=== PATIENT | male | born 1960 | race Caucasian/White ===

== ENCOUNTER 2024-10-29 10:02 | Outpatient (CLI) | payer MEDICARE, MEDICAID, SELFPAY ==
--- OUTSIDE RECORDS SUMMARY | 2024-09-30 15:29 | XMS_ITS | Encounter Summary ---
Author Organization Healthcare Address [address] [place] [address] Care Team Providers Care Transcription Name Role Phone Leonard Botello MD Primary Care Provider [phone] Minnie Penn RN Unavailable Unavailab le Reason for Visit * Reason Comments Medical Evaluation * Auth/Cert (Routine) Specialty Diagnoses / Procedures Referred By Contac t Referred To Contact Diagnoses ESRD (end stage renal disease) ([facility]) Noncompliance by refusing service Tana Wooten MD [address] [place] [address] Phone: tel: fax: [facility] [address] [place] [address] Phone: tel: Referral ID Status Reason Start Date Expiration Date Visits Re quested Visits Authorized [id number] 1 1 Encounter Details Date Type Department Care Team (Latest Contact Info) Description 09/30/2024 3:29 PM EDT - 10/21/2024 3:10 PM EDT Hospital Encounter [facility] [address] [place] [address] Lesvia Adrian MD [address] [place] [address] Tana Wooten MD [address] [place] [address] Leda Gaitan MD [address] [place] [address] Lamont Brumfield MD [address] [place] [address] Jeannie Valle MD [address] [place] [address] ESRD (end stage renal disease) ([facility]) (Primary Dx); Noncompliance by refusing service; ESRD (end stage renal disease) on dialysis ([facility]); Declining functional status [facility] [...] place to sleep or slept in a fpc (including now)? No 04/17/2023 Humiliation, Afraid, Rape, [...] any time in the past 12 m [facility], were you homeless or living in a fpc (including now)? 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) to steady your nerves or to get [...] Attempts (Lifetime) No 4:57 PM EDT Maxine Nuñez RN Aborted or Self-Interrupted Attempt (Lifetime) No [...] needs identified Patient/Family Anticipated Services at Transition: detention Patient/Family Anticipates Transition to: long-term care facility Taken 10/21/2024 0914 by Birdie Damico RN Current Discharge Risk: chronically ill cognitively impaired Patient's Choice of Community Agency(s): [facility] Problem: Skin Injury Risk Increased Goal: Skin [...] Glycemic Control Flowsheets (Taken 10/20/2024 1226 by pAril Merida, RN) Hyperglycemia Management: blood glucose monitored [...] PCP name and Address: Leonard Botello MD [address] [place] [address] Referring provider name and address: No referring provider defined for this encounter. Chief Concern, Brief History of Present Illness, and Hospital Course Per H and P; 64 y.o. male with past history of ESRD on HD MWF, T2DM, HTN, chronic HFrEF, PAD, HLD, IDD/dementia, depression/anxiety, insomnia, chronic HCV, DM foot ulcer c/b OM s/p bilateral transmetarsal amputation, and debility sent from his senior care to ED for medical evaluation after refusing care. Patient is extremely [place] and not wearing hearing aids limiting exam, therefore history obtained from chart review and Mariel (#[phone]) at his senior care. Unable to reach his legal guardian and brother, Chris Fernandez, at #[phone]. She reports that patient transferred a week ago to senior care after residing in a correction for the past year with an increased level of assist. Since arriving patient has been refusing dialysis, to eat, participate, or take his medications. Earlier todayhe missed HD, last session 3 days ago on 09/27/2024. The senior care believes he needs a higher level of [...] ESRD (end stage renal disease) on dialysis ([facility]) Essential (primary) hypertension Type 2 diabetes mellitus with chronic kidney disease on chronic dialysis ([facility]) Wears hearing aid in both ears At high risk for falls Insomnia, unspecified Chronic combined systolic (congestive) and diastolic (congestive) heart failure ([facility]) Dementia ([facility]) Chronic hepatitis C without hepatic coma ([facility]) Arterial insufficiency ([facility]) Gastroesophageal reflux disease without esophagitis Mixed hyperlipidemia Anxiety and depression Mild intellectual disabilities Sensorineural hearing loss, bilateral * (Principal) Declining functional status History of transmetatarsal amputation of foot ([facility]) Electrolyte and fluid disorder Anemia in chronic kidney disease (CODE) Chronic kidney disease-mineral and bone disorder (CKD-MBD) 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 ESRD (end stage renal disease) ([facility]) Aakash Fernandez is a [place] 64 y.o. male with past history of ESRD on HD MWF, T2DM, HTN, chronic HFrEF, PAD, HLD, IDD/dementia, depression/anxiety, insomnia, chronic HCV, DM foot ulcer c/b OM s/p bilateral transmetarsal amputation, and debility sent from his senior care to ED for medical evaluationafter refusing care. Declining functional status - Transferred to senior care a week ago and since arrival refusing HD, to eat, participate, or take medications - sent to ED for medical evaluation and need for higher level of assist/unable to care for self/non-compliance - afebrile, VSS, no acute complaints PLAN - PT/OT consult re: placement - legal guardian is his brother, Chris Fernandez, #[phone] (not answering calls since patient admission) Essential (primary) hypertension - increased carvedilol to 25 mg twice daily, nifedipine XL 60 mg daily (hold for BP <120/80 on dialysis days) At high risk for falls - wheelchair dependent, fall precautions ESRD (end stage renal disease) on dialysis ([facility]) - HD (MWF) - renally dose meds based on EGFR - strict I/O, daily weight Electrolyte and fluid disorder Hyponatremia Chronic kidney disease-mineral and bone disorder (CKD-MBD) - continue Renvela 800 mg TID with meals Anemia in chronic kidney disease (CODE) - Hgb stable, transfuse to keep >7 Type 2 diabetes mellitus with chronic kidney disease on chronic dialysis ([facility]) - last A1c 6.3 PLAN - will dc SSI given minimal Insulin need Dementia ([facility]) - Psych recommended; Asenapine 3.8 mg daily [...] melatonin 3 mg at bedtime Arterial insufficiency ([facility]) - continue aspirin 81 mg daily, clopidogrel [...] systolic (congestive) and diastolic (congestive) heart failure ([facility]) - ECHO 06/27/2022: EF 45%, abnormal diastolic dysfunction - strict I/O, 2 L fluid restriction, cardiac/renal/CCHO2 diet Chronic hepatitis C without hepatic coma ([facility]) - HCV RNA PCR not detected 07/13/2023 History of transmetatarsal amputation of foot ([facility]) - chronic OM 2/2 DM foot ulcers s/p bilateral transmetarsal amputation Dispo : Discharge to [facility] today and transportation to/from [place] to outpatient HD arranged per CM. Getting [...] Note Mundo Fernandez 64 y.o. male CSN: [id number] Admission: 09/30/2024 3:29 PM Primary Problem: Declining functional status Primary Compound Filler: Primary Caregiver: Private caregiver Assistance Available at Discharge: Current Outpatient/Agency/Support Group: clinic(s), DME Availability of Care Givers (#Hours): 24 hours Family/Compound Filler(s) Willingness Assessed to care for patient at home: Yes Family/Compound Filler(s) Readiness Assessed to care for patient at home: Yes Housing Circumstances-Z Codes: Housing Circumstances (select all that apply): Low Income (101-300% Federal Poverty Guidlines) - Z596 Patient Referred to Financial or Community Resources: Discharge Facility/Level of Care Needs: Discharge Facility/Level of Care Needs: [facility] Facility Patient's Choice of Community Agency(s): Patient's Choice of Community Agency(s): [facility] Patient/Family Anticipated Services at Transition: Patient/Family Anticipated Services at Transition: detention DME/Equipment Needed after Discharge: Equipment Currently Used [...] with brother and guardian, Chris Fernandez. Follow-up: [facility] [phone] [address] [place] [address] Go on 10/21/2024 [facility] ([id number] D-TI) [phone] Online [address] [place] [address] Go on 10/23/2024 First HD session at [...] to discharge today. Accepted for LTC by [facility]. Patient brother, legal guardian, Chris Fernandez aware and agrees with discharge and facility. Patient to receive HD (3.5 hr session) today at 0900 before discharge. Beginning Monday10/23/24 patient is scheduled to receive HD at 10:20 every Monday, Monday, and Monday. Facility staff working on setting up transportation to and from HD sessions. Krystyna barrera bedside hot die picker today at 1400. Call report [phone] CM will fax DCS [phone] Escribe controlled meds only to [facility]. CM will continue to follow for dc planning needs. Birdie Damico, TRISTIN * Consults - Gabriele Vanegas - 10/20/2024 5:30 PM EDT Pastoral Care Note [employer] Beauty Advisor visited with Aakash at bedside after consulting with nurse. Aakash's nurse shared he has been down and discouraged with being in the hospital so long. Aakash shared with [employer] Beauty Advisor that he wants to go to another hospital. Aakash has difficulty hearing, [employer] Beauty Advisor was speaking loudly but Aakash respondedwell at first then appeared confused, he pushed call button for nurse. He was able to hear nurse oncall button and the tv but appeared confused or possible scared by [employer] Beauty Advisor. [employer] Beauty Advisor then excused himself, Aakash expressed appreciation. [...] Ongoing, Progressing Intervention: Promote Activity and Functional [place] Flowsheets (Taken 10/20/2024 1226) Activity Assistance Provided: [...] from the original note were not included. [facility] Inpatient Progress Note Patient: Mundo Fernandez [...] Assessment and Plan: Aakash Fernandez is a [place] 64 y.o. male with past history of ESRD on HD MWF, T2DM, HTN, chronic HFrEF, PAD, HLD, IDD/dementia, depression/anxiety, insomnia, chronic HCV, DM foot ulcer c/b OM s/p bilateral transmetarsal amputation, and debility sent from his senior care to ED for medical evaluationafter refusing care. Declining functional status - Transferred to senior care a week ago and since arrival refusing HD, to eat, participate, or take medications - sent to ED for medical evaluation and need for higher level of assist/unable to care for self/non-compliance - afebrile, VSS, no acute complaints PLAN - PT/OT consult re: placement - legal guardian is his brother, Chris Fernandez, #[phone] (not answering calls since patient admission) Essential (primary) hypertension - increased carvedilol to 25 mg twice daily, nifedipine XL 60 mg daily (hold for BP <120/80 on dialysis days) At high risk for falls - wheelchair dependent, fall precautions ESRD (end stage renal disease) on dialysis ([facility]) - HD (MWF) - renally dose meds based on EGFR - strict I/O, daily weight Electrolyte and fluid disorder Hyponatremia Chronic kidney disease-mineral and bone disorder (CKD-MBD) - continue Renvela 800 mg TID with meals Anemia in chronic kidney disease (CODE) - Hgb stable, transfuse to keep >7 Type 2 diabetes mellitus with chronic kidney disease on chronic dialysis ([facility]) - last A1c 6.3 PLAN - will dc SSI given minimal Insulin need Dementia ([facility]) - Psych recommended; Asenapine 3.8 mg daily [...] melatonin 3 mg at bedtime Arterial insufficiency ([facility]) - continue aspirin 81 mg daily, clopidogrel [...] systolic (congestive) and diastolic (congestive) heart failure ([facility]) - ECHO 06/27/2022: EF 45%, abnormal diastolic dysfunction - strict I/O, 2 L fluid restriction, cardiac/renal/CCHO2 diet Chronic hepatitis C without hepatic coma ([facility]) - HCV RNA PCR not detected 07/13/2023 History of transmetatarsal amputation of foot ([facility]) - chronic OM 2/2 DM foot ulcers s/p bilateral transmetarsal amputation Dispo : pending placement. Per CM- at [facility] indicates patient has been approved for LTC pending [facility] chair. Primary CM/RN will need to arrange transportation to [facility] on Mondayand transportation to/from [place] to outpatient HD will have to be arranged as well. Pt may need to [facility] on Monday and then start outpatient HD on 10/23. [1] Current Facility-Administered Medications: acetaminophen (Tylenol) tablet 650 mg, 650 mg, Oral, q6h PRN, Lala Valdes, DIRECTOR CLINICAL APPLICATIONS, 650 mg at 10/18/242099 aspirin chewable tablet 81 mg, 81 mg, Oral, Daily, Lala Valdes, DIRECTOR CLINICAL APPLICATIONS, 81 mg at 10/20/24919 atorvastatin (Lipitor) tablet 40 mg, 40 mg, Oral, Nightly, Lala Valdes, DIRECTOR CLINICAL APPLICATIONS, 40 mg at 10/19/242013 bisacodyl (Dulcolax) EC tablet 10 mg, 10 mg, Oral, Daily PRN, Lala Valdes DIRECTOR CLINICAL APPLICATIONS, 10 mg at 10/17/24 08 cadexomer iodine (Iodosorb) 0.9 % gel, , Topical, Daily, Tana Wooten MD, Given at 10/19/24821 carvedilol (Coreg) tablet 25 mg, 25 mg, Oral, BID, Leda Gaitan MD, 25 mg at 10/20/24 09 clopidogrel (Plavix) tablet 75 mg, 75 mg, Oral, Daily, Lala Valdes DIRECTOR CLINICAL APPLICATIONS, 75 mg at 10/20/24 09 glucose (Glutose) 40 % oral gel 15-30 grams of glucose, 15-30 grams of glucose, Sublingual, q15 minPRN OR dextrose 10 % (D10W) bolus 125 mL, 125 mL, Intravenous, q15 min PRN OR dextrose 10 %(D10W) bolus 250 mL, 250 mL, Intravenous, q15 min PRN OR glucagon (human recombinant) injection1 mg, 1 mg, Intramuscular, q15 min PRN, Lala Valdes, DIRECTOR CLINICAL APPLICATIONS divalproex sprinkle (Depakote Sprinkle) DR capsule 250 mg, 250 mg, Oral, BID, Lala Valdes, DIRECTOR CLINICAL APPLICATIONS,250 mg at 10/20/24 09 heparin (porcine) injection 5,000 Units, 5,000 Units, Subcutaneous, q8h RAFAT, Lala Valdes DIRECTOR CLINICAL APPLICATIONS, 5,000 Units at 10/19/242014 melatonin tablet 3 mg, 3 mg, Oral, Nightly, Laith Valdesana B, DIRECTOR CLINICAL APPLICATIONS, 3 mg at 10/19/242013 NIFEdipine XL (Procardia XL) 24 hr tablet 60 mg, 60 mg, Oral, Daily, Leda Gaitan MD, 60 mg at 10/20/24919 polyethylene glycol (Miralax) packet 17 g, 17 g, Oral, BID, Lucio Gitana B, DIRECTOR CLINICAL APPLICATIONS, 17 g at 10/20/24919 senna (Senokot) tablet 17.2 mg, 17.2 mg, Oral, Nightly, Lucio, Gitana B, DIRECTOR CLINICAL APPLICATIONS, 17.2 mg at 10/19/242055 sertraline (Zoloft) tablet 75 mg, 75 mg, Oral, Daily, Lucio, Gitana B, DIRECTOR CLINICAL APPLICATIONS, 75 mg at 10/20/24919 Insert peripheral IV, , , Once AND Saline lock IV, , , Once AND sodium chloride 0.9 % flush10 mL, 10 mL, Intravenous, q12h, 10 mL at 10/13/24 175 AND sodium chloride 0.9 % flush 10 mL, 10 mL, Intravenous, PRN, Lucio, Gitana B, DIRECTOR CLINICAL APPLICATIONS traZODone (Desyrel) tablet 100 mg, 100 mg, Oral, Nightly, Lucio, Gitana B, DIRECTOR CLINICAL APPLICATIONS, 100 mg at 10/19/242013 Facility-Administered Medications Ordered in Other Encounters: lidocaine-EPINEPHrine (PF) (Xylocaine W/EPI) 1 %-1:237409 injection - Pyxis Override Pull, , , , lidocaine-EPINEPHrine (PF) (Xylocaine W/EPI) 1 %-1:291017 injection - Pyxis Override Pull, , , [...] Ongoing, Progressing Intervention: Promote Activity and Functional [place] Flowsheets (Taken 10/19/20242139) Activity Assistance Provided: assistance, [...] from the original note were not included. [facility] Medicine Inpatient Progress Note Patient: Mundo Fernandez [...] Assessment and Plan: Aakash Fernandez is a [place] 64 y.o. male with past history of ESRD on HD MWF, T2DM, HTN, chronic HFrEF, PAD, HLD, IDD/dementia, depression/anxiety, insomnia, chronic HCV, DM foot ulcer c/b OM s/p bilateral transmetarsal amputation, and debility sent from his senior care to ED for medical evaluationafter refusing care. Declining functional status - Transferred to senior care a week ago and since arrival refusing HD, to eat, participate, or take medications - sent to ED for medical evaluation and need for higher level of assist/unable to care for self/non-compliance - afebrile, VSS, no acute complaints PLAN - PT/OT consult re: placement - legal guardian is his brother, Chris Fernandez, #[phone] (not answering calls since patient admission) Essential (primary) hypertension - increased carvedilol to 25 mg twice daily, nifedipine XL 60 mg daily (hold for BP <120/80 on dialysis days) At high risk for falls - wheelchair dependent, fall precautions ESRD (end stage renal disease) on dialysis ([facility]) - HD (MWF) - renally dose meds based on EGFR - strict I/O, daily weight Electrolyte and fluid disorder Hyponatremia Chronic kidney disease-mineral and bone disorder (CKD-MBD) - continue Renvela 800 mg TID with meals Anemia in chronic kidney disease (CODE) - Hgb stable, transfuse to keep >7 Type 2 diabetes mellitus with chronic kidney disease on chronic dialysis ([facility]) - last A1c 6.3 PLAN - will dc SSI given minimal Insulin need Dementia ([facility]) - Psych recommended; Asenapine 3.8 mg daily [...] melatonin 3 mg at bedtime Arterial insufficiency ([facility]) - continue aspirin 81 mg daily, clopidogrel [...] systolic (congestive) and diastolic (congestive) heart failure ([facility]) - ECHO 06/27/2022: EF 45%, abnormal diastolic dysfunction - strict I/O, 2 L fluid restriction, cardiac/renal/CCHO2 diet Chronic hepatitis C without hepatic coma (CMS/HCC) - HCV RNA PCR not detected 07/13/2023 History of transmetatarsal amputation of foot (CMS/HCC) - chronic OM 2/2 DM foot ulcers s/p bilateral transmetarsal amputation Dispo : pending placement. Per CM- at [facility] indicates patient has been approved for LTC pending [facility] chair. Primary CM/RN will need to arrange transportation to [facility] on Mondayand transportation to/from [place] to outpatient HD will have to be arranged as well. [facility] and then start outpatient HD on 10/23. [1] Current Facility-Administered Medications: acetaminophen (Tylenol) tablet 650 mg, 650 mg, Oral, q6h PRN, Lala Valdes, DIRECTOR CLINICAL APPLICATIONS, 650 mg at 10/18/24 2100 aspirin chewable tablet 81 mg, 81 mg, Oral, Daily, Lala Valdes B, DIRECTOR CLINICAL APPLICATIONS, 81 mg at 10/19/24 0820 atorvastatin (Lipitor) tablet 40 mg, 40 mg, Oral, Nightly, Lala Valdes, DIRECTOR CLINICAL APPLICATIONS, 40 mg at 10/18/24 2100 bisacodyl (Dulcolax) EC tablet 10 mg, 10 mg, Oral, Daily PRN, Lala Valdes B, DIRECTOR CLINICAL APPLICATIONS, 10 mg at 10/17/24 0843 cadexomer iodine (Iodosorb) 0.9 % gel, , Topical, Daily, Tana Wooten MD, Given at 10/19/24 0822 carvedilol (Coreg) tablet 25 mg, 25 mg, Oral, BID, Leda Gaitan MD, 25 mg at 10/19/24 0820 clopidogrel (Plavix) tablet 75 mg, 75 mg, Oral, Daily, Lala Valdes, DIRECTOR CLINICAL APPLICATIONS, 75 mg at 10/19/24 0820 glucose (Glutose) [...] Intramuscular, q15 min PRN, Lala Valdes B, DIRECTOR CLINICAL APPLICATIONS divalproex sprinkle (Depakote Sprinkle) DR capsule 250 mg, 250 mg, Oral, BID, Lala Valdes, DIRECTOR CLINICAL APPLICATIONS,250 mg at 10/19/24 0820 heparin (porcine) injection 5,000 Units, 5,000 Units, Subcutaneous, q8h RAFAT, Lala Valdes B, DIRECTOR CLINICAL APPLICATIONS, 5,000 Units at 10/19/24 1323 melatonin tablet 3 mg, 3 mg, Oral, Nightly, Laith Valdesana B, DIRECTOR CLINICAL APPLICATIONS, 3 mg at 10/18/24 2100 NIFEdipine XL (Procardia XL) 24 hr tablet 60 mg, 60 mg, Oral, Daily, Leda Gaitan MD, 60 mg at 10/19/24 0820 polyethylene glycol (Miralax) packet 17 g, 17 g, Oral, BID, Lala Valdes, DIRECTOR CLINICAL APPLICATIONS, 17 g at 10/19/24 0820 senna (Senokot) tablet 17.2 mg, 17.2 mg, Oral, Nightly PRN, Lala Valdes, DIRECTOR CLINICAL APPLICATIONS, 17.2 mg at 10/16/24 2030 sertraline (Zoloft) tablet 75 mg, 75 mg, Oral, Daily, Lala Valdes, DIRECTOR CLINICAL APPLICATIONS, 75 mg at 10/19/24 0821 Insert peripheral IV, , , Once AND Saline lock IV, , , Once AND sodium chloride 0.9 % flush10 mL, 10 mL, Intravenous, q12h, 10 mL at 10/13/24 1759 AND sodium chloride 0.9 % flush 10 mL, 10 mL, Intravenous, PRN, Laith Valdesana B, DIRECTOR CLINICAL APPLICATIONS traZODone (Desyrel) tablet 100 mg, 100 mg, Oral, Nightly, Lala Valdes B, DIRECTOR CLINICAL APPLICATIONS, 100 mg at 10/18/24 2101 Facility-Administered Medications Ordered in Other Encounters: lidocaine-EPINEPHrine (PF) (Xylocaine W/EPI) 1 %-1:282399 injection - Pyxis Override Pull, , , , lidocaine-EPINEPHrine (PF) (Xylocaine W/EPI) 1 %-1:291978 injection - Pyxis Override Pull, , , [...] Ongoing, Progressing Intervention: Promote Activity and Functional [place] Flowsheets (Taken 10/19/2024 1154) Activity Assistance Provided: [...] Note Mundo Fernandez 64 y.o. male CSN: [id number] Admission: 09/30/2024 3:29 PM Primary Problem: Declining functional status Renal SW finalized pt's outpatient HD arrangements. Pt can start with [facility] on Monday, Oct 21 and will need to arrive there at 10:20 AM for admission paperwork. See details below. HD letter emailed to primary CM to give to pt upon discharge. UPDATE: Primary CM/RN will need to arrange transportation to [facility] on Monday and transportation to/from [place] to outpatient HD will have to be arranged as well. Pt may need to get HD at [facility] on Monday and then start outpatient HD on 10/23. SAMUEL Augustin Yard Operator * Progress Notes - Jeannie Valle MD - 10/18/2024 2:20 PM EDT Images from the original note were not included. [facility] Medicine Inpatient Progress Note Patient: Mundo Fernandez [...] Assessment and Plan: Aakash Fernandez is a [place] 64 y.o. male with past history of ESRD on HD MWF, T2DM, HTN, chronic HFrEF, PAD, HLD, IDD/dementia, depression/anxiety, insomnia, chronic HCV, DM foot ulcer c/b OM s/p bilateral transmetarsal amputation, and debility sent from his senior care to ED for medical evaluationafter refusing care. Declining functional status - Transferred to senior care a week ago and since arrival refusing HD, to eat, participate, or take medications - sent to ED for medical evaluation and need for higher level of assist/unable to care for self/non-compliance - afebrile, VSS, no acute complaints PLAN - PT/OT consult re: placement - legal guardian is his brother, Chris Fernandez, #[phone] (not answering calls since patient admission) Essential (primary) hypertension - increased carvedilol to 25 mg twice daily, nifedipine XL 60 mg daily (hold for BP <120/80 on dialysis days) At high risk for falls - wheelchair dependent, fall precautions ESRD (end stage renal disease) on dialysis ([facility]) - HD (MWF) - renally dose meds based on EGFR - strict I/O, daily weight Electrolyte and fluid disorder Hyponatremia Chronic kidney disease-mineral and bone disorder (CKD-MBD) - continue Renvela 800 mg TID with meals Anemia in chronic kidney disease (CODE) - Hgb stable, transfuse to keep >7 Type 2 diabetes mellitus with chronic kidney disease on chronic dialysis ([facility]) - last A1c 6.3 PLAN - will dc SSI given minimal Insulin need Dementia ([facility]) - Psych recommended; Asenapine 3.8 mg daily [...] Dispo : pending placement. Per CM- at [facility] indicates patient has been approved for LTC pending [facility] chair. [facility] [phone] is requesting a CXR, TB clearence, Hepatitis B Total Core Antibody (HbcAb) [1] Current Facility-Administered Medications: acetaminophen (Tylenol) tablet 650 mg, 650 mg, Oral, q6h PRN, Lala Valdes, DIRECTOR CLINICAL APPLICATIONS, 650 mg at 10/17/242012 aspirin chewable tablet 81 mg, 81 mg, Oral, Daily, Lala Valdes, DIRECTOR CLINICAL APPLICATIONS, 81 mg at 10/18/24 1318 atorvastatin (Lipitor) tablet 40 mg, 40 mg, Oral, Nightly, Lala Valdes, DIRECTOR CLINICAL APPLICATIONS, 40 mg at 10/17/242013 bisacodyl (Dulcolax) EC tablet 10 mg, 10 mg, Oral, Daily PRN, Lala Valdes, DIRECTOR CLINICAL APPLICATIONS, 10 mg at 10/17/24 0843 cadexomer iodine (Iodosorb) 0.9 % gel, , Topical, Daily, Tana Wooten MD, Given at 10/18/24 1330 carvedilol (Coreg) tablet 25 mg, 25 mg, Oral, BID, Leda Gaitan MD, 25 mg at 10/18/24 1318 clopidogrel (Plavix) tablet 75 mg, 75 mg, Oral, Daily, Lala Valdes DIRECTOR CLINICAL APPLICATIONS, 75 mg at 10/18/24 1320 glucose (Glutose) [...] mg, 250 mg, Oral, BID, Lala Valdes, DIRECTOR CLINICAL APPLICATIONS,250 mg at 10/18/24 1318 heparin (porcine) injection 5,000 Units, 5,000 Units, Subcutaneous, q8h RAFAT, Lala Valdes DIRECTOR CLINICAL APPLICATIONS, 5,000 Units at 10/18/24 1333 melatonin tablet 3 mg, 3 mg, Oral, Nightly, Lala Valdes APRN, 3 mg at 10/17/242013 NIFEdipine XL (Procardia XL) 24 hr tablet 60 mg, 60 mg, Oral, Daily, Leda Gaitan MD, 60 mg at 10/18/24 1318 polyethylene glycol (Miralax) packet 17 g, 17 g, Oral, BID, Lala Valdes DIRECTOR CLINICAL APPLICATIONS, 17 g at 10/18/24 1317 senna (Senokot) tablet 17.2 mg, 17.2 mg, Oral, Nightly PRN, Lala Valdes DIRECTOR CLINICAL APPLICATIONS, 17.2 mg at 10/16/24 2030 sertraline (Zoloft) tablet 75 mg, 75 mg, Oral, Daily, Lala Valdes DIRECTOR CLINICAL APPLICATIONS, 75 mg at 10/18/24 1317 Insert peripheral IV, , , Once AND Saline lock IV, , , Once AND sodium chloride 0.9 % flush10 mL, 10 mL, Intravenous, q12h, 10 mL at 10/13/24 1759 AND sodium chloride 0.9 % flush 10 mL, 10 mL, Intravenous, PRN, Lala Valdes, DIRECTOR CLINICAL APPLICATIONS traZODone (Desyrel) tablet 100 mg, 100 mg, Oral, Nightly, Lala Valdes, DIRECTOR CLINICAL APPLICATIONS, 100 mg at 10/17/242012 Facility-Administered Medications Ordered [...] Ongoing, Progressing Intervention: Promote Activity and Functional [place] Flowsheets (Taken 10/18/2024 1230) Activity Assistance Provided: [...] bilateral transmetarsal amputation, and debility presented to [facility] on 09/30 after refusing care at his senior care. Nephrology consulted for dialysis. Assessment: #ESRD on iHD - MWF at [facility] Dr. Lucas - AccesS: RUAngel AVG - [...] from the original note were not included. [facility] Inpatient Progress Note Patient: Mundo Frenandez PCP: Leonard Botello MD Date: 10/17/2024 Subjective [...] written report. Preliminary report signed by Seng Matrinez MD on 10/17/2024 2:39 PM By electronically signing this report, I, the attending physician, attest that I have personally reviewed the images/data for the above examination(s) and agree with the final edited report. Drafted by Seng Martinez MD on 10/17/2024 2:37 PM Final report signed by Fortunato Willett MD on 10/17/2024 2:49 PM REVIEW OF PROCEDURES Assessment and Plan: Aakash Fernandez is a [place] 64 y.o. male with past history of ESRD on HD MWF, T2DM, HTN, chronic HFrEF, PAD, HLD, IDD/dementia, depression/anxiety, insomnia, chronic HCV, DM foot ulcer c/b OM s/p bilateral transmetarsal amputation, and debility sent from his senior care to ED for medical evaluationafter refusing care. Declining functional status - Transferred to senior care a week ago and since arrival refusing HD, to eat, participate, or take medications - sent to ED for medical evaluation and need for higher level of assist/unable to care for self/non-compliance - afebrile, VSS, no acute complaints PLAN - PT/OT consult re: placement - legal guardian is his brother, Chris Fernandez, #[phone] (not answering calls since patient admission) Essential (primary) hypertension - increased carvedilol to 25 mg twice daily, nifedipine XL 60 mg daily (hold for BP <120/80 on dialysis days) At high risk for falls - wheelchair dependent, fall precautions ESRD (end stage renal disease) on dialysis ([facility]) - HD (MWF) - renally dose meds based on EGFR - strict I/O, daily weight Electrolyte and fluid disorder Hyponatremia Chronic kidney disease-mineral and bone disorder (CKD-MBD) - continue Renvela 800 mg TID with meals Anemia in chronic kidney disease (CODE) - Hgb stable, transfuse to keep >7 Type 2 diabetes mellitus with chronic kidney disease on chronic dialysis ([facility]) - last A1c 6.3 PLAN - will dc SSI given minimal Insulin need Dementia ([facility]) - Psych recommended; Asenapine 3.8 mg daily [...] melatonin 3 mg at bedtime Arterial insufficiency ([facility]) - continue aspirin 81 mg daily, clopidogrel [...] systolic (congestive) and diastolic (congestive) heart failure ([facility]) - ECHO 06/27/2022: EF 45%, abnormal diastolic dysfunction - strict I/O, 2 L fluid restriction, cardiac/renal/CCHO2 diet Chronic hepatitis C without hepatic coma ([facility]) - HCV RNA PCR not detected 07/13/2023 History of transmetatarsal amputation of foot ([facility]) - chronic OM 2/2 DM foot ulcers s/p bilateral transmetarsal amputation Dispo : pending placement. Per CM- at [facility] indicates patient has been approved for LTC pending [facility] chair. [facility] [phone] is requesting a CXR, TB clearence, Hepatitis B Total Core Antibody (HbcAb) [1] Current Facility-Administered Medications: acetaminophen (Tylenol) tablet 650 mg, 650 mg, Oral, q6h PRN, Lucio, Gitana B, DIRECTOR CLINICAL APPLICATIONS aspirin chewable tablet 81 mg, 81 mg, Oral, Daily, Lucio, Gitana B, DIRECTOR CLINICAL APPLICATIONS, 81 mg at 10/17/24 0843 atorvastatin (Lipitor) tablet 40 mg, 40 mg, Oral, Nightly, Lucio, Gitana B, DIRECTOR CLINICAL APPLICATIONS, 40 mg at 10/16/24 2030 bisacodyl (Dulcolax) EC tablet 10 mg, 10 mg, Oral, Daily PRN, Lucio, Gitana B, DIRECTOR CLINICAL APPLICATIONS, 10 mg at 10/17/24 0843 cadexomer iodine (Iodosorb) 0.9 % gel, , Topical, Daily, Tana Wooten MD, Given at 10/16/24 1313 carvedilol (Coreg) tablet 25 mg, 25 mg, Oral, BID, Leda Gaitan MD, 25 mg at 10/17/24 0843 clopidogrel (Plavix) tablet 75 mg, 75 mg, Oral, Daily, Lucio, Gitana B, DIRECTOR CLINICAL APPLICATIONS, 75 mg at 10/17/24 0842 glucose (Glutose) [...] Intramuscular, q15 min PRN, Lucio, Gitana B, DIRECTOR CLINICAL APPLICATIONS divalproex sprinkle (Depakote Sprinkle) DR capsule 250 mg, 250 mg, Oral, BID, Lucio, Gitana B, DIRECTOR CLINICAL APPLICATIONS,250 mg at 10/17/24 0843 heparin (porcine) injection 5,000 Units, 5,000 Units, Subcutaneous, q8h RAFAT, Lucio, Gitana B, DIRECTOR CLINICAL APPLICATIONS, 5,000 Units at 10/17/24 1426 melatonin tablet 3 mg, 3 mg, Oral, Nightly, Lucio, Gitana B, DIRECTOR CLINICAL APPLICATIONS, 3 mg at 10/16/242029 NIFEdipine XL (Procardia XL) 24 hr tablet 60 mg, 60 mg, Oral, Daily, Leda Gaitan MD, 60 mg at 10/17/24 0843 polyethylene glycol (Miralax) packet 17 g, 17 g, Oral, BID, Lucio Gitana B, DIRECTOR CLINICAL APPLICATIONS, 17 g at 10/17/24 0843 senna (Senokot) tablet 17.2 mg, 17.2 mg, Oral, Nightly PRN, Lala Valdes B, DIRECTOR CLINICAL APPLICATIONS, 17.2 mg at 10/16/242029 sertraline (Zoloft) tablet 75 mg, 75 mg, Oral, Daily, Lala Valdes, DIRECTOR CLINICAL APPLICATIONS, 75 mg at 10/17/24 0842 Insert peripheral IV, , , Once AND Saline lock IV, , , Once AND sodium chloride 0.9 % flush10 mL, 10 mL, Intravenous, q12h, 10 mL at 10/13/24 1759 AND sodium chloride 0.9 % flush 10 mL, 10 mL, Intravenous, PRN, Lucio, Gitana B, DIRECTOR CLINICAL APPLICATIONS traZODone (Desyrel) tablet 100 mg, 100 mg, Oral, Nightly, Lala Valdes, DIRECTOR CLINICAL APPLICATIONS, 100 mg at 10/16/242029 Facility-Administered Medications Ordered in Other Encounters: lidocaine-EPINEPHrine (PF) (Xylocaine W/EPI) 1 %-1:471319 injection - Pyxis Override Pull, , , , lidocaine-EPINEPHrine (PF) (Xylocaine W/EPI) 1 %-1:718508 injection - Pyxis Override Pull, , , , [2] No Known Allergies * Progress Notes - Birdie Damico RN - 10/17/2024 1:17 PM EDT Brooke, admissions liaison at [facility] re[facility] indicates patient has been approved for LTC pending [facility] chair. [facility] [phone] is requesting a CXR, TB clearence,Hepatitis B [...] Flowsheets (Taken 10/17/2024 1142) Current Outpatient/Agency/Support Group: senior care Readmission Within the Last 30 Days: unable [...] ESRD (end stage renal disease) on dialysis ([facility]/HCC) Essential (primary) hypertension Type 2 diabetes mellitus with chronic kidney disease on chronic dialysis ([facility]/HCC) Wears hearing aid in both ears At high risk for falls Insomnia, unspecified Chronic combined systolic (congestive) and diastolic (congestive) heart failure (CMS/HCC) Dementia ([facility]/HCC) Chronic hepatitis C without hepatic coma ([facility]/HCC) Arterial insufficiency (CMS/HCC) Gastroesophageal reflux disease without esophagitis Mixed hyperlipidemia Anxiety and depression Mild intellectual disabilities Sensorineural hearing loss, bilateral History of transmetatarsal amputation of foot (CMS/HCC) Electrolyte and fluid disorder Anemia in chronic kidney disease (CODE) 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 Nephrology consulted for dialysis. Assessment: #ESRD on iHD - MWF at [facility] [address] Dr[address] Lucas - AccesS: ISAURO [...] Ongoing, Progressing Intervention: Promote Activity and Functional [place] Flowsheets Taken 10/16/20242319 Self-Care Promotion: independence encouraged [...] Ongoing, Progressing Intervention: Promote Activity and Functional [place] Flowsheets (Taken 10/16/2024 1535) Activity Assistance Provided: [...] Note Mundo Fernandez 64 y.o. male CSN: [id number] Admission: 09/30/2024 3:29 PM Primary Problem: Declining functional status CM received message from [facility] admissions liaison stating patient has been approved for admission pending getting an established HD chair. HD social work assistant made aware. HD referral sent to [facility] with tracking number [id number]. CM will continue to follow and will arrange discharge transportation when needed. Birdie Damico RN * Progress Notes - Jeannie Valle MD - 10/16/2024 1:22 PM EDT Images from the original note were not included. [facility] Medicine Inpatient Progress Note Patient: Mundo Fernandez [...] Assessment and Plan: Aakash Fernandez is a [place] 64 y.o. male with past history of ESRD on HD MWF, T2DM, HTN, chronic HFrEF, PAD, HLD, IDD/dementia, depression/anxiety, insomnia, chronic HCV, DM foot ulcer c/b OM s/p bilateral transmetarsal amputation, and debility sent from his senior care to ED for medical evaluationafter refusing care. Declining functional status - Transferred to senior care a week ago and since arrival refusing HD, to eat, participate, or take medications - sent to ED for medical evaluation and need for higher level of assist/unable to care for self/non-compliance - afebrile, VSS, no acute complaints PLAN - PT/OT consult re: placement - legal guardian is his brother, Chris Fernandez, #[phone] (not answering calls since patient admission) Essential (primary) hypertension - increased carvedilol to 25 mg twice daily, nifedipine XL 60 mg daily (hold for BP <120/80 on dialysis days) At high risk for falls - wheelchair dependent, fall precautions ESRD (end stage renal disease) on dialysis ([facility]) - HD (MWF) - renally dose meds based on EGFR - strict I/O, daily weight Electrolyte and fluid disorder Hyponatremia Chronic kidney disease-mineral and bone disorder (CKD-MBD) - continue Renvela 800 mg TID with meals Anemia in chronic kidney disease (CODE) - Hgb stable, transfuse to keep >7 Type 2 diabetes mellitus with chronic kidney disease on chronic dialysis ([facility]) - last A1c 6.3 PLAN - will dc SSI given minimal Insulin need Dementia ([facility]) - Psych recommended; Asenapine 3.8 mg daily [...] melatonin 3 mg at bedtime Arterial insufficiency ([facility]) - continue aspirin 81 mg daily, clopidogrel [...] systolic (congestive) and diastolic (congestive) heart failure ([facility]) - ECHO 06/27/2022: EF 45%, abnormal diastolic dysfunction - strict I/O, 2 L fluid restriction, cardiac/renal/CCHO2 diet Chronic hepatitis C without hepatic coma ([facility]) - HCV RNA PCR not detected 07/13/2023 History of transmetatarsal amputation of foot ([facility]) - chronic OM 2/2 DM foot ulcers s/p bilateral transmetarsal amputation Dispo : pending placement. [1] Current Facility-Administered Medications: acetaminophen (Tylenol) tablet 650 mg, 650 mg, Oral, q6h PRN, Lala Valdes B, DIRECTOR CLINICAL APPLICATIONS alteplase (Cathflo Activase) injection 4 mg, 4 [...] mg, 40 mg, Oral, Nightly, Lala Valdes DIRECTOR CLINICAL APPLICATIONS, 40 mg at 10/15/242036 bisacodyl (Dulcolax) EC [...] mg, 250 mg, Oral, BID, Lala Valdes DIRECTOR CLINICAL APPLICATIONS,250 mg at 10/16/24 1313 heparin (porcine) injection 5,000 Units, 5,000 Units, Subcutaneous, q8h RAFAT, Lala Valdes APRN, 5,000 Units at 10/16/24 1317 melatonin tablet 3 mg, 3 mg, Oral, Nightly, Lucio, Gitana B, DIRECTOR CLINICAL APPLICATIONS, 3 mg at 10/15/242036 NIFEdipine XL (Procardia XL) 24 hr tablet 60 mg, 60 mg, Oral, Daily, Leda Gaitan MD, 60 mg at 10/16/241312 polyethylene glycol (Miralax) packet 17 g, 17 g, Oral, BID, Lucio, Gitana B, DIRECTOR CLINICAL APPLICATIONS, 17 g at 10/16/241312 senna (Senokot) tablet 17.2 mg, 17.2 mg, Oral, Nightly PRN, Lucio, Gitana B, DIRECTOR CLINICAL APPLICATIONS, 17.2 mg at 10/15/242146 sertraline (Zoloft) tablet 75 mg, 75 mg, Oral, Daily, Lucio, Gitana B, DIRECTOR CLINICAL APPLICATIONS, 75 mg at 10/16/241312 Insert peripheral IV, , , Once AND Saline lock IV, , , Once AND sodium chloride 0.9 % flush10 mL, 10 mL, Intravenous, q12h, 10 mL at 10/13/24 1759 AND sodium chloride 0.9 % flush 10 mL, 10 mL, Intravenous, PRN, Lucio, Gitana B, DIRECTOR CLINICAL APPLICATIONS sodium citrate anticoagulant 4 % flush 6 mL, 6 mL, Intracatheter, PRN, Rust, Daphne L, DIRECTOR CLINICAL APPLICATIONS, DNP sodium citrate anticoagulant 4 % flush 6 mL, 6 mL, Intracatheter, PRN, Rust, Daphne L, DIRECTOR CLINICAL APPLICATIONS, DNP sodium citrate anticoagulant 4 % flush 6 mL, 6 mL, Intracatheter, PRN, RustDaphne L, DIRECTOR CLINICAL APPLICATIONS, DNP traZODone (Desyrel) tablet 100 mg, 100 mg, Oral, Nightly, Lucio, Gitana B, DIRECTOR CLINICAL APPLICATIONS, 100 mg at 10/15/242036 Facility-Administered Medications Ordered in Other Encounters: lidocaine-EPINEPHrine (PF) (Xylocaine W/EPI) 1 %-1:337335 injection - Pyxis Override Pull, , , , lidocaine-EPINEPHrine (PF) (Xylocaine W/EPI) 1 %-1:465986 injection - Pyxis Override Pull, , , [...] bilateral transmetarsal amputation, and debility presented to [facility] on 09/30 after refusing care at his senior care. Nephrology consulted for dialysis. Assessment: #ESRD on iHD - MWF at [facility] [address] Lucas - AccesS: RUAngel [...] Ongoing, Progressing Intervention: Promote Activity and Functional [place] Flowsheets (Taken 10/16/2024229) Activity Assistance Provided: assistance, [...] 2:21 PM EDT CM followed up with [facility] liaisonBrooke and found they are [...] per week. CM sent referral to HD social work assistant to arrange HD chair near [place], [place]. CM will discuss transportation to and [...] Ongoing, Progressing Intervention: Promote Activity and Functional [place] Flowsheets (Taken 10/15/2024 141) Activity Assistance Provided: [...] Glucose 98 74 - 99 mg/dL Comment Marketing Professor ID Moisés Lopez Device ID [id number] Specimen Type POC Capillary POCT glucose meter Collection Time: 10/14/24 8:01 PM Result Value Ref Range POCT Glucose 186 (H) 74 - 99 mg/dL Comment Marketing Professor ID Matty Jeffries Device ID [id number] Specimen Type POC Capillary POCT glucose meter Collection Time: 10/15/24 8:04 AM Result Value Ref Range POCT Glucose 101 (H) 74 - 99 mg/dL Comment Marketing Professor ID Lio Gomez Device ID [id number] Specimen Type POC Capillary POCT glucose meter Collection Time: 10/15/24 12:06 PM Result Value Ref Range POCT Glucose 115 (H) 74 - 99 mg/dL Comment Marketing Professor ID Lio Gomez Device ID [id number] Specimen Type POC Capillary Encounter Date: 09/30/24 EKG now - STAT (adult) Result Value EKG DIAGNOSIS CLASS Abnormal Ventricular Rate 70 Atrial Rate 70 FL Interval 154 QRSD Interval 106 QT Interval 430 QTC Interval 464 P Blount 69 R Blount -23 T Wave Blount 5 Diagnosis Normal sinus rhythm Diagnosis Nonspecific [...] IDD/dementia, anxiety, and depression who presented to [facility] ED from facility (senior care) with concerns of non-adherence to medication regimen [...] to first call physician/provider: Dr. Valle via [employer] chat Patient staffed with attending, Dr. Jon [...] ESRD (end stage renal disease) on dialysis ([facility]) Essential (primary) hypertension Type 2 diabetes mellitus with chronic kidney disease on chronic dialysis ([facility]/HCC) Wears hearing aid in both ears At high risk for falls Insomnia, unspecified Chronic combined systolic (congestive) and diastolic (congestive) heart failure (CMS/HCC) Dementia ([facility]/HCC) Chronic hepatitis C without hepatic coma ([facility]/HCC) Arterial insufficiency ([facility]/HCC) BPH (benign prostatic hyperplasia) Diabetic peripheral neuropathy ([facility]/HCC) DM type 2 without retinopathy ([facility]/HCC) Gastroesophageal reflux disease without esophagitis Mixed hyperlipidemia [...] and midfoot limited to breakdown of skin ([facility]/HCC) ESRD (end stage renal disease) ([facility]) Cosigned by Yeny Webb DO at 10/16/2024 [...] 10/15/2024 9:25 AM Wound Image Wound Assessment [place];Granulation Margins Well-defined edges;Open Edges Sydni-Wound Assessment Clean;Dry;Calloused [...] from the original note were not included. [facility] Medicine Inpatient Progress Note Patient: Mundo Fernandez [...] Minimally verbal HENT: Head: Normocephalic. Comments: Very [place], some times sin actions help to communicate [...] Assessment and Plan: Aakash Fernandez is a [place] 64 y.o. male with past history of ESRD on HD MWF, T2DM, HTN, chronic HFrEF, PAD, HLD, IDD/dementia, depression/anxiety, insomnia, chronic HCV, DM foot ulcer c/b OM s/p bilateral transmetarsal amputation, and debility sent from his senior care to ED for medical evaluationafter refusing care. Declining functional status - Transferred to senior care a week ago and since arrival refusing HD, to eat, participate, or take medications - sent to ED for medical evaluation and need for higher level of assist/unable to care for self/non-compliance - afebrile, VSS, no acute complaints PLAN - PT/OT consult re: placement - legal guardian is his brother, Chris Fernandez, #[phone] (not answering calls since patient admission) Essential (primary) hypertension - increased carvedilol to 25 mg twice daily, nifedipine XL 60 mg daily (hold for BP <120/80 on dialysis days) At high risk for falls - wheelchair dependent, fall precautions ESRD (end stage renal disease) on dialysis ([facility]) - HD (MWF) - renally dose meds based on EGFR - strict I/O, daily weight Electrolyte and fluid disorder Hyponatremia Chronic kidney disease-mineral and bone disorder (CKD-MBD) - continue Renvela 800 mg TID with meals Anemia in chronic kidney disease (CODE) - Hgb stable, transfuse to keep >7 Type 2 diabetes mellitus with chronic kidney disease on chronic dialysis ([facility]) - last A1c 6.3 PLAN - will [...] mg, 81 mg, Oral, Daily, Lala Valdes, DIRECTOR CLINICAL APPLICATIONS, 81 mg at 10/15/24 09 atorvastatin (Lipitor) tablet 40 mg, 40 mg, Oral, Nightly, Lala Valdes, DIRECTOR CLINICAL APPLICATIONS, 40 mg at 10/14/242046 bisacodyl (Dulcolax) EC tablet 10 mg, 10 mg, Oral, Daily PRN, Lala Valdes, DIRECTOR CLINICAL APPLICATIONS, 10 mg at 10/15/24 0607 cadexomer iodine (Iodosorb) 0.9 % gel, , Topical, Daily, Tana Wooten MD, Given at 10/15/24 0911 carvedilol (Coreg) tablet 25 mg, 25 mg, Oral, BID, Leda Gaitan MD, 25 mg at 10/15/24 09 clopidogrel (Plavix) tablet 75 mg, 75 mg, Oral, Daily, Lala Valdes, DIRECTOR CLINICAL APPLICATIONS, 75 mg at 10/15/24 0911 glucose (Glutose) 40 % oral gel 15-30 grams of glucose, 15-30 grams of glucose, Sublingual, q15 minPRN OR dextrose 10 % (D10W) bolus 125 mL, 125 mL, Intravenous, q15 min PRN OR dextrose 10 %(D10W) bolus 250 mL, 250 mL, Intravenous, q15 min PRN OR glucagon (human recombinant) injection1 mg, 1 mg, Intramuscular, q15 min PRN, Lala Valdes, DIRECTOR CLINICAL APPLICATIONS divalproex sprinkle (Depakote Sprinkle) DR capsule 250 mg, 250 mg, Oral, BID, Lala Valdes DIRECTOR CLINICAL APPLICATIONS,250 mg at 10/15/24 09 heparin (porcine) injection 5,000 Units, 5,000 Units, Subcutaneous, q8h RAFAT, Lala Valdes DIRECTOR CLINICAL APPLICATIONS, 5,000 Units at 10/15/24 0605 melatonin tablet 3 mg, 3 mg, Oral, Nightly, Lala Valdes DIRECTOR CLINICAL APPLICATIONS, 3 mg at 10/14/242046 NIFEdipine XL (Procardia XL) 24 hr tablet 60 mg, 60 mg, Oral, Daily, Leda Gaitan MD, 60 mg at 10/15/24 09 polyethylene glycol (Miralax) packet 17 g, 17 g, Oral, Daily, Lala Valdes, DIRECTOR CLINICAL APPLICATIONS, 17 g at 10/15/24 1118 sertraline (Zoloft) tablet 75 mg, 75 mg, Oral, Daily, Lala Valdes, DIRECTOR CLINICAL APPLICATIONS, 75 mg at 10/15/24 0911 Insert peripheral IV, , , Once AND Saline lock IV, , , Once AND sodium chloride 0.9 % flush10 mL, 10 mL, Intravenous, q12h, 10 mL at 10/13/24 1759 AND sodium chloride 0.9 % flush 10 mL, 10 mL, Intravenous, PRN, Lala Valdes, DIRECTOR CLINICAL APPLICATIONS sodium citrate anticoagulant 4 % flush 6 mL, 6 mL, Intracatheter, PRN, Rust, Daphne Galeana APRN, DNP traZODone (Desyrel) tablet 100 mg, 100 mg, Oral, Nightly, Lala Valdes, DIRECTOR CLINICAL APPLICATIONS, 100 mg at 10/14/242046 Facility-Administered Medications Ordered in Other Encounters: lidocaine-EPINEPHrine (PF) (Xylocaine W/EPI) 1 %-1:251259 injection - Pyxis Override Pull, , , , lidocaine-EPINEPHrine (PF) (Xylocaine W/EPI) 1 %-1:360438 injection - Pyxis Override Pull, , , [...] ESRD (end stage renal disease) on dialysis ([facility]) Essential (primary) hypertension Type 2 diabetes mellitus with chronic kidney disease on chronic dialysis ([facility]/HCC) Wears hearing aid in both ears At high risk for falls Insomnia, unspecified Chronic combined systolic (congestive) and diastolic (congestive) heart failure ([facility]/HCC) Dementia ([facility] Chronic hepatitis C without hepatic coma ([facility]) Arterial insufficiency ([facility]) Gastroesophageal reflux disease without esophagitis Mixed hyperlipidemia Anxiety and depression Mild intellectual disabilities Sensorineural hearing loss, bilateral History of transmetatarsal amputation of foot ([facility]) Electrolyte and fluid disorder Anemia in chronic kidney disease (CODE) 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 Nephrology consulted for dialysis. Assessment: #ESRD on iHD - MWF at [facility] [address] Lucas - AccesS: RUE [...] Ongoing, Progressing Intervention: Promote Activity and Functional [place] Flowsheets Taken 10/15/2024218 Adaptive Equipment Use: use [...] from the original note were not included. [facility] Medicine Inpatient Progress Note Patient: Mundo Fernandez [...] Minimally verbal HENT: Head: Normocephalic. Comments: Very [place], some times sin actions help to communicate [...] Assessment and Plan: Aakash Fernandez is a [place] 64 y.o. male with past history of ESRD on HD MWF, T2DM, HTN, chronic HFrEF, PAD, HLD, IDD/dementia, depression/anxiety, insomnia, chronic HCV, DM foot ulcer c/b OM s/p bilateral transmetarsal amputation, and debility sent from his senior care to ED for medical evaluationafter refusing care. Declining functional status - Transferred to senior care a week ago and since arrival refusing HD, to eat, participate, or take medications - sent to ED for medical evaluation and need for higher level of assist/unable to care for self/non-compliance - afebrile, VSS, no acute complaints PLAN - PT/OT consult re: placement - legal guardian is his brother, Chris Fernandez, #[phone] (not answering calls since patient admission) Essential (primary) hypertension - increased carvedilol to 25 mg twice daily, nifedipine XL 60 mg daily (hold for BP <120/80 on dialysis days) At high risk for falls - wheelchair dependent, fall precautions ESRD (end stage renal disease) on dialysis ([facility]) - HD (MWF) - renally dose meds based on EGFR - strict I/O, daily weight Electrolyte and fluid disorder Hyponatremia Chronic kidney disease-mineral and bone disorder (CKD-MBD) - continue Renvela 800 mg TID with meals Anemia in chronic kidney disease (CODE) - Hgb stable, transfuse to keep >7 Type 2 diabetes mellitus with chronic kidney disease on chronic dialysis ([facility]) - last A1c 6.3 PLAN - will dc SSI given minimal Insulin need Dementia ([facility]) - Psych recommended; Asenapine 3.8 mg daily [...] melatonin 3 mg at bedtime Arterial insufficiency ([facility]) - continue aspirin 81 mg daily, clopidogrel [...] Fernandez Mobile Relation: Legal Guardian Preferred language: [place]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 (Xylocaine W/EPI) 1 %-1:197230 injection - Pyxis Override Pull, , , , lidocaine-EPINEPHrine (PF) (Xylocaine W/EPI) 1 %-1:230682 injection - Pyxis Override Pull, , , [...] Ongoing, Progressing Intervention: Promote Activity and Functional [place] Flowsheets Taken 10/06/2024 1600 by Arturo Salazar [...] utilized Taken 10/05/2024 1029 by Arturo Salazar, prevention coordinator/Support System Care: self-care encouraged Goal: Optimal Functional [...] from the original note were not included. [facility] Inpatient Progress Note Patient: Mundo Fernandez [...] Assessment and Plan: Aakash Fernandez is a [place] 64 y.o. male with past history of ESRD on HD MWF, T2DM, HTN, chronic HFrEF, PAD, HLD, IDD/dementia, depression/anxiety, insomnia, chronic HCV, DM foot ulcer c/b OM s/p bilateral transmetarsal amputation, and debility sent from his senior care to ED for medical evaluationafter refusing care. Declining functional status - Transferred to senior care a week ago and since arrival refusing HD, to eat, participate, or take medications - sent to ED for medical evaluation and need for higher level of assist/unable to care for self/non-compliance - afebrile, VSS, no acute complaints PLAN - PT/OT consult re: placement - legal guardian is his brother, Chris Fernandez, #[phone] (not answering calls since patient admission) At high risk for falls - wheelchair dependent, fall precautions ESRD (end stage renal disease) on dialysis ([facility]) - HD (MWF) - renally dose meds [...] with chronic kidney disease on chronic dialysis ([facility]) - last A1c 6.3 PLAN - ACHS regular SSI - hold home glargine 5U at bedtime while trend glucose/PO intake Dementia ([facility]) - Delirium precautions - Psych recommended to [...] BP <120/80 on dialysis days) Arterial insufficiency ([facility]) - continue aspirin 81 mg daily, clopidogrel [...] Fernandez Mobile Relation: Legal Guardian Preferred language: [place] School Bus Attendant needed? No Secondary Emergency Contact: Mariel Chavez Address: [address] [place] [address] Mobile Relation: [employer] School Bus Attendant needed? No Leda Kelley MD Picker Operator Internal [facility] Pediatrics Certified M[employer] Drag Operator Pager [phone] [1] Current Facility-Administered Medications: acetaminophen (Tylenol) tablet 650 mg, 650 mg, Oral, q6h PRN, Lucio Gitana B, DIRECTOR CLINICAL APPLICATIONS Asenapine 3.8mg/24 hr patch, 1 patch, Transdermal, q24h, Leda Gaitan MD, 1 patchat 10/05/24 1427 aspirin chewable tablet 81 mg, 81 mg, Oral, Daily, Lucio Gitana B, DIRECTOR CLINICAL APPLICATIONS, 81 mg at 10/06/24 0828 atorvastatin (Lipitor) tablet 40 mg, 40 mg, Oral, Nightly, Lala Valdes B, DIRECTOR CLINICAL APPLICATIONS, 40 mg at 10/05/24 210 bisacodyl (Dulcolax) EC tablet 10 mg, 10 mg, Oral, Daily PRN, Lucio Gitana B, DIRECTOR CLINICAL APPLICATIONS cadexomer iodine (Iodosorb) 0.9 % gel, , Topical, Daily, Khalid, Fajardo Jared, MD, Given at 10/04/24 1311 carvedilol (Coreg) tablet 12.5 mg, 12.5 mg, Oral, BID, Lala Valdes, DIRECTOR CLINICAL APPLICATIONS, 12.5 mg at 10/06/24 0828 clopidogrel (Plavix) tablet 75 mg, 75 mg, Oral, Daily, Lala Valdes, DIRECTOR CLINICAL APPLICATIONS, 75 mg at 10/06/24 0828 glucose (Glutose) 40 % oral gel 15-30 grams of glucose, 15-30 grams of glucose, Sublingual, q15 minPRN OR dextrose 10 % (D10W) bolus 125 mL, 125 mL, Intravenous, q15 min PRN OR dextrose 10 %(D10W) bolus 250 mL, 250 mL, Intravenous, q15 min PRN OR glucagon (human recombinant) injection1 mg, 1 mg, Intramuscular, q15 min PRN, Lala Valdes DIRECTOR CLINICAL APPLICATIONS divalproex sprinkle (Depakote Sprinkle) DR capsule 250 mg, 250 mg, Oral, BID, Lala Valdes, DIRECTOR CLINICAL APPLICATIONS,250 mg at 10/06/24 0828 heparin (porcine) injection 5,000 Units, 5,000 Units, Subcutaneous, q8h RAFAT, Lala Valdes DIRECTOR CLINICAL APPLICATIONS, 5,000 Units at 10/06/24 0556 insulin lispro (Admelog) 100 units/mL injection - Correction - Standard Dose, 0- 5 Units, Subcutaneous, TID with meals, Lala Valdes DIRECTOR CLINICAL APPLICATIONS, 1 Units at 10/02/24 1706 insulin lispro (Admelog) injection - Correction - Nighttime Dose, 0-3 Units, Subcutaneous, Twice atnight, Lala Valdes DIRECTOR CLINICAL APPLICATIONS melatonin tablet 3 mg, 3 mg, Oral, Nightly, Lala Valdes, DIRECTOR CLINICAL APPLICATIONS, 3 mg at 10/05/24 2105 NIFEdipine XL (Procardia XL) 24 hr tablet 30 mg, 30 mg, Oral, Daily, Lala Valdes, DIRECTOR CLINICAL APPLICATIONS, 30 mg at10/06/24 0828 polyethylene glycol (Miralax) packet 17 g, 17 g, Oral, Daily, Lala Valdes, DIRECTOR CLINICAL APPLICATIONS, 17 g at 10/06/24 0828 sertraline (Zoloft) tablet 75 mg, 75 mg, Oral, Daily, Lucio, Gitana B, DIRECTOR CLINICAL APPLICATIONS, 75 mg at 10/06/24 0828 Insert peripheral IV, , , Once AND Saline lock IV, , , Once AND sodium chloride 0.9 % flush10 mL, 10 mL, Intravenous, q12h, 10 mL at 10/04/242031 AND sodium chloride 0.9 % flush 10 mL, 10 mL, Intravenous, PRN, Lucio, Gitana B, DIRECTOR CLINICAL APPLICATIONS traZODone (Desyrel) tablet 100 mg, 100 mg, Oral, Nightly, Lucio, Gitana B, DIRECTOR CLINICAL APPLICATIONS, 100 mg at 10/05/242104 Facility-Administered Medications Ordered in Other Encounters: lidocaine-EPINEPHrine (PF) (Xylocaine W/EPI) 1 %-1:955998 injection - Pyxis Override Pull, , , , lidocaine-EPINEPHrine (PF) (Xylocaine W/EPI) 1 %-1:840998 injection - Pyxis Override Pull, , , [...] Ongoing, Progressing Intervention: Promote Activity and Functional [place] Flowsheets (Taken 10/05/2024 0800) Activity Assistance Provided: [...] Progressing Flowsheets Taken 10/05/2024 1024 by Arturo Salazar RN Patient/Family-Specific Goals (Include Timeframe): Patient will [...] Isolation Precautions: protective Taken 10/05/2024 0350 by Seerne Boothe RN Fever Reduction/Comfort Measures: lightweight bedding [...] from the original note were not included. [facility] Medicine Inpatient Progress Note Patient: Mundo Fernandez [...] Assessment and Plan: Aakash Fernandez is a [place] 64 y.o. male with past history of ESRD on HD MWF, T2DM, HTN, chronic HFrEF, PAD, HLD, IDD/dementia, depression/anxiety, insomnia, chronic HCV, DM foot ulcer c/b OM s/p bilateral transmetarsal amputation, and debility sent from his senior care to ED for medical evaluationafter refusing care. Declining functional status - Transferred to senior care a week ago and since arrival refusing HD, to eat, participate, or take medications - sent to ED for medical evaluation and need for higher level of assist/unable to care for self/non-compliance - afebrile, VSS, no acute complaints PLAN - PT/OT consult re: placement - legal guardian is his brother, Chris Fernandez, #[phone] (not answering calls since patient admission) At high risk for falls - wheelchair dependent, fall precautions ESRD (end stage renal disease) on dialysis ([facility]) - HD (MWF) - renally dose meds [...] with chronic kidney disease on chronic dialysis ([facility]) - last A1c 6.3 PLAN - ACHS regular SSI - hold home glargine 5U at bedtime while trend glucose/PO intake Dementia ([facility]) - Delirium precautions - Psych recommended to [...] BP <120/80 on dialysis days) Arterial insufficiency ([facility]) - continue aspirin 81 mg daily, clopidogrel [...] diet Chronic hepatitis C without hepatic coma ([facility]) - HCV RNA PCR not detected 07/13/2023 History of transmetatarsal amputation of foot ([facility]) - chronic OM 2/2 DM foot ulcers s/p bilateral transmetarsal amputation Inpatient Checklist: Inpatient checklist: - Bowel regimen: ducolax - Code status: Full Code - Diet: PO - DVT prophylaxis: heparin - Disposition: placement CODE STATUS: Full Code EMERGENCY CONTACT: Extended Emergency Contact Information Primary Emergency Contact: MiahChris Mobile Relation: Legal Guardian Preferred language: [place] School Bus Attendant needed? No Secondary Emergency Contact: Mariel Chavez Address: [address] [place] [address] of [employer] Mobile Relation: Compound Filler School Bus Attendant needed? No Leda Kelley MD Picker Operator Internal Medicine Pediatrics Certified Melt House Drag Operator Pager [phone] [1] Current Facility-Administered Medications: acetaminophen (Tylenol) tablet 650 mg, 650 mg, Oral, q6h PRN, Lala Valdes APRN Asenapine 3.8mg/24 hr patch, 1 patch, Transdermal, q24h, Leda Gaitan MD, 1 patchat 10/04/24 1342 aspirin chewable tablet 81 mg, 81 mg, Oral, Daily, Lala Valdes, DIRECTOR CLINICAL APPLICATIONS, 81 mg at 10/05/24 0855 atorvastatin (Lipitor) tablet 40 mg, 40 mg, Oral, Nightly, Lala Valdes, DIRECTOR CLINICAL APPLICATIONS, 40 mg at 10/04/242 bisacodyl (Dulcolax) EC tablet 10 mg, 10 mg, Oral, Daily PRN, Lala Valdes DIRECTOR CLINICAL APPLICATIONS cadexomer iodine (Iodosorb) 0.9 % gel, , Topical, Daily, Tana Wooten MD, Given at 10/04/24 1311 carvedilol (Coreg) tablet 12.5 mg, 12.5 mg, Oral, BID, Lala Valdes, DIRECTOR CLINICAL APPLICATIONS, 12.5 mg at 10/05/24 0855 clopidogrel (Plavix) tablet 75 mg, 75 mg, Oral, Daily, Lala Valdes DIRECTOR CLINICAL APPLICATIONS, 75 mg at 10/05/24 0855 glucose (Glutose) 40 % oral gel 15-30 grams of glucose, 15-30 grams of glucose, Sublingual, q15 minPRN OR dextrose 10 % (D10W) bolus 125 mL, 125 mL, Intravenous, q15 min PRN OR dextrose 10 %(D10W) bolus 250 mL, 250 mL, Intravenous, q15 min PRN OR glucagon (human recombinant) injection1 mg, 1 mg, Intramuscular, q15 min PRN, Lala Valdes DIRECTOR CLINICAL APPLICATIONS divalproex sprinkle (Depakote Sprinkle) DR capsule 250 mg, 250 mg, Oral, BID, Lala Valdes, DIRECTOR CLINICAL APPLICATIONS,250 mg at 10/05/24 0855 heparin (porcine) injection 5,000 Units, 5,000 Units, Subcutaneous, q8h RAFAT, Lala Valdes DIRECTOR CLINICAL APPLICATIONS, 5,000 Units at 10/05/24 0517 insulin lispro (Admelog) 100 units/mL injection - Correction - Standard Dose, 0- 5 Units, Subcutaneous, TID with meals, Lala Valdes DIRECTOR CLINICAL APPLICATIONS, 1 Units at 10/02/24 1706 insulin lispro (Admelog) injection - Correction - Nighttime Dose, 0-3 Units, Subcutaneous, Twice atnight, Lala Valdes B, DIRECTOR CLINICAL APPLICATIONS melatonin tablet 3 mg, 3 mg, Oral, Nightly, Lala Valdes B, DIRECTOR CLINICAL APPLICATIONS, 3 mg at 10/04/242031 mupirocin (Bactroban) 2 % ointment 1 Application, 1 Application, Each Nostril, BID, Tana Wooten MD, 1 Application at 10/05/24 08 NIFEdipine XL (Procardia XL) 24 hr tablet 30 mg, 30 mg, Oral, Daily, Lala Valdes B, DIRECTOR CLINICAL APPLICATIONS, 30 mg at10/05/24855 polyethylene glycol (Miralax) packet 17 g, 17 g, Oral, Daily, Lala Valdes B, DIRECTOR CLINICAL APPLICATIONS, 17 g at 10/05/24855 sertraline (Zoloft) tablet 75 mg, 75 mg, Oral, Daily, Lala Valdes B, DIRECTOR CLINICAL APPLICATIONS, 75 mg at 10/05/24855 Insert peripheral IV, , , Once AND Saline lock IV, , , Once AND sodium chloride 0.9 % flush10 mL, 10 mL, Intravenous, q12h, 10 mL at 10/04/242031 AND sodium chloride 0.9 % flush 10 mL, 10 mL, Intravenous, PRN, Laith Valdesana B, DIRECTOR CLINICAL APPLICATIONS traZODone (Desyrel) tablet 100 mg, 100 mg, Oral, Nightly, Lucio Gitana B, DIRECTOR CLINICAL APPLICATIONS, 100 mg at 10/04/242031 Facility-Administered Medications Ordered in Other Encounters: lidocaine-EPINEPHrine (PF) (Xylocaine W/EPI) 1 %-1:799430 injection - Pyxis Override Pull, , , , lidocaine-EPINEPHrine (PF) (Xylocaine W/EPI) 1 %-1:752524 injection - Pyxis Override Pull, , , [...] Ongoing, Progressing Intervention: Promote Activity and Functional [place] Flowsheets (Taken 10/05/2024 0800) Activity Assistance Provided: [...] Ongoing, Progressing Intervention: Promote Activity and Functional [place] Flowsheets Taken 10/05/2024 0350 by Serene Boothe, [...] compassionate listening presence, encouragement and spiritual support. [employer] Sales Beauty Advisor remains available as needed. Patient Profile: [...] from the original note were not included. [facility] Inpatient Progress Note Patient: Mundo Fernandez [...] Assessment and Plan: Aakash Fernandez is a [place] 64 y.o. male with past history of ESRD on HD MWF, T2DM, HTN, chronic HFrEF, PAD, HLD, IDD/dementia, depression/anxiety, insomnia, chronic HCV, DM foot ulcer c/b OM s/p bilateral transmetarsal amputation, and debility sent from his senior care to ED for medical evaluationafter refusing care. Declining functional status - Transferred to senior care a week ago and since arrival refusing HD, to eat, participate, or take medications - sent to ED for medical evaluation and need for higher level of assist/unable to care for self/non-compliance - afebrile, VSS, no acute complaints PLAN - PT/OT consult re: placement - legal guardian is his brother, Chris Fernandez, #[phone] At high risk for falls - wheelchair dependent, fall precautions ESRD (end stage renal disease) on dialysis ([facility]) - HD (MWF) - renally dose meds [...] with chronic kidney disease on chronic dialysis ([facility]) - last A1c 6.3 PLAN - ACHS regular SSI - hold home glargine 5U at bedtime while trend glucose/PO intake Dementia ([facility]) - Delirium precautions - Psych recommended to [...] MiahChris Mobile Relation: Legal Guardian Preferred language: [place] School Bus Attendant needed? No Secondary Emergency Contact: Mariel Chavez Address: [address] [place] [address] of [facility] Mobile Relation: Compound Filler School Bus Attendant needed? No Leda Kelley MD Picker Operator Internal Medicine Pediatrics Certified Melt House Drag Operator Pager [phone] [1] Current Facility-Administered Medications: acetaminophen (Tylenol) tablet 650 mg, 650 mg, Oral, q6h PRN, Lala Valdes, DIRECTOR CLINICAL APPLICATIONS alteplase (Cathflo Activase) injection 4 mg, 4 mg, Intracatheter, PRN, Daphne Landry APRN, DNP aspirin chewable tablet 81 mg, 81 mg, Oral, Daily, Lala Valdes, DIRECTOR CLINICAL APPLICATIONS, 81 mg at 10/03/24 0819 atorvastatin (Lipitor) tablet 40 mg, 40 mg, Oral, Nightly, Lala Valdes DIRECTOR CLINICAL APPLICATIONS, 40 mg at 10/03/249 bisacodyl (Dulcolax) EC tablet 10 mg, 10 mg, Oral, Daily PRN, Lala Valdes, DIRECTOR CLINICAL APPLICATIONS cadexomer iodine (Iodosorb) 0.9 % gel, , Topical, Daily, Tana Wooten MD, Given at 10/03/24820 carvedilol (Coreg) tablet 12.5 mg, 12.5 mg, Oral, BID, Lala Valdes DIRECTOR CLINICAL APPLICATIONS, 12.5 mg at 10/03/242029 clopidogrel (Plavix) tablet 75 mg, 75 mg, Oral, Daily, Lala Valdes, DIRECTOR CLINICAL APPLICATIONS, 75 mg at 10/03/24 0819 glucose (Glutose) 40 % oral gel 15-30 grams of glucose, 15-30 grams of glucose, Sublingual, q15 minPRN OR dextrose 10 % (D10W) bolus 125 mL, 125 mL, Intravenous, q15 min PRN OR dextrose 10 %(D10W) bolus 250 mL, 250 mL, Intravenous, q15 min PRN OR glucagon (human recombinant) injection1 mg, 1 mg, Intramuscular, q15 min PRN, Lala Valdes, DIRECTOR CLINICAL APPLICATIONS divalproex sprinkle (Depakote Sprinkle) DR capsule 250 mg, 250 mg, Oral, BID, Lala Valdes, DIRECTOR CLINICAL APPLICATIONS,250 mg at 10/03/242029 heparin (porcine) injection 5,000 Units, 5,000 Units, Subcutaneous, q8h RAFAT, Lala Valdes DIRECTOR CLINICAL APPLICATIONS, 5,000 Units at 10/04/24 0532 insulin lispro (Admelog) 100 units/mL injection - Correction - Standard Dose, 0- 5 Units, Subcutaneous, TID with meals, Lala Valdes DIRECTOR CLINICAL APPLICATIONS, 1 Units at 10/02/24 1706 insulin lispro (Admelog) injection - Correction - Nighttime Dose, 0-3 Units, Subcutaneous, Twice atnight, Lala Valdes DIRECTOR CLINICAL APPLICATIONS melatonin tablet 3 mg, 3 mg, Oral, Nightly, Lala Valdes, DIRECTOR CLINICAL APPLICATIONS, 3 mg at 10/03/242029 mupirocin (Bactroban) 2 % ointment 1 Application, 1 Application, Each Nostril, BID, Tana Wooten MD, 1 Application at 10/03/242029 NIFEdipine XL (Procardia XL) 24 hr tablet 30 mg, 30 mg, Oral, Daily, Lala Valdes, DIRECTOR CLINICAL APPLICATIONS, 30 mg at10/03/24818 polyethylene glycol (Miralax) packet 17 g, 17 g, Oral, Daily, Lala Valdes, DIRECTOR CLINICAL APPLICATIONS, 17 g at 10/03/24818 sertraline (Zoloft) tablet 75 mg, 75 mg, Oral, Daily, Lala Valdes, DIRECTOR CLINICAL APPLICATIONS, 75 mg at 10/03/24818 Insert peripheral IV, , , Once AND Saline lock IV, , , Once AND sodium chloride 0.9 % flush10 mL, 10 mL, Intravenous, q12h, 10 mL at 10/03/242030 AND sodium chloride 0.9 % flush 10 mL, 10 mL, Intravenous, PRN, Lala Valdes B, DIRECTOR CLINICAL APPLICATIONS sodium citrate anticoagulant 4 % flush 6 mL, 6 mL, Intracatheter, PRN, Daphne Landry APRN, DNP traZODone (Desyrel) tablet 100 mg, 100 mg, Oral, Nightly, Lala Valdes B, DIRECTOR CLINICAL APPLICATIONS, 100 mg at 10/03/242029 Facility-Administered Medications Ordered in Other Encounters: lidocaine-EPINEPHrine (PF) (Xylocaine W/EPI) 1 %-1:418298 injection - Pyxis Override Pull, , , , lidocaine-EPINEPHrine (PF) (Xylocaine W/EPI) 1 %-1:140696 injection - Pyxis Override Pull, , , [...] 28 days, [facility] Hepatitis panel, acute Every 28 days, [...] Ongoing, Progressing Intervention: Promote Activity and Functional [place] Flowsheets (Taken 10/04/2024 012) Activity Assistance Provided: [...] Note Mundo Fernandez 64 y.o. male CSN: [id number] Admission: 09/30/2024 3:29 PM Primary Problem: Declining [...] appropriate for SNF. Patient [facility] for over a year for LTC. CM will call guardian tomorrow to discuss dc plan. CM will continue to follow and will remain available via secure chat to assist as needed. Clau Vo RN * Progress Notes - Leda Gaitan MD - 10/03/2024 8:38 AM EDT Images from the original note were not included. [facility] Inpatient Progress Note Patient: Mundo Fernandez [...] Assessment and Plan: Aakash Fernandez is a [place] 64 y.o. male with past history of ESRD on HD MWF, T2DM, HTN, chronic HFrEF, PAD, HLD, IDD/dementia, depression/anxiety, insomnia, chronic HCV, DM foot ulcer c/b OM s/p bilateral transmetarsal amputation, and debility sent from his senior care to ED for medical evaluationafter refusing care. Declining functional status - Transferred to senior care a week ago and since arrival refusing HD, to eat, participate, or take medications - sent to ED for medical evaluation and need for higher level of assist/unable to care for self/non-compliance - afebrile, VSS, no acute complaints PLAN - PT/OT consult re: placement - legal guardian is his brother, Chris Fernandez, #[phone] At high risk for falls - wheelchair dependent, fall precautions ESRD (end stage renal disease) on dialysis ([facility]) - Missed HD (MWF) , last session [...] with chronic kidney disease on chronic dialysis ([facility]) - last A1c 4.8% over a year ago - presenting glucose 185, repeat A1c pending PLAN - [facility] regular S[facility] - hold home glargine 5U at bedtime while trend glucose/PO intake Dementia ([facility]) - Delirium precautions - Psych recommended to [...] BP <120/80 on dialysis days) Arterial insufficiency ([facility]) - continue aspirin 81 mg daily, clopidogrel [...] Fernandez Mobile Relation: Legal Guardian Preferred language: [place]an School Bus Attendant needed? No Secondary Emergency Contact: Mariel Chavez Address: [address] [place] [address] Mobile Relation: Compound Filler School Bus Attendant needed? No Leda Kelley MD Picker Operator Internal Medicine Pediatrics Certified [employer] Drag Operator Pager [phone] [1] Current Facility-Administered Medications: acetaminophen (Tylenol) tablet 650 mg, 650 mg, Oral, q6h PRN, Lala Valdes B, DIRECTOR CLINICAL APPLICATIONS aspirin chewable tablet 81 mg, 81 mg, Oral, Daily, Laith Valdesana B, DIRECTOR CLINICAL APPLICATIONS, 81 mg at 10/03/24 0819 atorvastatin (Lipitor) tablet 40 mg, 40 mg, Oral, Nightly, Lala Valdes B, DIRECTOR CLINICAL APPLICATIONS, 40 mg at 10/02/242056 bisacodyl (Dulcolax) EC tablet 10 mg, 10 mg, Oral, Daily PRN, Lala Valdes B, DIRECTOR CLINICAL APPLICATIONS cadexomer iodine (Iodosorb) 0.9 % gel, , Topical, Daily, Tana Wooten MD, Given at 10/03/24 0821 carvedilol (Coreg) tablet 12.5 mg, 12.5 mg, Oral, BID, Lala Valdes DIRECTOR CLINICAL APPLICATIONS, 12.5 mg at 10/03/24 0819 clopidogrel (Plavix) tablet 75 mg, 75 mg, Oral, Daily, Lala Valdes, DIRECTOR CLINICAL APPLICATIONS, 75 mg at 10/03/24 08 glucose (Glutose) 40 % oral gel 15-30 grams of glucose, 15-30 grams of glucose, Sublingual, q15 minPRN OR dextrose 10 % (D10W) bolus 125 mL, 125 mL, Intravenous, q15 min PRN OR dextrose 10 %(D10W) bolus 250 mL, 250 mL, Intravenous, q15 min PRN OR glucagon (human recombinant) injection1 mg, 1 mg, Intramuscular, q15 min PRN, Lala Valdes DIRECTOR CLINICAL APPLICATIONS divalproex sprinkle (Depakote Sprinkle) DR capsule 250 mg, 250 mg, Oral, BID, Lala Valdes, DIRECTOR CLINICAL APPLICATIONS,250 mg at 10/03/24 08 heparin (porcine) injection 5,000 Units, 5,000 Units, Subcutaneous, q8h RAFAT, Lala Valdes DIRECTOR CLINICAL APPLICATIONS, 5,000 Units at 10/03/24 0543 insulin lispro (Admelog) 100 units/mL injection - Correction - Standard Dose, 0- 5 Units, Subcutaneous, TID with meals, Lala Valdes DIRECTOR CLINICAL APPLICATIONS, 1 Units at 10/02/24 1706 insulin lispro (Admelog) injection - Correction - Nighttime Dose, 0-3 Units, Subcutaneous, Twice atnight, Lala Valdes APRN melatonin tablet 3 mg, 3 mg, Oral, Nightly, Lala Valdes, DIRECTOR CLINICAL APPLICATIONS, 3 mg at 10/02/242056 mupirocin (Bactroban) 2 % ointment 1 Application, 1 Application, Each Nostril, BID, Tana Wooten MD, 1 Application at 10/03/24818 NIFEdipine XL (Procardia XL) 24 hr tablet 30 mg, 30 mg, Oral, Daily, Lala Valdes, DIRECTOR CLINICAL APPLICATIONS, 30 mg at10/03/24 0819 polyethylene glycol (Miralax) packet 17 g, 17 g, Oral, Daily, Lala Valdes, DIRECTOR CLINICAL APPLICATIONS, 17 g at 10/03/24 08 sertraline (Zoloft) tablet 75 mg, 75 mg, Oral, Daily, Lucio, Gitana B, DIRECTOR CLINICAL APPLICATIONS, 75 mg at 10/03/24818 Insert peripheral IV, , , Once AND Saline lock IV, , , Once AND sodium chloride 0.9 % flush10 mL, 10 mL, Intravenous, q12h, 10 mL at 10/03/24818 AND sodium chloride 0.9 % flush 10 mL, 10 mL, Intravenous, PRN, Lucio, Gitana B, DIRECTOR CLINICAL APPLICATIONS traZODone (Desyrel) tablet 100 mg, 100 mg, Oral, Nightly, Lucio, Gitana B, DIRECTOR CLINICAL APPLICATIONS, 100 mg at 10/02/242056 Facility-Administered Medications Ordered in Other Encounters: lidocaine-EPINEPHrine (PF) (Xylocaine W/EPI) 1 %-1:225269 injection - Pyxis Override Pull, , , , lidocaine-EPINEPHrine (PF) (Xylocaine W/EPI) 1 %-1:866585 injection - Pyxis Override Pull, , , [...] and depression who initially presented to [facility] from senior care with worsening foot wounds, lack of medication [...] ED as follows: (from Mariel, caregiver at senior care, ) She states that the patient has been in a correction for the last year with a high level of assist. One week ago he was transferred from the correction to her senior care under her groups care. She says since [...] was receiving. They moved him to a senior care with the hope that this would be happier environment for him. Since he moved to the senior care, he has not been taking his medications. [...] recently prescribed by Debbie Newberry NP at [facility] in [place] and Jt Fowler MD in [place]. Inpatient: unable to assess due Previous suicide attempts: unable to assess Past trauma history: unable to assess Past Medical History[1] Allergies[2] Family History: Psychiatric Diagnoses: unable to assess Suicides: unable to assess Social History: Education: Unknown Current living situation: Most recently was living in senior care Family: Relatives listed upon chart review include sister, brother, and nephew. Brother is legal guardian Romantic relationship: unable to assess Employment: unable to assess Legal history: unable to assess Support system: Caregiver, brother (POA) and [id number] Substance use History: Tobacco Use: unable to [...] 108 (H) 74 - 99 mg/dL Comment Marketing Professor ID Viridiana Pichardo Device ID [id number] Specimen Type POC Capillary POCT glucose meter Collection Time: 10/02/24 4:43 PM Result Value Ref Range POCT Glucose 172 (H) 74 - 99 mg/dL Comment Marketing Professor ID Viridiana Pichardo Device ID [id number] Specimen Type POC Capillary POCT glucose meter Collection Time: 10/02/24 9:06 PM Result Value Ref Range POCT Glucose 143 (H) 74 - 99 mg/dL Comment Marketing Professor ID Ashia Daniels Device ID [id number] Specimen Type POC Capillary Renal Function Panel, [...] 110 (H) 74 - 99 mg/dL Comment Marketing Professor ID Precious Thomason Device ID [id number] Specimen Type POC Capillary ANTIPSYCHOTIC MONITORING TOOL [...] IDD/dementia, anxiety, and depression who presented to [facility] ED from facility (senior care) with concerns of non-adherence to medication regimen [...] to first call physician/provider: Dr. Kelley via [employer] chat Berto Mendez, MS3 I saw and [...] systolic (congestive) and diastolic (congestive) heart failure ([facility]) 02/18/2022 Chronic hepatitis C without hepatic coma ([facility]) 06/03/2014 Dementia ([facility]) 02/18/2022 Depression Diabetic peripheral neuropathy ([facility]) ESRD (end stage renal disease) on dialysis ([facility]) 09/16/2021 Essential hypertension 11/23/2011 GERD (gastroesophageal reflux disease) Hemorrhoids Hyperlipidemia Hypoparathyroidism 11/23/2011 Infection of AV graft for dialysis ([facility]) 02/18/2022 Added automatically from request for surgery [id number] Insomnia, unspecified 12/22/2021 Methicillin resistant Staphylococcus aureus [...] with chronic kidney disease on chronic dialysis ([facility]/HCC) Wears hearing aid in both ears At high risk for falls Insomnia, unspecified Chronic combined systolic (congestive) and diastolic (congestive) heart failure (CMS/HCC) Dementia ([facility]/HCC) Chronic hepatitis C without hepatic coma ([facility]/HCC) Arterial insufficiency ([facility]/HCC) Gastroesophageal reflux disease without esophagitis Mixed hyperlipidemia Anxiety and depression Mild intellectual disabilities Sensorineural hearing loss, bilateral History of transmetatarsal amputation of foot ([facility]/HCC) Electrolyte and fluid disorder Anemia in chronic kidney disease (CODE) 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 Nephrology consulted for dialysis. Assessment: #ESRD on iHD - MWF at [facility] [address] [facility] - AccesS: RUE [...] Ongoing, Progressing Intervention: Promote Activity and Functional [place] Flowsheets (Taken 10/03/202418) Activity Assistance Provided: assistance, [...] Note Mundo Fernandez 64 y.o. male CSN: [id number] Admission: 09/30/2024 3:29 PM Primary Problem: Declining functional status Chemical Dependency Professional reviewed chart and spoke with patient caregiver, Mariel [phone] to complete this Initial Case Management Assessment. PCP: Leonard Botello MD, not confirmed Emergency Contact: Extended Emergency Contact Information Primary Emergency Contact: Chris Fernandez Mobile Relation: Legal Guardian Preferred language: [place]an School Bus Attendant needed? No Secondary Emergency Contact: Mariel Chavez Address: [address] [place] [address] Mobile Relation: Compound Filler School Bus Attendant needed? No Insurance: Primary Visit Coverage Payer Plan Sponsor Code Group Number Group Name MEDICARE MEDICARE A & B Primary Visit Coverage Subscriber Subscriber ID Subscriber Name Subscriber N Subscriber Address [id number] MUNDO FERNANDEZ [id number] [address] [place] [address] Secondary Visit Coverage Payer Plan Sponsor Code Group Number Group Name MEDICAID-[facility] MEDICAID [facility] Secondary Visit Coverage Subscriber Subscriber ID Subscriber Name Subscriber SSN Subscriber Address [id number] MUNDO FERNANDEZ [id number] [address] [place] [address] Patient information: Primary Caregiver: Private caregiver Accompanied by/Relationship: no family friends at the bedside Support System: Immediate family Daily Living Activities: Functional Status: Minimum assistance Living Arrangements: Friends Type of Residence: Private residence [address] [id number] Smoker in the Home?: No Current DME: [...] Wheels Transportation . Living Will/Advance Directive/Power of Wedding Planner /Guardian: Have you reviewed your Advance Directive [...] as second person on emergency contacts. Per [facility] report, patient was at [facility] one year ago, discharged to [facility]. [facility] discharged patient approximately 1 week ago to [...] COMMUNICATION: Per this written report. Drafted by Mnudo Martins MD on 08/25/2023 12:16 PM Final report signed by Mundo Martins MD on 08/25/2023 12:18 PM REVIEW OF PROCEDURES Assessment and Plan: Aakash Fernandez is a [place] 64 y.o. male with past history of ESRD on HD MWF, T2DM, HTN, chronic HFrEF, PAD, HLD, IDD/dementia, depression/anxiety, insomnia, chronic HCV, DM foot ulcer c/b OM s/p bilateral transmetarsal amputation, and debility sent from his senior care to ED for medical evaluationafter refusing care. Declining functional status - Transferred to senior care a week ago and since arrival refusing HD, to eat, participate, or take medications - sent to ED for medical evaluation and need for higher level of assist/unable to care for self/non-compliance - afebrile, VSS, no acute complaints PLAN - PT/OT consult re: placement - legal guardian is his brother, Chris Fernandez, #[phone] At high risk for falls - wheelchair dependent, fall precautions ESRD (end stage renal disease) on dialysis ([facility]) - Missed HD (MWF) , last session [...] with chronic kidney disease on chronic dialysis ([facility]) - last A1c 4.8% over a year ago - presenting glucose 185, repeat A1c pending PLAN - [facility] regular SSI - hold home glargine 5U at bedtime while trend glucose/PO intake Dementia ([facility]) - Delirium precautions - Pharm med rec [...] BP <120/80 on dialysis days) Arterial insufficiency ([facility]) - continue aspirin 81 mg daily, clopidogrel [...] systolic (congestive) and diastolic (congestive) heart failure ([facility]) - ECHO 06/27/2022: EF 45%, abnormal diastolic dysfunction - strict I/O, 2 L fluid restriction, cardiac/renal/CCHO2 diet Chronic hepatitis C without hepatic coma ([facility]) - HCV RNA PCR not detected 07/13/2023 History of transmetatarsal amputation of foot ([facility]) - chronic OM 2/2 DM foot ulcers s/p bilateral transmetarsal amputation Inpatient Checklist: Inpatient checklist: - Bowel regimen: ducolax - Code status: Full Code - Diet: PO - DVT prophylaxis: heparin - Disposition: placement CODE STATUS: Full Code EMERGENCY CONTACT: Extended Emergency Contact Information Primary Emergency Contact: Chris Fernandez Mobile Relation: Legal Guardian Preferred language: [place]an School Bus Attendant needed? No Secondary Emergency Contact: Mariel Chavez Address: [address] [place] [address] [place] Mobile Relation: Compound Filler School Bus Attendant needed? No Leda Kelley MD Picker Operator Internal Medicine Pediatrics Certified Melt House Drag Operator Pager [phone] [1] Current Facility-Administered Medications: acetaminophen (Tylenol) tablet 650 mg, 650 mg, Oral, q6h PRN, Laith Valdesana B, DIRECTOR CLINICAL APPLICATIONS aspirin chewable tablet 81 mg, 81 mg, Oral, Daily, Lucio Gitana B, DIRECTOR CLINICAL APPLICATIONS, 81 mg at 10/02/24 1137 atorvastatin (Lipitor) tablet 40 mg, 40 mg, Oral, Nightly, Lala Valdes B, DIRECTOR CLINICAL APPLICATIONS, 40 mg at 10/01/242051 bisacodyl (Dulcolax) EC tablet 10 mg, 10 mg, Oral, Daily PRN, Lucio Gitana B, DIRECTOR CLINICAL APPLICATIONS cadexomer iodine (Iodosorb) 0.9 % gel, , Topical, Daily, Tana Wooten MD, Given at 10/02/24 1140 carvedilol (Coreg) tablet 12.5 mg, 12.5 mg, Oral, BID, Lala Valdes, DIRECTOR CLINICAL APPLICATIONS, 12.5 mg at 10/02/24 1137 clopidogrel (Plavix) tablet 75 mg, 75 mg, Oral, Daily, Lucio Gitana B, DIRECTOR CLINICAL APPLICATIONS, 75 mg at 10/02/24 1137 glucose (Glutose) [...] Intramuscular, q15 min PRN, Lucio Gitana B, DIRECTOR CLINICAL APPLICATIONS divalproex sprinkle (Depakote Sprinkle) DR capsule 250 mg, 250 mg, Oral, BID, Lucio Gitnikolay B, DIRECTOR CLINICAL APPLICATIONS,250 mg at 10/02/24 1137 heparin (porcine) injection 5,000 Units, 5,000 Units, Subcutaneous, q8h RAFAT, Lala Valdes, DIRECTOR CLINICAL APPLICATIONS, 5,000 Units at 10/02/24 0528 insulin lispro (Admelog) 100 units/mL injection - Correction - Standard Dose, 0- 5 Units, Subcutaneous, TID with meals, Lala Valdes DIRECTOR CLINICAL APPLICATIONS insulin lispro (Admelog) injection - Correction - Nighttime Dose, 0-3 Units, Subcutaneous, Twice atnight, Lala Valdes DIRECTOR CLINICAL APPLICATIONS melatonin tablet 3 mg, 3 mg, Oral, Nightly, Lala Valdes B, DIRECTOR CLINICAL APPLICATIONS, 3 mg at 10/01/242050 mupirocin (Bactroban) 2 % ointment 1 Application, 1 Application, Each Nostril, BID, Tana Wooten MD, 1 Application at 10/02/241136 NIFEdipine XL (Procardia XL) 24 hr tablet 30 mg, 30 mg, Oral, Daily, Lala Valdes, DIRECTOR CLINICAL APPLICATIONS, 30 mg at10/02/24 113 polyethylene glycol (Miralax) packet 17 g, 17 g, Oral, Daily, Lala Valdes, DIRECTOR CLINICAL APPLICATIONS, 17 g at 10/02/24 1137 sertraline (Zoloft) tablet 75 mg, 75 mg, Oral, Daily, Lala Valdes, DIRECTOR CLINICAL APPLICATIONS, 75 mg at 10/02/24 113 Insert peripheral IV, , , Once AND Saline lock IV, , , Once AND sodium chloride 0.9 % flush10 mL, 10 mL, Intravenous, q12h, 10 mL at 10/02/24 1137 AND sodium chloride 0.9 % flush 10 mL, 10 mL, Intravenous, PRN, Lala Valdes B, DIRECTOR CLINICAL APPLICATIONS traZODone (Desyrel) tablet 100 mg, 100 mg, Oral, Nightly, Lala Valdes, DIRECTOR CLINICAL APPLICATIONS, 100 mg at 10/01/242051 Facility-Administered Medications Ordered in Other Encounters: lidocaine-EPINEPHrine (PF) (Xylocaine W/EPI) 1 %-1:808452 injection - Pyxis Override Pull, , , , lidocaine-EPINEPHrine (PF) (Xylocaine W/EPI) 1 %-1:170811 injection - Pyxis Override Pull, , , [...] 28 days, [facility] Hepatitis panel, acute Every 28 days, [...] Ongoing, Progressing Intervention: Promote Activity and Functional [place] Flowsheets (Taken 10/02/202436) Activity Assistance Provided: assistance, [...] 10/01/2024 10:23 AM Wound Image Wound Assessment [place];Pale;Granulation Margins Well-defined edges;Open Edges [place]-Wound Assessment Dry;Calloused;Other [...] Ongoing, Progressing Intervention: Promote Activity and Functional [place] Flowsheets (Taken 10/01/2024 1333) Activity Assistance Provided: [...] Fernandez Today's Date: 10/01/2024 PT Discharge Recommendations: custodial facility (LTC) Equipment Recommended: Defer to facility [...] 04/30/2023 History of transmetatarsal amputation of foot ([facility]) 04/30/2023 Declining functional status 04/15/2023 Anxiety and depression 04/15/2022 Gastroesophageal reflux disease without esophagitis 04/15/2022 Dementia ([facility]) 02/18/2022 Chronic combined systolic (congestive) and diastolic (congestive) heart failure ([facility]) 02/18/2022 Insomnia, unspecified 12/22/2021 At high risk for falls 10/12/2021 ESRD (end stage renal disease) on dialysis ([facility]) 09/16/2021 Arterial insufficiency ([facility]) 05/18/2021 Mild intellectual disabilities 08/30/2019 Sensorineural hearing loss, bilateral 01/11/2018 Wears hearing aid in both ears 12/08/2017 Chronic hepatitis C without hepatic coma ([facility]) 06/03/2014 Type 2 diabetes mellitus with chronic kidney disease on chronic dialysis ([facility]) 11/15/2013 Essential (primary) hypertension 11/23/2011 Mixed hyperlipidemia 11/23/2011 Procedures Past Medical History Patient has a past medical history of Alcohol use disorder in remission, Anemia in chronic kidney disease (CODE) (04/30/2023), Anxiety, Arterial insufficiency ([facility]/HCC) (05/18/2021), Benign prostatichyperplasia, Central line-associated bloodstream infection (06/29/2022), Chronic combined systolic (congestive) and diastolic (congestive) heart failure ([facility]) (02/18/2022), Chronic hepatitis C without hepatic coma ([facility]) (06/03/2014), Dementia ([facility]) (02/18/2022), Depression, Diabetic peripheral neuropathy ([facility]), ESRD (end stage renal disease) on dialysis ([facility]) (09/16/2021), Essential hypertension (11/23/2011), GERD (gastroesophageal reflux disease), Hemorrhoids, Hyperlipidemia, Hypoparathyroidism (11/23/2011), Infection of AV graft for dialysis ([facility]) (02/18/2022), Insomnia, unspecified (12/22/2021), Methicillin resistant Staphylococcus [...] Medical Precautions: Fall precautions Subjective Pt severely [place] with no hearing aides donned or present in room. Pt stated I can't walk when asked how he was mobilizing prior to admission. Participants in Care Family/Caregiver Present: No School Bus Attendant: Not Applicable Presentation Oxygen Therapy: None (Room [...] end of session. Home Living/Set-up Home Type: long-term Home Adaptive Equipment: Wheelchair-manual Home Living Comments: Pt unable to provide home living information and PLOF d/t impaired cognition and being hard of hearing (no hearing aides present in room). Per chart review, pt lives at a senior care and utilizes to mobilize. When asked how he transfers to/from pt stated I can't walk , it is presumed that he stands to pivot in order to transfer. Prior Level of Function Receives Help From: Caregiver Level of Mobility: Wheelchair/Scooter Mobility [place]: Assist with wheelchair propulsion Patient/Family Goals Objective [...] simple, repeated questioning as pt is severely [place] with no hearing aides present in room. [...] Mobility Bed Mobility Exam: Scooting/Bridging Level of [place]: Stand-by assist Physical/Nonphysical Assist: Supervision Bed Mobility Exam: Supine to Sit Level of [place]: Stand-by assist Physical/Nonphysical Assist: Supervision, HOB elevated Transfers Transfer Exam: Sit to stand Level of [place]: Contact guard Physical/Nonphysical Assist: Supervision, Nonverbal cues (demo/gestures) Assistive Device: Walker, rolling Transfer Exam: Stand to Sit Level of [place]: Contact guard Physical/Nonphysical Assist: Supervision, Nonverbal cues [...] understanding. Standardized Assessments Standardized Assessments Standardized Assessments: [facility] 6-Clicks Mobility Assessment [facility] 6-Clicks Mobility Assessment Difficulty patient has [...] 3-5 steps with a railing?: A lot [facility] 6-Clicks Mobility Assessment Total : 20 No data recorded Assessment Pt demonstrated the ability to perform all mobility with SBA-CGA for safety and use of RW when amb short distance in order to transfer to chair. Pt severely [place] with no hearing aides present in room,as [...] Making: Low complexity PT Recommendations Discharge Destination: custodial facility (LTC) Discharge Equipment: Defer to facility Plan Patient no longer demonstrates need for inpatient physical therapy services. Patient to be discharged from physical therapy. Written by Jt Wesley on 10/01/24 at 1:13 PM. * Progress Notes - Whitney Hinojosa - 10/01/2024 9:59 AM EDT Occupational Therapy Evaluation/Discharge Patient Name: Aakash Fernandez Today's Date: 10/01/2024 OT Discharge Recommendations: custodial facility Equipment Recommended: Defer to facility History Mundo Fernandez is 64 y.o. male admitted 09/30/2024 for work-up of Declining functional status. Problem List Active Hospital Problems Diagnosis Date Noted ESRD (end stage renal disease) ([facility]) 09/30/2024 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 06/07/2024 Chronic kidney disease-mineral and bone disorder (CKD-MBD) 08/27/2023 Electrolyte and fluid disorder 06/07/2023 Anemia in chronic kidney disease (CODE) 04/30/2023 History of transmetatarsal amputation of foot ([facility]) 04/30/2023 Declining functional status 04/15/2023 Anxiety and depression 04/15/2022 Gastroesophageal reflux disease without esophagitis 04/15/2022 Dementia ([facility]) 02/18/2022 Chronic combined systolic (congestive) and diastolic (congestive) heart failure ([facility]) 02/18/2022 Insomnia, unspecified 12/22/2021 At high risk for falls 10/12/2021 ESRD (end stage renal disease) on dialysis ([facility]) 09/16/2021 Arterial insufficiency ([facility]) 05/18/2021 Mild intellectual disabilities 08/30/2019 Sensorineural hearing loss, bilateral 01/11/2018 Wears hearing aid in both ears 12/08/2017 Chronic hepatitis C without hepatic coma ([facility]) 06/03/2014 Type 2 diabetes mellitus with chronic kidney disease on chronic dialysis ([facility]) 11/15/2013 Essential (primary) hypertension 11/23/2011 Mixed hyperlipidemia 11/23/2011 Past Medical History Patient has a past medical history of Alcohol use disorder in remission, Anemia in chronic kidney disease (CODE) (04/30/2023), Anxiety, Arterial insufficiency ([facility]) (05/18/2021), Benign prostatichyperplasia, Central line-associated bloodstream infection (06/29/2022), Chronic combined systolic (congestive) and diastolic (congestive) heart failure ([facility]) (02/18/2022), Chronic hepatitis C without hepatic coma ([facility]) (06/03/2014), Dementia ([facility]) (02/18/2022), Depression, Diabetic peripheral neuropathy ([facility]), ESRD (end stage renal disease) on dialysis ([facility]) (09/16/2021), Essential hypertension (11/23/2011), GERD (gastroesophageal reflux disease), Hemorrhoids, Hyperlipidemia, Hypoparathyroidism (11/23/2011), Infection of AV graft for dialysis ([facility]) (02/18/2022), Insomnia, unspecified (12/22/2021), Methicillin resistant Staphylococcus [...] hear Participants in Care Family/Caregiver Present: No School Bus Attendant: Not Applicable Presentation Oxygen Therapy: None (Room [...] Lives With: (pt was living in a senior care, previously in a SNF until about a week ago.) Home Type: long-term Home Adaptive Equipment: Wheelchair-manual Home Layout: One level Bathroom: Tub/Shower: Tub/Shower combo Home Living Comments: Pt unable to provide home living information and PLOF d/t impaired cognition and being hard of hearing (no hearing aides present in room). Per chart review, pt lives at a senior care and utilizes to mobilize. When asked how he transfers to/from pt stated I can't walk , it is presumed that he stands to pivot in order to transfer. Prior Level of Function Receives Help From: Caregiver Level of Mobility: Wheelchair/Scooter Mobility [place]: Assist with wheelchair propulsion History of Falls: [...] simple, repeated questioning as pt is severely [place] with no hearing aides present in room. [...] Mobility Bed Mobility Exam: Scooting/Bridging Level of [place]: Stand-by assist Physical/Nonphysical Assist: Supervision Bed Mobility Exam: Supine to Sit Level of [place]: Stand-by assist Physical/Nonphysical Assist: Supervision, HOB elevated Assistive Device: Bed rails Transfers Transfer Exam: Sit to stand Level of [place]: Contact guard Physical/Nonphysical Assist: Supervision, Nonverbal cues (demo/gestures) Assistive Device: Walker, rolling Transfer Exam: Stand to Sit Level of [place]: Contact guard Physical/Nonphysical Assist: Supervision, Nonverbal cues (demo/gestures) Assistive Device: Walker, rolling Transfer Exam: Bed to Chair/Chair to Bed Level of [place]: Contact guard Physical/Nonphysical Assist: Nonverbal cues (demo/gestures), [...] Level of Assistance: Setup, SBA Standardized Assessments [facility] 6-Click Daily Activities Help from Other: Don/Doff Regular Lower Body Clothings: Little Help From Other: Bathing: Little Help From Other: Toileting: Little Help From Other: Don/Doff Upper Body Clothings: None Help From Other: Grooming: None Help From Other: Eating Meals: None [facility] 6 Click - Daily Activities Score: 21 [...] Eval complexity: Low OT Recommendations Discharge Destination: custodial facility Discharge Equipment: Defer to facility Plan [...] bilateral transmetarsal amputation, and debility presented to [facility] on 09/30 after refusing care at his senior care. He brought to the ED for medical [...] bilateral transmetarsal amputation, and debility presented to [facility] on 09/30 after refusing care at his senior care. Nephrology consulted for dialysis. Assessment: #ESRD on iHD - MWF at [facility] [address] [facility] - AccesS: ISAURO [...] kidney disease (CODE) 04/30/2023 Anxiety Arterial insufficiency ([facility]) 05/18/2021 Benign prostatic hyperplasia Central line-associated bloodstream infection 06/29/2022 Chronic combined systolic (congestive) and diastolic (congestive) heart failure ([facility]) 02/18/2022 Chronic hepatitis C without hepatic coma ([facility]) 06/03/2014 Dementia ([facility]) 02/18/2022 Depression Diabetic peripheral neuropathy ([facility]) ESRD (end stage renal disease) on dialysis ([facility]) 09/16/2021 Essential hypertension 11/23/2011 GERD (gastroesophageal reflux disease) Hemorrhoids Hyperlipidemia Hypoparathyroidism 11/23/2011 Infection of AV graft for dialysis ([facility]) 02/18/2022 Added automatically from request for surgery [id number] Insomnia, unspecified 12/22/2021 Methicillin resistant Staphylococcus aureus infection, unspecified site Mild intellectual disabilities 08/30/2019 MSSA bacteremia 03/04/2022 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 06/07/2024 Sensorineural hearing loss, bilateral 01/11/2018 Type 2 diabetes mellitus [2] Patient Active Problem List Diagnosis ESRD (end stage renal disease) on dialysis ([facility]) Essential (primary) hypertension Type 2 diabetes mellitus with chronic kidney disease on chronic dialysis ([facility]) Wears hearing aid in both ears At high risk for falls Insomnia, unspecified Chronic combined systolic (congestive) and diastolic (congestive) heart failure ([facility]) Dementia ([facility]) Chronic hepatitis C without hepatic coma ([facility]) Arterial insufficiency ([facility]) BPH (benign prostatic hyperplasia) Diabetic peripheral neuropathy ([facility]) DM type 2 without retinopathy ([facility]) Gastroesophageal reflux disease without esophagitis Mixed hyperlipidemia Hypoparathyroidism Anxiety and depression Mild intellectual disabilities Sensorineural hearing loss, bilateral Non-ischemic cardiomyopathy ([facility]) Chronic osteomyelitis ([facility]) Declining functional status History of transmetatarsal amputation of foot ([facility]) Electrolyte and fluid disorder Anemia in chronic kidney disease (CODE) Chronic kidney disease-mineral and bone disorder (CKD-MBD) 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 Non-pressure 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 limited to breakdown of skin ([facility]) Non-pressure chronic ulcer of right heel and midfoot limited to breakdown of skin ([facility]) [3] No Known Allergies [4] Current Facility-Administered Medications: acetaminophen (Tylenol) tablet 650 mg, 650 mg, Oral, q6h PRN, Lucio, Gitana B, DIRECTOR CLINICAL APPLICATIONS aspirin chewable tablet 81 mg, 81 mg, Oral, Daily, Lucio, Gitana B, DIRECTOR CLINICAL APPLICATIONS atorvastatin (Lipitor) tablet 40 mg, 40 mg, Oral, Nightly, Lucio, Gitana B, DIRECTOR CLINICAL APPLICATIONS, 40 mg at 09/30/242155 bisacodyl (Dulcolax) EC tablet 10 mg, 10 mg, Oral, Daily PRN, Lucio, Gitana B, DIRECTOR CLINICAL APPLICATIONS carvedilol (Coreg) tablet 12.5 mg, 12.5 mg, Oral, BID, Lucio, Gitana B, DIRECTOR CLINICAL APPLICATIONS, 12.5 mg at 09/30/242155 clopidogrel (Plavix) tablet 75 mg, 75 mg, Oral, Daily, Lucio, Gitana B, DIRECTOR CLINICAL APPLICATIONS glucose (Glutose) 40 % oral gel 15-30 [...] mg, 250 mg, Oral, BID, Lala Valdes, DIRECTOR CLINICAL APPLICATIONS,250 mg at 09/30/242155 heparin (porcine) injection 5,000 Units, 5,000 Units, Subcutaneous, q8h RAFAT, Lala Valdes DIRECTOR CLINICAL APPLICATIONS, 5,000 Units at 10/01/24 0532 insulin lispro (Admelog) 100 units/mL injection - Correction - Standard Dose, 0- 5 Units, Subcutaneous, TID with meals, Lala Valdes APRN insulin lispro (Admelog) injection - Correction - Nighttime Dose, 0-3 Units, Subcutaneous, Twice atnight, Lala Valdes APRN melatonin tablet 3 mg, 3 mg, Oral, Nightly, Lala Valdes DIRECTOR CLINICAL APPLICATIONS, 3 mg at 09/30/242155 mupirocin (Bactroban) 2 % ointment 1 Application, 1 Application, Each Nostril, BID, Tana Wooten MD NIFEdipine XL (Procardia XL) 24 hr tablet 30 mg, 30 mg, Oral, Daily, Lala Valdes DIRECTOR CLINICAL APPLICATIONS polyethylene glycol (Miralax) packet 17 g, 17 g, Oral, Daily, Lala Valdes DIRECTOR CLINICAL APPLICATIONS sertraline (Zoloft) tablet 75 mg, 75 mg, Oral, Daily, Lala Valdes DIRECTOR CLINICAL APPLICATIONS sevelamer carbonate (Renvela) tablet 800 mg, 800 mg, Oral, TID with meals, Lala Valdes DIRECTOR CLINICAL APPLICATIONS Insert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 Blood Capillary blood specimen / Unknown 10/14/2024 4:34 PM EDT 10/14/2024 4:36 PM EDT us Lamont Brumfield MD LAB POINT OF CARE TE ST DOCKED DEVICE UNSOLICITED RESULTS Final Result Performing Organization Address City/[facility] Co de Phone Number [facility] [address] [place] [address] * (ABNORMAL) POCT glucose meter (10/14/2024 12:00 PM EDT) Pathologist [facility] POCT Glucose 139(H) 74 - 99 mg/dL [...] 10/14/2024 12:02 PM EDT [facility] Marketing Professor ID Moisés Lopez 10/14/2024 12:02 PM EDT HEALTHCARE LAB Device ID [id number] 10/14/2024 12:02 PM EDT [facility]ALTH[facility]ARE LAB Specimen Type POC Capillary 10/14/2024 12:02 PM EDT [facility] Blood Capillary blood specimen / Unknown 10/14/2024 12:00 PM EDT 10/14/2024 12:02 PM EDT us Lamont Brumfield MD LAB POINT OF CARE TE ST DOCKED DEVICE UNSOLICITED RESULTS Final Result Performing Organization Address City/[facility] Co de Phone Number [facility] [address] [place] [address] * (ABNORMAL) POCT glucose meter (10/14/2024 8:48 AM EDT) [facility] POCT Glucose 111(H) 74 - [...] Comment 10/14/2024 8:50 AM EDT [facility]ALTH[facility]ARE [facility] Marketing Professor ID Moisés Lopez 10/14/2024 8:50 AM EDT HEALTHCARE LAB Device ID [id number] 10/14/2024 8:50 AM EDT [facility]ALTH[facility]ARE LAB Specimen Type POC Capillary 10/14/2024 8:50 AM EDT [facility] Blood Capillary blood specimen / Unknown 10/14/2024 8:48 AM EDT 10/14/2024 8:50 AM EDT us Lamont Brumfield MD LAB POINT OF CARE TE ST DOCKED DEVICE UNSOLICITED RESULTS Final Result Performing Organization Address City/[facility]/ZIP Co de Phone Number [facility] [address] [place] [address] * POCT glucose meter (10/14/2024 8:32 AM EDT) [facility] POCT Glucose 89 74 - 99 mg/dL [...] Comment 10/14/2024 8:34 AM EDT [facility]ALTHCARE LAB Marketing Professor ID Moisés Lopez 10/14/2024 8:34 AM EDT HEALTHCARE LAB Device ID [id number] 10/14/2024 8:34 AM EDT [facility]ALTH[facility]ARE LAB Specimen Type POC Capillary 10/14/2024 8:34 AM EDT [facility] Blood Capillary blood specimen / Unknown 10/14/2024 8:32 AM EDT 10/14/2024 8:34 AM EDT Lamont Brumfield MD LAB POINT OF CARE TE ST DOCKED DEVICE UNSOLICITED RESULTS Final Result Performing Organization Address City/State/[facility] Co de Phone Number [facility] [address] [place] [address] * POCT glucose meter (10/14/2024 3:19 AM EDT) [facility] POCT Glucose 94 74 - 99 mg/dL [...] 10/14/2024 3:21 AM EDT [facility] Marketing Professor ID Carri Chand 10/14/2024 3:21 AM EDT HEALTHCARE LAB Device ID [id number] 10/14/2024 3:21 AM EDT [facility]ALTH[facility]ARE LAB Specimen Type POC Capillary 10/14/2024 3:21 AM EDT [facility] Blood Capillary blood specimen / Unknown 10/14/2024 3:19 AM EDT 10/14/2024 3:21 AM EDT Lamont Brumfield MD LAB POINT OF CARE TE ST DOCKED DEVICE UNSOLICITED RESULTS Final Result Performing Organization Address City/[facility] de Phone Number [facility] [address] [place] [address] * (ABNORMAL) POCT glucose meter (10/13/2024 7:12 [...] Comment 10/13/2024 7:13 PM EDT [facility]ARE [facility] Marketing Professor ID Grazyna Bhakta 025 7:13 PM EDT HEALTHCARE LAB Device ID [id number] 10/13/2024 7:13 PM EDT [facility]ALTH[facility]ARE LAB Specimen Type POC Capillary 10/13/2024 7:13 PM EDT [facility] Blood Capillary blood specimen / Unknown 10/13/2024 7:12 PM EDT 10/13/2024 7:13 PM EDT us Lamont Brumfield MD LAB POINT OF CARE TE ST DOCKED DEVICE UNSOLICITED RESULTS Final Result Performing Organization Address City/[facility] Co de Phone Number [facility] [address] [place] [address] * (ABNORMAL) POCT glucose meter (10/13/2024 5:49 [...] 10/13/2024 5:51 PM EDT [facility] Marketing Professor ID Moisés Lopez 10/13/2024 5:51 PM EDT [facility] Device ID [id number] 10/13/2024 5:51 PM EDT [facility] Specimen Type POC Capillary 10/13/2024 5:51 PM EDT [facility] Blood Capillary blood specimen / Unknown 10/13/2024 5:49 PM EDT 10/13/2024 5:51 PM EDT us Lamont Brumfield MD LAB POINT OF CARE TE ST DOCKED DEVICE UNSOLICITED RESULTS Final Result [facility] [address] [place] [address] * POCT glucose meter (10/13/2024 4:44 PM EDT) [facility] POCT Glucose 90 74 - 99 mg/dL [...] 10/13/2024 4:45 PM EDT [facility] Marketing Professor ID Moisés Lopez 10/13/2024 4:45 PM EDT [facility] Device ID [id number] 10/13/2024 4:45 PM EDT [facility] Specimen Type POC Capillary 10/13/2024 4:45 PM EDT [facility] Blood Capillary blood specimen / Unknown 10/13/2024 4:44 PM EDT 10/13/2024 4:45 PM EDT us Lamont Brumfield MD LAB POINT OF CARE TE ST DOCKED DEVICE UNSOLICITED RESULTS Final Result Performing Organization Address [facility] Co de Phone Number [facility] [address] [place] [address] * (ABNORMAL) POCT glucose meter (10/13/2024 11:59 AM EDT) [facility] POCT Glucose 159(H) 74 - 99 mg/dL [...] Comment 10/13/2024 12:00 PM EDT [facility]ALTHCARE LAB Marketing Professor ID Moisés Lopez 10/13/2024 12:00 PM EDT HEALTHCARE LAB Device ID [id number] 10/13/2024 12:00 PM EDT [facility]ALTH[facility]ARE LAB Specimen Type POC Capillary 10/13/2024 12:00 PM EDT [facility] Blood Capillary blood specimen / Unknown 10/13/2024 11:59 AM EDT 10/13/2024 12:00 PM EDT Lamont Brumfield MD LAB POINT OF CARE TE ST DOCKED DEVICE UNSOLICITED RESULTS Final Result Performing Organization Address [facility] de Phone Number [facility] [address] [place] [address] * (ABNORMAL) POCT glucose meter (10/13/2024 10:43 AM EDT) [facility] POCT Glucose 151(H) 74 - 99 mg/dL [...] 10/13/2024 10:45 AM EDT [facility] Marketing Professor ID Moisés Lopez 10/13/2024 10:45 AM EDT HEALTH[facility]ARE LAB Device ID [id number] 10/13/2024 10:45 AM EDT [facility] Specimen Type POC Capillary 10/13/2024 10:45 AM EDT [facility] Blood Capillary blood specimen / Unknown 10/13/2024 10:43 AM EDT 10/13/2024 10:45 AM EDT Lamont Brumfield MD LAB POINT OF CARE TE ST DOCKED DEVICE UNSOLICITED RESULTS Final Result Performing Organization Address City/[facility] Co de Phone Number [facility] [address] [place] [address] * POCT glucose meter (10/13/2024 9:20 AM [...] 10/13/2024 9:21 AM EDT [facility] Marketing Professor ID Moisés Lopez 10/13/2024 9:21 AM EDT [facility] Device ID [id number] 10/13/2024 9:21 AM EDT [facility] Specimen Type POC Capillary 10/13/2024 9:21 AM EDT [facility]ALTH[facility] LAB Blood Capillary blood specimen / Unknown 10/13/2024 9:20 AM EDT 10/13/2024 9:21 AM EDT us Lamont Brumfield MD LAB POINT OF CARE TE ST DOCKED DEVICE UNSOLICITED RESULTS Final Result Performing Organization Address City/[facility] Co de Phone Number [facility] [address] [place] [address] * POCT glucose meter (10/13/2024 8:44 AM [...] 10/13/2024 8:47 AM EDT [facility] Marketing Professor ID Moisés Lopez 10/13/2024 8:47 AM EDT HEALTHCARE LAB Device ID [id number] 10/13/2024 8:47 AM EDT HEALTHCARE LAB Specimen Type POC Capillary 10/13/2024 8:47 AM EDT [facility]ALTH[facility] Blood Capillary blood specimen / Unknown 10/13/2024 8:44 AM EDT 10/13/2024 8:47 AM EDT Lamont Brumfield MD LAB POINT OF CARE TE ST DOCKED DEVICE UNSOLICITED RESULTS Final Result [facility] [address] [place] [address] * (ABNORMAL) POCT glucose meter (10/12/2024 8:07 PM EDT) [facility] POCT Glucose 123(H) 74 - 99 mg/dL [...] 10/12/2024 8:09 PM EDT [facility] Marketing Professor ID Day Nicole 10/12/2024 8:09 PM EDT [facility] Device ID [id number] 10/12/2024 8:09 PM EDT [facility] Specimen Type POC Capillary 10/12/2024 8:09 PM EDT [facility]ALTH[facility] Blood Capillary blood specimen / Unknown 10/12/2024 8:07 PM EDT 10/12/2024 8:09 PM EDT Lamont Brumfield MD LAB POINT OF CARE TE ST DOCKED DEVICE UNSOLICITED RESULTS Final Result Performing Organization Address [facility] de Phone Number HEALTHCARE LAB [address] [place] [address] * (ABNORMAL) POCT glucose meter (10/12/2024 5:32 PM EDT) [facility] POCT Glucose 104(H) 74 - 99 mg/dL [...] Comment 10/12/2024 5:33 PM EDT HEALTHCARE LAB Marketing Professor ID Arlene Kerr 10/12/2024 5:33 PM EDT HEALTHCARE LAB Device ID [id number] 10/12/2024 5:33 PM EDT HEALTHCARE LAB Specimen Type POC Capillary 10/12/2024 5:33 PM EDT HEALTHCARE LAB Blood Capillary blood specimen / Unknown 10/12/2024 5:32 PM EDT 10/12/2024 5:33 PM EDT Lamont Brumfield MD LAB POINT OF CARE TE ST DOCKED DEVICE UNSOLICITED RESULTS Final Result Performing Organization Address City/[facility] Co de Phone Number [facility] [address] [place] [address] * POCT glucose meter (10/12/2024 5:00 PM EDT) [facility] POCT Glucose 82 74 - 99 mg/dL [...] Comment 10/12/2024 5:02 PM EDT HEALTHCARE LAB Marketing Professor Arlene Humphries 10/12/2024 5:02 PM EDT HEALTHCARE LAB Device ID [id number] 10/12/2024 5:02 PM EDT HEALTHCARE LAB Specimen Type POC Capillary 10/12/2024 5:02 PM EDT HEALTHCARE LAB Blood Capillary blood specimen / Unknown 10/12/2024 5:00 PM EDT 10/12/2024 5:02 PM EDT us Lamont Brumfield MD LAB POINT OF CARE TE ST DOCKED DEVICE UNSOLICITED RESULTS Final Result Performing Organization Address City/[facility]/ZIP Co de Phone Number HEALTHCARE LAB [address] [place] [address] * (ABNORMAL) POCT glucose meter (10/12/2024 12:02 PM EDT) [facility] POCT Glucose 171(H) 74 - 99 mg/dL [...] 10/12/2024 12:04 PM EDT [facility] Marketing Professor Arlene Humphries 10/12/2024 12:04 PM EDT HEALTHCARE LAB Device ID [id number] 10/12/2024 12:04 PM EDT HEALTHCARE LAB Specimen Type POC Capillary 10/12/2024 12:04 PM EDT HEALTHCARE LAB Blood Capillary blood specimen / Unknown 10/12/2024 12:02 PM EDT 10/12/2024 12:04 PM EDT us Lamont Brumfield MD LAB POINT OF CARE TE ST DOCKED DEVICE UNSOLICITED RESULTS Final Result [facility] [address] [place] [address] * POCT glucose meter (10/12/2024 8:38 AM EDT) [facility] POCT Glucose 95 74 - 99 mg/dL [...] 10/12/2024 8:39 AM EDT [facility] Marketing Professor Arlene Humphries 10/12/2024 8:39 AM EDT [facility] Device ID [id number] 10/12/2024 8:39 AM EDT [facility] Specimen Type POC Capillary 10/12/2024 8:39 AM EDT HEALTHCARE LAB Blood Capillary blood specimen / Unknown 10/12/2024 8:38 AM EDT 10/12/2024 8:39 AM EDT Lamont Brumfield MD LAB POINT OF CARE TE ST DOCKED DEVICE UNSOLICITED RESULTS Final Result [facility] [address] [place] [address] * POCT glucose meter (10/12/2024 8:00 AM EDT) [facility] POCT Glucose 88 74 - 99 mg/dL [...] 10/12/2024 8:01 AM EDT [facility] Marketing Professor NORMAN Cirilo Arlene 10/12/2024 8:01 AM EDT [facility] Device ID [id number] 10/12/2024 8:01 AM EDT [facility] Specimen Type POC Capillary 10/12/2024 8:01 AM EDT HEALTHCARE LAB Blood Capillary blood specimen / Unknown 10/12/2024 8:00 AM EDT 10/12/2024 8:01 AM EDT Lamont Brumfield MD LAB POINT OF CARE TE ST DOCKED DEVICE UNSOLICITED RESULTS Final Result Performing Organization Address City/[facility]/ZIP Co de Phone Number HEALTHCARE LAB [address] [place] [address] * (ABNORMAL) POCT glucose meter (10/11/2024 7:34 [...] Comment 10/11/2024 7:35 PM EDT HEALTHCARE LAB Marketing Professor ID Day Nicole 10/11/2024 7:35 PM EDT HEALTHCARE LAB Device ID [id number] 10/11/2024 7:35 PM EDT HEALTHCARE LAB Specimen Type POC Capillary 10/11/2024 7:35 PM EDT HEALTHCARE LAB Blood Capillary blood specimen / Unknown 10/11/2024 7:34 PM EDT 10/11/2024 7:35 PM EDT us Lamont Brumfield MD LAB POINT OF CARE TE ST DOCKED DEVICE UNSOLICITED RESULTS Final Result [facility] [address] [place] [address] * (ABNORMAL) POCT glucose meter (10/11/2024 4:34 [...] 10/11/2024 4:37 PM EDT [facility] Marketing Professor ID Amara Zhang 4:37 PM EDT [facility] Device ID [id number] 10/11/2024 4:37 PM EDT [facility] Specimen Type POC Capillary 10/11/2024 4:37 PM EDT HEALTHCARE LAB Blood Capillary blood specimen / Unknown 10/11/2024 4:34 PM EDT 10/11/2024 4:37 PM EDT Lamont Brumfield MD LAB POINT OF CARE TE ST DOCKED DEVICE UNSOLICITED RESULTS Final Result [facility] [address] [place] [address] * (ABNORMAL) POCT glucose meter (10/11/2024 2:18 PM EDT) [facility] POCT Glucose 117(H) 74 - 99 mg/dL [...] 10/11/2024 2:37 PM EDT [facility] Marketing Professor ID Amara Zhang 2:37 PM EDT [facility] Device ID [id number] 10/11/2024 2:37 PM EDT [facility] Specimen Type POC Capillary 10/11/2024 2:37 PM EDT [facility] Blood Capillary blood specimen / Unknown 10/11/2024 2:18 PM EDT 10/11/2024 2:37 PM EDT Lamont Brumfield MD LAB POINT OF CARE TE ST DOCKED DEVICE UNSOLICITED RESULTS Final Result Performing Organization Address City/[facility] Co de Phone Number HEALTHCARE LAB [address] [place] [address] * (ABNORMAL) POCT glucose meter (10/11/2024 8:37 [...] Comment 10/11/2024 8:38 AM EDT HEALTHCARE LAB Marketing Professor ID Moisés Lopez 10/11/2024 8:38 AM EDT HEALTHCARE LAB Device ID [id number] 10/11/2024 8:38 AM EDT [facility] Specimen Type POC Capillary 10/11/2024 8:38 AM EDT [facility] Blood Capillary blood specimen / Unknown 10/11/2024 8:37 AM EDT 10/11/2024 8:38 AM EDT Lamont Brumfield MD LAB POINT OF CARE TE ST DOCKED DEVICE UNSOLICITED RESULTS Final Result Performing Organization Address City/[facility] Co de Phone Number [facility] [address] [place] [address] * (ABNORMAL) POCT glucose meter (10/10/2024 7:34 [...] 10/10/2024 7:36 PM EDT [facility] Marketing Professor ID Blair Murray 10/11/19 7:36 PM EDT [facility] Device ID [id number] 10/10/2024 7:36 PM EDT [facility] Specimen Type POC Capillary 10/10/2024 7:36 PM EDT HEALTHCARE LAB Blood Capillary blood specimen / Unknown 10/10/2024 7:34 PM EDT 10/10/2024 7:36 PM EDT us Lamont Brumfield MD LAB POINT OF CARE TE ST DOCKED DEVICE UNSOLICITED RESULTS Final Result Performing Organization Address [facility] Co de Phone Number HEALTHCARE LAB [address] [place] [address] * (ABNORMAL) POCT glucose meter (10/10/2024 4:26 [...] Comment 10/10/2024 4:28 PM EDT HEALTHCARE LAB Marketing Professor ID Lio Gomez 10/10/2024 4:28 PM EDT HEALTHCARE LAB Device ID [id number] 10/10/2024 4:28 PM EDT HEALTHCARE LAB Specimen Type POC Capillary 10/10/2024 4:28 PM EDT HEALTHCARE LAB Blood Capillary blood specimen / Unknown 10/10/2024 4:26 PM EDT 10/10/2024 4:28 PM EDT us Lamont Brumfield MD LAB POINT OF CARE TE ST DOCKED DEVICE UNSOLICITED RESULTS Final Result Performing Organization Address City/[facility]/ZIP Co de Phone Number HEALTHCARE LAB [address] [place] [address] * (ABNORMAL) POCT glucose meter (10/10/2024 12:07 PM EDT) [facility] POCT Glucose 145(H) 74 - 99 mg/dL [...] 10/10/2024 12:09 PM EDT [facility] Marketing Professor ID Lio Gomez 10/10/2024 12:09 PM EDT [facility] Device ID [id number] 10/10/2024 12:09 PM EDT HEALTHCARE LAB Specimen Type POC Capillary 10/10/2024 12:09 PM EDT HEALTHCARE LAB Blood Capillary blood specimen / Unknown 10/10/2024 12:07 PM EDT 10/10/2024 12:09 PM EDT Lamont Brumfield MD LAB POINT OF CARE TE ST DOCKED DEVICE UNSOLICITED RESULTS Final Result [facility] [address] [place] [address] * (ABNORMAL) POCT glucose meter (10/10/2024 9:40 AM EDT) [facility] POCT Glucose 162(H) 74 - 99 mg/dL [...] 10/10/2024 9:41 AM EDT [facility] Marketing Professor ID Lio Gomez 10/10/2024 9:41 AM EDT [facility]ALTHCARE LAB Device ID [id number] 10/10/2024 9:41 AM EDT [facility] Specimen Type POC Capillary 10/10/2024 9:41 AM EDT HEALTHCARE LAB Blood Capillary blood specimen / Unknown 10/10/2024 9:40 AM EDT 10/10/2024 9:41 AM EDT Lamont Brumfield MD LAB POINT OF CARE TE ST DOCKED DEVICE UNSOLICITED RESULTS Final Result Performing Organization Address City/[facility]/ZIP Co de Phone Number HEALTHCARE LAB [address] [place] [address] * (ABNORMAL) POCT glucose meter (10/10/2024 9:00 [...] Comment 10/10/2024 9:01 AM EDT HEALTHCARE LAB Marketing Professor ID Rose Guy 025 9:01 AM EDT HEALTHCARE LAB Device ID [id number] 10/10/2024 9:01 AM EDT HEALTHCARE LAB Specimen Type POC Capillary 10/10/2024 9:01 AM EDT HEALTHCARE LAB Blood Capillary blood specimen / Unknown 10/10/2024 9:00 AM EDT 10/10/2024 9:01 AM EDT us Lamont Brumfield MD LAB POINT OF CARE TE ST DOCKED DEVICE UNSOLICITED RESULTS Final Result Performing Organization Address City/[facility]/ZIP Co de Phone Number HEALTHCARE LAB [address] [place] [address] * (ABNORMAL) POCT glucose meter (10/09/2024 8:22 [...] 10/09/2024 8:24 PM EDT [facility] Marketing Professor ID Marilee Sevilla 8:24 PM EDT [facility] Device ID [id number] 10/09/2024 8:24 PM EDT [facility] Specimen Type POC Capillary 10/09/2024 8:24 PM EDT HEALTHCARE LAB Blood Capillary blood specimen / Unknown 10/09/2024 8:22 PM EDT 10/09/2024 8:24 PM EDT Lamont Brumfield MD LAB POINT OF CARE TE ST DOCKED DEVICE UNSOLICITED RESULTS Final Result Performing Organization Address City/State/[facility] Co de Phone Number [facility] [address] [place] [address] * (ABNORMAL) POCT glucose meter (10/09/2024 4:43 PM EDT) [facility] POCT Glucose 176(H) 74 - 99 mg/dL [...] 10/09/2024 4:45 PM EDT [facility] Marketing Professor ID Lio Gomez 10/09/2024 4:45 PM EDT [facility] Device ID [id number] 10/09/2024 4:45 PM EDT [facility] Specimen Type POC Capillary 10/09/2024 4:45 PM EDT HEALTHCARE LAB Blood Capillary blood specimen / Unknown 10/09/2024 4:43 PM EDT 10/09/2024 4:45 PM EDT us Lamont Brumfield MD LAB POINT OF CARE TE ST DOCKED DEVICE UNSOLICITED RESULTS Final Result Performing Organization Address City/[facility] Co de Phone Number HEALTHCARE LAB [address] [place] [address] * (ABNORMAL) Hemoglobin and Hematocrit, Blood (10/09/2024 3:45 PM EDT) [facility] HGB 8.2(L) 13.7 - 17.5 g/dL LAB HEMATOLOGY METHOD 10/09/2024 3:54 PM EDT [facility] HCT 23.7(L) 40.0 - 51.0 % LAB HEMATOLOGY METHOD 10/09/2024 3:54 PM EDT [facility] Blood Arterial blood specimen / Unknown Arterial Puncture / Unknown 10/09/2024 3:45 PM EDT 10/09/2024 3:52 PM EDT us Daphne Landry DIRECTOR CLINICAL APPLICATIONS, DNP LAB BLOOD ORDERABLES Selene l Result Performing Organization Address City/[facility] de Phone Number HEALTHCARE LAB [address] [place] [address] * (ABNORMAL) POCT glucose meter (10/09/2024 8:01 AM EDT) [facility] POCT Glucose 100(H) 74 - 99 mg/dL [...] Comment 10/09/2024 11:23 AM EDT HEALTHCARE LAB Marketing Professor ID Lio Gomez 10/09/2024 11:23 AM EDT HEALTHCARE LAB Device ID [id number] 10/09/2024 11:23 AM EDT [facility] Specimen Type POC Capillary 10/09/2024 11:23 AM EDT [facility] Blood Capillary blood specimen / Unknown 10/09/2024 8:01 AM EDT 10/09/2024 11:23 AM EDT Lamont Brumfield MD LAB POINT OF CARE TE ST DOCKED DEVICE UNSOLICITED RESULTS Final Result Performing Organization Address [facility] de Phone Number HEALTHCARE LAB [address] [place] [address] * (ABNORMAL) POCT glucose meter (10/08/2024 7:37 PM EDT) Pathologist [facility] POCT Glucose 138(H) 74 - 99 mg/dL [...] Comment 10/08/2024 7:39 PM EDT HEALTHCARE LAB Marketing Professor ID Grazyna Bhakta 025 7:39 PM EDT HEALTHCARE LAB Device ID [id number] 10/08/2024 7:39 PM EDT HEALTHCARE LAB Specimen Type POC Capillary 10/08/2024 7:39 PM EDT [facility] Blood Capillary blood specimen / Unknown 10/08/2024 7:37 PM EDT 10/08/2024 7:39 PM EDT Lamont Brumfield MD LAB POINT OF CARE TE ST DOCKED DEVICE UNSOLICITED RESULTS Final Result Performing Organization Address City/[facility] de Phone Number [facility] [address] [place] [address] * (ABNORMAL) POCT glucose meter (10/08/2024 4:42 PM EDT) Pathologist [facility] POCT Glucose 109(H) 74 - 99 mg/dL [...] Comment 10/08/2024 4:43 PM EDT HEALTHCARE LAB Marketing Professor ID Lio Gomez 10/08/2024 4:43 PM EDT [facility] Device ID [id number] 10/08/2024 4:43 PM EDT [facility] Specimen Type POC Capillary 10/08/2024 4:43 PM EDT HEALTHCARE LAB Blood Capillary blood specimen / Unknown 10/08/2024 4:42 PM EDT 10/08/2024 4:43 PM EDT us Lamont Brumfield MD LAB POINT OF CARE TE ST DOCKED DEVICE UNSOLICITED RESULTS Final Result Performing Organization Address City/[facility] Co de Phone Number HEALTHCARE LAB [address] [place] [address] * (ABNORMAL) POCT glucose meter (10/08/2024 12:11 PM EDT) [facility] POCT Glucose 252(H) 74 - 99 mg/dL [...] Comment 10/08/2024 12:13 PM EDT HEALTHCARE LAB Marketing Professor ID Lio Gomez 10/08/2024 12:13 PM EDT HEALTHCARE LAB Device ID [id number] 10/08/2024 12:13 PM EDT HEALTHCARE LAB Specimen Type POC Capillary 10/08/2024 12:13 PM EDT HEALTHCARE LAB Blood Capillary blood specimen / Unknown 10/08/2024 12:11 PM EDT 10/08/2024 12:13 PM EDT us Lamont Brumfield MD LAB POINT OF CARE TE ST DOCKED DEVICE UNSOLICITED RESULTS Final Result Performing Organization Address City/[facility]/ZIP Co de Phone Number [facility] [address] [place] [address] * (ABNORMAL) POCT glucose meter (10/08/2024 8:21 AM EDT) [facility] POCT Glucose 108(H) 74 - 99 mg/dL [...] 10/08/2024 8:22 AM EDT [facility] Marketing Professor ID Lio Gomez 10/08/2024 8:22 AM EDT [facility] LAB Device ID [id number] 10/08/2024 8:22 AM EDT HEALTHCARE LAB Specimen Type POC Capillary 10/08/2024 8:22 AM EDT HEALTHCARE LAB Blood Capillary blood specimen / Unknown 10/08/2024 8:21 AM EDT 10/08/2024 8:22 AM EDT Lamont Brumfield MD LAB POINT OF CARE TE ST DOCKED DEVICE UNSOLICITED RESULTS Final Result [facility] [address] [place] [address] * (ABNORMAL) POCT glucose meter (10/07/2024 9:10 PM EDT) [facility] POCT Glucose 134(H) 74 - 99 mg/dL [...] 10/07/2024 9:12 PM EDT [facility] Marketing Professor ID Marilee Sevilla 9:12 PM EDT [facility] Device ID [id number] 10/07/2024 9:12 PM EDT HEALTHCARE LAB Specimen Type POC Capillary 10/07/2024 9:12 PM EDT HEALTHCARE LAB Blood Capillary blood specimen / Unknown 10/07/2024 9:10 PM EDT 10/07/2024 9:12 PM EDT us Lamont Brumfield MD LAB POINT OF CARE TE ST DOCKED DEVICE UNSOLICITED RESULTS Final Result Performing Organization Address City/[facility]/ZIP Co de Phone Number [facility] [address] [place] [address] * (ABNORMAL) POCT glucose meter (10/07/2024 4:28 [...] Comment 10/07/2024 4:30 PM EDT HEALTHCARE LAB Marketing Professor ID Moisés Lopez 10/07/2024 4:30 PM EDT HEALTHCARE LAB Device ID [id number] 10/07/2024 4:30 PM EDT HEALTHCARE LAB Specimen Type POC Capillary 10/07/2024 4:30 PM EDT [facility] Blood Capillary blood specimen / Unknown 10/07/2024 4:28 PM EDT 10/07/2024 4:30 PM EDT us Leda Zeng MD LAB POIN T OF CARE TEST DOCKED DEVICE UNSOLICITED RESULTS Final Result Performing Organization Address City/[facility] Co de Phone Number [facility]ALTHCARE LAB [address] [place] [address] * (ABNORMAL) POCT glucose meter (10/07/2024 1:04 [...] 10/07/2024 1:06 PM EDT [facility] Marketing Professor ID Dorothea Rai 1:06 PM EDT [facility] Device ID [id number] 10/07/2024 1:06 PM EDT HEALTHCARE LAB Specimen Type POC Capillary 10/07/2024 1:06 PM EDT HEALTHCARE LAB Blood Capillary blood specimen / Unknown 10/07/2024 1:04 PM EDT 10/07/2024 1:06 PM EDT Leda Zeng MD LAB POIN T OF CARE TEST DOCKED DEVICE UNSOLICITED RESULTS Final Result [facility] [address] [place] [address] * (ABNORMAL) POCT glucose meter (10/07/2024 8:24 AM EDT) [facility] POCT Glucose 116(H) 74 - 99 mg/dL [...] 10/07/2024 8:26 AM EDT [facility] Marketing Professor ID Moisés Lopez 10/07/2024 8:26 AM EDT [facility] Device ID [id number] 10/07/2024 8:26 AM EDT [facility] Specimen Type POC Capillary 10/07/2024 8:26 AM EDT HEALTHCARE LAB Blood Capillary blood specimen / Unknown 10/07/2024 8:24 AM EDT 10/07/2024 8:26 AM EDT Leda Zeng MD LAB POIN T OF CARE TEST DOCKED DEVICE UNSOLICITED RESULTS Final Result Performing Organization Address [facility] de Phone Number HEALTHCARE LAB [address] [place] [address] * POCT glucose meter (10/07/2024 7:37 AM EDT) Pathologist [facility] POCT Glucose 85 74 - 99 mg/dL [...] Comment 10/07/2024 7:39 AM EDT HEALTHCARE LAB Marketing Professor ID Moisés Lopez 10/07/2024 7:39 AM EDT HEALTHCARE LAB Device ID [id number] 10/07/2024 7:39 AM EDT HEALTHCARE LAB Specimen Type POC Capillary 10/07/2024 7:39 AM EDT [facility] Blood Capillary blood specimen / Unknown 10/07/2024 7:37 AM EDT 10/07/2024 7:39 AM EDT Leda Zeng MD LAB POIN T OF CARE TEST DOCKED DEVICE UNSOLICITED RESULTS Final Result Performing Organization Address City/[facility] Co de Phone Number [facility]ARE [facility] [address] [place] [address] * (ABNORMAL) Magnesium, Plasma (10/07/2024 2:48 AM EDT) Pathologist [facility] Magnesium, Plasma 1.6(L) 1.9 - 2.4 mg/dL 10/07/2024 3:28 AM EDT HEALTHCARE LAB Blood Venous blood specimen / Unknown Venipuncture / Unknown 10/07/2024 2:48 AM EDT 10/07/2024 2:58 AM EDT us Leda Zeng MD LAB BLOOD ORDERA BLES Final Result [facility] [address] [place] [address] * (ABNORMAL) Renal Function Panel, Plasma (10/07/2024 2:48 AM EDT) Glucose, Plasma 96 74 - 99 mg/dL 10/07/2024 3:28 AM EDT [facility] BUN, Plasma 41(H) 8 - 23 mg/dL 10/07/2024 3:28 AM EDT [facility] Creatinine, Plasma 6.91(H) 0.70 - 1.20 mg/dL 10/07/2024 3:28 AM EDT [facility] BUN/Creatinine Ratio 6 10/07/2024 3:28 AM EDT [facility] Sodium, Plasma 125(L) 136 - 145 mmol/L 10/07/2024 3:28 AM EDT [facility] Potassium, Plasma 4.1 3.6 - 4.9 mmol/L 10/07/2024 3:28 AM EDT [facility] Chloride, Plasma 92(L) 97 - 107 mmol/L 10/07/2024 3:28 AM EDT [facility] CO2, Plasma 23 22 - 29 mmol/L 10/07/2024 3:28 AM EDT [facility] Anion Gap 10 6 - 16 mmol/L 10/07/2024 3:28 AM EDT [facility] Total Calcium, Plasma 7.2(L) 8.9 - 10.2 mg/dL 10/07/2024 3:28 AM EDT [facility] Phosphorus, Plasma 4.2 2.5 - 4.5 mg/dL 10/07/2024 3:28 AM EDT [facility] Albumin, Plasma 3.1(L) 3.5 - 5.2 g/dL 10/07/2024 3:28 AM EDT [facility] eGFRcr 8.2 mL/min/1.7 3m*2 10/07/2024 3:28 AM EDT [facility] Comment:Reported eGFRcr in m L/min/1.73m2 is based the CKD-EPI 2020 equation that does not use a race coefficient. Blood Venous blood specimen / Unknown Venipuncture / Unknown 10/07/2024 2:48 AM EDT 10/07/2024 2:58 AM EDT Leda Zeng MD LAB BLOOD ORDERA BLES Final Result Performing Organization Address [facility] Co de Phone Number [facility] [address] [place] [address] * (ABNORMAL) POCT glucose meter (10/06/2024 7:42 [...] for testing. Comment 10/06/2024 7:44 PM EDT [facility] Marketing Professor ID Grazyna Bhakta 025 7:44 PM EDT [facility] Device ID [id number] 10/06/2024 7:44 PM EDT [facility] Specimen Type POC Capillary 10/06/2024 7:44 PM EDT [facility] Blood Capillary blood specimen / Unknown 10/06/2024 7:42 PM EDT 10/06/2024 7:44 PM EDT Leda Zeng MD LAB POIN T OF CARE TEST DOCKED DEVICE UNSOLICITED RESULTS Final Result Performing Organization Address City/[facility] Co de Phone Number [facility]ARE [facility] [address] [place] [address] * (ABNORMAL) POCT glucose meter (10/06/2024 5:00 [...] Comment 10/06/2024 5:01 PM EDT HEALTHCARE LAB Marketing Professor ID Moisés Lopez 10/06/2024 5:01 PM EDT HEALTHCARE LAB Device ID [id number] 10/06/2024 5:01 PM EDT HEALTHCARE LAB Specimen Type POC Capillary 10/06/2024 5:01 PM EDT [facility]ALTH[facility]ARE LAB Blood Capillary blood specimen / Unknown 10/06/2024 5:00 PM EDT 10/06/2024 5:01 PM EDT us Leda Zeng MD LAB POIN T OF CARE TEST DOCKED DEVICE UNSOLICITED RESULTS Final Result [facility] [address] [place] [address] * (ABNORMAL) POCT glucose meter (10/06/2024 12:03 PM EDT) [facility] POCT Glucose 122(H) 74 - 99 mg/dL [...] Comment 10/06/2024 12:05 PM EDT HEALTHCARE LAB Marketing Professor ID Moisés Lopez 10/06/2024 12:05 PM EDT HEALTHCARE LAB Device ID [id number] 10/06/2024 12:05 PM EDT HEALTHCARE LAB Specimen Type POC Capillary 10/06/2024 12:05 PM EDT [facility]ALTH[facility]ARE LAB Blood Capillary blood specimen / Unknown 10/06/2024 12:03 PM EDT 10/06/2024 12:05 PM EDT us Leda Zeng MD LAB POIN T OF CARE TEST DOCKED DEVICE UNSOLICITED RESULTS Final Result Performing Organization Address City/[facility]/ZIP Co de Phone Number [facility]ARE [facility] [address] [place] [address] * POCT glucose meter (10/06/2024 11:10 AM [...] for testing. Comment 10/06/2024 11:12 AM EDT [facility] Marketing Professor ID Moisés Lopez 10/06/2024 11:12 AM EDT [facility] Device ID [id number] 10/06/2024 11:12 AM EDT [facility] Specimen Type POC Capillary 10/06/2024 11:12 AM EDT [facility] Blood Capillary blood specimen / Unknown 10/06/2024 11:10 AM EDT 10/06/2024 11:12 AM EDT Leda Zeng MD LAB POIN T OF CARE TEST DOCKED DEVICE UNSOLICITED RESULTS Final Result Performing Organization Address [facility] Co de Phone Number [facility] [address] [place] [address] * (ABNORMAL) Magnesium, Plasma (10/06/2024 3:05 AM EDT) Magnesium, Plasma 1.8(L) 1.9 - 2.4 mg/dL 10/06/2024 3:55 AM EDT [facility] Blood Venous blood specimen / Unknown Venipuncture / Unknown 10/06/2024 3:05 AM EDT 10/06/2024 3:27 AM EDT Leda Zeng MD LAB BLOOD ORDERA BLES Final Result [facility] [address] [place] [address] * (ABNORMAL) Renal Function Panel, Plasma (10/06/2024 3:05 AM EDT) Glucose, Plasma 103(H) 74 - 99 mg/dL 10/06/2024 3:55 AM EDT [facility] BUN, Plasma 30(H) 8 - 23 mg/dL 10/06/2024 3:55 AM EDT [facility] Creatinine, Plasma 5.95(H) 0.70 - 1.20 mg/dL 10/06/2024 3:55 AM EDT [facility] BUN/Creatinine Ratio 5 10/06/2024 3:55 AM EDT [facility] Sodium, Plasma 125(L) 136 - 145 mmol/L 10/06/2024 3:55 AM EDT [facility] Potassium, Plasma 3.8 3.6 - 4.9 mmol/L 10/06/2024 3:55 AM EDT [facility] Chloride, Plasma 92(L) 97 - 107 mmol/L 10/06/2024 3:55 AM EDT [facility] CO2, Plasma 23 22 - 29 mmol/L 10/06/2024 3:55 AM EDT [facility] Anion Gap 10 6 - 16 mmol/L 10/06/2024 3:55 AM EDT [facility] Total Calcium, Plasma 7.5(L) 8.9 - 10.2 mg/dL 10/06/2024 3:55 AM EDT [facility] [facility] Phosphorus, Plasma 3.5 2.5 - 4.5 mg/dL 10/06/2024 3:55 AM EDT [facility] Albumin, Plasma 3.2(L) 3.5 - 5.2 g/dL 10/06/2024 3:55 AM EDT [facility] eGFRcr 9.8 mL/min/1.7 3m*2 10/06/2024 3:55 AM EDT [facility] Comment:Reported eGFRcr in m L/min/1.73m2 is based the CKD-EPI 2020 equation that does not use a race coefficient. Blood Venous blood specimen / Unknown Venipuncture / Unknown 10/06/2024 3:05 AM EDT 10/06/2024 3:27 AM EDT Leda Zeng MD LAB BLOOD ORDERA BLES Final Result Performing Organization Address [facility] Co de Phone Number [facility] [address] [place] [address] * (ABNORMAL) POCT glucose meter (10/05/2024 8:10 [...] for testing. Comment 10/05/2024 8:12 PM EDT [facility] Marketing Professor ID MazWilbur schroeder 10/05/2024 8:12 PM EDT [facility] Device ID [id number] 10/05/2024 8:12 PM EDT [facility] Specimen Type POC Capillary 10/05/2024 8:12 PM EDT [facility] Blood Capillary blood specimen / Unknown 10/05/2024 8:10 PM EDT 10/05/2024 8:12 PM EDT Leda Zeng MD LAB POIN T OF CARE TEST DOCKED DEVICE UNSOLICITED RESULTS Final Result Performing Organization Address [facility] Co de Phone Number [facility] [address] [place] [address] * (ABNORMAL) POCT glucose meter (10/05/2024 4:21 [...] Comment 10/05/2024 4:23 PM EDT [facility] Marketing Professor ID Ricco Piper 10/05/2024 4:23 PM EDT [facility] Device ID [id number] 10/05/2024 4:23 PM EDT [facility] Specimen Type POC Capillary 10/05/2024 4:23 PM EDT [facility] Blood Capillary blood specimen / Unknown 10/05/2024 4:21 PM EDT 10/05/2024 4:23 PM EDT Leda Zeng MD LAB POIN T OF CARE TEST DOCKED DEVICE UNSOLICITED RESULTS Final Result Performing Organization Address [facility] de Phone Number [facility] [address] [place] [address] * (ABNORMAL) POCT glucose meter (10/05/2024 11:52 [...] Comment 10/05/2024 12:00 PM EDT [facility] Marketing Professor ID Ricco Piper 10/05/2024 12:00 PM EDT [facility] Device ID [id number] 10/05/2024 12:00 PM EDT [facility] Specimen Type POC Capillary 10/05/2024 12:00 PM EDT [facility] Blood Capillary blood specimen / Unknown 10/05/2024 11:52 AM EDT 10/05/2024 12:00 PM EDT Leda Zeng MD LAB POIN T OF CARE TEST DOCKED DEVICE UNSOLICITED RESULTS Final Result Performing Organization Address City/[facility] Co de Phone Number [facility] [address] [place] [address] * (ABNORMAL) POCT glucose meter (10/05/2024 9:09 AM EDT) [facility] POCT Glucose 130(H) 74 - 99 mg/dL [...] for testing. Comment 10/05/2024 9:12 AM EDT [facility] Marketing Professor ID Ricco Piper 10/05/2024 9:12 AM EDT [facility] Device ID [id number] 10/05/2024 9:12 AM EDT [facility] Specimen Type POC Capillary 10/05/2024 9:12 AM EDT [facility] Blood Capillary blood specimen / Unknown 10/05/2024 9:09 AM EDT 10/05/2024 9:12 AM EDT Leda Zeng MD LAB POIN T OF CARE TEST DOCKED DEVICE UNSOLICITED RESULTS Final Result [facility] [address] [place] [address] * POCT glucose meter (10/05/2024 7:47 AM EDT) [facility] POCT Glucose 89 74 - 99 mg/dL [...] for testing. Comment 10/05/2024 7:52 AM EDT [facility] Marketing Professor ID Ricco Piper 10/05/2024 7:52 AM EDT [facility] Device ID [id number] 10/05/2024 7:52 AM EDT [facility] Specimen Type POC Capillary 10/05/2024 7:52 AM EDT [facility] Blood Capillary blood specimen / Unknown 10/05/2024 7:47 AM EDT 10/05/2024 7:52 AM EDT Leda Zeng MD LAB POIN T OF CARE TEST DOCKED DEVICE UNSOLICITED RESULTS Final Result Performing Organization Address City/[facility]/ZIP Co de Phone Number [facility] [address] [place] [address] * (ABNORMAL) POCT glucose meter (10/04/2024 7:49 [...] for testing. Comment 10/04/2024 7:54 PM EDT [facility] Marketing Professor ID Grazyna Bhakta 025 7:54 PM EDT [facility] Device ID [id number] 10/04/2024 7:54 PM EDT [facility] Specimen Type POC Capillary 10/04/2024 7:54 PM EDT [facility] Blood Capillary blood specimen / Unknown 10/04/2024 7:49 PM EDT 10/04/2024 7:54 PM EDT Leda Zeng MD LAB POIN T OF CARE TEST DOCKED DEVICE UNSOLICITED RESULTS Final Result Performing Organization Address City/[facility]/ZIP Co de Phone Number [facility] [address] [place] [address] * (ABNORMAL) POCT glucose meter (10/04/2024 4:56 [...] 10/04/2024 4:58 PM EDT [facility] Marketing Professor ID Precious Thomason 4:58 PM EDT [facility] Device ID [id number] 10/04/2024 4:58 PM EDT [facility] Specimen Type POC Capillary 10/04/2024 4:58 PM EDT [facility] Blood Capillary blood specimen / Unknown 10/04/2024 4:56 PM EDT 10/04/2024 4:58 PM EDT Leda Zeng MD LAB POIN T OF CARE TEST DOCKED DEVICE UNSOLICITED RESULTS Final Result Performing Organization Address City/State/[facility] Co de Phone Number [facility] [address] [place] [address] * (ABNORMAL) POCT glucose meter (10/04/2024 1:06 PM EDT) [facility] POCT Glucose 118(H) 74 - 99 mg/dL [...] 10/04/2024 1:07 PM EDT [facility] Marketing Professor ID Precious Thomason 1:07 PM EDT [facility] Device ID [id number] 10/04/2024 1:07 PM EDT [facility] Specimen Type POC Capillary 10/04/2024 1:07 PM EDT [facility] Blood Capillary blood specimen / Unknown 10/04/2024 1:06 PM EDT 10/04/2024 1:07 PM EDT Leda Zeng MD LAB POIN T OF CARE TEST DOCKED DEVICE UNSOLICITED RESULTS Final Result Performing Organization Address [facility] de Phone Number [facility] [address] [place] [address] * (ABNORMAL) POCT glucose meter (10/04/2024 12:33 [...] Comment 10/04/2024 12:35 PM EDT [facility] Marketing Professor ID Nora Barillas 10/05/19 12:35 PM EDT [facility] Device ID [id number] 10/04/2024 12:35 PM EDT [facility] Specimen Type POC Venous 10/04/2024 12:35 PM EDT [facility] Blood Venous blood specimen / Unknown 10/04/2024 12:33 PM EDT 10/04/2024 12:35 PM EDT Leda Zeng MD LAB POIN T OF CARE TEST DOCKED DEVICE UNSOLICITED RESULTS Final Result Performing Organization Address [facility] de Phone Number [facility] [address] [place] [address] * POCT glucose meter (10/04/2024 7:36 AM [...] Comment 10/04/2024 7:37 AM EDT [facility] Marketing Professor ID Precious Thomason 7:37 AM EDT [facility] Device ID [id number] 10/04/2024 7:37 AM EDT [facility] Specimen Type POC Capillary 10/04/2024 7:37 AM EDT [facility] Blood Capillary blood specimen / Unknown 10/04/2024 7:36 AM EDT 10/04/2024 7:37 AM EDT us Leda Zeng MD LAB POIN T OF CARE TEST DOCKED DEVICE UNSOLICITED RESULTS Final Result Performing Organization Address [facility] Co de Phone Number [facility] [address] [place] [address] * POCT glucose meter (10/04/2024 7:31 AM EDT) [facility] Signature POCT Glucose 98 74 - [...] Comment 10/04/2024 7:33 AM EDT [facility] Marketing Professor ID Precious Thomason 7:33 AM EDT [facility] Device ID [id number] 10/04/2024 7:33 AM EDT [facility] Specimen Type POC Capillary 10/04/2024 7:33 AM EDT [facility] Blood Capillary blood specimen / Unknown 10/04/2024 7:31 AM EDT 10/04/2024 7:33 AM EDT us Leda Zeng MD LAB POIN T OF CARE TEST DOCKED DEVICE UNSOLICITED RESULTS Final Result Performing Organization Address City/[facility] Co de Phone Number [facility] [address] [place] [address] * (ABNORMAL) POCT glucose meter (10/04/2024 6:42 [...] Comment 10/04/2024 6:46 AM EDT [facility] Marketing Professor ID Princess Elsa 025 6:46 AM EDT [facility] Device ID [id number] 10/04/2024 6:46 AM EDT [facility] Specimen Type POC Capillary 10/04/2024 6:46 AM EDT [facility] Blood Capillary blood specimen / Unknown 10/04/2024 6:42 AM EDT 10/04/2024 6:46 AM EDT us Leda Zeng MD LAB POIN T OF CARE TEST DOCKED DEVICE UNSOLICITED RESULTS Final Result Performing Organization Address [facility]/ZIP Co de Phone Number [facility] [address] [place] [address] * (ABNORMAL) Magnesium, Plasma (10/04/2024 4:20 AM EDT) Pathologist [facility] Magnesium, Plasma 1.7(L) 1.9 - 2.4 mg/dL 10/04/2024 5:08 AM EDT [facility] Blood Venous blood specimen / Unknown Venipuncture / Unknown 10/04/2024 4:20 AM EDT 10/04/2024 4:25 AM EDT us Leda Zeng MD LAB BLOOD ORDERA BLES Final Result Performing Organization Address City/[facility]/ZIP Co de Phone Number [facility] [address] [place] [address] * (ABNORMAL) Renal Function Panel, Plasma (10/04/2024 4:20 AM EDT) [facility] Glucose, Plasma 84 74 - 99 mg/dL 10/04/2024 5:08 AM EDT [facility] BUN, Plasma 31(H) 8 - 23 mg/dL 10/04/2024 5:08 AM EDT [facility] Creatinine, Plasma 6.91(H) 0.70 - 1.20 mg/dL 10/04/2024 5:08 AM EDT [facility] BUN/Creatinine Ratio 4 10/04/2024 5:08 AM EDT [facility] Sodium, Plasma 128(L) 136 - 145 mmol/L 10/04/2024 5:08 AM EDT [facility] Potassium, Plasma 3.8 3.6 - 4.9 mmol/L 10/04/2024 5:08 AM EDT [facility] Chloride, Plasma 94(L) 97 - 107 mmol/L 10/04/2024 5:08 AM EDT [facility] CO2, Plasma 24 22 - 29 mmol/L 10/04/2024 5:08 AM EDT [facility] Anion Gap 10 6 - 16 mmol/L 10/04/2024 5:08 AM EDT [facility] Total Calcium, Plasma 7.3(L) 8.9 - 10.2 mg/dL 10/04/2024 5:08 AM EDT [facility] Phosphorus, Plasma 3.5 2.5 - 4.5 mg/dL 10/04/2024 5:08 AM EDT [facility] Albumin, Plasma 3.2(L) 3.5 - 5.2 g/dL 10/04/2024 5:08 AM EDT [facility] eGFRcr 8.2 mL/min/1.7 3m*2 10/04/2024 5:08 AM EDT [facility] Comment:Reported eGFRcr in m L/min/1.73m2 is based the CKD-EPI 2020 equation that does not use a race coefficient. Blood Venous blood specimen / Unknown Venipuncture / Unknown 10/04/2024 4:20 AM EDT 10/04/2024 4:25 AM EDT us Leda Zeng MD LAB BLOOD ORDERA BLES Final Result [facility] [address] [place] [address] * (ABNORMAL) POCT glucose meter (10/03/2024 7:54 PM EDT) [facility] POCT Glucose 135(H) 74 - 99 mg/dL [...] 10/03/2024 8:00 PM EDT [facility] Marketing Professor ID Princess Elsa 025 8:00 PM EDT [facility] Device ID [id number] 10/03/2024 8:00 PM EDT [facility] Specimen Type POC Capillary 10/03/2024 8:00 PM EDT [facility] Blood Capillary blood specimen / Unknown 10/03/2024 7:54 PM EDT 10/03/2024 8:00 PM EDT Leda Zeng MD LAB POIN T OF CARE TEST DOCKED DEVICE UNSOLICITED RESULTS Final Result Performing Organization Address [facility] de Phone Number [facility] [address] [place] [address] * (ABNORMAL) POCT glucose meter (10/03/2024 4:07 PM EDT) [facility] POCT Glucose 116(H) 74 - 99 mg/dL [...] 10/03/2024 4:09 PM EDT [facility] Marketing Professor ID Precious Thomason 4:09 PM EDT [facility] Device ID [id number] 10/03/2024 4:09 PM EDT [facility] Specimen Type POC Capillary 10/03/2024 4:09 PM EDT [facility] Blood Capillary blood specimen / Unknown 10/03/2024 4:07 PM EDT 10/03/2024 4:09 PM EDT Leda Zeng MD LAB POIN T OF CARE TEST DOCKED DEVICE UNSOLICITED RESULTS Final Result Performing Organization Address City/[facility] Co de Phone Number [facility] [address] [place] [address] * (ABNORMAL) POCT glucose meter (10/03/2024 12:29 PM EDT) [facility] POCT Glucose 124(H) 74 - 99 mg/dL [...] 10/03/2024 12:30 PM EDT [facility] Marketing Professor ID Precious Thomason 12:30 PM EDT [facility] Device ID [id number] 10/03/2024 12:30 PM EDT [facility] Specimen Type POC Capillary 10/03/2024 12:30 PM EDT [facility] Blood Capillary blood specimen / Unknown 10/03/2024 12:29 PM EDT 10/03/2024 12:30 PM EDT Leda Zeng MD LAB POIN T OF CARE TEST DOCKED DEVICE UNSOLICITED RESULTS Final Result Performing Organization Address City/[facility] Co de Phone Number [facility] [address] [place] [address] * (ABNORMAL) POCT glucose meter (10/03/2024 8:12 [...] Comment 10/03/2024 8:14 AM EDT [facility] Marketing Professor ID Precious Thomason 8:14 AM EDT [facility] Device ID [id number] 10/03/2024 8:14 AM EDT [facility] Specimen Type POC Capillary 10/03/2024 8:14 AM EDT [facility] Blood Capillary blood specimen / Unknown 10/03/2024 8:12 AM EDT 10/03/2024 8:14 AM EDT Leda Zeng MD LAB POIN T OF CARE TEST DOCKED DEVICE UNSOLICITED RESULTS Final Result Performing Organization Address City/[facility] Co de Phone Number [facility] [address] [place] [address] * (ABNORMAL) Magnesium, Plasma (10/03/2024 3:21 AM EDT) [facility] Magnesium, Plasma 1.8(L) 1.9 - 2.4 mg/dL 10/03/2024 4:29 AM EDT [facility] Blood Venous blood specimen / Unknown Venipuncture / Unknown 10/03/2024 3:21 AM EDT 10/03/2024 4:00 AM EDT Leda Zeng MD LAB BLOOD ORDERA BLES Final Result Performing Organization Address City/[facility]/ZIP Co de Phone Number [facility] [address] [place] [address] * (ABNORMAL) Renal Function Panel, Plasma (10/03/2024 3:21 AM EDT) Glucose, Plasma 119(H) 74 - 99 mg/dL 10/03/2024 4:29 AM EDT [facility] BUN, Plasma 24(H) 8 - 23 mg/dL 10/03/2024 4:29 AM EDT [facility] Creatinine, Plasma 5.69(H) 0.70 - 1.20 mg/dL 10/03/2024 4:29 AM EDT [facility] BUN/Creatinine Ratio 4 10/03/2024 4:29 AM EDT [facility] Sodium, Plasma 131(L) 136 - 145 mmol/L 10/03/2024 4:29 AM EDT [facility] Potassium, Plasma 3.9 3.6 - 4.9 mmol/L 10/03/2024 4:29 AM EDT [facility] Chloride, Plasma 96(L) 97 - 107 mmol/L 10/03/2024 4:29 AM EDT [facility] CO2, Plasma 26 22 - 29 mmol/L 10/03/2024 4:29 AM EDT [facility] Anion Gap 9 6 - 16 mmol/L 10/03/2024 4:29 AM EDT [facility] Total Calcium, Plasma 7.2(L) 8.9 - 10.2 mg/dL 10/03/2024 4:29 AM EDT [facility] Phosphorus, Plasma 3.0 2.5 - 4.5 mg/dL 10/03/2024 4:29 AM EDT [facility] Albumin, Plasma 3.2(L) 3.5 - 5.2 g/dL 10/03/2024 4:29 AM EDT [facility] eGFRcr 10.3 mL/min/1.7 3m*2 10/03/2024 4:29 AM EDT [facility] Comment:Reported eGFRcr in m L/min/1.73m2 is based the CKD-EPI 2020 equation that does not use a race coefficient. Blood Venous blood specimen / Unknown Venipuncture / Unknown 10/03/2024 3:21 AM EDT 10/03/2024 4:00 AM EDT us Leda Zeng MD LAB BLOOD ORDERA BLES Final Result [facility] [address] [place] [address] * (ABNORMAL) POCT glucose meter (10/02/2024 9:06 PM EDT) [facility] POCT Glucose 143(H) 74 - 99 mg/dL [...] Comment 10/02/2024 9:08 PM EDT [facility] Marketing Professor ID Ashia Daniels 10/03/19 9:08 PM EDT [facility] LAB Device ID [id number] 10/02/2024 9:08 PM EDT [facility] Specimen Type POC Capillary 10/02/2024 9:08 PM EDT [facility] Blood Capillary blood specimen / Unknown 10/02/2024 9:06 PM EDT 10/02/2024 9:08 PM EDT Leda Zeng MD LAB POIN T OF CARE TEST DOCKED DEVICE UNSOLICITED RESULTS Final Result Performing Organization Address City/State/[facility] Co de Phone Number [facility] [address] [place] [address] * (ABNORMAL) POCT glucose meter (10/02/2024 4:43 PM EDT) [facility] POCT Glucose 172(H) 74 - 99 mg/dL [...] 10/02/2024 4:45 PM EDT [facility] Marketing Professor ID Viridiana Pichardo 4:45 PM EDT [facility] Device ID [id number] 10/02/2024 4:45 PM EDT [facility] Specimen Type POC Capillary 10/02/2024 4:45 PM EDT [facility] Blood Capillary blood specimen / Unknown 10/02/2024 4:43 PM EDT 10/02/2024 4:45 PM EDT Leda Zeng MD LAB POIN T OF CARE TEST DOCKED DEVICE UNSOLICITED RESULTS Final Result Performing Organization Address City/[facility]/ZIP Co de Phone Number [facility] [address] [place] [address] * (ABNORMAL) POCT glucose meter (10/02/2024 11:55 AM EDT) POCT Glucose 108(H) 74 - 99 mg/dL 10/02/2024 11:56 AM EDT [facility] Comment:Accuracy of a glucos e result [...] for testing. Comment 10/02/2024 11:56 AM EDT [facility] Marketing Professor ID Viridiana Pichardo 11:56 AM EDT [facility] Device ID [id number] 10/02/2024 11:56 AM EDT [facility] Specimen Type POC Capillary 10/02/2024 11:56 AM EDT [facility] Blood Capillary blood specimen / Unknown 10/02/2024 11:55 AM EDT 10/02/2024 11:56 AM EDT Leda Zeng MD LAB POIN T OF CARE TEST DOCKED DEVICE UNSOLICITED RESULTS Final Result Performing Organization Address City/[facility]/ZIP Co de Phone Number [facility] [address] [place] [address] * PTH, intact (10/02/2024 9:58 AM EDT) Pathologist [facility] PTH Intact Total 9 9 - 77 pg/mL 10/02/2024 2:50 PM EDT [facility] Blood Venous blood specimen / Unknown Venipuncture / Unknown 10/02/2024 9:58 AM EDT 10/02/2024 11:19 AM EDT Narrative [facility] - 10/02/2024 2:50 PM EDT Assay performed by immunoassay at the [facility]. Performed on [employer] Specialist chemiluminescent immunoassay, tractable to the World Health Organization's first international standard for PTH from the [facility], Code 79/500. Results obtained from different test methods or kits cannot be used interchangeably. Leda Zeng MD LAB BLOOD ORDERA BLES Final Result Performing Organization Address [facility] Co de Phone Number [facility] [address] [place] [address] * Hepatitis C Virus (HCV) Quantitative PCR (10/02/2024 7:51 AM EDT) Pathologist [facility] Hepatitis C Virus (HCV) Quantitative Interpretation Not Detected Not Detected. 10/04/2024 2:37 PM EDT [facility] Blood Venous blood specimen / Unknown Venipuncture / Unknown 10/02/2024 7:51 AM EDT 10/02/2024 8:36 AM EDT Narrative [facility] - 10/04/2024 2:37 PM EDT [...] FDA approved for clinical use. Daphne Landry DIRECTOR CLINICAL APPLICATIONS, DNP LAB BLOOD ORDERABLES Selene l Result Performing Organization Address City/[facility]/ZIP Co de Phone Number [facility] [address] [place] [address] * (ABNORMAL) Hepatitis panel, acute (10/02/2024 7:51 AM EDT) Pathologist [facility] Hepatitis B Surf Antigen Negative Negative 10/02/2024 3:10 PM EDT [facility] Hepatitis C Antibody Positive(A) Negative 10/02/2024 3:10 PM EDT [facility] Comment:This specimen is jamey ng sent for confirmation by RT-PCR. Hepatitis A Antibody IgM Negative Negative 10/02/2024 3:10 PM EDT [facility] Hepatitis B Core Antibody IgM Negative Negative 10/02/2024 3:10 PM EDT [facility] Blood Venous blood specimen / Unknown Venipuncture / Unknown 10/02/2024 7:51 AM EDT 10/02/2024 8:36 AM EDT us Daphne Talbott DIRECTOR CLINICAL APPLICATIONS, DNP LAB BLOOD ORDERABLES Selene l Result Performing Organization Address [facility] Co de Phone Number [facility] [address] [place] [address] * (ABNORMAL) Hepatitis B Surface Antibody, Quantitative (10/02/2024 7:51 AM EDT) [facility] Hepatitis B Surface Antibody, Quantitative 62.12(H) NonReacti ve: <8, Grayzone: 8 - <12, Reactive: >= 12 mIU/mL 10/02/2024 12:27 PM EDT [facility] Comment: Reactive. Individual is considered immune to HBV infection. Blood Venous blood specimen / Unknown Venipuncture / Unknown 10/02/2024 7:51 AM EDT 10/02/2024 8:35 AM EDT us Daphne L Rust DIRECTOR CLINICAL APPLICATIONS, DNP LAB BLOOD ORDERABLES Selene l Result Performing Organization Address [facility] Co de Phone Number [facility] [address] [place] [address] * Vitamin D 25 Hydroxy (10/02/2024 5:36 AM EDT) [facility] Vitamin D 25 Hydroxy 33.5 20.0 - 80.0 ng/mL 10/02/2024 9:56 AM EDT [facility] Blood Venous blood specimen / Unknown Venipuncture / Unknown 10/02/2024 5:36 AM EDT 10/02/2024 5:42 AM EDT Narrative [facility] - 10/02/2024 9:56 AM EDT Testing performed on [employer] Specialist, standardized against NIST SRM [id number]. When testing [...] ORDERABLES Final Re sult Performing Organization Address [facility] Co de Phone Number [facility] [address] [place] [address] * Magnesium, Plasma (10/02/2024 5:36 AM EDT) Magnesium, Plasma 2.0 1.9 - 2.4 mg/dL 10/02/2024 6:06 AM EDT [facility] Blood Venous blood specimen / Unknown Venipuncture / Unknown 10/02/2024 5:36 AM EDT 10/02/2024 5:42 AM EDT Lala Valdes DIRECTOR CLINICAL APPLICATIONS LAB BLOOD ORDERABLES Final Re sult [facility] [address] [place] [address] * (ABNORMAL) Ferritin, Serum (10/02/2024 5:36 AM EDT) Ferritin, Serum 1,701(H) 20 - 400 ng/mL 10/02/2024 8:36 AM EDT [facility] Blood Venous blood specimen / Unknown Venipuncture / Unknown 10/02/2024 5:36 AM EDT 10/02/2024 5:42 AM EDT us Lala Valdes DIRECTOR CLINICAL APPLICATIONS LAB BLOOD ORDERABLES Final Re sult [facility] [address] [place] [address] * (ABNORMAL) Renal Function Panel, Plasma (10/02/2024 5:36 AM EDT) Glucose, Plasma 95 74 - 99 mg/dL 10/02/2024 6:06 AM EDT [facility] BUN, Plasma 37(H) 8 - 23 mg/dL 10/02/2024 6:06 AM EDT [facility] Creatinine, Plasma 8.81(H) 0.70 - 1.20 mg/dL 10/02/2024 6:06 AM EDT [facility] BUN/Creatinine Ratio 4 10/02/2024 6:06 AM EDT [facility] Sodium, Plasma 132(L) 136 - 145 mmol/L 10/02/2024 6:06 AM EDT [facility] Potassium, Plasma 3.8 3.6 - 4.9 mmol/L 10/02/2024 6:06 AM EDT [facility] Chloride, Plasma 94(L) 97 - 107 mmol/L 10/02/2024 6:06 AM EDT [facility] CO2, Plasma 26 22 - 29 mmol/L 10/02/2024 6:06 AM EDT [facility] Anion Gap 12 6 - 16 mmol/L 10/02/2024 6:06 AM EDT [facility] Total Calcium, Plasma 7.4(L) 8.9 - 10.2 mg/dL 10/02/2024 6:06 AM EDT [facility] Phosphorus, Plasma 3.9 2.5 - 4.5 mg/dL 10/02/2024 6:06 AM EDT [facility] Albumin, Plasma 3.3(L) 3.5 - 5.2 g/dL 10/02/2024 6:06 AM EDT [facility] eGFRcr 6.1 mL/min/1.7 3m*2 10/02/2024 6:06 AM EDT [facility] Comment:Reported eGFRcr in m L/min/1.73m2 is based the CKD-EPI 2020 equation that does not use a race coefficient. Blood Venous blood specimen / Unknown Venipuncture / Unknown 10/02/2024 5:36 AM EDT 10/02/2024 5:42 AM EDT Lala Valdes DIRECTOR CLINICAL APPLICATIONS LAB BLOOD ORDERABLES Final Re sult [facility] [address] [place] [address] * (ABNORMAL) CBC and Differential (10/02/2024 5:36 AM EDT) Pathologist [facility] WBC Count 7.44 3.70 - 10.30 10*3/uL LAB HEMATOLOGY METHOD 10/02/2024 5:44 AM EDT [facility] RBC Count 3.30(L) 4.60 - 6.10 10*6/uL LAB HEMATOLOGY METHOD 10/02/2024 5:44 AM EDT [facility] HGB 10.4(L) 13.7 - 17.5 g/dL LAB HEMATOLOGY METHOD 10/02/2024 5:44 AM EDT [facility] HCT 29.8(L) 40.0 - 51.0 % LAB HEMATOLOGY METHOD 10/02/2024 5:44 AM EDT [facility] Platelet Count 119(L) 155 - 369 10*3/uL LAB HEMATOLOGY METHOD 10/02/2024 5:44 AM EDT [facility] MCV 90 79 - 98 fL LAB HEMATOLOGY METHOD 10/02/2024 5:44 AM EDT [facility] MCH 31.5 26.0 - 32.0 pg LAB HEMATOLOGY METHOD 10/02/2024 5:44 AM EDT [facility] MCHC 34.9 30.7 - 35.5 g/dL LAB HEMATOLOGY METHOD 10/02/2024 5:44 AM EDT [facility] RDW 12.5 11.5 - 14.5 % LAB HEMATOLOGY METHOD 10/02/2024 5:44 AM EDT [facility] MPV 9.5 8.8 - 12.5 fL LAB HEMATOLOGY METHOD 10/02/2024 5:44 AM EDT [facility] nRBC 0.0 <=0.0 per 100 WBCs LAB HEMATOLOGY METHOD 10/02/2024 5:44 AM EDT [facility] Differential Type Automated LAB HEMATOLOGY METHOD [...] LAB HEMATOLOGY METHOD 10/02/2024 5:44 AM EDT [facility] Immature Granulocytes % 1 % LAB HEMATOLOGY METHOD 10/02/2024 5:44 AM EDT [facility] Neutrophils Absolute 4.44 1.60 - 6.10 10*3/uL LAB HEMATOLOGY METHOD 10/02/2024 5:44 AM EDT [facility] Lymphocytes Absolute 2.10 1.20 - 3.90 10*3/uL LAB HEMATOLOGY METHOD 10/02/2024 5:44 AM EDT [facility] Monocytes Absolute 0.53 0.30 - 0.90 10*3/uL LAB HEMATOLOGY METHOD 10/02/2024 5:44 AM EDT [facility] Eosinophils Absolute 0.26 0.00 - 0.50 10*3/uL LAB HEMATOLOGY METHOD 10/02/2024 5:44 AM EDT [facility] Basophils Absolute 0.06 0.00 - 0.10 10*3/uL LAB HEMATOLOGY METHOD 10/02/2024 5:44 AM EDT [facility] Immature Granulocytes Absolute 0.05 0.00 - 0.06 10*3/uL LAB HEMATOLOGY METHOD 10/02/2024 5:44 AM EDT [facility] Blood Venous blood specimen / Unknown Venipuncture / Unknown 10/02/2024 5:36 AM EDT 10/02/2024 5:42 AM EDT Narrative [facility] - 10/02/2024 5:44 AM EDT Therapeutic decision making should be based on absolute values, rather than percentages. us Lala Valdes APRN LAB BLOOD ORDERABLES Final Re sult [facility] [address] [place] [address] * Multi Drug Resistance Test (10/01/2024 9:04 PM EDT) [facility] Culture No growth at day 1 10/03/2024 5:35 AM EDT [facility] Swab (Nares and Sydni Rectal) Non-blood Collection / Unknown 10/01/2024 9:04 PM EDT 10/01/2024 9:46 PM EDT Narrative [facility] - 10/03/2024 5:35 AM EDT This test was developed and its performance characteristics determined by the [facility]. Although the media is FDA-approved, it is not FDA-approved for all specimen types submitted. The FDA has determined that such clearance or approval is not necessary. This test is used for surveillance purposes. It should not be regarded as investigational or for research. The [facility] is certified under the Clinical Laboratory Improvement Amendments of 1988 (CLIA-88) as qualified to perform high complexity clinical laboratory testing. Lala Valdes APRN LAB MICROBIOLOGY - GENERAL OR DERABLES Final Result [facility] [address] [place] [address] * (ABNORMAL) POCT glucose meter (10/01/2024 8:38 PM EDT) [facility] POCT Glucose 151(H) 74 - 99 mg/dL [...] 10/01/2024 8:39 PM EDT [facility] Marketing Professor ID JeremiahJulio [email or web address] 10/02/19 8:39 PM EDT [facility] Device ID [id number] 10/01/2024 8:39 PM EDT [facility] Specimen Type POC Capillary 10/01/2024 8:39 PM EDT [facility] Blood Capillary blood specimen / Unknown 10/01/2024 8:38 PM EDT 10/01/2024 8:39 PM EDT us Leda Zeng MD LAB POIN T OF CARE TEST DOCKED DEVICE UNSOLICITED RESULTS Final Result Performing Organization Address [facility] de Phone Number [facility] [address] [place] [address] * (ABNORMAL) POCT glucose meter (10/01/2024 4:02 [...] Comment 10/01/2024 4:04 PM EDT [facility] Marketing Professor ID Precious Thomason 4:04 PM EDT [facility] Device ID [id number] 10/01/2024 4:04 PM EDT [facility] Specimen Type POC Capillary 10/01/2024 4:04 PM EDT [facility] Blood Capillary blood specimen / Unknown 10/01/2024 4:02 PM EDT 10/01/2024 4:04 PM EDT Tana Wooten MD LAB POINT OF CA RE TEST DOCKED DEVICE UNSOLICITED RESULTS Final Result Performing Organization Address [facility] de Phone Number [facility] [address] [place] [address] * (ABNORMAL) POCT glucose meter (10/01/2024 12:21 PM EDT) Pathologist [facility] POCT Glucose 142(H) 74 - 99 mg/dL [...] 10/01/2024 12:22 PM EDT [facility] Marketing Professor ID Precious Thomason 12:22 PM EDT [facility] Device ID [id number] 10/01/2024 12:22 PM EDT [facility] Specimen Type POC Capillary 10/01/2024 12:22 PM EDT [facility] Blood Capillary blood specimen / Unknown 10/01/2024 12:21 PM EDT 10/01/2024 12:22 PM EDT us Tana Wooten MD LAB POINT OF CA RE TEST DOCKED DEVICE UNSOLICITED RESULTS Final Result [facility] [address] [place] [address] * (ABNORMAL) POCT glucose meter (10/01/2024 8:29 AM EDT) [facility] POCT Glucose 100(H) 74 - 99 mg/dL [...] Comment 10/01/2024 8:30 AM EDT [facility] Marketing Professor ID Precious Thomason 8:30 AM EDT [facility] Device ID [id number] 10/01/2024 8:30 AM EDT [facility] Specimen Type POC Capillary 10/01/2024 8:30 AM EDT [facility] Blood Capillary blood specimen / Unknown 10/01/2024 8:29 AM EDT 10/01/2024 8:30 AM EDT us Tana Wooten MD LAB POINT OF CA RE TEST DOCKED DEVICE UNSOLICITED RESULTS Final Result Performing Organization Address City/[facility]/ZIP Co de Phone Number [facility] [address] [place] [address] * (ABNORMAL) POCT glucose meter (09/30/2024 8:49 PM EDT) [facility] POCT Glucose 138(H) 74 - 99 [...] Comment 09/30/2024 8:50 PM EDT [facility] Marketing Professor ID Ashia Daniels 10/01/19 8:50 PM EDT [facility] Device ID [id number] 09/30/2024 8:50 PM EDT [facility] Specimen Type POC Capillary 09/30/2024 8:50 PM EDT [facility] Blood Capillary blood specimen / Unknown 09/30/2024 8:49 PM EDT 09/30/2024 8:50 PM EDT Tana Wooten MD LAB POINT OF CA RE TEST DOCKED DEVICE UNSOLICITED RESULTS Final Result Performing Organization Address City/[facility] Co de Phone Number [facility] [address] [place] [address] * (ABNORMAL) Hemoglobin A1c (09/30/2024 4:50 PM EDT) [facility] Hemoglobin A1c 6.3(H) <5.7 % 10/01/2024 12:06 PM EDT [facility] Blood Venous blood specimen / Unknown Venipuncture / Unknown 09/30/2024 4:50 PM EDT 09/30/2024 4:54 PM EDT Narrative [facility] - 10/01/2024 12:06 PM EDT [facility] Interpretive Data: Diagnosis of Diabetes: Diabetic > or = 6.5% Pre-diabetic 5.7 to 6.4% Non-diabetic < or = 5.6% Glycemic Targets for Type I and Type II Diabetics: Non- Adults <7.0% Adults <6.0% Children and Adolescents <7.5% Source: [place] [employer]. Standards of medical care in diabetes,2017. Diabetes Care.2017:40 (suppl 1):S1-S135. Lala Valdes APRN LAB BLOOD ORDERABLES Final Re sult Performing Organization Address [facility] de Phone Number [facility] [address] [place] [address] * (ABNORMAL) Iron & Total Iron Binding Capacity, Plasma (Includes Transferrin) (09/30/2024 4:50 PM EDT) Iron, Plasma 66 50 - 170 ug/dL 09/30/2024 11:58 PM EDT [facility] Transferrin, Plasma 117(L) 200 - 360 mg/dL 09/30/2024 11:58 PM EDT [facility] Total Iron Binding Capacity, Plasma 146(L) 240 - 450 ug/mL 09/30/2024 11:58 PM EDT [facility] Transferrin Saturation 45 14 - 50 % 09/30/2024 11:58 PM EDT [facility] Blood Venous blood specimen / Unknown Venipuncture / Unknown 09/30/2024 4:50 PM EDT 09/30/2024 4:53 PM EDT Lala Valdes APRN LAB BLOOD ORDERABLES Final Re sult Performing Organization Address [facility] de Phone Number [facility] [address] [place] [address] * TSH Reflex FT4 (09/30/2024 4:50 PM EDT) Thyroid Stimulating Hormone, Plasma 0.91 0.40 - 4.20 uIU/mL 09/30/2024 9:27 PM EDT [facility] Blood Venous blood specimen / Unknown Venipuncture / Unknown 09/30/2024 4:50 PM EDT 09/30/2024 4:53 PM EDT Lala Valdes APRN LAB BLOOD ORDERABLES Final Re sult Performing Organization Address [facility] Co de Phone Number [facility] [address] [place] [address] * (ABNORMAL) C-Reactive protein (09/30/2024 4:50 PM [...] ORDERABLES Final Re sult Performing Organization Address [facility] Co de Phone Number [facility] [address] [place] [address] * Phosphorus (09/30/2024 4:50 PM EDT) Phosphorus, Plasma 3.3 2.5 - 4.5 mg/dL 09/30/2024 5:14 PM EDT [facility] Blood Venous blood specimen / Unknown Venipuncture / Unknown 09/30/2024 4:50 PM EDT 09/30/2024 4:53 PM EDT Lesvia Adrian MD LAB BLOOD ORDERABLES Final Re sult Performing Organization Address City/[facility] Co de Phone Number [facility] [address] [place] [address] * (ABNORMAL) Magnesium (09/30/2024 4:50 PM EDT) Magnesium, Plasma 1.7(L) 1.9 - 2.4 mg/dL 09/30/2024 5:14 PM EDT [facility] Blood Venous blood specimen / Unknown Venipuncture / Unknown 09/30/2024 4:50 PM EDT 09/30/2024 4:53 PM EDT us Lesvia Adrian MD LAB BLOOD ORDERABLES Final Re sult [facility] [address] [place] [address] * (ABNORMAL) CMP (09/30/2024 4:50 PM EDT) Glucose, Plasma 185(H) 74 - 99 mg/dL 09/30/2024 5:14 PM EDT [facility] BUN, Plasma 29(H) 8 - 23 mg/dL 09/30/2024 5:14 PM EDT [facility] Creatinine, Plasma 7.58(H) 0.70 - 1.20 mg/dL 09/30/2024 5:14 PM EDT [facility] BUN/Creatinine Ratio 4 09/30/2024 5:14 PM EDT [facility] Sodium, Plasma 131(L) 136 - 145 mmol/L 09/30/2024 5:14 PM EDT [facility] Potassium, Plasma 3.0(L) 3.6 - 4.9 mmol/L 09/30/2024 5:14 PM EDT [facility] Chloride, Plasma 90(L) 97 - 107 mmol/L 09/30/2024 5:14 PM EDT [facility] CO2, Plasma 28 22 - 29 mmol/L 09/30/2024 5:14 PM EDT [facility] Anion Gap 13 6 - 16 mmol/L 09/30/2024 5:14 PM EDT [facility] Total Calcium, Plasma 7.6(L) 8.9 - 10.2 mg/dL 09/30/2024 5:14 PM EDT [facility] Total Protein 7.2 6.3 - 7.9 g/dL 09/30/2024 5:14 PM EDT [facility] Albumin, Plasma 3.7 3.5 - 5.2 g/dL 09/30/2024 5:14 PM EDT [facility] AST, Plasma 13 10 - 50 U/L 09/30/2024 5:14 PM EDT [facility] ALT, Plasma 6(L) 10 - 50 U/L 09/30/2024 5:14 PM EDT [facility] Alkaline Phosphatase, Plasma 42 40 - 115 U/L 09/30/2024 5:14 PM EDT [facility] Total Bilirubin, Plasma 0.6 0.2 - 1.1 mg/dL 09/30/2024 5:14 PM EDT [facility] eGFRcr 7.3 mL/min/1.7 3m*2 09/30/2024 5:14 PM EDT [facility] Comment:Reported eGFRcr in m L/min/1.73m2 is based the CKD-EPI 2020 equation that does not use a race coefficient. Blood Venous blood specimen / Unknown Venipuncture / Unknown 09/30/2024 4:50 PM EDT 09/30/2024 4:53 PM EDT us Lesvia Adrian MD LAB BLOOD ORDERABLES Final Re sult [facility] [address] [place] [address] * (ABNORMAL) CBC w/diff (09/30/2024 4:50 PM EDT) WBC Count 8.92 3.70 - 10.30 10*3/uL LAB HEMATOLOGY METHOD 09/30/2024 4:56 PM EDT [facility] RBC Count 3.29(L) 4.60 - 6.10 10*6/uL LAB HEMATOLOGY METHOD 09/30/2024 4:56 PM EDT [facility] HGB 10.4(L) 13.7 - 17.5 g/dL LAB HEMATOLOGY METHOD 09/30/2024 4:56 PM EDT [facility] HCT 29.8(L) 40.0 - 51.0 % LAB HEMATOLOGY METHOD 09/30/2024 4:56 PM EDT [facility] Platelet Count 121(L) 155 - 369 10*3/uL LAB HEMATOLOGY METHOD 09/30/2024 4:56 PM EDT [facility] MCV 91 79 - 98 fL LAB HEMATOLOGY METHOD 09/30/2024 4:56 PM EDT [facility] MCH 31.6 26.0 - 32.0 pg LAB HEMATOLOGY METHOD 09/30/2024 4:56 PM EDT [facility] MCHC 34.9 30.7 - 35.5 g/dL LAB HEMATOLOGY METHOD 09/30/2024 4:56 PM EDT [facility] RDW 12.5 11.5 - 14.5 % LAB HEMATOLOGY METHOD 09/30/2024 4:56 PM EDT [facility] MPV 9.6 8.8 - 12.5 fL LAB HEMATOLOGY METHOD 09/30/2024 4:56 PM EDT [facility] nRBC 0.0 <=0.0 per 100 WBCs LAB HEMATOLOGY METHOD 09/30/2024 4:56 PM EDT [facility] Differential Type Automated LAB HEMATOLOGY METHOD 09/30/2024 4:56 PM EDT [facility] Neutrophils % 61 % LAB HEMATOLOGY METHOD 09/30/2024 4:56 PM EDT [facility] Lymphocytes % 27 % LAB HEMATOLOGY METHOD 09/30/2024 4:56 PM EDT [facility] Monocytes % 8 % LAB HEMATOLOGY METHOD 09/30/2024 4:56 PM EDT [facility] Eosinophils % 3 % LAB HEMATOLOGY METHOD 09/30/2024 4:56 PM EDT [facility] Basophils % 1 % LAB HEMATOLOGY METHOD 09/30/2024 4:56 PM EDT [facility] Immature Granulocytes % 0 % LAB HEMATOLOGY METHOD 09/30/2024 4:56 PM EDT [facility] Neutrophils Absolute 5.48 1.60 - 6.10 10*3/uL LAB HEMATOLOGY METHOD 09/30/2024 4:56 PM EDT [facility] Lymphocytes Absolute 2.36 1.20 - 3.90 10*3/uL LAB HEMATOLOGY METHOD 09/30/2024 4:56 PM EDT [facility] Monocytes Absolute 0.69 0.30 - 0.90 10*3/uL LAB HEMATOLOGY METHOD 09/30/2024 4:56 PM EDT [facility] Eosinophils Absolute 0.28 0.00 - 0.50 10*3/uL LAB HEMATOLOGY METHOD 09/30/2024 4:56 PM EDT [facility] Basophils Absolute 0.07 0.00 - 0.10 10*3/uL LAB HEMATOLOGY METHOD 09/30/2024 4:56 PM EDT [facility] Immature Granulocytes Absolute 0.04 0.00 - 0.06 10*3/uL LAB HEMATOLOGY METHOD 09/30/2024 4:56 PM EDT [facility] Blood Venous blood specimen / Unknown Venipuncture / Unknown 09/30/2024 4:50 PM EDT 09/30/2024 4:54 PM EDT Narrative [facility] - 09/30/2024 4:56 PM EDT Therapeutic decision making should be based on absolute values, rather than percentages. Lesvia Adrian MD LAB BLOOD ORDERABLES Final Re sult [facility] [address] [place] [address] * EKG now - STAT (adult) (09/30/2024 4:09 PM EDT) EKG DIAGNOSIS CLASS Abnormal MUSE ECG Ventricular Rate 70 BPM MUSE ECG Atrial Rate 70 BPM MUSE ECG FL Interval 154 ms MUSE ECG QRSD Interval 106 ms MUSE ECG QT Interval 430 ms MUSE ECG QTC Interval 464 ms MUSE ECG P Blount 69 degrees MUSE ECG R Blount -23 degrees MUSE ECG T Wave Blount 5 degrees MUSE ECG Diagnosis Normal sinus [...] status- Primary ESRD (end stage renal disease) ([facility]/HCC) End stage renal disease Noncompliance by refusing service ESRD (end stage renal disease) on dialysis ([facility]/HCC) End stage renal disease Declining functional status [...] Provider: Nelli Mayberry RN)1323 (Given - Provider: Mariele Zamora, TRISTIN)2014 (Given - Provider: Sara Garnett, [...] documented as of this encounter Care Teams Transcription Relationship Specialty [place] [address] [place] [id number] PCP - General Family Medicine 06/08/22 Minnie Penn, RN [facility] Registered Nurse 10/01/24 10/01/24 documented as of this encounter
--- OUTSIDE RECORDS SUMMARY | 2024-10-29 10:18 | XMS_ITS | Encounter Summary ---
Author Organization Healthcare Address [address] [place] [address] Care Team Providers Care Sfdc Consultant Name Role Phone Pcp, No Primary Care Provider Leonard Knutson MD Primary Care Provider [phone] Yesenia Morrell LPN Unavailable Unavailable Goldie Alan LPN Unavailable Goldie Servin LPN Unavailable UnavailRanjana Castellanos LPN Unavailable UnavailMinnie Martinez RN Unavailable Unavailab le Encounter Details Date Type Department Care Team (Latest Contact Info) Description 06/01/2022 Lab Requisition [facility] [address], [address] [place] [address] Ariel Lucas MD [address] [place] [address] Osteomyelitis of vertebra, thoracic region (CMS/HCC) Social History Tobacco Use Types Packs/Day Years Used Date Smoking Tobacco: Never Smokeless Tobacco: Never Alcohol Use Standard Drinks/Week Comments Not Currently 0 (1 standard drink = 0.6 oz pur e alcohol) PHQ-2 Answer Date Recorded Patient Health Questionnaire-2 Score 0 04/12/2022 Sex and Gender Information Value Date Recorded Sex Assigned at Male 03/02/2022 1:43 PM EST Legal Sex Male 8:21 PM EDT Gender Identity Male 03/02/2022 1:43 PM EST Sexual Orientation Straight 03/02/2022 1: 43 PM EST COVID-19 Exposure Response Date Recorded In the last 10 days, have fabian oreilly been in contact with someone who was confirmed or suspected to have Coronavirus/COVID-19? No / Unsure 06/02/2022 12:18 PM EDT documented as of this encounter Functional Status * Are you deaf or do you have serious difficulty hearing? Answer Date of Assessment Author No 09/29/2021 3:17 PM EDT Julio, R uth A * Are you blind or do you have serious difficulty seeing, even when wearing glasses? Answer Date of Assessment Author Yes 09/29/2021 3:17 PM EDT Elizabeth, R uth A * Do you have serious difficulty walking or climbing stairs? Answer Date of Assessment Author Yes 09/29/2021 3:17 PM EDT Elizabeth, R uth A * Do you have serious difficulty dressing or bathing? Answer Date of Assessment Author Yes 09/29/2021 3:17 PM EDT Elizabeth, R uth A * Because of a physical, mental, or emotional condition, do you have serious difficulty doing errandsalone such as visiting the doctor? Answer Date of Assessment Author Yes 09/29/2021 3:17 PM EDT Julio, R uth A documented as of this encounter Mental Status * Because of a physical, mental, or emotional condition, do you have serious difficulty concentrating, remembering, or making decisions? (5 years old or older) Answer Entry Date Author Yes 09/29/2021 3:17 PM EDT Julio, R uth A documented in this encounter Plan of Treatment Not on file documented as of this encounter Procedures Procedure Name Priority Date/Time Associated Diagnosis Comments CBC WITH AUTO DIFFERENTIAL Routine 06/01/2022 2:20 PM EDT Osteomyelitis of vertebra, thoracic region (CMS/HCC) C-REACTIVE PROTEIN, PLASMA Routine 06/01/2022 2:20 PM EDT Osteomyelitis of vertebra, thoracic region (CMS/HCC) COMPREHENSIVE METABOLIC PANEL, PLASMA Routine 06/01/2022 2:20 PM EDT Osteomyelitis of vertebra, thoracic region (CMS/HCC) documented in this encounter Results * (ABNORMAL) CBC and Differential (06/01/2022 2:20 PM EDT) WBC Count 8.27 3.70 - 10.30 10*3/uL LAB HEMATOLOGY METHOD 06/01/2022 3:27 PM EDT [facility] RBC Count 3.55(L) 4.60 - 6.10 10*6/uL LAB HEMATOLOGY METHOD 06/01/2022 3:27 PM EDT [facility] HGB 10.0(L) 13.7 - 17.5 g/dL LAB HEMATOLOGY METHOD 06/01/2022 3:27 PM EDT [facility] HCT 30.5(L) 40.0 - 51.0 % LAB HEMATOLOGY METHOD 06/01/2022 3:27 PM EDT [facility] Platelet Count 162 155 - 369 10*3/uL LAB HEMATOLOGY METHOD 06/01/2022 3:27 PM EDT [facility] MCV 86 79 - 98 fL LAB HEMATOLOGY METHOD 06/01/2022 3:27 PM EDT [facility] MCH 28.2 26.0 - 32.0 pg LAB HEMATOLOGY METHOD 06/01/2022 3:27 PM EDT [facility] MCHC 32.8 30.7 - 35.5 g/dL LAB HEMATOLOGY METHOD 06/01/2022 3:27 PM EDT [facility] RDW 14.1 11.5 - 14.5 % LAB HEMATOLOGY METHOD 06/01/2022 3:27 PM EDT [facility] MPV 11.7 8.8 - 12.5 fL LAB HEMATOLOGY METHOD 06/01/2022 3:27 PM EDT [facility] nRBC 0.0 <=0.0 per 100 WBCs LAB HEMATOLOGY METHOD 06/01/2022 3:27 PM EDT [facility] Differential Type Automated LAB HEMATOLOGY METHOD 06/01/2022 3:27 PM EDT [facility] Neutrophils % 75.0 % LAB HEMATOLOGY METHOD 06/01/2022 3:27 PM EDT [facility] Lymphocytes % 16.0 % LAB HEMATOLOGY METHOD 06/01/2022 3:27 PM EDT [facility] Monocytes % 5.0 % LAB HEMATOLOGY METHOD 06/01/2022 3:27 PM EDT [facility] Eosinophils % 2.0 % LAB HEMATOLOGY METHOD 06/01/2022 3:27 PM EDT [facility] Basophils % 1.0 % LAB HEMATOLOGY METHOD 06/01/2022 3:27 PM EDT [facility] Immature Granulocytes % 1.0 % LAB HEMATOLOGY METHOD 06/01/2022 3:27 PM EDT [facility] Neutrophils Absolute 6.28(H) 1.60 - 6.10 10*3/uL LAB HEMATOLOGY METHOD 06/01/2022 3:27 PM EDT [facility] Lymphocytes Absolute 1.33 1.20 - 3.90 10*3/uL LAB HEMATOLOGY METHOD 06/01/2022 3:27 PM EDT [facility] Monocytes Absolute 0.41 0.30 - 0.90 10*3/uL LAB HEMATOLOGY METHOD 06/01/2022 3:27 PM EDT [facility] Eosinophils Absolute 0.16 0.00 - 0.50 10*3/uL LAB HEMATOLOGY METHOD 06/01/2022 3:27 PM EDT [facility] Basophils Absolute 0.04 0.00 - 0.10 10*3/uL LAB HEMATOLOGY METHOD 06/01/2022 3:27 PM EDT [facility] Immature Granulocytes Absolute 0.05 0.00 - 0.06 10*3/uL LAB HEMATOLOGY METHOD 06/01/2022 3:27 PM EDT [facility] Blood Venous blood specimen / Unknown 06/01/2022 2:20 PM EDT 06/01/2022 3:19 PM EDT Narrative [facility] - 06/01/2022 3:27 PM EDT Therapeutic decision making should be based on absolute values, rather than percentages. us Ariel Lucas MD LAB BLOOD ORDERABLES Final Resul t Performing Organization Address City/State/[facility] Co de Phone Number [facility] [address] [place] [phone] * (ABNORMAL) C-reactive protein (06/01/2022 2:20 PM EDT) CRP, Plasma 92.1(H) <=8.0 mg/L 06/01/2022 3:42 PM EDT [facility] Blood Venous blood specimen / Unknown 06/01/2022 2:20 PM EDT 06/01/2022 3:19 PM EDT Narrative [facility] - 06/01/2022 3:42 PM EDT This CRP test is appropriate for assessment of infection, systemic inflammation and/or tissue injury. To assess cardiovascular disease risk order high sensitivity CRP (CRPH). us Ariel Lucas MD LAB BLOOD ORDERABLES Final Resul t [facility] [address] [place] [address] * (ABNORMAL) Comprehensive metabolic panel (06/01/2022 2:20 PM EDT) Glucose, Plasma 382(H) 74 - 99 mg/dL 06/01/2022 3:42 PM EDT [facility] BUN, Plasma 23 8 - 23 mg/dL 06/01/2022 3:42 PM EDT [facility] Creatinine, Plasma 3.41(H) 0.80 - 1.30 mg/dL 06/01/2022 3:42 PM EDT [facility] BUN/Creatinine Ratio 7 06/01/2022 3:42 PM EDT [facility] Sodium, Plasma 128(L) 136 - 145 mmol/L 06/01/2022 3:42 PM EDT [facility] Potassium, Plasma 3.9 3.7 - 4.8 mmol/L 06/01/2022 3:42 PM EDT [facility] Chloride, Plasma 93(L) 97 - 107 mmol/L 06/01/2022 3:42 PM EDT [facility] CO2, Plasma 26 22 - 29 mmol/L 06/01/2022 3:42 PM EDT [facility] Anion Gap 9 6 - 16 mmol/L 06/01/2022 3:42 PM EDT [facility] Total Calcium, Plasma 8.7(L) 8.9 - 10.2 mg/dL 06/01/2022 3:42 PM EDT [facility] Total Protein 7.6 6.3 - 7.9 g/dL 06/01/2022 3:42 PM EDT [facility] Albumin, Plasma 3.4(L) 3.5 - 5.2 g/dL 06/01/2022 3:42 PM EDT [facility] AST, Plasma 13(L) 19 - 48 U/L 06/01/2022 3:42 PM EDT [facility] ALT, Plasma 8(L) 11 - 41 U/L 06/01/2022 3:42 PM EDT [facility] Alkaline Phosphatase, Plasma 53 40 - 115 U/L 06/01/2022 3:42 PM EDT [facility] Total Bilirubin, Plasma 0.4 0.2 - 1.1 mg/dL 06/01/2022 3:42 PM EDT [facility] eGFRcr 19.4 mL/min/1.7 3m*2 06/01/2022 3:42 PM EDT [facility] Comment: Reported eGFRcr in mL/min/1.73m2 is based the CKD-EPI 202 equation that does not use a race coefficient. Effective 10/13/21 our laboratory changed the eGFR calculation to the CKD-EPI 2021 equation from the previously reported eGFR, based on the MDRD equation. For comparisons between the two equations, please see laboratory website: [email or web address] Blood Venous blood specimen / Unknown 06/01/2022 2:20 PM EDT 06/01/2022 3:19 PM EDT us Ariel Lucas MD LAB BLOOD ORDERABLES Final Resul t [facility] [address] [place] [address] documented in this encounter Visit Diagnoses Diagnosis Osteomyelitis of vertebra, thoracic region (CMS/HCC) documented in this encounter Additional Health Concerns Infection Onset Date Last Indicated Resolved Time MRSA 04/15/2022 12/07/2022 VRE 12/07/2022 12/07/2022 COVID-19 Rule-Out 04/14/2023 04/14/2023 04/14/2023 8:45 PM EST Assessment Noted Time A fall risk assessment has been complete d for the patient 05/09/2022 9:56 AM EST A Body Mass Index follow-up plan has been documented for the patient 04/12/2022 3:37 PM EST documented as of this encounter Care Teams Sfdc Consultant Relationship Specialty Start Date End Date Pcp, No [address] [place] [address] PCP - General Family Medicine 09/16/21 06/07/22 Leonard Botello MD [address] [facility] [address] [place] [address] PCP - General Family Medicine 06/08/22 Yesenia Morrell LPN [employer] [place] [address] TCM Nurse 07/29/22 08/04/22 Goldie Alan LPN VALUE-BASED TRANSFORMATION PROGRAM TCM Nurse Internal Medicine 08/10/22 08/11/22 Goldie Alan LPN VALUE-BASED TRANSFORMATION PROGRAM [facility] Nurse Internal Medicine 08/17/22 09/16/22 Ranjana Elias LPN [employer] [place] [address] TCM Nurse 01/13/23 02/08/23 Minnie Penn, RN CH-VASCULAR & INTERVENTIONAL RADIOLOGY Registered Nurse 10/01/24 10/01/24 documented as of this encounter
--- OUTSIDE RECORDS SUMMARY | 2024-10-29 10:18 | XMS_ITS | Encounter Summary ---
Author Organization Healthcare Address [address] [place] [address] Care Team Providers Care Class B Truck Driver Name Role Phone Pcp, No Primary Care Provider UnavailUrvashi Morocho LABORATORY MECHANIC HELPER Unavailable Unavailable Ranjana Elias LABORATORY MECHANIC HELPER Unavailable Unavailabl Yola Wheatley Unavailable Unavailable Leonard Botello MD Primary Care Provider [phone] Yesenia Morrell LABORATORY MECHANIC HELPER Unavailable Unavailable PlanGoldie gtz N LABORATORY MECHANIC HELPER Unavailable Unavailabl Goldie Mccauley LABORATORY MECHANIC HELPER Unavailable Unavailabl Ranjana Billy LABORATORY MECHANIC HELPER Unavailable UnavailMinnie Martinez RN Unavailable Unavailab le Encounter Details Date Type Department Care Team (Late st Contact Info) Description 07/29/2020 [facility] OTTR Encounter Historical OTTR [address] [place] [address] Rose Vázquez, MODERATE NEEDS TEACHER [address] [facility] [address] [place] [address] Social History Tobacco Use Types Packs/Day Years Used Date Smoking Tobacco: Never Assessed Sex and Gender Information Value Date Recorded Sex Assigned at Male 03/02/2022 1:43 PM EST Legal Sex Male 8:21 PM EDT Gender Identity Male 03/02/2022 1:43 PM EST Sexual Orientation Straight 03/02/2022 1: 43 PM EST documented as of this encounter Miscellaneous Notes * Progress Notes - Rose Vázquez, WET ROASTER - 07/29/2020 3:29 PM EDT ICE: 59 yo CM w/ ESRD 2/2 DM/ HTN, began HD maybe in 2015 PMH: End-stage renal disease Diabetes mellitus Hypertension Cognitive developmental delay Congestive heart failure Hepatitis-C History of COVID pneumonia Neuropathy PSH: Left AV fistula Bilateral TMA Ear surgery Family history: unknown Social history: He is single, lives in a family correction with a paid caregiver. He denies tobacco, alcohol, illicit drug use. Unknown blood transfusion history . PE: BMI 30.8 b/l TMA, poor pulses. Poor dentition The patient presents to clinic today with his caregiver. She tells me that she is a family home provider, Mr. Richard and another client live with her in her home. Pt. has cognitive developmental delay. Additionally, he has diabetes mellitus, hypertension, congestive heart failure(combined), and hepatitis-C. He was hospitalized with COVID pneumonia at February 2020. The patient, despite his developmental delay, does not have a power of corporate attorney. When I asked him what he understands about kidney transplant, he tells me that he would have to eat well and take medication. His caregiver reports that she has only been with him since last August, and she knows little of his medical history prior to that time. Caregiver called pt's brother to ask about POA status, brother replied he does not have POA, and instructed that I just needed to speak in layman's terms for his brother to understand. REC: not a candidate. It does not appear that he has family who can give support. Pt does not understand and transplant would not really improve much for him, and could make his caregiving more difficult. When I asked about his housing, he became fixated on nursing homes, and that he would hang himself if he had to go to one. Caregiver reports he can get agitated easily. * Progress Notes - Shasta Stout - 06/16/2020 10:31 AM EDT Called pt and spoke w/ Sharon. States she was planning on calling me back today. Pt's previously canceled NOR ICE is now scheduled for 07/22/2020 @ 1100, 1030 arrival. Sharon says pt needs new ppw. Told her I will mail new ppw to pt and gave her all appt details. She verbalized understanding of all. Updated APM, SCM, OTTR, [place], and K [address] calendar. Mailed updated 07/22/20 ICE ppw to pt and cc'd referring MD and dialysis center. * Progress Notes - Shasta Stout - 06/10/2020 9:53 AM EDT Received VM from Sharon Villarreal stating she wrote down incorrect appt info and just realized pt has appt today. She asked for call back at [phone] to r/s pt's appt. Called her back/ No answer, LVMasking for return call to discuss r/s'ing pt's appt. Notified [facility] via Teams message. * Progress Notes - Shasta Stuot - 05/20/2020 2:14 PM EST Received kidney txp referral. Called pt and spoke w/ his tool liaison (Sharon Villarreal). Verified pt's address and dialysis. PCP is [facility]. Pt scheduled for 06/10/2020 NOR ICE @ 1000, 0930 arrival. Mailed ICE ppw to pt and cc'd referring MD and dialysis center. documented in this encounter Plan of Treatment Not on file documented as of this encounter Visit Diagnoses Not on filedocumented in this encounter Additional Health Concerns Infection Onset Date Last Indicated Resolved Time MRSA Comment:Quantitative BAL/PAL culture Collection Date: 11-Dec-2018 07:22:00 Expanded Results: >100,000 cfu/ml STAPHYLOCOCCUS AUREUS (MRSA)1.0 X10 TO THE FOURTH POWER CFU/ML MIXED UPPER RESPIRATORY FLORANOTE: Patient needs MRSA Protocol 12/11/2018 08/11/2020 02/21/2022 8:[address] COVID-19 Rule-Out 02/18/2022 02/18/2022 02/18/2022 2:36 PM EST C. difficile Rule-Out 02/18/2022 02/18/20222021 8:45 AM EST Gastrointestinal Rule-Out 02/18/2022 02/18/2022 1:11 PM EST Respiratory Rule-Out 02/21/2022 02/21/2022 022 1:28 PM EST MRSA 04/15/2022 12/07/2022 VRE 12/07/2022 12/07/2022 COVID-19 Rule-Out 04/14/2023 04/14/2023 04/14/2023 8:45 PM EST documented as of this encounter Care Teams Class B Truck Driver Relationship Specialty Start Date End Date Pcp, No [address] [place] [address] PCP - General Family Medicine 09/16/21 06/07/22 Leonard Botello MD [address] [facility] [address] [place] [address] PCP - General Family Medicine 06/08/22 Urvashi Del Cid LPN [employer] [place] [address] TCM Nurse 09/30/21 10/29/21 Ranjana Elias LPN [employer] [place] [address] TCM Nurse 03/25/22 04/18/22 [place] [address] Administrative Processor Sheet Rock Applier 04/12/22 05/05/22 Yesenia Morrell LPN [employer] [place] [address] TCM Nurse 07/29/22 08/04/22 Goldie Alan LPN VALUE-BASED TRANSFORMATION PROGRAM TCM Nurse Internal Medicine 08/10/22 08/11/22 Goldie Alan LPN VALUE-BASED TRANSFORMATION PROGRAM TCM Nurse Internal Medicine 08/17/22 09/16/22 Ranjana Elias LPN [employer] [place] [address] TCM Nurse 01/13/23 02/08/23 Minnie Penn, RN CH-VASCULAR & INTERVENTIONAL RADIOLOGY Registered Nurse 10/01/24 10/01/24 documented as of this encounter
--- OUTSIDE RECORDS SUMMARY | 2024-10-29 10:18 | XMS_ITS | Clinical Summary ---
Author Organization [facility] Address [address] [place] [address] Phone Care Team Providers Care Marker Hand Name Role Phone Efren Black MD Unavailable [ ] Conditions or Problems Problem Name Problem Code Onset Date Status Entry Date Provider Comment Standard Description Annotate Acute renal failure 38960306 (SNOMED CT) 10/11 Active 10/11 Meghanfabi Lopez Acute kidney injury Acquired absence of right toe(s) Z89.421 (ICD-10-CM) 10/11 Active 10/11 Meghan Lopez Acquired absence of other right toe(s) Acute hepatitis C B17.10 (ICD-10-CM) 10/11 Active 10/11 Meghan Lopez Acute hepatitis C without hepatic coma MRSA infection 354871844 (SNOMED CT) 10/11 Active 10/11 Meghan Lopez Methicillin resistant Staphylococcus aureus infection ENTEROCOCCUS INFECTION 346679472 (SNOMED CT) 10/11 Active 10/11 Meghan Lopez Infection caused by Enterococcus Providencia infection B96.89 (ICD-10-CM) 10/11 Active 10/11 Meghan Lopez Other specified bacterial agents as the cause of diseases classified elsewhere Cellulitis, foot, right 992584808 (SNOMED CT) 10/11 Active 10/11 Meghanfabi Floreswell Cellulitis of foot Acute osteomyelitis, right foot M86.171 (ICD-10-CM) 10/11 Active 10/11 Meghan Lopez Other acute osteomyelitis, right ankle and foot Non-pressure chronic ulcer of right foot, 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 L97.411 (ICD-10-CM) 10/11 Active 10/11 Meghan Lopez Non-pressure chronic ulcer of right heel and midfoot limited to breakdown of skin DM II with foot ulcer E11.621 (ICD-10-CM) 10/11 Active 10/11 Meghan Lopez Type 2 diabetes mellitus with foot ulcer Other obesity due to excess calories 260595453 (SNOMED CT) 10/11 Active 10/11 Anastacio Schaffer Simple obesity Medications Medication Instructions Start Date Stop Date Generic Name ND Provider NORCO 5-325 MG ORAL TABLET 2 tabs by mouth every 4 hours as needed HYDROCODONE-ACETA MINOPHEN 69745822808 Anastacio Schaffer MIRALAX ORAL PACKET 17 grams by mouth twice daily as needed POLYETHYLENE GLYCOL 3350 67728917782 Anastacio Schaffer LEVEMIR 100 UNIT/ML SUBCUTANEOUS SOLUTION 20 units subcutaneous twice daily INSULIN DETEMIR 74424148345 Anastacio Schaffer NOVOLOG 100 UNIT/ML SUBCUTANEOUS SOLUTION INSULIN ASPART 69374807246 Anastacio Schaffer GABAPENTIN 600 MG TABS by mouth twice daily GABAPENTIN 97098286405 Anastacio Schaffer ANTONIETTA-Q 2 ORAL CAPSULE by mouth daily PROBIOTIC PRODUCT 05513050232 Anastacio Schaffer FLOMAX 0.4 MG ORAL CAPSULE by mouth daily TAMSULOSIN HCL 89524979830 Anastacio Schaffer ACID CONTROL MAXIMUM STRENGTH 20 MG TABS by mouth daily FAMOTIDINE 82345035689 Anastacio Schaffer ERGOCALCIFEROL 1.25 MG (67610 UT) CAPS by mouth weekly ERGOCALCIFEROL 46189859693 Anastacio Schaffer DULCOLAX 10 MG SUPP twice daily BISACODYL 84707570584 Anastacio Schaffer CATAPRES 0.1 MG ORAL TABLET CLONIDINE HCL 70709822687 Anastacio Schaffer COREG 12.5 MG TABS by mouth twice daily CARVEDILOL 05645814540 Anastacio Schaffer ASPIR-LOW 81 MG ORAL TABLET DELAYED RELEASE by mouth daily ASPIRIN 94271982203 Anastacio Schaffer AMITRIPTYLINE HCL 50 MG TABS by mouth at bedtime AMITRIPTYLINE HCL 58833058057 Anastacio Schaffer Medications Administered No information available. Allergies, Adverse Reactions, Alerts Observed no known allergies at Results Date Name Value Unit Range Flag Description Chart Maintenance: CBC/BMP/E SR/CRP 10/04 ESR 92 mm/h Erythrocyte s edimentation rate by Westergren method CRP 22.3 mg/dL C reactive pr otein [Mass/volume] in Serum or Plasma BASOPHIL % 0.7 % Basophils/ 100 leukocytes in Blood by Manual count % EOS AUTO 3.5 % Eosinophil s/100 leukocytes in Blood by Automated count MONOCYTE % 7.1 % Monocytes/ 100 leukocytes in Blood by Automated count LYMPHS % 25.7 % Lymphocytes/ 100 leukocytes in Blood by Automated count PMN % 63 % Neutrophils/1 00 leukocytes in Blood by Automated count PLATELETS 164 10*3/mm3 Platelets [#/volume] in Blood by Automated count HCT 24.1 % Hematocrit [V olume Fraction] of Blood by Automated count HGB 8.1 g/dL Hemoglobin [M ass/volume] in Blood RBC 2.67 10*6/mm3 Erythrocytes [#/volume] in Blood by Automated count WBC 8.7 10*3/mm3 Leukocytes [ #/volume] in Blood by Automated count CREATININE 1.9 mg/dL Creatinine [Mass/volume] in Serum or Plasma BUN 27 mg/dL Urea nitrogen [Mass/volume] in Serum or Plasma CALCIUM 5.8 mg/dL Calcium [Mole s/volume] in Serum or Plasma POTASSIUM 4.5 mmol/L Potassium [ Moles/volume] in Serum or Plasma SODIUM 134 mmol/L Sodium [Moles /volume] in Serum or Plasma GLUCOSE SER 114 mg/dL Glucose [ Mass/volume] in Serum or Plasma Clinical Lists Update: Prelo ad HGBA1C 8.60 % Hemoglobin A1 c/Hemoglobin, total in Blood - % Plan of Care Type Date Detail Pending order Hepatitis C Atb: (ICD 10 Code: Z11.59) Procedures No information available. Vital Signs No information available. Immunizations No information available. Advance Directives No information available.
--- OUTSIDE RECORDS SUMMARY | 2024-10-29 10:19 | XMS_ITS | Encounter Summary ---
Author Organization Healthcare Address [address] [place] [address] Care Team Providers Care Entertainment Manager Name Role Phone Leonard Botello MD Primary Care Provider [phone] Encounter Details Date Type Department Care Team (Latest Contact Info) Description 10/02/2024 Travel Social History Tobacco Use Types Packs/Day Years [...] any time in the past 12 m [facility], were you homeless or living [...] drink first t hossein in the morning (EYE-UPHOLSTERY COVERS INSPECTOR) to steady your nerves or to get [...] PM EST documented as of this encounter Functional Status * Are you deaf or do you have serious difficulty hearing? Answer Date of Assessment Author No 09/29/2021 3:17 PM EDT Mario Kim uth A * Are you blind or [...] Score (Lifetime/Recent) Answer Date of Assessment Author No Risk Indicated 10/02/2024 8:00 PM EDT Bob Olsen RN * Question Answer Date of Assessment Author 1. Wish to be (Past 1 Month) No 025 8:00 PM GISSELT Shakira Olsen RN 2. Non-Specific Active Suici taylor Thoughts (Past 1 Month) No 10/02/2024 8:00 PM EDT Shakira Olsen RN 3. Active Suicidal Ideation with any Methods (Not Plan) Without Intent to Act (Past 1 Month) No 10/02/2024 8:00 PM GISSELT Shakira Olsen RN 4. Active Suicidal Ideation with Some Intent to Act, Without Specific Plan (Past 1 Month) No 10/02/2024 8:00 PM Shakira Quach RN 5. Active Suicidal Ideation with Specific Plan and Intent (Past 1 Month) No 10/02/2024 8:00 PM EDT Shakira Olsen RN 6. Suicidal Behavior (Lifetime) No 5 8:00 PM EDT Shakira Olsen RN documented as of this encounter Mental Status * Because of a physical, mental, or emotional condition, do you have serious difficulty concentrating, remembering, or making decisions? (5 years old or older) Answer Entry Date Author Yes 09/29/2021 3:17 PM EDT Mario Kim documented in this encounter Plan of Treatment [...] documented as of this encounter Care Teams Entertainment Manager Relationship Specialty Start Date End Date Leonard Botello MD [address] [address] PCP - General Family Medicine 06/08/22 documented as of this encounter
--- OUTSIDE RECORDS SUMMARY | 2024-10-29 10:19 | XMS_ITS | Encounter Summary ---
Author Organization Healthcare Address [address] [place] [address] Care Team Providers Care Labourers Name Role Phone Leonard Botello MD Primary Care Provider [phone] Encounter Details Date Type Department Care Team (Latest Contact Info) Description 10/09/2024 Travel Social History Tobacco Use Types Packs/Day [...] place to sleep or slept in a intermediate (including now)? No 04/17/2023 Humiliation, Afraid, Rape, [...] any time in the past 12 m [facility], were you homeless or living in a intermediate (including now)? 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-CUSTODIAN SUPERVISOR) to steady your nerves or to get [...] PM EDT Mario Kim uth A * Calculated C-SSRS Risk Score (Lifetime/Recent) Answer Date of Assessment Author No Risk Indicated 10/09/2024 8:00 PM EDT Dayron Rodrigues Jr., RN * Question Answer Date of Assessment Author 1. Wish to be (Past 1 Month) No 10/09/2024 8:00 PM GISSELT Tristian Jama Jr., RN 2. Non-Specific Active Suicidal Thoughts (Past 1 Month) No 10/09/2024 8:00 PM EDT Tristian Jama Jr., RN 3. Active Suicidal Ideation with any Methods (Not Plan) Without Intent to Act (Past 1 Month) No 10/09/2024 8:00 PM Tristian Cherry Jr., RN 4. Active Suicidal Ideation with Some Intent to Act, Without Specific Plan (Past 1 Month) No 10/09/2024 8:00 PM GISSELT Tristian Jama Jr., RN 5. Active Suicidal Ideation with Specific Plan and Intent (Past 1 Month) No 10/09/2024 8:00 PM EDT Scott Jama Jr., RN 6. Suicidal Behavior (Lifetime) No 10/09/2024 8:00 PM EDT Tristian Jama Jr., RN documented as of this encounter Mental [...] documented as of this encounter Care Teams Labourers Relationship Specialty Start Date End Date Leonard Botello MD [address] [phone] PCP - General Family Medicine 06/08/22 documented as of this encounter
--- OUTSIDE RECORDS SUMMARY | 2024-10-29 10:19 | XMS_ITS | Encounter Summary ---
Author Organization Healthcare Address [address] [place] [address] Care Team Providers Care Social Media Executive Name Role Phone Leonard Botello MD Primary Care Provider [phone] Minnie Penn RN Unavailable Unavailab le Reason for Visit * Reason Comments Link Encounter Details Date Type Department Care Team (Late st Contact Info) Description 10/01/2024 Patient Outreach [facility] [address], [address] [place] [address] Mninie Penn, RN CH-VASCULAR & INTERVENTIONAL RADIOLOGY Link Social History Tobacco Use Types Packs/Day Years [...] place to sleep or slept in a care home (including now)? No 04/17/2023 Humiliation, Afraid, Rape, [...] any time in the past 12 m [facility], were you homeless or living in a care home (including now)? 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-SOCIAL SCIENCES DEPARTMENT CHAIR) to steady your nerves or to get rid of a hangover? 0 06/25/2023 CAGE Questionnaire Score 0 024 Utilities Answer Date Recorded In the past 12 months has th e electric, gas, oil, or water [employer] threatened to shut off services in your [...] Author No 09/29/2021 3:17 PM EDT Mario Kimh A * Are you blind or do you have serious difficulty seeing, even when wearing glasses? Answer Date of Assessment Author Yes 09/29/2021 3:17 PM EDT Mario Kimh A * Do you have serious difficulty walking or climbing stairs? Answer Date of Assessment Author Yes 09/29/2021 3:17 PM EDT Mario Kimh A * Do you have serious difficulty dressing or bathing? Answer Date of Assessment Author Yes 09/29/2021 3:17 PM EDT Mario Kimh A * Because of a physical, mental, or emotional condition, do you have serious difficulty doing errandsalone such as visiting the doctor? Answer Date of Assessment Author Yes 09/29/2021 3:17 PM EDT Mario Kim uth A * Calculated C-SSRS Risk Score (Lifetime/Recent) Answer Date of Assessment Author No Risk Indicated 10/01/2024 8:00 AM Filiberto Schwab RN * Question Answer Date of Assessment Author 1. Wish to be (Past 1 Month) No 10/01/2024 8:00 AM Filiberto Schwab RN 2. Non-Specific Active Suici taylor Thoughts (Past 1 Month) No 10/01/2024 8:00 AM Dangelo Schwab RN 6. Suicidal Behavior (Lifetime) No 8:00 AM Filiberto Schwab RN documented as of this encounter Mental Status * Because of a physical, mental, or emotional condition, do you have serious difficulty concentrating, remembering, or making decisions? (5 years old or older) Answer Entry Date Author Yes 09/29/2021 3:17 PM EDT Mario Kim documented in this encounter Miscellaneous Notes * Progress Notes - Minnie Penn, RN - 10/01/2024 8:36 AM EDT Patient identified for LINK program. Following chart review, patient determined to be ineligible based on program criteria. documented in this encounter Plan of Treatment [...] documented as of this encounter Care Teams Social Media Executive Relationship Specialty Start Date End Date Leonard Botello MD [address] [phone] PCP - General Family Medicine 06/08/22 Minnie Penn, RN CH-VASCULAR & INTERVENTIONAL RADIOLOGY Registered Nurse 10/01/24 10/01/24 documented as of this encounter
--- OUTSIDE RECORDS SUMMARY | 2024-10-29 10:19 | XMS_ITS | Encounter Summary ---
Author Organization Healthcare Address [address] [place] [address] Care Team Providers Care Overhauler Bus Truck Name Role Phone Leonard Botello MD Primary Care Provider [phone] Encounter Details Date Type Department Care Team (Latest Contact Info) Description 09/30/2024 Travel Social History Tobacco Use Types Packs/Day Years Used Date Smoking Tobacco: Never Smokeless Tobacco: Never Alcohol Use Standard Drinks/Week Comments Not Currently 0 (1 standard drink = 0.6 oz pur e alcohol) Humiliation, Afraid, Rape, and Kick questionnair e Answer Date Recorded Within the last year, have y ou been afraid of your partner or ex-partner? No 04/17/2023 Within the last year, have y ou been humiliated or emotionally abused in other ways by your partner or ex-partner? No Within the last year, have y ou been kicked, hit, slapped, or otherwise physically hurt by your partner or ex-partner? No 04/17/2023 Within the last year, have y ou been raped or forced to have any kind of sexual activity by your partner or ex-partner? No 04/17/2023 PHQ-2 Answer Date Recorded Patient Health Questionnaire-2 Score 0 09/13/2022 Hunger Vital Sign Answer Date Recorded Within the past 12 months, y ou worried that your food would run out before you got the money to buy more. Never true 04/17/19 24 Within the past 12 months, t he food you bought just didn't last and you didn't have money to get more. Never true 04/17/2023 PRAPARE - Transportation Answer Date Re corded In the past 12 months, has l ack of transportation kept you from medical appointments or from getting medications? No 03/21 In the past 12 months, has l ack of transportation kept you from meetings, work, or from getting things needed for daily living? No 04/17/2023 Housing Stability Vital Sign Answer Grover e [...] place to sleep or slept in a halfway (including now)? No 04/17/2023 CAGE ASSESSMENT Answer Date Recorded Cage unable [...] drink first t hossein in the morning (EYE-CUP MACHINE OPERATOR) to steady your nerves or to get rid of a hangover? 0 06/25/2023 CAGE Questionnaire Score 0 024 Utilities Answer Date Recorded In the past 12 months has th e electric, gas, oil, or water company threatened to shut off services in your home? No 04/17/2023 PHQ-2A Answer Date Recorded Patient Health Questionnaire-2 [...] Date of Assessment Author No Risk Indicated 09/30/2024 9:00 PM EDT Bob Olsen RN * Question Answer Date of Assessment Author 1. Wish to be (Past 1 Month) No 025 9:00 PM EDT Shakira Olsen RN 2. Non-Specific Active Suici taylor Thoughts (Past 1 Month) No 09/30/2024 9:00 PM EDT Shakira Olsen RN 6. Suicidal Behavior (Lifetime) No 9:00 PM EDT Shakira Olsen RN documented as [...] documented as of this encounter Care Teams Overhauler Bus Truck Relationship Specialty Start Date End Date Leonard Botello MD [address] [facility] [address] [place] [address] PCP - General Family Medicine 06/08/22 documented as of this encounter
--- OUTSIDE RECORDS SUMMARY | 2024-10-29 10:19 | XMS_ITS | Encounter Summary ---
Author Organization Healthcare Address [address] [place] [address] Care Team Providers Care Production Engine Repairer Name Role Phone Pcp, No Primary Care Provider UnavailRanjana Castellanos CONTAMINATION CONSULTANT Unavailable UnavailYola Bains Unavailable Unavailable Leonard Botello MD Primary Care Provider Yesenia Morrell CONTAMINATION CONSULTANT Unavailable Unavailable Goldie Alan CONTAMINATION CONSULTANT Unavailable UnavailGoldie Kong CONTAMINATION CONSULTANT Unavailable UnavailRanjana Castellanos CONTAMINATION CONSULTANT Unavailable UnavailMinnie Martinez RN Unavailable Unavailab le Encounter Details Date Type Department Care Team (Late st Contact Info) Description 04/04/2022 Lab Requisition [facility] [address] [place] [address] Ariel Lucas MD [address] [place] [address] End stage renal disease (CMS/HCC) Social History Tobacco Use Types Packs/Day Years Used Date Smoking Tobacco: Never Smokeless Tobacco: Never Alcohol Use Standard Drinks/Week Comments Not Currently 0 (1 standard drink = 0.6 oz pur e alcohol) PHQ-2 Answer Date Recorded Patient Health Questionnaire-2 Score 1 12/22/2021 Sex and Gender Information Value Date Recorded [...] 09/29/2021 3:17 PM EDT Mario Kim A documented as of this encounter Mental Status * Because of a physical, mental, or emotional condition, do you have serious difficulty concentrating, remembering, or making decisions? (5 years old or older) Answer Entry Date Author Yes 09/29/2021 3:17 PM EDT Mario Kim A documented in this encounter Plan of Treatment Scheduled Orders Name Type Priority Associated Diagnoses Orde r Schedule CBC and Differential Lab Routine End stage renal disease ([facility]/HCC) Ordered: 04/04/2022 documented as of this encounter Procedures Procedure Name Priority Date/Time Associated Diagnosis Comments COMPREHENSIVE METABOLIC PANEL, PLASMA Routine 04/04/2022 1:30 PM EST End stage renal disease (CMS/HCC) documented in this encounter Results * (ABNORMAL) Comprehensive metabolic panel (04/04/2022 1:30 PM EST) Glucose, Plasma 167(H) 74 - 99 mg/dL 04/04/2022 2:29 PM EST [facility] BUN, Plasma 24(H) 8 - 23 mg/dL 04/04/2022 2:29 PM EST [facility] Creatinine, Plasma 5.86(H) 0.80 - 1.30 mg/dL 04/04/2022 2:29 PM EST [facility] BUN/Creatinine Ratio 4 04/04/2022 2:29 PM EST [facility] Sodium, Plasma 137 136 - 145 mmol/L 04/04/2022 2:29 PM EST [facility] Potassium, Plasma 3.8 3.7 - 4.8 mmol/L 04/04/2022 2:29 PM EST [facility] Comment:Reference range for Serum potassium is 0.2 to 0.5 mmol/L higher than Plasma range. Chloride, Plasma 100 97 - 107 mmol/L 04/04/2022 2:29 PM EST [facility] CO2, Plasma 25 22 - 29 mmol/L 04/04/2022 2:29 PM [facility] Anion Gap 12 6 - 16 mmol/L 04/04/2022 2:29 PM [facility] Total Calcium, Plasma 8.8(L) 8.9 - 10.2 mg/dL 04/04/2022 2:29 PM [facility] Total Protein 7.9 6.3 - 7.9 g/dL 04/04/2022 2:29 PM [facility] Albumin, Plasma 3.4(L) 3.5 - 5.2 g/dL 04/04/2022 2:29 PM [facility] AST, Plasma 20 19 - 48 U/L 04/04/2022 2:29 PM [facility] ALT, Plasma <5(L) 11 - 41 U/L 04/04/2022 2:29 PM [facility] Alkaline Phosphatase, Plasma 72 40 - 115 U/L 04/04/2022 2:29 PM [facility] Total Bilirubin, Plasma 0.4 0.2 - 1.1 mg/dL 04/04/2022 2:29 PM [facility] eGFRcr 10.1 mL/min/1.7 3m*2 04/04/2022 2:29 PM [facility] Comment: Reported eGFRcr in mL/min/1.73m2 is based the CKD-EPI 2021 equation that does not use a race coefficient. Effective 10/13/21 our laboratory changed the eGFR calculation to the CKD-EPI 2021 equation from the previously reported eGFR, based on the MDRD equation. 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 COVID-19 Rule-Out 04/14/2023 04/14/2023 04/14/2023 8:45 PM EST documented as of this encounter Care Teams Production Engine Repairer Relationship Specialty Start Date End Date Pcp, No [address] [place] [address] PCP - General Family Medicine 09/16/21 06/07/22 [place] [address] [place] [address] [address] [place] [address] PCP - General Family Medicine 06/08/22 Ranjana Elias LPN [employer] [address] TCM Nurse 03/25/22 04/18/22 [place] [address] Helper Shear Operator Cooking Chef 04/12/22 05/05/22 Yesenia Morrell LPN [employer] [address] TCM Nurse 07/29/22 08/04/22 Goldie lAan LPN VALUE-BASED TRANSFORMATION PROGRAM TCM Nurse Internal Medicine 08/10/22 08/11/22 Goldie Alan LPN VALUE-BASED TRANSFORMATION PROGRAM TCM Nurse Internal Medicine 08/17/22 09/16/22 Ranjana Elias LPN [employer] [address] TCM Nurse 01/13/23 02/08/23 Minnie Penn, RN CH-VASCULAR & INTERVENTIONAL RADIOLOGY Registered Nurse 10/01/24 10/01/24 documented as of this encounter
--- OUTSIDE RECORDS SUMMARY | 2024-10-29 10:19 | XMS_ITS | Encounter Summary ---
Author Organization [facility] Address [address] [place] [address] Care Team Providers Care Jewel Oliving Machine Operator Name Role Phone Leonard Botello MD Primary Care Provider [phone] Encounter Details Date Type Department Care Team (Late st Contact Info) Description 10/02/2024 Patient Outreach [facility] [address] [place] [address] Enoc Bustillo Social History Tobacco Use Types Packs/Day Years [...] place to sleep or slept in a skilled nursing (including now)? No 04/17/2023 Humiliation, Afraid, Rape, [...] any time in the past 12 m [facility], were you homeless or living [...] drink first t hossein in the morning (EYE-TOLL LINEMAN) to steady your nerves or to get [...] 3:17 PM EDT Mario Kimh A * Calculated C-SSRS Risk Score (Lifetime/Recent) Answer Date of Assessment Author No Risk Indicated 10/12/2024 8:00 PM EDT Carri Chand * Question Answer Date of Assessment Author 1. Wish to be (Past 1 Month) No 025 8:00 PM EDT Carri Chand 2. Non-Specific Active Suici taylor Thoughts (Past 1 Month) No 10/12/2024 8:00 PM EDT Carri Chand 3. Active Suicidal Ideation with any Methods (Not Plan) Without Intent to Act (Past 1 Month) No 10/12/2024 8:00 PM EDT Carri Chand 4. Active Suicidal Ideation with Some Intent to Act, Without Specific Plan (Past 1 Month) No 10/12/2024 8:00 PM EDT Carri Chand 5. Active Suicidal Ideation with Specific Plan and Intent (Past 1 Month) No 10/12/2024 8:00 PM EDT Carri Chand 6. Suicidal Behavior (Lifetime) No 8:00 PM EDT Carri Chand documented as of this encounter Mental Status [...] documented as of this encounter Care Teams Jewel Oliving Machine Operator Relationship Specialty Start Date End Date Leonard Botello MD [address] [phone] PCP - General Family Medicine 06/08/22 documented as of this encounter
--- OUTSIDE RECORDS SUMMARY | 2024-10-29 10:19 | XMS_ITS | Encounter Summary ---
Author Organization Healthcare Address [address] [place] [address] Care Team Providers Care Research Geneticist Name Role Phone Leonard Botello MD Primary Care Provider [phone] Encounter Details Date Type Department Care Team (Latest Contact Info) Description 10/21/2024 Travel Social History Tobacco Use Types Packs/Day [...] place to sleep or slept in a group home (including now)? No 04/17/2023 Humiliation, Afraid, [...] any time in the past 12 m [facility], were you homeless or living in a group home (including now)? No 10/02/2024 CAGE ASSESSMENT [...] drink first t hossein in the morning (EYE-SUPERVISOR WHITE SUGAR) to steady your nerves or to get [...] Assessment Author Low Risk 10/21/2024 8:29 AM Jose J Santillan * Question Answer Date of Assessment Author [...] 1 Month) No 10/21/2024 8:29 AM Jane Bae 6. Suicidal Behavior (Lifetime) No 8:29 AM [...] documented as of this encounter Care Teams Research Geneticist Relationship Specialty Start Date End Date Leonard Botello MD [address] [phone] PCP - General Family Medicine 06/08/22 documented as of this encounter
--- OUTSIDE RECORDS SUMMARY | 2024-10-29 10:19 | XMS_ITS ---
Author Organization Healthcare Address [address] [place] [address] Care Team Providers Care Rural Carrier Associate Name Role Phone Leonard Botello MD Primary Care Provider LINK Program Status:Closed (Closed) Start date:10/01/2024 Enrollment date:10/01/2024 End date:10/01/2024 Close reason:Not Eligible Overview Patient identified for LINK program. Following chart review, patient determined to be ineligible based on program criteria. Continued Care and Services Coordination
--- OUTSIDE RECORDS SUMMARY | 2024-10-29 10:19 | XMS_ITS | Encounter Summary ---
Author Organization Healthcare Address [address] [place] [address] Care Team Providers Care Claim Manager Name Role Phone Leonard Botello MD Primary Care Provider [phone] Encounter Details Date Type Department Care Team (Latest Contact Info) Description 10/04/2024 Travel Social History Tobacco Use Types Packs/Day [...] place to sleep or slept in a residential (including now)? No 04/17/2023 Humiliation, Afraid, Rape, [...] any time in the past 12 m [facility], were you homeless or living in a residential (including now)? 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-UNCRATER) to steady your nerves or to get [...] PM EDT Julio, R uth A * Do you have [...] Date Author Yes 09/29/2021 3:17 PM EDT Julio R uth A documented in this encounter [...] documented as of this encounter Care Teams Claim Manager Relationship Specialty Start Date End Date Leonard Botello MD [address] [phone] PCP - General Family Medicine 06/08/22 documented as of this encounter
--- OUTSIDE RECORDS SUMMARY | 2024-10-29 10:19 | XMS_ITS | Clinical Summary ---
Author Organization Healthcare Address [address] [place] [address] Care Team Providers Care Delivery Professional Name Role Phone Leonard Botello MD Primary Care Provider [phone] Allergies No known active allergies Medications * This document contains information received from the source organization and may not represent a complete record from that organization. traZODone (Desyrel) 100 MG tabletIndication s:Primary insomnia Take 1 tablet (100 mg) by mouth every night. 30 tablet 2 01/20/20 23 Active atorvastatin (Lipitor) 40 MG tablet Take 1 tablet by mouth nightly. Active ASPIRIN 81 MG chewable tablet Chew 1 tablet daily. Active Calcium Carbonate (CALCIUM 600 PO) Take 2 tablets by mouth nightly. Active carvedilol (Coreg) 12.5 MG tablet Take 1 tablet by mouth daily. Active clopidogrel (Plavix) 75 MG tablet Take 1 tablet by mouth daily. Active divalproex sprinkle (Depakote Sprinkles) [address] capsule Take 2 capsules by mouth 2 times a day. Active melatonin tablet Take 3 tablets by mouth at night as needed for sleep. Active B complex-vitamin C-folic acid (Nephro-Salvador) 0.8 MG tablet Take 1 tablet by mouth daily. Active sertraline (Zoloft) 25 MG tablet Take 1 tablet by mouth daily. Take with 50mg tablet for total daily dose of 75mg. Active sertraline (Zoloft) 50 MG tablet Take 1 tablet by mouth daily. Take with 25mg tablet for total daily dose of 75mg. Active NIFEdipine XL (Adalat CC) 60 MG 24 hr tablet Take 1 tablet by mouth 1 (one) time each day at the same time. Do not crush, chew, or split. 10/22/19 Active senna (Senokot) 8.6 MG tablet Take 2 tablets by mouth nightly. 10/22/19 Active calcitriol (Rocaltrol) 0.25 MCG capsule Take 1 capsule (0.25 mcg total) by mouth 1 (one) time each day. 30 capsule 3 03/24/19 025 Discontinued(En tered in Error) cholecalciferol (Vitamin D-3) 50 MCG (2000 UT) capsule Take 1 capsule (2,000 Units total) by mouth 1 (one) time each day. 30 capsule 3 03/24/19 025 Discontinued(En tered in Error) atorvastatin (Lipitor) 80 MG tablet Take 1 tablet by mouth daily. 025 Discontinued(En tered in Error) calcium acetate (Phoslo) 667 MG capsule Take 1 capsule (667 mg) by mouth 3 (three) times a day with meals. 025 Discontinued(En tered in Error) pantoprazole (Protonix) 40 MG EC tablet Take 1 tablet (40 mg) by mouth 1 (one) time each day before breakfast. Do not crush, chew, or split. 025 Discontinued(En tered in Error) sertraline (Zoloft) 100 MG tablet Take 1 tablet (100 mg) by mouth 1 (one) time each day. 025 Discontinued(En tered in Error) QUEtiapine (SEROquel) 25 MG tablet Take 1 tablet (25 mg) by mouth 2 (two) times a day. 05/09/19 025 Discontinued(En tered in Error) Epoetin Rj-epbx (Retacrit) 27178 UNIT/ML injection Inject 13,400 Units/kg under the skin 3 (three) times a week. 025 Discontinued(En tered in Error) iron sucrose (Venofer) 20 MG/ML injection Infuse 5 mL (100 mg) into a venous catheter 1 (one) time in dialysis. 025 Discontinued(En tered in Error) carvedilol (Coreg) 25 MG tablet Take 1 tablet (25 mg) by mouth 1 (one) time each day. 30 tablet 08/31/19 24 025 Discontinued(En tered in Error) NIFEdipine XL (Procardia XL) 30 MG 24 hr tablet Take 3 tablets (90 mg) by mouth 1 (one) time each day at the same time. Do not crush, chew, or split. 90 tablet 08/31/19 24 025 Discontinued insulin lispro (Admelog, HumaLOG) 100 UNIT/ML injection pen Inject 2 Units under the skin 3 times a day with meals. Injected per sliding scale 025 Discontinued insulin glargine (Lantus) 100 UNIT/ML injection vial Inject 5 Units under the skin nightly. 025 Discontinued sodium zirconium cyclosilicate (Lokelma) 10 g packet Take 10 g by mouth daily. 025 Discontinued Asenapine (Secuado) 3.8 MG/24HR patch [address] 1 patch on the skin daily. 025 Discontinued sevelamer carbonate (Renvela) 800 MG tablet Take 1 tablet by mouth 3 times a day with meals. Swallow tablet whole; do not crush, break, or chew. 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 06/07/2024 Assessment & Plan (10/01/2024 6:37 AM EDT): - continue statin, ASA, clopidogrel as above Non-pressure chronic ulcer o f left heel and midfoot limited to breakdown of skin 10/13/2023 Chronic kidney disease-mineral and bone disorder (CKD-MBD) 08/27/2023 Assessment & Plan (10/01/2024 5:23 AM EDT): - continue Renvela 800 mg TID with meals Electrolyte and fluid disorder 06/07/2023 Assessment & Plan (10/01/2024 6:37 AM EDT): - potassium 3.0, magnesium 1.7 replaced per protocol PLAN - switch lokelma daily to 10 mg on non-dialysis days - follow-up RFP, trend Na History of transmetatarsal amputation of foot Assessment & Plan (10/01/2024 6:37 AM EDT): - chronic OM 2/2 DM foot ulcers s/p bilateral transmetarsal amputation Anemia in chronic kidney disease (CODE) 04/30/19 24 Assessment & Plan (10/01/2024 6:37 AM EDT): - Hgb stable, transfuse to keep >7 - ferritin, iron studies Declining functional status 04/15/2023 Assessment & Plan (10/01/2024 6:37 AM EDT): - [facility] and since arrival refusing HD, to eat, participate, or take medications - sent to ED for medical evaluation and need for higher level of assist/unable to care for self/non-compliance - afebrile, VSS, no acute complaints PLAN - PT/OT consult re: placement - legal guardian is his brother, Chris Dooley, #[phone] Chronic osteomyelitis 12/20/2022 BPH (benign prostatic hyperplasia) 04/15/2022 Gastroesophageal reflux disease without esophagi tis 04/15/2022 Assessment & Plan (10/01/2024 6:37 AM EDT): - continue daily PPI Anxiety and depression 04/15/2022 Assessment & Plan (10/01/2024 6:37 AM EDT): - continue sertraline 75 mg daily Chronic combined systolic (c ongestive) and diastolic (congestive) heart failure 02/18/2022 Assessment & Plan (10/01/2024 6:37 AM EDT): - ECHO 06/27/2022: EF 45%, abnormal diastolic dysfunction - strict I/O, 2 L fluid restriction, cardiac/renal/CCHO2 diet Dementia 02/18/2022 Assessment & Plan (10/01/2024 6:37 AM EDT): - Delirium precautions - Pharm med rec pending re: home Asenapine 3.8 mg daily Insomnia, unspecified 12/22/2021 Assessment & Plan (10/01/2024 6:37 AM EDT): - continue trazodone 100 mg at bedtime, melatonin 3 mg at bedtime Assessment & Plan (01/19/2023 2:27 PM EDT): -caregiver stated trazodone was accidentally discontinued from admission -refill provided -patient to follow up with PCP for further management Assessment & Plan (12/22/2021 10:42 AM EDT): -caregiver stated the increase to trazodone 100mg has helped with sleep. -continue to create good sleep patterns prior to going to bed. Reduce lights, turn off the tv At high risk for falls 10/12/2021 Assessment & Plan (10/01/2024 6:37 AM EDT): - wheelchair dependent, fall precautions ESRD (end stage renal disease) on dialysis 09/16 Assessment & Plan (10/01/2024 6:37 AM EDT): - Missed HD (MWF) earlier today, last session 3 days ago (09/27/2024) via [facility] AVF - Cr 7.58 PLAN - renally dose meds based on EGFR - strict I/O, daily weight - consult Nephrology in AM Assessment & Plan (12/22/2021 10:43 AM EDT): -Spoke to dialysis clinic that patient attends for up to date labs. They are processing labs this week and told discharge clinic staff to call 12/27 for updated labs to be faxed. -Patient to follow up with PCP for future management of electrolytes Arterial insufficiency 05/18/2021 Assessment & Plan (10/01/2024 6:37 AM EDT): - continue aspirin 81 mg daily, clopidogrel 75 mg daily Mild intellectual disabilities 08/30/2019 Assessment & Plan (10/01/2024 6:37 AM EDT): - last neuropsych exam in 2023 found to not have capacity, brother is legal guardian - continue Depakote Sprinkle 250 mg twice daily DM type 2 without retinopathy 11/21/2018 Assessment & Plan (01/19/2023 10:25 PM EDT): -caregiver received order to cancel lantus 5units nightly from hospital discharge MD -7am BS are between 180-200 without taking nightly lantus 5 units -Education provided to keep BS log and caregiver has insulin at home for the patient -Importance of compliance provided to caregiver and patient -Home health comes to address patients wound to right foot, scab formation to right heel and unable to pack. Can leave open to air once the scab is fully formed and practice good hygiene. -Patient to continue current 2 day a week dialysis: Monday and Monday, will follow up wit nephrology for labs -Caregiver requested disability parking pass, filled out and handed to caregiver to go with patient to [facility] commissary clerk for notary obtaining pass. Sensorineural hearing loss, bilateral 01/11/2018 Assessment & Plan (10/01/2024 6:37 AM EDT): - complicates all aspects of care Wears hearing aid in both ears 12/08/2017 Assessment & Plan (10/01/2024 6:37 AM EDT): - not present with patient on admission Assessment & Plan (04/12/2022 3:09 PM EST): -Broken hearing aids -Barrier to communicate with patient Non-pressure chronic ulcer o f right heel and midfoot limited to breakdown of skin 10/11/2016 Chronic hepatitis C without hepatic coma 015 Assessment & Plan (10/01/2024 6:37 AM EDT): - HCV RNA PCR not detected 07/13/2023 Diabetic peripheral neuropathy 02/10/2014 Type 2 diabetes mellitus wit h chronic kidney disease on chronic dialysis 11/15/2013 Assessment & Plan (10/01/2024 6:37 AM EDT): - last A1c 4.8% over a year ago - presenting glucose 185, repeat A1c pending PLAN - ACHS regular SSI - hold home glargine 5U at bedtime while trend glucose/PO intake Assessment & Plan (12/22/2021 10:41 AM EDT): -pt following up with endo later today for further management and care Non-ischemic cardiomyopathy 07/22/2013 Essential (primary) hypertension 11/23/2011 Assessment & Plan (10/01/2024 6:37 AM EDT): - continue carvedilol 12.5 mg twice daily, nifedipine XL 30 mg daily (hold for BP <120/80 on dialysis days) Mixed hyperlipidemia 11/23/2011 Assessment & Plan (10/01/2024 6:37 AM EDT): - continue atorvastatin 40 mg at bedtime Hypoparathyroidism 11/23/2011 Resolved Problems Problem Noted Date Diagnosed Date Resolved Date Hypo-osmolality and hyponatremia 10/03/2023 10/01/2024 Primary hypertension 08/27/2023 024 Chronic kidney disease-mineral technologist al and bone disorder 06/07/2023 08/31/2023 Anemia due to chronic kidney disease, on chronic dialysis 06/07/2023 08/31/2023 Systolic heart failure 04/30/202310/01 Failure to thrive in adult 04/18/2023 0 09/30/2024 Chronic fatigue, unspecified 04/17/2023 10/01/2024 Unable to care for self 04/17/202309/17 Constipation 12/08/2022 10/01/2024 Acute osteomyelitis 11/29/2022 10/02/19 25 Hypoxia 08/03/2022 09/30/2024 SIRS (systemic inflammatory response syndrome) 08/03/2022 09/30/2024 End-stage renal disease 07/27/202209/17 Central line-associated bloodstream infection 06/30/19 23 09/30/2024 Bacteremia associated with intravascular line 06/29/1909/30/2024 Declining functional status 06/28/2022 09/30/2024 Protein-calorie malnutrition 06/27/2022 10/01/2024 Pneumonia of left lower lobe due to infectious organism 06/25/2022 09/30/2024 Osteomyelitis 04/15/2022 10/01/2024 Muscular deconditioning 04/12/202209/17 Assessment & Plan (04/12/2022 3:41 PM EST): -per caregiver patient has lost 30lbs and will not walk, but only lay in bed -Non- Home health referral was placed 03/24/22, but never initiated. Patient has not received care for this since discharge -outpatient referral placed for evaluation and treatment for inpatient services at [facility] -patient will be contacted pertaining on when to arrive to [facility] for evaluation -Caregiver spoke with celso Ruff (health care social worker) and was instructed to contact health care social worker for any further questions -Education provided that if patient unable to drink or eat, or starts having altered level of consciousness to take to the ED for evaluation. MSSA bacteremia 03/04/2022 09/30/2024 Assessment & Plan (04/12/2022 3:42 PM EST): - No fevers, chills noted per caregiver -Patient follows with ID for further treatment -Patient to start duricef tomorrow to be taken after dialysis M/W/F Nausea, vomiting and diarrhea 02/18/2022 09/30/2024 Infection of AV graft for dialysis 02/18/2022 10/01/2024 Overview (02/28/2022): Added automatically from request for surgery [id number] Non-compliance 12/24/2021 10/01/2024 Aches 12/22/2021 09/30/2024 Assessment & Plan (12/22/2021 10:44 AM EDT): -symptomatic treatment for aches after flu shot -include more rest, and use tylenol and ibuprofen for aches until resolved Acute nonintractable headache 12/22/2021 09/30/2024 Assessment & Plan (12/22/2021 10:45 AM EDT): -patient endorses headache with flu vaccine -symptomatic treatment advised. Benign hypertension with CKD (chronic kidney disease) stage IV 11/14/2018 10/01/2024 Encounters Date Type Department Care Team Description 10/21/2024 Travel 10/18/2024 Travel 10/17/2024 Travel 10/16/2024 Travel 10/15/2024 Travel 10/14/2024 Travel 10/11/2024 Travel 10/09/2024 Travel 10/07/2024 Travel 10/04/2024 Travel 10/02/2024 Patient Outreach [facility] [address] [place] [address] Enoc Bustillo 10/02/2024 Travel 10/01/2024 Patient Outreach [facility] [address], [address] [place] [address] Minnie Penn, RN Link 09/30/2024 3:29 PM EDT - 10/21/2024 3:10 PM EDT Hospital Encounter [facility] [address] [place] [address] Lesvia Hudson MD Khalid, MD Warren Pedersen Elizabeth, MD Kidwai, MD Tori Mendieta Padmaja, MD ESRD (end stage renal disease) (CMS/[facility]) (Primary Dx); Noncompliance by refusing service; ESRD (end stage renal disease) on dialysis (CMS/[facility]ER[facility]); Declining functional status Discharge Disposition: Long Term Facility 09/30/2024 Travel from Last 3 Months Immunizations Immunization Administration Dates Next Due Hep A / Hep B 03/24/2014,02/10/2014 Hep B, adult 07/22/2014 Influenza, Injectable, MDCK, trivalent, PF 12/25/2013 Influenza, high-dose, quadrivalent 12/29/2023 Influenza, injectable, quadr ivalent, preservative free 01/09/2023,12/17/2021,01/07/2021,12/28,10/25/2016,12/21/2014 Influenza, seasonal, injectable 12/19/19 18,10/04/2016,01/19/2016,01/09,02/15/2007 Influenza, seasonal, injecta ble, preservative free 01/14/2016,01/15/2013,12/29/2011,12/25,12/03/2008 PPD Skin Test (TB Skin Test) 06/07/2024,09/07/19 24,08/31/2023 Pfizer-BioNTech COVID-19 Biv alent ([place] Cap) 12+ years (don-sucrose) 01/03/2022 Pfizer-BioNTech COVID-19 Vac cine (Purple Cap) 12+ 04/07/2021,07/23/2020,07/02/2020 Pneumococcal 20-wendy Conj Vaccine 02/04/2022 Pneumococcal Conjugate PCV 13 07/07/2016 Pneumococcal Polysaccharide PPV23 02/04/2021,01/2019,07/13/2015 Rsvpref, Recombinant, Protei n Subunit, Adjuvent 01/16/2024 Td (adult), unspecified 12/18/2007 Tdap 12/05/2016 Family History Medical History Relation Name Comments Diabetes Mother Emphysema Mother Diabetes Other 1 Conversions - Other Other 2 Diagnosi s unknown Diabetes Sister Anesthesia problems Neg Hx Malig Hyperthermia Neg Hx Relation Name Status Comments Mother Other 1 Other 2 Sister Social History Tobacco Use Types Packs/Day Years Used Date Smoking Tobacco: Never Smokeless Tobacco: Never Tobacco Cessation:Counseling Given: Not Answered Alcohol Use Standard Drinks/Week Comments Not Currently [...] any time in the past 12 m [facility], were you homeless or living in a [...] drink first t hossein in the morning (E[employer]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 0 06/25/2023 CAGE Questionnaire Score 0 024 Utilities Answer Date Recorded In the past 12 months has e electric, gas, oil, or water company threatened to shut off services in your home? No 10/02/2024 PHQ-2A Answer Date Recorded Patient Health Questionnaire-2 Score 0 09/13/2022 Sex and Gender Information Value Date Recorded Sex Assigned at Male 03/02/2022 1:43 PM EST Legal Sex Male 8:21 PM EDT Gender Identity Male 03/02/2022 1:43 PM EST Sexual Orientation Straight 03/02/2022 1: 43 PM EST Last Filed Vital Signs Vital Sign Reading [...] Mass Index 24.17 10/07/2024 10:00 AM EDT Plan of Treatment Health Maintenance Due Date Last Done Comments [facility]-Medicare Annual Wellness (AWV) 1960 [facility]-Infant/Child/Adol SDOH Screenings 1960 Diabetes: Dental Exam 1968 CT Colonography 08/16/2003 Colonoscopy 08/16/2003 FIT-DNA 08/16/2003 FIT 08/16/2003 FOBT 08/16/2003 Sigmoidoscopy 08/16/2003 [facility]-Colorectal Cancer Screening 08/16/2003 [facility]-Zoster Vaccines (1 of 2) 2008 [facility]-Hepatitis A Vaccines (3 of 3 - Hep A Twinrix risk 3-dose series) 08/22/2014 03/24/2014, 02/10/2014 [facility]-Depression Screening 09/14/2023 09/13/2022 [id number] Vaccine ( season) 2023 01/03/2022, 04/07/2021, 07/23/2020, Additional history exists [facility]-Influenza Vaccine (#1) 11/18/202412/28, 01/09/2023, 12/17/2021, Additional history exists [facility]-Diabetes: Hemoglobin A1C 03/30/2025, 08/05/2023, 04/14/2023, Additional history exists [facility]- SDOH Screenings 04/04/2025 [facility]-Adult SDOH Screenings 04/04/2025 10/02/2024 [facility]-DTaP,Tdap,and Td Vaccines (2 - Td or Tdap) 12/05/2026 12/05/2016, 12/18/2007 [facility]-Pneumococcal Vaccine: 50+ Years Completed 02/04/2022, 02/04/2021, 12/28/2018, Additional history exists [facility]-RSV Vaccine: 60+ Years or Completed 01/16/2024 HPV Vaccines Aged Out No longer eligi ble based on patient's age to complete this topic [facility]-HIB Vaccines Aged Out No longer e ligible based on patient's age to complete this topic [facility]-IPV Vaccines Aged Out No longer e ligible based on patient's age to complete this topic [facility]-Rotavirus Vaccines Aged Out No lo nger eligible based on patient's age to complete this topic Medical Devices Implanted Type Area Top And Trim Worker Device Identifier Shelf Expiration Date Model / Serial / Lot Graft Flixene Grd Wall Gds [id number] - [id number] - [id number] Implanted:Qty: 1 on 07/27/2022 by Aravind Gomez MD at [facility] Graft Right: Arm [id number] 02/02/2025 [id number] / [id number] / Stent Endoprosthesis Viabahn 8fr [id number] - [id number] Implanted:Qty: 1 on 10/07/2021 by Deven Roldan MD at [facility] [id number] 06/05/2024 [id number] / [id number] / [id number] Procedures Procedure Name Priority Date/Time Associated Diagnosis Comments HEMODIALYSIS INPATIENT Routine 10/21/2024 11:17 AM EDT ESRD (end stage renal disease) on dialysis ([facility]) POCT GLUCOSE METER UNSOLICITED [...] ESRD (end stage renal disease) on dialysis ([facility]) POCT GLUCOSE METER UNSOLICITED [...] ESRD (end stage renal disease) on dialysis ([facility]) HEMODIALYSIS INPATIENT Routine 10/16/2024 8:41 AM EDT ESRD (end stage renal disease) on dialysis ([facility]) POCT GLUCOSE METER UNSOLICITED [...] ESRD (end stage renal disease) on dialysis ([facility]) POCT GLUCOSE METER UNSOLICITED [...] ESRD (end stage renal disease) on dialysis ([facility]) POCT GLUCOSE METER UNSOLICITED [...] ESRD (end stage renal disease) on dialysis ([facility]) POCT GLUCOSE METER UNSOLICITED [...] ESRD (end stage renal disease) on dialysis ([facility]) POCT GLUCOSE METER UNSOLICITED [...] 25 HYDROXY Routine 10/02/2024 5:36 AM EDT MAGNESIUM, PLASMA Routine 10/02/2024 5:3 6 AM EDT FERRITIN, SERUM Routine 10/02/2024 5:36 AM EDT RENAL FUNCTION PANEL, PLASMA Routine 10/02/2024 5:36 AM EDT CBC WITH AUTO DIFFERENTIAL Routine 10/02/2024 5:36 AM EDT MULTI DRUG [...] UNSOLICITED RESULTS Routine 09/30/2024 8:49 PM EDT HEMOGLOBIN A1C Add-On 09/30/2024 4:50 PM EDT IRON & TOTAL IRON BINDING CAPACITY, PLASMA (INCLUDES TRANSFERRIN) Add-On 09/30/2024 4:50 PM EDT TSH REFLEX FT4 Add-On 09/30/2024 4:50 PM EDT C-REACTIVE PROTEIN, PLASMA STAT 09/30/2024 4:50 PM EDT PHOSPHORUS, PLASMA STAT 09/30/2024 4: 50 PM EDT MAGNESIUM, PLASMA STAT 09/30/2024 4:5 0 PM EDT COMPREHENSIVE METABOLIC PANEL, PLASMA STAT 09/30/2024 4:50 PM EDT CBC WITH AUTO DIFFERENTIAL STAT 09/30/2024 4:50 PM EDT ECG ADULT STAT 09/30/2024 4:09 PM EDT from Last 3 Months Results * Hemodialysis inpatient 3 hr (180 [...] Kidney Disease - Hyperphosphatemia/ CKD-MBD - ESRD Donny Tovar MD DIALYSIS ORDERABLES Final Res ult * (ABNORMAL) POCT glucose meter (10/21/2024 9:15 AM EDT) Only the most recent of86 resultswithin the time period is included. Pathologist [facility] POCT Glucose 116(H) 74 - 99 mg/dL 10/21/2024 9:17 AM EDT [facility] Comment:Accuracy of a [...] Comment 10/21/2024 9:17 AM EDT HEALTHCARE LAB Main Line Station Engineer ID Jane Dill 10/21/2024 9:17 AM EDT HEALTHCARE LAB Device ID [id number] 10/21/2024 9:17 AM EDT [facility] Specimen Type POC Capillary 10/21/2024 9:17 AM EDT [facility] Blood Capillary blood specimen / Unknown 10/21/2024 9:15 AM EDT 10/21/2024 9:17 AM EDT Result [facility] Jeannie Valle MD LAB POINT OF CARE TE ST DOCKED DEVICE UNSOLICITED RESULTS Final Result Performing Organization Address City/[facility]/ZIP Co de Phone Number [facility] [address] [place] [address] * Hepatitis B Core Total Antibody IgG,IgM (10/17/2024 2:31 PM EDT) [facility] Hepatitis B Core Total Antibody IgG,IgM Negative Negative 10/17/2024 5:01 PM EDT [facility] Blood Venous blood specimen / Unknown Venipuncture / Unknown 10/17/2024 2:31 PM EDT 10/17/2024 2:35 PM EDT Jeannie Valle MD LAB BLOOD ORDERABLES Final Res ult [facility] [address] [place] [address] * XR Chest 1 View (10/17/2024 2:11 [...] Fortunato Willett MD on 10/17/2024 2:49 PM us Jeannie Valle MD IMG XR PROCEDURES Final Result * XR Abdomen 1 View (10/15/2024 9:40 [...] on 10/15/2024 9:58 PM us Lala Valdes PLACEMENT SPECIALIST IMG XR PROCEDURES Final Resul t * (ABNORMAL) Hemoglobin and Hematocrit, Blood (10/09/2024 3:45 PM EDT) HGB 8.2(L) 13.7 - 17.5 g/dL LAB HEMATOLOGY METHOD 10/09/2024 3:54 PM EDT [email or web address] HCT 23.7(L) 40.0 - 51.0 % LAB HEMATOLOGY METHOD 10/09/2024 3:54 PM EDT [email or web address] Blood Arterial blood specimen / Unknown Arterial Puncture / Unknown 10/09/2024 3:45 PM EDT 10/09/2024 3:52 PM EDT Daphne Landry PLACEMENT SPECIALIST, DNP LAB BLOOD ORDERABLES Selene l Result Performing Organization Address City/[facility] Co de Phone Number [facility] [address] [place] [address] * (ABNORMAL) Magnesium, Plasma (10/07/2024 2:48 AM EDT) Only the most recent of6 resultswithin the time period is included. Magnesium, Plasma 1.6(L) 1.9 - 2.4 mg/dL 10/07/2024 3:28 AM EDT [facility] Blood Venous blood specimen / Unknown Venipuncture / Unknown 10/07/2024 2:48 AM EDT 10/07/2024 2:58 AM EDT Leda Zeng MD LAB BLOOD ORDERA BLES Final Result Performing Organization Address City/[facility] Co de Phone Number [facility] [address] [place] [address] * (ABNORMAL) Renal Function Panel, Plasma (10/07/2024 2:48 AM EDT) Only the most recent of5 resultswithin the time period is included. Glucose, Plasma 96 74 - 99 mg/dL 10/07/2024 3:28 AM EDT [facility] BUN, Plasma 41(H) 8 - 23 mg/dL 10/07/2024 3:28 AM EDT [facility] Creatinine, Plasma 6.91(H) 0.70 - 1.20 mg/dL 10/07/2024 3:28 AM EDT [facility] BUN/Creatinine Ratio 6 10/07/2024 3:28 AM EDT [facility] Sodium, Plasma 125(L) 136 - 145 mmol/L 10/07/2024 3:28 AM EDT [facility] [facility] Potassium, Plasma 4.1 3.6 - 4.9 mmol/L 10/07/2024 3:28 AM EDT [facility] Chloride, Plasma 92(L) 97 - 107 mmol/L 10/07/2024 3:28 AM EDT [facility] CO2, Plasma 23 22 - 29 mmol/L 10/07/2024 3:28 AM EDT [facility] Anion Gap 10 6 - 16 mmol/L 10/07/2024 3:28 AM EDT [facility] Total Calcium, Plasma 7.2(L) 8.9 - 10.2 mg/dL 10/07/2024 3:28 AM EDT [facility] Phosphorus, Plasma 4.2 2.5 - 4.5 mg/dL 10/07/2024 3:28 AM EDT [facility] Albumin, Plasma 3.1(L) 3.5 - 5.2 g/dL 10/07/2024 3:28 AM EDT [facility] eGFRcr 8.2 mL/min/1.7 3m*2 10/07/2024 3:28 AM EDT [facility] Comment:Reported eGFRcr in m L/min/1.73m2 is based the CKD-EPI 2020 equation that does not use a race coefficient. Blood Venous blood specimen / Unknown Venipuncture / Unknown 10/07/2024 2:48 AM EDT 10/07/2024 2:58 AM EDT Leda Zeng MD LAB BLOOD ORDERA BLES Final Result [facility] [address] [place], [place] [id number] * PTH, intact (10/02/2024 9:58 AM EDT) Pathologist [facility] PTH Intact Total 9 9 - 77 pg/mL 10/02/2024 2:50 PM EDT [facility] Blood Venous blood specimen / Unknown Venipuncture / Unknown 10/02/2024 9:58 AM EDT 10/02/2024 11:19 AM EDT Narrative [facility] - 10/02/2024 2:50 PM EDT Assay performed by immunoassay at the [facility]. Performed on [employer] chemiluminescent immunoassay, tractable to the World Health Organization's first international standard for PTH from the NIBS, Code 79/500. Results obtained from different test methods or kits cannot be used interchangeably. us Leda Zeng MD LAB BLOOD ORDERA BLES Final Result Performing Organization Address [facility] Co de Phone Number [facility] [address] [place] [address] * Hepatitis C Virus (HCV) Quantitative PCR (10/02/2024 7:51 AM EDT) [facility] Hepatitis C Virus (HCV) Quantitative Interpretation Not Detected Not Detected. 10/04/2024 2:[address] [facility] Blood Venous blood specimen / Unknown Venipuncture / Unknown 10/02/2024 7:51 AM EDT 10/02/2024 8:36 AM EDT Narrative [facility] - 10/04/2024 2:37 PM EDT The [employer] M2000 HCV test is a Real Time [...] FDA approved for clinical use. Daphne Landry APRN, DNP LAB BLOOD ORDERABLES Selene l Result Performing Organization Address [facility] Co de Phone Number [facility] [address] [place] [address] * (ABNORMAL) Hepatitis B Surface Antibody, Quantitative (10/02/2024 7:51 AM EDT) [facility] Hepatitis B Surface Antibody, Quantitative 62.12(H) NonReacti ve: <8, Grayzone: 8 - <12, Reactive: >= 12 mIU/mL 10/02/2024 12:[address] [facility] Comment: Reactive. Individual is considered immune to HBV infection. Blood Venous blood specimen / Unknown Venipuncture / Unknown 10/02/2024 7:51 AM EDT 10/02/2024 8:35 AM EDT us Daphne Landry PLACEMENT SPECIALIST, DNP LAB BLOOD ORDERABLES Selene l Result Performing Organization Address [facility] Co de Phone Number [facility] [address] [place] [address] * (ABNORMAL) Hepatitis panel, acute (10/02/2024 7:51 AM EDT) Hepatitis B Surf Antigen Negative Negative 10/02/2024 3:10 PM EDT [facility] Hepatitis C Antibody Positive(A) Negative 10/02/2024 3:10 PM EDT [facility] Comment:This specimen is jamey ng sent for confirmation by RT-PCR. Hepatitis A Antibody IgM Negative Negative 10/02/2024 3:10 PM EDT [facility] Hepatitis B Core Antibody IgM Negative Negative 10/02/2024 3:10 PM EDT [facility] Blood Venous blood specimen / Unknown Venipuncture / Unknown 10/02/2024 7:51 AM EDT 10/02/2024 8:36 AM EDT us Daphne Landry PLACEMENT SPECIALIST, DNP LAB BLOOD ORDERABLES Selene l Result Performing Organization Address City/[facility] Co de Phone Number [facility] [address] [place] [address] * Vitamin D 25 Hydroxy (10/02/2024 5:36 AM EDT) Vitamin D 25 Hydroxy 33.5 20.0 - 80.0 ng/mL 10/02/2024 9:56 AM EDT [facility] Blood Venous blood specimen / Unknown Venipuncture / Unknown 10/02/2024 5:36 AM EDT 10/02/2024 5:42 AM EDT Narrative [facility] - 10/02/2024 9:56 AM EDT Testing performed on [employer], standardized against NIST SRM [id number]. When [...] to 80 ng/mL Possible toxicity: >100 ng/mL us Lala Valdes PLACEMENT SPECIALIST LAB BLOOD ORDERABLES Final Re sult [facility] [address] [place] [address] * (ABNORMAL) CBC and Differential (10/02/2024 5:36 AM EDT) Only the most recent of2 resultswithin the time period is included. WBC Count 7.44 3.70 - 10.30 10*3/uL LAB HEMATOLOGY METHOD 10/02/2024 5:44 AM EDT [facility] RBC Count 3.30(L) 4.60 - 6.10 10*6/uL LAB HEMATOLOGY METHOD 10/02/2024 5:44 AM EDT [facility] HGB 10.4(L) 13.7 - 17.5 g/dL LAB HEMATOLOGY METHOD 10/02/2024 5:44 AM EDT [facility] HCT 29.8(L) 40.0 - 51.0 % LAB HEMATOLOGY METHOD 10/02/2024 5:44 AM EDT [facility] Platelet Count 119(L) 155 - 369 10*3/uL LAB HEMATOLOGY METHOD 10/02/2024 5:44 AM EDT [facility] MCV 90 79 - 98 fL LAB HEMATOLOGY METHOD 10/02/2024 5:44 AM EDT [facility] MCH 31.5 26.0 - 32.0 pg LAB HEMATOLOGY METHOD 10/02/2024 5:44 AM EDT [facility] MCHC 34.9 30.7 - 35.5 g/dL LAB HEMATOLOGY METHOD 10/02/2024 5:44 AM EDT [facility] RDW 12.5 11.5 - 14.5 % LAB HEMATOLOGY METHOD 10/02/2024 5:44 AM EDT [facility] MPV 9.5 8.8 - 12.5 fL LAB HEMATOLOGY METHOD 10/02/2024 5:44 AM EDT [facility] nRBC 0.0 <=0.0 per 100 WBCs LAB HEMATOLOGY METHOD 10/02/2024 5:44 AM EDT [facility] Differential Type Automated LAB HEMATOLOGY METHOD 10/02/2024 5:44 AM EDT [facility] Neutrophils % 59 % LAB HEMATOLOGY METHOD 10/02/2024 5:44 AM EDT [facility] Lymphocytes % 28 % LAB HEMATOLOGY METHOD 10/02/2024 5:44 AM EDT [facility] Monocytes % 7 % LAB HEMATOLOGY METHOD 10/02/2024 5:44 AM EDT [facility] Eosinophils % 4 % LAB HEMATOLOGY METHOD 10/02/2024 5:44 AM EDT [facility] Basophils % 1 % LAB HEMATOLOGY METHOD 10/02/2024 5:44 AM EDT [facility] Immature Granulocytes % 1 % LAB HEMATOLOGY METHOD 10/02/2024 5:44 AM EDT [facility] Neutrophils Absolute 4.44 1.60 - 6.10 10*3/uL LAB HEMATOLOGY METHOD 10/02/2024 5:44 AM EDT [facility] Lymphocytes Absolute 2.10 1.20 - 3.90 10*3/uL LAB HEMATOLOGY METHOD 10/02/2024 5:44 AM EDT [facility] Monocytes Absolute 0.53 0.30 - 0.90 10*3/uL LAB HEMATOLOGY METHOD 10/02/2024 5:44 AM EDT [facility] Eosinophils Absolute 0.26 0.00 - 0.50 10*3/uL LAB HEMATOLOGY METHOD 10/02/2024 5:44 AM EDT [facility] Basophils Absolute 0.06 0.00 - 0.10 10*3/uL LAB HEMATOLOGY METHOD 10/02/2024 5:44 AM EDT [facility] Immature Granulocytes Absolute 0.05 0.00 - 0.06 10*3/uL LAB HEMATOLOGY METHOD 10/02/2024 5:44 AM EDT [facility] Blood Venous blood specimen / Unknown Venipuncture / Unknown 10/02/2024 5:36 AM EDT 10/02/2024 5:42 AM EDT [facility] - 10/02/2024 5:44 AM EDT Therapeutic decision making should be based on absolute values, rather than percentages. us Lala Valdes PLACEMENT SPECIALIST LAB BLOOD ORDERABLES Final Re sult [facility] [address] [place] [id number] * (ABNORMAL) Ferritin, Serum (10/02/2024 5:36 AM EDT) Ferritin, Serum 1,701(H) 20 - 400 ng/mL 10/02/2024 8:[address] [facility] Blood Venous blood specimen / Unknown Venipuncture / Unknown 10/02/2024 5:36 AM EDT 10/02/2024 5:42 AM EDT Lala Valdes APRN LAB BLOOD ORDERABLES Final Re sult Performing Organization Address [facility]/ZIP Co de Phone Number [facility] [address] [place] [address] * Multi Drug Resistance Test (10/01/2024 9:04 PM EDT) Pathologist [facility] Culture No growth at day 1 10/03/2024 5:[address] [facility] Swab (Nares and Sydni Rectal) Non-blood Collection / Unknown 10/01/2024 9:04 PM EDT 10/01/2024 9:46 PM EDT Narrative [facility] - 10/03/2024 5:35 AM EDT This test was developed and its performance characteristics determined by the [facility]. Although the media is FDA-approved, it is not FDA-approved for all specimen types submitted. The FDA has determined that such clearance or approval is not necessary. This test is used for surveillance purposes. It should not be regarded as investigational or for research. The [facility] is certified under the Clinical Laboratory Improvement Amendments of 1988 (CLIA-88) as qualified to perform high complexity clinical laboratory testing. Lala Valdes APRN LAB MICROBIOLOGY - GENERAL OR DERABLES Final Result Performing Organization Address [facility]/[place] [address] * TSH Reflex FT4 (09/30/2024 4:50 PM EDT) Thyroid Stimulating Hormone, Plasma 0.91 0.40 - 4.20 uIU/mL 09/30/2024 9:27 PM EDT [facility] Blood Venous blood specimen / Unknown Venipuncture / Unknown 09/30/2024 4:50 PM EDT 09/30/2024 4:53 PM EDT Lala Valdes APRN LAB BLOOD ORDERABLES Final Re sult Performing Organization Address [facility] de Phone Number [facility] [address] [place] [address] * (ABNORMAL) Iron & Total Iron Binding Capacity, Plasma (Includes Transferrin) (09/30/2024 4:50 PM EDT) Iron, Plasma 66 50 - 170 ug/dL 09/30/2024 11:58 PM EDT [facility] Transferrin, Plasma 117(L) 200 - 360 mg/dL 09/30/2024 11:58 PM EDT [facility] Total Iron Binding Capacity, Plasma 146(L) 240 - 450 ug/mL 09/30/2024 11:58 PM EDT [facility] Transferrin Saturation 45 14 - 50 % 09/30/2024 11:58 PM EDT [facility] Blood Venous blood specimen / Unknown Venipuncture / Unknown 09/30/2024 4:50 PM EDT 09/30/2024 4:53 PM EDT Lala Valdes APRN LAB BLOOD ORDERABLES Final Re sult Performing Organization Address [facility] de Phone Number [facility] [address] [place] [address] * (ABNORMAL) C-Reactive protein (09/30/2024 4:50 PM EDT) CRP, Plasma 16.1(H) <=8.0 mg/L 09/30/2024 5:14 PM EDT [facility] Blood Venous blood specimen / Unknown Venipuncture / Unknown 09/30/2024 4:50 PM EDT 09/30/2024 4:53 PM EDT Narrative [facility] - 09/30/2024 5:14 PM EDT This CRP test is appropriate for assessment of infection, systemic inflammation and/or tissue injury. To assess cardiovascular disease risk order high sensitivity CRP (CRPH). Lesvia Hudson MD LAB BLOOD ORDERABLES Final Re sult Performing Organization Address City/[facility] Co de Phone Number [facility] [address] [place] [address] * Phosphorus (09/30/2024 4:50 PM EDT) Phosphorus, Plasma 3.3 2.5 - 4.5 mg/dL 09/30/2024 5:14 PM EDT [facility] Blood Venous blood specimen / Unknown Venipuncture / Unknown 09/30/2024 4:50 PM EDT 09/30/2024 4:53 PM EDT Lesvia Hudson MD LAB BLOOD ORDERABLES Final Re sult Performing Organization Address [facility] de Phone Number [facility] [address] [place] [address] * (ABNORMAL) Hemoglobin A1c (09/30/2024 4:50 PM EDT) Hemoglobin A1c 6.3(H) <5.7 % 10/01/2024 12:06 PM EDT [facility] Blood Venous blood specimen / Unknown Venipuncture / Unknown 09/30/2024 4:50 PM EDT 09/30/2024 4:54 PM EDT Narrative [facility] - 10/01/2024 12:06 PM EDT HA1C Interpretive Data: Diagnosis of Diabetes: Diabetic > or = 6.5% Pre-diabetic 5.7 to 6.4% Non-diabetic < or = 5.6% Glycemic Targets for Type I and Type II Diabetics: Non- Adults <7.0% Adults <6.0% Children and Adolescents <7.5% Source: [place] [employer]. Standards of medical care in diabetes,2017. Diabetes Care.2017:40 (suppl 1):S1-S135. Lala Valdes APRN LAB BLOOD ORDERABLES Final Re sult [facility] [address] [place] [address] * (ABNORMAL) CMP (09/30/2024 4:50 PM EDT) Glucose, Plasma 185(H) 74 - 99 mg/dL 09/30/2024 5:14 PM EDT [facility] BUN, Plasma 29(H) 8 - 23 mg/dL 09/30/2024 5:14 PM EDT [facility] Creatinine, Plasma 7.58(H) 0.70 - 1.20 mg/dL 09/30/2024 5:14 PM EDT [facility] BUN/Creatinine Ratio 4 09/30/2024 5:14 PM EDT [facility] Sodium, Plasma 131(L) 136 - 145 mmol/L 09/30/2024 5:14 PM EDT [facility] Potassium, Plasma 3.0(L) 3.6 - 4.9 mmol/L 09/30/2024 5:14 PM EDT [facility] Chloride, Plasma 90(L) 97 - 107 mmol/L 09/30/2024 5:14 PM EDT [facility] CO2, Plasma 28 22 - 29 mmol/L 09/30/2024 5:14 PM EDT [facility] Anion Gap 13 6 - 16 mmol/L 09/30/2024 5:14 PM EDT [facility] Total Calcium, Plasma 7.6(L) 8.9 - 10.2 mg/dL 09/30/2024 5:14 PM EDT [facility] Total Protein 7.2 6.3 - 7.9 g/dL 09/30/2024 5:14 PM EDT [facility] Albumin, Plasma 3.7 3.5 - 5.2 g/dL 09/30/2024 5:14 PM EDT [facility] AST, Plasma 13 10 - 50 U/L 09/30/2024 5:14 PM EDT [facility] ALT, Plasma 6(L) 10 - 50 U/L 09/30/2024 5:14 PM EDT [facility] Alkaline Phosphatase, Plasma 42 40 - 115 U/L 09/30/2024 5:14 PM EDT [facility] Total Bilirubin, Plasma 0.6 0.2 - 1.1 mg/dL 09/30/2024 5:14 PM EDT [facility] eGFRcr 7.3 mL/min/1.7 3m*2 09/30/2024 5:14 PM EDT [facility] Comment:Reported eGFRcr in m L/min/1.73m2 is based the CKD-EPI 2020 equation that does not use a race coefficient. Blood Venous blood specimen / Unknown Venipuncture / Unknown 09/30/2024 4:50 PM EDT 09/30/2024 4:53 PM EDT Lesvia Hudson MD LAB BLOOD ORDERABLES Final Re sult [facility] [address] [place] [address] * EKG now - STAT (adult) (09/30/2024 4:09 PM EDT) EKG DIAGNOSIS CLASS Abnormal MUSE ECG Ventricular Rate 70 BPM MUSE ECG Atrial Rate 70 BPM MUSE ECG VA Interval 154 ms MUSE ECG QRSD Interval 106 ms MUSE ECG QT Interval 430 ms MUSE ECG QTC Interval 464 ms MUSE ECG P [place] 69 degrees MUSE ECG R [place] -23 degrees MUSE ECG T Wave [place] 5 degrees MUSE ECG Diagnosis Normal sinus rhythm MUSE ECG Diagnosis Nonspecific T wave abnormality MUSE ECG Diagnosis Abnormal ECG MUSE ECG Diagnosis MUSE ECG Diagnosis Confirmed by Sb Cole ([id number]) on 09/30/2024 5:32:21 PM MUSE ECG 09/30/2024 4:09 PM EDT 09/30/2024 5:32 PM EDT Lesvia Hudson MD ECG ORDERABLES Final Result MUSE ECG from Last 3 Months Additional Health Concerns Infection Onset Date Last Indicated 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 No Healthcare Surrogate: Nearest living relative * Full Code Date Activated Date Inactivated Comments 11/29/2022 4:38 PM 12/31/2022 8:14 PM Question Answer Comments Patient has decision-making capacity? No Healthcare Surrogate: Court-appointed guardian * Full Code Date Activated Date Inactivated Comments 08/11/2022 3:03 PM 08/16/2022 5:14 PM Question Answer Comments Patient has decision-making capacity? Yes * Full Code Date Activated Date Inactivated Comments 08/03/2022 10:03 PM 08/09/2022 8:26 PM Question Answer Comments Patient has decision-making capacity? Yes Care Teams Delivery Professional Relationship Specialty Start Date End Date Leonard Botello MD [address] [address] PCP - General Family Medicine 3/22/23
--- OUTSIDE RECORDS SUMMARY | 2024-10-29 10:19 | XMS_ITS | Encounter Summary ---
Author Organization Healthcare Address [address] [place] [address] Care Team Providers Care Medical Reviewer Name Role Phone Pcp, No Primary Care Provider UnavailRanjana Castellanos V BELT BUILDER Unavailable UnavailYola Bains Unavailable Unavailable Leonard Botello MD Primary Care Provider Yesenia Morrell V BELT BUILDER Unavailable Unavailable Goldie Alan V BELT BUILDER Unavailable UnavailGoldie Kong V BELT BUILDER Unavailable UnavailRanjana Castellanos V BELT BUILDER Unavailable UnavailMinnie Martinez RN Unavailable Unavailab le Encounter Details Date Type Department Care Team (Late st Contact Info) Description 04/06/2022 Lab Requisition [facility] [address] [place] [address] Ariel Lucas MD [address] [place] [address] End stage renal disease (CMS/HCC) [...] Diagnosis Comments CBC WITH AUTO DIFFERENTIAL Routine 04/06/2022 1:35 PM EST End stage renal disease (CMS/HCC) documented in this encounter Results * (ABNORMAL) CBC and Differential (04/06/2022 1:35 PM EST) WBC Count 6.45 3.70 - 10.30 10*3/uL LAB HEMATOLOGY METHOD 04/06/2022 2:16 PM EST [facility] RBC Count 2.80(L) 4.60 - 6.10 10*6/uL LAB HEMATOLOGY METHOD 04/06/2022 2:16 PM EST [facility] HGB 8.1(L) 13.7 - 17.5 g/dL LAB HEMATOLOGY METHOD 04/06/2022 2:16 PM [facility] HCT 25.4(L) 40.0 - 51.0 % LAB HEMATOLOGY METHOD 04/06/2022 2:16 PM EST [facility] Platelet Count 154(L) 155 - 369 10*3/uL LAB HEMATOLOGY METHOD 04/06/2022 2:16 PM EST [facility] MCV 91 79 - 98 fL LAB HEMATOLOGY METHOD 04/06/2022 2:16 PM EST [facility] MCH 28.9 26.0 - 32.0 pg LAB HEMATOLOGY METHOD 04/06/2022 2:16 PM EST [facility] MCHC 31.9 30.7 - 35.5 g/dL LAB HEMATOLOGY METHOD 04/06/2022 2:16 PM EST [facility] RDW 14.1 11.5 - 14.5 % LAB HEMATOLOGY METHOD 04/06/2022 2:16 PM [facility] MPV 11.1 8.8 - 12.5 fL LAB HEMATOLOGY METHOD 04/06/2022 2:16 PM [facility] nRBC 0.0 <=0.0 per 100 WBCs LAB HEMATOLOGY METHOD 04/06/2022 2:16 PM [facility] Differential Type Automated LAB HEMATOLOGY METHOD 04/06/2022 2:16 PM [facility] Neutrophils % 66.0 % LAB HEMATOLOGY METHOD 04/06/2022 2:16 PM [facility] Lymphocytes % 23.0 % LAB HEMATOLOGY METHOD 04/06/2022 2:16 PM [facility] Monocytes % 5.0 % LAB HEMATOLOGY METHOD 04/06/2022 2:16 PM [facility] Eosinophils % 4.0 % LAB HEMATOLOGY METHOD 04/06/2022 2:16 PM [facility] Basophils % 1.0 % LAB HEMATOLOGY METHOD 04/06/2022 2:16 PM [facility] Immature Granulocytes % 1.0 % LAB HEMATOLOGY METHOD 04/06/2022 2:16 PM [facility] Neutrophils Absolute 4.31 1.60 - 6.10 10*3/uL LAB HEMATOLOGY METHOD 04/06/2022 2:16 PM EST [facility] Lymphocytes Absolute 1.49 1.20 - 3.90 10*3/uL LAB HEMATOLOGY METHOD 04/06/2022 2:16 PM [facility] Monocytes Absolute 0.33 0.30 - 0.90 10*3/uL LAB HEMATOLOGY METHOD 04/06/2022 2:16 PM EST [facility] Eosinophils Absolute 0.26 0.00 - 0.50 10*3/uL LAB HEMATOLOGY METHOD 04/06/2022 2:16 PM EST [facility] Basophils Absolute 0.03 0.00 - 0.10 10*3/uL LAB HEMATOLOGY METHOD 04/06/2022 2:16 PM EST [facility] Immature Granulocytes Absolute 0.03 0.00 - 0.06 10*3/uL LAB HEMATOLOGY METHOD 04/06/2022 2:16 PM EST [facility] Blood Venous blood specimen / Unknown 04/06/2022 1:35 PM EST 04/06/2022 2:05 PM EST Narrative [facility] - 04/06/2022 2:16 PM EST Therapeutic decision making should be based on absolute values, rather than percentages. 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 COVID-19 Rule-Out 04/14/2023 04/14/2023 04/14/2023 8:45 PM EST documented as of this encounter Care Teams Medical Reviewer Relationship Specialty Start Date End Date Pcp, No [address] [place] [address] PCP - General Family Medicine 09/16/21 06/07/22 Leonard Botello MD [address] [facility] [address] [place] [address] PCP - General Family Medicine 06/08/22 Ranjana Elias LPN [employer] [place] [address] TCM Nurse 03/25/22 04/18/22 Yola Ruff [facility] [place] [address] [employer] Dealer Film Maker 04/12/22 05/05/22 Yesenia Morrell LPN [employer] [place] [address] TCM Nurse 07/29/22 08/04/22 Goldie Alan LPN [employer]ED TRANSFORMATION PROGRAM TCM Nurse Internal Medicine 08/10/22 08/11/22 Goldie Alan LPN [employer]ED TRANSFORMATION PROGRAM TCM Nurse Internal Medicine 08/17/22 09/16/22 Ranjana Elias LPN [employer] [address] TCM Nurse 01/13/23 02/08/23 Minnie Penn, RN [facility] Registered Nurse 10/01/24 10/01/24 documented as of this encounter
--- OUTSIDE RECORDS SUMMARY | 2024-10-29 10:19 | XMS_ITS | Encounter Summary ---
Author Organization Healthcare Address [address] [place] [address] Care Team Providers Care Co Pilot Name Role Phone Leonard Botello MD Primary Care Provider [phone] Encounter Details Date Type Department Care Team (Latest Contact Info) Description 10/07/2024 Travel Social History Tobacco Use Types Packs/Day [...] place to sleep or slept in a nursing home (including now)? No 04/17/2023 Humiliation, Afraid, [...] any time in the past 12 m [facility], were you homeless or living in a nursing home (including now)? No 10/02/2024 CAGE ASSESSMENT [...] drink first t hossein in the morning (EYE-SHELVING SUPERVISOR) to steady your nerves or to [...] Date of Assessment Author No Risk Indicated 10/07/2024 8:00 PM EDT Nano Newman RN * Question Answer Date of Assessment Author 1. Wish to be (Past 1 Month) No 025 8:00 PM GISSELT Nano Chau RN 2. Non-Specific Active Suici taylor Thoughts (Past 1 Month) No 10/07/2024 8:00 PM EDT Alvino Chau RN 3. Active Suicidal Ideation with any Methods (Not Plan) Without Intent to Act (Past 1 Month) No 10/07/2024 8:00 PM GISSELT Nano Chau, TRISTIN 4. Active Suicidal Ideation with Some Intent to Act, Without Specific Plan (Past 1 Month) No 10/07/2024 8:00 PM GISSELT Nano Chau, RN 5. Active Suicidal Ideation with Specific Plan and Intent (Past 1 Month) No 10/07/2024 8:00 PM EDT Nano Cahu TRISTIN 6. Suicidal Behavior (Lifetime) No 5 8:00 PM EDT Nano Chau RN documented as of this encounter Mental [...] documented as of this encounter Care Teams Co Pilot Relationship Specialty Start Date End Date Leonard Botello MD [address] [id number] PCP - General Family Medicine 06/08/22 documented as of this encounter
--- OUTSIDE RECORDS SUMMARY | 2024-10-29 10:19 | XMS_ITS | Encounter Summary ---
Author Organization Healthcare Address [address] [place] [address] Care Team Providers Care Grinding Room Supervisor Name Role Phone Pcp, No Primary Care Provider UnavailUrvashi Morocho BUTADIENE CONVERTOR OPERATOR Unavailable Unavailable Ranjana Elias BUTADIENE CONVERTOR OPERATOR Unavailable Unavailabl Yola Wheatley Unavailable Unavailable Leonard Botello MD Primary Care Provider [phone] Yesenia Morrell BUTADIENE CONVERTOR OPERATOR Unavailable Unavailable PlanGoldie gtz N BUTADIENE CONVERTOR OPERATOR Unavailable Unavailabl Goldie Mccauley BUTADIENE CONVERTOR OPERATOR Unavailable Unavailabl Ranjana Billy BUTADIENE CONVERTOR OPERATOR Unavailable UnavailMinnie Martinez RN Unavailable Unavailab le Encounter Details Date Type Department Care Team (Late st Contact Info) Description 07/29/2020 [facility] Historical OTTR [address] [place] [address] Rose Vázquez, COIL CONNECTOR REPAIRER [address] [facility] [address] [place] [address] Social History Tobacco Use Types [...] Notes * Progress Notes - Rose Vázquez, OPTICAL LABORATORY MANAGER - 07/29/2020 3:29 PM EDT ICE: 59 yo CM w/ ESRD 2/2 DM/ HTN, began HD maybe in 2015 PMH: End-stage renal disease Diabetes mellitus Hypertension Cognitive developmental delay Congestive heart failure Hepatitis-C History of COVID pneumonia Neuropathy PSH: Left AV fistula Bilateral TMA Ear surgery Family history: unknown Social history: He is single, lives in a family intermediate with a paid caregiver. 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 When I asked him what he understands [...] Caregiver reports he can get agitated easily. documented in this encounter Plan of Treatment [...] documented as of this encounter Care Teams Grinding Room Supervisor Relationship Specialty Start Date End Date Pcp, No [address] [place] [address] PCP - General Family Medicine 09/16/21 06/07/22 Leonard Botello MD [address] [facility] [address] [place] [phone] PCP - General Family Medicine 06/08/22 Urvashi Del Cid LPN [employer] [place] [address] TCM Nurse 09/30/21 10/29/21 Ranjana Elias LPN [employer] [place] [address] TCM Nurse 03/25/22 04/18/22 [place] [address] Media Planner Cattle Sprayer 04/12/22 05/05/22 Yesenia Morrell LPN VAL[employer] [place] [address] TCM Nurse 07/29/22 08/04/22 Goldie Alan LPN VALUE-BASED TRANSFORMATION PROGRAM TCM Nurse Internal Medicine 08/10/22 08/11/22 Goldie Alan LPN VALUE-BASED TRANSFORMATION PROGRAM TCM Nurse Internal Medicine 08/17/22 09/16/22 Ranjana Elias LPN VALUE-[employer]ED [place] [address] TCM Nurse 01/13/23 02/08/23 Minnie Penn, RN [facility] INTERVENTIONAL RADIOLOGY Registered Nurse 10/01/24 10/01/24 documented as of this encounter
--- OUTSIDE RECORDS SUMMARY | 2024-10-29 10:21 | XMS_ITS | Encounter Summary ---
Author Organization Healthcare Address [address] [place] [address] Care Team Providers Care Car Audio Installer Name Role Phone Leonard Botello MD Primary Care Provider [phone] Encounter Details Date Type Department Care Team (Latest Contact Info) Description 10/18/2024 Travel Social History Tobacco Use Types Packs/Day [...] place to sleep or slept in a [facility] (including now)? No 04/17/2023 Humiliation, Afraid, Rape, [...] any time in the past 12 m [facility], were you homeless or living in a usp (including now)? 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-LAND COMMISSIONER) to steady your nerves or to get [...] Date of Assessment Author No Risk Indicated 10/18/2024 8:00 PM Nelli Redmond RN * Question Answer Date of Assessment Author 1. Wish to be (Past 1 Month) No 025 8:00 PM Nelli Redmond, RN 2. Non-Specific Active Suici taylor Thoughts (Past 1 Month) No 10/18/2024 8:00 PM Nelli Redmond, RN 3. Active Suicidal Ideation with any Methods (Not Plan) Without Intent to Act (Past 1 Month) No 10/18/2024 8:00 PM Karime Redmond, TRISTIN 4. Active Suicidal Ideation with Some Intent to Act, Without Specific Plan (Past 1 Month) No 10/18/2024 8:00 PM Karime Redmond, RN 5. Active Suicidal Ideation with Specific Plan and Intent (Past 1 Month) No 10/18/2024 8:00 PM Nelli Redmond, RN 6. Suicidal Behavior (Lifetime) No 8:00 PM EDT Nelli Mayberry RN documented as of this encounter Mental [...] documented as of this encounter Care Teams Car Audio Installer Relationship Specialty Start Date End Date Leonard Botello MD [address] [place] [address] [phone] PCP - General Family Medicine 06/08/22 documented as of this encounter
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
--- OUTSIDE RECORDS SUMMARY | 2024-10-29 10:21 | XMS_ITS | Encounter Summary ---
Author Organization Healthcare Address [address] [place] [address] Care Team Providers Care Manager Reading Name Role Phone Leonard Botello MD Primary Care Provider [phone] Encounter Details Date Type Department Care Team (Latest Contact Info) Description 10/16/2024 Travel Social History Tobacco Use Types Packs/Day [...] drink first t hossein in the morning (EYE-PIT SHOVELER) to steady your nerves or to get [...] documented as of this encounter Care Teams Manager Reading Relationship Specialty Start Date End Date Leonard Botello MD [address] [phone] PCP - General Family Medicine 06/08/22 documented as of this encounter
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
[2024-10-29 10:48] LABS: Hemoglobin 5.6 g/dL (14.1-18.0)
== END 2024-10-29 23:59 | disposition home or self-care (01) ==
LOC: LAB.DROPOF 10:08
PROVIDERS: PCP Internal Medicine Adolescent Medicine; Visit Provider Nurse Practitioner Family
DX: N18.6 End stage renal disease (principal)
CPT/HCPCS: 85018

== ENCOUNTER 2024-10-29 12:27 | Emergency (ER) | payer MEDICARE, MEDICAID, SELFPAY ==
--- OUTSIDE RECORDS SUMMARY | 2024-09-30 15:29 | XMS_ITS | Encounter Summary ---
Author Organization Healthcare Address [address] [place] [address] Care Team Providers Care Braiding Operator Name Role Phone Leonard Botello MD Primary Care Provider [phone] Minnie Penn RN Unavailable Unavailab le Reason for Visit * Reason Comments Medical Evaluation * Auth/Cert (Routine) Specialty Diagnoses / Procedures Referred By Contac t Referred To Contact Diagnoses ESRD (end stage renal disease) ([facility]) Noncompliance by refusing service Tana Wooten MD [address] [place] [address] Phone: tel: fax: [facility] [address] [place] [address] Phone: tel: Referral ID Status Reason Start Date Expiration Date Visits Re quested Visits Authorized [id number] 1 1 Encounter Details Date Type Department Care Team (Latest Contact Info) Description 09/30/2024 3:29 PM EDT - 10/21/2024 3:10 PM EDT Hospital Encounter [facility] [address] [place] [address] Lesvia Adrian MD [address] [place] [address] Tana Wooten MD [address] [place] [address] Leda Gaitan MD [address] [place] [address] Lamont Brumfield MD [address] [place] [address] Jeannei Valle MD [address] [place] [address] ESRD (end stage renal disease) ([facility]) (Primary Dx); Noncompliance by refusing service; ESRD (end stage renal disease) on dialysis ([facility]); Declining functional status Discharge Disposition: [facility] Facility Social History Tobacco Use Types Packs/Day Years Used Date Smoking Tobacco: Never Smokeless Tobacco: Never Alcohol Use Standard Drinks/Week Comments Not Currently 0 (1 standard drink = 0.6 oz pur e alcohol) PHQ-2 Answer Date Recorded Patient Health Questionnaire-2 Score 0 09/13/2022 Housing Stability Vital Sign Answer Grover e Recorded In the last 12 months, was t here a time when you were not able to pay the mortgage or rent on time? No 04/17/2023 In the last 12 months, how many places have you lived? 1 04/17/2023 In the last 12 months, was t here a time when you did not have a steady place to sleep or slept in a assisted (including now)? No 04/17/2023 Humiliation, Afraid, Rape, and Kick questionnair e Answer Date Recorded Within the last year, have y ou been afraid of your partner or ex-partner? No 10/02/2024 Within the last year, have y ou been humiliated or emotionally abused in other ways by your partner or ex-partner? No Within the last year, have y ou been kicked, hit, slapped, or otherwise physically hurt by your partner or ex-partner? No 10/02/2024 Within the last year, have y ou been raped or forced to have any kind of sexual activity by your partner or ex-partner? No 10/02/2024 Hunger Vital Sign Answer Date Recorded Within the past 12 months, y ou worried that your food would run out before you got the money to buy more. Never true 10/03/19 25 Within the past 12 months, t he food you bought just didn't last and you didn't have money to get more. Never true 10/02/2024 PRAPARE - Transportation Answer Date Re corded In the past 12 months, has l ack of transportation kept you from medical appointments or from getting medications? No 09/17 In the past 12 months, has l ack of transportation kept you from meetings, work, or from getting things needed for daily living? No 10/02/2024 Housing Stability Vital Sign Answer Grover e Recorded In the last 12 months, was t here a time when you were not able to pay the mortgage or rent on time? No 10/02/2024 Number of Times Moved in the Last Year Not on fi le 10/02/2024 At any time in the past 12 m [facility], were you homeless or living in a assisted (including now)? No 10/02/2024 CAGE ASSESSMENT Answer Date Recorded Cage unable to access Not on file 06/25/2023 Cage max number of drinks Not on file 2023 Cage Beverages a week Not on file 06/25/2023 Have you ever felt you should CUT down on your d rinking? 0 06/25/2023 Have you been ANNOYED by people criticizing your drinking? 0 06/25/2023 Have you felt GUILTY about your drinking? 0 06/25/2023 Have you had a drink first t hossein in the morning (EYE-EMS COORDINATOR) to steady your nerves or to get rid of a hangover? 0 06/25/2023 CAGE Questionnaire Score 0 024 Utilities Answer Date Recorded In the past 12 months has th e electric, gas, oil, or water company threatened to shut off services in your home? No 10/02/2024 PHQ-2A Answer Date Recorded Patient Health Questionnaire-2 Score 0 09/13/2022 Sex and Gender Information Value Date Recorded Sex Assigned at Male 03/02/2022 1:43 PM EST Legal Sex Male 8:21 PM EDT Gender Identity Male 03/02/2022 1:43 PM EST Sexual Orientation Straight 03/02/2022 1: 43 PM EST documented as of this encounter Last Filed Vital Signs Vital Sign Reading Time Taken Comments Blood Pressure 136/45 10/21/2024 1:40 PM EDT Pulse 76 10/21/2024 1:40 PM EDT Temperature 36.3 C (97.3 F) 10/21/2024 1:40 PM EDT Respiratory Rate 16 10/21/2024 12:42 PM EDT Oxygen Saturation 94% 10/21/2024 1:40 PM EDT Inhaled Oxygen Concentration - - Weight 76.4 kg (168 lb 6.9 oz) 10/21/2024 1:38 P M EDT Height 177.8 cm (5' 10 ) 10/07/2024 10:00 AM EDT Body Mass Index 24.17 10/07/2024 10:00 AM EDT documented in this encounter Functional Status * Are you deaf or do you have serious difficulty hearing? Answer Date of Assessment Author No 09/29/2021 3:17 PM EDT Mario Kim A * Are you blind or do you have serious difficulty seeing, even when wearing glasses? Answer Date of Assessment Author Yes 09/29/2021 3:17 PM EDT Mario Kim A * Do you have serious difficulty walking or climbing stairs? Answer Date of Assessment Author Yes 09/29/2021 3:17 PM EDT Mario Kim A * Do you have serious difficulty dressing or bathing? Answer Date of Assessment Author Yes 09/29/2021 3:17 PM EDT Mario Kim A * Because of a physical, mental, or emotional condition, do you have serious difficulty doing errandsalone such as visiting the doctor? Answer Date of Assessment Author Yes 09/29/2021 3:17 PM EDT Mario Kim A * Calculated C-SSRS Risk Score (Lifetime/Recent) Answer Date of Assessment Author Low Risk 10/21/2024 8:29 AM EDT Jose J Dill A * Suicidal Ideation Question Answer Date of Assessment Author 1. Wish to be (Lifetime) Yes 10/20/2024 4:57 PM EDT Maxine Nuñez RN 2. Non-Specific Active Suici taylor Thoughts (Lifetime) No 10/20/2024 4:57 PM EDT Maxine Nuñez RN 3. Active Suicidal Ideation with any Methods (Not Plan) Without Intent to Act (Lifetime) No 10/20/2024 4:57 PM EDT Naeem Nuñez RN 4. Active Suicidal Ideation with Some Intent to Act, Without Specific Plan (Lifetime) No 10/20/2024 4:57 PM EDT Naeem Nuñez RN 5. Active Suicidal Ideation with Specific Plan and Intent (Lifetime) No 10/20/2024 4:57 PM EDT Maxine Nuñez RN * Intensity of Ideation Question Answer Date of Assessment Author Most Severe Ideation Rating (Lifetime) 2 10/20/2024 4:57 PM EDT Maxine Nuñez RN Frequency (Lifetime) 3 10/20/2024 4:57 PM E DT Maxine Nuñez RN Duration (Lifetime) 2 10/20/2024 4:57 PM ED T Maxine Nuñez RN Controllability (Lifetime) 2 10/20/2024 4:5 7 PM EDT Maxine Nuñez RN Deterrents (Lifetime) 3 10/20/2024 4:57 PM EDT Maxine Nuñez RN Reasons for Ideation (Lifetime) 4 4:57 PM EDT Maxine Nuñez RN Most Severe Ideation Rating (Past 1 Month) 2 10/20/2024 4:57 PM EDT Maxine Nuñez RN Frequency (Past 1 Month) 3 10/20/2024 4:57 PM EDT Maxine Nuñez RN Duration (Past 1 Month) 2 10/20/2024 4:57 P M EDT Maxine Nuñez RN Controllability (Past 1 Month) 2 10/20/2024 4:57 PM EDT Maxine Nuñez RN Deterrents (Past 1 Month) 3 10/20/2024 4:57 PM EDT Maxine Nuñez RN Reasons for Ideation (Past 1 Month) 4 10/20/2024 4:57 PM EDT Maxine Nuñez RN * Suicidal Behavior Question Answer Date of Assessment Author Actual Attempt (Lifetime) No 10/20/2024 4:57 PM EDT Maxine Nuñez RN Has subject engaged in non-suicidal self-injurious behavior? (Lifetime) No 10/20/2024 4:57 PM EDT Maxine Nuñez RN Interrupted Attempts (Lifetime) No 4:57 PM EDT Maxine Nuñze RN Aborted or Self-Interrupted Attempt (Lifetime) No 10/20/2024 4:57 PM EDT Maxine Nuñez RN Preparatory Acts or Behavior (Lifetime) No 10/20/2024 4:57 PM EDT Maxine Nuñez RN * Question Answer Date of Assessment Author 1. Wish to be (Past 1 Month) Yes 025 8:29 AM Jane Santillan 2. Non-Specific Active Suici taylor Thoughts (Past 1 Month) No 10/21/2024 8:29 AM Jane Santillan 3. Active Suicidal Ideation with any Methods (Not Plan) Without Intent to Act (Past 1 Month) No 10/21/2024 8:29 AM Jane Santillan 4. Active Suicidal Ideation with Some Intent to Act, Without Specific Plan (Past 1 Month) No 10/21/2024 8:29 AM Jane Santillan 5. Active Suicidal Ideation with Specific Plan and Intent (Past 1 Month) No 10/21/2024 8:29 AM E Jane Ozuna 6. Suicidal Behavior (Lifetime) No 8:29 AM Jane Santillan documented as of this encounter Mental Status * Because of a physical, mental, or emotional condition, do you have serious difficulty concentrating, remembering, or making decisions? (5 years old or older) Answer Entry Date Author Yes 09/29/2021 3:17 PM GISSELT Mario Kim documented in this encounter Medications at Time of Discharge ASPIRIN 81 MG chewable tablet Chew 1 tablet daily. atorvastatin (Lipitor) 40 MG tablet Take 1 tablet by mouth nightly. B complex-vitamin C-folic acid (Nephro-Salvador) 0.8 MG tablet Take 1 tablet by mouth daily. Calcium Carbonate (CALCIUM 600 PO) Take 2 tablets by mouth nightly. carvedilol (Coreg) 12.5 MG tablet Take 1 tablet by mouth daily. clopidogrel (Plavix) 75 MG tablet Take 1 tablet by mouth daily. divalproex sprinkle (Depakote Sprinkles) [address] capsule Take 2 capsules by mouth 2 times a day. melatonin tablet Take 3 tablets by mouth at night as needed for sleep. NIFEdipine XL (Adalat CC) 60 MG 24 hr tablet Take 1 tablet by mouth 1 (one) time each day at the same time. Do not crush, chew, or split. 10/21/2024 11/20/2024 senna (Senokot) 8.6 MG tablet Take 2 tablets by mouth nightly. 10/21/2024 sertraline (Zoloft) 25 MG tablet Take 1 tablet by mouth daily. Take with 50mg tablet for total daily dose of 75mg. sertraline (Zoloft) 50 MG tablet Take 1 tablet by mouth daily. Take with 25mg tablet for total daily dose of 75mg. traZODone (Desyrel) 100 MG tabletIndication s:Primary insomnia Take 1 tablet (100 mg) by mouth every night. 30 tablet 2 01/19/2023 documented as of this encounter Miscellaneous Notes * Care Plan - Fuentes Jane Ellington - 10/21/2024 1:19 PM EDT Problem: Adult Inpatient Plan of Care Goal: Plan of Care Review Outcome: Met Flowsheets (Taken 10/21/20241311) Plan of Care Reviewed With: patient Goal: Patient-Specific Goal (Individualized) Outcome: Met Flowsheets (Taken 10/21/2024 1310) Patient/Family-Specific Goals (Include Timeframe): Pt will remain free from falls throughout shift Individualized Care Needs: safety Goal: Absence of Hospital-Acquired Illness or Injury Outcome: Met Intervention: Identify and Manage Fall Risk Flowsheets (Taken 10/21/2024 1312) Safety Promotion/Fall Prevention: activity supervised assistive device/personal items within reach clutter-free environment maintained fall prevention program maintained Intervention: Prevent Skin Injury Flowsheets (Taken 10/21/2024 131) Body Position: education provided weight shifting Skin Protection: incontinence pads utilized Intervention: Prevent and Manage VTE (Venous Thromboembolism) Risk Flowsheets (Taken 10/21/2024 1312) VTE Prevention/Management: medication Intervention: Prevent Infection Flowsheets (Taken 10/20/2024 1226 by April Merida, RN) Infection Prevention: hand hygiene promoted rest/sleep promoted Goal: Optimal Comfort and Wellbeing Outcome: Met Intervention: Monitor Pain and Promote Comfort Flowsheets (Taken 10/21/20241311) Pain Management Interventions: pain management plan reviewed with patient/caregiver relaxation techniques promoted Intervention: Provide Person-Centered Care Flowsheets (Taken 10/20/2024 1226 by April Merida, RN) Trust Relationship/Rapport: care explained choices provided emotional support provided questions answered questions encouraged Goal: Readiness for Transition of Care Outcome: Met Intervention: Mutually Develop Transition Plan Flowsheets Taken 10/21/20241311 by Jane Dill Current Outpatient/Agency/Support Group: long-term acute care facility Transportation Anticipated: medical transport Transportation Concerns: public transportation, does not know how to access Concerns to be Addressed: no discharge needs identified Patient/Family Anticipated Services at Transition: assisted Patient/Family Anticipates Transition to: long-term care facility Taken 10/21/2024 0914 by Birdie Damico RN Current Discharge Risk: chronically ill cognitively impaired Patient's Choice of Community Agency(s): [facility] Problem: Skin Injury Risk Increased Goal: Skin Health and Integrity Outcome: Met Intervention: Optimize Skin Protection Flowsheets Taken 10/21/20241311 by Jane Dill Activity Management: activity adjusted per tolerance activity encouraged Skin Protection: incontinence pads utilized Taken 10/20/2024 1600 by April Merida, RN Head of Bed (HOB) Positioning: HOB elevated Intervention: Promote and Optimize Oral Intake Flowsheets (Taken 10/21/20241311) Oral Nutrition Promotion: physical activity promoted Nutrition Interventions: frequent small meals provided Problem: Fall Injury Risk Goal: Absence of Fall and Fall-Related Injury Outcome: Met Intervention: Identify and Manage Contributors Flowsheets (Taken 10/21/20241311) Medication Review/Management: medications reviewed Self-Care Promotion: independence encouraged Intervention: Promote Injury-Free Environment Flowsheets (Taken 10/21/20241311) Safety Promotion/Fall Prevention: activity supervised assistive device/personal items within reach clutter-free environment maintained fall prevention program maintained Problem: Wound Goal: Skin Health and Integrity Outcome: Met Intervention: Optimize Skin Protection Flowsheets Taken 10/21/20241311 by Jane Dill Activity Management: activity adjusted per tolerance activity encouraged Taken 10/20/2024 1600 by April Merida, RN Head of Bed (HOB) Positioning: HOB elevated Taken 10/20/2024 1226 by April Merida, RN Skin Protection: frequent weight shift encouraged incontinence pads utilized Goal: Optimal Wound Healing Outcome: Met Intervention: Promote Wound Healing Flowsheets (Taken 10/20/2024 1226 by April Merida, RN) Sleep/Rest Enhancement: awakenings minimized noise level reduced relaxation techniques promoted regular sleep/rest pattern promoted Problem: Hemodialysis Goal: Safe, Effective Therapy Delivery Outcome: Met Goal: Effective Tissue Perfusion Outcome: Met Goal: Absence of Infection Signs and Symptoms Outcome: Met Intervention: Prevent or Manage Infection Flowsheets (Taken 10/20/2024 1226 by April Merida, RN) Infection Management: aseptic technique maintained Fever Reduction/Comfort Measures: lightweight bedding lightweight clothing Infection Prevention: hand hygiene promoted rest/sleep promoted Problem: Self-Care Deficit Goal: Improved Ability to Complete Activities of Daily Living Outcome: Met Problem: Infection Goal: Absence of Infection Signs and Symptoms Outcome: Met Intervention: Prevent or Manage Infection Flowsheets Taken 10/20/20241999 by Deena Lott Isolation Precautions: precautions maintained Taken 10/20/2024 122 by April Merida, RN Infection Management: aseptic technique maintained Fever Reduction/Comfort Measures: lightweight bedding lightweight clothing Problem: Diabetes Goal: Optimal Coping Outcome: Met Intervention: Support Wellbeing and Self-Management Success Flowsheets (Taken 10/20/2024 1226 by April Merida, RN) Supportive Measures: active listening utilized self-care encouraged Family/Support System Care: self-care encouraged Goal: Optimal Functional Ability Outcome: Met Intervention: Optimize Functional Ability Flowsheets (Taken 10/21/2024 1312) Activity Management: activity adjusted per tolerance activity encouraged Self-Care Promotion: independence encouraged Goal: Blood Glucose Level Within Target Range Outcome: Met Intervention: Optimize Glycemic Control Flowsheets (Taken 10/20/2024 1226 by April Merida, RN) Hyperglycemia Management: blood glucose monitored Goal: Minimize Hypoglycemia Risk Outcome: Met Intervention: Minimize and Manage Hypoglycemia Flowsheets (Taken 10/20/2024 1226 by April Merida, RN) Hypoglycemia Management: blood glucose monitored Problem: Mobility Impairment Goal: Optimal Mobility Outcome: Met Intervention: Optimize Mobility Flowsheets Taken 10/21/2024 1312 by Jane Dill Activity Management: activity adjusted per tolerance activity encouraged Taken 10/20/2024 1226 by April Merida, RN Positioning/Transfer Devices: pillows in use Problem: Suicide Risk Goal: Absence of Self-Harm Outcome: Met Intervention: Assess Risk to Self and Maintain Safety Flowsheets Taken 10/21/2024 1312 by Jane Dill Behavior Management: behavioral plan developed Taken 10/20/20241999 by Deena Lott Enhanced Safety Measures: bed alarm set Intervention: Promote Psychosocial Wellbeing Flowsheets (Taken 10/20/2024 1226 by April Merida, RN) Supportive Measures: active listening utilized self-care encouraged Family/Support System Care: self-care encouraged Sleep/Rest Enhancement: awakenings minimized noise level reduced relaxation techniques promoted regular sleep/rest pattern promoted * Nursing Note - Jane Dill - 10/21/2024 12:52 PM EDT Report given to Juana at 12:35 * Procedures - Jerrell Jurado MD - 10/21/2024 11:17 AM EDTAssociated Order(s): HEMODIALYSIS INPATIENT Dialysis Note I have personally seen the patient on dialysis. Tolerating treatment. Visit Vitals BP 120/50 Pulse 62 Temp 36.6 ??C (97.8 ??F) (Oral) Resp 16 Ht 1.778 m (5' 10 ) Wt 76.3 kg (168 lb 3.4 oz) SpO2 94% BMI 24.14 kg/m?? Smoking Status Never BSA 1.94 m?? Lab Results Component Value Date CREATININE 6.91 (H) 10/07/2024 BUN 41 (H) 10/07/2024 NA 125 (L) 10/07/2024 K 4.1 10/07/2024 CL 92 (L) 10/07/2024 CO2 23 10/07/2024 Lab Results Component Value Date WBC 7.44 10/02/2024 HGB 8.2 (L) 10/09/2024 HCT 23.7 (L) 10/09/2024 MCV 90 10/02/2024 PLT 119 (L) 10/02/2024 BFR: 300-400 ml/min DFR: 600-800 ml/min UF: 2L Assessment: - Fluid Overload - Metabolic Acidosis - Anemia in Chronic Kidney Disease - Hyperphosphatemia/ CKD-MBD - ESRD * Discharge Summary - Jeannie Valle MD - 10/21/2024 9:47 AM EDT Images from the original note were not included. Hospitalization Admit Date/Time: 09/30/2024 3:29 PM Admitting Attending: Tana Wooten Discharge Date: 10/21/24 Discharge Attending Physician: Jeannie Valle MD PCP name and Address: Leonard Botello MD [address] [place] [id number] Referring provider name and address: No referring provider defined for this encounter. Chief Concern, Brief History of Present Illness, and Hospital Course Per H and P; 64 y.o. male with past history of ESRD on HD MWF, T2DM, HTN, chronic HFrEF, PAD, HLD, IDD/dementia, depression/anxiety, insomnia, chronic HCV, DM foot ulcer c/b OM s/p bilateral transmetarsal amputation, and debility sent from his [place] [facility] to ED for medical evaluation after refusing care. Patient is extremely [place] and not wearing hearing aids limiting exam, therefore history obtained from chart review and Mariel (#[phone]) at his [place] [facility]. Unable to reach his legal guardian and brother, Chris Fernandez, at #[phone]. She reports that patient transferred a week ago to [place] [facility] after residing in a correction for the past year with an increased level of assist. Since arriving patient has been refusing dialysis, to eat, participate, or take his medications. Earlier todayhe missed HD, last session 3 days ago on 09/27/2024. The [place] [facility] believes he needs a higher level of care given functional decline, thus transferred him to ED for placement. Patient otherwise at baseline without complaint, repetitively asking for a Coke with chicken and dumplings . Afebrile, VSS. Labs pertinent for Cr 7.58, potassium 3.0, magnesium 1.7, sodium 131. EKG no acute ST-T changes. HM at consulted to admit. Surgeries and Procedures Medication List .. aspirin 81 MG chewable tablet Chew 1 tablet daily. atorvastatin 40 MG tablet Commonly known as: Lipitor Take 1 tablet by mouth nightly. B complex-vitamin C-folic acid 0.8 MG tablet Take 1 tablet by mouth daily. CALCIUM 600 PO Take 2 tablets by mouth nightly. carvedilol 12.5 MG tablet Commonly known as: Coreg Take 1 tablet by mouth daily. clopidogrel 75 MG tablet Commonly known as: Plavix Take 1 tablet by mouth daily. Depakote Sprinkles [address] capsule Generic drug: divalproex sprinkle Take 2 capsules by mouth 2 times a day. melatonin tablet Take 3 tablets by mouth at night as needed for sleep. NIFEdipine CC 60 MG 24 hr tablet Commonly known as: Adalat CC Take 1 tablet by mouth 1 (one) time each day at the same time. Do not crush, chew, or split. senna 8.6 MG tablet Commonly known as: Senokot Take 2 tablets by mouth nightly. * sertraline 25 MG tablet Commonly known as: Zoloft Take 1 tablet by mouth daily. Take with 50mg tablet for total daily dose of 75mg. * sertraline 50 MG tablet Commonly known as: Zoloft Take 1 tablet by mouth daily. Take with 25mg tablet for total daily dose of 75mg. traZODone 100 MG tablet Commonly known as: Desyrel Take 1 tablet (100 mg) by mouth every night. * This list has 2 medication(s) that are the same as other medications prescribed for you. Read thedirections carefully, and ask your doctor or other care provider to review them with you. Where to Get Your Medications Information about where to get these medications is not yet available Ask your nurse or doctor about these medications NIFEdipine CC 60 MG 24 hr tablet senna 8.6 MG tablet Discharge Diagnosis Medical Problems Active and Resolved Hospital Problems Hospital ESRD (end stage renal disease) on dialysis ([facility]) Essential (primary) hypertension Type 2 diabetes mellitus with chronic kidney disease on chronic dialysis ([facility]) Wears hearing aid in both ears At high risk for falls Insomnia, unspecified Chronic combined systolic (congestive) and diastolic (congestive) heart failure ([facility]) Dementia ([facility]) Chronic hepatitis C without hepatic coma ([facility]) Arterial insufficiency ([facility]) Gastroesophageal reflux disease without esophagitis Mixed hyperlipidemia Anxiety and depression Mild intellectual disabilities Sensorineural hearing loss, bilateral * (Principal) Declining functional status History of transmetatarsal amputation of foot ([facility]) Electrolyte and fluid disorder Anemia in chronic kidney disease (CODE) Chronic kidney disease-mineral and bone disorder (CKD-MBD) 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 ESRD (end stage renal disease) ([facility]) Aakash Fernandez is a [place] 64 y.o. male with past history of ESRD on HD MWF, T2DM, HTN, chronic HFrEF, PAD, HLD, IDD/dementia, depression/anxiety, insomnia, chronic HCV, DM foot ulcer c/b OM s/p bilateral transmetarsal amputation, and debility sent [place] his [place] [facility] to ED for medical evaluationafter refusing care. Declining functional status - Transferred to [place] [facility] a week ago and since arrival refusing HD, to eat, participate, or take medications - sent to ED for medical evaluation and need for higher level of assist/unable to care for self/non-compliance - afebrile, VSS, no acute complaints PLAN - PT/OT consult re: placement - legal guardian is his brother, Chris Fernandez, #[phone] (not answering calls since patient admission) Essential (primary) hypertension - increased carvedilol to 25 mg twice daily, nifedipine XL 60 mg daily (hold for BP <120/80 on dialysis days) At high risk for falls - wheelchair dependent, fall precautions ESRD (end stage renal disease) on dialysis ([facility]) - HD (MWF) - renally dose meds based on EGFR - strict I/O, daily weight Electrolyte and fluid disorder Hyponatremia Chronic kidney disease-mineral and bone disorder (CKD-MBD) - continue Renvela 800 mg TID with meals Anemia in chronic kidney disease (CODE) - Hgb stable, transfuse to keep >7 Type 2 diabetes mellitus with chronic kidney disease on chronic dialysis ([facility]/HCC) - last A1c 6.3 PLAN - will dc SSI given minimal Insulin need Dementia ([facility]) - Psych recommended; Asenapine 3.8 mg daily restarted (not on formulary his caregiver brought his patches) Mild intellectual disabilities - last neuropsych exam in 2023 found to not have capacity, brother is legal guardian - continue Depakote Sprinkle 250 mg twice daily Anxiety and depression - continue Sertraline 75 mg daily Insomnia, unspecified - continue trazodone 100 mg at bedtime, melatonin 3 mg at bedtime Arterial insufficiency ([facility]/HCC) - continue aspirin 81 mg daily, clopidogrel 75 mg daily Mixed hyperlipidemia - continue atorvastatin 40 mg at bedtime 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 - continue statin, ASA, clopidogrel as above Gastroesophageal reflux disease without esophagitis - continue daily PPI Sensorineural hearing loss, bilateral Wears hearing aid in both ears - not present with patient on admission, have tried to call caregiver to bring them to hospital with no luck Chronic combined systolic (congestive) and diastolic (congestive) heart failure ([facility]) - ECHO 06/27/2022: EF 45%, abnormal diastolic dysfunction - strict I/O, 2 L fluid restriction, cardiac/renal/CCHO2 diet Chronic hepatitis C without hepatic coma ([facility]) - HCV RNA PCR not detected 07/13/2023 History of transmetatarsal amputation of foot ([facility]) - chronic OM 2/2 DM foot ulcers s/p bilateral transmetarsal amputation Dispo : Discharge to [facility] today and transportation to/from [place] to outpatient HD arranged per CM. Getting HD at [facility] today and then start outpatient HD on 10/23. Post Discharge Instructions Outpatient Follow-Up No future appointments. Test Results Pending At Discharge Pertinent Physical Exam At Time of Discharge No new concerns reported by staff. Awaiting placement. Laying on bed comfortably. Shows thumps up on asking if he is doing ok. No new complaints/ poor historian. Not in any distress. Physical Exam Visit Vitals BP 116/57 Pulse 71 Temp 36.9 ??C (98.4 ??F) Resp 16 Constitutional: Appearance: He is normal weight. He is not toxic-appearing. Comments: Minimally verbal HENT: Head: Normocephalic. Eyes: Extraocular Movements: Extraocular movements intact. Cardiovascular: Rate and Rhythm: Normal rate and regular rhythm. Pulmonary: Effort: Pulmonary effort is normal. Breath sounds: Normal breath sounds. Abdominal: General: Abdomen is flat. There is no distension. Musculoskeletal: Cervical back: Normal range of motion and neck supple. Skin: General: Skin is warm. Findings: No lesion. Neurological: Mental Status: He is alert. Psychiatric: Mood and Affect: Affect is flat. Cognition and Memory: Cognition is impaired. Discharge Disposition/Condition Disposition: Nursing facility (specify) Condition: Stable (s/sx potential problems absent or manageable) I spent >30 minutes of patient care and instruction time in preparation for this discharge. * Progress Notes - Birdie Damico RN - 10/21/2024 9:17 AM EDT Case Management Discharge Note Mundo Fernandez 64 y.o. male CSN: [id number] Admission: 09/30/2024 3:29 PM Primary Problem: Declining functional status Primary Lombardi Developer: Primary Caregiver: Private caregiver Assistance Available at Discharge: Current Outpatient/Agency/Support Group: clinic(s), DME Availability of Care Givers (#Hours): 24 hours Family/Lombardi Developer(s) Willingness Assessed to care for patient at home: Yes Family/Lombardi Developer(s) Readiness Assessed to care for patient at home: Yes Housing Circumstances-Z Codes: Housing Circumstances (select all that apply): Low Income (101-300% Federal Poverty Guidlines) - Z596 Patient Referred to Financial or Community Resources: Discharge Facility/Level of Care Needs: Discharge Facility/Level of Care Needs: 3-[facility] Facility Patient's Choice of Community Agency(s): Patient's Choice of Community Agency(s): [facility] Patient/Family Anticipated Services at Transition: Patient/Family Anticipated Services at Transition: assisted DME/Equipment Needed after Discharge: Equipment Currently Used at Home: walker, rolling Equipment Needed After Discharge: wheelchair, manual Readmission Within the Last 30 Days: Readmission Within the Last 30 Days: no previous admission in last 30 days Medicare Documentation: Medicare Second Notice?: Yes Date Second Notice Completed: 10/21/24 Time Second Notice Completed: 847 Medicare Second Notice Recieved By: Verbal with brother and guardian, Chris Fernandez. Follow-up: [facility] [phone] [address] [place] [address] Go on 10/21/2024 [facility] ([id number] D-TI) [phone] Online [address] [place] [address] Go on 10/23/2024 First HD session at 10:20 AM Discharge Transportation: Transportation Anticipated: other (see comments) Transportation Home at Discharge: Other(Comment) Has discharge transport been arranged?: Yes What day is the transport expected?: 10/21/24 What time is the transport expected?: 1400 Follow Up Transport: Transportation Needed to Follow up Appoinments: Medical Transport Additional Comments: Per team MD, patient is medically ready to discharge today. Accepted for LTC by [facility]. Patient brother, legal guardian, Chris Fernandez aware and agrees with discharge and facility. Patient to receive HD (3.5 hr session) today at 0900 before discharge. Beginning Monday10/23/24 patient is scheduled to receive HD at 10:20 every Monday, Monday, and Monday. Facility staff working on setting up transportation to and from HD sessions. Krystyna barrera bedside pick up worker today at 1400. Call report [phone] CM will fax DCS [phone] Escribe controlled meds only to [facility]. CM will continue to follow for dc planning needs. Birdie Damico, TRISTIN * Consults - Gabriele Vanegas - 10/20/2024 5:30 PM EDT Pastoral Care Note Student Advisor visited with Aakash at bedside after consulting with nurse. Aakash's nurse shared he has been down and discouraged with being in the hospital so long. Aakash shared with Student Advisor that he wants to go to another hospital. Aakash has difficulty hearing, Student Advisor was speaking loudly but Aakash respondedwell at first then appeared confused, he pushed call button for nurse. He was able to hear nurse oncall button and the tv but appeared confused or possible scared by Student Advisor. Student Advisor then excused himself, Aakash expressed appreciation. Chaplan will follow up and consult with other Chaplains that have interacted with Aakash recently. Referral From: Nurse Pastoral Care Provided For: Patient Patient Profile: Consult Reasons: Non-urgent referral, Emotional support Spiritual Assessment: Support Systems/ Spiritual Resources: Unknown Spiritual Needs: Emotional support Spiritual Issues: Discouraged, Frustration Interventions: Interventions Provided: Emotional support, Supportive Listening, Consulted with care team Pastoral Care Outcomes: Patient Outcomes: Expresses ongoing struggle * Care Plan - April Merida RN - 10/20/2024 12:30 PM EDT Problem: Adult Inpatient Plan of Care Goal: Plan of Care Review Outcome: Ongoing, Progressing Flowsheets (Taken 10/20/20246) Progress: no change Outcome Evaluation: Patient will have a BM this shift Plan of Care Reviewed With: patient Goal: Patient-Specific Goal (Individualized) Outcome: Ongoing, Progressing Flowsheets (Taken 10/20/2024 08) Patient/Family-Specific Goals (Include Timeframe): Patient will receive wound care as ordered during this shift Individualized Care Needs: wound care Anxieties, Fears or Concerns: none stated Goal: Absence of Hospital-Acquired Illness or Injury Outcome: Ongoing, Progressing Intervention: Identify and Manage Fall Risk Flowsheets (Taken 10/20/2024 08) Safety Promotion/Fall Prevention: activity supervised clutter-free environment maintained fall prevention program maintained safety round/check completed Intervention: Prevent Skin Injury Flowsheets Taken 10/20/2024 1226 Skin Protection: incontinence pads utilized Taken 10/20/2024 08 Body Position: turned Intervention: Prevent and Manage VTE (Venous Thromboembolism) Risk Flowsheets (Taken 10/20/2024 1226) VTE Prevention/Management: medication Intervention: Prevent Infection Flowsheets (Taken 10/20/2024 1226) Infection Prevention: hand hygiene promoted rest/sleep promoted Goal: Optimal Comfort and Wellbeing Outcome: Ongoing, Progressing Intervention: Monitor Pain and Promote Comfort Flowsheets (Taken 10/20/2024 1226) Pain Management Interventions: position adjusted pillow support provided relaxation techniques promoted Intervention: Provide Person-Centered Care Flowsheets (Taken 10/20/2024 1226) Trust Relationship/Rapport: care explained choices provided emotional support provided questions answered questions encouraged Problem: Skin Injury Risk Increased Goal: Skin Health and Integrity Outcome: Ongoing, Progressing Intervention: Optimize Skin Protection Flowsheets Taken 10/20/2024 1226 Pressure Reduction Techniques: frequent weight shift encouraged Skin Protection: incontinence pads utilized Head of Bed (HOB) Positioning: HOB elevated Taken 10/20/2024 0800 Activity Management: activity adjusted per tolerance bedrest Intervention: Promote and Optimize Oral Intake Flowsheets (Taken 10/20/20241225) Oral Nutrition Promotion: physical activity promoted Nutrition Interventions: frequent small meals provided food preferences provided Problem: Fall Injury Risk Goal: Absence of Fall and Fall-Related Injury Outcome: Ongoing, Progressing Intervention: Identify and Manage Contributors Flowsheets (Taken 10/20/20246) Medication Review/Management: medications reviewed Self-Care Promotion: independence encouraged BADL personal objects within reach Intervention: Promote Injury-Free Environment Flowsheets (Taken 10/20/2024 0800) Safety Promotion/Fall Prevention: activity supervised clutter-free environment maintained fall prevention program maintained safety round/check completed Problem: Wound Goal: Skin Health and Integrity Outcome: Ongoing, Progressing Intervention: Optimize Skin Protection Flowsheets Taken 10/20/2024 1226 Pressure Reduction Techniques: frequent weight shift encouraged Skin Protection: frequent weight shift encouraged incontinence pads utilized Head of Bed (HOB) Positioning: HOB elevated Taken 10/20/2024 0800 Activity Management: activity adjusted per tolerance bedrest Goal: Optimal Wound Healing Outcome: Ongoing, Progressing Intervention: Promote Wound Healing Flowsheets (Taken 10/20/2024 1226) Sleep/Rest Enhancement: awakenings minimized noise level reduced relaxation techniques promoted regular sleep/rest pattern promoted Problem: Hemodialysis Goal: Safe, Effective Therapy Delivery Outcome: Ongoing, Progressing Intervention: Optimize Device Care and Function Flowsheets (Taken 10/20/2024 1226) Medication Review/Management: medications reviewed Goal: Effective Tissue Perfusion Outcome: Ongoing, Progressing Intervention: Optimize Blood Flow Flowsheets (Taken 10/20/2024 1226) Stabilization Measures: legs elevated Goal: Absence of Infection Signs and Symptoms Outcome: Ongoing, Progressing Intervention: Prevent or Manage Infection Flowsheets (Taken 10/20/2024 1226) Infection Management: aseptic technique maintained Fever Reduction/Comfort Measures: lightweight bedding lightweight clothing Infection Prevention: hand hygiene promoted rest/sleep promoted Problem: Self-Care Deficit Goal: Improved Ability to Complete Activities of Daily Living Outcome: Ongoing, Progressing Intervention: Promote Activity and Functional [place] Flowsheets (Taken 10/20/2024 1226) Activity Assistance Provided: assistance, 1 person Self-Care Promotion: independence encouraged BADL personal objects within reach Problem: Infection Goal: Absence of Infection Signs and Symptoms Outcome: Ongoing, Progressing Intervention: Prevent or Manage Infection Flowsheets (Taken 10/20/2024 1226) Infection Management: aseptic technique maintained Fever Reduction/Comfort Measures: lightweight bedding lightweight clothing Problem: Diabetes Goal: Optimal Coping Outcome: Ongoing, Progressing Intervention: Support Wellbeing and Self-Management Success Flowsheets (Taken 10/20/2024 1226) Supportive Measures: active listening utilized self-care encouraged Family/Support System Care: self-care encouraged Goal: Optimal Functional Ability Outcome: Ongoing, Progressing Intervention: Optimize Functional Ability Flowsheets Taken 10/20/2024 1226 Activity Assistance Provided: assistance, 1 person Self-Care Promotion: independence encouraged BADL personal objects within reach Taken 10/20/2024 0800 Activity Management: activity adjusted per tolerance bedrest Goal: Blood Glucose Level Within Target Range Outcome: Ongoing, Progressing Intervention: Optimize Glycemic Control Flowsheets (Taken 10/20/2024 1226) Hyperglycemia Management: blood glucose monitored Goal: Minimize Hypoglycemia Risk Outcome: Ongoing, Progressing Intervention: Minimize and Manage Hypoglycemia Flowsheets (Taken 10/20/2024 1226) Hypoglycemia Management: blood glucose monitored Problem: Mobility Impairment Goal: Optimal Mobility Outcome: Ongoing, Progressing Intervention: Optimize Mobility Flowsheets Taken 10/20/2024 1226 Positioning/Transfer Devices: pillows in use Taken 10/20/2024 0800 Activity Management: activity adjusted per tolerance bedrest * Progress Notes - Jeannie Valle MD - 10/20/2024 12:17 PM EDT Images from the original note were not included. [facility] Inpatient Progress Note Patient: Mundo Fernandez PCP: Leonard Botello MD Date: 10/20/2024 Subjective No new concerns reported by staff. Awaiting placement. Laying on bed comfortably. Shows thumps up on asking if he is doing ok. No new complaints/ poor historian. Not in any distress. Review of Systems Unable to perform ROS: Psychiatric disorder Objective INPATENT MEDICATIONS Current Medications[1] ALLERGIES Allergies[2] 24 HOUR VITALS Temp: [36.6 ??C (97.8 ??F)-37.1 ??C (98.7 ??F)] 36.6 ??C (97.8 ??F) Heart Rate: [68-76] 75 Resp: [16] 16 BP: (119-154)/(52-71) 154/68 INTAKE/OUTPUT Intake/Output Summary (Last 24 hours) at 10/20/2024 1217 Last data filed at 10/20/2024 1100 Gross per 24 hour Intake 1764 ml Output -- Net 1764 ml Physical Exam Constitutional: Appearance: He is normal weight. He is not toxic-appearing. Comments: Minimally verbal HENT: Head: Normocephalic. Eyes: Extraocular Movements: Extraocular movements intact. Cardiovascular: Rate and Rhythm: Normal rate and regular rhythm. Pulmonary: Effort: Pulmonary effort is normal. Breath sounds: Normal breath sounds. Abdominal: General: Abdomen is flat. There is no distension. Musculoskeletal: Cervical back: Normal range of motion and neck supple. Skin: General: Skin is warm. Findings: No lesion. Neurological: Mental Status: He is alert. Psychiatric: Mood and Affect: Affect is flat. Cognition and Memory: Cognition is impaired. REVIEW OF LABORATORY DATA Lab Results Component Value Date WBC 7.44 10/02/2024 HGB 8.2 (L) 10/09/2024 HCT 23.7 (L) 10/09/2024 MCV 90 10/02/2024 PLT 119 (L) 10/02/2024 Lab Results Component Value Date GLUCOSE 96 10/07/2024 CALCIUM 7.2 (L) 10/07/2024 NA 125 (L) 10/07/2024 K 4.1 10/07/2024 CO2 23 10/07/2024 CL 92 (L) 10/07/2024 BUN 41 (H) 10/07/2024 CREATININE 6.91 (H) 10/07/2024 Lab Results Component Value Date ALT 6 (L) 09/30/2024 AST 13 09/30/2024 ALKPHOS 42 09/30/2024 BILITOT 0.6 09/30/2024 Lab Results Component Value Date INR 1.0 12/07/2022 REVIEW OF IMAGING STUDIES XR Chest 1 View Narrative: CLINICAL INDICATION: Role-out TB for outpatient dialysis chair TECHNIQUE: XR CHEST 1 VIEW COMPARISON: August 25, 2023 FINDINGS: Stable cardiac silhouette and mediastinal contours. Stable bilateral pleural effusions versus thickening. Stable bilateral basilar atelectasis. No consolidations or pneumothorax. Impression: No visualized airspace disease. CRITICAL RESULT: No. COMMUNICATION: Per this written report. Preliminary report signed by Seng Martinez MD on 10/17/2024 2:39 PM By electronically signing this report, I, the attending physician, attest that I have personally reviewed the images/data for the above examination(s) and agree with the final edited report. Drafted by Seng Martinez MD on 10/17/2024 2:37 PM Final report signed by Fortunato Willett MD on 10/17/2024 2:49 PM REVIEW OF PROCEDURES Assessment and Plan: Aakash Fernandez is a [place] 64 y.o. male with past history of ESRD on HD MWF, T2DM, HTN, chronic HFrEF, PAD, HLD, IDD/dementia, depression/anxiety, insomnia, chronic HCV, DM foot ulcer c/b OM s/p bilateral transmetarsal amputation, and debility sent from [place] [facility] to ED for medical evaluationafter refusing care. Declining functional status - Transferred to [place] [facility] a week ago and since arrival refusing HD, to eat, participate, or take medications - sent to ED for medical evaluation and need for higher level of assist/unable to care for self/non-compliance - afebrile, VSS, no acute complaints PLAN - PT/OT consult re: placement - legal guardian is his brother, Chris Fernandez, #[phone] (not answering calls since patient admission) Essential (primary) hypertension - increased carvedilol to 25 mg twice daily, nifedipine XL 60 mg daily (hold for BP <120/80 on dialysis days) At high risk for falls - wheelchair dependent, fall precautions ESRD (end stage renal disease) on dialysis ([facility]) - HD (MWF) - renally dose meds based on EGFR - strict I/O, daily weight Electrolyte and fluid disorder Hyponatremia Chronic kidney disease-mineral and bone disorder (CKD-MBD) - continue Renvela 800 mg TID with meals Anemia in chronic kidney disease (CODE) - Hgb stable, transfuse to keep >7 Type 2 diabetes mellitus with chronic kidney disease on chronic dialysis ([facility]) - last A1c 6.3 PLAN - will dc SSI given minimal Insulin need Dementia ([facility]) - Psych recommended; Asenapine 3.8 mg daily restarted (not on formulary his caregiver brought his patches) Mild intellectual disabilities - last neuropsych exam in 2023 found to not have capacity, brother is legal guardian - continue Depakote Sprinkle 250 mg twice daily Anxiety and depression - continue Sertraline 75 mg daily Insomnia, unspecified - continue trazodone 100 mg at bedtime, melatonin 3 mg at bedtime Arterial insufficiency ([facility]) - continue aspirin 81 mg daily, clopidogrel 75 mg daily Mixed hyperlipidemia - continue atorvastatin 40 mg at bedtime 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 - continue statin, ASA, clopidogrel as above Gastroesophageal reflux disease without esophagitis - continue daily PPI Sensorineural hearing loss, bilateral Wears hearing aid in both ears - not present with patient on admission, have tried to call caregiver to bring them to hospital with no luck Chronic combined systolic (congestive) and diastolic (congestive) heart failure ([facility]) - ECHO 06/27/2022: EF 45%, abnormal diastolic dysfunction - strict I/O, 2 L fluid restriction, cardiac/renal/CCHO2 diet Chronic hepatitis C without hepatic coma ([facility]) - HCV RNA PCR not detected 07/13/2023 History of transmetatarsal amputation of foot ([facility]) - chronic OM 2/2 DM foot ulcers s/p bilateral transmetarsal amputation Dispo : pending placement. Per CM- at [facility] indicates patient has been approved for LTC pending [facility] chair. Primary CM/RN will need to arrange transportation to [facility] on Mondayand transportation to/from [place] to outpatient HD will have to be arranged as well. Pt may need to [facility] on Monday and then start outpatient HD on 10/23. [1] Current Facility-Administered Medications: acetaminophen (Tylenol) tablet 650 mg, 650 mg, Oral, q6h PRN, Lala Valdes, MEDICAL ADMINISTRATIVE TECHNICIAN, 650 mg at 10/18/242099 aspirin chewable tablet 81 mg, 81 mg, Oral, Daily, Lala Valdes, MEDICAL ADMINISTRATIVE TECHNICIAN, 81 mg at 10/20/24919 atorvastatin (Lipitor) tablet 40 mg, 40 mg, Oral, Nightly, Lala Valdes, MEDICAL ADMINISTRATIVE TECHNICIAN, 40 mg at 10/19/242013 bisacodyl (Dulcolax) EC tablet 10 mg, 10 mg, Oral, Daily PRN, Lala Valdes MEDICAL ADMINISTRATIVE TECHNICIAN, 10 mg at 10/17/24 08 cadexomer iodine (Iodosorb) 0.9 % gel, , Topical, Daily, Tana Wooten MD, Given at 10/19/24821 carvedilol (Coreg) tablet 25 mg, 25 mg, Oral, BID, Leda Gaitan MD, 25 mg at 10/20/24 09 clopidogrel (Plavix) tablet 75 mg, 75 mg, Oral, Daily, Lala Valdes MEDICAL ADMINISTRATIVE TECHNICIAN, 75 mg at 10/20/24 09 glucose (Glutose) 40 % oral gel 15-30 grams of glucose, 15-30 grams of glucose, Sublingual, q15 minPRN OR dextrose 10 % (D10W) bolus 125 mL, 125 mL, Intravenous, q15 min PRN OR dextrose 10 %(D10W) bolus 250 mL, 250 mL, Intravenous, q15 min PRN OR glucagon (human recombinant) injection1 mg, 1 mg, Intramuscular, q15 min PRN, Lala Valdes, MEDICAL ADMINISTRATIVE TECHNICIAN divalproex sprinkle (Depakote Sprinkle) DR capsule 250 mg, 250 mg, Oral, BID, Lala Valdes, MEDICAL ADMINISTRATIVE TECHNICIAN,250 mg at 10/20/24 09 heparin (porcine) injection 5,000 Units, 5,000 Units, Subcutaneous, q8h RAFAT, Lala Valdes MEDICAL ADMINISTRATIVE TECHNICIAN, 5,000 Units at 10/19/242014 melatonin tablet 3 mg, 3 mg, Oral, Nightly, Laith Valdesana B, MEDICAL ADMINISTRATIVE TECHNICIAN, 3 mg at 10/19/242013 NIFEdipine XL (Procardia XL) 24 hr tablet 60 mg, 60 mg, Oral, Daily, Leda Gaitan MD, 60 mg at 10/20/24919 polyethylene glycol (Miralax) packet 17 g, 17 g, Oral, BID, Lucio Gitana B, MEDICAL ADMINISTRATIVE TECHNICIAN, 17 g at 10/20/24919 senna (Senokot) tablet 17.2 mg, 17.2 mg, Oral, Nightly, Lucio, Gitana B, MEDICAL ADMINISTRATIVE TECHNICIAN, 17.2 mg at 10/19/242055 sertraline (Zoloft) tablet 75 mg, 75 mg, Oral, Daily, Lucio, Gitana B, MEDICAL ADMINISTRATIVE TECHNICIAN, 75 mg at 10/20/24919 Insert peripheral IV, , , Once AND Saline lock IV, , , Once AND sodium chloride 0.9 % flush10 mL, 10 mL, Intravenous, q12h, 10 mL at 10/13/24 175 AND sodium chloride 0.9 % flush 10 mL, 10 mL, Intravenous, PRN, Lucio, Gitana B, MEDICAL ADMINISTRATIVE TECHNICIAN traZODone (Desyrel) tablet 100 mg, 100 mg, Oral, Nightly, Lucio, Gitana B, MEDICAL ADMINISTRATIVE TECHNICIAN, 100 mg at 10/19/242013 Facility-Administered Medications Ordered in Other Encounters: lidocaine-EPINEPHrine (PF) (Xylocaine W/EPI) 1 %-1:173063 injection - Pyxis Override Pull, , , , lidocaine-EPINEPHrine (PF) (Xylocaine W/EPI) 1 %-1:414152 injection - Pyxis Override Pull, , , , [2] No Known Allergies * Care Plan - Sara Garnett RN - 10/19/2024 9:49 PM EDT Problem: Adult Inpatient Plan of Care Goal: Plan of Care Review Outcome: Ongoing, Progressing Flowsheets (Taken 10/19/20242139) Progress: no change Plan of Care Reviewed With: patient Goal: Patient-Specific Goal (Individualized) Outcome: Ongoing, Progressing Flowsheets (Taken 10/19/20241999) Patient/Family-Specific Goals (Include Timeframe): pt will be free of falls or injury today Individualized Care Needs: safety Anxieties, Fears or Concerns: none Goal: Absence of Hospital-Acquired Illness or Injury Outcome: Ongoing, Progressing Intervention: Identify and Manage Fall Risk Flowsheets (Taken 10/19/20242139) Safety Promotion/Fall Prevention: safety round/check completed clutter-free environment maintained room organization consistent nonskid shoes/slippers when out of bed Intervention: Prevent Skin Injury Flowsheets (Taken 10/19/20242139) Skin Protection: incontinence pads utilized Intervention: Prevent Infection Flowsheets (Taken 10/19/20242139) Infection Prevention: hand hygiene promoted single patient room provided rest/sleep promoted personal protective equipment utilized environmental surveillance performed Goal: Optimal Comfort and Wellbeing Outcome: Ongoing, Progressing Intervention: Provide Person-Centered Care Flowsheets (Taken 10/19/20242139) Trust Relationship/Rapport: care explained questions answered thoughts/feelings acknowledged questions encouraged Goal: Readiness for Transition of Care Outcome: Ongoing, Progressing Intervention: Mutually Develop Transition Plan Flowsheets (Taken 10/19/20242139) Discharge Facility/Level of Care Needs: 30-Still a Patient Current Outpatient/Agency/Support Group: clinic(s) Concerns to be Addressed: medication Readmission Within the Last 30 Days: no previous admission in last 30 days Patient/Family Anticipates Transition to: long-term care facility Problem: Skin Injury Risk Increased Goal: Skin Health and Integrity Outcome: Ongoing, Progressing Intervention: Optimize Skin Protection Flowsheets (Taken 10/19/20242139) Activity Management: activity adjusted per tolerance Pressure Reduction Techniques: frequent weight shift encouraged Skin Protection: incontinence pads utilized Head of Bed (HOB) Positioning: HOB at 30 degrees Intervention: Promote and Optimize Oral Intake Flowsheets (Taken 10/19/20242139) Nutrition Interventions: frequent small meals provided Problem: Fall Injury Risk Goal: Absence of Fall and Fall-Related Injury Outcome: Ongoing, Progressing Intervention: Identify and Manage Contributors Flowsheets (Taken 10/19/20242139) Medication Review/Management: high-risk medications identified Self-Care Promotion: BADL personal objects within reach BADL personal routines maintained Intervention: Promote Injury-Free Environment Flowsheets (Taken 10/19/20242139) Safety Promotion/Fall Prevention: safety round/check completed clutter-free environment maintained room organization consistent nonskid shoes/slippers when out of bed Problem: Wound Goal: Skin Health and Integrity Outcome: Ongoing, Progressing Intervention: Optimize Skin Protection Flowsheets (Taken 10/19/20242139) Activity Management: activity adjusted per tolerance Pressure Reduction Techniques: frequent weight shift encouraged Skin Protection: frequent weight shift encouraged Head of Bed (HOB) Positioning: HOB at 30 degrees Goal: Optimal Wound Healing Outcome: Ongoing, Progressing Intervention: Promote Wound Healing Flowsheets (Taken 10/19/20242139) Sleep/Rest Enhancement: consistent schedule promoted room darkened noise level reduced Problem: Hemodialysis Goal: Safe, Effective Therapy Delivery Outcome: Ongoing, Progressing Intervention: Optimize Device Care and Function Flowsheets (Taken 10/19/20242139) Medication Review/Management: high-risk medications identified Goal: Effective Tissue Perfusion Outcome: Ongoing, Progressing Goal: Absence of Infection Signs and Symptoms Outcome: Ongoing, Progressing Intervention: Prevent or Manage Infection Flowsheets (Taken 10/19/20242139) Infection Management: aseptic technique maintained Infection Prevention: hand hygiene promoted single patient room provided rest/sleep promoted personal protective equipment utilized environmental surveillance performed Problem: Self-Care Deficit Goal: Improved Ability to Complete Activities of Daily Living Outcome: Ongoing, Progressing Intervention: Promote Activity and Functional [place] Flowsheets (Taken 10/19/20242139) Activity Assistance Provided: assistance, 2 people Self-Care Promotion: BADL personal objects within reach BADL personal routines maintained Problem: Infection Goal: Absence of Infection Signs and Symptoms Outcome: Ongoing, Progressing Intervention: Prevent or Manage Infection Flowsheets (Taken 10/19/20242139) Infection Management: aseptic technique maintained Note: Standard precautions maintained Problem: Diabetes Goal: Optimal Coping Outcome: Ongoing, Progressing Intervention: Support Wellbeing and Self-Management Success Flowsheets (Taken 10/19/20242139) Supportive Measures: self-care encouraged decision-making supported Family/Support System Care: self-care encouraged Goal: Optimal Functional Ability Outcome: Ongoing, Progressing Intervention: Optimize Functional Ability Flowsheets (Taken 10/19/20242139) Activity Management: activity adjusted per tolerance Activity Assistance Provided: assistance, 2 people Self-Care Promotion: BADL personal objects within reach BADL personal routines maintained Goal: Blood Glucose Level Within Target Range Outcome: Ongoing, Progressing Intervention: Optimize Glycemic Control Flowsheets (Taken 10/19/20242139) Hyperglycemia Management: blood glucose monitored Goal: Minimize Hypoglycemia Risk Outcome: Ongoing, Progressing Intervention: Minimize and Manage Hypoglycemia Flowsheets (Taken 10/19/20242139) Hypoglycemia Management: blood glucose monitored Problem: Mobility Impairment Goal: Optimal Mobility Outcome: Ongoing, Progressing Intervention: Optimize Mobility Flowsheets (Taken 10/19/20242139) Activity Management: activity adjusted per tolerance * Progress Notes - Jeannie Valle MD - 10/19/2024 2:56 PM EDT Images from the original note were not included. [facility] Medicine Inpatient Progress Note Patient: Mundo Fernandez PCP: Leonard Botello MD Date: 10/19/2024 Subjective No new concerns reported by staff. Awaiting placement. Laying on bed comfortably. Had HD yesterday No new complaints. Not in any distress. Review of Systems Unable to perform ROS: Psychiatric disorder Objective INPATENT MEDICATIONS Current Medications[1] ALLERGIES Allergies[2] 24 HOUR VITALS Temp: [36.4 ??C (97.5 ??F)-36.7 ??C (98.1 ??F)] 36.7 ??C (98.1 ??F) Heart Rate: [65-77] 65 Resp: [16-17] 16 BP: (127-150)/(52-70) 138/70 INTAKE/OUTPUT Intake/Output Summary (Last 24 hours) at 10/19/2024 1456 Last data filed at 10/19/2024 1300 Gross per 24 hour Intake 1102 ml Output -- Net 1102 ml Physical Exam Constitutional: Appearance: He is normal weight. He is not toxic-appearing. Comments: Minimally verbal HENT: Head: Normocephalic. Eyes: Extraocular Movements: Extraocular movements intact. Cardiovascular: Rate and Rhythm: Normal rate and regular rhythm. Pulmonary: Effort: Pulmonary effort is normal. Breath sounds: Normal breath sounds. Abdominal: General: Abdomen is flat. There is no distension. Musculoskeletal: Cervical back: Normal range of motion and neck supple. Skin: General: Skin is warm. Findings: No lesion. Neurological: Mental Status: He is alert. Psychiatric: Mood and Affect: Affect is flat. Cognition and Memory: Cognition is impaired. REVIEW OF LABORATORY DATA Lab Results Component Value Date WBC 7.44 10/02/2024 HGB 8.2 (L) 10/09/2024 HCT 23.7 (L) 10/09/2024 MCV 90 10/02/2024 PLT 119 (L) 10/02/2024 Lab Results Component Value Date GLUCOSE 96 10/07/2024 CALCIUM 7.2 (L) 10/07/2024 NA 125 (L) 10/07/2024 K 4.1 10/07/2024 CO2 23 10/07/2024 CL 92 (L) 10/07/2024 BUN 41 (H) 10/07/2024 CREATININE 6.91 (H) 10/07/2024 Lab Results Component Value Date ALT 6 (L) 09/30/2024 AST 13 09/30/2024 ALKPHOS 42 09/30/2024 BILITOT 0.6 09/30/2024 Lab Results Component Value Date INR 1.0 12/07/2022 REVIEW OF IMAGING STUDIES XR Chest 1 View Narrative: CLINICAL INDICATION: Role-out TB for outpatient dialysis chair TECHNIQUE: XR CHEST 1 VIEW COMPARISON: August 25, 2023 FINDINGS: Stable cardiac silhouette and mediastinal contours. Stable bilateral pleural effusions versus thickening. Stable bilateral basilar atelectasis. No consolidations or pneumothorax. Impression: No visualized airspace disease. CRITICAL RESULT: No. COMMUNICATION: Per this written report. Preliminary report signed by Seng Martinez MD on 10/17/2024 2:39 PM By electronically signing this report, I, the attending physician, attest that I have personally reviewed the images/data for the above examination(s) and agree with the final edited report. Drafted by Seng Martinez MD on 10/17/2024 2:37 PM Final report signed by Fortunato Willett MD on 10/17/2024 2:49 PM REVIEW OF PROCEDURES Assessment and Plan: Aakash Fernandez is a [place] 64 y.o. male with past history of ESRD on HD MWF, T2DM, HTN, chronic HFrEF, PAD, HLD, IDD/dementia, depression/anxiety, insomnia, chronic HCV, DM foot ulcer c/b OM s/p bilateral transmetarsal amputation, and debility sent from his [place] [facility] to ED for medical evaluationafter refusing care. Declining functional status - Transferred to [place] [facility] a week ago and since arrival refusing HD, to eat, participate, or take medications - sent to ED for medical evaluation and need for higher level of assist/unable to care for self/non-compliance - afebrile, VSS, no acute complaints PLAN - PT/OT consult re: placement - legal guardian is his brother, Chris Fernandez, #[phone] (not answering calls since patient admission) Essential (primary) hypertension - increased carvedilol to 25 mg twice daily, nifedipine XL 60 mg daily (hold for BP <120/80 on dialysis days) At high risk for falls - wheelchair dependent, fall precautions ESRD (end stage renal disease) on dialysis ([facility]) - HD (MWF) - renally dose meds based on EGFR - strict I/O, daily weight Electrolyte and fluid disorder Hyponatremia Chronic kidney disease-mineral and bone disorder (CKD-MBD) - continue Renvela 800 mg TID with meals Anemia in chronic kidney disease (CODE) - Hgb stable, transfuse to keep >7 Type 2 diabetes mellitus with chronic kidney disease on chronic dialysis ([facility]) - last A1c 6.3 PLAN - will dc SSI given minimal Insulin need Dementia ([facility]) - Psych recommended; Asenapine 3.8 mg daily restarted (not on formulary his caregiver brought his patches) Mild intellectual disabilities - last neuropsych exam in 2023 found to not have capacity, brother is legal guardian - continue Depakote Sprinkle 250 mg twice daily Anxiety and depression - continue Sertraline 75 mg daily Insomnia, unspecified - continue trazodone 100 mg at bedtime, melatonin 3 mg at bedtime Arterial insufficiency ([facility]) - continue aspirin 81 mg daily, clopidogrel 75 mg daily Mixed hyperlipidemia - continue atorvastatin 40 mg at bedtime 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 - continue statin, ASA, clopidogrel as above Gastroesophageal reflux disease without esophagitis - continue daily PPI Sensorineural hearing loss, bilateral Wears hearing aid in both ears - not present with patient on admission, have tried to call caregiver to bring them to hospital with no luck Chronic combined systolic (congestive) and diastolic (congestive) heart failure ([facility]) - ECHO 06/27/2022: EF 45%, abnormal diastolic dysfunction - strict I/O, 2 L fluid restriction, cardiac/renal/CCHO2 diet Chronic hepatitis C without hepatic coma (CMS/HCC) - HCV RNA PCR not detected 07/13/2023 History of transmetatarsal amputation of foot (CMS/HCC) - chronic OM 2/2 DM foot ulcers s/p bilateral transmetarsal amputation Dispo : pending placement. Per CM- at [facility] indicates patient has been approved for LTC pending [facility] chair. Primary CM/RN will need to arrange transportation to [facility] on Mondayand transportation to/from [place] to outpatient HD will have to be arranged as well. Pt [facility] need [facility] getHD [facility] on Monday and then start outpatient HD on 10/23. [1] Current Facility-Administered Medications: acetaminophen (Tylenol) tablet 650 mg, 650 mg, Oral, q6h PRN, Lala Valdes, MEDICAL ADMINISTRATIVE TECHNICIAN, 650 mg at 10/18/24 2100 aspirin chewable tablet 81 mg, 81 mg, Oral, Daily, Lala Valdes B, MEDICAL ADMINISTRATIVE TECHNICIAN, 81 mg at 10/19/24 0820 atorvastatin (Lipitor) tablet 40 mg, 40 mg, Oral, Nightly, Lala Valdes, MEDICAL ADMINISTRATIVE TECHNICIAN, 40 mg at 10/18/24 2100 bisacodyl (Dulcolax) EC tablet 10 mg, 10 mg, Oral, Daily PRN, Lala Valdes B, MEDICAL ADMINISTRATIVE TECHNICIAN, 10 mg at 10/17/24 0843 cadexomer iodine (Iodosorb) 0.9 % gel, , Topical, Daily, Tana Wooten MD, Given at 10/19/24 0822 carvedilol (Coreg) tablet 25 mg, 25 mg, Oral, BID, Leda Gaitan MD, 25 mg at 10/19/24 0820 clopidogrel (Plavix) tablet 75 mg, 75 mg, Oral, Daily, Lala Valdes, MEDICAL ADMINISTRATIVE TECHNICIAN, 75 mg at 10/19/24 0820 glucose (Glutose) 40 % oral gel 15-30 grams of glucose, 15-30 grams of glucose, Sublingual, q15 minPRN OR dextrose 10 % (D10W) bolus 125 mL, 125 mL, Intravenous, q15 min PRN OR dextrose 10 %(D10W) bolus 250 mL, 250 mL, Intravenous, q15 min PRN OR glucagon (human recombinant) injection1 mg, 1 mg, Intramuscular, q15 min PRN, Lala Valdes B, MEDICAL ADMINISTRATIVE TECHNICIAN divalproex sprinkle (Depakote Sprinkle) DR capsule 250 mg, 250 mg, Oral, BID, Lala Valdes, MEDICAL ADMINISTRATIVE TECHNICIAN,250 mg at 10/19/24 0820 heparin (porcine) injection 5,000 Units, 5,000 Units, Subcutaneous, q8h RAFAT, Lala Valdes B, MEDICAL ADMINISTRATIVE TECHNICIAN, 5,000 Units at 10/19/24 1323 melatonin tablet 3 mg, 3 mg, Oral, Nightly, Laith Valdesana B, MEDICAL ADMINISTRATIVE TECHNICIAN, 3 mg at 10/18/24 2100 NIFEdipine XL (Procardia XL) 24 hr tablet 60 mg, 60 mg, Oral, Daily, Leda Gaitan MD, 60 mg at 10/19/24 0820 polyethylene glycol (Miralax) packet 17 g, 17 g, Oral, BID, Lala Valdes, MEDICAL ADMINISTRATIVE TECHNICIAN, 17 g at 10/19/24 0820 senna (Senokot) tablet 17.2 mg, 17.2 mg, Oral, Nightly PRN, Lala Valdes, MEDICAL ADMINISTRATIVE TECHNICIAN, 17.2 mg at 10/16/24 2030 sertraline (Zoloft) tablet 75 mg, 75 mg, Oral, Daily, Lala Valdes, MEDICAL ADMINISTRATIVE TECHNICIAN, 75 mg at 10/19/24 0821 Insert peripheral IV, , , Once AND Saline lock IV, , , Once AND sodium chloride 0.9 % flush10 mL, 10 mL, Intravenous, q12h, 10 mL at 10/13/24 1759 AND sodium chloride 0.9 % flush 10 mL, 10 mL, Intravenous, PRN, Laith Valdesana B, MEDICAL ADMINISTRATIVE TECHNICIAN traZODone (Desyrel) tablet 100 mg, 100 mg, Oral, Nightly, Lala Valdes B, MEDICAL ADMINISTRATIVE TECHNICIAN, 100 mg at 10/18/24 2101 Facility-Administered Medications Ordered in Other Encounters: lidocaine-EPINEPHrine (PF) (Xylocaine W/EPI) 1 %-1:844623 injection - Pyxis Override Pull, , , , lidocaine-EPINEPHrine (PF) (Xylocaine W/EPI) 1 %-1:163783 injection - Pyxis Override Pull, , , , [2] No Known Allergies * Care Plan - Marilee Zamora RN - 10/19/2024 12:03 PM EDT Problem: Adult Inpatient Plan of Care Goal: Plan of Care Review Outcome: Ongoing, Progressing Flowsheets Taken 10/19/2024 1154 by Marilee Zamora RN Progress: improving Outcome Evaluation: Patient will understand and participate in his plan of care within the shift. Taken 10/18/2024 2245 by Nelli Mayberry RN Plan of Care Reviewed With: patient Goal: Patient-Specific Goal (Individualized) Outcome: Ongoing, Progressing Flowsheets (Taken 10/19/2024 0800) Patient/Family-Specific Goals (Include Timeframe): Patient will cooperate with 2000 ml fluid restriction for 24 hours within the shift. Individualized Care Needs: safety Anxieties, Fears or Concerns: fluid restriction Goal: Absence of Hospital-Acquired Illness or Injury Outcome: Ongoing, Progressing Intervention: Prevent Infection Flowsheets (Taken 10/19/2024 1154) Infection Prevention: hand hygiene promoted rest/sleep promoted Goal: Optimal Comfort and Wellbeing Outcome: Ongoing, Progressing Intervention: Provide Person-Centered Care Flowsheets (Taken 10/19/2024 1154) Trust Relationship/Rapport: care explained emotional support provided questions answered thoughts/feelings acknowledged Problem: Skin Injury Risk Increased Goal: Skin Health and Integrity Outcome: Ongoing, Progressing Intervention: Promote and Optimize Oral Intake Flowsheets (Taken 10/19/2024 1154) Oral Nutrition Promotion: physical activity promoted Nutrition Interventions: meal set-up provided frequent small meals provided Problem: Fall Injury Risk Goal: Absence of Fall and Fall-Related Injury Outcome: Ongoing, Progressing Intervention: Promote Injury-Free Environment Flowsheets (Taken 10/19/2024 1154) Safety Promotion/Fall Prevention: safety round/check completed fall prevention program maintained Problem: Wound Goal: Skin Health and Integrity Outcome: Ongoing, Progressing Intervention: Optimize Skin Protection Flowsheets (Taken 10/19/2024 1154) Activity Management: activity adjusted per tolerance Pressure Reduction Techniques: frequent weight shift encouraged Skin Protection: frequent weight shift encouraged incontinence pads utilized Head of Bed (HOB) Positioning: HOB elevated Goal: Optimal Wound Healing Outcome: Ongoing, Progressing Intervention: Promote Wound Healing Flowsheets (Taken 10/19/2024 1154) Sleep/Rest Enhancement: regular sleep/rest pattern promoted noise level reduced natural light exposure provided Problem: Hemodialysis Goal: Safe, Effective Therapy Delivery Outcome: Ongoing, Progressing Intervention: Optimize Device Care and Function Flowsheets (Taken 10/19/2024 1154) Medication Review/Management: high-risk medications identified Goal: Effective Tissue Perfusion Outcome: Ongoing, Progressing Intervention: Optimize Blood Flow Flowsheets (Taken 10/19/2024 1154) Stabilization Measures: legs elevated Goal: Absence of Infection Signs and Symptoms Outcome: Ongoing, Progressing Intervention: Prevent or Manage Infection Flowsheets (Taken 10/19/2024 1154) Infection Management: aseptic technique maintained Fever Reduction/Comfort Measures: lightweight clothing Infection Prevention: hand hygiene promoted rest/sleep promoted Problem: Self-Care Deficit Goal: Improved Ability to Complete Activities of Daily Living Outcome: Ongoing, Progressing Intervention: Promote Activity and Functional [place] Flowsheets (Taken 10/19/2024 1154) Activity Assistance Provided: assistance, 2 people Self-Care Promotion: meal set-up provided Problem: Infection Goal: Absence of Infection Signs and Symptoms Outcome: Ongoing, Progressing Intervention: Prevent or Manage Infection Flowsheets (Taken 10/19/2024 1154) Infection Management: aseptic technique maintained Fever Reduction/Comfort Measures: lightweight clothing Isolation Precautions: precautions maintained Problem: Diabetes Goal: Optimal Coping Outcome: Ongoing, Progressing Intervention: Support Wellbeing and Self-Management [place] Flowsheets (Taken 10/19/2024 1154) Supportive Measures: self-care encouraged relaxation techniques promoted active listening utilized Family/Support System Care: support provided self-care encouraged Goal: Optimal Functional Ability Outcome: Ongoing, Progressing Intervention: Optimize Functional Ability Flowsheets (Taken 10/19/2024 1154) Activity Management: activity adjusted per tolerance Activity Assistance Provided: assistance, 2 people Self-Care Promotion: meal set-up provided Goal: Blood Glucose Level Within Target Range Outcome: Ongoing, Progressing Intervention: Optimize Glycemic Control Flowsheets (Taken 10/19/2024 1154) Hyperglycemia Management: blood glucose monitored Goal: Minimize Hypoglycemia Risk Outcome: Ongoing, Progressing Intervention: Minimize and Manage Hypoglycemia Flowsheets (Taken 10/19/2024 1154) Hypoglycemia Management: blood glucose monitored Problem: Mobility Impairment Goal: Optimal Mobility Outcome: Ongoing, Progressing Intervention: Optimize Mobility Flowsheets (Taken 10/19/2024 1154) Activity Management: activity adjusted per tolerance Positioning/Transfer Devices: pillows * Care Plan - Nelli Mayberry RN - 10/18/2024 10:53 PM EDT Problem: Adult Inpatient Plan of Care Goal: Plan of Care Review Outcome: Ongoing, Progressing Flowsheets (Taken 10/18/20242244) Progress: improving Outcome Evaluation: Patient will understand plan of care during shift Plan of Care Reviewed With: patient Goal: Patient-Specific Goal (Individualized) Outcome: Ongoing, Progressing Flowsheets (Taken 10/18/20242244) Patient/Family-Specific Goals (Include Timeframe): Patient will stay within the 2000mL fluid restriction throughout shift Individualized Care Needs: Fluid restriction Anxieties, Fears or Concerns: None stated Goal: Absence of Hospital-Acquired Illness or Injury Outcome: Ongoing, Progressing Intervention: Identify and Manage Fall Risk Flowsheets (Taken 10/18/20241999) Safety Promotion/Fall Prevention: safety round/check completed Intervention: Prevent Skin Injury Flowsheets Taken 10/18/20242244 Skin Protection: other (see comments) Taken 10/18/20241999 Body Position: weight shifting Intervention: Prevent and Manage VTE (Venous Thromboembolism) Risk Flowsheets (Taken 10/18/20241999) VTE Prevention/Management: medication Intervention: Prevent Infection Flowsheets (Taken 10/18/20242244) Infection Prevention: hand hygiene promoted Goal: Optimal Comfort and Wellbeing Outcome: Ongoing, Progressing Intervention: Monitor Pain and Promote Comfort Flowsheets (Taken 10/18/20242244) Pain Management Interventions: emotional support Intervention: Provide Person-Centered Care Flowsheets (Taken 10/18/20242244) Trust Relationship/Rapport: emotional support provided * Progress Notes - Nano Hurst - 10/18/2024 3:33 PM EDT Case Management Adult Progress Note Mundo Fernandez 64 y.o. male CSN: [id number] Admission: 09/30/2024 3:29 PM Primary Problem: Declining functional status Renal SW finalized pt's outpatient HD arrangements. Pt can start with [facility] on Monday, Oct 21 and will need to arrive there at 10:20 AM for admission paperwork. See details below. HD letter emailed to primary CM to give to pt upon discharge. UPDATE: Primary CM/RN will need to arrange transportation to [facility] on Monday and transportation to/from [place] to outpatient HD will have to be arranged as well. Pt may need to get HD at [facility] on Monday and then start outpatient HD on 10/23. SAMUEL Augustin Keysmith * Progress Notes - Jeannie Valle MD - 10/18/2024 2:20 PM EDT Images from the original note were not included. [facility] Medicine Inpatient Progress Note Patient: Mundo Fernandez PCP: Leonard Botello MD Date: 10/18/2024 Subjective No new concerns reported by staff. Awaiting placement. Laying on bed comfortably. Had HD this morning. No new complaints. Not in any distress. Review of Systems Unable to perform ROS: Psychiatric disorder Objective INPATENT MEDICATIONS Current Medications[1] ALLERGIES Allergies[2] 24 HOUR VITALS Temp: [36.4 ??C (97.5 ??F)-36.7 ??C (98.1 ??F)] 36.4 ??C (97.5 ??F) Heart Rate: [66-81] 79 Resp: [17-20] 18 BP: (89-182)/(49-67) 182/65 INTAKE/OUTPUT Intake/Output Summary (Last 24 hours) at 10/18/2024 1420 Last data filed at 10/18/2024 1245 Gross per 24 hour Intake 600 ml Output 2300 ml Net -1700 ml Physical Exam Constitutional: Appearance: He is normal weight. He is not toxic-appearing. Comments: Minimally verbal HENT: Head: Normocephalic. Eyes: Extraocular Movements: Extraocular movements intact. Cardiovascular: Rate and Rhythm: Normal rate and regular rhythm. Pulmonary: Effort: Pulmonary effort is normal. Breath sounds: Normal breath sounds. Abdominal: General: Abdomen is flat. There is no distension. Musculoskeletal: Cervical back: Normal range of motion and neck supple. Skin: General: Skin is warm. Findings: No lesion. Neurological: Mental Status: He is alert. Psychiatric: Mood and Affect: Affect is flat. Cognition and Memory: Cognition is impaired. REVIEW OF LABORATORY DATA Lab Results Component Value Date WBC 7.44 10/02/2024 HGB 8.2 (L) 10/09/2024 HCT 23.7 (L) 10/09/2024 MCV 90 10/02/2024 PLT 119 (L) 10/02/2024 Lab Results Component Value Date GLUCOSE 96 10/07/2024 CALCIUM 7.2 (L) 10/07/2024 NA 125 (L) 10/07/2024 K 4.1 10/07/2024 CO2 23 10/07/2024 CL 92 (L) 10/07/2024 BUN 41 (H) 10/07/2024 CREATININE 6.91 (H) 10/07/2024 Lab Results Component Value Date ALT 6 (L) 09/30/2024 AST 13 09/30/2024 ALKPHOS 42 09/30/2024 BILITOT 0.6 09/30/2024 Lab Results Component Value Date INR 1.0 12/07/2022 REVIEW OF IMAGING STUDIES XR Chest 1 View Narrative: CLINICAL INDICATION: Role-out TB for outpatient dialysis chair TECHNIQUE: XR CHEST 1 VIEW COMPARISON: August 25, 2023 FINDINGS: Stable cardiac silhouette and mediastinal contours. Stable bilateral pleural effusions versus thickening. Stable bilateral basilar atelectasis. No consolidations or pneumothorax. Impression: No visualized airspace disease. CRITICAL RESULT: No. COMMUNICATION: Per this written report. Preliminary report signed by Seng Martinez MD on 10/17/2024 2:39 PM By electronically signing this report, I, the attending physician, attest that I have personally reviewed the images/data for the above examination(s) and agree with the final edited report. Drafted by Seng Martinez MD on 10/17/2024 2:37 PM Final report signed by Fortunato Willett MD on 10/17/2024 2:49 PM REVIEW OF PROCEDURES Assessment and Plan: Aakash Fernandez is a [place] 64 y.o. male with past history of ESRD on HD MWF, T2DM, HTN, chronic HFrEF, PAD, HLD, IDD/dementia, depression/anxiety, insomnia, chronic HCV, DM foot ulcer c/b OM s/p bilateral transmetarsal amputation, and debility sent [place] [facility] [place] to ED for medical evaluationafter refusing care. Declining functional status - Transferred to [place] [facility] [place] a week ago and since arrival refusing HD, to eat, participate, or take medications - sent to ED for medical evaluation and need for higher level of assist/unable to care for self/non-compliance - afebrile, VSS, no acute complaints PLAN - PT/OT consult re: placement - legal guardian is his brother, Chris Fernandez, #[phone] (not answering calls since patient admission) Essential (primary) hypertension - increased carvedilol to 25 mg twice daily, nifedipine XL 60 mg daily (hold for BP <120/80 on dialysis days) At high risk for falls - wheelchair dependent, fall precautions ESRD (end stage renal disease) on dialysis ([facility]) - HD (MWF) - renally dose meds based on EGFR - strict I/O, daily weight Electrolyte and fluid disorder Hyponatremia Chronic kidney disease-mineral and bone disorder (CKD-MBD) - continue Renvela 800 mg TID with meals Anemia in chronic kidney disease (CODE) - Hgb stable, transfuse to keep >7 Type 2 diabetes mellitus with chronic kidney disease on chronic dialysis ([facility]) - last A1c 6.3 PLAN - will dc SSI given minimal Insulin need Dementia ([facility]) - Psych recommended; Asenapine 3.8 mg daily restarted (not on formulary his caregiver brought his patches) Mild intellectual disabilities - last neuropsych exam in 2023 found to not have capacity, brother is legal guardian - continue Depakote Sprinkle 250 mg twice daily Anxiety and depression - continue Sertraline 75 mg daily Insomnia, unspecified - continue trazodone 100 mg at bedtime, melatonin 3 mg at bedtime Arterial insufficiency (CMS/HCC) - continue aspirin 81 mg daily, clopidogrel 75 mg daily Mixed hyperlipidemia - continue atorvastatin 40 mg at bedtime 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 - continue statin, ASA, clopidogrel as above Gastroesophageal reflux disease without esophagitis - continue daily PPI Sensorineural hearing loss, bilateral Wears hearing aid in both ears - not present with patient on admission, have tried to call caregiver to bring them to hospital with no luck Chronic combined systolic (congestive) and diastolic (congestive) heart failure (CMS/HCC) - ECHO 06/27/2022: EF 45%, abnormal diastolic dysfunction - strict I/O, 2 L fluid restriction, cardiac/renal/CCHO2 diet Chronic hepatitis C without hepatic coma (CMS/HCC) - HCV RNA PCR not detected 07/13/2023 History of transmetatarsal amputation of foot (CMS/HCC) - chronic OM 2/2 DM foot ulcers s/p bilateral transmetarsal amputation Dispo : pending placement. Per CM- at [facility] indicates patient has been approved for LTC pending [facility] chair. [facility] [phone] is requesting a CXR, TB clearence, Hepatitis B Total Core Antibody (HbcAb) [1] Current Facility-Administered Medications: acetaminophen (Tylenol) tablet 650 mg, 650 mg, Oral, q6h PRN, Lala Valdes, MEDICAL ADMINISTRATIVE TECHNICIAN, 650 mg at 10/17/242012 aspirin chewable tablet 81 mg, 81 mg, Oral, Daily, Lala Valdes, MEDICAL ADMINISTRATIVE TECHNICIAN, 81 mg at 10/18/24 1318 atorvastatin (Lipitor) tablet 40 mg, 40 mg, Oral, Nightly, Lala Valdes, MEDICAL ADMINISTRATIVE TECHNICIAN, 40 mg at 10/17/242013 bisacodyl (Dulcolax) EC tablet 10 mg, 10 mg, Oral, Daily PRN, Lala Valdes, MEDICAL ADMINISTRATIVE TECHNICIAN, 10 mg at 10/17/24 0843 cadexomer iodine (Iodosorb) 0.9 % gel, , Topical, Daily, Tana Wooten MD, Given at 10/18/24 1330 carvedilol (Coreg) tablet 25 mg, 25 mg, Oral, BID, Leda Gaitan MD, 25 mg at 10/18/24 1318 clopidogrel (Plavix) tablet 75 mg, 75 mg, Oral, Daily, Lala Valdes MEDICAL ADMINISTRATIVE TECHNICIAN, 75 mg at 10/18/24 1320 glucose (Glutose) 40 % oral gel 15-30 grams of glucose, 15-30 grams of glucose, Sublingual, q15 minPRN OR dextrose 10 % (D10W) bolus 125 mL, 125 mL, Intravenous, q15 min PRN OR dextrose 10 %(D10W) bolus 250 mL, 250 mL, Intravenous, q15 min PRN OR glucagon (human recombinant) injection1 mg, 1 mg, Intramuscular, q15 min PRN, Lala Valdes APRN divalproex sprinkle (Depakote Sprinkle) DR capsule 250 mg, 250 mg, Oral, BID, Lala Valdes, MEDICAL ADMINISTRATIVE TECHNICIAN,250 mg at 10/18/24 1318 heparin (porcine) injection 5,000 Units, 5,000 Units, Subcutaneous, q8h RAFAT, Lala Valdes MEDICAL ADMINISTRATIVE TECHNICIAN, 5,000 Units at 10/18/24 1333 melatonin tablet 3 mg, 3 mg, Oral, Nightly, Lala Valdes APRN, 3 mg at 10/17/242013 NIFEdipine XL (Procardia XL) 24 hr tablet 60 mg, 60 mg, Oral, Daily, Leda Gaitan MD, 60 mg at 10/18/24 1318 polyethylene glycol (Miralax) packet 17 g, 17 g, Oral, BID, Lala Valdes MEDICAL ADMINISTRATIVE TECHNICIAN, 17 g at 10/18/24 1317 senna (Senokot) tablet 17.2 mg, 17.2 mg, Oral, Nightly PRN, Lala Valdes MEDICAL ADMINISTRATIVE TECHNICIAN, 17.2 mg at 10/16/24 2030 sertraline (Zoloft) tablet 75 mg, 75 mg, Oral, Daily, Lala Valdes MEDICAL ADMINISTRATIVE TECHNICIAN, 75 mg at 10/18/24 1317 Insert peripheral IV, , , Once AND Saline lock IV, , , Once AND sodium chloride 0.9 % flush10 mL, 10 mL, Intravenous, q12h, 10 mL at 10/13/24 1759 AND sodium chloride 0.9 % flush 10 mL, 10 mL, Intravenous, PRN, Lala Valdes, MEDICAL ADMINISTRATIVE TECHNICIAN traZODone (Desyrel) tablet 100 mg, 100 mg, Oral, Nightly, Lala Valdes, MEDICAL ADMINISTRATIVE TECHNICIAN, 100 mg at 10/17/242012 Facility-Administered Medications Ordered in Other Encounters: lidocaine-EPINEPHrine (PF) (Xylocaine W/EPI) 1 %-1: injection - Pyxis Override Pull, , , , lidocaine-EPINEPHrine (PF) (Xylocaine W/EPI) 1 %-1: injection - Pyxis Override Pull, , , , [2] No Known Allergies * Care Plan - Marilee Zamora RN - 10/18/2024 12:44 PM EDT Problem: Adult Inpatient Plan of Care Goal: Plan of Care Review Outcome: Ongoing, Progressing Flowsheets Taken 10/18/2024 1230 by Marilee Zamora, RN Progress: improving Outcome Evaluation: Patient will participate in his plan of care for the shift. Taken 10/17/2024 1142 by Goldie Marcial RN Plan of Care Reviewed With: patient Goal: Patient-Specific Goal (Individualized) Outcome: Ongoing, Progressing Flowsheets (Taken 10/18/2024 0800) Patient/Family-Specific Goals (Include Timeframe): Patient will remain injury/fall free within the shift Individualized Care Needs: safety Anxieties, Fears or Concerns: not concerned on HD Goal: Absence of Hospital-Acquired Illness or Injury Outcome: Ongoing, Progressing Intervention: Prevent Infection Flowsheets (Taken 10/18/2024 1230) Infection Prevention: equipment surfaces disinfected hand hygiene promoted Goal: Optimal Comfort and Wellbeing Outcome: Ongoing, Progressing Intervention: Provide Person-Centered Care Flowsheets (Taken 10/18/2024 1230) Trust Relationship/Rapport: care explained emotional support provided empathic listening provided thoughts/feelings acknowledged Problem: Skin Injury Risk Increased Goal: Skin Health and Integrity Outcome: Ongoing, Progressing Intervention: Promote and Optimize Oral Intake Flowsheets (Taken 10/18/2024 1230) Oral Nutrition Promotion: rest periods promoted Nutrition Interventions: food preferences provided Problem: Fall Injury Risk Goal: Absence of Fall and Fall-Related Injury Outcome: Ongoing, Progressing Intervention: Promote Injury-Free Environment Flowsheets (Taken 10/18/2024 1230) Safety Promotion/Fall Prevention: activity supervised fall prevention program maintained safety round/check completed Problem: Wound Goal: Skin Health and Integrity Outcome: Ongoing, Progressing Intervention: Optimize Skin Protection Flowsheets (Taken 10/18/2024 1230) Activity Management: activity adjusted per tolerance Pressure Reduction Techniques: heels elevated off bed Head of Bed (HOB) Positioning: HOB at 20-30 degrees Goal: Optimal Wound Healing Outcome: Ongoing, Progressing Intervention: Promote Wound Healing Flowsheets (Taken 10/18/2024 1230) Sleep/Rest Enhancement: natural light exposure provided noise level reduced Problem: Hemodialysis Goal: Safe, Effective Therapy Delivery Outcome: Ongoing, Progressing Intervention: Optimize Device Care and Function Flowsheets (Taken 10/18/2024 1230) Medication Review/Management: medications reviewed Goal: Effective Tissue Perfusion Outcome: Ongoing, Progressing Intervention: Optimize Blood Flow Flowsheets (Taken 10/18/2024 1230) Stabilization Measures: legs elevated Goal: Absence of Infection Signs and Symptoms Outcome: Ongoing, Progressing Intervention: Prevent or Manage Infection Flowsheets (Taken 10/18/2024 1230) Infection Management: aseptic technique maintained Fever Reduction/Comfort Measures: lightweight bedding lightweight clothing Infection Prevention: equipment surfaces disinfected hand hygiene promoted Problem: Self-Care Deficit Goal: Improved Ability to Complete Activities of Daily Living Outcome: Ongoing, Progressing Intervention: Promote Activity and Functional [place] Flowsheets (Taken 10/18/2024 1230) Activity Assistance Provided: assistance, 2 people Self-Care Promotion: BADL personal objects within reach independence encouraged Problem: Infection Goal: Absence of Infection Signs and Symptoms Outcome: Ongoing, Progressing Intervention: Prevent or Manage Infection Flowsheets (Taken 10/18/2024 1230) Infection Management: aseptic technique maintained Fever Reduction/Comfort Measures: lightweight bedding lightweight clothing Isolation Precautions: precautions maintained Problem: Diabetes Goal: Optimal Coping Outcome: Ongoing, Progressing Intervention: Support Wellbeing and Self-Management [place] Flowsheets (Taken 10/18/2024 1230) Supportive Measures: relaxation techniques promoted self-care encouraged verbalization of feelings encouraged Family/Support System Care: self-care encouraged support provided presence promoted Goal: Optimal Functional Ability Outcome: Ongoing, Progressing Intervention: Optimize Functional Ability Flowsheets (Taken 10/18/2024 1230) Activity Management: activity adjusted per tolerance Activity Assistance Provided: assistance, 2 people Assistive Device Utilized: front wheel walker Self-Care Promotion: BADL personal objects within reach independence encouraged Goal: Minimize Hypoglycemia Risk Outcome: Ongoing, Progressing Intervention: Minimize and Manage Hypoglycemia Flowsheets (Taken 10/18/2024 1230) Hypoglycemia Management: (Encouraged patient to eat.) other (see comments) Problem: Mobility Impairment Goal: Optimal Mobility Outcome: Ongoing, Progressing Intervention: Optimize Mobility Flowsheets (Taken 10/18/2024 1230) Activity Management: activity adjusted per tolerance Assistive Device Utilized: front wheel walker Positioning/Transfer Devices: pillows * Progress Notes - Sameera Garg MD - 10/18/2024 9:16 AM EDT Nephrology Progress Note Patient: Mundo Fernandez Admit Date: 09/30/2024 Subjective Reviewed the interval events, flowsheets, labs and the notes. Mr. Fernandez was evaluated at bedside this AM. No concerns at this time. Seen during iHD this AM, tolerating without issues. Objective Visit Vitals BP (!) 152/67 Pulse 68 Temp 36.4 ??C (97.5 ??F) Resp 16 Ht 1.778 m (5' 10 ) Wt 78.6 kg (173 lb 4.5 oz) SpO2 95% BMI 24.86 kg/m?? Smoking Status Never BSA 1.97 m?? Temp: [36.4 ??C (97.5 ??F)-36.7 ??C (98.1 ??F)] 36.4 ??C (97.5 ??F) Heart Rate: [68-81] 68 BP: (124-152)/(59-67) 152/67 Problem List Principal Problem: Declining functional status Active Problems: ESRD (end stage renal disease) on dialysis (CMS/HCC) Essential (primary) hypertension 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) Wears hearing aid in both ears At high risk for falls Insomnia, unspecified Chronic combined systolic (congestive) and diastolic (congestive) heart failure (CMS/HCC) Dementia (CMS/HCC) Chronic hepatitis C without hepatic coma (CMS/HCC) Arterial insufficiency (CMS/HCC) Gastroesophageal reflux disease without esophagitis Mixed hyperlipidemia Anxiety and depression Mild intellectual disabilities Sensorineural hearing loss, bilateral History of transmetatarsal amputation of foot (CMS/HCC) Electrolyte and fluid disorder Anemia in chronic kidney disease (CODE) Chronic kidney disease-mineral and bone disorder (CKD-MBD) 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 ESRD (end stage renal disease) (CMS/HCC) Medications: Current Medications: Current Scheduled Medications[1] Current Continuous Medications[2] Physical Exam: GEN: no acute distress, lying in bed SKIN : warm and dry, color normal, turgor normal, no lesions. RESPIRATORY/THORAX : Respirations non-labored, on room air CARDIOVASCULAR: Warm and well perfused GASTROINTESTINAL: soft, NT, ND EXTREMITIES: no LE edema, no rashes noted NEURO: Alert, hard of hearing, answers appropriately, follows commands ACCESS: RUE AVF Laboratory: No lab exists for component: ALB Lab Results Component Value Date USG 1.008 04/14/2023 FLORY >=8.5 (H) 04/14/2023 URINEPRO >=300 (A) 04/14/2023 GLUCOSEU 100 (A) 04/14/2023 BLOODU Trace (A) 04/14/2023 NITRITEU Negative 04/14/2023 URBC 4 - 10 (A) 04/14/2023 HYLCST 0 - 2 04/14/2023 BACTERIAU Present 04/14/2023 SQUAMOUS 3 - 5 04/14/2023 Lab Results Component Value Date NAPA 350 12/10/2018 NAUR 31 12/10/2018 CREATUR 158 12/10/2018 PROTUR 153 11/12/2018 UTPCR 1.5 (H) 11/12/2018 Lab Results Component Value Date FERRITIN 1,701 (H) 10/02/2024 TRANSFERNSAT 45 09/30/2024 IRON 66 09/30/2024 TIBC 146 (L) 09/30/2024 TRANSFERRIN 117 (L) 09/30/2024 Lab Results Component Value Date PTH 9 10/02/2024 VITD25 33.5 10/02/2024 Impression & Plan: Mundo Fernandez is a 62 y.o. male with ESRD on iHD MWF, T2DM, HTN, chronic HFrEF, PAD, HLD, IDD/dementia, depression/anxiety, insomnia, chronic HCV, DM foot ulcer c/b OM s/p bilateral transmetarsal amputation, and debility presented to [facility] on 09/30 after refusing care at his [place] [facility]. Nephrology consulted for dialysis. Assessment: #ESRD on iHD - MWF at [facility] Dr. Lucas - AccesS: RUAngel AVG - EDW 67.5 Kg #HTN #Renal Osteodystrophy; secondary hyperparathyroidism #Anemia in ESRD #Disorders of electrolytes and acid/base due to renal insufficiency #Hypervolemia in renal insufficiency #Debility #T2DM #HFrEF #Dementia #Intellectual and developmental delay Recommendations and Plan - Continue iHD MWF while admitted; 3hrs, BFR 300-400 mL/min, DFR 600-800 mL/min, 3.5K, 2.5Ca, 32HCO3, 136Na, UF 1L, T35.5 - Iron parameters at goal; will follow for ANGELITA requirements - Renal diet as tolerated - Sevelamer held with Phos <4; will follow for Phos binder requirements - Strict I/Os and Daily weights - Management of other acute/chronic conditions per primary team - Avoid NSAIDs and other nephrotoxic mediations; Renally dose medications for ESRD on iHD. Please feel free to reach out if you have any questions or concerns. Sameera Garg MD Nephrology Fellow PGY-5 [1] aspirin, 81 mg, Oral, Daily atorvastatin, 40 mg, Oral, Nightly cadexomer iodine, , Topical, Daily carvedilol, 25 mg, Oral, BID clopidogrel, 75 mg, Oral, Daily divalproex sprinkle, 250 mg, Oral, BID heparin (porcine), 5,000 Units, Subcutaneous, q8h RAFAT melatonin, 3 mg, Oral, Nightly NIFEdipine XL, 60 mg, Oral, Daily polyethylene glycol, 17 g, Oral, BID sertraline, 75 mg, Oral, Daily sodium chloride, 10 mL, Intravenous, q12h traZODone, 100 mg, Oral, Nightly [2] Cosigned by Jerrell Jurado MD at 10/21/2024 2:12 PM EDT Associated attestation - Jerrell Jurado MD - 10/21/2024 2:12 PM EDT I saw and evaluated the patient with the resident/fellow. I discussed the case with the resident/fellow and agree with the findings and plan as documented. * Care Plan - Nelli Mayberry RN - 10/17/2024 10:18 PM EDT Problem: Adult Inpatient Plan of Care Goal: Plan of Care Review Outcome: Ongoing, Progressing Flowsheets Taken 10/17/20242206 by Nelli Mayberry RN Progress: improving Outcome Evaluation: Patient will remain free from injury throughout shift. Taken 10/17/2024 1142 by Goldie Marcial RN Plan of Care Reviewed With: patient Goal: Patient-Specific Goal (Individualized) Outcome: Ongoing, Progressing Flowsheets (Taken 10/17/20242206) Patient/Family-Specific Goals (Include Timeframe): Patient will remain free from falls throughout this shift. Individualized Care Needs: Patient safety Anxieties, Fears or Concerns: Patient's only concern was getting a snack and drink. Goal: Absence of Hospital-Acquired Illness or Injury Outcome: Ongoing, Progressing Intervention: Identify and Manage Fall Risk Flowsheets (Taken 10/17/20242206) Safety Promotion/Fall Prevention: clutter-free environment maintained Intervention: Prevent Skin Injury Flowsheets (Taken 10/17/20242206) Body Position: weight shifting Skin Protection: skin sealant/moisture barrier applied Intervention: Prevent and Manage VTE (Venous Thromboembolism) Risk Flowsheets (Taken 10/17/20242206) VTE Prevention/Management: medication Intervention: Prevent Infection Flowsheets (Taken 10/17/20242206) Infection Prevention: single patient room provided Goal: Optimal Comfort and Wellbeing Outcome: Ongoing, Progressing Intervention: Monitor Pain and Promote Comfort Flowsheets (Taken 10/17/20242012) Pain Management Interventions: medication (see MAR) Intervention: Provide Person-Centered Care Flowsheets (Taken 10/17/20242206) Trust Relationship/Rapport: empathic listening provided Goal: Readiness for Transition of Care Outcome: Ongoing, Progressing * Progress Notes - Jeannie Valle MD - 10/17/2024 3:41 PM EDT Images from the original note were not included. [facility] Inpatient Progress Note Patient: Mundo Fernandez PCP: Leonard Botello MD Date: 10/17/2024 Subjective No new concerns reported by staff. Awaiting placement. Laying on bed comfortably. No new complaints. Not in any distress. Review of Systems Unable to perform ROS: Psychiatric disorder Objective INPATENT MEDICATIONS Current Medications[1] ALLERGIES Allergies[2] 24 HOUR VITALS Temp: [36.6 ??C (97.8 ??F)] 36.6 ??C (97.8 ??F) Heart Rate: [72-79] 74 BP: (124-175)/(53-72) 124/59 INTAKE/OUTPUT No intake or output data in the 24 hours ending 10/17/24 1541 Physical Exam Constitutional: Appearance: He is normal weight. He is not toxic-appearing. Comments: Minimally verbal HENT: Head: Normocephalic. Eyes: Extraocular Movements: Extraocular movements intact. Cardiovascular: Rate and Rhythm: Normal rate and regular rhythm. Pulmonary: Effort: Pulmonary effort is normal. Breath sounds: Normal breath sounds. Abdominal: General: Abdomen is flat. There is no distension. Musculoskeletal: Cervical back: Normal range of motion and neck supple. Skin: General: Skin is warm. Findings: No lesion. Neurological: Mental Status: He is alert. Psychiatric: Mood and Affect: Affect is flat. Cognition and Memory: Cognition is impaired. REVIEW OF LABORATORY DATA Lab Results Component Value Date WBC 7.44 10/02/2024 HGB 8.2 (L) 10/09/2024 HCT 23.7 (L) 10/09/2024 MCV 90 10/02/2024 PLT 119 (L) 10/02/2024 Lab Results Component Value Date GLUCOSE 96 10/07/2024 CALCIUM 7.2 (L) 10/07/2024 NA 125 (L) 10/07/2024 K 4.1 10/07/2024 CO2 23 10/07/2024 CL 92 (L) 10/07/2024 BUN 41 (H) 10/07/2024 CREATININE 6.91 (H) 10/07/2024 Lab Results Component Value Date ALT 6 (L) 09/30/2024 AST 13 09/30/2024 ALKPHOS 42 09/30/2024 BILITOT 0.6 09/30/2024 Lab Results Component Value Date INR 1.0 12/07/2022 REVIEW OF IMAGING STUDIES XR Chest 1 View Narrative: CLINICAL INDICATION: Role-out TB for outpatient dialysis chair TECHNIQUE: XR CHEST 1 VIEW COMPARISON: August 25, 2023 FINDINGS: Stable cardiac silhouette and mediastinal contours. Stable bilateral pleural effusions versus thickening. Stable bilateral basilar atelectasis. No consolidations or pneumothorax. Impression: No visualized airspace disease. CRITICAL RESULT: No. COMMUNICATION: Per this written report. Preliminary report signed by Seng Martinez MD on 10/17/2024 2:39 PM By electronically signing this report, I, the attending physician, attest that I have personally reviewed the images/data for the above examination(s) and agree with the final edited report. Drafted by Seng Martinez MD on 10/17/2024 2:37 PM Final report signed by Fortunato Willett MD on 10/17/2024 2:49 PM REVIEW OF PROCEDURES Assessment and Plan: Aakash Fernandez is a [place] 64 y.o. male with past history of ESRD on HD MWF, T2DM, HTN, chronic HFrEF, PAD, HLD, IDD/dementia, depression/anxiety, insomnia, chronic HCV, DM foot ulcer c/b OM s/p bilateral transmetarsal amputation, and debility sent [place] [facility] to ED for medical evaluationafter refusing care. Declining functional status - Transferred to [place] [facility] a [place] ago and since arrival refusing HD, to eat, participate, or take medications - sent to ED for medical evaluation and need for higher level of assist/unable to care for self/non-compliance - afebrile, VSS, no acute complaints PLAN - PT/OT consult re: placement - legal guardian is his brother, Chris Fernandez, #[phone] (not answering calls since patient admission) Essential (primary) hypertension - increased carvedilol to 25 mg twice daily, nifedipine XL 60 mg daily (hold for BP <120/80 on dialysis days) At high risk for falls - wheelchair dependent, fall precautions ESRD (end stage renal disease) on dialysis ([facility]) - HD (MWF) - renally dose meds based on EGFR - strict I/O, daily weight Electrolyte and fluid disorder Hyponatremia Chronic kidney disease-mineral and bone disorder (CKD-MBD) - continue Renvela 800 mg TID with meals Anemia in chronic kidney disease (CODE) - Hgb stable, transfuse to keep >7 Type 2 diabetes mellitus with chronic kidney disease on chronic dialysis ([facility]) - last A1c 6.3 PLAN - will dc SSI given minimal Insulin need Dementia ([facility]) - Psych recommended; Asenapine 3.8 mg daily restarted (not on formulary his caregiver brought his patches) Mild intellectual disabilities - last neuropsych exam in 2023 found to not have capacity, brother is legal guardian - continue Depakote Sprinkle 250 mg twice daily Anxiety and depression - continue Sertraline 75 mg daily Insomnia, unspecified - continue trazodone 100 mg at bedtime, melatonin 3 mg at bedtime Arterial insufficiency ([facility]) - continue aspirin 81 mg daily, clopidogrel 75 mg daily Mixed hyperlipidemia - continue atorvastatin 40 mg at bedtime 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 - continue statin, ASA, clopidogrel as above Gastroesophageal reflux disease without esophagitis - continue daily PPI Sensorineural hearing loss, bilateral Wears hearing aid in both ears - not present with patient on admission, have tried to call caregiver to bring them to hospital with no luck Chronic combined systolic (congestive) and diastolic (congestive) heart failure ([facility]) - ECHO 06/27/2022: EF 45%, abnormal diastolic dysfunction - strict I/O, 2 L fluid restriction, cardiac/renal/CCHO2 diet Chronic hepatitis C without hepatic coma ([facility]) - HCV RNA PCR not detected 07/13/2023 History of transmetatarsal amputation of foot ([facility]) - chronic OM 2/2 DM foot ulcers s/p bilateral transmetarsal amputation Dispo : pending placement. Per CM- at [facility] indicates patient has been approved for LTC pending [facility] chair. [facility] [phone] is requesting a CXR, TB clearence, Hepatitis B Total Core Antibody (HbcAb) [1] Current Facility-Administered Medications: acetaminophen (Tylenol) tablet 650 mg, 650 mg, Oral, q6h PRN, Lucio, Gitana B, MEDICAL ADMINISTRATIVE TECHNICIAN aspirin chewable tablet 81 mg, 81 mg, Oral, Daily, Lucio, Gitana B, MEDICAL ADMINISTRATIVE TECHNICIAN, 81 mg at 10/17/24 0843 atorvastatin (Lipitor) tablet 40 mg, 40 mg, Oral, Nightly, Lucio, Gitana B, MEDICAL ADMINISTRATIVE TECHNICIAN, 40 mg at 10/16/24 2030 bisacodyl (Dulcolax) EC tablet 10 mg, 10 mg, Oral, Daily PRN, Lucio, Gitana B, MEDICAL ADMINISTRATIVE TECHNICIAN, 10 mg at 10/17/24 0843 cadexomer iodine (Iodosorb) 0.9 % gel, , Topical, Daily, Tana Wooten MD, Given at 10/16/24 1313 carvedilol (Coreg) tablet 25 mg, 25 mg, Oral, BID, Leda Gaitan MD, 25 mg at 10/17/24 0843 clopidogrel (Plavix) tablet 75 mg, 75 mg, Oral, Daily, Lucio, Gitana B, MEDICAL ADMINISTRATIVE TECHNICIAN, 75 mg at 10/17/24 0842 glucose (Glutose) 40 % oral gel 15-30 grams of glucose, 15-30 grams of glucose, Sublingual, q15 minPRN OR dextrose 10 % (D10W) bolus 125 mL, 125 mL, Intravenous, q15 min PRN OR dextrose 10 %(D10W) bolus 250 mL, 250 mL, Intravenous, q15 min PRN OR glucagon (human recombinant) injection1 mg, 1 mg, Intramuscular, q15 min PRN, Lucio, Gitana B, MEDICAL ADMINISTRATIVE TECHNICIAN divalproex sprinkle (Depakote Sprinkle) DR capsule 250 mg, 250 mg, Oral, BID, Lucio, Gitana B, MEDICAL ADMINISTRATIVE TECHNICIAN,250 mg at 10/17/24 0843 heparin (porcine) injection 5,000 Units, 5,000 Units, Subcutaneous, q8h RAFAT, Lucio, Gitana B, MEDICAL ADMINISTRATIVE TECHNICIAN, 5,000 Units at 10/17/24 1426 melatonin tablet 3 mg, 3 mg, Oral, Nightly, Lucio, Gitana B, MEDICAL ADMINISTRATIVE TECHNICIAN, 3 mg at 10/16/242029 NIFEdipine XL (Procardia XL) 24 hr tablet 60 mg, 60 mg, Oral, Daily, Leda Gaitan MD, 60 mg at 10/17/24 0843 polyethylene glycol (Miralax) packet 17 g, 17 g, Oral, BID, Lucio Gitana B, MEDICAL ADMINISTRATIVE TECHNICIAN, 17 g at 10/17/24 0843 senna (Senokot) tablet 17.2 mg, 17.2 mg, Oral, Nightly PRN, Lala Valdes B, MEDICAL ADMINISTRATIVE TECHNICIAN, 17.2 mg at 10/16/242029 sertraline (Zoloft) tablet 75 mg, 75 mg, Oral, Daily, Lala Valdes, MEDICAL ADMINISTRATIVE TECHNICIAN, 75 mg at 10/17/24 0842 Insert peripheral IV, , , Once AND Saline lock IV, , , Once AND sodium chloride 0.9 % flush10 mL, 10 mL, Intravenous, q12h, 10 mL at 10/13/24 1759 AND sodium chloride 0.9 % flush 10 mL, 10 mL, Intravenous, PRN, Lucio, Gitana B, MEDICAL ADMINISTRATIVE TECHNICIAN traZODone (Desyrel) tablet 100 mg, 100 mg, Oral, Nightly, Lala Valdes, MEDICAL ADMINISTRATIVE TECHNICIAN, 100 mg at 10/16/242029 Facility-Administered Medications Ordered in Other Encounters: lidocaine-EPINEPHrine (PF) (Xylocaine W/EPI) 1 %-1:007575 injection - Pyxis Override Pull, , , , lidocaine-EPINEPHrine (PF) (Xylocaine W/EPI) 1 %-1:470778 injection - Pyxis Override Pull, , , , [2] No Known Allergies * Progress Notes - Birdie Damico RN - 10/17/2024 1:17 PM EDT Brooke, admissions liaison at [facility] indicates patient has been approved for LTC pending [facility] chair. [facility] [phone] is requesting a CXR, TB clearence,Hepatitis B Total Core Antibody (HbcAb). Team MD made aware. Birdie Damico RN * Care Plan - Falls, Goldie Parks RN - 10/17/2024 11:44 AM EDT Problem: Adult Inpatient Plan of Care Goal: Plan of Care Review Outcome: Ongoing, Progressing Flowsheets (Taken 10/17/2024 1142) Plan of Care Reviewed With: patient Goal: Patient-Specific Goal (Individualized) Outcome: Ongoing, Progressing Flowsheets (Taken 10/17/2024 0800) Patient/Family-Specific Goals (Include Timeframe): patient will remain free of fall or injury this shift Individualized Care Needs: safety Anxieties, Fears or Concerns: denies Goal: Absence of Hospital-Acquired Illness or Injury Outcome: Ongoing, Progressing Intervention: Identify and Manage Fall Risk Flowsheets (Taken 10/17/2024 08) Safety Promotion/Fall Prevention: activity supervised assistive device/personal items within reach clutter-free environment maintained safety round/check completed room organization consistent Goal: Optimal Comfort and Wellbeing Outcome: Ongoing, Progressing Intervention: Provide Person-Centered Care Flowsheets (Taken 10/17/2024 08) Trust Relationship/Rapport: care explained reassurance provided Goal: Readiness for Transition of Care Outcome: Ongoing, Progressing Intervention: Mutually Develop Transition Plan Flowsheets (Taken 10/17/2024 1142) Current Outpatient/Agency/Support Group: [facility] Readmission Within the Last 30 Days: unable to assess Problem: Skin Injury Risk Increased Goal: Skin Health and Integrity Outcome: Ongoing, Progressing Problem: Fall Injury Risk Goal: Absence of Fall and Fall-Related Injury Outcome: Ongoing, Progressing Intervention: Promote Injury-Free Environment Flowsheets (Taken 10/17/2024 08) Safety Promotion/Fall Prevention: activity supervised assistive device/personal items within reach clutter-free environment maintained safety round/check completed room organization consistent Problem: Wound Goal: Skin Health and Integrity Outcome: Ongoing, Progressing Goal: Optimal Wound Healing Outcome: Ongoing, Progressing Intervention: Promote Wound Healing Flowsheets (Taken 10/17/2024 08) Sleep/Rest Enhancement: awakenings minimized consistent schedule promoted Problem: Hemodialysis Goal: Safe, Effective Therapy Delivery Outcome: Ongoing, Progressing Goal: Effective Tissue Perfusion Outcome: Ongoing, Progressing Goal: Absence of Infection Signs and Symptoms Outcome: Ongoing, Progressing Intervention: Prevent or Manage Infection Flowsheets (Taken 10/17/2024799) Infection Management: aseptic technique maintained Fever Reduction/Comfort Measures: lightweight bedding Infection Prevention: rest/sleep promoted hand hygiene promoted Problem: Self-Care Deficit Goal: Improved Ability to Complete Activities of Daily Living Outcome: Ongoing, Progressing Problem: Infection Goal: Absence of Infection Signs and Symptoms Outcome: Ongoing, Progressing Intervention: Prevent or Manage Infection Flowsheets (Taken 10/17/2024 08) Infection Management: aseptic technique maintained Fever Reduction/Comfort Measures: lightweight bedding Isolation Precautions: precautions maintained Problem: Diabetes Goal: Optimal Coping Outcome: Ongoing, Progressing Intervention: Support Wellbeing and Self-Management Success Flowsheets (Taken 10/17/2024799) Supportive Measures: self-care encouraged positive reinforcement provided Family/Support System Care: self-care encouraged Goal: Optimal Functional Ability Outcome: Ongoing, Progressing Intervention: Optimize Functional Ability Flowsheets Taken 10/17/2024799 by Goldie Marcial, RN Activity Management: activity adjusted per tolerance Activity Assistance Provided: assistance, 2 people Adaptive Equipment Use: use encouraged Self-Care Promotion: independence encouraged Taken 10/12/20241899 by Day Nicole CNA Assistive Device Utilized: front wheel walker Goal: Blood Glucose Level Within Target Range Outcome: Ongoing, Progressing Intervention: Optimize Glycemic Control Flowsheets (Taken 10/17/2024799) Hyperglycemia Management: blood glucose monitored Goal: Minimize Hypoglycemia Risk Outcome: Ongoing, Progressing Intervention: Minimize and Manage Hypoglycemia Flowsheets (Taken 10/17/2024799) Hypoglycemia Management: blood glucose monitored Problem: Mobility Impairment Goal: Optimal Mobility Outcome: Ongoing, Progressing Intervention: Optimize Mobility Flowsheets Taken 10/17/2024799 by Goldie Marcial, RN Activity Management: activity adjusted per tolerance Positioning/Transfer Devices: pillows Taken 10/12/20241899 by Day Nicole CNA Assistive Device Utilized: front wheel walker * Progress Notes - Sameera Garg MD - 10/17/2024 10:57 AM EDT Nephrology Progress Note Patient: Mundo Fernandez Admit Date: 09/30/2024 Subjective Reviewed the interval events, flowsheets, labs and the notes. Mr. Fernandez was evaluated at bedside this AM. Had iHD yesterday with 2L UF, tolerated well without concerns. Net negative 1.4L yesterday. Objective Visit Vitals BP 134/61 Pulse 72 Temp 36.6 ??C (97.8 ??F) Resp 16 Ht 1.778 m (5' 10 ) Wt 79.5 kg (175 lb 4.3 oz) SpO2 91% BMI 25.15 kg/m?? Smoking Status Never BSA 1.98 m?? Temp: [36.3 ??C (97.3 ??F)-36.6 ??C (97.9 ??F)] 36.6 ??C (97.8 ??F) Heart Rate: [72-91] 72 Resp: [15-16] 16 BP: (122-178)/(52-72) 134/61 Problem List Principal Problem: Declining functional status Active Problems: ESRD (end stage renal disease) on dialysis ([facility]) Essential (primary) hypertension Type 2 diabetes mellitus with chronic kidney disease on chronic dialysis ([facility]/HCC) Wears hearing aid in both ears At high risk for falls Insomnia, unspecified Chronic combined systolic (congestive) and diastolic (congestive) heart failure (CMS/HCC) Dementia ([facility]/HCC) Chronic hepatitis C without hepatic coma ([facility]/HCC) Arterial insufficiency (CMS/HCC) Gastroesophageal reflux disease without esophagitis Mixed hyperlipidemia Anxiety and depression Mild intellectual disabilities Sensorineural hearing loss, bilateral History of transmetatarsal amputation of foot (CMS/HCC) Electrolyte and fluid disorder Anemia in chronic kidney disease (CODE) 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 RESPIRATORY/THORAX : Respirations non-labored, on room air CARDIOVASCULAR: Warm and well perfused GASTROINTESTINAL: soft, NT, ND EXTREMITIES: no LE edema, no rashes noted NEURO: Alert, hard of hearing, answers appropriately, follows commands ACCESS: RUE AVF Laboratory: No lab exists for component: ALB Lab Results Component Value Date USG 1.008 04/14/2023 FLORY >=8.5 (H) 04/14/2023 URINEPRO >=300 (A) 04/14/2023 GLUCOSEU 100 (A) 04/14/2023 BLOODU Trace (A) 04/14/2023 NITRITEU Negative 04/14/2023 URBC 4 - 10 (A) 04/14/2023 HYLCST 0 - 2 04/14/2023 BACTERIAU Present 04/14/2023 SQUAMOUS 3 - 5 04/14/2023 Lab Results Component Value Date NAPA 350 12/10/2018 NAUR 31 12/10/2018 CREATUR 158 12/10/2018 PROTUR 153 11/12/2018 UTPCR 1.5 (H) 11/12/2018 Lab Results Component Value Date FERRITIN 1,701 (H) 10/02/2024 TRANSFERNSAT 45 09/30/2024 IRON 66 09/30/2024 TIBC 146 (L) 09/30/2024 TRANSFERRIN 117 (L) 09/30/2024 Lab Results Component Value Date PTH 9 10/02/2024 VITD25 33.5 10/02/2024 Impression & Plan: Mundo Fernandez is a 62 y.o. male with ESRD on iHD MWF, T2DM, HTN, chronic HFrEF, PAD, HLD, IDD/dementia, depression/anxiety, insomnia, chronic HCV, DM foot ulcer c/b OM s/p bilateral transmetarsal amputation, and debility presented to [facility] on 09/30 after refusing care at his [place] [facility]. Nephrology consulted for dialysis. Assessment: #ESRD on iHD - MWF at [facility] [address] Lucas - AccesS: ISAURO VELA - EDW 67.5 Kg #HTN #Renal Osteodystrophy; secondary hyperparathyroidism #Anemia in ESRD #Disorders of electrolytes and acid/base due to renal insufficiency #Hypervolemia in renal insufficiency #Debility #T2DM #HFrEF #Dementia #Intellectual and developmental delay Recommendations and Plan - Continue iHD MWF while admitted; 3hrs, BFR 300-400 mL/min, DFR 600-800 mL/min, 3.5K, 2.5Ca, 32HCO3, 136Na, UF 1L, T35.5 - Iron parameters at goal; will follow for ANGELITA requirements - Renal diet as tolerated - Sevelamer held with Phos <4; will follow for Phos binder requirements - Strict I/Os and Daily weights - Management of other acute/chronic conditions per primary team - Avoid NSAIDs and other nephrotoxic mediations; Renally dose medications for ESRD on iHD. Please feel free to reach out if you have any questions or concerns. Sameera Garg MD Nephrology Fellow PGY-5 [1] aspirin, 81 mg, Oral, Daily atorvastatin, 40 mg, Oral, Nightly cadexomer iodine, , Topical, Daily carvedilol, 25 mg, Oral, BID clopidogrel, 75 mg, Oral, Daily divalproex sprinkle, 250 mg, Oral, BID heparin (porcine), 5,000 Units, Subcutaneous, q8h RAFAT melatonin, 3 mg, Oral, Nightly NIFEdipine XL, 60 mg, Oral, Daily polyethylene glycol, 17 g, Oral, BID sertraline, 75 mg, Oral, Daily sodium chloride, 10 mL, Intravenous, q12h traZODone, 100 mg, Oral, Nightly [2] Cosigned by Sherry Hinojosa MD at 10/18/2024 2:02 PM EDT Associated attestation - Sherry Hinojosa MD - 10/18/2024 2:02 PM EDT I saw and evaluated the patient with the resident/fellow. I discussed the case with the resident/fellow and agree with the findings and plan as documented. * Care Plan - Carri Chand - 10/16/2024 11:23 PM EDT Problem: Adult Inpatient Plan of Care Goal: Plan of Care Review 10/16/20242323 by Carri Chand Outcome: Ongoing, Progressing 10/16/20242319 by Carri Chand Flowsheets (Taken 10/16/20242319) Progress: improving Outcome Evaluation: Patient will have BM this shift Plan of Care Reviewed With: patient Goal: Patient-Specific Goal (Individualized) 10/16/20242323 by Carri Chand Outcome: Ongoing, Progressing 10/16/20242319 by Carri Chand Flowsheets (Taken 10/16/20241999) Patient/Family-Specific Goals (Include Timeframe): patient will maintain fluid restriction and remain safe during the shift Individualized Care Needs: safety, skin integrity,fluid restriction Anxieties, Fears or Concerns: none stated Goal: Absence of Hospital-Acquired Illness or Injury Outcome: Ongoing, Progressing Intervention: Identify and Manage Fall Risk Flowsheets (Taken 10/16/20241999) Safety Promotion/Fall Prevention: fall prevention program maintained activity supervised clutter-free environment maintained safety round/check completed lighting adjusted room organization consistent Intervention: Prevent Skin Injury Flowsheets (Taken 10/16/20241999) Body Position: heels elevated Skin Protection: incontinence pads utilized Intervention: Prevent and Manage VTE (Venous Thromboembolism) Risk Flowsheets (Taken 10/16/20241999) VTE Prevention/Management: medication Intervention: Prevent Infection Flowsheets (Taken 10/16/20242319) Infection Prevention: rest/sleep promoted hand hygiene promoted Problem: Fall Injury Risk Goal: Absence of Fall and Fall-Related Injury Outcome: Ongoing, Progressing Intervention: Identify and Manage Contributors Flowsheets (Taken 10/16/20242319) Medication Review/Management: medications reviewed Self-Care Promotion: independence encouraged BADL personal objects within reach Intervention: Promote Injury-Free Environment Flowsheets (Taken 10/16/20241999) Safety Promotion/Fall Prevention: fall prevention program maintained activity supervised clutter-free environment maintained safety round/check completed lighting adjusted room organization consistent Problem: Wound Goal: Skin Health and Integrity Outcome: Ongoing, Progressing Intervention: Optimize Skin Protection Flowsheets Taken 10/16/20242319 Pressure Reduction Techniques: frequent weight shift encouraged heels elevated off bed Pressure Reduction Devices: heel offloading device utilized positioning supports utilized Skin Protection: frequent weight shift encouraged heel offloading device utilized incontinence pads utilized Taken 10/16/20241999 Activity Management: activity adjusted per tolerance Head of Bed (HOB) Positioning: HOB elevated Goal: Optimal Wound Healing Outcome: Ongoing, Progressing Intervention: Promote Wound Healing Flowsheets (Taken 10/16/20242319) Sleep/Rest Enhancement: relaxation techniques promoted noise level reduced awakenings minimized Problem: Hemodialysis Goal: Safe, Effective Therapy Delivery Outcome: Ongoing, Progressing Intervention: Optimize Device Care and Function Flowsheets (Taken 10/16/20240) Medication Review/Management: medications reviewed Goal: Effective Tissue Perfusion Outcome: Ongoing, Progressing Intervention: Optimize Blood Flow Flowsheets (Taken 10/16/20242319) Stabilization Measures: legs elevated Goal: Absence of Infection Signs and Symptoms Outcome: Ongoing, Progressing Intervention: Prevent or Manage Infection Flowsheets (Taken 10/16/20242319) Infection Management: aseptic technique maintained Fever Reduction/Comfort Measures: lightweight bedding lightweight clothing Infection Prevention: rest/sleep promoted hand hygiene promoted Problem: Self-Care Deficit Goal: Improved Ability to Complete Activities of Daily Living Outcome: Ongoing, Progressing Intervention: Promote Activity and Functional [place] Flowsheets Taken 10/16/20242319 Self-Care Promotion: independence encouraged BADL personal objects within reach Taken 10/16/20241999 Activity Assistance Provided: assistance, 2 people Problem: Infection Goal: Absence of Infection Signs and Symptoms Outcome: Ongoing, Progressing Intervention: Prevent or Manage Infection Flowsheets Taken 10/16/20242319 Infection Management: aseptic technique maintained Fever Reduction/Comfort Measures: lightweight bedding lightweight clothing Taken 10/16/20241999 Isolation Precautions: precautions maintained Problem: Diabetes Goal: Optimal Coping Outcome: Ongoing, Progressing Intervention: Support Wellbeing and Self-Management Success Flowsheets (Taken 10/16/20242319) Supportive Measures: active listening utilized self-care encouraged Family/Support System Care: support provided Goal: Optimal Functional Ability Outcome: Ongoing, Progressing Intervention: Optimize Functional Ability Flowsheets Taken 10/16/20242319 Self-Care Promotion: independence encouraged BADL personal objects within reach Taken 10/16/20241999 Activity Management: activity adjusted per tolerance Activity Assistance Provided: assistance, 2 people Goal: Blood Glucose Level Within Target Range Outcome: Ongoing, Progressing Intervention: Optimize Glycemic Control Flowsheets (Taken 10/16/20240) Hyperglycemia Management: blood glucose monitored Goal: Minimize Hypoglycemia Risk Outcome: Ongoing, Progressing Intervention: Minimize and Manage Hypoglycemia Flowsheets (Taken 10/16/20242319) Hypoglycemia Management: blood glucose monitored Problem: Mobility Impairment Goal: Optimal Mobility Outcome: Ongoing, Progressing Intervention: Optimize Mobility Flowsheets Taken 10/16/20242319 Positioning/Transfer Devices: pillows in use Taken 10/16/20241999 Activity Management: activity adjusted per tolerance * Care Plan - April Merida RN - 10/16/2024 3:40 PM EDT Problem: Adult Inpatient Plan of Care Goal: Plan of Care Review Outcome: Ongoing, Progressing Flowsheets (Taken 10/16/2024 1535) Progress: improving Outcome Evaluation: Patient will have a BM thi shift Plan of Care Reviewed With: patient Goal: Patient-Specific Goal (Individualized) Outcome: Ongoing, Progressing Flowsheets (Taken 10/16/2024 0800) Patient/Family-Specific Goals (Include Timeframe): Patient will tolerate HD session during this shift Individualized Care Needs: hemodialysis Anxieties, Fears or Concerns: none stated Goal: Absence of Hospital-Acquired Illness or Injury Outcome: Ongoing, Progressing Intervention: Identify and Manage Fall Risk Flowsheets (Taken 10/16/2024 0800) Safety Promotion/Fall Prevention: activity supervised fall prevention program maintained lighting adjusted clutter-free environment maintained safety round/check completed nonskid shoes/slippers when out of bed Intervention: Prevent Skin Injury Flowsheets Taken 10/16/2024 1535 Skin Protection: incontinence pads utilized Taken 10/16/2024 1300 Body Position: right turned Intervention: Prevent and Manage VTE (Venous Thromboembolism) Risk Flowsheets (Taken 10/16/2024 0800) VTE Prevention/Management: medication Intervention: Prevent Infection Flowsheets (Taken 10/16/2024 1535) Infection Prevention: hand hygiene promoted rest/sleep promoted Goal: Optimal Comfort and Wellbeing Outcome: Ongoing, Progressing Intervention: Monitor Pain and Promote Comfort Flowsheets (Taken 10/14/2024 1430) Pain Management Interventions: pillow support provided position adjusted Intervention: Provide Person-Centered Care Flowsheets (Taken 10/14/2024 1430) Trust Relationship/Rapport: care explained choices provided questions answered questions encouraged Problem: Skin Injury Risk Increased Goal: Skin Health and Integrity Outcome: Ongoing, Progressing Intervention: Optimize Skin Protection Flowsheets Taken 10/16/2024 1535 Pressure Reduction Techniques: frequent weight shift encouraged heels elevated off bed Pressure Reduction Devices: positioning supports utilized heel offloading device utilized Skin Protection: incontinence pads utilized Taken 10/16/2024 0800 Activity Management: activity adjusted per tolerance Head of Bed (HOB) Positioning: HOB elevated Intervention: Promote and Optimize Oral Intake Flowsheets (Taken 10/16/2024 1535) Oral Nutrition Promotion: rest periods promoted Nutrition Interventions: frequent small meals provided Problem: Fall Injury Risk Goal: Absence of Fall and Fall-Related Injury Outcome: Ongoing, Progressing Intervention: Identify and Manage Contributors Flowsheets (Taken 10/16/2024 153) Medication Review/Management: medications reviewed Self-Care Promotion: independence encouraged BADL personal objects within reach Intervention: Promote Injury-Free Environment Flowsheets (Taken 10/16/2024 0800) Safety Promotion/Fall Prevention: activity supervised fall prevention program maintained lighting adjusted clutter-free environment maintained safety round/check completed nonskid shoes/slippers when out of bed Problem: Wound Goal: Skin Health and Integrity Outcome: Ongoing, Progressing Intervention: Optimize Skin Protection Flowsheets Taken 10/16/2024 153 Pressure Reduction Techniques: frequent weight shift encouraged heels elevated off bed Pressure Reduction Devices: positioning supports utilized heel offloading device utilized Skin Protection: frequent weight shift encouraged heel offloading device utilized incontinence pads utilized Taken 10/16/2024 0800 Activity Management: activity adjusted per tolerance Head of Bed (HOB) Positioning: HOB elevated Goal: Optimal Wound Healing Outcome: Ongoing, Progressing Intervention: Promote Wound Healing Flowsheets (Taken 10/16/2024 1535) Sleep/Rest Enhancement: relaxation techniques promoted noise level reduced awakenings minimized Problem: Hemodialysis Goal: Safe, Effective Therapy Delivery Outcome: Ongoing, Progressing Intervention: Optimize Device Care and Function Flowsheets (Taken 10/16/2024 153) Medication Review/Management: medications reviewed Goal: Effective Tissue Perfusion Outcome: Ongoing, Progressing Intervention: Optimize Blood Flow Flowsheets (Taken 10/16/2024 1535) Stabilization Measures: legs elevated Goal: Absence of Infection Signs and Symptoms Outcome: Ongoing, Progressing Intervention: Prevent or Manage Infection Flowsheets (Taken 10/16/2024 1535) Infection Management: aseptic technique maintained Fever Reduction/Comfort Measures: lightweight bedding lightweight clothing Infection Prevention: hand hygiene promoted rest/sleep promoted Problem: Self-Care Deficit Goal: Improved Ability to Complete Activities of Daily Living Outcome: Ongoing, Progressing Intervention: Promote Activity and Functional [place] Flowsheets (Taken 10/16/2024 1535) Activity Assistance Provided: assistance, 1 person Adaptive Equipment Use: use encouraged Self-Care Promotion: independence encouraged BADL personal objects within reach Problem: Infection Goal: Absence of Infection Signs and Symptoms Outcome: Ongoing, Progressing Intervention: Prevent or Manage Infection Flowsheets (Taken 10/16/2024 1535) Infection Management: aseptic technique maintained Fever Reduction/Comfort Measures: lightweight bedding lightweight clothing Problem: Diabetes Goal: Optimal Coping Outcome: Ongoing, Progressing Intervention: Support Wellbeing and Self-Management Success Flowsheets (Taken 10/16/2024 1535) Supportive Measures: active listening utilized relaxation techniques promoted self-care encouraged Family/Support System Care: support provided Goal: Optimal Functional Ability Outcome: Ongoing, Progressing Intervention: Optimize Functional Ability Flowsheets Taken 10/16/2024 1535 Activity Assistance Provided: assistance, 1 person Adaptive Equipment Use: use encouraged Self-Care Promotion: independence encouraged BADL personal objects within reach Taken 10/16/2024 0800 Activity Management: activity adjusted per tolerance Goal: Blood Glucose Level Within Target Range Outcome: Ongoing, Progressing Intervention: Optimize Glycemic Control Flowsheets (Taken 10/16/2024 1535) Hyperglycemia Management: blood glucose monitored Goal: Minimize Hypoglycemia Risk Outcome: Ongoing, Progressing Intervention: Minimize and Manage Hypoglycemia Flowsheets (Taken 10/16/2024 1535) Hypoglycemia Management: blood glucose monitored Problem: Mobility Impairment Goal: Optimal Mobility Outcome: Ongoing, Progressing Intervention: Optimize Mobility Flowsheets Taken 10/16/2024 1535 Positioning/Transfer Devices: pillows in use Taken 10/16/2024 0800 Activity Management: activity adjusted per tolerance * Progress Notes - Birdie Damico RN - 10/16/2024 2:06 PM EDT Case Management Adult Progress Note Mundo Fernandez 64 y.o. male CSN: [id number] Admission: 09/30/2024 3:29 PM Primary Problem: Declining functional status CM received message from [place] [facility] admissions liaison stating patient has been approved for admission pending getting an established HD chair. HD secondary social studies teacher made aware. HD referral sent to [facility] with tracking number [id number]. CM will continue to follow and will arrange discharge transportation when needed. Birdie Damico RN * Progress Notes - Jeannie Valle MD - 10/16/2024 1:22 PM EDT Images from the original note were not included. [facility] Inpatient Progress Note Patient: Mundo Fernandez PCP: Leonard Botello MD Date: 10/16/2024 Subjective No new concerns reported by staff. Awaiting placement. Laying on bed comfortably. No new complaints. Not in any distress. Seen during HD today. Review of Systems Unable to perform ROS: Psychiatric disorder Objective INPATENT MEDICATIONS Current Medications[1] ALLERGIES Allergies[2] 24 HOUR VITALS Temp: [36.3 ??C (97.3 ??F)-36.8 ??C (98.2 ??F)] 36.3 ??C (97.3 ??F) Heart Rate: [66-91] 91 Resp: [14-16] 15 BP: (120-178)/(51-81) 178/71 INTAKE/OUTPUT Intake/Output Summary (Last 24 hours) at 10/16/2024 1322 Last data filed at 10/16/2024 1215 Gross per 24 hour Intake 1180 ml Output 2300 ml Net -1120 ml Physical Exam Constitutional: Appearance: He is normal weight. He is not toxic-appearing. Comments: Minimally verbal HENT: Head: Normocephalic. Eyes: Extraocular Movements: Extraocular movements intact. Cardiovascular: Rate and Rhythm: Normal rate and regular rhythm. Pulmonary: Effort: Pulmonary effort is normal. Breath sounds: Normal breath sounds. Abdominal: General: Abdomen is flat. There is no distension. Musculoskeletal: Cervical back: Normal range of motion and neck supple. Skin: General: Skin is warm. Findings: No lesion. Neurological: Mental Status: He is alert. Psychiatric: Mood and Affect: Affect is flat. Cognition and Memory: Cognition is impaired. REVIEW OF LABORATORY DATA Lab Results Component Value Date WBC 7.44 10/02/2024 HGB 8.2 (L) 10/09/2024 HCT 23.7 (L) 10/09/2024 MCV 90 10/02/2024 PLT 119 (L) 10/02/2024 Lab Results Component Value Date GLUCOSE 96 10/07/2024 CALCIUM 7.2 (L) 10/07/2024 NA 125 (L) 10/07/2024 K 4.1 10/07/2024 CO2 23 10/07/2024 CL 92 (L) 10/07/2024 BUN 41 (H) 10/07/2024 CREATININE 6.91 (H) 10/07/2024 Lab Results Component Value Date ALT 6 (L) 09/30/2024 AST 13 09/30/2024 ALKPHOS 42 09/30/2024 BILITOT 0.6 09/30/2024 Lab Results Component Value Date INR 1.0 12/07/2022 REVIEW OF IMAGING STUDIES XR Abdomen 1 View Narrative: CLINICAL INDICATION: Constipation TECHNIQUE: XR ABDOMEN 1 VIEW COMPARISON: July 03, 2022. FINDINGS: Moderate gastric distention. Gas within nondistended large and small bowel. Moderate distal colonicand rectal stool burden. Lower lungs are clear. Vascular calcification. Left femoral fixation hardware. Impression: Moderate distal colonic and rectal stool burden. Moderate gastric distention. CRITICAL RESULT: No. COMMUNICATION: Per this written report. Drafted by Ashley Strong MD on 10/15/2024 9:57 PM Final report signed by Ashley Strong MD on 10/15/2024 9:58 PM REVIEW OF PROCEDURES Assessment and Plan: Aakash Fernandez is a [place] 64 y.o. male with past history of ESRD on HD MWF, T2DM, HTN, chronic HFrEF, PAD, HLD, IDD/dementia, depression/anxiety, insomnia, chronic HCV, DM foot ulcer c/b OM s/p bilateral transmetarsal amputation, and debility sent from [place] [facility] [place] to ED for medical evaluationafter refusing care. Declining functional status - Transferred to [place] [facility] [place] a week ago and since arrival refusing HD, to eat, participate, or take medications - sent to ED for medical evaluation and need for higher level of assist/unable to care for self/non-compliance - afebrile, VSS, no acute complaints PLAN - PT/OT consult re: placement - legal guardian is his brother, Chris Fernandez, #[phone] (not answering calls since patient admission) Essential (primary) hypertension - increased carvedilol to 25 mg twice daily, nifedipine XL 60 mg daily (hold for BP <120/80 on dialysis days) At high risk for falls - wheelchair dependent, fall precautions ESRD (end stage renal disease) on dialysis ([facility]) - HD (MWF) - renally dose meds based on EGFR - strict I/O, daily weight Electrolyte and fluid disorder Hyponatremia Chronic kidney disease-mineral and bone disorder (CKD-MBD) - continue Renvela 800 mg TID with meals Anemia in chronic kidney disease (CODE) - Hgb stable, transfuse to keep >7 Type 2 diabetes mellitus with chronic kidney disease on chronic dialysis ([facility]) - last A1c 6.3 PLAN - will dc SSI given minimal Insulin need Dementia ([facility]) - Psych recommended; Asenapine 3.8 mg daily restarted (not on formulary his caregiver brought his patches) Mild intellectual disabilities - last neuropsych exam in 2023 found to not have capacity, brother is legal guardian - continue Depakote Sprinkle 250 mg twice daily Anxiety and depression - continue Sertraline 75 mg daily Insomnia, unspecified - continue trazodone 100 mg at bedtime, melatonin 3 mg at bedtime Arterial insufficiency ([facility]) - continue aspirin 81 mg daily, clopidogrel 75 mg daily Mixed hyperlipidemia - continue atorvastatin 40 mg at bedtime 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 - continue statin, ASA, clopidogrel as above Gastroesophageal reflux disease without esophagitis - continue daily PPI Sensorineural hearing loss, bilateral Wears hearing aid in both ears - not present with patient on admission, have tried to call caregiver to bring them to hospital with no luck Chronic combined systolic (congestive) and diastolic (congestive) heart failure ([facility]) - ECHO 06/27/2022: EF 45%, abnormal diastolic dysfunction - strict I/O, 2 L fluid restriction, cardiac/renal/CCHO2 diet Chronic hepatitis C without hepatic coma ([facility]) - HCV RNA PCR not detected 07/13/2023 History of transmetatarsal amputation of foot ([facility]) - chronic OM 2/2 DM foot ulcers s/p bilateral transmetarsal amputation Dispo : pending placement. [1] Current Facility-Administered Medications: acetaminophen (Tylenol) tablet 650 mg, 650 mg, Oral, q6h PRN, Lala Valdes B, MEDICAL ADMINISTRATIVE TECHNICIAN alteplase (Cathflo Activase) injection 4 mg, 4 mg, Intracatheter, PRN, Daphne Landry APRN, DNP alteplase (Cathflo Activase) injection 4 mg, 4 mg, Intracatheter, PRN, Gris, Daphne Galeana APRN, ADA alteplase (Cathflo Activase) injection 4 mg, 4 mg, Intracatheter, PRN, Daphne Landry APRN, DNP aspirin chewable tablet 81 mg, 81 mg, Oral, Daily, Lala Valdes APRN, 81 mg at 10/16/24 1313 atorvastatin (Lipitor) tablet 40 mg, 40 mg, Oral, Nightly, Lala Valdes MEDICAL ADMINISTRATIVE TECHNICIAN, 40 mg at 10/15/242036 bisacodyl (Dulcolax) EC tablet 10 mg, 10 mg, Oral, Daily PRN, Lala Valdes APRN, 10 mg at 10/15/2407 cadexomer iodine (Iodosorb) 0.9 % gel, , Topical, Daily, Tana Wooten MD, Given at 10/16/24 131 carvedilol (Coreg) tablet 25 mg, 25 mg, Oral, BID, Leda Gaitan MD, 25 mg at 10/16/24 1313 clopidogrel (Plavix) tablet 75 mg, 75 mg, Oral, Daily, Lala Valdes APRN, 75 mg at 10/16/24 131 glucose (Glutose) 40 % oral gel 15-30 grams of glucose, 15-30 grams of glucose, Sublingual, q15 minPRN OR dextrose 10 % (D10W) bolus 125 mL, 125 mL, Intravenous, q15 min PRN OR dextrose 10 %(D10W) bolus 250 mL, 250 mL, Intravenous, q15 min PRN OR glucagon (human recombinant) injection1 mg, 1 mg, Intramuscular, q15 min PRN, Lala Valdes APRN divalproex sprinkle (Depakote Sprinkle) DR capsule 250 mg, 250 mg, Oral, BID, Lala Valdes MEDICAL ADMINISTRATIVE TECHNICIAN,250 mg at 10/16/24 1313 heparin (porcine) injection 5,000 Units, 5,000 Units, Subcutaneous, q8h RAFAT, Lala Valdes APRN, 5,000 Units at 10/16/24 1317 melatonin tablet 3 mg, 3 mg, Oral, Nightly, Lucio, Gitana B, MEDICAL ADMINISTRATIVE TECHNICIAN, 3 mg at 10/15/242036 NIFEdipine XL (Procardia XL) 24 hr tablet 60 mg, 60 mg, Oral, Daily, Leda Gaitan MD, 60 mg at 10/16/241312 polyethylene glycol (Miralax) packet 17 g, 17 g, Oral, BID, Lucio, Gitana B, MEDICAL ADMINISTRATIVE TECHNICIAN, 17 g at 10/16/241312 senna (Senokot) tablet 17.2 mg, 17.2 mg, Oral, Nightly PRN, Lucio, Gitana B, MEDICAL ADMINISTRATIVE TECHNICIAN, 17.2 mg at 10/15/242146 sertraline (Zoloft) tablet 75 mg, 75 mg, Oral, Daily, Lucio, Gitana B, MEDICAL ADMINISTRATIVE TECHNICIAN, 75 mg at 10/16/241312 Insert peripheral IV, , , Once AND Saline lock IV, , , Once AND sodium chloride 0.9 % flush10 mL, 10 mL, Intravenous, q12h, 10 mL at 10/13/24 1759 AND sodium chloride 0.9 % flush 10 mL, 10 mL, Intravenous, PRN, Lucio, Gitana B, MEDICAL ADMINISTRATIVE TECHNICIAN sodium citrate anticoagulant 4 % flush 6 mL, 6 mL, Intracatheter, PRN, Rust, Daphne L, MEDICAL ADMINISTRATIVE TECHNICIAN, DNP sodium citrate anticoagulant 4 % flush 6 mL, 6 mL, Intracatheter, PRN, Rust, Daphne L, MEDICAL ADMINISTRATIVE TECHNICIAN, DNP sodium citrate anticoagulant 4 % flush 6 mL, 6 mL, Intracatheter, PRN, RustDaphne L, MEDICAL ADMINISTRATIVE TECHNICIAN, DNP traZODone (Desyrel) tablet 100 mg, 100 mg, Oral, Nightly, Lucio, Gitana B, MEDICAL ADMINISTRATIVE TECHNICIAN, 100 mg at 10/15/242036 Facility-Administered Medications Ordered in Other Encounters: lidocaine-EPINEPHrine (PF) (Xylocaine W/EPI) 1 %-1:061330 injection - Pyxis Override Pull, , , , lidocaine-EPINEPHrine (PF) (Xylocaine W/EPI) 1 %-1:286724 injection - Pyxis Override Pull, , , , [2] No Known Allergies * Progress Notes - Sameera Garg MD - 10/16/2024 9:05 AM EDT Nephrology Progress Note Patient: Mundo Fernandez Admit Date: 09/30/2024 Subjective Reviewed the interval events, flowsheets, labs and the notes. Mr. Fernandez was evaluated in iHD today. Tolerating well with no concerns at this time. Objective Visit Vitals BP 127/63 Pulse 73 Temp 36.6 ??C (97.8 ??F) Resp 14 Ht 1.778 m (5' 10 ) Wt 74.8 kg (164 lb 14.5 oz) SpO2 93% BMI 23.66 kg/m?? Smoking Status Never BSA 1.92 m?? Temp: [36.4 ??C (97.6 ??F)-36.6 ??C (97.8 ??F)] 36.6 ??C (97.8 ??F) Heart Rate: [73-78] 73 Resp: [14] 14 BP: (127-157)/(63-81) 127/63 Problem List Principal Problem: Declining functional status Active Problems: ESRD (end stage renal disease) on dialysis (CMS/HCC) Essential (primary) hypertension 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) Wears hearing aid in both ears At high risk for falls Insomnia, unspecified Chronic combined systolic (congestive) and diastolic (congestive) heart failure (CMS/HCC) Dementia (CMS/HCC) Chronic hepatitis C without hepatic coma (CMS/HCC) Arterial insufficiency (CMS/HCC) Gastroesophageal reflux disease without esophagitis Mixed hyperlipidemia Anxiety and depression Mild intellectual disabilities Sensorineural hearing loss, bilateral History of transmetatarsal amputation of foot (CMS/HCC) Electrolyte and fluid disorder Anemia in chronic kidney disease (CODE) Chronic kidney disease-mineral and bone disorder (CKD-MBD) 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 ESRD (end stage renal disease) (CMS/HCC) Medications: Current Medications: Current Scheduled Medications[1] Current Continuous Medications[2] Physical Exam: GEN: no acute distress, lying in bed SKIN : warm and dry, color normal, turgor normal, no lesions. RESPIRATORY/THORAX : Respirations non-labored, on room air CARDIOVASCULAR: Warm and well perfused GASTROINTESTINAL: soft, NT, ND EXTREMITIES: no LE edema, no rashes noted NEURO: Alert, hard of hearing, answers appropriately, follows commands ACCESS: RUE AVF Laboratory: Results from last 7 days Lab Units 10/09/24 1545 HEMOGLOBIN g/dL 8.2* HEMATOCRIT % 23.7* No lab exists for component: ALB Lab Results Component Value Date USG 1.008 04/14/2023 FLORY >=8.5 (H) 04/14/2023 URINEPRO >=300 (A) 04/14/2023 GLUCOSEU 100 (A) 04/14/2023 BLOODU Trace (A) 04/14/2023 NITRITEU Negative 04/14/2023 URBC 4 - 10 (A) 04/14/2023 HYLCST 0 - 2 04/14/2023 BACTERIAU Present 04/14/2023 SQUAMOUS 3 - 5 04/14/2023 Lab Results Component Value Date NAPA 350 12/10/2018 NAUR 31 12/10/2018 CREATUR 158 12/10/2018 PROTUR 153 11/12/2018 UTPCR 1.5 (H) 11/12/2018 Lab Results Component Value Date FERRITIN 1,701 (H) 10/02/2024 TRANSFERNSAT 45 09/30/2024 IRON 66 09/30/2024 TIBC 146 (L) 09/30/2024 TRANSFERRIN 117 (L) 09/30/2024 Lab Results Component Value Date PTH 9 10/02/2024 VITD25 33.5 10/02/2024 Impression & Plan: Mundo Fernandez is a 62 y.o. male with ESRD on iHD MWF, T2DM, HTN, chronic HFrEF, PAD, HLD, IDD/dementia, depression/anxiety, insomnia, chronic HCV, DM foot ulcer c/b OM s/p bilateral transmetarsal amputation, and debility presented to [facility] on [facility]/30 after refusing care at his [place] [facility]. Nephrology consulted for dialysis. Assessment: #ESRD on iHD - MWF at [facility] [address] [facility] - AccesS: RUAngel AVG - EDW 67.5 Kg #HTN #Renal Osteodystrophy; secondary hyperparathyroidism #Anemia in ESRD #Disorders of electrolytes and acid/base due to renal insufficiency #Hypervolemia in renal insufficiency #Debility #T2DM #HFrEF #Dementia #Intellectual and developmental delay Recommendations and Plan - Continue iHD MWF while admitted; 3hrs, BFR 300-400 mL/min, DFR 600-800 mL/min, 3.5K, 2.5Ca, 32HCO3, 136Na, UF 1L, T35.5 - Iron parameters at goal; will follow for ANGELITA requirements - Renal diet as tolerated - Sevelamer held with Phos <4; will follow for Phos binder requirements - Strict I/Os and Daily weights - Management of other acute/chronic conditions per primary team - Avoid NSAIDs and other nephrotoxic mediations; Renally dose medications for ESRD on iHD. Please feel free to reach out if you have any questions or concerns. Sameera Garg MD Nephrology Fellow PGY-5 [1] Asenapine, 1 patch, Transdermal, q24h aspirin, 81 mg, Oral, Daily atorvastatin, 40 mg, Oral, Nightly cadexomer iodine, , Topical, Daily carvedilol, 25 mg, Oral, BID clopidogrel, 75 mg, Oral, Daily divalproex sprinkle, 250 mg, Oral, BID heparin (porcine), 5,000 Units, Subcutaneous, q8h RAFAT melatonin, 3 mg, Oral, Nightly NIFEdipine XL, 60 mg, Oral, Daily polyethylene glycol, 17 g, Oral, BID sertraline, 75 mg, Oral, Daily sodium chloride, 10 mL, Intravenous, q12h traZODone, 100 mg, Oral, Nightly [2] Cosigned by Sherry Hinojosa MD at 10/16/2024 9:59 PM EDT Associated attestation - Sherry Hinojosa MD - 10/16/2024 9:59 PM EDT I saw and evaluated the patient with the resident/fellow. I discussed the case with the resident/fellow and agree with the findings and plan as documented. * Care Plan - Carri Chand - 10/16/2024 2:34 AM EDT Problem: Adult Inpatient Plan of Care Goal: Plan of Care Review Outcome: Ongoing, Progressing Flowsheets (Taken 10/16/2024 023) Progress: improving Plan of Care Reviewed With: patient Goal: Patient-Specific Goal (Individualized) Outcome: Ongoing, Progressing Flowsheets (Taken 10/15/20241999) Patient/Family-Specific Goals (Include Timeframe): Patient will be educated on diet, and maintain good hygiene during the shift Individualized Care Needs: education on diet orders, safety, comfort, skin integrity Anxieties, Fears or Concerns: request can drinks while he is on fluid restriction Goal: Absence of Hospital-Acquired Illness or Injury Outcome: Ongoing, Progressing Intervention: Identify and Manage Fall Risk Flowsheets (Taken 10/15/20241999) Safety Promotion/Fall Prevention: fall prevention program maintained activity supervised clutter-free environment maintained safety round/check completed lighting adjusted Intervention: Prevent Skin Injury Flowsheets Taken 10/16/2024229 Skin Protection: incontinence pads utilized Taken 10/15/20241999 Body Position: heels elevated turned Intervention: Prevent and Manage VTE (Venous Thromboembolism) Risk Flowsheets (Taken 10/15/20241999) VTE Prevention/Management: medication Intervention: Prevent Infection Flowsheets (Taken 10/16/2024 023) Infection Prevention: hand hygiene promoted rest/sleep promoted Problem: Skin Injury Risk Increased Goal: Skin Health and Integrity Outcome: Ongoing, Progressing Intervention: Optimize Skin Protection Flowsheets Taken 10/16/2024229 Pressure Reduction Techniques: frequent weight shift encouraged heels elevated off bed Pressure Reduction Devices: heel offloading device utilized positioning supports utilized Skin Protection: incontinence pads utilized Head of Bed (HOB) Positioning: HOB elevated Taken 10/15/20241999 Activity Management: activity adjusted per tolerance Intervention: Promote and Optimize Oral Intake Flowsheets (Taken 10/16/2024 0230) Oral Nutrition Promotion: rest periods promoted Nutrition Interventions: frequent small meals provided Problem: Fall Injury Risk Goal: Absence of Fall and Fall-Related Injury Outcome: Ongoing, Progressing Intervention: Identify and Manage Contributors Flowsheets (Taken 10/16/2024 0230) Medication Review/Management: medications reviewed Self-Care Promotion: independence encouraged BADL personal objects within reach Intervention: Promote Injury-Free Environment Flowsheets (Taken 10/15/20241999) Safety Promotion/Fall Prevention: fall prevention program maintained activity supervised clutter-free environment maintained safety round/check completed lighting adjusted Problem: Wound Goal: Skin Health and Integrity Outcome: Ongoing, Progressing Intervention: Optimize Skin Protection Flowsheets Taken 10/16/2024229 Pressure Reduction Techniques: frequent weight shift encouraged heels elevated off bed Pressure Reduction Devices: heel offloading device utilized positioning supports utilized Skin Protection: frequent weight shift encouraged incontinence pads utilized Head of Bed (HOB) Positioning: HOB elevated Taken 10/15/20241999 Activity Management: activity adjusted per tolerance Goal: Optimal Wound Healing Outcome: Ongoing, Progressing Intervention: Promote Wound Healing Flowsheets (Taken 10/16/2024 0230) Sleep/Rest Enhancement: noise level reduced room darkened regular sleep/rest pattern promoted awakenings minimized Problem: Hemodialysis Goal: Safe, Effective Therapy Delivery Outcome: Ongoing, Progressing Intervention: Optimize Device Care and Function Flowsheets (Taken 10/16/2024229) Medication Review/Management: medications reviewed Goal: Effective Tissue Perfusion Outcome: Ongoing, Progressing Intervention: Optimize Blood Flow Flowsheets (Taken 10/16/2024229) Stabilization Measures: legs elevated Goal: Absence of Infection Signs and Symptoms Outcome: Ongoing, Progressing Intervention: Prevent or Manage Infection Flowsheets (Taken 10/16/2024 023) Infection Management: aseptic technique maintained Fever Reduction/Comfort Measures: lightweight bedding lightweight clothing Infection Prevention: hand hygiene promoted rest/sleep promoted Problem: Self-Care Deficit Goal: Improved Ability to Complete Activities of Daily Living Outcome: Ongoing, Progressing Intervention: Promote Activity and Functional [place] Flowsheets (Taken 10/16/2024229) Activity Assistance Provided: assistance, 2 people Self-Care Promotion: independence encouraged BADL personal objects within reach Problem: Infection Goal: Absence of Infection Signs and Symptoms Outcome: Ongoing, Progressing Intervention: Prevent or Manage Infection Flowsheets (Taken 10/16/2024 0230) Infection Management: aseptic technique maintained Fever Reduction/Comfort Measures: lightweight bedding lightweight clothing Isolation Precautions: precautions maintained Problem: Diabetes Goal: Optimal Coping Outcome: Ongoing, Progressing Intervention: Support Wellbeing and Self-Management Success Flowsheets (Taken 10/16/2024229) Supportive Measures: active listening utilized self-care encouraged Family/Support System Care: support provided Goal: Optimal Functional Ability Outcome: Ongoing, Progressing Intervention: Optimize Functional Ability Flowsheets Taken 10/16/2024229 Activity Assistance Provided: assistance, 2 people Self-Care Promotion: independence encouraged BADL personal objects within reach Taken 10/15/20241999 Activity Management: activity adjusted per tolerance Goal: Blood Glucose Level Within Target Range Outcome: Ongoing, Progressing Intervention: Optimize Glycemic Control Flowsheets (Taken 10/16/2024 0230) Hyperglycemia Management: blood glucose monitored Goal: Minimize Hypoglycemia Risk Outcome: Ongoing, Progressing Intervention: Minimize and Manage Hypoglycemia Flowsheets (Taken 10/16/2024 0230) Hypoglycemia Management: blood glucose monitored * Progress Notes - Birdie Damico RN - 10/15/2024 2:21 PM EDT CM followed up with [facility] liaison[facility] and found they are able to accept patient if antipsychotic medication, Asenapine is discontinued. CM discussed with primary team and psychiatry who recommends discontinuing asenapine and to keep patient on his other psychiatric medications. Facility liaison made aware of psych recommendations. Facility will discuss finances with patients legal guardian, Chris Fernandez (brother), and notify CM of final decision. Patient is requiring HD three times per week. CM sent referral to HD secondary social studies teacher to arrange HD chair near [place], [place]. CM will discuss transportation to and from HD clinic with facility admissions. CM will arrange transportation to facility when needed. Birdie Damico RN * Care Plan - April Merida RN - 10/15/2024 2:18 PM EDT Problem: Adult Inpatient Plan of Care Goal: Plan of Care Review 10/15/2024 1412 by April Merida, RN Outcome: Ongoing, Not Progressing Flowsheets (Taken 10/15/2024 1412) Progress: improving Outcome Evaluation: Patient will have a BM this shift Plan of Care Reviewed With: patient 10/15/2024 1233 by April Merida, RN Outcome: Ongoing, Progressing Goal: Patient-Specific Goal (Individualized) 10/15/2024 1412 by April Merida, RN Outcome: Ongoing, Not Progressing Flowsheets (Taken 10/15/2024 0800) Patient/Family-Specific Goals (Include Timeframe): patient will remain ree from harm throughout theshift Individualized Care Needs: safety Anxieties, Fears or Concerns: none stated 10/15/2024 1233 by April Merida RN Outcome: Ongoing, Progressing Goal: Absence of Hospital-Acquired Illness or Injury 10/15/2024 1412 by April Merida, TRISTIN Outcome: Ongoing, Not Progressing 10/15/2024 1233 by April Merida RN Outcome: Ongoing, Progressing Intervention: Identify and Manage Fall Risk Flowsheets (Taken 10/15/2024 0800) Safety Promotion/Fall Prevention: activity supervised fall prevention program maintained nonskid shoes/slippers when out of bed safety round/check completed Intervention: Prevent Skin Injury Flowsheets Taken 10/15/2024 1412 Skin Protection: incontinence pads utilized Taken 10/15/2024 1200 Body Position: heels elevated Intervention: Prevent and Manage VTE (Venous Thromboembolism) Risk Flowsheets (Taken 10/15/2024 0800) VTE Prevention/Management: medication Intervention: Prevent Infection Flowsheets (Taken 10/15/2024 1412) Infection Prevention: hand hygiene promoted rest/sleep promoted Goal: Optimal Comfort and Wellbeing 10/15/2024 1412 by April Merida RN Outcome: Ongoing, Not Progressing 10/15/2024 1233 by April Merida RN Outcome: Ongoing, Progressing Intervention: Monitor Pain and Promote Comfort Flowsheets (Taken 10/14/2024 1430) Pain Management Interventions: pillow support provided position adjusted Intervention: Provide Person-Centered Care Flowsheets (Taken 10/14/2024 1430) Trust Relationship/Rapport: care explained choices provided questions answered questions encouraged Problem: Skin Injury Risk Increased Goal: Skin Health and Integrity 10/15/2024 1412 by April Merida, TRISTIN Outcome: Ongoing, Not Progressing 10/15/2024 1233 by April Merida RN Outcome: Ongoing, Progressing Intervention: Optimize Skin Protection Flowsheets Taken 10/15/2024 1412 Pressure Reduction Techniques: frequent weight shift encouraged heels elevated off bed Pressure Reduction Devices: positioning supports utilized heel offloading device utilized Skin Protection: incontinence pads utilized Head of Bed (HOB) Positioning: HOB lowered Taken 10/15/2024 1200 Activity Management: activity adjusted per tolerance Intervention: Promote and Optimize Oral Intake Flowsheets (Taken 10/15/2024 1412) Oral Nutrition Promotion: rest periods promoted Nutrition Interventions: frequent small meals provided Problem: Fall Injury Risk Goal: Absence of Fall and Fall-Related Injury 10/15/2024 1412 by April Merida, TRISTIN Outcome: Ongoing, Not Progressing 10/15/2024 1233 by April Merida, RN Outcome: Ongoing, Progressing Intervention: Identify and Manage Contributors Flowsheets (Taken 10/15/2024 1412) Medication Review/Management: medications reviewed Self-Care Promotion: independence encouraged BADL personal objects within reach Intervention: Promote Injury-Free Environment Flowsheets (Taken 10/15/2024 0800) Safety Promotion/Fall Prevention: activity supervised fall prevention program maintained nonskid shoes/slippers when out of bed safety round/check completed Problem: Wound Goal: Skin Health and Integrity 10/15/2024 141 by April Merida, TRISTIN Outcome: Ongoing, Not Progressing 10/15/2024 1233 by April Merida RN Outcome: Ongoing, Progressing Intervention: Optimize Skin Protection Flowsheets Taken 10/15/2024 141 Pressure Reduction Techniques: frequent weight shift encouraged heels elevated off bed Pressure Reduction Devices: positioning supports utilized heel offloading device utilized Skin Protection: frequent weight shift encouraged incontinence pads utilized Head of Bed (HOB) Positioning: HOB lowered Taken 10/15/2024 1200 Activity Management: activity adjusted per tolerance Goal: Optimal Wound Healing 10/15/2024 1412 by April Merida, TRISTIN Outcome: Ongoing, Not Progressing 10/15/2024 1233 by April Merida, TRISTIN Outcome: Ongoing, Progressing Intervention: Promote Wound Healing Flowsheets (Taken 10/15/2024 1412) Sleep/Rest Enhancement: awakenings minimized Problem: Hemodialysis Goal: Safe, Effective Therapy Delivery 10/15/2024 141 by April Merida RN Outcome: Ongoing, Not Progressing 10/15/2024 1233 by April Merida RN Outcome: Ongoing, Progressing Intervention: Optimize Device Care and Function Flowsheets (Taken 10/15/2024 1412) Medication Review/Management: medications reviewed Goal: Effective Tissue Perfusion 10/15/2024 141 by April Merida, TRISTIN Outcome: Ongoing, Not Progressing 10/15/2024 1233 by April Merida RN Outcome: Ongoing, Progressing Intervention: Optimize Blood Flow Flowsheets (Taken 10/15/2024 141) Stabilization Measures: legs elevated Goal: Absence of Infection Signs and Symptoms 10/15/2024 1412 by April Merida, TRISTIN Outcome: Ongoing, Not Progressing 10/15/2024 1233 by April Merida RN Outcome: Ongoing, Progressing Intervention: Prevent or Manage Infection Flowsheets (Taken 10/15/2024 1412) Infection Management: aseptic technique maintained Fever Reduction/Comfort Measures: lightweight bedding lightweight clothing Infection Prevention: hand hygiene promoted rest/sleep promoted Problem: Self-Care Deficit Goal: Improved Ability to Complete Activities of Daily Living 10/15/2024 141 by April Merida RN Outcome: Ongoing, Not Progressing 10/15/2024 1233 by April Merida RN Outcome: Ongoing, Progressing Intervention: Promote Activity and Functional [place] Flowsheets (Taken 10/15/2024 141) Activity Assistance Provided: assistance, 2 people Adaptive Equipment Use: use encouraged Self-Care Promotion: independence encouraged BADL personal objects within reach Problem: Infection Goal: Absence of Infection Signs and Symptoms 10/15/2024 141 by April Merida RN Outcome: Ongoing, Not Progressing 10/15/2024 1233 by April Merida RN Outcome: Ongoing, Progressing Intervention: Prevent or Manage Infection Flowsheets (Taken 10/15/2024 1412) Infection Management: aseptic technique maintained Fever Reduction/Comfort Measures: lightweight bedding lightweight clothing Isolation Precautions: precautions initiated Problem: Diabetes Goal: Optimal Coping 10/15/2024 141 by April Merida, TRISTIN Outcome: Ongoing, Not Progressing 10/15/2024 1233 by April Merida, TRISTIN Outcome: Ongoing, Progressing Intervention: Support Wellbeing and Self-Management Success Flowsheets (Taken 10/15/2024 141) Supportive Measures: active listening utilized self-care encouraged Family/Support System Care: support provided Goal: Optimal Functional Ability 10/15/2024 1412 by April Merida, TRISTIN Outcome: Ongoing, Not Progressing 10/15/2024 1233 by April Merida RN Outcome: Ongoing, Progressing Intervention: Optimize Functional Ability Flowsheets Taken 10/15/2024 1412 Activity Assistance Provided: assistance, 2 people Adaptive Equipment Use: use encouraged Self-Care Promotion: independence encouraged BADL personal objects within reach Taken 10/15/2024 1200 Activity Management: activity adjusted per tolerance Goal: Blood Glucose Level Within Target Range 10/15/2024 1412 by April Merida RN Outcome: Ongoing, Not Progressing 10/15/2024 1233 by April Merida RN Outcome: Ongoing, Progressing Intervention: Optimize Glycemic Control Flowsheets (Taken 10/15/2024 1412) Hyperglycemia Management: blood glucose monitored Goal: Minimize Hypoglycemia Risk 10/15/2024 1412 by April Merida, TRISTIN Outcome: Ongoing, Not Progressing 10/15/2024 1233 by April Merida RN Outcome: Ongoing, Progressing Intervention: Minimize and Manage Hypoglycemia Flowsheets (Taken 10/15/2024 1412) Hypoglycemia Management: blood glucose monitored Problem: Mobility Impairment Goal: Optimal Mobility 10/15/2024 1412 by April Merida RN Outcome: Ongoing, Not Progressing 10/15/2024 1233 by April Merida RN Outcome: Ongoing, Progressing Intervention: Optimize Mobility Flowsheets Taken 10/15/2024 1412 Positioning/Transfer Devices: pillows in use Taken 10/15/2024 1200 Activity Management: activity adjusted per tolerance * Progress Notes - Brooke Gallardo MD - 10/15/2024 1:16 PM EDT Images from the original note were not included. Psychiatry Consult Follow Up Note 10/15/2024 Subjective Subjective: Overnight events documented include: None PRNs received: None Patient was seen and evaluated. Interview was limited as patient is very hard of hearing. He deniedany specific concerns. Nodded when asked how he was doing. Waved goodbye to interviewer. Patient's past medical, surgical, and social history has been reviewed. Objective Objective: Visit Vitals BP (!) 146/65 Pulse 76 Temp 36.5 ??C (97.7 ??F) (Oral) Ht 1.778 m (5' 10 ) Wt 75.5 kg (166 lb 7.2 oz) SpO2 94% BMI 23.88 kg/m?? Mental Status Exam: Appearance: appears stated age, wearing hospital attire, good hygiene; resting peacefully in bed Attitude: cooperative, interested in treatment Eye Contact: appropriate Speech: appropriate rate and volume, non-pressured Involuntary Movements: absent Psychomotor Activity: no significant depression or agitation Level of Consciousness: alert Memory: unable to assess Mood: I can't hear Affect: congruent with stated mood, full range Thought Process: difficult to fully assess Thought Content: not responding to internal stimuli AVH: unable to assess SI: unable to assess HI: unable to assess Insight: fair Judgment: fair Current Scheduled Medications[1] Current PRN Medications[2] Labs in last 24 hours: Recent Results (from the past 24 hours) POCT glucose meter Collection Time: 10/14/24 4:34 PM Result Value Ref Range POCT Glucose 98 74 - 99 mg/dL Comment Cuff Setter Overlock ID Moisés Lopez Device ID [id number] Specimen Type POC Capillary POCT glucose meter Collection Time: 10/14/24 8:01 PM Result Value Ref Range POCT Glucose 186 (H) 74 - 99 mg/dL Comment Cuff Setter Overlock ID Matty Jeffries Device ID [id number] Specimen Type POC Capillary POCT glucose meter Collection Time: 10/15/24 8:04 AM Result Value Ref Range POCT Glucose 101 (H) 74 - 99 mg/dL Comment Cuff Setter Overlock ID Lio Gomez Device ID [id number] Specimen Type POC Capillary POCT glucose meter Collection Time: 10/15/24 12:06 PM Result Value Ref Range POCT Glucose 115 (H) 74 - 99 mg/dL Comment Cuff Setter Overlock ID Lio Gomez Device ID [id number] Specimen Type POC Capillary Encounter Date: 09/30/24 EKG now - STAT (adult) Result Value EKG DIAGNOSIS CLASS Abnormal Ventricular Rate 70 Atrial Rate 70 VT Interval 154 QRSD Interval 106 QT Interval 430 QTC Interval 464 P [place] 69 R [place] -23 T Wave [place] 5 Diagnosis Normal sinus rhythm Diagnosis Nonspecific T wave abnormality Diagnosis Abnormal ECG Diagnosis Diagnosis Confirmed by Sb Cole ([id number]) on 09/30/2024 5:32:21 PM *Note: Due to a large number of results and/or encounters for the requested time period, some results have not been displayed. A complete set of results can be found in Results Review. ANTIPSYCHOTIC MONITORING TOOL Current antipsychotic(s): Asenapine Glucose parameters: Lab Results Component Value Date HGBA1C 6.3 (H) 09/30/2024 Lab Results Component Value Date GLUCOSE 96 10/07/2024 GLUCOSE 103 (H) 10/06/2024 Concern for diabetes? Yes Lipid parameters: Lab Results Component Value Date CHOL 156 03/14/2018 HDL 34 03/14/2018 LDLCALC 100 03/14/2018 TRIG 112 03/14/2018 Fasting lipid panel? unknown Current antidiabetic: SSI Current antilipemic: atorvastatin Blood pressure parameters: BP REVIEW BP (ultimate) 10/15/2024 9:10 AM 146/65 10/15/2024 8:02 AM 121/65 10/14/2024 8:00 PM 153/67 10/14/2024 4:34 PM 160/72 Concern for hypertension? Yes Weight parameters: Height: 177.8 cm (5' 10 ) Height Method: (from previous data) Weight: 75.5 kg (166 lb 7.2 oz) Weight Method: Bed scale BMI (Calculated): 23.88 Current antihypertensive: carvedilol, nifedipine QTc: 464 EKG Date/Time: 09/30/24 at 1609 The ASCVD Risk score (Nuris ANDRADE, et al., 2019) failed to calculate for the following reasons: Risk score cannot be calculated because patient has a medical history suggesting prior/existing ASCVD Patient is already treated with appropriate antilipemic agent. Clinical indication for treatment of metabolic concerns pertaining to ongoing antipsychotic use wasdeferred to primary treatment team for further discussion. Assessment/Plan Diagnoses: IDD Medical Diagnoses: Problem List[3] Risk Assessment: Patient IS NOT currently at an acutely elevated risk of harm to self or others given no reported SI/HI. Patient IS NOT demonstrating ANY suicidal intent, DOES appear to be able to control impulsivity, and IS NOT exhibiting any psychiatric symptom burden impacting safety/daily functioning. It should be noted that this patient is at a chronically elevated risk at baseline due to the following exhibited risk factors NOT modifiable by hospitalization demonstrated in their history: historyof psychiatric disorder, unemployed or unskilled, and chronic medical/physical illness. The patientdoes, however, exhibit the following strengths/protective factors: calm/cooperative, access to housing. No risk factors modifiable by psychiatric hospitalization were identified on evaluation. Involuntary hospitalization on a 72 hour hold for safety, further psychiatric evaluation, and crisis stabilization IS NOT currently indicated. Patient IS NOT holdable under [place]RS A as he DOES NOT meet ALL hold criteria: having a mental illness, being an acute risk of harm to self or others, reasonable expectation of benefit from admission, AND inpatient being least restrictive means of treatment. Formulation: Mundo Fernandez is a 64 y.o. male with a PMHx of ESRD, AUD, CHF, bilateral sensorineural hearing loss, HLD, DM type 2, chronic OM requiring bilateral transmetatarsal amputation and reported psychiatric hx of IDD/dementia, anxiety, and depression who presented to [facility] with concerns of non-adherence to medication regimen and refusing dialysis and admitted 09/30/2024 to Internal Medicine for continued management of medical comorbidities/dialysis while awaiting placement at an appropriate long-term care facility. Psychiatry was consulted for medication recommendations regarding home 3.8 mg/24 hr Asenapine patch (not readily available on formulary). Most likelydiagnosis is IDD as documented previously. Recommendations: - Okay to use alternative sublingual form of asenapine [address] of home transdermal asenapine (patch) 3.8 mg. It is generally ideal to continue home medications that a patient has been stabilized on. However, given no clear diagnosis that requires antipsychotic therapy, if unable to obtainsublingual form, can discontinue asenapine and continue other psychiatric medications as below. - Continue sertraline 75 mg daily - Continue Depakote sprinkles 250 mg BID - Continue trazodone 100 mg at bedtime Psychiatry will sign off at this time Recommendations were also directly communicated to first call physician/provider: Dr. Valle via [email or web address] chat Patient staffed with attending, Dr. Jon Gallardo MD PGY-3, Internal Medicine/Psychiatry Note to patient: The 21st Century Cures Act makes medical notes like these available to patients inthe interest of transparency. However, be advised this is a medical document. It is intended as peer to peer communication. It is written in medical language and may contain abbreviations or verbiagethat are unfamiliar. It may appear blunt or direct. Medical documents are intended to carry relevant information, facts as evident, and the clinical opinion of the practitioner. [1] Asenapine, 1 patch, Transdermal, q24h aspirin, 81 mg, Oral, Daily atorvastatin, 40 mg, Oral, Nightly cadexomer iodine, , Topical, Daily carvedilol, 25 mg, Oral, BID clopidogrel, 75 mg, Oral, Daily divalproex sprinkle, 250 mg, Oral, BID heparin (porcine), 5,000 Units, Subcutaneous, q8h RAFAT melatonin, 3 mg, Oral, Nightly NIFEdipine XL, 60 mg, Oral, Daily polyethylene glycol, 17 g, Oral, Daily sertraline, 75 mg, Oral, Daily Insert peripheral IV, , , Once AND Saline lock IV, , , Once AND sodium chloride, 10 mL, Intravenous, q12h AND sodium chloride, 10 mL, Intravenous, PRN traZODone, 100 mg, Oral, Nightly [2] PRN medications: acetaminophen, alteplase, bisacodyl, glucose OR dextrose 10 % OR dextrose 10 % OR glucagon (human recombinant), Insert peripheral IV AND Saline lock IV AND sodium chloride AND sodium chloride, sodium citrate anticoagulant [3] Patient Active Problem List Diagnosis ESRD (end stage renal disease) on dialysis ([facility]) Essential (primary) hypertension Type 2 diabetes mellitus with chronic kidney disease on chronic dialysis ([facility]/HCC) Wears hearing aid in both ears At high risk for falls Insomnia, unspecified Chronic combined systolic (congestive) and diastolic (congestive) heart failure (CMS/HCC) Dementia ([facility]/HCC) Chronic hepatitis C without hepatic coma ([facility]/HCC) Arterial insufficiency ([facility]/HCC) BPH (benign prostatic hyperplasia) Diabetic peripheral neuropathy ([facility]/HCC) DM type 2 without retinopathy ([facility]/HCC) Gastroesophageal reflux disease without esophagitis Mixed hyperlipidemia Hypoparathyroidism Anxiety and depression Mild intellectual disabilities Sensorineural hearing loss, bilateral Non-ischemic cardiomyopathy (CMS/HCC) Chronic osteomyelitis (CMS/HCC) Declining functional status History of transmetatarsal amputation of foot (CMS/HCC) Electrolyte and fluid disorder Anemia in chronic kidney disease (CODE) 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 I discussed the case with the resident/fellow and agree with the findings and plan as documented. * Care Plan - Cornell Hinojosa RN - 10/15/2024 1:04 PM EDT Problem: Wound Goal: Skin Health and Integrity Outcome: Ongoing, Progressing Intervention: Optimize Skin Protection Flowsheets (Taken 10/15/2024 1302) Pressure Reduction Techniques: heels elevated off bed frequent weight shift encouraged Skin Protection: protective dressing applied absorbent pad utilized/changed Goal: Optimal Wound Healing Outcome: Ongoing, Progressing Intervention: Promote Wound Healing Flowsheets (Taken 10/15/2024 1302) Sleep/Rest Enhancement: consistent schedule promoted * Progress Notes - Cornell Hinojosa RN - 10/15/2024 12:59 PM EDT Images from the original note were not included. Wound Care Consult Visit Date: 10/15/2024 Patient Name: Aakash Fernandez Date of : 1960 Admit Date: 09/30/2024 Reason for Consult: IP Wound Orders (From admission, onward) Start Ordered 10/01/24222 Wound ostomy eval and treat Once Comments: Wound on the bottom of right foot Question: Instructions: Answer: Prior to sending evaluation & treat order, place wound/ostomy LDA, complete a wound/ostomy assessment, and consider taking a photograph to document. 07/15/25 0223 Wound Assessment: Wound 09/30/24 Diabetic Ulcer Heel Right (Active) Date First Assessed/Time First Assessed: 09/30/24 2200 Present on Original Admission: Yes Hand Hygiene Completed: Yes Primary Wound Type: Diabetic Ulcer Location: Heel Wound Location Orientation: Right Assessments 10/15/2024 9:25 AM Wound Image Wound Assessment [place];Granulation Margins Well-defined edges;Open Edges Sydni-Wound Assessment Clean;Dry;Calloused Shape Oval Wound Length (cm) 0.8 cm Wound Width (cm) 0.6 cm Wound Surface Area (cm^2) 0.38 cm^2 Wound Depth (cm) 0.3 cm Wound Volume (cm^3) 0.075 cm^3 Wound Healing % 64 Drainage Description Serous Drainage Amount Scant State of Healing Early/partial granulation Non-staged Wound Description Full thickness Active Orders Date Order Priority Status Authorizing Provider 10/15/24 1259 Apply/Change Wound Dressing Right Heel Diabetic Ulcer Routine Active Jeannie Valle MD Wound Team Summary Assessment: Per assessment, diabetic heel wound has improved a/e/b decreased wound depth. Wound presents with awound bed of moist, pale, granulation bordered by well- defined wound edges. Surrounding skin is intact. No obvious signs of infection present. Wound Team Plan: RIGHT HEEL: Wash and dry area --> Apply Mepilex-Ag --> Wrap with kerlix. Change M,W,F. - Wound Care will continue to follow. Cornell Hinojosa RN 10/15/2024 12:59 PM * Progress Notes - Jeannie Valle MD - 10/15/2024 12:40 PM EDT Images from the original note were not included. [facility] Medicine Inpatient Progress Note Patient: Mundo Fernandez PCP: Leonard Botello MD Date: 10/15/2024 Subjective No new concerns reported by staff. Awaiting placement. Laying on bed comfortably. No new complaints. Not in any distress. Review of Systems Unable to perform ROS: Psychiatric disorder Objective INPATENT MEDICATIONS Current Medications[1] ALLERGIES Allergies[2] 24 HOUR VITALS Temp: [36.2 ??C (97.2 ??F)-36.5 ??C (97.7 ??F)] 36.5 ??C (97.7 ??F) Heart Rate: [60-84] 76 Resp: [14-18] 14 BP: (117-160)/(55-74) 146/65 INTAKE/OUTPUT Intake/Output Summary (Last 24 hours) at 10/15/2024 1240 Last data filed at 10/15/2024 0800 Gross per 24 hour Intake 744 ml Output 2300 ml Net -1556 ml Physical Exam Constitutional: Appearance: He is normal weight. He is not toxic-appearing. Comments: Minimally verbal HENT: Head: Normocephalic. Comments: Very [place], some times sin actions help to communicate Eyes: Extraocular Movements: Extraocular movements intact. Pupils: Pupils are equal, round, and reactive to light. Cardiovascular: Rate and Rhythm: Normal rate and regular rhythm. Pulmonary: Effort: Pulmonary effort is normal. Breath sounds: Normal breath sounds. Abdominal: General: Abdomen is flat. There is no distension. Musculoskeletal: Cervical back: Normal range of motion and neck supple. Skin: General: Skin is warm. Findings: No lesion. Neurological: Mental Status: He is alert. Psychiatric: Attention and Perception: He is inattentive. Mood and Affect: Affect is flat. Cognition and Memory: Cognition is impaired. Memory is not impaired. Judgment: Judgment is impulsive. REVIEW OF LABORATORY DATA Lab Results Component Value Date WBC 7.44 10/02/2024 HGB 8.2 (L) 10/09/2024 HCT 23.7 (L) 10/09/2024 MCV 90 10/02/2024 PLT 119 (L) 10/02/2024 Lab Results Component Value Date GLUCOSE 96 10/07/2024 CALCIUM 7.2 (L) 10/07/2024 NA 125 (L) 10/07/2024 K 4.1 10/07/2024 CO2 23 10/07/2024 CL 92 (L) 10/07/2024 BUN 41 (H) 10/07/2024 CREATININE 6.91 (H) 10/07/2024 Lab Results Component Value Date ALT 6 (L) 09/30/2024 AST 13 09/30/2024 ALKPHOS 42 09/30/2024 BILITOT 0.6 09/30/2024 Lab Results Component Value Date INR 1.0 12/07/2022 REVIEW OF IMAGING STUDIES XR Chest 1 View Narrative: CLINICAL INDICATION: discharge clearance TECHNIQUE: XR CHEST 1 VIEW COMPARISON: April 28, 2023 FINDINGS: Small pleural effusions versus pleural thickening, decreased since prior. Low lung volumes with bilateral atelectasis. No consolidation. No pneumothorax. Impression: Decreased pleural effusions. CRITICAL RESULT: No. COMMUNICATION: Per this written report. Drafted by Mundo Martins MD on 08/25/2023 12:16 PM Final report signed by Mundo Martins MD on 08/25/2023 12:18 PM REVIEW OF PROCEDURES Assessment and Plan: Aakash Fernandez is a [place] 64 y.o. male with past history of ESRD on HD MWF, T2DM, HTN, chronic HFrEF, PAD, HLD, IDD/dementia, depression/anxiety, insomnia, chronic HCV, DM foot ulcer c/b OM s/p bilateral transmetarsal amputation, and debility sent [place] [facility] [place] to ED for medical evaluationafter refusing care. Declining functional status - Transferred to [place] [facility] [place] a week ago and since arrival refusing HD, to eat, participate, or take medications - sent to ED for medical evaluation and need for higher level of assist/unable to care for self/non-compliance - afebrile, VSS, no acute complaints PLAN - PT/OT consult re: placement - legal guardian is his brother, Chris Fernandez, #[phone] (not answering calls since patient admission) Essential (primary) hypertension - increased carvedilol to 25 mg twice daily, nifedipine XL 60 mg daily (hold for BP <120/80 on dialysis days) At high risk for falls - wheelchair dependent, fall precautions ESRD (end stage renal disease) on dialysis ([facility]) - HD (MWF) - renally dose meds based on EGFR - strict I/O, daily weight Electrolyte and fluid disorder Hyponatremia Chronic kidney disease-mineral and bone disorder (CKD-MBD) - continue Renvela 800 mg TID with meals Anemia in chronic kidney disease (CODE) - Hgb stable, transfuse to keep >7 Type 2 diabetes mellitus with chronic kidney disease on chronic dialysis ([facility]) - last A1c 6.3 PLAN - will dc SSI given minimal Insulin need Dementia (CMS/HCC) - Psych recommended; Asenapine 3.8 mg daily restarted (not on formulary his caregiver brought his patches) Mild intellectual disabilities - last neuropsych exam in 2023 found to not have capacity, brother is legal guardian - continue Depakote Sprinkle 250 mg twice daily Anxiety and depression - continue Sertraline 75 mg daily Insomnia, unspecified - continue trazodone 100 mg at bedtime, melatonin 3 mg at bedtime Arterial insufficiency (CMS/HCC) - continue aspirin 81 mg daily, clopidogrel 75 mg daily Mixed hyperlipidemia - continue atorvastatin 40 mg at bedtime 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 - continue statin, ASA, clopidogrel as above Gastroesophageal reflux disease without esophagitis - continue daily PPI Sensorineural hearing loss, bilateral Wears hearing aid in both ears - not present with patient on admission, have tried to call caregiver to bring them to hospital with no luck Chronic combined systolic (congestive) and diastolic (congestive) heart failure (CMS/HCC) - ECHO 06/27/2022: EF 45%, abnormal diastolic dysfunction - strict I/O, 2 L fluid restriction, cardiac/renal/CCHO2 diet Chronic hepatitis C without hepatic coma (CMS/HCC) - HCV RNA PCR not detected 07/13/2023 History of transmetatarsal amputation of foot (CMS/HCC) - chronic OM 2/2 DM foot ulcers s/p bilateral transmetarsal amputation Dispo : pending placement. [1] Current Facility-Administered Medications: acetaminophen (Tylenol) tablet 650 mg, 650 mg, Oral, q6h PRN, Lala Valdes APRN alteplase (Cathflo Activase) injection 4 mg, 4 mg, Intracatheter, PRN, Daphne Landry APRN, DNP Asenapine 3.8mg/24 hr patch, 1 patch, Transdermal, q24h, Leda Gaitan MD, 1 patchat 10/14/24 1649 aspirin chewable tablet 81 mg, 81 mg, Oral, Daily, Lala Valdes, MEDICAL ADMINISTRATIVE TECHNICIAN, 81 mg at 10/15/24 09 atorvastatin (Lipitor) tablet 40 mg, 40 mg, Oral, Nightly, Lala Valdes, MEDICAL ADMINISTRATIVE TECHNICIAN, 40 mg at 10/14/242046 bisacodyl (Dulcolax) EC tablet 10 mg, 10 mg, Oral, Daily PRN, Lala Valdes, MEDICAL ADMINISTRATIVE TECHNICIAN, 10 mg at 10/15/24 0607 cadexomer iodine (Iodosorb) 0.9 % gel, , Topical, Daily, Tana Wooten MD, Given at 10/15/24 0911 carvedilol (Coreg) tablet 25 mg, 25 mg, Oral, BID, Leda Gaitan MD, 25 mg at 10/15/24 09 clopidogrel (Plavix) tablet 75 mg, 75 mg, Oral, Daily, Lala Valdes, MEDICAL ADMINISTRATIVE TECHNICIAN, 75 mg at 10/15/24 0911 glucose (Glutose) 40 % oral gel 15-30 grams of glucose, 15-30 grams of glucose, Sublingual, q15 minPRN OR dextrose 10 % (D10W) bolus 125 mL, 125 mL, Intravenous, q15 min PRN OR dextrose 10 %(D10W) bolus 250 mL, 250 mL, Intravenous, q15 min PRN OR glucagon (human recombinant) injection1 mg, 1 mg, Intramuscular, q15 min PRN, Lala Valdes, MEDICAL ADMINISTRATIVE TECHNICIAN divalproex sprinkle (Depakote Sprinkle) DR capsule 250 mg, 250 mg, Oral, BID, Lala Valdes MEDICAL ADMINISTRATIVE TECHNICIAN,250 mg at 10/15/24 09 heparin (porcine) injection 5,000 Units, 5,000 Units, Subcutaneous, q8h RAFAT, Lala Valdes MEDICAL ADMINISTRATIVE TECHNICIAN, 5,000 Units at 10/15/24 0605 melatonin tablet 3 mg, 3 mg, Oral, Nightly, Lala Valdes MEDICAL ADMINISTRATIVE TECHNICIAN, 3 mg at 10/14/242046 NIFEdipine XL (Procardia XL) 24 hr tablet 60 mg, 60 mg, Oral, Daily, Leda Gaitan MD, 60 mg at 10/15/24 09 polyethylene glycol (Miralax) packet 17 g, 17 g, Oral, Daily, Lala Valdes, MEDICAL ADMINISTRATIVE TECHNICIAN, 17 g at 10/15/24 1118 sertraline (Zoloft) tablet 75 mg, 75 mg, Oral, Daily, Lala Valdes, MEDICAL ADMINISTRATIVE TECHNICIAN, 75 mg at 10/15/24 0911 Insert peripheral IV, , , Once AND Saline lock IV, , , Once AND sodium chloride 0.9 % flush10 mL, 10 mL, Intravenous, q12h, 10 mL at 10/13/24 1759 AND sodium chloride 0.9 % flush 10 mL, 10 mL, Intravenous, PRN, Lala Valdes, MEDICAL ADMINISTRATIVE TECHNICIAN sodium citrate anticoagulant 4 % flush 6 mL, 6 mL, Intracatheter, PRN, Rust, Daphne Galeana APRN, DNP traZODone (Desyrel) tablet 100 mg, 100 mg, Oral, Nightly, Lala Valdes, MEDICAL ADMINISTRATIVE TECHNICIAN, 100 mg at 10/14/242046 Facility-Administered Medications Ordered in Other Encounters: lidocaine-EPINEPHrine (PF) (Xylocaine W/EPI) 1 %-1:875471 injection - Pyxis Override Pull, , , , lidocaine-EPINEPHrine (PF) (Xylocaine W/EPI) 1 %-1:812936 injection - Pyxis Override Pull, , , , [2] No Known Allergies * Progress Notes - Sameera Garg MD - 10/15/2024 9:39 AM EDT [facility] Progress Note Patient: Mundo Fernandez Admit Date: 09/30/2024 Subjective Reviewed the interval events, flowsheets, labs and the notes. Mr. Fernandez was evaluated at bedside today. Had iHD yesterday with 2L UF; tolerated well without issues. Denies any concerns. Objective Visit Vitals BP 121/65 (BP Location: Left arm, Patient Position: Lying) Pulse 65 Temp 36.5 ??C (97.7 ??F) (Oral) Resp 14 Ht 1.778 m (5' 10 ) Wt 75.5 kg (166 lb 7.2 oz) SpO2 94% BMI 23.88 kg/m?? Smoking Status Never BSA 1.93 m?? Temp: [36.2 ??C (97.2 ??F)-36.5 ??C (97.7 ??F)] 36.5 ??C (97.7 ??F) Heart Rate: [60-86] 65 Resp: [14-18] 14 BP: (117-160)/(54-74) 121/65 Problem List Principal Problem: Declining functional status Active Problems: ESRD (end stage renal disease) on dialysis ([facility]) Essential (primary) hypertension Type 2 diabetes mellitus with chronic kidney disease on chronic dialysis ([facility]/HCC) Wears hearing aid in both ears At high risk for falls Insomnia, unspecified Chronic combined systolic (congestive) and diastolic (congestive) heart failure ([facility]/HCC) Dementia ([facility]) Chronic hepatitis C without hepatic coma ([facility]) Arterial insufficiency ([facility]) Gastroesophageal reflux disease without esophagitis Mixed hyperlipidemia Anxiety and depression Mild intellectual disabilities Sensorineural hearing loss, bilateral History of transmetatarsal amputation of foot ([facility]) Electrolyte and fluid disorder Anemia in chronic kidney disease (CODE) Chronic kidney disease-mineral and bone disorder (CKD-MBD) 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 ESRD (end stage renal disease) ([facility]) Medications: Current Medications: Current Scheduled Medications[1] Current Continuous Medications[2] Physical Exam: GEN: no acute distress, lying in bed SKIN : warm and dry, color normal, turgor normal, no lesions. RESPIRATORY/THORAX : Respirations non-labored, on room air CARDIOVASCULAR: Warm and well perfused GASTROINTESTINAL: soft, NT, ND EXTREMITIES: no LE edema, no rashes noted NEURO: Alert, hard of hearing, answers appropriately, follows commands ACCESS: RUE AVF Laboratory: Results from last 7 days Lab Units 10/09/24 1545 HEMOGLOBIN g/dL 8.2* HEMATOCRIT % 23.7* No lab exists for component: ALB Lab Results Component Value Date USG 1.008 04/14/2023 FLORY >=8.5 (H) 04/14/2023 URINEPRO >=300 (A) 04/14/2023 GLUCOSEU 100 (A) 04/14/2023 BLOODU Trace (A) 04/14/2023 NITRITEU Negative 04/14/2023 URBC 4 - 10 (A) 04/14/2023 HYLCST 0 - 2 04/14/2023 BACTERIAU Present 04/14/2023 SQUAMOUS 3 - 5 04/14/2023 Lab Results Component Value Date NAPA 350 12/10/2018 NAUR 31 12/10/2018 CREATUR 158 12/10/2018 PROTUR 153 11/12/2018 UTPCR 1.5 (H) 11/12/2018 Lab Results Component Value Date FERRITIN 1,701 (H) 10/02/2024 TRANSFERNSAT 45 09/30/2024 IRON 66 09/30/2024 TIBC 146 (L) 09/30/2024 TRANSFERRIN 117 (L) 09/30/2024 Lab Results Component Value Date PTH 9 10/02/2024 VITD25 33.5 10/02/2024 Impression & Plan: Mundo Fernandez is a 62 y.o. male with ESRD on iHD MWF, T2DM, HTN, chronic HFrEF, PAD, HLD, IDD/dementia, depression/anxiety, insomnia, chronic HCV, DM foot ulcer c/b OM s/p bilateral transmetarsal amputation, and debility presented to [facility] on 09/30 after refusing care at his [place] [facility]. Nephrology consulted for dialysis. Assessment: #ESRD on iHD - MWF at [facility] [address] [place] - AccesS: RUE AVG - EDW 67.5 Kg #HTN #Renal Osteodystrophy; secondary hyperparathyroidism #Anemia in ESRD #Disorders of electrolytes and acid/base due to renal insufficiency #Hypervolemia in renal insufficiency #Debility #T2DM #HFrEF #Dementia #Intellectual and developmental delay Recommendations and Plan - Continue iHD MWF while admitted; 3hrs, BFR 300-400 mL/min, DFR 600-800 mL/min, 3.5K, 2.5Ca, 32HCO3, 136Na, UF 1L, T35.5 - Iron parameters at goal; will follow for ANGELITA requirements - Renal diet as tolerated - Sevelamer held with Phos <4; will follow for Phos binder requirements - Strict I/Os and Daily weights - Management of other acute/chronic conditions per primary team - Avoid NSAIDs and other nephrotoxic mediations; Renally dose medications for ESRD on iHD. Please feel free to reach out if you have any questions or concerns. Sameera Garg MD Nephrology Fellow PGY-5 [1] Asenapine, 1 patch, Transdermal, q24h aspirin, 81 mg, Oral, Daily atorvastatin, 40 mg, Oral, Nightly cadexomer iodine, , Topical, Daily carvedilol, 25 mg, Oral, BID clopidogrel, 75 mg, Oral, Daily divalproex sprinkle, 250 mg, Oral, BID heparin (porcine), 5,000 Units, Subcutaneous, q8h RAFAT melatonin, 3 mg, Oral, Nightly NIFEdipine XL, 60 mg, Oral, Daily polyethylene glycol, 17 g, Oral, Daily sertraline, 75 mg, Oral, Daily sodium chloride, 10 mL, Intravenous, q12h traZODone, 100 mg, Oral, Nightly [2] Cosigned by Sherry Hinojosa MD at 10/15/2024 5:44 PM EDT Associated attestation - Sherry Hinojosa MD - 10/15/2024 5:44 PM EDT I saw and evaluated the patient with the resident/fellow. I discussed the case with the resident/fellow and agree with the findings and plan as documented. * Care Plan - Carri Chand - 10/15/2024 2:25 AM EDT Problem: Adult Inpatient Plan of Care Goal: Plan of Care Review Outcome: Ongoing, Progressing Flowsheets (Taken 10/15/2024218) Progress: improving Outcome Evaluation: Patient will remain free from harm during the shift. Plan of Care Reviewed With: patient Goal: Patient-Specific Goal (Individualized) Outcome: Ongoing, Progressing Flowsheets (Taken 10/14/20241999) Patient/Family-Specific Goals (Include Timeframe): patient will remain free of harm during the shift Individualized Care Needs: fluid restriction, skin integrity Anxieties, Fears or Concerns: none stated Goal: Absence of Hospital-Acquired Illness or Injury Outcome: Ongoing, Progressing Intervention: Prevent Skin Injury Flowsheets (Taken 10/15/2024218) Skin Protection: incontinence pads utilized Intervention: Prevent and Manage VTE (Venous Thromboembolism) Risk Flowsheets (Taken 10/14/20241999) VTE Prevention/Management: medication Intervention: Prevent Infection Flowsheets (Taken 10/15/2024218) Infection Prevention: hand hygiene promoted rest/sleep promoted Problem: Skin Injury Risk Increased Goal: Skin Health and Integrity Outcome: Ongoing, Progressing Intervention: Optimize Skin Protection Flowsheets Taken 10/15/2024218 Pressure Reduction Techniques: heels elevated off bed weight shift assistance provided Pressure Reduction Devices: positioning supports utilized Skin Protection: incontinence pads utilized Taken 10/14/20241999 Activity Management: activity adjusted per tolerance Head of Bed (HOB) Positioning: HOB elevated Intervention: Promote and Optimize Oral Intake Flowsheets (Taken 10/15/2024218) Oral Nutrition Promotion: rest periods promoted Nutrition Interventions: frequent small meals provided Problem: Wound Goal: Absence of Infection Signs and Symptoms Outcome: Ongoing, Progressing Intervention: Prevent or Manage Infection Flowsheets (Taken 10/15/2024218) Infection Management: aseptic technique maintained Fever Reduction/Comfort Measures: lightweight bedding lightweight clothing Isolation Precautions: precautions maintained Problem: Hemodialysis Goal: Safe, Effective Therapy Delivery Outcome: Ongoing, Progressing Intervention: Optimize Device Care and Function Flowsheets (Taken 10/15/2024218) Medication Review/Management: medications reviewed Goal: Effective Tissue Perfusion Outcome: Ongoing, Progressing Intervention: Optimize Blood Flow Flowsheets (Taken 10/15/2024218) Stabilization Measures: legs elevated Goal: Absence of Infection Signs and Symptoms Outcome: Ongoing, Progressing Intervention: Prevent or Manage Infection Flowsheets (Taken 10/15/2024218) Infection Management: aseptic technique maintained Fever Reduction/Comfort Measures: lightweight bedding lightweight clothing Infection Prevention: hand hygiene promoted rest/sleep promoted Problem: Self-Care Deficit Goal: Improved Ability to Complete Activities of Daily Living Outcome: Ongoing, Progressing Intervention: Promote Activity and Functional [place] Flowsheets Taken 10/15/2024218 Adaptive Equipment Use: use encouraged Self-Care Promotion: independence encouraged BADL personal objects within reach Taken 10/14/20241999 Activity Assistance Provided: assistance, 2 people Problem: Infection Goal: Absence of Infection Signs and Symptoms Outcome: Ongoing, Progressing Intervention: Prevent or Manage Infection Flowsheets (Taken 10/15/2024218) Infection Management: aseptic technique maintained Fever Reduction/Comfort Measures: lightweight bedding lightweight clothing Isolation Precautions: precautions maintained Problem: Diabetes Goal: Optimal Coping Outcome: Ongoing, Progressing Intervention: Support Wellbeing and Self-Management Success Flowsheets (Taken 10/15/2024218) Supportive Measures: active listening utilized relaxation techniques promoted Family/Support System Care: support provided Goal: Optimal Functional Ability Outcome: Ongoing, Progressing Intervention: Optimize Functional Ability Flowsheets Taken 10/15/2024218 Adaptive Equipment Use: use encouraged Self-Care Promotion: independence encouraged BADL personal objects within reach Taken 10/14/20241999 Activity Management: activity adjusted per tolerance Activity Assistance Provided: assistance, 2 people Goal: Blood Glucose Level Within Target Range Outcome: Ongoing, Progressing Intervention: Optimize Glycemic Control Flowsheets (Taken 10/15/2024218) Hyperglycemia Management: blood glucose monitored Goal: Minimize Hypoglycemia Risk Outcome: Ongoing, Progressing Intervention: Minimize and Manage Hypoglycemia Flowsheets (Taken 10/15/2024218) Hypoglycemia Management: blood glucose monitored * Progress Notes - Lamont Brumfield MD - 10/14/2024 4:55 PM EDT Images from the original note were not included. [facility] Inpatient Progress Note Patient: Mundo Fernandez PCP: Leonard Botello MD Date: 10/14/2024 Subjective No new concerns reported by staff. Tolerated HD today. Awaiting placement Review of Systems Unable to perform ROS: Psychiatric disorder Objective INPATENT MEDICATIONS Current Medications[1] ALLERGIES Allergies[2] 24 HOUR VITALS Temp: [36.2 ??C (97.1 ??F)-36.9 ??C (98.4 ??F)] 36.3 ??C (97.4 ??F) Heart Rate: [62-84] 84 BP: (131-168)/(64-74) 160/72 INTAKE/OUTPUT Intake/Output Summary (Last 24 hours) at 10/14/2024 1655 Last data filed at 10/14/2024 0902 Gross per 24 hour Intake 760 ml Output -- Net 760 ml Physical Exam Constitutional: General: He is not in acute distress. Appearance: He is normal weight. He is not toxic-appearing. Comments: Minimally verbal HENT: Head: Normocephalic. Comments: Very [place], some times sin actions help to communicate Right Ear: External ear normal. Left Ear: External ear normal. Nose: Nose normal. Mouth/Throat: Mouth: Mucous membranes are moist. Eyes: General: Right eye: No discharge. Left eye: No discharge. Extraocular Movements: Extraocular movements intact. Pupils: Pupils are equal, round, and reactive to light. Cardiovascular: Rate and Rhythm: Normal rate and regular rhythm. Pulmonary: Effort: Pulmonary effort is normal. Breath sounds: Normal breath sounds. Abdominal: General: Abdomen is flat. There is no distension. Musculoskeletal: General: No swelling, deformity or signs of injury. Cervical back: Normal range of motion and neck supple. Skin: General: Skin is warm. Findings: No lesion. Neurological: Mental Status: He is alert. Psychiatric: Attention and Perception: He is inattentive. Mood and Affect: Affect is inappropriate. Cognition and Memory: Cognition is impaired. Memory is impaired. Judgment: Judgment is impulsive. REVIEW OF LABORATORY DATA Lab Results Component Value Date WBC 7.44 10/02/2024 HGB 8.2 (L) 10/09/2024 HCT 23.7 (L) 10/09/2024 MCV 90 10/02/2024 PLT 119 (L) 10/02/2024 Lab Results Component Value Date GLUCOSE 96 10/07/2024 CALCIUM 7.2 (L) 10/07/2024 NA 125 (L) 10/07/2024 K 4.1 10/07/2024 CO2 23 10/07/2024 CL 92 (L) 10/07/2024 BUN 41 (H) 10/07/2024 CREATININE 6.91 (H) 10/07/2024 Lab Results Component Value Date ALT 6 (L) 09/30/2024 AST 13 09/30/2024 ALKPHOS 42 09/30/2024 BILITOT 0.6 09/30/2024 Lab Results Component Value Date INR 1.0 12/07/2022 REVIEW OF IMAGING STUDIES XR Chest 1 View Narrative: CLINICAL INDICATION: discharge clearance TECHNIQUE: XR CHEST 1 VIEW COMPARISON: April 28, 2023 FINDINGS: Small pleural effusions versus pleural thickening, decreased since prior. Low lung volumes with bilateral atelectasis. No consolidation. No pneumothorax. Impression: Decreased pleural effusions. CRITICAL RESULT: No. COMMUNICATION: Per this written report. Drafted by Mundo Martins MD on 08/25/2023 12:16 PM Final report signed by Mundo Martins MD on 08/25/2023 12:18 PM REVIEW OF PROCEDURES Assessment and Plan: Aakash Fernandez is a [place] 64 y.o. male with past history of ESRD on HD MWF, T2DM, HTN, chronic HFrEF, PAD, HLD, IDD/dementia, depression/anxiety, insomnia, chronic HCV, DM foot ulcer c/b OM s/p bilateral transmetarsal amputation, and debility sent [place] to ED for medical evaluationafter refusing care. Declining functional status - Transferred to [place] [facility] [place] a week ago and since arrival refusing HD, to eat, participate, or take medications - sent to ED for medical evaluation and need for higher level of assist/unable to care for self/non-compliance - afebrile, VSS, no acute complaints PLAN - PT/OT consult re: placement - legal guardian is his brother, Chris Fernandez, #[phone] (not answering calls since patient admission) Essential (primary) hypertension - increased carvedilol to 25 mg twice daily, nifedipine XL 60 mg daily (hold for BP <120/80 on dialysis days) At high risk for falls - wheelchair dependent, fall precautions ESRD (end stage renal disease) on dialysis ([facility]) - HD (MWF) - renally dose meds based on EGFR - strict I/O, daily weight Electrolyte and fluid disorder Hyponatremia Chronic kidney disease-mineral and bone disorder (CKD-MBD) - continue Renvela 800 mg TID with meals Anemia in chronic kidney disease (CODE) - Hgb stable, transfuse to keep >7 Type 2 diabetes mellitus with chronic kidney disease on chronic dialysis ([facility]) - last A1c 6.3 PLAN - will dc SSI given minimal Insulin need Dementia ([facility]) - Psych recommended; Asenapine 3.8 mg daily restarted (not on formulary his caregiver brought his patches) Mild intellectual disabilities - last neuropsych exam in 2023 found to not have capacity, brother is legal guardian - continue Depakote Sprinkle 250 mg twice daily Anxiety and depression - continue Sertraline 75 mg daily Insomnia, unspecified - continue trazodone 100 mg at bedtime, melatonin 3 mg at bedtime Arterial insufficiency ([facility]) - continue aspirin 81 mg daily, clopidogrel 75 mg daily Mixed hyperlipidemia - continue atorvastatin 40 mg at bedtime 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 - continue statin, ASA, clopidogrel as above Gastroesophageal reflux disease without esophagitis - continue daily PPI Sensorineural hearing loss, bilateral Wears hearing aid in both ears - not present with patient on admission, have tried to call caregiver to bring them to hospital with no luck Chronic combined systolic (congestive) and diastolic (congestive) heart failure (CMS/HCC) - ECHO 06/27/2022: EF 45%, abnormal diastolic dysfunction - strict I/O, 2 L fluid restriction, cardiac/renal/CCHO2 diet Chronic hepatitis C without hepatic coma (CMS/HCC) - HCV RNA PCR not detected 07/13/2023 History of transmetatarsal amputation of foot (CMS/HCC) - chronic OM 2/2 DM foot ulcers s/p bilateral transmetarsal amputation Inpatient Checklist: Inpatient checklist: - Bowel regimen: ducolax - Code status: Full Code - Diet: PO - DVT prophylaxis: heparin - Disposition: placement (possible APS report filled today) CODE STATUS: Full Code EMERGENCY CONTACT: Extended Emergency Contact Information Primary Emergency Contact: Chris Fernandez Mobile Relation: Legal Guardian Preferred language: Kosovan Repair Operator needed? No Secondary Emergency Contact: Mariel Chavez Address: [address] [place] [address] Mobile Relation: [employer] Developer Repair Operator needed? No Lamont Brumfield MD Division of Hospital Medicine [phone] or secure message [1] Current Facility-Administered Medications: acetaminophen (Tylenol) tablet 650 mg, 650 mg, Oral, q6h PRN, Laith Valdesana B, MEDICAL ADMINISTRATIVE TECHNICIAN alteplase (Cathflo Activase) injection 4 mg, 4 mg, Intracatheter, PRN, Daphne Landry APRN, DNP Asenapine 3.8mg/24 hr patch, 1 patch, Transdermal, q24h, Leda Gaitan MD, 1 patchat 10/14/24 1649 aspirin chewable tablet 81 mg, 81 mg, Oral, Daily, Lucio Gitana B, MEDICAL ADMINISTRATIVE TECHNICIAN, 81 mg at 10/14/24 0856 atorvastatin (Lipitor) tablet 40 mg, 40 mg, Oral, Nightly, Lala Valdes B, MEDICAL ADMINISTRATIVE TECHNICIAN, 40 mg at 10/13/242043 bisacodyl (Dulcolax) EC tablet 10 mg, 10 mg, Oral, Daily PRN, Lala Valdes, MEDICAL ADMINISTRATIVE TECHNICIAN, 10 mg at 10/13/24 0559 cadexomer iodine (Iodosorb) 0.9 % gel, , Topical, Daily, Tana Wooten MD, Given at 10/14/24 0903 carvedilol (Coreg) tablet 25 mg, 25 mg, Oral, BID, Leda Gaitan MD, 25 mg at 10/14/24 0856 clopidogrel (Plavix) tablet 75 mg, 75 mg, Oral, Daily, Lala Valdes, MEDICAL ADMINISTRATIVE TECHNICIAN, 75 mg at 10/14/24 0856 glucose (Glutose) 40 % oral gel 15-30 grams of glucose, 15-30 grams of glucose, Sublingual, q15 minPRN OR dextrose 10 % (D10W) bolus 125 mL, 125 mL, Intravenous, q15 min PRN OR dextrose 10 %(D10W) bolus 250 mL, 250 mL, Intravenous, q15 min PRN OR glucagon (human recombinant) injection1 mg, 1 mg, Intramuscular, q15 min PRN, Lala Valdes, MEDICAL ADMINISTRATIVE TECHNICIAN divalproex sprinkle (Depakote Sprinkle) DR capsule 250 mg, 250 mg, Oral, BID, Lala Valdes MEDICAL ADMINISTRATIVE TECHNICIAN,250 mg at 10/14/24 0856 heparin (porcine) injection 5,000 Units, 5,000 Units, Subcutaneous, q8h RAFAT, Lala Valdes MEDICAL ADMINISTRATIVE TECHNICIAN, 5,000 Units at 10/14/24 0627 melatonin tablet 3 mg, 3 mg, Oral, Nightly, Lala Valdes MEDICAL ADMINISTRATIVE TECHNICIAN, 3 mg at 10/13/242043 NIFEdipine XL (Procardia XL) 24 hr tablet 60 mg, 60 mg, Oral, Daily, Leda Gaitan MD, 60 mg at 10/14/24 0856 polyethylene glycol (Miralax) packet 17 g, 17 g, Oral, Daily, Lala Valdes, MEDICAL ADMINISTRATIVE TECHNICIAN, 17 g at 10/14/24 0856 sertraline (Zoloft) tablet 75 mg, 75 mg, Oral, Daily, Lala Valdes, MEDICAL ADMINISTRATIVE TECHNICIAN, 75 mg at 10/14/24 0856 Insert peripheral IV, , , Once AND Saline lock IV, , , Once AND sodium chloride 0.9 % flush10 mL, 10 mL, Intravenous, q12h, 10 mL at 10/13/24 1759 AND sodium chloride 0.9 % flush 10 mL, 10 mL, Intravenous, PRN, Lala Valdes B, MEDICAL ADMINISTRATIVE TECHNICIAN sodium citrate anticoagulant 4 % flush 6 mL, 6 mL, Intracatheter, PRN, Rust, Daphne Galeana, MEDICAL ADMINISTRATIVE TECHNICIAN, DNP traZODone (Desyrel) tablet 100 mg, 100 mg, Oral, Nightly, LucioLala B, MEDICAL ADMINISTRATIVE TECHNICIAN, 100 mg at 10/13/242043 Facility-Administered Medications Ordered in Other Encounters: lidocaine-EPINEPHrine (PF) (Xylocaine W/EPI) 1 %-1:514028 injection - Pyxis Override Pull, , , , lidocaine-EPINEPHrine (PF) (Xylocaine W/EPI) 1 %-1:630772 injection - Pyxis Override Pull, , , , [2] No Known Allergies * Care Plan - April Merida RN - 10/14/2024 2:36 PM EDT Problem: Adult Inpatient Plan of Care Goal: Plan of Care Review Outcome: Ongoing, Progressing Flowsheets (Taken 10/14/2024 1430) Progress: improving Outcome Evaluation: Patient will remain free from harm throughout the shift Plan of Care Reviewed With: patient Goal: Patient-Specific Goal (Individualized) Outcome: Ongoing, Progressing Flowsheets (Taken 10/14/2024 0800) Patient/Family-Specific Goals (Include Timeframe): Patient will receive wound care per orders throught the shift Individualized Care Needs: wound care Anxieties, Fears or Concerns: none stated Goal: Absence of Hospital-Acquired Illness or Injury Outcome: Ongoing, Progressing Intervention: Identify and Manage Fall Risk Flowsheets (Taken 10/14/2024 0800) Safety Promotion/Fall Prevention: fall prevention program maintained clutter-free environment maintained safety round/check completed Intervention: Prevent Skin Injury Flowsheets Taken 10/14/2024 1430 Skin Protection: incontinence pads utilized Taken 10/14/2024 1200 Body Position: refused by patient Intervention: Prevent and Manage VTE (Venous Thromboembolism) Risk Flowsheets (Taken 10/14/2024 1430) VTE Prevention/Management: medication Intervention: Prevent Infection Flowsheets (Taken 10/14/2024 1430) Infection Prevention: hand hygiene promoted rest/sleep promoted Goal: Optimal Comfort and Wellbeing Outcome: Ongoing, Progressing Intervention: Monitor Pain and Promote Comfort Flowsheets (Taken 10/14/2024 1430) Pain Management Interventions: pillow support provided position adjusted Intervention: Provide Person-Centered Care Flowsheets (Taken 10/14/2024 1430) Trust Relationship/Rapport: care explained choices provided questions answered questions encouraged Problem: Skin Injury Risk Increased Goal: Skin Health and Integrity Outcome: Ongoing, Progressing Intervention: Optimize Skin Protection Flowsheets (Taken 10/14/2024 1430) Activity Management: activity adjusted per tolerance Pressure Reduction Techniques: heels elevated off bed weight shift assistance provided Pressure Reduction Devices: positioning supports utilized Skin Protection: incontinence pads utilized Head of Bed (HOB) Positioning: HOB elevated Intervention: Promote and Optimize Oral Intake Flowsheets (Taken 10/14/2024 1430) Oral Nutrition Promotion: rest periods promoted Nutrition Interventions: frequent small meals provided food preferences provided Problem: Fall Injury Risk Goal: Absence of Fall and Fall-Related Injury Outcome: Ongoing, Progressing Intervention: Identify and Manage Contributors Flowsheets (Taken 10/14/2024 1430) Medication Review/Management: medications reviewed Self-Care Promotion: independence encouraged BADL personal objects within reach Intervention: Promote Injury-Free Environment Flowsheets (Taken 10/14/2024 0800) Safety Promotion/Fall Prevention: fall prevention program maintained clutter-free environment maintained safety round/check completed Problem: Wound Goal: Absence of Infection Signs and Symptoms Outcome: Ongoing, Progressing Intervention: Prevent or Manage Infection Flowsheets (Taken 10/14/2024 1430) Infection Management: aseptic technique maintained Fever Reduction/Comfort Measures: lightweight bedding lightweight clothing Goal: Skin Health and Integrity Outcome: Ongoing, Progressing Intervention: Optimize Skin Protection Flowsheets (Taken 10/14/2024 1430) Activity Management: activity adjusted per tolerance Pressure Reduction Techniques: heels elevated off bed weight shift assistance provided Pressure Reduction Devices: positioning supports utilized Skin Protection: incontinence pads utilized Head of Bed (HOB) Positioning: HOB elevated Goal: Optimal Wound Healing Outcome: Ongoing, Progressing Intervention: Promote Wound Healing Flowsheets (Taken 10/14/2024 1430) Sleep/Rest Enhancement: awakenings minimized natural light exposure provided regular sleep/rest pattern promoted relaxation techniques promoted noise level reduced Problem: Hemodialysis Goal: Safe, Effective Therapy Delivery Outcome: Ongoing, Progressing Intervention: Optimize Device Care and Function Flowsheets (Taken 10/14/2024 1430) Medication Review/Management: medications reviewed Goal: Effective Tissue Perfusion Outcome: Ongoing, Progressing Intervention: Optimize Blood Flow Flowsheets (Taken 10/14/2024 1430) Stabilization Measures: legs elevated Goal: Absence of Infection Signs and Symptoms Outcome: Ongoing, Progressing Intervention: Prevent or Manage Infection Flowsheets (Taken 10/14/2024 1430) Infection Management: aseptic technique maintained Fever Reduction/Comfort Measures: lightweight bedding lightweight clothing Infection Prevention: hand hygiene promoted rest/sleep promoted Problem: Self-Care Deficit Goal: Improved Ability to Complete Activities of Daily Living Outcome: Ongoing, Progressing Intervention: Promote Activity and Functional [place] Flowsheets (Taken 10/14/2024 1430) Activity Assistance Provided: assistance, 2 people Adaptive Equipment Use: use encouraged Self-Care Promotion: independence encouraged BADL personal objects within reach Problem: Infection Goal: Absence of Infection Signs and Symptoms Outcome: Ongoing, Progressing Intervention: Prevent or Manage Infection Flowsheets (Taken 10/14/2024 1430) Infection Management: aseptic technique maintained Fever Reduction/Comfort Measures: lightweight bedding lightweight clothing Problem: Diabetes Goal: Optimal Coping Outcome: Ongoing, Progressing Intervention: Support Wellbeing and Self-Management [place] Flowsheets (Taken 10/14/2024 1430) Supportive Measures: relaxation techniques promoted active listening utilized Family/Support System Care: support provided Goal: Optimal Functional Ability Outcome: Ongoing, Progressing Intervention: Optimize Functional Ability Flowsheets (Taken 10/14/2024 1430) Activity Management: activity adjusted per tolerance Activity Assistance Provided: assistance, 2 people Adaptive Equipment Use: use encouraged Self-Care Promotion: independence encouraged BADL personal objects within reach Goal: Blood Glucose Level Within Target Range Outcome: Ongoing, Progressing Intervention: Optimize Glycemic Control Flowsheets (Taken 10/14/2024 1430) Hyperglycemia Management: blood glucose monitored Goal: Minimize Hypoglycemia Risk Outcome: Ongoing, Progressing Intervention: Minimize and Manage Hypoglycemia Flowsheets (Taken 10/14/2024 1430) Hypoglycemia Management: blood glucose monitored Problem: Mobility Impairment Goal: Optimal Mobility Outcome: Ongoing, Progressing Intervention: Optimize Mobility Flowsheets (Taken 10/14/2024 1430) Activity Management: activity adjusted per tolerance Positioning/Transfer Devices: pillows * Progress Notes - Karma Brambila - 10/14/2024 12:03 PM EDT Case Management Adult Progress Note Mundo Fernandez 64 y.o. male CSN: [id number] Admission: 09/30/2024 3:29 PM Primary Problem: Declining functional status Anticipated Discharge Date: TBD Has Discharge Plans Changed? No Medicare Second Notice: Housing Circumstances: Not Applicable Housing Circumstances Action Taken: Medically Ready for Discharge: Additional Comments Plan of care and discharge plan reviewed with treatment team this AM. Plan for continued HD as per outpatient, PT/OT interventions, and management of chronic conditions. Anticipate discharge to [facility]/LTC facility. Message left for call back from [facility] ([phone]). Will secure transport after placement confirmed. Chris Osuna, is guardian; will update after confirmation from facility received. Karma Brambila RN, BSN Case Management * Consults - Lexi Hernandez RD - 10/14/2024 12:00 PM EDT Adult Nutrition Evaluation Note Mundo Fernandez 64 y.o. male CSN: [id number] Room/Bed 710/710A Nutrition evaluation type: assessment Reason for evaluation: [facility] course: Pt is a 64 y.o. male who presented to the ED on 09/30 from his [place] [facility] for medical evaluation after refusing care. Past medical/ surgical history: Past Medical History[1] Surgical History[2] Social history: reviewed Additional comments: 10/14: Pt out of room for dialysis at time of visit. Tolerating PO well with good intakes per nursing documentation. LBM recorded on 10/03, receiving Miralax. Vitals and Basic Assessment: BP: 131/64 Temp: (!) 36.2 ??C (97.2 ??F) Oxygen Therapy: None (Room air) O2 Delivery Method: Nasal cannula [place] Coma Scale Score: 14 Sav Scale Score: 16 Most Recent BM Date: 10/03/24 GI Symptoms: None Edema: Generalized Skin: diabetic ulcer right heel (09/30) Allergies: NKFA per EMR Medications: Current Scheduled Medications[3] Current PRN Medications[4] Meds were reviewed: Yes Labs: Lab Results Component Value Date GLUCOSE 96 10/07/2024 CALCIUM 7.2 (L) 10/07/2024 NA 125 (L) 10/07/2024 K 4.1 10/07/2024 CO2 23 10/07/2024 CL 92 (L) 10/07/2024 BUN 41 (H) 10/07/2024 CREATININE 6.91 (H) 10/07/2024 PHOS 4.2 10/07/2024 MG 1.6 (L) 10/07/2024 HGBA1C 6.3 (H) 09/30/2024 POCT Glu: 85-152 mg/dL (10/01-10/07); 82-252 mg/dL (10/08-10/14) Lab Results Component Value Date ALBUMIN 3.1 (L) 10/07/2024 Albumin is a negative acute-phase reactant, therefore it is not a good indicator of nutrition status. Anthropometrics: Height: 177.8 cm (5' 10 ) Weight: 74.7 kg (164 lb 10.9 oz) BMI (Calculated): 23.63 Weight Evaluation: Overweight (BMI 25-29.9) Round Top Body Weight (kg): 75.5 Percent Round Top Body Weight: 112 Wt Readings from Last 10 Encounters: 10/14/24 74.7 kg (164 lb 10.9 oz) 08/18/23 68.1 kg (150 lb 2.1 oz) 04/14/23 63.4 kg (139 lb 12.4 oz) 12/31/22 67 kg (147 lb 11.3 oz) 11/29/22 71.2 kg (157 lb) 10/29/22 71.2 kg (157 lb) 09/13/22 68.9 kg (152 lb) 09/09/22 68.6 kg (151 lb 3.8 oz) 08/05/22 75 kg (165 lb 5.5 oz) 07/27/22 72.1 kg (159 lb) Estimated Needs: Kcal/ K-30 Kcal Provided: 0639-5488 Kcal Needs Based On: Current weight (84.4 kg) Gm Protein/ Kg : 1.2-1.5 Protein Provided: 101-127 Protein Needs Based On: Current weight (84.4 kg) Fluid Provided: 1 ml/kcal or per MD team Metabolic Cart Study Results: Current Nutrition Intake: Diet Supplements: None Diet Order: Adult Diet Diet Texture: Regular Adult Carbohydrate Restriction: Consistent CHO 3 (7631-5357 Preet, 95 g/meal) Adult Sodium Restriction: 2,000 mg Na Fat Restriction: Cardiac Electrolyte Restriction: Renal Adult Fluid Restriction / 24 hr: 2000 ml fluid Percent Meals Eaten (%): 71% avg x 15 meals (10/07-10/14) Diet Experience and Nutrition History: Diet Education Provided: Will monitor Pertinent home medications: Medications Ordered Prior to Encounter[5] Confucianist needs: Nutrition Focused Physical Exam: Unable to Complete Exam: Unable to access exam locations (off of floor for dialysis) Physical exam performed on (date): pending Assessment of Malnutrition: Nutrition Problem: Increased nutrient needs (kcal/protein) related to increased metabolic demands as evidenced by ESRDon HD. Status of Nutrition Diagnosis: Ongoing Nutrition Interventions and Recommendations: Continue current diet as tolerated. Removing Renal modification as elytes WNLs and stable on HD. Monitor need for ONS as appropriate. Obtain weight 2-3x weekly after HD sessions for most accurate dry weight. Replace elytes per protocol as appropriate. Nursing: please document all PO intakes in the I/Os section of Flowsheets daily. Nutrition Monitoring and Goals: Pt will tolerate >75% meal intakes. (Not met 10/14, continue) Pt will maintain dry body weight this admission. (Monitoring) Will monitor PO intake, weight, skin, labs, nutrition status per acuity. (Ongoing) NFPE on f/up as feasible. (New) Acuity Level: 1 x2 Lexi Hernandez, RD, MS, LD [1] Past Medical History: Diagnosis Date Alcohol use disorder in remission Anemia in chronic kidney disease (CODE) 04/30/2023 Anxiety Arterial insufficiency (CMS/HCC) 05/18/2021 Benign prostatic hyperplasia Central line-associated bloodstream infection 06/29/2022 Chronic combined systolic (congestive) and diastolic (congestive) heart failure (CMS/HCC) 02/18/2022 Chronic hepatitis C without hepatic coma (CMS/HCC) 06/03/2014 Dementia (CMS/HCC) 02/18/2022 Depression Diabetic peripheral neuropathy ([facility]) ESRD (end stage renal disease) on dialysis ([facility]) 09/16/2021 Essential hypertension 11/23/2011 GERD (gastroesophageal reflux disease) Hemorrhoids Hyperlipidemia Hypoparathyroidism 11/23/2011 Infection of AV graft for dialysis ([facility]) 02/18/2022 Added automatically from request for surgery [id number] Insomnia, unspecified 12/22/2021 Methicillin resistant Staphylococcus aureus infection, unspecified site Mild intellectual disabilities 08/30/2019 MSSA bacteremia 03/04/2022 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 06/07/2024 Sensorineural hearing loss, bilateral 01/11/2018 Type 2 diabetes mellitus [2] Past Surgical History: Procedure Laterality Date CATARACT EXTRACTION W/ INTRAOCULAR LENS IMPLANT N/A Cataract Phacoemulsification With Intraocular Lens Implantation from [facility] EXPLORATORY LAPAROTOMY stab incision abdomen EYE SURGERY N/A Eye Surgery from [facility] FOOT SURGERY N/A Surgery Foot Amputation Metatarsal And Toe from [facility] OTHER SURGICAL HISTORY Right Tympanic Membrane Repair - Right Ear from [facility] OTHER SURGICAL HISTORY Right Surgery Right Foot Amputation MTP from [facility] [3] Asenapine, 1 patch, Transdermal, q24h aspirin, 81 mg, Oral, Daily atorvastatin, 40 mg, Oral, Nightly cadexomer iodine, , Topical, Daily carvedilol, 25 mg, Oral, BID clopidogrel, 75 mg, Oral, Daily divalproex sprinkle, 250 mg, Oral, BID heparin (porcine), 5,000 Units, Subcutaneous, q8h RAFAT melatonin, 3 mg, Oral, Nightly NIFEdipine XL, 60 mg, Oral, Daily polyethylene glycol, 17 g, Oral, Daily sertraline, 75 mg, Oral, Daily Insert peripheral IV, , , Once AND Saline lock IV, , , Once AND sodium chloride, 10 mL, Intravenous, q12h AND sodium chloride, 10 mL, Intravenous, PRN traZODone, 100 mg, Oral, Nightly [4] PRN medications: acetaminophen, alteplase, bisacodyl, glucose OR dextrose 10 % OR dextrose 10 % OR glucagon (human recombinant), Insert peripheral IV AND Saline lock IV AND sodium chloride AND sodium chloride, sodium citrate anticoagulant [5] Current Facility-Administered Medications on File Prior to Encounter Medication Dose Route Frequency Provider Last Rate Last Admin lidocaine-EPINEPHrine (PF) (Xylocaine W/EPI) 1 %-1:057494 injection - Pyxis Override Pull lidocaine-EPINEPHrine (PF) (Xylocaine W/EPI) 1 %-1:969968 injection - Pyxis Override Pull Current Outpatient Medications on File Prior to Encounter Medication Sig Dispense Refill Asenapine (Secuado) 3.8 MG/24HR patch [address] 1 patch on the skin daily. ASPIRIN 81 MG chewable tablet Chew 1 tablet daily. atorvastatin (Lipitor) 40 MG tablet Take 1 tablet by mouth nightly. B complex-vitamin C-folic acid (Nephro-Salvador) 0.8 MG tablet Take 1 tablet by mouth daily. Calcium Carbonate (CALCIUM 600 PO) Take 2 tablets by mouth nightly. carvedilol (Coreg) 12.5 MG tablet Take 1 tablet by mouth daily. clopidogrel (Plavix) 75 MG tablet Take 1 tablet by mouth daily. divalproex sprinkle (Depakote Sprinkles) [address] capsule Take 2 capsules by mouth 2 times a day. insulin glargine (Lantus) 100 UNIT/ML injection vial Inject 5 Units under the skin nightly. insulin lispro (Admelog, HumaLOG) 100 UNIT/ML injection pen Inject 2 Units under the skin 3 times aday with meals. Injected per sliding scale melatonin tablet Take 3 tablets by mouth at night as needed for sleep. NIFEdipine XL (Procardia XL) 30 MG 24 hr tablet Take 3 tablets (90 mg) by mouth 1 (one) time each day at the same time. Do not crush, chew, or split. 90 tablet 0 sertraline (Zoloft) 25 MG tablet Take 1 tablet by mouth daily. Take with 50mg tablet for total daily dose of 75mg. sertraline (Zoloft) 50 MG tablet Take 1 tablet by mouth daily. Take with 25mg tablet for total daily dose of 75mg. sevelamer carbonate (Renvela) 800 MG tablet Take 1 tablet by mouth 3 times a day with meals. Swallow tablet whole; do not crush, break, or chew. sodium zirconium cyclosilicate (Lokelma) 10 g packet Take 10 g by mouth daily. traZODone (Desyrel) 100 MG tablet Take 1 tablet (100 mg) by mouth every night. 30 tablet 2 * Progress Notes - Sameera Garg MD - 10/14/2024 10:21 AM EDT Nephrology Progress Note Patient: Mundo Fernandez Admit Date: 09/30/2024 Subjective Reviewed the interval events, flowsheets, labs and the notes. Mr. Fernandez was evaluated in HD unit today. Tolerating dialysis without issues at time of my evaluation. Denies and concerns. Objective Visit Vitals BP (!) 147/67 (BP Location: Left arm, Patient Position: Lying) Pulse 71 Temp 36.9 ??C (98.4 ??F) (Oral) Resp 16 Ht 1.778 m (5' 10 ) Wt 74.7 kg (164 lb 10.9 oz) SpO2 98% BMI 23.63 kg/m?? Smoking Status Never BSA 1.92 m?? Temp: [36.2 ??C (97.1 ??F)-36.9 ??C (98.4 ??F)] 36.9 ??C (98.4 ??F) Heart Rate: [67-75] 71 BP: (132-168)/(65-78) 147/67 Problem List Principal Problem: Declining functional status Active Problems: ESRD (end stage renal disease) on dialysis ([facility]) Essential (primary) hypertension 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) Wears hearing aid in both ears At high risk for falls Insomnia, unspecified Chronic combined systolic (congestive) and diastolic (congestive) heart failure (CMS/HCC) Dementia (CMS/HCC) Chronic hepatitis C without hepatic coma (CMS/HCC) Arterial insufficiency (CMS/HCC) Gastroesophageal reflux disease without esophagitis Mixed hyperlipidemia Anxiety and depression Mild intellectual disabilities Sensorineural hearing loss, bilateral History of transmetatarsal amputation of foot (CMS/HCC) Electrolyte and fluid disorder Anemia in chronic kidney disease (CODE) Chronic kidney disease-mineral and bone disorder (CKD-MBD) 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 ESRD (end stage renal disease) ([facility]) Medications: Current Medications: Current Scheduled Medications[1] Current Continuous Medications[2] Physical Exam: GEN: no acute distress, sitting in bed SKIN : warm and dry, color normal, turgor normal, no lesions. HEAD/NECK : neck supple, no apparent injury. RESPIRATORY/THORAX : Respirations non-labored, on room air CARDIOVASCULAR: Warm and well perfused GASTROINTESTINAL: soft, NT, ND EXTREMITIES: no LE edema, no rashes noted NEURO: Alert, hard of hearing, answers appropriately, follows commands ACCESS: RUE AVF Laboratory: Results from last 7 days Lab Units 10/09/24 1545 HEMOGLOBIN g/dL 8.2* HEMATOCRIT % 23.7* No lab exists for component: ALB Lab Results Component Value Date USG 1.008 04/14/2023 FLORY >=8.5 (H) 04/14/2023 URINEPRO >=300 (A) 04/14/2023 GLUCOSEU 100 (A) 04/14/2023 BLOODU Trace (A) 04/14/2023 NITRITEU Negative 04/14/2023 URBC 4 - 10 (A) 04/14/2023 HYLCST 0 - 2 04/14/2023 BACTERIAU Present 04/14/2023 SQUAMOUS 3 - 5 04/14/2023 Lab Results Component Value Date NAPA 350 12/10/2018 NAUR 31 12/10/2018 CREATUR 158 12/10/2018 PROTUR 153 11/12/2018 UTPCR 1.5 (H) 11/12/2018 Lab Results Component Value Date FERRITIN 1,701 (H) 10/02/2024 TRANSFERNSAT 45 09/30/2024 IRON 66 09/30/2024 TIBC 146 (L) 09/30/2024 TRANSFERRIN 117 (L) 09/30/2024 Lab Results Component Value Date PTH 9 10/02/2024 VITD25 33.5 10/02/2024 Impression & Plan: Mundo Fernandez is a 62 y.o. male with ESRD on iHD MWF, T2DM, HTN, chronic HFrEF, PAD, HLD, IDD/dementia, depression/anxiety, insomnia, chronic HCV, DM foot ulcer c/b OM s/p bilateral transmetarsal amputation, and debility presented to [facility] on 09/30 after refusing care at his [place] [facility]. Nephrology consulted for dialysis. Assessment: #ESRD on iHD - MWF at [facility] [address] Dr[address] Lucas - AccesS: ISAURO BUTCHERG - EDW 67.5 Kg #HTN #Renal Osteodystrophy; secondary hyperparathyroidism #Anemia in ESRD #Disorders of electrolytes and acid/base due to renal insufficiency #Hypervolemia in renal insufficiency #Debility #T2DM #HFrEF #Dementia #Intellectual and developmental delay Recommendations and Plan - Continue iHD MWF while admtited; 3hrs, BFR 300-400 mL/min, DFR 600-800 mL/min, 3.5K, 2.5Ca, 32HCO3, 136Na, UF 1L, T35.5 - Iron parameters at goal; will follow for ANGELITA requirements - Renal diet as tolerated - Sevelamer held with Phos <4; will follow for Phos binder requirements - Strict I/Os and Daily weights - Management of other acute/chronic conditions per primary team - Avoid NSAIDs and other nephrotoxic mediations; Renally dose medications for ESRD on iHD. Please feel free to reach out if you have any questions or concerns. Sameera Garg MD Nephrology Fellow PGY-5 [1] Asenapine, 1 patch, Transdermal, q24h aspirin, 81 mg, Oral, Daily atorvastatin, 40 mg, Oral, Nightly cadexomer iodine, , Topical, Daily carvedilol, 25 mg, Oral, BID clopidogrel, 75 mg, Oral, Daily divalproex sprinkle, 250 mg, Oral, BID heparin (porcine), 5,000 Units, Subcutaneous, q8h RAFAT insulin lispro, 0-5 Units, Subcutaneous, TID with meals insulin lispro, 0-3 Units, Subcutaneous, Twice at night melatonin, 3 mg, Oral, Nightly NIFEdipine XL, 60 mg, Oral, Daily polyethylene glycol, 17 g, Oral, Daily sertraline, 75 mg, Oral, Daily sodium chloride, 10 mL, Intravenous, q12h traZODone, 100 mg, Oral, Nightly [2] Cosigned by Sherry Hinojosa MD at 10/15/2024 5:42 PM EDT Associated attestation - Sherry Hinojosa MD - 10/15/2024 5:42 PM EDT I saw and evaluated the patient with the resident/fellow. I discussed the case with the resident/fellow and agree with the findings and plan as documented. * Care Plan - Carri Chand - 10/14/2024 1:35 AM EDT Problem: Adult Inpatient Plan of Care Goal: Plan of Care Review Outcome: Ongoing, Progressing Flowsheets (Taken 10/14/2024 012) Progress: improving Outcome Evaluation: Patient will remain free from injury. Plan of Care Reviewed With: patient Goal: Patient-Specific Goal (Individualized) Outcome: Ongoing, Progressing Flowsheets (Taken 10/13/20241999) Patient/Family-Specific Goals (Include Timeframe): Patient will remain free of harm during the shift Individualized Care Needs: ensure safety, skin integrity, comfort Anxieties, Fears or Concerns: addressed Note: Assisted with ADLs, dressing, changing linen, continence care patient participated with self positioning Goal: Absence of Hospital-Acquired Illness or Injury Outcome: Ongoing, Progressing Intervention: Identify and Manage Fall Risk Flowsheets (Taken 10/13/20241999) Safety Promotion/Fall Prevention: fall prevention program maintained activity supervised clutter-free environment maintained safety round/check completed Intervention: Prevent Skin Injury Flowsheets Taken 10/14/2024122 Skin Protection: incontinence pads utilized Taken 10/13/20241999 Body Position: heels elevated Intervention: Prevent and Manage VTE (Venous Thromboembolism) Risk Flowsheets (Taken 10/13/20241999) VTE Prevention/Management: medication Intervention: Prevent Infection Flowsheets (Taken 10/14/2024 012) Infection Prevention: environmental surveillance performed hand hygiene promoted rest/sleep promoted Problem: Skin Injury Risk Increased Goal: Skin Health and Integrity Outcome: Ongoing, Progressing Intervention: Optimize Skin Protection Flowsheets Taken 10/14/2024122 Pressure Reduction Techniques: weight shift assistance provided Skin Protection: incontinence pads utilized Taken 10/13/20241999 Activity Management: activity adjusted per tolerance Head of Bed (HOB) Positioning: HOB elevated Taken 10/13/2024 0054 Pressure Reduction Devices: positioning supports utilized Intervention: Promote and Optimize Oral Intake Flowsheets (Taken 10/14/2024122) Nutrition Interventions: frequent small meals provided Problem: Fall Injury Risk Goal: Absence of Fall and Fall-Related Injury Outcome: Ongoing, Progressing Intervention: Identify and Manage Contributors Flowsheets (Taken 10/14/2024122) Medication Review/Management: medications reviewed Self-Care Promotion: independence encouraged Note: Patient is educated on using call light,bed alarm on patient had difficulty hearing needs reinforcement non skid shocks on. Intervention: Promote Injury-Free Environment Flowsheets (Taken 10/13/20241999) Safety Promotion/Fall Prevention: fall prevention program maintained activity supervised clutter-free environment maintained safety round/check completed Problem: Wound Goal: Absence of Infection Signs and Symptoms Outcome: Ongoing, Progressing Intervention: Prevent or Manage Infection Flowsheets (Taken 10/14/2024122) Fever Reduction/Comfort Measures: lightweight bedding Isolation Precautions: precautions maintained Note: Wound assessment done no drainage, clean dry, intact dressing maintained. Goal: Skin Health and Integrity Outcome: Ongoing, Progressing Intervention: Optimize Skin Protection Flowsheets Taken 10/14/2024122 Pressure Reduction Techniques: weight shift assistance provided Skin Protection: heel offloading device utilized Taken 10/13/20241999 Activity Management: activity adjusted per tolerance Head of Bed (HOB) Positioning: HOB elevated Taken 10/13/2024 0054 Pressure Reduction Devices: positioning supports utilized Goal: Optimal Wound Healing Outcome: Ongoing, Progressing Intervention: Promote Wound Healing Flowsheets (Taken 10/14/2024122) Sleep/Rest Enhancement: noise level reduced regular sleep/rest pattern promoted awakenings minimized Note: Scheduled sleep medication provided, lightening adjusted, room door close to promote rest, Tvoff at night Problem: Hemodialysis Goal: Safe, Effective Therapy Delivery Outcome: Ongoing, Progressing Intervention: Optimize Device Care and Function Flowsheets (Taken 10/14/2024122) Medication Review/Management: medications reviewed Goal: Effective Tissue Perfusion Outcome: Ongoing, Progressing Intervention: Optimize Blood Flow Flowsheets (Taken 10/14/2024122) Stabilization Measures: legs elevated Goal: Absence of Infection Signs and Symptoms Outcome: Ongoing, Progressing Intervention: Prevent or Manage Infection Flowsheets (Taken 10/14/2024122) Fever Reduction/Comfort Measures: lightweight bedding Infection Prevention: environmental surveillance performed hand hygiene promoted rest/sleep promoted Problem: Self-Care Deficit Goal: Improved Ability to Complete Activities of Daily Living Outcome: Ongoing, Progressing Intervention: Promote Activity and Functional [place] Flowsheets Taken 10/14/2024 012 Self-Care Promotion: independence encouraged Taken 10/13/2024 005 Activity Assistance Provided: assistance, 2 people Problem: Diabetes Goal: Optimal Coping Outcome: Ongoing, Progressing Intervention: Support Wellbeing and Self-Management Success Flowsheets (Taken 10/14/2024 012) Supportive Measures: active listening utilized Goal: Optimal Functional Ability Outcome: Ongoing, Progressing Intervention: Optimize Functional Ability Flowsheets Taken 10/14/2024122 Self-Care Promotion: independence encouraged Taken 10/13/20241999 Activity Management: activity adjusted per tolerance Taken 10/13/2024 0054 Activity Assistance Provided: assistance, 2 people Goal: Blood Glucose Level Within Target Range Outcome: Ongoing, Progressing Intervention: Optimize Glycemic Control Flowsheets (Taken 10/14/2024 012) Hyperglycemia Management: blood glucose monitored Goal: Minimize Hypoglycemia Risk Outcome: Ongoing, Progressing Intervention: Minimize and Manage Hypoglycemia Flowsheets (Taken 10/14/2024 012) Hypoglycemia Management: blood glucose monitored Problem: Mobility Impairment Goal: Optimal Mobility Outcome: Ongoing, Progressing Intervention: Optimize Mobility Flowsheets Taken 10/14/2024122 Positioning/Transfer Devices: pillows in use Taken 10/13/20241999 Activity Management: activity adjusted per tolerance Problem: Infection Goal: Absence of Infection Signs and Symptoms Outcome: Ongoing, Progressing Intervention: Prevent or Manage Infection Flowsheets (Taken 10/14/2024 012) Fever Reduction/Comfort Measures: lightweight bedding Isolation Precautions: precautions maintained * Care Plan - Claudette Tavares RN - 10/13/2024 3:24 PM EDT Problem: Adult Inpatient Plan of Care Goal: Plan of Care Review Outcome: Ongoing, Progressing Flowsheets (Taken 10/13/2024 1508) Progress: improving Plan of Care Reviewed With: patient Goal: Patient-Specific Goal (Individualized) Outcome: Ongoing, Progressing Goal: Absence of Hospital-Acquired Illness or Injury Outcome: Ongoing, Progressing Goal: Optimal Comfort and Wellbeing Outcome: Ongoing, Progressing Intervention: Monitor Pain and Promote Comfort Flowsheets (Taken 10/12/2024 1204 by Yeny Chanel RN) Pain Management Interventions: pillow support provided Goal: Readiness for Transition of Care Outcome: Ongoing, Progressing Problem: Skin Injury Risk Increased Goal: Skin Health and Integrity Outcome: Ongoing, Progressing Problem: Fall Injury Risk Goal: Absence of Fall and Fall-Related Injury Outcome: Ongoing, Progressing Intervention: Identify and Manage Contributors Flowsheets (Taken 10/13/2024 0054 by Carri Chand) Self-Care Promotion: independence encouraged Intervention: Promote Injury-Free Environment Flowsheets (Taken 10/13/2024 0800) Safety Promotion/Fall Prevention: fall prevention program maintained activity supervised clutter-free environment maintained safety round/check completed Problem: Wound Goal: Absence of Infection Signs and Symptoms Outcome: Ongoing, Progressing Intervention: Prevent or Manage Infection Flowsheets (Taken 10/13/2024 1508) Infection Management: aseptic technique maintained Goal: Skin Health and Integrity Outcome: Ongoing, Progressing Intervention: Optimize Skin Protection Flowsheets (Taken 10/13/2024 0800) Activity Management: activity adjusted per tolerance Goal: Optimal Wound Healing Outcome: Ongoing, Progressing Problem: Hemodialysis Goal: Safe, Effective Therapy Delivery Outcome: Ongoing, Progressing Goal: Effective Tissue Perfusion Outcome: Ongoing, Progressing Goal: Absence of Infection Signs and Symptoms Outcome: Ongoing, Progressing Intervention: Prevent or Manage Infection Flowsheets (Taken 10/13/2024 1508) Infection Management: aseptic technique maintained Problem: Self-Care Deficit Goal: Improved Ability to Complete Activities of Daily Living Outcome: Ongoing, Progressing Intervention: Promote Activity and Functional [place] Flowsheets (Taken 10/13/2024 0054 by Carri Chand) Self-Care Promotion: independence encouraged Problem: Infection Goal: Absence of Infection Signs and Symptoms Outcome: Ongoing, Progressing Intervention: Prevent or Manage Infection Flowsheets (Taken 10/13/2024 1508) Infection Management: aseptic technique maintained Problem: Diabetes Goal: Optimal Coping Outcome: Ongoing, Progressing Intervention: Support Wellbeing and Self-Management Success Flowsheets (Taken 10/13/2024 1508) Supportive Measures: active listening utilized Goal: Optimal Functional Ability Outcome: Ongoing, Progressing Goal: Blood Glucose Level Within Target Range Outcome: Ongoing, Progressing Goal: Minimize Hypoglycemia Risk Outcome: Ongoing, Progressing Problem: Mobility Impairment Goal: Optimal Mobility Outcome: Ongoing, Progressing Intervention: Optimize Mobility Flowsheets (Taken 10/13/2024 0800) Activity Management: activity adjusted per tolerance * Progress Notes - Kidwai, Lamont Z, MD - 10/13/2024 12:43 PM EDT Images from the original note were not included. [facility] Medicine Inpatient Progress Note Patient: Mundo Fernandez PCP: Leonard Botello MD Date: 10/13/2024 Subjective No new concerns reported by staff. Tolerating HD. Awaiting placement Review of Systems Unable to perform ROS: Psychiatric disorder Objective INPATENT MEDICATIONS Current Medications[1] ALLERGIES Allergies[2] 24 HOUR VITALS Temp: [36.4 ??C (97.6 ??F)-36.8 ??C (98.3 ??F)] 36.4 ??C (97.6 ??F) Heart Rate: [71-80] 75 Resp: [16-17] 16 BP: (132-157)/(63-82) 152/68 INTAKE/OUTPUT No intake or output data in the 24 hours ending 10/13/24 1243 Physical Exam Constitutional: General: He is not in acute distress. Appearance: He is normal weight. He is not toxic-appearing. Comments: Minimally verbal HENT: Head: Normocephalic. Comments: [place] Right Ear: External ear normal. Left Ear: External ear normal. Nose: Nose normal. Mouth/Throat: Mouth: Mucous membranes are moist. Eyes: General: Right eye: No discharge. Left eye: No discharge. Extraocular Movements: Extraocular movements intact. Pupils: Pupils are equal, round, and reactive to light. Cardiovascular: Rate and Rhythm: Normal rate and regular rhythm. Pulmonary: Effort: Pulmonary effort is normal. Breath sounds: Normal breath sounds. Abdominal: General: Abdomen is flat. There is no distension. Musculoskeletal: General: No swelling, deformity or signs of injury. Cervical back: Normal range of motion and neck supple. Skin: General: Skin is warm. Findings: No lesion. Neurological: Mental Status: He is alert. Psychiatric: Attention and Perception: He is inattentive. Mood and Affect: Affect is inappropriate. Cognition and Memory: Cognition is impaired. Memory is impaired. Judgment: Judgment is impulsive. REVIEW OF LABORATORY DATA Lab Results Component Value Date WBC 7.44 10/02/2024 HGB 8.2 (L) 10/09/2024 HCT 23.7 (L) 10/09/2024 MCV 90 10/02/2024 PLT 119 (L) 10/02/2024 Lab Results Component Value Date GLUCOSE 96 10/07/2024 CALCIUM 7.2 (L) 10/07/2024 NA 125 (L) 10/07/2024 K 4.1 10/07/2024 CO2 23 10/07/2024 CL 92 (L) 10/07/2024 BUN 41 (H) 10/07/2024 CREATININE 6.91 (H) 10/07/2024 Lab Results Component Value Date ALT 6 (L) 09/30/2024 AST 13 09/30/2024 ALKPHOS 42 09/30/2024 BILITOT 0.6 09/30/2024 Lab Results Component Value Date INR 1.0 12/07/2022 REVIEW OF IMAGING STUDIES XR Chest 1 View Narrative: CLINICAL INDICATION: discharge clearance TECHNIQUE: XR CHEST 1 VIEW COMPARISON: April 28, 2023 FINDINGS: Small pleural effusions versus pleural thickening, decreased since prior. Low lung volumes with bilateral atelectasis. No consolidation. No pneumothorax. Impression: Decreased pleural effusions. CRITICAL RESULT: No. COMMUNICATION: Per this written report. Drafted by Mundo Martins MD on 08/25/2023 12:16 PM Final report signed by Mundo Martins MD on 08/25/2023 12:18 PM REVIEW OF PROCEDURES Assessment and Plan: Aakash Fernandez is a [place] 64 y.o. male with past history of ESRD on HD MWF, T2DM, HTN, chronic HFrEF, PAD, HLD, IDD/dementia, depression/anxiety, insomnia, chronic HCV, DM foot ulcer c/b OM s/p bilateral transmetarsal amputation, and debility sent from his [place] [facility] to ED for medical evaluationafter refusing care. Declining functional status - Transferred to [place] [facility] a week ago and since arrival refusing HD, to eat, participate, or take medications - sent to ED for medical evaluation and need for higher level of assist/unable to care for self/non-compliance - afebrile, VSS, no acute complaints PLAN - PT/OT consult re: placement - legal guardian is his brother, Chris Fernandez, #[phone] (not answering calls since patient admission) Essential (primary) hypertension - increased carvedilol to 25 mg twice daily, nifedipine XL 60 mg daily (hold for BP <120/80 on dialysis days) At high risk for falls - wheelchair dependent, fall precautions ESRD (end stage renal disease) on dialysis ([facility]) - HD (MWF) - renally dose meds based on EGFR - strict I/O, daily weight Electrolyte and fluid disorder Hyponatremia Chronic kidney disease-mineral and bone disorder (CKD-MBD) - continue Renvela 800 mg TID with meals Anemia in chronic kidney disease (CODE) - Hgb stable, transfuse to keep >7 Type 2 diabetes mellitus with chronic kidney disease on chronic dialysis ([facility]) - last A1c 6.3 PLAN - ACHS regular SSI Dementia ([facility]) - Psych recommended; Asenapine 3.8 mg daily restarted (not on formulary his caregiver brought his patches) Mild intellectual disabilities - last neuropsych exam in 2023 found to not have capacity, brother is legal guardian - continue Depakote Sprinkle 250 mg twice daily Anxiety and depression - continue Sertraline 75 mg daily Insomnia, unspecified - continue trazodone 100 mg at bedtime, melatonin 3 mg at bedtime Arterial insufficiency ([facility]) - continue aspirin 81 mg daily, clopidogrel 75 mg daily Mixed hyperlipidemia - continue atorvastatin 40 mg at bedtime 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 - continue statin, ASA, clopidogrel as above Gastroesophageal reflux disease without esophagitis - continue daily PPI Sensorineural hearing loss, bilateral - complicates all aspects of care Wears hearing aid in both ears - not present with patient on admission, have tried to call caregiver to bring them to hospital with no luck Chronic combined systolic (congestive) and diastolic (congestive) heart failure ([facility]) - ECHO 06/27/2022: EF 45%, abnormal diastolic dysfunction - strict I/O, 2 L fluid restriction, cardiac/renal/CCHO2 diet Chronic hepatitis C without hepatic coma ([facility]) - HCV RNA PCR not detected 07/13/2023 History of transmetatarsal amputation of foot ([facility]) - chronic OM 2/2 DM foot ulcers s/p bilateral transmetarsal amputation Inpatient Checklist: Inpatient checklist: - Bowel regimen: ducolax - Code status: Full Code - Diet: PO - DVT prophylaxis: heparin - Disposition: placement (possible APS report filled today) CODE STATUS: Full Code EMERGENCY CONTACT: Extended Emergency Contact Information Primary Emergency Contact: Chris Fernandez Mobile Relation: Legal Guardian Preferred language: Kos[place] Repair Operator needed? No Secondary Emergency Contact: Mariel Chavez Address: [address] [place], [place] [address] [facility] Mobile Relation: [place] Developer Repair Operator needed? No Lamont Brumfield MD Division of Hospital Medicine [phone] or secure message [1] Current Facility-Administered Medications: acetaminophen (Tylenol) tablet 650 mg, 650 mg, Oral, q6h PRN, Lala Valdes MEDICAL ADMINISTRATIVE TECHNICIAN Asenapine 3.8mg/24 hr patch, 1 patch, Transdermal, q24h, Leda Gaitan MD, 1 patchat 10/12/24 1427 aspirin chewable tablet 81 mg, 81 mg, Oral, Daily, Lala Valdes MEDICAL ADMINISTRATIVE TECHNICIAN, 81 mg at 10/13/24 0946 atorvastatin (Lipitor) tablet 40 mg, 40 mg, Oral, Nightly, Lala Valdes, MEDICAL ADMINISTRATIVE TECHNICIAN, 40 mg at 10/12/24 2044 bisacodyl (Dulcolax) EC tablet 10 mg, 10 mg, Oral, Daily PRN, Lala Valdes MEDICAL ADMINISTRATIVE TECHNICIAN, 10 mg at 10/13/24 0559 cadexomer iodine (Iodosorb) 0.9 % gel, , Topical, Daily, Tana Wooten MD, Given at 10/13/24 0947 carvedilol (Coreg) tablet 25 mg, 25 mg, Oral, BID, Leda Gaitan MD, 25 mg at 10/13/24 0946 clopidogrel (Plavix) tablet 75 mg, 75 mg, Oral, Daily, Lala Valdes MEDICAL ADMINISTRATIVE TECHNICIAN, 75 mg at 10/13/24 0946 glucose (Glutose) 40 % oral gel 15-30 grams of glucose, 15-30 grams of glucose, Sublingual, q15 minPRN OR dextrose 10 % (D10W) bolus 125 mL, 125 mL, Intravenous, q15 min PRN OR dextrose 10 %(D10W) bolus 250 mL, 250 mL, Intravenous, q15 min PRN OR glucagon (human recombinant) injection1 mg, 1 mg, Intramuscular, q15 min PRN, Lala Valdes APRN divalproex sprinkle (Depakote Sprinkle) DR capsule 250 mg, 250 mg, Oral, BID, Lala Valdes, MEDICAL ADMINISTRATIVE TECHNICIAN,250 mg at 10/13/24945 heparin (porcine) injection 5,000 Units, 5,000 Units, Subcutaneous, q8h RAFAT, Lala Valdes MEDICAL ADMINISTRATIVE TECHNICIAN, 5,000 Units at 10/13/24 0559 insulin lispro (Admelog) 100 units/mL injection - Correction - Standard Dose, 0- 5 Units, Subcutaneous, TID with meals, Lala Valdes MEDICAL ADMINISTRATIVE TECHNICIAN, 1 Units at 10/12/24 1220 insulin lispro (Admelog) injection - Correction - Nighttime Dose, 0-3 Units, Subcutaneous, Twice atnight, Lala Valdes APRN melatonin tablet 3 mg, 3 mg, Oral, Nightly, Lala Valdes, MEDICAL ADMINISTRATIVE TECHNICIAN, 3 mg at 10/12/242043 NIFEdipine XL (Procardia XL) 24 hr tablet 60 mg, 60 mg, Oral, Daily, Leda Gaitan MD, 60 mg at 10/13/24945 polyethylene glycol (Miralax) packet 17 g, 17 g, Oral, Daily, Lala Valdes, MEDICAL ADMINISTRATIVE TECHNICIAN, 17 g at 10/13/24945 sertraline (Zoloft) tablet 75 mg, 75 mg, Oral, Daily, Lala Valdes, MEDICAL ADMINISTRATIVE TECHNICIAN, 75 mg at 10/13/24945 Insert peripheral IV, , , Once AND Saline lock IV, , , Once AND sodium chloride 0.9 % flush10 mL, 10 mL, Intravenous, q12h, 10 mL at 10/13/24946 AND sodium chloride 0.9 % flush 10 mL, 10 mL, Intravenous, PRN, Lala Valdes B, MEDICAL ADMINISTRATIVE TECHNICIAN traZODone (Desyrel) tablet 100 mg, 100 mg, Oral, Nightly, Lala Valdes, MEDICAL ADMINISTRATIVE TECHNICIAN, 100 mg at 10/12/242043 Facility-Administered Medications Ordered in Other Encounters: lidocaine-EPINEPHrine (PF) (Xylocaine W/EPI) 1 %-1:856006 injection - Pyxis Override Pull, , , , lidocaine-EPINEPHrine (PF) (Xylocaine W/EPI) 1 %-1:638529 injection - Pyxis Override Pull, , , , [2] No Known Allergies * Care Plan - Carri Chand - 10/13/2024 1:07 AM EDT Problem: Adult Inpatient Plan of Care Goal: Plan of Care Review 10/13/2024106 by Carri Chand Outcome: Ongoing, Progressing 10/13/202453 by Carri Chand Flowsheets (Taken 10/13/202453) Progress: improving Plan of Care Reviewed With: patient Goal: Patient-Specific Goal (Individualized) 10/13/2024106 by Carri Chand Outcome: Ongoing, Progressing 10/13/202453 by Carri Chand Flowsheets (Taken 10/12/20241999) Patient/Family-Specific Goals (Include Timeframe): patient will participate in ADLs and free of harm during the shift. Individualized Care Needs: safety, skin integrity,comfort Anxieties, Fears or Concerns: unable to assess Goal: Absence of Hospital-Acquired Illness or Injury Outcome: Ongoing, Progressing Intervention: Identify and Manage Fall Risk Flowsheets (Taken 10/13/202453) Safety Promotion/Fall Prevention: fall prevention program maintained lighting adjusted clutter-free environment maintained activity supervised Goal: Optimal Comfort and Wellbeing Outcome: Ongoing, Progressing Intervention: Provide Person-Centered Care Flowsheets (Taken 10/13/202453) Trust Relationship/Rapport: care explained thoughts/feelings acknowledged Problem: Skin Injury Risk Increased Goal: Skin Health and Integrity Outcome: Ongoing, Progressing Intervention: Optimize Skin Protection Flowsheets Taken 10/13/202453 Activity Management: activity adjusted per tolerance Pressure Reduction Techniques: weight shift assistance provided Pressure Reduction Devices: positioning supports utilized Skin Protection: incontinence pads utilized Taken 10/12/20241999 Head of Bed (HOB) Positioning: HOB elevated Problem: Fall Injury Risk Goal: Absence of Fall and Fall-Related Injury Outcome: Ongoing, Progressing Intervention: Identify and Manage Contributors Flowsheets (Taken 10/13/202453) Medication Review/Management: medications reviewed Self-Care Promotion: independence encouraged Intervention: Promote Injury-Free Environment Flowsheets (Taken 10/13/202453) Safety Promotion/Fall Prevention: fall prevention program maintained lighting adjusted clutter-free environment maintained activity supervised Problem: Wound Goal: Absence of Infection Signs and Symptoms Outcome: Ongoing, Progressing Intervention: Prevent or Manage Infection Flowsheets Taken 10/13/202453 by Carri Chand Fever Reduction/Comfort Measures: lightweight bedding Isolation Precautions: precautions maintained Taken 10/12/2024 1204 by Yeny Chanel RN Infection Management: aseptic technique maintained Goal: Skin Health and Integrity Outcome: Ongoing, Progressing Intervention: Optimize Skin Protection Flowsheets Taken 10/13/202453 Activity Management: activity adjusted per tolerance Pressure Reduction Techniques: weight shift assistance provided Pressure Reduction Devices: positioning supports utilized Skin Protection: heel offloading device utilized Taken 10/12/20241999 Head of Bed (HOB) Positioning: HOB elevated Goal: Optimal Wound Healing Outcome: Ongoing, Progressing Intervention: Promote Wound Healing Flowsheets (Taken 10/13/202453) Sleep/Rest Enhancement: noise level reduced regular sleep/rest pattern promoted awakenings minimized Problem: Hemodialysis Goal: Safe, Effective Therapy Delivery Outcome: Ongoing, Progressing Intervention: Optimize Device Care and Function Flowsheets (Taken 10/13/202453) Medication Review/Management: medications reviewed Goal: Effective Tissue Perfusion Outcome: Ongoing, Progressing Intervention: Optimize Blood Flow Flowsheets (Taken 10/13/202453) Stabilization Measures: legs elevated Goal: Absence of Infection Signs and Symptoms Outcome: Ongoing, Progressing Intervention: Prevent or Manage Infection Flowsheets (Taken 10/13/202453) Fever Reduction/Comfort Measures: lightweight bedding Infection Prevention: equipment surfaces disinfected rest/sleep promoted Problem: Self-Care Deficit Goal: Improved Ability to Complete Activities of Daily Living Outcome: Ongoing, Progressing Intervention: Promote Activity and Functional [place] Flowsheets (Taken 10/13/202453) Activity Assistance Provided: assistance, 2 people Self-Care Promotion: independence encouraged Problem: Infection Goal: Absence of Infection Signs and Symptoms Outcome: Ongoing, Progressing Intervention: Prevent or Manage Infection Flowsheets (Taken 10/13/202453) Fever Reduction/Comfort Measures: lightweight bedding Isolation Precautions: precautions maintained Problem: Diabetes Goal: Optimal Coping Outcome: Ongoing, Progressing Intervention: Support Wellbeing and Self-Management [place] Flowsheets (Taken 10/13/2024 005) Supportive Measures: active listening utilized Family/Support System Care: self-care encouraged Goal: Optimal Functional Ability Outcome: Ongoing, Progressing Intervention: Optimize Functional Ability Flowsheets (Taken 10/13/2024 005) Activity Management: activity adjusted per tolerance Activity Assistance Provided: assistance, 2 people Self-Care Promotion: independence encouraged Goal: Blood Glucose Level Within Target Range Outcome: Ongoing, Progressing Intervention: Optimize Glycemic Control Flowsheets (Taken 10/13/2024 005) Hyperglycemia Management: blood glucose monitored Goal: Minimize Hypoglycemia Risk Outcome: Ongoing, Progressing Intervention: Minimize and Manage Hypoglycemia Flowsheets (Taken 10/13/2024 005) Hypoglycemia Management: blood glucose monitored Problem: Mobility Impairment Goal: Optimal Mobility Outcome: Ongoing, Progressing Intervention: Optimize Mobility Flowsheets (Taken 10/13/2024 005) Activity Management: activity adjusted per tolerance Positioning/Transfer Devices: pillows in use * Care Plan - Yeny Chanel RN - 10/12/2024 12:06 PM EDT Problem: Adult Inpatient Plan of Care Goal: Plan of Care Review Outcome: Ongoing, Progressing Flowsheets (Taken 10/12/2024 1204) Progress: improving Plan of Care Reviewed With: patient Goal: Patient-Specific Goal (Individualized) Outcome: Ongoing, Progressing Goal: Absence of Hospital-Acquired Illness or Injury Outcome: Ongoing, Progressing Intervention: Identify and Manage Fall Risk Flowsheets (Taken 10/12/2024 1204) Safety Promotion/Fall Prevention: activity supervised assistive device/personal items within reach clutter-free environment maintained Intervention: Prevent Skin Injury Flowsheets (Taken 10/12/2024 1204) Body Position: heels elevated Intervention: Prevent and Manage VTE (Venous Thromboembolism) Risk Flowsheets (Taken 10/12/2024 1204) VTE Prevention/Management: medication Intervention: Prevent Infection Flowsheets (Taken 10/12/2024 1204) Infection Prevention: equipment surfaces disinfected Goal: Optimal Comfort and Wellbeing Outcome: Ongoing, Progressing Intervention: Monitor Pain and Promote Comfort Flowsheets (Taken 10/12/2024 1204) Pain Management Interventions: pillow support provided Goal: Readiness for Transition of Care Outcome: Ongoing, Progressing Problem: Skin Injury Risk Increased Goal: Skin Health and Integrity Outcome: Ongoing, Progressing Intervention: Optimize Skin Protection Flowsheets (Taken 10/12/2024 1204) Activity Management: activity adjusted per tolerance Head of Bed (HOB) Positioning: HOB at 30-45 degrees Problem: Fall Injury Risk Goal: Absence of Fall and Fall-Related Injury Outcome: Ongoing, Progressing Intervention: Identify and Manage Contributors Flowsheets (Taken 10/12/2024 1204) Medication Review/Management: medications reviewed Self-Care Promotion: independence encouraged Problem: Wound Goal: Absence of Infection Signs and Symptoms Outcome: Ongoing, Progressing Intervention: Prevent or Manage Infection Flowsheets (Taken 10/12/2024 1204) Infection Management: aseptic technique maintained Goal: Skin Health and Integrity Outcome: Ongoing, Progressing Goal: Optimal Wound Healing Outcome: Ongoing, Progressing Problem: Hemodialysis Goal: Safe, Effective Therapy Delivery Outcome: Ongoing, Progressing Intervention: Optimize Device Care and Function Flowsheets (Taken 10/12/2024 1204) Medication Review/Management: medications reviewed Goal: Effective Tissue Perfusion Outcome: Ongoing, Progressing Goal: Absence of Infection Signs and Symptoms Outcome: Ongoing, Progressing Problem: Self-Care Deficit Goal: Improved Ability to Complete Activities of Daily Living Outcome: Ongoing, Progressing Intervention: Promote Activity and Functional [place] Flowsheets (Taken 10/12/2024 1204) Activity Assistance Provided: assistance, 1 person Self-Care Promotion: independence encouraged Problem: Infection Goal: Absence of Infection Signs and Symptoms Outcome: Ongoing, Progressing Intervention: Prevent or Manage Infection Flowsheets (Taken 10/12/2024 1204) Infection Management: aseptic technique maintained Problem: Diabetes Goal: Optimal Coping Outcome: Ongoing, Progressing Intervention: Support Wellbeing and Self-Management Success Flowsheets (Taken 10/12/2024 1204) Supportive Measures: active listening utilized Goal: Optimal Functional Ability Outcome: Ongoing, Progressing Intervention: Optimize Functional Ability Flowsheets (Taken 10/12/2024 1204) Activity Management: activity adjusted per tolerance Activity Assistance Provided: assistance, 1 person Self-Care Promotion: independence encouraged Goal: Blood Glucose Level Within Target Range Outcome: Ongoing, Progressing Intervention: Optimize Glycemic Control Flowsheets (Taken 10/12/2024 1204) Hyperglycemia Management: blood glucose monitored Goal: Minimize Hypoglycemia Risk Outcome: Ongoing, Progressing Problem: Mobility Impairment Goal: Optimal Mobility Outcome: Ongoing, Progressing Intervention: Optimize Mobility Flowsheets (Taken 10/12/2024 1204) Activity Management: activity adjusted per tolerance * Progress Notes - Lamont Brumfield MD - 10/12/2024 7:59 AM EDT Images from the original note were not included. [facility] Medicine Inpatient Progress Note Patient: Mundo Fernandez PCP: Leonard Botello MD Date: 10/12/2024 Subjective No new concerns reported by staff. Tolerating HD. Awaiting placement Review of Systems Unable to perform ROS: Psychiatric disorder Objective INPATENT MEDICATIONS Current Medications[1] ALLERGIES Allergies[2] 24 HOUR VITALS Temp: [36.3 ??C (97.3 ??F)-36.7 ??C (98.1 ??F)] 36.7 ??C (98.1 ??F) Heart Rate: [66-79] 77 Resp: [16-18] 16 BP: (100-171)/(50-116) 171/81 INTAKE/OUTPUT Intake/Output Summary (Last 24 hours) at 10/12/2024 0800 Last data filed at 10/11/2024 1332 Gross per 24 hour Intake 600 ml Output 1900 ml Net -1300 ml Physical Exam Constitutional: General: He is not in acute distress. Appearance: He is normal weight. He is not toxic-appearing. HENT: Head: Normocephalic. Right Ear: External ear normal. Left Ear: External ear normal. Nose: Nose normal. Mouth/Throat: Mouth: Mucous membranes are moist. Eyes: General: Right eye: No discharge. Left eye: No discharge. Extraocular Movements: Extraocular movements intact. Pupils: Pupils are equal, round, and reactive to light. Cardiovascular: Rate and Rhythm: Normal rate and regular rhythm. Pulmonary: Effort: Pulmonary effort is normal. Breath sounds: Normal breath sounds. Abdominal: General: Abdomen is flat. There is no distension. Musculoskeletal: General: No swelling, deformity or signs of injury. Cervical back: Normal range of motion and neck supple. Skin: General: Skin is warm. Findings: No lesion. Neurological: Mental Status: He is alert. Psychiatric: Attention and Perception: He is inattentive. Mood and Affect: Affect is inappropriate. Cognition and Memory: Cognition is impaired. Memory is impaired. Judgment: Judgment is impulsive. REVIEW OF LABORATORY DATA Lab Results Component Value Date WBC 7.44 10/02/2024 HGB 8.2 (L) 10/09/2024 HCT 23.7 (L) 10/09/2024 MCV 90 10/02/2024 PLT 119 (L) 10/02/2024 Lab Results Component Value Date GLUCOSE 96 10/07/2024 CALCIUM 7.2 (L) 10/07/2024 NA 125 (L) 10/07/2024 K 4.1 10/07/2024 CO2 23 10/07/2024 CL 92 (L) 10/07/2024 BUN 41 (H) 10/07/2024 CREATININE 6.91 (H) 10/07/2024 Lab Results Component Value Date ALT 6 (L) 09/30/2024 AST 13 09/30/2024 ALKPHOS 42 09/30/2024 BILITOT 0.6 09/30/2024 Lab Results Component Value Date INR 1.0 12/07/2022 REVIEW OF IMAGING STUDIES XR Chest 1 View Narrative: CLINICAL INDICATION: discharge clearance TECHNIQUE: XR CHEST 1 VIEW COMPARISON: April 28, 2023 FINDINGS: Small pleural effusions versus pleural thickening, decreased since prior. Low lung volumes with bilateral atelectasis. No consolidation. No pneumothorax. Impression: Decreased pleural effusions. CRITICAL RESULT: No. COMMUNICATION: Per this written report. Drafted by Mundo Martins MD on 08/25/2023 12:16 PM Final report signed by Mundo Martins MD on 08/25/2023 12:18 PM REVIEW OF PROCEDURES Assessment and Plan: Aakash Fernandez is a [place] 64 y.o. male with past history of ESRD on HD MWF, T2DM, HTN, chronic HFrEF, PAD, HLD, IDD/dementia, depression/anxiety, insomnia, chronic HCV, DM foot ulcer c/b OM s/p bilateral transmetarsal amputation, and debility sent from [place] [facility] to ED for medical evaluationafter refusing care. Declining functional status - Transferred to [place] [facility] a week ago and since arrival refusing HD, to eat, participate, or take medications - sent to ED for medical evaluation and need for higher level of assist/unable to care for self/non-compliance - afebrile, VSS, no acute complaints PLAN - PT/OT consult re: placement - legal guardian is his brother, Chris Fernandez, #[phone] (not answering calls since patient admission) Essential (primary) hypertension - increased carvedilol to 25 mg twice daily, nifedipine XL 60 mg daily (hold for BP <120/80 on dialysis days) At high risk for falls - wheelchair dependent, fall precautions ESRD (end stage renal disease) on dialysis ([facility]) - HD (MWF) - renally dose meds based on EGFR - strict I/O, daily weight Electrolyte and fluid disorder Hyponatremia Chronic kidney disease-mineral and bone disorder (CKD-MBD) - continue Renvela 800 mg TID with meals Anemia in chronic kidney disease (CODE) - Hgb stable, transfuse to keep >7 Type 2 diabetes mellitus with chronic kidney disease on chronic dialysis ([facility]) - last A1c 6.3 PLAN - ACHS regular SSI Dementia ([facility]) - Psych recommended; Asenapine 3.8 mg daily restarted (not on formulary his caregiver brought his patches) Mild intellectual disabilities - last neuropsych exam in 2023 found to not have capacity, brother is legal guardian - continue Depakote Sprinkle 250 mg twice daily Anxiety and depression - continue sertraline 75 mg daily Insomnia, unspecified - continue trazodone 100 mg at bedtime, melatonin 3 mg at bedtime Arterial insufficiency ([facility]) - continue aspirin 81 mg daily, clopidogrel 75 mg daily Mixed hyperlipidemia - continue atorvastatin 40 mg at bedtime 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 - continue statin, ASA, clopidogrel as above Gastroesophageal reflux disease without esophagitis - continue daily PPI Sensorineural hearing loss, bilateral - complicates all aspects of care Wears hearing aid in both ears - not present with patient on admission, have tried to call caregiver to bring them to hospital with no luck Chronic combined systolic (congestive) and diastolic (congestive) heart failure ([facility]) - ECHO 06/27/2022: EF 45%, abnormal diastolic dysfunction - strict I/O, 2 L fluid restriction, cardiac/renal/CCHO2 diet Chronic hepatitis C without hepatic coma ([facility]) - HCV RNA PCR not detected 07/13/2023 History of transmetatarsal amputation of foot (CMS/HCC) - chronic OM 2/2 DM foot ulcers s/p bilateral transmetarsal amputation Inpatient Checklist: Inpatient checklist: - Bowel regimen: ducolax - Code status: Full Code - Diet: PO - DVT prophylaxis: heparin - Disposition: placement (possible APS report filled today) CODE STATUS: Full Code EMERGENCY CONTACT: Extended Emergency Contact Information Primary Emergency Contact: Chris Fernandez Mobile Relation: Legal Guardian Preferred language: Kosovan Repair Operator needed? No Secondary Emergency Contact: hCandlerpiperMariel Address: [address] [place] [address] Mobile Relation: [employer] Developer Repair Operator needed? No Lamont Brumfield MD Division of Hospital Medicine [phone] or secure message [1] Current Facility-Administered Medications: acetaminophen (Tylenol) tablet 650 mg, 650 mg, Oral, q6h PRN, Lala Valdes, MEDICAL ADMINISTRATIVE TECHNICIAN Asenapine 3.8mg/24 hr patch, 1 patch, Transdermal, q24h, Leda Gaitan MD, 1 patchat 10/11/24 1427 aspirin chewable tablet 81 mg, 81 mg, Oral, Daily, Lala Valdes MEDICAL ADMINISTRATIVE TECHNICIAN, 81 mg at 10/11/24 1419 atorvastatin (Lipitor) tablet 40 mg, 40 mg, Oral, Nightly, Lala Valdes MEDICAL ADMINISTRATIVE TECHNICIAN, 40 mg at 10/11/242005 bisacodyl (Dulcolax) EC tablet 10 mg, 10 mg, Oral, Daily PRN, Lala Valdes, MEDICAL ADMINISTRATIVE TECHNICIAN cadexomer iodine (Iodosorb) 0.9 % gel, , Topical, Daily, Tana Wooten MD, Given at 10/11/24 1428 carvedilol (Coreg) tablet 25 mg, 25 mg, Oral, BID, Leda Gaitan MD, 25 mg at 10/11/242005 clopidogrel (Plavix) tablet 75 mg, 75 mg, Oral, Daily, Lala Valdes MEDICAL ADMINISTRATIVE TECHNICIAN, 75 mg at 10/11/24 1419 glucose (Glutose) 40 % oral gel 15-30 grams of glucose, 15-30 grams of glucose, Sublingual, q15 minPRN OR dextrose 10 % (D10W) bolus 125 mL, 125 mL, Intravenous, q15 min PRN OR dextrose 10 %(D10W) bolus 250 mL, 250 mL, Intravenous, q15 min PRN OR glucagon (human recombinant) injection1 mg, 1 mg, Intramuscular, q15 min PRN, Lala Valdes APRN divalproex sprinkle (Depakote Sprinkle) DR capsule 250 mg, 250 mg, Oral, BID, Lala Valdes MEDICAL ADMINISTRATIVE TECHNICIAN,250 mg at 10/11/242005 heparin (porcine) injection 5,000 Units, 5,000 Units, Subcutaneous, q8h RAFAT, Lala Valdes MEDICAL ADMINISTRATIVE TECHNICIAN, 5,000 Units at 10/12/24 0624 insulin lispro (Admelog) 100 units/mL injection - Correction - Standard Dose, 0- 5 Units, Subcutaneous, TID with meals, Lala Valdes MEDICAL ADMINISTRATIVE TECHNICIAN, 3 Units at 10/08/24 1218 insulin lispro (Admelog) injection - Correction - Nighttime Dose, 0-3 Units, Subcutaneous, Twice atnight, Lala Valdes APRN melatonin tablet 3 mg, 3 mg, Oral, Nightly, Lala Valdes MEDICAL ADMINISTRATIVE TECHNICIAN, 3 mg at 10/11/242005 NIFEdipine XL (Procardia XL) 24 hr tablet 60 mg, 60 mg, Oral, Daily, Leda Gaitan MD, 60 mg at 10/10/24900 polyethylene glycol (Miralax) packet 17 g, 17 g, Oral, Daily, Lala Valdes MEDICAL ADMINISTRATIVE TECHNICIAN, 17 g at 10/10/24 09 sertraline (Zoloft) tablet 75 mg, 75 mg, Oral, Daily, Lala Valdes MEDICAL ADMINISTRATIVE TECHNICIAN, 75 mg at 10/11/24 1419 Insert peripheral IV, , , Once AND Saline lock IV, , , Once AND sodium chloride 0.9 % flush10 mL, 10 mL, Intravenous, q12h, 10 mL at 10/10/24 0902 AND sodium chloride 0.9 % flush 10 mL, 10 mL, Intravenous, PRN, Lala Valdes B, MEDICAL ADMINISTRATIVE TECHNICIAN traZODone (Desyrel) tablet 100 mg, 100 mg, Oral, Nightly, Lala Valdes, MEDICAL ADMINISTRATIVE TECHNICIAN, 100 mg at 10/11/242005 Facility-Administered Medications Ordered in Other Encounters: lidocaine-EPINEPHrine (PF) (Xylocaine W/EPI) 1 %-1:903482 injection - Pyxis Override Pull, , , , lidocaine-EPINEPHrine (PF) (Xylocaine W/EPI) 1 %-1:110286 injection - Pyxis Override Pull, , , , [2] No Known Allergies * Care Plan - Carri Chand - 10/12/2024 12:39 AM EDT Problem: Adult Inpatient Plan of Care Goal: Plan of Care Review Outcome: Ongoing, Progressing Flowsheets (Taken 10/12/202428) Progress: no change Outcome Evaluation: Patient will remain free of harm during the shift. Plan of Care Reviewed With: patient Goal: Patient-Specific Goal (Individualized) Outcome: Ongoing, Progressing Flowsheets (Taken 10/11/20241999) Patient/Family-Specific Goals (Include Timeframe): Patient will participate on Adls and remain safeduring the shift Individualized Care Needs: ensure safety, assist with ADLs Anxieties, Fears or Concerns: Asked about date and time Goal: Absence of Hospital-Acquired Illness or Injury Outcome: Ongoing, Progressing Intervention: Identify and Manage Fall Risk Flowsheets (Taken 10/11/20241999) Safety Promotion/Fall Prevention: fall prevention program maintained activity supervised clutter-free environment maintained safety round/check completed Intervention: Prevent Skin Injury Flowsheets Taken 10/12/202428 Skin Protection: incontinence pads utilized Taken 10/11/20241999 Body Position: weight shifting Intervention: Prevent and Manage VTE (Venous Thromboembolism) Risk Flowsheets (Taken 10/11/20241999) VTE Prevention/Management: medication Intervention: Prevent Infection Flowsheets (Taken 10/12/202428) Infection Prevention: hand hygiene promoted rest/sleep promoted Problem: Skin Injury Risk Increased Goal: Skin Health and Integrity Outcome: Ongoing, Progressing Intervention: Optimize Skin Protection Flowsheets (Taken 10/12/202428) Activity Management: activity adjusted per tolerance education provided Pressure Reduction Techniques: weight shift assistance provided Pressure Reduction Devices: positioning supports utilized Skin Protection: incontinence pads utilized Head of Bed (HOB) Positioning: HOB elevated Intervention: Promote and Optimize Oral Intake Flowsheets (Taken 10/12/202428) Oral Nutrition Promotion: rest periods promoted Nutrition Interventions: frequent small meals provided Problem: Fall Injury Risk Goal: Absence of Fall and Fall-Related Injury Outcome: Ongoing, Progressing Intervention: Identify and Manage Contributors Flowsheets (Taken 10/12/202428) Medication Review/Management: medications reviewed Self-Care Promotion: BADL personal objects within reach Intervention: Promote Injury-Free Environment Flowsheets (Taken 10/11/20241999) Safety Promotion/Fall Prevention: fall prevention program maintained activity supervised clutter-free environment maintained safety round/check completed Problem: Wound Goal: Absence of Infection Signs and Symptoms Outcome: Ongoing, Progressing Intervention: Prevent or Manage Infection Flowsheets Taken 10/12/202428 Infection Management: aseptic technique maintained Fever Reduction/Comfort Measures: lightweight bedding Taken 10/11/20241999 Isolation Precautions: protective Goal: Skin Health and Integrity Outcome: Ongoing, Progressing Intervention: Optimize Skin Protection Flowsheets (Taken 10/12/202428) Activity Management: activity adjusted per tolerance education provided Pressure Reduction Techniques: weight shift assistance provided Pressure Reduction Devices: positioning supports utilized Skin Protection: heel offloading device utilized Head of Bed (HOB) Positioning: HOB elevated Goal: Optimal Wound Healing Outcome: Ongoing, Progressing Intervention: Promote Wound Healing Flowsheets (Taken 10/12/202428) Sleep/Rest Enhancement: awakenings minimized noise level reduced regular sleep/rest pattern promoted Problem: Hemodialysis Goal: Safe, Effective Therapy Delivery Outcome: Ongoing, Progressing Intervention: Optimize Device Care and Function Flowsheets (Taken 10/12/202428) Medication Review/Management: medications reviewed Goal: Effective Tissue Perfusion Outcome: Ongoing, Progressing Intervention: Optimize Blood Flow Flowsheets (Taken 10/12/202428) Stabilization Measures: legs elevated Goal: Absence of Infection Signs and Symptoms Outcome: Ongoing, Progressing Intervention: Prevent or Manage Infection Flowsheets (Taken 10/12/202428) Infection Management: aseptic technique maintained Fever Reduction/Comfort Measures: lightweight bedding Infection Prevention: hand hygiene promoted rest/sleep promoted Problem: Self-Care Deficit Goal: Improved Ability to Complete Activities of Daily Living Outcome: Ongoing, Progressing Intervention: Promote Activity and Functional [place] Flowsheets (Taken 10/12/2024 0029) Activity Assistance Provided: assistance, 2 people Adaptive Equipment Use: use encouraged Self-Care Promotion: BADL personal objects within reach * Care Plan - Amara Zhang RN - 10/11/2024 2:51 PM EDT Problem: Adult Inpatient Plan of Care Goal: Plan of Care Review Outcome: Ongoing, Progressing Flowsheets (Taken 10/11/2024 1448) Plan of Care Reviewed With: patient Goal: Patient-Specific Goal (Individualized) Outcome: Ongoing, Progressing Flowsheets (Taken 10/11/2024 1448) Patient/Family-Specific Goals (Include Timeframe): patient will consume at least 50% of meals during shift Goal: Absence of Hospital-Acquired Illness or Injury Outcome: Ongoing, Progressing Intervention: Identify and Manage Fall Risk Flowsheets (Taken 10/11/2024 1448) Safety Promotion/Fall Prevention: activity supervised Intervention: Prevent Skin Injury Flowsheets (Taken 10/11/2024 144) Skin Protection: incontinence pads utilized Intervention: Prevent Infection Flowsheets (Taken 10/11/2024 144) Infection Prevention: hand hygiene promoted Problem: Skin Injury Risk Increased Goal: Skin Health and Integrity Outcome: Ongoing, Progressing Intervention: Optimize Skin Protection Flowsheets (Taken 10/11/2024 1448) Activity Management: activity encouraged Skin Protection: incontinence pads utilized Problem: Fall Injury Risk Goal: Absence of Fall and Fall-Related Injury Outcome: Ongoing, Progressing Problem: Wound Goal: Absence of Infection Signs and Symptoms Outcome: Ongoing, Progressing Goal: Skin Health and Integrity Outcome: Ongoing, Progressing Goal: Optimal Wound Healing Outcome: Ongoing, Progressing Problem: Hemodialysis Goal: Safe, Effective Therapy Delivery Outcome: Ongoing, Progressing Goal: Effective Tissue Perfusion Outcome: Ongoing, Progressing Goal: Absence of Infection Signs and Symptoms Outcome: Ongoing, Progressing Intervention: Prevent or Manage Infection Flowsheets Taken 10/11/2024 1448 by Amara Zhang RN Infection Prevention: hand hygiene promoted Taken 10/11/2024 0217 by Dayron Jama Jr. RN Infection Management: aseptic technique maintained Problem: Self-Care Deficit Goal: Improved Ability to Complete Activities of Daily Living Outcome: Ongoing, Progressing Intervention: Promote Activity and Functional [place] Flowsheets (Taken 10/11/2024 1448) Self-Care Promotion: BADL personal routines maintained Intervention: Optimize Functional Ability Flowsheets (Taken 10/11/2024 1448) Activity Management: activity encouraged Self-Care Promotion: BADL personal routines maintained Goal: Blood Glucose Level Within Target Range Outcome: Ongoing, Progressing Intervention: Optimize Glycemic Control Flowsheets (Taken 10/11/2024 1448) Hyperglycemia Management: blood glucose monitored * Progress Notes - Hafsa Schmidt - 10/11/2024 1:00 PM EDT Case Management Adult Progress Note Mundo Fernandez 64 y.o. male CSN: [id number] Admission: 09/30/2024 3:29 PM Primary Problem: Declining functional status Comments SW CM attempted to follow up with admissions at [facility] at phone number however, SW CM had to leave a message. No other known SW CM needs. CM will follow up. Hafsa Schmidt * Progress Notes - Donny Tovar MD - 10/11/2024 11:35 AM EDT Hemodialysis Procedure Note Chief Compliant/reason for consult: ESRD on dialysis HPI: No acute events overnight. Seen and examined on dialysis. Tolerating well. Physical Exam: Visit Vitals BP 113/53 Pulse 67 Temp 36.4 ??C (97.5 ??F) (Oral) Resp 18 Ht 1.778 m (5' 10 ) Wt 75.1 kg (165 lb 9.1 oz) SpO2 94% BMI 23.76 kg/m?? Smoking Status Never BSA 1.93 m?? GA: NAD, on dialysis Resp: Normal respiratory effort CV: Trace BLE edema Dialysis Access: AVF RUE accessed for dialysis Intake/Output Summary (Last 24 hours) at 10/11/2024 1135 Last data filed at 10/10/20241999 Gross per 24 hour Intake 120 ml Output -- Net 120 ml Current Medications: reviewed Current Scheduled Medications[1] Current Continuous Medications[2] Current PRN Medications[3] Laboratory Results Results from last 7 days Lab Units 10/09/24 1545 HEMOGLOBIN g/dL 8.2* HEMATOCRIT % 23.7* Results from last 7 days Lab Units 10/07/24 0248 10/06/24 0305 SODIUM mmol/L 125* 125* POTASSIUM mmol/L 4.1 3.8 CHLORIDE mmol/L 92* 92* CO2 mmol/L 23 23 BUN mg/dL 41* 30* CREATININE mg/dL 6.91* 5.95* CALCIUM mg/dL 7.2* 7.5* PHOSPHORUS mg/dL 4.2 3.5 MAGNESIUM mg/dL 1.6* 1.8* Assessment: - ESRD on Hemodialysis - Disorders of fluid, electrolytes and acid-base balance - Hypervolemia in renal insufficiency - Renal osteodystrophy - Anemia in ESRD Plan: - HD today. Continue MWF schedule while inpatient. - Please check RFP 1-2 times weekly while inpatient - Will ultrafiltrate as tolerated on dialysis - Will adjust dialysate composition to help maintaining normal electrolytes and acid base balance - Will follow for ANGELITA, Phos binder requirements - Daily weight - Renal diet - Renally dose medications for HD - I saw and evaluated the patient during dialysis treatment. Currently patient is tolerating treatment with stable hemodynamics. Dialysis flowsheet, dialysis bath and machine settings reviewed. No issues with current flow settings and access flows are acceptable. BFR 300-400 ml/min, DFR 600-800 ml/min, 3.5K / 2.5Ca / 32 bicarb. UF 2L as tolerated. Please see dialysis flowsheet for treatment's details. Dialysis Medications sodium citrate anticoagulant 4 % flush 6 mL 6 mL, Intracatheter, Every visit, As needed alteplase (Cathflo Activase) injection 4 mg 4 mg, Intracatheter, Every visit, As needed Dialysis Treatment Hemodialysis inpatient 3 hr (180 min); Revaclear 400; 35.5; 3.5; 2.5; 136; 32; 1-2; Remove UF as tolerated; 300-400; 2X Blood Flow Rate; Adult; AV Fistula; 15 ga Once Every visit, Once Duration of Treatment: 3 hr (180 min) Dialyzer: Revaclear 400 Dialysate Temperature (Centigrade): 35.5 Dialysate: Potassium (mEq/L): 3.5 Dialysate: Calcium (mEq/L): 2.5 Dialysate: Sodium (mEq/L): 136 Dialysate: Bicarb (mEq/L): 32 Net fluid removal (Ultrafiltration) (L): 1-2 As tolerated: Remove UF as tolerated BFR (mL/min): 300-400 Dialysate Flow Rate (mL/min): 2X Blood Flow Rate Tubing: Adult Access Site: AV Fistula Needle Size: 15 ga Nursing general assessments and interventions Every visit, Once Labs Hepatitis B Surface Antibody, Quantitative Every 28 days, Once Release to [facility] in [facility]: Immediate Hepatitis panel, acute Every 28 days, Once Release to patient in [facility]: Immediate Zechariah Tovar MD Nephrology [1] Asenapine, 1 patch, Transdermal, q24h aspirin, 81 mg, Oral, Daily atorvastatin, 40 mg, Oral, Nightly cadexomer iodine, , Topical, Daily carvedilol, 25 mg, Oral, BID clopidogrel, 75 mg, Oral, Daily divalproex sprinkle, 250 mg, Oral, BID heparin (porcine), 5,000 Units, Subcutaneous, q8h RAFAT insulin lispro, 0-5 Units, Subcutaneous, TID with meals insulin lispro, 0-3 Units, Subcutaneous, Twice at night melatonin, 3 mg, Oral, Nightly NIFEdipine XL, 60 mg, Oral, Daily polyethylene glycol, 17 g, Oral, Daily sertraline, 75 mg, Oral, Daily sodium chloride, 10 mL, Intravenous, q12h traZODone, 100 mg, Oral, Nightly [2] [3] PRN medications: acetaminophen, bisacodyl, glucose OR dextrose 10 % OR dextrose 10 % OR glucagon (human recombinant), Insert peripheral IV AND Saline lock IV AND sodium chloride AND sodium chloride * Progress Notes - Lamont Brumfield MD - 10/11/2024 7:41 AM EDT Images from the original note were not included. [facility] Medicine Inpatient Progress Note Patient: Mundo Fernandez PCP: Leonard Botello MD Date: 10/11/2024 Subjective No new concerns reported by staff. Tolerating HD. Awaiting placement Review of Systems Unable to perform ROS: Psychiatric disorder Objective INPATENT MEDICATIONS Current Medications[1] ALLERGIES Allergies[2] 24 HOUR VITALS Temp: [36.3 ??C (97.3 ??F)-36.6 ??C (97.9 ??F)] 36.3 ??C (97.3 ??F) Heart Rate: [62-80] 62 Resp: [13-18] 15 BP: (106-148)/(51-72) 106/51 INTAKE/OUTPUT Intake/Output Summary (Last 24 hours) at 10/11/2024 0741 Last data filed at 10/10/20241999 Gross per 24 hour Intake 120 ml Output -- Net 120 ml Physical Exam Constitutional: General: He is not in acute distress. Appearance: He is normal weight. He is not toxic-appearing. HENT: Head: Normocephalic. Right Ear: External ear normal. Left Ear: External ear normal. Nose: Nose normal. Mouth/Throat: Mouth: Mucous membranes are moist. Eyes: General: Right eye: No discharge. Left eye: No discharge. Extraocular Movements: Extraocular movements intact. Pupils: Pupils are equal, round, and reactive to light. Cardiovascular: Rate and Rhythm: Normal rate and regular rhythm. Pulmonary: Effort: Pulmonary effort is normal. Breath sounds: Normal breath sounds. Abdominal: General: Abdomen is flat. There is no distension. Musculoskeletal: General: No swelling, deformity or signs of injury. Cervical back: Normal range of motion and neck supple. Skin: General: Skin is warm. Findings: No lesion. Neurological: Mental Status: He is alert. Psychiatric: Attention and Perception: He is inattentive. Mood and Affect: Affect is inappropriate. Cognition and Memory: Cognition is impaired. Memory is impaired. Judgment: Judgment is impulsive. REVIEW OF LABORATORY DATA Lab Results Component Value Date WBC 7.44 10/02/2024 HGB 8.2 (L) 10/09/2024 HCT 23.7 (L) 10/09/2024 MCV 90 10/02/2024 PLT 119 (L) 10/02/2024 Lab Results Component Value Date GLUCOSE 96 10/07/2024 CALCIUM 7.2 (L) 10/07/2024 NA 125 (L) 10/07/2024 K 4.1 10/07/2024 CO2 23 10/07/2024 CL 92 (L) 10/07/2024 BUN 41 (H) 10/07/2024 CREATININE 6.91 (H) 10/07/2024 Lab Results Component Value Date ALT 6 (L) 09/30/2024 AST 13 09/30/2024 ALKPHOS 42 09/30/2024 BILITOT 0.6 09/30/2024 Lab Results Component Value Date INR 1.0 12/07/2022 REVIEW OF IMAGING STUDIES XR Chest 1 View Narrative: CLINICAL INDICATION: discharge clearance TECHNIQUE: XR CHEST 1 VIEW COMPARISON: April 28, 2023 FINDINGS: Small pleural effusions versus pleural thickening, decreased since prior. Low lung volumes with bilateral atelectasis. No consolidation. No pneumothorax. Impression: Decreased pleural effusions. CRITICAL RESULT: No. COMMUNICATION: Per this written report. Drafted by Mundo Martins MD on 08/25/2023 12:16 PM Final report signed by Mundo Martins MD on 08/25/2023 12:18 PM REVIEW OF PROCEDURES Assessment and Plan: Aakash Fernandez is a [place] 64 y.o. male with past history of ESRD on HD MWF, T2DM, HTN, chronic HFrEF, PAD, HLD, IDD/dementia, depression/anxiety, insomnia, chronic HCV, DM foot ulcer c/b OM s/p bilateral transmetarsal amputation, and debility sent [place] [facility] [place] ED for medical evaluationafter refusing care. Declining functional status - Transferred to [place] [facility] [place] a week ago and since arrival refusing HD, to eat, participate, or take medications - sent to ED for medical evaluation and need for higher level of assist/unable to care for self/non-compliance - afebrile, VSS, no acute complaints PLAN - PT/OT consult re: placement - legal guardian is his brother, Chris Fernandez, #[phone] (not answering calls since patient admission) Essential (primary) hypertension - increased carvedilol to 25 mg twice daily, nifedipine XL 60 mg daily (hold for BP <120/80 on dialysis days) At high risk for falls - wheelchair dependent, fall precautions ESRD (end stage renal disease) on dialysis ([facility]) - HD (MWF) - renally dose meds based on EGFR - strict I/O, daily weight Electrolyte and fluid disorder Hyponatremia Chronic kidney disease-mineral and bone disorder (CKD-MBD) - continue Renvela 800 mg TID with meals Anemia in chronic kidney disease (CODE) - Hgb stable, transfuse to keep >7 Type 2 diabetes mellitus with chronic kidney disease on chronic dialysis ([facility]) - last A1c 6.3 PLAN - ACHS regular SSI Dementia ([facility]) - Psych recommended; Asenapine 3.8 mg daily restarted (not on formulary his caregiver brought his patches) Mild intellectual disabilities - last neuropsych exam in 2023 found to not have capacity, brother is legal guardian - continue Depakote Sprinkle 250 mg twice daily Anxiety and depression - continue sertraline 75 mg daily Insomnia, unspecified - continue trazodone 100 mg at bedtime, melatonin 3 mg at bedtime Arterial insufficiency ([facility]) - continue aspirin 81 mg daily, clopidogrel 75 mg daily Mixed hyperlipidemia - continue atorvastatin 40 mg at bedtime 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 - continue statin, ASA, clopidogrel as above Gastroesophageal reflux disease without esophagitis - continue daily PPI Sensorineural hearing loss, bilateral - complicates all aspects of care Wears hearing aid in both ears - not present with patient on admission, have tried to call caregiver to bring them to hospital with no luck Chronic combined systolic (congestive) and diastolic (congestive) heart failure ([facility]) - ECHO 06/27/2022: EF 45%, abnormal diastolic dysfunction - strict I/O, 2 L fluid restriction, cardiac/renal/CCHO2 diet Chronic hepatitis C without hepatic coma ([facility]) - HCV RNA PCR not detected 07/13/2023 History of transmetatarsal amputation of foot ([facility]) - chronic OM 2/2 DM foot ulcers s/p bilateral transmetarsal amputation Inpatient Checklist: Inpatient checklist: - Bowel regimen: ducolax - Code status: Full Code - Diet: PO - DVT prophylaxis: heparin - Disposition: placement (possible APS report filled today) CODE STATUS: Full Code EMERGENCY CONTACT: Extended Emergency Contact Information Primary Emergency Contact: Chris Fernandez Mobile Relation: Legal Guardian Preferred language: Kosovan Repair Operator needed? No Secondary Emergency Contact: Mariel Chavez [address]: [address] [place] [address] Mobile Relation: [employer] Developer Repair Operator needed? No Lamont Brumfield MD Division of Hospital Medicine [phone] or secure message [1] Current Facility-Administered Medications: acetaminophen (Tylenol) tablet 650 mg, 650 mg, Oral, q6h PRN, Lala Valdes B, MEDICAL ADMINISTRATIVE TECHNICIAN Asenapine 3.8mg/24 hr patch, 1 patch, Transdermal, q24h, Leda Gaitan MD, 1 Application at 10/10/24 1322 aspirin chewable tablet 81 mg, 81 mg, Oral, Daily, Lala Valdes, MEDICAL ADMINISTRATIVE TECHNICIAN, 81 mg at 10/10/24 0901 atorvastatin (Lipitor) tablet 40 mg, 40 mg, Oral, Nightly, Lala Valdes, MEDICAL ADMINISTRATIVE TECHNICIAN, 40 mg at 10/10/24 210 bisacodyl (Dulcolax) EC tablet 10 mg, 10 mg, Oral, Daily PRN, Lala Valdes B, MEDICAL ADMINISTRATIVE TECHNICIAN cadexomer iodine (Iodosorb) 0.9 % gel, , Topical, Daily, Tana Wooten MD, Given at 10/04/24 1311 carvedilol (Coreg) tablet 25 mg, 25 mg, Oral, BID, Leda Gaitan MD, 25 mg at 10/10/24 2107 clopidogrel (Plavix) tablet 75 mg, 75 mg, Oral, Daily, Lala Valdes B, MEDICAL ADMINISTRATIVE TECHNICIAN, 75 mg at 10/10/24 0901 glucose (Glutose) 40 % oral gel 15-30 grams of glucose, 15-30 grams of glucose, Sublingual, q15 minPRN OR dextrose 10 % (D10W) bolus 125 mL, 125 mL, Intravenous, q15 min PRN OR dextrose 10 %(D10W) bolus 250 mL, 250 mL, Intravenous, q15 min PRN OR glucagon (human recombinant) injection1 mg, 1 mg, Intramuscular, q15 min PRN, Lala Valdes, MEDICAL ADMINISTRATIVE TECHNICIAN divalproex sprinkle (Depakote Sprinkle) DR capsule 250 mg, 250 mg, Oral, BID, Lala Valdes, MEDICAL ADMINISTRATIVE TECHNICIAN,250 mg at 10/10/242105 heparin (porcine) injection 5,000 Units, 5,000 Units, Subcutaneous, q8h RAFAT, Lala Valdes B, MEDICAL ADMINISTRATIVE TECHNICIAN, 5,000 Units at 10/11/24 0623 insulin lispro (Admelog) 100 units/mL injection - Correction - Standard Dose, 0- 5 Units, Subcutaneous, TID with meals, Lala Valdes, MEDICAL ADMINISTRATIVE TECHNICIAN, 3 Units at 10/08/24 1218 insulin lispro (Admelog) injection - Correction - Nighttime Dose, 0-3 Units, Subcutaneous, Twice atnight, Lala Valdes MEDICAL ADMINISTRATIVE TECHNICIAN melatonin tablet 3 mg, 3 mg, Oral, Nightly, Lala Valdes, MEDICAL ADMINISTRATIVE TECHNICIAN, 3 mg at 10/10/242106 NIFEdipine XL (Procardia XL) 24 hr tablet 60 mg, 60 mg, Oral, Daily, Leda Gaitan MD, 60 mg at 10/10/24900 polyethylene glycol (Miralax) packet 17 g, 17 g, Oral, Daily, Lala Valdes, MEDICAL ADMINISTRATIVE TECHNICIAN, 17 g at 10/10/24900 sertraline (Zoloft) tablet 75 mg, 75 mg, Oral, Daily, Lala Valdes, MEDICAL ADMINISTRATIVE TECHNICIAN, 75 mg at 10/10/24900 Insert peripheral IV, , , Once AND Saline lock IV, , , Once AND sodium chloride 0.9 % flush10 mL, 10 mL, Intravenous, q12h, 10 mL at 10/10/24901 AND sodium chloride 0.9 % flush 10 mL, 10 mL, Intravenous, PRN, Lala Valdes B, MEDICAL ADMINISTRATIVE TECHNICIAN traZODone (Desyrel) tablet 100 mg, 100 mg, Oral, Nightly, Lala Valdes B, MEDICAL ADMINISTRATIVE TECHNICIAN, 100 mg at 10/10/242106 Facility-Administered Medications Ordered in Other Encounters: lidocaine-EPINEPHrine (PF) (Xylocaine W/EPI) 1 %-1:947451 injection - Pyxis Override Pull, , , , lidocaine-EPINEPHrine (PF) (Xylocaine W/EPI) 1 %-1:902432 injection - Pyxis Override Pull, , , , [2] No Known Allergies * Nursing Note - Dayron Jama Jr. RN - 10/11/2024 4:20 AM EDT Pt resting in bed, eyes closed, breathing easily, continue to monitor * Care Plan - Dayron Jama Jr., RN - 10/11/2024 2:24 AM EDT Problem: Adult Inpatient Plan of Care Goal: Plan of Care Review Outcome: Ongoing, Progressing Goal: Patient-Specific Goal (Individualized) Outcome: Ongoing, Progressing Goal: Absence of Hospital-Acquired Illness or Injury Outcome: Ongoing, Progressing Intervention: Identify and Manage Fall Risk Flowsheets (Taken 10/10/20241999) Safety Promotion/Fall Prevention: fall prevention program maintained activity supervised room organization consistent safety round/check completed Intervention: Prevent Skin Injury Flowsheets Taken 10/11/2024216 Skin Protection: incontinence pads utilized Taken 10/10/20241999 Body Position: weight shifting Intervention: Prevent and Manage VTE (Venous Thromboembolism) Risk Flowsheets (Taken 10/11/2024216) VTE Prevention/Management: medication SCDs (sequential compression devices) off Intervention: Prevent Infection Flowsheets (Taken 10/11/2024216) Infection Prevention: hand hygiene promoted Goal: Optimal Comfort and Wellbeing Outcome: Ongoing, Progressing Intervention: Monitor Pain and Promote Comfort Flowsheets (Taken 10/11/2024216) Pain Management Interventions: medication (see MAR) Intervention: Provide Person-Centered Care Flowsheets (Taken 10/11/2024216) Trust Relationship/Rapport: care explained Goal: Readiness for Transition of Care Outcome: Ongoing, Progressing Intervention: Mutually Develop Transition Plan Flowsheets (Taken 10/11/2024216) Equipment Currently Used at Home: walker, rolling Current Outpatient/Agency/Support Group: assisted living facility Concerns to be Addressed: medication Readmission Within the Last 30 Days: lack of support Problem: Skin Injury Risk Increased Goal: Skin Health and Integrity Outcome: Ongoing, Progressing Intervention: Optimize Skin Protection Flowsheets Taken 10/11/2024216 Skin Protection: incontinence pads utilized Taken 10/10/20241999 Activity Management: bedrest Head of Bed (HOB) Positioning: HOB elevated Taken 10/10/2024 0400 Pressure Reduction Techniques: weight shift assistance provided Pressure Reduction Devices: positioning supports utilized Intervention: Promote and Optimize Oral Intake Flowsheets (Taken 10/11/2024216) Oral Nutrition Promotion: rest periods promoted Nutrition Interventions: food preferences provided Problem: Fall Injury Risk Goal: Absence of Fall and Fall-Related Injury Outcome: Ongoing, Progressing Intervention: Identify and Manage Contributors Flowsheets (Taken 10/11/2024216) Medication Review/Management: medications reviewed Self-Care Promotion: BADL personal objects within reach Intervention: Promote Injury-Free Environment Flowsheets (Taken 10/10/20241999) Safety Promotion/Fall Prevention: fall prevention program maintained activity supervised room organization consistent safety round/check completed Problem: Wound Goal: Absence of Infection Signs and Symptoms Outcome: Ongoing, Progressing Intervention: Prevent or Manage Infection Flowsheets (Taken 10/11/2024216) Infection Management: aseptic technique maintained Fever Reduction/Comfort Measures: lightweight bedding Goal: Skin Health and Integrity Outcome: Ongoing, Progressing Intervention: Optimize Skin Protection Flowsheets Taken 10/10/20241999 Activity Management: bedrest Head of Bed (HOB) Positioning: HOB elevated Taken 10/10/2024 0400 Pressure Reduction Techniques: weight shift assistance provided Pressure Reduction Devices: positioning supports utilized Skin Protection: heel offloading device utilized Goal: Optimal Wound Healing Outcome: Ongoing, Progressing Intervention: Promote Wound Healing Flowsheets (Taken 10/11/2024216) Sleep/Rest Enhancement: awakenings minimized Problem: Hemodialysis Goal: Safe, Effective Therapy Delivery Outcome: Ongoing, Progressing Intervention: Optimize Device Care and Function Flowsheets (Taken 10/11/2024216) Medication Review/Management: medications reviewed Goal: Effective Tissue Perfusion Outcome: Ongoing, Progressing Intervention: Optimize Blood Flow Flowsheets (Taken 10/11/2024216) Stabilization Measures: legs elevated Goal: Absence of Infection Signs and Symptoms Outcome: Ongoing, Progressing Intervention: Prevent or Manage Infection Flowsheets (Taken 10/11/2024216) Infection Management: aseptic technique maintained Fever Reduction/Comfort Measures: lightweight bedding Infection Prevention: hand hygiene promoted Problem: Self-Care Deficit Goal: Improved Ability to Complete Activities of Daily Living Outcome: Ongoing, Progressing Intervention: Promote Activity and Functional [place] Flowsheets (Taken 10/11/2024216) Activity Assistance Provided: assistance, 2 people Adaptive Equipment Use: use encouraged Self-Care Promotion: BADL personal objects within reach Problem: Infection Goal: Absence of Infection Signs and Symptoms Outcome: Ongoing, Progressing Intervention: Prevent or Manage Infection Flowsheets Taken 10/11/2024216 Infection Management: aseptic technique maintained Fever Reduction/Comfort Measures: lightweight bedding Taken 10/10/20241999 Isolation Precautions: protective Problem: Diabetes Goal: Optimal Coping Outcome: Ongoing, Progressing Intervention: Support Wellbeing and Self-Management Success Flowsheets (Taken 10/11/2024216) Supportive Measures: active listening utilized Family/Support System Care: self-care encouraged Goal: Optimal Functional Ability Outcome: Ongoing, Progressing Intervention: Optimize Functional Ability Flowsheets Taken 10/11/2024216 Activity Assistance Provided: assistance, 2 people Adaptive Equipment Use: use encouraged Assistive Device Utilized: front wheel walker Self-Care Promotion: BADL personal objects within reach Taken 10/10/20241999 Activity Management: bedrest Goal: Blood Glucose Level Within Target Range Outcome: Ongoing, Progressing Intervention: Optimize Glycemic Control Flowsheets (Taken 10/11/2024216) Hyperglycemia Management: blood glucose monitored Goal: Minimize Hypoglycemia Risk Outcome: Ongoing, Progressing Intervention: Minimize and Manage Hypoglycemia Flowsheets (Taken 10/11/2024216) Hypoglycemia Management: blood glucose monitored Problem: Mobility Impairment Goal: Optimal Mobility Outcome: Ongoing, Progressing Intervention: Optimize Mobility Flowsheets Taken 10/11/2024216 Assistive Device Utilized: front wheel walker Positioning/Transfer Devices: pillows Taken 10/10/20241999 Activity Management: bedrest * Progress Notes - Lamont Brumfield MD - 10/10/2024 9:34 AM EDT Images from the original note were not included. [facility] Medicine Inpatient Progress Note Patient: Mundo Fernandez PCP: Leonard Botello MD Date: 10/10/2024 Subjective No new concerns reported by staff. Tolerating HD. Awaiting placement Review of Systems Unable to perform ROS: Psychiatric disorder Objective INPATENT MEDICATIONS Current Medications[1] ALLERGIES Allergies[2] 24 HOUR VITALS Temp: [36.4 ??C (97.6 ??F)-36.9 ??C (98.4 ??F)] 36.7 ??C (98 ??F) Heart Rate: [67-86] 83 Resp: [13-17] 16 BP: (111-194)/(57-86) 166/81 INTAKE/OUTPUT Intake/Output Summary (Last 24 hours) at 10/10/2024 0934 Last data filed at 10/09/2024 2000 Gross per 24 hour Intake 420 ml Output 2000 ml Net -1580 ml Physical Exam Constitutional: General: He is not in acute distress. Appearance: He is normal weight. He is not toxic-appearing. HENT: Head: Normocephalic. Right Ear: External ear normal. Left Ear: External ear normal. Nose: Nose normal. Mouth/Throat: Mouth: Mucous membranes are moist. Eyes: General: Right eye: No discharge. Left eye: No discharge. Extraocular Movements: Extraocular movements intact. Pupils: Pupils are equal, round, and reactive to light. Cardiovascular: Rate and Rhythm: Normal rate and regular rhythm. Pulmonary: Effort: Pulmonary effort is normal. Breath sounds: Normal breath sounds. Abdominal: General: Abdomen is flat. There is no distension. Musculoskeletal: General: No swelling, deformity or signs of injury. Cervical back: Normal range of motion and neck supple. Skin: General: Skin is warm. Findings: No lesion. Neurological: Mental Status: He is alert. Psychiatric: Attention and Perception: He is inattentive. Mood and Affect: Affect is inappropriate. Cognition and Memory: Cognition is impaired. Memory is impaired. Judgment: Judgment is impulsive. REVIEW OF LABORATORY DATA Lab Results Component Value Date WBC 7.44 10/02/2024 HGB 8.2 (L) 10/09/2024 HCT 23.7 (L) 10/09/2024 MCV 90 10/02/2024 PLT 119 (L) 10/02/2024 Lab Results Component Value Date GLUCOSE 96 10/07/2024 CALCIUM 7.2 (L) 10/07/2024 NA 125 (L) 10/07/2024 K 4.1 10/07/2024 CO2 23 10/07/2024 CL 92 (L) 10/07/2024 BUN 41 (H) 10/07/2024 CREATININE 6.91 (H) 10/07/2024 Lab Results Component Value Date ALT 6 (L) 09/30/2024 AST 13 09/30/2024 ALKPHOS 42 09/30/2024 BILITOT 0.6 09/30/2024 Lab Results Component Value Date INR 1.0 12/07/2022 REVIEW OF IMAGING STUDIES XR Chest 1 View Narrative: CLINICAL INDICATION: discharge clearance TECHNIQUE: XR CHEST 1 VIEW COMPARISON: April 28, 2023 FINDINGS: Small pleural effusions versus pleural thickening, decreased since prior. Low lung volumes with bilateral atelectasis. No consolidation. No pneumothorax. Impression: Decreased pleural effusions. CRITICAL RESULT: No. COMMUNICATION: Per this written report. Drafted by Mundo Martins MD on 08/25/2023 12:16 PM Final report signed by Mundo Martins MD on 08/25/2023 12:18 PM REVIEW OF PROCEDURES Assessment and Plan: Aakash Fernandez is a [place] 64 y.o. male with past history of ESRD on HD MWF, T2DM, HTN, chronic HFrEF, PAD, HLD, IDD/dementia, depression/anxiety, insomnia, chronic HCV, DM foot ulcer c/b OM s/p bilateral transmetarsal amputation, and debility sent from his [place] [facility] [place] to ED for medical evaluationafter refusing care. Declining functional status - Transferred to [place] [facility] a week ago and since arrival refusing HD, to eat, participate, or take medications - sent to ED for medical evaluation and need for higher level of assist/unable to care for self/non-compliance - afebrile, VSS, no acute complaints PLAN - PT/OT consult re: placement - legal guardian is his brother, Chris Fernandez, #[phone] (not answering calls since patient admission) Essential (primary) hypertension - increased carvedilol to 25 mg twice daily, nifedipine XL 60 mg daily (hold for BP <120/80 on dialysis days) At high risk for falls - wheelchair dependent, fall precautions ESRD (end stage renal disease) on dialysis ([facility]) - HD (MWF) - renally dose meds based on EGFR - strict I/O, daily weight Electrolyte and fluid disorder Hyponatremia Chronic kidney disease-mineral and bone disorder (CKD-MBD) - continue Renvela 800 mg TID with meals Anemia in chronic kidney disease (CODE) - Hgb stable, transfuse to keep >7 Type 2 diabetes mellitus with chronic kidney disease on chronic dialysis ([facility]) - last A1c 6.3 PLAN - ACHS regular SSI Dementia ([facility]) - Psych recommended; Asenapine 3.8 mg daily restarted (not on formulary his caregiver brought his patches) Mild intellectual disabilities - last neuropsych exam in 2023 found to not have capacity, brother is legal guardian - continue Depakote Sprinkle 250 mg twice daily Anxiety and depression - continue sertraline 75 mg daily Insomnia, unspecified - continue trazodone 100 mg at bedtime, melatonin 3 mg at bedtime Arterial insufficiency ([facility]) - continue aspirin 81 mg daily, clopidogrel 75 mg daily Mixed hyperlipidemia - continue atorvastatin 40 mg at bedtime 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 - continue statin, ASA, clopidogrel as above Gastroesophageal reflux disease without esophagitis - continue daily PPI Sensorineural hearing loss, bilateral - complicates all aspects of care Wears hearing aid in both ears - not present with patient on admission, have tried to call caregiver to bring them to hospital with no luck Chronic combined systolic (congestive) and diastolic (congestive) heart failure ([facility]) - ECHO 06/27/2022: EF 45%, abnormal diastolic dysfunction - strict I/O, 2 L fluid restriction, cardiac/renal/CCHO2 diet Chronic hepatitis C without hepatic coma ([facility]) - HCV RNA PCR not detected 07/13/2023 History of transmetatarsal amputation of foot ([facility]) - chronic OM 2/2 DM foot ulcers s/p bilateral transmetarsal amputation Inpatient Checklist: Inpatient checklist: - Bowel regimen: ducolax - Code status: Full Code - Diet: PO - DVT prophylaxis: heparin - Disposition: placement (possible APS report filled today) CODE STATUS: Full Code EMERGENCY CONTACT: Extended Emergency Contact Information Primary Emergency Contact: Chris Fernandez Mobile Relation: Legal Guardian Preferred language: Kosovan Repair Operator needed? No Secondary Emergency Contact: Mariel Chavez Address: [address] [place], [place] [id number] [facility] Mobile Relation: Lombardi Developer Repair Operator needed? No Lamont Brumfield MD Division of Hospital Medicine [phone] or secure message [1] Current Facility-Administered Medications: acetaminophen (Tylenol) tablet 650 mg, 650 mg, Oral, q6h PRN, Lala Valdes, MEDICAL ADMINISTRATIVE TECHNICIAN Asenapine 3.8mg/24 hr patch, 1 patch, Transdermal, q24h, Leda Gaitan MD, 1 patchat 10/09/24 1337 aspirin chewable tablet 81 mg, 81 mg, Oral, Daily, Lala Valdes MEDICAL ADMINISTRATIVE TECHNICIAN, 81 mg at 10/10/24 0901 atorvastatin (Lipitor) tablet 40 mg, 40 mg, Oral, Nightly, Lala Valdes, MEDICAL ADMINISTRATIVE TECHNICIAN, 40 mg at 10/09/24 2110 bisacodyl (Dulcolax) EC tablet 10 mg, 10 mg, Oral, Daily PRN, Lala Valdes MEDICAL ADMINISTRATIVE TECHNICIAN cadexomer iodine (Iodosorb) 0.9 % gel, , Topical, Daily, Tana Wooten MD, Given at 10/04/24 1311 carvedilol (Coreg) tablet 25 mg, 25 mg, Oral, BID, Leda Gaitan MD, 25 mg at 10/10/24 0901 clopidogrel (Plavix) tablet 75 mg, 75 mg, Oral, Daily, Lala Valdes MEDICAL ADMINISTRATIVE TECHNICIAN, 75 mg at 10/10/24 0901 glucose (Glutose) 40 % oral gel 15-30 grams of glucose, 15-30 grams of glucose, Sublingual, q15 minPRN OR dextrose 10 % (D10W) bolus 125 mL, 125 mL, Intravenous, q15 min PRN OR dextrose 10 %(D10W) bolus 250 mL, 250 mL, Intravenous, q15 min PRN OR glucagon (human recombinant) injection1 mg, 1 mg, Intramuscular, q15 min PRN, Lala Valdes, MEDICAL ADMINISTRATIVE TECHNICIAN divalproex sprinkle (Depakote Sprinkle) DR capsule 250 mg, 250 mg, Oral, BID, Lala Valdes MEDICAL ADMINISTRATIVE TECHNICIAN,250 mg at 10/10/24 09 heparin (porcine) injection 5,000 Units, 5,000 Units, Subcutaneous, q8h RAFAT, Lala Valdes MEDICAL ADMINISTRATIVE TECHNICIAN, 5,000 Units at 10/10/24 0643 insulin lispro (Admelog) 100 units/mL injection - Correction - Standard Dose, 0- 5 Units, Subcutaneous, TID with meals, Lala Valdes APRN, 3 Units at 10/08/24 1218 insulin lispro (Admelog) injection - Correction - Nighttime Dose, 0-3 Units, Subcutaneous, Twice atnight, Lala Valdes APRN melatonin tablet 3 mg, 3 mg, Oral, Nightly, Lala Valdes MEDICAL ADMINISTRATIVE TECHNICIAN, 3 mg at 10/09/242109 NIFEdipine XL (Procardia XL) 24 hr tablet 60 mg, 60 mg, Oral, Daily, Leda Gaitan MD, 60 mg at 10/10/24900 polyethylene glycol (Miralax) packet 17 g, 17 g, Oral, Daily, Lala Valdes MEDICAL ADMINISTRATIVE TECHNICIAN, 17 g at 10/10/24900 sertraline (Zoloft) tablet 75 mg, 75 mg, Oral, Daily, Lala Valdes, MEDICAL ADMINISTRATIVE TECHNICIAN, 75 mg at 10/10/24900 Insert peripheral IV, , , Once AND Saline lock IV, , , Once AND sodium chloride 0.9 % flush10 mL, 10 mL, Intravenous, q12h, 10 mL at 10/10/24901 AND sodium chloride 0.9 % flush 10 mL, 10 mL, Intravenous, PRN, Lala Valdes, MEDICAL ADMINISTRATIVE TECHNICIAN traZODone (Desyrel) tablet 100 mg, 100 mg, Oral, Nightly, Lala Valdes, MEDICAL ADMINISTRATIVE TECHNICIAN, 100 mg at 10/09/242109 Facility-Administered Medications Ordered in Other Encounters: lidocaine-EPINEPHrine (PF) (Xylocaine W/EPI) 1 %-1:424016 injection - Pyxis Override Pull, , , , lidocaine-EPINEPHrine (PF) (Xylocaine W/EPI) 1 %-1:709661 injection - Pyxis Override Pull, , , , [2] No Known Allergies * Care Plan - Rose Guy RN - 10/10/2024 7:53 AM EDT Problem: Adult Inpatient Plan of Care Goal: Plan of Care Review Outcome: Ongoing, Progressing Flowsheets (Taken 10/10/2024 0750) Progress: no change Plan of Care Reviewed With: patient Goal: Patient-Specific Goal (Individualized) Outcome: Ongoing, Progressing Goal: Absence of Hospital-Acquired Illness or Injury Outcome: Ongoing, Progressing Intervention: Identify and Manage Fall Risk Flowsheets (Taken 10/10/2024 0750) Safety Promotion/Fall Prevention: activity supervised assistive device/personal items within reach fall prevention program maintained Intervention: Prevent Skin Injury Flowsheets (Taken 10/10/2024 0750) Body Position: weight shifting Skin Protection: drying agents applied Intervention: Prevent and Manage VTE (Venous Thromboembolism) Risk Flowsheets (Taken 10/10/2024 0750) VTE Prevention/Management: medication Intervention: Prevent Infection Flowsheets (Taken 10/10/2024 0750) Infection Prevention: hand hygiene promoted rest/sleep promoted Goal: Optimal Comfort and Wellbeing Outcome: Ongoing, Progressing Intervention: Monitor Pain and Promote Comfort Flowsheets (Taken 10/10/2024 0750) Pain Management Interventions: medication (see MAR) Intervention: Provide Person-Centered Care Flowsheets (Taken 10/10/2024 0750) Trust Relationship/Rapport: care explained Goal: Readiness for Transition of Care Outcome: Ongoing, Progressing Intervention: Mutually Develop Transition Plan Flowsheets (Taken 10/10/2024 0750) Current Outpatient/Agency/Support Group: assisted living facility Problem: Skin Injury Risk Increased Goal: Skin Health and Integrity Outcome: Ongoing, Progressing Intervention: Optimize Skin Protection Flowsheets (Taken 10/10/2024 0750) Activity Management: activity adjusted per tolerance activity encouraged Skin Protection: drying agents applied Head of Bed (HOB) Positioning: HOB elevated Intervention: Promote and Optimize Oral Intake Flowsheets (Taken 10/10/2024 0750) Oral Nutrition Promotion: rest periods promoted Nutrition Interventions: diet adjusted Problem: Fall Injury Risk Goal: Absence of Fall and Fall-Related Injury Outcome: Ongoing, Progressing Intervention: Identify and Manage Contributors Flowsheets (Taken 10/10/2024 0750) Medication Review/Management: medications reviewed Self-Care Promotion: BADL personal objects within reach Intervention: Promote Injury-Free Environment Flowsheets (Taken 10/10/2024 0750) Safety Promotion/Fall Prevention: activity supervised assistive device/personal items within reach fall prevention program maintained Problem: Wound Goal: Absence of Infection Signs and Symptoms Outcome: Ongoing, Progressing Intervention: Prevent or Manage Infection Flowsheets (Taken 10/10/2024 0750) Infection Management: aseptic technique maintained Fever Reduction/Comfort Measures: lightweight bedding lightweight clothing Isolation Precautions: precautions maintained Goal: Skin Health and Integrity Outcome: Ongoing, Progressing Intervention: Optimize Skin Protection Flowsheets (Taken 10/10/2024 0750) Activity Management: activity adjusted per tolerance activity encouraged Head of Bed (HOB) Positioning: HOB elevated Goal: Optimal Wound Healing Outcome: Ongoing, Progressing Intervention: Promote Wound Healing Flowsheets (Taken 10/10/2024 0750) Sleep/Rest Enhancement: awakenings minimized consistent schedule promoted natural light exposure provided Problem: Hemodialysis Goal: Safe, Effective Therapy Delivery Outcome: Ongoing, Progressing Intervention: Optimize Device Care and Function Flowsheets (Taken 10/10/2024 0750) Medication Review/Management: medications reviewed Goal: Effective Tissue Perfusion Outcome: Ongoing, Progressing Intervention: Optimize Blood Flow Flowsheets (Taken 10/10/2024 0750) Stabilization Measures: verbal stimulation provided Goal: Absence of Infection Signs and Symptoms Outcome: Ongoing, Progressing Intervention: Prevent or Manage Infection Flowsheets (Taken 10/10/2024 0750) Infection Management: aseptic technique maintained Fever Reduction/Comfort Measures: lightweight bedding lightweight clothing Infection Prevention: hand hygiene promoted rest/sleep promoted Problem: Self-Care Deficit Goal: Improved Ability to Complete Activities of Daily Living Outcome: Ongoing, Progressing Intervention: Promote Activity and Functional [place] Flowsheets (Taken 10/10/2024 0750) Activity Assistance Provided: assistance, 2 people Adaptive Equipment Use: shower chair Self-Care Promotion: BADL personal objects within reach Problem: Infection Goal: Absence of Infection Signs and Symptoms Outcome: Ongoing, Progressing Intervention: Prevent or Manage Infection Flowsheets (Taken 10/10/2024 0750) Infection Management: aseptic technique maintained Fever Reduction/Comfort Measures: lightweight bedding lightweight clothing Isolation Precautions: precautions maintained Problem: Diabetes Goal: Optimal Coping Outcome: Ongoing, Progressing Intervention: Support Wellbeing and Self-Management [place] Flowsheets (Taken 10/10/2024 0750) Supportive Measures: active listening utilized self-care encouraged Family/Support System Care: self-care encouraged involvement promoted Note: Glucose monitored Goal: Optimal Functional Ability Outcome: Ongoing, Progressing Intervention: Optimize Functional Ability Flowsheets (Taken 10/10/2024 0750) Activity Management: activity adjusted per tolerance activity encouraged Activity Assistance Provided: assistance, 2 people Adaptive Equipment Use: shower chair Assistive Device Utilized: standard walker Self-Care Promotion: BADL personal objects within reach Goal: Blood Glucose Level Within Target Range Outcome: Ongoing, Progressing Goal: Minimize Hypoglycemia Risk Outcome: Ongoing, Progressing Intervention: Minimize and Manage Hypoglycemia Flowsheets (Taken 10/10/2024 0750) Hypoglycemia Management: blood glucose monitored Problem: Mobility Impairment Goal: Optimal Mobility Outcome: Ongoing, Progressing Intervention: Optimize Mobility Flowsheets (Taken 10/10/2024 0750) Activity Management: activity adjusted per tolerance activity encouraged Assistive Device Utilized: standard walker Positioning/Transfer Devices: pillows * Care Plan - Dayron Jama Jr. RN - 10/10/2024 4:06 AM EDT Problem: Adult Inpatient Plan of Care Goal: Plan of Care Review Outcome: Ongoing, Progressing Goal: Patient-Specific Goal (Individualized) Outcome: Ongoing, Progressing Goal: Absence of Hospital-Acquired Illness or Injury Outcome: Ongoing, Progressing Intervention: Identify and Manage Fall Risk Flowsheets (Taken 10/09/20241999) Safety Promotion/Fall Prevention: fall prevention program maintained activity supervised room organization consistent safety round/check completed Intervention: Prevent Skin Injury Flowsheets Taken 10/10/2024 0400 Skin Protection: incontinence pads utilized Taken 10/09/20241999 Body Position: weight shifting Intervention: Prevent and Manage VTE (Venous Thromboembolism) Risk Flowsheets (Taken 10/10/2024 0400) VTE Prevention/Management: medication Intervention: Prevent Infection Flowsheets (Taken 10/10/2024 0400) Infection Prevention: hand hygiene promoted Goal: Optimal Comfort and Wellbeing Outcome: Ongoing, Progressing Intervention: Monitor Pain and Promote Comfort Flowsheets (Taken 10/10/2024 0400) Pain Management Interventions: medication (see MAR) Intervention: Provide Person-Centered Care Flowsheets (Taken 10/10/2024 0400) Trust Relationship/Rapport: care explained Goal: Readiness for Transition of Care Outcome: Ongoing, Progressing Problem: Skin Injury Risk Increased Goal: Skin Health and Integrity Outcome: Ongoing, Progressing Intervention: Optimize Skin Protection Flowsheets Taken 10/10/2024 0400 Pressure Reduction Techniques: weight shift assistance provided Pressure Reduction Devices: positioning supports utilized Skin Protection: incontinence pads utilized Head of Bed (HOB) Positioning: HOB elevated Taken 10/09/20241999 Activity Management: bedrest Intervention: Promote and Optimize Oral Intake Flowsheets (Taken 10/10/2024 0400) Oral Nutrition Promotion: rest periods promoted Nutrition Interventions: frequent small meals provided Problem: Fall Injury Risk Goal: Absence of Fall and Fall-Related Injury Outcome: Ongoing, Progressing Intervention: Identify and Manage Contributors Flowsheets (Taken 10/10/2024 0400) Medication Review/Management: medications reviewed Self-Care Promotion: BADL personal objects within reach Intervention: Promote Injury-Free Environment Flowsheets (Taken 10/09/20241999) Safety Promotion/Fall Prevention: fall prevention program maintained activity supervised room organization consistent safety round/check completed Problem: Wound Goal: Absence of Infection Signs and Symptoms Outcome: Ongoing, Progressing Intervention: Prevent or Manage Infection Flowsheets Taken 10/10/2024 0400 Infection Management: aseptic technique maintained Fever Reduction/Comfort Measures: lightweight bedding Taken 10/09/20241999 Isolation Precautions: protective Goal: Skin Health and Integrity Outcome: Ongoing, Progressing Intervention: Optimize Skin Protection Flowsheets Taken 10/10/2024 0400 Pressure Reduction Techniques: weight shift assistance provided Pressure Reduction Devices: positioning supports utilized Skin Protection: heel offloading device utilized Head of Bed (HOB) Positioning: HOB elevated Taken 10/09/20241999 Activity Management: bedrest Goal: Optimal Wound Healing Outcome: Ongoing, Progressing Intervention: Promote Wound Healing Flowsheets (Taken 10/10/2024 0400) Sleep/Rest Enhancement: awakenings minimized Problem: Hemodialysis Goal: Safe, Effective Therapy Delivery Outcome: Ongoing, Progressing Intervention: Optimize Device Care and Function Flowsheets (Taken 10/10/2024 0400) Medication Review/Management: medications reviewed Goal: Effective Tissue Perfusion Outcome: Ongoing, Progressing Intervention: Optimize Blood Flow Flowsheets (Taken 10/10/2024 0400) Stabilization Measures: legs elevated Goal: Absence of Infection Signs and Symptoms Outcome: Ongoing, Progressing Intervention: Prevent or Manage Infection Flowsheets (Taken 10/10/2024 0400) Infection Management: aseptic technique maintained Fever Reduction/Comfort Measures: lightweight bedding Infection Prevention: hand hygiene promoted Problem: Self-Care Deficit Goal: Improved Ability to Complete Activities of Daily Living Outcome: Ongoing, Progressing Intervention: Promote Activity and Functional [place] Flowsheets (Taken 10/10/2024 0400) Activity Assistance Provided: assistance, 2 people Adaptive Equipment Use: used with assistance Self-Care Promotion: BADL personal objects within reach Problem: Infection Goal: Absence of Infection Signs and Symptoms Outcome: Ongoing, Progressing Intervention: Prevent or Manage Infection Flowsheets (Taken 10/10/2024 0400) Infection Management: aseptic technique maintained Fever Reduction/Comfort Measures: lightweight bedding Problem: Diabetes Goal: Optimal Coping Outcome: Ongoing, Progressing Intervention: Support Wellbeing and Self-Management Success Flowsheets (Taken 10/10/2024 0400) Supportive Measures: active listening utilized Family/Support System Care: self-care encouraged Goal: Optimal Functional Ability Outcome: Ongoing, Progressing Intervention: Optimize Functional Ability Flowsheets Taken 10/10/2024 0400 Activity Assistance Provided: assistance, 2 people Adaptive Equipment Use: used with assistance Assistive Device Utilized: front wheel walker Self-Care Promotion: BADL personal objects within reach Taken 10/09/20241999 Activity Management: bedrest Goal: Blood Glucose Level Within Target Range Outcome: Ongoing, Progressing Intervention: Optimize Glycemic Control Flowsheets (Taken 10/10/2024 0400) Hyperglycemia Management: blood glucose monitored Goal: Minimize Hypoglycemia Risk Outcome: Ongoing, Progressing Intervention: Minimize and Manage Hypoglycemia Flowsheets (Taken 10/10/2024 0400) Hypoglycemia Management: blood glucose monitored Problem: Mobility Impairment Goal: Optimal Mobility Outcome: Ongoing, Progressing Intervention: Optimize Mobility Flowsheets Taken 10/10/2024 0400 Assistive Device Utilized: front wheel walker Positioning/Transfer Devices: pillows Taken 10/09/20241999 Activity Management: bedrest * Nursing Note - Dayron Jama Jr. RN - 10/10/2024 4:00 AM EDT Resting in bed, eyes closed, breathing easily * Consults - Lavonne, Nils L, RN - 10/09/2024 3:46 PM EDTAssociated Order(s): IP CONSULT TO ADULT VASCULAR ACCESS TEAM Labs collected at bedside * Progress Notes - Lamont Brumfield MD - 10/09/2024 2:20 PM EDT Images from the original note were not included. [facility] Inpatient Progress Note Patient: Mundo Fernandez PCP: Leonard Botello MD Date: 10/09/2024 Subjective No new concerns reported by staff. Awaiting placement Review of Systems Unable to perform ROS: Psychiatric disorder Objective INPATENT MEDICATIONS Current Medications[1] ALLERGIES Allergies[2] 24 HOUR VITALS Temp: [36.1 ??C (96.9 ??F)-37 ??C (98.6 ??F)] 37 ??C (98.6 ??F) Heart Rate: [67-84] 79 Resp: [16] 16 BP: (111-203)/(57-90) 152/74 INTAKE/OUTPUT No intake or output data in the 24 hours ending 10/09/24 1420 Physical Exam Constitutional: General: He is not in acute distress. Appearance: He is normal weight. He is not toxic-appearing. HENT: Head: Normocephalic. Right Ear: External ear normal. Left Ear: External ear normal. Nose: Nose normal. Mouth/Throat: Mouth: Mucous membranes are moist. Eyes: General: Right eye: No discharge. Left eye: No discharge. Extraocular Movements: Extraocular movements intact. Pupils: Pupils are equal, round, and reactive to light. Cardiovascular: Rate and Rhythm: Normal rate and regular rhythm. Pulmonary: Effort: Pulmonary effort is normal. Breath sounds: Normal breath sounds. Abdominal: General: Abdomen is flat. There is no distension. Musculoskeletal: General: No swelling, deformity or signs of injury. Cervical back: Normal range of motion and neck supple. Skin: General: Skin is warm. Findings: No lesion. Neurological: Mental Status: He is alert. Psychiatric: Attention and Perception: He is inattentive. Mood and Affect: Affect is inappropriate. Cognition and Memory: Cognition is impaired. Memory is impaired. Judgment: Judgment is impulsive. REVIEW OF LABORATORY DATA Lab Results Component Value Date WBC 7.44 10/02/2024 HGB 10.4 (L) 10/02/2024 HCT 29.8 (L) 10/02/2024 MCV 90 10/02/2024 PLT 119 (L) 10/02/2024 Lab Results Component Value Date GLUCOSE 96 10/07/2024 CALCIUM 7.2 (L) 10/07/2024 NA 125 (L) 10/07/2024 K 4.1 10/07/2024 CO2 23 10/07/2024 CL 92 (L) 10/07/2024 BUN 41 (H) 10/07/2024 CREATININE 6.91 (H) 10/07/2024 Lab Results Component Value Date ALT 6 (L) 09/30/2024 AST 13 09/30/2024 ALKPHOS 42 09/30/2024 BILITOT 0.6 09/30/2024 Lab Results Component Value Date INR 1.0 12/07/2022 REVIEW OF IMAGING STUDIES XR Chest 1 View Narrative: CLINICAL INDICATION: discharge clearance TECHNIQUE: XR CHEST 1 VIEW COMPARISON: April 28, 2023 FINDINGS: Small pleural effusions versus pleural thickening, decreased since prior. Low lung volumes with bilateral atelectasis. No consolidation. No pneumothorax. Impression: Decreased pleural effusions. CRITICAL RESULT: No. COMMUNICATION: Per this written report. Drafted by Mundo Martins MD on 08/25/2023 12:16 PM Final report signed by Mundo Martins MD on 08/25/2023 12:18 PM REVIEW OF PROCEDURES Assessment and Plan: Aakash Fernandez is a [place] 64 y.o. male with past history of ESRD on HD MWF, T2DM, HTN, chronic HFrEF, PAD, HLD, IDD/dementia, depression/anxiety, insomnia, chronic HCV, DM foot ulcer c/b OM s/p bilateral transmetarsal amputation, and debility sent from [place] [facility] to ED for medical evaluationafter refusing care. Declining functional status - Transferred to [place] [facility] a week ago and since arrival refusing HD, to eat, participate, or take medications - sent to ED for medical evaluation and need for higher level of assist/unable to care for self/non-compliance - afebrile, VSS, no acute complaints PLAN - PT/OT consult re: placement - legal guardian is his brother, Chris Fernandez, #[phone] (not answering calls since patient admission) Essential (primary) hypertension - increased carvedilol to 25 mg twice daily, nifedipine XL 60 mg daily (hold for BP <120/80 on dialysis days) At high risk for falls - wheelchair dependent, fall precautions ESRD (end stage renal disease) on dialysis ([facility]) - HD (MWF) - renally dose meds based on EGFR - strict I/O, daily weight Electrolyte and fluid disorder Hyponatremia - switch lokelma daily to 10 mg on non-dialysis days - follow-up RFP, trend Na Chronic kidney disease-mineral and bone disorder (CKD-MBD) - continue Renvela 800 mg TID with meals Anemia in chronic kidney disease (CODE) - Hgb stable, transfuse to keep >7 - ferritin, iron studies Type 2 diabetes mellitus with chronic kidney disease on chronic dialysis ([facility]) - last A1c 6.3 PLAN - ACHS regular SSI - hold home glargine 5U at bedtime while trend glucose/PO intake Dementia ([facility]) - Delirium precautions - Psych recommended to restart Asenapine 3.8 mg daily (not on formulary his caregiver will bring some of his patches) Mild intellectual disabilities - last neuropsych exam in 2023 found to not have capacity, brother is legal guardian - continue Depakote Sprinkle 250 mg twice daily Anxiety and depression - continue sertraline 75 mg daily Insomnia, unspecified - continue trazodone 100 mg at bedtime, melatonin 3 mg at bedtime Arterial insufficiency ([facility]) - continue aspirin 81 mg daily, clopidogrel 75 mg daily Mixed hyperlipidemia - continue atorvastatin 40 mg at bedtime 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 - continue statin, ASA, clopidogrel as above Gastroesophageal reflux disease without esophagitis - continue daily PPI Sensorineural hearing loss, bilateral - complicates all aspects of care Wears hearing aid in both ears - not present with patient on admission, have tried to call caregiver to bring them to hospital with no luck Chronic combined systolic (congestive) and diastolic (congestive) heart failure ([facility]) - ECHO 06/27/2022: EF 45%, abnormal diastolic dysfunction - strict I/O, 2 L fluid restriction, cardiac/renal/CCHO2 diet Chronic hepatitis C without hepatic coma (CMS/HCC) - HCV RNA PCR not detected 07/13/2023 History of transmetatarsal amputation of foot (CMS/HCC) - chronic OM 2/2 DM foot ulcers s/p bilateral transmetarsal amputation Inpatient Checklist: Inpatient checklist: - Bowel regimen: ducolax - Code status: Full Code - Diet: PO - DVT prophylaxis: heparin - Disposition: placement (possible APS report filled today) CODE STATUS: Full Code EMERGENCY CONTACT: Extended Emergency Contact Information Primary Emergency Contact: Chris Fernandez Mobile Relation: Legal Guardian Preferred language: Kosovan Repair Operator needed? No Secondary Emergency Contact: ChandlerpiperMariel Address: [address] [place] [address] Mobile Relation: Lombardi Developer Repair Operator needed? No Lamont Brumfield MD Division of Hospital Medicine [phone] or secure message [1] Current Facility-Administered Medications: acetaminophen (Tylenol) tablet 650 mg, 650 mg, Oral, q6h PRN, Lala Valdes B, MEDICAL ADMINISTRATIVE TECHNICIAN alteplase (Cathflo Activase) injection 4 mg, 4 mg, Intracatheter, PRN, Daphne Landry APRN, DNP Asenapine 3.8mg/24 hr patch, 1 patch, Transdermal, q24h, Leda Gaitan MD, 1 patchat 10/09/24 1337 aspirin chewable tablet 81 mg, 81 mg, Oral, Daily, Lala Valdes B, MEDICAL ADMINISTRATIVE TECHNICIAN, 81 mg at 10/09/24 1337 atorvastatin (Lipitor) tablet 40 mg, 40 mg, Oral, Nightly, Lala Valdes, MEDICAL ADMINISTRATIVE TECHNICIAN, 40 mg at 10/08/242043 bisacodyl (Dulcolax) EC tablet 10 mg, 10 mg, Oral, Daily PRN, Lucio Gitana B, MEDICAL ADMINISTRATIVE TECHNICIAN cadexomer iodine (Iodosorb) 0.9 % gel, , Topical, Daily, Tana Wooten MD, Given at 10/04/24 1311 carvedilol (Coreg) tablet 25 mg, 25 mg, Oral, BID, Leda Gaitan MD, 25 mg at 10/09/24 1337 clopidogrel (Plavix) tablet 75 mg, 75 mg, Oral, Daily, Lala Valdes APRN, 75 mg at 10/09/24 1336 glucose (Glutose) 40 % oral gel 15-30 grams of glucose, 15-30 grams of glucose, Sublingual, q15 minPRN OR dextrose 10 % (D10W) bolus 125 mL, 125 mL, Intravenous, q15 min PRN OR dextrose 10 %(D10W) bolus 250 mL, 250 mL, Intravenous, q15 min PRN OR glucagon (human recombinant) injection1 mg, 1 mg, Intramuscular, q15 min PRN, Lala Valdes APRN divalproex sprinkle (Depakote Sprinkle) DR capsule 250 mg, 250 mg, Oral, BID, Lala Valdes APRN,250 mg at 10/09/24 1336 heparin (porcine) injection 5,000 Units, 5,000 Units, Subcutaneous, q8h RAFAT, Lala Valdes APRN, 5,000 Units at 10/09/24 1337 insulin lispro (Admelog) 100 units/mL injection - Correction - Standard Dose, 0- 5 Units, Subcutaneous, TID with meals, Lala Valdes APRN, 3 Units at 10/08/24 1218 insulin lispro (Admelog) injection - Correction - Nighttime Dose, 0-3 Units, Subcutaneous, Twice atnight, Lala Valdes APRN melatonin tablet 3 mg, 3 mg, Oral, Nightly, Lala Valdes MEDICAL ADMINISTRATIVE TECHNICIAN, 3 mg at 10/08/24 2044 NIFEdipine XL (Procardia XL) 24 hr tablet 60 mg, 60 mg, Oral, Daily, Leda Gaitan MD, 60 mg at 10/09/24 1336 polyethylene glycol (Miralax) packet 17 g, 17 g, Oral, Daily, Lala Valdes APRN, 17 g at 10/06/24 0828 sertraline (Zoloft) tablet 75 mg, 75 mg, Oral, Daily, Lala Valdes APRN, 75 mg at 10/09/24 1337 Insert peripheral IV, , , Once AND Saline lock IV, , , Once AND sodium chloride 0.9 % flush10 mL, 10 mL, Intravenous, q12h, 10 mL at 10/04/242031 AND sodium chloride 0.9 % flush 10 mL, 10 mL, Intravenous, PRN, Lucio Gitana B, MEDICAL ADMINISTRATIVE TECHNICIAN sodium citrate anticoagulant 4 % flush 6 mL, 6 mL, Intracatheter, PRN, Rust, Daphne L, MEDICAL ADMINISTRATIVE TECHNICIAN, DNP traZODone (Desyrel) tablet 100 mg, 100 mg, Oral, Nightly, Lucio, Gitana B, MEDICAL ADMINISTRATIVE TECHNICIAN, 100 mg at 10/08/242043 Facility-Administered Medications Ordered in Other Encounters: lidocaine-EPINEPHrine (PF) (Xylocaine W/EPI) 1 %-1:927175 injection - Pyxis Override Pull, , , , lidocaine-EPINEPHrine (PF) (Xylocaine W/EPI) 1 %-1:440982 injection - Pyxis Override Pull, , , , [2] No Known Allergies * Care Plan - Dorothea Rai RN - 10/09/2024 12:08 PM EDT Problem: Adult Inpatient Plan of Care Goal: Plan of Care Review Outcome: Ongoing, Progressing Flowsheets (Taken 10/09/20241204) Progress: no change Outcome Evaluation: pt will remain free of harm during this shift Plan of Care Reviewed With: patient Goal: Patient-Specific Goal (Individualized) Outcome: Ongoing, Progressing Goal: Absence of Hospital-Acquired Illness or Injury Outcome: Ongoing, Progressing Intervention: Identify and Manage Fall Risk Flowsheets (Taken 10/09/2024 1205) Safety Promotion/Fall Prevention: activity supervised Intervention: Prevent Skin Injury Flowsheets Taken 10/09/2024 120 Body Position: weight shifting Taken 10/09/2024 08 Skin Protection: incontinence pads utilized Intervention: Prevent and Manage VTE (Venous Thromboembolism) Risk Flowsheets (Taken 10/09/2024 1205) VTE Prevention/Management: medication Intervention: Prevent Infection Flowsheets (Taken 10/09/2024 0800) Infection Prevention: environmental surveillance performed hand hygiene promoted rest/sleep promoted Goal: Optimal Comfort and Wellbeing Outcome: Ongoing, Progressing Intervention: Monitor Pain and Promote Comfort Flowsheets (Taken 10/08/2024 1136) Pain Management Interventions: medication offered but refused Intervention: Provide Person-Centered Care Flowsheets (Taken 10/09/2024 0800) Trust Relationship/Rapport: care explained questions encouraged Goal: Readiness for Transition of Care Outcome: Ongoing, Progressing Intervention: Mutually Develop Transition Plan Flowsheets Taken 10/09/2024 1205 Equipment Currently Used at Home: walker, rolling Taken 10/08/2024 1136 Concerns to be Addressed: cognitive/perceptual patient refuses services Readmission Within the Last 30 Days: lack of support Problem: Skin Injury Risk Increased Goal: Skin Health and Integrity Outcome: Ongoing, Progressing Intervention: Optimize Skin Protection Flowsheets (Taken 10/09/2024 0800) Activity Management: activity adjusted per tolerance activity encouraged patient refuses activity Pressure Reduction Techniques: frequent weight shift encouraged Pressure Reduction Devices: heel offloading device utilized Head of Bed (HOB) Positioning: HOB elevated Intervention: Promote and Optimize Oral Intake Flowsheets (Taken 10/09/2024 0800) Oral Nutrition Promotion: physical activity promoted Nutrition Interventions: frequent small meals provided Problem: Fall Injury Risk Goal: Absence of Fall and Fall-Related Injury Outcome: Ongoing, Progressing Intervention: Identify and Manage Contributors Flowsheets (Taken 10/09/2024 08) Medication Review/Management: medications reviewed Self-Care Promotion: independence encouraged BADL personal objects within reach Intervention: Promote Injury-Free Environment Flowsheets (Taken 10/09/2024 1205) Safety Promotion/Fall Prevention: activity supervised Problem: Wound Goal: Absence of Infection Signs and Symptoms Outcome: Ongoing, Progressing Intervention: Prevent or Manage Infection Flowsheets Taken 10/09/2024 0400 by Carri Chand Isolation Precautions: protective Taken 10/08/2024 1136 by Dorothea Rai RN Infection Management: aseptic technique maintained Goal: Skin Health and Integrity Outcome: Ongoing, Progressing Intervention: Optimize Skin Protection Flowsheets (Taken 10/09/2024 0800) Activity Management: activity adjusted per tolerance activity encouraged patient refuses activity Pressure Reduction Techniques: frequent weight shift encouraged Pressure Reduction Devices: heel offloading device utilized Skin Protection: frequent weight shift encouraged Head of Bed (HOB) Positioning: HOB elevated Goal: Optimal Wound Healing Outcome: Ongoing, Progressing Intervention: Promote Wound Healing Flowsheets (Taken 10/09/2024 08) Sleep/Rest Enhancement: noise level reduced awakenings minimized room darkened relaxation techniques promoted Problem: Hemodialysis Goal: Safe, Effective Therapy Delivery Outcome: Ongoing, Progressing Intervention: Optimize Device Care and Function Flowsheets (Taken 10/09/2024 08) Medication Review/Management: medications reviewed Goal: Effective Tissue Perfusion Outcome: Ongoing, Progressing Intervention: Optimize Blood Flow Flowsheets (Taken 10/09/2024 1205) Stabilization Measures: legs elevated Goal: Absence of Infection Signs and Symptoms Outcome: Ongoing, Progressing Intervention: Prevent or Manage Infection Flowsheets Taken 10/09/2024 08 Infection Prevention: environmental surveillance performed hand hygiene promoted rest/sleep promoted Taken 10/08/2024 1136 Infection Management: aseptic technique maintained Problem: Self-Care Deficit Goal: Improved Ability to Complete Activities of Daily Living Outcome: Ongoing, Progressing Intervention: Promote Activity and Functional [place] Flowsheets (Taken 10/09/2024 08) Activity Assistance Provided: assistance, 2 people Self-Care Promotion: independence encouraged BADL personal objects within reach Problem: Infection Goal: Absence of Infection Signs and Symptoms Outcome: Ongoing, Progressing Intervention: Prevent or Manage Infection Flowsheets Taken 10/09/2024 0400 by Carri Chand Isolation Precautions: protective Taken 10/08/2024 1136 by Dorothea Rai RN Infection Management: aseptic technique maintained Problem: Diabetes Goal: Optimal Coping Outcome: Ongoing, Progressing Intervention: Support Wellbeing and Self-Management [place] Flowsheets (Taken 10/09/2024 08) Supportive Measures: active listening utilized relaxation techniques promoted Family/Support System Care: self-care encouraged Goal: Optimal Functional Ability Outcome: Ongoing, Progressing Intervention: Optimize Functional Ability Flowsheets (Taken 10/09/2024 08) Activity Management: activity adjusted per tolerance activity encouraged patient refuses activity Activity Assistance Provided: assistance, 2 people Goal: Blood Glucose Level Within Target Range Outcome: Ongoing, Progressing Intervention: Optimize Glycemic Control Flowsheets (Taken 10/09/2024 08) Hyperglycemia Management: blood glucose monitored Goal: Minimize Hypoglycemia Risk Outcome: Ongoing, Progressing Intervention: Minimize and Manage Hypoglycemia Flowsheets (Taken 10/09/2024 08) Hypoglycemia Management: blood glucose monitored Problem: Mobility Impairment Goal: Optimal Mobility Outcome: Ongoing, Progressing Intervention: Optimize Mobility Flowsheets (Taken 10/09/2024 08) Activity Management: activity adjusted per tolerance activity encouraged patient refuses activity Positioning/Transfer Devices: pillows * Progress Notes - Donny Tovar MD - 10/09/2024 10:46 AM EDT Hemodialysis Procedure Note Chief Compliant/reason for consult: ESRD on dialysis HPI: No acute events overnight. Seen and examined on dialysis. Tolerating well. Physical Exam: Visit Vitals BP (!) 178/77 (BP Location: Left arm, Patient Position: Lying) Pulse 83 Temp 37 ??C (98.6 ??F) (Oral) Resp 16 Ht 1.778 m (5' 10 ) Wt 76.8 kg (169 lb 5 oz) SpO2 97% BMI 24.29 kg/m?? Smoking Status Never BSA 1.95 m?? GA: NAD, on dialysis Resp: Normal respiratory effort CV: Trace BLE edema Dialysis Access: AVF RUE accessed for dialysis No intake or output data in the 24 hours ending 10/09/24 1046 Current Medications: reviewed Current Scheduled Medications[1] Current Continuous Medications[2] Current PRN Medications[3] Laboratory Results Results from last 7 days Lab Units 10/07/24 0248 10/06/24 0305 SODIUM mmol/L 125* 125* POTASSIUM mmol/L 4.1 3.8 CHLORIDE mmol/L 92* 92* CO2 mmol/L 23 23 BUN mg/dL 41* 30* CREATININE mg/dL 6.91* 5.95* CALCIUM mg/dL 7.2* 7.5* PHOSPHORUS mg/dL 4.2 3.5 MAGNESIUM mg/dL 1.6* 1.8* Assessment: - ESRD on Hemodialysis - Disorders of fluid, electrolytes and acid-base balance - Hypervolemia in renal insufficiency - Renal osteodystrophy - Anemia in ESRD Plan: - HD today. Continue MWF schedule while inpatient. - Will ultrafiltrate as tolerated on dialysis - Will adjust dialysate composition to help maintaining normal electrolytes and acid base balance - Will follow for ANGELITA requirements; Hgb at goal - Will follow for Phos binder requirements - Daily weight - Renal diet - Renally dose medications for HD - I saw and evaluated the patient during dialysis treatment. Currently patient is tolerating treatment with stable hemodynamics. Dialysis flowsheet, dialysis bath and machine settings reviewed. No issues with current flow settings and access flows are acceptable. BFR 300-400 ml/min, DFR 600-800 ml/min, 3.5K / 2.5Ca / 32 bicarb. UF 1.5L as tolerated. Please see dialysis flowsheet for treatment's details. Dialysis Medications sodium citrate anticoagulant 4 % flush 6 mL 6 mL, Intracatheter, Every visit, As needed alteplase (Cathflo Activase) injection 4 mg 4 mg, Intracatheter, Every visit, As needed Dialysis Treatment Hemodialysis inpatient 3 hr (180 min); Revaclear 400; 35.5; 3.5; 2.5; 136; 32; 1-2; Remove UF as tolerated; 300-400; 2X Blood Flow Rate; Adult; AV Fistula; 15 ga Once Every visit, Once Duration of Treatment: 3 hr (180 min) Dialyzer: Revaclear 400 Dialysate Temperature (Centigrade): 35.5 Dialysate: Potassium (mEq/L): 3.5 Dialysate: Calcium (mEq/L): 2.5 Dialysate: Sodium (mEq/L): 136 Dialysate: Bicarb (mEq/L): 32 Net fluid removal (Ultrafiltration) (L): 1-2 As tolerated: Remove UF as tolerated BFR (mL/min): 300-400 Dialysate Flow Rate (mL/min): 2X Blood Flow Rate Tubing: Adult Access Site: AV Fistula Needle Size: 15 ga Nursing general assessments and interventions Every visit, Once Labs Hepatitis B Surface Antibody, Quantitative Every 28 days, Once Release to patient in [facility]: Immediate Hepatitis panel, acute Every 28 days, Once Release to patient in [facility]: Immediate Zechariah Tovar MD Nephrology [1] Asenapine, 1 patch, Transdermal, q24h aspirin, 81 mg, Oral, Daily atorvastatin, 40 mg, Oral, Nightly cadexomer iodine, , Topical, Daily carvedilol, 25 mg, Oral, BID clopidogrel, 75 mg, Oral, Daily divalproex sprinkle, 250 mg, Oral, BID heparin (porcine), 5,000 Units, Subcutaneous, q8h RAFAT insulin lispro, 0-5 Units, Subcutaneous, TID with meals insulin lispro, 0-3 Units, Subcutaneous, Twice at night melatonin, 3 mg, Oral, Nightly NIFEdipine XL, 60 mg, Oral, Daily polyethylene glycol, 17 g, Oral, Daily sertraline, 75 mg, Oral, Daily sodium chloride, 10 mL, Intravenous, q12h traZODone, 100 mg, Oral, Nightly [2] [3] PRN medications: acetaminophen, alteplase, bisacodyl, glucose OR dextrose 10 % OR dextrose 10 % OR glucagon (human recombinant), Insert peripheral IV AND Saline lock IV AND sodium chloride AND sodium chloride, sodium citrate anticoagulant * Care Plan - JagrutiCarri - 10/09/2024 3:40 AM EDT Problem: Adult Inpatient Plan of Care Goal: Plan of Care Review Outcome: Ongoing, Progressing Flowsheets (Taken 10/09/2024330) Progress: no change Outcome Evaluation: Patient will remain free of harm during the shift Plan of Care Reviewed With: patient Goal: Patient-Specific Goal (Individualized) Outcome: Ongoing, Progressing Flowsheets (Taken 10/08/20241999) Patient/Family-Specific Goals (Include Timeframe): patient will remain hemodynamically stable and free of harm during the shift Individualized Care Needs: safety, skin integrity Anxieties, Fears or Concerns: unable to assess Goal: Absence of Hospital-Acquired Illness or Injury Outcome: Ongoing, Progressing Intervention: Identify and Manage Fall Risk Flowsheets (Taken 10/08/20241999) Safety Promotion/Fall Prevention: fall prevention program maintained activity supervised clutter-free environment maintained safety round/check completed Intervention: Prevent Skin Injury Flowsheets (Taken 10/09/2024330) Body Position: weight shifting education provided Skin Protection: incontinence pads utilized Intervention: Prevent and Manage VTE (Venous Thromboembolism) Risk Flowsheets (Taken 10/08/20241999) VTE Prevention/Management: medication Intervention: Prevent Infection Flowsheets (Taken 10/09/2024330) Infection Prevention: environmental surveillance performed hand hygiene promoted rest/sleep promoted Goal: Optimal Comfort and Wellbeing Outcome: Ongoing, Progressing Intervention: Provide Person-Centered Care Flowsheets (Taken 10/09/2024330) Trust Relationship/Rapport: care explained questions encouraged Goal: Readiness for Transition of Care Outcome: Ongoing, Progressing Intervention: Mutually Develop Transition Plan Flowsheets (Taken 10/09/2024330) Equipment Currently Used at Home: walker, rolling Current Outpatient/Agency/Support Group: [facility] Anticipated Changes Related to Illness: inability to care for self Current Discharge Risk: cognitively impaired physical impairment Patient/Family Anticipates Transition to: long-term care facility Problem: Skin Injury Risk Increased Goal: Skin Health and Integrity Outcome: Ongoing, Progressing Intervention: Optimize Skin Protection Flowsheets (Taken 10/09/2024330) Activity Management: activity adjusted per tolerance activity encouraged patient refuses activity Pressure Reduction Techniques: frequent weight shift encouraged Pressure Reduction Devices: heel offloading device utilized Skin Protection: incontinence pads utilized Head of Bed (HOB) Positioning: HOB elevated Intervention: Promote and Optimize Oral Intake Flowsheets (Taken 10/09/2024330) Oral Nutrition Promotion: physical activity promoted Nutrition Interventions: frequent small meals provided Problem: Fall Injury Risk Goal: Absence of Fall and Fall-Related Injury Outcome: Ongoing, Progressing Intervention: Identify and Manage Contributors Flowsheets (Taken 10/09/2024330) Medication Review/Management: medications reviewed Self-Care Promotion: independence encouraged BADL personal objects within reach Intervention: Promote Injury-Free Environment Flowsheets (Taken 10/08/20241999) Safety Promotion/Fall Prevention: fall prevention program maintained activity supervised clutter-free environment maintained safety round/check completed Problem: Wound Goal: Absence of Infection Signs and Symptoms Outcome: Ongoing, Progressing Intervention: Prevent or Manage Infection Flowsheets (Taken 10/09/2024330) Fever Reduction/Comfort Measures: lightweight bedding Goal: Skin Health and Integrity Outcome: Ongoing, Progressing Intervention: Optimize Skin Protection Flowsheets (Taken 10/09/2024330) Activity Management: activity adjusted per tolerance activity encouraged patient refuses activity Pressure Reduction Techniques: frequent weight shift encouraged Pressure Reduction Devices: heel offloading device utilized Skin Protection: frequent weight shift encouraged Head of Bed (HOB) Positioning: HOB elevated Goal: Optimal Wound Healing Outcome: Ongoing, Progressing Intervention: Promote Wound Healing Flowsheets (Taken 10/09/2024330) Sleep/Rest Enhancement: noise level reduced awakenings minimized room darkened relaxation techniques promoted Problem: Hemodialysis Goal: Safe, Effective Therapy Delivery Outcome: Ongoing, Progressing Intervention: Optimize Device Care and Function Flowsheets (Taken 10/09/2024330) Medication Review/Management: medications reviewed Goal: Effective Tissue Perfusion Outcome: Ongoing, Progressing Intervention: Optimize Blood Flow Flowsheets (Taken 10/09/2024330) Stabilization Measures: (patient refused) other (see comments) Goal: Absence of Infection Signs and Symptoms Outcome: Ongoing, Progressing Intervention: Prevent or Manage Infection Flowsheets (Taken 10/09/2024330) Fever Reduction/Comfort Measures: lightweight bedding Infection Prevention: environmental surveillance performed hand hygiene promoted rest/sleep promoted Problem: Mobility Impairment Goal: Optimal Mobility Outcome: Ongoing, Progressing Intervention: Optimize Mobility Flowsheets (Taken 10/09/2024330) Activity Management: activity adjusted per tolerance activity encouraged patient refuses activity Positioning/Transfer Devices: pillows * Progress Notes - Lamont Brumfield MD - 10/08/2024 6:03 PM EDT Images from the original note were not included. [facility] Medicine Inpatient Progress Note Patient: Mundo Fernandez PCP: Leonard Botello MD Date: 10/08/2024 Subjective No new concerns reported by staff. Awaiting placement Review of Systems Unable to perform ROS: Psychiatric disorder Objective INPATENT MEDICATIONS Current Medications[1] ALLERGIES Allergies[2] 24 HOUR VITALS Temp: [36.4 ??C (97.5 ??F)-36.7 ??C (98 ??F)] 36.6 ??C (97.8 ??F) Heart Rate: [62-81] 81 Resp: [14-18] 16 BP: (94-196)/(56-89) 176/79 INTAKE/OUTPUT No intake or output data in the 24 hours ending 10/08/24 1803 Physical Exam Constitutional: General: He is not in acute distress. Appearance: He is normal weight. He is not toxic-appearing. HENT: Head: Normocephalic. Right Ear: External ear normal. Left Ear: External ear normal. Nose: Nose normal. Mouth/Throat: Mouth: Mucous membranes are moist. Eyes: General: Right eye: No discharge. Left eye: No discharge. Extraocular Movements: Extraocular movements intact. Pupils: Pupils are equal, round, and reactive to light. Cardiovascular: Rate and Rhythm: Normal rate and regular rhythm. Pulmonary: Effort: Pulmonary effort is normal. Breath sounds: Normal breath sounds. Abdominal: General: Abdomen is flat. There is no distension. Musculoskeletal: General: No swelling, deformity or signs of injury. Cervical back: Normal range of motion and neck supple. Skin: General: Skin is warm. Findings: No lesion. Neurological: Mental Status: He is alert. Psychiatric: Attention and Perception: He is inattentive. Mood and Affect: Affect is inappropriate. Cognition and Memory: Cognition is impaired. Memory is impaired. Judgment: Judgment is impulsive. REVIEW OF LABORATORY DATA Lab Results Component Value Date WBC 7.44 10/02/2024 HGB 10.4 (L) 10/02/2024 HCT 29.8 (L) 10/02/2024 MCV 90 10/02/2024 PLT 119 (L) 10/02/2024 Lab Results Component Value Date GLUCOSE 96 10/07/2024 CALCIUM 7.2 (L) 10/07/2024 NA 125 (L) 10/07/2024 K 4.1 10/07/2024 CO2 23 10/07/2024 CL 92 (L) 10/07/2024 BUN 41 (H) 10/07/2024 CREATININE 6.91 (H) 10/07/2024 Lab Results Component Value Date ALT 6 (L) 09/30/2024 AST 13 09/30/2024 ALKPHOS 42 09/30/2024 BILITOT 0.6 09/30/2024 Lab Results Component Value Date INR 1.0 12/07/2022 REVIEW OF IMAGING STUDIES XR Chest 1 View Narrative: CLINICAL INDICATION: discharge clearance TECHNIQUE: XR CHEST 1 VIEW COMPARISON: April 28, 2023 FINDINGS: Small pleural effusions versus pleural thickening, decreased since prior. Low lung volumes with bilateral atelectasis. No consolidation. No pneumothorax. Impression: Decreased pleural effusions. CRITICAL RESULT: No. COMMUNICATION: Per this written report. Drafted by Mundo Martins MD on 08/25/2023 12:16 PM Final report signed by Mundo Martins MD on 08/25/2023 12:18 PM REVIEW OF PROCEDURES Assessment and Plan: Aakash Fernandez is a [place] 64 y.o. male with past history of ESRD on HD MWF, T2DM, HTN, chronic HFrEF, PAD, HLD, IDD/dementia, depression/anxiety, insomnia, chronic HCV, DM foot ulcer c/b OM s/p bilateral transmetarsal amputation, and debility sent from his [place] [facility] to ED for medical evaluationafter refusing care. Declining functional status - Transferred to [place] [facility] a week ago and since arrival refusing HD, to eat, participate, or take medications - sent to ED for medical evaluation and need for higher level of assist/unable to care for self/non-compliance - afebrile, VSS, no acute complaints PLAN - PT/OT consult re: placement - legal guardian is his brother, Chris Fernandez, #[phone] (not answering calls since patient admission) Essential (primary) hypertension - increased carvedilol to 25 mg twice daily, nifedipine XL 60 mg daily (hold for BP <120/80 on dialysis days) At high risk for falls - wheelchair dependent, fall precautions ESRD (end stage renal disease) on dialysis ([facility]) - HD (MWF) - renally dose meds based on EGFR - strict I/O, daily weight Electrolyte and fluid disorder Hyponatremia - switch lokelma daily to 10 mg on non-dialysis days - follow-up RFP, trend Na Chronic kidney disease-mineral and bone disorder (CKD-MBD) - continue Renvela 800 mg TID with meals Anemia in chronic kidney disease (CODE) - Hgb stable, transfuse to keep >7 - ferritin, iron studies Type 2 diabetes mellitus with chronic kidney disease on chronic dialysis ([facility]) - last A1c 6.3 PLAN - ACHS regular SSI - hold home glargine 5U at bedtime while trend glucose/PO intake Dementia ([facility]) - Delirium precautions - Psych recommended to restart Asenapine 3.8 mg daily (not on formulary his caregiver will bring some of his patches) Mild intellectual disabilities - last neuropsych exam in 2023 found to not have capacity, brother is legal guardian - continue Depakote Sprinkle 250 mg twice daily Anxiety and depression - continue sertraline 75 mg daily Insomnia, unspecified - continue trazodone 100 mg at bedtime, melatonin 3 mg at bedtime Arterial insufficiency ([facility]) - continue aspirin 81 mg daily, clopidogrel 75 mg daily Mixed hyperlipidemia - continue atorvastatin 40 mg at bedtime 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 - continue statin, ASA, clopidogrel as above Gastroesophageal reflux disease without esophagitis - continue daily PPI Sensorineural hearing loss, bilateral - complicates all aspects of care Wears hearing aid in both ears - not present with patient on admission, have tried to call caregiver to bring them to hospital with no luck Chronic combined systolic (congestive) and diastolic (congestive) heart failure (CMS/HCC) - ECHO 06/27/2022: EF 45%, abnormal diastolic dysfunction - strict I/O, 2 L fluid restriction, cardiac/renal/CCHO2 diet Chronic hepatitis C without hepatic coma (CMS/HCC) - HCV RNA PCR not detected 07/13/2023 History of transmetatarsal amputation of foot (CMS/HCC) - chronic OM 2/2 DM foot ulcers s/p bilateral transmetarsal amputation Inpatient Checklist: Inpatient checklist: - Bowel regimen: ducolax - Code status: Full Code - Diet: PO - DVT prophylaxis: heparin - Disposition: placement (possible APS report filled today) CODE STATUS: Full Code EMERGENCY CONTACT: Extended Emergency Contact Information Primary Emergency Contact: Chris Fernandez Mobile Relation: Legal Guardian Preferred language: Kosovan Repair Operator needed? No Secondary Emergency Contact: Mariel Chavez Address: [address] [place] [address] Mobile Relation: [place] Developer Repair Operator needed? No Lamont Brumfield MD Division of Hospital Medicine [phone] or secure message [1] Current Facility-Administered Medications: acetaminophen (Tylenol) tablet 650 mg, 650 mg, Oral, q6h PRN, Lala Valdes B, MEDICAL ADMINISTRATIVE TECHNICIAN Asenapine 3.8mg/24 hr patch, 1 patch, Transdermal, q24h, Leda Gaitan MD, 1 patchat 10/08/24 1300 aspirin chewable tablet 81 mg, 81 mg, Oral, Daily, Lala Valdes B, MEDICAL ADMINISTRATIVE TECHNICIAN, 81 mg at 10/07/24 1307 atorvastatin (Lipitor) tablet 40 mg, 40 mg, Oral, Nightly, Lala Valdes B, MEDICAL ADMINISTRATIVE TECHNICIAN, 40 mg at 10/07/242027 bisacodyl (Dulcolax) EC tablet 10 mg, 10 mg, Oral, Daily PRN, Lala Valdes APRN cadexomer iodine (Iodosorb) 0.9 % gel, , Topical, Daily, Tana Wooten MD, Given at 10/04/24 1311 carvedilol (Coreg) tablet 25 mg, 25 mg, Oral, BID, Leda Gaitan MD, 25 mg at 10/07/242027 clopidogrel (Plavix) tablet 75 mg, 75 mg, Oral, Daily, Lala Valdes APRN, 75 mg at 10/07/24 1307 glucose (Glutose) 40 % oral gel 15-30 grams of glucose, 15-30 grams of glucose, Sublingual, q15 minPRN OR dextrose 10 % (D10W) bolus 125 mL, 125 mL, Intravenous, q15 min PRN OR dextrose 10 %(D10W) bolus 250 mL, 250 mL, Intravenous, q15 min PRN OR glucagon (human recombinant) injection1 mg, 1 mg, Intramuscular, q15 min PRN, Lala Valdes APRN divalproex sprinkle (Depakote Sprinkle) DR capsule 250 mg, 250 mg, Oral, BID, Lala Valdes APRN,250 mg at 10/07/242027 heparin (porcine) injection 5,000 Units, 5,000 Units, Subcutaneous, q8h RAFAT, Lala Valdes APRN, 5,000 Units at 10/08/24 1300 insulin lispro (Admelog) 100 units/mL injection - Correction - Standard Dose, 0- 5 Units, Subcutaneous, TID with meals, Lala Valdes APRN, 3 Units at 10/08/24 1218 insulin lispro (Admelog) injection - Correction - Nighttime Dose, 0-3 Units, Subcutaneous, Twice atnight, Lala Valdes APRN melatonin tablet 3 mg, 3 mg, Oral, Nightly, Lala Valdes APRN, 3 mg at 10/07/242027 NIFEdipine XL (Procardia XL) 24 hr tablet 60 mg, 60 mg, Oral, Daily, Leda Gaitan MD, 60 mg at 10/07/24 1306 polyethylene glycol (Miralax) packet 17 g, 17 g, Oral, Daily, Lucio, Gitana B, MEDICAL ADMINISTRATIVE TECHNICIAN, 17 g at 10/06/24 0828 sertraline (Zoloft) tablet 75 mg, 75 mg, Oral, Daily, Lucio, Gitana B, MEDICAL ADMINISTRATIVE TECHNICIAN, 75 mg at 10/07/24 1305 Insert peripheral IV, , , Once AND Saline lock IV, , , Once AND sodium chloride 0.9 % flush10 mL, 10 mL, Intravenous, q12h, 10 mL at 10/04/242031 AND sodium chloride 0.9 % flush 10 mL, 10 mL, Intravenous, PRN, Lucio, Gitana B, MEDICAL ADMINISTRATIVE TECHNICIAN traZODone (Desyrel) tablet 100 mg, 100 mg, Oral, Nightly, Lucio, Gitana B, MEDICAL ADMINISTRATIVE TECHNICIAN, 100 mg at 10/07/242027 Facility-Administered Medications Ordered in Other Encounters: lidocaine-EPINEPHrine (PF) (Xylocaine W/EPI) 1 %-1:928436 injection - Pyxis Override Pull, , , , lidocaine-EPINEPHrine (PF) (Xylocaine W/EPI) 1 %-1:049962 injection - Pyxis Override Pull, , , , [2] No Known Allergies * Care Plan - Cornell Hinojosa RN - 10/08/2024 3:28 PM EDT Problem: Wound Goal: Absence of Infection Signs and Symptoms Outcome: Ongoing, Progressing Intervention: Prevent or Manage Infection Flowsheets Taken 10/08/2024 1136 by Dorothea Rai RN Infection Management: aseptic technique maintained Taken 10/08/202451 by Nano Chau RN Fever Reduction/Comfort Measures: lightweight bedding Isolation Precautions: protective Goal: Skin Health and Integrity Outcome: Ongoing, Progressing Intervention: Optimize Skin Protection Flowsheets Taken 10/08/2024 1136 by Dorothea Rai RN Activity Management: patient refuses activity Pressure Reduction Techniques: frequent weight shift encouraged Head of Bed (HOB) Positioning: HOB lowered Taken 10/08/202451 by Nano Chau RN Pressure Reduction Devices: heel offloading device utilized Skin Protection: frequent weight shift encouraged Goal: Optimal Wound Healing Outcome: Ongoing, Progressing Intervention: Promote Wound Healing Flowsheets (Taken 10/08/2024 1527) Sleep/Rest Enhancement: consistent schedule promoted * Progress Notes - Cornell Hinojosa RN - 10/08/2024 3:24 PM EDT Images from the original note were not included. Wound Care Consult Visit Date: 10/08/2024 Patient Name: Aakash Fernandez Date of : 1960 Admit Date: 09/30/2024 Reason for Consult: IP Wound Orders (From admission, onward) Start Ordered 10/01/24222 Wound ostomy eval and treat Once Comments: Wound on the bottom of right foot Question: Instructions: Answer: Prior to sending evaluation & treat order, place wound/ostomy LDA, complete a wound/ostomy assessment, and consider taking a photograph to document. 10/01/24222 Wound Assessment: Wound 09/30/24 Diabetic Ulcer Heel Right (Active) Date First Assessed/Time First Assessed: 09/30/242199 Present on Original Admission: Yes Hand Hygiene Completed: Yes Primary Wound Type: Diabetic Ulcer Location: Heel Wound Location Orientation: Right Assessments 10/08/2024 2:06 PM Wound Image Wound Assessment [place];Granulation Margins Well-defined edges;Open Edges Sydni-Wound Assessment Clean;Dry;Calloused Shape Oval Wound Length (cm) 1 cm Wound Width (cm) 0.7 cm Wound Surface Area (cm^2) 0.55 cm^2 Wound Depth (cm) 0.5 cm Wound Volume (cm^3) 0.183 cm^3 Wound Healing % 12 Drainage Description Serous Drainage Amount Scant Treatments Soap and Water Dressing Status Dressing Changed State of Healing Early/partial granulation Non-staged Wound Description Full thickness Active Orders Date Order Priority Status Authorizing Provider 10/01/24 1413 Apply/Change Wound Dressing Right Heel Diabetic Ulcer Routine Active Rogers Wooten MD Wound Team Summary Assessment: Per assessment, patient's right plantar heel has improved a/e/b presence of pink granulation. Surrounding skin is dry and calloused. No obvious signs of infection present. Wound Team Plan: - Continue with current intervention. - Wound Care will continue to follow. Cornell Hinojosa RN 10/08/2024 3:24 PM * Progress Notes - Birdie Damico RN - 10/08/2024 3:08 PM EDT CM followed up on SNF referral and found [facility] is interested in accepting patient for LTC. Admissions liaison completed bedside evaluation today and plans to have business officediscuss finances with patients guardian, brother, Chris. CM will continue to follow. Birdie Damico RN * Progress Notes - Birdie Damico RN - 10/08/2024 2:05 PM EDT CM followed up on LTC pending Medicaid referral and found [facility] interested in accepting patient. Patient will need HD set up and discharge transportation arranged. CM will continue to follow. Birdie Damico RN * Care Plan - Dorothea Rai RN - 10/08/2024 11:41 AM EDT Problem: Adult Inpatient Plan of Care Goal: Plan of Care Review Outcome: Ongoing, Not Progressing Flowsheets Taken 10/08/2024 1136 by Dorothea Rai RN Progress: no change Outcome Evaluation: pt will verbalize understanding of care plan during this shift Taken 10/08/2024 0052 by Nano Chau RN Plan of Care Reviewed With: patient Goal: Patient-Specific Goal (Individualized) Outcome: Ongoing, Not Progressing Flowsheets (Taken 10/08/2024 0800) Patient/Family-Specific Goals (Include Timeframe): pt will comply with treatment team orders duringthis shift Individualized Care Needs: compliance Anxieties, Fears or Concerns: roderick Goal: Absence of Hospital-Acquired Illness or Injury Outcome: Ongoing, Not Progressing Intervention: Identify and Manage Fall Risk Flowsheets (Taken 10/08/2024 1136) Safety Promotion/Fall Prevention: fall prevention program maintained Intervention: Prevent Skin Injury Flowsheets (Taken 10/08/2024 113) Body Position: weight shifting Intervention: Prevent and Manage VTE (Venous Thromboembolism) Risk Flowsheets (Taken 10/08/2024 1136) VTE Prevention/Management: medication patient refused intervention education provided Intervention: Prevent Infection Flowsheets (Taken 10/08/2024 1136) Infection Prevention: environmental surveillance performed Goal: Optimal Comfort and Wellbeing Outcome: Ongoing, Not Progressing Intervention: Monitor Pain and Promote Comfort Flowsheets (Taken 10/08/2024 1136) Pain Management Interventions: medication offered but refused Intervention: Provide Person-Centered Care Flowsheets (Taken 10/08/2024 113) Trust Relationship/Rapport: care explained Goal: Readiness for Transition of Care Outcome: Ongoing, Not Progressing Intervention: Mutually Develop Transition Plan Flowsheets (Taken 10/08/2024 113) Equipment Currently Used at Home: walker, rolling Current Outpatient/Agency/Support Group: [facility] Current Discharge Risk: cognitively impaired lack of support system/caregiver physical impairment Concerns to be Addressed: cognitive/perceptual patient refuses services Readmission Within the Last 30 Days: lack of support Patient/Family Anticipates Transition to: long-term care facility Problem: Skin Injury Risk Increased Goal: Skin Health and Integrity Outcome: Ongoing, Not Progressing Intervention: Optimize Skin Protection Flowsheets (Taken 10/08/2024 113) Activity Management: patient refuses activity Pressure Reduction Techniques: frequent weight shift encouraged Head of Bed (HOB) Positioning: HOB lowered Intervention: Promote and Optimize Oral Intake Flowsheets (Taken 10/08/2024 113) Oral Nutrition Promotion: physical activity promoted Nutrition Interventions: food preferences provided Problem: Fall Injury Risk Goal: Absence of Fall and Fall-Related Injury Outcome: Ongoing, Not Progressing Intervention: Identify and Manage Contributors Flowsheets (Taken 10/08/2024 1136) Medication Review/Management: medications reviewed Self-Care Promotion: independence encouraged Intervention: Promote Injury-Free Environment Flowsheets (Taken 10/08/2024 113) Safety Promotion/Fall Prevention: fall prevention program maintained Problem: Wound Goal: Absence of Infection Signs and Symptoms Outcome: Ongoing, Not Progressing Intervention: Prevent or Manage Infection Flowsheets (Taken 10/08/2024 1136) Infection Management: aseptic technique maintained Goal: Skin Health and Integrity Outcome: Ongoing, Not Progressing Intervention: Optimize Skin Protection Flowsheets (Taken 10/08/2024 1136) Activity Management: patient refuses activity Pressure Reduction Techniques: frequent weight shift encouraged Head of Bed (HOB) Positioning: HOB lowered Goal: Optimal Wound Healing Outcome: Ongoing, Not Progressing Intervention: Promote Wound Healing Flowsheets (Taken 10/08/2024 1136) Sleep/Rest Enhancement: relaxation techniques promoted Problem: Hemodialysis Goal: Safe, Effective Therapy Delivery Outcome: Ongoing, Not Progressing Intervention: Optimize Device Care and Function Flowsheets (Taken 10/08/2024 1136) Medication Review/Management: medications reviewed Goal: Effective Tissue Perfusion Outcome: Ongoing, Not Progressing Intervention: Optimize Blood Flow Flowsheets (Taken 10/08/2024 113) Stabilization Measures: (pt refusing all interventions) other (see comments) Goal: Absence of Infection Signs and Symptoms Outcome: Ongoing, Not Progressing Intervention: Prevent or Manage Infection Flowsheets (Taken 10/08/2024 1136) Infection Management: aseptic technique maintained Infection Prevention: environmental surveillance performed Problem: Self-Care Deficit Goal: Improved Ability to Complete Activities of Daily Living Outcome: Ongoing, Not Progressing Problem: Infection Goal: Absence of Infection Signs and Symptoms Outcome: Ongoing, Not Progressing Intervention: Prevent or Manage Infection Flowsheets (Taken 10/08/2024 1136) Infection Management: aseptic technique maintained Problem: Diabetes Goal: Optimal Coping Outcome: Ongoing, Not Progressing Intervention: Support Wellbeing and Self-Management Success Flowsheets (Taken 10/08/2024 1136) Family/Support System Care: self-care encouraged Goal: Optimal Functional Ability Outcome: Ongoing, Not Progressing Intervention: Optimize Functional Ability Flowsheets (Taken 10/08/2024 1136) Activity Management: patient refuses activity Activity Assistance Provided: assistance, 2 people Self-Care Promotion: independence encouraged Goal: Blood Glucose Level Within Target Range Outcome: Ongoing, Not Progressing Intervention: Optimize Glycemic Control Flowsheets (Taken 10/08/2024 1136) Hyperglycemia Management: blood glucose monitored Goal: Minimize Hypoglycemia Risk Outcome: Ongoing, Not Progressing Intervention: Minimize and Manage Hypoglycemia Flowsheets (Taken 10/08/2024 1136) Hypoglycemia Management: blood glucose monitored Problem: Mobility Impairment Goal: Optimal Mobility Outcome: Ongoing, Not Progressing Intervention: Optimize Mobility Flowsheets (Taken 10/08/2024 1136) Activity Management: patient refuses activity * Nursing Note - Dorothea Rai RN - 10/08/2024 11:20 AM EDT 0800: Patient refusing all interventions including medication, assessment, and wound care. 1120: Attempted to give patient medication again and do assessment, patient refused to remove coverfrom face. Pretending to be asleep/snoring. * Care Plan - Nano Chau RN - 10/08/2024 12:56 AM EDT Problem: Adult Inpatient Plan of Care Goal: Plan of Care Review Outcome: Ongoing, Progressing Flowsheets (Taken 10/08/202451) Progress: improving Outcome Evaluation: Patient will be free from fall/injury within the shift Plan of Care Reviewed With: patient Goal: Patient-Specific Goal (Individualized) Outcome: Ongoing, Progressing Flowsheets (Taken 10/07/20241999) Patient/Family-Specific Goals (Include Timeframe): patient's blood pressure will be within the normal limits within the shift Individualized Care Needs: blood pressure Anxieties, Fears or Concerns: none Goal: Absence of Hospital-Acquired Illness or Injury Outcome: Ongoing, Progressing Intervention: Identify and Manage Fall Risk Flowsheets (Taken 10/07/20241999) Safety Promotion/Fall Prevention: activity supervised assistive device/personal items within reach clutter-free environment maintained fall prevention program maintained lighting adjusted mobility aid in reach Intervention: Prevent Skin Injury Flowsheets (Taken 10/08/202451) Body Position: weight shifting Skin Protection: incontinence pads utilized Intervention: Prevent and Manage VTE (Venous Thromboembolism) Risk Flowsheets (Taken 10/08/202451) VTE Prevention/Management: medication Intervention: Prevent Infection Flowsheets (Taken 10/08/202451) Infection Prevention: environmental surveillance performed hand hygiene promoted rest/sleep promoted Goal: Optimal Comfort and Wellbeing Outcome: Ongoing, Progressing Intervention: Monitor Pain and Promote Comfort Flowsheets (Taken 10/08/202451) Pain Management Interventions: relaxation techniques promoted Intervention: Provide Person-Centered Care Flowsheets (Taken 10/08/202451) Trust Relationship/Rapport: questions encouraged care explained Goal: Readiness for Transition of Care Outcome: Ongoing, Progressing Problem: Skin Injury Risk Increased Goal: Skin Health and Integrity Outcome: Ongoing, Progressing Intervention: Optimize Skin Protection Flowsheets (Taken 10/08/202451) Activity Management: activity adjusted per tolerance Pressure Reduction Techniques: heels elevated off bed Pressure Reduction Devices: heel offloading device utilized Skin Protection: incontinence pads utilized Head of Bed (HOB) Positioning: HOB at 30 degrees Intervention: Promote and Optimize Oral Intake Flowsheets (Taken 10/08/202451) Oral Nutrition Promotion: rest periods promoted Nutrition Interventions: food preferences provided Problem: Fall Injury Risk Goal: Absence of Fall and Fall-Related Injury Outcome: Ongoing, Progressing Intervention: Identify and Manage Contributors Flowsheets (Taken 10/08/202451) Medication Review/Management: medications reviewed Self-Care Promotion: independence encouraged BADL personal objects within reach Intervention: Promote Injury-Free Environment Flowsheets (Taken 10/07/20241999) Safety Promotion/Fall Prevention: activity supervised assistive device/personal items within reach clutter-free environment maintained fall prevention program maintained lighting adjusted mobility aid in reach Problem: Wound Goal: Absence of Infection Signs and Symptoms Outcome: Ongoing, Progressing Intervention: Prevent or Manage Infection Flowsheets (Taken 10/08/202451) Infection Management: aseptic technique maintained Fever Reduction/Comfort Measures: lightweight bedding Isolation Precautions: protective Goal: Skin Health and Integrity Outcome: Ongoing, Progressing Intervention: Optimize Skin Protection Flowsheets (Taken 10/08/202451) Activity Management: activity adjusted per tolerance Pressure Reduction Techniques: heels elevated off bed Pressure Reduction Devices: heel offloading device utilized Skin Protection: frequent weight shift encouraged Head of Bed (HOB) Positioning: HOB at 30 degrees Goal: Optimal Wound Healing Outcome: Ongoing, Progressing Intervention: Promote Wound Healing Flowsheets (Taken 10/08/202451) Sleep/Rest Enhancement: relaxation techniques promoted regular sleep/rest pattern promoted Problem: Hemodialysis Goal: Safe, Effective Therapy Delivery Outcome: Ongoing, Progressing Intervention: Optimize Device Care and Function Flowsheets (Taken 10/08/202451) Medication Review/Management: medications reviewed Goal: Effective Tissue Perfusion Outcome: Ongoing, Progressing Intervention: Optimize Blood Flow Flowsheets (Taken 10/08/202451) Stabilization Measures: legs elevated Goal: Absence of Infection Signs and Symptoms Outcome: Ongoing, Progressing Intervention: Prevent or Manage Infection Flowsheets (Taken 10/08/202451) Infection Management: aseptic technique maintained Fever Reduction/Comfort Measures: lightweight bedding Infection Prevention: environmental surveillance performed hand hygiene promoted rest/sleep promoted Problem: Self-Care Deficit Goal: Improved Ability to Complete Activities of Daily Living Outcome: Ongoing, Progressing Intervention: Promote Activity and Functional [place] Flowsheets (Taken 10/08/202451) Activity Assistance Provided: assistance, 2 people Self-Care Promotion: independence encouraged BADL personal objects within reach Problem: Infection Goal: Absence of Infection Signs and Symptoms Outcome: Ongoing, Progressing Intervention: Prevent or Manage Infection Flowsheets (Taken 10/08/202451) Infection Management: aseptic technique maintained Fever Reduction/Comfort Measures: lightweight bedding Isolation Precautions: protective Problem: Diabetes Goal: Optimal Coping Outcome: Ongoing, Progressing Intervention: Support Wellbeing and Self-Management Success Flowsheets (Taken 10/08/202451) Supportive Measures: active listening utilized relaxation techniques promoted Family/Support System Care: self-care encouraged Goal: Optimal Functional Ability Outcome: Ongoing, Progressing Intervention: Optimize Functional Ability Flowsheets (Taken 10/08/202451) Activity Management: activity adjusted per tolerance Activity Assistance Provided: assistance, 2 people Self-Care Promotion: independence encouraged BADL personal objects within reach Goal: Blood Glucose Level Within Target Range Outcome: Ongoing, Progressing Intervention: Optimize Glycemic Control Flowsheets (Taken 10/08/202451) Hyperglycemia Management: blood glucose monitored Goal: Minimize Hypoglycemia Risk Outcome: Ongoing, Progressing Intervention: Minimize and Manage Hypoglycemia Flowsheets (Taken 10/08/202451) Hypoglycemia Management: blood glucose monitored Problem: Mobility Impairment Goal: Optimal Mobility Outcome: Ongoing, Progressing Intervention: Optimize Mobility Flowsheets (Taken 10/08/202451) Activity Management: activity adjusted per tolerance Positioning/Transfer Devices: pillows * Progress Notes - Birdie Damico RN - 10/07/2024 3:36 PM EDT CM spoke with patients legal guardian and brother Chris Fernandez [phone]. Per Chris, he in not able to care for patient in his home and wants patient in a LTC facility. LTC pending Medicaid referral sent to [facility] as patient was discharged from there a few weeks ago. Referral alsosent to facilities 20 [address] radius of home address. CM will continue to follow. Birdie Damico RN * Care Plan - Marilee Zamora RN - 10/07/2024 3:11 PM EDT Problem: Adult Inpatient Plan of Care Goal: Plan of Care Review Outcome: Ongoing, Progressing Flowsheets Taken 10/07/2024 1501 by Marilee Zamora RN Progress: improving Outcome Evaluation: Patient will remain injury free within the shift. Taken 10/07/2024 0127 by Serene Boothe RN Plan of Care Reviewed With: patient Goal: Patient-Specific Goal (Individualized) Outcome: Ongoing, Progressing Flowsheets (Taken 10/07/2024 0800) Patient/Family-Specific Goals (Include Timeframe): patient will remain injury/fall free within ntheshift Individualized Care Needs: fall risk Anxieties, Fears or Concerns: none Goal: Absence of Hospital-Acquired Illness or Injury Outcome: Ongoing, Progressing Intervention: Prevent Infection Flowsheets (Taken 10/07/2024 1501) Infection Prevention: environmental surveillance performed hand hygiene promoted rest/sleep promoted Goal: Optimal Comfort and Wellbeing Outcome: Ongoing, Progressing Intervention: Provide Person-Centered Care Flowsheets (Taken 10/07/2024 1501) Trust Relationship/Rapport: care explained emotional support provided empathic listening provided thoughts/feelings acknowledged questions answered Goal: Readiness for Transition of Care Outcome: Ongoing, Progressing Intervention: Mutually Develop Transition Plan Flowsheets (Taken 10/07/2024 1501) Equipment Needed After Discharge: wheelchair, manual Equipment Currently Used at Home: walker, rolling Anticipated Changes Related to Illness: inability to care for self Current Discharge Risk: cognitively impaired Concerns to be Addressed: cognitive/perceptual decision-making Readmission Within the Last 30 Days: lack of support Problem: Skin Injury Risk Increased Goal: Skin Health and Integrity Outcome: Ongoing, Progressing Intervention: Promote and Optimize Oral Intake Flowsheets (Taken 10/07/2024 1501) Oral Nutrition Promotion: rest periods promoted Nutrition Interventions: food preferences provided meal set-up provided Problem: Fall Injury Risk Goal: Absence of Fall and Fall-Related Injury Outcome: Ongoing, Progressing Intervention: Promote Injury-Free Environment Flowsheets (Taken 10/07/2024 1501) Safety Promotion/Fall Prevention: clutter-free environment maintained safety round/check completed activity supervised Problem: Wound Goal: Absence of Infection Signs and Symptoms Outcome: Ongoing, Progressing Intervention: Prevent or Manage Infection Flowsheets (Taken 10/07/2024 1501) Infection Management: aseptic technique maintained Fever Reduction/Comfort Measures: lightweight bedding lightweight clothing Isolation Precautions: protective Goal: Skin Health and Integrity Outcome: Ongoing, Progressing Intervention: Optimize Skin Protection Flowsheets (Taken 10/07/2024 1501) Activity Management: activity adjusted per tolerance Pressure Reduction Techniques: heels elevated off bed Pressure Reduction Devices: heel offloading device utilized positioning supports utilized Skin Protection: incontinence pads utilized weight shift assistance provided Goal: Optimal Wound Healing Outcome: Ongoing, Progressing Intervention: Promote Wound Healing Flowsheets (Taken 10/05/2024 1024 by Arturo Salazar RN) Sleep/Rest Enhancement: regular sleep/rest pattern promoted Note: Wound dressing done with normal saline wash, Iodosorb, gauze and kerlix. Problem: Hemodialysis Goal: Safe, Effective Therapy Delivery Outcome: Ongoing, Progressing Intervention: Optimize Device Care and Function Flowsheets (Taken 10/07/2024 1501) Medication Review/Management: medications reviewed Goal: Effective Tissue Perfusion Outcome: Ongoing, Progressing Intervention: Optimize Blood Flow Flowsheets (Taken 10/07/2024 1501) Stabilization Measures: legs elevated Goal: Absence of Infection Signs and Symptoms Outcome: Ongoing, Progressing Intervention: Prevent or Manage Infection Flowsheets (Taken 10/07/2024 1501) Infection Management: aseptic technique maintained Fever Reduction/Comfort Measures: lightweight bedding lightweight clothing Infection Prevention: environmental surveillance performed hand hygiene promoted rest/sleep promoted Problem: Self-Care Deficit Goal: Improved Ability to Complete Activities of Daily Living Outcome: Ongoing, Progressing Intervention: Promote Activity and Functional [place] Flowsheets (Taken 10/07/2024 1501) Activity Assistance Provided: assistance, 2 people education provided Self-Care Promotion: independence encouraged Problem: Infection Goal: Absence of Infection Signs and Symptoms Outcome: Ongoing, Progressing Intervention: Prevent or Manage Infection Flowsheets (Taken 10/07/2024 1501) Infection Management: aseptic technique maintained Fever Reduction/Comfort Measures: lightweight bedding lightweight clothing Isolation Precautions: protective Problem: Diabetes Goal: Optimal Coping Outcome: Ongoing, Progressing Intervention: Support Wellbeing and Self-Management [place] Flowsheets (Taken 10/07/2024 1501) Supportive Measures: active listening utilized relaxation techniques promoted Family/Support System Care: self-care encouraged Goal: Optimal Functional Ability Outcome: Ongoing, Progressing Intervention: Optimize Functional Ability Flowsheets (Taken 10/07/2024 1501) Activity Management: activity adjusted per tolerance Activity Assistance Provided: assistance, 2 people education provided Self-Care Promotion: independence encouraged Goal: Blood Glucose Level Within Target Range Outcome: Ongoing, Progressing Intervention: Optimize Glycemic Control Flowsheets (Taken 10/07/2024 1501) Hyperglycemia Management: blood glucose monitored Goal: Minimize Hypoglycemia Risk Outcome: Ongoing, Progressing Intervention: Minimize and Manage Hypoglycemia Flowsheets (Taken 10/07/2024 1501) Hypoglycemia Management: blood glucose monitored * Progress Notes - Donny Tovar MD - 10/07/2024 11:24 AM EDT Hemodialysis Procedure Note Chief Compliant/reason for consult: ESRD on dialysis HPI: No acute events overnight. Seen and examined on dialysis. Sleeping comfortably, tolerating well. Physical Exam: Visit Vitals BP (!) 167/71 Pulse 78 Temp (!) 36.1 ??C (97 ??F) (Oral) Resp 18 Ht 1.778 m (5' 10 ) Wt 84.4 kg (186 lb 1.1 oz) SpO2 96% BMI 26.70 kg/m?? Smoking Status Never BSA 2.04 m?? GA: NAD, on dialysis Resp: Normal respiratory effort CV: Trace BLE edema Dialysis Access: AVF RUE accessed for dialysis Intake/Output Summary (Last 24 hours) at 10/07/2024 1124 Last data filed at 10/06/2024 1202 Gross per 24 hour Intake 680 ml Output -- Net 680 ml Current Medications: reviewed Current Scheduled Medications[1] Current Continuous Medications[2] Current PRN Medications[3] Laboratory Results Results from last 7 days Lab Units 10/02/24 0536 09/30/24 1650 WBC 10*3/uL 7.44 8.92 HEMOGLOBIN g/dL 10.4* 10.4* HEMATOCRIT % 29.8* 29.8* MCV fL 90 91 PLATELETS 10*3/uL 119* 121* Results from last 7 days Lab Units 10/07/24 0248 10/06/24 0305 SODIUM mmol/L 125* 125* POTASSIUM mmol/L 4.1 3.8 CHLORIDE mmol/L 92* 92* CO2 mmol/L 23 23 BUN mg/dL 41* 30* CREATININE mg/dL 6.91* 5.95* CALCIUM mg/dL 7.2* 7.5* PHOSPHORUS mg/dL 4.2 3.5 MAGNESIUM mg/dL 1.6* 1.8* Assessment: - ESRD on Hemodialysis - Disorders of fluid, electrolytes and acid-base balance - Hypervolemia in renal insufficiency - Renal osteodystrophy - Anemia in ESRD - Intellectual Delay Plan: - HD today. Continue MWF schedule while inpatient. - Will ultrafiltrate as tolerated on dialysis; UF goal increased for future treatments - Will adjust dialysate composition to help maintaining normal electrolytes and acid base balance - Will follow for ANGELITA requirements; Hgb at goal - Will follow for Phos binder requirements - Daily weight - Renal diet - Renally dose medications for HD - I saw and evaluated the patient during dialysis treatment. Currently patient is tolerating treatment with stable hemodynamics. Dialysis flowsheet, dialysis bath and machine settings reviewed. No issues with current flow settings and access flows are acceptable. BFR 300-400 ml/min, DFR 600-800 ml/min, 3.5K / 2.5Ca / 32 bicarb. UF 1L as tolerated. Please see dialysis flowsheet for treatment's details. Dialysis Medications sodium citrate anticoagulant 4 % flush 6 mL 6 mL, Intracatheter, Every visit, As needed alteplase (Cathflo Activase) injection 4 mg 4 mg, Intracatheter, Every visit, As needed Dialysis Treatment Hemodialysis inpatient 3 hr (180 min); Revaclear 400; 35.5; 3.5; 2.5; 136; 32; 1; Remove UF as tolerated; 300-400; 2X Blood Flow Rate; Adult; AV Fistula; 15 ga Once Every visit, Once Duration of Treatment: 3 hr (180 min) Dialyzer: Revaclear 400 Dialysate Temperature (Centigrade): 35.5 Dialysate: Potassium (mEq/L): 3.5 Dialysate: Calcium (mEq/L): 2.5 Dialysate: Sodium (mEq/L): 136 Dialysate: Bicarb (mEq/L): 32 Net fluid removal (Ultrafiltration) (L): 1 As tolerated: Remove UF as tolerated BFR (mL/min): 300-400 Dialysate Flow Rate (mL/min): 2X Blood Flow Rate Tubing: Adult Access Site: AV Fistula Needle Size: 15 ga Nursing general assessments and interventions Every visit, Once Labs Hepatitis B Surface Antibody, Quantitative Every 28 days, Once Release to patient in [facility]: Immediate Hepatitis panel, acute Every 28 days, Once Release to patient in [facility]: Immediate Zechariah Tovar MD Nephrology [1] Asenapine, 1 patch, Transdermal, q24h aspirin, 81 mg, Oral, Daily atorvastatin, 40 mg, Oral, Nightly cadexomer iodine, , Topical, Daily carvedilol, 12.5 mg, Oral, BID clopidogrel, 75 mg, Oral, Daily divalproex sprinkle, 250 mg, Oral, BID heparin (porcine), 5,000 Units, Subcutaneous, q8h RAFAT insulin lispro, 0-5 Units, Subcutaneous, TID with meals insulin lispro, 0-3 Units, Subcutaneous, Twice at night melatonin, 3 mg, Oral, Nightly NIFEdipine XL, 60 mg, Oral, Daily polyethylene glycol, 17 g, Oral, Daily sertraline, 75 mg, Oral, Daily sodium chloride, 10 mL, Intravenous, q12h traZODone, 100 mg, Oral, Nightly [2] [3] PRN medications: acetaminophen, alteplase, bisacodyl, glucose OR dextrose 10 % OR dextrose 10 % OR glucagon (human recombinant), Insert peripheral IV AND Saline lock IV AND sodium chloride AND sodium chloride, sodium citrate anticoagulant * Consults - Lexi Hernandez RD - 10/07/2024 10:40 AM EDT Adult Nutrition Evaluation Note Mundo Fernandez 64 y.o. male CSN: [id number] Room/Bed 710/710A Nutrition evaluation type: assessment Reason for evaluation: [facility] course: Pt is a 64 y.o. male who presented to the ED on 09/30 from his [place] [facility] for medical evaluation after refusing care. Past medical/ surgical history: Past Medical History[1] Surgical History[2] Social history: reviewed Additional comments: 10/07: Pt unavailable at time of visit, bedside care in progress. Tolerating PO with excellent intakes per nursing documentation. Vitals and Basic Assessment: BP: (!) 186/78 Temp: 36.4 ??C (97.6 ??F) Oxygen Therapy: None (Room air) Kerrie Coma Scale Score: 14 Sav Scale Score: 17 Most Recent BM Date: 10/03/24 Edema: Generalized Skin: diabetic ulcer right heel (09/30) Allergies: NKFA per EMR Medications: Current Scheduled Medications[3] Current PRN Medications[4] Meds were reviewed: Yes Labs: Lab Results Component Value Date GLUCOSE 96 10/07/2024 CALCIUM 7.2 (L) 10/07/2024 NA 125 (L) 10/07/2024 K 4.1 10/07/2024 CO2 23 10/07/2024 CL 92 (L) 10/07/2024 BUN 41 (H) 10/07/2024 CREATININE 6.91 (H) 10/07/2024 PHOS 4.2 10/07/2024 MG 1.6 (L) 10/07/2024 HGBA1C 6.3 (H) 09/30/2024 POCT Glu: 85-152 mg/dL (10/01-10/07) Lab Results Component Value Date ALBUMIN 3.1 (L) 10/07/2024 Albumin is a negative acute-phase reactant, therefore it is not a good indicator of nutrition status. Anthropometrics: Height: 177.8 cm (5' 10 ) Weight: 84.4 kg (186 lb 1.1 oz) BMI (Calculated): 26.7 Weight Evaluation: Overweight (BMI 25-29.9) Round Top Body Weight (kg): 75.5 Percent Round Top Body Weight: 112 Wt Readings from Last 10 Encounters: 10/07/24 84.4 kg (186 lb 1.1 oz) 08/18/23 68.1 kg (150 lb 2.1 oz) 04/14/23 63.4 kg (139 lb 12.4 oz) 12/31/22 67 kg (147 lb 11.3 oz) 11/29/22 71.2 kg (157 lb) 10/29/22 71.2 kg (157 lb) 09/13/22 68.9 kg (152 lb) 09/09/22 68.6 kg (151 lb 3.8 oz) 08/05/22 75 kg (165 lb 5.5 oz) 07/27/22 72.1 kg (159 lb) Estimated Needs: Kcal/ K-30 Kcal Provided: 5443-0108 Kcal Needs Based On: Current weight (84.4 kg) Gm Protein/ Kg : 1.2-1.5 Protein Provided: 101-127 Protein Needs Based On: Current weight (84.4 kg) Fluid Provided: 1 ml/kcal or per MD team Metabolic Cart Study Results: Current Nutrition Intake: Diet Supplements: None Diet Order: Adult Diet Diet Texture: Regular Adult Carbohydrate Restriction: Consistent CHO 2 (8261-1843 Preet, 80 g/meal) Adult Sodium Restriction: 2,000 mg Na Fat Restriction: Cardiac Electrolyte Restriction: Renal Adult Fluid Restriction / 24 hr: 2000 ml fluid Percent Meals Eaten (%): 86% avg x 15 meals (10/02-10/07) Diet Experience and Nutrition History: Diet Education Provided: Will monitor Pertinent home medications: Medications Ordered Prior to Encounter[5] Confucianist needs: Nutrition Focused Physical Exam: Unable to Complete Exam: Patient unable to participate (bedside care in progress) Physical exam performed on (date): pending Assessment of Malnutrition: Nutrition Problem: Increased nutrient needs (kcal/protein) related to increased metabolic demands as evidenced by ESRDon HD. Status of Nutrition Diagnosis: New Nutrition Interventions and Recommendations: Continue current diet as tolerated. Adjusting to CC3 modification to best meet nutrient needs. Monitor need for ONS as appropriate. Obtain weight 2-3x weekly after HD sessions for most accurate dry weight. Replace elytes per protocol as appropriate. Nursing: please document all PO intakes in the I/Os section of Flowsheets daily. Nutrition Monitoring and Goals: Pt will tolerate >75% meal intakes. Pt will maintain dry body weight this admission. Will monitor PO intake, weight, skin, labs, nutrition status per acuity. Acuity Level: 1 Lexi Hernandez, AYAAN, MS, LD [1] Past Medical History: Diagnosis Date Alcohol use disorder in remission Anemia in chronic kidney disease (CODE) 04/30/2023 Anxiety Arterial insufficiency ([facility]) 05/18/2021 Benign prostatic hyperplasia Central line-associated bloodstream infection 06/29/2022 Chronic combined systolic (congestive) and diastolic (congestive) heart failure ([facility]) 02/18/2022 Chronic hepatitis C without hepatic coma ([facility]) 06/03/2014 Dementia ([facility]) 02/18/2022 Depression Diabetic peripheral neuropathy ([facility]) ESRD (end stage renal disease) on dialysis ([facility]) 09/16/2021 Essential hypertension 11/23/2011 GERD (gastroesophageal reflux disease) Hemorrhoids Hyperlipidemia Hypoparathyroidism 11/23/2011 Infection of AV graft for dialysis ([facility]) 02/18/2022 Added automatically from request for surgery [id number] Insomnia, unspecified 12/22/2021 Methicillin resistant Staphylococcus aureus infection, unspecified site Mild intellectual disabilities 08/30/2019 MSSA bacteremia 03/04/2022 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 06/07/2024 Sensorineural hearing loss, bilateral 01/11/2018 Type 2 diabetes mellitus [2] Past Surgical History: Procedure Laterality Date CATARACT EXTRACTION W/ INTRAOCULAR LENS IMPLANT N/A Cataract Phacoemulsification With Intraocular Lens Implantation from [facility] EXPLORATORY LAPAROTOMY stab incision abdomen EYE SURGERY N/A Eye Surgery from [facility] FOOT SURGERY N/A Surgery Foot Amputation Metatarsal And Toe from [facility] OTHER SURGICAL HISTORY Right Tympanic Membrane Repair - Right Ear from [facility] OTHER SURGICAL HISTORY Right Surgery Right Foot Amputation MTP from [facility] [3] Asenapine, 1 patch, Transdermal, q24h aspirin, 81 mg, Oral, Daily atorvastatin, 40 mg, Oral, Nightly cadexomer iodine, , Topical, Daily carvedilol, 12.5 mg, Oral, BID clopidogrel, 75 mg, Oral, Daily divalproex sprinkle, 250 mg, Oral, BID heparin (porcine), 5,000 Units, Subcutaneous, q8h RAFAT insulin lispro, 0-5 Units, Subcutaneous, TID with meals insulin lispro, 0-3 Units, Subcutaneous, Twice at night melatonin, 3 mg, Oral, Nightly NIFEdipine XL, 60 mg, Oral, Daily polyethylene glycol, 17 g, Oral, Daily sertraline, 75 mg, Oral, Daily Insert peripheral IV, , , Once AND Saline lock IV, , , Once AND sodium chloride, 10 mL, Intravenous, q12h AND sodium chloride, 10 mL, Intravenous, PRN traZODone, 100 mg, Oral, Nightly [4] PRN medications: acetaminophen, bisacodyl, glucose OR dextrose 10 % OR dextrose 10 % OR glucagon (human recombinant), Insert peripheral IV AND Saline lock IV AND sodium chloride AND sodium chloride [5] Current Facility-Administered Medications on File Prior to Encounter Medication Dose Route Frequency Provider Last Rate Last Admin lidocaine-EPINEPHrine (PF) (Xylocaine W/EPI) 1 %-1:889645 injection - Pyxis Override Pull lidocaine-EPINEPHrine (PF) (Xylocaine W/EPI) 1 %-1:490671 injection - Pyxis Override Pull Current Outpatient Medications on File Prior to Encounter Medication Sig Dispense Refill Asenapine (Secuado) 3.8 MG/24HR patch [address] 1 patch on the skin daily. ASPIRIN 81 MG chewable tablet Chew 1 tablet daily. atorvastatin (Lipitor) 40 MG tablet Take 1 tablet by mouth nightly. B complex-vitamin C-folic acid (Nephro-Salvador) 0.8 MG tablet Take 1 tablet by mouth daily. Calcium Carbonate (CALCIUM 600 PO) Take 2 tablets by mouth nightly. carvedilol (Coreg) 12.5 MG tablet Take 1 tablet by mouth daily. clopidogrel (Plavix) 75 MG tablet Take 1 tablet by mouth daily. divalproex sprinkle (Depakote Sprinkles) [address] capsule Take 2 capsules by mouth 2 times a day. insulin glargine (Lantus) 100 UNIT/ML injection vial Inject 5 Units under the skin nightly. insulin lispro (Admelog, HumaLOG) 100 UNIT/ML injection pen Inject 2 Units under the skin 3 times aday with meals. Injected per sliding scale melatonin tablet Take 3 tablets by mouth at night as needed for sleep. NIFEdipine XL (Procardia XL) 30 MG 24 hr tablet Take 3 tablets (90 mg) by mouth 1 (one) time each day at the same time. Do not crush, chew, or split. 90 tablet 0 sertraline (Zoloft) 25 MG tablet Take 1 tablet by mouth daily. Take with 50mg tablet for total daily dose of 75mg. sertraline (Zoloft) 50 MG tablet Take 1 tablet by mouth daily. Take with 25mg tablet for total daily dose of 75mg. sevelamer carbonate (Renvela) 800 MG tablet Take 1 tablet by mouth 3 times a day with meals. Swallow tablet whole; do not crush, break, or chew. sodium zirconium cyclosilicate (Lokelma) 10 g packet Take 10 g by mouth daily. traZODone (Desyrel) 100 MG tablet Take 1 tablet (100 mg) by mouth every night. 30 tablet 2 [DISCONTINUED] atorvastatin (Lipitor) 80 MG tablet Take 1 tablet by mouth daily. [DISCONTINUED] calcitriol (Rocaltrol) 0.25 MCG capsule Take 1 capsule (0.25 mcg total) by mouth 1 (one) time each day. (Patient not taking: Reported on 04/17/2023) 30 capsule 3 [DISCONTINUED] calcium acetate (Phoslo) 667 MG capsule Take 1 capsule (667 mg) by mouth 3 (three) times a day with meals. [DISCONTINUED] carvedilol (Coreg) 25 MG tablet Take 1 tablet (25 mg) by mouth 1 (one) time each day. 30 tablet 0 [DISCONTINUED] cholecalciferol (Vitamin D-3) 50 MCG (2000 UT) capsule Take 1 capsule (2,000 Units total) by mouth 1 (one) time each day. 30 capsule 3 [DISCONTINUED] Epoetin Rj-epbx (Retacrit) 06874 UNIT/ML injection Inject 13,400 Units/kg under the skin 3 (three) times a week. [DISCONTINUED] iron sucrose (Venofer) 20 MG/ML injection Infuse 5 mL (100 mg) into a venous catheter 1 (one) time in dialysis. [DISCONTINUED] pantoprazole (Protonix) 40 MG EC tablet Take 1 tablet (40 mg) by mouth 1 (one) time each day before breakfast. Do not crush, chew, or split. [DISCONTINUED] QUEtiapine (SEROquel) 25 MG tablet Take 1 tablet (25 mg) by mouth 2 (two) times a day. [DISCONTINUED] sertraline (Zoloft) 100 MG tablet Take 1 tablet (100 mg) by mouth 1 (one) time each day. * Progress Notes - Leda Gaitan MD - 10/07/2024 8:25 AM EDT Images from the original note were not included. [facility] Medicine Inpatient Progress Note Patient: Mundo Fernandez PCP: Leonard Botello MD Date: 10/07/2024 Subjective Patient seen in dialysis today, after dialysis hypertensive but had not had his home meds. Still nonews from his POA Review of Systems Unable to perform ROS: Psychiatric disorder Objective INPATENT MEDICATIONS Current Medications[1] ALLERGIES Allergies[2] 24 HOUR VITALS Temp: [36.1 ??C (97 ??F)-36.8 ??C (98.2 ??F)] 36.1 ??C (97 ??F) Heart Rate: [69-83] 69 BP: (165-189)/(73-93) 179/79 INTAKE/OUTPUT Intake/Output Summary (Last 24 hours) at 10/07/2024 0825 Last data filed at 10/06/2024 1202 Gross per 24 hour Intake 680 ml Output -- Net 680 ml Physical Exam Constitutional: General: He is not in acute distress. Appearance: He is normal weight. He is not toxic-appearing. HENT: Head: Normocephalic. Right Ear: External ear normal. Left Ear: External ear normal. Nose: Nose normal. Mouth/Throat: Mouth: Mucous membranes are moist. Eyes: General: Right eye: No discharge. Left eye: No discharge. Extraocular Movements: Extraocular movements intact. Pupils: Pupils are equal, round, and reactive to light. Cardiovascular: Rate and Rhythm: Normal rate and regular rhythm. Pulmonary: Effort: Pulmonary effort is normal. Breath sounds: Normal breath sounds. Abdominal: General: Abdomen is flat. There is no distension. Musculoskeletal: General: No swelling, deformity or signs of injury. Cervical back: Normal range of motion and neck supple. Skin: General: Skin is warm. Findings: No lesion. Neurological: Mental Status: He is alert. Psychiatric: Attention and Perception: He is inattentive. Mood and Affect: Affect is inappropriate. Cognition and Memory: Cognition is impaired. Memory is impaired. Judgment: Judgment is impulsive. REVIEW OF LABORATORY DATA Lab Results Component Value Date WBC 7.44 10/02/2024 HGB 10.4 (L) 10/02/2024 HCT 29.8 (L) 10/02/2024 MCV 90 10/02/2024 PLT 119 (L) 10/02/2024 Lab Results Component Value Date GLUCOSE 96 10/07/2024 CALCIUM 7.2 (L) 10/07/2024 NA 125 (L) 10/07/2024 K 4.1 10/07/2024 CO2 23 10/07/2024 CL 92 (L) 10/07/2024 BUN 41 (H) 10/07/2024 CREATININE 6.91 (H) 10/07/2024 Lab Results Component Value Date ALT 6 (L) 09/30/2024 AST 13 09/30/2024 ALKPHOS 42 09/30/2024 BILITOT 0.6 09/30/2024 Lab Results Component Value Date INR 1.0 12/07/2022 REVIEW OF IMAGING STUDIES XR Chest 1 View Narrative: CLINICAL INDICATION: discharge clearance TECHNIQUE: XR CHEST 1 VIEW COMPARISON: April 28, 2023 FINDINGS: Small pleural effusions versus pleural thickening, decreased since prior. Low lung volumes with bilateral atelectasis. No consolidation. No pneumothorax. Impression: Decreased pleural effusions. CRITICAL RESULT: No. COMMUNICATION: Per this written report. Drafted by Mundo Martins MD on 08/25/2023 12:16 PM Final report signed by Mundo Martins MD on 08/25/2023 12:18 PM REVIEW OF PROCEDURES Assessment and Plan: Aakash Fernandez is a [place] 64 y.o. male with past history of ESRD on HD MWF, T2DM, HTN, chronic HFrEF, PAD, HLD, IDD/dementia, depression/anxiety, insomnia, chronic HCV, DM foot ulcer c/b OM s/p bilateral transmetarsal amputation, and debility sent from [place] [facility] [place] to ED for medical evaluationafter refusing care. Declining functional status - Transferred to [place] [facility] [place] a week ago and since arrival refusing HD, to eat, participate, or take medications - sent to ED for medical evaluation and need for higher level of assist/unable to care for self/non-compliance - afebrile, VSS, no acute complaints PLAN - PT/OT consult re: placement - legal guardian is his brother, Chris Fernandez, #[phone] (not answering calls since patient admission) Essential (primary) hypertension - increased carvedilol to 25 mg twice daily, nifedipine XL 60 mg daily (hold for BP <120/80 on dialysis days) At high risk for falls - wheelchair dependent, fall precautions ESRD (end stage renal disease) on dialysis ([facility]) - HD (MWF) - renally dose meds based on EGFR - strict I/O, daily weight Electrolyte and fluid disorder Hyponatremia - switch lokelma daily to 10 mg on non-dialysis days - follow-up RFP, trend Na Chronic kidney disease-mineral and bone disorder (CKD-MBD) - continue Renvela 800 mg TID with meals Anemia in chronic kidney disease (CODE) - Hgb stable, transfuse to keep >7 - ferritin, iron studies Type 2 diabetes mellitus with chronic kidney disease on chronic dialysis ([facility]) - last A1c 6.3 PLAN - ACHS regular SSI - hold home glargine 5U at bedtime while trend glucose/PO intake Dementia ([facility]) - Delirium precautions - Psych recommended to restart Asenapine 3.8 mg daily (not on formulary his caregiver will bring some of his patches) Mild intellectual disabilities - last neuropsych exam in 2023 found to not have capacity, brother is legal guardian - continue Depakote Sprinkle 250 mg twice daily Anxiety and depression - continue sertraline 75 mg daily Insomnia, unspecified - continue trazodone 100 mg at bedtime, melatonin 3 mg at bedtime Arterial insufficiency ([facility]) - continue aspirin 81 mg daily, clopidogrel 75 mg daily Mixed hyperlipidemia - continue atorvastatin 40 mg at bedtime 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 - continue statin, ASA, clopidogrel as above Gastroesophageal reflux disease without esophagitis - continue daily PPI Sensorineural hearing loss, bilateral - complicates all aspects of care Wears hearing aid in both ears - not present with patient on admission, have tried to call caregiver to bring them to hospital with no luck Chronic combined systolic (congestive) and diastolic (congestive) heart failure ([facility]) - ECHO 06/27/2022: EF 45%, abnormal diastolic dysfunction - strict I/O, 2 L fluid restriction, cardiac/renal/CCHO2 diet Chronic hepatitis C without hepatic coma (CMS/HCC) - HCV RNA PCR not detected 07/13/2023 History of transmetatarsal amputation of foot (CMS/HCC) - chronic OM 2/2 DM foot ulcers s/p bilateral transmetarsal amputation Inpatient Checklist: Inpatient checklist: - Bowel regimen: ducolax - Code status: Full Code - Diet: PO - DVT prophylaxis: heparin - Disposition: placement (possible APS report filled today) CODE STATUS: Full Code EMERGENCY CONTACT: Extended Emergency Contact Information Primary Emergency Contact: Chris Fernandez Mobile Relation: Legal Guardian Preferred language: Kosovan Repair Operator needed? No Secondary Emergency Contact: Mariel Chavez Address: [address] [place] [address] Mobile Relation: [employer] Developer Repair Operator needed? No Leda Kelley MD Double Surface Operator Internal Medicine Pediatrics Certified Strategy Execution Consultant Pager [phone] [1] Current Facility-Administered Medications: acetaminophen (Tylenol) tablet 650 mg, 650 mg, Oral, q6h PRN, Laith Valdesana B, MEDICAL ADMINISTRATIVE TECHNICIAN Asenapine 3.8mg/24 hr patch, 1 patch, Transdermal, q24h, Leda Gaitan MD, 1 patchat 10/06/24 1324 aspirin chewable tablet 81 mg, 81 mg, Oral, Daily, Laith Valdesana B, MEDICAL ADMINISTRATIVE TECHNICIAN, 81 mg at 10/06/24 0828 atorvastatin (Lipitor) tablet 40 mg, 40 mg, Oral, Nightly, Laith Valdesana B, MEDICAL ADMINISTRATIVE TECHNICIAN, 40 mg at 10/06/24 2030 bisacodyl (Dulcolax) EC tablet 10 mg, 10 mg, Oral, Daily PRN, Laith Valdesana B, MEDICAL ADMINISTRATIVE TECHNICIAN cadexomer iodine (Iodosorb) 0.9 % gel, , Topical, Daily, Tana Wooten MD, Given at 10/04/24 1311 carvedilol (Coreg) tablet 12.5 mg, 12.5 mg, Oral, BID, Lala Valdes B, MEDICAL ADMINISTRATIVE TECHNICIAN, 12.5 mg at 10/06/24 2030 clopidogrel (Plavix) tablet 75 mg, 75 mg, Oral, Daily, Lala Valdes, MEDICAL ADMINISTRATIVE TECHNICIAN, 75 mg at 10/06/24827 glucose (Glutose) 40 % oral gel 15-30 grams of glucose, 15-30 grams of glucose, Sublingual, q15 minPRN OR dextrose 10 % (D10W) bolus 125 mL, 125 mL, Intravenous, q15 min PRN OR dextrose 10 %(D10W) bolus 250 mL, 250 mL, Intravenous, q15 min PRN OR glucagon (human recombinant) injection1 mg, 1 mg, Intramuscular, q15 min PRN, Lala Valdes B, MEDICAL ADMINISTRATIVE TECHNICIAN divalproex sprinkle (Depakote Sprinkle) DR capsule 250 mg, 250 mg, Oral, BID, Lala Valdes, MEDICAL ADMINISTRATIVE TECHNICIAN,250 mg at 10/06/242029 heparin (porcine) injection 5,000 Units, 5,000 Units, Subcutaneous, q8h RAFAT, Lala Valdes MEDICAL ADMINISTRATIVE TECHNICIAN, 5,000 Units at 10/07/24 05 insulin lispro (Admelog) 100 units/mL injection - Correction - Standard Dose, 0- 5 Units, Subcutaneous, TID with meals, Lala Valdes, MEDICAL ADMINISTRATIVE TECHNICIAN, 1 Units at 10/02/24 170 insulin lispro (Admelog) injection - Correction - Nighttime Dose, 0-3 Units, Subcutaneous, Twice atnight, Lala Valdes B, MEDICAL ADMINISTRATIVE TECHNICIAN melatonin tablet 3 mg, 3 mg, Oral, Nightly, Lala Valdes, MEDICAL ADMINISTRATIVE TECHNICIAN, 3 mg at 10/06/242029 NIFEdipine XL (Procardia XL) 24 hr tablet 60 mg, 60 mg, Oral, Daily, Leda Gaitan MD polyethylene glycol (Miralax) packet 17 g, 17 g, Oral, Daily, Lala Valdes B, MEDICAL ADMINISTRATIVE TECHNICIAN, 17 g at 10/06/24827 sertraline (Zoloft) tablet 75 mg, 75 mg, Oral, Daily, Lala Valdes, MEDICAL ADMINISTRATIVE TECHNICIAN, 75 mg at 10/06/24827 Insert peripheral IV, , , Once AND Saline lock IV, , , Once AND sodium chloride 0.9 % flush10 mL, 10 mL, Intravenous, q12h, 10 mL at 10/04/242031 AND sodium chloride 0.9 % flush 10 mL, 10 mL, Intravenous, PRN, Lala Valdes B, MEDICAL ADMINISTRATIVE TECHNICIAN traZODone (Desyrel) tablet 100 mg, 100 mg, Oral, Nightly, Lala Valdes, MEDICAL ADMINISTRATIVE TECHNICIAN, 100 mg at 10/06/24 2030 Facility-Administered Medications Ordered in Other Encounters: lidocaine-EPINEPHrine (PF) (Xylocaine W/EPI) 1 %-1:683634 injection - Pyxis Override Pull, , , , lidocaine-EPINEPHrine (PF) (Xylocaine W/EPI) 1 %-1:150572 injection - Pyxis Override Pull, , , , [2] No Known Allergies * Care Plan - Serene Boothe RN - 10/07/2024 1:29 AM EDT Problem: Adult Inpatient Plan of Care Goal: Plan of Care Review Outcome: Ongoing, Progressing Flowsheets Taken 10/07/2024 0127 Plan of Care Reviewed With: patient Taken 10/06/2024 0139 Progress: no change Goal: Patient-Specific Goal (Individualized) Outcome: Ongoing, Progressing Flowsheets (Taken 10/06/2024 0700 by Arturo Salazar RN) Patient/Family-Specific Goals (Include Timeframe): Patient will be free of falls during shift Individualized Care Needs: fall risk Anxieties, Fears or Concerns: none Goal: Absence of Hospital-Acquired Illness or Injury Outcome: Ongoing, Progressing Intervention: Identify and Manage Fall Risk Flowsheets (Taken 10/07/2024 0000) Safety Promotion/Fall Prevention: clutter-free environment maintained safety round/check completed room organization consistent nonskid shoes/slippers when out of bed assistive device/personal items within reach Intervention: Prevent Skin Injury Flowsheets Taken 10/06/2024 1753 by Arturo Salazar RN Body Position: weight shifting Taken 10/06/2024 0738 by Arturo Salazar RN Skin Protection: incontinence pads utilized Intervention: Prevent and Manage VTE (Venous Thromboembolism) Risk Flowsheets (Taken 10/07/2024 0000) VTE Prevention/Management: medication Intervention: Prevent Infection Flowsheets (Taken 10/07/2024 0127) Infection Prevention: environmental surveillance performed equipment surfaces disinfected rest/sleep promoted hand hygiene promoted Goal: Optimal Comfort and Wellbeing Outcome: Ongoing, Progressing Intervention: Monitor Pain and Promote Comfort Flowsheets (Taken 10/07/2024 0127) Pain Management Interventions: medication (see MAR) Intervention: Provide Person-Centered Care Flowsheets (Taken 10/07/2024 0127) Trust Relationship/Rapport: care explained emotional support provided thoughts/feelings acknowledged questions answered Goal: Readiness for Transition of Care Outcome: Ongoing, Progressing Intervention: Mutually Develop Transition Plan Flowsheets (Taken 10/04/2024 1637 by Indy Liao RN) Current Discharge Risk: cognitively impaired Problem: Skin Injury Risk Increased Goal: Skin Health and Integrity Outcome: Ongoing, Progressing Problem: Fall Injury Risk Goal: Absence of Fall and Fall-Related Injury Outcome: Ongoing, Progressing Problem: Wound Goal: Absence of Infection Signs and Symptoms Outcome: Ongoing, Progressing Goal: Skin Health and Integrity Outcome: Ongoing, Progressing Goal: Optimal Wound Healing Outcome: Ongoing, Progressing Problem: Hemodialysis Goal: Safe, Effective Therapy Delivery Outcome: Ongoing, Progressing Goal: Effective Tissue Perfusion Outcome: Ongoing, Progressing Goal: Absence of Infection Signs and Symptoms Outcome: Ongoing, Progressing Problem: Self-Care Deficit Goal: Improved Ability to Complete Activities of Daily Living Outcome: Ongoing, Progressing Intervention: Promote Activity and Functional [place] Flowsheets Taken 10/06/2024 1600 by Arturo Salazar RN Activity Assistance Provided: assistance, 2 people Taken 10/05/2024 1024 by Arturo Salazar, TRISTIN Self-Care Promotion: independence encouraged Problem: Infection Goal: Absence of Infection Signs and Symptoms Outcome: Ongoing, Progressing Intervention: Prevent or Manage Infection Flowsheets Taken 10/06/2024 0700 by Arturo Salazar RN Isolation Precautions: protective Taken 10/05/2024 0350 by Serene Boothe, RN Fever Reduction/Comfort Measures: lightweight bedding Problem: Diabetes Goal: Optimal Coping Outcome: Ongoing, Progressing Intervention: Support Wellbeing and Self-Management Success Flowsheets Taken 10/06/2024 0139 by Serene Boothe, RN Supportive Measures: active listening utilized Taken 10/05/2024 1029 by Arturo Salazar, press bucker/Support System Care: self-care encouraged Goal: Optimal Functional Ability Outcome: Ongoing, Progressing Intervention: Optimize Functional Ability Flowsheets Taken 10/06/2024 1600 by Arturo Salazar, RN Activity Assistance Provided: assistance, 2 people Taken 10/06/2024 0738 by Arturo Salazar, RN Activity Management: activity adjusted per tolerance Goal: Blood Glucose Level Within Target Range Outcome: Ongoing, Progressing Intervention: Optimize Glycemic Control Flowsheets (Taken 10/07/2024 0127) Hyperglycemia Management: blood glucose monitored Goal: Minimize Hypoglycemia Risk Outcome: Ongoing, Progressing * Progress Notes - Leda Gaitan MD - 10/06/2024 9:56 AM EDT Images from the original note were not included. [facility] Inpatient Progress Note Patient: Mundo Fernandez PCP: Leonard Botello MD Date: 10/06/2024 Subjective Patient interactive today asking me for his hearing aids. Called caregiver to see if she could bring them but did not answer. Review of Systems Unable to perform ROS: Psychiatric disorder Objective INPATENT MEDICATIONS Current Medications[1] ALLERGIES Allergies[2] 24 HOUR VITALS Temp: [36.3 ??C (97.3 ??F)-36.9 ??C (98.4 ??F)] 36.4 ??C (97.6 ??F) Heart Rate: [66-75] 69 Resp: [18] 18 BP: (147-187)/(64-98) 153/64 INTAKE/OUTPUT No intake or output data in the 24 hours ending 10/06/24 0956 Physical Exam Constitutional: General: He is not in acute distress. Appearance: He is normal weight. He is not toxic-appearing. HENT: Head: Normocephalic. Right Ear: External ear normal. Left Ear: External ear normal. Nose: Nose normal. Mouth/Throat: Mouth: Mucous membranes are moist. Eyes: General: Right eye: No discharge. Left eye: No discharge. Extraocular Movements: Extraocular movements intact. Pupils: Pupils are equal, round, and reactive to light. Cardiovascular: Rate and Rhythm: Normal rate and regular rhythm. Pulmonary: Effort: Pulmonary effort is normal. Breath sounds: Normal breath sounds. Abdominal: General: Abdomen is flat. There is no distension. Musculoskeletal: General: No swelling, deformity or signs of injury. Cervical back: Normal range of motion and neck supple. Skin: General: Skin is warm. Findings: No lesion. Neurological: Mental Status: He is alert. Psychiatric: Attention and Perception: He is inattentive. Mood and Affect: Affect is inappropriate. Cognition and Memory: Cognition is impaired. Memory is impaired. Judgment: Judgment is impulsive. REVIEW OF LABORATORY DATA Lab Results Component Value Date WBC 7.44 10/02/2024 HGB 10.4 (L) 10/02/2024 HCT 29.8 (L) 10/02/2024 MCV 90 10/02/2024 PLT 119 (L) 10/02/2024 Lab Results Component Value Date GLUCOSE 103 (H) 10/06/2024 CALCIUM 7.5 (L) 10/06/2024 NA 125 (L) 10/06/2024 K 3.8 10/06/2024 CO2 23 10/06/2024 CL 92 (L) 10/06/2024 BUN 30 (H) 10/06/2024 CREATININE 5.95 (H) 10/06/2024 Lab Results Component Value Date ALT 6 (L) 09/30/2024 AST 13 09/30/2024 ALKPHOS 42 09/30/2024 BILITOT 0.6 09/30/2024 Lab Results Component Value Date INR 1.0 12/07/2022 REVIEW OF IMAGING STUDIES XR Chest 1 View Narrative: CLINICAL INDICATION: discharge clearance TECHNIQUE: XR CHEST 1 VIEW COMPARISON: April 28, 2023 FINDINGS: Small pleural effusions versus pleural thickening, decreased since prior. Low lung volumes with bilateral atelectasis. No consolidation. No pneumothorax. Impression: Decreased pleural effusions. CRITICAL RESULT: No. COMMUNICATION: Per this written report. Drafted by Mundo Martins MD on 08/25/2023 12:16 PM Final report signed by Mundo Martins MD on 08/25/2023 12:18 PM REVIEW OF PROCEDURES Assessment and Plan: Aakash Fernandez is a [place] 64 y.o. male with past history of ESRD on HD MWF, T2DM, HTN, chronic HFrEF, PAD, HLD, IDD/dementia, depression/anxiety, insomnia, chronic HCV, DM foot ulcer c/b OM s/p bilateral transmetarsal amputation, and debility sent from [place] [facility] to ED for medical evaluationafter refusing care. Declining functional status - Transferred to [place] [facility] a week ago and since arrival refusing HD, to eat, participate, or take medications - sent to ED for medical evaluation and need for higher level of assist/unable to care for self/non-compliance - afebrile, VSS, no acute complaints PLAN - PT/OT consult re: placement - legal guardian is his brother, Chris Fernandez, #[phone] (not answering calls since patient admission) At high risk for falls - wheelchair dependent, fall precautions ESRD (end stage renal disease) on dialysis ([facility]) - HD (MWF) - renally dose meds based on EGFR - strict I/O, daily weight Electrolyte and fluid disorder Hyponatremia - switch lokelma daily to 10 mg on non-dialysis days - follow-up RFP, trend Na Chronic kidney disease-mineral and bone disorder (CKD-MBD) - continue Renvela 800 mg TID with meals Anemia in chronic kidney disease (CODE) - Hgb stable, transfuse to keep >7 - ferritin, iron studies Type 2 diabetes mellitus with chronic kidney disease on chronic dialysis ([facility]) - last A1c 6.3 PLAN - ACHS regular SSI - hold home glargine 5U at bedtime while trend glucose/PO intake Dementia ([facility]) - Delirium precautions - Psych recommended to restart Asenapine 3.8 mg daily (not on formulary his caregiver will bring some of his patches) Mild intellectual disabilities - last neuropsych exam in 2023 found to not have capacity, brother is legal guardian - continue Depakote Sprinkle 250 mg twice daily Anxiety and depression - continue sertraline 75 mg daily Insomnia, unspecified - continue trazodone 100 mg at bedtime, melatonin 3 mg at bedtime Essential (primary) hypertension - continue carvedilol 12.5 mg twice daily, nifedipine XL 30 mg daily (hold for BP <120/80 on dialysis days) Arterial insufficiency ([facility]) - continue aspirin 81 mg daily, clopidogrel 75 mg daily Mixed hyperlipidemia - continue atorvastatin 40 mg at bedtime 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 - continue statin, ASA, clopidogrel as above Gastroesophageal reflux disease without esophagitis - continue daily PPI Sensorineural hearing loss, bilateral - complicates all aspects of care Wears hearing aid in both ears - not present with patient on admission, have tried to call caregiver to bring them to hospital with no luck Chronic combined systolic (congestive) and diastolic (congestive) heart failure (CMS/HCC) - ECHO 06/27/2022: EF 45%, abnormal diastolic dysfunction - strict I/O, 2 L fluid restriction, cardiac/renal/CCHO2 diet Chronic hepatitis C without hepatic coma (CMS/HCC) - HCV RNA PCR not detected 07/13/2023 History of transmetatarsal amputation of foot (CMS/HCC) - chronic OM 2/2 DM foot ulcers s/p bilateral transmetarsal amputation Inpatient Checklist: Inpatient checklist: - Bowel regimen: ducolax - Code status: Full Code - Diet: PO - DVT prophylaxis: heparin - Disposition: placement CODE STATUS: Full Code EMERGENCY CONTACT: Extended Emergency Contact Information Primary Emergency Contact: Chris Fernandez Mobile Relation: Legal Guardian Preferred language: Kosovan Repair Operator needed? No Secondary Emergency Contact: Mariel Chavez Address: [address] [place] [address] Mobile Relation: [place] Developer Repair Operator needed? No Leda Kelley MD Double Surface Operator [facility] Certified Strategy Execution Consultant Pager [phone] [1] Current Facility-Administered Medications: acetaminophen (Tylenol) tablet 650 mg, 650 mg, Oral, q6h PRN, Lucio Gitana B, MEDICAL ADMINISTRATIVE TECHNICIAN Asenapine 3.8mg/24 hr patch, 1 patch, Transdermal, q24h, Leda Gaitan MD, 1 patchat 10/05/24 1427 aspirin chewable tablet 81 mg, 81 mg, Oral, Daily, Lucio Gitana B, MEDICAL ADMINISTRATIVE TECHNICIAN, 81 mg at 10/06/24 0828 atorvastatin (Lipitor) tablet 40 mg, 40 mg, Oral, Nightly, Lala Valdes B, MEDICAL ADMINISTRATIVE TECHNICIAN, 40 mg at 10/05/24 210 bisacodyl (Dulcolax) EC tablet 10 mg, 10 mg, Oral, Daily PRN, Lucio Gitana B, MEDICAL ADMINISTRATIVE TECHNICIAN cadexomer iodine (Iodosorb) 0.9 % gel, , Topical, Daily, Khalid, Fajardo Jared, MD, Given at 10/04/24 1311 carvedilol (Coreg) tablet 12.5 mg, 12.5 mg, Oral, BID, Lala Valdes, MEDICAL ADMINISTRATIVE TECHNICIAN, 12.5 mg at 10/06/24 0828 clopidogrel (Plavix) tablet 75 mg, 75 mg, Oral, Daily, Lala Valdes, MEDICAL ADMINISTRATIVE TECHNICIAN, 75 mg at 10/06/24 0828 glucose (Glutose) 40 % oral gel 15-30 grams of glucose, 15-30 grams of glucose, Sublingual, q15 minPRN OR dextrose 10 % (D10W) bolus 125 mL, 125 mL, Intravenous, q15 min PRN OR dextrose 10 %(D10W) bolus 250 mL, 250 mL, Intravenous, q15 min PRN OR glucagon (human recombinant) injection1 mg, 1 mg, Intramuscular, q15 min PRN, Lala Valdes MEDICAL ADMINISTRATIVE TECHNICIAN divalproex sprinkle (Depakote Sprinkle) DR capsule 250 mg, 250 mg, Oral, BID, Lala Valdes, MEDICAL ADMINISTRATIVE TECHNICIAN,250 mg at 10/06/24 0828 heparin (porcine) injection 5,000 Units, 5,000 Units, Subcutaneous, q8h RAFAT, Lala Valdes MEDICAL ADMINISTRATIVE TECHNICIAN, 5,000 Units at 10/06/24 0556 insulin lispro (Admelog) 100 units/mL injection - Correction - Standard Dose, 0- 5 Units, Subcutaneous, TID with meals, Lala Valdes MEDICAL ADMINISTRATIVE TECHNICIAN, 1 Units at 10/02/24 1706 insulin lispro (Admelog) injection - Correction - Nighttime Dose, 0-3 Units, Subcutaneous, Twice atnight, Lala Valdes MEDICAL ADMINISTRATIVE TECHNICIAN melatonin tablet 3 mg, 3 mg, Oral, Nightly, Lala Valdes, MEDICAL ADMINISTRATIVE TECHNICIAN, 3 mg at 10/05/24 2105 NIFEdipine XL (Procardia XL) 24 hr tablet 30 mg, 30 mg, Oral, Daily, Lala Valdes, MEDICAL ADMINISTRATIVE TECHNICIAN, 30 mg at10/06/24 0828 polyethylene glycol (Miralax) packet 17 g, 17 g, Oral, Daily, Lala Valdes, MEDICAL ADMINISTRATIVE TECHNICIAN, 17 g at 10/06/24 0828 sertraline (Zoloft) tablet 75 mg, 75 mg, Oral, Daily, Lucio, Gitana B, MEDICAL ADMINISTRATIVE TECHNICIAN, 75 mg at 10/06/24 0828 Insert peripheral IV, , , Once AND Saline lock IV, , , Once AND sodium chloride 0.9 % flush10 mL, 10 mL, Intravenous, q12h, 10 mL at 10/04/242031 AND sodium chloride 0.9 % flush 10 mL, 10 mL, Intravenous, PRN, Lucio, Gitana B, MEDICAL ADMINISTRATIVE TECHNICIAN traZODone (Desyrel) tablet 100 mg, 100 mg, Oral, Nightly, Lucio, Gitana B, MEDICAL ADMINISTRATIVE TECHNICIAN, 100 mg at 10/05/242104 Facility-Administered Medications Ordered in Other Encounters: lidocaine-EPINEPHrine (PF) (Xylocaine W/EPI) 1 %-1:542565 injection - Pyxis Override Pull, , , , lidocaine-EPINEPHrine (PF) (Xylocaine W/EPI) 1 %-1:593136 injection - Pyxis Override Pull, , , , [2] No Known Allergies * Care Plan - Arturo Salazar RN - 10/06/2024 7:41 AM EDT Problem: Adult Inpatient Plan of Care Goal: Plan of Care Review Outcome: Ongoing, Progressing Flowsheets (Taken 10/05/2024 1024) Plan of Care Reviewed With: patient Goal: Patient-Specific Goal (Individualized) Outcome: Ongoing, Progressing Flowsheets (Taken 10/06/2024 0700) Patient/Family-Specific Goals (Include Timeframe): Patient will be free of falls during shift Individualized Care Needs: fall risk Anxieties, Fears or Concerns: none Goal: Absence of Hospital-Acquired Illness or Injury Outcome: Ongoing, Progressing Intervention: Identify and Manage Fall Risk Flowsheets (Taken 10/06/2024 0738) Safety Promotion/Fall Prevention: clutter-free environment maintained Intervention: Prevent Skin Injury Flowsheets (Taken 10/06/2024 07) Skin Protection: incontinence pads utilized Intervention: Prevent and Manage VTE (Venous Thromboembolism) Risk Flowsheets (Taken 10/06/2024 0738) VTE Prevention/Management: SCDs (sequential compression devices) off patient refused intervention Intervention: Prevent Infection Flowsheets (Taken 10/05/2024 1024) Infection Prevention: hand hygiene promoted Goal: Optimal Comfort and Wellbeing Outcome: Ongoing, Progressing Intervention: Monitor Pain and Promote Comfort Flowsheets (Taken 10/06/2024 0738) Pain Management Interventions: position adjusted Intervention: Provide Person-Centered Care Flowsheets (Taken 10/05/2024 1024) Trust Relationship/Rapport: care explained Goal: Readiness for Transition of Care Outcome: Ongoing, Progressing Intervention: Mutually Develop Transition Plan Flowsheets (Taken 10/05/2024 1024) Readmission Within the Last 30 Days: lack of support Problem: Skin Injury Risk Increased Goal: Skin Health and Integrity Outcome: Ongoing, Progressing Intervention: Optimize Skin Protection Flowsheets (Taken 10/06/2024 0738) Activity Management: activity adjusted per tolerance Skin Protection: incontinence pads utilized Intervention: Promote and Optimize Oral Intake Flowsheets (Taken 10/05/2024 1024) Oral Nutrition Promotion: rest periods promoted Problem: Fall Injury Risk Goal: Absence of Fall and Fall-Related Injury Outcome: Ongoing, Progressing Intervention: Identify and Manage Contributors Flowsheets Taken 10/06/2024 0738 Medication Review/Management: medications reviewed Taken 10/05/2024 1024 Self-Care Promotion: independence encouraged Intervention: Promote Injury-Free Environment Flowsheets (Taken 10/06/2024 0738) Safety Promotion/Fall Prevention: clutter-free environment maintained Problem: Wound Goal: Absence of Infection Signs and Symptoms Outcome: Ongoing, Progressing Intervention: Prevent or Manage Infection Flowsheets (Taken 10/06/2024 0700) Isolation Precautions: protective Goal: Skin Health and Integrity Outcome: Ongoing, Progressing Intervention: Optimize Skin Protection Flowsheets (Taken 10/06/2024 0738) Activity Management: activity adjusted per tolerance Goal: Optimal Wound Healing Outcome: Ongoing, Progressing Intervention: Promote Wound Healing Flowsheets (Taken 10/05/2024 1024) Sleep/Rest Enhancement: regular sleep/rest pattern promoted Problem: Hemodialysis Goal: Safe, Effective Therapy Delivery Outcome: Ongoing, Progressing Intervention: Optimize Device Care and Function Flowsheets (Taken 10/06/2024 0738) Medication Review/Management: medications reviewed Goal: Effective Tissue Perfusion Outcome: Ongoing, Progressing Intervention: Optimize Blood Flow Flowsheets (Taken 10/05/2024 1029) Stabilization Measures: legs elevated Goal: Absence of Infection Signs and Symptoms Outcome: Ongoing, Progressing Intervention: Prevent or Manage Infection Flowsheets (Taken 10/05/2024 1024) Infection Management: aseptic technique maintained Problem: Self-Care Deficit Goal: Improved Ability to Complete Activities of Daily Living Outcome: Ongoing, Progressing Intervention: Promote Activity and Functional [place] Flowsheets (Taken 10/05/2024 0800) Activity Assistance Provided: assistance, 2 people Problem: Infection Goal: Absence of Infection Signs and Symptoms Outcome: Ongoing, Progressing Intervention: Prevent or Manage Infection Flowsheets (Taken 10/05/2024 1024) Infection Management: aseptic technique maintained Problem: Diabetes Goal: Optimal Coping Outcome: Ongoing, Progressing Intervention: Support Wellbeing and Self-Management Success Flowsheets (Taken 10/05/2024 1029) Family/Support System Care: self-care encouraged Goal: Optimal Functional Ability Outcome: Ongoing, Progressing Intervention: Optimize Functional Ability Flowsheets Taken 10/06/2024 0738 Activity Management: activity adjusted per tolerance Taken 10/05/2024 0800 Activity Assistance Provided: assistance, 2 people Goal: Blood Glucose Level Within Target Range Outcome: Ongoing, Progressing Intervention: Optimize Glycemic Control Flowsheets (Taken 10/05/2024 1029) Hyperglycemia Management: blood glucose monitored Goal: Minimize Hypoglycemia Risk Outcome: Ongoing, Progressing Intervention: Minimize and Manage Hypoglycemia Flowsheets (Taken 10/05/2024 1029) Hypoglycemia Management: blood glucose monitored * Care Plan - Serene Boothe RN - 10/06/2024 1:42 AM EDT Problem: Adult Inpatient Plan of Care Goal: Plan of Care Review Outcome: Ongoing, Progressing Flowsheets Taken 10/06/2024 0139 by Serene Boothe RN Progress: no change Taken 10/05/2024 1024 by Arturo Salazar RN Plan of Care Reviewed With: patient Goal: Patient-Specific Goal (Individualized) Outcome: Ongoing, Progressing Flowsheets Taken 10/05/2024 1024 by Arturo Salaazr RN Patient/Family-Specific Goals (Include Timeframe): Patient will be free of falls during shift Individualized Care Needs: Fall risk Taken 10/05/2024 0800 by Arturo Salazar RN Anxieties, Fears or Concerns: none Goal: Absence of Hospital-Acquired Illness or Injury Outcome: Ongoing, Progressing Intervention: Identify and Manage Fall Risk Flowsheets (Taken 10/06/2024 0000) Safety Promotion/Fall Prevention: clutter-free environment maintained safety round/check completed room organization consistent nonskid shoes/slippers when out of bed assistive device/personal items within reach Intervention: Prevent Skin Injury Flowsheets Taken 10/05/2024 1600 by Arturo Salazar RN Body Position: weight shifting Taken 10/04/2024 1637 by Indy Liao RN Skin Protection: incontinence pads utilized Intervention: Prevent and Manage VTE (Venous Thromboembolism) Risk Flowsheets (Taken 10/06/2024 0000) VTE Prevention/Management: medication Intervention: Prevent Infection Flowsheets (Taken 10/05/2024 1024 by Arturo Salazar RN) Infection Prevention: hand hygiene promoted Goal: Optimal Comfort and Wellbeing Outcome: Ongoing, Progressing Goal: Readiness for Transition of Care Outcome: Ongoing, Progressing Problem: Skin Injury Risk Increased Goal: Skin Health and Integrity Outcome: Ongoing, Progressing Problem: Fall Injury Risk Goal: Absence of Fall and Fall-Related Injury Outcome: Ongoing, Progressing Problem: Wound Goal: Absence of Infection Signs and Symptoms Outcome: Ongoing, Progressing Intervention: Prevent or Manage Infection Flowsheets Taken 10/05/2024 0800 by Arturo Salazar RN Isolation Precautions: protective Taken 10/05/2024 0350 by Serene Boothe RN Fever Reduction/Comfort Measures: lightweight bedding Goal: Skin Health and Integrity Outcome: Ongoing, Progressing Goal: Optimal Wound Healing Outcome: Ongoing, Progressing Intervention: Promote Wound Healing Flowsheets (Taken 10/05/2024 1024 by Arturo Salazar RN) Sleep/Rest Enhancement: regular sleep/rest pattern promoted Problem: Hemodialysis Goal: Safe, Effective Therapy Delivery Outcome: Ongoing, Progressing Goal: Effective Tissue Perfusion Outcome: Ongoing, Progressing Goal: Absence of Infection Signs and Symptoms Outcome: Ongoing, Progressing Intervention: Prevent or Manage Infection Flowsheets Taken 10/05/2024 1024 by Arturo Salazar RN Infection Prevention: hand hygiene promoted Taken 10/05/2024 0350 by Serene Boothe RN Fever Reduction/Comfort Measures: lightweight bedding Problem: Self-Care Deficit Goal: Improved Ability to Complete Activities of Daily Living Outcome: Ongoing, Progressing Problem: Infection Goal: Absence of Infection Signs and Symptoms Outcome: Ongoing, Progressing Intervention: Prevent or Manage Infection Flowsheets Taken 10/05/2024 0800 by Arturo Salazar RN Isolation Precautions: protective Taken 10/05/2024 0350 by Serene Boothe RN Fever Reduction/Comfort Measures: lightweight bedding Problem: Diabetes Goal: Optimal Coping Outcome: Ongoing, Progressing Intervention: Support Wellbeing and Self-Management Success Flowsheets Taken 10/06/2024 0139 by Serene Boothe RN Supportive Measures: active listening utilized Taken 10/05/2024 1029 by Arturo Salazar RN Family/Support System Care: self-care encouraged Goal: Optimal Functional Ability Outcome: Ongoing, Progressing Intervention: Optimize Functional Ability Flowsheets (Taken 10/05/2024 0800 by Arturo Salazar RN) Activity Management: activity adjusted per tolerance Activity Assistance Provided: assistance, 2 people Goal: Blood Glucose Level Within Target Range Outcome: Ongoing, Progressing Intervention: Optimize Glycemic Control Flowsheets (Taken 10/05/2024 1029 by Arturo Salazar RN) Hyperglycemia Management: blood glucose monitored Goal: Minimize Hypoglycemia Risk Outcome: Ongoing, Progressing Intervention: Minimize and Manage Hypoglycemia Flowsheets (Taken 10/05/2024 1029 by Arturo Salazar RN) Hypoglycemia Management: blood glucose monitored * Progress Notes - Leda Gaitan MD - 10/05/2024 11:40 AM EDT Images from the original note were not included. [facility] Medicine Inpatient Progress Note Patient: Mundo Fernandez PCP: Leonard Botello MD Date: 10/05/2024 Subjective Patient interactive today asking me for his hearing aids. Called his brother Chris and went to voicemail Review of Systems Unable to perform ROS: Psychiatric disorder Objective INPATENT MEDICATIONS Current Medications[1] ALLERGIES Allergies[2] 24 HOUR VITALS Temp: [36.2 ??C (97.1 ??F)-36.9 ??C (98.5 ??F)] 36.7 ??C (98 ??F) Heart Rate: [62-93] 72 Resp: [16-18] 18 BP: (142-184)/(65-86) 151/73 INTAKE/OUTPUT Intake/Output Summary (Last 24 hours) at 10/05/2024 1140 Last data filed at 10/05/2024 0900 Gross per 24 hour Intake 540 ml Output 1300 ml Net -760 ml Physical Exam Constitutional: General: He is not in acute distress. Appearance: He is normal weight. He is not toxic-appearing. HENT: Head: Normocephalic. Right Ear: External ear normal. Left Ear: External ear normal. Nose: Nose normal. Mouth/Throat: Mouth: Mucous membranes are moist. Eyes: General: Right eye: No discharge. Left eye: No discharge. Extraocular Movements: Extraocular movements intact. Pupils: Pupils are equal, round, and reactive to light. Cardiovascular: Rate and Rhythm: Normal rate and regular rhythm. Pulmonary: Effort: Pulmonary effort is normal. Breath sounds: Normal breath sounds. Abdominal: General: Abdomen is flat. There is no distension. Musculoskeletal: General: No swelling, deformity or signs of injury. Cervical back: Normal range of motion and neck supple. Skin: General: Skin is warm. Findings: No lesion. Neurological: Mental Status: He is alert. Psychiatric: Attention and Perception: He is inattentive. Mood and Affect: Affect is inappropriate. Cognition and Memory: Cognition is impaired. Memory is impaired. Judgment: Judgment is impulsive. REVIEW OF LABORATORY DATA Lab Results Component Value Date WBC 7.44 10/02/2024 HGB 10.4 (L) 10/02/2024 HCT 29.8 (L) 10/02/2024 MCV 90 10/02/2024 PLT 119 (L) 10/02/2024 Lab Results Component Value Date GLUCOSE 84 10/04/2024 CALCIUM 7.3 (L) 10/04/2024 NA 128 (L) 10/04/2024 K 3.8 10/04/2024 CO2 24 10/04/2024 CL 94 (L) 10/04/2024 BUN 31 (H) 10/04/2024 CREATININE 6.91 (H) 10/04/2024 Lab Results Component Value Date ALT 6 (L) 09/30/2024 AST 13 09/30/2024 ALKPHOS 42 09/30/2024 BILITOT 0.6 09/30/2024 Lab Results Component Value Date INR 1.0 12/07/2022 REVIEW OF IMAGING STUDIES XR Chest 1 View Narrative: CLINICAL INDICATION: discharge clearance TECHNIQUE: XR CHEST 1 VIEW COMPARISON: April 28, 2023 FINDINGS: Small pleural effusions versus pleural thickening, decreased since prior. Low lung volumes with bilateral atelectasis. No consolidation. No pneumothorax. Impression: Decreased pleural effusions. CRITICAL RESULT: No. COMMUNICATION: Per this written report. Drafted by Mundo Martins MD on 08/25/2023 12:16 PM Final report signed by Mundo Martins MD on 08/25/2023 12:18 PM REVIEW OF PROCEDURES Assessment and Plan: Aakash Fernandez is a [place] 64 y.o. male with past history of ESRD on HD MWF, T2DM, HTN, chronic HFrEF, PAD, HLD, IDD/dementia, depression/anxiety, insomnia, chronic HCV, DM foot ulcer c/b OM s/p bilateral transmetarsal amputation, and debility sent from [place] [facility] to ED for medical evaluationafter refusing care. Declining functional status - Transferred to [place] [facility] [place] a week ago and since arrival refusing HD, to eat, participate, or take medications - sent to ED for medical evaluation and need for higher level of assist/unable to care for self/non-compliance - afebrile, VSS, no acute complaints PLAN - PT/OT consult re: placement - legal guardian is his brother, Chris Fernandez, #[phone] (not answering calls since patient admission) At high risk for falls - wheelchair dependent, fall precautions ESRD (end stage renal disease) on dialysis ([facility]) - HD (MWF) - renally dose meds based on EGFR - strict I/O, daily weight Electrolyte and fluid disorder Hyponatremia - switch lokelma daily to 10 mg on non-dialysis days - follow-up RFP, trend Na Chronic kidney disease-mineral and bone disorder (CKD-MBD) - continue Renvela 800 mg TID with meals Anemia in chronic kidney disease (CODE) - Hgb stable, transfuse to keep >7 - ferritin, iron studies Type 2 diabetes mellitus with chronic kidney disease on chronic dialysis ([facility]) - last A1c 6.3 PLAN - ACHS regular SSI - hold home glargine 5U at bedtime while trend glucose/PO intake Dementia ([facility]/HCC) - Delirium precautions - Psych recommended to restart Asenapine 3.8 mg daily (not on formulary his caregiver will bring some of his patches) Mild intellectual disabilities - last neuropsych exam in 2023 found to not have capacity, brother is legal guardian - continue Depakote Sprinkle 250 mg twice daily Anxiety and depression - continue sertraline 75 mg daily Insomnia, unspecified - continue trazodone 100 mg at bedtime, melatonin 3 mg at bedtime Essential (primary) hypertension - continue carvedilol 12.5 mg twice daily, nifedipine XL 30 mg daily (hold for BP <120/80 on dialysis days) Arterial insufficiency ([facility]/HCC) - continue aspirin 81 mg daily, clopidogrel 75 mg daily Mixed hyperlipidemia - continue atorvastatin 40 mg at bedtime 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 - continue statin, ASA, clopidogrel as above Gastroesophageal reflux disease without esophagitis - continue daily PPI Sensorineural hearing loss, bilateral - complicates all aspects of care Wears hearing aid in both ears - not present with patient on admission Chronic combined systolic (congestive) and diastolic (congestive) heart failure (CMS/HCC) - ECHO 06/27/2022: EF 45%, abnormal diastolic dysfunction - strict I/O, 2 L fluid restriction, cardiac/renal/CCHO2 diet Chronic hepatitis C without hepatic coma ([facility]/HCC) - HCV RNA PCR not detected 07/13/2023 History of transmetatarsal amputation of foot ([facility]) - chronic OM 2/2 DM foot ulcers s/p bilateral transmetarsal amputation Inpatient Checklist: Inpatient checklist: - Bowel regimen: ducolax - Code status: Full Code - Diet: PO - DVT prophylaxis: heparin - Disposition: placement CODE STATUS: Full Code EMERGENCY CONTACT: Extended Emergency Contact Information Primary Emergency Contact: MiahChris Mobile Relation: Legal Guardian Preferred language: Kosovan Repair Operator needed? No Secondary Emergency Contact: Mariel Chavez [address]: [address] [place] [address] of [employer] Mobile Relation: [place] Developer Repair Operator needed? No Leda Kelley MD Double Surface Operator Internal Medicine Pediatrics Certified Strategy Execution Consultant Pager [phone] [1] Current Facility-Administered Medications: acetaminophen (Tylenol) tablet 650 mg, 650 mg, Oral, q6h PRN, Lala Valdes APRN Asenapine 3.8mg/24 hr patch, 1 patch, Transdermal, q24h, Leda Gaitan MD, 1 patchat 10/04/24 1342 aspirin chewable tablet 81 mg, 81 mg, Oral, Daily, Lala Valdes, MEDICAL ADMINISTRATIVE TECHNICIAN, 81 mg at 10/05/24 0855 atorvastatin (Lipitor) tablet 40 mg, 40 mg, Oral, Nightly, Lala Valdes, MEDICAL ADMINISTRATIVE TECHNICIAN, 40 mg at 10/04/242 bisacodyl (Dulcolax) EC tablet 10 mg, 10 mg, Oral, Daily PRN, Lala Valdes MEDICAL ADMINISTRATIVE TECHNICIAN cadexomer iodine (Iodosorb) 0.9 % gel, , Topical, Daily, Tana Wooten MD, Given at 10/04/24 1311 carvedilol (Coreg) tablet 12.5 mg, 12.5 mg, Oral, BID, Lala Valdes, MEDICAL ADMINISTRATIVE TECHNICIAN, 12.5 mg at 10/05/24 0855 clopidogrel (Plavix) tablet 75 mg, 75 mg, Oral, Daily, Lala Valdes MEDICAL ADMINISTRATIVE TECHNICIAN, 75 mg at 10/05/24 0855 glucose (Glutose) 40 % oral gel 15-30 grams of glucose, 15-30 grams of glucose, Sublingual, q15 minPRN OR dextrose 10 % (D10W) bolus 125 mL, 125 mL, Intravenous, q15 min PRN OR dextrose 10 %(D10W) bolus 250 mL, 250 mL, Intravenous, q15 min PRN OR glucagon (human recombinant) injection1 mg, 1 mg, Intramuscular, q15 min PRN, Lala Valdes MEDICAL ADMINISTRATIVE TECHNICIAN divalproex sprinkle (Depakote Sprinkle) DR capsule 250 mg, 250 mg, Oral, BID, Lala Valdes, MEDICAL ADMINISTRATIVE TECHNICIAN,250 mg at 10/05/24 0855 heparin (porcine) injection 5,000 Units, 5,000 Units, Subcutaneous, q8h RAFAT, Lala Valdes MEDICAL ADMINISTRATIVE TECHNICIAN, 5,000 Units at 10/05/24 0517 insulin lispro (Admelog) 100 units/mL injection - Correction - Standard Dose, 0- 5 Units, Subcutaneous, TID with meals, Lala Valdes MEDICAL ADMINISTRATIVE TECHNICIAN, 1 Units at 10/02/24 1706 insulin lispro (Admelog) injection - Correction - Nighttime Dose, 0-3 Units, Subcutaneous, Twice atnight, Lala Valdes B, MEDICAL ADMINISTRATIVE TECHNICIAN melatonin tablet 3 mg, 3 mg, Oral, Nightly, Lala Valdes B, MEDICAL ADMINISTRATIVE TECHNICIAN, 3 mg at 10/04/242031 mupirocin (Bactroban) 2 % ointment 1 Application, 1 Application, Each Nostril, BID, Tana Wooten MD, 1 Application at 10/05/24 08 NIFEdipine XL (Procardia XL) 24 hr tablet 30 mg, 30 mg, Oral, Daily, Lala Valdes B, MEDICAL ADMINISTRATIVE TECHNICIAN, 30 mg at10/05/24855 polyethylene glycol (Miralax) packet 17 g, 17 g, Oral, Daily, Lala Valdes B, MEDICAL ADMINISTRATIVE TECHNICIAN, 17 g at 10/05/24855 sertraline (Zoloft) tablet 75 mg, 75 mg, Oral, Daily, Lala Valdes B, MEDICAL ADMINISTRATIVE TECHNICIAN, 75 mg at 10/05/24855 Insert peripheral IV, , , Once AND Saline lock IV, , , Once AND sodium chloride 0.9 % flush10 mL, 10 mL, Intravenous, q12h, 10 mL at 10/04/242031 AND sodium chloride 0.9 % flush 10 mL, 10 mL, Intravenous, PRN, Laith Valdesana B, MEDICAL ADMINISTRATIVE TECHNICIAN traZODone (Desyrel) tablet 100 mg, 100 mg, Oral, Nightly, Lucio Gitana B, MEDICAL ADMINISTRATIVE TECHNICIAN, 100 mg at 10/04/242031 Facility-Administered Medications Ordered in Other Encounters: lidocaine-EPINEPHrine (PF) (Xylocaine W/EPI) 1 %-1:717172 injection - Pyxis Override Pull, , , , lidocaine-EPINEPHrine (PF) (Xylocaine W/EPI) 1 %-1:520750 injection - Pyxis Override Pull, , , , [2] No Known Allergies * Care Plan - Arturo Salazar RN - 10/05/2024 10:30 AM EDT Problem: Adult Inpatient Plan of Care Goal: Plan of Care Review Outcome: Ongoing, Progressing Flowsheets (Taken 10/05/2024 1024) Progress: improving Plan of Care Reviewed With: patient Goal: Patient-Specific Goal (Individualized) Outcome: Ongoing, Progressing Flowsheets Taken 10/05/2024 1024 Patient/Family-Specific Goals (Include Timeframe): Patient will be free of falls during shift Individualized Care Needs: Fall risk Taken 10/05/2024 0800 Anxieties, Fears or Concerns: none Goal: Absence of Hospital-Acquired Illness or Injury Outcome: Ongoing, Progressing Intervention: Identify and Manage Fall Risk Flowsheets (Taken 10/05/2024 1024) Safety Promotion/Fall Prevention: activity supervised Intervention: Prevent Skin Injury Flowsheets (Taken 10/05/2024 0800) Body Position: weight shifting Intervention: Prevent and Manage VTE (Venous Thromboembolism) Risk Flowsheets (Taken 10/05/2024 0800) VTE Prevention/Management: SCDs (sequential compression devices) off patient refused intervention Intervention: Prevent Infection Flowsheets (Taken 10/05/2024 1024) Infection Prevention: hand hygiene promoted Goal: Optimal Comfort and Wellbeing Outcome: Ongoing, Progressing Intervention: Monitor Pain and Promote Comfort Flowsheets (Taken 10/05/2024 1024) Pain Management Interventions: quiet environment facilitated Intervention: Provide Person-Centered Care Flowsheets (Taken 10/05/2024 1024) Trust Relationship/Rapport: care explained Goal: Readiness for Transition of Care Outcome: Ongoing, Progressing Intervention: Mutually Develop Transition Plan Flowsheets (Taken 10/05/2024 1024) Readmission Within the Last 30 Days: lack of support Problem: Skin Injury Risk Increased Goal: Skin Health and Integrity Outcome: Ongoing, Progressing Intervention: Optimize Skin Protection Flowsheets (Taken 10/05/2024 0800) Activity Management: activity adjusted per tolerance Intervention: Promote and Optimize Oral Intake Flowsheets (Taken 10/05/2024 1024) Oral Nutrition Promotion: rest periods promoted Problem: Fall Injury Risk Goal: Absence of Fall and Fall-Related Injury Outcome: Ongoing, Progressing Intervention: Identify and Manage Contributors Flowsheets (Taken 10/05/2024 1024) Medication Review/Management: medications reviewed Self-Care Promotion: independence encouraged Intervention: Promote Injury-Free Environment Flowsheets (Taken 10/05/2024 1024) Safety Promotion/Fall Prevention: activity supervised Problem: Wound Goal: Absence of Infection Signs and Symptoms Outcome: Ongoing, Progressing Intervention: Prevent or Manage Infection Flowsheets (Taken 10/05/2024 1024) Infection Management: aseptic technique maintained Goal: Skin Health and Integrity Outcome: Ongoing, Progressing Intervention: Optimize Skin Protection Flowsheets (Taken 10/05/2024 0800) Activity Management: activity adjusted per tolerance Goal: Optimal Wound Healing Outcome: Ongoing, Progressing Intervention: Promote Wound Healing Flowsheets (Taken 10/05/2024 1024) Sleep/Rest Enhancement: regular sleep/rest pattern promoted Problem: Hemodialysis Goal: Safe, Effective Therapy Delivery Outcome: Ongoing, Progressing Intervention: Optimize Device Care and Function Flowsheets (Taken 10/05/2024 1024) Medication Review/Management: medications reviewed Goal: Effective Tissue Perfusion Outcome: Ongoing, Progressing Intervention: Optimize Blood Flow Flowsheets (Taken 10/05/2024 1029) Stabilization Measures: legs elevated Goal: Absence of Infection Signs and Symptoms Outcome: Ongoing, Progressing Intervention: Prevent or Manage Infection Flowsheets (Taken 10/05/2024 1024) Infection Management: aseptic technique maintained Problem: Self-Care Deficit Goal: Improved Ability to Complete Activities of Daily Living Outcome: Ongoing, Progressing Intervention: Promote Activity and Functional [place] Flowsheets (Taken 10/05/2024 0800) Activity Assistance Provided: assistance, 2 people Problem: Infection Goal: Absence of Infection Signs and Symptoms Outcome: Ongoing, Progressing Intervention: Prevent or Manage Infection Flowsheets (Taken 10/05/2024 1024) Infection Management: aseptic technique maintained Problem: Diabetes Goal: Optimal Coping Outcome: Ongoing, Progressing Intervention: Support Wellbeing and Self-Management Success Flowsheets (Taken 10/05/2024 1029) Family/Support System Care: self-care encouraged Goal: Optimal Functional Ability Outcome: Ongoing, Progressing Intervention: Optimize Functional Ability Flowsheets (Taken 10/05/2024 0800) Activity Assistance Provided: assistance, 2 people Goal: Blood Glucose Level Within Target Range Outcome: Ongoing, Progressing Intervention: Optimize Glycemic Control Flowsheets (Taken 10/05/2024 1029) Hyperglycemia Management: blood glucose monitored Goal: Minimize Hypoglycemia Risk Outcome: Ongoing, Progressing Intervention: Minimize and Manage Hypoglycemia Flowsheets (Taken 10/05/2024 1029) Hypoglycemia Management: blood glucose monitored * Care Plan - Serene Boothe RN - 10/05/2024 3:54 AM EDT Problem: Adult Inpatient Plan of Care Goal: Plan of Care Review Outcome: Ongoing, Progressing Flowsheets Taken 10/05/2024 0350 by Serene Boothe RN Progress: no change Taken 10/04/2024 1637 by Indy Liao RN Plan of Care Reviewed With: patient Goal: Patient-Specific Goal (Individualized) Outcome: Ongoing, Progressing Flowsheets Taken 10/05/2024 0350 by Serene Boothe RN Anxieties, Fears or Concerns: none verbalized Taken 10/04/2024 0800 by Indy Liao RN Patient/Family-Specific Goals (Include Timeframe): Patient will be free from harm throughout this shift Individualized Care Needs: Safety Goal: Absence of Hospital-Acquired Illness or Injury Outcome: Ongoing, Progressing Intervention: Identify and Manage Fall Risk Flowsheets (Taken 10/05/2024 0200) Safety Promotion/Fall Prevention: clutter-free environment maintained safety round/check completed room organization consistent nonskid shoes/slippers when out of bed assistive device/personal items within reach Intervention: Prevent Skin Injury Flowsheets Taken 10/04/2024 1637 by Indy Liao RN Skin Protection: incontinence pads utilized Taken 10/04/2024 1600 by Indy Liao RN Body Position: turned weight shifting Intervention: Prevent and Manage VTE (Venous Thromboembolism) Risk Flowsheets (Taken 10/05/2024 0200) VTE Prevention/Management: medication Intervention: Prevent Infection Flowsheets (Taken 10/04/2024 1637 by Indy Liao RN) Infection Prevention: hand hygiene promoted environmental surveillance performed Goal: Optimal Comfort and Wellbeing Outcome: Ongoing, Progressing Goal: Readiness for Transition of Care Outcome: Ongoing, Progressing Problem: Skin Injury Risk Increased Goal: Skin Health and Integrity Outcome: Ongoing, Progressing Intervention: Optimize Skin Protection Flowsheets Taken 10/05/2024 0350 by Serene Boothe RN Head of Bed (HOB) Positioning: HOB at 30 degrees Taken 10/04/20241999 by Serene Boothe RN Activity Management: activity adjusted per tolerance Taken 10/04/2024 1637 by Indy Liao RN Skin Protection: incontinence pads utilized Taken 10/03/2024 1307 by Indy Liao RN Pressure Reduction Devices: heel offloading device utilized positioning supports utilized Intervention: Promote and Optimize Oral Intake Flowsheets Taken 10/05/2024 0350 by Serene Boothe RN Nutrition Interventions: food preferences provided Taken 10/02/2024 0037 by Shakira Olsen RN Oral Nutrition Promotion: physical activity promoted Problem: Fall Injury Risk Goal: Absence of Fall and Fall-Related Injury Outcome: Ongoing, Progressing Intervention: Identify and Manage Contributors Flowsheets Taken 10/05/2024 035 by Serene Boothe RN Self-Care Promotion: BADL personal objects within reach independence encouraged Taken 10/04/2024 1637 by Indy Liao RN Medication Review/Management: medications reviewed Intervention: Promote Injury-Free Environment Flowsheets (Taken 10/05/2024 0200) Safety Promotion/Fall Prevention: clutter-free environment maintained safety round/check completed room organization consistent nonskid shoes/slippers when out of bed assistive device/personal items within reach Problem: Wound Goal: Absence of Infection Signs and Symptoms Outcome: Ongoing, Progressing Goal: Skin Health and Integrity Outcome: Ongoing, Progressing Goal: Optimal Wound Healing Outcome: Ongoing, Progressing Intervention: Promote Wound Healing Flowsheets (Taken 10/05/2024 0350) Sleep/Rest Enhancement: regular sleep/rest pattern promoted room darkened Problem: Hemodialysis Goal: Safe, Effective Therapy Delivery Outcome: Ongoing, Progressing Goal: Effective Tissue Perfusion Outcome: Ongoing, Progressing Intervention: Optimize Blood Flow Flowsheets (Taken 10/05/2024 0350) Stabilization Measures: legs elevated Goal: Absence of Infection Signs and Symptoms Outcome: Ongoing, Progressing Intervention: Prevent or Manage Infection Flowsheets Taken 10/05/2024 035 by Serene Boothe RN Fever Reduction/Comfort Measures: lightweight bedding Taken 10/04/2024 1637 by Indy Liao RN Infection Prevention: hand hygiene promoted environmental surveillance performed Problem: Self-Care Deficit Goal: Improved Ability to Complete Activities of Daily Living Outcome: Ongoing, Progressing Intervention: Promote Activity and Functional [place] Flowsheets Taken 10/05/2024 0350 by Serene Boothe, TRISTIN Self-Care Promotion: BADL personal objects within reach independence encouraged Taken 10/04/2024 0800 by Indy Liao RN Activity Assistance Provided: assistance, 2 people Problem: Infection Goal: Absence of Infection Signs and Symptoms Outcome: Ongoing, Progressing Intervention: Prevent or Manage Infection Flowsheets (Taken 10/05/2024 0350) Fever Reduction/Comfort Measures: lightweight bedding * Consults - Hari Monet - 10/04/2024 4:45 PM EDT Pastoral Care Note Visited patient to check on him and introduce pastoralcare services. The patient expressed frustration related to difficulty to communicate verbally. Provided a compassionate listening presence, encouragement and spiritual support. Student Advisor remains available as needed. Patient Profile: Spiritual Assessment: Interventions: Pastoral Care Outcomes: * Care Plan - Indy Liao RN - 10/04/2024 4:40 PM EDT Problem: Adult Inpatient Plan of Care Goal: Plan of Care Review Outcome: Ongoing, Progressing Flowsheets (Taken 10/04/2024 1637) Progress: no change Plan of Care Reviewed With: patient Goal: Patient-Specific Goal (Individualized) Outcome: Ongoing, Progressing Flowsheets (Taken 10/04/2024 0800) Patient/Family-Specific Goals (Include Timeframe): Patient will be free from harm throughout this shift Individualized Care Needs: Safety Anxieties, Fears or Concerns: food Goal: Absence of Hospital-Acquired Illness or Injury Outcome: Ongoing, Progressing Intervention: Identify and Manage Fall Risk Flowsheets (Taken 10/04/2024 0800) Safety Promotion/Fall Prevention: activity supervised assistive device/personal items within reach clutter-free environment maintained fall prevention program maintained room organization consistent safety round/check completed nonskid shoes/slippers when out of bed Intervention: Prevent Skin Injury Flowsheets Taken 10/04/2024 1637 Skin Protection: incontinence pads utilized Taken 10/04/2024 1300 Body Position: weight shifting Intervention: Prevent and Manage VTE (Venous Thromboembolism) Risk Flowsheets (Taken 10/04/2024 1637) VTE Prevention/Management: medication Intervention: Prevent Infection Flowsheets (Taken 10/04/2024 1637) Infection Prevention: hand hygiene promoted environmental surveillance performed Goal: Optimal Comfort and Wellbeing Outcome: Ongoing, Progressing Intervention: Monitor Pain and Promote Comfort Flowsheets (Taken 10/04/2024 1637) Pain Management Interventions: declines Intervention: Provide Person-Centered Care Flowsheets (Taken 10/04/2024 1637) Trust Relationship/Rapport: care explained emotional support provided Goal: Readiness for Transition of Care Outcome: Ongoing, Progressing Intervention: Mutually Develop Transition Plan Flowsheets Taken 10/04/2024 1637 Current Discharge Risk: cognitively impaired Taken 10/03/2024 1307 Concerns to be Addressed: cognitive/perceptual * Progress Notes - Clau Vo RN - 10/04/2024 12:58 PM EDT CM attempted to speak with patients legal guardian Chris. Chris did not answer and does not have VM. Phone number was verified with patients caregiver yesterday. CM will continue to try to reach guardian re: discharge plan. Clau Vo RN * Progress Notes - Leda Gaitan MD - 10/04/2024 12:52 PM EDT Images from the original note were not included. [facility] Inpatient Progress Note Patient: Mundo Fernandez PCP: Leonard Botello MD Date: 10/04/2024 Subjective In dialysis today, not interactive. Still unable to communicate with his POA Review of Systems Unable to perform ROS: Psychiatric disorder Objective INPATENT MEDICATIONS Current Medications[1] ALLERGIES Allergies[2] 24 HOUR VITALS Temp: [36.3 ??C (97.3 ??F)-36.6 ??C (97.9 ??F)] 36.4 ??C (97.5 ??F) Heart Rate: [61-72] 63 Resp: [15-18] 16 BP: (120-164)/(49-83) 143/61 INTAKE/OUTPUT No intake or output data in the 24 hours ending 10/04/24 1252 Physical Exam Constitutional: General: He is not in acute distress. Appearance: He is normal weight. He is not toxic-appearing. HENT: Head: Normocephalic. Right Ear: External ear normal. Left Ear: External ear normal. Nose: Nose normal. Mouth/Throat: Mouth: Mucous membranes are moist. Eyes: General: Right eye: No discharge. Left eye: No discharge. Extraocular Movements: Extraocular movements intact. Pupils: Pupils are equal, round, and reactive to light. Cardiovascular: Rate and Rhythm: Normal rate and regular rhythm. Pulmonary: Effort: Pulmonary effort is normal. Breath sounds: Normal breath sounds. Abdominal: General: Abdomen is flat. There is no distension. Musculoskeletal: General: No swelling, deformity or signs of injury. Cervical back: Normal range of motion and neck supple. Skin: General: Skin is warm. Findings: No lesion. Neurological: Mental Status: He is alert. Psychiatric: Attention and Perception: He is inattentive. Mood and Affect: Affect is inappropriate. Cognition and Memory: Cognition is impaired. Memory is impaired. Judgment: Judgment is impulsive. REVIEW OF LABORATORY DATA Lab Results Component Value Date WBC 7.44 10/02/2024 HGB 10.4 (L) 10/02/2024 HCT 29.8 (L) 10/02/2024 MCV 90 10/02/2024 PLT 119 (L) 10/02/2024 Lab Results Component Value Date GLUCOSE 84 10/04/2024 CALCIUM 7.3 (L) 10/04/2024 NA 128 (L) 10/04/2024 K 3.8 10/04/2024 CO2 24 10/04/2024 CL 94 (L) 10/04/2024 BUN 31 (H) 10/04/2024 CREATININE 6.91 (H) 10/04/2024 Lab Results Component Value Date ALT 6 (L) 09/30/2024 AST 13 09/30/2024 ALKPHOS 42 09/30/2024 BILITOT 0.6 09/30/2024 Lab Results Component Value Date INR 1.0 12/07/2022 REVIEW OF IMAGING STUDIES XR Chest 1 View Narrative: CLINICAL INDICATION: discharge clearance TECHNIQUE: XR CHEST 1 VIEW COMPARISON: April 28, 2023 FINDINGS: Small pleural effusions versus pleural thickening, decreased since prior. Low lung volumes with bilateral atelectasis. No consolidation. No pneumothorax. Impression: Decreased pleural effusions. CRITICAL RESULT: No. COMMUNICATION: Per this written report. Drafted by Mundo Martins MD on 08/25/2023 12:16 PM Final report signed by Mundo Martins MD on 08/25/2023 12:18 PM REVIEW OF PROCEDURES Assessment and Plan: Aakash Fernandez is a [place] 64 y.o. male with past history of ESRD on HD MWF, T2DM, HTN, chronic HFrEF, PAD, HLD, IDD/dementia, depression/anxiety, insomnia, chronic HCV, DM foot ulcer c/b OM s/p bilateral transmetarsal amputation, and debility sent [place] [facility] [place] ED for medical evaluationafter refusing care. Declining functional status - Transferred to [place] [facility] [place] a week ago and since arrival refusing HD, to eat, participate, or take medications - sent to ED for medical evaluation and need for higher level of assist/unable to care for self/non-compliance - afebrile, VSS, no acute complaints PLAN - PT/OT consult re: placement - legal guardian is his brother, Chris Fernandez, #[phone] At high risk for falls - wheelchair dependent, fall precautions ESRD (end stage renal disease) on dialysis ([facility]) - HD (MWF) - renally dose meds based on EGFR - strict I/O, daily weight Electrolyte and fluid disorder Hyponatremia - switch lokelma daily to 10 mg on non-dialysis days - follow-up RFP, trend Na Chronic kidney disease-mineral and bone disorder (CKD-MBD) - continue Renvela 800 mg TID with meals Anemia in chronic kidney disease (CODE) - Hgb stable, transfuse to keep >7 - ferritin, iron studies Type 2 diabetes mellitus with chronic kidney disease on chronic dialysis ([facility]) - last A1c 6.3 PLAN - ACHS regular SSI - hold home glargine 5U at bedtime while trend glucose/PO intake Dementia ([facility]) - Delirium precautions - Psych recommended to restart Asenapine 3.8 mg daily (not on formulary his caregiver will bring some of his patches) Mild intellectual disabilities - last neuropsych exam in 2023 found to not have capacity, brother is legal guardian - continue Depakote Sprinkle 250 mg twice daily Anxiety and depression - continue sertraline 75 mg daily Insomnia, unspecified - continue trazodone 100 mg at bedtime, melatonin 3 mg at bedtime Essential (primary) hypertension - continue carvedilol 12.5 mg twice daily, nifedipine XL 30 mg daily (hold for BP <120/80 on dialysis days) Arterial insufficiency (CMS/HCC) - continue aspirin 81 mg daily, clopidogrel 75 mg daily Mixed hyperlipidemia - continue atorvastatin 40 mg at bedtime 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 - continue statin, ASA, clopidogrel as above Gastroesophageal reflux disease without esophagitis - continue daily PPI Sensorineural hearing loss, bilateral - complicates all aspects of care Wears hearing aid in both ears - not present with patient on admission Chronic combined systolic (congestive) and diastolic (congestive) heart failure (CMS/HCC) - ECHO 06/27/2022: EF 45%, abnormal diastolic dysfunction - strict I/O, 2 L fluid restriction, cardiac/renal/CCHO2 diet Chronic hepatitis C without hepatic coma (CMS/HCC) - HCV RNA PCR not detected 07/13/2023 History of transmetatarsal amputation of foot (CMS/HCC) - chronic OM 2/2 DM foot ulcers s/p bilateral transmetarsal amputation Inpatient Checklist: Inpatient checklist: - Bowel regimen: ducolax - Code status: Full Code - Diet: PO - DVT prophylaxis: heparin - Disposition: placement CODE STATUS: Full Code EMERGENCY CONTACT: Extended Emergency Contact Information Primary Emergency Contact: MiahChris Mobile Relation: Legal Guardian Preferred language: Kosovan Repair Operator needed? No Secondary Emergency Contact: Mariel Chavez Address: [address] [place] [address] of [facility] Mobile Relation: Lombardi Developer Repair Operator needed? No Leda Kelley MD Double Surface Operator Internal [facility] Pediatric[facility] Certified Strategy Execution Consultant Pager [phone] [1] Current Facility-Administered Medications: acetaminophen (Tylenol) tablet 650 mg, 650 mg, Oral, q6h PRN, Lala Valdes, MEDICAL ADMINISTRATIVE TECHNICIAN alteplase (Cathflo Activase) injection 4 mg, 4 mg, Intracatheter, PRN, Daphne Landry APRN, DNP aspirin chewable tablet 81 mg, 81 mg, Oral, Daily, Lala Valdes, MEDICAL ADMINISTRATIVE TECHNICIAN, 81 mg at 10/03/24 0819 atorvastatin (Lipitor) tablet 40 mg, 40 mg, Oral, Nightly, Lala Valdes MEDICAL ADMINISTRATIVE TECHNICIAN, 40 mg at 10/03/249 bisacodyl (Dulcolax) EC tablet 10 mg, 10 mg, Oral, Daily PRN, Lala Valdes, MEDICAL ADMINISTRATIVE TECHNICIAN cadexomer iodine (Iodosorb) 0.9 % gel, , Topical, Daily, Tana Wooten MD, Given at 10/03/24820 carvedilol (Coreg) tablet 12.5 mg, 12.5 mg, Oral, BID, Lala Valdes MEDICAL ADMINISTRATIVE TECHNICIAN, 12.5 mg at 10/03/242029 clopidogrel (Plavix) tablet 75 mg, 75 mg, Oral, Daily, Lala Valdes, MEDICAL ADMINISTRATIVE TECHNICIAN, 75 mg at 10/03/24 0819 glucose (Glutose) 40 % oral gel 15-30 grams of glucose, 15-30 grams of glucose, Sublingual, q15 minPRN OR dextrose 10 % (D10W) bolus 125 mL, 125 mL, Intravenous, q15 min PRN OR dextrose 10 %(D10W) bolus 250 mL, 250 mL, Intravenous, q15 min PRN OR glucagon (human recombinant) injection1 mg, 1 mg, Intramuscular, q15 min PRN, Lala Valdes, MEDICAL ADMINISTRATIVE TECHNICIAN divalproex sprinkle (Depakote Sprinkle) DR capsule 250 mg, 250 mg, Oral, BID, Lala Valdes, MEDICAL ADMINISTRATIVE TECHNICIAN,250 mg at 10/03/242029 heparin (porcine) injection 5,000 Units, 5,000 Units, Subcutaneous, q8h RAFAT, Lala Valdes MEDICAL ADMINISTRATIVE TECHNICIAN, 5,000 Units at 10/04/24 0532 insulin lispro (Admelog) 100 units/mL injection - Correction - Standard Dose, 0- 5 Units, Subcutaneous, TID with meals, Lala Valdes MEDICAL ADMINISTRATIVE TECHNICIAN, 1 Units at 10/02/24 1706 insulin lispro (Admelog) injection - Correction - Nighttime Dose, 0-3 Units, Subcutaneous, Twice atnight, Lala Valdes MEDICAL ADMINISTRATIVE TECHNICIAN melatonin tablet 3 mg, 3 mg, Oral, Nightly, Lala Valdes, MEDICAL ADMINISTRATIVE TECHNICIAN, 3 mg at 10/03/242029 mupirocin (Bactroban) 2 % ointment 1 Application, 1 Application, Each Nostril, BID, Tana Wooten MD, 1 Application at 10/03/242029 NIFEdipine XL (Procardia XL) 24 hr tablet 30 mg, 30 mg, Oral, Daily, Lala Valdes, MEDICAL ADMINISTRATIVE TECHNICIAN, 30 mg at10/03/24818 polyethylene glycol (Miralax) packet 17 g, 17 g, Oral, Daily, Lala Valdes, MEDICAL ADMINISTRATIVE TECHNICIAN, 17 g at 10/03/24818 sertraline (Zoloft) tablet 75 mg, 75 mg, Oral, Daily, Lala Valdes, MEDICAL ADMINISTRATIVE TECHNICIAN, 75 mg at 10/03/24818 Insert peripheral IV, , , Once AND Saline lock IV, , , Once AND sodium chloride 0.9 % flush10 mL, 10 mL, Intravenous, q12h, 10 mL at 10/03/242030 AND sodium chloride 0.9 % flush 10 mL, 10 mL, Intravenous, PRN, Lala Valdes B, MEDICAL ADMINISTRATIVE TECHNICIAN sodium citrate anticoagulant 4 % flush 6 mL, 6 mL, Intracatheter, PRN, Daphne Landry APRN, DNP traZODone (Desyrel) tablet 100 mg, 100 mg, Oral, Nightly, Lala Valdes B, MEDICAL ADMINISTRATIVE TECHNICIAN, 100 mg at 10/03/242029 Facility-Administered Medications Ordered in Other Encounters: lidocaine-EPINEPHrine (PF) (Xylocaine W/EPI) 1 %-1:780026 injection - Pyxis Override Pull, , , , lidocaine-EPINEPHrine (PF) (Xylocaine W/EPI) 1 %-1:606347 injection - Pyxis Override Pull, , , , [2] No Known Allergies * Progress Notes - Donny Tovar MD - 10/04/2024 11:18 AM EDT Hemodialysis Procedure Note Chief Compliant/reason for consult: ESRD on dialysis HPI: No acute events overnight. Seen and examined on dialysis. Tolerating well. Physical Exam: Visit Vitals BP 133/54 Pulse 62 Temp 36.4 ??C (97.5 ??F) (Oral) Resp 16 Ht 1.778 m (5' 10 ) Wt 74.6 kg (164 lb 7.4 oz) SpO2 97% BMI 23.60 kg/m?? Smoking Status Never BSA 1.92 m?? GA: NAD, on dialysis Resp: Normal respiratory effort CV: Trace BLE edema Dialysis Access: AVF RUE accessed for dialysis No intake or output data in the 24 hours ending 10/04/24 1118 Current Medications: reviewed Current Scheduled Medications[1] Current Continuous Medications[2] Current PRN Medications[3] Laboratory Results Results from last 7 days Lab Units 10/02/24 0536 09/30/24 1650 WBC 10*3/uL 7.44 8.92 HEMOGLOBIN g/dL 10.4* 10.4* HEMATOCRIT % 29.8* 29.8* MCV fL 90 91 PLATELETS 10*3/uL 119* 121* Results from last 7 days Lab Units 10/04/24 0420 10/03/24 0321 SODIUM mmol/L 128* 131* POTASSIUM mmol/L 3.8 3.9 CHLORIDE mmol/L 94* 96* CO2 mmol/L 24 26 BUN mg/dL 31* 24* CREATININE mg/dL 6.91* 5.69* CALCIUM mg/dL 7.3* 7.2* PHOSPHORUS mg/dL 3.5 3.0 MAGNESIUM mg/dL 1.7* 1.8* Assessment: - ESRD on Hemodialysis - Disorders of fluid, electrolytes and acid-base balance - Hypervolemia in renal insufficiency - Renal osteodystrophy - Anemia in ESRD - Intellectual Delay Plan: - HD today. Continue MWF schedule while inpatient. - Will ultrafiltrate as tolerated on dialysis - Will adjust dialysate composition to help maintaining normal electrolytes and acid base balance - Will follow for ANGELITA requirements; Hgb at goal - Will follow for Phos binder requirements - Daily weight - Renal diet - Renally dose medications for HD - I saw and evaluated the patient during dialysis treatment. Currently patient is tolerating treatment with stable hemodynamics. Dialysis flowsheet, dialysis bath and machine settings reviewed. No issues with current flow settings and access flows are acceptable. BFR 300-400 ml/min, DFR 600-800 ml/min, 3.5K / 2.5Ca / 32 bicarb. UF 1L as tolerated. Please see dialysis flowsheet for treatment's details. Dialysis Medications sodium citrate anticoagulant 4 % flush 6 mL 6 mL, Intracatheter, Every visit, As needed alteplase (Cathflo Activase) injection 4 mg 4 mg, Intracatheter, Every visit, As needed Dialysis Treatment Hemodialysis inpatient 3 hr (180 min); Revaclear 400; 35.5; 3.5; 2.5; 136; 32; 1; Remove UF as tolerated; 300-400; 2X Blood Flow Rate; Adult; AV Fistula; 15 ga Once Every visit, Once Duration of Treatment: 3 hr (180 min) Dialyzer: Revaclear 400 Dialysate Temperature (Centigrade): 35.5 Dialysate: Potassium (mEq/L): 3.5 Dialysate: Calcium (mEq/L): 2.5 Dialysate: Sodium (mEq/L): 136 Dialysate: Bicarb (mEq/L): 32 Net fluid removal (Ultrafiltration) (L): 1 As tolerated: Remove UF as tolerated BFR (mL/min): 300-400 Dialysate Flow Rate (mL/min): 2X Blood Flow Rate Tubing: Adult Access Site: AV Fistula Needle Size: 15 ga Nursing general assessments and interventions Every visit, Once Labs Hepatitis B Surface Antibody, Quantitative Every 28 days, Once [facility] to [facility] in [facility]: Immediate Hepatitis panel, acute Every 28 days, Once Release to patient in MyChart: Immediate Zechariah Tovar MD Nephrology [1] aspirin, 81 mg, Oral, Daily atorvastatin, 40 mg, Oral, Nightly cadexomer iodine, , Topical, Daily carvedilol, 12.5 mg, Oral, BID clopidogrel, 75 mg, Oral, Daily divalproex sprinkle, 250 mg, Oral, BID heparin (porcine), 5,000 Units, Subcutaneous, q8h RAFAT insulin lispro, 0-5 Units, Subcutaneous, TID with meals insulin lispro, 0-3 Units, Subcutaneous, Twice at night melatonin, 3 mg, Oral, Nightly mupirocin, 1 Application, Each Nostril, BID NIFEdipine XL, 30 mg, Oral, Daily polyethylene glycol, 17 g, Oral, Daily sertraline, 75 mg, Oral, Daily sodium chloride, 10 mL, Intravenous, q12h traZODone, 100 mg, Oral, Nightly [2] [3] PRN medications: acetaminophen, alteplase, bisacodyl, glucose OR dextrose 10 % OR dextrose 10 % OR glucagon (human recombinant), Insert peripheral IV AND Saline lock IV AND sodium chloride AND sodium chloride, sodium citrate anticoagulant * Care Plan - Shakira Olsen RN - 10/04/2024 1:27 AM EDT Problem: Adult Inpatient Plan of Care Goal: Plan of Care Review Outcome: Ongoing, Progressing Flowsheets (Taken 10/04/2024121) Progress: improving Plan of Care Reviewed With: patient Goal: Patient-Specific Goal (Individualized) Outcome: Ongoing, Progressing Flowsheets (Taken 10/03/20241999) Patient/Family-Specific Goals (Include Timeframe): Pt will be free from fall or injury during the shift. Individualized Care Needs: safety, dialysis Anxieties, Fears or Concerns: none stated Problem: Skin Injury Risk Increased Goal: Skin Health and Integrity Outcome: Ongoing, Progressing Intervention: Optimize Skin Protection Flowsheets (Taken 10/04/2024121) Activity Management: activity adjusted per tolerance Pressure Reduction Techniques: heels elevated off bed frequent weight shift encouraged Skin Protection: incontinence pads utilized transparent dressing maintained Head of Bed (HOB) Positioning: HOB at 20-30 degrees Problem: Fall Injury Risk Goal: Absence of Fall and Fall-Related Injury Outcome: Ongoing, Progressing Intervention: Identify and Manage Contributors Flowsheets (Taken 10/04/2024121) Medication Review/Management: medications reviewed Self-Care Promotion: independence encouraged Problem: Wound Goal: Absence of Infection Signs and Symptoms Outcome: Ongoing, Progressing Intervention: Prevent or Manage Infection Flowsheets (Taken 10/04/2024 0122) Infection Management: aseptic technique maintained Isolation Precautions: protective Goal: Skin Health and Integrity Outcome: Ongoing, Progressing Intervention: Optimize Skin Protection Flowsheets (Taken 10/04/2024 012) Activity Management: activity adjusted per tolerance Pressure Reduction Techniques: heels elevated off bed frequent weight shift encouraged Skin Protection: adhesive use limited frequent weight shift encouraged Head of Bed (HOB) Positioning: HOB at 20-30 degrees Goal: Optimal Wound Healing Outcome: Ongoing, Progressing Intervention: Promote Wound Healing Flowsheets (Taken 10/04/2024 012) Sleep/Rest Enhancement: awakenings minimized noise level reduced room darkened Problem: Hemodialysis Goal: Safe, Effective Therapy Delivery Outcome: Ongoing, Progressing Intervention: Optimize Device Care and Function Flowsheets (Taken 10/04/2024 012) Medication Review/Management: medications reviewed Goal: Absence of Infection Signs and Symptoms Outcome: Ongoing, Progressing Intervention: Prevent or Manage Infection Flowsheets (Taken 10/04/2024 012) Infection Management: aseptic technique maintained Infection Prevention: hand hygiene promoted single patient room provided Problem: Self-Care Deficit Goal: Improved Ability to Complete Activities of Daily Living Outcome: Ongoing, Progressing Intervention: Promote Activity and Functional [place] Flowsheets (Taken 10/04/2024 012) Activity Assistance Provided: assistance, 2 people Self-Care Promotion: independence encouraged Problem: Infection Goal: Absence of Infection Signs and Symptoms Outcome: Ongoing, Progressing Intervention: Prevent or Manage Infection Flowsheets (Taken 10/04/2024 012) Infection Management: aseptic technique maintained Isolation Precautions: protective * Care Plan - Indy Liao RN - 10/03/2024 1:10 PM EDT Problem: Adult Inpatient Plan of Care Goal: Plan of Care Review Outcome: Ongoing, Progressing Flowsheets (Taken 10/03/2024 1307) Progress: improving Plan of Care Reviewed With: patient Goal: Patient-Specific Goal (Individualized) Outcome: Ongoing, Progressing Flowsheets (Taken 10/03/2024 0800) Patient/Family-Specific Goals (Include Timeframe): Patient will be free from harm throughout this shift Individualized Care Needs: Safety Anxieties, Fears or Concerns: N/a Goal: Absence of Hospital-Acquired Illness or Injury Outcome: Ongoing, Progressing Intervention: Identify and Manage Fall Risk Flowsheets (Taken 10/03/2024 0800) Safety Promotion/Fall Prevention: activity supervised assistive device/personal items within reach clutter-free environment maintained fall prevention program maintained nonskid shoes/slippers when out of bed room organization consistent safety round/check completed Intervention: Prevent Skin Injury Flowsheets Taken 10/03/2024 1307 Skin Protection: incontinence pads utilized Taken 10/03/2024 0800 Body Position: refused by patient education provided Intervention: Prevent and Manage VTE (Venous Thromboembolism) Risk Flowsheets (Taken 10/03/2024 1307) VTE Prevention/Management: medication Intervention: Prevent Infection Flowsheets (Taken 10/02/2024 175) Infection Prevention: hand hygiene promoted Goal: Optimal Comfort and Wellbeing Outcome: Ongoing, Progressing Intervention: Monitor Pain and Promote Comfort Flowsheets (Taken 10/02/2024 175) Pain Management Interventions: declines Intervention: Provide Person-Centered Care Flowsheets (Taken 10/02/2024 175) Trust Relationship/Rapport: care explained Goal: Readiness for Transition of Care Outcome: Ongoing, Progressing Intervention: Mutually Develop Transition Plan Flowsheets (Taken 10/03/2024 1307) Anticipated Changes Related to Illness: inability to care for self Concerns to be Addressed: cognitive/perceptual * Progress Notes - Clau Vo RN - 10/03/2024 1:03 PM EDT Case Management Adult Progress Note Mundo Fernandez 64 y.o. male CSN: [id number] Admission: 09/30/2024 3:29 PM Primary Problem: Declining functional status Anticipated Discharge Date: TBD Has Discharge Plans Changed? No Additional Comments POC discussed with medical team, patient is medically ready for discharge pending discharge plan. RUKHSANA called patients legal guardian Chris, however no answer and unable to leave voicemail. RUKHSANA spoke with patients caregiver Mariel who verified guardians phone number and states he is out of town and will be back tomorrow to discuss. Per Mariel, patient is unable to come back to her home as SCL waiver has and she feels patient is more appropriate for SNF. Patient was [facility] at [facility] for over a year for LTC. CM will call guardian tomorrow to discuss dc plan. CM will continue to follow and will remain available via secure chat to assist as needed. Clau Vo RN * Progress Notes - Leda Gaitan MD - 10/03/2024 8:38 AM EDT Images from the original note were not included. [facility] Inpatient Progress Note Patient: Mundo Fernandez PCP: Leonard Botello MD Date: 10/03/2024 Subjective Was not interactive with me today. We are still trying to get rafael with his brother (guardian) to determine placement Review of Systems Unable to perform ROS: Psychiatric disorder Objective INPATENT MEDICATIONS Current Medications[1] ALLERGIES Allergies[2] 24 HOUR VITALS Temp: [36.2 ??C (97.2 ??F)-36.6 ??C (97.8 ??F)] 36.2 ??C (97.2 ??F) Heart Rate: [58-70] 68 Resp: [16] 16 BP: (132-190)/(58-89) 132/67 INTAKE/OUTPUT Intake/Output Summary (Last 24 hours) at 10/03/2024 0838 Last data filed at 10/02/2024 2000 Gross per 24 hour Intake 540 ml Output 1300 ml Net -760 ml Physical Exam Constitutional: General: He is not in acute distress. Appearance: He is normal weight. He is not toxic-appearing. HENT: Head: Normocephalic. Right Ear: External ear normal. Left Ear: External ear normal. Nose: Nose normal. Mouth/Throat: Mouth: Mucous membranes are moist. Eyes: General: Right eye: No discharge. Left eye: No discharge. Extraocular Movements: Extraocular movements intact. Pupils: Pupils are equal, round, and reactive to light. Cardiovascular: Rate and Rhythm: Normal rate and regular rhythm. Pulmonary: Effort: Pulmonary effort is normal. Breath sounds: Normal breath sounds. Abdominal: General: Abdomen is flat. There is no distension. Musculoskeletal: General: No swelling, deformity or signs of injury. Cervical back: Normal range of motion and neck supple. Skin: General: Skin is warm. Findings: No lesion. Neurological: Mental Status: He is alert. Psychiatric: Attention and Perception: He is inattentive. Mood and Affect: Affect is inappropriate. Cognition and Memory: Cognition is impaired. Memory is impaired. Judgment: Judgment is impulsive. REVIEW OF LABORATORY DATA Lab Results Component Value Date WBC 7.44 10/02/2024 HGB 10.4 (L) 10/02/2024 HCT 29.8 (L) 10/02/2024 MCV 90 10/02/2024 PLT 119 (L) 10/02/2024 Lab Results Component Value Date GLUCOSE 119 (H) 10/03/2024 CALCIUM 7.2 (L) 10/03/2024 NA 131 (L) 10/03/2024 K 3.9 10/03/2024 CO2 26 10/03/2024 CL 96 (L) 10/03/2024 BUN 24 (H) 10/03/2024 CREATININE 5.69 (H) 10/03/2024 Lab Results Component Value Date ALT 6 (L) 09/30/2024 AST 13 09/30/2024 ALKPHOS 42 09/30/2024 BILITOT 0.6 09/30/2024 Lab Results Component Value Date INR 1.0 12/07/2022 REVIEW OF IMAGING STUDIES XR Chest 1 View Narrative: CLINICAL INDICATION: discharge clearance TECHNIQUE: XR CHEST 1 VIEW COMPARISON: April 28, 2023 FINDINGS: Small pleural effusions versus pleural thickening, decreased since prior. Low lung volumes with bilateral atelectasis. No consolidation. No pneumothorax. Impression: Decreased pleural effusions. CRITICAL RESULT: No. COMMUNICATION: Per this written report. Drafted by Mundo Martins MD on 08/25/2023 12:16 PM Final report signed by Mundo Martins MD on 08/25/2023 12:18 PM REVIEW OF PROCEDURES Assessment and Plan: Aakash Fernandez is a [place] 64 y.o. male with past history of ESRD on HD MWF, T2DM, HTN, chronic HFrEF, PAD, HLD, IDD/dementia, depression/anxiety, insomnia, chronic HCV, DM foot ulcer c/b OM s/p bilateral transmetarsal amputation, and debility sent [place] [facility] to ED for medical evaluationafter refusing care. Declining functional status - Transferred to [place] [facility] a week ago and since arrival refusing HD, to eat, participate, or take medications - sent to ED for medical evaluation and need for higher level of assist/unable to care for self/non-compliance - afebrile, VSS, no acute complaints PLAN - PT/OT consult re: placement - legal guardian is his brother, Chris Fernandez, #[phone] At high risk for falls - wheelchair dependent, fall precautions ESRD (end stage renal disease) on dialysis ([facility]) - Missed HD (MWF) , last session 3 days ago (09/27/2024) via RUE AVF - renally dose meds based on EGFR - strict I/O, daily weight - consulted Nephrology dialysis today Electrolyte and fluid disorder Hyponatremia - switch lokelma daily to 10 mg on non-dialysis days - follow-up RFP, trend Na Chronic kidney disease-mineral and bone disorder (CKD-MBD) - continue Renvela 800 mg TID with meals Anemia in chronic kidney disease (CODE) - Hgb stable, transfuse to keep >7 - ferritin, iron studies Type 2 diabetes mellitus with chronic kidney disease on chronic dialysis ([facility]) - last A1c 4.8% over a year ago - presenting glucose 185, repeat A1c pending PLAN - [facility] regular SSI - hold home glargine 5U at bedtime while trend glucose/PO intake Dementia ([facility]) - Delirium precautions - Psych recommended to restart Asenapine 3.8 mg daily (not on formulary his caregiver will bring some of his patches) Mild intellectual disabilities - last neuropsych exam in 2023 found to not have capacity, brother is legal guardian - continue Depakote Sprinkle 250 mg twice daily Anxiety and depression - continue sertraline 75 mg daily Insomnia, unspecified - continue trazodone 100 mg at bedtime, melatonin 3 mg at bedtime Essential (primary) hypertension - continue carvedilol 12.5 mg twice daily, nifedipine XL 30 mg daily (hold for BP <120/80 on dialysis days) Arterial insufficiency ([facility]) - continue aspirin 81 mg daily, clopidogrel 75 mg daily Mixed hyperlipidemia - continue atorvastatin 40 mg at bedtime 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 - continue statin, ASA, clopidogrel as above Gastroesophageal reflux disease without esophagitis - continue daily PPI Sensorineural hearing loss, bilateral - complicates all aspects of care Wears hearing aid in both ears - not present with patient on admission Chronic combined systolic (congestive) and diastolic (congestive) heart failure (CMS/HCC) - ECHO 06/27/2022: EF 45%, abnormal diastolic dysfunction - strict I/O, 2 L fluid restriction, cardiac/renal/CCHO2 diet Chronic hepatitis C without hepatic coma (CMS/HCC) - HCV RNA PCR not detected 07/13/2023 History of transmetatarsal amputation of foot (CMS/HCC) - chronic OM 2/2 DM foot ulcers s/p bilateral transmetarsal amputation Inpatient Checklist: Inpatient checklist: - Bowel regimen: ducolax - Code status: Full Code - Diet: PO - DVT prophylaxis: heparin - Disposition: placement CODE STATUS: Full Code EMERGENCY CONTACT: Extended Emergency Contact Information Primary Emergency Contact: Chris Fernandez Mobile Relation: Legal Guardian Preferred language: Kosovan Repair Operator needed? No Secondary Emergency Contact: Mariel Chavez Address: [address] [place] [address] Mobile Relation: [place] Developer Repair Operator needed? No Leda Kelley MD Double Surface Operator Internal [facility] Pediatric[facility] Certified Strategy Execution Consultant Pager [phone] [1] Current Facility-Administered Medications: acetaminophen (Tylenol) tablet 650 mg, 650 mg, Oral, q6h PRN, Lala Valdes B, MEDICAL ADMINISTRATIVE TECHNICIAN aspirin chewable tablet 81 mg, 81 mg, Oral, Daily, Laith Valdesana B, MEDICAL ADMINISTRATIVE TECHNICIAN, 81 mg at 10/03/24 0819 atorvastatin (Lipitor) tablet 40 mg, 40 mg, Oral, Nightly, Lala Valdes B, MEDICAL ADMINISTRATIVE TECHNICIAN, 40 mg at 10/02/242056 bisacodyl (Dulcolax) EC tablet 10 mg, 10 mg, Oral, Daily PRN, Lala Valdes B, MEDICAL ADMINISTRATIVE TECHNICIAN cadexomer iodine (Iodosorb) 0.9 % gel, , Topical, Daily, Tana Wooten MD, Given at 10/03/24 0821 carvedilol (Coreg) tablet 12.5 mg, 12.5 mg, Oral, BID, Lala Valdes MEDICAL ADMINISTRATIVE TECHNICIAN, 12.5 mg at 10/03/24 0819 clopidogrel (Plavix) tablet 75 mg, 75 mg, Oral, Daily, Lala Valdes, MEDICAL ADMINISTRATIVE TECHNICIAN, 75 mg at 10/03/24 08 glucose (Glutose) 40 % oral gel 15-30 grams of glucose, 15-30 grams of glucose, Sublingual, q15 minPRN OR dextrose 10 % (D10W) bolus 125 mL, 125 mL, Intravenous, q15 min PRN OR dextrose 10 %(D10W) bolus 250 mL, 250 mL, Intravenous, q15 min PRN OR glucagon (human recombinant) injection1 mg, 1 mg, Intramuscular, q15 min PRN, Lala Valdes MEDICAL ADMINISTRATIVE TECHNICIAN divalproex sprinkle (Depakote Sprinkle) DR capsule 250 mg, 250 mg, Oral, BID, Lala Valdes, MEDICAL ADMINISTRATIVE TECHNICIAN,250 mg at 10/03/24 08 heparin (porcine) injection 5,000 Units, 5,000 Units, Subcutaneous, q8h RAFAT, Lala Valdes MEDICAL ADMINISTRATIVE TECHNICIAN, 5,000 Units at 10/03/24 0543 insulin lispro (Admelog) 100 units/mL injection - Correction - Standard Dose, 0- 5 Units, Subcutaneous, TID with meals, Lala Valdes MEDICAL ADMINISTRATIVE TECHNICIAN, 1 Units at 10/02/24 1706 insulin lispro (Admelog) injection - Correction - Nighttime Dose, 0-3 Units, Subcutaneous, Twice atnight, Lala Valdes APRN melatonin tablet 3 mg, 3 mg, Oral, Nightly, Lala Valdes, MEDICAL ADMINISTRATIVE TECHNICIAN, 3 mg at 10/02/242056 mupirocin (Bactroban) 2 % ointment 1 Application, 1 Application, Each Nostril, BID, Tana Wooten MD, 1 Application at 10/03/24818 NIFEdipine XL (Procardia XL) 24 hr tablet 30 mg, 30 mg, Oral, Daily, Lala Valdes, MEDICAL ADMINISTRATIVE TECHNICIAN, 30 mg at10/03/24 0819 polyethylene glycol (Miralax) packet 17 g, 17 g, Oral, Daily, Lala Valdes, MEDICAL ADMINISTRATIVE TECHNICIAN, 17 g at 10/03/24 08 sertraline (Zoloft) tablet 75 mg, 75 mg, Oral, Daily, Lucio, Gitana B, MEDICAL ADMINISTRATIVE TECHNICIAN, 75 mg at 10/03/24818 Insert peripheral IV, , , Once AND Saline lock IV, , , Once AND sodium chloride 0.9 % flush10 mL, 10 mL, Intravenous, q12h, 10 mL at 10/03/24818 AND sodium chloride 0.9 % flush 10 mL, 10 mL, Intravenous, PRN, Lucio, Gitana B, MEDICAL ADMINISTRATIVE TECHNICIAN traZODone (Desyrel) tablet 100 mg, 100 mg, Oral, Nightly, Lucio, Gitana B, MEDICAL ADMINISTRATIVE TECHNICIAN, 100 mg at 10/02/242056 Facility-Administered Medications Ordered in Other Encounters: lidocaine-EPINEPHrine (PF) (Xylocaine W/EPI) 1 %-1:321561 injection - Pyxis Override Pull, , , , lidocaine-EPINEPHrine (PF) (Xylocaine W/EPI) 1 %-1:063288 injection - Pyxis Override Pull, , , , [2] No Known Allergies * Consults - Brooke Gallardo MD - 10/03/2024 8:38 AM EDTAssociated Order(s): Inpatient consult to Psychiatry Images from the original note were not included. Initial Psychiatry Evaluation 10/03/24 Inpatient consult to Psychiatry Consult performed by: Brooke Gallardo MD Consult ordered by: Leda Gaitan MD Chief Complaint: medication recommendations Subjective Patient is a 64 y.o. male with a reported history of ESRD, AUD, CHF, HLD, DM type 2, chronic osteomyelitis, IDD/dementia, anxiety, and depression who initially presented to [facility] from [place] [facility] with worsening foot wounds, lack of medication adherence, and limited participation in care. Psychiatry was consulted for medication recommendations. Of note, patient is incredibly hard of hearing, and as such, history was limited. Majority of history obtained from collateral or via chart review. Per patient's primary nurse, patient was tearful in his room yesterday after receiving dialysis, but unclear why. Per chart review, patient was been adherent with medications while in the hospital. Stressors: unable to assess Supports: unable to assess Access to lethal weapons: unable to assess Reasons to live: unable to assess Collateral: Collateral obtained from ED as follows: (from Mariel, caregiver at [place] [facility], ) She states that the patient has been in a correction for the last year with a high level of assist. One week ago he was transferred from the correction to her [place] [facility] under her groups care. She says since he has been there, he has been refusing to take his medications, refusing dialysis, refusing to participate or eat. He did miss dialysis on 09/30, and his last dialysis at time of presentation was on Wednesday 09/27. His care facility believes he needs higher level of assistance and so they sent him to the ED to be admitted for placement. She says he has no new complaints or concerns other than that his brother, listed in chart is his POA. Spoke with brother Chris by phone. Chris reports that patient had been living at a correction until about 2 weeks ago. While he was at the correction, they had concerns about the care he was receiving. They moved him to a [place] [facility] with the hope that this would be happier environment for him. Since he moved to the [place] [facility], he has not been taking his medications. Chris notes that the patient was prescribed transdermal asenapine due to prior concern with oral medication adherence. Reports that at baseline, the patient is generally able to engage in conversation, though even with family members his severe hearing loss limits communication. Psychiatric Review Of Systems: Unable to assess due to patient's inability to participate meaningfully in interview Past Psychiatric History: *obtained via chart review Diagnoses: anxiety and depression Medications: Depakote 250 mg BID, Zoloft 75 mg, Trazodone 100 mg, Asenapine 3.8 mg/24 hr patch Outpatient: meds most recently prescribed by Debbie Newberry NP at [facility] in [place] and Jt Fowler MD in [place]. Inpatient: unable to assess due Previous suicide attempts: unable to assess Past trauma history: unable to assess Past Medical History[1] Allergies[2] Family History: Psychiatric Diagnoses: unable to assess Suicides: unable to assess Social History: Education: Unknown Current living situation: Most recently was living in [place] [facility] Family: Relatives listed upon chart review include sister, brother, and nephew. Brother is legal guardian Romantic relationship: unable to assess Employment: unable to assess Legal history: unable to assess Support system: Caregiver, brother (POA) and [id number] Substance use History: Tobacco Use: unable to assess Alcohol Use: unable to assess current use. Patient has documentation of AUD History of complicated withdrawal: N/A Recreational Drug Use: RODERICK Medical Review Of Systems: Limited due to inability to engage in interview Objective Visit Vitals BP 132/67 Pulse 68 Temp (!) 36.2 ??C (97.2 ??F) Resp 16 Ht 1.778 m (5' 10 ) Wt 74.1 kg (163 lb 5.8 oz) SpO2 97% BMI 23.44 kg/m?? Smoking Status Never BSA 1.91 m?? Mental Status Evaluation: Appearance: appears stated age, wearing hospital attire, disheveled, fair hygiene Attitude: cooperative, ambivalent towards treatment, unable to cooperate with interview due to hearing difficulty Eye Contact: appropriate Speech: appropriate rate and volume, non-pressured Involuntary Movements: absent Psychomotor Activity: no significant depression or agitation Level of Consciousness: alert and attentive Memory: unable to assess Mood: good Affect: congruent with stated mood, full range Thought Process: unable to assess Thought Content: not responding to internal stimuli AVH: unable to assess SI: unable to assess HI: denied, unable to assess Insight: poor Judgment: fair Physical Exam: General: alert, no acute distress Eyes: extraocular movements intact, conjunctivae clear ENT: external ears normal, oropharynx clear, moist mucus membranes Lungs: no apparent respiratory distress Extremities: no clubbing, edema, or cyanosis Skin: warm and well perfused, no rashes or lesions noted over exposed skin Neuro: moving all 4 extremities spontaneously Data: Recent Results (from the past 24 hours) PTH, intact Collection Time: 10/02/24 9:58 AM Result Value Ref Range PTH Intact Total 9 9 - 77 pg/mL POCT glucose meter Collection Time: 10/02/24 11:55 AM Result Value Ref Range POCT Glucose 108 (H) 74 - 99 mg/dL Comment Cuff Setter Overlock ID Viridiana Pichardo Device ID [id number] Specimen Type POC Capillary POCT glucose meter Collection Time: 10/02/24 4:43 PM Result Value Ref Range POCT Glucose 172 (H) 74 - 99 mg/dL Comment Cuff Setter Overlock ID Viridiana Pichardo Device ID [id number] Specimen Type POC Capillary POCT glucose meter Collection Time: 10/02/24 9:06 PM Result Value Ref Range POCT Glucose 143 (H) 74 - 99 mg/dL Comment Cuff Setter Overlock ID Ashia Daniels Device ID [id number] Specimen Type POC Capillary Renal Function Panel, Plasma Collection Time: 10/03/24 3:21 AM Result Value Ref Range Glucose, Plasma 119 (H) 74 - 99 mg/dL BUN, Plasma 24 (H) 8 - 23 mg/dL Creatinine, Plasma 5.69 (H) 0.70 - 1.20 mg/dL BUN/Creatinine Ratio 4 Sodium, Plasma 131 (L) 136 - 145 mmol/L Potassium, Plasma 3.9 3.6 - 4.9 mmol/L Chloride, Plasma 96 (L) 97 - 107 mmol/L CO2, Plasma 26 22 - 29 mmol/L Anion Gap 9 6 - 16 mmol/L Total Calcium, Plasma 7.2 (L) 8.9 - 10.2 mg/dL Phosphorus, Plasma 3.0 2.5 - 4.5 mg/dL Albumin, Plasma 3.2 (L) 3.5 - 5.2 g/dL eGFRcr 10.3 mL/min/1.73m*2 Magnesium, Plasma Collection Time: 10/03/24 3:21 AM Result Value Ref Range Magnesium, Plasma 1.8 (L) 1.9 - 2.4 mg/dL POCT glucose meter Collection Time: 10/03/24 8:12 AM Result Value Ref Range POCT Glucose 110 (H) 74 - 99 mg/dL Comment Cuff Setter Overlock ID Precious Thomason Device ID [id number] Specimen Type POC Capillary ANTIPSYCHOTIC MONITORING TOOL Current antipsychotic(s): Asenapine Glucose parameters: Lab Results Component Value Date HGBA1C 6.3 (H) 09/30/2024 Lab Results Component Value Date GLUCOSE 119 (H) 10/03/2024 GLUCOSE 95 10/02/2024 Concern for diabetes? Yes Lipid parameters: Lab Results Component Value Date CHOL 156 03/14/2018 HDL 34 03/14/2018 LDLCALC 100 03/14/2018 TRIG 112 03/14/2018 Fasting lipid panel? unknown Current antidiabetic: SSI Current antilipemic: atorvastatin 40 mg Blood pressure parameters: BP REVIEW BP (ultimate) 10/03/2024 7:52 AM 132/67 10/03/2024 3:15 AM 154/69 10/03/2024 12:46 AM 170/75 10/02/2024 9:06 PM 178/76 Concern for hypertension? Yes Weight parameters: Height: 177.8 cm (5' 10 ) Height Method: (from previous data) Weight: 74.1 kg (163 lb 5.8 oz) Weight Method: Bed scale BMI (Calculated): 23.44 Current antihypertensive: carvedilol 12.5 mg BID, nifedipine 30 mg QTc: 464 EKG Date/Time: 09/30/24 1609 Patient is aged 40-75y with diagnosis of diabetes mellitus, therefore 10-year ASCVD risk calculated below: The ASCVD Risk score (Nuris ANDRADE, et al., 2019) failed to calculate for the following reasons: Risk score cannot be calculated because patient has a medical history suggesting prior/existing ASCVD Patient is already treated with appropriate antilipemic agent. Clinical indication for treatment of metabolic concerns pertaining to ongoing antipsychotic use wasdiscussed amongst treatment team including attending physician and clinical pharmacist. Further recommendations discussed in assessment/plan below. Assessment/Plan Diagnoses: IDD Risk Assessment: Patient IS NOT currently at an acutely elevated risk of harm to self or others given lack of SI/HI.Patient IS NOT demonstrating ANY suicidal intent, DOES appear to be able to control impulsivity, and IS NOT exhibiting any psychiatric symptom burden impacting safety/daily functioning. It should be noted that this patient is at a chronically elevated risk at baseline due to the following exhibited risk factors NOT modifiable by hospitalization demonstrated in their history: historyof psychiatric disorder, unemployed or unskilled, and chronic medical/physical illness. The patientdoes, however, exhibit the following strengths/protective factors: calm/cooperative, access to housing. No risk factors modifiable by psychiatric hospitalization were identified on evaluation. Involuntary hospitalization on a 72 hour hold for safety, further psychiatric evaluation, and crisis stabilization IS NOT currently indicated. Patient IS NOT holdable under KRS A as he DOES NOT meet ALL hold criteria: having a mental illness, being an acute risk of harm to self or others, reasonable expectation of benefit from admission, AND inpatient being least restrictive means of treatment. Formulation: Mundo Fernandez is a 64 y.o. male with a PMHx of ESRD, AUD, CHF, bilateral sensorineural hearing loss, HLD, DM type 2, chronic OM requiring bilateral transmetatarsal amputation and reported psychiatric hx of IDD/dementia, anxiety, and depression who presented to [facility] ED from facility ([place] [facility]) with concerns of non-adherence to medication regimen and refusing dialysis and admitted 09/30/2024 to Internal Medicine for continued management of medical comorbidities/dialysis while awaiting placement at an appropriate long-term care facility. Psychiatry was consulted for medication recommendations regarding 3.8 mg/24 hr Asenapine patch (not readily available on formulary). Most likely diagnosis is IDD as documented previously. Recommendations: - Continue transdermal asenapine (patch) 3.8 mg daily. Per patient's family, patient has history oflimited adherence to oral medications and symptoms have been stable on this regimen outpatient. - Pharmacy assisting with obtaining patient's home supply of medication while order for medication can be placed for inpatient continuation - Continue sertraline 75 mg daily - Continue Depakote sprinkles 250 mg BID - Continue trazodone 100 mg at bedtime Psychiatry will sign off at this time Recommendations were also directly communicated to first call physician/provider: Dr. Kelley via [email or web address] chat Berto Mendez, MS3 I saw and evaluated the patient with the medical student. I discussed the case with the medical student and agree with the findings and plan as documented. I personally performed the Exam and MedicalDecision Making. Brooke Gallardo MD PGY-3, Internal Medicine/Psychiatry This patient was staffed with and seen by attending psychiatrist, Dr. Webb, who agrees with the assessment and plan. Note to patient: The 21st Century Cures Act makes medical notes like these available to patients inthe interest of transparency. However, be advised this is a medical document. It is intended as peer to peer communication. It is written in medical language and may contain abbreviations or verbiagethat are unfamiliar. It may appear blunt or direct. Medical documents are intended to carry relevant information, facts as evident, and the clinical opinion of the practitioner. [1] Past Medical History: Diagnosis Date Alcohol use disorder in remission Anemia in chronic kidney disease (CODE) 04/30/2023 Anxiety Arterial insufficiency (CMS/HCC) 05/18/2021 Benign prostatic hyperplasia Central line-associated bloodstream infection 06/29/2022 Chronic combined systolic (congestive) and diastolic (congestive) heart failure ([facility]) 02/18/2022 Chronic hepatitis C without hepatic coma ([facility]) 06/03/2014 Dementia ([facility]) 02/18/2022 Depression Diabetic peripheral neuropathy ([facility]) ESRD (end stage renal disease) on dialysis ([facility]) 09/16/2021 Essential hypertension 11/23/2011 GERD (gastroesophageal reflux disease) Hemorrhoids Hyperlipidemia Hypoparathyroidism 11/23/2011 Infection of AV graft for dialysis ([facility]) 02/18/2022 Added automatically from request for surgery [id number] Insomnia, unspecified 12/22/2021 Methicillin resistant Staphylococcus aureus infection, unspecified site Mild intellectual disabilities 08/30/2019 MSSA bacteremia 03/04/2022 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 06/07/2024 Sensorineural hearing loss, bilateral 01/11/2018 Type 2 diabetes mellitus [2] No Known Allergies Cosigned by Yeny Webb DO at 10/04/2024 7:52 AM EDT Associated attestation - Yeny Webb DO - 10/04/2024 7:52 AM EDT I saw and evaluated the patient with the resident/fellow. I discussed the case with the resident/fellow and agree with the findings and plan as documented. * Progress Notes - Daphne Landry APRN, DNP - 10/03/2024 8:26 AM EDT [facility] Progress Note Patient: Mundo Fernandez Admit Date: 09/30/2024 Subjective Reviewed the interval events, flowsheets, labs and the notes. Mr. Fernandez was evaluated at bedside this morning, he is resting comfortably in bed. He had iHD yesterday with 1L UF; tolerated well. The patient remains on room air. He was hypertensive overnight with SBP: 150-170s, BP improved this morning with SBP: 130s. Discussed plans for iHD tomorrow and the patient is agreeable. Objective Visit Vitals BP 132/67 Pulse 68 Temp (!) 36.2 ??C (97.2 ??F) Resp 16 Ht 1.778 m (5' 10 ) Wt 74.1 kg (163 lb 5.8 oz) SpO2 97% BMI 23.44 kg/m?? Smoking Status Never BSA 1.91 m?? Temp: [36.2 ??C (97.2 ??F)-36.6 ??C (97.8 ??F)] 36.2 ??C (97.2 ??F) Heart Rate: [58-70] 68 Resp: [16] 16 BP: (132-190)/(58-89) 132/67 Problem List Principal Problem: Declining functional status Active Problems: ESRD (end stage renal disease) on dialysis (CMS/HCC) Essential (primary) hypertension Type 2 diabetes mellitus with chronic kidney disease on chronic dialysis ([facility]) Wears hearing aid in both ears At high risk for falls Insomnia, unspecified Chronic combined systolic (congestive) and diastolic (congestive) heart failure (CMS/HCC) Dementia ([facility]/HCC) Chronic hepatitis C without hepatic coma ([facility]CC) Arterial insufficiency ([facility]) Gastroesophageal reflux disease without esophagitis Mixed hyperlipidemia Anxiety and depression Mild intellectual disabilities Sensorineural hearing loss, bilateral History of transmetatarsal amputation of foot ([facility]/HCC) Electrolyte and fluid disorder Anemia in chronic kidney disease (CODE) Chronic kidney disease-mineral and bone disorder (CKD-MBD) 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 ESRD (end stage renal disease) ([facility]) Medications: Current Medications: Current Scheduled Medications[1] Current Continuous Medications[2] Physical Exam: GEN: no acute distress, sitting in chair, on room air SKIN : warm and dry, color normal, turgor normal, no lesions. EYES : anicteric, extraocular movements intact. ENMT : intact, mucous membranes moist HEAD/NECK : neck supple, no apparent injury. RESPIRATORY/THORAX : patent airways, clear to auscultation bilaterally, no rales appreciated CARDIOVASCULAR: regular rhythm, regular rate, no murmurs appreciated GASTROINTESTINAL: soft, NT, ND, NABSx4 EXTREMITIES: no LE edema, no rashes noted NEURO: Alert, hard of hearing, answers appropriately, follows commands ACCESS: RUE AVF Laboratory: Results from last 7 days Lab Units 10/02/24 0536 09/30/24 1650 WBC 10*3/uL 7.44 8.92 HEMOGLOBIN g/dL 10.4* 10.4* HEMATOCRIT % 29.8* 29.8* MCV fL 90 91 PLATELETS 10*3/uL 119* 121* Results from last 7 days Lab Units 10/03/24 0321 10/02/24 0536 09/30/24 1650 SODIUM mmol/L 131* 132* 131* POTASSIUM mmol/L 3.9 3.8 3.0* CHLORIDE mmol/L 96* 94* 90* CO2 mmol/L 26 28 BUN mg/dL 24* 37* 29* CREATININE mg/dL 5.69* 8.81* 7.58* GLUCOSE mg/dL 119* 95 185* CALCIUM mg/dL 7.2* 7.4* 7.6* MAGNESIUM mg/dL 1.8* 2.0 1.7* PHOSPHORUS mg/dL 3.0 3.9 3.3 BILIRUBIN TOTAL mg/dL -- -- 0.6 ALKALINE PHOSPHATASE U/L -- -- 42 ALT U/L -- -- 6* AST U/L -- -- 13 Lab Results Component Value Date USG 1.008 04/14/2023 FLORY >=8.5 (H) 04/14/2023 URINEPRO >=300 (A) 04/14/2023 GLUCOSEU 100 (A) 04/14/2023 BLOODU Trace (A) 04/14/2023 NITRITEU Negative 04/14/2023 URBC 4 - 10 (A) 04/14/2023 HYLCST 0 - 2 04/14/2023 BACTERIAU Present 04/14/2023 SQUAMOUS 3 - 5 04/14/2023 Lab Results Component Value Date NAPA 350 12/10/2018 NAUR 31 12/10/2018 CREATUR 158 12/10/2018 PROTUR 153 11/12/2018 UTPCR 1.5 (H) 11/12/2018 Lab Results Component Value Date FERRITIN 1,701 (H) 10/02/2024 TRANSFERNSAT 45 09/30/2024 IRON 66 09/30/2024 TIBC 146 (L) 09/30/2024 TRANSFERRIN 117 (L) 09/30/2024 Lab Results Component Value Date PTH 9 10/02/2024 VITD25 33.5 10/02/2024 Impression & Plan: Mundo Fernandez is a 62 y.o. male with ESRD on iHD MWF, T2DM, HTN, chronic HFrEF, PAD, HLD, IDD/dementia, depression/anxiety, insomnia, chronic HCV, DM foot ulcer c/b OM s/p bilateral transmetarsal amputation, and debility presented to [facility] on 09/30 after refusing care at [place] [facility]. Nephrology consulted for dialysis. Assessment: #ESRD on iHD - MWF at [facility] [address] Lucas - AccesS: RUE AVG - EDW 67.5 Kg #HTN #Renal Osteodystrophy; secondary hyperparathyroidism #Anemia in ESRD #Disorders of electrolytes and acid/base due to renal insufficiency #Hypervolemia in renal insufficiency #Debility #T2DM #HFrEF #Dementia #Intellectual and developmental delay Recommendations and Plan - Continue iHD MWF while admtited; 3hrs, BFR 300-400 mL/min, DFR 600-800 mL/min, 3.5K, 2.5Ca, 32HCO3, 136Na, UF 1L, T35.5 - Iron parameters at goal; will follow for ANGELITA requirements - Renal diet as tolerated - Sevelamer held with Phos <4; will follow for Phos binder requirements - Strict I/Os and Daily weights - Management of other acute/chronic conditions per primary team - Avoid NSAIDs and other nephrotoxic mediations; Renally dose medications for ESRD on iHD. Please feel free to reach out if you have any questions or concerns. Daphne Landry APRN Nephrololgy Epic Chat Note to patient: The Century Cures Act makes medical notes like these available to patients inthe interest of transparency. However, be advised this is a medical document. It is intended as peer to peer communication. It is written in medical language and may contain abbreviations or verbiagethat are unfamiliar. It may appear blunt or direct. Medical documents are intended to carry relevant information, facts as evident, and the clinical opinion of the practitioner. [1] aspirin, 81 mg, Oral, Daily atorvastatin, 40 mg, Oral, Nightly cadexomer iodine, , Topical, Daily carvedilol, 12.5 mg, Oral, BID clopidogrel, 75 mg, Oral, Daily divalproex sprinkle, 250 mg, Oral, BID heparin (porcine), 5,000 Units, Subcutaneous, q8h RAFAT insulin lispro, 0-5 Units, Subcutaneous, TID with meals insulin lispro, 0-3 Units, Subcutaneous, Twice at night melatonin, 3 mg, Oral, Nightly mupirocin, 1 Application, Each Nostril, BID NIFEdipine XL, 30 mg, Oral, Daily polyethylene glycol, 17 g, Oral, Daily sertraline, 75 mg, Oral, Daily sodium chloride, 10 mL, Intravenous, q12h traZODone, 100 mg, Oral, Nightly [2] Cosigned by Donny Tovar MD at 10/03/2024 2:25 PM EDT Associated attestation - Donny Tovar MD - 10/03/2024 2:25 PM EDT I attest to being involved in providing substantive part of the medical decision making in patient care. * Care Plan - Shakira Olsen RN - 10/03/2024 12:27 AM EDT Problem: Adult Inpatient Plan of Care Goal: Plan of Care Review Outcome: Ongoing, Progressing Flowsheets (Taken 10/03/202418) Progress: improving Plan of Care Reviewed With: patient Goal: Patient-Specific Goal (Individualized) Outcome: Ongoing, Progressing Flowsheets (Taken 10/03/202418) Patient/Family-Specific Goals (Include Timeframe): Pt will be free from fall or injury during the shift. Individualized Care Needs: safety Anxieties, Fears or Concerns: none stated Problem: Skin Injury Risk Increased Goal: Skin Health and Integrity Outcome: Ongoing, Progressing Intervention: Optimize Skin Protection Flowsheets (Taken 10/03/202418) Activity Management: activity adjusted per tolerance Pressure Reduction Techniques: frequent weight shift encouraged heels elevated off bed Skin Protection: incontinence pads utilized transparent dressing maintained Head of Bed (HOB) Positioning: HOB elevated Problem: Fall Injury Risk Goal: Absence of Fall and Fall-Related Injury Outcome: Ongoing, Progressing Intervention: Identify and Manage Contributors Flowsheets (Taken 10/03/202418) Medication Review/Management: medications reviewed Self-Care Promotion: independence encouraged Intervention: Promote Injury-Free Environment Flowsheets (Taken 10/03/202418) Safety Promotion/Fall Prevention: activity supervised clutter-free environment maintained fall prevention program maintained nonskid shoes/slippers when out of bed room organization consistent toileting scheduled Problem: Wound Goal: Absence of Infection Signs and Symptoms Outcome: Ongoing, Progressing Intervention: Prevent or Manage Infection Flowsheets (Taken 10/03/202418) Infection Management: aseptic technique maintained Isolation Precautions: protective Goal: Skin Health and Integrity Outcome: Ongoing, Progressing Intervention: Optimize Skin Protection Flowsheets (Taken 10/03/202418) Activity Management: activity adjusted per tolerance Pressure Reduction Techniques: frequent weight shift encouraged heels elevated off bed Skin Protection: frequent weight shift encouraged adhesive use limited Head of Bed (HOB) Positioning: HOB elevated Goal: Optimal Wound Healing Outcome: Ongoing, Progressing Intervention: Promote Wound Healing Flowsheets (Taken 10/03/202418) Sleep/Rest Enhancement: noise level reduced room darkened relaxation techniques promoted Problem: Hemodialysis Goal: Safe, Effective Therapy Delivery Outcome: Ongoing, Progressing Intervention: Optimize Device Care and Function Flowsheets (Taken 10/03/202418) Medication Review/Management: medications reviewed Goal: Absence of Infection Signs and Symptoms Outcome: Ongoing, Progressing Intervention: Prevent or Manage Infection Flowsheets (Taken 10/03/202418) Infection Management: aseptic technique maintained Problem: Self-Care Deficit Goal: Improved Ability to Complete Activities of Daily Living Outcome: Ongoing, Progressing Intervention: Promote Activity and Functional [place] Flowsheets (Taken 10/03/202418) Activity Assistance Provided: assistance, 1 person Self-Care Promotion: independence encouraged Problem: Infection Goal: Absence of Infection Signs and Symptoms Outcome: Ongoing, Progressing Intervention: Prevent or Manage Infection Flowsheets (Taken 10/03/202418) Infection Management: aseptic technique maintained Isolation Precautions: protective * Care Plan - Indy Liao RN - 10/02/2024 6:00 PM EDT Problem: Adult Inpatient Plan of Care Goal: Plan of Care Review Outcome: Ongoing, Progressing Flowsheets (Taken 10/02/20241756) Progress: improving Plan of Care Reviewed With: patient Goal: Patient-Specific Goal (Individualized) Outcome: Ongoing, Progressing Flowsheets (Taken 10/02/2024 1130) Patient/Family-Specific Goals (Include Timeframe): Patient will be free from harm throughout this shift Individualized Care Needs: Safety Anxieties, Fears or Concerns: N/a Goal: Absence of Hospital-Acquired Illness or Injury Outcome: Ongoing, Progressing Intervention: Identify and Manage Fall Risk Flowsheets (Taken 10/02/2024 1130) Safety Promotion/Fall Prevention: activity supervised assistive device/personal items within reach clutter-free environment maintained fall prevention program maintained nonskid shoes/slippers when out of bed room organization consistent safety round/check completed Intervention: Prevent Skin Injury Flowsheets Taken 10/02/20241756 Skin Protection: incontinence pads utilized Taken 10/02/2024 1600 Body Position: weight shifting Intervention: Prevent and Manage VTE (Venous Thromboembolism) Risk Flowsheets (Taken 10/02/20241756) VTE Prevention/Management: medication Intervention: Prevent Infection Flowsheets (Taken 10/02/20241756) Infection Prevention: hand hygiene promoted Goal: Optimal Comfort and Wellbeing Outcome: Ongoing, Progressing Intervention: Monitor Pain and Promote Comfort Flowsheets (Taken 10/02/20241756) Pain Management Interventions: declines Intervention: Provide Person-Centered Care Flowsheets (Taken 10/02/20241756) Trust Relationship/Rapport: care explained Goal: Readiness for Transition of Care Outcome: Ongoing, Progressing Intervention: Mutually Develop Transition Plan Flowsheets (Taken 10/02/20241756) Anticipated Changes Related to Illness: inability to care for self * Query Clarification Note - Leda Gaitan MD - 10/02/2024 3:51 PM EDT A review of the medical record indicates additional documentation may be indicated. Please indicatea diagnosis, if any, that correlates with the following clinical findings: Abnormal lab values may not be coded without provider interpretation and documentation in the medical record. [x] Hyponatremia, POA [] Other, please specify [] Lab values clinically insignificant This documentation will become part of the patient's medical record. * Progress Notes - Birdie Damico RN - 10/02/2024 2:14 PM EDT Case Management Adult Initial Progress Note Mundo Fernandez 64 y.o. male CSN: [id number] Admission: 09/30/2024 3:29 PM Primary Problem: Declining functional status Hob Mill Operator reviewed chart and spoke with patient caregiver, Mariel [phone] to complete this Initial Case Management Assessment. PCP: Leonard Botello MD, not confirmed Emergency Contact: Extended Emergency Contact Information Primary Emergency Contact: Chris Fernandez Mobile Relation: Legal Guardian Preferred language: Kosovan Repair Operator needed? No Secondary Emergency Contact: Mariel Chavez Address: [address] [place] [address] Mobile Relation: Lombardi Developer Repair Operator needed? No Insurance: Primary Visit Coverage Payer Plan Sponsor Code Group Number Group Name MEDICARE MEDICARE A & B Primary Visit Coverage Subscriber Subscriber ID Subscriber Name Subscriber N Subscriber Address [id number] MUNDO FERNANDEZ [id number] [address] [place] [address] Secondary Visit Coverage Payer Plan Sponsor Code Group Number Group Name MEDICAID-[facility] MEDICAID [facility] Secondary Visit Coverage Subscriber Subscriber ID Subscriber Name Subscriber SSN Subscriber Address [id number] MUNDO FERNANDEZ [id number] [address] [place] [address] Patient information: Primary Caregiver: Private caregiver Accompanied by/Relationship: no family friends at the bedside Support System: Immediate family Daily Living Activities: Functional Status: Minimum assistance Living Arrangements: Friends Type of Residence: Private residence [address] [facility] [address] Smoker in the Home?: No Current DME: Equipment Currently Used at Home: walker, rolling Income Information: Income Source: Disabled Income/Expense Information: Expenses exceed income Current Resources Utilized: None Housing Circumstances-Z Codes: Housing Circumstances (select all that apply): Low Income (101-300% Federal Poverty Guidlines) - Z596 Patient Referred to: Anticipated Discharge Date: TBD ending safe discharge plan. Patient's Discharge Goal: TBD pending safe discharge plan. Assistance Available at Discharge: TBD pending safe discharge plan Discharge Transport: TBD Follow Up Transport: TBD Home Health / Home Infusion / Outpatient Dialysis Services: [facility] [address] M/W/F. Wheels Transportation . Living Will/Advance Directive/Power of Secondary Social Studies Teacher /Guardian: Have you reviewed your Advance Directive and is it valid for this stay?: Yes Advance Directive: Patient does not have advance directive Information Provided on Healthcare Directives: No Pre-existing DNR/DNI Order: No Patient Requests Assistance: No Additional Comments: Patient lacks capacity, CM unable to reach legal guardian and brotherChris via telephone. Message left for brother to return CM call to discuss discharge planning. CM called Mariel Arteagapiper who is listed as second person on emergency contacts. Per [facility] report, patient was at [facility] one year ago, discharged to [facility]. [facility] discharged patient approximately 1 week ago to live with Mariel who is a paid caregiver through an agency, however, Mariel was not being compensated for the care due to SCL waiver while patient was at [facility]. CM will continue to reach patients legal guardian to discuss dc planning. Birdie Damico RN * Progress Notes - Leda Gaitan MD - 10/02/2024 12:20 PM EDT Images from the original note were not included. Hospital Medicine Inpatient Progress Note Patient: Mundo Fernandez PCP: Leonard Botello MD Date: 10/02/2024 Subjective Had dialysis today, remembered me from the day prior, asking for ice Review of Systems Unable to perform ROS: Psychiatric disorder Objective INPATENT MEDICATIONS Current Medications[1] ALLERGIES Allergies[2] 24 HOUR VITALS Temp: [36.3 ??C (97.3 ??F)-36.6 ??C (97.9 ??F)] 36.4 ??C (97.5 ??F) Heart Rate: [58-71] 70 Resp: [16] 16 BP: (137-190)/(58-88) 190/77 INTAKE/OUTPUT Intake/Output Summary (Last 24 hours) at 10/02/2024 1220 Last data filed at 10/02/2024 1110 Gross per 24 hour Intake 300 ml Output 1300 ml Net -1000 ml Physical Exam Constitutional: General: He is not in acute distress. Appearance: He is normal weight. He is not toxic-appearing. HENT: Head: Normocephalic. Right Ear: External ear normal. Left Ear: External ear normal. Nose: Nose normal. Mouth/Throat: Mouth: Mucous membranes are moist. Eyes: General: Right eye: No discharge. Left eye: No discharge. Extraocular Movements: Extraocular movements intact. Pupils: Pupils are equal, round, and reactive to light. Cardiovascular: Rate and Rhythm: Normal rate and regular rhythm. Pulmonary: Effort: Pulmonary effort is normal. Breath sounds: Normal breath sounds. Abdominal: General: Abdomen is flat. There is no distension. Musculoskeletal: General: No swelling, deformity or signs of injury. Cervical back: Normal range of motion and neck supple. Skin: General: Skin is warm. Findings: No lesion. Neurological: Mental Status: He is alert. Psychiatric: Attention and Perception: He is inattentive. Mood and Affect: Affect is inappropriate. Cognition and Memory: Cognition is impaired. Memory is impaired. Judgment: Judgment is impulsive. REVIEW OF LABORATORY DATA Lab Results Component Value Date WBC 7.44 10/02/2024 HGB 10.4 (L) 10/02/2024 HCT 29.8 (L) 10/02/2024 MCV 90 10/02/2024 PLT 119 (L) 10/02/2024 Lab Results Component Value Date GLUCOSE 95 10/02/2024 CALCIUM 7.4 (L) 10/02/2024 NA 132 (L) 10/02/2024 K 3.8 10/02/2024 CO2 26 10/02/2024 CL 94 (L) 10/02/2024 BUN 37 (H) 10/02/2024 CREATININE 8.81 (H) 10/02/2024 Lab Results Component Value Date ALT 6 (L) 09/30/2024 AST 13 09/30/2024 ALKPHOS 42 09/30/2024 BILITOT 0.6 09/30/2024 Lab Results Component Value Date INR 1.0 12/07/2022 REVIEW OF IMAGING STUDIES XR Chest 1 View Narrative: CLINICAL INDICATION: discharge clearance TECHNIQUE: XR CHEST 1 VIEW COMPARISON: April 28, 2023 FINDINGS: Small pleural effusions versus pleural thickening, decreased since prior. Low lung volumes with bilateral atelectasis. No consolidation. No pneumothorax. Impression: Decreased pleural effusions. CRITICAL RESULT: No. COMMUNICATION: Per this written report. Drafted by Mundo Martins MD on 08/25/2023 12:16 PM Final report signed by Mundo Martins MD on 08/25/2023 12:18 PM REVIEW OF PROCEDURES Assessment and Plan: Aakash Fernandez is a [place] 64 y.o. male with past history of ESRD on HD MWF, T2DM, HTN, chronic HFrEF, PAD, HLD, IDD/dementia, depression/anxiety, insomnia, chronic HCV, DM foot ulcer c/b OM s/p bilateral transmetarsal amputation, and debility sent [place] [facility] [place] to ED for medical evaluationafter refusing care. Declining functional status - Transferred [place] [facility] a [place] ago and since arrival refusing HD, to eat, participate, or take medications - sent to ED for medical evaluation and need for higher level of assist/unable to care for self/non-compliance - afebrile, VSS, no acute complaints PLAN - PT/OT consult re: placement - legal guardian is his brother, Chris Fernandez, #[phone] At high risk for falls - wheelchair dependent, fall precautions ESRD (end stage renal disease) on dialysis ([facility]) - Missed HD (MWF) , last session 3 days ago (09/27/2024) via [facility] - renally dose meds based on EGFR - strict I/O, daily weight - consulted Nephrology dialysis today Electrolyte and fluid disorder Hyponatremia - switch lokelma daily to 10 mg on non-dialysis days - follow-up RFP, trend Na Chronic kidney disease-mineral and bone disorder (CKD-MBD) - continue Renvela 800 mg TID with meals Anemia in chronic kidney disease (CODE) - Hgb stable, transfuse to keep >7 - ferritin, iron studies Type 2 diabetes mellitus with chronic kidney disease on chronic dialysis ([facility]) - last A1c 4.8% over a year ago - presenting glucose 185, repeat A1c pending PLAN - ACHS regular SSI - hold home glargine 5U at bedtime while trend glucose/PO intake Dementia ([facility]) - Delirium precautions - Pharm med rec pending re: home Asenapine 3.8 mg daily (not on formulary consulted psych for possible equivalent) Mild intellectual disabilities - last neuropsych exam in 2023 found to not have capacity, brother is legal guardian - continue Depakote Sprinkle 250 mg twice daily Anxiety and depression - continue sertraline 75 mg daily Insomnia, unspecified - continue trazodone 100 mg at bedtime, melatonin 3 mg at bedtime Essential (primary) hypertension - continue carvedilol 12.5 mg twice daily, nifedipine XL 30 mg daily (hold for BP <120/80 on dialysis days) Arterial insufficiency ([facility]) - continue aspirin 81 mg daily, clopidogrel 75 mg daily Mixed hyperlipidemia - continue atorvastatin 40 mg at bedtime 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 - continue statin, ASA, clopidogrel as above Gastroesophageal reflux disease without esophagitis - continue daily PPI Sensorineural hearing loss, bilateral - complicates all aspects of care Wears hearing aid in both ears - not present with patient on admission Chronic combined systolic (congestive) and diastolic (congestive) heart failure ([facility]) - ECHO 06/27/2022: EF 45%, abnormal diastolic dysfunction - strict I/O, 2 L fluid restriction, cardiac/renal/CCHO2 diet Chronic hepatitis C without hepatic coma ([facility]) - HCV RNA PCR not detected 07/13/2023 History of transmetatarsal amputation of foot ([facility]) - chronic OM 2/2 DM foot ulcers s/p bilateral transmetarsal amputation Inpatient Checklist: Inpatient checklist: - Bowel regimen: ducolax - Code status: Full Code - Diet: PO - DVT prophylaxis: heparin - Disposition: placement CODE STATUS: Full Code EMERGENCY CONTACT: Extended Emergency Contact Information Primary Emergency Contact: Chris Fernandez Mobile Relation: Legal Guardian Preferred language: Kosovan Repair Operator needed? No Secondary Emergency Contact: Mariel Chavez Address: [address] [place] [address] [place] Mobile Relation: Lombardi Developer Repair Operator needed? No Leda Kelley MD Double Surface Operator Internal Medicine Pediatrics Certified Strategy Execution Consultant Pager [phone] [1] Current Facility-Administered Medications: acetaminophen (Tylenol) tablet 650 mg, 650 mg, Oral, q6h PRN, Laith Valdesana B, MEDICAL ADMINISTRATIVE TECHNICIAN aspirin chewable tablet 81 mg, 81 mg, Oral, Daily, Lucio Gitana B, MEDICAL ADMINISTRATIVE TECHNICIAN, 81 mg at 10/02/24 1137 atorvastatin (Lipitor) tablet 40 mg, 40 mg, Oral, Nightly, Lala Valdes B, MEDICAL ADMINISTRATIVE TECHNICIAN, 40 mg at 10/01/242051 bisacodyl (Dulcolax) EC tablet 10 mg, 10 mg, Oral, Daily PRN, Lucio Gitana B, MEDICAL ADMINISTRATIVE TECHNICIAN cadexomer iodine (Iodosorb) 0.9 % gel, , Topical, Daily, Tana Wooten MD, Given at 10/02/24 1140 carvedilol (Coreg) tablet 12.5 mg, 12.5 mg, Oral, BID, Lala Valdes, MEDICAL ADMINISTRATIVE TECHNICIAN, 12.5 mg at 10/02/24 1137 clopidogrel (Plavix) tablet 75 mg, 75 mg, Oral, Daily, Lucio Gitana B, MEDICAL ADMINISTRATIVE TECHNICIAN, 75 mg at 10/02/24 1137 glucose (Glutose) 40 % oral gel 15-30 grams of glucose, 15-30 grams of glucose, Sublingual, q15 minPRN OR dextrose 10 % (D10W) bolus 125 mL, 125 mL, Intravenous, q15 min PRN OR dextrose 10 %(D10W) bolus 250 mL, 250 mL, Intravenous, q15 min PRN OR glucagon (human recombinant) injection1 mg, 1 mg, Intramuscular, q15 min PRN, Lucio Gitana B, MEDICAL ADMINISTRATIVE TECHNICIAN divalproex sprinkle (Depakote Sprinkle) DR capsule 250 mg, 250 mg, Oral, BID, Lucio Gitnikolay B, MEDICAL ADMINISTRATIVE TECHNICIAN,250 mg at 10/02/24 1137 heparin (porcine) injection 5,000 Units, 5,000 Units, Subcutaneous, q8h RAFAT, Lala Valdes, MEDICAL ADMINISTRATIVE TECHNICIAN, 5,000 Units at 10/02/24 0528 insulin lispro (Admelog) 100 units/mL injection - Correction - Standard Dose, 0- 5 Units, Subcutaneous, TID with meals, Lala Valdes MEDICAL ADMINISTRATIVE TECHNICIAN insulin lispro (Admelog) injection - Correction - Nighttime Dose, 0-3 Units, Subcutaneous, Twice atnight, Lala Valdes MEDICAL ADMINISTRATIVE TECHNICIAN melatonin tablet 3 mg, 3 mg, Oral, Nightly, Lala Valdes B, MEDICAL ADMINISTRATIVE TECHNICIAN, 3 mg at 10/01/242050 mupirocin (Bactroban) 2 % ointment 1 Application, 1 Application, Each Nostril, BID, Tana Wooten MD, 1 Application at 10/02/241136 NIFEdipine XL (Procardia XL) 24 hr tablet 30 mg, 30 mg, Oral, Daily, Lala Valdes, MEDICAL ADMINISTRATIVE TECHNICIAN, 30 mg at10/02/24 113 polyethylene glycol (Miralax) packet 17 g, 17 g, Oral, Daily, Lala Valdes, MEDICAL ADMINISTRATIVE TECHNICIAN, 17 g at 10/02/24 1137 sertraline (Zoloft) tablet 75 mg, 75 mg, Oral, Daily, Lala Valdes, MEDICAL ADMINISTRATIVE TECHNICIAN, 75 mg at 10/02/24 113 Insert peripheral IV, , , Once AND Saline lock IV, , , Once AND sodium chloride 0.9 % flush10 mL, 10 mL, Intravenous, q12h, 10 mL at 10/02/24 1137 AND sodium chloride 0.9 % flush 10 mL, 10 mL, Intravenous, PRN, Lala Valdes B, MEDICAL ADMINISTRATIVE TECHNICIAN traZODone (Desyrel) tablet 100 mg, 100 mg, Oral, Nightly, Lala Valdes, MEDICAL ADMINISTRATIVE TECHNICIAN, 100 mg at 10/01/242051 Facility-Administered Medications Ordered in Other Encounters: lidocaine-EPINEPHrine (PF) (Xylocaine W/EPI) 1 %-1:720557 injection - Pyxis Override Pull, , , , lidocaine-EPINEPHrine (PF) (Xylocaine W/EPI) 1 %-1:296485 injection - Pyxis Override Pull, , , , [2] No Known Allergies * Progress Notes - Donny Tovar MD - 10/02/2024 11:15 AM EDT Hemodialysis Procedure Note Chief Compliant/reason for consult: ESRD on dialysis HPI: No acute events overnight. Seen and examined on dialysis. Tolerating well. Physical Exam: Visit Vitals BP (!) 145/58 Pulse 58 Temp 36.4 ??C (97.5 ??F) (Oral) Resp 16 Ht 1.778 m (5' 10 ) Wt 77 kg (169 lb 12.1 oz) SpO2 96% BMI 24.36 kg/m?? Smoking Status Never BSA 1.95 m?? GA: NAD, on dialysis Resp: Normal respiratory effort CV: Trace BLE edema Dialysis Access: AVF RUE accessed for dialysis No intake or output data in the 24 hours ending 10/02/24 1115 Current Medications: reviewed Current Scheduled Medications[1] Current Continuous Medications[2] Current PRN Medications[3] Laboratory Results Results from last 7 days Lab Units 10/02/24 0536 09/30/24 1650 WBC 10*3/uL 7.44 8.92 HEMOGLOBIN g/dL 10.4* 10.4* HEMATOCRIT % 29.8* 29.8* MCV fL 90 91 PLATELETS 10*3/uL 119* 121* Results from last 7 days Lab Units 10/02/24 0536 09/30/24 1650 SODIUM mmol/L 132* 131* POTASSIUM mmol/L 3.8 3.0* CHLORIDE mmol/L 94* 90* CO2 mmol/L 26 28 BUN mg/dL 37* 29* CREATININE mg/dL 8.81* 7.58* CALCIUM mg/dL 7.4* 7.6* PHOSPHORUS mg/dL 3.9 3.3 MAGNESIUM mg/dL 2.0 1.7* Assessment: - ESRD on Hemodialysis - Disorders of fluid, electrolytes and acid-base balance - Hypervolemia in renal insufficiency - Renal osteodystrophy - Anemia in ESRD Plan: - HD today. Continue MWF schedule while inpatient. - Will ultrafiltrate as tolerated on dialysis - Will adjust dialysate composition to help maintaining normal electrolytes and acid base balance - Will follow for Phos binder requirements; repeat PTH pending - Iron parameters at goal; will follow for ANGELITA requirements - Daily weight - Renal diet - Renally dose medications for HD - I saw and evaluated the patient during dialysis treatment. Currently patient is tolerating treatment with stable hemodynamics. Dialysis flowsheet, dialysis bath and machine settings reviewed. No issues with current flow settings and access flows are acceptable. BFR 300-400 ml/min, DFR 600-800 ml/min, 3.5K / 2.5Ca / 32 bicarb. UF 2L as tolerated. Please see dialysis flowsheet for treatment's details. Dialysis Medications sodium citrate anticoagulant 4 % flush 6 mL 6 mL, Intracatheter, Every visit, As needed alteplase (Cathflo Activase) injection 4 mg 4 mg, Intracatheter, Every visit, As needed Dialysis Treatment Hemodialysis inpatient 3 hr (180 min); Revaclear 400; 35.5; 3.5; 2.5; 136; 32; 1; Remove UF as tolerated; 300-400; 2X Blood Flow Rate; Adult; AV Fistula; 15 ga Once Every visit, Once Duration of Treatment: 3 hr (180 min) Dialyzer: Revaclear 400 Dialysate Temperature (Centigrade): 35.5 Dialysate: Potassium (mEq/L): 3.5 Dialysate: Calcium (mEq/L): 2.5 Dialysate: Sodium (mEq/L): 136 Dialysate: Bicarb (mEq/L): 32 Net fluid removal (Ultrafiltration) (L): 1 As tolerated: Remove UF as tolerated BFR (mL/min): 300-400 Dialysate Flow Rate (mL/min): 2X Blood Flow Rate Tubing: Adult Access Site: AV Fistula Needle Size: 15 ga Nursing general assessments and interventions Every visit, Once Labs Hepatitis B Surface Antibody, Quantitative Every 28 days, Once Release to [facility] in [facility]: Immediate Hepatitis panel, acute Every 28 days, Once Release to patient in MyChart: Immediate Zechariah Tovar MD Nephrology [1] aspirin, 81 mg, Oral, Daily atorvastatin, 40 mg, Oral, Nightly cadexomer iodine, , Topical, Daily carvedilol, 12.5 mg, Oral, BID clopidogrel, 75 mg, Oral, Daily divalproex sprinkle, 250 mg, Oral, BID heparin (porcine), 5,000 Units, Subcutaneous, q8h RAFAT insulin lispro, 0-5 Units, Subcutaneous, TID with meals insulin lispro, 0-3 Units, Subcutaneous, Twice at night melatonin, 3 mg, Oral, Nightly mupirocin, 1 Application, Each Nostril, BID NIFEdipine XL, 30 mg, Oral, Daily polyethylene glycol, 17 g, Oral, Daily sertraline, 75 mg, Oral, Daily sodium chloride, 10 mL, Intravenous, q12h traZODone, 100 mg, Oral, Nightly [2] [3] PRN medications: acetaminophen, alteplase, bisacodyl, glucose OR dextrose 10 % OR dextrose 10 % OR glucagon (human recombinant), Insert peripheral IV AND Saline lock IV AND sodium chloride AND sodium chloride, sodium citrate anticoagulant * Care Plan - Shakira Olsen RN - 10/02/2024 12:44 AM EDT Problem: Adult Inpatient Plan of Care Goal: Plan of Care Review Outcome: Ongoing, Progressing Flowsheets (Taken 10/02/202436) Progress: improving Plan of Care Reviewed With: patient Goal: Patient-Specific Goal (Individualized) Outcome: Ongoing, Progressing Flowsheets (Taken 10/01/20241999) Patient/Family-Specific Goals (Include Timeframe): Pt will be free from fall or injury during the shift. Individualized Care Needs: safety, dialysis, help with ADLs Anxieties, Fears or Concerns: none stated Problem: Skin Injury Risk Increased Goal: Skin Health and Integrity Outcome: Ongoing, Progressing Intervention: Optimize Skin Protection Flowsheets (Taken 10/02/202436) Activity Management: activity adjusted per tolerance Pressure Reduction Techniques: frequent weight shift encouraged heels elevated off bed Skin Protection: transparent dressing maintained Head of Bed (HOB) Positioning: HOB at 30 degrees Intervention: Promote and Optimize Oral Intake Flowsheets (Taken 10/02/202436) Oral Nutrition Promotion: physical activity promoted Nutrition Interventions: food preferences provided Problem: Fall Injury Risk Goal: Absence of Fall and Fall-Related Injury Outcome: Ongoing, Progressing Intervention: Identify and Manage Contributors Flowsheets (Taken 10/02/202436) Medication Review/Management: medications reviewed Self-Care Promotion: independence encouraged BADL personal objects within reach Intervention: Promote Injury-Free Environment Flowsheets (Taken 10/02/202436) Safety Promotion/Fall Prevention: activity supervised clutter-free environment maintained nonskid shoes/slippers when out of bed room organization consistent toileting scheduled Problem: Wound Goal: Absence of Infection Signs and Symptoms Outcome: Ongoing, Progressing Intervention: Prevent or Manage Infection Flowsheets (Taken 10/02/202436) Isolation Precautions: protective Goal: Skin Health and Integrity Outcome: Ongoing, Progressing Intervention: Optimize Skin Protection Flowsheets (Taken 10/02/202436) Activity Management: activity adjusted per tolerance Pressure Reduction Techniques: frequent weight shift encouraged heels elevated off bed Head of Bed (HOB) Positioning: HOB at 30 degrees Goal: Optimal Wound Healing Outcome: Ongoing, Progressing Intervention: Promote Wound Healing Flowsheets (Taken 10/02/202436) Sleep/Rest Enhancement: noise level reduced room darkened relaxation techniques promoted Problem: Hemodialysis Goal: Safe, Effective Therapy Delivery Outcome: Ongoing, Progressing Intervention: Optimize Device Care and Function Flowsheets (Taken 10/02/202436) Medication Review/Management: medications reviewed Goal: Absence of Infection Signs and Symptoms Outcome: Ongoing, Progressing Intervention: Prevent or Manage Infection Flowsheets (Taken 10/02/202436) Infection Prevention: hand hygiene promoted single patient room provided Problem: Self-Care Deficit Goal: Improved Ability to Complete Activities of Daily Living Outcome: Ongoing, Progressing Intervention: Promote Activity and Functional [place] Flowsheets (Taken 10/02/202436) Activity Assistance Provided: assistance, 1 person Self-Care Promotion: independence encouraged BADL personal objects within reach Problem: Infection Goal: Absence of Infection Signs and Symptoms Outcome: Ongoing, Progressing Intervention: Prevent or Manage Infection Flowsheets (Taken 10/02/202436) Isolation Precautions: protective * Care Pao - Cornell Hinojosa RN - 10/01/2024 2:23 PM EDT Problem: Wound Goal: Absence of Infection Signs and Symptoms Outcome: Ongoing, Progressing Problem: Wound Goal: Skin Health and Integrity Outcome: Ongoing, Progressing Intervention: Optimize Skin Protection Flowsheets (Taken 10/01/2024 1422) Skin Protection: frequent weight shift encouraged pressure points protected Problem: Wound Goal: Skin Health and Integrity Intervention: Optimize Skin Protection Flowsheets (Taken 10/01/2024 142) Skin Protection: frequent weight shift encouraged pressure points protected Problem: Wound Goal: Optimal Wound Healing Outcome: Ongoing, Progressing Intervention: Promote Wound Healing Flowsheets (Taken 10/01/2024 142) Sleep/Rest Enhancement: natural light exposure provided Problem: Wound Goal: Optimal Wound Healing Intervention: Promote Wound Healing Flowsheets (Taken 10/01/2024 1422) Sleep/Rest Enhancement: natural light exposure provided * Progress Notes - Cornell Hinojosa RN - 10/01/2024 2:14 PM EDT Images from the original note were not included. Wound Care Consult Visit Date: 10/01/2024 Patient Name: Aakash Fernandez Date of : 1960 Admit Date: 09/30/2024 Reason for Consult: IP Wound Orders (From admission, onward) Start Ordered 10/01/24222 Wound ostomy eval and treat Once Comments: Wound on the bottom of right foot Question: Instructions: Answer: Prior to sending evaluation & treat order, place wound/ostomy LDA, complete a wound/ostomy assessment, and consider taking a photograph to document. 10/01/24222 Wound Assessment: Wound 09/30/24 Diabetic Ulcer Heel Right (Active) Date First Assessed/Time First Assessed: 09/30/242199 Present on Original Admission: Yes Hand Hygiene Completed: Yes Primary Wound Type: Diabetic Ulcer Location: Heel Wound Location Orientation: Right Assessments 10/01/2024 10:23 AM Wound Image Wound Assessment [place];Pale;Granulation Margins Well-defined edges;Open Edges Sydni-Wound Assessment Dry;Calloused;Other (Comment) (Scaling) Shape Oval Wound Length (cm) 1 cm Wound Width (cm) 0.8 cm Wound Surface Area (cm^2) 0.63 cm^2 Wound Depth (cm) 0.5 cm Wound Volume (cm^3) 0.209 cm^3 Drainage Description Serous Drainage Amount Scant State of Healing Early/partial granulation Non-staged Wound Description Full thickness Active Orders Date Order Priority Status Authorizing Provider 10/01/24 1413 Apply/Change Wound Dressing Right Heel Diabetic Ulcer Routine Active Rogers Wooten MD Wound Team Summary Assessment: Per assessment, patient has a diabetic ulcer to the right plantar heel a/e/b a round ulceration on the plantar surface of the heel. Wound base presents with a pale-pink wound base bordered by wound edges that are well defined and smooth. Periwound callous formation around the wound present. No obvious signs of infection. Wound Team Plan: RIGHT HEEL: Wash and dry area --> Spread Iodosorb 3mm thick onto gauze --> Place Iodosorb/gauze to wound --> Hold in place with Kerlex. Change dressing daily. - Wound Care will continue to follow. Cornell Hinojosa RN 10/01/2024 2:14 PM * Care Plan - Mundo Ramesh RN - 10/01/2024 1:37 PM EDT Problem: Adult Inpatient Plan of Care Goal: Plan of Care Review Outcome: Ongoing, Progressing Flowsheets Taken 10/01/2024 1332 by Mundo Ramesh RN Progress: improving Outcome Evaluation: Patient will Taken 10/01/2024 0046 by Shakira Olsen RN Plan of Care Reviewed With: patient Goal: Patient-Specific Goal (Individualized) Outcome: Ongoing, Progressing Flowsheets (Taken 10/01/2024 1333) Patient/Family-Specific Goals (Include Timeframe): Pt will be free from fall for duration of shift Individualized Care Needs: Safety, dialysis Anxieties, Fears or Concerns: RODERICK Goal: Absence of Hospital-Acquired Illness or Injury Outcome: Ongoing, Progressing Intervention: Identify and Manage Fall Risk Flowsheets (Taken 10/01/2024 1333) Safety Promotion/Fall Prevention: activity supervised assistive device/personal items within reach clutter-free environment maintained fall prevention program maintained lighting adjusted mobility aid in reach nonskid shoes/slippers when out of bed room organization consistent safety round/check completed toileting scheduled Intervention: Prevent and Manage VTE (Venous Thromboembolism) Risk Flowsheets (Taken 10/01/2024 1333) VTE Prevention/Management: medication bilateral SCDs (sequential compression devices) off patient refused intervention previous patient education reinforced Goal: Optimal Comfort and Wellbeing Outcome: Ongoing, Progressing Intervention: Monitor Pain and Promote Comfort Flowsheets (Taken 10/01/2024 1333) Pain Management Interventions: medication (see MAR) pillow support provided Goal: Readiness for Transition of Care Outcome: Ongoing, Progressing Problem: Skin Injury Risk Increased Goal: Skin Health and Integrity Outcome: Ongoing, Progressing Problem: Fall Injury Risk Goal: Absence of Fall and Fall-Related Injury Outcome: Ongoing, Progressing Intervention: Identify and Manage Contributors Flowsheets (Taken 10/01/2024 1333) Medication Review/Management: medications reviewed Self-Care Promotion: independence encouraged BADL personal objects within reach Problem: Wound Goal: Absence of Infection Signs and Symptoms Outcome: Ongoing, Progressing Goal: Skin Health and Integrity Outcome: Ongoing, Progressing Goal: Optimal Wound Healing Outcome: Ongoing, Progressing Problem: Hemodialysis Goal: Safe, Effective Therapy Delivery Outcome: Ongoing, Progressing Intervention: Optimize Device Care and Function Flowsheets (Taken 10/01/2024 1333) Medication Review/Management: medications reviewed Goal: Effective Tissue Perfusion Outcome: Ongoing, Progressing Goal: Absence of Infection Signs and Symptoms Outcome: Ongoing, Progressing Intervention: Prevent or Manage Infection Flowsheets (Taken 10/01/2024 1333) Infection Management: aseptic technique maintained Infection Prevention: hand hygiene promoted rest/sleep promoted single patient room provided Problem: Self-Care Deficit Goal: Improved Ability to Complete Activities of Daily Living Outcome: Ongoing, Progressing Intervention: Promote Activity and Functional [place] Flowsheets (Taken 10/01/2024 1333) Activity Assistance Provided: assistance, 1 person Self-Care Promotion: independence encouraged BADL personal objects within reach Problem: Infection Goal: Absence of Infection Signs and Symptoms Outcome: Ongoing, Progressing Intervention: Prevent or Manage Infection Flowsheets (Taken 10/01/2024 1333) Infection Management: aseptic technique maintained * Progress Notes - Jt Wesley - 10/01/2024 10:00 AM EDT Physical Therapy Evaluation/Discharge Patient Name: Aakash Fernandez Today's Date: 10/01/2024 PT Discharge Recommendations: residential facility (LTC) Equipment Recommended: Defer to facility History Mundo Fernandez is 64 y.o. male admitted 09/30/2024 for work-up of Declining functional status. Problem List Active Hospital Problems Diagnosis Date Noted 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 06/07/2024 Chronic kidney disease-mineral and bone disorder (CKD-MBD) 08/27/2023 Electrolyte and fluid disorder 06/07/2023 Anemia in chronic kidney disease (CODE) 04/30/2023 History of transmetatarsal amputation of foot ([facility]) 04/30/2023 Declining functional status 04/15/2023 Anxiety and depression 04/15/2022 Gastroesophageal reflux disease without esophagitis 04/15/2022 Dementia ([facility]) 02/18/2022 Chronic combined systolic (congestive) and diastolic (congestive) heart failure ([facility]) 02/18/2022 Insomnia, unspecified 12/22/2021 At high risk for falls 10/12/2021 ESRD (end stage renal disease) on dialysis ([facility]) 09/16/2021 Arterial insufficiency ([facility]) 05/18/2021 Mild intellectual disabilities 08/30/2019 Sensorineural hearing loss, bilateral 01/11/2018 Wears hearing aid in both ears 12/08/2017 Chronic hepatitis C without hepatic coma ([facility]) 06/03/2014 Type 2 diabetes mellitus with chronic kidney disease on chronic dialysis ([facility]) 11/15/2013 Essential (primary) hypertension 11/23/2011 Mixed hyperlipidemia 11/23/2011 Procedures Past Medical History Patient has a past medical history of Alcohol use disorder in remission, Anemia in chronic kidney disease (CODE) (04/30/2023), Anxiety, Arterial insufficiency ([facility]) (05/18/2021), Benign prostatichyperplasia, Central line-associated bloodstream infection (06/29/2022), Chronic combined systolic (congestive) and diastolic (congestive) heart failure ([facility]) (02/18/2022), Chronic hepatitis C without hepatic coma ([facility]) (06/03/2014), Dementia ([facility]) (02/18/2022), Depression, Diabetic peripheral neuropathy ([facility]), ESRD (end stage renal disease) on dialysis ([facility]) (09/16/2021), Essential hypertension (11/23/2011), GERD (gastroesophageal reflux disease), Hemorrhoids, Hyperlipidemia, Hypoparathyroidism (11/23/2011), Infection of AV graft for dialysis ([facility]) (02/18/2022), Insomnia, unspecified (12/22/2021), Methicillin resistant Staphylococcus aureus infection, unspecified site, Mild intellectual disabilities (08/30/2019), MSSA bacteremia (03/04/2022), 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 (06/07/2024), Sensorineural hearing loss, bilateral (01/11/2018), and Type 2 diabetes mellitus. Past Surgical History Patient has a past surgical history that includes Other surgical history (Right); Foot surgery (N/A); Other surgical history (Right); Cataract extraction w/ intraocular lens implant (N/A); Eye surgery (N/A); and Exploratory laparotomy. Precautions Medical Precautions: Fall precautions Subjective Pt severely [place] with no hearing aides donned or present in room. Pt stated I can't walk when asked how he was mobilizing prior to admission. Participants in Care Family/Caregiver Present: No Repair Operator: Not Applicable Presentation Oxygen Therapy: None (Room air) Lines and Tubes: Intravenous access Pre-Session: Supine, Head of bed elevated, Bed alarm, Lines intact Pre-Session Comments: RN gave consent to session. Post-Session: Sitting in chair, Chair alarm, Lines intact, RN notified, Call light in reach Post-Session Comments: All needs met and within reach. Heels floated with pillow, pt left in care of RN at end of session. Home Living/Set-up Home Type: [facility] Home Adaptive Equipment: Wheelchair-manual Home Living Comments: Pt unable to provide home living information and PLOF d/t impaired cognition and being hard of hearing (no hearing aides present in room). Per chart review, pt lives [place] [facility] and utilizes to mobilize. When asked how he transfers to/from pt stated I can't walk , it is presumed that he stands to pivot in order to transfer. Prior Level of Function Receives Help From: Caregiver Level of Mobility: Wheelchair/Scooter Mobility [place]: Assist with wheelchair propulsion Patient/Family Goals Objective Pain Pt unable to verbalize, no signs of distress noted during session. Pt positioned for comfort at endof session. Delirium Screening RASS: Alert and calm Confusion Assessment Method-ICU (CAM-ICU/PCAM-ICU) Feature 3: Altered Level of Consciousness: Negative Cognition Overall Cognitive Status: Impaired Arousal/Alertness: Appropriate responses to stimuli Mood/Behavior: Alert Orientation Level: Oriented to person, Disoriented to place, Disoriented to time, Disoriented to situation Orientation Level Comments: Increased time required for processing. Required simple, repeated questioning as pt is severely [place] with no hearing aides present in room. Unclear if pt truly understood questions but able to follow simple commands with gestures. Single Step Commands: Consistently Multi-Step Commands: With increased time, With repetition Method of Communication: Verbal Right Lower Extremity Examination RLE ROM Assessment RLE Assessment: Within Functional Limits (history of TMA) Manual Muscle Testing - RLE Manual Muscle Testing - RLE: (grossly 4/5 with mobility) Left Lower Extremity Examination LLE Assessment: Within Functional Limits (history of TMA) Manual Muscle Testing: Within functional limits except (grossly 4/5 with mobility) Bed Mobility Bed Mobility Exam: Scooting/Bridging Level of [place]: Stand-by assist Physical/Nonphysical Assist: Supervision Bed Mobility Exam: Supine to Sit Level of [place]: Stand-by assist Physical/Nonphysical Assist: Supervision, HOB elevated Transfers Transfer Exam: Sit to stand Level of [place]: Contact guard Physical/Nonphysical Assist: Supervision, Nonverbal cues (demo/gestures) Assistive Device: Walker, rolling Transfer Exam: Stand to Sit Level of [place]: Contact guard Physical/Nonphysical Assist: Supervision, Nonverbal cues (demo/gestures) Assistive Device: Walker, rolling Ambulation Device: Rolling walker Assistance: Contact guard assist Distance : 5ft Ambulation Comments: Increased trunk flexion and downward gaze, shuffling gait pattern with mild imbalance 2/2 history of bilateral TMA. No overt LOB noted, distance limited as pt indicated that he was cold and wished to sit in chair with blanket to warm up. Balance Static Sitting Balance Static Sitting-Balance Support: Right upper extremity support, Left upper extremity support, Feet supported Static Sitting-Level of Assistance: Supervision Dynamic Sitting Balance Dynamic Sitting-Balance Support: Right upper extremity support, Left upper extremity support, Feet supported Dynamic Sitting-Balance: Lateral weight shifts, Anterior/Posterior weight shifts Level of Assistance: Supervision Static Standing Balance Static Standing-Balance Support: Right upper extremity support, Left upper extremity support Static Standing-Level of Assistance: Standby assist Dynamic Standing Balance Dynamic Standing-Balance Support: Right upper extremity support, Left upper extremity support Dynamic Standing-Balance: Lateral weight shifts, Anterior/Posterior weight shifts Dynamic Standing Level of Assistance: Contact guard Therapeutic Activity (9 minutes) Increased time required for pt to process cueing from PT to initiate mobility including transfers and short amb. PT provided cueing for safe hand placement, LE placement, and anterior weight shift prior to initiating STS from EOB. PT provided cueing for RW management and upright posture with short shuffle steps to transfer to chair. Education provided to RN regarding level of assistance required for transfers, RN verbalized his understanding. Standardized Assessments Standardized Assessments Standardized Assessments: [facility] 6-Clicks Mobility Assessment [facility] 6-Clicks Mobility Assessment Difficulty patient has turning over in bed (including adjusting bedclothes, sheets, and blankets)?:None Difficulty patient has sitting down on and standing up from a chair with arms (wheelchair, bedside commode, etc.)?: None Difficulty patient has moving from lying on back to sitting on the side of the bed?: None How much help does the patient need moving to and from a bed to a chair (including a wheelchair)?: A little How much help does the patient need to walk in hospital room?: A little How much help does the patient need climbing 3-5 steps with a railing?: A lot [facility] 6-Clicks Mobility Assessment Total : 20 No data recorded Assessment Pt demonstrated the ability to perform all mobility with SBA-CGA for safety and use of RW when amb short distance in order to transfer to chair. Pt severely [place] with no hearing aides present in room,as a result pt's PLOF is somewhat unclear although he was able to verbalize that he was typically mobilizing with use of manual WC prior to admission and stated I can't walk . Pt will require SNF/LTC at discharge d/t impaired cognition and safety awareness. Pt will not be added to caseload as it is not expected for him to make significant gains in function and it appears as though he is at or close to his functional baseline. Pt does not require skilled PT at this time, PT will sign off. Impairments: Impaired cognition/safety awareness, Impaired executive functioning, Impaired hearing/auditory processing Activity Tolerance: Walking, Standing, Tolerates 30+ min activity without fatigue Diagnosis: Impaired functional mobility Rehab Potential: Fair, will monitor progress closely Barriers to Discharge: Comorbidities, Ability to acquire knowledge Eval Complexity History Profile: 3 or more personal factors and/or comorbidities Clinical Presentation: Stable and/or uncomplicated characteristics Clinical Decision Making: Low complexity PT Recommendations Discharge Destination: residential facility (LTC) Discharge Equipment: Defer to facility Plan Patient no longer demonstrates need for inpatient physical therapy services. Patient to be discharged from physical therapy. Written by Jt Wesley on 10/01/24 at 1:13 PM. * Progress Notes - Whitney Hinojosa - 10/01/2024 9:59 AM EDT Occupational Therapy Evaluation/Discharge Patient Name: Aakash Fernandez Today's Date: 10/01/2024 OT Discharge Recommendations: residential facility Equipment Recommended: Defer to facility History Mundo Fernandez is 64 y.o. male admitted 09/30/2024 for work-up of Declining functional status. Problem List Active Hospital Problems Diagnosis Date Noted ESRD (end stage renal disease) ([facility]) 09/30/2024 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 06/07/2024 Chronic kidney disease-mineral and bone disorder (CKD-MBD) 08/27/2023 Electrolyte and fluid disorder 06/07/2023 Anemia in chronic kidney disease (CODE) 04/30/2023 History of transmetatarsal amputation of foot ([facility]) 04/30/2023 Declining functional status 04/15/2023 Anxiety and depression 04/15/2022 Gastroesophageal reflux disease without esophagitis 04/15/2022 Dementia ([facility]) 02/18/2022 Chronic combined systolic (congestive) and diastolic (congestive) heart failure ([facility]) 02/18/2022 Insomnia, unspecified 12/22/2021 At high risk for falls 10/12/2021 ESRD (end stage renal disease) on dialysis ([facility]) 09/16/2021 Arterial insufficiency ([facility]) 05/18/2021 Mild intellectual disabilities 08/30/2019 Sensorineural hearing loss, bilateral 01/11/2018 Wears hearing aid in both ears 12/08/2017 Chronic hepatitis C without hepatic coma ([facility]) 06/03/2014 Type 2 diabetes mellitus with chronic kidney disease on chronic dialysis ([facility]) 11/15/2013 Essential (primary) hypertension 11/23/2011 Mixed hyperlipidemia 11/23/2011 Past Medical History Patient has a past medical history of Alcohol use disorder in remission, Anemia in chronic kidney disease (CODE) (04/30/2023), Anxiety, Arterial insufficiency ([facility]) (05/18/2021), Benign prostatichyperplasia, Central line-associated bloodstream infection (06/29/2022), Chronic combined systolic (congestive) and diastolic (congestive) heart failure ([facility]) (02/18/2022), Chronic hepatitis C without hepatic coma ([facility]) (06/03/2014), Dementia ([facility]) (02/18/2022), Depression, Diabetic peripheral neuropathy ([facility]), ESRD (end stage renal disease) on dialysis ([facility]) (09/16/2021), Essential hypertension (11/23/2011), GERD (gastroesophageal reflux disease), Hemorrhoids, Hyperlipidemia, Hypoparathyroidism (11/23/2011), Infection of AV graft for dialysis ([facility]) (02/18/2022), Insomnia, unspecified (12/22/2021), Methicillin resistant Staphylococcus aureus infection, unspecified site, Mild intellectual disabilities (08/30/2019), MSSA bacteremia (03/04/2022), 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 (06/07/2024), Sensorineural hearing loss, bilateral (01/11/2018), and Type 2 diabetes mellitus. Past Surgical History Patient has a past surgical history that includes Other surgical history (Right); Foot surgery (N/A); Other surgical history (Right); Cataract extraction w/ intraocular lens implant (N/A); Eye surgery (N/A); and Exploratory laparotomy. Precautions Left Lower Extremity Weight Bearing Status: Full weight Bearing Right Lower Extremity Weight Bearing Status: Full Weight Bearing Left Upper Extremity Weight Bearing Status : Full weight bearing Right Upper Extremity Weight Bearing Status : Full weight bearing ROM Precautions: none Medical Precautions: Fall precautions Subjective I can't hear Participants in Care Family/Caregiver Present: No Repair Operator: Not Applicable Presentation Oxygen Therapy: None (Room air) Lines and Tubes: Intravenous access Pre-Session: Supine, Head of bed elevated, Bed alarm, Lines intact Pre-Session Comments: RN gave consent to session. Post-Session: Sitting in chair, Chair alarm, Lines intact, RN notified, Call light in reach Post-Session Comments: All needs met and within reach. Heels floated with pillow, pt left in care of RN at end of session. Home Living/Set-up Lives With: (pt was living in a [place] [facility] [place], previously in a SNF until about a week ago.) Home Type: [facility] Home Adaptive Equipment: Wheelchair-manual Home Layout: One level Bathroom: Tub/Shower: Tub/Shower combo Home Living Comments: Pt unable to provide home living information and PLOF d/t impaired cognition and being hard of hearing (no hearing aides present in room). Per chart review, pt lives at a [place] [facility] [place] and utilizes to mobilize. When asked how he transfers to/from pt stated I can't walk , it is presumed that he stands to pivot in order to transfer. Prior Level of Function Receives Help From: Caregiver Level of Mobility: Wheelchair/Scooter Mobility [place]: Assist with wheelchair propulsion History of Falls: (PLOF unknown.) Patient/Family Goals Statement Pt wanted a warm blanket Objective Pain Pt did not report pain or appear uncomfortable. Delirium Screening RASS: Alert and calm Confusion Assessment Method-ICU (CAM-ICU/PCAM-ICU) Feature 1: Acute Onset or Fluctuating Course: Negative Feature 3: Altered Level of Consciousness: Negative Overall CAM-ICU/PCAM-ICU: Negative Cognition Overall Cognitive Status: Impaired Arousal/Alertness: Appropriate responses to stimuli Mood/Behavior: Alert Orientation Level: Oriented to person, Disoriented to place, Disoriented to time, Disoriented to situation Orientation Level Comments: Increased time required for processing. Required simple, repeated questioning as pt is severely [place] with no hearing aides present in room. Unclear if pt truly understood questions but able to follow simple commands with gestures. Single Step Commands: Consistently Multi-Step Commands: With increased time, With repetition Method of Communication: Verbal Right Upper Extremity Examination RUE ROM Assessment RUE Assessment: Within Functional Limits Manual Muscle Testing - RUE: Within functional limits Left Upper Extremity Examination LUE ROM Assessment LUE Assessment: Within Functional Limits Manual Muscle Testing - LUE: Within functional limits Right Lower Extremity Examination RLE ROM Assessment RLE Assessment: Within Functional Limits Manual Muscle Testing - RLE: (grossly 4/5 with mobility) Left Lower Extremity Examination LLE ROM Assessment LLE Assessment: Within Functional Limits Manual Muscle Testing: Within functional limits except (grossly 4/5 with mobility) Bed Mobility Bed Mobility Exam: Scooting/Bridging Level of [place]: Stand-by assist Physical/Nonphysical Assist: Supervision Bed Mobility Exam: Supine to Sit Level of [place]: Stand-by assist Physical/Nonphysical Assist: Supervision, HOB elevated Assistive Device: Bed rails Transfers Transfer Exam: Sit to stand Level of [place]: Contact guard Physical/Nonphysical Assist: Supervision, Nonverbal cues (demo/gestures) Assistive Device: Walker, rolling Transfer Exam: Stand to Sit Level of [place]: Contact guard Physical/Nonphysical Assist: Supervision, Nonverbal cues (demo/gestures) Assistive Device: Walker, rolling Transfer Exam: Bed to Chair/Chair to Bed Level of [place]: Contact guard Physical/Nonphysical Assist: Nonverbal cues (demo/gestures), Verbal Cues Type of Transfer: Sidesteps Assistive Device: Walker, rolling Balance Postural Appearance Posture: Stooped posture Static Sitting Balance Static Sitting-Balance Support: Right upper extremity support, Left upper extremity support, Feet supported Static Sitting-Level of Assistance: Supervision Dynamic Sitting Balance Dynamic Sitting-Balance Support: Right upper extremity support, Left upper extremity support, Feet supported Dynamic Sitting-Balance: Lateral weight shifts, Anterior/Posterior weight shifts Level of Assistance: Supervision Static Standing Balance Static Standing-Balance Support: Right upper extremity support, Left upper extremity support Static Standing-Level of Assistance: Standby assist Dynamic Standing Balance Dynamic Standing-Balance Support: Right upper extremity support, Left upper extremity support Dynamic Standing-Balance: Lateral weight shifts, Anterior/Posterior weight shifts Dynamic Standing Level of Assistance: Contact guard Self-Care Interventions Self Care/Home Management (ADLs) Time Entry: 9 Pt was able to don his shorts in long sitting in bed with SBA to assist with threading of right LE in pant leg. Pt was able to bridge and pull pants to waist. Feeding Feeding Level of Assistance: Setup Feeding Where Assessed: Chair Level Grooming Grooming Level of Assistance: Setup Grooming Where Assessed: Chair level UE Dressing UE Dressing Level of Assistance: Setup, Supervision UE Dressing Where Assessed: Edge of bed Lower Extremity Dressing Pants Level of Assistance: Setup, SBA Standardized Assessments [facility] 6-Click Daily Activities Help from Other: Don/Doff Regular Lower Body Clothings: Little Help From Other: Bathing: Little Help From Other: Toileting: Little Help From Other: Don/Doff Upper Body Clothings: None Help From Other: Grooming: None Help From Other: Eating Meals: None [facility] 6 Click - Daily Activities Score: 21 Assessment Pt was seen for OT evaluation. Pt appears to be functioning at his baseline and does not appear to demonstrate need for skilled OT services at this time. Eval Complexity Occupational Profile: Brief history including review of medical/therapy records relating to presenting problem Performance Deficits: Habits, Routines, Roles Clinical Decision Making: Low Overall Eval complexity: Low OT Recommendations Discharge Destination: residential facility Discharge Equipment: Defer to facility Plan Patient no longer demonstrates need for inpatient occupational therapy services. Patient to be discharged from occupational therapy. Written by Whitney Hinojosa on 10/01/24 at 4:37 PM. * Consults - Daphne Landry APRN, DNP - 10/01/2024 9:01 AM EDTAssociated Order(s): Inpatient consult to Nephrology Inpatient consult to Nephrology Consult performed by: Daphne Landry APRN, ADA Consult ordered by: Leda Gaitan MD Reason for consult: needs HD Nephrology Consult Note Patient: Mundo Fernandez Admit Date: 09/30/2024 Date of Consult: 10/01/2024 Time of Consult: 9:01 AM Requesting Attending: Tana Wooten, * Reason for Consult: needs HD HPI: Mr. Mundo Fernandez is a 62 y.o. male with ESRD on iHD MWF, T2DM, HTN, chronic HFrEF, PAD, HLD,IDD/dementia, depression/anxiety, insomnia, chronic HCV, DM foot ulcer c/b OM s/p bilateral transmetarsal amputation, and debility presented to [facility] on 09/30 after refusing care at [place] [facility] [place]. He brought to the ED for medical evaluation. Nephrology consulted for dialysis. On assessment, the patient is sitting up in a chair. He stated he is hard of hearing. We discussed performing dialysis tomorrow and he is agreeable. Per documentation he missed HD on 09/30; labs reviewed with no urgent indication for HD tomorrow. Patient's volume status is stable and he is on room air. ROS: ROS was obtained in 14 points and is negative except otherwise as noted in the HPI. History: Past Medical History[1] Problem List[2] Allergies[3] Family Hx: No known renal disease Social Hx: Tobacco Use Smoking status: Never Smokeless tobacco: Never Vaping Use Vaping Use: Never used Substance and Sexual Activity Alcohol use: Not Currently Drug use: Never Comment: Drug use: No drug use Sexual activity: Defer Other Topics Concern Not on file Social History Narrative Not on file Medications: Home Medications: Current Medications[4] Current Medications: Current Scheduled Medications[5] Current Continuous Medications[6] Physical Exam: Visit Vitals BP (!) 159/82 Pulse 70 Temp 36.4 ??C (97.6 ??F) Resp 16 Ht 1.778 m (5' 10 ) Wt 73.5 kg (162 lb 0.6 oz) SpO2 96% BMI 23.25 kg/m?? Smoking Status Never BSA 1.91 m?? GEN: no acute distress, sitting in chair, on room air SKIN : warm and dry, color normal, turgor normal, no lesions. EYES : anicteric, extraocular movements intact. ENMT : intact, mucous membranes moist HEAD/NECK : neck supple, no apparent injury. RESPIRATORY/THORAX : patent airways, clear to auscultation bilaterally, no rales appreciated CARDIOVASCULAR: regular rhythm, regular rate, no murmurs appreciated GASTROINTESTINAL: soft, NT, ND, NABSx4 EXTREMITIES: no LE edema, no rashes noted NEURO: Alert, hard of hearing, answers appropriately, follows commands ACCESS: RUE AVF Laboratory: Results from last 7 days Lab Units 09/30/24 1650 WBC 10*3/uL 8.92 HEMOGLOBIN g/dL 10.4* HEMATOCRIT % 29.8* MCV fL 91 PLATELETS 10*3/uL 121* Results from last 7 days Lab Units 09/30/24 1650 SODIUM mmol/L 131* POTASSIUM mmol/L 3.0* CHLORIDE mmol/L 90* CO2 mmol/L 28 BUN mg/dL 29* CREATININE mg/dL 7.58* GLUCOSE mg/dL 185* CALCIUM mg/dL 7.6* MAGNESIUM mg/dL 1.7* PHOSPHORUS mg/dL 3.3 BILIRUBIN TOTAL mg/dL 0.6 ALKALINE PHOSPHATASE U/L 42 ALT U/L 6* AST U/L 13 Lab Results Component Value Date USG 1.008 04/14/2023 FLORY >=8.5 (H) 04/14/2023 URINEPRO >=300 (A) 04/14/2023 GLUCOSEU 100 (A) 04/14/2023 BLOODU Trace (A) 04/14/2023 NITRITEU Negative 04/14/2023 URBC 4 - 10 (A) 04/14/2023 HYLCST 0 - 2 04/14/2023 BACTERIAU Present 04/14/2023 SQUAMOUS 3 - 5 04/14/2023 Lab Results Component Value Date NAPA 350 12/10/2018 NAUR 31 12/10/2018 CREATUR 158 12/10/2018 PROTUR 153 11/12/2018 UTPCR 1.5 (H) 11/12/2018 Lab Results Component Value Date FERRITIN 932 (H) 06/15/2023 TRANSFERNSAT 45 09/30/2024 IRON 66 09/30/2024 TIBC 146 (L) 09/30/2024 TRANSFERRIN 117 (L) 09/30/2024 Lab Results Component Value Date PTH <4 (L) 06/15/2023 VITD25 36.9 06/15/2023 ? Imaging: Impression & Plan: Mundo Fernandez is a 62 y.o. male with ESRD on iHD MWF, T2DM, HTN, chronic HFrEF, PAD, HLD, IDD/dementia, depression/anxiety, insomnia, chronic HCV, DM foot ulcer c/b OM s/p bilateral transmetarsal amputation, and debility presented to [facility] on 09/30 after refusing care at [place] [facility] [place]. Nephrology consulted for dialysis. Assessment: #ESRD on iHD - MWF at [facility] [address] [place] - AccesS: ISAURO BUTCHERG - EDW 67.5 Kg #HTN #Renal Osteodystrophy; secondary hyperparathyroidism #Anemia in ESRD #Disorders of electrolytes and acid/base due to renal insufficiency #Hypervolemia in renal insufficiency #Debility #T2DM #HFrEF #Dementia #Intellectual and developmental delay Recommendations and Plan - Last HD 09/27; no urgent indication for iHD today - Continue iHD MWF while admtited; 3hrs, BFR 300-400 mL/min, DFR 600-800 mL/min, 3.5K, 2.5Ca, 32HCO3, 136Na, UF 1L, T35.5 - Recommend to obtain Ferritin, TIBC, PTH, and Vit D - Renal diet as tolerated - Sevelamer held with P <4; will follow for Phos binder requirements - Strict I/Os and Daily weights - Management of other acute/chronic conditions per primary team - Avoid NSAIDs and other nephrotoxic mediations; Renally dose medications for ESRD on iHD. Please feel free to reach out if you have any questions or concerns. Daphne Landry APRN Division of Nephrology Epic Chat Note to patient: The Cures Act makes medical notes like these available to patients inthe interest of transparency. However, be advised this is a medical document. It is intended as peer to peer communication. It is written in medical language and may contain abbreviations or verbiagethat are unfamiliar. It may appear blunt or direct. Medical documents are intended to carry relevant information, facts as evident, and the clinical opinion of the practitioner. [1] Past Medical History: Diagnosis Date Alcohol use disorder in remission Anemia in chronic kidney disease (CODE) 04/30/2023 Anxiety Arterial insufficiency ([facility]) 05/18/2021 Benign prostatic hyperplasia Central line-associated bloodstream infection 06/29/2022 Chronic combined systolic (congestive) and diastolic (congestive) heart failure ([facility]) 02/18/2022 Chronic hepatitis C without hepatic coma ([facility]) 06/03/2014 Dementia ([facility]) 02/18/2022 Depression Diabetic peripheral neuropathy ([facility]) ESRD (end stage renal disease) on dialysis ([facility]) 09/16/2021 Essential hypertension 11/23/2011 GERD (gastroesophageal reflux disease) Hemorrhoids Hyperlipidemia Hypoparathyroidism 11/23/2011 Infection of AV graft for dialysis ([facility]) 02/18/2022 Added automatically from request for surgery [id number] Insomnia, unspecified 12/22/2021 Methicillin resistant Staphylococcus aureus infection, unspecified site Mild intellectual disabilities 08/30/2019 MSSA bacteremia 03/04/2022 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 06/07/2024 Sensorineural hearing loss, bilateral 01/11/2018 Type 2 diabetes mellitus [2] Patient Active Problem List Diagnosis ESRD (end stage renal disease) on dialysis ([facility]) Essential (primary) hypertension Type 2 diabetes mellitus with chronic kidney disease on chronic dialysis ([facility]) Wears hearing aid in both ears At high risk for falls Insomnia, unspecified Chronic combined systolic (congestive) and diastolic (congestive) heart failure ([facility]) Dementia ([facility]) Chronic hepatitis C without hepatic coma ([facility]) Arterial insufficiency ([facility]) BPH (benign prostatic hyperplasia) Diabetic peripheral neuropathy ([facility]) DM type 2 without retinopathy ([facility]) Gastroesophageal reflux disease without esophagitis Mixed hyperlipidemia Hypoparathyroidism Anxiety and depression Mild intellectual disabilities Sensorineural hearing loss, bilateral Non-ischemic cardiomyopathy ([facility]) Chronic osteomyelitis ([facility]) Declining functional status History of transmetatarsal amputation of foot ([facility]) Electrolyte and fluid disorder Anemia in chronic kidney disease (CODE) Chronic kidney disease-mineral and bone disorder (CKD-MBD) 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 Non-pressure 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 limited to breakdown of skin ([facility]) Non-pressure chronic ulcer of right heel and midfoot limited to breakdown of skin ([facility]) [3] No Known Allergies [4] Current Facility-Administered Medications: acetaminophen (Tylenol) tablet 650 mg, 650 mg, Oral, q6h PRN, Lucio, Gitana B, MEDICAL ADMINISTRATIVE TECHNICIAN aspirin chewable tablet 81 mg, 81 mg, Oral, Daily, Lucio, Gitana B, MEDICAL ADMINISTRATIVE TECHNICIAN atorvastatin (Lipitor) tablet 40 mg, 40 mg, Oral, Nightly, Lucio, Gitana B, MEDICAL ADMINISTRATIVE TECHNICIAN, 40 mg at 09/30/242155 bisacodyl (Dulcolax) EC tablet 10 mg, 10 mg, Oral, Daily PRN, Lucio, Gitana B, MEDICAL ADMINISTRATIVE TECHNICIAN carvedilol (Coreg) tablet 12.5 mg, 12.5 mg, Oral, BID, Lucio, Gitana B, MEDICAL ADMINISTRATIVE TECHNICIAN, 12.5 mg at 09/30/242155 clopidogrel (Plavix) tablet 75 mg, 75 mg, Oral, Daily, Lucio, Gitana B, MEDICAL ADMINISTRATIVE TECHNICIAN glucose (Glutose) 40 % oral gel 15-30 grams of glucose, 15-30 grams of glucose, Sublingual, q15 minPRN OR dextrose 10 % (D10W) bolus 125 mL, 125 mL, Intravenous, q15 min PRN OR dextrose 10 %(D10W) bolus 250 mL, 250 mL, Intravenous, q15 min PRN OR glucagon (human recombinant) injection1 mg, 1 mg, Intramuscular, q15 min PRN, Lala Valdes APRN divalproex sprinkle (Depakote Sprinkle) DR capsule 250 mg, 250 mg, Oral, BID, Lala Valdes, MEDICAL ADMINISTRATIVE TECHNICIAN,250 mg at 09/30/242155 heparin (porcine) injection 5,000 Units, 5,000 Units, Subcutaneous, q8h RAFAT, Lala Valdes MEDICAL ADMINISTRATIVE TECHNICIAN, 5,000 Units at 10/01/24 0532 insulin lispro (Admelog) 100 units/mL injection - Correction - Standard Dose, 0- 5 Units, Subcutaneous, TID with meals, Lala Valdes APRN insulin lispro (Admelog) injection - Correction - Nighttime Dose, 0-3 Units, Subcutaneous, Twice atnight, Lala Valdes APRN melatonin tablet 3 mg, 3 mg, Oral, Nightly, Lala Valdes MEDICAL ADMINISTRATIVE TECHNICIAN, 3 mg at 09/30/242155 mupirocin (Bactroban) 2 % ointment 1 Application, 1 Application, Each Nostril, BID, Tana Wooten MD NIFEdipine XL (Procardia XL) 24 hr tablet 30 mg, 30 mg, Oral, Daily, Lala Valdes MEDICAL ADMINISTRATIVE TECHNICIAN polyethylene glycol (Miralax) packet 17 g, 17 g, Oral, Daily, Lala Valdes MEDICAL ADMINISTRATIVE TECHNICIAN sertraline (Zoloft) tablet 75 mg, 75 mg, Oral, Daily, Lala Valdes MEDICAL ADMINISTRATIVE TECHNICIAN sevelamer carbonate (Renvela) tablet 800 mg, 800 mg, Oral, TID with meals, Lala Valdes MEDICAL ADMINISTRATIVE TECHNICIAN Insert peripheral IV, , , Once AND Saline lock IV, , , Once AND sodium chloride 0.9 % flush10 mL, 10 mL, Intravenous, q12h, 10 mL at 07/14/25 2110 AND sodium chloride 0.9 % flush 10 mL, 10 mL, Intravenous, PRN, Laal Valdes APRN [START ON 10/02/2024] sodium zirconium cyclosilicate (Lokelma) packet 10 g, 10 g, Oral, Daily beforebreakfast, Lala Valdes APRN traZODone (Desyrel) tablet 100 mg, 100 mg, Oral, Nightly, Lala Valdes APRN, 100 mg at 09/30/24 2156 Facility-Administered Medications Ordered in Other Encounters: lidocaine-EPINEPHrine (PF) (Xylocaine W/EPI) 1 %-1:938697 injection - Pyxis Override Pull, , , , lidocaine-EPINEPHrine (PF) (Xylocaine W/EPI) 1 %-1:984259 injection - Pyxis Override Pull, , , , [5] aspirin, 81 mg, Oral, Daily atorvastatin, 40 mg, Oral, Nightly carvedilol, 12.5 mg, Oral, BID clopidogrel, 75 mg, Oral, Daily divalproex sprinkle, 250 mg, Oral, BID heparin (porcine), 5,000 Units, Subcutaneous, q8h RAFAT insulin lispro, 0-5 Units, Subcutaneous, TID with meals insulin lispro, 0-3 Units, Subcutaneous, Twice at night melatonin, 3 mg, Oral, Nightly mupirocin, 1 Application, Each Nostril, BID NIFEdipine XL, 30 mg, Oral, Daily polyethylene glycol, 17 g, Oral, Daily sertraline, 75 mg, Oral, Daily sevelamer carbonate, 800 mg, Oral, TID with meals sodium chloride, 10 mL, Intravenous, q12h [START ON 10/02/2024] sodium zirconium cyclosilicate, 10 g, Oral, Daily before breakfast traZODone, 100 mg, Oral, Nightly [6] Cosigned by Donny Tovar MD at 10/01/2024 3:27 PM EDT Associated attestation - Donny Tovar MD - 10/01/2024 3:27 PM EDT I attest to being involved in providing substantive part of the medical decision making in patient care. 62 yo man with intellectual delay, ESRD admitted overnight due to inability to care for [place] [facility]. No immediate indications for HD, will resume tomorrow per home schedule. * Progress Notes - Leda Gaitan MD - 10/01/2024 8:45 AM EDT Images from the original note were not included. [facility] Medicine Inpatient Progress Note Patient: Mundo Fernandez PCP: Leonard Botello MD Date: 10/01/2024 Subjective Covered this morning with sheet and did not want to talk to me. Talked to renal on the hallway, no need for dialysis today Review of Systems Unable to perform ROS: Psychiatric disorder Objective INPATENT MEDICATIONS Current Medications[1] ALLERGIES Allergies[2] 24 HOUR VITALS Temp: [36.4 ??C (97.6 ??F)-36.7 ??C (98.1 ??F)] 36.4 ??C (97.6 ??F) Heart Rate: [64-73] 70 Resp: [16-18] 16 BP: (128-177)/(68-82) 159/82 INTAKE/OUTPUT No intake or output data in the 24 hours ending 10/01/24 0846 Physical Exam Constitutional: General: He is not in acute distress. Appearance: He is normal weight. He is not toxic-appearing. HENT: Head: Normocephalic. Right Ear: External ear normal. Left Ear: External ear normal. Nose: Nose normal. Mouth/Throat: Mouth: Mucous membranes are moist. Eyes: General: Right eye: No discharge. Left eye: No discharge. Extraocular Movements: Extraocular movements intact. Pupils: Pupils are equal, round, and reactive to light. Cardiovascular: Rate and Rhythm: Normal rate and regular rhythm. Pulmonary: Effort: Pulmonary effort is normal. Breath sounds: Normal breath sounds. Abdominal: General: Abdomen is flat. There is no distension. Musculoskeletal: General: No swelling, deformity or signs of injury. Cervical back: Normal range of motion and neck supple. Skin: General: Skin is warm. Findings: No lesion. Neurological: Mental Status: He is alert. Psychiatric: Attention and Perception: He is inattentive. Mood and Affect: Affect is inappropriate. Cognition and Memory: Cognition is impaired. Memory is impaired. Judgment: Judgment is impulsive. REVIEW OF LABORATORY DATA Lab Results Component Value Date WBC 8.92 09/30/2024 HGB 10.4 (L) 09/30/2024 HCT 29.8 (L) 09/30/2024 MCV 91 09/30/2024 PLT 121 (L) 09/30/2024 Lab Results Component Value Date GLUCOSE 185 (H) 09/30/2024 CALCIUM 7.6 (L) 09/30/2024 NA 131 (L) 09/30/2024 K 3.0 (L) 09/30/2024 CO2 28 09/30/2024 CL 90 (L) 09/30/2024 BUN 29 (H) 09/30/2024 CREATININE 7.58 (H) 09/30/2024 Lab Results Component Value Date ALT 6 (L) 09/30/2024 AST 13 09/30/2024 ALKPHOS 42 09/30/2024 BILITOT 0.6 09/30/2024 Lab Results Component Value Date INR 1.0 12/07/2022 REVIEW OF IMAGING STUDIES XR Chest 1 View Narrative: CLINICAL INDICATION: discharge clearance TECHNIQUE: XR CHEST 1 VIEW COMPARISON: April 28, 2023 FINDINGS: Small pleural effusions versus pleural thickening, decreased since prior. Low lung volumes with bilateral atelectasis. No consolidation. No pneumothorax. Impression: Decreased pleural effusions. CRITICAL RESULT: No. COMMUNICATION: Per this written report. Drafted by Mundo Martins MD on 08/25/2023 12:16 PM Final report signed by Mundo Martins MD on 08/25/2023 12:18 PM REVIEW OF PROCEDURES Assessment and Plan: Aakash Fernandez is a [place] 64 y.o. male with past history of ESRD on HD MWF, T2DM, HTN, chronic HFrEF, PAD, HLD, IDD/dementia, depression/anxiety, insomnia, chronic HCV, DM foot ulcer c/b OM s/p bilateral transmetarsal amputation, and debility sent [place] [facility] [place] ED for medical evaluationafter refusing care. Declining functional status - Transferred to [place] [facility] a week ago and since arrival refusing HD, to eat, participate, or take medications - sent to ED for medical evaluation and need for higher level of assist/unable to care for self/non-compliance - afebrile, VSS, no acute complaints PLAN - PT/OT consult re: placement - legal guardian is his brother, Chris Fernandez, #[phone] At high risk for falls - wheelchair dependent, fall precautions ESRD (end stage renal disease) on dialysis ([facility]) - Missed HD (MWF) , last session 3 days ago (09/27/2024) via RUE AVF - renally dose meds based on EGFR - strict I/O, daily weight - consulted Nephrology no plans for dialysis today Electrolyte and fluid disorder - switch lokelma daily to 10 mg on non-dialysis days - follow-up RFP, trend Na Chronic kidney disease-mineral and bone disorder (CKD-MBD) - continue Renvela 800 mg TID with meals Anemia in chronic kidney disease (CODE) - Hgb stable, transfuse to keep >7 - ferritin, iron studies Type 2 diabetes mellitus with chronic kidney disease on chronic dialysis ([facility]) - last A1c 4.8% over a year ago - presenting glucose 185, repeat A1c pending PLAN - ACHS regular SSI - hold home glargine 5U at bedtime while trend glucose/PO intake Dementia ([facility]) - Delirium precautions - Pharm med rec pending re: home Asenapine 3.8 mg daily Mild intellectual disabilities - last neuropsych exam in 2023 found to not have capacity, brother is legal guardian - continue Depakote Sprinkle 250 mg twice daily Anxiety and depression - continue sertraline 75 mg daily Insomnia, unspecified - continue trazodone 100 mg at bedtime, melatonin 3 mg at bedtime Essential (primary) hypertension - continue carvedilol 12.5 mg twice daily, nifedipine XL 30 mg daily (hold for BP <120/80 on dialysis days) Arterial insufficiency ([facility]) - continue aspirin 81 mg daily, clopidogrel 75 mg daily Mixed hyperlipidemia - continue atorvastatin 40 mg at bedtime 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 - continue statin, ASA, clopidogrel as above Gastroesophageal reflux disease without esophagitis - continue daily PPI Sensorineural hearing loss, bilateral - complicates all aspects of care Wears hearing aid in both ears - not present with patient on admission Chronic combined systolic (congestive) and diastolic (congestive) heart failure (CMS/HCC) - ECHO 06/27/2022: EF 45%, abnormal diastolic dysfunction - strict I/O, 2 L fluid restriction, cardiac/renal/CCHO2 diet Chronic hepatitis C without hepatic coma (CMS/HCC) - HCV RNA PCR not detected 07/13/2023 History of transmetatarsal amputation of foot (CMS/HCC) - chronic OM 2/2 DM foot ulcers s/p bilateral transmetarsal amputation Inpatient Checklist: Inpatient checklist: - Bowel regimen: ducolax - Code status: Full Code - Diet: PO - DVT prophylaxis: heparin - Disposition: placement CODE STATUS: Full Code EMERGENCY CONTACT: Extended Emergency Contact Information Primary Emergency Contact: Chris Fernandez Mobile Relation: Legal Guardian Preferred language: Kosovan Repair Operator needed? No Secondary Emergency Contact: Mariel Chavez Address: [address] [place] [address] Mobile Relation: [place] Developer Repair Operator needed? No Leda Kelley MD Double Surface Operator [facility] Certified Strategy Execution Consultant Pager [phone] [1] Current Facility-Administered Medications: acetaminophen (Tylenol) tablet 650 mg, 650 mg, Oral, q6h PRN, Lucio, Gitana B, MEDICAL ADMINISTRATIVE TECHNICIAN aspirin chewable tablet 81 mg, 81 mg, Oral, Daily, Lucio, Gitana B, MEDICAL ADMINISTRATIVE TECHNICIAN atorvastatin (Lipitor) tablet 40 mg, 40 mg, Oral, Nightly, Lucio, Gitana B, MEDICAL ADMINISTRATIVE TECHNICIAN, 40 mg at 09/30/242155 bisacodyl (Dulcolax) EC tablet 10 mg, 10 mg, Oral, Daily PRN, Lucio, Gitana B, MEDICAL ADMINISTRATIVE TECHNICIAN carvedilol (Coreg) tablet 12.5 mg, 12.5 mg, Oral, BID, Lucio, Gitana B, MEDICAL ADMINISTRATIVE TECHNICIAN, 12.5 mg at 09/30/242155 clopidogrel (Plavix) tablet 75 mg, 75 mg, Oral, Daily, Lucio, Gitana B, MEDICAL ADMINISTRATIVE TECHNICIAN glucose (Glutose) 40 % oral gel 15-30 grams of glucose, 15-30 grams of glucose, Sublingual, q15 minPRN OR dextrose 10 % (D10W) bolus 125 mL, 125 mL, Intravenous, q15 min PRN OR dextrose 10 %(D10W) bolus 250 mL, 250 mL, Intravenous, q15 min PRN OR glucagon (human recombinant) injection1 mg, 1 mg, Intramuscular, q15 min PRN, Lala Valdes APRN divalproex sprinkle (Depakote Sprinkle) DR capsule 250 mg, 250 mg, Oral, BID, Lala Valdes APRN,250 mg at 09/30/242155 heparin (porcine) injection 5,000 Units, 5,000 Units, Subcutaneous, q8h RAFAT, Lala Valdes APRN, 5,000 Units at 10/01/24 0532 insulin lispro (Admelog) 100 units/mL injection - Correction - Standard Dose, 0- 5 Units, Subcutaneous, TID with meals, Lala Valdes APRN insulin lispro (Admelog) injection - Correction - Nighttime Dose, 0-3 Units, Subcutaneous, Twice atnight, Lala Valdes APRN melatonin tablet 3 mg, 3 mg, Oral, Nightly, Lala Valdes APRN, 3 mg at 09/30/242155 mupirocin (Bactroban) 2 % ointment 1 Application, 1 Application, Each Nostril, BID, Tana Wooten MD NIFEdipine XL (Procardia XL) 24 hr tablet 30 mg, 30 mg, Oral, Daily, Lala Valdes APRN polyethylene glycol (Miralax) packet 17 g, 17 g, Oral, Daily, Lala Valdes APRN sertraline (Zoloft) tablet 75 mg, 75 mg, Oral, Daily, Lala Valdes APRN sevelamer carbonate (Renvela) tablet 800 mg, 800 mg, Oral, TID with meals, Lala Valdes APRN Insert peripheral IV, , , Once AND Saline lock IV, , , Once AND sodium chloride 0.9 % flush10 mL, 10 mL, Intravenous, q12h, 10 mL at 09/30/240 AND sodium chloride 0.9 % flush 10 mL, 10 mL, Intravenous, PRN, Lala Valdes APRN [START ON 10/02/2024] sodium zirconium cyclosilicate (Lokelma) packet 10 g, 10 g, Oral, Daily beforebreakfast, Lala Valdes APRN traZODone (Desyrel) tablet 100 mg, 100 mg, Oral, Nightly, Lala Valdes APRN, 100 mg at 09/30/246 Facility-Administered Medications Ordered in Other Encounters: lidocaine-EPINEPHrine (PF) (Xylocaine W/EPI) 1 %-1:977144 injection - Pyxis Override Pull, , , , lidocaine-EPINEPHrine (PF) (Xylocaine W/EPI) 1 %-1: injection - Pyxis Override Pull, , , , [2] No Known Allergies * Assessment & Plan Note - Lala Valdes APRN - 10/01/2024 6:37 AM EDT Associated Problem(s): Declining functional status - Transferred to [place] [facility] a [facility] ago and since arrival refusing HD, to eat, participate, or take medications - sent to ED for medical evaluation and need for higher level of assist/unable to care for self/non-compliance - afebrile, VSS, no acute complaints PLAN - PT/OT consult re: placement - legal guardian is his brother, Chris Fernandez, #[phone] * Assessment & Plan Note - Lala Valdes APRN - 10/01/2024 6:37 AM EDT Associated Problem(s): At high risk for falls - wheelchair dependent, fall precautions * Assessment & Plan Note - Lala Valdes APRN - 10/01/2024 6:37 AM EDT Associated Problem(s): ESRD (end stage renal disease) on dialysis ([facility]) - Missed HD (MWF) earlier today, last session 3 days ago (09/27/2024) via RUE AVF - Cr 7.58 PLAN - renally dose meds based on EGFR - strict I/O, daily weight - consult Nephrology in AM * Assessment & Plan Note - Lala Valdes APRN - 10/01/2024 6:37 AM EDT Associated Problem(s): Electrolyte and fluid disorder - potassium 3.0, magnesium 1.7 replaced per protocol PLAN - switch lokelma daily to 10 mg on non-dialysis days - follow-up RFP, trend Na * Assessment & Plan Note - Lala Valdes APRN - 10/01/2024 6:37 AM EDT Associated Problem(s): Anemia in chronic kidney disease (CODE) - Hgb stable, transfuse to keep >7 - ferritin, iron studies * Assessment & Plan Note - Lala Valdes APRN - 10/01/2024 6:37 AM EDT Associated Problem(s): Type 2 diabetes mellitus with chronic kidney disease on chronic dialysis ([facility]) - last A1c 4.8% over a year ago - presenting glucose 185, repeat A1c pending PLAN - ACHS regular SSI - hold home glargine 5U at bedtime while trend glucose/PO intake * Assessment & Plan Note - Lala Valdes APRN - 10/01/2024 6:37 AM EDT Associated Problem(s): Dementia ([facility]) - Delirium precautions - Pharm med rec pending re: home Asenapine 3.8 mg daily * Assessment & Plan Note - Lala Valdes APRN - 10/01/2024 6:37 AM EDT Associated Problem(s): Mild intellectual disabilities - last neuropsych exam in 2023 found to not have capacity, brother is legal guardian - continue Depakote Sprinkle 250 mg twice daily * Assessment & Plan Note - Lala Valdes APRN - 10/01/2024 6:37 AM EDT Associated Problem(s): Anxiety and depression - continue sertraline 75 mg daily * Assessment & Plan Note - Lala Valdes APRN - 10/01/2024 6:37 AM EDT Associated Problem(s): Insomnia, unspecified - continue trazodone 100 mg at bedtime, melatonin 3 mg at bedtime * Assessment & Plan Note - Lala Valdes APRN - 10/01/2024 6:37 AM EDT Associated Problem(s): Essential (primary) hypertension - continue carvedilol 12.5 mg twice daily, nifedipine XL 30 mg daily (hold for BP <120/80 on dialysis days) * Assessment & Plan Note - Lala Valdes APRN - 10/01/2024 6:37 AM EDT Associated Problem(s): Arterial insufficiency (CMS/HCC) - continue aspirin 81 mg daily, clopidogrel 75 mg daily * Assessment & Plan Note - Lala Valdes APRN - 10/01/2024 6:37 AM EDT Associated Problem(s): Mixed hyperlipidemia - continue atorvastatin 40 mg at bedtime * Assessment & Plan Note - Lala Valdes APRN - 10/01/2024 6:37 AM EDT Associated Problem(s): 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 - continue statin, ASA, clopidogrel as above * Assessment & Plan Note - Lala Valdes APRN - 10/01/2024 6:37 AM EDT Associated Problem(s): Gastroesophageal reflux disease without esophagitis - continue daily PPI * Assessment & Plan Note - Lala Valdes APRN - 10/01/2024 6:37 AM EDT Associated Problem(s): Sensorineural hearing loss, bilateral - complicates all aspects of care * Assessment & Plan Note - Lala Valdes APRN - 10/01/2024 6:37 AM EDT Associated Problem(s): Wears hearing aid in both ears - not present with patient on admission * Assessment & Plan Note - Lala Valdes APRN - 10/01/2024 6:37 AM EDT Associated Problem(s): Chronic combined systolic (congestive) and diastolic (congestive) heart failure (CMS/HCC) - ECHO 06/27/2022: EF 45%, abnormal diastolic dysfunction - strict I/O, 2 L fluid restriction, cardiac/renal/CCHO2 diet * Assessment & Plan Note - Lala Valdes APRN - 10/01/2024 6:37 AM EDT Associated Problem(s): Chronic hepatitis C without hepatic coma (CMS/HCC) - HCV RNA PCR not detected 07/13/2023 * Assessment & Plan Note - Lala Valdes APRN - 10/01/2024 6:37 AM EDT Associated Problem(s): History of transmetatarsal amputation of foot (CMS/HCC) - chronic OM 2/2 DM foot ulcers s/p bilateral transmetarsal amputation * Assessment & Plan Note - Lala Valdes APRN - 10/01/2024 5:23 AM EDT Associated Problem(s): Chronic kidney disease-mineral and bone disorder (CKD-MBD) - continue Renvela 800 mg TID with meals * Nursing Note - Shakira Olsen RN - 10/01/2024 4:21 AM EDT Provider Lala Valdes APRN said consulting nephrology in AM for HD since he missed today. I am okay with his AM labs that I put for 0600 being collected during HD . Since pt is confused, irritable and refused treatment, will pass on to dayshift nurse and ask dialysis nurse to draw the labs during dialysis. * Care Plan - Shakira Olsen RN - 10/01/2024 12:52 AM EDT Problem: Adult Inpatient Plan of Care Goal: Plan of Care Review Outcome: Ongoing, Progressing Flowsheets (Taken 10/01/202445) Progress: improving Plan of Care Reviewed With: patient Goal: Patient-Specific Goal (Individualized) Outcome: Ongoing, Progressing Flowsheets (Taken 09/30/2024 2100) Patient/Family-Specific Goals (Include Timeframe): Pt will be free from fall or injury during the shift. Individualized Care Needs: safety, dialysis Anxieties, Fears or Concerns: I'm hungry. Problem: Skin Injury Risk Increased Goal: Skin Health and Integrity Outcome: Ongoing, Progressing Intervention: Optimize Skin Protection Flowsheets (Taken 10/01/202445) Activity Management: activity adjusted per tolerance Pressure Reduction Techniques: heels elevated off bed Pressure Reduction Devices: specialty bed utilized Skin Protection: transparent dressing maintained Head of Bed (HOB) Positioning: HOB at 30 degrees Intervention: Promote and Optimize Oral Intake Flowsheets (Taken 10/01/202445) Oral Nutrition Promotion: physical activity promoted Nutrition Interventions: food preferences provided Problem: Fall Injury Risk Goal: Absence of Fall and Fall-Related Injury Outcome: Ongoing, Progressing Intervention: Identify and Manage Contributors Flowsheets (Taken 10/01/202445) Medication Review/Management: medications reviewed Self-Care Promotion: independence encouraged Intervention: Promote Injury-Free Environment Flowsheets (Taken 10/01/202445) Safety Promotion/Fall Prevention: activity supervised clutter-free environment maintained fall prevention program maintained nonskid shoes/slippers when out of bed room organization consistent toileting scheduled Note: Bed alarm on zone 2 Problem: Wound Goal: Absence of Infection Signs and Symptoms Outcome: Ongoing, Progressing Intervention: Prevent or Manage Infection Flowsheets (Taken 10/01/202445) Isolation Precautions: protective Goal: Skin Health and Integrity Outcome: Ongoing, Progressing Intervention: Optimize Skin Protection Flowsheets (Taken 10/01/202445) Activity Management: activity adjusted per tolerance Pressure Reduction Techniques: heels elevated off bed Pressure Reduction Devices: specialty bed utilized Skin Protection: adhesive use limited frequent weight shift encouraged Head of Bed (HOB) Positioning: HOB at 30 degrees Goal: Optimal Wound Healing Outcome: Ongoing, Progressing Intervention: Promote Wound Healing Flowsheets (Taken 10/01/202445) Sleep/Rest Enhancement: awakenings minimized noise level reduced room darkened Problem: Hemodialysis Goal: Safe, Effective Therapy Delivery Outcome: Ongoing, Progressing Intervention: Optimize Device Care and Function Flowsheets (Taken 10/01/202445) Medication Review/Management: medications reviewed Goal: Effective Tissue Perfusion Outcome: Ongoing, Progressing Intervention: Optimize Blood Flow Flowsheets (Taken 10/01/202445) Stabilization Measures: verbal stimulation provided Goal: Absence of Infection Signs and Symptoms Outcome: Ongoing, Progressing Intervention: Prevent or Manage Infection Flowsheets (Taken 10/01/202445) Infection Prevention: hand hygiene promoted single patient room provided Problem: Self-Care Deficit Goal: Improved Ability to Complete Activities of Daily Living Outcome: Ongoing, Progressing Intervention: Promote Activity and Functional [place] Flowsheets (Taken 10/01/202445) Activity Assistance Provided: assistance, 1 person Self-Care Promotion: independence encouraged * H&P - Lala Valdes APRN - 09/30/2024 7:35 PM EDTAssociated Order(s): Consult to [facility] Images from the original note were not included. Consult to [facility] Consult performed by: Lala Valdes, EVERT Consult ordered by: Lesvia Adrian MD Reason for consult: Functional decline Subjective Chief complaint Refusing care History Of Present Illness Aakash Fernandez is a [place] 64 y.o. male with past history of ESRD on HD MWF, T2DM, HTN, chronic HFrEF, PAD, HLD, IDD/dementia, depression/anxiety, insomnia, chronic HCV, DM foot ulcer c/b OM s/p bilateral transmetarsal amputation, and debility sent from his [place] [facility] to ED for medical evaluationafter refusing care. Patient is extremely [place] and not wearing hearing aids limiting exam, therefore history obtained from chart review and Mariel (#[phone]) at his [place] [facility]. Unable to reach his legal guardian and brother, Chris Fernandez, at #[phone]. She reports that patient transferred a week ago to [place] [facility] after residing in a correction for the past year with an increased level of assist. Since arriving patient has been refusing dialysis, to eat, participate, or take his medications. Earlier todayhe missed HD, last session 3 days ago on 09/27/2024. The [place] [facility] believes he needs a higher level of care given functional decline, thus transferred him to ED for placement. Patient otherwise at baseline without complaint, repetitively asking for a Coke with chicken and dumplings . Afebrile, VSS. Labs pertinent for Cr 7.58, potassium 3.0, magnesium 1.7, sodium 131. EKG no acute ST-T changes. HM at consulted to admit. Medical/Surgical/Social/Family History I have reviewed and updated the patient history. Travel History Relevant International Travel History: Travel Screening Question Response Have you been in contact with someone who was sick? Unable to assess Do you have any of the following new or worsening symptoms? Unable to assess Have you traveled internationally or domestically in the last month? Unable to assess Travel History Travel since 08/31/24 No documented travel since 08/31/24 Relevant Domestic Travel History: None Immunizations Reviewed Allergies Patient has no known allergies. Outpatient medications in system Home Medications[1] Medications ordered for hospitalization Current Scheduled Medications[2] Current Continuous Medications[3] Current PRN Medications[4] Objective Review of Systems Unable to perform ROS: Other ([place], IDD/Dementia) Constitutional: Positive for activity change and appetite change. Negative for chills, diaphoresis,fatigue, fever and unexpected weight change. HENT: Positive for hearing loss. Negative for congestion, dental problem, ear discharge, ear pain, mouth sores, rhinorrhea, sinus pressure, sinus pain, sore throat, trouble swallowing and voice change. Eyes: Negative. Respiratory: Positive for choking. Negative for apnea, cough, shortness of breath and wheezing. Not on home O2 or CPAP at baseline. Cardiovascular: Negative for chest pain, palpitations and leg swelling. Gastrointestinal: Negative for abdominal pain, blood in stool, constipation, diarrhea, nausea and vomiting. Endocrine: Negative. Genitourinary: Negative for decreased urine volume, difficulty urinating, dysuria, flank pain, frequency, hematuria and urgency. Unclear if still produces urine Musculoskeletal: Positive for gait problem (wheelchair 2/2 high fall risk but still attempts to walk). Negative for arthralgias, back pain, joint swelling and myalgias. Skin: Positive for wound (chronic risk for breakdown). Allergic/Immunologic: Negative. Neurological: Positive for tremors (RUE) and weakness. Negative for dizziness, seizures, syncope, facial asymmetry, speech difficulty, light-headedness, numbness and headaches. Hematological: Negative. Psychiatric/Behavioral: Positive for confusion. Negative for agitation, behavioral problems, hallucinations, sleep disturbance and suicidal ideas. Physical Exam Vitals reviewed. Constitutional: General: He is not in acute distress. Appearance: Normal appearance. He is normal weight. He is ill-appearing (chronically). HENT: Head: Normocephalic and atraumatic. Right Ear: Decreased hearing noted. Left Ear: Decreased hearing noted. Nose: Nose normal. Mouth/Throat: Pharynx: Oropharynx is clear. Eyes: Extraocular Movements: Extraocular movements intact. Conjunctiva/sclera: Conjunctivae normal. Pupils: Pupils are equal, round, and reactive to light. Cardiovascular: Rate and Rhythm: Normal rate and regular rhythm. Pulses: Dorsalis pedis pulses are 1+ on the right side and 1+ on the left side. Posterior tibial pulses are 1+ on the right side and 1+ on the left side. Heart sounds: Normal heart sounds. No murmur heard. No friction rub. No gallop. Arteriovenous access: Right arteriovenous access is present. Comments: Weak thrill, +bruit to RUE AVF. Pulmonary: Effort: Pulmonary effort is normal. Breath sounds: Normal breath sounds. Abdominal: General: Abdomen is protuberant. Bowel sounds are normal. Palpations: Abdomen is soft. Tenderness: There is no abdominal tenderness. There is no right CVA tenderness, left CVA tenderness, guarding or rebound. Musculoskeletal: Cervical back: Neck supple. Right lower leg: No edema. Left lower leg: No edema. Right foot: Normal range of motion and normal capillary refill. Deformity present. No swelling. Normal pulse. Left foot: Normal range of motion and normal capillary refill. Deformity present. No swelling. Normal pulse. Amputation Right Lower Extremity: Right leg is amputated below ankle. (transmetatarsal) Amputation Left Lower Extremity: Left leg is amputated below ankle. (transmetarsal) Lymphadenopathy: Cervical: No cervical adenopathy. Skin: General: Skin is warm and dry. Capillary Refill: Capillary refill takes less than 2 seconds. Neurological: General: No focal deficit present. Mental Status: He is alert. Mental status is at baseline. Comments: Oriented to person and place. Psychiatric: Mood and Affect: Mood normal. Affect is labile. Speech: Speech is slurred. Behavior: Behavior normal. Behavior is cooperative. Cognition and Memory: Cognition is impaired. Memory is impaired. Last Recorded Vitals Blood pressure (!) 146/69, pulse 64, temperature 36.7 ??C (98.1 ??F), temperature source Oral, resp. rate 16, height 1.778 m (5' 10 ), weight 73.5 kg (162 lb 0.6 oz), SpO2 92%. Results Review {Vanishing Link Review Results :[id number] I have reviewed the latest lab and imaging results. Assessment & Plan Declining functional status - Transferred [place] [facility] a [facility] ago and since arrival refusing HD, to eat, participate, or take medications - sent to ED for medical evaluation and need for higher level of assist/unable to care for self/non-compliance - afebrile, VSS, no acute complaints PLAN - PT/OT consult re: placement - legal guardian is his brother, Chris Fernandez, #[phone] At high risk for falls - wheelchair dependent, fall precautions ESRD (end stage renal disease) on dialysis ([facility]) - Missed HD (MWF) earlier today, last session 3 days ago (09/27/2024) via [facility] - Cr 7.58 PLAN - renally dose meds based on EGFR - strict I/O, daily weight - consult Nephrology in AM Electrolyte and fluid disorder - potassium 3.0, magnesium 1.7 replaced per protocol PLAN - switch lokelma daily to 10 mg on non-dialysis days - follow-up RFP, trend Na Chronic kidney disease-mineral and bone disorder (CKD-MBD) - continue Renvela 800 mg TID with meals Anemia in chronic kidney disease (CODE) - Hgb stable, transfuse to keep >7 - ferritin, iron studies Type 2 diabetes mellitus with chronic kidney disease on chronic dialysis ([facility]) - last A1c 4.8% over a year ago - presenting glucose 185, repeat A1c pending PLAN - ACHS regular SSI - hold home glargine 5U at bedtime while trend glucose/PO intake Dementia ([facility]) - Delirium precautions - Pharm med rec pending re: home Asenapine 3.8 mg daily Mild intellectual disabilities - last neuropsych exam in 2023 found to not have capacity, brother is legal guardian - continue Depakote Sprinkle 250 mg twice daily Anxiety and depression - continue sertraline 75 mg daily Insomnia, unspecified - continue trazodone 100 mg at bedtime, melatonin 3 mg at bedtime Essential (primary) hypertension - continue carvedilol 12.5 mg twice daily, nifedipine XL 30 mg daily (hold for BP <120/80 on dialysis days) Arterial insufficiency ([facility]) - continue aspirin 81 mg daily, clopidogrel 75 mg daily Mixed hyperlipidemia - continue atorvastatin 40 mg at bedtime 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 - continue statin, ASA, clopidogrel as above Gastroesophageal reflux disease without esophagitis - continue daily PPI Sensorineural hearing loss, bilateral - complicates all aspects of care Wears hearing aid in both ears - not present with patient on admission Chronic combined systolic (congestive) and diastolic (congestive) heart failure ([facility]) - ECHO 06/27/2022: EF 45%, abnormal diastolic dysfunction - strict I/O, 2 L fluid restriction, cardiac/renal/CCHO2 diet Chronic hepatitis C without hepatic coma ([facility]) - HCV RNA PCR not detected 07/13/2023 History of transmetatarsal amputation of foot ([facility]) - chronic OM 2/2 DM foot ulcers s/p bilateral transmetarsal amputation Venous thromboembolism prophylaxis Patient on heparin (porcine) Diet Dietary Orders (From admission, onward) Start Ordered 10/01/24 0638 Adult diet Diet texture: Regular; Carbohydrate restriction: Consistent Carb 2 (80 gm max/meal); Sodium restriction: 2,000 mg Na; Fat restriction: Cardiac; Electrolyte Restriction: Renal; Dietary fluid restriction / 24h: 2000 ml Fluid Diet effective now References: IDDSI Diet Texture Guide Question Answer Comment Diet texture Regular Carbohydrate restriction: Consistent Carb 2 (80 gm max/meal) Sodium restriction: 2,000 mg Na Fat restriction: Cardiac Electrolyte Restriction: Renal Dietary fluid restriction / 24h: 2000 ml Fluid 10/01/24 0637 Code Status Full Code [1] Medications Prior to Admission Medication Sig Dispense Refill atorvastatin (Lipitor) 80 MG tablet Take 1 tablet (80 mg) by mouth 1 (one) time each day. calcitriol (Rocaltrol) 0.25 MCG capsule Take 1 capsule (0.25 mcg total) by mouth 1 (one) time each day. (Patient not taking: Reported on 04/17/2023) 30 capsule 3 calcium acetate (Phoslo) 667 MG capsule Take 1 capsule (667 mg) by mouth 3 (three) times a day withmeals. carvedilol (Coreg) 25 MG tablet Take 1 tablet (25 mg) by mouth 1 (one) time each day. 30 tablet 0 cholecalciferol (Vitamin D-3) 50 MCG (2000 UT) capsule Take 1 capsule (2,000 Units total) by mouth 1 (one) time each day. 30 capsule 3 Epoetin Rj-epbx (Retacrit) 08368 UNIT/ML injection Inject 13,400 Units/kg under the skin 3 (three) times a week. iron sucrose (Venofer) 20 MG/ML injection Infuse 5 mL (100 mg) into a venous catheter 1 (one) time in dialysis. NIFEdipine XL (Procardia XL) 30 MG 24 hr tablet Take 3 tablets (90 mg) by mouth 1 (one) time each day at the same time. Do not crush, chew, or split. 90 tablet 0 pantoprazole (Protonix) 40 MG EC tablet Take 1 tablet (40 mg) by mouth 1 (one) time each day beforebreakfast. Do not crush, chew, or split. QUEtiapine (SEROquel) 25 MG tablet Take 1 tablet (25 mg) by mouth 2 (two) times a day. sertraline (Zoloft) 100 MG tablet Take 1 tablet (100 mg) by mouth 1 (one) time each day. traZODone (Desyrel) 100 MG tablet Take 1 tablet (100 mg) by mouth every night. 30 tablet 2 [2] aspirin, 81 mg, Oral, Daily atorvastatin, 40 mg, Oral, Nightly carvedilol, 12.5 mg, Oral, BID clopidogrel, 75 mg, Oral, Daily divalproex sprinkle, 250 mg, Oral, BID heparin (porcine), 5,000 Units, Subcutaneous, q8h RAFAT insulin lispro, 0-5 Units, Subcutaneous, TID with meals insulin lispro, 0-3 Units, Subcutaneous, Twice at night melatonin, 3 mg, Oral, Nightly mupirocin, 1 Application, Each Nostril, BID NIFEdipine XL, 30 mg, Oral, Daily polyethylene glycol, 17 g, Oral, Daily sertraline, 75 mg, Oral, Daily sevelamer carbonate, 800 mg, Oral, TID with meals sodium chloride, 10 mL, Intravenous, q12h [START ON 10/02/2024] sodium zirconium cyclosilicate, 10 g, Oral, Daily before breakfast traZODone, 100 mg, Oral, Nightly [3] [4] PRN medications: acetaminophen, bisacodyl, glucose OR dextrose 10 % OR dextrose 10 % OR glucagon (human recombinant), Insert peripheral IV AND Saline lock IV AND sodium chloride AND sodium chloride * ED Provider Notes - Lesvia Adrian MD - 09/30/2024 3:24 PM EDT Images from the original note were not included. - HPI Chief Complaint Patient presents with Medical Evaluation The patient is a 64-year-old male with a history of ESRD on dialysis Monday, hypertension, chronic foot wound, osteo, history of alcohol abuse, CHF, hard of hearing who presents to the ED today from his [place] [facility] for refusing to participate in care. On my evaluation, patient has no complaints and is just requesting food and a blanket. He is very hard of hearing so history is difficult to obtain. Further history is obtained from patient's caregiver, Mariel at his [place] [facility] (# [phone]). Shestates that the patient has been in a correction for the last year with a high level of assist. One week ago he was transferred from the correction to her [place] [facility] under her groups care. She says since he has been there, he has been refusing to take his medications, refusing dialysis, refusing to participate or eat. He did miss dialysis today, his last dialysis was on Wednesday 09/27 (3 days ago). His care facility believes he needs higher level of assistance and so they sent him to the ED tomasa admitted for placement. She says he has no new complaints or concerns other than that his brother, listed in chart is his POA. Patient History Past Medical History[1] Surgical History[2] Family History[3] Social History[4] Allergies: Allergies[5] Physical Exam ED Triage Vitals [09/30/24 1537] Temp Heart Rate Resp BP 36.6 ??C (97.8 ??F) 73 18 128/68 SpO2 Temp src Heart Rate Source Patient Position 93 % -- Monitor -- BP Location FiO2 (%) -- -- Physical Exam Constitutional: Appearance: Normal appearance. HENT: Head: Normocephalic. Nose: Nose normal. Mouth/Throat: Mouth: Mucous membranes are moist. Cardiovascular: Rate and Rhythm: Normal rate and regular rhythm. Pulmonary: Effort: Pulmonary effort is normal. Abdominal: General: Abdomen is flat. Musculoskeletal: General: Normal range of motion. Cervical back: Normal range of motion. Skin: General: Skin is warm. Neurological: General: No focal deficit present. Mental Status: He is alert. Mental status is at baseline. Psychiatric: Mood and Affect: Mood normal. No data recorded ED Course & MDM - Assessment: 64 y.o. male presents to ED with complaint of needing placement, missing dialysis. It should be noted that the chronic conditions includes ESRD, DM, CHF, which currently is not at goal therapy. This complicates the clinical picture because it Comorbidities: may be exacerbating symptoms and increases the amount and complexity of data to be reviewed Differential Diagnosis: infectious, medication noncompliance In order to fully explore the differential diagnosis the following treatments and tests were ordered: All Other Orders Ordered Status Ordering Provider 09/30/24 1910 ED to floor bed request Once Acknowledged LESVIA ADRIAN 09/30/24 1909 Consult to [facility] Once Specialty: Internal Medicine Provider: (Not yet assigned) Acknowledged LESVIA ADRIAN 09/30/24 1752 Off-Cycle Tray Request for Patient Once Comments: Pt would like chicken tenders if possible. Please bring to ED as pt is boarding to be admitted to hospital Completed LESVIA ADRIAN 09/30/24 1725 Once Specialty: Family Medicine Provider: (Not yet assigned) Canceled LESVIA ADRIAN 09/30/24 1725 Once Canceled LESVIA ADRIAN 09/30/24 1600 EKG now - STAT (adult) Once Final result LESVIA ADRIAN 09/30/24 1556 C-Reactive protein STAT Final result LESVIA ADRIAN 09/30/24 1549 Magnesium STAT Final result LESVIA ADRIAN 09/30/24 1549 Phosphorus STAT Final result LESVIA ADRIAN 09/30/24 1548 CBC w/diff STAT Final result LESVIA ADRIAN 09/30/24 1548 CMP STAT Final result LESVIA ADRIAN 09/30/24 1548 Insert peripheral IV Once Acknowledged LESVIA ADRIAN 09/30/24 1548 Adult diet Diet texture: Regular Diet effective now Acknowledged LESVIA ADRIAN Patient has no complaints on my exam. Requesting food and blanket and light turned off. Since he missed dialysis today, basic labs including CBC, CMP were ordered as well as EKG. These were unremarkable. Patient will be admitted for placement. Clinical Impressions as of 09/30/24 193 ESRD (end stage renal disease) ([facility]) Noncompliance by refusing service Social Determinates of Health Risks (including Economic Stability, Education and level of understanding, Healthcare access and quality and concerning social factors): Poor health literacy and Poor social support Ultimately, this patient was Was admitted (Admission) The primary encounter diagnosis was ESRD (end stage renal disease) ([facility]). A diagnosis of Noncompliance by refusing service was also pertinent to this visit.. Patient believed to require admission for the listed diagnoses. The Internal medicine service was consulted for admission andwas agreeable to admit to Acute Floor (Med/Surg). Disposition Admit Requested Location: [facility] [[id number]] - [1] Past Medical History: Diagnosis Date Bacteremia associated with intravascular line 06/28/2022 Central line-associated bloodstream infection 06/29/2022 Chronic combined systolic (congestive) and diastolic (congestive) heart failure ([facility]) 02/18/2022 Chronic hepatitis C without hepatic coma ([facility]) 06/03/2014 Conversions - Other Depression Conversions - Other Diabetic Peripheral Neuropathy Conversions - Other Hearing Loss Conversions - Other Hemorrhoids Conversions - Other Mitral Valve Disorder Conversions - Other Obesity Conversions - Other Skin: A Rash Dementia ([facility]) 02/18/2022 ESRD (end stage renal disease) on dialysis ([facility]) 09/16/2021 Essential hypertension 11/23/2011 Methicillin resistant Staphylococcus aureus infection, unspecified site MRSA (methicillin resistant Staphylococcus aureus) Methicillin resistant Staphylococcus aureus infection, unspecified site MRSA (methicillin resistant Staphylococcus aureus) MSSA bacteremia 03/04/2022 Personal history of other endocrine, nutritional and metabolic disease History of diabetes mellitus Personal history of urinary (tract) infections History of urinary tract infection Type 2 diabetes mellitus with mild nonproliferative diabetic retinopathy without macular edema, bilateral Non-proliferative diabetic retinopathy, mild, both eyes [2] Past Surgical History: Procedure Laterality Date CATARACT EXTRACTION W/ INTRAOCULAR LENS IMPLANT N/A Cataract Phacoemulsification With Intraocular Lens Implantation from [facility] EXPLORATORY LAPAROTOMY stab incision abdomen EYE SURGERY N/A Eye Surgery from [facility] FOOT SURGERY N/A Surgery Foot Amputation Metatarsal And Toe from [facility] OTHER SURGICAL HISTORY Right Tympanic Membrane Repair - Right Ear from [facility] OTHER SURGICAL HISTORY Right Surgery Right Foot Amputation MTP from [facility] [3] Family History Problem Relation Name Age of Onset Diabetes Mother Emphysema Mother Diabetes Sister Diabetes Other Conversions - Other Other Diagnosis unknown Anesthesia problems Neg Hx Malig Hyperthermia Neg Hx [4] Tobacco Use Smoking status: Never Smokeless tobacco: Never Vaping Use Vaping status: Never Used Substance Use Topics Alcohol use: Not Currently Drug use: Never Comment: Drug use: No drug use [5] No Known Allergies Lesvia Adrian MD 09/30/24 193 * ED Triage Notes - Sharlene Xie RN - 09/30/2024 3:24 PM EDT Pt arrives via [employer] from [place] [facility]. Per EMS home said pt would not take his meds today so they called an ambulance, pt has no complaints and the [place] [facility] said he was not acting out of his normal. Pt is hard of hearing and does not answer questions in triage. documented in this encounter Plan of Treatment Not on file documented as of this encounter Procedures Procedure Name Priority Date/Time Associated Diagnosis Comments HEMODIALYSIS INPATIENT Routine 10/21/2024 11:17 AM EDT ESRD (end stage renal disease) on dialysis ([facility]) POCT GLUCOSE METER UNSOLICITED RESULTS Routine 10/21/2024 9:15 AM EDT POCT GLUCOSE METER UNSOLICITED RESULTS Routine 10/21/2024 8:27 AM EDT POCT GLUCOSE METER UNSOLICITED RESULTS Routine 10/20/2024 8:31 PM EDT POCT GLUCOSE METER UNSOLICITED RESULTS Routine 10/19/2024 6:13 PM EDT POCT GLUCOSE METER UNSOLICITED RESULTS Routine 10/19/2024 11:56 AM EDT POCT GLUCOSE METER UNSOLICITED RESULTS Routine 10/18/2024 6:01 PM EDT POCT GLUCOSE METER UNSOLICITED RESULTS Routine 10/18/2024 1:09 PM EDT HEMODIALYSIS INPATIENT Routine 10/18/2024 9:21 AM EDT ESRD (end stage renal disease) on dialysis ([facility]) POCT GLUCOSE METER UNSOLICITED RESULTS Routine 10/17/2024 8:28 PM EDT HEPATITIS B CORE TOTAL AB (IGG AND IGM) Routine 10/17/2024 2:31 PM EDT XR CHEST 1 VIEW Routine 10/17/2024 2:11 PM EDT POCT GLUCOSE METER UNSOLICITED RESULTS Routine 10/17/2024 8:29 AM EDT POCT GLUCOSE METER UNSOLICITED RESULTS Routine 10/16/2024 8:34 PM EDT POCT GLUCOSE METER UNSOLICITED RESULTS Routine 10/16/2024 4:46 PM EDT POCT GLUCOSE METER UNSOLICITED RESULTS Routine 10/16/2024 12:55 PM EDT HEMODIALYSIS INPATIENT Routine 10/16/2024 12:16 PM EDT ESRD (end stage renal disease) on dialysis ([facility]) HEMODIALYSIS INPATIENT Routine 10/16/2024 8:41 AM EDT ESRD (end stage renal disease) on dialysis ([facility]) POCT GLUCOSE METER UNSOLICITED RESULTS Routine 10/16/2024 8:19 AM EDT POCT GLUCOSE METER UNSOLICITED RESULTS Routine 10/16/2024 8:09 AM EDT XR ABDOMEN 1 VIEW STAT 10/15/2024 9:4 0 PM EDT POCT GLUCOSE METER UNSOLICITED RESULTS Routine 10/15/2024 8:04 PM EDT POCT GLUCOSE METER UNSOLICITED RESULTS Routine 10/15/2024 4:41 PM EDT POCT GLUCOSE METER UNSOLICITED RESULTS Routine 10/15/2024 12:06 PM EDT POCT GLUCOSE METER UNSOLICITED RESULTS Routine 10/15/2024 8:04 AM EDT POCT GLUCOSE METER UNSOLICITED RESULTS Routine 10/14/2024 8:01 PM EDT POCT GLUCOSE METER UNSOLICITED RESULTS Routine 10/14/2024 4:34 PM EDT POCT GLUCOSE METER UNSOLICITED RESULTS Routine 10/14/2024 12:00 PM EDT POCT GLUCOSE METER UNSOLICITED RESULTS Routine 10/14/2024 8:48 AM EDT POCT GLUCOSE METER UNSOLICITED RESULTS Routine 10/14/2024 8:32 AM EDT POCT GLUCOSE METER UNSOLICITED RESULTS Routine 10/14/2024 3:19 AM EDT POCT GLUCOSE METER UNSOLICITED RESULTS Routine 10/13/2024 7:12 PM EDT POCT GLUCOSE METER UNSOLICITED RESULTS Routine 10/13/2024 5:49 PM EDT POCT GLUCOSE METER UNSOLICITED RESULTS Routine 10/13/2024 4:44 PM EDT POCT GLUCOSE METER UNSOLICITED RESULTS Routine 10/13/2024 11:59 AM EDT POCT GLUCOSE METER UNSOLICITED RESULTS Routine 10/13/2024 10:43 AM EDT POCT GLUCOSE METER UNSOLICITED RESULTS Routine 10/13/2024 9:20 AM EDT POCT GLUCOSE METER UNSOLICITED RESULTS Routine 10/13/2024 8:44 AM EDT POCT GLUCOSE METER UNSOLICITED RESULTS Routine 10/12/2024 8:07 PM EDT POCT GLUCOSE METER UNSOLICITED RESULTS Routine 10/12/2024 5:32 PM EDT POCT GLUCOSE METER UNSOLICITED RESULTS Routine 10/12/2024 5:00 PM EDT POCT GLUCOSE METER UNSOLICITED RESULTS Routine 10/12/2024 12:02 PM EDT POCT GLUCOSE METER UNSOLICITED RESULTS Routine 10/12/2024 8:38 AM EDT POCT GLUCOSE METER UNSOLICITED RESULTS Routine 10/12/2024 8:00 AM EDT POCT GLUCOSE METER UNSOLICITED RESULTS Routine 10/11/2024 7:34 PM EDT POCT GLUCOSE METER UNSOLICITED RESULTS Routine 10/11/2024 4:34 PM EDT POCT GLUCOSE METER UNSOLICITED RESULTS Routine 10/11/2024 2:18 PM EDT HEMODIALYSIS INPATIENT Routine 10/11/2024 9:20 AM EDT ESRD (end stage renal disease) on dialysis ([facility]) POCT GLUCOSE METER UNSOLICITED RESULTS Routine 10/11/2024 8:37 AM EDT POCT GLUCOSE METER UNSOLICITED RESULTS Routine 10/10/2024 7:34 PM EDT POCT GLUCOSE METER UNSOLICITED RESULTS Routine 10/10/2024 4:26 PM EDT POCT GLUCOSE METER UNSOLICITED RESULTS Routine 10/10/2024 12:07 PM EDT POCT GLUCOSE METER UNSOLICITED RESULTS Routine 10/10/2024 9:40 AM EDT POCT GLUCOSE METER UNSOLICITED RESULTS Routine 10/10/2024 9:00 AM EDT POCT GLUCOSE METER UNSOLICITED RESULTS Routine 10/09/2024 8:22 PM EDT POCT GLUCOSE METER UNSOLICITED RESULTS Routine 10/09/2024 4:43 PM EDT HEMOGLOBIN AND HEMATOCRIT, BLOOD Routine 10/09/2024 3:45 PM EDT HEMODIALYSIS INPATIENT Routine 10/09/2024 8:44 AM EDT ESRD (end stage renal disease) on dialysis ([facility]) POCT GLUCOSE METER UNSOLICITED RESULTS Routine 10/09/2024 8:01 AM EDT POCT GLUCOSE METER UNSOLICITED RESULTS Routine 10/08/2024 7:37 PM EDT POCT GLUCOSE METER UNSOLICITED RESULTS Routine 10/08/2024 4:42 PM EDT POCT GLUCOSE METER UNSOLICITED RESULTS Routine 10/08/2024 12:11 PM EDT POCT GLUCOSE METER UNSOLICITED RESULTS Routine 10/08/2024 8:21 AM EDT POCT GLUCOSE METER UNSOLICITED RESULTS Routine 10/07/2024 9:10 PM EDT POCT GLUCOSE METER UNSOLICITED RESULTS Routine 10/07/2024 4:28 PM EDT POCT GLUCOSE METER UNSOLICITED RESULTS Routine 10/07/2024 1:04 PM EDT HEMODIALYSIS INPATIENT Routine 10/07/2024 9:19 AM EDT ESRD (end stage renal disease) on dialysis ([facility]) POCT GLUCOSE METER UNSOLICITED RESULTS Routine 10/07/2024 8:24 AM EDT POCT GLUCOSE METER UNSOLICITED RESULTS Routine 10/07/2024 7:37 AM EDT MAGNESIUM, PLASMA Pending Discharge 10/07/2024 2:48 AM EDT RENAL FUNCTION PANEL, PLASMA Pending Discharge 10/07/2024 2:48 AM EDT POCT GLUCOSE METER UNSOLICITED RESULTS Routine 10/06/2024 7:42 PM EDT POCT GLUCOSE METER UNSOLICITED RESULTS Routine 10/06/2024 5:00 PM EDT POCT GLUCOSE METER UNSOLICITED RESULTS Routine 10/06/2024 12:03 PM EDT POCT GLUCOSE METER UNSOLICITED RESULTS Routine 10/06/2024 11:10 AM EDT MAGNESIUM, PLASMA Pending Discharge 10/06/2024 3:05 AM EDT RENAL FUNCTION PANEL, PLASMA Pending Discharge 10/06/2024 3:05 AM EDT POCT GLUCOSE METER UNSOLICITED RESULTS Routine 10/05/2024 8:10 PM EDT POCT GLUCOSE METER UNSOLICITED RESULTS Routine 10/05/2024 4:21 PM EDT POCT GLUCOSE METER UNSOLICITED RESULTS Routine 10/05/2024 11:52 AM EDT POCT GLUCOSE METER UNSOLICITED RESULTS Routine 10/05/2024 9:09 AM EDT POCT GLUCOSE METER UNSOLICITED RESULTS Routine 10/05/2024 7:47 AM EDT POCT GLUCOSE METER UNSOLICITED RESULTS Routine 10/04/2024 7:49 PM EDT POCT GLUCOSE METER UNSOLICITED RESULTS Routine 10/04/2024 4:56 PM EDT POCT GLUCOSE METER UNSOLICITED RESULTS Routine 10/04/2024 1:06 PM EDT POCT GLUCOSE METER UNSOLICITED RESULTS Routine 10/04/2024 12:33 PM EDT HEMODIALYSIS INPATIENT Routine 10/04/2024 9:50 AM EDT ESRD (end stage renal disease) on dialysis ([facility]) POCT GLUCOSE METER UNSOLICITED RESULTS Routine 10/04/2024 7:36 AM EDT POCT GLUCOSE METER UNSOLICITED RESULTS Routine 10/04/2024 7:31 AM EDT POCT GLUCOSE METER UNSOLICITED RESULTS Routine 10/04/2024 6:42 AM EDT MAGNESIUM, PLASMA Routine 10/04/2024 4:2 0 AM EDT RENAL FUNCTION PANEL, PLASMA Routine 10/04/2024 4:20 AM EDT POCT GLUCOSE METER UNSOLICITED RESULTS Routine 10/03/2024 7:54 PM EDT POCT GLUCOSE METER UNSOLICITED RESULTS Routine 10/03/2024 4:07 PM EDT POCT GLUCOSE METER UNSOLICITED RESULTS Routine 10/03/2024 12:29 PM EDT POCT GLUCOSE METER UNSOLICITED RESULTS Routine 10/03/2024 8:12 AM EDT MAGNESIUM, PLASMA Routine 10/03/2024 3:2 1 AM EDT RENAL FUNCTION PANEL, PLASMA Routine 10/03/2024 3:21 AM EDT POCT GLUCOSE METER UNSOLICITED RESULTS Routine 10/02/2024 9:06 PM EDT POCT GLUCOSE METER UNSOLICITED RESULTS Routine 10/02/2024 4:43 PM EDT POCT GLUCOSE METER UNSOLICITED RESULTS Routine 10/02/2024 11:55 AM EDT PTH INTACT TOTAL Routine 10/02/2024 9:58 AM EDT HEPATITIS C VIRUS QUANTITATIVE PCR FROM REFLEX Routine 10/02/2024 7:51 AM EDT ESRD (end stage renal disease) on dialysis (CMS/HCC) HEPATITIS B SURFACE ANTIBODY, QUANTITATIVE Routine 10/02/2024 7:51 AM EDT ESRD (end stage renal disease) on dialysis (CMS/HCC) ACUTE HEPATITIS PANEL Routine 10/02/2024 7:51 AM EDT ESRD (end stage renal disease) on dialysis (CMS/HCC) HEMODIALYSIS INPATIENT Routine 10/02/2024 7:50 AM EDT ESRD (end stage renal disease) on dialysis (CMS/HCC) VITAMIN D 25 HYDROXY Routine 10/02/2024 5:36 AM EDT CBC WITH AUTO DIFFERENTIAL Routine 10/02/2024 5:36 AM EDT MAGNESIUM, PLASMA Routine 10/02/2024 5:3 6 AM EDT FERRITIN, SERUM Routine 10/02/2024 5:36 AM EDT RENAL FUNCTION PANEL, PLASMA Routine 10/02/2024 5:36 AM EDT MULTI DRUG RESISTANCE TEST STAT 10/01/2024 9:04 PM EDT POCT GLUCOSE METER UNSOLICITED RESULTS Routine 10/01/2024 8:38 PM EDT POCT GLUCOSE METER UNSOLICITED RESULTS Routine 10/01/2024 4:02 PM EDT POCT GLUCOSE METER UNSOLICITED RESULTS Routine 10/01/2024 12:21 PM EDT POCT GLUCOSE METER UNSOLICITED RESULTS Routine 10/01/2024 8:29 AM EDT WOUND OSTOMY EVAL AND TREAT Routine 10/01/2024 2:23 AM EDT POCT GLUCOSE METER UNSOLICITED RESULTS Routine 09/30/2024 8:49 PM EDT TSH REFLEX FT4 Add-On 09/30/2024 4:50 PM EDT IRON & TOTAL IRON BINDING CAPACITY, PLASMA (INCLUDES TRANSFERRIN) Add-On 09/30/2024 4:50 PM EDT CBC WITH AUTO DIFFERENTIAL STAT 09/30/2024 4:50 PM EDT C-REACTIVE PROTEIN, PLASMA STAT 09/30/2024 4:50 PM EDT PHOSPHORUS, PLASMA STAT 09/30/2024 4: 50 PM EDT MAGNESIUM, PLASMA STAT 09/30/2024 4:5 0 PM EDT HEMOGLOBIN A1C Add-On 09/30/2024 4:50 PM EDT COMPREHENSIVE METABOLIC PANEL, PLASMA STAT 09/30/2024 4:50 PM EDT ECG ADULT STAT 09/30/2024 4:09 PM EDT documented in this encounter Results * Hemodialysis inpatient 3 hr (180 min); [facility] 400; 35.5; 3.5; 2.5; 136; 32; 1-2; Remove UF as tolerated; 300-400; 2X Blood Flow Rate; Adult; AV Fistula; 15 ga Once (10/21/2024 11:17 AM EDT) Narrative Jerrell Jurado MD - 10/21/2024 11:17 AM EDT Jerrell Jurado MD 10/21/2024 11:17 AM Dialysis Note I have personally seen the patient on dialysis. Tolerating treatment. Visit Vitals BP 120/50 Pulse 62 Temp 36.6 C (97.8 F) (Oral) Resp 16 Ht 1.778 m (5' 10 ) Wt 76.3 kg (168 lb 3.4 oz) SpO2 94% BMI 24.14 kg/m Smoking Status Never BSA 1.94 m Lab Results Component Value Date CREATININE 6.91 (H) 10/07/2024 BUN 41 (H) 10/07/2024 NA 125 (L) 10/07/2024 K 4.1 10/07/2024 CL 92 (L) 10/07/2024 CO2 23 10/07/2024 Lab Results Component Value Date WBC 7.44 10/02/2024 HGB 8.2 (L) 10/09/2024 HCT 23.7 (L) 10/09/2024 MCV 90 10/02/2024 PLT 119 (L) 10/02/2024 BFR: 300-400 ml/min DFR: 600-800 ml/min UF: 2L Assessment: - Fluid Overload - Metabolic Acidosis - Anemia in Chronic Kidney Disease - Hyperphosphatemia/ CKD-MBD - ESRD us Donny Tovar MD DIALYSIS ORDERABLES Final Res ult * (ABNORMAL) POCT glucose meter (10/21/2024 9:15 AM EDT) POCT Glucose 116(H) 74 - 99 mg/dL 10/21/2024 9:17 AM EDT [facility] Comment:Accuracy of a glucos e result obtained from a capillary whole blood specimen relies upon adequate, non-compromised capillary blood flow. If the capillary glucose result is not consistent with the patient's clinical signs and symptoms, glucose testing should be repeated with either an arterial or venous sample on the glucometer or sent to the main labortory for testing. Comment 10/21/2024 9:17 AM EDT [facility] Cuff Setter Overlock ID Jane Dill 10/21/2024 9:17 AM EDT [facility] Device ID [id number] 10/21/2024 9:17 AM EDT [facility] Specimen Type POC Capillary 10/21/2024 9:17 AM EDT [facility] Blood Capillary blood specimen / Unknown 10/21/2024 9:15 AM EDT 10/21/2024 9:17 AM EDT us Jeannie Valle MD LAB POINT OF CARE TE ST DOCKED DEVICE UNSOLICITED RESULTS Final Result [facility] [address] [place] [address] * POCT glucose meter (10/21/2024 8:27 AM EDT) [facility] POCT Glucose 95 74 - 99 mg/dL 10/21/2024 8:29 AM EDT [facility] Comment:Accuracy of a glucos e result obtained from a capillary whole blood specimen relies upon adequate, non-compromised capillary blood flow. If the capillary glucose result is not consistent with the patient's clinical signs and symptoms, glucose testing should be repeated with either an arterial or venous sample on the glucometer or sent to the main labortory for testing. Comment 10/21/2024 8:29 AM EDT [facility] Cuff Setter Overlock ID Jane Dill 10/21/2024 8:29 AM EDT [facility] Device ID [id number] 10/21/2024 8:29 AM EDT [facility] Specimen Type POC Capillary 10/21/2024 8:29 AM EDT [facility] Blood Capillary blood specimen / Unknown 10/21/2024 8:27 AM EDT 10/21/2024 8:29 AM EDT Jeannie Valle MD LAB POINT OF CARE TE ST DOCKED DEVICE UNSOLICITED RESULTS Final Result [facility] [address] [place] [address] * (ABNORMAL) POCT glucose meter (10/20/2024 8:31 PM EDT) [facility] POCT Glucose 131(H) 74 - 99 mg/dL 10/20/2024 8:34 PM EDT [facility] Comment:Accuracy of a glucos e result obtained from a capillary whole blood specimen relies upon adequate, non-compromised capillary blood flow. If the capillary glucose result is not consistent with the patient's clinical signs and symptoms, glucose testing should be repeated with either an arterial or venous sample on the glucometer or sent to the main labortory for testing. Comment 10/20/2024 8:34 PM EDT [facility] Cuff Setter Overlock ID Grazyna Bhakta 025 8:34 PM EDT [facility] Device ID [id number] 10/20/2024 8:34 PM EDT [facility] Specimen Type POC Capillary 10/20/2024 8:34 PM EDT [facility] Blood Capillary blood specimen / Unknown 10/20/2024 8:31 PM EDT 10/20/2024 8:34 PM EDT Jeannie Valle MD LAB POINT OF CARE TE ST DOCKED DEVICE UNSOLICITED RESULTS Final Result Performing Organization Address [facility] de Phone Number [facility] [address] [place] [address] * (ABNORMAL) POCT glucose meter (10/19/2024 6:13 PM EDT) [facility] POCT Glucose 125(H) 74 - 99 mg/dL 10/19/2024 6:16 PM EDT [facility] Comment:Accuracy of a glucos e result obtained from a capillary whole blood specimen relies upon adequate, non-compromised capillary blood flow. If the capillary glucose result is not consistent with the patient's clinical signs and symptoms, glucose testing should be repeated with either an arterial or venous sample on the glucometer or sent to the main labortory for testing. Comment 10/19/2024 6:16 PM EDT [facility] Cuff Setter Overlock ID Denton Mccoy 025 6:16 PM EDT [facility]ALTHCARE LAB Device ID [id number] 10/19/2024 6:16 PM EDT [facility] Specimen Type POC Capillary 10/19/2024 6:16 PM EDT [facility] Blood Capillary blood specimen / Unknown 10/19/2024 6:13 PM EDT 10/19/2024 6:16 PM EDT Jeannie Valle MD LAB POINT OF CARE TE ST DOCKED DEVICE UNSOLICITED RESULTS Final Result Performing Organization Address City/[facility] Co de Phone Number [facility] [address] [place] [address] * (ABNORMAL) POCT glucose meter (10/19/2024 11:56 AM EDT) [facility] POCT Glucose 110(H) 74 - 99 mg/dL 10/19/2024 11:58 AM EDT [facility] Comment:Accuracy of a glucos e result obtained from a capillary whole blood specimen relies upon adequate, non-compromised capillary blood flow. If the capillary glucose result is not consistent with the patient's clinical signs and symptoms, glucose testing should be repeated with either an arterial or venous sample on the glucometer or sent to the main labortory for testing. Comment 10/19/2024 11:58 AM EDT [facility] Cuff Setter Overlock ID Denton Mccoy 025 11:58 AM EDT [facility] Device ID [id number] 10/19/2024 11:58 AM EDT [facility] Specimen Type POC Capillary 10/19/2024 11:58 AM EDT [facility] Blood Capillary blood specimen / Unknown 10/19/2024 11:56 AM EDT 10/19/2024 11:58 AM EDT Jeannie Valle MD LAB POINT OF CARE TE ST DOCKED DEVICE UNSOLICITED RESULTS Final Result [facility] [address] [place] [address] * (ABNORMAL) POCT glucose meter (10/18/2024 6:01 PM EDT) [facility] POCT Glucose 105(H) 74 - 99 mg/dL 10/18/2024 6:03 PM EDT [facility] Comment:Accuracy of a glucos e result obtained from a capillary whole blood specimen relies upon adequate, non-compromised capillary blood flow. If the capillary glucose result is not consistent with the patient's clinical signs and symptoms, glucose testing should be repeated with either an arterial or venous sample on the glucometer or sent to the main labortory for testing. Comment 10/18/2024 6:03 PM EDT [facility] Cuff Setter Overlock ID David Noyola 10/18/2024 6:03 PM EDT [facility] Device ID [id number] 10/18/2024 6:03 PM EDT [facility] Specimen Type POC Capillary 10/18/2024 6:03 PM EDT [facility] Blood Capillary blood specimen / Unknown 10/18/2024 6:01 PM EDT 10/18/2024 6:03 PM EDT Jeannie Valle MD LAB POINT OF CARE TE ST DOCKED DEVICE UNSOLICITED RESULTS Final Result Performing Organization Address [facility] Co de Phone Number [facility] [address] [place] [address] * POCT glucose meter (10/18/2024 1:09 PM EDT) [facility] POCT Glucose 85 74 - 99 mg/dL 10/18/2024 1:11 PM EDT [facility] Comment:Accuracy of a glucos e result obtained from a capillary whole blood specimen relies upon adequate, non-compromised capillary blood flow. If the capillary glucose result is not consistent with the patient's clinical signs and symptoms, glucose testing should be repeated with either an arterial or venous sample on the glucometer or sent to the main labortory for testing. Comment 10/18/2024 1:11 PM EDT [facility] Cuff Setter Overlock ID David Noyola 10/18/2024 1:11 PM EDT [facility] Device ID [id number] 10/18/2024 1:11 PM EDT [facility] Specimen Type POC Capillary 10/18/2024 1:11 PM EDT [facility] Blood Capillary blood specimen / Unknown 10/18/2024 1:09 PM EDT 10/18/2024 1:11 PM EDT Jeannie Valle MD LAB POINT OF CARE TE ST DOCKED DEVICE UNSOLICITED RESULTS Final Result Performing Organization Address [facility] Co de Phone Number [facility] [address] [place] [address] * (ABNORMAL) POCT glucose meter (10/17/2024 8:28 PM EDT) [facility] POCT Glucose 101(H) 74 - 99 mg/dL 10/17/2024 8:29 PM EDT [facility] Comment:Accuracy of a glucos e result obtained from a capillary whole blood specimen relies upon adequate, non-compromised capillary blood flow. If the capillary glucose result is not consistent with the patient's clinical signs and symptoms, glucose testing should be repeated with either an arterial or venous sample on the glucometer or sent to the main labortory for testing. Comment 10/17/2024 8:29 PM EDT [facility] Cuff Setter Overlock ID Behzad Ping 8:29 PM EDT [facility]ARE [facility] Device ID [id number] 10/17/2024 8:29 PM EDT [facility] Specimen Type POC Capillary 10/17/2024 8:29 PM EDT [facility] Blood Capillary blood specimen / Unknown 10/17/2024 8:28 PM EDT 10/17/2024 8:29 PM EDT Jeannie Valle MD LAB POINT OF CARE TE ST DOCKED DEVICE UNSOLICITED RESULTS Final Result Performing Organization Address City/[facility]/ZIP Co de Phone Number [facility] [address] [place] [address] * Hepatitis B Core Total Antibody IgG,IgM (10/17/2024 2:31 PM EDT) Hepatitis B Core Total Antibody IgG,IgM Negative Negative 10/17/2024 5:01 PM EDT [facility] Blood Venous blood specimen / Unknown Venipuncture / Unknown 10/17/2024 2:31 PM EDT 10/17/2024 2:35 PM EDT Jeannie Valle MD LAB BLOOD ORDERABLES Final Res ult Performing Organization Address City/[facility] Co de Phone Number [facility] [address] [place] [address] * XR Chest 1 View (10/17/2024 2:11 PM EDT) Anatomical Region Laterality Modality Chest Digital Radiogra phy Impressions 10/17/2024 2:49 PM EDT No visualized airspace disease. CRITICAL RESULT: No. COMMUNICATION: Per this written report. Preliminary report signed by Seng Martinez MD on 10/17/2024 2:39 PM By electronically signing this report, I, the attending physician, attest that I have personally reviewed the images/data for the above examination(s) and agree with the final edited report. Drafted by Seng Martinez MD on 10/17/2024 2:37 PM Final report signed by Fortunato Willett MD on 10/17/2024 2:49 PM Narrative 10/17/2024 2:49 PM EDT CLINICAL INDICATION: Role-out TB for outpatient dialysis chair TECHNIQUE: XR CHEST 1 VIEW COMPARISON: August 25, 2023 FINDINGS: Stable cardiac silhouette and mediastinal contours. Stable bilateral pleural effusions versus thickening. Stable bilateral basilar atelectasis. No consolidations or pneumothorax. Procedure Note Fortunato Willett MD - 10/17/2024 CLINICAL INDICATION: Role-out TB for outpatient dialysis chair TECHNIQUE: XR CHEST 1 VIEW COMPARISON: August 25, 2023 FINDINGS: Stable cardiac silhouette and mediastinal contours. Stable bilateralpleural effusions versus thickening. Stable bilateral basilar atelectasis.No consolidations or pneumothorax. IMPRESSION: No visualized airspace disease. CRITICAL RESULT: No. COMMUNICATION: Per this written report. Preliminary report signed by Seng Martinez MD on 10/17/2024 2:39 PM By electronically signing this report, I, the attending physician, attestthat I have personally reviewed the images/data for the aboveexamination(s) and agree with the final edited report. Drafted by Seng Martinez MD on 10/17/2024 2:37 PM Final report signed by Fortunato Willett MD on 10/17/2024 2:49 PM Jeannie Valle MD IMG XR PROCEDURES Final Result * POCT glucose meter (10/17/2024 8:29 AM EDT) POCT Glucose 97 74 - 99 mg/dL 10/17/2024 11:15 AM EDT [facility] Comment:Accuracy of a glucos e result obtained from a capillary whole blood specimen relies upon adequate, non-compromised capillary blood flow. If the capillary glucose result is not consistent with the patient's clinical signs and symptoms, glucose testing should be repeated with either an arterial or venous sample on the glucometer or sent to the main labortory for testing. Comment 10/17/2024 11:15 AM EDT [facility] Cuff Setter Overlock ID Toi Azevedo 11:15 AM EDT [facility] Device ID [id number] 10/17/2024 11:15 AM EDT [facility] Specimen Type POC Capillary 10/17/2024 11:15 AM EDT [facility] Blood Capillary blood specimen / Unknown 10/17/2024 8:29 AM EDT 10/17/2024 11:15 AM EDT Jeannie Valle MD LAB POINT OF CARE TE ST DOCKED DEVICE UNSOLICITED RESULTS Final Result Performing Organization Address City/[facility] Co de Phone Number [facility] [address] [place] [address] * (ABNORMAL) POCT glucose meter (10/16/2024 8:34 PM EDT) POCT Glucose 146(H) 74 - 99 mg/dL 10/16/2024 8:36 PM EDT [facility] Comment:Accuracy of a glucos e result obtained from a capillary whole blood specimen relies upon adequate, non-compromised capillary blood flow. If the capillary glucose result is not consistent with the patient's clinical signs and symptoms, glucose testing should be repeated with either an arterial or venous sample on the glucometer or sent to the main labortory for testing. Comment 10/16/2024 8:36 PM EDT [facility] Cuff Setter Overlock ID Ping Wen 8:36 PM EDT [facility] Device ID [id number] 10/16/2024 8:36 PM EDT [facility] Specimen Type POC Capillary 10/16/2024 8:36 PM EDT [facility] Blood Capillary blood specimen / Unknown 10/16/2024 8:34 PM EDT 10/16/2024 8:36 PM EDT Jeannie Valle MD LAB POINT OF CARE TE ST DOCKED DEVICE UNSOLICITED RESULTS Final Result Performing Organization Address City/[facility]/ZIP Co de Phone Number [facility] [address] [place] [address] * (ABNORMAL) POCT glucose meter (10/16/2024 4:46 PM EDT) POCT Glucose 168(H) 74 - 99 mg/dL 10/16/2024 4:47 PM EDT [facility] Comment:Accuracy of a glucos e result obtained from a capillary whole blood specimen relies upon adequate, non-compromised capillary blood flow. If the capillary glucose result is not consistent with the patient's clinical signs and symptoms, glucose testing should be repeated with either an arterial or venous sample on the glucometer or sent to the main labortory for testing. Comment 10/16/2024 4:47 PM EDT [facility] Cuff Setter Overlock ID Lio Gomez 10/16/2024 4:47 PM EDT [facility] Device ID [id number] 10/16/2024 4:47 PM EDT [facility] Specimen Type POC Capillary 10/16/2024 4:47 PM EDT [facility] Blood Capillary blood specimen / Unknown 10/16/2024 4:46 PM EDT 10/16/2024 4:47 PM EDT us Jeannie Valle MD LAB POINT OF CARE TE ST DOCKED DEVICE UNSOLICITED RESULTS Final Result Performing Organization Address [facility] Co de Phone Number [facility] [address] [place] [address] * POCT glucose meter (10/16/2024 12:55 PM EDT) [facility] POCT Glucose 94 74 - 99 mg/dL 10/16/2024 12:57 PM EDT [facility] Comment:Accuracy of a glucos e result obtained from a capillary whole blood specimen relies upon adequate, non-compromised capillary blood flow. If the capillary glucose result is not consistent with the patient's clinical signs and symptoms, glucose testing should be repeated with either an arterial or venous sample on the glucometer or sent to the main labortory for testing. Comment 10/16/2024 12:57 PM EDT [facility] Cuff Setter Overlock ID Lio Gomez 10/16/2024 12:57 PM EDT [facility] Device ID [id number] 10/16/2024 12:57 PM EDT [facility] Specimen Type POC Capillary 10/16/2024 12:57 PM EDT [facility] Blood Capillary blood specimen / Unknown 10/16/2024 12:55 PM EDT 10/16/2024 12:57 PM EDT us Jeannie Valle MD LAB POINT OF CARE TE ST DOCKED DEVICE UNSOLICITED RESULTS Final Result Performing Organization Address City/[facility] Co de Phone Number [facility] [address] [place] [address] * POCT glucose meter (10/16/2024 8:19 AM EDT) [facility] POCT Glucose 94 74 - 99 mg/dL 10/16/2024 9:05 AM EDT [facility] Comment:Accuracy of a glucos e result obtained from a capillary whole blood specimen relies upon adequate, non-compromised capillary blood flow. If the capillary glucose result is not consistent with the patient's clinical signs and symptoms, glucose testing should be repeated with either an arterial or venous sample on the glucometer or sent to the main labortory for testing. Comment 10/16/2024 9:05 AM EDT [facility] Cuff Setter Overlock ID Lio Gomez 10/16/2024 9:05 AM EDT [facility] Device ID [id number] 10/16/2024 9:05 AM EDT [facility] Specimen Type POC Capillary 10/16/2024 9:05 AM EDT [facility] Blood Capillary blood specimen / Unknown 10/16/2024 8:19 AM EDT 10/16/2024 9:05 AM EDT Jeannie Valle MD LAB POINT OF CARE TE ST DOCKED DEVICE UNSOLICITED RESULTS Final Result Performing Organization Address [facility] de Phone Number [facility] [address] [place] [address] * POCT glucose meter (10/16/2024 8:09 AM EDT) [facility] POCT Glucose 85 74 - 99 mg/dL 10/16/2024 8:10 AM EDT [facility] Comment:Accuracy of a glucos e result obtained from a capillary whole blood specimen relies upon adequate, non-compromised capillary blood flow. If the capillary glucose result is not consistent with the patient's clinical signs and symptoms, glucose testing should be repeated with either an arterial or venous sample on the glucometer or sent to the main labortory for testing. Comment 10/16/2024 8:10 AM EDT [facility] Cuff Setter Overlock ID Lio Gomez 10/16/2024 8:10 AM EDT [facility] Device ID [id number] 10/16/2024 8:10 AM EDT [facility] Specimen Type POC Capillary 10/16/2024 8:10 AM EDT [facility] Blood Capillary blood specimen / Unknown 10/16/2024 8:09 AM EDT 10/16/2024 8:10 AM EDT us Jeannie Valle MD LAB POINT OF CARE TE ST DOCKED DEVICE UNSOLICITED RESULTS Final Result [facility] [address] [place] [address] * XR Abdomen 1 View (10/15/2024 9:40 PM EDT) Anatomical Region Laterality Modality Body Digital Radiogra phy Impressions 10/15/2024 9:58 PM EDT Moderate distal colonic and rectal stool burden. Moderate gastric distention. CRITICAL RESULT: No. COMMUNICATION: Per this written report. Drafted by Ashley Strong MD on 10/15/2024 9:57 PM Final report signed by Ashley Strong MD on 10/15/2024 9:58 PM Narrative 10/15/2024 9:58 PM EDT CLINICAL INDICATION: Constipation TECHNIQUE: XR ABDOMEN 1 VIEW COMPARISON: July 03, 2022. FINDINGS: Moderate gastric distention. Gas within nondistended large and small bowel. Moderate distal colonic and rectal stool burden. Lower lungs are clear. Vascular calcification. Left femoral fixation hardware. Procedure Note Ashley Strong MD - 10/15/2024 CLINICAL INDICATION: Constipation TECHNIQUE: XR ABDOMEN 1 VIEW COMPARISON: July 03, 2022. FINDINGS: Moderate gastric distention. Gas within nondistended large and smallbowel. Moderate distal colonic and rectal stool burden. Lower lungs areclear. Vascular calcification. Left femoral fixation hardware. IMPRESSION: Moderate distal colonic and rectal stool burden. Moderate gastric distention. CRITICAL RESULT: No. COMMUNICATION: Per this written report. Drafted by Ashley Strong MD on 10/15/2024 9:57 PM Final report signed by Ashley Strong MD on 10/15/2024 9:58 PM us Lala Valdes MEDICAL ADMINISTRATIVE TECHNICIAN IMG XR PROCEDURES Final Resul t * (ABNORMAL) POCT glucose meter (10/15/2024 8:04 PM EDT) [facility] POCT Glucose 160(H) 74 - 99 mg/dL 10/15/2024 8:06 PM EDT [facility] Comment:Accuracy of a glucos e result obtained from a capillary whole blood specimen relies upon adequate, non-compromised capillary blood flow. If the capillary glucose result is not consistent with the patient's clinical signs and symptoms, glucose testing should be repeated with either an arterial or venous sample on the glucometer or sent to the main labortory for testing. Comment 10/15/2024 8:06 PM EDT [facility] Cuff Setter Overlock ID Matty Jeffries 10/15/2024 8:06 PM EDT [facility] Device ID [id number] 10/15/2024 8:06 PM EDT [facility] Specimen Type POC Capillary 10/15/2024 8:06 PM EDT [facility] Blood Capillary blood specimen / Unknown 10/15/2024 8:04 PM EDT 10/15/2024 8:06 PM EDT Jeannie Valle MD LAB POINT OF CARE TE ST DOCKED DEVICE UNSOLICITED RESULTS Final Result Performing Organization Address City/State/[facility] Co de Phone Number [facility] [address] [place] [address] * (ABNORMAL) POCT glucose meter (10/15/2024 4:41 PM EDT) [facility] POCT Glucose 114(H) 74 - 99 mg/dL 10/15/2024 4:43 PM EDT [facility] Comment:Accuracy of a glucos e result obtained from a capillary whole blood specimen relies upon adequate, non-compromised capillary blood flow. If the capillary glucose result is not consistent with the patient's clinical signs and symptoms, glucose testing should be repeated with either an arterial or venous sample on the glucometer or sent to the main labortory for testing. Comment 10/15/2024 4:43 PM EDT [facility] Cuff Setter Overlock ID Lio Gomez 10/15/2024 4:43 PM EDT [facility] Device ID [id number] 10/15/2024 4:43 PM EDT [facility] Specimen Type POC Capillary 10/15/2024 4:43 PM EDT [facility] Blood Capillary blood specimen / Unknown 10/15/2024 4:41 PM EDT 10/15/2024 4:43 PM EDT us Jeannie Valle MD LAB POINT OF CARE TE ST DOCKED DEVICE UNSOLICITED RESULTS Final Result Performing Organization Address City/[facility]/ZIP Co de Phone Number [facility] [address] [place] [address] * (ABNORMAL) POCT glucose meter (10/15/2024 12:06 PM EDT) POCT Glucose 115(H) 74 - 99 mg/dL 10/15/2024 12:07 PM EDT [facility] Comment:Accuracy of a glucos e result obtained from a capillary whole blood specimen relies upon adequate, non-compromised capillary blood flow. If the capillary glucose result is not consistent with the patient's clinical signs and symptoms, glucose testing should be repeated with either an arterial or venous sample on the glucometer or sent to the main labortory for testing. Comment 10/15/2024 12:07 PM EDT [facility] Cuff Setter Overlock ID Lio Gomez 10/15/2024 12:07 PM EDT [facility] Device ID [id number] 10/15/2024 12:07 PM EDT [facility] Specimen Type POC Capillary 10/15/2024 12:07 PM EDT [facility] Blood Capillary blood specimen / Unknown 10/15/2024 12:06 PM EDT 10/15/2024 12:07 PM EDT us Jeannie Valle MD LAB POINT OF CARE TE ST DOCKED DEVICE UNSOLICITED RESULTS Final Result Performing Organization Address City/[facility]/ZIP Co de Phone Number [facility] [address] [place] [address] * (ABNORMAL) POCT glucose meter (10/15/2024 8:04 AM EDT) POCT Glucose 101(H) 74 - 99 mg/dL 10/15/2024 11:46 AM EDT [facility] Comment:Accuracy of a glucos e result obtained from a capillary whole blood specimen relies upon adequate, non-compromised capillary blood flow. If the capillary glucose result is not consistent with the patient's clinical signs and symptoms, glucose testing should be repeated with either an arterial or venous sample on the glucometer or sent to the main labortory for testing. Comment 10/15/2024 11:46 AM EDT [facility] Cuff Setter Overlock ID Lio Gomez 10/15/2024 11:46 AM EDT [facility] Device ID [id number] 10/15/2024 11:46 AM EDT [facility] Specimen Type POC Capillary 10/15/2024 11:46 AM EDT [facility] Blood Capillary blood specimen / Unknown 10/15/2024 8:04 AM EDT 10/15/2024 11:46 AM EDT us Jeannie Valle MD LAB POINT OF CARE TE ST DOCKED DEVICE UNSOLICITED RESULTS Final Result Performing Organization Address City/State/[facility] Co de Phone Number [facility]ARE LAB [address] [place] [address] * (ABNORMAL) POCT glucose meter (10/14/2024 8:01 PM EDT) POCT Glucose 186(H) 74 - 99 mg/dL 10/14/2024 8:02 PM EDT [facility] Comment:Accuracy of a glucos e result obtained from a capillary whole blood specimen relies upon adequate, non-compromised capillary blood flow. If the capillary glucose result is not consistent with the patient's clinical signs and symptoms, glucose testing should be repeated with either an arterial or venous sample on the glucometer or sent to the main labortory for testing. Comment 10/14/2024 8:02 PM EDT [facility] Cuff Setter Overlock ID Matty Jeffries 10/14/2024 8:02 PM EDT [facility] Device ID [id number] 10/14/2024 8:02 PM EDT [facility] Specimen Type POC Capillary 10/14/2024 8:02 PM EDT [facility] Blood Capillary blood specimen / Unknown 10/14/2024 8:01 PM EDT 10/14/2024 8:02 PM EDT us Lamont Brumfield MD LAB POINT OF CARE TE ST DOCKED DEVICE UNSOLICITED RESULTS Final Result Performing Organization Address City/[facility]/ZIP Co de Phone Number [facility]ALTHCARE LAB [address] [place] [address] * POCT glucose meter (10/14/2024 4:34 PM EDT) Pathologist [facility] POCT Glucose 98 74 - 99 mg/dL 10/14/2024 4:36 PM EDT [facility] Comment:Accuracy of a glucos e result obtained from a capillary whole blood specimen relies upon adequate, non-compromised capillary blood flow. If the capillary glucose result is not consistent with the patient's clinical signs and symptoms, glucose testing should be repeated with either an arterial or venous sample on the glucometer or sent to the main labortory for testing. Comment 10/14/2024 4:36 PM EDT [facility] Cuff Setter Overlock ID Moisés Lopez 10/14/2024 4:36 PM EDT [facility] Device ID [id number] 10/14/2024 4:36 PM EDT [facility] Specimen Type POC Capillary 10/14/2024 4:36 PM EDT [facility] Blood Capillary blood specimen / Unknown 10/14/2024 4:34 PM EDT 10/14/2024 4:36 PM EDT us Lamont Brumfield MD LAB POINT OF CARE TE ST DOCKED DEVICE UNSOLICITED RESULTS Final Result Performing Organization Address City/[facility] Co de Phone Number [facility]ARE [facility] [address] [place] [address] * (ABNORMAL) POCT glucose meter (10/14/2024 12:00 PM EDT) Pathologist [facility] POCT Glucose 139(H) 74 - 99 mg/dL 10/14/2024 12:02 PM EDT [facility] Comment:Accuracy of a glucos e result obtained from a capillary whole blood specimen relies upon adequate, non-compromised capillary blood flow. If the capillary glucose result is not consistent with the patient's clinical signs and symptoms, glucose testing should be repeated with either an arterial or venous sample on the glucometer or sent to the main labortory for testing. Comment 10/14/2024 12:02 PM EDT [facility] Cuff Setter Overlock ID Moisés Lopez 10/14/2024 12:02 PM EDT [facility] Device ID [id number] 10/14/2024 12:02 PM EDT [facility] Specimen Type POC Capillary 10/14/2024 12:02 PM EDT [facility] Blood Capillary blood specimen / Unknown 10/14/2024 12:00 PM EDT 10/14/2024 12:02 PM EDT us Lamont Brumfield MD LAB POINT OF CARE TE ST DOCKED DEVICE UNSOLICITED RESULTS Final Result Performing Organization Address City/[facility] Co de Phone Number [facility]ARE [facility] [address] [place] [address] * (ABNORMAL) POCT glucose meter (10/14/2024 8:48 AM EDT) [facility] Signature POCT Glucose 111(H) 74 - 99 mg/dL 10/14/2024 8:50 AM EDT [facility] Comment:Accuracy of a glucos e result obtained from a capillary whole blood specimen relies upon adequate, non-compromised capillary blood flow. If the capillary glucose result is not consistent with the patient's clinical signs and symptoms, glucose testing should be repeated with either an arterial or venous sample on the glucometer or sent to the main labortory for testing. Comment 10/14/2024 8:50 AM EDT [facility] Cuff Setter Overlock ID Moisés Lopez 10/14/2024 8:50 AM EDT [facility] Device ID [id number] 10/14/2024 8:50 AM EDT [facility] Specimen Type POC Capillary 10/14/2024 8:50 AM EDT [facility] Blood Capillary blood specimen / Unknown 10/14/2024 8:48 AM EDT 10/14/2024 8:50 AM EDT us Lamont Brumfield MD LAB POINT OF CARE TE ST DOCKED DEVICE UNSOLICITED RESULTS Final Result Performing Organization Address City/[facility]/ZIP Co de Phone Number [facility] [address] [place] [address] * POCT glucose meter (10/14/2024 8:32 AM EDT) [facility] POCT Glucose 89 74 - 99 mg/dL 10/14/2024 8:34 AM EDT [facility] Comment:Accuracy of a glucos e result obtained from a capillary whole blood specimen relies upon adequate, non-compromised capillary blood flow. If the capillary glucose result is not consistent with the patient's clinical signs and symptoms, glucose testing should be repeated with either an arterial or venous sample on the glucometer or sent to the main labortory for testing. Comment 10/14/2024 8:34 AM EDT [facility] Cuff Setter Overlock ID Moisés Lopez 10/14/2024 8:34 AM EDT [facility] Device ID [id number] 10/14/2024 8:34 AM EDT [facility] Specimen Type POC Capillary 10/14/2024 8:34 AM EDT [facility] Blood Capillary blood specimen / Unknown 10/14/2024 8:32 AM EDT 10/14/2024 8:34 AM EDT Lamont Brufmield MD LAB POINT OF CARE TE ST DOCKED DEVICE UNSOLICITED RESULTS Final Result Performing Organization Address City/State/[facility] Co de Phone Number [facility]ARE [facility] [address] [place] [address] * POCT glucose meter (10/14/2024 3:19 AM EDT) [facility] POCT Glucose 94 74 - 99 mg/dL 10/14/2024 3:21 AM EDT [facility] Comment:Accuracy of a glucos e result obtained from a capillary whole blood specimen relies upon adequate, non-compromised capillary blood flow. If the capillary glucose result is not consistent with the patient's clinical signs and symptoms, glucose testing should be repeated with either an arterial or venous sample on the glucometer or sent to the main labortory for testing. Comment 10/14/2024 3:21 AM EDT [facility] Cuff Setter Overlock ID Carri Chand 10/14/2024 3:21 AM EDT [facility] LAB Device ID [id number] 10/14/2024 3:21 AM EDT [facility] Specimen Type POC Capillary 10/14/2024 3:21 AM EDT [facility] Blood Capillary blood specimen / Unknown 10/14/2024 3:19 AM EDT 10/14/2024 3:21 AM EDT Lamont Brumfield MD LAB POINT OF CARE TE ST DOCKED DEVICE UNSOLICITED RESULTS Final Result Performing Organization Address City/[facility] de Phone Number [facility] [address] [place] [address] * (ABNORMAL) POCT glucose meter (10/13/2024 7:12 PM EDT) POCT Glucose 116(H) 74 - 99 mg/dL 10/13/2024 7:13 PM EDT [facility] Comment:Accuracy of a glucos e result obtained from a capillary whole blood specimen relies upon adequate, non-compromised capillary blood flow. If the capillary glucose result is not consistent with the patient's clinical signs and symptoms, glucose testing should be repeated with either an arterial or venous sample on the glucometer or sent to the main labortory for testing. Comment 10/13/2024 7:13 PM EDT [facility] Cuff Setter Overlock ID Grazyna Bhakta 025 7:13 PM EDT [facility] LAB Device ID [id number] 10/13/2024 7:13 PM EDT [facility] Specimen Type POC Capillary 10/13/2024 7:13 PM EDT [facility] Blood Capillary blood specimen / Unknown 10/13/2024 7:12 PM EDT 10/13/2024 7:13 PM EDT us Lamont Brumfield MD LAB POINT OF CARE TE ST DOCKED DEVICE UNSOLICITED RESULTS Final Result Performing Organization Address City/[facility] Co de Phone Number [facility] [address] [place] [address] * (ABNORMAL) POCT glucose meter (10/13/2024 5:49 PM EDT) POCT Glucose 103(H) 74 - 99 mg/dL 10/13/2024 5:51 PM EDT [facility] Comment:Accuracy of a glucos e result obtained from a capillary whole blood specimen relies upon adequate, non-compromised capillary blood flow. If the capillary glucose result is not consistent with the patient's clinical signs and symptoms, glucose testing should be repeated with either an arterial or venous sample on the glucometer or sent to the main labortory for testing. Comment 10/13/2024 5:51 PM EDT [facility] Cuff Setter Overlock ID Moisés Lopez 10/13/2024 5:51 PM EDT [facility] Device ID [id number] 10/13/2024 5:51 PM EDT [facility] Specimen Type POC Capillary 10/13/2024 5:51 PM EDT [facility] Blood Capillary blood specimen / Unknown 10/13/2024 5:49 PM EDT 10/13/2024 5:51 PM EDT us Lamont Brumfield MD LAB POINT OF CARE TE ST DOCKED DEVICE UNSOLICITED RESULTS Final Result [facility] [address] [place] [address] * POCT glucose meter (10/13/2024 4:44 PM EDT) [facility] POCT Glucose 90 74 - 99 mg/dL 10/13/2024 4:45 PM EDT [facility] Comment:Accuracy of a glucos e result obtained from a capillary whole blood specimen relies upon adequate, non-compromised capillary blood flow. If the capillary glucose result is not consistent with the patient's clinical signs and symptoms, glucose testing should be repeated with either an arterial or venous sample on the glucometer or sent to the main labortory for testing. Comment 10/13/2024 4:45 PM EDT [facility] Cuff Setter Overlock ID Moisés Lopez 10/13/2024 4:45 PM EDT [facility] Device ID [id number] 10/13/2024 4:45 PM EDT [facility] Specimen Type POC Capillary 10/13/2024 4:45 PM EDT [facility] Blood Capillary blood specimen / Unknown 10/13/2024 4:44 PM EDT 10/13/2024 4:45 PM EDT us Lamont Brumfield MD LAB POINT OF CARE TE ST DOCKED DEVICE UNSOLICITED RESULTS Final Result Performing Organization Address [facility] Co de Phone Number [facility] [address] [place] [address] * (ABNORMAL) POCT glucose meter (10/13/2024 11:59 AM EDT) [facility] POCT Glucose 159(H) 74 - 99 mg/dL 10/13/2024 12:00 PM EDT [facility] Comment:Accuracy of a glucos e result obtained from a capillary whole blood specimen relies upon adequate, non-compromised capillary blood flow. If the capillary glucose result is not consistent with the patient's clinical signs and symptoms, glucose testing should be repeated with either an arterial or venous sample on the glucometer or sent to the main labortory for testing. Comment 10/13/2024 12:00 PM EDT [facility] Cuff Setter Overlock ID Moisés Lopez 10/13/2024 12:00 PM EDT [facility] Device ID [id number] 10/13/2024 12:00 PM EDT [facility] Specimen Type POC Capillary 10/13/2024 12:00 PM EDT [facility] Blood Capillary blood specimen / Unknown 10/13/2024 11:59 AM EDT 10/13/2024 12:00 PM EDT Lamont Brumfield MD LAB POINT OF CARE TE ST DOCKED DEVICE UNSOLICITED RESULTS Final Result Performing Organization Address [facility] de Phone Number [facility] [address] [place] [address] * (ABNORMAL) POCT glucose meter (10/13/2024 10:43 AM EDT) [facility] POCT Glucose 151(H) 74 - 99 mg/dL 10/13/2024 10:45 AM EDT [facility] Comment:Accuracy of a glucos e result obtained from a capillary whole blood specimen relies upon adequate, non-compromised capillary blood flow. If the capillary glucose result is not consistent with the patient's clinical signs and symptoms, glucose testing should be repeated with either an arterial or venous sample on the glucometer or sent to the main labortory for testing. Comment 10/13/2024 10:45 AM EDT [facility] Cuff Setter Overlock ID Moisés Lopez 10/13/2024 10:45 AM EDT [facility] Device ID [id number] 10/13/2024 10:45 AM EDT [facility] Specimen Type POC Capillary 10/13/2024 10:45 AM EDT [facility] Blood Capillary blood specimen / Unknown 10/13/2024 10:43 AM EDT 10/13/2024 10:45 AM EDT Lamont Brumfield MD LAB POINT OF CARE TE ST DOCKED DEVICE UNSOLICITED RESULTS Final Result Performing Organization Address City/[facility] Co de Phone Number [facility] [address] [place] [address] * POCT glucose meter (10/13/2024 9:20 AM EDT) POCT Glucose 82 74 - 99 mg/dL 10/13/2024 9:21 AM EDT [facility] Comment:Accuracy of a glucos e result obtained from a capillary whole blood specimen relies upon adequate, non-compromised capillary blood flow. If the capillary glucose result is not consistent with the patient's clinical signs and symptoms, glucose testing should be repeated with either an arterial or venous sample on the glucometer or sent to the main labortory for testing. Comment 10/13/2024 9:21 AM EDT [facility] Cuff Setter Overlock ID Moisés Lopez 10/13/2024 9:21 AM EDT [facility] Device ID [id number] 10/13/2024 9:21 AM EDT [facility] Specimen Type POC Capillary 10/13/2024 9:21 AM EDT [facility] Blood Capillary blood specimen / Unknown 10/13/2024 9:20 AM EDT 10/13/2024 9:21 AM EDT us Lamont Brumfield MD LAB POINT OF CARE TE ST DOCKED DEVICE UNSOLICITED RESULTS Final Result Performing Organization Address City/[facility] Co de Phone Number [facility] [address] [place] [address] * POCT glucose meter (10/13/2024 8:44 AM EDT) POCT Glucose 84 74 - 99 mg/dL 10/13/2024 8:47 AM EDT [facility] Comment:Accuracy of a glucos e result obtained from a capillary whole blood specimen relies upon adequate, non-compromised capillary blood flow. If the capillary glucose result is not consistent with the patient's clinical signs and symptoms, glucose testing should be repeated with either an arterial or venous sample on the glucometer or sent to the main labortory for testing. Comment 10/13/2024 8:47 AM EDT [facility] Cuff Setter Overlock ID Moisés Lopez 10/13/2024 8:47 AM EDT [facility] Device ID [id number] 10/13/2024 8:47 AM EDT [facility] Specimen Type POC Capillary 10/13/2024 8:47 AM EDT [facility] Blood Capillary blood specimen / Unknown 10/13/2024 8:44 AM EDT 10/13/2024 8:47 AM EDT Lamont Brumfield MD LAB POINT OF CARE TE ST DOCKED DEVICE UNSOLICITED RESULTS Final Result [facility] [address] [place] [address] * (ABNORMAL) POCT glucose meter (10/12/2024 8:07 PM EDT) [facility] POCT Glucose 123(H) 74 - 99 mg/dL 10/12/2024 8:09 PM EDT [facility] Comment:Accuracy of a glucos e result obtained from a capillary whole blood specimen relies upon adequate, non-compromised capillary blood flow. If the capillary glucose result is not consistent with the patient's clinical signs and symptoms, glucose testing should be repeated with either an arterial or venous sample on the glucometer or sent to the main labortory for testing. Comment 10/12/2024 8:09 PM EDT [facility] Cuff Setter Overlock ID Day Nicole 10/12/2024 8:09 PM EDT [facility] Device ID [id number] 10/12/2024 8:09 PM EDT [facility] Specimen Type POC Capillary 10/12/2024 8:09 PM EDT [facility] Blood Capillary blood specimen / Unknown 10/12/2024 8:07 PM EDT 10/12/2024 8:09 PM EDT Lamont Brumfield MD LAB POINT OF CARE TE ST DOCKED DEVICE UNSOLICITED RESULTS Final Result Performing Organization Address [facility] de Phone Number [facility] [address] [place] [address] * (ABNORMAL) POCT glucose meter (10/12/2024 5:32 PM EDT) [facility] POCT Glucose 104(H) 74 - 99 mg/dL 10/12/2024 5:33 PM EDT [facility] Comment:Accuracy of a glucos e result obtained from a capillary whole blood specimen relies upon adequate, non-compromised capillary blood flow. If the capillary glucose result is not consistent with the patient's clinical signs and symptoms, glucose testing should be repeated with either an arterial or venous sample on the glucometer or sent to the main labortory for testing. Comment 10/12/2024 5:33 PM EDT [facility] Cuff Setter Overlock ID Arlene Kerr 10/12/2024 5:33 PM EDT [facility] Device ID [id number] 10/12/2024 5:33 PM EDT [facility] Specimen Type POC Capillary 10/12/2024 5:33 PM EDT [facility] Blood Capillary blood specimen / Unknown 10/12/2024 5:32 PM EDT 10/12/2024 5:33 PM EDT Lamont Brumfield MD LAB POINT OF CARE TE ST DOCKED DEVICE UNSOLICITED RESULTS Final Result Performing Organization Address City/[facility] Co de Phone Number [facility] [address] [place] [address] * POCT glucose meter (10/12/2024 5:00 PM EDT) [facility] POCT Glucose 82 74 - 99 mg/dL 10/12/2024 5:02 PM EDT [facility] Comment:Accuracy of a glucos e result obtained from a capillary whole blood specimen relies upon adequate, non-compromised capillary blood flow. If the capillary glucose result is not consistent with the patient's clinical signs and symptoms, glucose testing should be repeated with either an arterial or venous sample on the glucometer or sent to the main labortory for testing. Comment 10/12/2024 5:02 PM EDT [facility] Cuff Setter Overlock Arlene Humphries 10/12/2024 5:02 PM EDT [facility] Device ID [id number] 10/12/2024 5:02 PM EDT [facility] Specimen Type POC Capillary 10/12/2024 5:02 PM EDT [facility] Blood Capillary blood specimen / Unknown 10/12/2024 5:00 PM EDT 10/12/2024 5:02 PM EDT us Lamont Brumfield MD LAB POINT OF CARE TE ST DOCKED DEVICE UNSOLICITED RESULTS Final Result Performing Organization Address City/[facility]/ZIP Co de Phone Number [facility] [address] [place] [address] * (ABNORMAL) POCT glucose meter (10/12/2024 12:02 PM EDT) [facility] POCT Glucose 171(H) 74 - 99 mg/dL 10/12/2024 12:04 PM EDT [facility] Comment:Accuracy of a glucos e result obtained from a capillary whole blood specimen relies upon adequate, non-compromised capillary blood flow. If the capillary glucose result is not consistent with the patient's clinical signs and symptoms, glucose testing should be repeated with either an arterial or venous sample on the glucometer or sent to the main labortory for testing. Comment 10/12/2024 12:04 PM EDT [facility] Cuff Setter Overlock Arlene Humphries 10/12/2024 12:04 PM EDT [facility] Device ID [id number] 10/12/2024 12:04 PM EDT [facility] Specimen Type POC Capillary 10/12/2024 12:04 PM EDT [facility] Blood Capillary blood specimen / Unknown 10/12/2024 12:02 PM EDT 10/12/2024 12:04 PM EDT us Lamont Brumfield MD LAB POINT OF CARE TE ST DOCKED DEVICE UNSOLICITED RESULTS Final Result [facility] [address] [place] [address] * POCT glucose meter (10/12/2024 8:38 AM EDT) [facility] POCT Glucose 95 74 - 99 mg/dL 10/12/2024 8:39 AM EDT [facility] Comment:Accuracy of a glucos e result obtained from a capillary whole blood specimen relies upon adequate, non-compromised capillary blood flow. If the capillary glucose result is not consistent with the patient's clinical signs and symptoms, glucose testing should be repeated with either an arterial or venous sample on the glucometer or sent to the main labortory for testing. Comment 10/12/2024 8:39 AM EDT [facility] Cuff Setter Overlock Arlene Humphries 10/12/2024 8:39 AM EDT [facility] Device ID [id number] 10/12/2024 8:39 AM EDT [facility] Specimen Type POC Capillary 10/12/2024 8:39 AM EDT [facility] Blood Capillary blood specimen / Unknown 10/12/2024 8:38 AM EDT 10/12/2024 8:39 AM EDT Lamont Brumfield MD LAB POINT OF CARE TE ST DOCKED DEVICE UNSOLICITED RESULTS Final Result [facility] [address] [place] [address] * POCT glucose meter (10/12/2024 8:00 AM EDT) [facility] POCT Glucose 88 74 - 99 mg/dL 10/12/2024 8:01 AM EDT [facility] Comment:Accuracy of a glucos e result obtained from a capillary whole blood specimen relies upon adequate, non-compromised capillary blood flow. If the capillary glucose result is not consistent with the patient's clinical signs and symptoms, glucose testing should be repeated with either an arterial or venous sample on the glucometer or sent to the main labortory for testing. Comment 10/12/2024 8:01 AM EDT [facility] Cuff Setter Overlock NORMAN Cirilo Arlene 10/12/2024 8:01 AM EDT [facility] Device ID [id number] 10/12/2024 8:01 AM EDT [facility] Specimen Type POC Capillary 10/12/2024 8:01 AM EDT [facility] Blood Capillary blood specimen / Unknown 10/12/2024 8:00 AM EDT 10/12/2024 8:01 AM EDT Lamont Brumfield MD LAB POINT OF CARE TE ST DOCKED DEVICE UNSOLICITED RESULTS Final Result Performing Organization Address City/[facility]/ZIP Co de Phone Number [facility] [address] [place] [address] * (ABNORMAL) POCT glucose meter (10/11/2024 7:34 PM EDT) POCT Glucose 145(H) 74 - 99 mg/dL 10/11/2024 7:35 PM EDT [facility] Comment:Accuracy of a glucos e result obtained from a capillary whole blood specimen relies upon adequate, non-compromised capillary blood flow. If the capillary glucose result is not consistent with the patient's clinical signs and symptoms, glucose testing should be repeated with either an arterial or venous sample on the glucometer or sent to the main labortory for testing. Comment 10/11/2024 7:35 PM EDT [facility] Cuff Setter Overlock ID Day Nicole 10/11/2024 7:35 PM EDT [facility] LAB Device ID [id number] 10/11/2024 7:35 PM EDT [facility] Specimen Type POC Capillary 10/11/2024 7:35 PM EDT [facility] Blood Capillary blood specimen / Unknown 10/11/2024 7:34 PM EDT 10/11/2024 7:35 PM EDT us Lamont Brumfield MD LAB POINT OF CARE TE ST DOCKED DEVICE UNSOLICITED RESULTS Final Result [facility] [address] [place] [address] * (ABNORMAL) POCT glucose meter (10/11/2024 4:34 PM EDT) POCT Glucose 148(H) 74 - 99 mg/dL 10/11/2024 4:37 PM EDT [facility] Comment:Accuracy of a glucos e result obtained from a capillary whole blood specimen relies upon adequate, non-compromised capillary blood flow. If the capillary glucose result is not consistent with the patient's clinical signs and symptoms, glucose testing should be repeated with either an arterial or venous sample on the glucometer or sent to the main labortory for testing. Comment 10/11/2024 4:37 PM EDT [facility] Cuff Setter Overlock ID Amara Zhang 4:37 PM EDT [facility] Device ID [id number] 10/11/2024 4:37 PM EDT [facility] Specimen Type POC Capillary 10/11/2024 4:37 PM EDT [facility] Blood Capillary blood specimen / Unknown 10/11/2024 4:34 PM EDT 10/11/2024 4:37 PM EDT Lamont Brumfield MD LAB POINT OF CARE TE ST DOCKED DEVICE UNSOLICITED RESULTS Final Result [facility] [address] [place] [address] * (ABNORMAL) POCT glucose meter (10/11/2024 2:18 PM EDT) [facility] POCT Glucose 117(H) 74 - 99 mg/dL 10/11/2024 2:37 PM EDT [facility] Comment:Accuracy of a glucos e result obtained from a capillary whole blood specimen relies upon adequate, non-compromised capillary blood flow. If the capillary glucose result is not consistent with the patient's clinical signs and symptoms, glucose testing should be repeated with either an arterial or venous sample on the glucometer or sent to the main labortory for testing. Comment 10/11/2024 2:37 PM EDT [facility] Cuff Setter Overlock ID Amara Zhang 2:37 PM EDT [facility] Device ID [id number] 10/11/2024 2:37 PM EDT [facility] Specimen Type POC Capillary 10/11/2024 2:37 PM EDT [facility] Blood Capillary blood specimen / Unknown 10/11/2024 2:18 PM EDT 10/11/2024 2:37 PM EDT Lamont Brumfield MD LAB POINT OF CARE TE ST DOCKED DEVICE UNSOLICITED RESULTS Final Result Performing Organization Address City/[facility] Co de Phone Number [facility] [address] [place] [address] * (ABNORMAL) POCT glucose meter (10/11/2024 8:37 AM EDT) POCT Glucose 119(H) 74 - 99 mg/dL 10/11/2024 8:38 AM EDT [facility] Comment:Accuracy of a glucos e result obtained from a capillary whole blood specimen relies upon adequate, non-compromised capillary blood flow. If the capillary glucose result is not consistent with the patient's clinical signs and symptoms, glucose testing should be repeated with either an arterial or venous sample on the glucometer or sent to the main labortory for testing. Comment 10/11/2024 8:38 AM EDT [facility] Cuff Setter Overlock ID Moisés Lopez 10/11/2024 8:38 AM EDT [facility] Device ID [id number] 10/11/2024 8:38 AM EDT [facility] Specimen Type POC Capillary 10/11/2024 8:38 AM EDT [facility] Blood Capillary blood specimen / Unknown 10/11/2024 8:37 AM EDT 10/11/2024 8:38 AM EDT Lamont Brumfield MD LAB POINT OF CARE TE ST DOCKED DEVICE UNSOLICITED RESULTS Final Result Performing Organization Address City/[facility] Co de Phone Number [facility] [address] [place] [address] * (ABNORMAL) POCT glucose meter (10/10/2024 7:34 PM EDT) POCT Glucose 141(H) 74 - 99 mg/dL 10/10/2024 7:36 PM EDT [facility] Comment:Accuracy of a glucos e result obtained from a capillary whole blood specimen relies upon adequate, non-compromised capillary blood flow. If the capillary glucose result is not consistent with the patient's clinical signs and symptoms, glucose testing should be repeated with either an arterial or venous sample on the glucometer or sent to the main labortory for testing. Comment 10/10/2024 7:36 PM EDT [facility] Cuff Setter Overlock ID Blair Murray 10/11/19 7:36 PM EDT [facility] Device ID [id number] 10/10/2024 7:36 PM EDT [facility] Specimen Type POC Capillary 10/10/2024 7:36 PM EDT [facility] Blood Capillary blood specimen / Unknown 10/10/2024 7:34 PM EDT 10/10/2024 7:36 PM EDT us Lamont Brumfield MD LAB POINT OF CARE TE ST DOCKED DEVICE UNSOLICITED RESULTS Final Result Performing Organization Address [facility] Co de Phone Number [facility] [address] [place] [address] * (ABNORMAL) POCT glucose meter (10/10/2024 4:26 PM EDT) POCT Glucose 126(H) 74 - 99 mg/dL 10/10/2024 4:28 PM EDT [facility] Comment:Accuracy of a glucos e result obtained from a capillary whole blood specimen relies upon adequate, non-compromised capillary blood flow. If the capillary glucose result is not consistent with the patient's clinical signs and symptoms, glucose testing should be repeated with either an arterial or venous sample on the glucometer or sent to the main labortory for testing. Comment 10/10/2024 4:28 PM EDT [facility] Cuff Setter Overlock ID Lio Gomez 10/10/2024 4:28 PM EDT [facility] Device ID [id number] 10/10/2024 4:28 PM EDT [facility] Specimen Type POC Capillary 10/10/2024 4:28 PM EDT [facility] Blood Capillary blood specimen / Unknown 10/10/2024 4:26 PM EDT 10/10/2024 4:28 PM EDT us Lamont Brumfield MD LAB POINT OF CARE TE ST DOCKED DEVICE UNSOLICITED RESULTS Final Result Performing Organization Address City/[facility]/ZIP Co de Phone Number [facility] [address] [place] [address] * (ABNORMAL) POCT glucose meter (10/10/2024 12:07 PM EDT) [facility] POCT Glucose 145(H) 74 - 99 mg/dL 10/10/2024 12:09 PM EDT [facility] Comment:Accuracy of a glucos e result obtained from a capillary whole blood specimen relies upon adequate, non-compromised capillary blood flow. If the capillary glucose result is not consistent with the patient's clinical signs and symptoms, glucose testing should be repeated with either an arterial or venous sample on the glucometer or sent to the main labortory for testing. Comment 10/10/2024 12:09 PM EDT [facility] Cuff Setter Overlock ID Lio Gomez 10/10/2024 12:09 PM EDT [facility] Device ID [id number] 10/10/2024 12:09 PM EDT [facility] Specimen Type POC Capillary 10/10/2024 12:09 PM EDT [facility] Blood Capillary blood specimen / Unknown 10/10/2024 12:07 PM EDT 10/10/2024 12:09 PM EDT Lamont Brumfield MD LAB POINT OF CARE TE ST DOCKED DEVICE UNSOLICITED RESULTS Final Result [facility] [address] [place] [address] * (ABNORMAL) POCT glucose meter (10/10/2024 9:40 AM EDT) [facility] POCT Glucose 162(H) 74 - 99 mg/dL 10/10/2024 9:41 AM EDT [facility] Comment:Accuracy of a glucos e result obtained from a capillary whole blood specimen relies upon adequate, non-compromised capillary blood flow. If the capillary glucose result is not consistent with the patient's clinical signs and symptoms, glucose testing should be repeated with either an arterial or venous sample on the glucometer or sent to the main labortory for testing. Comment 10/10/2024 9:41 AM EDT [facility] Cuff Setter Overlock ID Lio Gomez 10/10/2024 9:41 AM EDT [facility] Device ID [id number] 10/10/2024 9:41 AM EDT [facility] Specimen Type POC Capillary 10/10/2024 9:41 AM EDT [facility] Blood Capillary blood specimen / Unknown 10/10/2024 9:40 AM EDT 10/10/2024 9:41 AM EDT Lamont Brumfield MD LAB POINT OF CARE TE ST DOCKED DEVICE UNSOLICITED RESULTS Final Result Performing Organization Address City/[facility]/ZIP Co de Phone Number [facility] [address] [place] [address] * (ABNORMAL) POCT glucose meter (10/10/2024 9:00 AM EDT) POCT Glucose 111(H) 74 - 99 mg/dL 10/10/2024 9:01 AM EDT [facility] Comment:Accuracy of a glucos e result obtained from a capillary whole blood specimen relies upon adequate, non-compromised capillary blood flow. If the capillary glucose result is not consistent with the patient's clinical signs and symptoms, glucose testing should be repeated with either an arterial or venous sample on the glucometer or sent to the main labortory for testing. Comment 10/10/2024 9:01 AM EDT [facility] Cuff Setter Overlock ID Rose Guy 025 9:01 AM EDT [facility] Device ID [id number] 10/10/2024 9:01 AM EDT [facility] Specimen Type POC Capillary 10/10/2024 9:01 AM EDT [facility] Blood Capillary blood specimen / Unknown 10/10/2024 9:00 AM EDT 10/10/2024 9:01 AM EDT us Lamont Brumfield MD LAB POINT OF CARE TE ST DOCKED DEVICE UNSOLICITED RESULTS Final Result Performing Organization Address City/[facility]/ZIP Co de Phone Number [facility] [address] [place] [address] * (ABNORMAL) POCT glucose meter (10/09/2024 8:22 PM EDT) POCT Glucose 145(H) 74 - 99 mg/dL 10/09/2024 8:24 PM EDT [facility] Comment:Accuracy of a glucos e result obtained from a capillary whole blood specimen relies upon adequate, non-compromised capillary blood flow. If the capillary glucose result is not consistent with the patient's clinical signs and symptoms, glucose testing should be repeated with either an arterial or venous sample on the glucometer or sent to the main labortory for testing. Comment 10/09/2024 8:24 PM EDT [facility] Cuff Setter Overlock ID Marilee Sevilla 8:24 PM EDT [facility] Device ID [id number] 10/09/2024 8:24 PM EDT [facility] Specimen Type POC Capillary 10/09/2024 8:24 PM EDT [facility] Blood Capillary blood specimen / Unknown 10/09/2024 8:22 PM EDT 10/09/2024 8:24 PM EDT Lamont Brumfield MD LAB POINT OF CARE TE ST DOCKED DEVICE UNSOLICITED RESULTS Final Result Performing Organization Address City/State/[facility] Co de Phone Number [facility] [address] [place] [address] * (ABNORMAL) POCT glucose meter (10/09/2024 4:43 PM EDT) [facility] POCT Glucose 176(H) 74 - 99 mg/dL 10/09/2024 4:45 PM EDT [facility] Comment:Accuracy of a glucos e result obtained from a capillary whole blood specimen relies upon adequate, non-compromised capillary blood flow. If the capillary glucose result is not consistent with the patient's clinical signs and symptoms, glucose testing should be repeated with either an arterial or venous sample on the glucometer or sent to the main labortory for testing. Comment 10/09/2024 4:45 PM EDT [facility] Cuff Setter Overlock ID Lio Gomez 10/09/2024 4:45 PM EDT [facility] Device ID [id number] 10/09/2024 4:45 PM EDT [facility] Specimen Type POC Capillary 10/09/2024 4:45 PM EDT [facility] Blood Capillary blood specimen / Unknown 10/09/2024 4:43 PM EDT 10/09/2024 4:45 PM EDT us Lamont Brumfield MD LAB POINT OF CARE TE ST DOCKED DEVICE UNSOLICITED RESULTS Final Result Performing Organization Address City/[facility] Co de Phone Number [facility] [address] [place] [address] * (ABNORMAL) Hemoglobin and Hematocrit, Blood (10/09/2024 3:45 PM EDT) [facility] HGB 8.2(L) 13.7 - 17.5 g/dL LAB HEMATOLOGY METHOD 10/09/2024 3:54 PM EDT [facility] HCT 23.7(L) 40.0 - 51.0 % LAB HEMATOLOGY METHOD 10/09/2024 3:54 PM EDT [facility] Blood Arterial blood specimen / Unknown Arterial Puncture / Unknown 10/09/2024 3:45 PM EDT 10/09/2024 3:52 PM EDT us Daphne Landry MEDICAL ADMINISTRATIVE TECHNICIAN, DNP LAB BLOOD ORDERABLES Selene l Result Performing Organization Address City/[facility] de Phone Number [facility]ARE [facility] [address] [place] [address] * (ABNORMAL) POCT glucose meter (10/09/2024 8:01 AM EDT) [facility] POCT Glucose 100(H) 74 - 99 mg/dL 10/09/2024 11:23 AM EDT [facility] Comment:Accuracy of a glucos e result obtained from a capillary whole blood specimen relies upon adequate, non-compromised capillary blood flow. If the capillary glucose result is not consistent with the patient's clinical signs and symptoms, glucose testing should be repeated with either an arterial or venous sample on the glucometer or sent to the main labortory for testing. Comment 10/09/2024 11:23 AM EDT [facility] Cuff Setter Overlock ID Lio Gomez 10/09/2024 11:23 AM EDT [facility] Device ID [id number] 10/09/2024 11:23 AM EDT [facility] Specimen Type POC Capillary 10/09/2024 11:23 AM EDT [facility] Blood Capillary blood specimen / Unknown 10/09/2024 8:01 AM EDT 10/09/2024 11:23 AM EDT Lamont Brumfield MD LAB POINT OF CARE TE ST DOCKED DEVICE UNSOLICITED RESULTS Final Result Performing Organization Address [facility] de Phone Number [facility] [address] [place] [address] * (ABNORMAL) POCT glucose meter (10/08/2024 7:37 PM EDT) Pathologist [facility] POCT Glucose 138(H) 74 - 99 mg/dL 10/08/2024 7:39 PM EDT [facility] Comment:Accuracy of a glucos e result obtained from a capillary whole blood specimen relies upon adequate, non-compromised capillary blood flow. If the capillary glucose result is not consistent with the patient's clinical signs and symptoms, glucose testing should be repeated with either an arterial or venous sample on the glucometer or sent to the main labortory for testing. Comment 10/08/2024 7:39 PM EDT [facility] Cuff Setter Overlock ID Grazyna Bhakta 025 7:39 PM EDT [facility] Device ID [id number] 10/08/2024 7:39 PM EDT [facility] Specimen Type POC Capillary 10/08/2024 7:39 PM EDT [facility] Blood Capillary blood specimen / Unknown 10/08/2024 7:37 PM EDT 10/08/2024 7:39 PM EDT Lamont Brumfield MD LAB POINT OF CARE TE ST DOCKED DEVICE UNSOLICITED RESULTS Final Result Performing Organization Address City/[facility] de Phone Number [facility] [address] [place] [address] * (ABNORMAL) POCT glucose meter (10/08/2024 4:42 PM EDT) Pathologist [facility] POCT Glucose 109(H) 74 - 99 mg/dL 10/08/2024 4:43 PM EDT [facility] Comment:Accuracy of a glucos e result obtained from a capillary whole blood specimen relies upon adequate, non-compromised capillary blood flow. If the capillary glucose result is not consistent with the patient's clinical signs and symptoms, glucose testing should be repeated with either an arterial or venous sample on the glucometer or sent to the main labortory for testing. Comment 10/08/2024 4:43 PM EDT [facility] Cuff Setter Overlock ID Lio Gomez 10/08/2024 4:43 PM EDT [facility] Device ID [id number] 10/08/2024 4:43 PM EDT [facility] Specimen Type POC Capillary 10/08/2024 4:43 PM EDT [facility] Blood Capillary blood specimen / Unknown 10/08/2024 4:42 PM EDT 10/08/2024 4:43 PM EDT us Lamont Brumfield MD LAB POINT OF CARE TE ST DOCKED DEVICE UNSOLICITED RESULTS Final Result Performing Organization Address City/[facility] Co de Phone Number [facility] [address] [place] [address] * (ABNORMAL) POCT glucose meter (10/08/2024 12:11 PM EDT) [facility] POCT Glucose 252(H) 74 - 99 mg/dL 10/08/2024 12:13 PM EDT [facility] Comment:Accuracy of a glucos e result obtained from a capillary whole blood specimen relies upon adequate, non-compromised capillary blood flow. If the capillary glucose result is not consistent with the patient's clinical signs and symptoms, glucose testing should be repeated with either an arterial or venous sample on the glucometer or sent to the main labortory for testing. Comment 10/08/2024 12:13 PM EDT [facility] Cuff Setter Overlock ID Lio Gomez 10/08/2024 12:13 PM EDT [facility] Device ID [id number] 10/08/2024 12:13 PM EDT [facility] Specimen Type POC Capillary 10/08/2024 12:13 PM EDT [facility] Blood Capillary blood specimen / Unknown 10/08/2024 12:11 PM EDT 10/08/2024 12:13 PM EDT us Lamont Brumfield MD LAB POINT OF CARE TE ST DOCKED DEVICE UNSOLICITED RESULTS Final Result Performing Organization Address City/[facility]/ZIP Co de Phone Number [facility] [address] [place] [address] * (ABNORMAL) POCT glucose meter (10/08/2024 8:21 AM EDT) [facility] POCT Glucose 108(H) 74 - 99 mg/dL 10/08/2024 8:22 AM EDT [facility] Comment:Accuracy of a glucos e result obtained from a capillary whole blood specimen relies upon adequate, non-compromised capillary blood flow. If the capillary glucose result is not consistent with the patient's clinical signs and symptoms, glucose testing should be repeated with either an arterial or venous sample on the glucometer or sent to the main labortory for testing. Comment 10/08/2024 8:22 AM EDT [facility] Cuff Setter Overlock ID Lio Gomez 10/08/2024 8:22 AM EDT [facility] Device ID [id number] 10/08/2024 8:22 AM EDT [facility] Specimen Type POC Capillary 10/08/2024 8:22 AM EDT [facility] Blood Capillary blood specimen / Unknown 10/08/2024 8:21 AM EDT 10/08/2024 8:22 AM EDT Lamont Brumfield MD LAB POINT OF CARE TE ST DOCKED DEVICE UNSOLICITED RESULTS Final Result [facility] [address] [place] [address] * (ABNORMAL) POCT glucose meter (10/07/2024 9:10 PM EDT) [facility] POCT Glucose 134(H) 74 - 99 mg/dL 10/07/2024 9:12 PM EDT [facility] Comment:Accuracy of a glucos e result obtained from a capillary whole blood specimen relies upon adequate, non-compromised capillary blood flow. If the capillary glucose result is not consistent with the patient's clinical signs and symptoms, glucose testing should be repeated with either an arterial or venous sample on the glucometer or sent to the main labortory for testing. Comment 10/07/2024 9:12 PM EDT [facility] Cuff Setter Overlock ID Marilee Sevilla 9:12 PM EDT [facility] Device ID [id number] 10/07/2024 9:12 PM EDT [facility] Specimen Type POC Capillary 10/07/2024 9:12 PM EDT [facility] Blood Capillary blood specimen / Unknown 10/07/2024 9:10 PM EDT 10/07/2024 9:12 PM EDT us Lamont Brumfield MD LAB POINT OF CARE TE ST DOCKED DEVICE UNSOLICITED RESULTS Final Result Performing Organization Address City/[facility]/ZIP Co de Phone Number [facility] [address] [place] [address] * (ABNORMAL) POCT glucose meter (10/07/2024 4:28 PM EDT) POCT Glucose 145(H) 74 - 99 mg/dL 10/07/2024 4:30 PM EDT [facility] Comment:Accuracy of a glucos e result obtained from a capillary whole blood specimen relies upon adequate, non-compromised capillary blood flow. If the capillary glucose result is not consistent with the patient's clinical signs and symptoms, glucose testing should be repeated with either an arterial or venous sample on the glucometer or sent to the main labortory for testing. Comment 10/07/2024 4:30 PM EDT [facility] Cuff Setter Overlock ID Moisés Lopez 10/07/2024 4:30 PM EDT [facility] Device ID [id number] 10/07/2024 4:30 PM EDT [facility] Specimen Type POC Capillary 10/07/2024 4:30 PM EDT [facility] Blood Capillary blood specimen / Unknown 10/07/2024 4:28 PM EDT 10/07/2024 4:30 PM EDT us Leda Zeng MD LAB POIN T OF CARE TEST DOCKED DEVICE UNSOLICITED RESULTS Final Result Performing Organization Address City/[facility] Co de Phone Number [facility] [address] [place] [address] * (ABNORMAL) POCT glucose meter (10/07/2024 1:04 PM EDT) POCT Glucose 165(H) 74 - 99 mg/dL 10/07/2024 1:06 PM EDT [facility] Comment:Accuracy of a glucos e result obtained from a capillary whole blood specimen relies upon adequate, non-compromised capillary blood flow. If the capillary glucose result is not consistent with the patient's clinical signs and symptoms, glucose testing should be repeated with either an arterial or venous sample on the glucometer or sent to the main labortory for testing. Comment 10/07/2024 1:06 PM EDT [facility] Cuff Setter Overlock ID Dorothea Rai 1:06 PM EDT [facility] Device ID [id number] 10/07/2024 1:06 PM EDT [facility] Specimen Type POC Capillary 10/07/2024 1:06 PM EDT [facility] Blood Capillary blood specimen / Unknown 10/07/2024 1:04 PM EDT 10/07/2024 1:06 PM EDT Leda Zeng MD LAB POIN T OF CARE TEST DOCKED DEVICE UNSOLICITED RESULTS Final Result [facility] [address] [place] [address] * (ABNORMAL) POCT glucose meter (10/07/2024 8:24 AM EDT) [facility] POCT Glucose 116(H) 74 - 99 mg/dL 10/07/2024 8:26 AM EDT [facility] Comment:Accuracy of a glucos e result obtained from a capillary whole blood specimen relies upon adequate, non-compromised capillary blood flow. If the capillary glucose result is not consistent with the patient's clinical signs and symptoms, glucose testing should be repeated with either an arterial or venous sample on the glucometer or sent to the main labortory for testing. Comment 10/07/2024 8:26 AM EDT [facility] Cuff Setter Overlock ID Moisés Lopez 10/07/2024 8:26 AM EDT [facility] Device ID [id number] 10/07/2024 8:26 AM EDT [facility] Specimen Type POC Capillary 10/07/2024 8:26 AM EDT [facility] Blood Capillary blood specimen / Unknown 10/07/2024 8:24 AM EDT 10/07/2024 8:26 AM EDT Leda Zeng MD LAB POIN T OF CARE TEST DOCKED DEVICE UNSOLICITED RESULTS Final Result Performing Organization Address [facility] de Phone Number [facility] [address] [place] [address] * POCT glucose meter (10/07/2024 7:37 AM EDT) Pathologist [facility] POCT Glucose 85 74 - 99 mg/dL 10/07/2024 7:39 AM EDT [facility] Comment:Accuracy of a glucos e result obtained from a capillary whole blood specimen relies upon adequate, non-compromised capillary blood flow. If the capillary glucose result is not consistent with the patient's clinical signs and symptoms, glucose testing should be repeated with either an arterial or venous sample on the glucometer or sent to the main labortory for testing. Comment 10/07/2024 7:39 AM EDT [facility] Cuff Setter Overlock ID Moisés Lopez 10/07/2024 7:39 AM EDT [facility] LAB Device ID [id number] 10/07/2024 7:39 AM EDT [facility] Specimen Type POC Capillary 10/07/2024 7:39 AM EDT [facility] Blood Capillary blood specimen / Unknown 10/07/2024 7:37 AM EDT 10/07/2024 7:39 AM EDT Leda Zeng MD LAB POIN T OF CARE TEST DOCKED DEVICE UNSOLICITED RESULTS Final Result Performing Organization Address City/[facility] Co de Phone Number [facility] [address] [place] [address] * (ABNORMAL) Magnesium, Plasma (10/07/2024 2:48 AM EDT) Pathologist [facility] Magnesium, Plasma 1.6(L) 1.9 - 2.4 mg/dL 10/07/2024 3:28 AM EDT [facility] Blood Venous blood specimen / Unknown Venipuncture / Unknown 10/07/2024 2:48 AM EDT 10/07/2024 2:58 AM EDT us Leda Zeng MD LAB BLOOD ORDERA BLES Final Result [facility] [address] [place] [address] * (ABNORMAL) Renal Function Panel, Plasma (10/07/2024 2:48 AM EDT) Glucose, Plasma 96 74 - 99 mg/dL 10/07/2024 3:28 AM EDT [facility] BUN, Plasma 41(H) 8 - 23 mg/dL 10/07/2024 3:28 AM EDT [facility] Creatinine, Plasma 6.91(H) 0.70 - 1.20 mg/dL 10/07/2024 3:28 AM EDT [facility] BUN/Creatinine Ratio 6 10/07/2024 3:28 AM EDT [facility] Sodium, Plasma 125(L) 136 - 145 mmol/L 10/07/2024 3:28 AM EDT [facility] Potassium, Plasma 4.1 3.6 - 4.9 mmol/L 10/07/2024 3:28 AM EDT [facility] Chloride, Plasma 92(L) 97 - 107 mmol/L 10/07/2024 3:28 AM EDT [facility] CO2, Plasma 23 22 - 29 mmol/L 10/07/2024 3:28 AM EDT [facility] Anion Gap 10 6 - 16 mmol/L 10/07/2024 3:28 AM EDT [facility] Total Calcium, Plasma 7.2(L) 8.9 - 10.2 mg/dL 10/07/2024 3:28 AM EDT [facility] Phosphorus, Plasma 4.2 2.5 - 4.5 mg/dL 10/07/2024 3:28 AM EDT [facility] Albumin, Plasma 3.1(L) 3.5 - 5.2 g/dL 10/07/2024 3:28 AM EDT [facility] eGFRcr 8.2 mL/min/1.7 3m*2 10/07/2024 3:28 AM EDT [facility] Comment:Reported eGFRcr in m L/min/1.73m2 is based the CKD-EPI 2020 equation that does not use a race coefficient. Blood Venous blood specimen / Unknown Venipuncture / Unknown 10/07/2024 2:48 AM EDT 10/07/2024 2:58 AM EDT Leda Zeng MD LAB BLOOD ORDERA BLES Final Result Performing Organization Address [facility] Co de Phone Number [facility] [address] [place] [address] * (ABNORMAL) POCT glucose meter (10/06/2024 7:42 PM EDT) POCT Glucose 129(H) 74 - 99 mg/dL 10/06/2024 7:44 PM EDT [facility] Comment:Accuracy of a glucos e result obtained from a capillary whole blood specimen relies upon adequate, non-compromised capillary blood flow. If the capillary glucose result is not consistent with the patient's clinical signs and symptoms, glucose testing should be repeated with either an arterial or venous sample on the glucometer or sent to the main labortory for testing. Comment 10/06/2024 7:44 PM EDT [facility] Cuff Setter Overlock ID Grazyna Bhakta 025 7:44 PM EDT [facility] Device ID [id number] 10/06/2024 7:44 PM EDT [facility] Specimen Type POC Capillary 10/06/2024 7:44 PM EDT [facility] Blood Capillary blood specimen / Unknown 10/06/2024 7:42 PM EDT 10/06/2024 7:44 PM EDT Leda Zeng MD LAB POIN T OF CARE TEST DOCKED DEVICE UNSOLICITED RESULTS Final Result Performing Organization Address City/[facility] Co de Phone Number [facility] [address] [place] [address] * (ABNORMAL) POCT glucose meter (10/06/2024 5:00 PM EDT) POCT Glucose 137(H) 74 - 99 mg/dL 10/06/2024 5:01 PM EDT [facility] Comment:Accuracy of a glucos e result obtained from a capillary whole blood specimen relies upon adequate, non-compromised capillary blood flow. If the capillary glucose result is not consistent with the patient's clinical signs and symptoms, glucose testing should be repeated with either an arterial or venous sample on the glucometer or sent to the main labortory for testing. Comment 10/06/2024 5:01 PM EDT [facility] Cuff Setter Overlock ID Moisés Lopez 10/06/2024 5:01 PM EDT [facility] Device ID [id number] 10/06/2024 5:01 PM EDT [facility] Specimen Type POC Capillary 10/06/2024 5:01 PM EDT [facility] Blood Capillary blood specimen / Unknown 10/06/2024 5:00 PM EDT 10/06/2024 5:01 PM EDT us Leda Zeng MD LAB POIN T OF CARE TEST DOCKED DEVICE UNSOLICITED RESULTS Final Result [facility] [address] [place] [address] * (ABNORMAL) POCT glucose meter (10/06/2024 12:03 PM EDT) [facility] POCT Glucose 122(H) 74 - 99 mg/dL 10/06/2024 12:05 PM EDT [facility] Comment:Accuracy of a glucos e result obtained from a capillary whole blood specimen relies upon adequate, non-compromised capillary blood flow. If the capillary glucose result is not consistent with the patient's clinical signs and symptoms, glucose testing should be repeated with either an arterial or venous sample on the glucometer or sent to the main labortory for testing. Comment 10/06/2024 12:05 PM EDT [facility] Cuff Setter Overlock ID Moisés Lopez 10/06/2024 12:05 PM EDT [facility] Device ID [id number] 10/06/2024 12:05 PM EDT [facility] Specimen Type POC Capillary 10/06/2024 12:05 PM EDT [facility] Blood Capillary blood specimen / Unknown 10/06/2024 12:03 PM EDT 10/06/2024 12:05 PM EDT us Leda Zeng MD LAB POIN T OF CARE TEST DOCKED DEVICE UNSOLICITED RESULTS Final Result Performing Organization Address City/[facility]/ZIP Co de Phone Number [facility]ARE [facility] [address] [place] [address] * POCT glucose meter (10/06/2024 11:10 AM EDT) POCT Glucose 96 74 - 99 mg/dL 10/06/2024 11:12 AM EDT [facility] Comment:Accuracy of a glucos e result obtained from a capillary whole blood specimen relies upon adequate, non-compromised capillary blood flow. If the capillary glucose result is not consistent with the patient's clinical signs and symptoms, glucose testing should be repeated with either an arterial or venous sample on the glucometer or sent to the main labortory for testing. Comment 10/06/2024 11:12 AM EDT [facility] Cuff Setter Overlock ID Moisés Lopez 10/06/2024 11:12 AM EDT [facility] Device ID [id number] 10/06/2024 11:12 AM EDT [facility] Specimen Type POC Capillary 10/06/2024 11:12 AM EDT [facility] Blood Capillary blood specimen / Unknown 10/06/2024 11:10 AM EDT 10/06/2024 11:12 AM EDT Leda Zeng MD LAB POIN T OF CARE TEST DOCKED DEVICE UNSOLICITED RESULTS Final Result Performing Organization Address [facility] Co de Phone Number [facility] [address] [place] [address] * (ABNORMAL) Magnesium, Plasma (10/06/2024 3:05 AM EDT) Magnesium, Plasma 1.8(L) 1.9 - 2.4 mg/dL 10/06/2024 3:55 AM EDT [facility] Blood Venous blood specimen / Unknown Venipuncture / Unknown 10/06/2024 3:05 AM EDT 10/06/2024 3:27 AM EDT Leda Zeng MD LAB BLOOD ORDERA BLES Final Result [facility] [address] [place] [address] * (ABNORMAL) Renal Function Panel, Plasma (10/06/2024 3:05 AM EDT) Glucose, Plasma 103(H) 74 - 99 mg/dL 10/06/2024 3:55 AM EDT [facility] BUN, Plasma 30(H) 8 - 23 mg/dL 10/06/2024 3:55 AM EDT [facility] Creatinine, Plasma 5.95(H) 0.70 - 1.20 mg/dL 10/06/2024 3:55 AM EDT [facility] BUN/Creatinine Ratio 5 10/06/2024 3:55 AM EDT [facility] Sodium, Plasma 125(L) 136 - 145 mmol/L 10/06/2024 3:55 AM EDT [facility] Potassium, Plasma 3.8 3.6 - 4.9 mmol/L 10/06/2024 3:55 AM EDT [facility] Chloride, Plasma 92(L) 97 - 107 mmol/L 10/06/2024 3:55 AM EDT [facility] CO2, Plasma 23 22 - 29 mmol/L 10/06/2024 3:55 AM EDT [facility] Anion Gap 10 6 - 16 mmol/L 10/06/2024 3:55 AM EDT [facility] Total Calcium, Plasma 7.5(L) 8.9 - 10.2 mg/dL 10/06/2024 3:55 AM EDT [facility] Phosphorus, Plasma 3.5 2.5 - 4.5 mg/dL 10/06/2024 3:55 AM EDT [facility] Albumin, Plasma 3.2(L) 3.5 - 5.2 g/dL 10/06/2024 3:55 AM EDT [facility] eGFRcr 9.8 mL/min/1.7 3m*2 10/06/2024 3:55 AM EDT [facility] Comment:Reported eGFRcr in m L/min/1.73m2 is based the CKD-EPI 2020 equation that does not use a race coefficient. Blood Venous blood specimen / Unknown Venipuncture / Unknown 10/06/2024 3:05 AM EDT 10/06/2024 3:27 AM EDT Leda Zeng MD LAB BLOOD ORDERA BLES Final Result Performing Organization Address [facility] Co de Phone Number [facility] [address] [place] [address] * (ABNORMAL) POCT glucose meter (10/05/2024 8:10 PM EDT) POCT Glucose 136(H) 74 - 99 mg/dL 10/05/2024 8:12 PM EDT [facility] Comment:Accuracy of a glucos e result obtained from a capillary whole blood specimen relies upon adequate, non-compromised capillary blood flow. If the capillary glucose result is not consistent with the patient's clinical signs and symptoms, glucose testing should be repeated with either an arterial or venous sample on the glucometer or sent to the main labortory for testing. Comment 10/05/2024 8:12 PM EDT [facility] Cuff Setter Overlock ID [email or web address] [email or web address] 10/05/2024 8:12 PM EDT [facility] Device ID [id number] 10/05/2024 8:12 PM EDT [facility] Specimen Type POC Capillary 10/05/2024 8:12 PM EDT [facility] Blood Capillary blood specimen / Unknown 10/05/2024 8:10 PM EDT 10/05/2024 8:12 PM EDT Leda Zeng MD LAB POIN T OF CARE TEST DOCKED DEVICE UNSOLICITED RESULTS Final Result Performing Organization Address [facility] Co de Phone Number [facility] [address] [place] [address] * (ABNORMAL) POCT glucose meter (10/05/2024 4:21 PM EDT) POCT Glucose 114(H) 74 - 99 mg/dL 10/05/2024 4:23 PM EDT [facility] Comment:Accuracy of a glucos e result obtained from a capillary whole blood specimen relies upon adequate, non-compromised capillary blood flow. If the capillary glucose result is not consistent with the patient's clinical signs and symptoms, glucose testing should be repeated with either an arterial or venous sample on the glucometer or sent to the main labortory for testing. Comment 10/05/2024 4:23 PM EDT [facility] Cuff Setter Overlock ID Ricco Piper 10/05/2024 4:23 PM EDT [facility] Device ID [id number] 10/05/2024 4:23 PM EDT [facility] Specimen Type POC Capillary 10/05/2024 4:23 PM EDT [facility] Blood Capillary blood specimen / Unknown 10/05/2024 4:21 PM EDT 10/05/2024 4:23 PM EDT Leda Zeng MD LAB POIN T OF CARE TEST DOCKED DEVICE UNSOLICITED RESULTS Final Result Performing Organization Address [facility] de Phone Number [facility]ARE [facility] [address] [place] [address] * (ABNORMAL) POCT glucose meter (10/05/2024 11:52 AM EDT) POCT Glucose 142(H) 74 - 99 mg/dL 10/05/2024 12:00 PM EDT [facility] Comment:Accuracy of a glucos e result obtained from a capillary whole blood specimen relies upon adequate, non-compromised capillary blood flow. If the capillary glucose result is not consistent with the patient's clinical signs and symptoms, glucose testing should be repeated with either an arterial or venous sample on the glucometer or sent to the main labortory for testing. Comment 10/05/2024 12:00 PM EDT [facility] Cuff Setter Overlock ID Ricco Piper 10/05/2024 12:00 PM EDT [facility] Device ID [id number] 10/05/2024 12:00 PM EDT [facility] Specimen Type POC Capillary 10/05/2024 12:00 PM EDT [facility] Blood Capillary blood specimen / Unknown 10/05/2024 11:52 AM EDT 10/05/2024 12:00 PM EDT Leda Zeng MD LAB POIN T OF CARE TEST DOCKED DEVICE UNSOLICITED RESULTS Final Result Performing Organization Address City/[facility] Co de Phone Number [facility] [address] [place] [address] * (ABNORMAL) POCT glucose meter (10/05/2024 9:09 AM EDT) [facility] POCT Glucose 130(H) 74 - 99 mg/dL 10/05/2024 9:12 AM EDT [facility] Comment:Accuracy of a glucos e result obtained from a capillary whole blood specimen relies upon adequate, non-compromised capillary blood flow. If the capillary glucose result is not consistent with the patient's clinical signs and symptoms, glucose testing should be repeated with either an arterial or venous sample on the glucometer or sent to the main labortory for testing. Comment 10/05/2024 9:12 AM EDT [facility] Cuff Setter Overlock ID Ricco Piper 10/05/2024 9:12 AM EDT [facility] Device ID [id number] 10/05/2024 9:12 AM EDT [facility]ALTH[facility] Specimen Type POC Capillary 10/05/2024 9:12 AM EDT [facility] Blood Capillary blood specimen / Unknown 10/05/2024 9:09 AM EDT 10/05/2024 9:12 AM EDT Leda Zeng MD LAB POIN T OF CARE TEST DOCKED DEVICE UNSOLICITED RESULTS Final Result [facility] [address] [place] [address] * POCT glucose meter (10/05/2024 7:47 AM EDT) [facility] POCT Glucose 89 74 - 99 mg/dL 10/05/2024 7:52 AM EDT [facility] Comment:Accuracy of a glucos e result obtained from a capillary whole blood specimen relies upon adequate, non-compromised capillary blood flow. If the capillary glucose result is not consistent with the patient's clinical signs and symptoms, glucose testing should be repeated with either an arterial or venous sample on the glucometer or sent to the main labortory for testing. Comment 10/05/2024 7:52 AM EDT [facility] Cuff Setter Overlock ID Ricco Piper 10/05/2024 7:52 AM EDT [facility] Device ID [id number] 10/05/2024 7:52 AM EDT [facility] Specimen Type POC Capillary 10/05/2024 7:52 AM EDT [facility] Blood Capillary blood specimen / Unknown 10/05/2024 7:47 AM EDT 10/05/2024 7:52 AM EDT Leda Zeng MD LAB POIN T OF CARE TEST DOCKED DEVICE UNSOLICITED RESULTS Final Result Performing Organization Address City/[facility]/ZIP Co de Phone Number [facility] [address] [place] [address] * (ABNORMAL) POCT glucose meter (10/04/2024 7:49 PM EDT) POCT Glucose 152(H) 74 - 99 mg/dL 10/04/2024 7:54 PM EDT [facility] Comment:Accuracy of a glucos e result obtained from a capillary whole blood specimen relies upon adequate, non-compromised capillary blood flow. If the capillary glucose result is not consistent with the patient's clinical signs and symptoms, glucose testing should be repeated with either an arterial or venous sample on the glucometer or sent to the main labortory for testing. Comment 10/04/2024 7:54 PM EDT [facility] Cuff Setter Overlock ID Grazyna Bhakta 025 7:54 PM EDT [facility] Device ID [id number] 10/04/2024 7:54 PM EDT [facility] Specimen Type POC Capillary 10/04/2024 7:54 PM EDT [facility] Blood Capillary blood specimen / Unknown 10/04/2024 7:49 PM EDT 10/04/2024 7:54 PM EDT Leda Zeng MD LAB POIN T OF CARE TEST DOCKED DEVICE UNSOLICITED RESULTS Final Result Performing Organization Address City/[facility]/ZIP Co de Phone Number [facility] [address] [place] [address] * (ABNORMAL) POCT glucose meter (10/04/2024 4:56 PM EDT) POCT Glucose 127(H) 74 - 99 mg/dL 10/04/2024 4:58 PM EDT [facility] Comment:Accuracy of a glucos e result obtained from a capillary whole blood specimen relies upon adequate, non-compromised capillary blood flow. If the capillary glucose result is not consistent with the patient's clinical signs and symptoms, glucose testing should be repeated with either an arterial or venous sample on the glucometer or sent to the main labortory for testing. Comment 10/04/2024 4:58 PM EDT [facility] Cuff Setter Overlock ID Precious Thomason 4:58 PM EDT [facility] Device ID [id number] 10/04/2024 4:58 PM EDT [facility] Specimen Type POC Capillary 10/04/2024 4:58 PM EDT [facility] Blood Capillary blood specimen / Unknown 10/04/2024 4:56 PM EDT 10/04/2024 4:58 PM EDT Leda Zeng MD LAB POIN T OF CARE TEST DOCKED DEVICE UNSOLICITED RESULTS Final Result Performing Organization Address City/State/[facility] Co de Phone Number [facility] [address] [place] [address] * (ABNORMAL) POCT glucose meter (10/04/2024 1:06 PM EDT) [facility] POCT Glucose 118(H) 74 - 99 mg/dL 10/04/2024 1:07 PM EDT [facility] Comment:Accuracy of a glucos e result obtained from a capillary whole blood specimen relies upon adequate, non-compromised capillary blood flow. If the capillary glucose result is not consistent with the patient's clinical signs and symptoms, glucose testing should be repeated with either an arterial or venous sample on the glucometer or sent to the main labortory for testing. Comment 10/04/2024 1:07 PM EDT [facility] Cuff Setter Overlock ID Precious Thomason 1:07 PM EDT [facility] Device ID [id number] 10/04/2024 1:07 PM EDT [facility] Specimen Type POC Capillary 10/04/2024 1:07 PM EDT [facility] Blood Capillary blood specimen / Unknown 10/04/2024 1:06 PM EDT 10/04/2024 1:07 PM EDT Leda Zeng MD LAB POIN T OF CARE TEST DOCKED DEVICE UNSOLICITED RESULTS Final Result Performing Organization Address [facility] de Phone Number [facility] [address] [place] [address] * (ABNORMAL) POCT glucose meter (10/04/2024 12:33 PM EDT) POCT Glucose 112(H) 74 - 99 mg/dL 10/04/2024 12:35 PM EDT [facility] Comment:Accuracy of a glucos e result obtained from a capillary whole blood specimen relies upon adequate, non-compromised capillary blood flow. If the capillary glucose result is not consistent with the patient's clinical signs and symptoms, glucose testing should be repeated with either an arterial or venous sample on the glucometer or sent to the main labortory for testing. Comment 10/04/2024 12:35 PM EDT [facility] Cuff Setter Overlock ID Nora Barillas 10/05/19 12:35 PM EDT [facility] Device ID [id number] 10/04/2024 12:35 PM EDT [facility] Specimen Type POC Venous 10/04/2024 12:35 PM EDT [facility] Blood Venous blood specimen / Unknown 10/04/2024 12:33 PM EDT 10/04/2024 12:35 PM EDT Leda Zeng MD LAB POIN T OF CARE TEST DOCKED DEVICE UNSOLICITED RESULTS Final Result Performing Organization Address [facility] de Phone Number [facility] [address] [place] [address] * POCT glucose meter (10/04/2024 7:36 AM EDT) POCT Glucose 98 74 - 99 mg/dL 10/04/2024 7:37 AM EDT [facility] Comment:Accuracy of a glucos e result obtained from a capillary whole blood specimen relies upon adequate, non-compromised capillary blood flow. If the capillary glucose result is not consistent with the patient's clinical signs and symptoms, glucose testing should be repeated with either an arterial or venous sample on the glucometer or sent to the main labortory for testing. Comment 10/04/2024 7:37 AM EDT [facility] Cuff Setter Overlock ID Precious Thomason 7:37 AM EDT [facility] Device ID [id number] 10/04/2024 7:37 AM EDT [facility] Specimen Type POC Capillary 10/04/2024 7:37 AM EDT [facility] Blood Capillary blood specimen / Unknown 10/04/2024 7:36 AM EDT 10/04/2024 7:37 AM EDT us Leda Zeng MD LAB POIN T OF CARE TEST DOCKED DEVICE UNSOLICITED RESULTS Final Result Performing Organization Address [facility] Co de Phone Number [facility] [address] [place] [address] * POCT glucose meter (10/04/2024 7:31 AM EDT) [facility] POCT Glucose 98 74 - 99 mg/dL 10/04/2024 7:33 AM EDT [facility] Comment:Accuracy of a glucos e result obtained from a capillary whole blood specimen relies upon adequate, non-compromised capillary blood flow. If the capillary glucose result is not consistent with the patient's clinical signs and symptoms, glucose testing should be repeated with either an arterial or venous sample on the glucometer or sent to the main labortory for testing. Comment 10/04/2024 7:33 AM EDT [facility] Cuff Setter Overlock ID Precious Thomason 7:33 AM EDT [facility] LAB Device ID [id number] 10/04/2024 7:33 AM EDT [facility] Specimen Type POC Capillary 10/04/2024 7:33 AM EDT [facility] Blood Capillary blood specimen / Unknown 10/04/2024 7:31 AM EDT 10/04/2024 7:33 AM EDT us Leda Zeng MD LAB POIN T OF CARE TEST DOCKED DEVICE UNSOLICITED RESULTS Final Result Performing Organization Address City/[facility] Co de Phone Number [facility] [address] [place] [address] * (ABNORMAL) POCT glucose meter (10/04/2024 6:42 AM EDT) POCT Glucose 100(H) 74 - 99 mg/dL 10/04/2024 6:46 AM EDT [facility] Comment:Accuracy of a glucos e result obtained from a capillary whole blood specimen relies upon adequate, non-compromised capillary blood flow. If the capillary glucose result is not consistent with the patient's clinical signs and symptoms, glucose testing should be repeated with either an arterial or venous sample on the glucometer or sent to the main labortory for testing. Comment 10/04/2024 6:46 AM EDT [facility] Cuff Setter Overlock ID Princess Elsa 025 6:46 AM EDT [facility] Device ID [id number] 10/04/2024 6:46 AM EDT [facility] Specimen Type POC Capillary 10/04/2024 6:46 AM EDT [facility] Blood Capillary blood specimen / Unknown 10/04/2024 6:42 AM EDT 10/04/2024 6:46 AM EDT us Leda Zeng MD LAB POIN T OF CARE TEST DOCKED DEVICE UNSOLICITED RESULTS Final Result Performing Organization Address [facility]/ZIP Co de Phone Number [facility] [address] [place] [address] * (ABNORMAL) Magnesium, Plasma (10/04/2024 4:20 AM EDT) Pathologist [facility] Magnesium, Plasma 1.7(L) 1.9 - 2.4 mg/dL 10/04/2024 5:08 AM EDT [facility] Blood Venous blood specimen / Unknown Venipuncture / Unknown 10/04/2024 4:20 AM EDT 10/04/2024 4:25 AM EDT us Leda Zeng MD LAB BLOOD ORDERA BLES Final Result Performing Organization Address City/[facility]/ZIP Co de Phone Number [facility] [address] [place] [address] * (ABNORMAL) Renal Function Panel, Plasma (10/04/2024 4:20 AM EDT) [facility] Glucose, Plasma 84 74 - 99 mg/dL 10/04/2024 5:08 AM EDT [facility] BUN, Plasma 31(H) 8 - 23 mg/dL 10/04/2024 5:08 AM EDT [facility] Creatinine, Plasma 6.91(H) 0.70 - 1.20 mg/dL 10/04/2024 5:08 AM EDT [facility] BUN/Creatinine Ratio 4 10/04/2024 5:08 AM EDT [facility] Sodium, Plasma 128(L) 136 - 145 mmol/L 10/04/2024 5:08 AM EDT [facility] Potassium, Plasma 3.8 3.6 - 4.9 mmol/L 10/04/2024 5:08 AM EDT [facility] Chloride, Plasma 94(L) 97 - 107 mmol/L 10/04/2024 5:08 AM EDT [facility] CO2, Plasma 24 22 - 29 mmol/L 10/04/2024 5:08 AM EDT [facility] Anion Gap 10 6 - 16 mmol/L 10/04/2024 5:08 AM EDT [facility] Total Calcium, Plasma 7.3(L) 8.9 - 10.2 mg/dL 10/04/2024 5:08 AM EDT [facility] Phosphorus, Plasma 3.5 2.5 - 4.5 mg/dL 10/04/2024 5:08 AM EDT [facility] Albumin, Plasma 3.2(L) 3.5 - 5.2 g/dL 10/04/2024 5:08 AM EDT [facility] eGFRcr 8.2 mL/min/1.7 3m*2 10/04/2024 5:08 AM EDT [facility] Comment:Reported eGFRcr in m L/min/1.73m2 is based the CKD-EPI 2020 equation that does not use a race coefficient. Blood Venous blood specimen / Unknown Venipuncture / Unknown 10/04/2024 4:20 AM EDT 10/04/2024 4:25 AM EDT us Leda Zeng MD LAB BLOOD ORDERA BLES Final Result [facility] [address] [place] [address] * (ABNORMAL) POCT glucose meter (10/03/2024 7:54 PM EDT) [facility] POCT Glucose 135(H) 74 - 99 mg/dL 10/03/2024 8:00 PM EDT [facility] Comment:Accuracy of a glucos e result obtained from a capillary whole blood specimen relies upon adequate, non-compromised capillary blood flow. If the capillary glucose result is not consistent with the patient's clinical signs and symptoms, glucose testing should be repeated with either an arterial or venous sample on the glucometer or sent to the main labortory for testing. Comment 10/03/2024 8:00 PM EDT [facility] Cuff Setter Overlock ID Princess Elsa 025 8:00 PM EDT [facility] Device ID [id number] 10/03/2024 8:00 PM EDT [facility] Specimen Type POC Capillary 10/03/2024 8:00 PM EDT [facility] Blood Capillary blood specimen / Unknown 10/03/2024 7:54 PM EDT 10/03/2024 8:00 PM EDT Leda Zeng MD LAB POIN T OF CARE TEST DOCKED DEVICE UNSOLICITED RESULTS Final Result Performing Organization Address [facility] de Phone Number [facility] [address] [place] [address] * (ABNORMAL) POCT glucose meter (10/03/2024 4:07 PM EDT) [facility] POCT Glucose 116(H) 74 - 99 mg/dL 10/03/2024 4:09 PM EDT [facility] Comment:Accuracy of a glucos e result obtained from a capillary whole blood specimen relies upon adequate, non-compromised capillary blood flow. If the capillary glucose result is not consistent with the patient's clinical signs and symptoms, glucose testing should be repeated with either an arterial or venous sample on the glucometer or sent to the main labortory for testing. Comment 10/03/2024 4:09 PM EDT [facility] Cuff Setter Overlock ID Precious Thomason 4:09 PM EDT [facility] Device ID [id number] 10/03/2024 4:09 PM EDT [facility] Specimen Type POC Capillary 10/03/2024 4:09 PM EDT [facility] Blood Capillary blood specimen / Unknown 10/03/2024 4:07 PM EDT 10/03/2024 4:09 PM EDT Leda Zeng MD LAB POIN T OF CARE TEST DOCKED DEVICE UNSOLICITED RESULTS Final Result Performing Organization Address City/[facility] Co de Phone Number [facility] [address] [place] [address] * (ABNORMAL) POCT glucose meter (10/03/2024 12:29 PM EDT) [facility] POCT Glucose 124(H) 74 - 99 mg/dL 10/03/2024 12:30 PM EDT [facility] Comment:Accuracy of a glucos e result obtained from a capillary whole blood specimen relies upon adequate, non-compromised capillary blood flow. If the capillary glucose result is not consistent with the patient's clinical signs and symptoms, glucose testing should be repeated with either an arterial or venous sample on the glucometer or sent to the main labortory for testing. Comment 10/03/2024 12:30 PM EDT [facility] Cuff Setter Overlock ID Precious Thomason 12:30 PM EDT [facility] Device ID [id number] 10/03/2024 12:30 PM EDT [facility] Specimen Type POC Capillary 10/03/2024 12:30 PM EDT [facility] Blood Capillary blood specimen / Unknown 10/03/2024 12:29 PM EDT 10/03/2024 12:30 PM EDT Leda Zeng MD LAB POIN T OF CARE TEST DOCKED DEVICE UNSOLICITED RESULTS Final Result Performing Organization Address City/[facility] Co de Phone Number [facility]ARE [facility] [address] [place] [address] * (ABNORMAL) POCT glucose meter (10/03/2024 8:12 AM EDT) POCT Glucose 110(H) 74 - 99 mg/dL 10/03/2024 8:14 AM EDT [facility] Comment:Accuracy of a glucos e result obtained from a capillary whole blood specimen relies upon adequate, non-compromised capillary blood flow. If the capillary glucose result is not consistent with the patient's clinical signs and symptoms, glucose testing should be repeated with either an arterial or venous sample on the glucometer or sent to the main labortory for testing. Comment 10/03/2024 8:14 AM EDT [facility] Cuff Setter Overlock ID Precious Thomason 8:14 AM EDT [facility] Device ID [id number] 10/03/2024 8:14 AM EDT [facility] Specimen Type POC Capillary 10/03/2024 8:14 AM EDT [facility] Blood Capillary blood specimen / Unknown 10/03/2024 8:12 AM EDT 10/03/2024 8:14 AM EDT Leda Zeng MD LAB POIN T OF CARE TEST DOCKED DEVICE UNSOLICITED RESULTS Final Result Performing Organization Address City/[facility] Co de Phone Number [facility] [address] [place] [address] * (ABNORMAL) Magnesium, Plasma (10/03/2024 3:21 AM EDT) [facility] Magnesium, Plasma 1.8(L) 1.9 - 2.4 mg/dL 10/03/2024 4:29 AM EDT [facility] Blood Venous blood specimen / Unknown Venipuncture / Unknown 10/03/2024 3:21 AM EDT 10/03/2024 4:00 AM EDT Leda Zeng MD LAB BLOOD ORDERA BLES Final Result Performing Organization Address City/[facility]/ZIP Co de Phone Number [facility] [address] [place] [address] * (ABNORMAL) Renal Function Panel, Plasma (10/03/2024 3:21 AM EDT) Glucose, Plasma 119(H) 74 - 99 mg/dL 10/03/2024 4:29 AM EDT [facility] BUN, Plasma 24(H) 8 - 23 mg/dL 10/03/2024 4:29 AM EDT [facility] Creatinine, Plasma 5.69(H) 0.70 - 1.20 mg/dL 10/03/2024 4:29 AM EDT [facility] BUN/Creatinine Ratio 4 10/03/2024 4:29 AM EDT [facility] Sodium, Plasma 131(L) 136 - 145 mmol/L 10/03/2024 4:29 AM EDT [facility] Potassium, Plasma 3.9 3.6 - 4.9 mmol/L 10/03/2024 4:29 AM EDT [facility] Chloride, Plasma 96(L) 97 - 107 mmol/L 10/03/2024 4:29 AM EDT [facility] CO2, Plasma 26 22 - 29 mmol/L 10/03/2024 4:29 AM EDT [facility] Anion Gap 9 6 - 16 mmol/L 10/03/2024 4:29 AM EDT [facility] Total Calcium, Plasma 7.2(L) 8.9 - 10.2 mg/dL 10/03/2024 4:29 AM EDT [facility] Phosphorus, Plasma 3.0 2.5 - 4.5 mg/dL 10/03/2024 4:29 AM EDT [facility] Albumin, Plasma 3.2(L) 3.5 - 5.2 g/dL 10/03/2024 4:29 AM EDT [facility] eGFRcr 10.3 mL/min/1.7 3m*2 10/03/2024 4:29 AM EDT [facility] Comment:Reported eGFRcr in m L/min/1.73m2 is based the CKD-EPI 2020 equation that does not use a race coefficient. Blood Venous blood specimen / Unknown Venipuncture / Unknown 10/03/2024 3:21 AM EDT 10/03/2024 4:00 AM EDT us Leda Zeng MD LAB BLOOD ORDERA BLES Final Result [facility] [address] [place] [address] * (ABNORMAL) POCT glucose meter (10/02/2024 9:06 PM EDT) [facility] POCT Glucose 143(H) 74 - 99 mg/dL 10/02/2024 9:08 PM EDT [facility] Comment:Accuracy of a glucos e result obtained from a capillary whole blood specimen relies upon adequate, non-compromised capillary blood flow. If the capillary glucose result is not consistent with the patient's clinical signs and symptoms, glucose testing should be repeated with either an arterial or venous sample on the glucometer or sent to the main labortory for testing. Comment 10/02/2024 9:08 PM EDT [facility] Cuff Setter Overlock ID Ashia Daniels 10/03/19 9:08 PM EDT [facility]ARE LAB Device ID [id number] 10/02/2024 9:08 PM EDT [facility] Specimen Type POC Capillary 10/02/2024 9:08 PM EDT [facility] Blood Capillary blood specimen / Unknown 10/02/2024 9:06 PM EDT 10/02/2024 9:08 PM EDT Leda Zeng MD LAB POIN T OF CARE TEST DOCKED DEVICE UNSOLICITED RESULTS Final Result Performing Organization Address City/State/[facility] Co de Phone Number [facility] [address] [place] [address] * (ABNORMAL) POCT glucose meter (10/02/2024 4:43 PM EDT) [facility] POCT Glucose 172(H) 74 - 99 mg/dL 10/02/2024 4:45 PM EDT [facility] Comment:Accuracy of a glucos e result obtained from a capillary whole blood specimen relies upon adequate, non-compromised capillary blood flow. If the capillary glucose result is not consistent with the patient's clinical signs and symptoms, glucose testing should be repeated with either an arterial or venous sample on the glucometer or sent to the main labortory for testing. Comment 10/02/2024 4:45 PM EDT [facility] Cuff Setter Overlock ID Viridiana Pichardo 4:45 PM EDT [facility] Device ID [id number] 10/02/2024 4:45 PM EDT [facility] Specimen Type POC Capillary 10/02/2024 4:45 PM EDT [facility] Blood Capillary blood specimen / Unknown 10/02/2024 4:43 PM EDT 10/02/2024 4:45 PM EDT Leda Zeng MD LAB POIN T OF CARE TEST DOCKED DEVICE UNSOLICITED RESULTS Final Result Performing Organization Address City/[facility]/ZIP Co de Phone Number [facility] [address] [place] [address] * (ABNORMAL) POCT glucose meter (10/02/2024 11:55 AM EDT) POCT Glucose 108(H) 74 - 99 mg/dL 10/02/2024 11:56 AM EDT [facility] Comment:Accuracy of a glucos e result obtained from a capillary whole blood specimen relies upon adequate, non-compromised capillary blood flow. If the capillary glucose result is not consistent with the patient's clinical signs and symptoms, glucose testing should be repeated with either an arterial or venous sample on the glucometer or sent to the main labortory for testing. Comment 10/02/2024 11:56 AM EDT [facility] Cuff Setter Overlock ID Viridiana Pichardo 11:56 AM EDT [facility] Device ID [id number] 10/02/2024 11:56 AM EDT [facility] Specimen Type POC Capillary 10/02/2024 11:56 AM EDT [facility] Blood Capillary blood specimen / Unknown 10/02/2024 11:55 AM EDT 10/02/2024 11:56 AM EDT Leda Zeng MD LAB POIN T OF CARE TEST DOCKED DEVICE UNSOLICITED RESULTS Final Result Performing Organization Address City/[facility]/ZIP Co de Phone Number [facility] [address] [place] [address] * PTH, intact (10/02/2024 9:58 AM EDT) Pathologist [facility] PTH Intact Total 9 9 - 77 pg/mL 10/02/2024 2:50 PM EDT [facility] Blood Venous blood specimen / Unknown Venipuncture / Unknown 10/02/2024 9:58 AM EDT 10/02/2024 11:19 AM EDT Narrative [facility] - 10/02/2024 2:50 PM EDT Assay performed by immunoassay at the [facility]. Performed on [employer]isher Tester chemiluminescent immunoassay, tractable to the World Health Organization's first international standard for PTH from the [facility], Code 79/500. Results obtained from different test methods or kits cannot be used interchangeably. Leda Zeng MD LAB BLOOD ORDERA BLES Final Result Performing Organization Address [facility] Co de Phone Number [facility] [address] [place] [address] * Hepatitis C Virus (HCV) Quantitative PCR (10/02/2024 7:51 AM EDT) Pathologist [facility] Hepatitis C Virus (HCV) Quantitative Interpretation Not Detected Not Detected. 10/04/2024 2:37 PM EDT [facility] Blood Venous blood specimen / Unknown Venipuncture / Unknown 10/02/2024 7:51 AM EDT 10/02/2024 8:36 AM EDT Narrative [facility] - 10/04/2024 2:37 PM EDT The [employer] M2000 HCV test is a Real Time in vitro nucleic acid amplification test for the quantitation of Hepatitis C Viral (HCV) RNA in human serum in HCV-infected individuals. It is intended for use as an aid in the management of HCV-infected individuals undergoing anti-viral therapy. The dynamic range for this test is log10 = 1.08 to 8.00 and/or 12 to 100,000,000 IU/mL. The limit of detection (LOD) for this assay is 12 IU/mL and the limit of quantitation (LOQ) is 12 IU/mL. This assay is FDA approved for clinical use. Daphne Landry MEDICAL ADMINISTRATIVE TECHNICIAN, DNP LAB BLOOD ORDERABLES Selene l Result Performing Organization Address City/[facility]/ZIP Co de Phone Number [facility] [address] [place] [address] * (ABNORMAL) Hepatitis panel, acute (10/02/2024 7:51 AM EDT) Pathologist [facility] Hepatitis B Surf Antigen Negative Negative 10/02/2024 3:10 PM EDT [facility] Hepatitis C Antibody Positive(A) Negative 10/02/2024 3:10 PM EDT [facility] Comment:This specimen is jamey ng sent for confirmation by RT-PCR. Hepatitis A Antibody IgM Negative Negative 10/02/2024 3:10 PM EDT [facility] Hepatitis B Core Antibody IgM Negative Negative 10/02/2024 3:10 PM EDT [facility] Blood Venous blood specimen / Unknown Venipuncture / Unknown 10/02/2024 7:51 AM EDT 10/02/2024 8:36 AM EDT us Daphne Talbott MEDICAL ADMINISTRATIVE TECHNICIAN, DNP LAB BLOOD ORDERABLES Selene l Result Performing Organization Address [facility] Co de Phone Number [facility] [address] [place] [address] * (ABNORMAL) Hepatitis B Surface Antibody, Quantitative (10/02/2024 7:51 AM EDT) [facility] Hepatitis B Surface Antibody, Quantitative 62.12(H) NonReacti ve: <8, Grayzone: 8 - <12, Reactive: >= 12 mIU/mL 10/02/2024 12:27 PM EDT [facility] Comment: Reactive. Individual is considered immune to HBV infection. Blood Venous blood specimen / Unknown Venipuncture / Unknown 10/02/2024 7:51 AM EDT 10/02/2024 8:35 AM EDT us Daphne L Rust MEDICAL ADMINISTRATIVE TECHNICIAN, DNP LAB BLOOD ORDERABLES Selene l Result Performing Organization Address [facility] Co de Phone Number [facility] [address] [place] [address] * Vitamin D 25 Hydroxy (10/02/2024 5:36 AM EDT) [facility] Vitamin D 25 Hydroxy 33.5 20.0 - 80.0 ng/mL 10/02/2024 9:56 AM EDT [facility] Blood Venous blood specimen / Unknown Venipuncture / Unknown 10/02/2024 5:36 AM EDT 10/02/2024 5:42 AM EDT Narrative [facility] - 10/02/2024 9:56 AM EDT Testing performed on [employer] Tester, standardized against NIST SRM 2972. When testing samples from patients whose predominant form of vitamin D is vitamin D2, such as patients receiving vitamin D2 supplementation, results that are subtherapeutic should be confirmed with another method, such as LC-MS/MS, before being used for patient management. Vitamin D, 25-Hydroxy reference range, age 18 years and up: Deficiency: <12 ng/mL Insufficiency: 12 to 19 ng/mL Sufficiency: 20 to 80 ng/mL Possible toxicity: >100 ng/mL Lala Valdes APRN LAB BLOOD ORDERABLES Final Re sult Performing Organization Address [facility] Co de Phone Number [facility] [address] [place] [address] * Magnesium, Plasma (10/02/2024 5:36 AM EDT) Magnesium, Plasma 2.0 1.9 - 2.4 mg/dL 10/02/2024 6:06 AM EDT [facility] Blood Venous blood specimen / Unknown Venipuncture / Unknown 10/02/2024 5:36 AM EDT 10/02/2024 5:42 AM EDT Lala Valdes MEDICAL ADMINISTRATIVE TECHNICIAN LAB BLOOD ORDERABLES Final Re sult [facility] [address] [place] [address] * (ABNORMAL) Ferritin, Serum (10/02/2024 5:36 AM EDT) Ferritin, Serum 1,701(H) 20 - 400 ng/mL 10/02/2024 8:36 AM EDT [facility] Blood Venous blood specimen / Unknown Venipuncture / Unknown 10/02/2024 5:36 AM EDT 10/02/2024 5:42 AM EDT us Lala Valdes MEDICAL ADMINISTRATIVE TECHNICIAN LAB BLOOD ORDERABLES Final Re sult [facility] [address] [place] [address] * (ABNORMAL) Renal Function Panel, Plasma (10/02/2024 5:36 AM EDT) Glucose, Plasma 95 74 - 99 mg/dL 10/02/2024 6:06 AM EDT [facility] BUN, Plasma 37(H) 8 - 23 mg/dL 10/02/2024 6:06 AM EDT [facility] Creatinine, Plasma 8.81(H) 0.70 - 1.20 mg/dL 10/02/2024 6:06 AM EDT [facility] BUN/Creatinine Ratio 4 10/02/2024 6:06 AM EDT [facility] Sodium, Plasma 132(L) 136 - 145 mmol/L 10/02/2024 6:06 AM EDT [facility] Potassium, Plasma 3.8 3.6 - 4.9 mmol/L 10/02/2024 6:06 AM EDT [facility] Chloride, Plasma 94(L) 97 - 107 mmol/L 10/02/2024 6:06 AM EDT [facility] CO2, Plasma 26 22 - 29 mmol/L 10/02/2024 6:06 AM EDT [facility] Anion Gap 12 6 - 16 mmol/L 10/02/2024 6:06 AM EDT [facility] Total Calcium, Plasma 7.4(L) 8.9 - 10.2 mg/dL 10/02/2024 6:06 AM EDT [facility] Phosphorus, Plasma 3.9 2.5 - 4.5 mg/dL 10/02/2024 6:06 AM EDT [facility] Albumin, Plasma 3.3(L) 3.5 - 5.2 g/dL 10/02/2024 6:06 AM EDT [facility] eGFRcr 6.1 mL/min/1.7 3m*2 10/02/2024 6:06 AM EDT [facility] Comment:Reported eGFRcr in m L/min/1.73m2 is based the CKD-EPI 2020 equation that does not use a race coefficient. Blood Venous blood specimen / Unknown Venipuncture / Unknown 10/02/2024 5:36 AM EDT 10/02/2024 5:42 AM EDT Lala Valdes MEDICAL ADMINISTRATIVE TECHNICIAN LAB BLOOD ORDERABLES Final Re sult [facility] [address] [place] [address] * (ABNORMAL) CBC and Differential (10/02/2024 5:36 AM EDT) Pathologist [facility] WBC Count 7.44 3.70 - 10.30 10*3/uL LAB HEMATOLOGY METHOD 10/02/2024 5:44 AM EDT [facility] RBC Count 3.30(L) 4.60 - 6.10 10*6/uL LAB HEMATOLOGY METHOD 10/02/2024 5:44 AM EDT [facility] HGB 10.4(L) 13.7 - 17.5 g/dL LAB HEMATOLOGY METHOD 10/02/2024 5:44 AM EDT [facility] HCT 29.8(L) 40.0 - 51.0 % LAB HEMATOLOGY METHOD 10/02/2024 5:44 AM EDT [facility] Platelet Count 119(L) 155 - 369 10*3/uL LAB HEMATOLOGY METHOD 10/02/2024 5:44 AM EDT [facility] MCV 90 79 - 98 fL LAB HEMATOLOGY METHOD 10/02/2024 5:44 AM EDT [facility] MCH 31.5 26.0 - 32.0 pg LAB HEMATOLOGY METHOD 10/02/2024 5:44 AM EDT [facility] MCHC 34.9 30.7 - 35.5 g/dL LAB HEMATOLOGY METHOD 10/02/2024 5:44 AM EDT [facility] RDW 12.5 11.5 - 14.5 % LAB HEMATOLOGY METHOD 10/02/2024 5:44 AM EDT [facility] MPV 9.5 8.8 - 12.5 fL LAB HEMATOLOGY METHOD 10/02/2024 5:44 AM EDT [facility] nRBC 0.0 <=0.0 per 100 WBCs LAB HEMATOLOGY METHOD 10/02/2024 5:44 AM EDT [facility] Differential Type Automated LAB HEMATOLOGY METHOD 10/02/2024 5:44 AM EDT [facility] Neutrophils % 59 % LAB HEMATOLOGY METHOD 10/02/2024 5:44 AM EDT [facility] Lymphocytes % 28 % LAB HEMATOLOGY METHOD 10/02/2024 5:44 AM EDT [facility] Monocytes % 7 % LAB HEMATOLOGY METHOD 10/02/2024 5:44 AM EDT [facility] Eosinophils % 4 % LAB HEMATOLOGY METHOD 10/02/2024 5:44 AM EDT [facility] Basophils % 1 % LAB HEMATOLOGY METHOD 10/02/2024 5:44 AM EDT [facility] Immature Granulocytes % 1 % LAB HEMATOLOGY METHOD 10/02/2024 5:44 AM EDT [facility] Neutrophils Absolute 4.44 1.60 - 6.10 10*3/uL LAB HEMATOLOGY METHOD 10/02/2024 5:44 AM EDT [facility] Lymphocytes Absolute 2.10 1.20 - 3.90 10*3/uL LAB HEMATOLOGY METHOD 10/02/2024 5:44 AM EDT [facility] Monocytes Absolute 0.53 0.30 - 0.90 10*3/uL LAB HEMATOLOGY METHOD 10/02/2024 5:44 AM EDT [facility] Eosinophils Absolute 0.26 0.00 - 0.50 10*3/uL LAB HEMATOLOGY METHOD 10/02/2024 5:44 AM EDT [facility] Basophils Absolute 0.06 0.00 - 0.10 10*3/uL LAB HEMATOLOGY METHOD 10/02/2024 5:44 AM EDT [facility] Immature Granulocytes Absolute 0.05 0.00 - 0.06 10*3/uL LAB HEMATOLOGY METHOD 10/02/2024 5:44 AM EDT [facility] Blood Venous blood specimen / Unknown Venipuncture / Unknown 10/02/2024 5:36 AM EDT 10/02/2024 5:42 AM EDT Narrative [facility] - 10/02/2024 5:44 AM EDT Therapeutic decision making should be based on absolute values, rather than percentages. us Lala Valdes APRN LAB BLOOD ORDERABLES Final Re sult [facility] [address] [place] [address] * Multi Drug Resistance Test (10/01/2024 9:04 PM EDT) [facility] Culture No growth at day 1 10/03/2024 5:35 AM EDT [facility] Swab (Nares and Sydni Rectal) Non-blood Collection / Unknown 10/01/2024 9:04 PM EDT 10/01/2024 9:46 PM EDT Narrative [facility] - 10/03/2024 5:35 AM EDT This test was developed and its performance characteristics determined by the [facility]. Although the media is FDA-approved, it is not FDA-approved for all specimen types submitted. The FDA has determined that such clearance or approval is not necessary. This test is used for surveillance purposes. It should not be regarded as investigational or for research. The [facility] is certified under the Clinical Laboratory Improvement Amendments of 1988 (CLIA-88) as qualified to perform high complexity clinical laboratory testing. Lala Valdes APRN LAB MICROBIOLOGY - GENERAL OR DERABLES Final Result [facility] [address] [place] [address] * (ABNORMAL) POCT glucose meter (10/01/2024 8:38 PM EDT) [facility] POCT Glucose 151(H) 74 - 99 mg/dL 10/01/2024 8:39 PM EDT [facility] Comment:Accuracy of a glucos e result obtained from a capillary whole blood specimen relies upon adequate, non-compromised capillary blood flow. If the capillary glucose result is not consistent with the patient's clinical signs and symptoms, glucose testing should be repeated with either an arterial or venous sample on the glucometer or sent to the main labortory for testing. Comment 10/01/2024 8:39 PM EDT [facility] Cuff Setter Overlock ID [email or web address] [email or web address] 10/02/19 8:39 PM EDT [facility] Device ID [id number] 10/01/2024 8:39 PM EDT [facility] Specimen Type POC Capillary 10/01/2024 8:39 PM EDT [facility] Blood Capillary blood specimen / Unknown 10/01/2024 8:38 PM EDT 10/01/2024 8:39 PM EDT us Leda Zeng MD LAB POIN T OF CARE TEST DOCKED DEVICE UNSOLICITED RESULTS Final Result Performing Organization Address [facility] de Phone Number [facility] [address] [place] [address] * (ABNORMAL) POCT glucose meter (10/01/2024 4:02 PM EDT) POCT Glucose 127(H) 74 - 99 mg/dL 10/01/2024 4:04 PM EDT [facility] Comment:Accuracy of a glucos e result obtained from a capillary whole blood specimen relies upon adequate, non-compromised capillary blood flow. If the capillary glucose result is not consistent with the patient's clinical signs and symptoms, glucose testing should be repeated with either an arterial or venous sample on the glucometer or sent to the main labortory for testing. Comment 10/01/2024 4:04 PM EDT [facility] Cuff Setter Overlock ID Precious Thomason 4:04 PM EDT [facility] Device ID [id number] 10/01/2024 4:04 PM EDT [facility] Specimen Type POC Capillary 10/01/2024 4:04 PM EDT [facility] Blood Capillary blood specimen / Unknown 10/01/2024 4:02 PM EDT 10/01/2024 4:04 PM EDT Tana Wooten MD LAB POINT OF CA RE TEST DOCKED DEVICE UNSOLICITED RESULTS Final Result Performing Organization Address [facility] de Phone Number [facility] [address] [place] [address] * (ABNORMAL) POCT glucose meter (10/01/2024 12:21 PM EDT) Pathologist [facility] POCT Glucose 142(H) 74 - 99 mg/dL 10/01/2024 12:22 PM EDT [facility] Comment:Accuracy of a glucos e result obtained from a capillary whole blood specimen relies upon adequate, non-compromised capillary blood flow. If the capillary glucose result is not consistent with the patient's clinical signs and symptoms, glucose testing should be repeated with either an arterial or venous sample on the glucometer or sent to the main labortory for testing. Comment 10/01/2024 12:22 PM EDT [facility] Cuff Setter Overlock ID Precious Thomason 12:22 PM EDT [facility] Device ID [id number] 10/01/2024 12:22 PM EDT [facility] Specimen Type POC Capillary 10/01/2024 12:22 PM EDT [facility] Blood Capillary blood specimen / Unknown 10/01/2024 12:21 PM EDT 10/01/2024 12:22 PM EDT us Tana Wooten MD LAB POINT OF CA RE TEST DOCKED DEVICE UNSOLICITED RESULTS Final Result [facility] [address] [place] [address] * (ABNORMAL) POCT glucose meter (10/01/2024 8:29 AM EDT) [facility] POCT Glucose 100(H) 74 - 99 mg/dL 10/01/2024 8:30 AM EDT [facility] Comment:Accuracy of a glucos e result obtained from a capillary whole blood specimen relies upon adequate, non-compromised capillary blood flow. If the capillary glucose result is not consistent with the patient's clinical signs and symptoms, glucose testing should be repeated with either an arterial or venous sample on the glucometer or sent to the main labortory for testing. Comment 10/01/2024 8:30 AM EDT [facility] Cuff Setter Overlock ID Precious Thomason 8:30 AM EDT [facility] Device ID [id number] 10/01/2024 8:30 AM EDT [facility] Specimen Type POC Capillary 10/01/2024 8:30 AM EDT [facility] Blood Capillary blood specimen / Unknown 10/01/2024 8:29 AM EDT 10/01/2024 8:30 AM EDT us Tana Wooten MD LAB POINT OF CA RE TEST DOCKED DEVICE UNSOLICITED RESULTS Final Result Performing Organization Address City/[facility]/ZIP Co de Phone Number [facility] [address] [place] [address] * (ABNORMAL) POCT glucose meter (09/30/2024 8:49 PM EDT) [facility] POCT Glucose 138(H) 74 - 99 mg/dL 09/30/2024 8:50 PM EDT [facility] Comment:Accuracy of a glucos e result obtained from a capillary whole blood specimen relies upon adequate, non-compromised capillary blood flow. If the capillary glucose result is not consistent with the patient's clinical signs and symptoms, glucose testing should be repeated with either an arterial or venous sample on the glucometer or sent to the main labortory for testing. Comment 09/30/2024 8:50 PM EDT [facility] Cuff Setter Overlock ID Ashia Daniels 10/01/19 8:50 PM EDT [facility] Device ID [id number] 09/30/2024 8:50 PM EDT [facility] Specimen Type POC Capillary 09/30/2024 8:50 PM EDT [facility] Blood Capillary blood specimen / Unknown 09/30/2024 8:49 PM EDT 09/30/2024 8:50 PM EDT Tana Wooten MD LAB POINT OF CA RE TEST DOCKED DEVICE UNSOLICITED RESULTS Final Result Performing Organization Address City/[facility] Co de Phone Number [facility] [address] [place] [address] * (ABNORMAL) Hemoglobin A1c (09/30/2024 4:50 PM EDT) [facility] Hemoglobin A1c 6.3(H) <5.7 % 10/01/2024 12:06 PM EDT [facility] Blood Venous blood specimen / Unknown Venipuncture / Unknown 09/30/2024 4:50 PM EDT 09/30/2024 4:54 PM EDT Narrative [facility] - 10/01/2024 12:06 PM EDT HA1C Interpretive Data: Diagnosis of Diabetes: Diabetic > or = 6.5% Pre-diabetic 5.7 to 6.4% Non-diabetic < or = 5.6% Glycemic Targets for Type I and Type II Diabetics: Non- Adults <7.0% Adults <6.0% Children and Adolescents <7.5% Source: [place] [employer]. Standards of medical care in diabetes,2017. Diabetes Care.2017:40 (suppl 1):S1-S135. Lala Valdes APRN LAB BLOOD ORDERABLES Final Re sult Performing Organization Address [facility] de Phone Number [facility] [address] [place] [address] * (ABNORMAL) Iron & Total Iron Binding Capacity, Plasma (Includes Transferrin) (09/30/2024 4:50 PM EDT) Iron, Plasma 66 50 - 170 ug/dL 09/30/2024 11:58 PM EDT [facility] Transferrin, Plasma 117(L) 200 - 360 mg/dL 09/30/2024 11:58 PM EDT [facility] Total Iron Binding Capacity, Plasma 146(L) 240 - 450 ug/mL 09/30/2024 11:58 PM EDT [facility] Transferrin Saturation 45 14 - 50 % 09/30/2024 11:58 PM EDT [facility] Blood Venous blood specimen / Unknown Venipuncture / Unknown 09/30/2024 4:50 PM EDT 09/30/2024 4:53 PM EDT Lala Valdes APRN LAB BLOOD ORDERABLES Final Re sult Performing Organization Address [facility] de Phone Number [facility] [address] [place] [address] * TSH Reflex FT4 (09/30/2024 4:50 PM EDT) Thyroid Stimulating Hormone, Plasma 0.91 0.40 - 4.20 uIU/mL 09/30/2024 9:27 PM EDT [facility] Blood Venous blood specimen / Unknown Venipuncture / Unknown 09/30/2024 4:50 PM EDT 09/30/2024 4:53 PM EDT Lala Valdes APRN LAB BLOOD ORDERABLES Final Re sult Performing Organization Address [facility] Co de Phone Number [facility] [address] [place] [address] * (ABNORMAL) C-Reactive protein (09/30/2024 4:50 PM EDT) CRP, Plasma 16.1(H) <=8.0 mg/L 09/30/2024 5:14 PM EDT [facility] Blood Venous blood specimen / Unknown Venipuncture / Unknown 09/30/2024 4:50 PM EDT 09/30/2024 4:53 PM EDT Narrative [facility] - 09/30/2024 5:14 PM EDT This CRP test is appropriate for assessment of infection, systemic inflammation and/or tissue injury. To assess cardiovascular disease risk order high sensitivity CRP (CRPH). Lesvia Adrian MD LAB BLOOD ORDERABLES Final Re sult Performing Organization Address [facility] Co de Phone Number [facility] [address] [place] [address] * Phosphorus (09/30/2024 4:50 PM EDT) Phosphorus, Plasma 3.3 2.5 - 4.5 mg/dL 09/30/2024 5:14 PM EDT [facility] Blood Venous blood specimen / Unknown Venipuncture / Unknown 09/30/2024 4:50 PM EDT 09/30/2024 4:53 PM EDT Lesvia Adrian MD LAB BLOOD ORDERABLES Final Re sult Performing Organization Address City/[facility] Co de Phone Number [facility] [address] [place] [address] * (ABNORMAL) Magnesium (09/30/2024 4:50 PM EDT) Magnesium, Plasma 1.7(L) 1.9 - 2.4 mg/dL 09/30/2024 5:14 PM EDT [facility] Blood Venous blood specimen / Unknown Venipuncture / Unknown 09/30/2024 4:50 PM EDT 09/30/2024 4:53 PM EDT us Lesvia Adrian MD LAB BLOOD ORDERABLES Final Re sult [facility] [address] [place] [address] * (ABNORMAL) CMP (09/30/2024 4:50 PM EDT) Glucose, Plasma 185(H) 74 - 99 mg/dL 09/30/2024 5:14 PM EDT [facility] BUN, Plasma 29(H) 8 - 23 mg/dL 09/30/2024 5:14 PM EDT [facility] Creatinine, Plasma 7.58(H) 0.70 - 1.20 mg/dL 09/30/2024 5:14 PM EDT [facility] BUN/Creatinine Ratio 4 09/30/2024 5:14 PM EDT [facility] Sodium, Plasma 131(L) 136 - 145 mmol/L 09/30/2024 5:14 PM EDT [facility] Potassium, Plasma 3.0(L) 3.6 - 4.9 mmol/L 09/30/2024 5:14 PM EDT [facility] Chloride, Plasma 90(L) 97 - 107 mmol/L 09/30/2024 5:14 PM EDT [facility] CO2, Plasma 28 22 - 29 mmol/L 09/30/2024 5:14 PM EDT [facility] Anion Gap 13 6 - 16 mmol/L 09/30/2024 5:14 PM EDT [facility] Total Calcium, Plasma 7.6(L) 8.9 - 10.2 mg/dL 09/30/2024 5:14 PM EDT [facility] Total Protein 7.2 6.3 - 7.9 g/dL 09/30/2024 5:14 PM EDT [facility] Albumin, Plasma 3.7 3.5 - 5.2 g/dL 09/30/2024 5:14 PM EDT [facility] AST, Plasma 13 10 - 50 U/L 09/30/2024 5:14 PM EDT [facility] ALT, Plasma 6(L) 10 - 50 U/L 09/30/2024 5:14 PM EDT [facility] Alkaline Phosphatase, Plasma 42 40 - 115 U/L 09/30/2024 5:14 PM EDT [facility] Total Bilirubin, Plasma 0.6 0.2 - 1.1 mg/dL 09/30/2024 5:14 PM EDT [facility] eGFRcr 7.3 mL/min/1.7 3m*2 09/30/2024 5:14 PM EDT [facility] Comment:Reported eGFRcr in m L/min/1.73m2 is based the CKD-EPI 2020 equation that does not use a race coefficient. Blood Venous blood specimen / Unknown Venipuncture / Unknown 09/30/2024 4:50 PM EDT 09/30/2024 4:53 PM EDT us Lesvia Adrian MD LAB BLOOD ORDERABLES Final Re sult [facility] [address] [place] [address] * (ABNORMAL) CBC w/diff (09/30/2024 4:50 PM EDT) WBC Count 8.92 3.70 - 10.30 10*3/uL LAB HEMATOLOGY METHOD 09/30/2024 4:56 PM EDT [facility] RBC Count 3.29(L) 4.60 - 6.10 10*6/uL LAB HEMATOLOGY METHOD 09/30/2024 4:56 PM EDT [facility] HGB 10.4(L) 13.7 - 17.5 g/dL LAB HEMATOLOGY METHOD 09/30/2024 4:56 PM EDT [facility] HCT 29.8(L) 40.0 - 51.0 % LAB HEMATOLOGY METHOD 09/30/2024 4:56 PM EDT [facility] Platelet Count 121(L) 155 - 369 10*3/uL LAB HEMATOLOGY METHOD 09/30/2024 4:56 PM EDT [facility] MCV 91 79 - 98 fL LAB HEMATOLOGY METHOD 09/30/2024 4:56 PM EDT [facility] MCH 31.6 26.0 - 32.0 pg LAB HEMATOLOGY METHOD 09/30/2024 4:56 PM EDT [facility] MCHC 34.9 30.7 - 35.5 g/dL LAB HEMATOLOGY METHOD 09/30/2024 4:56 PM EDT [facility] RDW 12.5 11.5 - 14.5 % LAB HEMATOLOGY METHOD 09/30/2024 4:56 PM EDT [facility] MPV 9.6 8.8 - 12.5 fL LAB HEMATOLOGY METHOD 09/30/2024 4:56 PM EDT [facility] nRBC 0.0 <=0.0 per 100 WBCs LAB HEMATOLOGY METHOD 09/30/2024 4:56 PM EDT [facility] Differential Type Automated LAB HEMATOLOGY METHOD 09/30/2024 4:56 PM EDT [facility] Neutrophils % 61 % LAB HEMATOLOGY METHOD 09/30/2024 4:56 PM EDT [facility] Lymphocytes % 27 % LAB HEMATOLOGY METHOD 09/30/2024 4:56 PM EDT [facility] Monocytes % 8 % LAB HEMATOLOGY METHOD 09/30/2024 4:56 PM EDT [facility] Eosinophils % 3 % LAB HEMATOLOGY METHOD 09/30/2024 4:56 PM EDT [facility] Basophils % 1 % LAB HEMATOLOGY METHOD 09/30/2024 4:56 PM EDT [facility] Immature Granulocytes % 0 % LAB HEMATOLOGY METHOD 09/30/2024 4:56 PM EDT [facility] Neutrophils Absolute 5.48 1.60 - 6.10 10*3/uL LAB HEMATOLOGY METHOD 09/30/2024 4:56 PM EDT [facility] Lymphocytes Absolute 2.36 1.20 - 3.90 10*3/uL LAB HEMATOLOGY METHOD 09/30/2024 4:56 PM EDT [facility] Monocytes Absolute 0.69 0.30 - 0.90 10*3/uL LAB HEMATOLOGY METHOD 09/30/2024 4:56 PM EDT [facility] Eosinophils Absolute 0.28 0.00 - 0.50 10*3/uL LAB HEMATOLOGY METHOD 09/30/2024 4:56 PM EDT [facility] Basophils Absolute 0.07 0.00 - 0.10 10*3/uL LAB HEMATOLOGY METHOD 09/30/2024 4:56 PM EDT [facility] Immature Granulocytes Absolute 0.04 0.00 - 0.06 10*3/uL LAB HEMATOLOGY METHOD 09/30/2024 4:56 PM EDT [facility] Blood Venous blood specimen / Unknown Venipuncture / Unknown 09/30/2024 4:50 PM EDT 09/30/2024 4:54 PM EDT Narrative [facility] - 09/30/2024 4:56 PM EDT Therapeutic decision making should be based on absolute values, rather than percentages. Lesvia Adrian MD LAB BLOOD ORDERABLES Final Re sult [facility] [address] [place] [address] * EKG now - STAT (adult) (09/30/2024 4:09 PM EDT) EKG DIAGNOSIS CLASS Abnormal MUSE ECG Ventricular Rate 70 BPM MUSE ECG Atrial Rate 70 BPM MUSE ECG VT Interval 154 ms MUSE ECG QRSD Interval 106 ms MUSE ECG QT Interval 430 ms MUSE ECG QTC Interval 464 ms MUSE ECG P [place] 69 degrees MUSE ECG R [place] -23 degrees MUSE ECG T Wave [place] 5 degrees MUSE ECG Diagnosis Normal sinus rhythm MUSE ECG Diagnosis Nonspecific T wave abnormality MUSE ECG Diagnosis Abnormal ECG MUSE ECG Diagnosis MUSE ECG Diagnosis Confirmed by Sb Cole ([id number]) on 09/30/2024 5:32:21 PM MUSE ECG 09/30/2024 4:09 PM EDT 09/30/2024 5:32 PM EDT Lesvia Adrian MD ECG ORDERABLES Final Result MUSE ECG documented in this encounter Visit Diagnoses Diagnosis Declining functional status- Primary ESRD (end stage renal disease) ([facility]/HCC) End stage renal disease Noncompliance by refusing service ESRD (end stage renal disease) on dialysis ([facility]/HCC) End stage renal disease Declining functional status At high risk for falls ESRD (end stage renal disease) on dialysis (CMS/HCC) End stage renal disease Electrolyte and fluid disorder Electrolyte and fluid disorders not elsewhere classified Chronic kidney disease-mineral and bone disorder (CKD-MBD) Anemia in chronic kidney disease (CODE) 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) Dementia (CMS/HCC) Other persistent mental disorders due to conditions classified elsewhere Mild intellectual disabilities Anxiety and depression Insomnia, unspecified Essential (primary) hypertension Unspecified essential hypertension Arterial insufficiency (CMS/HCC) Stricture of artery Mixed hyperlipidemia 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 Gastroesophageal reflux disease without esophagitis Esophageal reflux Sensorineural hearing loss, bilateral Wears hearing aid in both ears Chronic combined systolic (congestive) and diastolic (congestive) heart failure (CMS/HCC) Chronic hepatitis C without hepatic coma (CMS/HCC) History of transmetatarsal amputation of foot (CMS/HCC) ESRD (end stage renal disease) (CMS/HCC) End stage renal disease documented in this encounter Admitting Diagnoses Diagnosis ESRD (end stage renal disease) (CMS/HCC) End stage renal disease documented in this encounter Administered Medications Inactive Administered Medications - up to 3 most recent administrations Medication Order MAR Action Action Date Dose Rate Site acetaminophen (Tylenol) tablet 650 mg 650 mg, Oral, Every 6 hours PRN, Starting on Mon09/30/24 at 2129, Until Mon10/21/24 at 1711, Routine, mild pain Given 10/18/2024 9:00 PM EDT 650 mg Given 10/17/2024 8:13 PM EDT 650 mg Asenapine 3.8mg/24 hr patch 1 patch, Transdermal, Every 24 hours, First dose on Mon10/04/24 at 1400 Given 10/15/2024 1:41 PM EDT 1 patch Left Arm Given 10/14/2024 4:49 PM EDT 1 patch Le ft Arm Given 10/13/2024 2:08 PM EDT 1 patch Le ft Arm aspirin chewable tablet 81 mg 81 mg, Oral, Daily, First dose on Mon10/01/24 at 0900, Until Discontinued, Routine Given 10/21/2024 2:09 PM EDT 81 mg Given 10/20/2024 9:20 AM EDT 81 mg Given 10/19/2024 8:20 AM EDT 81 mg atorvastatin (Lipitor) tablet 40 mg 40 mg, Oral, Nightly, First dose on Mon09/30/24 at 2230, Until Discontinued, Routine Given 10/20/2024 8:53 PM EDT 40 mg Given 10/19/2024 8:14 PM EDT 40 mg Given 10/18/2024 9:00 PM EDT 40 mg bisacodyl (Dulcolax) EC tablet 10 mg 10 mg, Oral, Daily PRN, Starting on Mon10/01/24 at 0613, Until Mon10/21/24 at 1711, Routine, constipation Given 10/17/2024 8:43 AM EDT 10 mg Given 10/15/2024 6:07 AM EDT 10 mg Given 10/13/2024 5:59 AM EDT 10 mg cadexomer iodine (Iodosorb) 0.9 % gel Topical, Daily, First dose on Mon10/01/24 at 1500, Until Discontinued, Routine Given 10/20/2024 12:59 PM EDT Given 10/19/2024 8:22 AM EDT Given 10/18/2024 1:30 PM EDT carvedilol (Coreg) tablet 12.5 mg 12.5 mg, Oral, 2 times daily, First dose on Mon09/30/24 at 2230, Until Discontinued, Routine Given 10/07/2024 1:06 PM EDT 12.5 mg Given 10/06/2024 8:30 PM EDT 12.5 mg Given 10/06/2024 8:28 AM EDT 12.5 mg carvedilol (Coreg) tablet 25 mg 25 mg, Oral, 2 times daily, First dose (after last modification) on Mon10/07/24 at 2100, Until Discontinued, Routine Given 10/20/2024 8:53 PM EDT 25 mg Given 10/20/2024 9:20 AM EDT 25 mg Given 10/19/2024 8:14 PM EDT 25 mg clopidogrel (Plavix) tablet 75 mg 75 mg, Oral, Daily, First dose on Mon10/01/24 at 0900, Until Discontinued, Routine Given 10/21/2024 2:09 PM EDT 75 mg Given 10/20/2024 9:20 AM EDT 75 mg Given 10/19/2024 8:20 AM EDT 75 mg dextrose 10 % (D10W) bolus 125 mL 125 mL, Intravenous, Every 15 min PRN, Starting on Mon09/30/24 at 1940, Until Mon10/21/24 at 1711, Administer over 15 Minutes, Routine, low blood sugar BG 51-89 mg/dL dextrose 10 % (D10W) bolus 250 mL 250 mL, Intravenous, Every 15 min PRN, Starting on Mon09/30/24 at 1940, Until Mon10/21/24 at 1711, Administer over 15 Minutes, Routine, PRN low blood sugar BG =/<50 mg/dL divalproex sprinkle (Depakote Sprinkle) DR capsule 250 mg 250 mg, Oral, 2 times daily, First dose on Mon09/30/24 at 2230, Until Discontinued, Routine Given 10/21/2024 2:10 PM EDT 250 mg Given 10/20/2024 8:53 PM EDT 250 mg Given 10/20/2024 9:20 AM EDT 250 mg glucagon (human recombinant) injection 1 mg 1 mg, Intramuscular, Every 15 min PRN, Starting on Mon09/30/24 at 1940, Until Mon10/21/24 at 1711, Routine, low blood sugar per Hypoglycemia Prevention and Treatment protocol glucose (Glutose) 40 % oral gel 15-30 grams of glucose 15-30 grams of glucose, Sublingual, Every 15 min PRN, Starting on Mon09/30/24 at 1940, Until Mon10/21/24 at 1711, Routine, low blood sugar, per Hypoglycemia Prevention and Treatment protocol heparin (porcine) injection 5,000 Units 5,000 Units, Subcutaneous, Every 8 hours scheduled, First dose on Mon09/30/24 at 1945, Until Discontinued, Routine Given 10/21/2024 5:10 AM EDT 5,000 Units Left Upper Arm (Back) Given 10/20/2024 10:53 PM EDT 5,000 Units Left Upper Arm (Back) Given 10/20/2024 1:06 PM EDT 5,000 Units R ight Lower Abdomen insulin lispro (Admelog) 100 units/mL injection - Correction - Standard Dose 0-5 Units, Subcutaneous, 3 times daily with meals, First dose on Mon10/01/24 at 0830, Until Discontinued, Routine Given 10/13/2024 2:09 PM EDT 1 Units Left Lower Abdomen Given 10/12/2024 12:20 PM EDT 1 Units L eft Upper Arm (Back) Given 10/08/2024 12:18 PM EDT 3 Units L eft Upper Arm (Back) magnesium sulfate IVPB 2 g 2 g, Intravenous, Once, 1 dose, On Mon09/30/24 at 2005, Routine New Bag 09/30/2024 9:10 PM EDT 2 g 25 mL/ hr melatonin tablet 3 mg 3 mg, Oral, Nightly, First dose on Mon09/30/24 at 2230, Until Discontinued, Routine Given 10/20/2024 8:53 PM EDT 3 mg Given 10/19/2024 8:14 PM EDT 3 mg Given 10/18/2024 9:00 PM EDT 3 mg mupirocin (Bactroban) 2 % ointment 1 Application Each Nostril, 2 times daily, 10 doses, First dose on Mon10/01/24 at 0900, Last dose on Mon10/05/24 at 2100, Routine Given 10/05/2024 9:06 PM EDT 1 Application Given 10/05/2024 8:58 AM EDT 1 Application Given 10/04/2024 8:32 PM EDT 1 Application NIFEdipine XL (Procardia XL) 24 hr tablet 30 mg 30 mg, Oral, Daily, First dose on Mon10/01/24 at 0900, Until Discontinued, Routine Given 10/06/2024 8:28 AM EDT 30 mg Given 10/05/2024 8:56 AM EDT 30 mg Given 10/04/2024 1:11 PM EDT 30 mg NIFEdipine XL (Procardia XL) 24 hr tablet 30 mg 30 mg, Oral, Once, 1 dose, On 10/06/24 at 1745, Routine Given 10/06/2024 5:38 PM EDT 30 mg NIFEdipine XL (Procardia XL) 24 hr tablet 30 mg 30 mg, Oral, Once, 1 dose, On Mon10/07/24 at 2130, Routine Given 10/07/2024 8:44 PM EDT 30 mg NIFEdipine XL (Procardia XL) 24 hr tablet 60 mg 60 mg, Oral, Daily, First dose (after last modification) on Mon10/07/24 at 0900, Until Discontinued, Routine Given 10/20/2024 9:20 AM EDT 60 mg Given 10/19/2024 8:20 AM EDT 60 mg Given 10/18/2024 1:18 PM EDT 60 mg ondansetron ODT (Zofran-ODT) disintegrating tablet 4 mg 4 mg, Oral, Once, 1 dose, On 10/19/24 at 2130, STAT Given 10/19/2024 8:49 PM EDT 4 mg polyethylene glycol (Miralax) packet 17 g 17 g, Oral, Daily, First dose on Mon10/01/24 at 0900, Until Discontinued, Routine Given 10/15/2024 11:18 AM EDT 17 g Given 10/14/2024 8:56 AM EDT 17 g Given 10/13/2024 9:46 AM EDT 17 g polyethylene glycol (Miralax) packet 17 g 17 g, Oral, 2 times daily, First dose (after last modification) on Mon10/16/24 at 0900, Until Discontinued, Routine Given 10/20/2024 8:53 PM EDT 17 g Given 10/20/2024 9:20 AM EDT 17 g Given 10/19/2024 8:14 PM EDT 17 g potassium chloride CR (Klor-Con) ER tablet 40 mEq 40 mEq, Oral, Once, 1 dose, On Mon09/30/24 at 2105, Routine Given 09/30/2024 9:10 PM EDT 40 mEq senna (Senokot) tablet 17.2 mg 17.2 mg, Oral, Nightly PRN, Starting on Mon10/15/24 at 2126, Until Mon10/19/24 at 2045, Routine, constipation Given 10/16/2024 8:30 PM EDT 17.2 mg Given 10/15/2024 9:47 PM EDT 17.2 mg senna (Senokot) tablet 17.2 mg 17.2 mg, Oral, Nightly, First dose (after last modification) on Mon10/19/24 at 2145, Until Discontinued, Routine Given 10/20/2024 8:53 PM EDT 17.2 mg Given 10/19/2024 8:56 PM EDT 17.2 mg sertraline (Zoloft) tablet 75 mg 75 mg, Oral, Daily, First dose on Mon10/01/24 at 0900, Until Discontinued, Routine Given 10/21/2024 2:10 PM EDT 75 mg Given 10/20/2024 9:20 AM EDT 75 mg Given 10/19/2024 8:21 AM EDT 75 mg sevelamer carbonate (Renvela) tablet 800 mg 800 mg, Oral, 3 times daily with meals, First dose on Mon10/01/24 at 0830, Until Discontinued, RoutineIndications:ESRD on Dialysis Given 10/01/2024 1:06 PM EDT 800 mg Given 10/01/2024 9:56 AM EDT 800 mg sodium chloride 0.9 % flush 10 mL 10 mL, Intravenous, Every 12 hours, First dose on Mon09/30/24 at 1945, Until Discontinued, Routine Given 10/13/2024 5:59 PM EDT 10 mL Given 10/13/2024 9:47 AM EDT 10 mL Given 10/10/2024 9:02 AM EDT 10 mL sodium chloride 0.9 % flush 10 mL 10 mL, Intravenous, As needed, Starting on Mon09/30/24 at 1937, Until Mon10/21/24 at 1711, Routine, line care traZODone (Desyrel) tablet 100 mg 100 mg, Oral, Nightly, First dose on Mon09/30/24 at 2230, Until Discontinued, Routine Given 10/20/2024 8:53 PM EDT 100 mg Given 10/19/2024 8:14 PM EDT 100 mg Given 10/18/2024 9:01 PM EDT 100 mg documented in this encounter Active and Recently Administered Medications Times are shown in EDT. Scheduled Medication Order 10/19/2024 10/20/2024 10/21/2024 aspirin chewable tablet 81 mg 81 mg, Oral, Daily, First dose on Mon10/01/24 at 0900, Until Discontinued, Routine 0820 (Given - Provider: Marilee Zamora RN) 0920 (Given - Provider: April Merida RN) 1409 (Given - Provider: Jane Dill) atorvastatin (Lipitor) tablet 40 mg 40 mg, Oral, Nightly, First dose on Mon09/30/24 at 2230, Until Discontinued, Routine 2013 (Given - Provider: Sara Garnett RN) 2052 (Given - Provider: Deena Lott) cadexomer iodine (Iodosorb) 0.9 % gel Topical, Daily, First dose on Mon10/01/24 at 1500, Until Discontinued, Routine 0822 (Given - Provider: Marilee Zamora RN) 1259 (Given - Provider: April Merida RN - Comment: patient refused at due time) 0900 (Canceled Entry - Provider: Automatic Discharge Provider - Comment: Automatically canceled at discontinue of medication order) carvedilol (Coreg) tablet 25 mg 25 mg, Oral, 2 times daily, First dose (after last modification) on Mon10/07/24 at 2100, Until Discontinued, Routine 0820 (Given - Provider: Marilee Zamora, RN)2013 (Given - Provider: Sara Garnett, TRISTIN) 0920 (Given - Provider: April Merida, RN)2052 (Given - Provider: Deena Lott) 0900 (Canceled Entry - Provider: Automatic Discharge Provider - Comment: Automatically canceled at discontinue of medication order) clopidogrel (Plavix) tablet 75 mg 75 mg, Oral, Daily, First dose on Mon10/01/24 at 0900, Until Discontinued, Routine 0820 (Given - Provider: Marilee Zamora RN) 0920 (Given - Provider: April Merida, TRISTIN) 1409 (Given - Provider: Jane Dill) divalproex sprinkle (Depakote Sprinkle) DR capsule 250 mg 250 mg, Oral, 2 times daily, First dose on Mon09/30/24 at 2230, Until Discontinued, Routine 0820 (Given - Provider: Marilee Zamora, TRISTIN)2013 (Given - Provider: Sara Garnett RN) 0920 (Given - Provider: April Merida, TRISTIN)2052 (Given - Provider: Deena Lott) 1410 (Given - Provider: Jane Dill) heparin (porcine) injection 5,000 Units 5,000 Units, Subcutaneous, Every 8 hours scheduled, First dose on Mon09/30/24 at 1945, Until Discontinued, Routine 0527 (Given - Provider: Nelli Mayberry RN)1323 (Given - Provider: Marilee Zamora, TRISTIN)2014 (Given - Provider: Sara Garnett, TRISTIN) 0541 (Not Given - Provider: Sara Garnett, TRISTIN - Reason: Patient/family refused)1306 (Given - Provider: April Merida, TRISTIN)2253 (Given - Provider: Deena Lott) 0510 (Given - Provider: Deena Lott)1400 (Canceled Entry - Provider: Automatic Discharge Provider - Comment: Automatically canceled at discontinue of medication order) melatonin tablet 3 mg 3 mg, Oral, Nightly, First dose on Mon09/30/24 at 2230, Until Discontinued, Routine 2013 (Given - Provider: Sara Garnett RN) 2052 (Given - Provider: Deena Lott) NIFEdipine XL (Procardia XL) 24 hr tablet 60 mg 60 mg, Oral, Daily, First dose (after last modification) on Mon10/07/24 at 0900, Until Discontinued, Routine 0820 (Given - Provider: Marilee Zamora, TRISTIN) 0920 (Given - Provider: April Merida, RN) 0900 (Canceled Entry - Provider: Automatic Discharge Provider - Comment: Automatically canceled at discontinue of medication order) ondansetron ODT (Zofran-ODT) disintegrating tablet 4 mg (COMPLETED) 4 mg, Oral, Once, 1 dose, On 10/19/24 at 2130, STAT 2048 (Given - Provider: Sara Garnett RN) polyethylene glycol (Miralax) packet 17 g 17 g, Oral, 2 times daily, First dose (after last modification) on Mon10/16/24 at 0900, Until Discontinued, Routine 0820 (Given - Provider: Marilee Zamora RN)2013 (Given - Provider: Sara Garnett RN) 09 (Given - Provider: April Merida, TRISTIN)2052 (Given - Provider: Deena Lott) 0900 (Canceled Entry - Provider: Automatic Discharge Provider - Comment: Automatically canceled at discontinue of medication order) senna (Senokot) tablet 17.2 mg 17.2 mg, Oral, Nightly, First dose (after last modification) on 10/19/24 at 2145, Until Discontinued, Routine 2055 (Given - Provider: Sara Garnett RN) 2052 (Given - Provider: Deena Lott) sertraline (Zoloft) tablet 75 mg 75 mg, Oral, Daily, First dose on Mon10/01/24 at 0900, Until Discontinued, Routine 0821 (Given - Provider: Marilee Zamora, TRISTIN) 0920 (Given - Provider: April Merida, TRISTIN) 1410 (Given - Provider: Jane Dill - Comment: pt just returned from dialysis) sodium chloride 0.9 % flush 10 mL(Linked Group 1) 10 mL, Intravenous, Every 12 hours, First dose on Mon09/30/24 at 1945, Until Discontinued, Routine 0756 (Not Given - Provider: Marilee Zamora RN - Reason: Loss of IV access)1919 (Not Given - Provider: Sara Garnett, TRISTIN - Reason: Order parameters not met) 0725 (Not Given - Provider: April Merida RN - Reason: Loss of IV access)1845 (Not Given - Provider: April Merida RN - Reason: Loss of IV access) 0742 (Canceled Entry - Provider: Jane Dill) traZODone (Desyrel) tablet 100 mg 100 mg, Oral, Nightly, First dose on Mon09/30/24 at 2230, Until Discontinued, Routine 2013 (Given - Provider: Sara Garnett, TRISTIN) 2052 (Given - Provider: Deena Lott) PRN Medication Order 10/19/2024 10/20/2024 10/21/2024 acetaminophen (Tylenol) tablet 650 mg 650 mg, Oral, Every 6 hours PRN, Starting on Mon09/30/24 at 2129, Until Mon10/21/24 at 1711, Routine, mild pain bisacodyl (Dulcolax) EC tablet 10 mg 10 mg, Oral, Daily PRN, Starting on Mon10/01/24 at 0613, Until Mon10/21/24 at 1711, Routine, constipation dextrose 10 % (D10W) bolus 125 mL(Linked Group 2) 125 mL, Intravenous, Every 15 min PRN, Starting on Mon09/30/24 at 1940, Until Mon10/21/24 at 1711, Administer over 15 Minutes, Routine, low blood sugar BG 51-89 mg/dL dextrose 10 % (D10W) bolus 250 mL(Linked Group 2) 250 mL, Intravenous, Every 15 min PRN, Starting on Mon09/30/24 at 1940, Until Mon10/21/24 at 171, Administer over 15 Minutes, Routine, PRN low blood sugar BG =/<50 mg/dL glucagon (human recombinant) injection 1 mg(Linked Group 2) 1 mg, Intramuscular, Every 15 min PRN, Starting on Mon09/30/24 at 1940, Until Mon10/21/24 at 171, Routine, low blood sugar per Hypoglycemia Prevention and Treatment protocol glucose (Glutose) 40 % oral gel 15-30 grams of glucose(Linked Group 2) 15-30 grams of glucose, Sublingual, Every 15 min PRN, Starting on Mon09/30/24 at 1940, Until Mon10/21/24 at 171, Routine, low blood sugar, per Hypoglycemia Prevention and Treatment protocol sodium chloride 0.9 % flush 10 mL(Linked Group 1) 10 mL, Intravenous, As needed, Starting on Mon09/30/24 at 1937, Until Mon10/21/24 at 171, Routine, line care Linked Groups Order Group 1: Insert peripheral IV (CANCELED) Once, On Mon09/30/24 at 193, For 1 occurrence And Saline lock IV (CANCELED) Once, On Mon09/30/24 at 193, For 1 occurrence And sodium chloride 0.9 % flush 10 mLJump to med 10 mL, Intravenous, Every 12 hours, First dose on Mon09/30/24 at 1945, Until Discontinued, Routine And sodium chloride 0.9 % flush 10 mLJump to med 10 mL, Intravenous, As needed, Starting on Mon09/30/24 at 1937, Until Mon10/21/24 at 171, Routine, line care Group 2: glucose (Glutose) 40 % oral gel 15-30 grams of glucoseJump to med 15-30 grams of glucose, Sublingual, Every 15 min PRN, Starting on Mon09/30/24 at 1940, Until Mon10/21/24 at 171, Routine, low blood sugar, per Hypoglycemia Prevention and Treatment protocol Or dextrose 10 % (D10W) bolus 125 mLJump to med 125 mL, Intravenous, Every 15 min PRN, Starting on Mon09/30/24 at 1940, Until Mon10/21/24 at 171, Administer over 15 Minutes, Routine, low blood sugar BG 51-89 mg/dL Or dextrose 10 % (D10W) bolus 250 mLJump to med 250 mL, Intravenous, Every 15 min PRN, Starting on Mon09/30/24 at 1940, Until Mon10/21/24 at 171, Administer over 15 Minutes, Routine, PRN low blood sugar BG =/<50 mg/dL Or glucagon (human recombinant) injection 1 mgJump to med 1 mg, Intramuscular, Every 15 min PRN, Starting on Mon09/30/24 at 1940, Until Mon10/21/24 at 1711, Routine, low blood sugar per Hypoglycemia Prevention and Treatment protocol documented in this encounter Additional Health Concerns Infection Onset Date Last Indicated Resolved Time 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
[2024-10-29] VITALS (73 sets, daily range): BP systolic 106–177; BP diastolic 45–83; PULSE 64–78; RESP 10–20; TEMP 36.5–36.9; O2SAT 93–100; BMI 23.3
[2024-10-29 12:40] LABS: Immature Granulocytes % 0.4 %; Mean Corpuscular HGB Conc 34.1 g/dL (31.8-35.4); Mean Corpuscular Hemoglobin 31.6 pg (27.0-31.2); Mean Corpuscular Volume 92.9 fl (80-94); Nucleated Red Blood Cells % 0 %; Platelet Count 141 K/mm3 (142-424); Red Blood Count 1.96 M/mm3 (4.60-6.20); Red Cell Distribution Width-SD 46.8 fL; White Blood Count 8.4 K/mm3 (4.8-10.8)
[2024-10-29 12:43] LABS: Albumin Level 3.7 g/dl (3.5-5.0); Chloride 96 mmol/L (98-107); Potassium 4.1 mmoL/L (3.5-5.1); Sodium 134 mmol/L (136-145)
[2024-10-29 12:45] LABS: Hemoglobin 6.2 g/dL (14.1-18.0)
--- NOTE | 2024-10-29 12:45 | PC.NURSE ---
CRITICAL H&H 6.218.2 PT NAME AND R/V. KRISTEL LOYD NOTIFIED
[2024-10-29 12:46] LABS: Alanine Aminotransferase 9 U/L (12-78); Albumin/Globulin Ratio 1.0 (1.1-1.8); Alkaline Phosphatase 42 U/L (38-126); Anion Gap 14.1 mEq/L (5-15); Aspartate Amino Transferase 23 U/L (17-59); Bilirubin,Total 0.5 mg/dl (0.2-1.3); Blood Urea Nitrogen 17 mg/dl (9-20); Calcium 7.9 mg/dl (8.4-10.2); Carbon Dioxide 28 mmol/L (22.0-30.0); Creatinine Clearance Estimated 12 mL/min (50-200); Estimated Glomerular Filt Rate 10 ml/min (>60); GFR (African American) 13 ML/MIN (>60); Globulin 3.7 g/dL (1.3-3.2); Glucose 96 mg/dl (74-100); Hematocrit 18.2 % (42.0-52.0); Total Protein,Serum 7.4 g/dl (6.3-8.2)
--- NOTE | 2024-10-29 12:46 | ED_ITS ---
<Statement entered by Kiran Huerta MD - 10/30/24 15:41> I was consulted by the CHRISTINE, and we discussed the complexity of the problems being addressed. I approved the treatment and management plan for this patient's care in the emergency department, thus performing a substantive portion of the medical decision making. Kiran Huerta MD, DAVID, FACEP Discharge Plan Disposition Chief Complaint: Recheck/Abnormal Lab/Rx Referrals Follow up/Referrals: Provider,Referral, MD [Primary Care Provider, Medical] - See instructions Activity Restrictions/Add. Instructions Additional Instructions/Restrictions: Today you were evaluated in the emergency department and had a blood transfusion. You will need to have your labs rechecked by your PCP. Return to the ED for worsening of condition Clinical Impressions Clinical Impression: Anemia Instructions Patient Instructions: Blood Transfusion Print Language Print Language: Yi Discharge ED Provider: Kiran Huerta General Adult HPI General Chief complaint: Recheck/Abnormal Lab/Rx Stated complaint: low hemoglobin Time Seen by Provider: 10/29/24 12:30 Mode of Arrival: EMS Source of Information: Patient and EMS Description of Symptoms (Recalled from ER Triage Doc. by RN): EMS was called out for pt with critical labs from [facility]. Per EMS pt's hemoglobin was 6.5 a couple days ago and was redrawn this morning with a hemoglobin of 5.6. hx of dementia and Hep C. pt is currently on dialysis. pt reports that he is weak. 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 History of Present Illness HPI narrative: pt is a 64 year old male PMHx CKD, CHF, chronic anemia [facility]. Pt communicates via dry erase board and verbal communication. He states that he had blood transfusions in the past without adverse reactions. Related Data Allergies Allergy/AdvReac Type Severity Reaction Status Date / Time No Known Allergies Allergy Verified 10/29/24 12:33 [facility] Disclaimer: The information contained in this section may have been updated after the patient was seen, as this information can be updated by other users. 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 Chronic combined systolic (congestive) and diastolic (congestive) heart failure Essential (primary) hypertension Unspecified hearing loss, unspecified ear Insomnia, unspecified Other specified anxiety disorders Major depressive disorder, single episode, unspecified Unspecified dementia, unspecified severity, with other behavioral disturbance Hypo-osmolality and hyponatremia Hyperlipemia Type 2 diabetes mellitus with foot ulcer Anemia, unspecified Chronic viral hepatitis C End stage renal disease Social History Smoking Status: Never smoker alcohol intake: never current occupational status: unemployed Travel in the last 8 weeks?: None ROS Obtained: Yes Systems reviewed as appropriate & no additional complaints except as documented Physical Exam General General appearance: alert Head Head exam: atraumatic Eye Eye exam: Present PERRL Respiratory Respiratory exam: Present normal lung sounds bilaterally Cardiovascular Cardiovascular exam: Present regular rate Abdominal Exam Abdominal exam: Present soft; Absent tenderness Back Exam Back exam: Present full ROM Neurological Exam Neurological exam: Present alert and oriented X3 Skin Skin exam: Present warm and dry Medical Decision Making Medical Records Screening: Per USPSTF and CDC recommendations, given the prevalence of disease in our region, it is our hospital?s policy to screen for HIV and viral Hepatitis for all patients aged 18 and over and those with ongoing risk factors. Vaibhav Inquiry Pt receiving controlled substance: No Vital Signs: 10/29/24 12:32 10/29/24 12:40 10/29/24 13:00 Temperature 98.2 F 98.2 F Temperature Source Oral Oral Pulse Rate 72 68 Pulse Rate [Right] 72 Respiratory Rate 12 12 TAR Vitals Timing Blood Pressure 107/57 L 123/53 L Blood Pressure [Left Arm] 107/57 L Blood Pressure Mean 65 Blood Pressure Mean [Left Arm] 73 Blood Pressure Source Automatic Cuff Blood Pressure Source [Left Arm] Automatic Cuff Blood Pressure Position Supine Blood Pressure Position [Left Arm] Supine 02 Sat by Pulse Oximetry 98 98 98 Oxygen Delivery Method Room Air Room Air 10/29/24 13:30 10/29/24 14:00 10/29/24 14:30 Temperature Temperature Source Pulse Rate 67 67 66 Pulse Rate [Right] Respiratory Rate TAR Vitals Timing Blood Pressure 118/61 134/61 112/47 L Blood Pressure [Left Arm] Blood Pressure Mean 80 86 71 Blood Pressure Mean [Left Arm] Blood Pressure Source Blood Pressure Source [Left Arm] Blood Pressure Position Blood Pressure Position [Left Arm] 02 Sat by Pulse Oximetry 98 Oxygen Delivery Method 10/29/24 14:48 10/29/24 14:48 10/29/24 15:02 Temperature 98.0 F Temperature Source Pulse Rate 67 66 67 Pulse Rate [Right] Respiratory Rate 12 TAR Vitals Timing Pre-Blood Vitals Blood Pressure 106/48 L 106/48 L 123/81 Blood Pressure [Left Arm] Blood Pressure Mean 67 Blood Pressure Mean [Left Arm] Blood Pressure Source Blood Pressure Source [Left Arm] Blood Pressure Position Blood Pressure Position [Left Arm] 02 Sat by Pulse Oximetry 98 98 100 Oxygen Delivery Method 10/29/24 15:05 10/29/24 15:06 10/29/24 15:10 Temperature 98.0 F 98.4 F Temperature Source Pulse Rate 72 67 66 Pulse Rate [Right] Respiratory Rate 13 13 TAR Vitals Timing Start Vitals 5 Minute Blood Pressure 132/48 L 132/48 L 110/53 L Blood Pressure [Left Arm] Blood Pressure Mean 76 72 Blood Pressure Mean [Left Arm] Blood Pressure Source Blood Pressure Source [Left Arm] Blood Pressure Position Blood Pressure Position [Left Arm] 02 Sat by Pulse Oximetry 99 100 97 Oxygen Delivery Method 10/29/24 15:11 10/29/24 15:15 10/29/24 15:16 Temperature 97.9 F Temperature Source Pulse Rate 67 66 66 Pulse Rate [Right] Respiratory Rate 14 11 L TAR Vitals Timing 10 Minute Blood Pressure 110/53 L 112/46 L Blood Pressure [Left Arm] Blood Pressure Mean Blood Pressure Mean [Left Arm] Blood Pressure Source Blood Pressure Source [Left Arm] Blood Pressure Position Blood Pressure Position [Left Arm] 02 Sat by Pulse Oximetry 98 98 100 Oxygen Delivery Method 10/29/24 15:20 10/29/24 15:20 10/29/24 15:26 Temperature 98.5 F Temperature Source Pulse Rate 66 67 Pulse Rate [Right] Respiratory Rate 12 15 13 TAR Vitals Timing 15 Minute Blood Pressure 114/45 L 114/45 L 135/45 L Blood Pressure [Left Arm] Blood Pressure Mean 68 Blood Pressure Mean [Left Arm] Blood Pressure Source Blood Pressure Source [Left Arm] Blood Pressure Position Blood Pressure Position [Left Arm] 02 Sat by Pulse Oximetry 98 98 Oxygen Delivery Method 10/29/24 15:30 10/29/24 15:35 10/29/24 15:35 Temperature 98.3 F Temperature Source Oral Pulse Rate 68 Pulse Rate [Right] Respiratory Rate 13 12 13 TAR Vitals Timing 30 Minute Blood Pressure 135/57 L 120/82 120/82 Blood Pressure [Left Arm] Blood Pressure Mean 94 Blood Pressure Mean [Left Arm] Blood Pressure Source Automatic Cuff Blood Pressure Source [Left Arm] Blood Pressure Position Supine Blood Pressure Position [Left Arm] 02 Sat by Pulse Oximetry 98 Oxygen Delivery Method 10/29/24 15:40 10/29/24 15:46 10/29/24 15:50 Temperature 98.0 F Temperature Source Oral Pulse Rate 76 Pulse Rate [Right] Respiratory Rate 17 11 L 13 TAR Vitals Timing 45 Minute Blood Pressure 122/56 L 166/65 H 150/75 H Blood Pressure [Left Arm] Blood Pressure Mean 100 Blood Pressure Mean [Left Arm] Blood Pressure Source Automatic Cuff Blood Pressure Source [Left Arm] Blood Pressure Position Supine Blood Pressure Position [Left Arm] 02 Sat by Pulse Oximetry 99 Oxygen Delivery Method 10/29/24 15:51 10/29/24 15:56 10/29/24 16:01 Temperature Temperature Source Pulse Rate Pulse Rate [Right] Respiratory Rate 15 17 10 L TAR Vitals Timing Blood Pressure 177/77 H 141/60 H 150/75 H Blood Pressure [Left Arm] Blood Pressure Mean Blood Pressure Mean [Left Arm] Blood Pressure Source Blood Pressure Source [Left Arm] Blood Pressure Position Blood Pressure Position [Left Arm] 02 Sat by Pulse Oximetry Oxygen Delivery Method 10/29/24 16:05 10/29/24 16:05 10/29/24 16:10 Temperature 97.9 F Temperature Source Oral Pulse Rate 73 67 Pulse Rate [Right] Respiratory Rate 14 12 13 TAR Vitals Timing 60 Minute Blood Pressure 146/63 H 146/63 H 140/56 L Blood Pressure [Left Arm] Blood Pressure Mean 90 Blood Pressure Mean [Left Arm] Blood Pressure Source Automatic Cuff Blood Pressure Source [Left Arm] Blood Pressure Position Supine Blood Pressure Position [Left Arm] 02 Sat by Pulse Oximetry 98 100 Oxygen Delivery Method 10/29/24 16:15 10/29/24 16:20 10/29/24 16:25 Temperature Temperature Source Pulse Rate Pulse Rate [Right] Respiratory Rate 12 15 16 TAR Vitals Timing Blood Pressure 128/53 L 130/53 L 127/50 L Blood Pressure [Left Arm] Blood Pressure Mean Blood Pressure Mean [Left Arm] Blood Pressure Source Blood Pressure Source [Left Arm] Blood Pressure Position Blood Pressure Position [Left Arm] 02 Sat by Pulse Oximetry Oxygen Delivery Method 10/29/24 16:30 10/29/24 16:35 10/29/24 16:40 Temperature Temperature Source Pulse Rate 66 67 66 Pulse Rate [Right] Respiratory Rate 12 13 16 TAR Vitals Timing Blood Pressure 131/55 L 134/57 L 133/58 L Blood Pressure [Left Arm] Blood Pressure Mean Blood Pressure Mean [Left Arm] Blood Pressure Source Blood Pressure Source [Left Arm] Blood Pressure Position Blood Pressure Position [Left Arm] 02 Sat by Pulse Oximetry 99 99 100 Oxygen Delivery Method 10/29/24 16:45 10/29/24 16:50 10/29/24 16:55 Temperature Temperature Source Pulse Rate 65 65 64 Pulse Rate [Right] Respiratory Rate 14 12 12 TAR Vitals Timing Blood Pressure 140/59 L 132/59 L 132/59 L Blood Pressure [Left Arm] Blood Pressure Mean Blood Pressure Mean [Left Arm] Blood Pressure Source Blood Pressure Source [Left Arm] Blood Pressure Position Blood Pressure Position [Left Arm] 02 Sat by Pulse Oximetry 97 98 97 Oxygen Delivery Method 10/29/24 17:00 10/29/24 17:05 10/29/24 17:07 Temperature 98.3 F Temperature Source Pulse Rate 67 66 66 Pulse Rate [Right] Respiratory Rate 11 L 14 11 L TAR Vitals Timing Completion Vitals Blood Pressure 134/63 138/59 L 146/65 H Blood Pressure [Left Arm] Blood Pressure Mean 92 Blood Pressure Mean [Left Arm] Blood Pressure Source Blood Pressure Source [Left Arm] Blood Pressure Position Blood Pressure Position [Left Arm] 02 Sat by Pulse Oximetry 93 L 98 98 Oxygen Delivery Method 10/29/24 17:08 10/29/24 17:12 10/29/24 17:15 Temperature Temperature Source Pulse Rate 66 69 70 Pulse Rate [Right] Respiratory Rate 14 10 L 12 TAR Vitals Timing Blood Pressure 141/64 H 146/65 H 141/70 H Blood Pressure [Left Arm] Blood Pressure Mean Blood Pressure Mean [Left Arm] Blood Pressure Source Blood Pressure Source [Left Arm] Blood Pressure Position Blood Pressure Position [Left Arm] 02 Sat by Pulse Oximetry 99 100 98 Oxygen Delivery Method 10/29/24 17:20 10/29/24 17:24 10/29/24 17:25 Temperature 98.3 F Temperature Source Oral Pulse Rate 67 68 71 Pulse Rate [Right] Respiratory Rate 12 13 11 L TAR Vitals Timing Pre-Blood Vitals Blood Pressure 128/53 L 143/70 H 143/70 H Blood Pressure [Left Arm] Blood Pressure Mean 94 Blood Pressure Mean [Left Arm] Blood Pressure Source Automatic Cuff Blood Pressure Source [Left Arm] Blood Pressure Position Supine Blood Pressure Position [Left Arm] 02 Sat by Pulse Oximetry 98 99 99 Oxygen Delivery Method 10/29/24 17:30 10/29/24 17:31 10/29/24 17:35 Temperature 97.7 F 97.8 F Temperature Source Oral Oral Pulse Rate 72 69 68 Pulse Rate [Right] Respiratory Rate 12 14 12 TAR Vitals Timing Start Vitals 5 Minute Blood Pressure 132/64 132/64 134/68 Blood Pressure [Left Arm] Blood Pressure Mean 86 90 Blood Pressure Mean [Left Arm] Blood Pressure Source Automatic Cuff Automatic Cuff Blood Pressure Source [Left Arm] Blood Pressure Position Supine Supine Blood Pressure Position [Left Arm] 02 Sat by Pulse Oximetry 98 100 98 Oxygen Delivery Method 10/29/24 17:36 10/29/24 17:40 10/29/24 17:41 Temperature 97.8 F Temperature Source Oral Pulse Rate 69 69 Pulse Rate [Right] Respiratory Rate 13 11 L 16 TAR Vitals Timing 10 Minute Blood Pressure 134/68 143/64 H 143/64 H Blood Pressure [Left Arm] Blood Pressure Mean 90 Blood Pressure Mean [Left Arm] Blood Pressure Source Automatic Cuff Blood Pressure Source [Left Arm] Blood Pressure Position Supine Blood Pressure Position [Left Arm] 02 Sat by Pulse Oximetry 99 98 Oxygen Delivery Method 10/29/24 17:45 10/29/24 17:48 10/29/24 17:51 Temperature 98 F Temperature Source Oral Pulse Rate 77 78 Pulse Rate [Right] Respiratory Rate 15 18 13 TAR Vitals Timing 15 Minute Blood Pressure 142/61 H 142/61 H 146/75 H Blood Pressure [Left Arm] Blood Pressure Mean 88 Blood Pressure Mean [Left Arm] Blood Pressure Source Automatic Cuff Blood Pressure Source [Left Arm] Blood Pressure Position Supine Blood Pressure Position [Left Arm] 02 Sat by Pulse Oximetry 98 97 Oxygen Delivery Method 10/29/24 17:56 10/29/24 18:00 10/29/24 18:00 Temperature 97.9 F Temperature Source Oral Pulse Rate 70 Pulse Rate [Right] Respiratory Rate 15 13 15 TAR Vitals Timing 30 Minute Blood Pressure 153/63 H 151/83 H 151/83 H Blood Pressure [Left Arm] Blood Pressure Mean 105 Blood Pressure Mean [Left Arm] Blood Pressure Source Automatic Cuff Blood Pressure Source [Left Arm] Blood Pressure Position Supine Blood Pressure Position [Left Arm] 02 Sat by Pulse Oximetry 98 Oxygen Delivery Method 10/29/24 18:05 10/29/24 18:10 10/29/24 18:15 Temperature 98 F Temperature Source Oral Pulse Rate 72 Pulse Rate [Right] Respiratory Rate 17 16 16 TAR Vitals Timing 45 Minute Blood Pressure 149/69 H 144/62 H 140/67 Blood Pressure [Left Arm] Blood Pressure Mean 91 Blood Pressure Mean [Left Arm] Blood Pressure Source Automatic Cuff Blood Pressure Source [Left Arm] Blood Pressure Position Supine Blood Pressure Position [Left Arm] 02 Sat by Pulse Oximetry 99 Oxygen Delivery Method 10/29/24 18:15 10/29/24 18:20 10/29/24 18:25 Temperature Temperature Source Pulse Rate Pulse Rate [Right] Respiratory Rate 15 15 20 TAR Vitals Timing Blood Pressure 140/67 146/60 H 156/65 H Blood Pressure [Left Arm] Blood Pressure Mean Blood Pressure Mean [Left Arm] Blood Pressure Source Blood Pressure Source [Left Arm] Blood Pressure Position Blood Pressure Position [Left Arm] 02 Sat by Pulse Oximetry Oxygen Delivery Method 10/29/24 18:30 10/29/24 18:31 10/29/24 18:35 Temperature 98.1 F Temperature Source Oral Pulse Rate 72 Pulse Rate [Right] Respiratory Rate 12 13 14 TAR Vitals Timing 60 Minute Blood Pressure 149/50 H 149/50 H 151/64 H Blood Pressure [Left Arm] Blood Pressure Mean 83 Blood Pressure Mean [Left Arm] Blood Pressure Source Automatic Cuff Blood Pressure Source [Left Arm] Blood Pressure Position Supine Blood Pressure Position [Left Arm] 02 Sat by Pulse Oximetry 99 Oxygen Delivery Method 10/29/24 18:40 10/29/24 18:45 10/29/24 18:50 Temperature Temperature Source Pulse Rate Pulse Rate [Right] Respiratory Rate 13 13 14 TAR Vitals Timing Blood Pressure 157/64 H 153/69 H 156/68 H Blood Pressure [Left Arm] Blood Pressure Mean Blood Pressure Mean [Left Arm] Blood Pressure Source Blood Pressure Source [Left Arm] Blood Pressure Position Blood Pressure Position [Left Arm] 02 Sat by Pulse Oximetry Oxygen Delivery Method 10/29/24 18:55 10/29/24 19:00 10/29/24 19:05 Temperature Temperature Source Pulse Rate Pulse Rate [Right] Respiratory Rate 12 13 12 TAR Vitals Timing Blood Pressure 151/67 H 147/62 H 145/66 H Blood Pressure [Left Arm] Blood Pressure Mean Blood Pressure Mean [Left Arm] Blood Pressure Source Blood Pressure Source [Left Arm] Blood Pressure Position Blood Pressure Position [Left Arm] 02 Sat by Pulse Oximetry Oxygen Delivery Method Lab Data Lab Results 10/29/24 12:25: WBC 8.4, RBC 1.96 L*, Hgb 6.2 L*, Hct 18.2 L*, MCV 92.9, MCH 31.6 H, MCHC 34.1, RDW 13.7, Plt Count 141 L, MPV 9.9, Neut % (Auto) 59.9, Lymph % (Auto) 29.0, [place] % (Auto) 6.3, Eos % (Auto) 3.8, Baso % (Auto) 0.6, Neut # (Auto) 5.0, Lymph # (Auto) 2.4, [place] # (Auto) 0.5, Eos # (Auto) 0.3, Baso # (Auto) 0.1, Sodium 134 L, Potassium 4.1, Chloride 96 L, Carbon Dioxide 28, Anion Gap 14.1, BUN 17, Creatinine 5.50 H, Estimated Creat Clear 12, Estimated GFR 10 L*, Est GFR ( Amer) 13 L*, Glucose 96, Calcium 7.9 L, Total Bilirubin 0.5, AST 23, ALT 9 L, Alkaline Phosphatase 42, Total Protein 7.4, Albumin 3.7, G lobulin 3.7 H, Albumin/Globulin Ratio 1.0 L, HCV Ab SIDRA w/Rflx PCR Qn Reactive, HIV Ag/Ab Combo Qual Negative 10/29/24 12:37: Blood Type A Positive, Antibody Screen Negative, Crossmatch (AHG) See Detail 10/29/24 14:15: Blood Type Confirm A Positive 10/29/24 12:25 10/29/24 12:25 Orders (Tests/Meds): ED MEDICATIONS Generic Name Dose Route Start Last Admin Trade Name Freq PRN Reason Stop Dose Admin Sodium Chloride 250 mls @ 25 mls/hr 10/29/24 12:45 10/29/24 12:50 Sod Chlor 0.9% 250ml Bag IV 10/30/24 12:44 25 mls/hr .Q10H RAFAT Administration Sodium Chloride 10 ml 10/29/24 12:30 Sodium Chloride 0.9% 10ml Flush Syringe IV 11/28/24 12:29 NEEDED PRN Maintain IV Site Discontinued Medications Generic Name Dose Route Start Last Admin Trade Name Skyler PRN Reason Stop Dose Admin Sodium Chloride 250 ml 10/29/24 17:30 10/29/24 17:59 Sodium Chloride 0.9% 250ml Bag IV 10/29/24 17:31 250 ml ONCE ONE Administration ORDERS Category Date Time Status Blood transfusion [Red Blood Cells] Stat BBK 10/29/24 12:37 Completed Type and Screen Stat BBK 10/29/24 12:37 Completed CBC w/Auto Diff [Complete Blood Count Auto Diff] Stat Lab 10/29/24 12:25 Completed CMP [Comprehensive Metabolic Panel] Stat Lab 10/29/24 12:25 Completed HCV RNA PCR, Quant Stat Lab 10/29/24 12:25 Received HIV Combo Stat Lab 10/29/24 12:25 Completed Hepatitis C Ab Qual. W/ RFX Stat Lab 10/29/24 12:25 Completed Medical Decision Narrative: In summary, pt is a 64 year old male PMHx CKD, CHF, chronic anemia [facility]. Pt communicates via dry erase board and verbal communication. He states that he had blood transfusions in the past without adverse reactions. He denies any pain or needs at this time. He admits to feeling overall weak for the past several days. Denies fever, chills, headache, chest pain, SOA, abd pain, nausea, vomiting, dysuria. Discussed with patient we will manage his chronic anemia with 2 units of blood today. Upon further evaluation, we were able to review the records from where he was recently admitted in the past month, it appears he has chronic anemia and his hemoglobin has been downtrending for the past several weeks. 2 units of blood administered, will reevaluate H&H posttransfusion. Patient remains hemodynamically stable while in the ED. Care transferred to ED attending at 1930 pending repeat H&H Critical Care Critical Care Time Critical Care Time: No
[2024-10-29 12:50] LABS: Creatinine,Serum 5.50 mg/dl (0.66-1.25)
[2024-10-29] MEDS: 0.9 % SODIUM CHLORIDE 250 ML 25 ML IV (12:50)
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
--- OUTSIDE RECORDS SUMMARY | 2024-10-29 13:00 | XMS_ITS | Encounter Summary ---
Author Organization Healthcare Address [address] [place] [address] Care Team Providers Care Lobsterman Name Role Phone Pcp, No Primary Care Provider UnavailRanjana Castellanos USER SUPPORT ANALYST SUPERVISOR Unavailable UnavailYola Bains Unavailable Unavailable Leonard Botello MD Primary Care Provider Yesenia Morrell USER SUPPORT ANALYST SUPERVISOR Unavailable Unavailable Goldie Alan USER SUPPORT ANALYST SUPERVISOR Unavailable UnavailGoldie Kong USER SUPPORT ANALYST SUPERVISOR Unavailable UnavailRanjana Castellanos USER SUPPORT ANALYST SUPERVISOR Unavailable UnavailMinnie Martinez RN Unavailable Unavailab le Encounter Details Date Type Department Care Team (Late st Contact Info) Description 04/04/2022 Lab Requisition [facility] [address], [address] [place] [address] Ariel Lucas MD [address] [place] [address] End stage renal disease (CMS/HCC) [...] Differential Lab Routine End stage renal disease ([facility]/HCC) Ordered: 04/04/2022 documented as of this encounter Procedures Procedure Name Priority Date/Time Associated Diagnosis Comments COMPREHENSIVE METABOLIC PANEL, PLASMA Routine 04/04/2022 1:30 PM EST End stage renal disease (CMS/HCC) documented in this encounter Results * (ABNORMAL) Comprehensive metabolic panel (04/04/2022 1:30 PM EST) Glucose, Plasma 167(H) 74 - 99 mg/dL 04/04/2022 2:29 PM EST [facility] BUN, Plasma 24(H) 8 - 23 mg/dL 04/04/2022 2:29 PM EST [facility] Creatinine, Plasma 5.86(H) 0.80 - 1.30 mg/dL 04/04/2022 2:29 PM EST [facility] BUN/Creatinine Ratio 4 04/04/2022 2:29 PM EST [facility] Sodium, Plasma 137 136 - 145 mmol/L 04/04/2022 2:29 PM EST [facility] Potassium, Plasma 3.8 3.7 - 4.8 mmol/L 04/04/2022 2:29 PM EST [facility] Comment:Reference range for Serum potassium is 0.2 to 0.5 mmol/L higher than Plasma range. Chloride, Plasma 100 97 - 107 mmol/L 04/04/2022 2:29 PM EST [facility] CO2, Plasma 25 22 - 29 mmol/L 04/04/2022 2:29 PM [facility] Anion Gap 12 6 - 16 mmol/L 04/04/2022 2:29 PM [facility] Total Calcium, Plasma 8.8(L) 8.9 - 10.2 mg/dL 04/04/2022 2:29 PM [facility] Total Protein 7.9 6.3 - 7.9 g/dL 04/04/2022 2:29 PM [facility] Albumin, Plasma 3.4(L) 3.5 - 5.2 g/dL 04/04/2022 2:29 PM [facility] AST, Plasma 20 19 - 48 U/L 04/04/2022 2:29 PM [facility] ALT, Plasma <5(L) 11 - 41 U/L 04/04/2022 2:29 PM [facility] Alkaline Phosphatase, Plasma 72 40 - 115 U/L 04/04/2022 2:29 PM [facility] Total Bilirubin, Plasma 0.4 0.2 - 1.1 mg/dL 04/04/2022 2:29 PM [facility] eGFRcr 10.1 mL/min/1.7 3m*2 04/04/2022 2:29 PM [facility] Comment: Reported eGFRcr in mL/min/1.73m2 is based the CKD-EPI 2021 equation that does not use a race coefficient. Effective 10/13/21 our laboratory changed the eGFR calculation to the CKD-EPI 2021 equation from the previously reported eGFR, based on the MDRD equation. 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 COVID-19 Rule-Out 04/14/2023 04/14/2023 04/14/2023 8:45 PM EST documented as of this encounter Care Teams Lobsterman Relationship Specialty Start Date End Date Pcp, No [address] [place] [address] PCP - General Family Medicine 09/16/21 06/07/22 [place] [address] [place] [address] [address] [place] [address] PCP - General Family Medicine 06/08/22 Ranjana Elias LPN VALUE[employer] [place] [address] TCM Nurse 03/25/22 04/18/22 [place] [address] Stitch Wheeler Wood Finisher 04/12/22 05/05/22 Yesenia Morrell LPN VALUE[employer] [address] TCM Nurse 07/29/22 08/04/22 Goldie Alan LPN VALUE-BASED TRANSFORMATION PROGRAM TCM Nurse Internal Medicine 08/10/22 08/11/22 Goldie Alan LPN VALUE-BASED TRANSFORMATION PROGRAM TCM Nurse Internal Medicine 08/17/22 09/16/22 Ranjana Elias LPN VALUE[employer] [address] TCM Nurse 01/13/23 02/08/23 Minnie Penn, RN CH-VASCULAR & INTERVENTIONAL RADIOLOGY Registered Nurse 10/01/24 10/01/24 documented as of this encounter
--- OUTSIDE RECORDS SUMMARY | 2024-10-29 13:00 | XMS_ITS | Clinical Summary ---
Author Organization [facility] Address [address] [place] [address] Phone Care Team Providers Care Zigzagger Name Role Phone Efren Black MD Unavailable [ ] Conditions or Problems Problem Name Problem Code Onset Date Status Entry Date Provider Comment Standard Description Annotate Acute renal failure 51623764 (SNOMED CT) 10/11 Active 10/11 Meghanfabi Lopez Acute kidney injury Acquired absence of right toe(s) Z89.421 (ICD-10-CM) 10/11 Active 10/11 Meghan Lopez Acquired absence of other right toe(s) Acute hepatitis C B17.10 (ICD-10-CM) 10/11 Active 10/11 Meghan Lopez Acute hepatitis C without hepatic coma MRSA infection 450359500 (SNOMED CT) 10/11 Active 10/11 Meghan Lopez Methicillin resistant Staphylococcus aureus infection ENTEROCOCCUS INFECTION 877378518 (SNOMED CT) 10/11 Active 10/11 Meghan Lopez Infection caused by Enterococcus Providencia infection B96.89 (ICD-10-CM) 10/11 Active 10/11 Meghan Lopez Other specified bacterial agents as the cause of diseases classified elsewhere Cellulitis, foot, right 435467240 (SNOMED CT) 10/11 Active 10/11 Meghanfabi Floreswell [...] ulcer Other obesity due to excess calories 919286659 (SNOMED CT) 10/11 Active 10/11 Anastacio Schaffer Simple obesity Medications Medication Instructions Start Date Stop Date Generic Name ND Provider NORCO 5-325 MG ORAL TABLET 2 tabs by mouth every 4 hours as needed HYDROCODONE-ACETA MINOPHEN 92851715392 Anastacio Schaffer MIRALAX ORAL PACKET 17 grams by mouth twice daily as needed POLYETHYLENE GLYCOL 3350 00617823124 Anastacio Schaffer LEVEMIR 100 UNIT/ML SUBCUTANEOUS SOLUTION 20 units subcutaneous twice daily INSULIN DETEMIR 77817738389 Anastacio Schaffer NOVOLOG 100 UNIT/ML SUBCUTANEOUS SOLUTION INSULIN ASPART 44446313789 Anastacio Schaffer GABAPENTIN 600 MG TABS by mouth twice daily GABAPENTIN 09413355950 Anastacio Schaffer ANTONIETTA-Q 2 ORAL CAPSULE by mouth daily PROBIOTIC PRODUCT 45422712906 Anastacio Schaffer FLOMAX 0.4 MG ORAL CAPSULE by mouth daily TAMSULOSIN HCL 75117964811 Anastacio Schaffer ACID CONTROL MAXIMUM STRENGTH 20 MG TABS by mouth daily FAMOTIDINE 35774162050 Anastacio Schaffer ERGOCALCIFEROL 1.25 MG (98573 UT) CAPS by mouth weekly ERGOCALCIFEROL 44624326971 Anastacio Schaffer DULCOLAX 10 MG SUPP twice daily BISACODYL 91214115250 Anastacio Schaffer CATAPRES 0.1 MG ORAL TABLET CLONIDINE HCL 56859270701 Anastacio Schaffer COREG 12.5 MG TABS by mouth twice daily CARVEDILOL 53651419920 Anastacio Schaffer ASPIR-LOW 81 MG ORAL TABLET DELAYED RELEASE by mouth daily ASPIRIN 98694997550 Anastacio Schaffer AMITRIPTYLINE HCL 50 MG TABS by mouth at bedtime AMITRIPTYLINE HCL 68346885535 Anastacio Schaffer Medications Administered No information available. [...]
--- OUTSIDE RECORDS SUMMARY | 2024-10-29 13:00 | XMS_ITS | Encounter Summary ---
Author Organization Healthcare Address [address] [place] [address] Care Team Providers Care Environmental Services Associate Name Role Phone Pcp, No Primary Care Provider Leonard Knutson MD Primary Care Provider Yesenia Morrell LPN Unavailable Unavailable Goldie Alan LPN Unavailable Goldie Servin LPN Unavailable UnavailRanjana Castellanos LPN Unavailable UnavailMinnie Martinez RN Unavailable Unavailab le Encounter Details Date Type Department Care Team (Latest Contact Info) Description 06/01/2022 Lab Requisition [facility] [address], [address] [place] [address] Ariel Lucas MD [address] [place] [address] Osteomyelitis of vertebra, thoracic region [...] Assessment Author Yes 09/29/2021 3:17 PM EDT [place], [place] A * Do you have serious difficulty walking or climbing stairs? Answer Date of Assessment Author Yes 09/29/2021 3:17 PM EDT [place], [place] uth A * Do you have serious difficulty dressing or bathing? Answer Date of Assessment Author Yes 09/29/2021 3:17 PM EDT [place], R uth A * Because of a [...] LAB HEMATOLOGY METHOD 06/01/2022 3:27 PM EDT [facility] RBC Count 3.55(L) 4.60 - 6.10 10*6/uL LAB HEMATOLOGY METHOD 06/01/2022 3:27 PM EDT [facility] HGB 10.0(L) 13.7 - 17.5 g/dL LAB HEMATOLOGY METHOD 06/01/2022 3:27 PM EDT [facility] HCT 30.5(L) 40.0 - 51.0 % LAB HEMATOLOGY METHOD 06/01/2022 3:27 PM EDT [facility] Platelet Count 162 155 - 369 10*3/uL LAB HEMATOLOGY METHOD 06/01/2022 3:27 PM EDT [facility] MCV 86 79 - 98 fL LAB HEMATOLOGY METHOD 06/01/2022 3:27 PM EDT [facility] MCH 28.2 26.0 - 32.0 pg LAB HEMATOLOGY METHOD 06/01/2022 3:27 PM EDT [facility] MCHC 32.8 30.7 - 35.5 g/dL LAB HEMATOLOGY METHOD 06/01/2022 3:27 PM EDT [facility] RDW 14.1 11.5 - 14.5 % LAB HEMATOLOGY METHOD 06/01/2022 3:27 PM EDT [facility] MPV 11.7 8.8 - 12.5 fL LAB HEMATOLOGY METHOD 06/01/2022 3:27 PM EDT [facility] nRBC 0.0 <=0.0 per 100 WBCs LAB HEMATOLOGY METHOD 06/01/2022 3:27 PM EDT [facility] Differential Type Automated LAB HEMATOLOGY METHOD 06/01/2022 3:27 PM EDT [facility] Neutrophils % 75.0 % LAB HEMATOLOGY METHOD 06/01/2022 3:27 PM EDT [facility] Lymphocytes % 16.0 % LAB HEMATOLOGY METHOD 06/01/2022 3:27 PM EDT [facility] Monocytes % 5.0 % LAB HEMATOLOGY METHOD 06/01/2022 3:27 PM EDT [facility] Eosinophils % 2.0 % LAB HEMATOLOGY METHOD 06/01/2022 3:27 PM EDT [facility] Basophils % 1.0 % LAB HEMATOLOGY METHOD 06/01/2022 3:27 PM EDT [facility] Immature Granulocytes % 1.0 % LAB HEMATOLOGY METHOD 06/01/2022 3:27 PM EDT [facility] Neutrophils Absolute 6.28(H) 1.60 - 6.10 10*3/uL LAB HEMATOLOGY METHOD 06/01/2022 3:27 PM EDT [facility] Lymphocytes Absolute 1.33 1.20 - 3.90 10*3/uL LAB HEMATOLOGY METHOD 06/01/2022 3:27 PM EDT [facility] Monocytes Absolute 0.41 0.30 - 0.90 10*3/uL LAB HEMATOLOGY METHOD 06/01/2022 3:27 PM EDT [facility] Eosinophils Absolute 0.16 0.00 - 0.50 10*3/uL LAB HEMATOLOGY METHOD 06/01/2022 3:27 PM EDT [facility] Basophils Absolute 0.04 0.00 - 0.10 10*3/uL LAB HEMATOLOGY METHOD 06/01/2022 3:27 PM EDT [facility] Immature Granulocytes Absolute 0.05 0.00 [...] ORDERABLES Final Resul t Performing Organization Address City/State/[facility] Co de Phone Number [facility] [address] [place] [id number] * (ABNORMAL) C-reactive protein (06/01/2022 2:20 PM [...] MD LAB BLOOD ORDERABLES Final Resul t [facility] [address] [place] [address] * (ABNORMAL) Comprehensive metabolic panel (06/01/2022 2:20 PM EDT) Glucose, Plasma 382(H) 74 - 99 mg/dL 06/01/2022 3:42 PM EDT [facility] BUN, Plasma 23 8 - 23 mg/dL 06/01/2022 3:42 PM EDT [facility] Creatinine, Plasma 3.41(H) 0.80 - 1.30 mg/dL 06/01/2022 3:42 PM EDT [facility] BUN/Creatinine Ratio 7 06/01/2022 3:42 PM EDT [facility] Sodium, Plasma 128(L) 136 - 145 mmol/L 06/01/2022 3:42 PM EDT [facility] Potassium, Plasma 3.9 3.7 - 4.8 mmol/L 06/01/2022 3:42 PM EDT [facility] Chloride, Plasma 93(L) 97 - 107 mmol/L 06/01/2022 3:42 PM EDT [facility] CO2, Plasma 26 22 - 29 mmol/L 06/01/2022 3:42 PM EDT [facility] Anion Gap 9 6 - 16 mmol/L 06/01/2022 3:42 PM EDT [facility] Total Calcium, Plasma 8.7(L) 8.9 - 10.2 mg/dL 06/01/2022 3:42 PM EDT [facility] Total Protein 7.6 6.3 - 7.9 g/dL 06/01/2022 3:42 PM EDT [facility] Albumin, Plasma 3.4(L) 3.5 - 5.2 g/dL 06/01/2022 3:42 PM EDT [facility] AST, Plasma 13(L) 19 - 48 U/L 06/01/2022 3:42 PM EDT [facility] ALT, Plasma 8(L) 11 - 41 U/L 06/01/2022 3:42 PM EDT [facility] Alkaline Phosphatase, Plasma 53 40 - 115 U/L 06/01/2022 3:42 PM EDT [facility] Total Bilirubin, Plasma 0.4 0.2 - 1.1 mg/dL 06/01/2022 3:42 PM EDT [facility] eGFRcr 19.4 mL/min/1.7 3m*2 06/01/2022 3:42 PM EDT [facility] Comment: Reported eGFRcr in mL/min/1.73m2 is based the CKD-EPI 202 equation that does not use a race coefficient. Effective 10/13/21 our laboratory changed the eGFR calculation to the CKD-EPI 2021 equation from the previously reported eGFR, based on the MDRD equation. For comparisons between the two equations, please see laboratory website: [email or web address] Blood Venous blood specimen / Unknown 06/01/2022 2:20 PM EDT 06/01/2022 3:19 PM EDT us Ariel Lucas MD LAB BLOOD ORDERABLES Final Resul t [facility] [address] [place] [address] documented in this encounter Visit Diagnoses Diagnosis [...] documented as of this encounter Care Teams Environmental Services Associate Relationship Specialty Start Date End Date Pcp, No [address] [place] [address] PCP - General Family Medicine 09/16/21 06/07/22 Leonard Botello MD [address] [facility] [address] [place] [address] PCP - General Family Medicine 06/08/22 Yesenia Morrell LPN VALUE-BASED TR[place] [address] TCM Nurse 07/29/22 08/04/22 Goldie Alan LPN VALUE-BASED TRANSFORMATION PROGRAM TCM Nurse Internal Medicine 08/10/22 08/11/22 Goldie Alan LPN VALUE-BASED TRANSFORMATION PROGRAM [facility] Nurse Internal Medicine 08/17/22 09/16/22 Ranjana Elias LPN VALUE-BASED [place] [address] TCM Nurse 01/13/23 02/08/23 Minnie Penn, RN CH-VASCULAR & INTERVENTIONAL RADIOLOGY Registered Nurse 10/01/24 10/01/24 documented as of this encounter
--- OUTSIDE RECORDS SUMMARY | 2024-10-29 13:00 | XMS_ITS | Encounter Summary ---
Author Organization Healthcare Address [address] [place] [address] Care Team Providers Care Stripping Cutter And Winder Name Role Phone Pcp, No Primary Care Provider UnavailUrvashi Morocho LEAD DATABASE ADMINISTRATOR Unavailable Unavailable Ranjana Elias LEAD DATABASE ADMINISTRATOR Unavailable Unavailabl Yola Wheatley Unavailable Unavailable Leonard Botello MD Primary Care Provider [phone] Yesenia Morrell LEAD DATABASE ADMINISTRATOR Unavailable Unavailable PlanGoldie gtz N LEAD DATABASE ADMINISTRATOR Unavailable Unavailabl Goldie Mccauley LEAD DATABASE ADMINISTRATOR Unavailable Unavailabl Ranjana Billy LEAD DATABASE ADMINISTRATOR Unavailable UnavailMinnie Martinez RN Unavailable Unavailab le Encounter Details Date Type Department Care Team (Late st Contact Info) Description 07/29/2020 [facility] Historical OTTR [address] [place] [address] Rose Vázquez, AIRCREWMAN [address] [facility] [address] [place] [address] Social History Tobacco Use Types [...] Notes * Progress Notes - Rose Vázquez, OXYGEN THERAPY TECHNICIAN - 07/29/2020 3:29 PM EDT ICE: 59 yo CM w/ ESRD 2/2 DM/ HTN, began HD maybe in 2015 PMH: End-stage renal disease Diabetes mellitus Hypertension Cognitive developmental delay Congestive heart failure Hepatitis-C History of COVID pneumonia Neuropathy PSH: Left AV fistula Bilateral TMA Ear surgery Family history: unknown Social history: He is single, lives in a family prison with a paid caregiver. He denies tobacco, [...] delay, does not have a power of workers compensation attorney. When I asked him what he [...] documented as of this encounter Care Teams Stripping Cutter And Winder Relationship Specialty Start Date End Date Pcp, No [address] [place] [address] PCP - General Family Medicine 09/16/21 06/07/22 Leonard Botello MD [address] [facility] [address] [place] [address] PCP - General Family Medicine 06/08/22 Urvashi Del Cid LPN VALUE-BASED [place] [address] TCM Nurse 09/30/21 10/29/21 Ranjana Elias LPN VALUE-BASED [place] [address] TCM Nurse 03/25/22 04/18/22 [place] [address] First Coat Sander Platform Inspector 04/12/22 05/05/22 Yesenia Morrell LPN VALUE-BASED [place] [address] TCM Nurse 07/29/22 08/04/22 Goldie Alan LPN VALUE-BASED TRANSFORMATION PROGRAM TCM Nurse Internal Medicine 08/10/22 08/11/22 Goldie Alan LPN VALUE-BASED TRANSFORMATION PROGRAM TCM Nurse Internal Medicine 08/17/22 09/16/22 Ranjana Elias LPN VALUE-BASED [place] [address] TCM Nurse 01/13/23 02/08/23 Minnie Penn, RN CH-VASCULAR & INTERVENTIONAL RADIOLOGY Registered Nurse 10/01/24 10/01/24 documented as of this encounter
--- OUTSIDE RECORDS SUMMARY | 2024-10-29 13:00 | XMS_ITS | Encounter Summary ---
Author Organization Healthcare Address [address] [place] [address] Care Team Providers Care Iron Miner Name Role Phone Pcp, No Primary Care Provider UnavailUrvashi Morocho RADIOLOGIC TECHNOLOGY INSTRUCTOR Unavailable Unavailable Ranjana Elias RADIOLOGIC TECHNOLOGY INSTRUCTOR Unavailable Unavailabl Yola Wheatley Unavailable Unavailable Leonard Botello MD Primary Care Provider [phone] Yesenia Morrell RADIOLOGIC TECHNOLOGY INSTRUCTOR Unavailable Unavailable PlanGoldie gtz N RADIOLOGIC TECHNOLOGY INSTRUCTOR Unavailable Unavailabl Goldie Mccaluey RADIOLOGIC TECHNOLOGY INSTRUCTOR Unavailable Unavailabl Ranjana Billy RADIOLOGIC TECHNOLOGY INSTRUCTOR Unavailable UnavailMinnie Martinez RN Unavailable Unavailab le Encounter Details Date Type Department Care Team (Late st Contact Info) Description 07/29/2020 [facility] Encounter Historical OTTR [address] [place] [address] Rose Vázquez, PAYROLL TECHNICIAN [address] [facility] [address] [place] [address] Social History Tobacco Use Types [...] Notes * Progress Notes - Rose Vázquez, MORTGAGE LOAN PROCESSING CLERK - 07/29/2020 3:29 PM EDT ICE: 59 yo CM w/ ESRD 2/2 DM/ HTN, began HD maybe in 2015 PMH: End-stage renal disease Diabetes mellitus Hypertension Cognitive developmental delay Congestive heart failure Hepatitis-C History of COVID pneumonia Neuropathy PSH: Left AV fistula Bilateral TMA Ear surgery Family history: unknown Social history: He is single, lives in a family assisted with a paid caregiver. He denies tobacco, [...] delay, does not have a power of real estate attorney. When I asked him what he [...] understanding of all. Updated APM, SCM, OTTR, [place], and [address] calendar. Mailed updated 07/22/20 ICE ppw to pt and cc'd referring MD and dialysis center. * Progress Notes - Shasta Stout - 06/10/2020 9:53 AM EDT Received VM from Sharon Villarreal stating she wrote down incorrect appt info and just realized pt has appt today. She asked for call back at [phone] to r/s pt's appt. Called her back/ No answer, LVMasking for return call to discuss r/s'ing pt's appt. Notified [facility] via Teams message. * Progress Notes - Shasta Stout - 05/20/2020 2:14 PM EST Received kidney txp referral. Called pt and spoke w/ his office machine servicer apprentice (Sharon Villarreal). Verified pt's address and dialysis. [...] documented as of this encounter Care Teams Iron Miner Relationship Specialty Start Date End Date Pcp, No [address] [place] [address] PCP - General Family Medicine 09/16/21 06/07/22 Leonard Botello MD [address] [facility] [address] [place] [address] PCP - General Family Medicine 06/08/22 Urvashi Del Cid LPN VAL[employer] [place] [address] TCM Nurse 09/30/21 10/29/21 Ranjana Elias LPN [employer] [place] [address] TCM Nurse 03/25/22 04/18/22 [place] [address] Mortgage Protection Specialist Meat Inspector 04/12/22 05/05/22 Yesenia Morrell LPN VAL[employer] [place] [address] TCM Nurse 07/29/22 08/04/22 Goldie Alan LPN VALUE-BASED TRANSFORMATION PROGRAM TCM Nurse Internal Medicine 08/10/22 08/11/22 Goldie Alan LPN VALUE-BASED TRANSFORMATION PROGRAM TCM Nurse Internal Medicine 08/17/22 09/16/22 Ranjana Elias LPN [employer] [address] TCM Nurse 01/13/23 02/08/23 Minnie Penn, RN CH-VASCULAR & INTERVENTIONAL RADIOLOGY Registered Nurse 10/01/24 10/01/24 documented as of this encounter
--- OUTSIDE RECORDS SUMMARY | 2024-10-29 13:01 | XMS_ITS | Encounter Summary ---
Author Organization [facility] Address [address] [place] [address] Care Team Providers Care Personal Banking Officer Name Role Phone Leonard Botello MD Primary Care Provider [phone] Encounter Details Date Type Department Care Team (Late st Contact Info) Description 10/02/2024 [facility] [address] [place] [address] Enoc Bustillo Social History Tobacco [...] any time in the past 12 m [facility], were you homeless or [...] drink first t hossein in the morning (EYE-CLAIMS ADMINISTRATOR) to steady your nerves or to get [...] documented as of this encounter Care Teams Personal Banking Officer Relationship Specialty Start Date End Date Leonard Botello MD [address] [place] [address] [phone] PCP - General Family Medicine 06/08/22 documented as of this encounter
--- OUTSIDE RECORDS SUMMARY | 2024-10-29 13:01 | XMS_ITS | Encounter Summary ---
Author Organization Healthcare Address [address] [place] [address] Care Team Providers Care Master Chef Name Role Phone Leonard Botello MD Primary Care Provider [phone] Encounter Details Date Type Department Care Team [...] place to sleep or slept in a retirement (including now)? No 04/17/2023 Humiliation, Afraid, Rape, [...] time in the past 12 m [facility], were you homeless or living in a retirement (including now)? 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-GRADES 1 THRU 6 HOME TEACHER) to steady your nerves or to get [...] Month) No 10/07/2024 8:00 PM EDT Nano Chau TRISTIN 6. Suicidal Behavior (Lifetime) No 5 [...] documented as of this encounter Care Teams Master Chef Relationship Specialty Start Date End Date Leonard Botello MD [address] [phone] PCP - General Family Medicine 06/08/22 documented as of this encounter
--- OUTSIDE RECORDS SUMMARY | 2024-10-29 13:01 | XMS_ITS | Encounter Summary ---
Author Organization Healthcare Address [address] [place] [address] Care Team Providers Care Director Of Child Welfare Services Name Role Phone Leonard Botello MD Primary Care Provider [phone] Minnie Penn RN Unavailable Unavailab le Reason for Visit * Reason Comments Link Encounter Details Date Type Department Care Team (Late st Contact Info) Description 10/01/2024 Patient Outreach POPULATION HEALTH [address] [place] [address] Minnie Penn, RN CH-VASCULAR & INTERVENTIONAL RADIOLOGY Link [...] drink first t hossein in the morning (EYE-GAS MASK INSPECTOR) to steady your nerves or to get rid of a hangover? 0 06/25/2023 CAGE Questionnaire Score 0 024 Utilities Answer Date Recorded In the past 12 months has th e electric, gas, oil, or water RECESS. threatened to shut off services in your [...] documented as of this encounter Care Teams Director Of Child Welfare Services Relationship Specialty Start Date End Date Leonard Botello MD [address] [address] PCP - General Family Medicine 06/08/22 Minnie Penn, RN CH-VASCULAR & INTERVENTIONAL RADIOLOGY Registered Nurse 10/01/24 10/01/24 documented as of this encounter
--- OUTSIDE RECORDS SUMMARY | 2024-10-29 13:01 | XMS_ITS | Encounter Summary ---
Author Organization Healthcare Address [address] [place] [address] Care Team Providers Care Intranet Developer Name Role Phone Leonard Botello MD Primary Care Provider [phone] Encounter Details Date Type Department Care Team [...] place to sleep or slept in a mcc (including now)? No 04/17/2023 Humiliation, Afraid, Rape, [...] any time in the past 12 m [facility], were you homeless or living in a mcc (including now)? 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-UNIFORM ROOM ATTENDANT) to steady your nerves or to get [...] documented as of this encounter Care Teams Intranet Developer Relationship Specialty Start Date End Date Leonard Botello MD [address] [phone] PCP - General Family Medicine 06/08/22 documented as of this encounter
--- OUTSIDE RECORDS SUMMARY | 2024-10-29 13:01 | XMS_ITS | Encounter Summary ---
Author Organization Healthcare Address [address] [place] [address] Care Team Providers Care Street Light Wirer Name Role Phone Leonard Botello MD Primary Care Provider [phone] Encounter Details Date Type Department Care Team [...] a group home (including now)? No 04/17/2023 CAGE ASSESSMENT Answer [...] drink first t hossein in the morning (EYE-SYSTEMS ANALYST) to steady your nerves or to get [...] documented as of this encounter Care Teams Street Light Wirer Relationship Specialty Start Date End Date Leonard Botello MD [address] [facility] [address] [place] [address] PCP - General Family Medicine 06/08/22 documented as of this encounter
--- OUTSIDE RECORDS SUMMARY | 2024-10-29 13:01 | XMS_ITS | Encounter Summary ---
Author Organization Healthcare Address [address] [place] [address] Care Team Providers Care Deburring Machine Operator Name Role Phone Pcp, No Primary Care Provider UnavailRanjana Castellanos BALLOON DESIGN PRINTER Unavailable UnavailYola Bains Unavailable Unavailable Leonard Botello MD Primary Care Provider Yesenia Morrell BALLOON DESIGN PRINTER Unavailable Unavailable Goldie Alan BALLOON DESIGN PRINTER Unavailable UnavailGoldie Kong BALLOON DESIGN PRINTER Unavailable UnavailRanjana Castellanos BALLOON DESIGN PRINTER Unavailable UnavailMinnie Martinez RN Unavailable Unavailab le Encounter Details Date Type Department Care Team (Late st Contact Info) Description 04/06/2022 Lab Requisition [facility] Laboratory Services [address] [place] [address] Ariel Lucas MD [address] [place] [address] End stage renal disease (CMS/HCC) [...] LAB HEMATOLOGY METHOD 04/06/2022 2:16 PM EST [facility] LAB RBC Count 2.80(L) 4.60 - 6.10 10*6/uL LAB HEMATOLOGY METHOD 04/06/2022 2:16 PM EST [facility] LAB HGB 8.1(L) 13.7 - 17.5 g/dL LAB HEMATOLOGY METHOD 04/06/2022 2:16 PM [facility] HCT 25.4(L) 40.0 - 51.0 % LAB HEMATOLOGY METHOD 04/06/2022 2:16 PM EST [facility] LAB Platelet Count 154(L) 155 - 369 10*3/uL LAB HEMATOLOGY METHOD 04/06/2022 2:16 PM EST [facility] MCV 91 79 - 98 fL LAB HEMATOLOGY METHOD 04/06/2022 2:16 PM EST [facility] MCH 28.9 26.0 - 32.0 pg LAB HEMATOLOGY METHOD 04/06/2022 2:16 PM EST [facility] MCHC 31.9 30.7 - 35.5 g/dL LAB HEMATOLOGY METHOD 04/06/2022 2:16 PM EST [facility] LAB RDW 14.1 11.5 - 14.5 % LAB HEMATOLOGY METHOD 04/06/2022 2:16 PM [facility] MPV 11.1 8.8 - 12.5 fL LAB HEMATOLOGY METHOD 04/06/2022 2:16 PM [facility] LAB nRBC 0.0 <=0.0 per 100 WBCs LAB HEMATOLOGY METHOD 04/06/2022 2:16 PM [facility] LAB Differential Type Automated LAB HEMATOLOGY METHOD 04/06/2022 2:16 PM [facility] LAB Neutrophils % 66.0 % LAB HEMATOLOGY METHOD 04/06/2022 2:16 PM [facility] Lymphocytes % 23.0 % LAB HEMATOLOGY METHOD 04/06/2022 2:16 PM [facility] Monocytes % 5.0 % LAB HEMATOLOGY METHOD 04/06/2022 2:16 PM [facility] Eosinophils % 4.0 % LAB HEMATOLOGY METHOD 04/06/2022 2:16 PM [facility] Basophils % 1.0 % LAB HEMATOLOGY METHOD 04/06/2022 2:16 PM [facility] Immature Granulocytes % 1.0 % LAB HEMATOLOGY METHOD 04/06/2022 2:16 PM [facility] Neutrophils Absolute 4.31 1.60 - 6.10 10*3/uL LAB HEMATOLOGY METHOD 04/06/2022 2:16 PM EST [facility] Lymphocytes Absolute 1.49 1.20 - 3.90 10*3/uL LAB HEMATOLOGY METHOD 04/06/2022 2:16 PM [facility] Monocytes Absolute 0.33 0.30 - 0.90 [...] ORDERABLES Final Resul t [facility] [address] [place] [address] documented in this encounter Visit Diagnoses Diagnosis End stage renal disease (CMS/HCC) End stage renal disease documented in this encounter Additional Health Concerns Infection Onset Date Last Indicated Resolved Time MRSA 04/15/2022 12/07/2022 VRE 12/07/2022 12/07/2022 COVID-19 Rule-Out 04/14/2023 04/14/2023 04/14/2023 8:45 PM EST documented as of this encounter Care Teams Deburring Machine Operator Relationship Specialty Start Date End Date Pcp, No [address] [place] [address] PCP - General Family Medicine 09/16/21 06/07/22 Leonard Botello MD [address] [facility] [address] [place] [address] PCP - General Family Medicine 06/08/22 Ranjana Elias LPN VALUE-BASED [place] [address] TCM Nurse 03/25/22 04/18/22 Yola Ruff [facility] [place] [address] Assurance Assistant Energy Consultant 04/12/22 05/05/22 Yesenia Morrell LPN VALUE-BASED [place] [address] TCM Nurse 07/29/22 08/04/22 Goldie Alan LPN VALUE-BASED TRANSFORMATION PROGRAM TCM Nurse Internal Medicine 08/10/22 08/11/22 Goldie Alan LPN VALUE-BASED TRANSFORMATION PROGRAM TCM Nurse Internal Medicine 08/17/22 09/16/22 Ranjana Elias LPN VALUE-BASED [place] [address] TCM Nurse 01/13/23 02/08/23 Minnie Penn, RN CH-VASCULAR & INTERVENTIONAL RADIOLOGY Registered Nurse 10/01/24 10/01/24 documented as of this encounter
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
--- OUTSIDE RECORDS SUMMARY | 2024-10-29 13:01 | XMS_ITS ---
Author Organization Healthcare Address [address] [place] [address] Care Team Providers Care Clinic Nurse Name Role Phone Leonard Botello MD Primary Care Provider LINK Program Status:Closed (Closed) Start date:10/01/2024 Enrollment date:10/01/2024 End date:10/01/2024 Close reason:Not Eligible Overview Patient identified for LINK program. Following chart review, patient determined to be ineligible based on program criteria. Continued Care and Services Coordination
--- OUTSIDE RECORDS SUMMARY | 2024-10-29 13:01 | XMS_ITS | Encounter Summary ---
Author Organization Healthcare Address [address] [place] [address] Care Team Providers Care Grill Associate Name Role Phone Leonard Botello MD Primary Care Provider [phone] Encounter Details Date Type Department Care Team [...] drink first t hossein in the morning (EYE-SENIOR MOBILE DEVELOPER) to steady your nerves or to get [...] documented as of this encounter Care Teams Grill Associate Relationship Specialty Start Date End Date Leonard Botello MD [address] [address] PCP - General Family Medicine 06/08/22 documented as of this encounter
--- OUTSIDE RECORDS SUMMARY | 2024-10-29 13:01 | XMS_ITS | Encounter Summary ---
Author Organization Healthcare Address [address] [place] [address] Care Team Providers Care Product Controller Name Role Phone Leonard Botello MD Primary Care Provider [phone] Encounter Details Date Type Department Care Team [...] any time in the past 12 m [facility], were you homeless or living in [...] drink first t hossein in the morning (EYE-SERVICE DELIVERY SUPERVISOR) to steady your nerves or to [...] documented as of this encounter Care Teams Product Controller Relationship Specialty Start Date End Date Leonard Botello MD [address] [address] PCP - General Family Medicine 06/08/22 documented as of this encounter
--- OUTSIDE RECORDS SUMMARY | 2024-10-29 13:02 | XMS_ITS | Encounter Summary ---
Author Organization Healthcare Address [address] [place] [address] Care Team Providers Care Machine Zipper Trimmer Name Role Phone Leonadr Botello MD Primary Care Provider [phone] Encounter Details Date Type Department Care Team [...] any time in the past 12 m [facility], were you homeless or living in [...] drink first t hossein in the morning (EYE-ORAL HYGIENIST) to steady your nerves or to get [...] documented as of this encounter Care Teams Machine Zipper Trimmer Relationship Specialty Start Date End Date Leonard Botello MD [address] [address] PCP - General Family Medicine 06/08/22 documented as of this encounter
--- OUTSIDE RECORDS SUMMARY | 2024-10-29 13:02 | XMS_ITS | Encounter Summary ---
Author Organization Healthcare Address [address] [place] [address] Care Team Providers Care Assistant Paralegal Name Role Phone Leonard Botello MD Primary Care Provider [phone] Encounter Details Date Type Department Care Team [...] drink first t hossein in the morning (EYE-UPSETTER) to steady your nerves or to get [...] documented as of this encounter Care Teams Assistant Paralegal Relationship Specialty Start Date End Date Leonard Botello MD [address] [place] [address] [address] PCP - General Family Medicine 06/08/22 documented as of this encounter
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
--- OUTSIDE RECORDS SUMMARY | 2024-10-29 13:02 | XMS_ITS | Encounter Summary ---
Author Organization Healthcare Address [address] [place] [address] Care Team Providers Care Block Trimmer Name Role Phone Leonard Botello MD Primary Care Provider [phone] Encounter Details Date Type Department Care Team [...] drink first t hossein in the morning (EYE-CAPTAIN FISHING VESSEL) to steady your nerves or to get [...] documented as of this encounter Care Teams Block Trimmer Relationship Specialty Start Date End Date Leonard Botello MD [address] [address] PCP - General Family Medicine 06/08/22 documented as of this encounter
--- OUTSIDE RECORDS SUMMARY | 2024-10-29 13:02 | XMS_ITS | Encounter Summary ---
Author Organization Healthcare Address [address] [place] [address] Care Team Providers Care Medical Investigator Name Role Phone Leonard Botello MD Primary Care Provider [phone] Encounter Details Date Type Department Care Team [...] any time in the past 12 m [facility], were you homeless or living [...] drink first t hossein in the morning (EYE-MICROSOFT APPLICATION DEVELOPER) to steady your nerves or to [...] as of this encounter Care Teams Medical Investigator Relationship Specialty Start Date End Date Leonard Botello MD [address] [address] PCP - General Family Medicine 06/08/22 documented as of this encounter
--- OUTSIDE RECORDS SUMMARY | 2024-10-29 13:02 | XMS_ITS | Encounter Summary ---
Author Organization Healthcare Address [address] [place] [address] Care Team Providers Care Travel Ticketing Reviewer Name Role Phone Leonard Botello MD Primary Care Provider [phone] Encounter Details Date Type Department Care Team [...] any time in the past 12 m [facility], were you homeless or [...] drink first t hossein in the morning (EYE-MANAGER PUBLISHING) to steady your nerves or to get [...] documented as of this encounter Care Teams Travel Ticketing Reviewer Relationship Specialty Start Date End Date Leonard Botello MD [address] [address] PCP - General Family Medicine 06/08/22 documented as of this encounter
[2024-10-29 13:53] LABS: Hepatitis C Ab Qual. W/ RFX REACTIVE (Negative)
--- NOTE | 2024-10-29 15:23 | PC.NURSE ---
PRBCs infusion increased to 125 ml/hr from 75ml/hr
[2024-10-29] MEDS: SODIUM CHLORIDE 0.9% 250ML BAG 250 ML IV (17:59)
[2024-10-29 21:50] LABS: Hematocrit 24.4 % (42.0-52.0)
[2024-10-29 21:53] LABS: Hemoglobin 8.6 g/dL (14.1-18.0)
--- NOTE | 2024-10-29 22:57 | PC.NURSE ---
report called to Jessica at [facility]
== END 2024-10-29 23:01 | disposition home or self-care (01) ==
PROVIDERS: Nurse Practitioner; Emergency Provider Student in an Organized Health Care Education/Training Program
DX: R53.1 Weakness (principal); D63.1 Anemia in chronic kidney disease; N18.6 End stage renal disease; E11.9 Type 2 diabetes mellitus without complications; Z99.2 Dependence on renal dialysis
CPT/HCPCS: 36415; 36430; 80053; 85014; 85018; 85025; 86803; 86850; 87389; 87522; 96360; 96361; 99285; J7050; P9016

== ENCOUNTER 2024-11-20 22:25 | Outpatient (CLI) | payer MEDICARE, MEDICAID, SELFPAY ==
--- OUTSIDE RECORDS SUMMARY | 2024-09-30 15:29 | XMS_ITS | Encounter Summary ---
Author Organization Healthcare Address [address] 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 [address] Phone: tel: Referral ID Status Reason Start Date Expiration Date Visits Re quested Visits Authorized [id number] 1 1 Encounter Details Date Type Department Care Team (Latest Contact Info) Description 09/30/2024 3:29 PM EDT - 10/21/2024 3:10 PM EDT Hospital Encounter [facility] [address] [place] [address] Lesvia Adrian MD [address] [place] [address] Tana Wooten MD [address] [place] [address] Leda Gaitan MD [address] [place] [address] Lamont Brumfield MD [address] [place] [address] Jeannie Valle MD [address] [place] [address] ESRD (end stage renal disease) ([facility]) (Primary Dx); Noncompliance by refusing service; ESRD (end stage renal disease) on dialysis ([facility]); Declining functional status Discharge Disposition: Group Home Facility Social History Tobacco Use Types Packs/Day Years Used Date Smoking Tobacco: Never Smokeless Tobacco: Never Alcohol Use Standard Drinks/Week Comments Not Currently 0 (1 standard drink = 0.6 oz pur e alcohol) PHQ-2 Answer Date Recorded Patient Health Questionnaire-2 Score 0 09/13/2022 Humiliation, Afraid, Rape, and Kick questionnair e [...] any time in the past [address] [facility], were you homeless or living in a skilled nursing (including now)? 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 Answer Date of Assessment Author Yes 09/29/2021 3:17 PM EDT Julio R uth A * Do you have serious difficulty walking or climbing stairs? Answer Date of Assessment Author Yes 09/29/2021 3:17 PM EDT Julio R uth A * Do you have serious difficulty dressing or bathing? Answer Date of Assessment Author Yes 09/29/2021 3:17 PM EDT Julio R uth A * Because of a physical, mental, or emotional condition, do you have serious difficulty doing errandsalone such as visiting the doctor? Answer Date of Assessment Author Yes 09/29/2021 3:17 PM EDT Julio R uth A * Calculated C-SSRS Risk Score (Lifetime/Recent) Answer Date of Assessment Author Low Risk 10/21/2024 8:29 AM EDT Jose J Dill RN * Suicidal Ideation Question Answer Date of [...] RN Frequency (Lifetime) 3 10/20/2024 4:57 PM EDT Maxine Nuñez RN Duration (Lifetime) 2 10/20/2024 [...] (Past 1 Month) 3 10/20/2024 4:57 PM GISSELT Maxine Nuñez RN Duration (Past 1 Month) 2 10/20/2024 4:57 P M Maxine Srinivasan RN Controllability (Past 1 Month) 2 10/20/2024 4:57 PM EDT Maxine Nuñez RN Deterrents (Past 1 Month) 3 10/20/2024 4:57 PM EDT Maxine Nuñez RN Reasons for Ideation (Past 1 Month) 4 10/20/2024 4:57 PM EDT Maxine Nuñez RN * Suicidal Behavior Question Answer Date of Assessment Author Actual Attempt (Lifetime) No 10/20/2024 4:57 PM Maxine Srinivasan RN Has subject engaged in non-suicidal self-injurious behavior? (Lifetime) No 10/20/2024 4:57 PM EDT Maxine Nuñez RN Interrupted Attempts (Lifetime) No 4:57 PM GISSELT Maxine Nuñez RN Aborted or Self-Interrupted Attempt (Lifetime) No 10/20/2024 4:57 PM EDT Maxine Nuñez RN Preparatory Acts or Behavior (Lifetime) No 10/20/2024 4:57 PM EDT Maxine Nuñez RN * Question Answer Date of Assessment Author 1. Wish to be (Past 1 Month) Yes 025 8:29 AM EDT Jane Dill RN 2. Non-Specific Active Suici taylor Thoughts (Past 1 Month) No 10/21/2024 8:29 AM EDT Jane Dill RN 3. Active Suicidal Ideation with any Methods (Not Plan) Without Intent to Act (Past 1 Month) No 10/21/2024 8:29 AM EDT Kayli Dill RN 4. Active Suicidal Ideation with Some Intent to Act, Without Specific Plan (Past 1 Month) No 10/21/2024 8:29 AM GISSELT Kayli Dill RN 5. Active Suicidal Ideation with Specific Plan and Intent (Past 1 Month) No 10/21/2024 8:29 AM GISSELT Jane Dill RN 6. Suicidal Behavior (Lifetime) No 8:29 AM GISSELT Jane Dill RN documented as of this encounter Mental Status * Because of a physical, mental, or emotional condition, do you have serious difficulty concentrating, remembering, or making decisions? (5 years old or older) Answer Entry Date Author Yes 09/29/2021 3:17 PM EDT Mario Kim documented in this encounter Medications [...] Do not crush, chew, or split. 10/21/2024 senna (Senokot) 8.6 MG tablet Take 2 tablets by mouth nightly. 10/21/2024 sertraline (Zoloft) 25 MG tablet Take 1 tablet by mouth daily. Take with 50mg tablet for total daily dose of 75mg. sertraline (Zoloft) 50 MG tablet Take 1 tablet by mouth daily. Take with 25mg tablet for total daily dose of 75mg. traZODone (Desyrel) 100 MG tabletIndications :Primary insomnia Take 1 tablet (100 mg) by mouth every night. 30 tablet 2 01/19/2023 documented as of this encounter Miscellaneous Notes * Care Plan - Jane Dill Chandana - 10/21/2024 1:19 PM EDT Problem: Adult Inpatient Plan of Care Goal: Plan of Care Review Outcome: Met Flowsheets (Taken 10/21/2024 131) Plan of Care Reviewed With: patient Goal: [...] Intervention: Prevent Skin Injury Flowsheets (Taken 10/21/2024 1312) Body Position: education provided weight shifting Skin Protection: incontinence pads utilized Intervention: Prevent and Manage VTE (Venous Thromboembolism) Risk Flowsheets (Taken 10/21/2024 1312) VTE Prevention/Management: medication Intervention: Prevent Infection Flowsheets (Taken 10/20/2024 1226 by April Merida, RN) Infection Prevention: hand hygiene promoted rest/sleep promoted Goal: Optimal Comfort and Wellbeing Outcome: Met Intervention: Monitor Pain and Promote Comfort Flowsheets (Taken 10/21/2024 1312) Pain Management Interventions: pain management plan reviewed [...] needs identified Patient/Family Anticipated Services at Transition: shelter Patient/Family Anticipates Transition to: long-term care facility Taken 10/21/2024 0914 by Birdie Damico RN Current Discharge Risk: chronically ill cognitively impaired Patient's Choice of Community Agency(s): [facility] Problem: Skin Injury Risk Increased [...] Lott Isolation Precautions: precautions maintained Taken 10/20/2024 1226 by April Merida, RN Infection Management: aseptic technique maintained Fever Reduction/Comfort Measures: lightweight bedding lightweight clothing Problem: Diabetes Goal: Optimal Coping Outcome: Met Intervention: Support Wellbeing and Self-Management Success Flowsheets (Taken 10/20/2024 122 by April Merida, RN) Supportive Measures: active [...] Admit Date/Time: 09/30/2024 3:29 PM Admitting Attending: aTna Wooten Discharge Date: 10/21/24 Discharge Attending Physician: Jeannie Valle MD PCP name and Address: Leonard Botello MD [address] [place] [id number] Referring provider name and address: No referring provider defined for this encounter. Chief Concern, Brief History of Present Illness, and Hospital Course Per H and P; 64 y.o. male with past history of ESRD on HD MWF, T2DM, HTN, chronic HFrEF, PAD, HLD, IDD/dementia, depression/anxiety, insomnia, chronic HCV, DM foot ulcer c/b OM s/p bilateral transmetarsal amputation, and debility sent from his fpc to ED for medical evaluation after refusing care. Patient is extremely [place] and not wearing hearing aids limiting exam, therefore history obtained from chart review and Mariel (#[phone]) at his fpc. Unable to reach his legal guardian and brother, Chris Fernandez, at #[phone]. She reports that patient transferred a week ago to fpc after residing in a fdc for the past year with an increased level of assist. Since arriving patient has been refusing dialysis, to eat, participate, or take his medications. Earlier todayhe missed HD, last session 3 days ago on 09/27/2024. The fpc believes he needs a higher level of [...] ESRD (end stage renal disease) on dialysis ([facility]) Essential (primary) hypertension Type 2 diabetes mellitus with chronic kidney disease on chronic dialysis ([facility]) Wears hearing aid in both ears At high risk for falls Insomnia, unspecified Chronic combined systolic (congestive) and diastolic (congestive) heart failure (CMS/HCC) Dementia ([facility]) Chronic hepatitis C without hepatic coma ([facility]) Arterial insufficiency ([facility]) Gastroesophageal reflux disease without esophagitis Mixed hyperlipidemia Anxiety and depression Mild intellectual disabilities Sensorineural hearing loss, bilateral * (Principal) Declining functional status History of transmetatarsal amputation of foot ([facility]) Electrolyte and fluid disorder Anemia in chronic kidney disease (CODE) Chronic kidney disease-mineral and bone disorder (CKD-MBD) 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 ESRD (end stage renal disease) ([facility]) Aakash Fernandez is a [place] 64 y.o. male with past history of ESRD on HD MWF, T2DM, HTN, chronic HFrEF, PAD, HLD, IDD/dementia, depression/anxiety, insomnia, chronic HCV, DM foot ulcer c/b OM s/p bilateral transmetarsal amputation, and debility sent from his fpc to ED for medical evaluationafter refusing care. Declining functional status - Transferred to fpc a week ago and since arrival refusing HD, to eat, participate, or take medications - sent to ED for medical evaluation and need for higher level of assist/unable to care for self/non-compliance - afebrile, VSS, no acute complaints PLAN - PT/OT consult re: placement - legal guardian is his brother, Chris Fernandez, #[phone] (not answering calls since patient admission) Essential (primary) hypertension - increased carvedilol to 25 mg twice daily, nifedipine XL 60 mg daily (hold for BP <120/80 on dialysis days) At high risk for falls - wheelchair dependent, fall precautions ESRD (end stage renal disease) on dialysis ([facility]) - HD (MWF) - renally dose meds based on EGFR - strict I/O, daily weight Electrolyte and fluid disorder Hyponatremia Chronic kidney disease-mineral and bone disorder (CKD-MBD) - continue Renvela 800 mg TID with meals Anemia in chronic kidney disease (CODE) - Hgb stable, transfuse to keep >7 Type 2 diabetes mellitus with chronic kidney disease on chronic dialysis ([facility]) - last A1c 6.3 PLAN - will dc SSI given minimal Insulin need Dementia ([facility]) - Psych recommended; Asenapine 3.8 [...] bilateral transmetarsal amputation Dispo : Discharge to [facility] today and transportation to/from [place] to outpatient HD arranged per CM. Getting HD at [facility] today and then start outpatient HD on [...] Note Mundo Fernandez 64 y.o. 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[employer] Coating: Primary Caregiver: Private caregiver Assistance Available at Discharge: Current Outpatient/Agency/Support Group: clinic(s), DME Availability of Care Givers (#Hours): 24 hours Family/Roof[employer](s) Willingness Assessed to care for patient at home: Yes Family/Ro[employer]er V[employer] Coating(s) Readiness Assessed to care for patient at home: Yes Housing Circumstances-Z Codes: Housing Circumstances (select all that apply): Low Income (101-300% Federal Poverty Guidlines) - Z596 Patient Referred to Financial or Community Resources: Discharge Facility/Level of Care Needs: Discharge Facility/Level of Care Needs: 3-Group Home Facility Patient's Choice of Community Agency(s): Patient's Choice of Community Agency(s): [facility] Patient/Family Anticipated Services at Transition: Patient/Family Anticipated Services at Transition: shelter DME/Equipment Needed after Discharge: Equipment Currently Used [...] with brother and guardian, Chris Fernandez. Follow-up: [facility] [phone] [address] Go on 10/21/2024 [facility] ([address] D-TI) [phone] Online [address] [facility] [place] [address] Go on 10/23/2024 First HD session at [...] to discharge today. Accepted for LTC by [facility]. Patient brother, legal guardian, Chris Fernandez aware and agrees with discharge and facility. Patient to receive HD (3.5 hr session) today at 0900 before discharge. Beginning Monday10/23/24 patient is scheduled to receive HD at 10:20 every Monday, Monday, and Monday. Facility staff working on setting up transportation to and from HD sessions. Krystyna barrera bedside miner pick today at 1400. Call report [phone] CM will fax DCS [phone] Escribe controlled meds only to [facility]. CM will continue to follow for dc planning needs. Birdie Damico, RN * Consults - Gabriele Vanegas - 10/20/2024 5:30 PM EDT Pastoral Care Note Vat Washer visited with Aakash at bedside after consulting with nurse. Aakash's nurse shared he has been down and discouraged with being in the hospital so long. Aakash shared with Vat Washer that he wants to go to another hospital. Aakash has difficulty hearing, Vat Washer was speaking loudly but Aakash respondedwell at first then appeared confused, he pushed call button for nurse. He was able to hear nurse oncall button and the tv but appeared confused or possible scared by Vat Washer. Vat Washer then excused himself, Aakash expressed appreciation. Chaplan [...] Care Review Outcome: Ongoing, Progressing Flowsheets (Taken 10/20/2024 1226) Progress: no change Outcome Evaluation: Patient will [...] and Manage Fall Risk Flowsheets (Taken 10/20/2024 0800) Safety Promotion/Fall Prevention: activity supervised clutter-free environment maintained fall prevention program maintained safety round/check completed Intervention: Prevent Skin Injury Flowsheets Taken 10/20/2024 1226 Skin Protection: incontinence pads utilized Taken 10/20/2024 0800 Body Position: turned Intervention: Prevent and Manage [...] Promote and Optimize Oral Intake Flowsheets (Taken 10/20/2024 1226) Oral Nutrition Promotion: physical activity promoted Nutrition Interventions: frequent small meals provided food preferences provided Problem: Fall Injury Risk Goal: Absence of Fall and Fall-Related Injury Outcome: Ongoing, Progressing Intervention: Identify and Manage Contributors Flowsheets (Taken 10/20/2024 1226) Medication Review/Management: medications reviewed Self-Care Promotion: independence [...] Ongoing, Progressing Intervention: Promote Activity and Functional [place] Flowsheets (Taken 10/20/2024 1226) Activity Assistance Provided: [...] from the original note were not included. [facility] Medicine Inpatient Progress Note Patient: Mundo [...] Assessment and Plan: Aakash Fernandez is a [place] 64 y.o. male with past history of ESRD on HD MWF, T2DM, HTN, chronic HFrEF, PAD, HLD, IDD/dementia, depression/anxiety, insomnia, chronic HCV, DM foot ulcer c/b OM s/p bilateral transmetarsal amputation, and debility sent from his fpc to ED for medical evaluationafter refusing care. Declining functional status - Transferred to fpc a week ago and since arrival refusing HD, to eat, participate, or take medications - sent to ED for medical evaluation and need for higher level of assist/unable to care for self/non-compliance - afebrile, VSS, no acute complaints PLAN - PT/OT consult re: placement - legal guardian is his brother, Chris Fernandez, #[phone] (not answering calls since patient admission) Essential (primary) hypertension - increased carvedilol to 25 mg twice daily, nifedipine XL 60 mg daily (hold for BP <120/80 on dialysis days) At high risk for falls - wheelchair dependent, fall precautions ESRD (end stage renal disease) on dialysis ([facility]) - HD (MWF) - renally dose meds based on EGFR - strict I/O, daily weight Electrolyte and fluid disorder Hyponatremia Chronic kidney disease-mineral and bone disorder (CKD-MBD) - continue Renvela 800 mg TID with meals Anemia in chronic kidney disease (CODE) - Hgb stable, transfuse to keep >7 Type 2 diabetes mellitus with chronic kidney disease on chronic dialysis ([facility]) - last A1c 6.3 PLAN - will dc SSI given minimal Insulin need Dementia ([facility]) - Psych recommended; Asenapine 3.8 [...] melatonin 3 mg at bedtime Arterial insufficiency ([facility]) - continue aspirin 81 mg [...] systolic (congestive) and diastolic (congestive) heart failure ([facility]) - ECHO 06/27/2022: EF 45%, abnormal diastolic dysfunction - strict I/O, 2 L fluid restriction, cardiac/renal/CCHO2 diet Chronic hepatitis C without hepatic coma ([facility]) - HCV RNA PCR not detected 07/13/2023 History of transmetatarsal amputation of foot ([facility]) - chronic OM 2/2 DM foot ulcers s/p bilateral transmetarsal amputation Dispo : pending placement. Per CM- at [facility] indicates patient has been approved for LTC pending [facility] chair. Primary CM/RN will need to arrange transportation to [facility] on Mondayand transportation [place] to outpatient HD will have to be arranged as well. [facility] and then start outpatient HD on 10/23. [1] Current Facility-Administered Medications: acetaminophen (Tylenol) tablet 650 mg, 650 mg, Oral, q6h PRN, Lala Valdes, SUPERINTENDENT DISTRIBUTION, 650 mg at 10/18/24 2100 aspirin chewable tablet 81 mg, 81 mg, Oral, Daily, Lala Valdes, SUPERINTENDENT DISTRIBUTION, 81 mg at 10/20/2420 atorvastatin (Lipitor) tablet 40 mg, 40 mg, Oral, Nightly, Lala Valdes, SUPERINTENDENT DISTRIBUTION, 40 mg at 10/19/242013 bisacodyl (Dulcolax) EC tablet 10 mg, 10 mg, Oral, Daily PRN, Lala Valdes, SUPERINTENDENT DISTRIBUTION, 10 mg at 10/17/24 0843 cadexomer iodine (Iodosorb) 0.9 % gel, , Topical, Daily, Tana Wooten MD, Given at 10/19/24 0822 carvedilol (Coreg) tablet 25 mg, 25 mg, Oral, BID, Leda Gaitan MD, 25 mg at 10/20/24919 clopidogrel (Plavix) tablet 75 mg, 75 mg, Oral, Daily, Lala Valdes, SUPERINTENDENT DISTRIBUTION, 75 mg at 10/20/24919 glucose (Glutose) 40 % oral gel 15-30 grams of glucose, 15-30 grams of glucose, Sublingual, q15 minPRN OR dextrose 10 % (D10W) bolus 125 mL, 125 mL, Intravenous, q15 min PRN OR dextrose 10 %(D10W) bolus 250 mL, 250 mL, Intravenous, q15 min PRN OR glucagon (human recombinant) injection1 mg, 1 mg, Intramuscular, q15 min PRN, Lala Valdes, SUPERINTENDENT DISTRIBUTION divalproex sprinkle (Depakote Sprinkle) DR capsule 250 mg, 250 mg, Oral, BID, Lala Valdes, SUPERINTENDENT DISTRIBUT[employer],250 mg at 10/20/24919 heparin (porcine) injection 5,000 Units, 5,000 Units, Subcutaneous, q8h RAFAT, Lala Valdes APRN, 5,000 Units at 10/19/242014 melatonin tablet 3 mg, 3 mg, Oral, Nightly, Lala Valdes, SUPERINTENDENT DISTRIBUT[employer], 3 mg at 10/19/242013 NIFEdipine XL (Procardia XL) 24 hr tablet 60 mg, 60 mg, Oral, Daily, Leda Gaitan MD, 60 mg at 10/20/24919 polyethylene glycol (Miralax) packet 17 g, 17 g, Oral, BID, Lucio, Gitana B, SUPERINTENDENT DISTRIBUTION, 17 g at 10/20/24919 senna (Senokot) tablet 17.2 mg, 17.2 mg, Oral, Nightly, Lucio, Gitana B, SUPERINTENDENT DISTRIBUTION, 17.2 mg at 10/19/242055 sertraline (Zoloft) tablet 75 mg, 75 mg, Oral, Daily, Lucio, Gitana B, SUPERINTENDENT DISTRIBUTION, 75 mg at 10/20/24 09 Insert peripheral IV, , , Once AND Saline lock IV, , , Once AND sodium chloride 0.9 % flush10 mL, 10 mL, Intravenous, q12h, 10 mL at 10/13/241758 AND sodium chloride 0.9 % flush 10 mL, 10 mL, Intravenous, PRN, Lucio, Gitana B, SUPERINTENDENT DISTRIBUTION traZODone (Desyrel) tablet 100 mg, 100 mg, Oral, Nightly, Lucio, Gitana B, SUPERINTENDENT DISTRIBUTION, 100 mg at 10/19/242013 Facility-Administered Medications Ordered in Other Encounters: lidocaine-EPINEPHrine (PF) (Xylocaine W/EPI) 1 %-1:997618 injection - Pyxis Override Pull, , , , lidocaine-EPINEPHrine (PF) (Xylocaine W/EPI) 1 %-1:415363 injection - Pyxis Override Pull, , , [...] Ongoing, Progressing Intervention: Promote Activity and Functional [place] Flowsheets (Taken 10/19/20242139) Activity Assistance Provided: assistance, 2 people Self-Care Promotion: BADL personal objects within reach BADL personal routines maintained Problem: Infection Goal: Absence of Infection Signs and Symptoms Outcome: Ongoing, Progressing Intervention: Prevent or Manage Infection Flowsheets (Taken 10/19/20242139) Infection Management: aseptic technique maintained Note: Standard precautions maintained Problem: Diabetes Goal: Optimal Coping Outcome: Ongoing Intervention: Support Wellbeing and Self-Management Success Flowsheets [...] from the original note were not included. [facility] Medicine Inpatient Progress Note Patient: Mundo [...] the final edited report. Drafted by Seng Martniez MD on 10/17/2024 2:37 PM Final report signed by Fortunato Willett MD on 10/17/2024 2:49 PM REVIEW OF PROCEDURES Assessment and Plan: Aakash Fernandez is a [place] 64 y.o. male with past history of ESRD on HD MWF, T2DM, HTN, chronic HFrEF, PAD, HLD, IDD/dementia, depression/anxiety, insomnia, chronic HCV, DM foot ulcer c/b OM s/p bilateral transmetarsal amputation, and debility sent from his fpc to ED for medical evaluationafter refusing care. Declining functional status - Transferred to fpc a week ago and since arrival refusing HD, to eat, participate, or take medications - sent to ED for medical evaluation and need for higher level of assist/unable to care for self/non-compliance - afebrile, VSS, no acute complaints PLAN - PT/OT consult re: placement - legal guardian is his brother, Chris Fernandez, #[phone] (not answering calls since patient admission) Essential (primary) hypertension - increased carvedilol to 25 mg twice daily, nifedipine XL 60 mg daily (hold for BP <120/80 on dialysis days) At high risk for falls - wheelchair dependent, fall precautions ESRD (end stage renal disease) on dialysis ([facility]) - HD (MWF) - renally dose meds based on EGFR - strict I/O, daily weight Electrolyte and fluid disorder Hyponatremia Chronic kidney disease-mineral and bone disorder (CKD-MBD) - continue Renvela 800 mg TID with meals Anemia in chronic kidney disease (CODE) - Hgb stable, transfuse to keep >7 Type 2 diabetes mellitus with chronic kidney disease on chronic dialysis [facility] [address] - last A1c 6.3 PLAN - will dc SSI given minimal Insulin need Dementia ([facility]) - Psych recommended; Asenapine 3.8 mg daily [...] melatonin 3 mg at bedtime Arterial insufficiency ([facility] [address]) - continue aspirin 81 mg [...] systolic (congestive) and diastolic (congestive) heart failure ([facility] [address]) - ECHO 06/27/2022: EF 45%, abnormal diastolic dysfunction - strict I/O, 2 L fluid restriction, cardiac/renal/CCHO2 diet Chronic hepatitis C without hepatic coma ([facility]) - HCV RNA PCR not detected 07/13/2023 History of transmetatarsal amputation of foot ([facility]) - chronic OM 2/2 DM foot ulcers s/p bilateral transmetarsal amputation Dispo : pending placement. Per CM- at [facility] indicates patient has been approved for LTC pending [facility] chair. Primary CM/RN will need to arrange transportation to [facility] on Mondayand transportation to/from [place] to outpatient HD will have to be arranged as well. [facility] and then start outpatient HD on 10/23. [1] Current Facility-Administered Medications: acetaminophen (Tylenol) tablet 650 mg, 650 mg, Oral, q6h PRN, Lala Valdes B, [employer], 650 mg at 10/18/24 2100 aspirin chewable tablet 81 mg, 81 mg, Oral, Daily, Lala Valdes, [employer], 81 mg at 10/19/24 0820 atorvastatin (Lipitor) tablet 40 mg, 40 mg, Oral, Nightly, Lala Valdes, [employer], 40 mg at 10/18/24 2100 bisacodyl (Dulcolax) EC tablet 10 mg, 10 mg, Oral, Daily PRN, Lala Valdes, [employer], 10 mg at 10/17/24 0843 cadexomer iodine (Iodosorb) 0.9 % gel, , Topical, Daily, Tana Wooten MD, Given at 10/19/24 0822 carvedilol (Coreg) tablet 25 mg, 25 mg, Oral, BID, Leda Gaitan MD, 25 mg at 10/19/24 0820 clopidogrel (Plavix) tablet 75 mg, 75 mg, Oral, Daily, Lala Valdes, [employer], 75 mg at 10/19/24 0820 glucose (Glutose) [...] Intramuscular, q15 min PRN, Lucio, Gitana B, [employer] divalproex sprinkle (Depakote Sprinkle) DR capsule 250 mg, 250 mg, Oral, BID, Lala Valdes, [employer],250 mg at 10/19/24 0820 heparin (porcine) injection 5,000 Units, 5,000 Units, Subcutaneous, q8h RAFAT, Lala Valdes B, [employer], 5,000 Units at 10/19/24 1323 melatonin tablet 3 mg, 3 mg, Oral, Nightly, Lala Valdes, [employer], 3 mg at 10/18/24 2100 NIFEdipine XL (Procardia XL) 24 hr tablet 60 mg, 60 mg, Oral, Daily, Leda Gaitan MD, 60 mg at 10/19/24 0820 polyethylene glycol (Miralax) packet 17 g, 17 g, Oral, BID, Lala Valdes, [employer], 17 g at 10/19/24 0820 senna (Senokot) tablet 17.2 mg, 17.2 mg, Oral, Nightly PRN, Lala Valdes, [employer], 17.2 mg at 10/16/24 2030 sertraline (Zoloft) tablet 75 mg, 75 mg, Oral, Daily, Lala Valdes, [employer], 75 mg at 10/19/24 0821 Insert peripheral IV, , , Once AND Saline lock IV, , , Once AND sodium chloride 0.9 % flush10 mL, 10 mL, Intravenous, q12h, 10 mL at 10/13/24 1759 AND sodium chloride 0.9 % flush 10 mL, 10 mL, Intravenous, PRN, Lala Valdes B, [employer] traZODone (Desyrel) tablet 100 mg, 100 mg, Oral, Nightly, Lala Valdes B, [employer], 100 mg at 10/18/24 2101 Facility-Administered Medications Ordered in Other Encounters: lidocaine-EPINEPHrine (PF) (Xylocaine W/EPI) 1 %-1:812552 injection - Pyxis Override Pull, , , , lidocaine-EPINEPHrine (PF) (Xylocaine W/EPI) 1 %-1:982296 injection - Pyxis Override Pull, , , [...] Ongoing, Progressing Intervention: Promote Activity and Functional [place] Flowsheets (Taken 10/19/2024 1154) Activity Assistance Provided: [...] Note Mundo Fernandez 64 y.o. male CSN: [id number] Admission: 09/30/2024 3:29 PM Primary Problem: Declining functional status Renal SW finalized pt's outpatient HD arrangements. Pt can start with [facility] on Oct 21 and will need to arrive there at 10:20 AM for admission paperwork. See details below. HD letter emailed to primary CM to give to pt upon discharge. UPDATE: Primary CM/RN will need to arrange transportation to [facility] on Monday and transportation to/from [place] to outpatient HD will have to be arranged as well. Pt may need to get HD at [facility] on Monday and then start outpatient HD on 10/23. SAMUEL Augustin Staff Analyst * Progress Notes - Jeannie Valle MD - 10/18/2024 2:20 PM EDT Images from the original note were not included. [facility] Medicine Inpatient Progress Note Patient: Mundo [...] Assessment and Plan: Aakash Fernandez is a [place] 64 y.o. male with past history of ESRD on HD MWF, T2DM, HTN, chronic HFrEF, PAD, HLD, IDD/dementia, depression/anxiety, insomnia, chronic HCV, DM foot ulcer c/b OM s/p bilateral transmetarsal amputation, and debility sent from his [facility]pc to ED for medical evaluationafter refusing care. Declining functional status - Transferred to fpc a week ago and since arrival refusing HD, to eat, participate, or take medications - sent to ED for medical evaluation and need for higher level of assist/unable to care for self/non-compliance - afebrile, VSS, no acute complaints PLAN - PT/OT consult re: placement - legal guardian is his brother, Chris Fernandez, #[phone] (not answering calls since patient admission) Essential (primary) hypertension - increased carvedilol to 25 mg twice daily, nifedipine XL 60 mg daily (hold for BP <120/80 on dialysis days) At high risk for falls - wheelchair dependent, fall precautions ESRD (end stage renal disease) on dialysis ([facility]) - HD (MWF) - renally dose meds based on EGFR - strict I/O, daily weight Electrolyte and fluid disorder Hyponatremia Chronic kidney disease-mineral and bone disorder (CKD-MBD) - continue Renvela 800 mg TID with meals Anemia in chronic kidney disease (CODE) - Hgb stable, transfuse to keep >7 Type 2 diabetes mellitus with chronic kidney disease on chronic dialysis ([facility] [facility] - last A1c 6.3 PLAN - will dc SSI given minimal Insulin need Dementia ([facility]) - Psych recommended; Asenapine 3.8 mg daily [...] melatonin 3 mg at bedtime Arterial insufficiency ([facility] [facility]) - continue aspirin 81 mg [...] transmetarsal amputation Dispo : pending placement. Per - at [facility] indicates patient has been approved for LTC pending [facility] chair. [phone] [facility] requesting a [facility], TB clearence, Hepatitis B Total Core Antibody (HbcAb) [1] Current Facility-Administered Medications: acetaminophen (Tylenol) tablet 650 mg, 650 mg, Oral, q6h PRN, Lala Valdes B, [employer], 650 mg at 10/17/242012 aspirin chewable tablet 81 mg, 81 mg, Oral, Daily, Lala Valdes B, [employer], 81 mg at 10/18/24 1318 atorvastatin (Lipitor) tablet 40 mg, 40 mg, Oral, Nightly, Laith Valdesana B, [employer], 40 mg at 10/17/242013 bisacodyl (Dulcolax) EC tablet 10 mg, 10 mg, Oral, Daily PRN, Lala Valdes B, [employer], 10 mg at 10/17/24 0843 cadexomer iodine (Iodosorb) 0.9 % gel, , Topical, Daily, Tana Wooten MD, Given at 10/18/24 1330 carvedilol (Coreg) tablet 25 mg, 25 mg, Oral, BID, Leda Gaitan MD, 25 mg at 10/18/24 1318 clopidogrel (Plavix) tablet 75 mg, 75 mg, Oral, Daily, Lala Valdes B, [employer], 75 mg at 10/18/24 1320 glucose (Glutose) [...] Intramuscular, q15 min PRN, Lala Valdes B, [employer] divalproex sprinkle (Depakote Sprinkle) DR capsule 250 mg, 250 mg, Oral, BID, Lala Valdes, [employer],250 mg at 10/18/24 1318 heparin (porcine) injection 5,000 Units, 5,000 Units, Subcutaneous, q8h RAFAT, Lala Valdes [employer], 5,000 Units at 10/18/24 1333 melatonin tablet 3 mg, 3 mg, Oral, Nightly, Lala Valdes, [employer], 3 mg at 10/17/242013 NIFEdipine XL (Procardia XL) 24 hr tablet 60 mg, 60 mg, Oral, Daily, Leda Gaitan MD, 60 mg at 10/18/24 1318 polyethylene glycol (Miralax) packet 17 g, 17 g, Oral, BID, Lala Valdes, [employer], 17 g at 10/18/24 1317 senna (Senokot) tablet 17.2 mg, 17.2 mg, Oral, Nightly PRN, Lala Valdes, [employer], 17.2 mg at 10/16/24 2030 sertraline (Zoloft) tablet 75 mg, 75 mg, Oral, Daily, Lala Valdes, [employer], 75 mg at 10/18/24 1317 Insert peripheral IV, , , Once AND Saline lock IV, , , Once AND sodium chloride 0.9 % flush10 mL, 10 mL, Intravenous, q12h, 10 mL at 10/13/24 1759 AND sodium chloride 0.9 % flush 10 mL, 10 mL, Intravenous, PRN, Lala Valdes B, [employer] traZODone (Desyrel) tablet 100 mg, 100 mg, Oral, Nightly, Lala Valdes, [employer], 100 mg at 10/17/242012 Facility-Administered Medications Ordered [...] Progressing Flowsheets Taken 10/18/2024 1230 by Marilee Zamora RN Progress: improving Outcome [...] Ongoing, Progressing Intervention: Promote Activity and Functional [place] Flowsheets (Taken 10/18/2024 1230) Activity Assistance Provided: [...] cerebral artery ESRD (end stage renal disease) ([facility] [facility]) Medications: Current Medications: Current Scheduled [...] bilateral transmetarsal amputation, and debility presented to [facility] on 09/30 after refusing care at his fpc. Nephrology consulted for dialysis. Assessment: #ESRD on iHD - MWF at [facility] Dr[facility] Lucas - AccesS: ISAURO VELA - [...] from the original note were not included. [facility] Medicine Inpatient Progress Note Patient: Mundo [...] Assessment and Plan: Aakash Fernandez is a [place] 64 y.o. male with past history of ESRD on HD MWF, T2DM, HTN, chronic HFrEF, PAD, HLD, IDD/dementia, depression/anxiety, insomnia, chronic HCV, DM foot ulcer c/b OM s/p bilateral transmetarsal amputation, and debility sent from his fpc to ED for medical evaluationafter refusing care. Declining functional status - Transferred to fpc a week ago and since arrival refusing HD, to eat, participate, or take medications - sent to ED for medical evaluation and need for higher level of assist/unable to care for self/non-compliance - afebrile, VSS, no acute complaints PLAN - PT/OT consult re: placement - legal guardian is his brother, Chris Fernandez, #[phone] (not answering calls since patient admission) Essential (primary) hypertension - increased carvedilol to 25 mg twice daily, nifedipine XL 60 mg daily (hold for BP <120/80 on dialysis days) At high risk for falls - wheelchair dependent, fall precautions ESRD (end stage renal disease) on dialysis ([facility] [facility] - HD (MWF) - renally dose meds based on EGFR - strict I/O, daily weight Electrolyte and fluid disorder Hyponatremia Chronic kidney disease-mineral and bone disorder (CKD-MBD) - continue Renvela 800 mg TID with meals Anemia in chronic kidney disease (CODE) - Hgb stable, transfuse to keep >7 Type 2 diabetes mellitus with chronic kidney disease on chronic dialysis ([facility] [facility]) - last A1c 6.3 PLAN - will dc SSI given minimal Insulin need Dementia ([facility]) - Psych recommended; Asenapine 3.8 [...] melatonin 3 mg at bedtime Arterial insufficiency ([facility] [facility]) - continue aspirin 81 mg daily, clopidogrel [...] systolic (congestive) and diastolic (congestive) heart failure ([facility]) - ECHO 06/27/2022: EF 45%, abnormal diastolic dysfunction - strict I/O, 2 L fluid restriction, cardiac/renal/CCHO2 diet Chronic hepatitis C without hepatic coma ([facility] [facility]) - HCV RNA PCR not detected 07/13/2023 History of transmetatarsal amputation of foot ([facility]) - chronic OM 2/2 DM foot ulcers s/p bilateral transmetarsal amputation Dispo : pending placement. Per CM- at [facility] indicates patient has been approved for LTC pending [facility] chair. [facility] [phone] [facility] requesting a CXR, TB clearence, Hepatitis B Total Core Antibody (HbcAb) [1] Current Facility-Administered Medications: acetaminophen (Tylenol) tablet 650 mg, 650 mg, Oral, q6h PRN, Lucio, Gitana B, [employer] aspirin chewable tablet 81 mg, 81 mg, Oral, Daily, Lucio, Gitana B, [employer], 81 mg at 10/17/24 0843 atorvastatin (Lipitor) tablet 40 mg, 40 mg, Oral, Nightly, Lala Valdes, [employer], 40 mg at 10/16/24 2030 bisacodyl (Dulcolax) EC tablet 10 mg, 10 mg, Oral, Daily PRN, Lala Valdes, [employer], 10 mg at 10/17/24 0843 cadexomer iodine (Iodosorb) 0.9 % gel, , Topical, Daily, Tana Wooten MD, Given at 10/16/24 1313 carvedilol (Coreg) tablet 25 mg, 25 mg, Oral, BID, Leda Gaitan MD, 25 mg at 10/17/24 0843 clopidogrel (Plavix) tablet 75 mg, 75 mg, Oral, Daily, Lala Valdes, [employer], 75 mg at 10/17/24 0842 glucose (Glutose) 40 % oral gel 15-30 grams of glucose, 15-30 grams of glucose, Sublingual, q15 minPRN OR dextrose 10 % (D10W) bolus 125 mL, 125 mL, Intravenous, q15 min PRN OR dextrose 10 %(D10W) bolus 250 mL, 250 mL, Intravenous, q15 min PRN OR glucagon (human recombinant) injection1 mg, 1 mg, Intramuscular, q15 min PRN, Lala Valdes, [employer] divalproex sprinkle (Depakote Sprinkle) DR capsule 250 mg, 250 mg, Oral, BID, Lala Valdes, [employer],250 mg at 10/17/24 0843 heparin (porcine) injection 5,000 Units, 5,000 Units, Subcutaneous, q8h RAFAT, Lala Valdes, [employer], 5,000 Units at 10/17/24 1426 melatonin tablet 3 mg, 3 mg, Oral, Nightly, Lala Valdes, [employer], 3 mg at 10/16/24 2030 NIFEdipine XL (Procardia XL) 24 hr tablet 60 mg, 60 mg, Oral, Daily, Leda Gaitan MD, 60 mg at 10/17/24 0843 polyethylene glycol (Miralax) packet 17 g, 17 g, Oral, BID, Lucio, Gitana B, [employer], 17 g at 10/17/24 0843 senna (Senokot) tablet 17.2 mg, 17.2 mg, Oral, Nightly PRN, Lucio, Gitana B, [employer], 17.2 mg at 10/16/24 2030 sertraline (Zoloft) tablet 75 mg, 75 mg, Oral, Daily, Lucio, Gitana B, [employer], 75 mg at 10/17/24 0842 Insert peripheral IV, , , Once AND Saline lock IV, , , Once AND sodium chloride 0.9 % flush10 mL, 10 mL, Intravenous, q12h, 10 mL at 10/13/24 1759 AND sodium chloride 0.9 % flush 10 mL, 10 mL, Intravenous, PRN, Lucio, Gitana B, [employer] traZODone (Desyrel) tablet 100 mg, 100 mg, Oral, Nightly, Lucio, Gitana B, [employer], 100 mg at 10/16/24 2030 Facility-Administered Medications Ordered in Other Encounters: lidocaine-EPINEPHrine (PF) (Xylocaine W/EPI) 1 %-1:321257 injection - Pyxis Override Pull, , , , lidocaine-EPINEPHrine (PF) (Xylocaine W/EPI) 1 %-1:012479 injection - Pyxis Override Pull, , , , [2] No Known Allergies * Progress Notes - Birdie Damico RN - 10/17/2024 1:17 PM EDT Brooke, admissions liaison at [facility] indicates patient has been approved for LTC pending [facility] chair. [facility] [phone] is requesting a CXR, TB clearence,Hepatitis B Total Core Antibody (HbcAb). Team MD made aware. Birdie Damico RN * Care Plan - Goldie Marcial RN - 10/17/2024 11:44 AM EDT Problem: Adult Inpatient Plan of Care Goal: Plan of Care Review Outcome: Ongoing, Progressing Flowsheets (Taken 10/17/2024 1142) Plan of Care Reviewed With: patient Goal: Patient-Specific Goal (Individualized) Outcome: Ongoing, Progressing Flowsheets (Taken 10/17/2024 08) Patient/Family-Specific Goals (Include Timeframe): patient will remain [...] Progressing Intervention: Provide Person-Centered Care Flowsheets (Taken 10/17/2024799) Trust Relationship/Rapport: care explained reassurance provided Goal: Readiness for Transition of Care Outcome: Ongoing, Progressing Intervention: Mutually Develop Transition Plan Flowsheets (Taken 10/17/2024 1142) Current Outpatient/Agency/Support Group: fpc Readmission Within the Last 30 Days: unable to assess Problem: Skin Injury Risk Increased Goal: Skin Health and Integrity Outcome: Ongoing, Progressing Problem: Fall Injury Risk Goal: Absence of Fall and Fall-Related Injury Outcome: Ongoing, Progressing Intervention: Promote Injury-Free Environment Flowsheets (Taken 10/17/2024799) Safety Promotion/Fall Prevention: activity supervised assistive device/personal [...] Optimize Functional Ability Flowsheets Taken 10/17/2024799 by oGldie Marcial, RN Activity Management: activity adjusted per [...] ESRD (end stage renal disease) on dialysis ([facility]) Essential (primary) hypertension Type 2 diabetes mellitus with chronic kidney disease on chronic dialysis ([facility] [facility]) Wears hearing aid in both ears At high risk for falls Insomnia, unspecified Chronic combined systolic (congestive) and diastolic (congestive) heart failure ([facility] [facility]) Dementia ([facility]) Chronic hepatitis C without hepatic coma ([facility]) Arterial insufficiency ([facility]) Gastroesophageal reflux disease without esophagitis Mixed hyperlipidemia Anxiety and depression Mild intellectual disabilities Sensorineural hearing loss, bilateral History of transmetatarsal amputation of foot ([facility]) Electrolyte and fluid disorder Anemia in chronic kidney disease (CODE) 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 Nephrology consulted for dialysis. Assessment: #ESRD on iHD - MWF at [facility] [address] Lucas - AccesS: ISAURO AVG - EDW 65.5 Kg #HTN #Renal [...] Optimize Device Care and Function Flowsheets (Taken 10/16/20242319) Medication Review/Management: medications reviewed Goal: Effective Tissue Perfusion Outcome: Ongoing, Progressing Intervention: Optimize Blood Flow Flowsheets (Taken 10/16/20242319) Stabilization Measures: legs elevated Goal: Absence of Infection Signs and Symptoms Outcome: Ongoing, Progressing Intervention: Prevent or Manage Infection Flowsheets (Taken 10/16/2024 2320) Infection Management: aseptic technique maintained Fever Reduction/Comfort Measures: lightweight bedding lightweight clothing Infection Prevention: rest/sleep promoted hand hygiene promoted Problem: Self-Care Deficit Goal: Improved Ability to Complete Activities of Daily Living Outcome: Ongoing, Progressing Intervention: Promote Activity and Functional [place] Flowsheets Taken 10/16/20242319 Self-Care Promotion: independence encouraged BADL personal objects within reach Taken 10/16/20241999 Activity Assistance Provided: assistance, 2 people Problem: Infection Goal: Absence of Infection Signs and Symptoms Outcome: Ongoing, Progressing Intervention: Prevent or Manage Infection Flowsheets Taken 10/16/2024 2320 Infection Management: aseptic technique maintained Fever Reduction/Comfort Measures: lightweight bedding lightweight clothing Taken 10/16/20241999 Isolation Precautions: precautions maintained Problem: Diabetes Goal: Optimal Coping Outcome: Ongoing, Progressing Intervention: Support Wellbeing and Self-Management Success Flowsheets (Taken 10/16/2024 2320) Supportive Measures: active listening utilized self-care encouraged [...] Intervention: Optimize Glycemic Control Flowsheets (Taken 10/16/2024 2320) Hyperglycemia Management: blood glucose monitored Goal: Minimize Hypoglycemia Risk Outcome: Ongoing, Progressing Intervention: Minimize and Manage Hypoglycemia Flowsheets (Taken 10/16/2024 2320) Hypoglycemia Management: blood glucose monitored Problem: Mobility Impairment Goal: Optimal Mobility Outcome: Ongoing, Progressing Intervention: Optimize Mobility Flowsheets Taken 10/16/20240 Positioning/Transfer Devices: pillows in use Taken 10/16/20241999 [...] Identify and Manage Contributors Flowsheets (Taken 10/16/2024 1535) Medication Review/Management: medications reviewed Self-Care Promotion: independence [...] Intervention: Optimize Blood Flow Flowsheets (Taken 10/16/2024 153) Stabilization Measures: legs elevated Goal: Absence of Infection Signs and Symptoms Outcome: Ongoing, Progressing Intervention: Prevent or Manage Infection Flowsheets (Taken 10/16/2024 1535) Infection Management: aseptic technique maintained Fever Reduction/Comfort Measures: lightweight bedding lightweight clothing Infection Prevention: hand hygiene promoted rest/sleep promoted Problem: Self-Care Deficit Goal: Improved Ability to Complete Activities of Daily Living Outcome: Ongoing, Progressing Intervention: Promote Activity and Functional [place] Flowsheets (Taken 10/16/2024 1535) Activity Assistance Provided: [...] Wellbeing and Self-Management Success Flowsheets (Taken 10/16/2024 153) Supportive Measures: active listening utilized relaxation techniques [...] Note Mundo Fernandez 64 y.o. male CSN: [id number] Admission: 09/30/2024 3:29 PM Primary Problem: Declining functional status CM received message from [facility] admissions liaison stating patient has been approved for admission pending getting an established HD chair. HD medical social worker made aware. HD referral sent to [facility] with tracking number [id number]. CM will continue to follow and will arrange discharge transportation when needed. Birdie Damico RN * Progress Notes - Jeannie Valle MD - 10/16/2024 1:22 PM EDT Images from the original note were not included. [facility] Medicine Inpatient Progress Note Patient: Mundo [...] Assessment and Plan: Aakash Fernandez is a [place] 64 y.o. male with past history of ESRD on HD MWF, T2DM, HTN, chronic HFrEF, PAD, HLD, IDD/dementia, depression/anxiety, insomnia, chronic HCV, DM foot ulcer c/b OM s/p bilateral transmetarsal amputation, and debility sent from his [facility] to ED for medical evaluationafter refusing care. Declining functional status - Transferred to [facility]pc a week ago and since arrival refusing HD, to eat, participate, or take medications - sent to ED for medical evaluation and need for higher level of assist/unable to care for self/non-compliance - afebrile, VSS, no acute complaints PLAN - PT/OT consult re: placement - legal guardian is his brother, Chris Fernandez, #[phone] (not answering calls since patient admission) Essential (primary) hypertension - increased carvedilol to 25 mg twice daily, nifedipine XL 60 mg daily (hold for BP <120/80 on dialysis days) At high risk for falls - wheelchair dependent, fall precautions ESRD (end stage renal disease) on dialysis ([facility] - HD (MWF) - renally dose meds based on EGFR - strict I/O, daily weight Electrolyte and fluid disorder Hyponatremia Chronic kidney disease-mineral and bone disorder (CKD-MBD) - continue Renvela 800 mg TID with meals Anemia in chronic kidney disease (CODE) - Hgb stable, transfuse to keep >7 Type 2 diabetes mellitus with chronic kidney disease on chronic dialysis ([facility]) - last A1c 6.3 PLAN - will dc SSI given minimal Insulin need Dementia ([facility]) - Psych recommended; Asenapine 3.8 [...] melatonin 3 mg at bedtime Arterial insufficiency ([facility]) - continue aspirin 81 mg [...] systolic (congestive) and diastolic (congestive) heart failure ([facility]) - ECHO 06/27/2022: EF 45%, abnormal diastolic dysfunction - strict I/O, 2 L fluid restriction, cardiac/renal/CCHO2 diet Chronic hepatitis C without hepatic coma ([facility]) - HCV RNA PCR not detected 07/13/2023 History of transmetatarsal amputation of foot ([facility]) - chronic OM 2/2 DM foot ulcers s/p bilateral transmetarsal amputation Dispo : pending placement. [1] Current Facility-Administered Medications: acetaminophen (Tylenol) tablet 650 mg, 650 mg, Oral, q6h PRN, Llaa Valdes B, [employer] alteplase (Cathflo Activase) injection 4 mg, 4 mg, Intracatheter, PRN, Daphne Landry APRN, DNP alteplase (Cathflo Activase) injection 4 mg, 4 mg, Intracatheter, PRN, Daphne Landry APRN, DNP alteplase (Cathflo Activase) injection 4 mg, 4 mg, Intracatheter, PRN, Daphne Landry APRN, DNP aspirin chewable tablet 81 mg, 81 mg, Oral, Daily, Lala Valdes, [employer], 81 mg at 10/16/241312 atorvastatin (Lipitor) tablet 40 mg, 40 mg, Oral, Nightly, Lala Valdes, [employer], 40 mg at 10/15/242036 bisacodyl (Dulcolax) EC tablet 10 mg, 10 mg, Oral, Daily PRN, Lala Valdes, [employer], 10 mg at 10/15/24 0607 cadexomer iodine (Iodosorb) 0.9 % gel, , Topical, Daily, Tana Wooten MD, Given at 10/16/241312 carvedilol (Coreg) tablet 25 mg, 25 mg, Oral, BID, Leda Gaitan MD, 25 mg at 10/16/241312 clopidogrel (Plavix) tablet 75 mg, 75 mg, Oral, Daily, Lala Valdes, [employer], 75 mg at 10/16/241312 glucose (Glutose) 40 % oral gel 15-30 grams of glucose, 15-30 grams of glucose, Sublingual, q15 minPRN OR dextrose 10 % (D10W) bolus 125 mL, 125 mL, Intravenous, q15 min PRN OR dextrose 10 %(D10W) bolus 250 mL, 250 mL, Intravenous, q15 min PRN OR glucagon (human recombinant) injection1 mg, 1 mg, Intramuscular, q15 min PRN, Lala Valdes, [employer] divalproex sprinkle (Depakote Sprinkle) DR capsule 250 mg, 250 mg, Oral, BID, Lala Valdes, [employer],250 mg at 10/16/241312 heparin (porcine) injection 5,000 Units, 5,000 Units, Subcutaneous, q8h RAFAT, Lala Valdes [employer], 5,000 Units at 10/16/241316 melatonin tablet 3 mg, 3 mg, Oral, Nightly, Lala Valdes, [employer], 3 mg at 10/15/242036 NIFEdipine XL (Procardia XL) 24 hr tablet 60 mg, 60 mg, Oral, Daily, Leda Gaitan MD, 60 mg at 07/30/25 1313 polyethylene glycol (Miralax) packet 17 g, 17 g, Oral, BID, Lucio, Gitana B, [employer], 17 g at 10/16/24 1313 senna (Senokot) tablet 17.2 mg, 17.2 mg, Oral, Nightly PRN, Lucio, Gitana B, [employer], 17.2 mg at 10/15/242146 sertraline (Zoloft) tablet 75 mg, 75 mg, Oral, Daily, Lucio, Gitana B, [employer], 75 mg at 10/16/24 1313 Insert peripheral IV, , , Once AND Saline lock IV, , , Once AND sodium chloride 0.9 % flush10 mL, 10 mL, Intravenous, q12h, 10 mL at 10/13/24 1759 AND sodium chloride 0.9 % flush 10 mL, 10 mL, Intravenous, PRN, Lucio, Gitana B, [employer] sodium citrate anticoagulant 4 % flush 6 mL, 6 mL, Intracatheter, PRN, Rust, Daphne L, [employer], DNP sodium citrate anticoagulant 4 % flush 6 mL, 6 mL, Intracatheter, PRN, Rust, Daphne L, [employer], DNP sodium citrate anticoagulant 4 % flush 6 mL, 6 mL, Intracatheter, PRN, Rust, Daphne L, [employer], DNP traZODone (Desyrel) tablet 100 mg, 100 mg, Oral, Nightly, Lucio, Gitana B, [employer], 100 mg at 10/15/242036 Facility-Administered Medications Ordered in Other Encounters: lidocaine-EPINEPHrine (PF) (Xylocaine W/EPI) 1 %-1:032973 injection - Pyxis Override Pull, , , , lidocaine-EPINEPHrine (PF) (Xylocaine W/EPI) 1 %-1:026426 injection - Pyxis Override Pull, , , [...] with chronic kidney disease on chronic dialysis ([facility]) Wears hearing aid in both ears At [...] cerebral artery ESRD (end stage renal disease) ([facility]) Medications: Current Medications: Current Scheduled [...] bilateral transmetarsal amputation, and debility presented to [facility] on 09/30 after refusing care at his fpc. Nephrology consulted for dialysis. Assessment: #ESRD on iHD - MWF at [facility] [address] Dr[address] Lucas - AccesS: ISAURO [...] Review Outcome: Ongoing, Progressing Flowsheets (Taken 10/16/2024 0230) Progress: improving Plan of Care Reviewed With: [...] adjusted Intervention: Prevent Skin Injury Flowsheets Taken 10/16/2024 0230 Skin Protection: incontinence pads utilized Taken 10/15/20241999 Body Position: heels elevated turned Intervention: Prevent and Manage VTE (Venous Thromboembolism) Risk Flowsheets (Taken 10/15/20241999) VTE Prevention/Management: medication Intervention: Prevent Infection Flowsheets (Taken 10/16/2024 0230) Infection Prevention: hand hygiene promoted rest/sleep promoted Problem: Skin Injury Risk Increased Goal: Skin Health and Integrity Outcome: Ongoing, Progressing Intervention: Optimize Skin Protection Flowsheets Taken 10/16/2024 023 Pressure Reduction Techniques: frequent weight shift encouraged [...] Intervention: Optimize Skin Protection Flowsheets Taken 10/16/2024 023 Pressure Reduction Techniques: frequent weight shift encouraged [...] Device Care and Function Flowsheets (Taken 10/16/2024 0230) Medication Review/Management: medications reviewed Goal: Effective Tissue Perfusion Outcome: Ongoing, Progressing Intervention: Optimize Blood Flow Flowsheets (Taken 10/16/2024 0230) Stabilization Measures: legs elevated Goal: Absence of Infection Signs and Symptoms Outcome: Ongoing, Progressing Intervention: Prevent or Manage Infection Flowsheets (Taken 10/16/2024 023) Infection Management: aseptic technique maintained Fever Reduction/Comfort Measures: lightweight bedding lightweight clothing Infection Prevention: hand hygiene promoted rest/sleep promoted Problem: Self-Care Deficit Goal: Improved Ability to Complete Activities of Daily Living Outcome: Ongoing, Progressing Intervention: Promote Activity and Functional [place] Flowsheets (Taken 10/16/2024 0230) Activity Assistance Provided: assistance, 2 people Self-Care [...] Wellbeing and Self-Management Success Flowsheets (Taken 10/16/2024 023) Supportive Measures: active listening utilized self-care encouraged Family/Support System Care: support provided Goal: Optimal Functional Ability Outcome: Ongoing, Progressing Intervention: Optimize Functional Ability Flowsheets Taken 10/16/2024 023 Activity Assistance Provided: assistance, 2 people Self-Care [...] 2:21 PM EDT CM followed up with [facility] admissions liaison, Brooke and found they are able to accept [...] per week. CM sent referral to HD medical social worker to arrange HD chair near [place], [place]. CM will discuss transportation to and from HD clinic with facility admissions. CM will arrange transportation to facility when needed. Birdie Damico RN * Care Plan - April Merida RN - 10/15/2024 2:18 PM EDT Problem: Adult Inpatient Plan of Care Goal: Plan of Care Review 10/15/20241411 by April Merida RN Outcome: Ongoing, Not Progressing Flowsheets (Taken 10/15/2024 141) Progress: improving Outcome Evaluation: Patient will have a BM this shift Plan of Care Reviewed With: patient 10/15/2024 1233 by April Merida RN Outcome: Ongoing, Progressing Goal: Patient-Specific Goal (Individualized) 10/15/2024 141 by April Merida RN Outcome: Ongoing, Not Progressing Flowsheets (Taken 10/15/2024 0800) Patient/Family-Specific Goals (Include Timeframe): patient will remain ree from harm throughout theshift Individualized Care Needs: safety Anxieties, Fears or Concerns: none stated 10/15/2024 1233 by April Merida RN Outcome: Ongoing, Progressing Goal: Absence of Hospital-Acquired Illness or Injury 10/15/2024 1412 by April Merida RN Outcome: [...] promoted Goal: Optimal Comfort and Wellbeing 10/15/2024 141 by April Meirda, TRISTIN Outcome: Ongoing, Not Progressing 10/15/2024 1233 [...] and Integrity 10/15/2024 1412 by April Merida, RN Outcome: Ongoing, Not Progressing 10/15/2024 1233 [...] Wound Goal: Skin Health and Integrity 10/15/2024 1412 [...] Merida RN Outcome: Ongoing, Progressing Intervention: Promote Wound Healing Flowsheets (Taken 10/15/2024 1412) Sleep/Rest Enhancement: awakenings minimized Problem: Hemodialysis Goal: Safe, Effective Therapy Delivery 10/15/2024 1412 by April Merida RN Outcome: Ongoing, Not Progressing 10/15/2024 1233 by April Merida RN Outcome: Ongoing, Progressing Intervention: Optimize Device Care and Function Flowsheets (Taken 10/15/2024 1412) Medication Review/Management: medications reviewed Goal: Effective Tissue Perfusion 10/15/2024 1412 by April Merida RN Outcome: Ongoing, Not Progressing 10/15/2024 1233 by April Merida RN Outcome: Ongoing, Progressing Intervention: Optimize Blood Flow Flowsheets (Taken 10/15/2024 1412) Stabilization Measures: legs elevated Goal: Absence of [...] to Complete Activities of Daily Living 10/15/2024 1412 by April Merida RN Outcome: Ongoing, Not Progressing 10/15/2024 1233 by April Merida RN Outcome: Ongoing, Progressing Intervention: Promote Activity and Functional [place] Flowsheets (Taken 10/15/2024 1412) Activity Assistance Provided: assistance, 2 people Adaptive Equipment Use: use encouraged Self-Care Promotion: independence encouraged BADL personal objects within reach Problem: Infection Goal: Absence of Infection Signs and Symptoms 10/15/2024 1412 by April Merida RN Outcome: Ongoing, Not Progressing 10/15/2024 1233 by April Merida RN Outcome: Ongoing, Progressing Intervention: Prevent or Manage Infection Flowsheets (Taken 10/15/2024 1412) Infection Management: aseptic technique maintained Fever Reduction/Comfort Measures: lightweight bedding lightweight clothing Isolation Precautions: precautions initiated Problem: Diabetes Goal: Optimal Coping 10/15/2024 1412 by April Merida RN Outcome: Ongoing, Not Progressing 10/15/2024 1233 by April Merida RN Outcome: Ongoing, Progressing Intervention: Support Wellbeing and Self-Management Success Flowsheets (Taken 10/15/2024 1412) Supportive Measures: active listening utilized self-care encouraged Family/Support System Care: support provided Goal: Optimal Functional Ability 10/15/2024 1412 by April Merida RN Outcome: [...] Minimize Hypoglycemia Risk 10/15/2024 1412 by April Merida RN Outcome: Ongoing, Not Progressing 10/15/2024 1233 by April Merida RN Outcome: Ongoing, Progressing Intervention: Minimize and Manage Hypoglycemia Flowsheets (Taken 10/15/2024 1412) Hypoglycemia Management: blood glucose monitored Problem: Mobility Impairment Goal: Optimal Mobility 10/15/2024 1412 by April Merida, TRISTIN Outcome: [...] Glucose 98 74 - 99 mg/dL Comment Exhaust Emissions Automotive Technician ID Moisés Lopez Device ID [id number] Specimen Type POC Capillary POCT glucose meter Collection Time: 10/14/24 8:01 PM Result Value Ref Range POCT Glucose 186 (H) 74 - 99 mg/dL Comment Exhaust Emissions Automotive Technician ID Matty Jeffries Device ID [id number] Specimen Type POC Capillary POCT glucose meter Collection Time: 10/15/24 8:04 AM Result Value Ref Range POCT Glucose 101 (H) 74 - 99 mg/dL Comment Exhaust Emissions Automotive Technician ID Lio Gomez Device ID [id number] Specimen Type POC Capillary POCT glucose meter Collection Time: 10/15/24 12:06 PM Result Value Ref Range POCT Glucose 115 (H) 74 - 99 mg/dL Comment Exhaust Emissions Automotive Technician ID Lio Gomez Device ID [id number] Specimen Type POC Capillary Encounter Date: 09/30/24 EKG now - STAT (adult) Result Value EKG DIAGNOSIS CLASS Abnormal Ventricular Rate 70 Atrial Rate 70 ID Interval 154 QRSD Interval 106 QT Interval 430 QTC Interval 464 P Drif[place] 69 R Drif[place] -23 T Wave [place] 5 Diagnosis Normal sinus rhythm Diagnosis Nonspecific [...] IDD/dementia, anxiety, and depression who presented to [facility] ED from facility ([facility]pc) with concerns of non-adherence to medication regimen [...] to first call physician/provider: Dr. Valle via [employer] chat Patient staffed with attending, Dr. Jon Gallardo MD PGY-3, Internal Medicine/Psychiatry Note to patient: The Century Cures Act [...] ESRD (end stage renal disease) on dialysis ([facility]) Essential (primary) hypertension Type 2 diabetes mellitus with chronic kidney disease on chronic dialysis ([facility]) Wears hearing aid in both ears At high risk for falls Insomnia, unspecified Chronic combined systolic (congestive) and diastolic (congestive) heart failure (CMS/HCC) Dementia ([facility]HCC) Chronic hepatitis C without hepatic coma ([facility]) Arterial insufficiency ([facility]) BPH (benign prostatic hyperplasia) Diabetic peripheral neuropathy ([facility]/HCC) DM type 2 without retinopathy ([facility]) Gastroesophageal reflux disease without esophagitis Mixed hyperlipidemia Hypoparathyroidism Anxiety and depression Mild intellectual disabilities Sensorineural hearing loss, bilateral Non-ischemic cardiomyopathy (CMS/HCC) Chronic osteomyelitis ([facility]) Declining functional status History of transmetatarsal amputation of foot ([facility]) Electrolyte and fluid disorder Anemia in chronic kidney disease (CODE) Chronic kidney disease-mineral and bone disorder (CKD-MBD) 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 Non-pressure 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 limited to breakdown of skin ([facility]/HCC) Non-pressure chronic ulcer of right heel and midfoot limited to breakdown of skin ([facility]HCC) ESRD (end stage renal disease) ([facility]) Cosigned by Yeny Webb DO [...] Right (Active) Date First Assessed/Time First Assessed: 09/30/240 Present on Original Admission: Yes Hand Hygiene Completed: Yes Primary Wound Type: Diabetic Ulcer Location: Heel Wound Location Orientation: Right Assessments 10/15/2024 9:25 AM Wound Image Wound Assessment [place];Granulation Margins Well-defined edges;Open Edges Sydni-Wound Assessment Clean;Dry;Calloused [...] from the original note were not included. [facility] Inpatient Progress Note Patient: Mundo Fernandez [...] Minimally verbal HENT: Head: Normocephalic. Comments: Very [place], some times sin actions help to communicate [...] Assessment and Plan: Aakash Fernandez is a [place] 64 y.o. male with past history of ESRD on HD MWF, T2DM, HTN, chronic HFrEF, PAD, HLD, IDD/dementia, depression/anxiety, insomnia, chronic HCV, DM foot ulcer c/b OM s/p bilateral transmetarsal amputation, and debility sent from his [facility]pc to ED for medical evaluationafter refusing care. Declining functional status - Transferred to fpc a week ago and since arrival refusing HD, to eat, participate, or take medications - sent to ED for medical evaluation and need for higher level of assist/unable to care for self/non-compliance - afebrile, VSS, no acute complaints PLAN - PT/OT consult re: placement - legal guardian is his brother, Chris Fernandez, #[phone] (not answering calls since patient admission) Essential (primary) hypertension - increased carvedilol to 25 mg twice daily, nifedipine XL 60 mg daily (hold for BP <120/80 on dialysis days) At high risk for falls - wheelchair dependent, fall precautions ESRD (end stage renal disease) on dialysis ([facility]) - HD (MWF) - renally dose meds based on EGFR - strict I/O, daily weight Electrolyte and fluid disorder Hyponatremia Chronic kidney disease-mineral and bone disorder (CKD-MBD) - continue Renvela 800 mg TID with meals Anemia in chronic kidney disease (CODE) - Hgb stable, transfuse to keep >7 Type 2 diabetes mellitus with chronic kidney disease on chronic dialysis ([facility]) - last A1c 6.3 PLAN - will dc SSI given minimal Insulin need Dementia ([facility]) - Psych recommended; Asenapine 3.8 [...] 650 mg, Oral, q6h PRN, Lala Valdes [employer] alteplase (Cathflo Activase) injection 4 mg, 4 mg, Intracatheter, PRN, Daphne Landry APRN, ADA Asenapine 3.8mg/24 hr patch, 1 patch, Transdermal, q24h, Leda Gaitan MD, 1 patchat 10/14/24 1649 aspirin chewable tablet 81 mg, 81 mg, Oral, Daily, Lala Valdes, [employer], 81 mg at 10/15/24 0911 atorvastatin (Lipitor) tablet 40 mg, 40 mg, Oral, Nightly, Lala Valdes, [employer], 40 mg at 10/14/24 2047 bisacodyl (Dulcolax) EC tablet 10 mg, 10 mg, Oral, Daily PRN, Lala Valdes, [employer], 10 mg at 10/15/24 0607 cadexomer iodine (Iodosorb) 0.9 % gel, , Topical, Daily, Tana Wooten MD, Given at 10/15/24 0911 carvedilol (Coreg) tablet 25 mg, 25 mg, Oral, BID, Leda Gaitan MD, 25 mg at 10/15/24 09 clopidogrel (Plavix) tablet 75 mg, 75 mg, Oral, Daily, Lala Valdes APRN, 75 mg at 10/15/24 0911 glucose (Glutose) 40 % oral gel 15-30 grams of glucose, 15-30 grams of glucose, Sublingual, q15 minPRN OR dextrose 10 % (D10W) bolus 125 mL, 125 mL, Intravenous, q15 min PRN OR dextrose 10 %(D10W) bolus 250 mL, 250 mL, Intravenous, q15 min PRN OR glucagon (human recombinant) injection1 mg, 1 mg, Intramuscular, q15 min PRN, Lala Valdes [employer] divalproex sprinkle (Depakote Sprinkle) DR capsule 250 mg, 250 mg, Oral, BID, Lala Valdes APRN,250 mg at 10/15/24 09 heparin (porcine) injection 5,000 Units, 5,000 Units, Subcutaneous, q8h RAFAT, Lala Valdes APRN, 5,000 Units at 10/15/24 0605 melatonin tablet 3 mg, 3 mg, Oral, Nightly, Lala Valdes APRN, 3 mg at 10/14/242046 NIFEdipine XL (Procardia XL) 24 hr tablet 60 mg, 60 mg, Oral, Daily, Leda Gaitan MD, 60 mg at 10/15/24 09 polyethylene glycol (Miralax) packet 17 g, 17 g, Oral, Daily, Lala Valdes [employer], 17 g at 10/15/24 1118 sertraline (Zoloft) tablet 75 mg, 75 mg, Oral, Daily, Lala Valdes [employer], 75 mg at 10/15/24 0911 Insert peripheral IV, , , Once AND Saline lock IV, , , Once AND sodium chloride 0.9 % flush10 mL, 10 mL, Intravenous, q12h, 10 mL at 10/13/24 1759 AND sodium chloride 0.9 % flush 10 mL, 10 mL, Intravenous, PRN, Lala Valdes APRN sodium citrate anticoagulant 4 % flush 6 mL, 6 mL, Intracatheter, PRN, AntionetDaphne APRN, ADA traZODone (Desyrel) tablet 100 mg, 100 mg, Oral, Nightly, Lala Valdes APRN, 100 mg at 10/14/242046 Facility-Administered Medications Ordered in Other Encounters: lidocaine-EPINEPHrine (PF) (Xylocaine W/EPI) 1 %-1:170598 injection - Pyxis Override Pull, , , , lidocaine-EPINEPHrine (PF) (Xylocaine W/EPI) 1 %-1:190521 injection - Pyxis Override Pull, , , , [2] No Known Allergies * Progress Notes - Sameera Garg MD - 10/15/2024 9:39 AM EDT Nephrology Progress Note Patient: Mundo [...] ESRD (end stage renal disease) on dialysis ([facility]) Essential (primary) hypertension Type 2 diabetes mellitus with chronic kidney disease on chronic dialysis ([facility]) Wears hearing aid in both ears At high risk for falls Insomnia, unspecified Chronic combined systolic (congestive) and diastolic (congestive) heart failure (CMS/HCC) Dementia ([facility]/HCC) Chronic hepatitis C without hepatic coma ([facility]/HCC) Arterial insufficiency ([facility]/HCC) Gastroesophageal reflux disease without esophagitis Mixed hyperlipidemia Anxiety and depression Mild intellectual disabilities Sensorineural hearing loss, bilateral History of transmetatarsal amputation of foot (CMS/HCC) Electrolyte and fluid disorder Anemia in chronic kidney disease (CODE) Chronic kidney disease-mineral and bone disorder (CKD-MBD) 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 ESRD (end stage renal disease) ([facility]) Medications: Current Medications: Current Scheduled [...] bilateral transmetarsal amputation, and debility presented to [facility] on 09/30 after refusing care at his fpc. Nephrology consulted for dialysis. Assessment: #ESRD on iHD - MWF at [facility] Dr. Lucas - AccesS: RUE AVG - [...] mg, Oral, Nightly [2] Cosigned by Sherry Hinjoosa MD at 10/15/2024 5:44 PM EDT Associated attestation - Sherry Hinojosa MD - 10/15/2024 5:44 PM EDT I saw and evaluated the patient with the resident/fellow. I discussed the case with the resident/fellow and agree with the findings and plan as documented. * Care Plan - Jagruti Carri - 10/15/2024 2:25 AM EDT Problem: Adult [...] Ongoing, Progressing Intervention: Promote Activity and Functional [place] Flowsheets Taken 10/15/2024218 Adaptive Equipment Use: use [...] from the original note were not included. [facility] Medicine Inpatient Progress Note Patient: Mundo [...] Minimally verbal HENT: Head: Normocephalic. Comments: Very [place], some times sin actions help to communicate [...] Assessment and Plan: Aakash Fernandez is a [place] 64 y.o. male with past history of ESRD on HD MWF, T2DM, HTN, chronic HFrEF, PAD, HLD, IDD/dementia, depression/anxiety, insomnia, chronic HCV, DM foot ulcer c/b OM s/p bilateral transmetarsal amputation, and debility sent from his [facility] to ED for medical evaluationafter refusing care. Declining functional status - Transferred to fpc a week ago and since arrival refusing HD, to eat, participate, or take medications - sent to ED for medical evaluation and need for higher level of assist/unable to care for self/non-compliance - afebrile, VSS, no acute complaints PLAN - PT/OT consult re: placement - legal guardian is his brother, Chris Fernandez, #[phone] (not answering calls since patient admission) Essential (primary) hypertension - increased carvedilol to 25 mg twice daily, nifedipine XL 60 mg daily (hold for BP <120/80 on dialysis days) At high risk for falls - wheelchair dependent, fall precautions ESRD (end stage renal disease) on dialysis ([facility] - HD (MWF) - renally dose meds based on EGFR - strict I/O, daily weight Electrolyte and fluid disorder Hyponatremia Chronic kidney disease-mineral and bone disorder (CKD-MBD) - continue Renvela 800 mg TID with meals Anemia in chronic kidney disease (CODE) - Hgb stable, transfuse to keep >7 Type 2 diabetes mellitus with chronic kidney disease on chronic dialysis ([facility]) - last A1c 6.3 PLAN - will dc SSI given minimal Insulin need Dementia ([facility]) - Psych recommended; Asenapine 3.8 [...] melatonin 3 mg at bedtime Arterial insufficiency ([facility]) - continue aspirin 81 mg [...] systolic (congestive) and diastolic (congestive) heart failure ([facility]) - ECHO 06/27/2022: EF 45%, abnormal diastolic dysfunction - strict I/O, 2 L fluid restriction, cardiac/renal/CCHO2 diet Chronic hepatitis C without hepatic coma ([facility]) - HCV RNA PCR not [...] Fernandez Mobile Relation: Legal Guardian Preferred language: Nepalese Solderer Electronic needed? No Secondary Emergency Contact: Mariel Chavez Address: [address] [place] [address] Mobile Relation: [employer] Solderer Electronic needed? No Lamont Brumfield MD Division of Hospital Medicine [phone] or secure message [1] Current Facility-Administered Medications: acetaminophen (Tylenol) tablet 650 mg, 650 mg, Oral, q6h PRN, Lala Valdes B, [employer] alteplase (Cathflo Activase) injection 4 mg, 4 mg, Intracatheter, PRN, Daphne Landry APRN, DNP Asenapine 3.8mg/24 hr patch, 1 patch, Transdermal, q24h, Leda Gaitan MD, 1 patchat 10/14/24 1649 aspirin chewable tablet 81 mg, 81 mg, Oral, Daily, Lala Valdes, [employer], 81 mg at 10/14/24 0856 atorvastatin (Lipitor) tablet 40 mg, 40 mg, Oral, Nightly, Lala Valdes, [employer], 40 mg at 10/13/24 2044 bisacodyl (Dulcolax) EC tablet 10 mg, 10 mg, Oral, Daily PRN, Lala Valdes, [employer], 10 mg at 10/13/24 0559 cadexomer iodine (Iodosorb) 0.9 % gel, , Topical, Daily, Tana Wooten MD, Given at 10/14/24 0903 carvedilol (Coreg) tablet 25 mg, 25 mg, Oral, BID, Leda Gaitan MD, 25 mg at 10/14/24 0856 clopidogrel (Plavix) tablet 75 mg, 75 mg, Oral, Daily, Lala Valdes APRN, 75 mg at 10/14/24 0856 glucose (Glutose) [...] mg, 250 mg, Oral, BID, Lala Valdes [employer],250 mg at 10/14/24 0856 heparin (porcine) injection 5,000 Units, 5,000 Units, Subcutaneous, q8h RAFAT, Lala Valdes [employer], 5,000 Units at 10/14/24 0627 melatonin tablet 3 mg, 3 mg, Oral, Nightly, Lala Valdes APRN, 3 mg at 10/13/242043 NIFEdipine XL (Procardia XL) 24 hr tablet 60 mg, 60 mg, Oral, Daily, Leda Gaitan MD, 60 mg at 10/14/24 0856 polyethylene glycol (Miralax) packet 17 g, 17 g, Oral, Daily, Lala Valdes APRN, 17 g at 10/14/24 0856 sertraline (Zoloft) tablet 75 mg, 75 mg, Oral, Daily, Lala Valdes [employer], 75 mg at 10/14/24 0856 Insert peripheral IV, , , Once AND Saline lock IV, , , Once AND sodium chloride 0.9 % flush10 mL, 10 mL, Intravenous, q12h, 10 mL at 10/13/24 1759 AND sodium chloride 0.9 % flush 10 mL, 10 mL, Intravenous, PRN, Lala Valdes [employer] sodium citrate anticoagulant 4 % flush 6 mL, 6 mL, Intracatheter, PRN, Gris, Daphne Jacinto, EVERT, DNP traZODone (Desyrel) tablet 100 mg, 100 mg, Oral, Nightly, Lala Valdes, [employer], 100 mg at 10/13/242043 Facility-Administered Medications Ordered [...] Ongoing, Progressing Intervention: Promote Activity and Functional [place] Flowsheets (Taken 10/14/2024 1430) Activity Assistance Provided: [...] Note Mundo Fernandez 64 y.o. male CSN: [id number] Admission: 09/30/2024 3:29 PM Primary Problem: Declining [...] management of chronic conditions. Anticipate discharge to [facility] facility. Message left for call back from [facility] ([phone]). Will secure transport after placement confirmed. BrothChris britt, is guardian; will update after confirmation from facility received. Karma Brambila RN, BSN Case Management * Consults - Lexi Hernandez RD - 10/14/2024 12:00 PM EDT Adult Nutrition Evaluation Note Mundo Fernandez 64 y.o. male CSN: [id number] Room/Bed 710/710A Nutrition evaluation type: assessment Reason for evaluation: [facility] Hospital course: Pt is a 64 y.o. male who presented to the ED on 09/30 from his [facility] for medical evaluation after refusing care. Past [...] (Room air) O2 Delivery Method: Nasal cannula Kerrie Coma Scale Score: 14 Sav Scale [...] (Calculated): 23.63 Weight Evaluation: Overweight (BMI 25-29.9) Nunda Body Weight (kg): 75.5 Percent Nunda Body Weight: 112 Wt Readings from Last [...] lb) Estimated Needs: Kcal/ K-30 Kcal Provided: 6892-3101 Kcal Needs Based On: Current weight (84.4 kg) Gm Protein/ Kg : 1.2-1.5 Protein Provided: 101-127 Protein Needs Based On: Current weight (84.4 kg) Fluid Provided: 1 ml/kcal or per MD team Metabolic Cart Study Results: Current Nutrition Intake: Diet Supplements: None Diet Order: Adult Diet Diet Texture: Regular Adult Carbohydrate Restriction: Consistent CHO 3 (5377-4367 Preet, 95 g/meal) Adult Sodium Restriction: 2,000 mg Na Fat Restriction: Cardiac Electrolyte Restriction: Renal Adult Fluid Restriction / 24 hr: 2000 ml fluid Percent Meals Eaten (%): 71% avg x 15 meals (10/07-10/14) Diet Experience and Nutrition History: Diet Education Provided: Will monitor Pertinent home medications: Medications Ordered Prior to Encounter[5] Episcopalian needs: Nutrition Focused Physical Exam: Unable to [...] Dementia (CMS/HCC) 02/18/2022 Depression Diabetic peripheral neuropathy (CMS/HCC) ESRD (end stage renal disease) on dialysis (CMS/HCC) 09/16/2021 Essential hypertension 11/23/2011 GERD (gastroesophageal reflux disease) Hemorrhoids Hyperlipidemia Hypoparathyroidism 11/23/2011 Infection of AV graft for dialysis (CMS/HCC) 02/18/2022 Added automatically from request for surgery [id number] Insomnia, unspecified 12/22/2021 Methicillin resistant Staphylococcus aureus infection, unspecified site Mild intellectual disabilities 08/30/2019 MSSA bacteremia 03/04/2022 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 06/07/2024 Sensorineural hearing loss, bilateral 01/11/2018 Type 2 diabetes mellitus [2] Past Surgical History: Procedure Laterality Date CATARACT EXTRACTION W/ INTRAOCULAR LENS IMPLANT N/A Cataract Phacoemulsification With Intraocular Lens Implantation from [employer] EXPLORATORY LAPAROTOMY stab incision abdomen EYE SURGERY N/A Eye Surgery from [employer] FOOT SURGERY N/A Surgery Foot Amputation Metatarsal And Toe from [employer] OTHER SURGICAL HISTORY Right Tympanic Membrane Repair - Right Ear from [employer] OTHER SURGICAL HISTORY Right Surgery Right Foot Amputation MTP from [employer] [3] Asenapine, 1 patch, Transdermal, q24h aspirin, [...] Last Admin lidocaine-EPINEPHrine (PF) (Xylocaine W/EPI) 1 %-1:283020 injection - Pyxis Override Pull lidocaine-EPINEPHrine (PF) (Xylocaine W/EPI) 1 %-1:942261 injection - Pyxis Override Pull Current Outpatient [...] bilateral transmetarsal amputation, and debility presented to [facility] on 09/30 after refusing care at his f[facility]. Nephrology consulted for dialysis. Assessment: #ESRD on iHD - MWF at [facility] [address] [facility] - AccesS: RUAngel [...] Prevention/Management: medication Intervention: Prevent Infection Flowsheets (Taken 10/14/2024122) Infection Prevention: environmental surveillance performed hand hygiene [...] Identify and Manage Contributors Flowsheets (Taken 10/14/2024 012) Medication Review/Management: medications reviewed Self-Care Promotion: independence [...] of Bed (HOB) Positioning: HOB elevated Taken 10/13/202453 Pressure Reduction Devices: positioning supports utilized Goal: [...] Ongoing, Progressing Intervention: Promote Activity and Functional [place] Flowsheets Taken 10/14/2024122 Self-Care Promotion: independence encouraged Taken 10/13/202453 Activity Assistance Provided: assistance, 2 people Problem: Diabetes Goal: Optimal Coping Outcome: Ongoing, Progressing Intervention: Support Wellbeing and Self-Management Success Flowsheets (Taken 10/14/2024122) Supportive Measures: active listening utilized Goal: Optimal Functional Ability Outcome: Ongoing, Progressing Intervention: Optimize Functional Ability Flowsheets Taken 10/14/2024 0123 Self-Care Promotion: independence encouraged Taken 10/13/20241999 Activity Management: activity adjusted per tolerance Taken 10/13/2024 0054 Activity Assistance Provided: assistance, 2 people Goal: Blood Glucose Level Within Target Range Outcome: Ongoing, Progressing Intervention: Optimize Glycemic Control Flowsheets (Taken 10/14/2024 0123) Hyperglycemia Management: blood glucose monitored Goal: Minimize Hypoglycemia Risk Outcome: Ongoing, Progressing Intervention: Minimize and Manage Hypoglycemia Flowsheets (Taken 10/14/2024 0123) Hypoglycemia Management: blood glucose monitored Problem: Mobility Impairment Goal: Optimal Mobility Outcome: Ongoing, Progressing Intervention: Optimize Mobility Flowsheets Taken 10/14/2024 012 Positioning/Transfer Devices: pillows in use Taken 10/13/20241999 [...] Ongoing, Progressing Intervention: Promote Activity and Functional [place] Flowsheets (Taken 10/13/2024 0054 by Carri Chand) [...] Progress Notes - Lamont Brumfield MD - 10/13/2024 12:43 PM EDT Images from the original note were not included. [facility] Medicine Inpatient Progress Note Patient: Mundo [...] Comments: Minimally verbal HENT: Head: Normocephalic. Comments: [place] Right Ear: External ear normal. Left Ear: [...] Assessment and Plan: Aakash Fernandez is a [place] 64 y.o. male with past history of ESRD on HD MWF, T2DM, HTN, chronic HFrEF, PAD, HLD, IDD/dementia, depression/anxiety, insomnia, chronic HCV, DM foot ulcer c/b OM s/p bilateral transmetarsal amputation, and debility sent from his [facility] to ED for medical evaluationafter refusing care. Declining functional status - Transferred to fpc a week ago and since arrival refusing HD, to eat, participate, or take medications - sent to ED for medical evaluation and need for higher level of assist/unable to care for self/non-compliance - afebrile, VSS, no acute complaints PLAN - PT/OT consult re: placement - legal guardian is his brother, Chris Fernandez, #[phone] (not answering calls since patient admission) Essential (primary) hypertension - increased carvedilol to 25 mg twice daily, nifedipine XL 60 mg daily (hold for BP <120/80 on dialysis days) At high risk for falls - wheelchair dependent, fall precautions ESRD (end stage renal disease) on dialysis ([facility] - HD (MWF) - renally dose meds based on EGFR - strict I/O, daily weight Electrolyte and fluid disorder Hyponatremia Chronic kidney disease-mineral and bone disorder (CKD-MBD) - continue Renvela 800 mg TID with meals Anemia in chronic kidney disease (CODE) - Hgb stable, transfuse to keep >7 Type 2 diabetes mellitus with chronic kidney disease on chronic dialysis ([facility]) - last A1c 6.3 PLAN - ACHS regular SSI Dementia ([facility]) - Psych recommended; Asenapine 3.8 [...] melatonin 3 mg at bedtime Arterial insufficiency ([facility]) - continue aspirin 81 mg [...] systolic (congestive) and diastolic (congestive) heart failure ([facility]) - ECHO 06/27/2022: EF 45%, abnormal diastolic dysfunction - strict I/O, 2 L fluid restriction, cardiac/renal/CCHO2 diet Chronic hepatitis C without hepatic coma ([facility]) - HCV RNA PCR not detected 07/13/2023 History of transmetatarsal amputation of foot ([facility]) - chronic OM 2/2 DM foot ulcers s/p bilateral transmetarsal amputation Inpatient Checklist: Inpatient checklist: - Bowel regimen: ducolax - Code status: Full Code - Diet: PO - DVT prophylaxis: heparin - Disposition: placement (possible APS report filled today) CODE STATUS: Full Code EMERGENCY CONTACT: Extended Emergency Contact Information Primary Emergency Contact: Chris Fernandez Mobile Relation: Legal Guardian Preferred language: Nepalese Solderer Electronic needed? No Secondary Emergency Contact: Mariel Chavez Address: [address] [place] [address] Mobile Relation: [employer]er [employer] Solderer Electronic needed? No Lamont Brumfield MD Division of Hospital Medicine [phone] or secure message [1] Current Facility-Administered Medications: acetaminophen (Tylenol) tablet 650 mg, 650 mg, Oral, q6h PRN, Lala Valdes, [employer] Asenapine 3.8mg/24 hr patch, 1 patch, Transdermal, q24h, Leda Gaitan MD, 1 patchat 10/12/24 1427 aspirin chewable tablet 81 mg, 81 mg, Oral, Daily, Lala Valdes, [employer], 81 mg at 10/13/24 0946 atorvastatin (Lipitor) tablet 40 mg, 40 mg, Oral, Nightly, Lala Valdes, [employer], 40 mg at 10/12/24 2044 bisacodyl (Dulcolax) EC tablet 10 mg, 10 mg, Oral, Daily PRN, Lala Valdes, [employer], 10 mg at 10/13/24 0559 cadexomer iodine (Iodosorb) 0.9 % gel, , Topical, Daily, Tana Wooten MD, Given at 10/13/24 0947 carvedilol (Coreg) tablet 25 mg, 25 mg, Oral, BID, Leda Gaitan MD, 25 mg at 10/13/24 0946 clopidogrel (Plavix) tablet 75 mg, 75 mg, Oral, Daily, Lala Valdes, [employer], 75 mg at 10/13/24 0946 glucose (Glutose) [...] Intramuscular, q15 min PRN, Lala Valdes B, [employer]PER[employer] divalproex sprinkle (Depakote Sprinkle) DR capsule 250 mg, 250 mg, Oral, BID, Lucio, Gitana B, [employer],250 mg at 10/13/24 0946 heparin (porcine) injection 5,000 Units, 5,000 Units, Subcutaneous, q8h RAFAT, Lala Valdes [employer], 5,000 Units at 10/13/24 0559 insulin lispro (Admelog) 100 units/mL injection - Correction - Standard Dose, 0- 5 Units, Subcutaneous, TID with meals, Lala Valdes APRN, 1 Units at 10/12/24 1220 insulin lispro (Admelog) injection - Correction - Nighttime Dose, 0-3 Units, Subcutaneous, Twice atnight, Lala Valdes APRN melatonin tablet 3 mg, 3 mg, Oral, Nightly, Lala Valdes [employer], 3 mg at 10/12/242043 NIFEdipine XL (Procardia XL) 24 hr tablet 60 mg, 60 mg, Oral, Daily, Leda Gaitan MD, 60 mg at 10/13/24945 polyethylene glycol (Miralax) packet 17 g, 17 g, Oral, Daily, Lala Valdes [employer], 17 g at 10/13/24945 sertraline (Zoloft) tablet 75 mg, 75 mg, Oral, Daily, Lala Valdes, [employer], 75 mg at 10/13/24945 Insert peripheral IV, , , Once AND Saline lock IV, , , Once AND sodium chloride 0.9 % flush10 mL, 10 mL, Intravenous, q12h, 10 mL at 10/13/24 0947 AND sodium chloride 0.9 % flush 10 mL, 10 mL, Intravenous, PRN, Lala Valdes B, [employer] traZODone (Desyrel) tablet 100 mg, 100 mg, Oral, Nightly, Lala Valdes, [employer], 100 mg at 10/12/242043 Facility-Administered Medications Ordered in Other Encounters: lidocaine-EPINEPHrine (PF) (Xylocaine W/EPI) 1 %-1:627363 injection - Pyxis Override Pull, , , , lidocaine-EPINEPHrine (PF) (Xylocaine W/EPI) 1 %-1:782248 injection - Pyxis Override Pull, , , [...] Ongoing, Progressing Intervention: Promote Activity and Functional [place] Flowsheets (Taken 10/13/202453) Activity Assistance Provided: assistance, 2 people Self-Care Promotion: independence encouraged Problem: Infection Goal: Absence of Infection Signs and Symptoms Outcome: Ongoing, Progressing Intervention: Prevent or Manage Infection Flowsheets (Taken 10/13/202453) Fever Reduction/Comfort Measures: lightweight bedding Isolation Precautions: precautions maintained Problem: Diabetes Goal: Optimal Coping Outcome: Ongoing, Progressing Intervention: Support Wellbeing and Self-Management Success Flowsheets (Taken 10/13/202453) Supportive Measures: active listening utilized Family/Support System Care: self-care encouraged Goal: Optimal Functional Ability Outcome: Ongoing, Progressing Intervention: Optimize Functional Ability Flowsheets (Taken 10/13/2024 0054) Activity Management: activity adjusted per tolerance Activity Assistance Provided: assistance, 2 people Self-Care Promotion: independence encouraged Goal: Blood Glucose Level Within Target Range Outcome: Ongoing, Progressing Intervention: Optimize Glycemic Control Flowsheets (Taken 10/13/2024 0054) Hyperglycemia Management: blood glucose monitored Goal: Minimize Hypoglycemia Risk Outcome: Ongoing, Progressing Intervention: Minimize and Manage Hypoglycemia Flowsheets (Taken 10/13/2024 005) Hypoglycemia Management: blood glucose monitored Problem: Mobility Impairment Goal: Optimal Mobility Outcome: Ongoing, Progressing Intervention: Optimize Mobility Flowsheets (Taken 10/13/2024 0054) Activity Management: activity adjusted per tolerance Positioning/Transfer [...] Ongoing, Progressing Intervention: Promote Activity and Functional [place] Flowsheets (Taken 10/12/2024 1204) Activity Assistance Provided: [...] from the original note were not included. [facility] Medicine Inpatient Progress Note Patient: Mundo [...] Assessment and Plan: Aakash Fernandez is a [place] 64 y.o. male with past history of ESRD on HD MWF, T2DM, HTN, chronic HFrEF, PAD, HLD, IDD/dementia, depression/anxiety, insomnia, chronic HCV, DM foot ulcer c/b OM s/p bilateral transmetarsal amputation, and debility sent from his [facility] to ED for medical evaluationafter refusing care. Declining functional status - Transferred to fpc a week ago and since arrival refusing HD, to eat, participate, or take medications - sent to ED for medical evaluation and need for higher level of assist/unable to care for self/non-compliance - afebrile, VSS, no acute complaints PLAN - PT/OT consult re: placement - legal guardian is his brother, Chris Fernandez, #[phone] (not answering calls since patient admission) Essential (primary) hypertension - increased carvedilol to 25 mg twice daily, nifedipine XL 60 mg daily (hold for BP <120/80 on dialysis days) At high risk for falls - wheelchair dependent, fall precautions ESRD (end stage renal disease) on dialysis ([facility]) - HD (MWF) - renally dose meds based on EGFR - strict I/O, daily weight Electrolyte and fluid disorder Hyponatremia Chronic kidney disease-mineral and bone disorder (CKD-MBD) - continue Renvela 800 mg TID with meals Anemia in chronic kidney disease (CODE) - Hgb stable, transfuse to keep >7 Type 2 diabetes mellitus with chronic kidney disease on chronic dialysis ([facility]) - last A1c 6.3 PLAN - ACHS regular SSI Dementia ([facility]) - Psych recommended; Asenapine 3.8 mg daily [...] melatonin 3 mg at bedtime Arterial insufficiency ([facility]) - continue aspirin 81 mg daily, clopidogrel [...] systolic (congestive) and diastolic (congestive) heart failure ([facility]) - ECHO 06/27/2022: EF 45%, abnormal diastolic dysfunction - strict I/O, 2 L fluid restriction, cardiac/renal/CCHO2 diet Chronic hepatitis C without hepatic coma ([facility]) - HCV RNA PCR not detected 07/13/2023 History of transmetatarsal amputation of foot ([facility]) - chronic OM 2/2 DM foot ulcers s/p bilateral transmetarsal amputation Inpatient Checklist: Inpatient checklist: - Bowel regimen: ducolax - Code status: Full Code - Diet: PO - DVT prophylaxis: heparin - Disposition: placement (possible APS report filled today) CODE STATUS: Full Code EMERGENCY CONTACT: Extended Emergency Contact Information Primary Emergency Contact: Chris Fernandez Mobile Relation: Legal Guardian Preferred language: Nepalese Solderer Electronic needed? No Secondary Emergency Contact: Mariel Chavez Address: [address] [place], [place] [id number] [facility] Mobile Relation: Roofer [employer] Solderer Electronic needed? No Lamont Brumfield MD Division of Hospital Medicine [phone] or secure message [1] Current Facility-Administered Medications: acetaminophen (Tylenol) tablet 650 mg, 650 mg, Oral, q6h PRN, Lala Valdes APRN Asenapine 3.8mg/24 hr patch, 1 patch, Transdermal, q24h, Leda Gaitan MD, 1 patchat 10/11/24 1427 aspirin chewable tablet 81 mg, 81 mg, Oral, Daily, Lala Valdes APRN, 81 mg at 10/11/24 1419 atorvastatin (Lipitor) tablet 40 mg, 40 mg, Oral, Nightly, Lala Valdes [employer], 40 mg at 10/11/242005 bisacodyl (Dulcolax) EC [...] Daily, Lala Valdes APRN, 75 mg at 10/11/24 1419 glucose (Glutose) [...] mg, 250 mg, Oral, BID, Lala Valdes [employer],250 mg at 10/11/242005 heparin (porcine) injection 5,000 Units, 5,000 Units, Subcutaneous, q8h RAFAT, Lala Valdes [employer], 5,000 Units at 10/12/24 0624 insulin lispro (Admelog) 100 units/mL injection - Correction - Standard Dose, 0- 5 Units, Subcutaneous, TID with meals, Lala Valdes APRN, 3 Units at 10/08/24 1218 insulin lispro (Admelog) injection - Correction - Nighttime Dose, 0-3 Units, Subcutaneous, Twice atnight, Lala Valdes APRN melatonin tablet 3 mg, 3 mg, Oral, Nightly, Lala Valdes [employer], 3 mg at 10/11/242005 NIFEdipine XL (Procardia XL) 24 hr tablet 60 mg, 60 mg, Oral, Daily, Leda Gaitan MD, 60 mg at 10/10/24 09 polyethylene glycol (Miralax) packet 17 g, 17 g, Oral, Daily, Lala Valdes [employer], 17 g at 10/10/24 0901 sertraline (Zoloft) tablet 75 mg, 75 mg, Oral, Daily, Lala Valdes [employer], 75 mg at 10/11/24 1419 Insert peripheral IV, , , Once AND Saline lock IV, , , Once AND sodium chloride 0.9 % flush10 mL, 10 mL, Intravenous, q12h, 10 mL at 10/10/24 0902 AND sodium chloride 0.9 % flush 10 mL, 10 mL, Intravenous, PRN, Lala Valdes, [employer] traZODone (Desyrel) tablet 100 mg, 100 mg, Oral, Nightly, Lala Valdes, [employer], 100 mg at 10/11/242005 Facility-Administered Medications Ordered in Other Encounters: lidocaine-EPINEPHrine (PF) (Xylocaine W/EPI) 1 %-1:630709 injection - Pyxis Override Pull, , , , lidocaine-EPINEPHrine (PF) (Xylocaine W/EPI) 1 %-1:740545 injection - Pyxis Override Pull, , , [...] Ongoing, Progressing Intervention: Promote Activity and Functional [place] Flowsheets (Taken 10/12/202428) Activity Assistance Provided: assistance, 2 people Adaptive Equipment Use: use encouraged Self-Care Promotion: BADL personal objects within reach * Care Plan - Amara Zhang RN - 10/11/2024 2:51 PM EDT Problem: Adult Inpatient Plan of Care Goal: Plan of Care Review Outcome: Ongoing, Progressing Flowsheets (Taken 10/11/20241447) Plan of Care Reviewed With: patient Goal: Patient-Specific Goal (Individualized) Outcome: Ongoing, Progressing Flowsheets (Taken 10/11/20241447) Patient/Family-Specific Goals (Include Timeframe): patient will consume at least 50% of meals during shift Goal: Absence of Hospital-Acquired Illness or Injury Outcome: Ongoing, Progressing Intervention: Identify and Manage Fall Risk Flowsheets (Taken 10/11/20241447) Safety Promotion/Fall Prevention: activity supervised Intervention: Prevent Skin Injury Flowsheets (Taken 10/11/2024 144) Skin Protection: incontinence pads utilized Intervention: Prevent Infection Flowsheets (Taken 10/11/20241447) Infection Prevention: hand hygiene promoted Problem: Skin Injury Risk Increased Goal: Skin Health and Integrity Outcome: Ongoing, Progressing Intervention: Optimize Skin Protection Flowsheets (Taken 10/11/2024 144) Activity Management: activity encouraged Skin Protection: incontinence [...] Intervention: Prevent or Manage Infection Flowsheets Taken 10/11/20241447 by Amara Zhang, RN Infection Prevention: hand hygiene promoted Taken 10/11/2024216 by Dayron Jama Jr. RN Infection Management: aseptic technique maintained Problem: Self-Care Deficit Goal: Improved Ability to Complete Activities of Daily Living Outcome: Ongoing, Progressing Intervention: Promote Activity and Functional [place] Flowsheets (Taken 10/11/2024 144) Self-Care Promotion: BADL personal routines maintained Intervention: Optimize Functional Ability Flowsheets (Taken 10/11/20241447) Activity Management: activity encouraged Self-Care Promotion: BADL personal routines maintained Goal: Blood Glucose Level Within Target Range Outcome: Ongoing, Progressing Intervention: Optimize Glycemic Control Flowsheets (Taken 10/11/2024 0114) Hyperglycemia Management: blood glucose monitored * Progress Notes - Hafsa Schmidt - 10/11/2024 1:00 PM EDT Case Management Adult Progress Note Mundo Fernandez 64 y.o. male CSN: [id number] Admission: 09/30/2024 3:29 PM Primary Problem: Declining functional status Comments SW CM attempted to follow up with admissions at [facility] at phone number however, SW CM had to leave a message. No other known CM needs. CM will follow up. Hafsa [...] 28 days, Once Release to patient in [facility]: Immediate Hepatitis panel, acute Every 28 days, Once Release to patient in [facility]: Immediate Zechariah Tovar MD Nephrology [1] Asenapine, [...] Assessment and Plan: Aakash Fernandez is a [place] 64 y.o. male with past history of ESRD on HD MWF, T2DM, HTN, chronic HFrEF, PAD, HLD, IDD/dementia, depression/anxiety, insomnia, chronic HCV, DM foot ulcer c/b OM s/p bilateral transmetarsal amputation, and debility sent from his [facility]pc to ED for medical evaluationafter refusing care. Declining functional status - Transferred to fpc a week ago and since arrival refusing HD, to eat, participate, or take medications - sent to ED for medical evaluation and need for higher level of assist/unable to care for self/non-compliance - afebrile, VSS, no acute complaints PLAN - PT/OT consult re: placement - legal guardian is his brother, Chris Fernandez, #[phone] (not answering calls since patient admission) Essential (primary) hypertension - increased carvedilol to 25 mg twice daily, nifedipine XL 60 mg daily (hold for BP <120/80 on dialysis days) At high risk for falls - wheelchair dependent, fall precautions ESRD (end stage renal disease) on dialysis ([facility] - HD (MWF) - renally dose meds based on EGFR - strict I/O, daily weight Electrolyte and fluid disorder Hyponatremia Chronic kidney disease-mineral and bone disorder (CKD-MBD) - continue Renvela 800 mg TID with meals Anemia in chronic kidney disease (CODE) - Hgb stable, transfuse to keep >7 Type 2 diabetes mellitus with chronic kidney disease on chronic dialysis ([facility]) - last A1c 6.3 PLAN - ACHS regular SSI Dementia ([facility]) - Psych recommended; Asenapine 3.8 [...] melatonin 3 mg at bedtime Arterial insufficiency ([facility]) - continue aspirin 81 mg [...] systolic (congestive) and diastolic (congestive) heart failure ([facility]) - ECHO 06/27/2022: EF 45%, abnormal diastolic dysfunction - strict I/O, 2 L fluid restriction, cardiac/renal/CCHO2 diet Chronic hepatitis C without hepatic coma ([facility]) - HCV RNA PCR not detected 07/13/2023 History of transmetatarsal amputation of foot ([facility]) - chronic OM 2/2 DM foot ulcers s/p bilateral transmetarsal amputation Inpatient Checklist: Inpatient checklist: - Bowel regimen: ducolax - Code status: Full Code - Diet: PO - DVT prophylaxis: heparin - Disposition: placement (possible APS report filled today) CODE STATUS: Full Code EMERGENCY CONTACT: Extended Emergency Contact Information Primary Emergency Contact: Chris Fernandez Mobile Relation: Legal Guardian Preferred language: Nepalese Solderer Electronic needed? No Secondary Emergency Contact: Mariel Chavez Address: [address] [place] [address] of [facility] Mobile Relation: [employer]er [employer] Solderer Electronic needed? No Lamont Brumfield MD Division of Hospital Medicine [phone] or secure message [1] Current Facility-Administered Medications: acetaminophen (Tylenol) tablet 650 mg, 650 mg, Oral, q6h PRN, Lala Valdes APRN Asenapine 3.8mg/24 hr patch, 1 patch, Transdermal, q24h, Leda Gaitan MD, 1 Application at 10/10/24 1322 aspirin chewable tablet 81 mg, 81 mg, Oral, Daily, Lala Valdes, [employer], 81 mg at 10/10/24 0901 atorvastatin (Lipitor) tablet 40 mg, 40 mg, Oral, Nightly, Lala Valdes, [employer], 40 mg at 10/10/242105 bisacodyl (Dulcolax) EC tablet 10 mg, 10 mg, Oral, Daily PRN, Lala Valdes, [employer] cadexomer iodine (Iodosorb) 0.9 % gel, , Topical, Daily, Tana Wooten MD, Given at 10/04/24 1311 carvedilol (Coreg) tablet 25 mg, 25 mg, Oral, BID, Leda Gaitan MD, 25 mg at 10/10/24 210 clopidogrel (Plavix) tablet 75 mg, 75 mg, Oral, Daily, Lala Valdes [employer], 75 mg at 10/10/24 09 glucose (Glutose) 40 % oral gel 15-30 grams of glucose, 15-30 grams of glucose, Sublingual, q15 minPRN OR dextrose 10 % (D10W) bolus 125 mL, 125 mL, Intravenous, q15 min PRN OR dextrose 10 %(D10W) bolus 250 mL, 250 mL, Intravenous, q15 min PRN OR glucagon (human recombinant) injection1 mg, 1 mg, Intramuscular, q15 min PRN, Lala Valdes, [employer] divalproex sprinkle (Depakote Sprinkle) DR capsule 250 mg, 250 mg, Oral, BID, Lala Valdes, [employer],250 mg at 10/10/242105 heparin (porcine) injection 5,000 Units, 5,000 Units, Subcutaneous, q8h RAFAT, Lala Valdes [employer], 5,000 Units at 10/11/24 0623 insulin lispro (Admelog) 100 units/mL injection - Correction - Standard Dose, 0- 5 Units, Subcutaneous, TID with meals, Lala Valdes [employer], 3 Units at 10/08/24 1218 insulin lispro (Admelog) injection - Correction - Nighttime Dose, 0-3 Units, Subcutaneous, Twice atnight, Lala Valdes [employer] melatonin tablet 3 mg, 3 mg, Oral, Nightly, Lala Valdes, [employer], 3 mg at 10/10/242106 NIFEdipine XL (Procardia XL) 24 hr tablet 60 mg, 60 mg, Oral, Daily, Leda Gaitan MD, 60 mg at 10/10/24900 polyethylene glycol (Miralax) packet 17 g, 17 g, Oral, Daily, Lala Valdes [employer], 17 g at 10/10/24 09 sertraline (Zoloft) tablet 75 mg, 75 mg, Oral, Daily, Lala Valdes, [employer], 75 mg at 10/10/24900 Insert peripheral IV, , , Once AND Saline lock IV, , , Once AND sodium chloride 0.9 % flush10 mL, 10 mL, Intravenous, q12h, 10 mL at 10/10/24 0902 AND sodium chloride 0.9 % flush 10 mL, 10 mL, Intravenous, PRN, Lala Valdes B, [employer] traZODone (Desyrel) tablet 100 mg, 100 mg, Oral, Nightly, Lala Valdes, [employer], 100 mg at 10/10/242106 Facility-Administered Medications Ordered in Other Encounters: lidocaine-EPINEPHrine (PF) (Xylocaine W/EPI) 1 %-1:433624 injection - Pyxis Override Pull, , , , lidocaine-EPINEPHrine (PF) (Xylocaine W/EPI) 1 %-1:934701 injection - Pyxis Override Pull, , , , [2] No Known Allergies * Nursing Note - Dayron Jama Jr., RN - 10/11/2024 4:20 AM EDT Pt [...] Ongoing, Progressing Intervention: Promote Activity and Functional [place] Flowsheets (Taken 10/11/2024216) Activity Assistance Provided: assistance, [...] from the original note were not included. [facility] Inpatient Progress Note Patient: Mundo Fernandez [...] Assessment and Plan: Aakash Fernandez is a [place] 64 y.o. male with past history of ESRD on HD MWF, T2DM, HTN, chronic HFrEF, PAD, HLD, IDD/dementia, depression/anxiety, insomnia, chronic HCV, DM foot ulcer c/b OM s/p bilateral transmetarsal amputation, and debility sent from his fpc to ED for medical evaluationafter refusing care. Declining functional status - Transferred to fpc a week ago and since arrival refusing HD, to eat, participate, or take medications - sent to ED for medical evaluation and need for higher level of assist/unable to care for self/non-compliance - afebrile, VSS, no acute complaints PLAN - PT/OT consult re: placement - legal guardian is his brother, Chris Fernandez, #[phone] (not answering calls since patient admission) Essential (primary) hypertension - increased carvedilol to 25 mg twice daily, nifedipine XL 60 mg daily (hold for BP <120/80 on dialysis days) At high risk for falls - wheelchair dependent, fall precautions ESRD (end stage renal disease) on dialysis ([facility]) - HD (MWF) - renally dose meds based on EGFR - strict I/O, daily weight Electrolyte and fluid disorder Hyponatremia Chronic kidney disease-mineral and bone disorder (CKD-MBD) - continue Renvela 800 mg TID with meals Anemia in chronic kidney disease (CODE) - Hgb stable, transfuse to keep >7 Type 2 diabetes mellitus with chronic kidney disease on chronic dialysis ([facility]) - last A1c 6.3 PLAN - ACHS regular SSI Dementia ([facility]) - Psych recommended; Asenapine 3.8 mg daily [...] melatonin 3 mg at bedtime Arterial insufficiency ([facility]) - continue aspirin 81 mg [...] systolic (congestive) and diastolic (congestive) heart failure ([facility]) - ECHO 06/27/2022: EF 45%, abnormal diastolic dysfunction - strict I/O, 2 L fluid restriction, cardiac/renal/CCHO2 diet Chronic hepatitis C without hepatic coma ([facility]) - HCV RNA PCR not detected 07/13/2023 History of transmetatarsal amputation of foot ([facility]) - chronic OM 2/2 DM foot ulcers s/p bilateral transmetarsal amputation Inpatient Checklist: Inpatient checklist: - Bowel regimen: ducolax - Code status: Full Code - Diet: PO - DVT prophylaxis: heparin - Disposition: placement (possible APS report filled today) CODE STATUS: Full Code EMERGENCY CONTACT: Extended Emergency Contact Information Primary Emergency Contact: Chris Fernandez Mobile Relation: Legal Guardian Preferred language: Nepalese Solderer Electronic needed? No Secondary Emergency Contact: Mariel Chavez Address: [address] [place] [address] of [facility] Mobile Relation: Ro[employer]er [employer] Solderer Electronic needed? No Lamont Brumfield MD Division of Hospital Medicine [phone] or secure message [1] Current Facility-Administered Medications: acetaminophen (Tylenol) tablet 650 mg, 650 mg, Oral, q6h PRN, Lala Valdes, [employer]ION Asenapine 3.8mg/24 hr patch, 1 patch, Transdermal, q24h, Leda Gaitan MD, 1 patchat 10/09/24 1337 aspirin chewable tablet 81 mg, 81 mg, Oral, Daily, Lala Valdes, [employer], 81 mg at 10/10/24 0901 atorvastatin (Lipitor) tablet 40 mg, 40 mg, Oral, Nightly, Lala Valdes, [employer], 40 mg at 10/09/24 2110 bisacodyl (Dulcolax) EC tablet 10 mg, 10 mg, Oral, Daily PRN, Lala Valdes, [employer] cadexomer iodine (Iodosorb) 0.9 % gel, , Topical, Daily, Tana Wooten MD, Given at 10/04/24 1311 carvedilol (Coreg) tablet 25 mg, 25 mg, Oral, BID, Leda Gaitan MD, 25 mg at 10/10/24 0901 clopidogrel (Plavix) tablet 75 mg, 75 mg, Oral, Daily, Lala Valdes, [employer], 75 mg at 10/10/24 0901 glucose (Glutose) 40 % oral gel 15-30 grams of glucose, 15-30 grams of glucose, Sublingual, q15 minPRN OR dextrose 10 % (D10W) bolus 125 mL, 125 mL, Intravenous, q15 min PRN OR dextrose 10 %(D10W) bolus 250 mL, 250 mL, Intravenous, q15 min PRN OR glucagon (human recombinant) injection1 mg, 1 mg, Intramuscular, q15 min PRN, Lala Valdes, [employer] divalproex sprinkle (Depakote Sprinkle) DR capsule 250 mg, 250 mg, Oral, BID, Lala Valdes [employer],250 mg at 10/10/24 0901 heparin (porcine) injection 5,000 Units, 5,000 Units, Subcutaneous, q8h RAFAT, Lala Valdes, [employer], 5,000 Units at 10/10/24 0643 insulin lispro (Admelog) 100 units/mL injection - Correction - Standard Dose, 0- 5 Units, Subcutaneous, TID with meals, Lala Valdes B, [employer], 3 Units at 10/08/24 1218 insulin lispro (Admelog) injection - Correction - Nighttime Dose, 0-3 Units, Subcutaneous, Twice atnight, Lala Valdes B, [employer] melatonin tablet 3 mg, 3 mg, Oral, Nightly, Lala Valdes B, [employer], 3 mg at 10/09/242109 NIFEdipine XL (Procardia XL) 24 hr tablet 60 mg, 60 mg, Oral, Daily, Leda Gaitan MD, 60 mg at 10/10/24900 polyethylene glycol (Miralax) packet 17 g, 17 g, Oral, Daily, Lala Valdes B, [employer], 17 g at 10/10/24900 sertraline (Zoloft) tablet 75 mg, 75 mg, Oral, Daily, Laith Valdesana B, [employer], 75 mg at 10/10/24 09 Insert peripheral IV, , , Once AND Saline lock IV, , , Once AND sodium chloride 0.9 % flush10 mL, 10 mL, Intravenous, q12h, 10 mL at 10/10/24 0902 AND sodium chloride 0.9 % flush 10 mL, 10 mL, Intravenous, PRN, Laith Valdesana B, [employer]PERINT[employer]ENT [employer]ION traZODone (Desyrel) tablet 100 mg, 100 mg, Oral, Nightly, Lala Valdes B, [employer], 100 mg at 10/09/242109 Facility-Administered Medications Ordered in Other Encounters: lidocaine-EPINEPHrine (PF) (Xylocaine W/EPI) 1 %-1:985372 injection - Pyxis Override Pull, , , , lidocaine-EPINEPHrine (PF) (Xylocaine W/EPI) 1 %-1:660013 injection - Pyxis Override Pull, , , [...] Ongoing, Progressing Intervention: Promote Activity and Functional [place] Flowsheets (Taken 10/10/2024 0750) Activity Assistance Provided: [...] pillows * Care Plan - Dayron Jama Jr., RN - 10/10/2024 4:06 AM EDT Problem: [...] Ongoing, Progressing Intervention: Promote Activity and Functional [place] Flowsheets (Taken 10/10/2024 0400) Activity Assistance Provided: [...] bedrest * Nursing Note - Dayron Jama Jr., RN - 10/10/2024 4:00 AM EDT Resting in bed, eyes closed, breathing easily * Consults - Nils Banerjee RN - 10/09/2024 3:46 PM EDTAssociated Order(s): IP CONSULT TO ADULT VASCULAR ACCESS TEAM Labs collected at bedside * Progress Notes - Lamont Brumfield MD - 10/09/2024 2:20 PM EDT Images from the original note were not included. [facility] Medicine Inpatient Progress Note Patient: Mundo [...] Assessment and Plan: Aakash Fernandez is a [place] 64 y.o. male with past history of ESRD on HD MWF, T2DM, HTN, chronic HFrEF, PAD, HLD, IDD/dementia, depression/anxiety, insomnia, chronic HCV, DM foot ulcer c/b OM s/p bilateral transmetarsal amputation, and debility sent from his fpc to ED for medical evaluationafter refusing care. Declining functional status - Transferred to fpc a week ago and since arrival refusing HD, to eat, participate, or take medications - sent to ED for medical evaluation and need for higher level of assist/unable to care for self/non-compliance - afebrile, VSS, no acute complaints PLAN - PT/OT consult re: placement - legal guardian is his brother, Chris Fernandez, #[phone] (not answering calls since patient admission) Essential (primary) hypertension - increased carvedilol to 25 mg twice daily, nifedipine XL 60 mg daily (hold for BP <120/80 on dialysis days) At high risk for falls - wheelchair dependent, fall precautions ESRD (end stage renal disease) on dialysis ([facility] - HD (MWF) - renally [...] with chronic kidney disease on chronic dialysis ([facility]) - last A1c 6.3 PLAN - ACHS regular SSI - hold home glargine 5U at bedtime while trend glucose/PO intake Dementia ([facility]) - Delirium precautions - Psych [...] melatonin 3 mg at bedtime Arterial insufficiency ([facility]) - continue aspirin 81 mg [...] systolic (congestive) and diastolic (congestive) heart failure ([facility]) - ECHO 06/27/2022: EF 45%, abnormal diastolic dysfunction - strict I/O, 2 L fluid restriction, cardiac/renal/CCHO2 diet Chronic hepatitis C without hepatic coma ([facility]) - HCV RNA PCR not detected 07/13/2023 History of transmetatarsal amputation of foot ([facility]) - chronic OM 2/2 DM foot ulcers s/p bilateral transmetarsal amputation Inpatient Checklist: Inpatient checklist: - Bowel regimen: ducolax - Code status: Full Code - Diet: PO - DVT prophylaxis: heparin - Disposition: placement (possible APS report filled today) CODE STATUS: Full Code EMERGENCY CONTACT: Extended Emergency Contact Information Primary Emergency Contact: Chris Fernandez Mobile Relation: Legal Guardian Preferred language: Nepalese Solderer Electronic needed? No Secondary Emergency Contact: Mariel Chavez Address: [address] [place] [address] Mobile Relation: Roofer [employer] Solderer Electronic needed? No Lamont Brumfield MD Division of Hospital Medicine [phone] or secure message [1] Current Facility-Administered Medications: acetaminophen (Tylenol) tablet 650 mg, 650 mg, Oral, q6h PRN, Lala Valdes, SUPERINTENDENT DISTRIBUTION alteplase (Cathflo Activase) injection 4 mg, 4 mg, Intracatheter, PRN, AntionetDaphne APRN, DNP Asenapine 3.8mg/24 hr patch, 1 patch, Transdermal, q24h, Leda Gaitan MD, 1 patchat 10/09/24 1337 aspirin chewable tablet 81 mg, 81 mg, Oral, Daily, Lala Valdes [employer], 81 mg at 10/09/24 1337 atorvastatin (Lipitor) tablet 40 mg, 40 mg, Oral, Nightly, Lala Valdes, [employer]PER[employer], 40 mg at 10/08/24 204 bisacodyl (Dulcolax) EC tablet 10 mg, 10 mg, Oral, Daily PRN, Lala Valdes [employer]PER[employer]ION cadexomer iodine (Iodosorb) 0.9 % gel, , Topical, Daily, Tana Wooten MD, Given at 10/04/24 1311 carvedilol (Coreg) tablet 25 mg, 25 mg, Oral, BID, Leda Gaitan MD, 25 mg at 10/09/24 1337 clopidogrel (Plavix) tablet 75 mg, 75 mg, Oral, Daily, Lala Valdes [employer], 75 mg at 10/09/24 1336 glucose (Glutose) [...] mg, 250 mg, Oral, BID, Lala Valdes [employer]PER[employer],250 mg at 10/09/24 1336 heparin (porcine) injection 5,000 Units, 5,000 Units, Subcutaneous, q8h RAFAT, Lala Valdes [employer], 5,000 Units at 10/09/24 1337 insulin lispro (Admelog) 100 units/mL injection - Correction - Standard Dose, 0- 5 Units, Subcutaneous, TID with meals, Lala Valdes [employer]PER[employer], 3 Units at 10/08/24 1218 insulin lispro (Admelog) injection - Correction - Nighttime Dose, 0-3 Units, Subcutaneous, Twice atnight, Lala Valdes APRN melatonin tablet 3 mg, 3 mg, Oral, Nightly, Lala Valdes [employer], 3 mg at 10/08/242043 NIFEdipine XL (Procardia XL) 24 hr tablet 60 mg, 60 mg, Oral, Daily, Leda Gaitan MD, 60 mg at 10/09/24 133 polyethylene glycol (Miralax) packet 17 g, 17 g, Oral, Daily, Lala Valdes, SUPERINT[employer], 17 g at 10/06/24 0828 sertraline (Zoloft) tablet 75 mg, 75 mg, Oral, Daily, Lala Valdes [employer]PER[employer], 75 mg at 10/09/24 1337 Insert peripheral IV, , , Once AND Saline lock IV, , , Once AND sodium chloride 0.9 % flush10 mL, 10 mL, Intravenous, q12h, 10 mL at 10/04/242031 AND sodium chloride 0.9 % flush 10 mL, 10 mL, Intravenous, PRN, Lala Valdes APRN sodium citrate anticoagulant 4 % flush 6 mL, 6 mL, Intracatheter, PRN, Antionet, Daphne Jacinto APRN, ADA traZODone (Desyrel) tablet 100 mg, 100 mg, Oral, Nightly, Lala Valdes, [employer]PERINT[employer]ENT [employer], 100 mg at 10/08/244 Facility-Administered Medications Ordered in Other Encounters: lidocaine-EPINEPHrine [...] Care Review Outcome: Ongoing, Progressing Flowsheets (Taken 10/09/2024 1205) Progress: no change Outcome Evaluation: pt will remain free of harm during this shift Plan of Care Reviewed With: patient Goal: Patient-Specific Goal (Individualized) Outcome: Ongoing, Progressing Goal: Absence of Hospital-Acquired Illness or Injury Outcome: Ongoing, Progressing Intervention: Identify and Manage Fall Risk Flowsheets (Taken 10/09/2024 1205) Safety Promotion/Fall Prevention: activity supervised Intervention: Prevent Skin Injury Flowsheets Taken 10/09/2024 1205 Body Position: weight shifting Taken 10/09/2024 0800 Skin Protection: incontinence pads utilized Intervention: Prevent [...] and Optimize Oral Intake Flowsheets (Taken 10/09/2024 08) Oral Nutrition Promotion: physical activity promoted Nutrition [...] Ongoing, Progressing Intervention: Promote Activity and Functional [place] Flowsheets (Taken 10/09/2024 08) Activity Assistance Provided: [...] 28 days, Once Release to patient in [facility]: Immediate Hepatitis panel, acute Every 28 days, Once [facility] Zechariah Tovar MD Nephrology [1] Asenapine, [...] sodium citrate anticoagulant * Care Plan - Carri Chand - 10/09/2024 3:40 AM EDT Problem: Adult [...] at Home: walker, rolling Current Outpatient/Agency/Support Group: fpc Anticipated Changes Related to Illness: inability to [...] from the original note were not included. [facility] Medicine Inpatient Progress Note Patient: Mundo [...] Assessment and Plan: Aakash Fernandez is a [place] 64 y.o. male with past history of ESRD on HD MWF, T2DM, HTN, chronic HFrEF, PAD, HLD, IDD/dementia, depression/anxiety, insomnia, chronic HCV, DM foot ulcer c/b OM s/p bilateral transmetarsal amputation, and debility sent from his fpc to ED for medical evaluationafter refusing care. Declining functional status - Transferred to fpc a week ago and since arrival refusing HD, to eat, participate, or take medications - sent to ED for medical evaluation and need for higher level of assist/unable to care for self/non-compliance - afebrile, VSS, no acute complaints PLAN - PT/OT consult re: placement - legal guardian is his brother, Chris Fernandez, #[phone] (not answering calls since patient admission) Essential (primary) hypertension - increased carvedilol to 25 mg twice daily, nifedipine XL 60 mg daily (hold for BP <120/80 on dialysis days) At high risk for falls - wheelchair dependent, fall precautions ESRD (end stage renal disease) on dialysis ([facility] - HD (MWF) - renally [...] with chronic kidney disease on chronic dialysis [facility] [facility] - last A1c 6.3 PLAN - ACHS regular SSI - hold home glargine 5U at bedtime while trend glucose/PO intake Dementia ([facility]) - Delirium precautions - Psych [...] melatonin 3 mg at bedtime Arterial insufficiency ([facility] - continue aspirin 81 mg [...] systolic (congestive) and diastolic (congestive) heart failure ([facility]) - ECHO 06/27/2022: EF 45%, [...] Fernandez Mobile Relation: Legal Guardian Preferred language: Nepalese Solderer Electronic needed? No Secondary Emergency Contact: Mariel Chavez Address: [address] [place] [address] Mobile Relation: [employer]er [employer] Solderer Electronic needed? No Lamont Brumfield MD Division of Hospital Medicine [phone] or secure message [1] Current Facility-Administered Medications: acetaminophen (Tylenol) tablet 650 mg, 650 mg, Oral, q6h PRN, Lala Valdes, SUPERINTENDENT DISTRIBUTION Asenapine 3.8mg/24 hr patch, 1 patch, Transdermal, q24h, Leda Gaitan MD, 1 patchat 10/08/24 1300 aspirin chewable tablet 81 mg, 81 mg, Oral, Daily, Llaa Valdes, SUPERINTENDENT DISTRIBUTION, 81 mg at 10/07/24 1307 atorvastatin (Lipitor) tablet 40 mg, 40 mg, Oral, Nightly, Lala Valdes, SUPERINTENDENT DISTRIBUTION, 40 mg at 10/07/248 bisacodyl (Dulcolax) EC tablet 10 mg, 10 mg, Oral, Daily PRN, Lala Valdes, SUPERINTENDENT DISTRIBUTION cadexomer iodine (Iodosorb) 0.9 % gel, , [...] g, 17 g, Oral, Daily, Lala Valdes SUPERINTENDENT DISTRIBUTION, 17 g at 10/06/24 0828 sertraline (Zoloft) tablet 75 mg, 75 mg, Oral, Daily, Lala Valdes APRN, 75 mg at 10/07/24 1305 Insert peripheral IV, , , Once AND Saline lock IV, , , Once AND sodium chloride 0.9 % flush10 mL, 10 mL, Intravenous, q12h, 10 mL at 10/04/242031 AND sodium chloride 0.9 % flush 10 mL, 10 mL, Intravenous, PRN, Lucio, Gitana B, SUPERINTENDENT DISTRIBUTION traZODone (Desyrel) tablet 100 mg, 100 mg, Oral, Nightly, Lucio, Gitana B, SUPERINTENDENT DISTRIBUTION, 100 mg at 10/07/242027 Facility-Administered Medications Ordered in Other Encounters: lidocaine-EPINEPHrine (PF) (Xylocaine W/EPI) 1 %-1:486997 injection - Pyxis Override Pull, , , , lidocaine-EPINEPHrine (PF) (Xylocaine W/EPI) 1 %-1:916596 injection - Pyxis Override Pull, , , [...] 10/08/2024 2:06 PM Wound Image Wound Assessment [place];Granulation Margins Well-defined edges;Open Edges Sydni-Wound Assessment Clean;Dry;Calloused [...] followed up on SNF referral and found [facility] is interested in accepting patient for LTC. Admissions liaison completed bedside evaluation today and plans to have business officediscuss finances with patients guardian, brother, Chris. CM will continue to follow. Birdie Damico RN * Progress Notes - Birdie Damico RN - 10/08/2024 2:05 PM EDT CM followed up on LTC pending Medicaid referral and found [facility] interested in accepting patient. [...] Intervention: Prevent Skin Injury Flowsheets (Taken 10/08/2024 1136) Body Position: weight shifting Intervention: Prevent and [...] Intervention: Provide Person-Centered Care Flowsheets (Taken 10/08/2024 1136) Trust Relationship/Rapport: care explained Goal: Readiness for Transition of Care Outcome: Ongoing, Not Progressing Intervention: Mutually Develop Transition Plan Flowsheets (Taken 10/08/2024 1136) Equipment Currently Used at Home: walker, rolling Current Outpatient/Agency/Support Group: fpc Current Discharge Risk: cognitively impaired lack of [...] and Optimize Oral Intake Flowsheets (Taken 10/08/2024 1136) Oral Nutrition Promotion: physical activity promoted Nutrition Interventions: food preferences provided Problem: Fall Injury Risk Goal: Absence of Fall and Fall-Related Injury Outcome: Ongoing, Not Progressing Intervention: Identify and Manage Contributors Flowsheets (Taken 10/08/2024 1136) Medication Review/Management: medications reviewed Self-Care Promotion: independence encouraged Intervention: Promote Injury-Free Environment Flowsheets (Taken 10/08/2024 1136) Safety Promotion/Fall Prevention: [...] Device Care and Function Flowsheets (Taken 10/08/2024 113) Medication Review/Management: medications reviewed Goal: Effective Tissue Perfusion Outcome: Ongoing, Not Progressing Intervention: Optimize Blood Flow Flowsheets (Taken 10/08/2024 1136) Stabilization Measures: (pt refusing all interventions) other [...] Wellbeing and Self-Management Success Flowsheets (Taken 10/08/2024 113) Family/Support System Care: self-care encouraged Goal: Optimal [...] Ongoing, Progressing Intervention: Promote Activity and Functional [place] Flowsheets (Taken 10/08/202451) Activity Assistance Provided: assistance, [...] patients legal guardian and brother Chris Fernandez [phone]. Per Chris, he in not able to care for patient in his home and wants patient in a LTC facility. LTC pending Medicaid referral sent to [facility] as patient was discharged from there a few weeks ago. Referral alsosent to facilities 20 [address] radius of home address. [facility] will continue to follow. Birdie Damico RN [...] reviewed Goal: Effective Tissue Perfusion Outcome: Ongoing, Intervention: Optimize Blood Flow Flowsheets (Taken 10/07/2024 [...] Ongoing, Progressing Intervention: Promote Activity and Functional [place] Flowsheets (Taken 10/07/2024 1501) Activity Assistance Provided: [...] 28 days, Once Release to patient in [facility]: Immediate Hepatitis panel, acute Every 28 days, Once Release to patient in [facility]: Immediate Zechariah Tovar MD Nephrology [1] Asenapine, [...] Note Mundo Fernandez 64 y.o. male CSN: [id number] Room/Bed 710/710A Nutrition evaluation type: assessment Reason for evaluation: [facility] Hospital course: Pt is a 64 y.o. male who presented to the ED on 09/30 from his [facility] for medical evaluation after refusing care. Past medical/ surgical history: Past Medical History[1] Surgical History[2] Social history: reviewed Additional comments: 10/07: Pt unavailable at time of visit, bedside care in progress. Tolerating PO with excellent intakes per nursing documentation. Vitals and Basic Assessment: BP: (!) 186/78 Temp: 36.4 ??C (97.6 ??F) Oxygen Therapy: None (Room air) [place] Coma Scale Score: 14 Sav Scale Score: [...] (Calculated): 26.7 Weight Evaluation: Overweight (BMI 25-29.9) [place] Body Weight (kg): 75.5 Percent [place] Body Weight: 112 Wt Readings from Last [...] lb) Estimated Needs: Kcal/ K-30 Kcal Provided: 6798-2719 Kcal Needs Based On: Current weight (84.4 kg) Gm Protein/ Kg : 1.2-1.5 Protein Provided: 101-127 Protein Needs Based On: Current weight (84.4 kg) Fluid Provided: 1 ml/kcal or per MD team Metabolic Cart Study Results: Current Nutrition Intake: Diet Supplements: None Diet Order: Adult Diet Diet Texture: Regular Adult Carbohydrate Restriction: Consistent CHO 2 (1330-7648 Preet, 80 g/meal) Adult Sodium Restriction: 2,000 mg Na Fat Restriction: Cardiac Electrolyte Restriction: Renal Adult Fluid Restriction / 24 hr: 2000 ml fluid Percent Meals Eaten (%): 86% avg x 15 meals (10/02-10/07) Diet Experience and Nutrition History: Diet Education Provided: Will monitor Pertinent home medications: Medications Ordered Prior to Encounter[5] Episcopalian needs: Nutrition Focused Physical Exam: Unable to [...] C without hepatic coma (CMS/HCC) 06/03/2014 Dementia ([facility]) 02/18/2022 Depression Diabetic peripheral neuropathy ([facility]) ESRD (end stage renal disease) on dialysis ([facility]) 09/16/2021 Essential hypertension 11/23/2011 GERD (gastroesophageal reflux disease) Hemorrhoids Hyperlipidemia Hypoparathyroidism 11/23/2011 Infection of AV graft for dialysis ([facility]) 02/18/2022 Added automatically from request for surgery [id number] Insomnia, unspecified 12/22/2021 Methicillin resistant Staphylococcus aureus infection, unspecified site Mild intellectual disabilities 08/30/2019 MSSA bacteremia 03/04/2022 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 06/07/2024 Sensorineural hearing loss, bilateral 01/11/2018 Type 2 diabetes mellitus [2] Past Surgical History: Procedure Laterality Date CATARACT EXTRACTION W/ INTRAOCULAR LENS IMPLANT N/A Cataract Phacoemulsification With Intraocular Lens Implantation from [employer] EXPLORATORY LAPAROTOMY stab incision abdomen EYE SURGERY N/A Eye Surgery from [employer] FOOT SURGERY N/A Surgery Foot Amputation Metatarsal And Toe from [employer] OTHER SURGICAL HISTORY Right Tympanic Membrane Repair - Right Ear from [employer] OTHER SURGICAL HISTORY Right Surgery Right Foot Amputation MTP from [employer] [3] Asenapine, 1 patch, Transdermal, q24h aspirin, [...] Last Admin lidocaine-EPINEPHrine (PF) (Xylocaine W/EPI) 1 %-1:632791 injection - Pyxis Override Pull lidocaine-EPINEPHrine (PF) (Xylocaine W/EPI) 1 %-1:403437 injection - Pyxis Override Pull Current Outpatient [...] 30 capsule 3 [DISCONTINUED] Epoetin Rj-epbx (Retacrit) 89650 UNIT/ML injection Inject 13,400 Units/kg under the [...] Assessment and Plan: Aakash Fernandez is a [place] 64 y.o. male with past history of ESRD on HD MWF, T2DM, HTN, chronic HFrEF, PAD, HLD, IDD/dementia, depression/anxiety, insomnia, chronic HCV, DM foot ulcer c/b OM s/p bilateral transmetarsal amputation, and debility sent from his [facility] to ED for medical evaluationafter refusing care. Declining functional status - Transferred to [facility] a week ago and since arrival refusing HD, to eat, participate, or take medications - sent to ED for medical evaluation and need for higher level of assist/unable to care for self/non-compliance - afebrile, VSS, no acute complaints PLAN - PT/OT consult re: placement - legal guardian is his brother, Chris Fernandez, #[phone] (not answering calls since patient admission) Essential (primary) hypertension - increased carvedilol to 25 mg twice daily, nifedipine XL 60 mg daily (hold for BP <120/80 on dialysis days) At high risk for falls - wheelchair dependent, fall precautions ESRD (end stage renal disease) on dialysis ([facility] - HD (MWF) - renally [...] with chronic kidney disease on chronic dialysis ([facility]) - last A1c 6.3 PLAN - ACHS regular SSI - hold home glargine 5U at bedtime while trend glucose/PO intake Dementia ([facility]) - Delirium precautions - Psych [...] melatonin 3 mg at bedtime Arterial insufficiency ([facility]) - continue aspirin 81 mg [...] systolic (congestive) and diastolic (congestive) heart failure ([facility]) - ECHO 06/27/2022: EF 45%, abnormal diastolic dysfunction - strict I/O, 2 L fluid restriction, cardiac/renal/CCHO2 diet Chronic hepatitis C without hepatic coma ([facility]) - HCV RNA PCR not detected 07/13/2023 History of transmetatarsal amputation of foot ([facility]) - chronic OM 2/2 DM foot ulcers s/p bilateral transmetarsal amputation Inpatient Checklist: Inpatient checklist: - Bowel regimen: ducolax - Code status: Full Code - Diet: PO - DVT prophylaxis: heparin - Disposition: placement (possible APS report filled today) CODE STATUS: Full Code EMERGENCY CONTACT: Extended Emergency Contact Information Primary Emergency Contact: Chris Fernandez Mobile Relation: Legal Guardian Preferred language: Nepalese Solderer Electronic needed? No Secondary Emergency Contact: Mariel Chavez Address: [address] [place] [address] Mobile Relation: Roofer [employer] Solderer Electronic needed? No Leda Kelley MD Human Resources Leader Internal Medicine Pediatrics Certified Skin Piler Pager [phone] [1] Current Facility-Administered Medications: acetaminophen (Tylenol) tablet 650 mg, 650 mg, Oral, q6h PRN, Lala Valdes B, SUPERINTENDENT DISTRIBUTION Asenapine 3.8mg/24 hr patch, 1 patch, Transdermal, q24h, Leda Gaitan MD, 1 patchat 10/06/24 1324 aspirin chewable tablet 81 mg, 81 mg, Oral, Daily, Lucio Gitana B, SUPERINTENDENT DISTRIBUTION, 81 mg at 10/06/24 0828 atorvastatin (Lipitor) tablet 40 mg, 40 mg, Oral, Nightly, Laith Valdesana B, SUPERINTENDENT DISTRIBUTION, 40 mg at 10/06/242029 bisacodyl (Dulcolax) EC tablet 10 mg, 10 mg, Oral, Daily PRN, Lucio Gitana B, SUPERINTENDENT DISTRIBUTION cadexomer iodine (Iodosorb) 0.9 % gel, , Topical, Daily, Tana Wooten MD, Given at 10/04/24 1311 carvedilol (Coreg) tablet 12.5 mg, 12.5 mg, Oral, BID, Lucio, Gitana B, SUPERINTENDENT DISTRIBUTION, 12.5 mg at 10/06/242029 clopidogrel (Plavix) tablet 75 mg, 75 mg, Oral, Daily, Lucio Gitana B, SUPERINTENDENT DISTRIBUTION, 75 mg at 10/06/24 0828 glucose (Glutose) [...] mg, 250 mg, Oral, BID, Lala Valdes SUPERINTENDENT DISTRIBUTION,250 mg at 10/06/242029 heparin (porcine) injection 5,000 Units, 5,000 Units, Subcutaneous, q8h RAFAT, Lala Valdes SUPERINTENDENT DISTRIBUTION, 5,000 Units at 10/07/24 0512 insulin lispro (Admelog) 100 units/mL injection - Correction - Standard Dose, 0- 5 Units, Subcutaneous, TID with meals, Lala Valdes APRN, 1 Units at 10/02/24 1706 insulin lispro (Admelog) injection - Correction - Nighttime Dose, 0-3 Units, Subcutaneous, Twice atnight, Lala Valdes APRN melatonin tablet 3 mg, 3 mg, Oral, Nightly, Lala Valdes, SUPERINTENDENT DISTRIBUTION, 3 mg at 10/06/242029 NIFEdipine XL (Procardia XL) 24 hr tablet 60 mg, 60 mg, Oral, Daily, Leda Gaitan MD polyethylene glycol (Miralax) packet 17 g, 17 g, Oral, Daily, Lala Valdes, SUPERINTENDENT DISTRIBUTION, 17 g at 10/06/2428 sertraline (Zoloft) tablet 75 mg, 75 mg, Oral, Daily, Lala Valdes SUPERINTENDENT DISTRIBUTION, 75 mg at 10/06/24827 Insert peripheral IV, , , Once AND Saline lock IV, , , Once AND sodium chloride 0.9 % flush10 mL, 10 mL, Intravenous, q12h, 10 mL at 10/04/242031 AND sodium chloride 0.9 % flush 10 mL, 10 mL, Intravenous, PRN, Lala Valdes, SUPERINTENDENT DISTRIBUTION traZODone (Desyrel) tablet 100 mg, 100 mg, Oral, Nightly, Lala Valdes, SUPERINTENDENT DISTRIBUTION, 100 mg at 10/06/242029 Facility-Administered Medications Ordered in Other Encounters: lidocaine-EPINEPHrine (PF) (Xylocaine W/EPI) 1 %-1:259242 injection - Pyxis Override Pull, , , , lidocaine-EPINEPHrine (PF) (Xylocaine W/EPI) 1 %-1:140731 injection - Pyxis Override Pull, , , [...] Progressing Flowsheets (Taken 10/06/2024 0700 by Arturo Salazar, TRISTIN) Patient/Family-Specific Goals (Include Timeframe): Patient will be [...] Injury Flowsheets Taken 10/06/2024 1753 by Arturo Salazar, RN Body Position: weight shifting Taken 10/06/2024 0738 by Arturo Salazar, RN Skin Protection: incontinence pads utilized Intervention: [...] Ongoing, Progressing Intervention: Promote Activity and Functional [place] Flowsheets Taken 10/06/2024 1600 by Arturo Salazar RN Activity Assistance Provided: assistance, 2 people Taken 10/05/2024 1024 by Arturo Salazar RN Self-Care Promotion: independence encouraged Problem: Infection Goal: [...] Ability Flowsheets Taken 10/06/2024 1600 by Arturo Salazar RN Activity Assistance Provided: assistance, 2 people Taken 10/06/2024 0738 by Arturo Salazar RN Activity Management: activity adjusted per tolerance Goal: Blood Glucose Level Within Target Range Outcome: Ongoing, Progressing Intervention: Optimize Glycemic Control Flowsheets (Taken 10/07/2024 0127) Hyperglycemia Management: blood glucose monitored Goal: Minimize Hypoglycemia Risk Outcome: Ongoing, Progressing * Progress Notes - Leda Gaitan MD - 10/06/2024 9:56 AM EDT Images from the original note were not included. [facility] Medicine Inpatient Progress Note Patient: Mundo Fenrandez PCP: Leonard Botello MD Date: 10/06/2024 Subjective [...] Assessment and Plan: Aakash Fernandez is a [place] 64 y.o. male with past history of ESRD on HD MWF, T2DM, HTN, chronic HFrEF, PAD, HLD, IDD/dementia, depression/anxiety, insomnia, chronic HCV, DM foot ulcer c/b OM s/p bilateral transmetarsal amputation, and debility sent from his [facility]pc to ED for medical evaluationafter refusing care. Declining functional status - Transferred to fpc a week ago and since arrival refusing HD, to eat, participate, or take medications - sent to ED for medical evaluation and need for higher level of assist/unable to care for self/non-compliance - afebrile, VSS, no acute complaints PLAN - PT/OT consult re: placement - legal guardian is his brother, Chris Fernandez, #[phone] (not answering calls since patient admission) At high risk for falls - wheelchair dependent, fall precautions ESRD (end stage renal disease) on dialysis ([facility]) - HD (MWF) - renally dose meds [...] with chronic kidney disease on chronic dialysis ([facility]) - last A1c 6.3 PLAN - ACHS regular SSI - hold home glargine 5U at bedtime while trend glucose/PO intake Dementia ([facility]) - Delirium precautions - Psych recommended to [...] BP <120/80 on dialysis days) Arterial insufficiency ([facility]) - continue aspirin 81 mg [...] systolic (congestive) and diastolic (congestive) heart failure ([facility]) - ECHO 06/27/2022: EF 45%, abnormal diastolic [...] Fernandez Mobile Relation: Legal Guardian Preferred language: Nepalese Solderer Electronic needed? No Secondary Emergency Contact: Mariel Chavez Address: [address] [place] [address] Mobile Relation: Roofer [employer] Solderer Electronic needed? No Leda Kelley MD Human Resources Leader Internal Medicine Pediatrics Certified Skin Piler Pager [phone] [1] Current Facility-Administered Medications: acetaminophen (Tylenol) tablet 650 mg, 650 mg, Oral, q6h PRN, Laith Valdesana B, SUPERINTENDENT DISTRIBUTION Asenapine 3.8mg/24 hr patch, 1 patch, Transdermal, q24h, Leda Gaitan MD, 1 patchat 10/05/24 1427 aspirin chewable tablet 81 mg, 81 mg, Oral, Daily, Lucio Gitana B, SUPERINTENDENT DISTRIBUTION, 81 mg at 10/06/24 0828 atorvastatin (Lipitor) tablet 40 mg, 40 mg, Oral, Nightly, Laith Valdesana B, SUPERINTENDENT DISTRIBUTION, 40 mg at 10/05/24 2105 bisacodyl (Dulcolax) EC tablet 10 mg, 10 mg, Oral, Daily PRN, Lucio Gitana B, SUPERINTENDENT DISTRIBUTION cadexomer iodine (Iodosorb) 0.9 % gel, , Topical, Daily, Tana Wooten MD, Given at 10/04/24 1311 carvedilol (Coreg) tablet 12.5 mg, 12.5 mg, Oral, BID, Liath Valdesana B, SUPERINTENDENT DISTRIBUTION, 12.5 mg at 10/06/24 0828 clopidogrel (Plavix) tablet 75 mg, 75 mg, Oral, Daily, Lala Valdes, SUPERINTENDENT DISTRIBUTION, 75 mg at 10/06/24 0828 glucose (Glutose) 40 % oral gel 15-30 grams of glucose, 15-30 grams of glucose, Sublingual, q15 minPRN OR dextrose 10 % (D10W) bolus 125 mL, 125 mL, Intravenous, q15 min PRN OR dextrose 10 %(D10W) bolus 250 mL, 250 mL, Intravenous, q15 min PRN OR glucagon (human recombinant) injection1 mg, 1 mg, Intramuscular, q15 min PRN, Lala Valdes, SUPERINTENDENT DISTRIBUTION divalproex sprinkle (Depakote Sprinkle) DR capsule 250 mg, 250 mg, Oral, BID, Lala Valdes, SUPERINTENDENT DISTRIBUTION,250 mg at 10/06/24 0828 heparin (porcine) injection 5,000 Units, 5,000 Units, Subcutaneous, q8h RAFAT, Lala Valdes SUPERINTENDENT DISTRIBUTION, 5,000 Units at 10/06/24 0556 insulin lispro (Admelog) 100 units/mL injection - Correction - Standard Dose, 0- 5 Units, Subcutaneous, TID with meals, Lala Valdes, SUPERINTENDENT DISTRIBUTION, 1 Units at 10/02/24 1706 insulin lispro (Admelog) injection - Correction - Nighttime Dose, 0-3 Units, Subcutaneous, Twice atnight, Lala Valdes SUPERINTENDENT DISTRIBUTION melatonin tablet 3 mg, 3 mg, Oral, Nightly, Lala Valdes, SUPERINTENDENT DISTRIBUTION, 3 mg at 10/05/242104 NIFEdipine XL (Procardia XL) 24 hr tablet 30 mg, 30 mg, Oral, Daily, Laith Valdesana B, SUPERINTENDENT DISTRIBUTION, 30 mg at10/06/24 0828 polyethylene glycol (Miralax) packet 17 g, 17 g, Oral, Daily, Lala Valdes, SUPERINTENDENT DISTRIBUTION, 17 g at 10/06/24 0828 sertraline (Zoloft) tablet 75 mg, 75 mg, Oral, Daily, Laith Valdesana B, SUPERINTENDENT DISTRIBUTION, 75 mg at 10/06/24 0828 Insert peripheral IV, , , Once AND Saline lock IV, , , Once AND sodium chloride 0.9 % flush10 mL, 10 mL, Intravenous, q12h, 10 mL at 10/04/242031 AND sodium chloride 0.9 % flush 10 mL, 10 mL, Intravenous, PRN, Lucio, Gitana B, SUPERINTENDENT DISTRIBUTION traZODone (Desyrel) tablet 100 mg, 100 mg, Oral, Nightly, LucioLala B, SUPERINTENDENT DISTRIBUTION, 100 mg at 10/05/242104 Facility-Administered Medications Ordered [...] Intervention: Prevent Skin Injury Flowsheets (Taken 10/06/2024 0738) Skin Protection: incontinence pads utilized Intervention: Prevent [...] Ongoing, Progressing Intervention: Promote Activity and Functional [place] Flowsheets (Taken 10/05/2024 0800) Activity Assistance Provided: [...] utilized Taken 10/05/2024 1029 by Arturo Salazar, box sealing machine operator/Support System Care: self-care encouraged Goal: Optimal Functional Ability Outcome: Ongoing, Progressing Intervention: Optimize Functional Ability Flowsheets (Taken 10/05/2024 0800 by Arturo Salazar, TRISTIN) Activity Management: activity adjusted per tolerance Activity [...] from the original note were not included. [facility] Medicine Inpatient Progress Note Patient: Mundo [...] Assessment and Plan: Aakash Fernandez is a [place] 64 y.o. male with past history of ESRD on HD MWF, T2DM, HTN, chronic HFrEF, PAD, HLD, IDD/dementia, depression/anxiety, insomnia, chronic HCV, DM foot ulcer c/b OM s/p bilateral transmetarsal amputation, and debility sent from his fpc to ED for medical evaluationafter refusing care. Declining functional status - Transferred to fpc a week ago and since arrival refusing HD, to eat, participate, or take medications - sent to ED for medical evaluation and need for higher level of assist/unable to care for self/non-compliance - afebrile, VSS, no acute complaints PLAN - PT/OT consult re: placement - legal guardian is his brother, Chris Fernandez, #[phone] (not answering calls since patient admission) At high risk for falls - wheelchair dependent, fall precautions ESRD (end stage renal disease) on dialysis ([facility] - HD (MWF) - renally [...] with chronic kidney disease on chronic dialysis ([facility]) - last A1c 6.3 PLAN - ACHS regular SSI - hold home glargine 5U at bedtime while trend glucose/PO intake Dementia ([facility]) - Delirium precautions - Psych [...] systolic (congestive) and diastolic (congestive) heart failure ([facility]) - ECHO 06/27/2022: EF 45%, abnormal diastolic dysfunction - strict I/O, 2 L fluid restriction, cardiac/renal/CCHO2 diet Chronic hepatitis C without hepatic coma ([facility]) - HCV RNA PCR not detected 07/13/2023 History of transmetatarsal amputation of foot ([facility] - chronic OM 2/2 DM foot ulcers s/p bilateral transmetarsal amputation Inpatient Checklist: Inpatient checklist: - Bowel regimen: ducolax - Code status: Full Code - Diet: PO - DVT prophylaxis: heparin - Disposition: placement CODE STATUS: Full Code EMERGENCY CONTACT: Extended Emergency Contact Information Primary Emergency Contact: Chris Fernandez Mobile Relation: Legal Guardian Preferred language: Nepalese Solderer Electronic needed? No Secondary Emergency Contact: Mariel Chavez Address: [address] [place] [address] of [facility] Mobile Relation: Roofer [employer] Solderer Electronic needed? No Leda Kelley MD Human Resources Leader Internal Medicine Pediatrics Certified Skin Piler Pager [phone] [1] Current Facility-Administered Medications: acetaminophen (Tylenol) tablet 650 mg, 650 mg, Oral, q6h PRN, Lala Valdes, SUPERINTENDENT DISTRIBUTION Asenapine 3.8mg/24 hr patch, 1 patch, Transdermal, q24h, Leda Gaitan MD, 1 patchat 10/04/24 1342 aspirin chewable tablet 81 mg, 81 mg, Oral, Daily, Lala Valdes, SUPERINTENDENT DISTRIBUTION, 81 mg at 10/05/24 0855 atorvastatin (Lipitor) tablet 40 mg, 40 mg, Oral, Nightly, Lala Valdes, SUPERINTENDENT DISTRIBUTION, 40 mg at 10/04/242031 bisacodyl (Dulcolax) EC tablet 10 mg, 10 mg, Oral, Daily PRN, Lala Valdes, SUPERINTENDENT DISTRIBUTION cadexomer iodine (Iodosorb) 0.9 % gel, , Topical, Daily, Tana Wooten MD, Given at 10/04/24 1311 carvedilol (Coreg) tablet 12.5 mg, 12.5 mg, Oral, BID, Lala Valdes, SUPERINTENDENT DISTRIBUTION, 12.5 mg at 10/05/24 0855 clopidogrel (Plavix) tablet 75 mg, 75 mg, Oral, Daily, Lala Valdes, SUPERINTENDENT DISTRIBUTION, 75 mg at 10/05/24 0855 glucose (Glutose) 40 % oral gel 15-30 grams of glucose, 15-30 grams of glucose, Sublingual, q15 minPRN OR dextrose 10 % (D10W) bolus 125 mL, 125 mL, Intravenous, q15 min PRN OR dextrose 10 %(D10W) bolus 250 mL, 250 mL, Intravenous, q15 min PRN OR glucagon (human recombinant) injection1 mg, 1 mg, Intramuscular, q15 min PRN, Lala Valdes, SUPERINTENDENT DISTRIBUTION divalproex sprinkle (Depakote Sprinkle) DR capsule 250 mg, 250 mg, Oral, BID, Lala Valdes, SUPERINTENDENT DISTRIBUTION,250 mg at 10/05/24 0855 heparin (porcine) injection 5,000 Units, 5,000 Units, Subcutaneous, q8h RAFAT, Lala Valdes SUPERINTENDENT DISTRIBUTION, 5,000 Units at 10/05/24 0517 insulin lispro (Admelog) 100 units/mL injection - Correction - Standard Dose, 0- 5 Units, Subcutaneous, TID with meals, Lala Valdes SUPERINTENDENT [employer]RIBUTION, 1 Units at 10/02/24 1706 insulin lispro (Admelog) injection - Correction - Nighttime Dose, 0-3 Units, Subcutaneous, Twice atnight, Lucio Gitana B, SUPERINTENDENT DISTRIBUTION melatonin tablet 3 mg, 3 mg, Oral, Nightly, Lucio, Gitana B, SUPERINTENDENT DISTRIBUTION, 3 mg at 10/04/242031 mupirocin (Bactroban) 2 % ointment 1 Application, 1 Application, Each Nostril, BID, Tana Wooten MD, 1 Application at 10/05/24 0858 NIFEdipine XL (Procardia XL) 24 hr tablet 30 mg, 30 mg, Oral, Daily, Lucio, Gitana B, SUPERINTENDENT DISTRIBUTION, 30 mg at10/05/24855 polyethylene glycol (Miralax) packet 17 g, 17 g, Oral, Daily, Lucio, Gitana B, SUPERINTENDENT DISTRIBUTION, 17 g at 10/05/24855 sertraline (Zoloft) tablet 75 mg, 75 mg, Oral, Daily, Lucio, Gitana B, SUPERINTENDENT DISTRIBUTION, 75 mg at 10/05/2456 Insert peripheral IV, , , Once AND Saline lock IV, , , Once AND sodium chloride 0.9 % flush10 mL, 10 mL, Intravenous, q12h, 10 mL at 10/04/242031 AND sodium chloride 0.9 % flush 10 mL, 10 mL, Intravenous, PRN, Lucio, Gitana B, SUPERINTENDENT DISTRIBUTION traZODone (Desyrel) tablet 100 mg, 100 mg, Oral, Nightly, Lucio, Gitana B, SUPERINTENDENT DISTRIBUTION, 100 mg at 10/04/242031 Facility-Administered Medications Ordered in Other Encounters: lidocaine-EPINEPHrine (PF) (Xylocaine W/EPI) 1 %-1:197276 injection - Pyxis Override Pull, , , , lidocaine-EPINEPHrine (PF) (Xylocaine W/EPI) 1 %-1:828667 injection - Pyxis Override Pull, , , [...] VTE (Venous Thromboembolism) Risk Flowsheets (Taken 10/05/2024 08) VTE Prevention/Management: SCDs (sequential compression devices) off [...] Ongoing, Progressing Intervention: Promote Activity and Functional [place] Flowsheets (Taken 10/05/2024 0800) Activity Assistance Provided: [...] (HOB) Positioning: HOB at 30 degrees Taken 10/04/2024 2000 by Serene Boothe RN Activity Management: activity [...] Identify and Manage Contributors Flowsheets Taken 10/05/2024 0350 by Serene Boothe RN Self-Care Promotion: BADL [...] Ongoing, Progressing Intervention: Promote Activity and Functional [place] Flowsheets Taken 10/05/2024 0350 by Serene Boothe RN Self-Care Promotion: BADL [...] compassionate listening presence, encouragement and spiritual support. Vat Washer remains available as needed. Patient Profile: Spiritual [...] from the original note were not included. [facility] Medicine Inpatient Progress Note Patient: Mundo [...] Assessment and Plan: Aakash Fernandez is a [place] 64 y.o. male with past history of ESRD on HD MWF, T2DM, HTN, chronic HFrEF, PAD, HLD, IDD/dementia, depression/anxiety, insomnia, chronic HCV, DM foot ulcer c/b OM s/p bilateral transmetarsal amputation, and debility sent from his fpc to ED for medical evaluationafter refusing care. Declining functional status - Transferred to fpc a week ago and since arrival refusing HD, to eat, participate, or take medications - sent to ED for medical evaluation and need for higher level of assist/unable to care for self/non-compliance - afebrile, VSS, no acute complaints PLAN - PT/OT consult re: placement - legal guardian is his brother, Chris Fernandez, #[phone] At high risk for falls - wheelchair dependent, fall precautions ESRD (end stage renal disease) on dialysis ([facility] - HD (MWF) - renally [...] with chronic kidney disease on chronic dialysis ([facility]) - last A1c 6.3 PLAN - ACHS regular SSI - hold home glargine 5U at bedtime while trend glucose/PO intake Dementia ([facility]) - Delirium precautions - Psych [...] Fernandez Mobile Relation: Legal Guardian Preferred language: Nepalese Solderer Electronic needed? No Secondary Emergency Contact: Mariel Chavez Address: [address] [place] [address] of [facility] Mobile Relation: Roofer [employer] Solderer Electronic needed? No Leda Kelley MD Human Resources Leader Internal Medicine Pediatrics Certified Skin Piler Pager [phone] [1] Current Facility-Administered Medications: acetaminophen (Tylenol) tablet 650 mg, 650 mg, Oral, q6h PRN, Lala Valdes, SUPERINTENDENT DISTRIBUTION alteplase (Cathflo Activase) injection 4 mg, 4 mg, Intracatheter, PRN, RustDaphne, SUPERINTENDENT DISTRIBUTION, DNP aspirin chewable tablet 81 mg, 81 mg, Oral, Daily, Lala Valdes B, SUPERINTENDENT DISTRIBUTION, 81 mg at 10/03/24 0819 atorvastatin (Lipitor) tablet 40 mg, 40 mg, Oral, Nightly, Lala Valdes, SUPERINTENDENT DISTRIBUTION, 40 mg at 10/03/242028 bisacodyl (Dulcolax) EC tablet 10 mg, 10 mg, Oral, Daily PRN, Lala Valdes B, SUPERINTENDENT DISTRIBUTION cadexomer iodine (Iodosorb) 0.9 % gel, , Topical, Daily, Tana Wooten MD, Given at 10/03/24 0821 carvedilol (Coreg) tablet 12.5 mg, 12.5 mg, Oral, BID, Lala aVldes, SUPERINTENDENT DISTRIBUTION, 12.5 mg at 10/03/242029 clopidogrel (Plavix) tablet 75 mg, 75 mg, Oral, Daily, Lala Valdes, SUPERINTENDENT DISTRIBUTION, 75 mg at 10/03/24 0819 glucose (Glutose) 40 % oral gel 15-30 grams of glucose, 15-30 grams of glucose, Sublingual, q15 minPRN OR dextrose 10 % (D10W) bolus 125 mL, 125 mL, Intravenous, q15 min PRN OR dextrose 10 %(D10W) bolus 250 mL, 250 mL, Intravenous, q15 min PRN OR glucagon (human recombinant) injection1 mg, 1 mg, Intramuscular, q15 min PRN, Lala Valdes, SUPERINTENDENT DISTRIBUTION divalproex sprinkle (Depakote Sprinkle) DR capsule 250 mg, 250 mg, Oral, BID, Lala Valdes, SUPERINTENDENT DISTRIBUTION,250 mg at 10/03/24 2030 heparin (porcine) injection 5,000 Units, 5,000 Units, Subcutaneous, q8h RAFAT, Lala Valdes, SUPERINTENDENT DISTRIBUTION, 5,000 Units at 10/04/24 0532 insulin lispro (Admelog) 100 units/mL injection - Correction - Standard Dose, 0- 5 Units, Subcutaneous, TID with meals, Lala Valdes SUPERINTENDENT DISTRIBUTION, 1 Units at 10/02/24 1706 insulin lispro (Admelog) injection - Correction - Nighttime Dose, 0-3 Units, Subcutaneous, Twice atnight, Lala Valdes APRN melatonin tablet 3 mg, 3 mg, Oral, Nightly, Luico, Gitana B, SUPERINTENDENT DISTRIBUTION, 3 mg at 10/03/242029 mupirocin (Bactroban) 2 % ointment 1 Application, 1 Application, Each Nostril, BID, Tana Wooten MD, 1 Application at 10/03/242029 NIFEdipine XL (Procardia XL) 24 hr tablet 30 mg, 30 mg, Oral, Daily, Lucio, Gitana B, SUPERINTENDENT DISTRIBUTION, 30 mg at10/03/24818 polyethylene glycol (Miralax) packet 17 g, 17 g, Oral, Daily, Lucio, Gitana B, SUPERINTENDENT DISTRIBUTION, 17 g at 10/03/24818 sertraline (Zoloft) tablet 75 mg, 75 mg, Oral, Daily, Lucio, Gitana B, SUPERINTENDENT DISTRIBUTION, 75 mg at 10/03/24818 Insert peripheral IV, , , Once AND Saline lock IV, , , Once AND sodium chloride 0.9 % flush10 mL, 10 mL, Intravenous, q12h, 10 mL at 10/03/242030 AND sodium chloride 0.9 % flush 10 mL, 10 mL, Intravenous, PRN, Lucio, Gitana B, SUPERINTENDENT DISTRIBUTION sodium citrate anticoagulant 4 % flush 6 mL, 6 mL, Intracatheter, PRN, Antionet, Daphne Jacinto APRN, DNP traZODone (Desyrel) tablet 100 mg, 100 mg, Oral, Nightly, Lucio, Gitana B, SUPERINTENDENT DISTRIBUTION, 100 mg at 10/03/242029 Facility-Administered Medications Ordered in Other Encounters: lidocaine-EPINEPHrine (PF) (Xylocaine W/EPI) 1 %-1:433377 injection - Pyxis Override Pull, , , , lidocaine-EPINEPHrine (PF) (Xylocaine W/EPI) 1 %-1:532784 injection - Pyxis Override Pull, , , [...] 28 days, Once Release to patient in [facility]: Immediate Hepatitis panel, acute Every 28 days, Once Release to patient in [facility]: Immediate Zechariah Tovar MD Nephrology [1] aspirin, [...] Intervention: Prevent or Manage Infection Flowsheets (Taken 10/04/2024121) Infection Management: aseptic technique maintained Isolation Precautions: [...] Ongoing, Progressing Intervention: Promote Activity and Functional [place] Flowsheets (Taken 10/04/2024 012) Activity Assistance Provided: [...] medication Intervention: Prevent Infection Flowsheets (Taken 10/02/2024 1757) Infection Prevention: hand hygiene promoted Goal: Optimal Comfort and Wellbeing Outcome: Ongoing, Progressing Intervention: Monitor Pain and Promote Comfort Flowsheets (Taken 10/02/2024 175) Pain Management Interventions: declines Intervention: Provide Person-Centered Care Flowsheets (Taken 10/02/2024 175) Trust Relationship/Rapport: care explained Goal: Readiness for Transition of Care Outcome: Ongoing, Progressing Intervention: Mutually Develop Transition Plan Flowsheets (Taken 10/03/2024 130) Anticipated Changes Related to Illness: inability to care for self Concerns to be Addressed: cognitive/perceptual * Progress Notes - Clau Vo RN - 10/03/2024 1:03 PM EDT Case Management Adult Progress Note Mundo Fernandez 64 y.o. male CSN: [id number] Admission: 09/30/2024 3:29 PM Primary Problem: Declining functional status Anticipated Discharge Date: TBD Has Discharge Plans Changed? No Additional Comments POC discussed with medical team, patient is medically ready for discharge pending discharge plan. CM called patients legal guardian Chris, however no answer and unable to leave voicemail. CM spoke with patients caregiver Mariel who verified guardians phone number and states he is out of town and will be back tomorrow to discuss. Per Mariel, patient is unable to come back to her home as SCL waiver has and she feels patient is more appropriate for SNF. Patient was previously at [facility] for over a year for LTC. CM will call guardian tomorrow to discuss dc plan. CM will continue to follow and will remain available via secure chat to assist as needed. Clau Vo RN * Progress Notes - Leda Gaitan MD - 10/03/2024 8:38 AM EDT Images from the original note were not included. [facility] Medicine Inpatient Progress Note Patient: Mundo Fernandez PCP: Leonard Botello MD Date: 10/03/2024 Subjective Was not interactive with me today. We are still trying to get ahold with his brother (guardian) to determine placement [...] Assessment and Plan: Aakash Fernandez is a [place] 64 y.o. male with past history of ESRD on HD MWF, T2DM, HTN, chronic HFrEF, PAD, HLD, IDD/dementia, depression/anxiety, insomnia, chronic HCV, DM foot ulcer c/b OM s/p bilateral transmetarsal amputation, and debility sent from his fpc to ED for medical evaluationafter refusing care. Declining functional status - Transferred to fpc a week ago and since arrival refusing HD, to eat, participate, or take medications - sent to ED for medical evaluation and need for higher level of assist/unable to care for self/non-compliance - afebrile, VSS, no acute complaints PLAN - PT/OT consult re: placement - legal guardian is his brother, Chris Fernandez, #[phone] At high risk for falls - wheelchair dependent, fall precautions ESRD (end stage renal disease) on dialysis ([facility]) - Missed HD (MWF) , last session [...] with chronic kidney disease on chronic dialysis ([facility]) - last A1c 4.8% over a year ago - presenting glucose 185, repeat A1c pending PLAN - ACHS regular SSI - hold home glargine 5U at bedtime while trend glucose/PO intake Dementia ([facility]) - Delirium precautions - Psych [...] BP <120/80 on dialysis days) Arterial insufficiency ([facility]) - continue aspirin 81 mg [...] systolic (congestive) and diastolic (congestive) heart failure ([facility]) - ECHO 06/27/2022: EF 45%, [...] Fernandez Mobile Relation: Legal Guardian Preferred language: Nepalese Solderer Electronic needed? No Secondary Emergency Contact: Mariel Chavez Address: [address] [place] [address] Mobile Relation: Roofer Vinyl Coating Solderer Electronic needed? No Leda Kelley MD Human Resources Leader Internal Medicine Pediatrics Certified Skin Piler Pager [phone] [1] Current Facility-Administered Medications: acetaminophen (Tylenol) tablet 650 mg, 650 mg, Oral, q6h PRN, Lucio, Gitana B, SUPERINTENDENT DISTRIBUTION aspirin chewable tablet 81 mg, 81 mg, Oral, Daily, Laith Valdesana B, SUPERINTENDENT DISTRIBUTION, 81 mg at 10/03/24818 atorvastatin (Lipitor) tablet 40 mg, 40 mg, Oral, Nightly, Lucio, Gitana B, SUPERINTENDENT DISTRIBUTION, 40 mg at 10/02/242056 bisacodyl (Dulcolax) EC tablet 10 mg, 10 mg, Oral, Daily PRN, Lucio Gitana B, SUPERINTENDENT DISTRIBUTION cadexomer iodine (Iodosorb) 0.9 % gel, , Topical, Daily, Tana Wooten MD, Given at 10/03/24820 carvedilol (Coreg) tablet 12.5 mg, 12.5 mg, Oral, BID, Lucio Gitana B, SUPERINTENDENT DISTRIBUTION, 12.5 mg at 10/03/24818 clopidogrel (Plavix) tablet 75 mg, 75 mg, Oral, Daily, Lucio, Gitana B, SUPERINTENDENT DISTRIBUTION, 75 mg at 10/03/24 08 glucose (Glutose) 40 % oral gel 15-30 grams of glucose, 15-30 grams of glucose, Sublingual, q15 minPRN OR dextrose 10 % (D10W) bolus 125 mL, 125 mL, Intravenous, q15 min PRN OR dextrose 10 %(D10W) bolus 250 mL, 250 mL, Intravenous, q15 min PRN OR glucagon (human recombinant) injection1 mg, 1 mg, Intramuscular, q15 min PRN, Lala Valdes SUPERINTENDENT DISTRIBUTION divalproex sprinkle (Depakote Sprinkle) DR capsule 250 mg, 250 mg, Oral, BID, Lala Valdes, SUPERINTENDENT DISTRIBUTION,250 mg at 10/03/24 08 heparin (porcine) injection 5,000 Units, 5,000 Units, Subcutaneous, q8h RAFAT, Lala Valdes SUPERINTENDENT DISTRIBUTION, 5,000 Units at 10/03/24 0543 insulin lispro (Admelog) 100 units/mL injection - Correction - Standard Dose, 0- 5 Units, Subcutaneous, TID with meals, Lala Valdes APRN, 1 Units at 10/02/24 1706 insulin lispro (Admelog) injection - Correction - Nighttime Dose, 0-3 Units, Subcutaneous, Twice atnight, Lala Valdes SUPERINTENDENT DISTRIBUTION melatonin tablet 3 mg, 3 mg, Oral, Nightly, Lala Valdes SUPERINTENDENT DISTRIBUTION, 3 mg at 10/02/242056 mupirocin (Bactroban) 2 % ointment 1 Application, 1 Application, Each Nostril, BID, Tana Wooten MD, 1 Application at 10/03/24818 NIFEdipine XL (Procardia XL) 24 hr tablet 30 mg, 30 mg, Oral, Daily, Lala Valdes, SUPERINTENDENT DISTRIBUTION, 30 mg at10/03/24 08 polyethylene glycol (Miralax) packet 17 g, 17 g, Oral, Daily, Lala Valdes, SUPERINTENDENT DISTRIBUTION, 17 g at 10/03/24 08 sertraline (Zoloft) tablet 75 mg, 75 mg, Oral, Daily, Lala Valdes, SUPERINTENDENT DISTRIBUTION, 75 mg at 10/03/24 08 Insert peripheral IV, , , Once AND Saline lock IV, , , Once AND sodium chloride 0.9 % flush10 mL, 10 mL, Intravenous, q12h, 10 mL at 10/03/24 0819 AND sodium chloride 0.9 % flush 10 mL, 10 mL, Intravenous, PRN, Lucio, Gitana B, SUPERINTENDENT DISTRIBUTION traZODone (Desyrel) tablet 100 mg, 100 mg, Oral, Nightly, Lucio, Gitana B, SUPERINTENDENT DISTRIBUTION, 100 mg at 10/02/242056 Facility-Administered Medications Ordered in Other Encounters: lidocaine-EPINEPHrine (PF) (Xylocaine W/EPI) 1 %-1:866497 injection - Pyxis Override Pull, , , , lidocaine-EPINEPHrine (PF) (Xylocaine W/EPI) 1 %-1:535837 injection - Pyxis Override Pull, , , [...] anxiety, and depression who initially presented to [facility] from fpc with worsening foot wounds, lack of medication [...] ED as follows: (from Mariel, caregiver at fpc, ) She states that the patient has been in a fdc for the last year with a high level of assist. One week ago he was transferred from the fdc to her fpc under her groups care. She says since [...] that patient had been living at a fdc until about 2 weeks ago. While he was at the fdc, they had concerns about the care he was receiving. They moved him to a fpc with the hope that this would be happier environment for him. Since he moved to the fpc, he has not been taking his medications. [...] recently prescribed by Debbie Newberry NP at [facility] in [place] and Jt Fowler MD in [place]. Inpatient: unable to assess due Previous suicide attempts: unable to assess Past trauma history: unable to assess Past Medical History[1] Allergies[2] Family History: Psychiatric Diagnoses: unable to assess Suicides: unable to assess Social History: Education: Unknown Current living situation: Most recently was living in fpc Family: Relatives listed upon chart review include sister, brother, and nephew. Brother is legal guardian Romantic relationship: unable to assess Employment: unable to assess Legal history: unable to assess Support system: Caregiver, brother (POA) and [id number] Substance use History: Tobacco Use: unable to [...] 108 (H) 74 - 99 mg/dL Comment Exhaust Emissions Automotive Technician ID Viridiana Pichardo Device ID [id number] Specimen Type POC Capillary POCT glucose meter Collection Time: 10/02/24 4:43 PM Result Value Ref Range POCT Glucose 172 (H) 74 - 99 mg/dL Comment Exhaust Emissions Automotive Technician ID Viridiana Pichardo Device ID [id number] Specimen Type POC Capillary POCT glucose meter Collection Time: 10/02/24 9:06 PM Result Value Ref Range POCT Glucose 143 (H) 74 - 99 mg/dL Comment Exhaust Emissions Automotive Technician ID Ashia Daniels Device ID [id number] Specimen Type POC Capillary Renal Function Panel, [...] 110 (H) 74 - 99 mg/dL Comment Exhaust Emissions Automotive Technician ID Precious Thomason Device ID [id number] Specimen Type POC Capillary ANTIPSYCHOTIC MONITORING TOOL [...] 30 mg QTc: 464 EKG Date/Time: 09/30/24 1359 Patient is aged [age]y with diagnosis of [...] indicated. Patient IS NOT holdable under [place]RS 202A as he DOES NOT meet ALL hold [...] IDD/dementia, anxiety, and depression who presented to [facility] ED from facility (fpc) with concerns of non-adherence to medication regimen [...] to first call physician/provider: Dr. Kelley via [employer] chat Berto Mendez, MS3 I saw and [...] Dementia (CMS/HCC) 02/18/2022 Depression Diabetic peripheral neuropathy (CMS/HCC) ESRD (end stage renal disease) on dialysis (CMS/HCC) 09/16/2021 Essential hypertension 11/23/2011 GERD (gastroesophageal reflux disease) Hemorrhoids Hyperlipidemia Hypoparathyroidism 11/23/2011 Infection of AV graft for dialysis ([facility]) 02/18/2022 Added automatically from request for surgery [id number] Insomnia, unspecified 12/22/2021 Methicillin resistant Staphylococcus aureus [...] APRN, DNP - 10/03/2024 8:26 AM EDT Nephrology Progress Note Patient: Mundo [...] ESRD (end stage renal disease) on dialysis ([facility]) Essential (primary) hypertension Type 2 diabetes mellitus with chronic kidney disease on chronic dialysis ([facility]/HCC) Wears hearing aid in both ears At high risk for falls Insomnia, unspecified Chronic combined systolic (congestive) and diastolic (congestive) heart failure ([facility]) Dementia ([facility]) Chronic hepatitis C without hepatic coma ([facility] Arterial insufficiency ([facility]) Gastroesophageal reflux disease without esophagitis Mixed hyperlipidemia Anxiety and depression Mild intellectual disabilities Sensorineural hearing loss, bilateral History of transmetatarsal amputation of foot ([facility]) Electrolyte and fluid disorder Anemia in chronic kidney disease (CODE) Chronic kidney disease-mineral and bone disorder (CKD-MBD) 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 ESRD (end stage renal disease) ([facility]) Medications: Current Medications: Current Scheduled [...] of hearing, answers appropriately, follows commands ACCESS: RUAngel AVF Laboratory: Results from last 7 days Lab Units 10/02/24 0536 09/30/24 1650 WBC 10*3/uL 7.44 8.92 HEMOGLOBIN g/dL 10.4* 10.4* HEMATOCRIT % 29.8* 29.8* MCV fL 90 91 PLATELETS 10*3/uL 119* 121* Results from last 7 days Lab Units 10/03/24 0321 10/02/24 0536 09/30/24 1650 SODIUM mmol/L 131* 132* 131* POTASSIUM mmol/L 3.9 3.8 3.0* CHLORIDE mmol/L 96* 94* 90* CO2 mmol/L BUN mg/dL 24* 37* 29* CREATININE mg/dL [...] bilateral transmetarsal amputation, and debility presented to [facility] on 09/30 after refusing care at his fpc. Nephrology consulted for dialysis. Assessment: #ESRD on iHD - MWF at [facility] [address] Lucas - AccesS: ISAURO [...] Nephrololgy Epic Chat Note to patient: The 21st Century Cures [...] Ongoing, Progressing Intervention: Promote Activity and Functional [place] Flowsheets (Taken 10/03/202418) Activity Assistance Provided: assistance, [...] Care Review Outcome: Ongoing, Progressing Flowsheets (Taken 10/02/2024 3234) Progress: improving Plan of Care Reviewed With: [...] Progress Note Mundo Fernandez 64 y.o. male [facility]: [id number] Admission: 09/30/2024 3:29 PM Primary Problem: Declining functional status Public Health Technician reviewed chart and spoke with patient caregiverMariel [phone] to complete this Initial Case Management Assessment. PCP: Leonard Botello MD, not confirmed Emergency Contact: Extended Emergency Contact Information Primary Emergency Contact: Chris Fernandez Mobile Relation: Legal Guardian Preferred language: Nepalese Solderer Electronic needed? No Secondary Emergency Contact: Mariel Chavez Address: [address] [place] [address] Mobile Relation: Roofer [employer] Solderer Electronic needed? No Insurance: Primary Visit Coverage Payer Plan Sponsor Code Group Number Group Name MEDICARE MEDICARE A & B Primary Visit Coverage Subscriber Subscriber ID Subscriber Name Subscriber SSN Subscriber Address [id number] MUNDO FERNANDEZ [id number] [place] [phone] Secondary Visit Coverage Payer Plan Sponsor Code Group Number Group Name MEDICAID-[facility] MEDICAID [facility] Secondary Visit Coverage Subscriber Subscriber ID Subscriber Name Subscriber SSN Subscriber Address [id number] MUNDO FERNANDEZ [id number] [place] [id number] Patient information: Primary Caregiver: Private caregiver Accompanied by/Relationship: no family friends at the bedside Support System: Immediate family Daily Living Activities: Functional Status: Minimum assistance Living Arrangements: Friends Type of Residence: Private residence [address] [place] [phone] Smoker in the Home?: No Current DME: [...] Wheels Transportation . Living Will/Advance Directive/Power of Environmental Field Office Manager /Guardian: Have you reviewed your Advance Directive [...] to discuss discharge planning. CM called Mariel Chavez who is listed as second person on emergency contacts. Per Mariel report, patient was at [facility] one year ago, discharged to [facility]. [facility] discharged patient approximately 1 week ago to live with Mariel who is a paid caregiver through an agency, however, Mariel was not being compensated for the care due to SCL waiver while patient was at [facility]. CM will continue to reach patients legal guardian to discuss dc planning. Birdie Damico RN * Progress Notes - Leda Gaitan MD - 10/02/2024 12:20 PM EDT Images from the original note were not included. [facility] Medicine Inpatient Progress Note Patient: Mundo [...] Assessment and Plan: Aakash Fernandez is a [place] 64 y.o. male with past history of ESRD on HD MWF, T2DM, HTN, chronic HFrEF, PAD, HLD, IDD/dementia, depression/anxiety, insomnia, chronic HCV, DM foot ulcer c/b OM s/p bilateral transmetarsal amputation, and debility sent from his [facility] to ED for medical evaluationafter refusing care. Declining functional status - Transferred to fpc a week ago and since arrival refusing HD, to eat, participate, or take medications - sent to ED for medical evaluation and need for higher level of assist/unable to care for self/non-compliance - afebrile, VSS, no acute complaints PLAN - PT/OT consult re: placement - legal guardian is his brother, Chris Fernandez, #[phone] At high risk for falls - wheelchair dependent, fall precautions ESRD (end stage renal disease) on dialysis ([facility] - Missed HD (MWF) , [...] chronic kidney disease on chronic dialysis (CMS/HCC) - last A1c 4.8% over a year ago - presenting glucose 185, repeat A1c pending PLAN - ACHS regular SSI - hold home glargine 5U at bedtime while trend glucose/PO intake Dementia ([facility]) - Delirium precautions - Pharm [...] BP <120/80 on dialysis days) Arterial insufficiency ([facility]) - continue aspirin 81 mg [...] systolic (congestive) and diastolic (congestive) heart failure ([facility]) - ECHO 06/27/2022: EF 45%, abnormal diastolic dysfunction - strict I/O, 2 L fluid restriction, cardiac/renal/CCHO2 diet Chronic hepatitis C without hepatic coma ([facility]) - HCV RNA PCR not detected 07/13/2023 History of transmetatarsal amputation of foot ([facility]) - chronic OM 2/2 DM foot ulcers s/p bilateral transmetarsal amputation Inpatient Checklist: Inpatient checklist: - Bowel regimen: ducolax - Code status: Full Code - Diet: PO - DVT prophylaxis: heparin - Disposition: placement CODE STATUS: Full Code EMERGENCY CONTACT: Extended Emergency Contact Information Primary Emergency Contact: Chris Fernandez Mobile Relation: Legal Guardian Preferred language: Nepalese Solderer Electronic needed? No Secondary Emergency Contact: Mariel Chavez Address: [address] [place] [address] of [facility] Mobile Relation: Roofer [employer] Solderer Electronic needed? No Leda Kelley MD Human Resources Leader Internal Medicine Pediatrics Certified Skin Piler Pager [phone] [1] Current Facility-Administered Medications: acetaminophen (Tylenol) tablet 650 mg, 650 mg, Oral, q6h PRN, Lala Valdes, [employer] aspirin chewable tablet 81 mg, 81 mg, Oral, Daily, Lala Valdes, [employer], 81 mg at 10/02/24 1137 atorvastatin (Lipitor) tablet 40 mg, 40 mg, Oral, Nightly, Lala Valdes, [employer], 40 mg at 10/01/242051 bisacodyl (Dulcolax) EC tablet 10 mg, 10 mg, Oral, Daily PRN, Lala Valdes B, [employer] cadexomer iodine (Iodosorb) 0.9 % gel, , Topical, Daily, Tana Wooten MD, Given at 10/02/24 1140 carvedilol (Coreg) tablet 12.5 mg, 12.5 mg, Oral, BID, Lala Valdes, [employer], 12.5 mg at 10/02/24 1137 clopidogrel (Plavix) tablet 75 mg, 75 mg, Oral, Daily, Lala Valdes, [employer], 75 mg at 10/02/24 1137 glucose (Glutose) 40 % oral gel 15-30 grams of glucose, 15-30 grams of glucose, Sublingual, q15 minPRN OR dextrose 10 % (D10W) bolus 125 mL, 125 mL, Intravenous, q15 min PRN OR dextrose 10 %(D10W) bolus 250 mL, 250 mL, Intravenous, q15 min PRN OR glucagon (human recombinant) injection1 mg, 1 mg, Intramuscular, q15 min PRN, Lala Valdes, [employer] divalproex sprinkle (Depakote Sprinkle) DR capsule 250 mg, 250 mg, Oral, BID, Lala Valdes, [employer],250 mg at 10/02/24 1137 heparin (porcine) injection 5,000 Units, 5,000 Units, Subcutaneous, q8h RAFAT, Lala Valdes [employer], 5,000 Units at 10/02/24 0528 insulin lispro (Admelog) 100 units/mL injection - Correction - Standard Dose, 0- 5 Units, Subcutaneous, TID with meals, Lala Valdes, [employer] insulin lispro (Admelog) injection - Correction - Nighttime Dose, 0-3 Units, Subcutaneous, Twice atnight, Lala Valdes B, [employer] melatonin tablet 3 mg, 3 mg, Oral, Nightly, Laith Valdesana B, [employer], 3 mg at 10/01/242050 mupirocin (Bactroban) 2 % ointment 1 Application, 1 Application, Each Nostril, BID, Tana Wooten MD, 1 Application at 10/02/241136 NIFEdipine XL (Procardia XL) 24 hr tablet 30 mg, 30 mg, Oral, Daily, Lucio Gitana B, [employer], 30 mg at10/02/241136 polyethylene glycol (Miralax) packet 17 g, 17 g, Oral, Daily, Lucio Gitana B, [employer], 17 g at 10/02/241136 sertraline (Zoloft) tablet 75 mg, 75 mg, Oral, Daily, Lala Valdes B, [employer], 75 mg at 10/02/241136 Insert peripheral IV, , , Once AND Saline lock IV, , , Once AND sodium chloride 0.9 % flush10 mL, 10 mL, Intravenous, q12h, 10 mL at 10/02/241136 AND sodium chloride 0.9 % flush 10 mL, 10 mL, Intravenous, PRN, Lucio Gitana B, [employer] traZODone (Desyrel) tablet 100 mg, 100 mg, Oral, Nightly, Lala Valdes, [employer], 100 mg at 10/01/242051 Facility-Administered Medications Ordered in Other Encounters: lidocaine-EPINEPHrine (PF) (Xylocaine W/EPI) 1 %-1:708591 injection - Pyxis Override Pull, , , , lidocaine-EPINEPHrine (PF) (Xylocaine W/EPI) 1 %-1:567268 injection - Pyxis Override Pull, , , [...] 28 days, Once Release to patient in [facility]: Immediate Hepatitis panel, acute Every 28 days, Once Release to patient in [facility]: Immediate Zechariah Tovar MD Nephrology [1] aspirin, [...] Ongoing, Progressing Intervention: Promote Activity and Functional [place] Flowsheets (Taken 10/02/202436) Activity Assistance Provided: assistance, 1 person Self-Care Promotion: independence encouraged BADL personal objects within reach Problem: Infection Goal: Absence of Infection Signs and Symptoms Outcome: Ongoing, Progressing Intervention: Prevent or Manage Infection Flowsheets (Taken 10/02/202436) Isolation Precautions: protective * Care Plan - Cornell Hinojosa RN - 10/01/2024 2:23 PM EDT Problem: Wound Goal: Absence of Infection Signs and Symptoms Outcome: Ongoing, Progressing Problem: Wound Goal: Skin Health and Integrity Outcome: Ongoing, Progressing Intervention: Optimize Skin Protection Flowsheets (Taken 10/01/20241421) Skin Protection: frequent weight shift encouraged pressure points protected Problem: Wound Goal: Skin Health and Integrity Intervention: Optimize Skin Protection Flowsheets (Taken 10/01/20241421) Skin Protection: frequent weight shift encouraged pressure points protected Problem: Wound Goal: Optimal Wound Healing Outcome: Ongoing, Progressing Intervention: Promote Wound Healing Flowsheets (Taken 10/01/2024 1422) Sleep/Rest Enhancement: natural light exposure provided Problem: [...] 10/01/2024 10:23 AM Wound Image Wound Assessment [place];Pale;Granulation Margins Well-defined edges;Open Edges Sydni-Wound Assessment Dry;Calloused;Other [...] (Individualized) Outcome: Ongoing, Progressing Flowsheets (Taken 10/01/2024 133) Patient/Family-Specific Goals (Include Timeframe): Pt will be [...] VTE (Venous Thromboembolism) Risk Flowsheets (Taken 10/01/2024 133) VTE Prevention/Management: medication bilateral SCDs (sequential compression [...] Ongoing, Progressing Intervention: Promote Activity and Functional [place] Flowsheets (Taken 10/01/2024 1333) Activity Assistance Provided: [...] Fernandez Today's Date: 10/01/2024 PT Discharge Recommendations: half-way facility (LTC) Equipment Recommended: Defer to facility [...] 04/30/2023 History of transmetatarsal amputation of foot ([facility]) 04/30/2023 Declining functional status 04/15/2023 Anxiety and depression 04/15/2022 Gastroesophageal reflux disease without esophagitis 04/15/2022 Dementia ([facility]) 02/18/2022 Chronic combined systolic (congestive) and diastolic (congestive) heart failure ([facility]/HCC) 02/18/2022 Insomnia, unspecified 12/22/2021 At high risk for falls 10/12/2021 ESRD (end stage renal disease) on dialysis ([facility]) 09/16/2021 Arterial insufficiency ([facility]) 05/18/2021 Mild intellectual disabilities 08/30/2019 Sensorineural hearing loss, bilateral 01/11/2018 Wears hearing aid in both ears 12/08/2017 Chronic hepatitis C without hepatic coma ([facility]) 06/03/2014 Type 2 diabetes mellitus with chronic kidney disease on chronic dialysis ([facility]) 11/15/2013 Essential (primary) hypertension 11/23/2011 Mixed hyperlipidemia 11/23/2011 Procedures Past Medical History Patient has a past medical history of Alcohol use disorder in remission, Anemia in chronic kidney disease (CODE) (04/30/2023), Anxiety, Arterial insufficiency ([facility]/HCC) (05/18/2021), Benign prostatichyperplasia, Central line-associated bloodstream infection (06/29/2022), Chronic combined systolic (congestive) and diastolic (congestive) heart failure ([facility]) (02/18/2022), Chronic hepatitis C without hepatic coma ([facility]) (06/03/2014), Dementia ([facility]) (02/18/2022), Depression, Diabetic peripheral neuropathy ([facility]), ESRD (end stage renal disease) on dialysis ([facility]) (09/16/2021), Essential hypertension (11/23/2011), GERD (gastroesophageal reflux disease), Hemorrhoids, Hyperlipidemia, Hypoparathyroidism (11/23/2011), Infection of AV graft for dialysis ([facility]) (02/18/2022), Insomnia, unspecified (12/22/2021), Methicillin [...] Medical Precautions: Fall precautions Subjective Pt severely Algaaciq with no hearing aides donned or present in room. Pt stated I can't walk when asked how he was mobilizing prior to admission. Participants in Care Family/Caregiver Present: No Solderer Electronic: Not Applicable Presentation Oxygen Therapy: None (Room [...] end of session. Home Living/Set-up Home Type: skilled nursing Home Adaptive Equipment: Wheelchair-manual Home Living Comments: Pt unable to provide home living information and PLOF d/t impaired cognition and being hard of hearing (no hearing aides present in room). Per chart review, pt lives at a fpc and utilizes to mobilize. When asked how he transfers to/from pt stated I can't walk , it is presumed that he stands to pivot in order to transfer. Prior Level of Function Receives Help From: Caregiver Level of Mobility: Wheelchair/Scooter Mobility [place]: Assist with wheelchair propulsion Patient/Family Goals Objective [...] simple, repeated questioning as pt is severely Algaaciq with no hearing aides present in room. [...] Mobility Bed Mobility Exam: Scooting/Bridging Level of [place]: Stand-by assist Physical/Nonphysical Assist: Supervision Bed Mobility Exam: Supine to Sit Level of [place]: Stand-by assist Physical/Nonphysical Assist: Supervision, HOB elevated Transfers Transfer Exam: Sit to stand Level of [place]: Contact guard Physical/Nonphysical Assist: Supervision, Nonverbal cues (demo/gestures) Assistive Device: Walker, rolling Transfer Exam: Stand to Sit Level of [place]: Contact guard Physical/Nonphysical Assist: Supervision, Nonverbal cues [...] understanding. Standardized Assessments Standardized Assessments Standardized Assessments: [facility] 6-Clicks Mobility Assessment [facility] 6-Clicks Mobility Assessment Difficulty patient has turning [...] 3-5 steps with a railing?: A lot [facility] 6-Clicks Mobility Assessment Total : 20 No data recorded Assessment Pt demonstrated the ability to perform all mobility with SBA-CGA for safety and use of RW when amb short distance in order to transfer to chair. Pt severely Algaaciq with no hearing aides present in room,as [...] Making: Low complexity PT Recommendations Discharge Destination: half-way facility (LTC) Discharge Equipment: Defer to facility Plan Patient no longer demonstrates need for inpatient physical therapy services. Patient to be discharged from physical therapy. Written by Jt Wesley on 10/01/24 at 1:13 PM. * Progress Notes - Whitney Hinojosa - 10/01/2024 9:59 AM EDT Occupational Therapy Evaluation/Discharge Patient Name: Aakash Fernandez Today's Date: 10/01/2024 OT Discharge Recommendations: half-way facility Equipment Recommended: Defer to facility History Mundo Fernandez is 64 y.o. male admitted 09/30/2024 for work-up of Declining functional status. Problem List Active Hospital Problems Diagnosis Date Noted ESRD (end stage renal disease) ([facility]) 09/30/2024 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 06/07/2024 Chronic kidney disease-mineral and bone disorder (CKD-MBD) 08/27/2023 Electrolyte and fluid disorder 06/07/2023 Anemia in chronic kidney disease (CODE) 04/30/2023 History of transmetatarsal amputation of foot ([facility]) 04/30/2023 Declining functional status 04/15/2023 Anxiety and depression 04/15/2022 Gastroesophageal reflux disease without esophagitis 04/15/2022 Dementia ([facility]) 02/18/2022 Chronic combined systolic (congestive) and diastolic (congestive) heart failure ([facility]) 02/18/2022 Insomnia, unspecified 12/22/2021 At high risk for falls 10/12/2021 ESRD (end stage renal disease) on dialysis ([facility]) 09/16/2021 Arterial insufficiency ([facility]) 05/18/2021 Mild intellectual disabilities 08/30/2019 Sensorineural hearing loss, bilateral 01/11/2018 Wears hearing aid in both ears 12/08/2017 Chronic hepatitis C without hepatic coma ([facility]) 06/03/2014 Type 2 diabetes mellitus with chronic kidney disease on chronic dialysis ([facility]) 11/15/2013 Essential (primary) hypertension 11/23/2011 Mixed hyperlipidemia 11/23/2011 Past Medical History Patient has a past medical history of Alcohol use disorder in remission, Anemia in chronic kidney disease (CODE) (04/30/2023), Anxiety, Arterial insufficiency ([facility]) (05/18/2021), Benign prostatichyperplasia, Central line-associated bloodstream infection (06/29/2022), Chronic combined systolic (congestive) and diastolic (congestive) heart failure ([facility]) (02/18/2022), Chronic hepatitis C without hepatic coma ([facility]) (06/03/2014), Dementia ([facility]) (02/18/2022), Depression, Diabetic peripheral neuropathy ([facility]), ESRD (end stage renal disease) on dialysis ([facility]) (09/16/2021), Essential hypertension (11/23/2011), GERD (gastroesophageal reflux disease), Hemorrhoids, Hyperlipidemia, Hypoparathyroidism (11/23/2011), Infection of AV graft for dialysis ([facility]) (02/18/2022), Insomnia, unspecified (12/22/2021), Methicillin [...] hear Participants in Care Family/Caregiver Present: No Solderer Electronic: Not Applicable Presentation Oxygen Therapy: None (Room [...] Lives With: (pt was living in a fpc, previously in a SNF until about a week ago.) Home Type: skilled nursing Home Adaptive Equipment: Wheelchair-manual Home Layout: One level Bathroom: Tub/Shower: Tub/Shower combo Home Living Comments: Pt unable to provide home living information and PLOF d/t impaired cognition and being hard of hearing (no hearing aides present in room). Per chart review, pt lives at a fpc and utilizes to mobilize. When asked how he transfers to/from WC pt stated I can't walk , it is presumed that he stands to pivot in order to transfer. Prior Level of Function Receives Help From: Caregiver Level of Mobility: Wheelchair/Scooter Mobility [place]: Assist with wheelchair propulsion History of Falls: [...] simple, repeated questioning as pt is severely Algaaciq with no hearing aides present in room. [...] Mobility Bed Mobility Exam: Scooting/Bridging Level of [place]: Stand-by assist Physical/Nonphysical Assist: Supervision Bed Mobility Exam: Supine to Sit Level of [place]: Stand-by assist Physical/Nonphysical Assist: Supervision, HOB elevated Assistive Device: Bed rails Transfers Transfer Exam: Sit to stand Level of [place]: Contact guard Physical/Nonphysical Assist: Supervision, Nonverbal cues (demo/gestures) Assistive Device: Walker, rolling Transfer Exam: Stand to Sit Level of [place]: Contact guard Physical/Nonphysical Assist: Supervision, Nonverbal cues (demo/gestures) Assistive Device: Walker, rolling Transfer Exam: Bed to Chair/Chair to Bed Level of [place]: Contact guard Physical/Nonphysical Assist: Nonverbal cues (demo/gestures), [...] Level of Assistance: Setup, SBA Standardized Assessments [facility] 6-Click Daily Activities Help from Other: Don/Doff Regular Lower Body Clothings: Little Help From Other: Bathing: Little Help From Other: Toileting: Little Help From Other: Don/Doff Upper Body Clothings: None Help From Other: Grooming: None Help From Other: Eating Meals: None [facility] 6 Click - Daily Activities Score: [...] Eval complexity: Low OT Recommendations Discharge Destination: half-way facility Discharge Equipment: Defer to facility Plan Patient no longer demonstrates need for inpatient occupational therapy services. Patient to be discharged from occupational therapy. Written by Whitney Hinojosa on 10/01/24 at 4:37 PM. * Consults - Daphne Landry APRN, DNP - 10/01/2024 9:01 AM EDTAssociated Order(s): Inpatient consult to Nephrology Inpatient consult to Nephrology Consult performed by: Daphne Landry APRN, DNP Consult ordered by: Leda Gaitan MD Reason [...] bilateral transmetarsal amputation, and debility presented to [facility] on 09/30 after refusing care at his fpc. He brought to the ED for medical [...] bilateral transmetarsal amputation, and debility presented to [facility] on 09/30 after refusing care at his fpc. Nephrology consulted for dialysis. Assessment: #ESRD on iHD - MWF at [facility] [address] [facility] - AccesS: ISAURO [...] Nephrology Epic Chat Note to patient: [facility] [...] kidney disease (CODE) 04/30/2023 Anxiety Arterial insufficiency ([facility]) 05/18/2021 Benign prostatic hyperplasia Central line-associated bloodstream infection 06/29/2022 Chronic combined systolic (congestive) and diastolic (congestive) heart failure ([facility]) 02/18/2022 Chronic hepatitis C without hepatic coma ([facility]) 06/03/2014 Dementia ([facility]) 02/18/2022 Depression Diabetic peripheral neuropathy ([facility]) ESRD (end stage renal disease) on dialysis ([facility]) 09/16/2021 Essential hypertension 11/23/2011 GERD (gastroesophageal reflux disease) Hemorrhoids Hyperlipidemia Hypoparathyroidism 11/23/2011 Infection of AV graft for dialysis ([facility]) 02/18/2022 Added automatically from request for surgery [id number] Insomnia, unspecified 12/22/2021 Methicillin resistant Staphylococcus aureus infection, unspecified site Mild intellectual disabilities 08/30/2019 MSSA bacteremia 03/04/2022 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 06/07/2024 Sensorineural hearing loss, bilateral 01/11/2018 Type 2 diabetes mellitus [2] Patient Active Problem List Diagnosis ESRD (end stage renal disease) on dialysis ([facility] [facility] Essential (primary) hypertension Type 2 diabetes mellitus with chronic kidney disease on chronic dialysis ([facility]) Wears hearing aid in both ears At high risk for falls Insomnia, unspecified Chronic combined systolic (congestive) and diastolic (congestive) heart failure (CMS/HCC) Dementia (CMS/HCC) Chronic hepatitis C without hepatic coma (CMS/HCC) Arterial insufficiency (CMS/HCC) BPH (benign prostatic hyperplasia) Diabetic peripheral neuropathy (CMS/HCC) DM type 2 without retinopathy (CMS/HCC) Gastroesophageal reflux disease without esophagitis Mixed [...] midfoot limited to breakdown of skin (CMS/HCC) [3] No Known Allergies [4] Current Facility-Administered Medications: acetaminophen (Tylenol) tablet 650 mg, 650 mg, Oral, q6h PRN, Lucio, Gitana B, [employer] aspirin chewable tablet 81 mg, 81 mg, Oral, Daily, Lucio, Gitana B, [employer] atorvastatin (Lipitor) tablet 40 mg, 40 mg, Oral, Nightly, Lucio, Gitana B, [employer], 40 mg at 09/30/242155 bisacodyl (Dulcolax) EC tablet 10 mg, 10 mg, Oral, Daily PRN, Lucio Gitana B, [employer] carvedilol (Coreg) tablet 12.5 mg, 12.5 mg, Oral, BID, Lucio, Gitana B, [employer], 12.5 mg at 09/30/242155 clopidogrel (Plavix) tablet 75 mg, 75 mg, Oral, Daily, Lucio, Gitana B, [employer] glucose (Glutose) 40 % oral gel 15-30 [...] 10 mL, Intravenous, q12h, 10 mL at 09/30/242109 AND sodium chloride 0.9 % flush 10 mL, 10 mL, Intravenous, PRN, Lala Valdes APRN [START ON 10/02/2024] sodium zirconium cyclosilicate (Lokelma) packet 10 g, 10 g, Oral, Daily beforebreakfast, Lala Valdes APRN traZODone (Desyrel) tablet 100 mg, 100 mg, Oral, Nightly, Lala Valdes APRN, 100 mg at 09/30/246 Facility-Administered Medications Ordered in Other Encounters: lidocaine-EPINEPHrine (PF) (Xylocaine W/EPI) 1 %-1:721742 injection - Pyxis Override Pull, , , , lidocaine-EPINEPHrine (PF) (Xylocaine W/EPI) 1 %-1:783055 injection - Pyxis Override Pull, , , [...] 3:27 PM EDT Associated attestation - Donny oTvar MD - 10/01/2024 3:27 PM EDT I attest to being involved in providing substantive part of the medical decision making in patient care. 62 yo man with intellectual delay, ESRD admitted overnight due to inability to care for patient at fpc. No immediate indications for HD, will resume [...] Assessment and Plan: Aakash Fernandez is a [place] 64 y.o. male with past history of ESRD on HD MWF, T2DM, HTN, chronic HFrEF, PAD, HLD, IDD/dementia, depression/anxiety, insomnia, chronic HCV, DM foot ulcer c/b OM s/p bilateral transmetarsal amputation, and debility sent from his fpc to ED for medical evaluationafter refusing care. Declining functional status - Transferred to fpc a week ago and since arrival refusing HD, to eat, participate, or take medications - sent to ED for medical evaluation and need for higher level of assist/unable to care for self/non-compliance - afebrile, VSS, no acute complaints PLAN - PT/OT consult re: placement - legal guardian is his brother, Chris Fernandez, #[phone] At high risk for falls - wheelchair dependent, fall precautions ESRD (end stage renal disease) on dialysis ([facility]) - Missed HD (MWF) , last session [...] with chronic kidney disease on chronic dialysis ([facility]) - last A1c 4.8% over a year ago - presenting glucose 185, repeat A1c pending PLAN - ACHS regular SSI - hold home glargine 5U at bedtime while trend glucose/PO intake Dementia ([facility]) - Delirium precautions - Pharm med rec [...] BP <120/80 on dialysis days) Arterial insufficiency ([facility]) - continue aspirin 81 mg [...] systolic (congestive) and diastolic (congestive) heart failure ([facility]) - ECHO 06/27/2022: EF 45%, [...] Fernandez Mobile Relation: Legal Guardian Preferred language: Nepalese Solderer Electronic needed? No Secondary Emergency Contact: Mariel Chavez Address: [address] [place] [address] Mobile Relation: [employer] Solderer Electronic needed? No Leda Kelley MD Human Resources Leader Internal Medicine Pediatrics Certified Skin Piler Pager [phone] [1] Current Facility-Administered Medications: acetaminophen (Tylenol) tablet 650 mg, 650 mg, Oral, q6h PRN, Lucio, Gitana B, [employer] aspirin chewable tablet 81 mg, 81 mg, Oral, Daily, Lucio, Gitana B, [employer] atorvastatin (Lipitor) tablet 40 mg, 40 mg, Oral, Nightly, Lucio, Gitana B, [employer], 40 mg at 09/30/242155 bisacodyl (Dulcolax) EC tablet 10 mg, 10 mg, Oral, Daily PRN, Lucio, Gitana B, [employer] carvedilol (Coreg) tablet 12.5 mg, 12.5 mg, Oral, BID, Lucio, Gitana B, [employer], 12.5 mg at 09/30/242155 clopidogrel (Plavix) tablet 75 mg, 75 mg, Oral, Daily, Lucio, Gitana B, [employer] glucose (Glutose) 40 % oral gel 15-30 [...] 10 mL, Intravenous, q12h, 10 mL at 09/30/242109 AND sodium chloride 0.9 % flush 10 mL, 10 mL, Intravenous, PRN, Lala Valdes APRN [START ON 10/02/2024] sodium zirconium cyclosilicate (Lokelma) packet 10 g, 10 g, Oral, Daily beforebreakfast, Lala Valdes APRN traZODone (Desyrel) tablet 100 mg, 100 mg, Oral, Nightly, Lala Valdes APRN, 100 mg at 09/30/24 9471 Facility-Administered Medications Ordered in Other Encounters: lidocaine-EPINEPHrine (PF) (Xylocaine W/EPI) 1 %-1:795665 injection - Pyxis Override Pull, , , , lidocaine-EPINEPHrine (PF) (Xylocaine W/EPI) 1 %-1:406770 injection - Pyxis Override Pull, , , , [2] No Known Allergies * Assessment & Plan Note - Lala Valdes APRN - 10/01/2024 6:37 AM EDT Associated Problem(s): Declining functional status - Transferred to fpc a week ago and since arrival refusing HD, to eat, participate, or take medications - sent to ED for medical evaluation and need for higher level of assist/unable to care for self/non-compliance - afebrile, VSS, no acute complaints PLAN - PT/OT consult re: placement - legal guardian is his brother, Chris Fernandez, #[phone] * Assessment & Plan Note - Lala Valdes APRN - 10/01/2024 6:37 AM EDT Associated Problem(s): At high risk for falls - wheelchair dependent, fall precautions * Assessment & Plan Note - Lala Valdes APRN - 10/01/2024 6:37 AM EDT Associated Problem(s): ESRD (end stage renal disease) on dialysis ([facility]) - Missed HD (MWF) earlier [...] with chronic kidney disease on chronic dialysis ([facility]) - last A1c 4.8% over a year ago - presenting glucose 185, repeat A1c pending PLAN - ACHS regular SSI - hold home glargine 5U at bedtime while trend glucose/PO intake * Assessment & Plan Note - Lala Valdes APRN - 10/01/2024 6:37 AM EDT Associated Problem(s): Dementia (CMS/HCC) - Delirium precautions - Pharm med rec [...] 6:37 AM EDT Associated Problem(s): Arterial insufficiency ([facility]) - continue aspirin 81 mg [...] Goal (Individualized) Outcome: Ongoing, Progressing Flowsheets (Taken 09/30/20242099) Patient/Family-Specific Goals (Include Timeframe): Pt will be [...] reviewed Goal: Effective Tissue Perfusion Outcome: Ongoing, Intervention: Optimize Blood Flow Flowsheets (Taken 10/01/202445) Stabilization Measures: verbal stimulation provided Goal: Absence of Infection Signs and Symptoms Outcome: Ongoing, Progressing Intervention: Prevent or Manage Infection Flowsheets (Taken 10/01/202445) Infection Prevention: hand hygiene promoted single patient room provided Problem: Self-Care Deficit Goal: Improved Ability to Complete Activities of Daily Living Outcome: Ongoing, Progressing Intervention: Promote Activity and Functional [place] Flowsheets (Taken 10/01/202445) Activity Assistance Provided: assistance, 1 person Self-Care Promotion: independence encouraged * H&P - Lala Valdes APRN - 09/30/2024 7:35 PM EDTAssociated Order(s): Consult to [facility] Images from the original note were not included. Consult to [facility] Consult performed by: Lala Valdes APRN Consult ordered by: Lesvia Adrian MD Reason for consult: Functional decline Subjective Chief complaint Refusing care History Of Present Illness Aakash Fernandez is a [place] 64 y.o. male with past history of ESRD on HD MWF, T2DM, HTN, chronic HFrEF, PAD, HLD, IDD/dementia, depression/anxiety, insomnia, chronic HCV, DM foot ulcer c/b OM s/p bilateral transmetarsal amputation, and debility sent from his fpc to ED for medical evaluationafter refusing care. Patient is extremely [place] and not wearing hearing aids limiting exam, therefore history obtained from chart review and Mariel (#[phone]) at his fpc. Unable to reach his legal guardian and brother, Chris Fernandez, at #[phone]. She reports that patient transferred a week ago to fpc after residing in a fdc for the past year with an increased level of assist. Since arriving patient has been refusing dialysis, to eat, participate, or take his medications. Earlier todayhe missed HD, last session 3 days ago on 09/27/2024. The fpc believes he needs a higher level of [...] of Systems Unable to perform ROS: Other ([place], IDD/Dementia) Constitutional: Positive for activity change and [...] 92%. Results Review {Vanishing Link Review Results :[id number] I have reviewed the latest lab and imaging results. Assessment & Plan Declining functional status - Transferred to fpc a week ago and since arrival refusing HD, to eat, participate, or take medications - sent to ED for medical evaluation and need for higher level of assist/unable to care for self/non-compliance - afebrile, VSS, no acute complaints PLAN - PT/OT consult re: placement - legal guardian is his brother, Chris Fernandez, #[phone] At high risk for falls - wheelchair dependent, fall precautions ESRD (end stage renal disease) on dialysis ([facility]) - Missed HD (MWF) earlier [...] with chronic kidney disease on chronic dialysis ([facility]) - last A1c 4.8% over a year ago - presenting glucose 185, repeat A1c pending PLAN - ACHS regular SSI - hold home glargine 5U at bedtime while trend glucose/PO intake Dementia ([facility]) - Delirium precautions - Pharm [...] BP <120/80 on dialysis days) Arterial insufficiency ([facility]) - continue aspirin 81 mg [...] systolic (congestive) and diastolic (congestive) heart failure ([facility]) - ECHO 06/27/2022: EF 45%, abnormal diastolic dysfunction - strict I/O, 2 L fluid restriction, cardiac/renal/CCHO2 diet Chronic hepatitis C without hepatic coma ([facility]) - HCV RNA PCR not detected 07/13/2023 History of transmetatarsal amputation of foot ([facility]) - chronic OM 2/2 DM [...] day. 30 capsule 3 Epoetin Rj-epbx (Retacrit) 11241 UNIT/ML injection Inject 13,400 Units/kg under the [...] presents to the ED today from his fpc for refusing to participate in care. On my evaluation, patient has no complaints and is just requesting food and a blanket. He is very hard of hearing so history is difficult to obtain. Further history is obtained from patient's caregiver, Mariel at his fpc (# [phone]). Shestates that the patient has been in a fdc for the last year with a high level of assist. One week ago he was transferred from the fdc to her fpc under her groups care. She says since [...] All Other Orders Ordered Status Ordering Provider 09/30/241909 ED to floor bed request Once Acknowledged LESVIA ADRIAN 09/30/24 190 Consult to [facility] Once Specialty: Internal Medicine Provider: (Not yet [...] 09/30/24 193 ESRD (end stage renal disease) ([facility]) Noncompliance by refusing service Social Determinates of Health Risks (including Economic Stability, Education and level of understanding, Healthcare access and quality and concerning social factors): Poor health literacy and Poor social support Ultimately, this patient was Was admitted (Admission) The primary encounter diagnosis was ESRD (end stage renal disease) ([facility]). A diagnosis of Noncompliance by refusing service was also pertinent to this visit.. Patient believed to require admission for the listed diagnoses. The Internal medicine service was consulted for admission andwas agreeable to admit to Acute Floor (Med/Surg). Disposition Admit Requested Location: [facility] [[id number]] - [1] Past Medical History: Diagnosis Date Bacteremia associated with intravascular line 06/28/2022 Central line-associated bloodstream infection 06/29/2022 Chronic combined systolic (congestive) and diastolic (congestive) heart failure ([facility]) 02/18/2022 Chronic hepatitis C without hepatic coma ([facility]) 06/03/2014 Conversions - Other Depression Conversions - Other Diabetic Peripheral Neuropathy Conversions - Other Hearing Loss Conversions - Other Hemorrhoids Conversions - Other Mitral Valve Disorder Conversions - Other Obesity Conversions - Other Skin: A Rash Dementia ([facility]) 02/18/2022 ESRD (end stage renal disease) on dialysis ([facility]) 09/16/2021 Essential hypertension 11/23/2011 Methicillin resistant Staphylococcus [...] Cataract Phacoemulsification With Intraocular Lens Implantation from [employer] EXPLORATORY LAPAROTOMY stab incision abdomen EYE SURGERY N/A Eye Surgery from [employer] FOOT SURGERY N/A Surgery Foot Amputation Metatarsal And Toe from [employer] OTHER SURGICAL HISTORY Right Tympanic Membrane Repair - Right Ear from [employer] OTHER SURGICAL HISTORY Right Surgery Right Foot Amputation MTP from [employer] [3] Family History Problem Relation Name Age [...] PM EDT Pt arrives via [employer] from fpc. Per EMS home said pt would not take his meds today so they called an ambulance, pt has no complaints and the fpc said he was not acting out of his normal. Pt is hard of hearing and does not answer questions in triage. documented in this encounter Plan of Treatment Not on file documented as of this encounter Procedures Procedure Name Priority Date/Time Associated Diagnosis Comments HEMODIALYSIS INPATIENT Routine 10/21/2024 11:17 AM EDT ESRD (end stage renal disease) on dialysis ([facility]) POCT GLUCOSE METER UNSOLICITED RESULTS [...] ESRD (end stage renal disease) on dialysis ([facility]) POCT GLUCOSE METER UNSOLICITED RESULTS [...] ESRD (end stage renal disease) on dialysis ([facility]) HEMODIALYSIS INPATIENT Routine 10/16/2024 8:41 AM EDT ESRD (end stage renal disease) on dialysis ([facility] POCT GLUCOSE METER UNSOLICITED RESULTS [...] ESRD (end stage renal disease) on dialysis ([facility]) POCT GLUCOSE METER UNSOLICITED RESULTS [...] ESRD (end stage renal disease) on dialysis ([facility]) POCT GLUCOSE METER UNSOLICITED RESULTS [...] ESRD (end stage renal disease) on dialysis ([facility]) POCT GLUCOSE METER UNSOLICITED RESULTS [...] ESRD (end stage renal disease) on dialysis ([facility]) POCT GLUCOSE METER UNSOLICITED RESULTS [...] ESRD (end stage renal disease) on dialysis ([facility]) HEMODIALYSIS INPATIENT Routine 10/02/2024 7:50 AM EDT ESRD (end stage renal disease) on dialysis ([facility]) VITAMIN D 25 HYDROXY Routine 10/02/2024 5:36 [...] POCT glucose meter (10/21/2024 9:15 AM EDT) Pathologist [facility] POCT Glucose 116(H) 74 - 99 mg/dL 10/21/2024 9:17 AM EDT [facility] Comment:Accuracy of [...] for testing. Comment 10/21/2024 9:17 AM EDT [facility] Exhaust Emissions Automotive Technician ID Jane Dill 10/21/2024 9:17 AM EDT [facility] Device ID [id number] 10/21/2024 9:17 AM EDT [facility] Specimen Type POC Capillary 10/21/2024 9:17 AM EDT [facility] Blood Capillary blood specimen / Unknown 10/21/2024 9:15 AM EDT 10/21/2024 9:17 AM EDT us Jeannie Valle MD LAB POINT OF CARE TE ST DOCKED DEVICE UNSOLICITED RESULTS Final Result [facility] [address] [place] [address] * POCT glucose meter (10/21/2024 8:27 AM EDT) Pathologist [facility] POCT Glucose 95 74 - 99 mg/dL 10/21/2024 8:29 AM EDT [facility] Comment:Accuracy of a glucos e result [...] for testing. Comment 10/21/2024 8:29 AM EDT [facility] Exhaust Emissions Automotive Technician ID Jane Dill 10/21/2024 8:29 AM EDT HEALTHCARE LAB Device ID [id number] 10/21/2024 8:29 AM EDT [facility] Specimen Type POC Capillary 10/21/2024 8:29 AM EDT [facility] Blood Capillary blood specimen / Unknown 10/21/2024 8:27 AM EDT 10/21/2024 8:29 AM EDT us Jeannie Valle MD LAB POINT OF CARE TE ST DOCKED DEVICE UNSOLICITED RESULTS Final Result Performing Organization Address City/[facility]/ZIP Co de Phone Number [facility] [address] [place] [address] * (ABNORMAL) POCT glucose meter (10/20/2024 8:31 PM EDT) [facility] POCT Glucose 131(H) 74 - 99 mg/dL 10/20/2024 8:34 PM EDT [facility] Comment:Accuracy of [...] for testing. Comment 10/20/2024 8:34 PM EDT [facility] Exhaust Emissions Automotive Technician ID Grazyna Bhakta 025 8:34 PM EDT [facility]ALTH[facility]ARE [facility] Device ID [id number] 10/20/2024 8:34 PM EDT [facility]ARE [facility] Specimen Type POC Capillary 10/20/2024 8:34 PM EDT [facility] Blood Capillary blood specimen / Unknown 10/20/2024 8:31 PM EDT 10/20/2024 8:34 PM EDT us Jeannie Valle MD LAB POINT OF CARE TE ST DOCKED DEVICE UNSOLICITED RESULTS Final Result [facility] [address] [place] [address] * (ABNORMAL) POCT glucose meter (10/19/2024 6:13 PM EDT) [facility] POCT Glucose 125(H) 74 - 99 mg/dL [...] for testing. Comment 10/19/2024 6:16 PM EDT [facility] Exhaust Emissions Automotive Technician ID Denotn Mccoy 025 6:16 PM EDT [facility] Device ID [id number] 10/19/2024 6:16 PM EDT [facility] Specimen Type POC Capillary 10/19/2024 6:16 PM EDT [facility] Blood Capillary blood specimen / Unknown 10/19/2024 6:13 PM EDT 10/19/2024 6:16 PM EDT Jeannie Valle MD LAB POINT OF CARE TE ST DOCKED DEVICE UNSOLICITED RESULTS Final Result [facility] [address] [place] [address] * (ABNORMAL) POCT glucose meter (10/19/2024 11:56 AM EDT) [facility] POCT Glucose 110(H) 74 - 99 mg/dL [...] for testing. Comment 10/19/2024 11:58 AM EDT [facility] Exhaust Emissions Automotive Technician ID Denton Mccoy 025 11:58 AM EDT [facility] Device ID [id number] 10/19/2024 11:58 AM EDT [facility]ARE [facility] Specimen Type POC Capillary 10/19/2024 11:58 AM EDT [facility] Blood Capillary blood specimen / Unknown 10/19/2024 11:56 AM EDT 10/19/2024 11:58 AM EDT us Jeannie Valle MD LAB POINT OF CARE TE ST DOCKED DEVICE UNSOLICITED RESULTS Final Result Performing Organization Address City/[facility] Co de Phone Number [facility]ARE [facility] [address] [place] [address] * (ABNORMAL) POCT glucose meter (10/18/2024 6:01 PM EDT) POCT Glucose 105(H) 74 - 99 mg/dL 10/18/2024 6:03 PM EDT [facility] Comment:Accuracy of a [...] Comment 10/18/2024 6:03 PM EDT [facility] Exhaust Emissions Automotive Technician ID David Noyola 10/18/2024 6:03 PM EDT [facility]ARE LAB Device ID [id number] 10/18/2024 6:03 PM EDT [facility] Specimen Type POC Capillary 10/18/2024 6:03 PM EDT [facility] Blood Capillary blood specimen / Unknown 10/18/2024 6:01 PM EDT 10/18/2024 6:03 PM EDT us Jeannie Valle MD LAB POINT OF CARE TE ST DOCKED DEVICE UNSOLICITED RESULTS Final Result Performing Organization Address City/[facility] Co de Phone Number [facility] [address] [place] [address] * POCT glucose meter (10/18/2024 1:09 PM EDT) POCT Glucose 85 74 - 99 mg/dL 10/18/2024 1:11 PM EDT [facility] Comment:Accuracy of a [...] Comment 10/18/2024 1:11 PM EDT [facility] Exhaust Emissions Automotive Technician ID Daivd Noyola 10/18/2024 1:11 PM EDT [facility] Device ID [id number] 10/18/2024 1:11 PM EDT [facility] Specimen Type POC Capillary 10/18/2024 1:11 PM EDT [facility] Blood Capillary blood specimen / Unknown 10/18/2024 1:09 PM EDT 10/18/2024 1:11 PM EDT Jeannie Valle MD LAB POINT OF CARE TE ST DOCKED DEVICE UNSOLICITED RESULTS Final Result [facility] [address] [place] [address] * (ABNORMAL) POCT glucose meter (10/17/2024 8:28 PM EDT) [facility] POCT Glucose 101(H) 74 - 99 mg/dL [...] 10/17/2024 8:29 PM EDT [facility] Exhaust Emissions Automotive Technician ID Ping Wen 8:29 PM EDT [facility] Device ID [id number] 10/17/2024 8:29 PM EDT [facility] Specimen Type POC Capillary 10/17/2024 8:29 PM EDT [facility] Blood Capillary blood specimen / Unknown 10/17/2024 8:28 PM EDT 10/17/2024 8:29 PM EDT Jeannie Valle MD LAB POINT OF CARE TE ST DOCKED DEVICE UNSOLICITED RESULTS Final Result Performing Organization Address City/[facility]/ZIP Co de Phone Number [facility] [address] [place] [address] * Hepatitis B Core Total Antibody IgG,IgM (10/17/2024 2:31 PM EDT) Hepatitis B Core Total Antibody IgG,IgM Negative Negative 10/17/2024 5:01 PM EDT [facility] Blood Venous blood specimen / Unknown Venipuncture / Unknown 10/17/2024 2:31 PM EDT 10/17/2024 2:35 PM EDT Jeannie Valle MD LAB BLOOD ORDERABLES Final Res ult Performing Organization Address [facility] Co de Phone Number [facility] [address] [place] [address] * XR Chest 1 View (10/17/2024 2:11 [...] for testing. Comment 10/17/2024 11:15 AM EDT [facility] Exhaust Emissions Automotive Technician ID Toi Azevedo 11:15 AM EDT [facility]ALTH[facility]ARE LAB Device ID [id number] 10/17/2024 11:15 AM EDT [facility] Specimen Type POC Capillary 10/17/2024 11:15 AM EDT [facility] Blood Capillary blood specimen / Unknown 10/17/2024 8:29 AM EDT 10/17/2024 11:15 AM EDT Jeannie Valle MD LAB POINT OF CARE TE ST DOCKED DEVICE UNSOLICITED RESULTS Final Result [facility] [address] [place] [address] * (ABNORMAL) POCT glucose meter (10/16/2024 8:34 PM EDT) [facility] POCT Glucose 146(H) 74 - 99 mg/dL [...] for testing. Comment 10/16/2024 8:36 PM EDT [facility] Ex[employer]missions Autom[employer] Technician ID Ping Wen 8:36 PM EDT [facility] Device ID [id number] 10/16/2024 8:36 PM EDT [facility] Specimen Type POC Capillary 10/16/2024 8:36 PM EDT [facility] Blood Capillary blood specimen / Unknown 10/16/2024 8:34 PM EDT 10/16/2024 8:36 PM EDT Jeannie Valle MD LAB POINT OF CARE TE ST DOCKED DEVICE UNSOLICITED RESULTS Final Result Performing Organization Address [facility] Co de Phone Number [facility] [address] [place] [address] * (ABNORMAL) POCT glucose meter (10/16/2024 4:46 PM EDT) [facility] POCT Glucose 168(H) 74 - 99 mg/dL [...] 10/16/2024 4:47 PM EDT [facility] Exhaust Emissions Automotive Technician ID Jason Lio 10/16/2024 4:47 PM EDT [facility] Device ID [id number] 10/16/2024 4:47 PM EDT [facility] Specimen Type POC Capillary 10/16/2024 4:47 PM EDT [facility] Blood Capillary blood specimen / Unknown 10/16/2024 4:46 PM EDT 10/16/2024 4:47 PM EDT Jeannie Valle MD LAB POINT OF CARE TE ST DOCKED DEVICE UNSOLICITED RESULTS Final Result Performing Organization Address City/[facility]/ZIP Co de Phone Number [facility] [address] [place] [address] * POCT glucose meter (10/16/2024 12:55 PM EDT) POCT Glucose 94 74 - 99 mg/dL [...] 10/16/2024 12:57 PM EDT [facility] Exhaust Emissions Automotive Technician ID Lio Gomez 10/16/2024 12:57 PM EDT [facility] Device ID [id number] 10/16/2024 12:57 PM EDT [facility] Specimen Type POC Capillary 10/16/2024 12:57 PM EDT [facility] Blood Capillary blood specimen / Unknown 10/16/2024 12:55 PM EDT 10/16/2024 12:57 PM EDT us Jeannie Valle MD LAB POINT OF CARE TE ST DOCKED DEVICE UNSOLICITED RESULTS Final Result Performing Organization Address City/[facility]/ZIP Co de Phone Number [facility] [address] [place] [address] * POCT glucose meter (10/16/2024 8:19 AM EDT) POCT Glucose 94 74 - 99 mg/dL [...] for testing. Comment 10/16/2024 9:05 AM EDT [facility] Exhaust Emissions Automotive Technician ID Lio Gomez 10/16/2024 9:05 AM EDT [facility] Device ID [id number] 10/16/2024 9:05 AM EDT [facility] Specimen Type POC Capillary 10/16/2024 9:05 AM EDT [facility] Blood Capillary blood specimen / Unknown 10/16/2024 8:19 AM EDT 10/16/2024 9:05 AM EDT Jeannie Valle MD LAB POINT OF CARE TE ST DOCKED DEVICE UNSOLICITED RESULTS Final Result Performing Organization Address City/State/[facility] Co de Phone Number [facility] [address] [place] [address] * POCT glucose meter (10/16/2024 8:09 AM EDT) [facility] POCT Glucose 85 74 - 99 mg/dL 10/16/2024 8:10 AM EDT [facility] Comment:Accuracy of a [...] for testing. Comment 10/16/2024 8:10 AM EDT [facility] Exhaust Emissions Automotive Technician ID Lio Gomez 10/16/2024 8:10 AM EDT [facility] Device ID [id number] 10/16/2024 8:10 AM EDT [facility] Specimen Type POC Capillary 10/16/2024 8:10 AM EDT [facility] Blood Capillary blood specimen / Unknown 10/16/2024 8:09 AM EDT 10/16/2024 8:10 AM EDT us Jeannie Valle MD LAB POINT OF CARE TE ST DOCKED DEVICE UNSOLICITED RESULTS Final Result [facility] [address] [place] [address] * XR Abdomen 1 View (10/15/2024 9:40 [...] on 10/15/2024 9:58 PM us Lala Valdes [employer] IM[employer] XR PROCEDURES Final Resul t * (ABNORMAL) POCT glucose meter (10/15/2024 8:04 PM EDT) POCT Glucose 160(H) 74 - 99 mg/dL 10/15/2024 8:06 PM EDT [facility] Comment:Accuracy of a glucos e [...] Comment 10/15/2024 8:06 PM EDT [facility] Exhaust Emissions Automotive Technician ID Matty Jeffries 10/15/2024 8:06 PM EDT [facility] Device ID [id number] 10/15/2024 8:06 PM EDT [facility] Specimen Type POC Capillary 10/15/2024 8:06 PM EDT [facility] Blood Capillary blood specimen / Unknown 10/15/2024 8:04 PM EDT 10/15/2024 8:06 PM EDT us Jeannie Valle MD LAB POINT OF CARE TE ST DOCKED DEVICE UNSOLICITED RESULTS Final Result Performing Organization Address City/State/[facility] Co de Phone Number [facility] [address] [place] [address] * (ABNORMAL) POCT glucose meter (10/15/2024 4:41 PM EDT) POCT Glucose 114(H) 74 - 99 mg/dL 10/15/2024 4:43 PM EDT [facility] Comment:Accuracy of a [...] for testing. Comment 10/15/2024 4:43 PM EDT [facility] Exhaust Emissions Automotive Technician ID Lio Gomez 10/15/2024 4:43 PM EDT [facility] Device ID [id number] 10/15/2024 4:43 PM EDT [facility] Specimen Type POC Capillary 10/15/2024 4:43 PM EDT [facility] Blood Capillary blood specimen / Unknown 10/15/2024 4:41 PM EDT 10/15/2024 4:43 PM EDT us Jeannie Valle MD LAB POINT OF CARE TE ST DOCKED DEVICE UNSOLICITED RESULTS Final Result [facility] [address] [place] [address] * (ABNORMAL) POCT glucose meter (10/15/2024 12:06 PM EDT) Pathologist [facility] POCT Glucose 115(H) 74 - 99 mg/dL [...] Comment 10/15/2024 12:07 PM EDT [facility] Exhaust Emissions Automotive Technician ID Lio Gomez 10/15/2024 12:07 PM EDT [facility] Device ID [id number] 10/15/2024 12:07 PM EDT [facility] Specimen Type POC Capillary 10/15/2024 12:07 PM EDT [facility] Blood Capillary blood specimen / Unknown 10/15/2024 12:06 PM EDT 10/15/2024 12:07 PM EDT Jeannie Valle MD LAB POINT OF CARE TE ST DOCKED DEVICE UNSOLICITED RESULTS Final Result [facility] [address] [place] [address] * (ABNORMAL) POCT glucose meter (10/15/2024 8:04 AM EDT) Pathologist [facility] POCT Glucose 101(H) 74 - 99 mg/dL [...] for testing. Comment 10/15/2024 11:46 AM EDT [facility] Exhaust Emissions Automotive Technician ID Lio Gomez 10/15/2024 11:46 AM EDT [facility] Device ID [id number] 10/15/2024 11:46 AM EDT [facility] Specimen Type POC Capillary 10/15/2024 11:46 AM EDT [facility] Blood Capillary blood specimen / Unknown 10/15/2024 8:04 AM EDT 10/15/2024 11:46 AM EDT us Jeannie Valle MD LAB POINT OF CARE TE ST DOCKED DEVICE UNSOLICITED RESULTS Final Result Performing Organization Address City/[facility]/ZIP Co de Phone Number [facility] [address] [place] [address] * (ABNORMAL) POCT glucose meter (10/14/2024 8:01 PM EDT) [facility] POCT Glucose 186(H) 74 - 99 mg/dL [...] Comment 10/14/2024 8:02 PM EDT [facility] Exhaust Emissions Automotive Technician ID Matty Jeffries 10/14/2024 8:02 PM EDT [facility] Device ID [id number] 10/14/2024 8:02 PM EDT [facility] Specimen Type POC Capillary 10/14/2024 8:02 PM EDT [facility] Blood Capillary blood specimen / Unknown 10/14/2024 8:01 PM EDT 10/14/2024 8:02 PM EDT us Lamont Brumfield MD LAB POINT OF CARE TE ST DOCKED DEVICE UNSOLICITED RESULTS Final Result Performing Organization Address City/[facility]/ZIP Co de Phone Number [facility] [address] [place] [address] * POCT glucose meter (10/14/2024 4:34 PM EDT) [facility] POCT Glucose 98 74 - 99 mg/dL [...] for testing. Comment 10/14/2024 4:36 PM EDT [facility] Exhaust Emissions Automotive Technician ID Moisés Lopez 10/14/2024 4:36 PM EDT [facility] Device ID [id number] 10/14/2024 4:36 PM EDT [facility] Specimen Type POC Capillary 10/14/2024 4:36 PM EDT [facility] Blood Capillary blood specimen / Unknown 10/14/2024 4:34 PM EDT 10/14/2024 4:36 PM EDT Lamont Brumfield MD LAB POINT OF CARE TE ST DOCKED DEVICE UNSOLICITED RESULTS Final Result [facility] [address] [place] [address] * (ABNORMAL) POCT glucose meter (10/14/2024 12:00 PM EDT) [facility] POCT Glucose 139(H) 74 - 99 mg/dL 10/14/2024 12:02 PM EDT [facility] Comment:Accuracy of a [...] for testing. Comment 10/14/2024 12:02 PM EDT [facility] Exhaust Emissions Automotive Technician ID Moisés Lopez 10/14/2024 12:02 PM EDT [facility] Device ID [id number] 10/14/2024 12:02 PM EDT [facility] Specimen Type POC Capillary 10/14/2024 12:02 PM EDT [facility] Blood Capillary blood specimen / Unknown 10/14/2024 12:00 PM EDT 10/14/2024 12:02 PM EDT Lamont Brumfield MD LAB POINT OF CARE TE ST DOCKED DEVICE UNSOLICITED RESULTS Final Result Performing Organization Address [facility] de Phone Number [facility] [address] [place] [address] * (ABNORMAL) POCT glucose meter (10/14/2024 8:48 AM EDT) Pathologist [facility] POCT Glucose 111(H) 74 - 99 mg/dL 10/14/2024 8:50 AM EDT [facility] Comment:Accuracy of [...] Comment 10/14/2024 8:50 AM EDT [facility] Exhaust Emissions Automotive Technician ID Moisés Lopez 10/14/2024 8:50 AM EDT [facility] Device ID [id number] 10/14/2024 8:50 AM EDT [facility] Specimen Type POC Capillary 10/14/2024 8:50 AM EDT [facility] Blood Capillary blood specimen / Unknown 10/14/2024 8:48 AM EDT 10/14/2024 8:50 AM EDT us Lamont Brumfield MD LAB POINT OF CARE TE ST DOCKED DEVICE UNSOLICITED RESULTS Final Result Performing Organization Address City/[facility] Co de Phone Number [facility] [address] [place] [address] * POCT glucose meter (10/14/2024 8:32 AM EDT) Pathologist [facility] POCT Glucose 89 74 - 99 mg/dL 10/14/2024 8:34 AM EDT [facility] Comment:Accuracy of [...] Comment 10/14/2024 8:34 AM EDT [facility] Exhaust Emissions Automotive Technician ID Moisés Lopez 10/14/2024 8:34 AM EDT [facility] Device ID [id number] 10/14/2024 8:34 AM EDT [facility] Specimen Type POC Capillary 10/14/2024 8:34 AM EDT [facility] Blood Capillary blood specimen / Unknown 10/14/2024 8:32 AM EDT 10/14/2024 8:34 AM EDT us Lamont Brumfield MD LAB POINT OF CARE TE ST DOCKED DEVICE UNSOLICITED RESULTS Final Result Performing Organization Address City/[facility]/ZIP Co de Phone Number [facility] [address] [place] [address] * POCT glucose meter (10/14/2024 3:19 AM EDT) [facility] POCT Glucose 94 74 - 99 mg/dL 10/14/2024 3:21 AM EDT [facility] Comment:Accuracy of [...] for testing. Comment 10/14/2024 3:21 AM EDT [facility] Exhaust Emissions Automotive Technician ID Carri Chand 10/14/2024 3:21 AM EDT [facility] Device ID [id number] 10/14/2024 3:21 AM EDT [facility] Specimen Type POC Capillary 10/14/2024 3:21 AM EDT [facility] Blood Capillary blood specimen / Unknown 10/14/2024 3:19 AM EDT 10/14/2024 3:21 AM EDT us Lamont Brumfield MD LAB POINT OF CARE TE ST DOCKED DEVICE UNSOLICITED RESULTS Final Result [facility] [address] [place] [address] * (ABNORMAL) POCT glucose meter (10/13/2024 7:12 PM EDT) [facility] POCT Glucose 116(H) 74 - 99 mg/dL [...] Comment 10/13/2024 7:13 PM EDT [facility] Exhaust Emissions Automotive Technician ID Grazyna Bhakta 025 7:13 PM EDT [facility] Device ID [id number] 10/13/2024 7:13 PM EDT [facility] Specimen Type POC Capillary 10/13/2024 7:13 PM EDT [facility] Blood Capillary blood specimen / Unknown 10/13/2024 7:12 PM EDT 10/13/2024 7:13 PM EDT Lamont Brumfield MD LAB POINT OF CARE TE ST DOCKED DEVICE UNSOLICITED RESULTS Final Result Performing Organization Address [facility] de Phone Number [facility] [address] [place] [address] * (ABNORMAL) POCT glucose meter (10/13/2024 5:49 PM EDT) [facility] POCT Glucose 103(H) 74 - 99 mg/dL [...] 10/13/2024 5:51 PM EDT [facility] Exhaust Emissions Automotive Technician ID Moisés Lopez 10/13/2024 5:51 PM EDT [facility] Device ID [id number] 10/13/2024 5:51 PM EDT [facility] Specimen Type POC Capillary 10/13/2024 5:51 PM EDT [facility] Blood Capillary blood specimen / Unknown 10/13/2024 5:49 PM EDT 10/13/2024 5:51 PM EDT Lamont Brumfield MD LAB POINT OF CARE TE ST DOCKED DEVICE UNSOLICITED RESULTS Final Result Performing Organization Address City/[facility] Co de Phone Number [facility] [address] [place] [address] * POCT glucose meter (10/13/2024 4:44 PM EDT) Pathologist [facility] POCT Glucose 90 74 - 99 mg/dL [...] 10/13/2024 4:45 PM EDT [facility] Exhaust Emissions Automotive Technician ID Moisés Lopez 10/13/2024 4:45 PM EDT [facility] Device ID [id number] 10/13/2024 4:45 PM EDT [facility] Specimen Type POC Capillary 10/13/2024 4:45 PM EDT [facility] Blood Capillary blood specimen / Unknown 10/13/2024 4:44 PM EDT 10/13/2024 4:45 PM EDT us Lamont Brumfield MD LAB POINT OF CARE TE ST DOCKED DEVICE UNSOLICITED RESULTS Final Result Performing Organization Address City/[facility] de Phone Number [facility] [address] [place] [address] * (ABNORMAL) POCT glucose meter (10/13/2024 11:59 AM EDT) POCT Glucose 159(H) 74 - 99 mg/dL [...] for testing. Comment 10/13/2024 12:00 PM EDT [facility] Exhaust Emissions Automotive Technician ID Moisés Lopez 10/13/2024 12:00 PM EDT [facility] Device ID [id number] 10/13/2024 12:00 PM EDT [facility] Specimen Type POC Capillary 10/13/2024 12:00 PM EDT [facility] Blood Capillary blood specimen / Unknown 10/13/2024 11:59 AM EDT 10/13/2024 12:00 PM EDT Lamont Brumfield MD LAB POINT OF CARE TE ST DOCKED DEVICE UNSOLICITED RESULTS Final Result [facility] [address] [place] [address] * (ABNORMAL) POCT glucose meter (10/13/2024 10:43 AM EDT) [facility] POCT Glucose 151(H) 74 - 99 mg/dL [...] 10/13/2024 10:45 AM EDT [facility] Exhaust Emissions Automotive Technician ID Moisés Lopez 10/13/2024 10:45 AM EDT [facility] Device ID [id number] 10/13/2024 10:45 AM EDT [facility] Specimen Type POC Capillary 10/13/2024 10:45 AM EDT [facility] Blood Capillary blood specimen / Unknown 10/13/2024 10:43 AM EDT 10/13/2024 10:45 AM EDT us Lamont Brumfield MD LAB POINT OF CARE TE ST DOCKED DEVICE UNSOLICITED RESULTS Final Result Performing Organization Address [facility] de Phone Number [facility] [address] [place] [address] * POCT glucose meter (10/13/2024 9:20 AM [...] for testing. Comment 10/13/2024 9:21 AM EDT [facility] Exhaust Emissions Automotive Technician ID Moisés Lopez 10/13/2024 9:21 AM EDT [facility] Device ID [id number] 10/13/2024 9:21 AM EDT [facility] Specimen Type POC Capillary 10/13/2024 9:21 AM EDT [facility] Blood Capillary blood specimen / Unknown 10/13/2024 9:20 AM EDT 10/13/2024 9:21 AM EDT us Lamont Brumfield MD LAB POINT OF CARE TE ST DOCKED DEVICE UNSOLICITED RESULTS Final Result Performing Organization Address City/[facility] Co de Phone Number [facility] [address] [place] [address] * POCT glucose meter (10/13/2024 8:44 AM [...] 10/13/2024 8:47 AM EDT [facility] Exhaust Emissions Automotive Technician ID Moisés Lopez 10/13/2024 8:47 AM EDT [facility] Device ID [id number] 10/13/2024 8:47 AM EDT [facility] Specimen Type POC Capillary 10/13/2024 8:47 AM EDT [facility] Blood Capillary blood specimen / Unknown 10/13/2024 8:44 AM EDT 10/13/2024 8:47 AM EDT us Lamont Brumifeld MD LAB POINT OF CARE TE ST DOCKED DEVICE UNSOLICITED RESULTS Final Result Performing Organization Address [facility] de Phone Number [facility] [address] [place] [address] * (ABNORMAL) POCT glucose meter (10/12/2024 8:07 PM EDT) [facility] POCT Glucose 123(H) 74 - 99 mg/dL [...] for testing. Comment 10/12/2024 8:09 PM EDT [facility] Exhaust Emissions Automotive Technician ID Day Nicole 10/12/2024 8:09 PM EDT [facility] Device ID [id number] 10/12/2024 8:09 PM EDT [facility] Specimen Type POC Capillary 10/12/2024 8:09 PM EDT [facility] Blood Capillary blood specimen / Unknown 10/12/2024 8:07 PM EDT 10/12/2024 8:09 PM EDT us Lamont Brumfield MD LAB POINT OF CARE TE ST DOCKED DEVICE UNSOLICITED RESULTS Final Result Performing Organization Address City/[facility] Co de Phone Number [facility] [address] [place] [address] * (ABNORMAL) POCT glucose meter (10/12/2024 5:32 PM EDT) [facility] POCT Glucose 104(H) 74 - 99 mg/dL [...] for testing. Comment 10/12/2024 5:33 PM EDT [facility] Exhaust Emissions Automotive Technician Arlene Humphries 10/12/2024 5:33 PM EDT [facility] Device ID [id number] 10/12/2024 5:33 PM EDT [facility] Specimen Type POC Capillary 10/12/2024 5:33 PM EDT [facility] Blood Capillary blood specimen / Unknown 10/12/2024 5:32 PM EDT 10/12/2024 5:33 PM EDT us Lamont Brumfield MD LAB POINT OF CARE TE ST DOCKED DEVICE UNSOLICITED RESULTS Final Result [facility] [address] [place] [address] * POCT glucose meter (10/12/2024 5:00 PM EDT) [facility] POCT Glucose 82 74 - 99 mg/dL [...] for testing. Comment 10/12/2024 5:02 PM EDT [facility] Exhaust Emissions Automotive Technician NORMAN Arlene Kerr 10/12/2024 5:02 PM EDT [facility] Device ID [id number] 10/12/2024 5:02 PM EDT [facility] Specimen Type POC Capillary 10/12/2024 5:02 PM EDT [facility] Blood Capillary blood specimen / Unknown 10/12/2024 5:00 PM EDT 10/12/2024 5:02 PM EDT us Lamont Brumfield MD LAB POINT OF CARE TE ST DOCKED DEVICE UNSOLICITED RESULTS Final Result Performing Organization Address City/[facility]/ZIP Co de Phone Number [facility] [address] [place] [address] * (ABNORMAL) POCT glucose meter (10/12/2024 12:02 PM EDT) POCT Glucose 171(H) 74 - 99 mg/dL [...] 10/12/2024 12:04 PM EDT [facility] Exhaust Emissions Automotive Technician ID Arlene Kerr 10/12/2024 12:04 PM EDT [facility] Device ID [id number] 10/12/2024 12:04 PM EDT [facility] Specimen Type POC Capillary 10/12/2024 12:04 PM EDT [facility] Blood Capillary blood specimen / Unknown 10/12/2024 12:02 PM EDT 10/12/2024 12:04 PM EDT us Lamont Brumfield MD LAB POINT OF CARE TE ST DOCKED DEVICE UNSOLICITED RESULTS Final Result [facility] [address] [place] [address] * POCT glucose meter (10/12/2024 8:38 AM EDT) POCT Glucose 95 74 - 99 mg/dL [...] for testing. Comment 10/12/2024 8:39 AM EDT [facility] Exhaust Emissions Automotive Technician Arlene Humphries 10/12/2024 8:39 AM EDT [facility] Device ID [id number] 10/12/2024 8:39 AM EDT [facility] Specimen Type POC Capillary 10/12/2024 8:39 AM EDT [facility] Blood Capillary blood specimen / Unknown 10/12/2024 8:38 AM EDT 10/12/2024 8:39 AM EDT us Lamont Brumfield MD LAB POINT OF CARE TE ST DOCKED DEVICE UNSOLICITED RESULTS Final Result Performing Organization Address City/State/[facility] Co de Phone Number [facility] [address] [place] [address] * POCT glucose meter (10/12/2024 8:00 AM EDT) [facility] Signature POCT Glucose 88 74 - 99 mg/dL [...] for testing. Comment 10/12/2024 8:01 AM EDT [facility] Exhaust Emissions Automotive Technician Arlene Humphries 10/12/2024 8:01 AM EDT [facility] Device ID [id number] 10/12/2024 8:01 AM EDT [facility] Specimen Type POC Capillary 10/12/2024 8:01 AM EDT [facility] Blood Capillary blood specimen / Unknown 10/12/2024 8:00 AM EDT 10/12/2024 8:01 AM EDT us Lamont Brumfield MD LAB POINT OF CARE TE ST DOCKED DEVICE UNSOLICITED RESULTS Final Result Performing Organization Address City/[facility] Co de Phone Number [facility] [address] [place] [address] * (ABNORMAL) POCT glucose meter (10/11/2024 7:34 [...] Comment 10/11/2024 7:35 PM EDT [facility] Exhaust Emissions Automotive Technician ID [email or web address] 10/11/2024 7:35 PM EDT [facility] Device ID [id number] 10/11/2024 7:35 PM EDT [facility] Specimen Type POC Capillary 10/11/2024 7:35 PM EDT [facility] Blood Capillary blood specimen / Unknown 10/11/2024 7:34 PM EDT 10/11/2024 7:35 PM EDT Lamont Brumfield MD LAB POINT OF CARE TE ST DOCKED DEVICE UNSOLICITED RESULTS Final Result Performing Organization Address City/[facility] Co de Phone Number [facility] [address] [place] [address] * (ABNORMAL) POCT glucose meter (10/11/2024 4:34 [...] for testing. Comment 10/11/2024 4:37 PM EDT [facility] Exhaust Emissions Automotive Technician ID Amara Zhang 4:37 PM EDT [facility] Device ID [id number] 10/11/2024 4:37 PM EDT [facility] Specimen Type POC Capillary 10/11/2024 4:37 PM EDT [facility] Blood Capillary blood specimen / Unknown 10/11/2024 4:34 PM EDT 10/11/2024 4:37 PM EDT us Lamont Brumfield MD LAB POINT OF CARE TE ST DOCKED DEVICE UNSOLICITED RESULTS Final Result Performing Organization Address City/[facility] Co de Phone Number [facility] [address] [place] [address] * (ABNORMAL) POCT glucose meter (10/11/2024 2:18 PM EDT) POCT Glucose 117(H) 74 - 99 mg/dL [...] for testing. Comment 10/11/2024 2:37 PM EDT [facility] Exhaust Emissions Automotive Technician ID Amara Zhang 2:37 PM EDT [facility] Device ID [id number] 10/11/2024 2:37 PM EDT [facility] Specimen Type POC Capillary 10/11/2024 2:37 PM EDT [facility] Blood Capillary blood specimen / Unknown 10/11/2024 2:18 PM EDT 10/11/2024 2:37 PM EDT us Lamont Brumfield MD LAB POINT OF CARE TE ST DOCKED DEVICE UNSOLICITED RESULTS Final Result Performing Organization Address City/[facility]/ZIP Co de Phone Number [facility] [address] [place] [address] * (ABNORMAL) POCT glucose meter (10/11/2024 8:37 AM EDT) Pathologist [facility] POCT Glucose 119(H) 74 - 99 mg/dL 10/11/2024 8:38 AM EDT [facility] Comment:Accuracy of a [...] Comment 10/11/2024 8:38 AM EDT [facility] Exhaust Emissions Automotive Technician ID Moisés Lopez 10/11/2024 8:38 AM EDT [facility] Device ID [id number] 10/11/2024 8:38 AM EDT [facility] Specimen Type POC Capillary 10/11/2024 8:38 AM EDT [facility] Blood Capillary blood specimen / Unknown 10/11/2024 8:37 AM EDT 10/11/2024 8:38 AM EDT us Lamont Brumfield MD LAB POINT OF CARE TE ST DOCKED DEVICE UNSOLICITED RESULTS Final Result Performing Organization Address City/State/[facility] Co de Phone Number [facility] [address] [place] [address] * (ABNORMAL) POCT glucose meter (10/10/2024 7:34 PM EDT) [facility] POCT Glucose 141(H) 74 - 99 mg/dL [...] 10/10/2024 7:36 PM EDT [facility] Exhaust Emissions Automotive Technician ID Blair Murray 10/11/19 7:36 PM EDT [facility] Device ID [id number] 10/10/2024 7:36 PM EDT [facility] Specimen Type POC Capillary 10/10/2024 7:36 PM EDT [facility] Blood Capillary blood specimen / Unknown 10/10/2024 7:34 PM EDT 10/10/2024 7:36 PM EDT Lamont Brumfield MD LAB POINT OF CARE TE ST DOCKED DEVICE UNSOLICITED RESULTS Final Result [facility] [address] [place] [address] * (ABNORMAL) POCT glucose meter (10/10/2024 4:26 [...] for testing. Comment 10/10/2024 4:28 PM EDT [facility] Exhaust Emissions Automotive Technician ID Lio Gomez 10/10/2024 4:28 PM EDT [facility] Device ID [id number] 10/10/2024 4:28 PM EDT [facility] Specimen Type POC Capillary 10/10/2024 4:28 PM EDT [facility] Blood Capillary blood specimen / Unknown 10/10/2024 4:26 PM EDT 10/10/2024 4:28 PM EDT us Lamont Brumfield MD LAB POINT OF CARE TE ST DOCKED DEVICE UNSOLICITED RESULTS Final Result [facility] [address] [place] [address] * (ABNORMAL) POCT glucose meter (10/10/2024 12:07 PM EDT) POCT Glucose 145(H) 74 - [...] for testing. Comment 10/10/2024 12:09 PM EDT [facility] Exhaust Emissions Automotive Technician ID Lio Gomez 10/10/2024 12:09 PM EDT [facility] Device ID [id number] 10/10/2024 12:09 PM EDT [facility] Specimen Type POC Capillary 10/10/2024 12:09 PM EDT [facility] Blood Capillary blood specimen / Unknown 10/10/2024 12:07 PM EDT 10/10/2024 12:09 PM EDT us Lamont Brumfield MD LAB POINT OF CARE TE ST DOCKED DEVICE UNSOLICITED RESULTS Final Result Performing Organization Address City/State/[facility] Co de Phone Number [facility] [address] [place] [address] * (ABNORMAL) POCT glucose meter (10/10/2024 9:40 AM EDT) [facility] Signature POCT Glucose 162(H) 74 - 99 mg/dL 10/10/2024 9:41 AM EDT [facility] Comment:Accuracy of a [...] for testing. Comment 10/10/2024 9:41 AM EDT [facility] Exhaust Emissions Automotive Technician ID Lio Gomez 10/10/2024 9:41 AM EDT [facility] Device ID [id number] 10/10/2024 9:41 AM EDT [facility] Specimen Type POC Capillary 10/10/2024 9:41 AM EDT [facility] Blood Capillary blood specimen / Unknown 10/10/2024 9:40 AM EDT 10/10/2024 9:41 AM EDT us Lamont Brumfield MD LAB POINT OF CARE TE ST DOCKED DEVICE UNSOLICITED RESULTS Final Result Performing Organization Address City/[facility] Co de Phone Number [facility] [address] [place] [address] * (ABNORMAL) POCT glucose meter (10/10/2024 9:00 [...] for testing. Comment 10/10/2024 9:01 AM EDT [facility] Exhaust Emissions Automotive Technician ID Rose Guy 025 9:01 AM EDT [facility] Device ID [id number] 10/10/2024 9:01 AM EDT [facility] Specimen Type POC Capillary 10/10/2024 9:01 AM EDT [facility] Blood Capillary blood specimen / Unknown 10/10/2024 9:00 AM EDT 10/10/2024 9:01 AM EDT Lamont Brumfield MD LAB POINT OF CARE TE ST DOCKED DEVICE UNSOLICITED RESULTS Final Result Performing Organization Address City/[facility] Co de Phone Number [facility] [address] [place] [address] * (ABNORMAL) POCT glucose meter (10/09/2024 8:22 [...] for testing. Comment 10/09/2024 8:24 PM EDT [facility] Exhaust Emissions Automotive Technician ID Marilee Sevilla 8:24 PM EDT [facility] LAB Device ID [id number] 10/09/2024 8:24 PM EDT [facility] Specimen Type POC Capillary 10/09/2024 8:24 PM EDT [facility] Blood Capillary blood specimen / Unknown 10/09/2024 8:22 PM EDT 10/09/2024 8:24 PM EDT Lamont Brumfield MD LAB POINT OF CARE TE ST DOCKED DEVICE UNSOLICITED RESULTS Final Result Performing Organization Address City/[facility] Co de Phone Number [facility] [address] [place] [address] * (ABNORMAL) POCT glucose meter (10/09/2024 4:43 PM EDT) [facility] POCT Glucose 176(H) 74 - 99 mg/dL 10/09/2024 4:45 PM EDT [facility] Comment:Accuracy of a [...] for testing. Comment 10/09/2024 4:45 PM EDT [facility] Exhaust Emissions Automotive Technician ID Lio Gomez 10/09/2024 4:45 PM EDT [facility] Device ID [id number] 10/09/2024 4:45 PM EDT [facility] Specimen Type POC Capillary 10/09/2024 4:45 PM EDT [facility] Blood Capillary blood specimen / Unknown 10/09/2024 4:43 PM EDT 10/09/2024 4:45 PM EDT Lamont Brumfield MD LAB POINT OF CARE TE ST DOCKED DEVICE UNSOLICITED RESULTS Final Result Performing Organization Address City/[facility]/ZIP Co de Phone Number [facility] [address] [place] [address] * (ABNORMAL) Hemoglobin and Hematocrit, Blood (10/09/2024 3:45 PM EDT) HGB 8.2(L) 13.7 - 17.5 g/dL LAB HEMATOLOGY METHOD 10/09/2024 3:54 PM EDT [facility] HCT 23.7(L) 40.0 - 51.0 % LAB HEMATOLOGY METHOD 10/09/2024 3:54 PM EDT [facility] Blood Arterial blood specimen / Unknown Arterial Puncture / Unknown 10/09/2024 3:45 PM EDT 10/09/2024 3:52 PM EDT us Daphne Landry SUPERINTENDENT DISTRIBUTION, DNP LAB BLOOD ORDERABLES Selene jacinto Result Performing Organization Address [facility] Co de Phone Number [facility] [address] [place] [address] * (ABNORMAL) POCT glucose meter (10/09/2024 8:01 AM EDT) [facility] POCT Glucose 100(H) 74 - 99 mg/dL 10/09/2024 11:23 AM EDT [facility] Comment:Accuracy of a glucos e [...] Comment 10/09/2024 11:23 AM EDT [facility] Exhaust Emissions Automotive Technician ID Lio Gomez 10/09/2024 11:23 AM EDT [facility] Device ID [id number] 10/09/2024 11:23 AM EDT [facility] Specimen Type POC Capillary 10/09/2024 11:23 AM EDT [facility] Blood Capillary blood specimen / Unknown 10/09/2024 8:01 AM EDT 10/09/2024 11:23 AM EDT us Lamont Brumfield MD LAB POINT OF CARE TE ST DOCKED DEVICE UNSOLICITED RESULTS Final Result Performing Organization Address City/[facility] Co de Phone Number [facility] [address] [place] [address] * (ABNORMAL) POCT glucose meter (10/08/2024 7:37 PM EDT) Pathologist [facility] POCT Glucose 138(H) 74 - 99 mg/dL [...] for testing. Comment 10/08/2024 7:39 PM EDT [facility] Exhaust Emissions Automotive Technician ID Grazyna Bhakta 025 7:39 PM EDT [facility] Device ID [id number] 10/08/2024 7:39 PM EDT [facility] Specimen Type POC Capillary 10/08/2024 7:39 PM EDT [facility] Blood Capillary blood specimen / Unknown 10/08/2024 7:37 PM EDT 10/08/2024 7:39 PM EDT Lamont Brumfield MD LAB POINT OF CARE TE ST DOCKED DEVICE UNSOLICITED RESULTS Final Result [facility] [address] [place] [address] * (ABNORMAL) POCT glucose meter (10/08/2024 4:42 PM EDT) [facility] POCT Glucose 109(H) 74 - 99 mg/dL [...] for testing. Comment 10/08/2024 4:43 PM EDT [facility] Exhaust Emissions Automotive Technician ID Lio Gomez 10/08/2024 4:43 PM EDT [facility] Device ID [id number] 10/08/2024 4:43 PM EDT [facility] Specimen Type POC Capillary 10/08/2024 4:43 PM EDT [facility] Blood Capillary blood specimen / Unknown 10/08/2024 4:42 PM EDT 10/08/2024 4:43 PM EDT us Lamont Brumfield MD LAB POINT OF CARE TE ST DOCKED DEVICE UNSOLICITED RESULTS Final Result Performing Organization Address City/[facility]/ZIP Co de Phone Number [facility] [address] [place] [address] * (ABNORMAL) POCT glucose meter (10/08/2024 12:11 PM EDT) POCT Glucose 252(H) 74 - 99 mg/dL [...] Comment 10/08/2024 12:13 PM EDT [facility] Exhaust Emissions Automotive Technician ID Lio Gomez 10/08/2024 12:13 PM EDT [facility] Device ID [id number] 10/08/2024 12:13 PM EDT [facility] Specimen Type POC Capillary 10/08/2024 12:13 PM EDT [facility] Blood Capillary blood specimen / Unknown 10/08/2024 12:11 PM EDT 10/08/2024 12:13 PM EDT us Lamont Brumfield MD LAB POINT OF CARE TE ST DOCKED DEVICE UNSOLICITED RESULTS Final Result [facility] [address] [place] [address] * (ABNORMAL) POCT glucose meter (10/08/2024 8:21 AM EDT) POCT Glucose 108(H) 74 - [...] for testing. Comment 10/08/2024 8:22 AM EDT [facility] Exhaust Emissions Automotive Technician ID Lio Gomez 10/08/2024 8:22 AM EDT [facility] Device ID [id number] 10/08/2024 8:22 AM EDT [facility] Specimen Type POC Capillary 10/08/2024 8:22 AM EDT [facility] Blood Capillary blood specimen / Unknown 10/08/2024 8:21 AM EDT 10/08/2024 8:22 AM EDT Lamont Brumfield MD LAB POINT OF CARE TE ST DOCKED DEVICE UNSOLICITED RESULTS Final Result Performing Organization Address City/State/[facility] Co de Phone Number [facility] [address] [place] [address] * (ABNORMAL) POCT glucose meter (10/07/2024 9:10 PM EDT) [facility] POCT Glucose 134(H) 74 - 99 mg/dL [...] 10/07/2024 9:12 PM EDT [facility] Exhaust Emissions Automotive Technician ID Marilee Sevilla 9:12 PM EDT [facility] Device ID [id number] 10/07/2024 9:12 PM EDT [facility] Specimen Type POC Capillary 10/07/2024 9:12 PM EDT [facility] Blood Capillary blood specimen / Unknown 10/07/2024 9:10 PM EDT 10/07/2024 9:12 PM EDT us Lamont Brumfield MD LAB POINT OF CARE TE ST DOCKED DEVICE UNSOLICITED RESULTS Final Result Performing Organization Address [facility] Co de Phone Number [facility] [address] [place] [address] * (ABNORMAL) POCT glucose meter (10/07/2024 4:28 [...] for testing. Comment 10/07/2024 4:30 PM EDT [facility] Exhaust Emissions Automotive Technician ID Moisés Lopez 10/07/2024 4:30 PM EDT [facility] Device ID [id number] 10/07/2024 4:30 PM EDT [facility] Specimen Type POC Capillary 10/07/2024 4:30 PM EDT [facility] Blood Capillary blood specimen / Unknown 10/07/2024 4:28 PM EDT 10/07/2024 4:30 PM EDT us Leda Zeng MD LAB POIN T OF CARE TEST DOCKED DEVICE UNSOLICITED RESULTS Final Result Performing Organization Address City/[facility] Co de Phone Number [facility] [address] [place] [address] * (ABNORMAL) POCT glucose meter (10/07/2024 1:04 [...] for testing. Comment 10/07/2024 1:06 PM EDT [facility] Exhaust Emissions Automotive Technician ID Dorothea Rai 1:06 PM EDT [facility] Device ID [id number] 10/07/2024 1:06 PM EDT [facility] Specimen Type POC Capillary 10/07/2024 1:06 PM EDT [facility] Blood Capillary blood specimen / Unknown 10/07/2024 1:04 PM EDT 10/07/2024 1:06 PM EDT Leda Zeng MD LAB POIN T OF CARE TEST DOCKED DEVICE UNSOLICITED RESULTS Final Result Performing Organization Address City/[facility] Co de Phone Number [facility] [address] [place] [address] * (ABNORMAL) POCT glucose meter (10/07/2024 8:24 AM EDT) [facility] Signature POCT Glucose 116(H) 74 - 99 mg/dL 10/07/2024 8:26 AM EDT [facility] Comment:Accuracy of a [...] for testing. Comment 10/07/2024 8:26 AM EDT [facility] Exhaust Emissions Automotive Technician ID Moisés Lopez 10/07/2024 8:26 AM EDT [facility] Device ID [id number] 10/07/2024 8:26 AM EDT [facility] Specimen Type POC Capillary 10/07/2024 8:26 AM EDT [facility] Blood Capillary blood specimen / Unknown 10/07/2024 8:24 AM EDT 10/07/2024 8:26 AM EDT Leda Zeng MD LAB POIN T OF CARE TEST DOCKED DEVICE UNSOLICITED RESULTS Final Result Performing Organization Address City/[facility] Co de Phone Number [facility] [address] [place] [address] * POCT glucose meter (10/07/2024 7:37 AM EDT) [facility] POCT Glucose 85 74 - 99 mg/dL 10/07/2024 7:39 AM EDT [facility] Comment:Accuracy of [...] Comment 10/07/2024 7:39 AM EDT [facility] Exhaust Emissions Automotive Technician ID Moisés Lopez 10/07/2024 7:39 AM EDT [facility] Device ID [id number] 10/07/2024 7:39 AM EDT [facility] Specimen Type POC Capillary 10/07/2024 7:39 AM EDT [facility] Blood Capillary blood specimen / Unknown 10/07/2024 7:37 AM EDT 10/07/2024 7:39 AM EDT Leda Zeng MD LAB POIN T OF CARE TEST DOCKED DEVICE UNSOLICITED RESULTS Final Result Performing Organization Address City/[facility]/ZIP Co de Phone Number [facility] [address] [place] [address] * (ABNORMAL) Magnesium, Plasma (10/07/2024 2:48 AM EDT) [facility] Magnesium, Plasma 1.6(L) 1.9 - 2.4 mg/dL 10/07/2024 3:28 AM EDT [facility] Blood Venous blood specimen / Unknown Venipuncture / Unknown 10/07/2024 2:48 AM EDT 10/07/2024 2:58 AM EDT Leda Zeng MD LAB BLOOD ORDERA BLES Final Result Performing Organization Address City/[facility]/ZIP Co de Phone Number [facility] [address] [place] [address] * (ABNORMAL) Renal Function Panel, Plasma (10/07/2024 2:48 AM EDT) [facility] Glucose, Plasma 96 74 - 99 mg/dL 10/07/2024 3:28 AM EDT [facility] BUN, Plasma 41(H) 8 - 23 mg/dL 10/07/2024 3:28 AM EDT [facility] Creatinine, Plasma 6.91(H) 0.70 - 1.20 mg/dL 10/07/2024 3:28 AM EDT [facility] BUN/Creatinine Ratio 6 10/07/2024 3:28 AM EDT [facility] Sodium, Plasma 125(L) 136 - 145 mmol/L 10/07/2024 3:28 AM EDT [facility] Potassium, Plasma 4.1 3.6 - 4.9 mmol/L 10/07/2024 3:28 AM EDT [facility] Chloride, Plasma 92(L) 97 - 107 mmol/L 10/07/2024 3:28 AM EDT [facility] CO2, Plasma 23 22 - 29 mmol/L 10/07/2024 3:28 AM EDT [facility] Anion Gap 10 6 - 16 mmol/L 10/07/2024 3:28 AM EDT [facility] Total Calcium, Plasma 7.2(L) 8.9 - 10.2 mg/dL 10/07/2024 3:28 AM EDT [facility] Phosphorus, Plasma 4.2 2.5 - 4.5 mg/dL 10/07/2024 3:28 AM EDT [facility] Albumin, Plasma 3.1(L) 3.5 - 5.2 g/dL 10/07/2024 3:28 AM EDT [facility] eGFRcr 8.2 mL/min/1.7 3m*2 10/07/2024 3:28 AM EDT [facility] Comment:Reported eGFRcr in m L/min/1.73m2 is based the CKD-EPI 2020 equation that does not use a race coefficient. Blood Venous blood specimen / Unknown Venipuncture / Unknown 10/07/2024 2:48 AM EDT 10/07/2024 2:58 AM EDT Leda Zeng MD LAB BLOOD ORDERA BLES Final Result [facility] [address] [place] [address] * (ABNORMAL) POCT glucose meter (10/06/2024 7:42 PM EDT) [facility] POCT Glucose 129(H) 74 - 99 mg/dL [...] for testing. Comment 10/06/2024 7:44 PM EDT [facility] Exhaust Emissions Automotive Technician ID Grazyna Bhakta 025 7:44 PM EDT [facility] Device ID [id number] 10/06/2024 7:44 PM EDT [facility] Specimen Type POC Capillary 10/06/2024 7:44 PM EDT [facility] Blood Capillary blood specimen / Unknown 10/06/2024 7:42 PM EDT 10/06/2024 7:44 PM EDT Leda Zeng MD LAB POIN T OF CARE TEST DOCKED DEVICE UNSOLICITED RESULTS Final Result Performing Organization Address [facility] Co de Phone Number [facility] [address] [place] [address] * (ABNORMAL) POCT glucose meter (10/06/2024 5:00 PM EDT) [facility] POCT Glucose 137(H) 74 - 99 mg/dL [...] for testing. Comment 10/06/2024 5:01 PM EDT [facility] Exhaust Emissions Automotive Technician ID Moisés Lopez 10/06/2024 5:01 PM EDT [facility] Device ID [id number] 10/06/2024 5:01 PM EDT [facility] Specimen Type POC Capillary 10/06/2024 5:01 PM EDT [facility] Blood Capillary blood specimen / Unknown 10/06/2024 5:00 PM EDT 10/06/2024 5:01 PM EDT Leda Zeng MD LAB POIN T OF CARE TEST DOCKED DEVICE UNSOLICITED RESULTS Final Result Performing Organization Address City/[facility] Co de Phone Number [facility] [address] [place] [address] * (ABNORMAL) POCT glucose meter (10/06/2024 12:03 PM EDT) [facility] POCT Glucose 122(H) 74 - 99 mg/dL 10/06/2024 12:05 PM EDT [facility] Comment:Accuracy of [...] for testing. Comment 10/06/2024 12:05 PM EDT [facility] Exhaust Emissions Automotive Technician ID Moisés Lopez 10/06/2024 12:05 PM EDT [facility] Device ID [id number] 10/06/2024 12:05 PM EDT [facility] Specimen Type POC Capillary 10/06/2024 12:05 PM EDT [facility] Blood Capillary blood specimen / Unknown 10/06/2024 12:03 PM EDT 10/06/2024 12:05 PM EDT Leda Zeng MD LAB POIN T OF CARE TEST DOCKED DEVICE UNSOLICITED RESULTS Final Result Performing Organization Address City/[facility]/ZIP Co de Phone Number [facility] [address] [place] [address] * POCT glucose meter (10/06/2024 11:10 AM EDT) [facility] POCT Glucose 96 74 - 99 mg/dL [...] for testing. Comment 10/06/2024 11:12 AM EDT [facility] Exhaust Emissions Automotive Technician ID Moisés Lopez 10/06/2024 11:12 AM EDT [facility] Device ID [id number] 10/06/2024 11:12 AM EDT [facility] Specimen Type POC Capillary 10/06/2024 11:12 AM EDT [facility] Blood Capillary blood specimen / Unknown 10/06/2024 11:10 AM EDT 10/06/2024 11:12 AM EDT Leda Zeng MD LAB POIN T OF CARE TEST DOCKED DEVICE UNSOLICITED RESULTS Final Result Performing Organization Address City/[facility] Co de Phone Number [facility] [address] [place] [address] * (ABNORMAL) Magnesium, Plasma (10/06/2024 3:05 AM EDT) Magnesium, Plasma 1.8(L) 1.9 - 2.4 mg/dL 10/06/2024 3:55 AM EDT [facility] Blood Venous blood specimen / Unknown Venipuncture / Unknown 10/06/2024 3:05 AM EDT 10/06/2024 3:27 AM EDT Leda Zeng MD LAB BLOOD ORDERA BLES Final Result Performing Organization Address [facility] Co de Phone Number [facility] [address] [place] [address] * (ABNORMAL) Renal Function Panel, Plasma (10/06/2024 3:05 AM EDT) Glucose, Plasma 103(H) 74 - 99 mg/dL 10/06/2024 3:55 AM EDT [facility] BUN, Plasma 30(H) 8 - 23 mg/dL 10/06/2024 3:55 AM EDT [facility] Creatinine, Plasma 5.95(H) 0.70 - 1.20 mg/dL 10/06/2024 3:55 AM EDT [facility] BUN/Creatinine Ratio 5 10/06/2024 3:55 AM EDT [facility] Sodium, Plasma 125(L) 136 - 145 mmol/L 10/06/2024 3:55 AM EDT [facility] Potassium, Plasma 3.8 3.6 - 4.9 mmol/L 10/06/2024 3:55 AM EDT [facility] Chloride, Plasma 92(L) 97 - 107 mmol/L 10/06/2024 3:55 AM EDT [facility] CO2, Plasma 23 22 - 29 mmol/L 10/06/2024 3:55 AM EDT [facility] Anion Gap 10 6 - 16 mmol/L 10/06/2024 3:55 AM EDT [facility] Total Calcium, Plasma 7.5(L) 8.9 - 10.2 mg/dL 10/06/2024 3:55 AM EDT [facility] Phosphorus, Plasma 3.5 2.5 - 4.5 mg/dL 10/06/2024 3:55 AM EDT [facility] Albumin, Plasma 3.2(L) 3.5 - 5.2 g/dL 10/06/2024 3:55 AM EDT [facility] eGFRcr 9.8 mL/min/1.7 3m*2 10/06/2024 3:55 AM EDT [facility] Comment:Reported eGFRcr in m L/min/1.73m2 is based the CKD-EPI 2020 equation that does not use a race coefficient. Blood Venous blood specimen / Unknown Venipuncture / Unknown 10/06/2024 3:05 AM EDT 10/06/2024 3:27 AM EDT us Leda Zeng MD LAB BLOOD ORDERA BLES Final Result [facility] [address] [place] [address] * (ABNORMAL) POCT glucose meter (10/05/2024 8:10 PM EDT) [facility] POCT Glucose 136(H) 74 - 99 mg/dL [...] for testing. Comment 10/05/2024 8:12 PM EDT [facility] Exhaust Emissions Automotive Technician ID Wilbur Samayoa 10/05/2024 8:12 PM EDT [facility] Device ID [id number] 10/05/2024 8:12 PM EDT [facility] Specimen Type POC Capillary 10/05/2024 8:12 PM EDT [facility] Blood Capillary blood specimen / Unknown 10/05/2024 8:10 PM EDT 10/05/2024 8:12 PM EDT Leda Zeng MD LAB POIN T OF CARE TEST DOCKED DEVICE UNSOLICITED RESULTS Final Result Performing Organization Address City/State/[facility] Co de Phone Number [facility] [address] [place] [address] * (ABNORMAL) POCT glucose meter (10/05/2024 4:21 PM EDT) [facility] POCT Glucose 114(H) 74 - 99 mg/dL 10/05/2024 4:23 PM EDT [facility] Comment:Accuracy of a [...] Comment 10/05/2024 4:23 PM EDT [facility] Exhaust Emissions Automotive Technician ID Ricco Piper 10/05/2024 4:23 PM EDT [facility] Device ID [id number] 10/05/2024 4:23 PM EDT [facility] Specimen Type POC Capillary 10/05/2024 4:23 PM EDT [facility] Blood Capillary blood specimen / Unknown 10/05/2024 4:21 PM EDT 10/05/2024 4:23 PM EDT Leda Zeng MD LAB POIN T OF CARE TEST DOCKED DEVICE UNSOLICITED RESULTS Final Result Performing Organization Address City/[facility]/ZIP Co de Phone Number [facility] [address] [place] [address] * (ABNORMAL) POCT glucose meter (10/05/2024 11:52 AM EDT) POCT Glucose 142(H) 74 - 99 mg/dL 10/05/2024 12:00 PM EDT [facility] Comment:Accuracy [...] Comment 10/05/2024 12:00 PM EDT [facility] Exhaust Emissions Automotive Technician ID Ricco Piper 10/05/2024 12:00 PM EDT [facility] Device ID [id number] 10/05/2024 12:00 PM EDT [facility] Specimen Type POC Capillary 10/05/2024 12:00 PM EDT [facility] Blood Capillary blood specimen / Unknown 10/05/2024 11:52 AM EDT 10/05/2024 12:00 PM EDT Leda Zeng MD LAB POIN T OF CARE TEST DOCKED DEVICE UNSOLICITED RESULTS Final Result Performing Organization Address City/[facility]/ZIP Co de Phone Number [facility] [address] [place] [id number] * (ABNORMAL) POCT glucose meter (10/05/2024 9:09 AM EDT) POCT Glucose 130(H) 74 - 99 mg/dL [...] for testing. Comment 10/05/2024 9:12 AM EDT [facility] Exhaust Emissions Automotive Technician ID Ricco Piper 10/05/2024 9:12 AM EDT [facility] Device ID [id number] 10/05/2024 9:12 AM EDT [facility] Specimen Type POC Capillary 10/05/2024 9:12 AM EDT [facility] Blood Capillary blood specimen / Unknown 10/05/2024 9:09 AM EDT 10/05/2024 9:12 AM EDT us Leda Zeng MD LAB POIN T OF CARE TEST DOCKED DEVICE UNSOLICITED RESULTS Final Result Performing Organization Address City/State/[facility] Co de Phone Number [facility] [address] [place] [address] * POCT glucose meter (10/05/2024 7:47 AM EDT) [facility] POCT Glucose 89 74 - 99 mg/dL 10/05/2024 7:52 AM EDT [facility] Comment:Accuracy of a [...] for testing. Comment 10/05/2024 7:52 AM EDT [facility] Exhaust Emissions Automotive Technician ID Ricco Piper 10/05/2024 7:52 AM EDT [facility] Device ID [id number] 10/05/2024 7:52 AM EDT [facility] Specimen Type POC Capillary 10/05/2024 7:52 AM EDT [facility] Blood Capillary blood specimen / Unknown 10/05/2024 7:47 AM EDT 10/05/2024 7:52 AM EDT us Leda Zeng MD LAB POIN T OF CARE TEST DOCKED DEVICE UNSOLICITED RESULTS Final Result Performing Organization Address [facility] Co de Phone Number [facility] [address] [place] [address] * (ABNORMAL) POCT glucose meter (10/04/2024 7:49 PM EDT) Pathologist [facility] POCT Glucose 152(H) 74 - 99 mg/dL [...] for testing. Comment 10/04/2024 7:54 PM EDT [facility] Exhaust Emissions Automotive Technician ID Grazyna Bhakta 025 7:54 PM EDT [facility] Device ID [id number] 10/04/2024 7:54 PM EDT [facility] Specimen Type POC Capillary 10/04/2024 7:54 PM EDT [facility] Blood Capillary blood specimen / Unknown 10/04/2024 7:49 PM EDT 10/04/2024 7:54 PM EDT Result [facility] Leda Zeng MD LAB POIN T OF CARE TEST DOCKED DEVICE UNSOLICITED RESULTS Final Result Performing Organization Address [facility] Co de Phone Number [facility] [address] [place] [address] * (ABNORMAL) POCT glucose meter (10/04/2024 4:56 PM EDT) Pathologist [facility] POCT Glucose 127(H) 74 - 99 mg/dL [...] 10/04/2024 4:58 PM EDT [facility] Exhaust Emissions Automotive Technician ID Precious Thomason 4:58 PM EDT [facility] Device ID [id number] 10/04/2024 4:58 PM EDT [facility] Specimen Type POC Capillary 10/04/2024 4:58 PM EDT [facility] Blood Capillary blood specimen / Unknown 10/04/2024 4:56 PM EDT 10/04/2024 4:58 PM EDT Leda Zeng MD LAB POIN T OF CARE TEST DOCKED DEVICE UNSOLICITED RESULTS Final Result Performing Organization Address [facility] Co de Phone Number [facility] [address] [place] [address] * (ABNORMAL) POCT glucose meter (10/04/2024 1:06 PM EDT) [facility] POCT Glucose 118(H) 74 - 99 mg/dL [...] for testing. Comment 10/04/2024 1:07 PM EDT [facility] Exhaust Emissions Automotive Technician ID Precious Thomason 1:07 PM EDT [facility] Device ID [id number] 10/04/2024 1:07 PM EDT [facility] Specimen Type POC Capillary 10/04/2024 1:07 PM EDT [facility] Blood Capillary blood specimen / Unknown 10/04/2024 1:06 PM EDT 10/04/2024 1:07 PM EDT Leda Zeng MD LAB POIN T OF CARE TEST DOCKED DEVICE UNSOLICITED RESULTS Final Result Performing Organization Address City/[facility]/ZIP Co de Phone Number [facility] [address] [place] [address] * (ABNORMAL) POCT glucose meter (10/04/2024 12:33 PM EDT) [facility] POCT Glucose 112(H) 74 - 99 mg/dL [...] for testing. Comment 10/04/2024 12:35 PM EDT [facility] Exhaust Emissions Automotive Technician ID Nora Barillas 10/05/19 12:35 PM EDT [facility] Device ID [id number] 10/04/2024 12:35 PM EDT [facility] Specimen Type POC Venous 10/04/2024 12:35 PM EDT [facility] Blood Venous blood specimen / Unknown 10/04/2024 12:33 PM EDT 10/04/2024 12:35 PM EDT Leda Zeng MD LAB POIN T OF CARE TEST DOCKED DEVICE UNSOLICITED RESULTS Final Result Performing Organization Address City/State/[facility] Co de Phone Number [facility] [address] [place] [address] * POCT glucose meter (10/04/2024 7:36 AM EDT) [facility] POCT Glucose 98 74 - 99 mg/dL [...] for testing. Comment 10/04/2024 7:37 AM EDT [facility] Exhaust Emissions Automotive Technician ID Precious Thomason 7:37 AM EDT [facility] Device ID [id number] 10/04/2024 7:37 AM EDT [facility] Specimen Type POC Capillary 10/04/2024 7:37 AM EDT [facility] Blood Capillary blood specimen / Unknown 10/04/2024 7:36 AM EDT 10/04/2024 7:37 AM EDT Leda Zeng MD LAB POIN T OF CARE TEST DOCKED DEVICE UNSOLICITED RESULTS Final Result [facility] [address] [place] [address] * POCT glucose meter (10/04/2024 7:31 AM EDT) POCT Glucose 98 74 - 99 mg/dL 10/04/2024 7:33 AM EDT [facility] Comment:Accuracy of [...] Comment 10/04/2024 7:33 AM EDT [facility] Exhaust Emissions Automotive Technician ID Precious Thomason 7:33 AM EDT [facility] Device ID [id number] 10/04/2024 7:33 AM EDT [facility] Specimen Type POC Capillary 10/04/2024 7:33 AM EDT [facility] Blood Capillary blood specimen / Unknown 10/04/2024 7:31 AM EDT 10/04/2024 7:33 AM EDT Leda Zeng MD LAB POIN T OF CARE TEST DOCKED DEVICE UNSOLICITED RESULTS Final Result [facility] [address] [place] [address] * (ABNORMAL) POCT glucose meter (10/04/2024 6:42 [...] Comment 10/04/2024 6:46 AM EDT [facility] Exhaust Emissions Automotive Technician ID Princess Elsa 025 6:46 AM EDT [facility] Device ID [id number] 10/04/2024 6:46 AM EDT [facility] Specimen Type POC Capillary 10/04/2024 6:46 AM EDT [facility] Blood Capillary blood specimen / Unknown 10/04/2024 6:42 AM EDT 10/04/2024 6:46 AM EDT us Leda Zeng MD LAB POIN T OF CARE TEST DOCKED DEVICE UNSOLICITED RESULTS Final Result Performing Organization Address City/[facility]/ZIP Co de Phone Number [facility] [address] [place] [address] * (ABNORMAL) Magnesium, Plasma (10/04/2024 4:20 AM EDT) Magnesium, Plasma 1.7(L) 1.9 - 2.4 mg/dL 10/04/2024 5:08 AM EDT [facility] Blood Venous blood specimen / Unknown Venipuncture / Unknown 10/04/2024 4:20 AM EDT 10/04/2024 4:25 AM EDT us Leda Zeng MD LAB BLOOD ORDERA BLES Final Result [facility] [address] [place] [address] * (ABNORMAL) Renal Function Panel, Plasma (10/04/2024 4:20 AM EDT) Glucose, Plasma 84 74 - 99 mg/dL 10/04/2024 5:08 AM EDT [facility] BUN, Plasma 31(H) 8 - 23 mg/dL 10/04/2024 5:08 AM EDT [facility] Creatinine, Plasma 6.91(H) 0.70 - 1.20 mg/dL 10/04/2024 5:08 AM EDT [facility] BUN/Creatinine Ratio 4 10/04/2024 5:08 AM EDT [facility] Sodium, Plasma 128(L) 136 - 145 mmol/L 10/04/2024 5:08 AM EDT [facility] Potassium, Plasma 3.8 3.6 - 4.9 mmol/L 10/04/2024 5:08 AM EDT [facility] Chloride, Plasma 94(L) 97 - 107 mmol/L 10/04/2024 5:08 AM EDT [facility] CO2, Plasma 24 22 - 29 mmol/L 10/04/2024 5:08 AM EDT [facility] Anion Gap 10 6 - 16 mmol/L 10/04/2024 5:08 AM EDT [facility] Total Calcium, Plasma 7.3(L) 8.9 - 10.2 mg/dL 10/04/2024 5:08 AM EDT [facility] Phosphorus, Plasma 3.5 2.5 - 4.5 mg/dL 10/04/2024 5:08 AM EDT [facility] Albumin, Plasma 3.2(L) 3.5 - 5.2 g/dL 10/04/2024 5:08 AM EDT [facility] eGFRcr 8.2 mL/min/1.7 3m*2 10/04/2024 5:08 AM EDT [facility] Comment:Reported eGFRcr in m L/min/1.73m2 is based the CKD-EPI 2020 equation that does not use a race coefficient. Blood Venous blood specimen / Unknown Venipuncture / Unknown 10/04/2024 4:20 AM EDT 10/04/2024 4:25 AM EDT us Leda Zeng MD LAB BLOOD ORDERA BLES Final Result [facility] [address] [place] [address] * (ABNORMAL) POCT glucose meter (10/03/2024 7:54 PM EDT) POCT Glucose 135(H) 74 - 99 mg/dL [...] 10/03/2024 8:00 PM EDT [facility] Exhaust Emissions Automotive Technician ID Princess Elsa 025 8:00 PM EDT [facility] Device ID [id number] 10/03/2024 8:00 PM EDT [facility] Specimen Type POC Capillary 10/03/2024 8:00 PM EDT [facility] Blood Capillary blood specimen / Unknown 10/03/2024 7:54 PM EDT 10/03/2024 8:00 PM EDT Leda Zeng MD LAB POIN T OF CARE TEST DOCKED DEVICE UNSOLICITED RESULTS Final Result [facility] [address] [place] [address] * (ABNORMAL) POCT glucose meter (10/03/2024 4:07 PM EDT) [facility] POCT Glucose 116(H) 74 - 99 mg/dL [...] 10/03/2024 4:09 PM EDT [facility] Exhaust Emissions Automotive Technician ID Precious Thomason 4:09 PM EDT [facility] Device ID [id number] 10/03/2024 4:09 PM EDT [facility] Specimen Type POC Capillary 10/03/2024 4:09 PM EDT [facility] Blood Capillary blood specimen / Unknown 10/03/2024 4:07 PM EDT 10/03/2024 4:09 PM EDT Leda Zeng MD LAB POIN T OF CARE TEST DOCKED DEVICE UNSOLICITED RESULTS Final Result Performing Organization Address [facility] de Phone Number [facility] [address] [place] [address] * (ABNORMAL) POCT glucose meter (10/03/2024 12:29 PM EDT) Pathologist [facility] POCT Glucose 124(H) 74 - 99 mg/dL [...] for testing. Comment 10/03/2024 12:30 PM EDT [facility] Exhaust Emissions Automotive Technician ID Precious Thomason 12:30 PM EDT [facility] Device ID [id number] 10/03/2024 12:30 PM EDT [facility] Specimen Type POC Capillary 10/03/2024 12:30 PM EDT [facility] Blood Capillary blood specimen / Unknown 10/03/2024 12:29 PM EDT 10/03/2024 12:30 PM EDT Leda Zeng MD LAB POIN T OF CARE TEST DOCKED DEVICE UNSOLICITED RESULTS Final Result Performing Organization Address [facility] de Phone Number [facility] [address] [place] [address] * (ABNORMAL) POCT glucose meter (10/03/2024 8:12 AM EDT) Pathologist [facility] POCT Glucose 110(H) 74 - 99 mg/dL 10/03/2024 8:14 AM EDT [facility] Comment:Accuracy of [...] Comment 10/03/2024 8:14 AM EDT [facility] Exhaust Emissions Automotive Technician ID Precious Thomason 8:14 AM EDT [facility] Device ID [id number] 10/03/2024 8:14 AM EDT [facility] Specimen Type POC Capillary 10/03/2024 8:14 AM EDT [facility] Blood Capillary blood specimen / Unknown 10/03/2024 8:12 AM EDT 10/03/2024 8:14 AM EDT us Leda Zeng MD LAB POIN T OF CARE TEST DOCKED DEVICE UNSOLICITED RESULTS Final Result Performing Organization Address City/[facility] Co de Phone Number [facility] [address] [place] [address] * (ABNORMAL) Magnesium, Plasma (10/03/2024 3:21 AM EDT) Magnesium, Plasma 1.8(L) 1.9 - 2.4 mg/dL 10/03/2024 4:29 AM EDT [facility] Blood Venous blood specimen / Unknown Venipuncture / Unknown 10/03/2024 3:21 AM EDT 10/03/2024 4:00 AM EDT us Leda Zeng MD LAB BLOOD ORDERA BLES Final Result Performing Organization Address City/[facility] Co de Phone Number [facility] [address] [place] [address] * (ABNORMAL) Renal Function Panel, Plasma (10/03/2024 3:21 AM EDT) Glucose, Plasma 119(H) 74 - 99 mg/dL 10/03/2024 4:29 AM EDT [facility] BUN, Plasma 24(H) 8 - 23 mg/dL 10/03/2024 4:29 AM EDT [facility] Creatinine, Plasma 5.69(H) 0.70 - 1.20 mg/dL 10/03/2024 4:29 AM EDT [facility] BUN/Creatinine Ratio 4 10/03/2024 4:29 AM EDT [facility] Sodium, Plasma 131(L) 136 - 145 mmol/L 10/03/2024 4:29 AM EDT [facility] Potassium, Plasma 3.9 3.6 - 4.9 mmol/L 10/03/2024 4:29 AM EDT [facility] Chloride, Plasma 96(L) 97 - 107 mmol/L 10/03/2024 4:29 AM EDT [facility] CO2, Plasma 26 22 - 29 mmol/L 10/03/2024 4:29 AM EDT [facility] Anion Gap 9 6 - 16 mmol/L 10/03/2024 4:29 AM EDT [facility] Total Calcium, Plasma 7.2(L) 8.9 - 10.2 mg/dL 10/03/2024 4:29 AM EDT [facility] Phosphorus, Plasma 3.0 2.5 - 4.5 mg/dL 10/03/2024 4:29 AM EDT [facility] Albumin, Plasma 3.2(L) 3.5 - 5.2 g/dL 10/03/2024 4:29 AM EDT [facility] eGFRcr 10.3 mL/min/1.7 3m*2 10/03/2024 4:29 AM EDT [facility] Comment:Reported eGFRcr in m L/min/1.73m2 is based the CKD-EPI 2020 equation that does not use a race coefficient. Blood Venous blood specimen / Unknown Venipuncture / Unknown 10/03/2024 3:21 AM EDT 10/03/2024 4:00 AM EDT Leda Zeng MD LAB BLOOD ORDERA BLES Final Result [facility] [address] [place] [address] * (ABNORMAL) POCT glucose meter (10/02/2024 9:06 PM EDT) [facility] POCT Glucose 143(H) 74 - 99 mg/dL 10/02/2024 9:08 PM EDT [facility] Comment:Accuracy of a [...] Comment 10/02/2024 9:08 PM EDT [facility] Exhaust Emissions Automotive Technician ID Ashia Daniels 10/03/19 9:08 PM EDT [facility] Device ID [id number] 10/02/2024 9:08 PM EDT [facility] Specimen Type POC Capillary 10/02/2024 9:08 PM EDT [facility] Blood Capillary blood specimen / Unknown 10/02/2024 9:06 PM EDT 10/02/2024 9:08 PM EDT us Leda Zeng MD LAB POIN T OF CARE TEST DOCKED DEVICE UNSOLICITED RESULTS Final Result [facility] [address] [place] [address] * (ABNORMAL) POCT glucose meter (10/02/2024 4:43 PM EDT) [facility] POCT Glucose 172(H) 74 - 99 mg/dL 10/02/2024 4:45 PM EDT [facility] Comment:Accuracy of a [...] for testing. Comment 10/02/2024 4:45 PM EDT [facility] Exhaust Emissions Automotive Technician ID Viridiana Pichardo 4:45 PM EDT [facility] Device ID [id number] 10/02/2024 4:45 PM EDT [facility] Specimen Type POC Capillary 10/02/2024 4:45 PM EDT [facility] Blood Capillary blood specimen / Unknown 10/02/2024 4:43 PM EDT 10/02/2024 4:45 PM EDT us Leda Zeng MD LAB POIN T OF CARE TEST DOCKED DEVICE UNSOLICITED RESULTS Final Result Performing Organization Address City/[facility] Co de Phone Number [facility] [address] [place] [address] * (ABNORMAL) POCT glucose meter (10/02/2024 11:55 AM EDT) Pathologist [facility] POCT Glucose 108(H) 74 - 99 mg/dL 10/02/2024 11:56 AM EDT [facility] Comment:Accuracy of a [...] for testing. Comment 10/02/2024 11:56 AM EDT [facility] Exhaust Emissions Automotive Technician ID Viridiana Pichardo 11:56 AM EDT [facility] Device ID [id number] 10/02/2024 11:56 AM EDT [facility] Specimen Type POC Capillary 10/02/2024 11:56 AM EDT [facility] Blood Capillary blood specimen / Unknown 10/02/2024 11:55 AM EDT 10/02/2024 11:56 AM EDT Leda Zeng MD LAB POIN T OF CARE TEST DOCKED DEVICE UNSOLICITED RESULTS Final Result Performing Organization Address City/[facility] Co de Phone Number [facility] [address] [place] [address] * PTH, intact (10/02/2024 9:58 AM EDT) Pathologist [facility] PTH Intact Total 9 9 - 77 pg/mL 10/02/2024 2:50 PM EDT [facility] Blood Venous blood specimen / Unknown Venipuncture / Unknown 10/02/2024 9:58 AM EDT 10/02/2024 11:19 AM EDT Narrative [facility] - 10/02/2024 2:50 PM EDT Assay performed by immunoassay at the [facility]. Performed on [employer] chemiluminescent immunoassay, tractable to the World Health Organization's first international standard for PTH from the [facility], Code 79/500. Results obtained from different test methods or kits cannot be used interchangeably. Leda Zeng MD LAB BLOOD ORDERA BLES Final Result Performing Organization Address [facility]/ZIP Co de Phone Number [facility] [address] [place] [address] * Hepatitis C Virus (HCV) Quantitative PCR (10/02/2024 7:51 AM EDT) [facility] Hepatitis C Virus (HCV) Quantitative Interpretation Not Detected Not Detected. 10/04/2024 2:37 PM EDT [facility] Blood Venous blood specimen / Unknown Venipuncture / Unknown 10/02/2024 7:51 AM EDT 10/02/2024 8:36 AM EDT Narrative [facility] - 10/04/2024 2:37 PM EDT [...] FDA approved for clinical use. Daphne Landry SUPERINTENDENT DISTRIBUTION, DNP LAB BLOOD ORDERABLES Selene l Result Performing Organization Address City/[facility]/ZIP Co de Phone Number [facility] [address] [place] [address] * (ABNORMAL) Hepatitis panel, acute (10/02/2024 7:51 AM EDT) [facility] Hepatitis B Surf Antigen Negative Negative 10/02/2024 3:10 PM EDT [facility] Hepatitis C Antibody Positive(A) Negative 10/02/2024 3:10 PM EDT [facility] Comment:This specimen is jamey ng sent for confirmation by RT-PCR. Hepatitis A Antibody IgM Negative Negative 10/02/2024 3:10 PM EDT [facility] Hepatitis B Core Antibody IgM Negative Negative 10/02/2024 3:10 PM EDT [facility] Blood Venous blood specimen / Unknown Venipuncture / Unknown 10/02/2024 7:51 AM EDT 10/02/2024 8:36 AM EDT us Daphne Landry SUPERINTENDENT DISTRIBUTION, DNP LAB BLOOD ORDERABLES Selene l Result Performing Organization Address City/[facility]/ZIP Co de Phone Number [facility] [address] [place] [address] * (ABNORMAL) Hepatitis B Surface Antibody, Quantitative (10/02/2024 7:51 AM EDT) Pathologist [facility] Hepatitis B Surface Antibody, Quantitative 62.12(H) NonReacti ve: <8, Grayzone: 8 - <12, Reactive: >= 12 mIU/mL 10/02/2024 12:27 PM EDT [facility] Comment: Reactive. Individual is considered immune to HBV infection. Blood Venous blood specimen / Unknown Venipuncture / Unknown 10/02/2024 7:51 AM EDT 10/02/2024 8:35 AM EDT us Daphne Landry SUPERINTENDENT DISTRIBUTION, DNP LAB BLOOD ORDERABLES Selene l Result Performing Organization Address [facility] Co de Phone Number [facility] [address] [place] [address] * Vitamin D 25 Hydroxy (10/02/2024 5:36 AM EDT) Vitamin D 25 Hydroxy 33.5 20.0 - 80.0 ng/mL 10/02/2024 9:56 AM EDT [facility] Blood Venous blood specimen / Unknown Venipuncture / Unknown 10/02/2024 5:36 AM EDT 10/02/2024 5:42 AM EDT Narrative [facility] - 10/02/2024 9:56 AM EDT Testing performed on [employer], standardized against NIST SRM 2972. When testing [...] ng/mL Possible toxicity: >100 ng/mL Lala Valdes SUPERINTENDENT DISTRIBUTION LAB BLOOD ORDERABLES Final Re sult Performing Organization Address [facility] Co de Phone Number [facility] [address] [place] [address] * Magnesium, Plasma (10/02/2024 5:36 AM EDT) Magnesium, Plasma 2.0 1.9 - 2.4 mg/dL 10/02/2024 6:06 AM EDT [facility] Blood Venous blood specimen / Unknown Venipuncture / Unknown 10/02/2024 5:36 AM EDT 10/02/2024 5:42 AM EDT Lala Valdes SUPERINTENDENT DISTRIBUTION LAB BLOOD ORDERABLES Final Re sult Performing Organization Address [facility] Phone Number [facility] [address] [place] [address] * (ABNORMAL) Ferritin, Serum (10/02/2024 5:36 AM EDT) Ferritin, Serum 1,701(H) 20 - 400 ng/mL 10/02/2024 8:36 AM EDT [facility] Blood Venous blood specimen / Unknown Venipuncture / Unknown 10/02/2024 5:36 AM EDT 10/02/2024 5:42 AM EDT Lala Zambrano Lucio SUPERINTENDENT DISTRIBUTION LAB BLOOD ORDERABLES Final Re sult Performing Organization Address [facility] Co de Phone Number [facility] [address] [place] [address] * (ABNORMAL) Renal Function Panel, Plasma (10/02/2024 5:36 AM EDT) Glucose, Plasma 95 74 - 99 mg/dL 10/02/2024 6:06 AM EDT [facility] BUN, Plasma 37(H) 8 - 23 mg/dL 10/02/2024 6:06 AM EDT [facility] Creatinine, Plasma 8.81(H) 0.70 - 1.20 mg/dL 10/02/2024 6:06 AM EDT [facility] BUN/Creatinine Ratio 4 10/02/2024 6:06 AM EDT [facility] Sodium, Plasma 132(L) 136 - 145 mmol/L 10/02/2024 6:06 AM EDT [facility] Potassium, Plasma 3.8 3.6 - 4.9 mmol/L 10/02/2024 6:06 AM EDT [facility] Chloride, Plasma 94(L) 97 - 107 mmol/L 10/02/2024 6:06 AM EDT [facility] CO2, Plasma 26 22 - 29 mmol/L 10/02/2024 6:06 AM EDT [facility] Anion Gap 12 6 - 16 mmol/L 10/02/2024 6:06 AM EDT [facility] Total Calcium, Plasma 7.4(L) 8.9 - 10.2 mg/dL 10/02/2024 6:06 AM EDT [facility] Phosphorus, Plasma 3.9 2.5 - 4.5 mg/dL 10/02/2024 6:06 AM EDT [facility] Albumin, Plasma 3.3(L) 3.5 - 5.2 g/dL 10/02/2024 6:06 AM EDT [facility] eGFRcr 6.1 mL/min/1.7 3m*2 10/02/2024 6:06 AM EDT [facility] Comment:Reported eGFRcr in m L/min/1.73m2 is based the CKD-EPI 2020 equation that does not use a race coefficient. Blood Venous blood specimen / Unknown Venipuncture / Unknown 10/02/2024 5:36 AM EDT 10/02/2024 5:42 AM EDT us Lala Valdes SUPERINTENDENT DISTRIBUTION LAB BLOOD ORDERABLES Final Re sult [facility] [address] [place] [address] * (ABNORMAL) CBC and Differential (10/02/2024 5:36 AM EDT) WBC Count 7.44 3.70 - 10.30 10*3/uL LAB HEMATOLOGY METHOD 10/02/2024 5:44 AM EDT [facility] RBC Count 3.30(L) 4.60 - 6.10 10*6/uL LAB HEMATOLOGY METHOD 10/02/2024 5:44 AM EDT [facility] HGB 10.4(L) 13.7 - 17.5 g/dL LAB HEMATOLOGY METHOD 10/02/2024 5:44 AM EDT [facility] HCT 29.8(L) 40.0 - 51.0 % LAB HEMATOLOGY METHOD 10/02/2024 5:44 AM EDT [facility] Platelet Count 119(L) 155 - 369 10*3/uL LAB HEMATOLOGY METHOD 10/02/2024 5:44 AM EDT [facility] MCV 90 79 - 98 fL LAB HEMATOLOGY METHOD 10/02/2024 5:44 AM EDT [facility] MCH 31.5 26.0 - 32.0 pg LAB HEMATOLOGY METHOD 10/02/2024 5:44 AM EDT [facility] MCHC 34.9 30.7 - 35.5 g/dL LAB HEMATOLOGY METHOD 10/02/2024 5:44 AM EDT [facility] RDW 12.5 11.5 - 14.5 % LAB HEMATOLOGY METHOD 10/02/2024 5:44 AM EDT [facility] MPV 9.5 8.8 - 12.5 fL LAB HEMATOLOGY METHOD 10/02/2024 5:44 AM EDT [facility] nRBC 0.0 <=0.0 per 100 WBCs LAB HEMATOLOGY METHOD 10/02/2024 5:44 AM EDT [facility] Differential Type Automated LAB HEMATOLOGY METHOD 10/02/2024 5:44 AM EDT [facility] Neutrophils % 59 % LAB [...] METHOD 10/02/2024 5:44 AM EDT [facility] Immature Granulocytes % 1 % LAB HEMATOLOGY METHOD 10/02/2024 5:44 AM EDT [facility] Neutrophils Absolute 4.44 1.60 - 6.10 10*3/uL LAB HEMATOLOGY METHOD 10/02/2024 5:44 AM EDT [facility] Lymphocytes Absolute 2.10 1.20 - 3.90 10*3/uL LAB HEMATOLOGY METHOD 10/02/2024 5:44 AM EDT [facility] Monocytes Absolute 0.53 0.30 - 0.90 10*3/uL LAB HEMATOLOGY METHOD 10/02/2024 5:44 AM EDT [facility] Eosinophils Absolute 0.26 0.00 - 0.50 10*3/uL LAB HEMATOLOGY METHOD 10/02/2024 5:44 AM EDT [facility] Basophils Absolute 0.06 0.00 - 0.10 10*3/uL LAB HEMATOLOGY METHOD 10/02/2024 5:44 AM EDT [facility] Immature Granulocytes Absolute 0.05 0.00 - 0.06 10*3/uL LAB HEMATOLOGY METHOD 10/02/2024 5:44 AM EDT [facility] Blood Venous blood specimen / Unknown Venipuncture / Unknown 10/02/2024 5:36 AM EDT 10/02/2024 5:42 AM EDT Narrative [facility] - 10/02/2024 5:44 AM EDT Therapeutic decision making should be based on absolute values, rather than percentages. Lala Valdes APRN LAB BLOOD ORDERABLES Final Re sult [facility] [address] [place] [address] * Multi Drug Resistance Test (10/01/2024 9:04 PM EDT) Culture No growth at day 1 10/03/2024 5:35 AM EDT [facility] Swab (Nares and Sydni Rectal) Non-blood Collection / Unknown 10/01/2024 9:04 PM EDT 10/01/2024 9:46 PM EDT Narrative [facility] - 10/03/2024 5:35 AM EDT This test was developed and its performance characteristics determined by the [facility]. Although the media is FDA-approved, it is not FDA-approved for all specimen types submitted. The FDA has determined that such clearance or approval is not necessary. This test is used for surveillance purposes. It should not be regarded as investigational or for research. The [facility] is certified under the Clinical Laboratory Improvement Amendments of 1988 (CLIA-88) as qualified to perform high complexity clinical laboratory testing. us Lala Valdes APRN LAB MICROBIOLOGY - GENERAL OR DERABLES Final Result Performing Organization Address City/[facility]/ZIP Co de Phone Number [facility] [address] [place] [address] * (ABNORMAL) POCT glucose meter (10/01/2024 8:38 PM EDT) POCT Glucose 151(H) 74 - 99 mg/dL [...] 10/01/2024 8:39 PM EDT [facility] Exhaust Emissions Automotive Technician ID Ashia Daniels 10/02/19 8:39 PM EDT [facility] Device ID [id number] 10/01/2024 8:39 PM EDT [facility] Specimen Type POC Capillary 10/01/2024 8:39 PM EDT [facility] Blood Capillary blood specimen / Unknown 10/01/2024 8:38 PM EDT 10/01/2024 8:39 PM EDT us Leda Zeng MD LAB POIN T OF CARE TEST DOCKED DEVICE UNSOLICITED RESULTS Final Result Performing Organization Address City/[facility]/ZIP Co de Phone Number [facility] [address] [place] [address] * (ABNORMAL) POCT glucose meter (10/01/2024 4:02 PM EDT) [facility] POCT Glucose 127(H) 74 - 99 mg/dL [...] Comment 10/01/2024 4:04 PM EDT [facility] Exhaust Emissions Automotive Technician ID Precious Thomason 4:04 PM EDT [facility] Device ID [id number] 10/01/2024 4:04 PM EDT [facility] Specimen Type POC Capillary 10/01/2024 4:04 PM EDT [facility] Blood Capillary blood specimen / Unknown 10/01/2024 4:02 PM EDT 10/01/2024 4:04 PM EDT Tana Wooten MD LAB POINT OF CA RE TEST DOCKED DEVICE UNSOLICITED RESULTS Final Result [facility] [address] [place] [address] * (ABNORMAL) POCT glucose meter (10/01/2024 12:21 PM EDT) [facility] POCT Glucose 142(H) 74 - 99 mg/dL [...] 10/01/2024 12:22 PM EDT [facility] Exhaust Emissions Automotive Technician ID Precious Thomason 12:22 PM EDT [facility] Device ID [id number] 10/01/2024 12:22 PM EDT [facility] Specimen Type POC Capillary 10/01/2024 12:22 PM EDT [facility] Blood Capillary blood specimen / Unknown 10/01/2024 12:21 PM EDT 10/01/2024 12:22 PM EDT us Tana Wooten MD LAB POINT OF CA RE TEST DOCKED DEVICE UNSOLICITED RESULTS Final Result Performing Organization Address City/[facility]/ZIP Co de Phone Number [facility] [address] [place] [address] * (ABNORMAL) POCT glucose meter (10/01/2024 8:29 AM EDT) POCT Glucose 100(H) 74 - [...] for testing. Comment 10/01/2024 8:30 AM EDT [facility] Exhaust Emissions Automotive Technician ID Precious Thomason 8:30 AM EDT [facility] Device ID [id number] 10/01/2024 8:30 AM EDT [facility] Specimen Type POC Capillary 10/01/2024 8:30 AM EDT [facility] Blood Capillary blood specimen / Unknown 10/01/2024 8:29 AM EDT 10/01/2024 8:30 AM EDT us Tana Wooten MD LAB POINT OF CA RE TEST DOCKED DEVICE UNSOLICITED RESULTS Final Result Performing Organization Address City/[facility]/ZIP Co de Phone Number [facility] [address] [place] [address] * (ABNORMAL) POCT glucose meter (09/30/2024 8:49 PM EDT) POCT Glucose 138(H) 74 - 99 mg/dL [...] Comment 09/30/2024 8:50 PM EDT [facility] Exhaust Emissions Automotive Technician ID Ashia Daniels 10/01/19 25 8:50 PM EDT [facility] Device ID [id number] 09/30/2024 8:50 PM EDT [facility] Specimen Type POC Capillary 09/30/2024 8:50 PM EDT [facility] Blood Capillary blood specimen / Unknown 09/30/2024 8:49 PM EDT 09/30/2024 8:50 PM EDT Fajardorogelio Wooten MD LAB POINT OF CA RE TEST DOCKED DEVICE UNSOLICITED RESULTS Final Result [facility] [address] [place] [address] * (ABNORMAL) Hemoglobin A1c (09/30/2024 4:50 PM EDT) Hemoglobin A1c 6.3(H) <5.7 % 10/01/2024 12:06 PM EDT [facility] Blood Venous blood specimen / Unknown Venipuncture / Unknown 09/30/2024 4:50 PM EDT 09/30/2024 4:54 PM EDT Narrative [facility] - 10/01/2024 12:06 PM EDT HA1C Interpretive Data: Diagnosis of Diabetes: Diabetic > or = 6.5% Pre-diabetic 5.7 to 6.4% Non-diabetic < or = 5.6% Glycemic Targets for Type I and Type II Diabetics: Non- Adults <7.0% Adults <6.0% Children and Adolescents <7.5% Source: [place] [employer]. Standards of medical care in diabetes,2017. Diabetes Care.2017:40 (suppl 1):S1-S135. Lala Valdes [employer] LAB BLOOD ORDERABLES Final Re sult Performing Organization Address City/[facility]/ZIP Co de Phone Number [facility] [address] [place] [address] * (ABNORMAL) Iron & Total Iron Binding Capacity, Plasma (Includes Transferrin) (09/30/2024 4:50 PM EDT) [facility] Iron, Plasma 66 50 - 170 ug/dL 09/30/2024 11:58 PM EDT [facility] Transferrin, Plasma 117(L) 200 - 360 mg/dL 09/30/2024 11:58 PM EDT [facility] Total Iron Binding Capacity, Plasma 146(L) 240 - 450 ug/mL 09/30/2024 11:58 PM EDT [facility] Transferrin Saturation 45 14 - 50 % 09/30/2024 11:58 PM EDT [facility] Blood Venous blood specimen / Unknown Venipuncture / Unknown 09/30/2024 4:50 PM EDT 09/30/2024 4:53 PM EDT Lala Valdes SUPERINTENDENT [employer] LAB BLOOD ORDERABLES Final Re sult Performing Organization Address [facility] Co de Phone Number [facility] [address] [place] [address] * TSH Reflex FT4 (09/30/2024 4:50 PM EDT) [facility] Thyroid Stimulating Hormone, Plasma 0.91 0.40 - 4.20 uIU/mL 09/30/2024 9:27 PM EDT [facility] Blood Venous blood specimen / Unknown Venipuncture / Unknown 09/30/2024 4:50 PM EDT 09/30/2024 4:53 PM EDT Lala Valdes [employer]PERINTENDENT [employer] LAB BLOOD ORDERABLES Final Re sult Performing Organization Address City/[facility]/ZIP Co de Phone Number [facility] [address] [place] [address] * (ABNORMAL) C-Reactive protein (09/30/2024 4:50 PM EDT) [facility] CRP, Plasma 16.1(H) <=8.0 mg/L 09/30/2024 5:14 PM EDT [facility] Blood Venous blood specimen / Unknown Venipuncture / Unknown 09/30/2024 4:50 PM EDT 09/30/2024 4:53 PM EDT Narrative [facility] - 09/30/2024 5:14 PM EDT This CRP test is appropriate for assessment of infection, systemic inflammation and/or tissue injury. To assess cardiovascular disease risk order high sensitivity CRP (CRPH). us Lesvia Adrian MD LAB BLOOD ORDERABLES Final Re sult Performing Organization Address [facility] de Phone Number [facility] [address] [place] [address] * Phosphorus (09/30/2024 4:50 PM EDT) [facility] Phosphorus, Plasma 3.3 2.5 - 4.5 mg/dL 09/30/2024 5:14 PM EDT [facility] Blood Venous blood specimen / Unknown Venipuncture / Unknown 09/30/2024 4:50 PM EDT 09/30/2024 4:53 PM EDT Result Dimple Adrian MD LAB BLOOD ORDERABLES Final Re sult Performing Organization Address [facility] de Phone Number [facility] [address] [place] [address] * (ABNORMAL) Magnesium (09/30/2024 4:50 PM EDT) [facility] Magnesium, Plasma 1.7(L) 1.9 - 2.4 mg/dL 09/30/2024 5:14 PM EDT [facility] Blood Venous blood specimen / Unknown Venipuncture / Unknown 09/30/2024 4:50 PM EDT 09/30/2024 4:53 PM EDT us Lesvia Adrian MD LAB BLOOD ORDERABLES Final Re sult Performing Organization Address [facility] de Phone Number [facility] [address] [place] [address] * (ABNORMAL) CMP (09/30/2024 4:50 PM EDT) Glucose, Plasma 185(H) 74 - 99 mg/dL 09/30/2024 5:14 PM EDT [facility] BUN, Plasma 29(H) 8 - 23 mg/dL 09/30/2024 5:14 PM EDT [facility] Creatinine, Plasma 7.58(H) 0.70 - 1.20 mg/dL 09/30/2024 5:14 PM EDT [facility] BUN/Creatinine Ratio 4 09/30/2024 5:14 PM EDT [facility] Sodium, Plasma 131(L) 136 - 145 mmol/L 09/30/2024 5:14 PM EDT [facility] Potassium, Plasma 3.0(L) 3.6 - 4.9 mmol/L 09/30/2024 5:14 PM EDT [facility] Chloride, Plasma 90(L) 97 - 107 mmol/L 09/30/2024 5:14 PM EDT [facility] CO2, Plasma 28 22 - 29 mmol/L 09/30/2024 5:14 PM EDT [facility] Anion Gap 13 6 - 16 mmol/L 09/30/2024 5:14 PM EDT [facility] Total Calcium, Plasma 7.6(L) 8.9 - 10.2 mg/dL 09/30/2024 5:14 PM EDT [facility] Total Protein 7.2 6.3 - 7.9 g/dL 09/30/2024 5:14 PM EDT [facility] Albumin, Plasma 3.7 3.5 - 5.2 g/dL 09/30/2024 5:14 PM EDT [facility] AST, Plasma 13 10 - 50 U/L 09/30/2024 5:14 PM EDT [facility] ALT, Plasma 6(L) 10 - 50 U/L 09/30/2024 5:14 PM EDT [facility] Alkaline Phosphatase, Plasma 42 40 - 115 U/L 09/30/2024 5:14 PM EDT [facility] Total Bilirubin, Plasma 0.6 0.2 - 1.1 mg/dL 09/30/2024 5:14 PM EDT [facility] eGFRcr 7.3 mL/min/1.7 3m*2 09/30/2024 5:14 PM EDT [facility] Comment:Reported eGFRcr in m L/min/1.73m2 is based the CKD-EPI 2020 equation that does not use a race coefficient. Blood Venous blood specimen / Unknown Venipuncture / Unknown 09/30/2024 4:50 PM EDT 09/30/2024 4:53 PM EDT us Lesvia Adrian MD LAB BLOOD ORDERABLES Final Re sult [facility] [address] [place] [address] * (ABNORMAL) CBC w/diff (09/30/2024 4:50 PM EDT) WBC Count 8.92 3.70 - 10.30 10*3/uL LAB HEMATOLOGY METHOD 09/30/2024 4:56 PM EDT [facility] RBC Count 3.29(L) 4.60 - 6.10 10*6/uL LAB HEMATOLOGY METHOD 09/30/2024 4:56 PM EDT [facility] HGB 10.4(L) 13.7 - 17.5 g/dL LAB HEMATOLOGY METHOD 09/30/2024 4:56 PM EDT [facility] HCT 29.8(L) 40.0 - 51.0 % LAB HEMATOLOGY METHOD 09/30/2024 4:56 PM EDT [facility] Platelet Count 121(L) 155 - 369 10*3/uL LAB HEMATOLOGY METHOD 09/30/2024 4:56 PM EDT [facility] MCV 91 79 - 98 fL LAB HEMATOLOGY METHOD 09/30/2024 4:56 PM EDT [facility] MCH 31.6 26.0 - 32.0 pg LAB HEMATOLOGY METHOD 09/30/2024 4:56 PM EDT [facility] MCHC 34.9 30.7 - 35.5 g/dL LAB HEMATOLOGY METHOD 09/30/2024 4:56 PM EDT [facility] RDW 12.5 11.5 - 14.5 % LAB HEMATOLOGY METHOD 09/30/2024 4:56 PM EDT [facility] MPV 9.6 8.8 - 12.5 fL LAB HEMATOLOGY METHOD 09/30/2024 4:56 PM EDT [facility] nRBC 0.0 <=0.0 per 100 WBCs LAB HEMATOLOGY METHOD 09/30/2024 4:56 PM EDT [facility] Differential Type Automated LAB HEMATOLOGY METHOD 09/30/2024 4:56 PM EDT [facility] Neutrophils % 61 % LAB HEMATOLOGY METHOD 09/30/2024 4:56 PM EDT [facility] Lymphocytes % 27 % LAB HEMATOLOGY METHOD 09/30/2024 4:56 PM EDT [facility] Monocytes % 8 % LAB HEMATOLOGY METHOD 09/30/2024 4:56 PM EDT [facility] Eosinophils % 3 % LAB HEMATOLOGY METHOD 09/30/2024 4:56 PM EDT [facility] Basophils % 1 % LAB HEMATOLOGY METHOD 09/30/2024 4:56 PM EDT [facility] Immature Granulocytes % 0 % LAB HEMATOLOGY METHOD 09/30/2024 4:56 PM EDT [facility] Neutrophils Absolute 5.48 1.60 - 6.10 10*3/uL LAB HEMATOLOGY METHOD 09/30/2024 4:56 PM EDT [facility] Lymphocytes Absolute 2.36 1.20 - 3.90 10*3/uL LAB HEMATOLOGY METHOD 09/30/2024 4:56 PM EDT [facility] Monocytes Absolute 0.69 0.30 - 0.90 10*3/uL LAB HEMATOLOGY METHOD 09/30/2024 4:56 PM EDT [facility] Eosinophils Absolute 0.28 0.00 - 0.50 10*3/uL LAB HEMATOLOGY METHOD 09/30/2024 4:56 PM EDT [facility] Basophils Absolute 0.07 0.00 - 0.10 10*3/uL LAB HEMATOLOGY METHOD 09/30/2024 4:56 PM EDT [facility] Immature Granulocytes Absolute 0.04 0.00 - 0.06 10*3/uL LAB HEMATOLOGY METHOD 09/30/2024 4:56 PM EDT [facility] Blood Venous blood specimen / Unknown Venipuncture / Unknown 09/30/2024 4:50 PM EDT 09/30/2024 4:54 PM EDT Narrative [facility]ARE [facility] - 09/30/2024 4:56 PM EDT Therapeutic decision making should be based on absolute values, rather than percentages. us Lesvia Adrian MD LAB BLOOD ORDERABLES Final Re sult [facility] [address] [place] [address] * EKG now - STAT (adult) (09/30/2024 4:09 PM EDT) EKG DIAGNOSIS CLASS Abnormal MUSE ECG Ventricular Rate 70 BPM MUSE ECG Atrial Rate 70 BPM MUSE ECG ID Interval 154 ms MUSE ECG QRSD Interval 106 ms MUSE ECG QT Interval 430 ms MUSE ECG QTC Interval 464 ms MUSE ECG P [place] 69 degrees MUSE ECG R [place] -23 degrees MUSE ECG T Wave [place] 5 degrees MUSE ECG Diagnosis Normal sinus rhythm MUSE ECG Diagnosis Nonspecific T wave abnormality MUSE ECG Diagnosis Abnormal ECG MUSE ECG Diagnosis MUSE ECG Diagnosis Confirmed by Sb Cole ([id number]) on 09/30/2024 5:32:21 PM MUSE ECG 09/30/2024 4:09 PM EDT 09/30/2024 5:32 PM EDT Lesvia Adrian MD ECG ORDERABLES Final Result MUSE ECG documented in this encounter Visit Diagnoses Diagnosis Declining functional status- Primary ESRD (end stage renal disease) (CMS/HCC) End stage renal disease Noncompliance by refusing service ESRD (end stage renal disease) on dialysis (CMS/HCC) End stage renal disease Declining functional status [...] 30 mg, Oral, Once, 1 dose, On Mon10/06/24 at 1745, Routine Given 10/06/2024 5:38 PM [...] 4 mg, Oral, Once, 1 dose, On Mon10/19/24 at 2130, STAT Given 10/19/2024 8:49 PM [...] on Mon10/15/24 at 2126, Until Mon10/19/24 at 204, Routine, constipation Given 10/16/2024 8:30 PM EDT 17.2 mg Given 10/15/2024 9:47 PM EDT 17.2 mg senna (Senokot) tablet 17.2 mg 17.2 mg, Oral, Nightly, First dose (after last modification) on 10/19/24 at 2145, Until Discontinued, Routine Given 10/20/2024 [...] on Mon10/01/24 at 0900, Until Discontinued, Routine 08 (Given - Provider: Marilee Zamora RN) 0920 (Given - Provider: April Merida, TRISTIN) 1409 (Given - Provider: Jane Dill) atorvastatin (Lipitor) tablet 40 mg 40 mg, Oral, Nightly, First dose on Mon09/30/24 at 2230, Until Discontinued, Routine 2013 (Given - Provider: Sara Garnett, TRISTIN) 2052 (Given - Provider: Deena Lott) cadexomer iodine (Iodosorb) 0.9 % gel Topical, Daily, First dose on Mon10/01/24 at 1500, Until Discontinued, Routine 08 (Given - Provider: Marilee Zamora, TRISTIN) 1259 (Given - Provider: April Merida, TRISTIN - Comment: patient refused at due time) 0900 (Canceled Entry - Provider: Automatic Discharge Provider - Comment: Automatically canceled at discontinue of medication order) carvedilol (Coreg) tablet 25 mg 25 mg, Oral, 2 times daily, First dose (after last modification) on Mon10/07/24 at 2100, Until Discontinued, Routine 08 (Given - Provider: Marilee Zamora RN)2013 (Given - Provider: Sara Garnett RN) 09 (Given - Provider: April Merida, RN)2052 (Given - Provider: Deena Lott) 0900 (Canceled Entry - Provider: Automatic Discharge Provider - Comment: Automatically canceled at discontinue of medication order) clopidogrel (Plavix) tablet 75 mg 75 mg, Oral, Daily, First dose on Mon10/01/24 at 0900, Until Discontinued, Routine 0820 (Given - Provider: Marilee Zamora, TRISTIN) 09 (Given - Provider: April Merida RN) 1409 (Given - Provider: Jane Dill) divalproex sprinkle (Depakote Sprinkle) DR capsule 250 mg 250 mg, Oral, 2 times daily, First dose on Mon09/30/24 at 2230, Until Discontinued, Routine 08 (Given - Provider: Marilee Zamora, TRISTIN)2013 (Given - Provider: Sara Garnett RN) 09 (Given - Provider: April Merida RN)2052 (Given - Provider: Deena Lott) 1410 (Given - Provider: Jane Dill) heparin (porcine) injection 5,000 Units 5,000 Units, Subcutaneous, Every 8 hours scheduled, First dose on Mon09/30/24 at 1945, Until Discontinued, Routine 05 (Given - Provider: Nelli Mayberry RN)1323 (Given - Provider: Marilee Zamora, TRISTIN)2014 (Given - Provider: Sara Garnett, TRISTIN) 0541 (Not Given - Provider: Sara Garnett RN - Reason: Patient/family refused)1306 (Given - Provider: [...] 0920 (Given - Provider: April Merida, TRISTIN) 0900 (Canceled Entry - Provider: Automatic Discharge Provider - Comment: Automatically canceled at discontinue of medication order) ondansetron ODT (Zofran-ODT) disintegrating tablet 4 mg (COMPLETED) 4 mg, Oral, Once, 1 dose, On Mon10/19/24 at 2130, STAT 2048 (Given - Provider: Sara Garnett, TRISTIN) polyethylene glycol (Miralax) packet 17 g 17 g, Oral, 2 times daily, First dose (after last modification) on Mon10/16/24 at 0900, Until Discontinued, Routine 0820 (Given - Provider: Marilee Zamora RN)2013 (Given - Provider: Sara Garnett, TRISTIN) 09 (Given - Provider: April Merida RN)2052 (Given - Provider: Deena Lott) 09 (Canceled Entry - Provider: Automatic Discharge Provider - Comment: Automatically canceled at discontinue of medication order) senna (Senokot) tablet 17.2 mg 17.2 mg, Oral, Nightly, First dose (after last modification) on Mon10/19/24 at 2145, Until Discontinued, Routine 2055 (Given - Provider: Sara Garnett, TRISTIN) 2052 (Given - Provider: Deena Lott) sertraline (Zoloft) tablet 75 mg 75 mg, Oral, Daily, First dose on Mon10/01/24 at 0900, Until Discontinued, Routine 0821 (Given - Provider: Marilee Zamora RN) 0920 (Given - Provider: April Merida, TRISTIN) 141 (Given - Provider: Jane Dill - Comment: pt just returned from dialysis) sodium chloride 0.9 % flush 10 mL(Linked Group 1) 10 mL, Intravenous, Every 12 hours, First dose on Mon09/30/24 at 1945, Until Discontinued, Routine 0756 (Not Given - Provider: Marilee Zamora RN - Reason: Loss of IV access)191 (Not Given - Provider: Sara Garnett RN - Reason: Order parameters not met) 0725 [...] RN) 2052 (Given - Provider: Deena Lott) PRN Medication Order 10/19/2024 10/20/2024 10/21/2024 acetaminophen (Tylenol) tablet 650 mg 650 mg, Oral, Every 6 hours PRN, Starting on Mon09/30/24 at 2129, Until Mon10/21/24 at 171, Routine, mild pain bisacodyl (Dulcolax) EC tablet 10 mg 10 mg, Oral, Daily PRN, Starting on Mon10/01/24 at 0613, Until Mon10/21/24 at 171, Routine, constipation dextrose 10 % (D10W) bolus [...] peripheral IV (CANCELED) Once, On Mon09/30/24 at 1938, For 1 occurrence And Saline lock IV (CANCELED) Once, On Mon09/30/24 at 1938, For 1 occurrence And sodium chloride 0.9 [...] on Mon09/30/24 at 1940, Until Mon10/21/24 at 1710, Routine, low blood sugar, per Hypoglycemia Prevention [...] on Mon09/30/24 at 1940, Until Mon10/21/24 at 1710, Routine, low blood sugar per Hypoglycemia Prevention and Treatment protocol documented in this encounter Additional Health Concerns Infection Onset Date Last Indicated Resolved Time 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
--- OUTSIDE RECORDS SUMMARY | 2024-11-07 12:20 | XMS_ITS | Encounter Summary ---
Author Organization Healthcare Address [address] [place] [address] Care Team Providers Care Aeronautical Inspector Name Role Phone Leonard Botello MD Primary Care Provider [phone] Reason for Referral * Imaging (Routine) - Closed Specialty Diagnoses / Procedures Referred By Kathleen herrera Referred To Contact Radiology Diagnoses ESRD (end stage renal disease) (CMS/HCC) Unspecified complication of cardiac and vascular prosthetic device, implant and graft, subsequent encounter Procedures IR Angiogram ArterioVenous Shunt eFrnanda Singleton MD [address] [address] Phone: tel: fax: Referral ID Status Reason Start Date Expiration Date Visits Re quested Visits Authorized [id number] Closed 11/04/2024 05/06/2026 1 1 Reason for Visit * Imaging (Routine) - Closed Specialty Diagnoses / Procedures Referred By Kathleen herrera Referred To Contact Radiology Diagnoses ESRD (end stage renal disease) (CMS/HCC) Unspecified complication of cardiac and vascular prosthetic device, implant and graft, subsequent encounter Procedures IR Angiogram ArterioVenous Shunt Fernanda Singleton MD [address] [address] Phone: tel: fax: Referral ID Status Reason Start Date Expiration Date Visits Re quested Visits Authorized [id number] Closed 11/04/2024 05/06/2026 1 1 Encounter Details Date Type Department Care Team (Latest Contact Info) Description 11/07/2024 12:20 PM EDT - 11/07/2024 11:59 PM EDT Hospital Encounter [facility] Interventional Radiology [address] [place] [address] Arturo Ramos, TRISTIN MICU 9-T1 AND T2 ESRD (end stage renal disease) ([facility]); Unspecified complication of cardiac and vascular prosthetic device, implant and graft, subsequent encounter Discharge Disposition: Home or Self Care Social History Tobacco Use Types Packs/Day Years [...] in the past 12 m [facility], were you homeless or living in a [...] drink first t hossein in the morning ([employer]) to steady your nerves or to get [...] Sign Reading Time Taken Comments Blood Pressure 103/76 11/07/2024 3:30 PM EDT Pulse 80 11/07/2024 3:30 PM EDT Temperature 37.3 C (99.1 F) 11/07/2024 1:31 PM EDT Respiratory Rate 13 11/07/2024 3:30 PM EDT Oxygen Saturation 96% 11/07/2024 3:30 PM EDT Inhaled Oxygen Concentration - - Weight 76.6 kg (168 lb 14 oz) 11/07/2024 1:31 PM EDT Height 177.8 cm (5' 10 ) 11/07/2024 1:31 PM EDT Body Mass Index 24.23 11/07/2024 1:31 PM EDT documented in this encounter Functional Status [...] Mario Kim A documented in this encounter Medications at Time [...] as of this encounter Miscellaneous Notes * Arturo Guerrero RN - 11/07/2024 3:37 PM EDT Images from the original note were not included. 229 Conscious Sedation FAQ What is conscious sedation and why would I need it? Conscious sedation uses pain medicines and sedatives to reduce the pain and anxiety of a procedure.Under conscious sedation, you are usually able to talk and answer questions during the procedure. But, you will probably not have any memory of it. It is often used for outpatient procedures because it often lets you to go home the same day. What can I expect during conscious sedation? When you arrive at the holding area, several things will happen. ? We will start an IV for medicines. You will be connected to a heart, blood pressure, and oxygen saturation monitor. ? We will take your vital signs and a brief history, then ask you about medicines you take. ? We will take you to have your procedure. You will receive the conscious sedation medicines through your IV. You will continue to be monitored during the entire procedure. ? As mentioned above, you will likely able to talk and answer questions. But you may not have any memory of the procedure. What can I expect after the procedure? After the procedure, we will take you to a recovery area. Your heart rate and blood pressure will be checked often. As the sedation wears off, you may feel some pain or discomfort. We will ask you torate your pain on a scale between 0 and 10. You will receive pain medicine as needed. You may have nausea and vomiting, but these can be helped with medicine. You may need oxygen while you are wakingup. What kind of recovery can I expect after conscious sedation? You may feel drowsy after conscious sedation. You may also have muscle aches, sore throat, occasional dizziness and headaches. Nausea can occur. Vomiting is less common. These side effects usually goaway quickly in the hours after conscious sedation. Please plan to take it easy for a few days until you feel back to normal. When can I go home? Most patients are ready to go home in about 1 to 3 hours. You may need to drink fluids and use the bathroom before you can leave. What can I do when I go home and how long will it take for the sedation to wear off? It usually takes about 24 hours for the sedation to wear off. ? Do not drive or run dangerous machines for 24 hours after receiving sedation medicines ? Do not use alcohol or non-prescription drugs for 24 hours after receiving sedation medicines ? Do not make important decisions for 24 hours after receiving sedation medicines You will receive specific instructions about your procedure and telephone numbers where your doctorcan be reached for any questions or concerns. * [facility] Arturo Ramos [facility] - 11/07/2024 3:37 PM EDT Images from the original note were not included. 230 Fistulogram What is a fistulogram? A fistula is a surgical connection between an artery and a vein. A hemodialysis fistula is made to provide enough blood flow at the right pressure to make hemodialysis work. The blood vessels connected to the fistula face many challenges, such as higher rates of blood flowand pressure. This can cause scar tissue to form, making the fistula or blood vessels narrower. This can lead to poor blood flows or blood clot. A fistulogram can show exactly where the artery or vein is blocked. A fistulogram is an IV-dye enhanced X-ray (angiogram) of your fistula. It can can detect the problems mentioned above, including how where and how severe the blockage is and what can be done to fix it. Early detection and treatment of any problem can improve how well your fistula works, help it last longer, and limit future complications Why do I need a fistulogram? Your health care provider has determined that you are having symptoms and signs that suggest a malfunction of your fistula. For example: ? Prolonged bleeding, pain, high pressures, poor flow rates, pulling of clots, or recirculation. ? If you cannot feel a thrill (buzzing) in your fistula, the fistula may be completely blocked. What happens before the fistulogram? ? A nurse and an interventional radiologist/bilingual branch manager (a doctor specially trained to perform this procedure) will talk to you about the procedure in detail. They will answer your questions and askyou to sign a consent form. ? Your family and friends will be asked to go to our waiting area. ? You will be asked to put on a hospital gown and remove anything metal,such as jewelry or false teeth or dentures. If possible, you should leave your valuables and jewelry at home. ? We will start an IV so we can give you fluids, pain medicine and sedation medications. ? Any lab work or blood tests that might be needed will be done before the procedure. What happens during the fistulogram? A fistulogram usually takes 1-2 hours to complete. You will be taken into the procedure room where you will lay on an X-ray table. Your blood pressure, heart rate, and oxygen level will be watched closely. A nurse will give you medicines to help you relax and reduce your discomfort. A liquid soap will be used to wash the site where the fistula will be accessed to reduce the chance of an infection. A numbing medicine will be injected to numb the skin. It will sting and burn for a few seconds before the area goes numb. But you will still feel some pressure. You may be asked to hold still or hold your breath for a few seconds during the procedure. That is one of the reasons you need to be awake during the fistulogram. Once the X-ray dye is injected in the fistula, you may feel warm and may have a metal taste in yourmouth. These feelings usually last 10-15 seconds. Several X- ray pictures are taken to complete the test. If there is an area of narrowing or clot present in the blood vessel, it will be treated with balloon inflation inside the fistula, a metal stent, clot dissolving medicines, or a clot breaking device. This procedure may also be done at this time. A report will be sent to your doctor. All of these treatments can be done through a tiny hole created in the fistula access. The equipment is removed at the end. Some equipment such as a stent may be left inside of you and becomes a partof your body. The goal is to get the best flow and function for your fistula so that your life-saving hemodialysis is effective. What happens after the fistulogram? When the procedure is done, you will be taken to the recovery room. You will have to stay in bed for 30 minutes to 2 hours. Pressure may be held on the site where the catheter was inserted for 10-30 minutes to make sure that there is no bleeding. Or you may receive stitches at the access site which will be covered with a dressing. These stitches need to be removed in 24-72 hours, usually at your dialysis session. After your bedrest time is complete and you meet certain discharge criteria, you may go home. These criteria include: ? Your vital signs must be stable. ? Your fistula sites must be clean and dry with no sign of bleeding. ? If a catheter was inserted for hemodialysis, you must be able to go home without bleeding or swelling. What do I do after I go home? Feel your fistula daily with your finger tips. A good thrill (buzzing, vibration, or a ?purring cat? sensation) in your fistula means good blood flow. A strong pulse in your fistula may be a sign of narrowing in the fistula. If there is no pulse or thrill, it means that the fistula might have lost blood flow. If you have either of these last 2 problems, tell your dialysis nurse or your doctor at the next dialysis session. Your fistula is your life-line. Become a partner in keeping it working very well for your health. 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 The patient tolerated the procedure well without incident or complication and is in stable condition. * Pre-Procedure Note - Fernanda Singleton MD - 11/07/2024 1:15 PM EDT Images from the original note were not included. INTERVENTIONAL RADIOLOGY SEDATION PRE-PROCEDURAL ASSESSMENT AND PLAN OF CARE Indication for procedure: Diagnoses of ESRD (end stage renal disease) (CMS/[facility]) and Unspecified complication of cardiac and vascular prosthetic device, implant and graft, subsequent encounter were pertinent to this visit. Planned Procedure: RUE Loop AVG Graftogram with possible intervention. Relevant past medical history: ESRD Previous problems with surgery, anesthesia or sedation: No Previous family history or problems with anesthesia or sedation: No History of tobacco use, alcohol use, or substance abuse: Tobacco Use History[1], Social History Substance and Sexual Activity Alcohol Use Not Currently , Social History Substance and Sexual Activity Drug Use Never Comment: Drug use: No drug use Height and Weight: Visit Vitals BP (!) 101/26 (BP Location: Right leg, Patient Position: Lying) Pulse 82 Temp 37.3 ??C (99.1 ??F) (Temporal) SpO2 95% Allergies to medication: Patient has no known allergies. Current medications: Current Medications[2] Relevant Labs: Lab Results Component Value Date CREATININE 6.91 (H) 10/07/2024 EGFR 8.2 10/07/2024 INR 1.0 12/07/2022 Planned Sedation/Anesthesia: Moderate Airway assessment: normal Mallampati Score: III (soft and hard palate and base of uvula visible) ASA: ASA 3 - Patient with moderate systemic disease with functional limitations Directed physical examination: Vitals: 11/07/24 1331 BP: (!) 101/26 Pulse: 82 Resp: 15 Temp: 37.3 ??C (99.1 ??F) SpO2: 95% GENERAL: Awake, alert, NAD HEENT: NCAT, Hearing Difficulty. NECK: No appreciable JVD CARDIAC: Regular rate, regular rhythm, normal S1/S2, no m/r/g, 2+ radial pulses bilaterally PULM: CTAB without increased work of breathing ABD: Soft, NT, ND EXT: Warm and well perfused, no LE edema SKIN: No rashes or lesions NEURO: Unable to assess Benefits, risks and alternatives of procedure and planned sedation have been discussed with the patient and/or their asset protection representative. All questions answered and they agree to proceed. [1] Social History Tobacco Use Smoking Status Never Smokeless Tobacco Never [2] Current Outpatient Medications Medication Sig Dispense Refill ASPIRIN 81 MG chewable tablet Chew 1 [...] Do not crush, chew, or split. senna (Senokot) 8.6 MG tablet Take 2 tablets by mouth nightly. sertraline (Zoloft) 25 MG tablet Take 1 tablet by mouth daily. Take with 50mg tablet for total daily dose of 75mg. sertraline (Zoloft) 50 MG tablet Take 1 tablet by mouth daily. Take with 25mg tablet for total daily dose of 75mg. traZODone (Desyrel) 100 MG tablet Take 1 tablet (100 mg) by mouth every night. 30 tablet 2 Current Facility-Administered Medications Medication Dose Route Frequency Provider Last Rate Last Admin sodium chloride 0.9 % flush 10 mL 10 mL Intravenous q8h PRN Fernanda Singleton MD And sodium chloride 0.9 % flush 10 mL 10 mL Intravenous PRN Fernanda Singleton MD sodium chloride 0.9 % infusion 10 mL/hr Intravenous Continuous Fernanda Singleton MD Facility-Administered Medications Ordered in Other Encounters Medication Dose Route Frequency Provider Last Rate Last Admin lidocaine-EPINEPHrine (PF) (Xylocaine W/EPI) 1 %-1:372407 injection - Pyxis Override Pull lidocaine-EPINEPHrine (PF) (Xylocaine W/EPI) 1 %-1:916238 injection - Carisaxis Override Pull * H&P - Fernanda Singleton MD - 11/07/2024 1:15 PM EDT Images from the original note were not included. Subjective Chief complaint ESRD on HD via RUE Proximal Loop AVG, C/O Prolonged Bleeding. History Of Present Illness Aakash Dooley is a 64 y.o. male presenting with ESRD on HD via RUE Proximal Loop AVG c/o prolonged bleeding. Medical/Surgical/Social/Family History I have reviewed and updated the patient history. Travel History Relevant International Travel History: Travel Screening Question Response Have you been in contact with someone who was sick? No / Unsure Do you have any of the following new or worsening symptoms? None of these Have you traveled internationally or domestically in the last month? No Travel History Travel since 10/07/24 No documented travel since 10/07/24 Allergies Patient has no known allergies. Medications Current Medications[1] Objective Review of Systems All other systems reviewed and are negative. Physical Exam GEN: IN NAD RESP: Normal Effort CV: Normal Rate EXT: RUE Loop AVG, Thrill + Last Recorded Vitals Blood pressure (!) 101/26, pulse 82, temperature 37.3 ??C (99.1 ??F), temperature source Temporal, resp. rate 15, SpO2 95%. Results Review I have reviewed the latest lab and imaging results. Assessment & Plan ESRD (end stage renal disease) ([facility]) Unspecified complication of cardiac and vascular prosthetic device, implant and graft, subsequent encounter ESRD on HD via RUE AVG - Prolonged bleeding suspect outflow stenosis. Will proceed with Graftogram with possible intervention. Patient's legal guardian unable to reach x 3. Will continue to reach. Fernanda Singleton MD Medically Ready for Discharge:Anticipated Today [1] Current Outpatient Medications Medication Sig Dispense Refill ASPIRIN 81 MG chewable tablet Chew 1 [...] Do not crush, chew, or split. senna (Senokot) 8.6 MG tablet Take 2 tablets by mouth nightly. sertraline (Zoloft) 25 MG tablet Take 1 tablet by mouth daily. Take with 50mg tablet for total daily dose of 75mg. sertraline (Zoloft) 50 MG tablet Take 1 tablet by mouth daily. Take with 25mg tablet for total daily dose of 75mg. traZODone (Desyrel) 100 MG tablet Take 1 tablet (100 mg) by mouth every night. 30 tablet 2 Current Facility-Administered Medications Medication Dose Route Frequency Provider Last Rate Last Admin sodium chloride 0.9 % flush 10 mL 10 mL Intravenous q8h PRN Fernanda Singleton MD And sodium chloride 0.9 % flush 10 mL 10 mL Intravenous PRN Fernanda Singleton MD sodium chloride 0.9 % infusion 10 mL/hr Intravenous Continuous Fernanda Singleton MD Facility-Administered Medications Ordered in Other Encounters Medication Dose Route Frequency Provider Last Rate Last Admin lidocaine-EPINEPHrine (PF) (Xylocaine W/EPI) 1 %-1:937729 injection - Pyxis Override Pull lidocaine-EPINEPHrine (PF) (Xylocaine W/EPI) 1 %-1:692943 injection - Pyxis Override Pull documented in this encounter Plan of Treatment Not on file documented as of this encounter Procedures Procedure Name Priority Date/Time Associated Diagnosis Comments IR ANGIOGRAM ARTERIOVENOUS SHUNT Routine 11/07/2024 3:02 PM EDT ESRD (end stage renal disease) ([facility]) Unspecified complication of cardiac and vascular prosthetic device, implant and graft, subsequent encounter documented in this encounter Results * IR Angiogram ArterioVenous Shunt (11/07/2024 3:02 PM EDT) Anatomical Region Laterality Modality X-Ray Angiograph y Impressions 11/07/2024 4:26 PM EDT 1-Successful central venous angioplasty as described above. 2-Successful peripheral venous angioplasty as described above. CRITICAL RESULT: No. COMMUNICATION: Per this written report. Drafted by Fernanda Singleton MD on 11/07/2024 4:18 PM Final report signed by Fernanda Singleton MD on 11/07/2024 4:26 PM Narrative 11/07/2024 4:26 PM EDT CLINICAL HISTORY: 64 years Male with ESRD on HD via RUE Ax-Ax Loop AVG, C/O Prolonged Bleeding. TECHNIQUE: Curatorial Specialist: Fernanda Singleton M.D Fluoroscopy time: 3.4 min, Air Kerma 8 mGy. Medications: 1% Local lidocaine was administered subcutaneously. Conscious sedation with IV Midazolam 1mg and IV Fentanyl 50 mcg were provided. Continuous physiologic monitoring provided by a qualified healthcare professional. Duration of Conscious Sedation: Time out: 14:31 close out: 14:50. Procedure: Right Ax-Ax Loop AVG Graftogram POBA and DCB ETL SOFTWARE ENGINEER of Severe Right Subclavian Vein Stenosis POBA of Moderate Venous Anastomosis and Cannulation Zone Stenoses. The patient was identified. After the risks and benefits of the procedure were discussed with the patient, an informed written consent was obtained. The patient was then brought back to interventional suite and placed supine on the table. The right arm was placed in semi abducted position, was prepped, and draped in the usual sterile fashion. A time out was performed. The existing graft was identified and the patient was prepped and draped in the normal sterile fashion. Physical examination of the fistula demonstrated a superficial graft with pulsatile examination. Following administration of local anesthesia with 1% lidocaine the AV graft was accessed using a 21 gauge micropuncture needle in the direction of the venous outflow. The needle was exchanged over a guide wire for a 4 [place] micropuncture sheath. An angiogram was performed from the site of puncture to the superior vena cava. Digital subtraction angiography was performed of the graft from peripheral to central. This revealed Severe Right Subclavian Stenosis Moderate Venous Anastomosis Stenosis Moderate Cannulation Zone Stenosis The micropuncture sheath was exchanged for a 7 Mexican vascular sheath. Via the sheath, A stiff glide 0.035 180 cm wire was placed centrally through a 5 Mexican glide catheter. Angioplasty of the right subclavian vein was performed utilizing a 12 mm x 6 cm mustang angioplasty balloon with appropriate response. But due to the severity and location of the lesion, decision was made to use drug coated balloon. DCB Lutonix 12 mm x 40 mm was inflated across the lesion at 10 hay for 120 seconds. Subsequently, angioplasty of the venous anastomosis was performed with a 9 mm x 2 cm mustang angioplasty balloon with appropriate response. Then, the cannulation zone stenosis was angioplastied with 8 mm x 80 mm [place] angioplasty balloon with good response. Digital subtraction angiography demonstrated greatly improved flow from peripheral to central.The sheath was removed, and a purse-string suture was placed at the site of puncture. Complete hemostasis was accomplished with manual compression held to the site. The patient tolerated the procedure well, and there were no complications. Thrill is noted at the level of the venous limb at the end of the procedure. COMPARISON: None. FINDINGS: Digital subtraction venography demonstrated severe right subclavian stenosis, moderate venous anastomosis and cannulation zone stenoses. COMPLICATION: No immediate. Procedure Note Fernanda Singleton MD - 11/07/2024 CLINICAL HISTORY: 64 years Male with ESRD on HD via RUE Ax-Ax Loop AVG, C/O ProlongedBleeding. TECHNIQUE: Curatorial Specialist: Fernanda Singleton M.D Fluoroscopy time: 3.4 min, Air Kerma 8 mGy. Medications: 1% Local lidocaine was administered subcutaneously.Conscious sedation with IV Midazolam 1mg and IV Fentanyl 50 mcg wereprovided. Continuous physiologic monitoring provided by a qualifiedhealthcare professional. Duration of Conscious Sedation: Time out: 14:31 close out: 14:50. Procedure: Right Ax-Ax Loop AVG Graftogram POBA and DCB ETL SOFTWARE ENGINEER of Severe Right Subclavian Vein Stenosis POBA of Moderate Venous Anastomosis and Cannulation Zone Stenoses. The patient was identified. After the risks and benefits of the procedurewere discussed with the patient, an informed written consent was obtained.The patient was then brought back to interventional suite and placedsupine on the table. The right arm was placed in semi abducted position,was prepped, and draped in the usual sterile fashion. A time out wasperformed. The existing graft was identified and the patient was preppedand draped in the normal sterile fashion. Physical examination of thefistula demonstrated a superficial graft with pulsatile examination. Following administration of local anesthesia with 1% lidocaine the AVgraft was accessed using a 21 gauge micropuncture needle in the directionof the venous outflow. The needle was exchanged over a guide wire for a 4French micropuncture sheath. An angiogram was performed from the site ofpuncture to the superior vena cava. Digital subtraction angiography wasperformed of the graft from peripheral to central. This revealed Severe Right Subclavian Stenosis Moderate Venous Anastomosis Stenosis Moderate Cannulation Zone Stenosis The micropuncture sheath was exchanged for a 7 Mexican vascular sheath. Viathe sheath, A stiff glide 0.035 180 cm wire was placed centrally through a5 Mexican glide catheter. Angioplasty of the right subclavian vein wasperformed utilizing a 12 mm x 6 cm mustang angioplasty balloon withappropriate response. But due to the severity and location of the lesion,decision was made to use drug coated balloon. DCB Lutonix 12 mm x 40 mmwas inflated across the lesion at 10 hay for 120 seconds. Subsequently, angioplasty of the venous anastomosis was performed with a 9mm x 2 cm mustang angioplasty balloon with appropriate response. Then, thecannulation zone stenosis was angioplastied with 8 mm x 80 mm Mustangangioplasty balloon with good response. Digital subtraction angiography demonstrated greatly improved flow fromperipheral to central.The sheath was removed, and a purse-string suturewas placed at the site of puncture. Complete hemostasis was accomplishedwith manual compression held to the site. The patient tolerated theprocedure well, and there were no complications. Thrill is noted at thelevel of the venous limb at the end of the procedure. COMPARISON: None. FINDINGS: Digital subtraction venography demonstrated severe right subclavianstenosis, moderate venous anastomosis and cannulation zone stenoses. COMPLICATION: No immediate. IMPRESSION: 1-Successful central venous angioplasty as described above. 2-Successful peripheral venous angioplasty as described above. CRITICAL RESULT: No. COMMUNICATION: Per this written report. Drafted by Fernanda Singleton MD on 11/07/2024 4:18 PM Final report signed by Fernanda Singleton MD on 11/07/2024 4:26 PM Fernanda Singleton MD IMG IR PROCEDURES Final Result documented in this encounter Visit Diagnoses Diagnosis ESRD (end stage renal disease) ([facility]) End stage renal disease Unspecified complication of cardiac and vascular prosthetic device, implant and graft, subsequent encounter documented in this encounter Administered Medications Inactive Administered Medications - up to 3 most recent administrations Medication Order MAR Action Action Date Dose Rate Site fentaNYL (Sublimaze) injection Intravenous, As needed, Starting on Romi 11/07/24 at 1436, Until Romi 11/07/24 at 1436, Routine, Intraprocedure Given 11/07/2024 2:36 PM EDT 50 mcg iohexol (OMNIPaque) 300 MG/ML injection 100 mL 100 mL, Intravenous, Once in imaging, 1 dose, Starting on Romi 11/07/24 at 1502, Until Romi 11/07/24 at 1503, Routine, Imaging Protocol Orders Given 11/07/2024 3:03 PM EDT 50 mL lidocaine (Xylocaine) 1 % injection Intradermal, As needed, Starting on Romi 11/07/24 at 1434, Until Romi 11/07/24 at 1434, Routine, Intraprocedure Given 11/07/2024 2:34 PM EDT 5 mL Right Upper Arm midazolam (Versed) injection Intravenous, As needed, Starting on Romi 11/07/24 at 1436, Until Romi 11/07/24 at 1436, Routine, Intraprocedure Given 11/07/2024 2:36 PM EDT 1 mg documented in this encounter Additional Health Concerns Infection Onset Date Last Indicated Resolved Time MRSA 04/15/2022 12/07/2022 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
--- OUTSIDE RECORDS SUMMARY | 2024-11-20 22:28 | XMS_ITS | Clinical Summary ---
Author Organization [facility] Address [address] [place] [address] Phone Care Team Providers Care Icing Maker Name Role Phone Efren Black MD Unavailable [ ] Conditions or Problems Problem Name Problem Code Onset Date Status Entry Date Provider Comment Standard Description Annotate Acute renal failure 91653425 (SNOMED CT) 10/11 Active 10/11 Meghanfabi Lopez Acute kidney injury Acquired absence of right toe(s) Z89.421 (ICD-10-CM) 10/11 Active 10/11 Meghan Lopez Acquired absence of other right toe(s) Acute hepatitis C B17.10 (ICD-10-CM) 10/11 Active 10/11 Meghan Lopez Acute hepatitis C without hepatic coma MRSA infection 052415439 (SNOMED CT) 10/11 Active 10/11 Meghan Lopez Methicillin resistant Staphylococcus aureus infection ENTEROCOCCUS INFECTION 020063056 (SNOMED CT) 10/11 Active 10/11 Meghan Lopez Infection caused by Enterococcus Providencia infection B96.89 (ICD-10-CM) 10/11 Active 10/11 Meghan Lopez Other specified bacterial agents as the cause of diseases classified elsewhere Cellulitis, foot, right 007961905 (SNOMED CT) 10/11 Active 10/11 Meghanfabi Floreswell [...] ulcer Other obesity due to excess calories 619155308 (SNOMED CT) 10/11 Active 10/11 Anastacio Schaffer Simple obesity Medications Medication Instructions Start Date Stop Date Generic Name ND Provider NORCO 5-325 MG ORAL TABLET 2 tabs by mouth every 4 hours as needed HYDROCODONE-ACETA MINOPHEN 83817048447 Anastacio Schaffer MIRALAX ORAL PACKET 17 grams by mouth twice daily as needed POLYETHYLENE GLYCOL 3350 06669882307 Anastacio Schaffer LEVEMIR 100 UNIT/ML SUBCUTANEOUS SOLUTION 20 units subcutaneous twice daily INSULIN DETEMIR 00676095043 Anastacio Schaffer NOVOLOG 100 UNIT/ML SUBCUTANEOUS SOLUTION INSULIN ASPART 54855655316 Anastacio Schaffer GABAPENTIN 600 MG TABS by mouth twice daily GABAPENTIN 00477803103 Anastacio Schaffer ANTONIETTA-Q 2 ORAL CAPSULE by mouth daily PROBIOTIC PRODUCT 88521115844 Anastacio Schaffer FLOMAX 0.4 MG ORAL CAPSULE by mouth daily TAMSULOSIN HCL 60579798029 Anastacio Schaffer ACID CONTROL MAXIMUM STRENGTH 20 MG TABS by mouth daily FAMOTIDINE 21919318282 Anastacio Schaffer ERGOCALCIFEROL 1.25 MG (78431 UT) CAPS by mouth weekly ERGOCALCIFEROL 55408398007 Anastacio Schaffer DULCOLAX 10 MG SUPP twice daily BISACODYL 96522712763 Anastacio Schaffer CATAPRES 0.1 MG ORAL TABLET CLONIDINE HCL 49563874028 Anastacio Schaffer COREG 12.5 MG TABS by mouth twice daily CARVEDILOL 82130190766 Anastacio Schaffer ASPIR-LOW 81 MG ORAL TABLET DELAYED RELEASE by mouth daily ASPIRIN 16806034108 Anastacio Schaffer AMITRIPTYLINE HCL 50 MG TABS by mouth at bedtime AMITRIPTYLINE HCL 30021936036 Anastacio Schaffer Medications Administered No information available. [...]
--- OUTSIDE RECORDS SUMMARY | 2024-11-20 22:29 | XMS_ITS | Encounter Summary ---
Author Organization Healthcare Address [address] [place] [address] Care Team Providers Care Behavioral Consultant Name Role Phone Leonard Botello MD Primary Care Provider [phone] Encounter Details Date Type Department Care Team (Late st Contact Info) Description 10/02/2024 Patient Outreach [facility] [address] [place] [id number] Enoc Bustillo Social History Tobacco Use Types [...] were you homeless or living in a jail (including now)? 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-FLAG FOOTBALL COACH) to steady your nerves or to get [...] Author Yes 09/29/2021 3:17 PM EDT Mario iKmh A * Because of a physical, mental, or emotional condition, do you have serious difficulty doing errandsalone such as visiting the doctor? Answer Date of Assessment Author Yes 09/29/2021 3:17 PM EDT Mario Kimh A * Calculated C-SSRS Risk Score (Lifetime/Recent) Answer Date of Assessment Author No Risk Indicated 10/12/2024 8:00 PM EDT Jagruti Carri * Question Answer Date of Assessment Author 1. Wish to be (Past 1 Month) No 025 8:00 PM EDT Jagruti Carri 2. Non-Specific Active Suici taylor Thoughts (Past 1 Month) No 10/12/2024 8:00 PM EDT Jagruti Carri 3. Active Suicidal Ideation with any Methods (Not Plan) Without Intent to Act (Past 1 Month) No 10/12/2024 8:00 PM EDT Jagruti Carri 4. Active Suicidal Ideation with Some Intent to Act, Without Specific Plan (Past 1 Month) No 10/12/2024 8:00 PM EDT Jagruti Carri 5. Active Suicidal Ideation with Specific Plan and Intent (Past 1 Month) No 10/12/2024 8:00 PM EDT Jagruti Carri 6. Suicidal Behavior (Lifetime) No 8:00 PM EDT Jagruti Carri documented as of this encounter Mental Status [...] documented as of this encounter Care Teams Behavioral Consultant Relationship Specialty Start Date End Date Leonard Botello MD [address] [address] PCP - General Family Medicine 06/08/22 documented as of this encounter
--- OUTSIDE RECORDS SUMMARY | 2024-11-20 22:29 | XMS_ITS | Encounter Summary ---
Author Organization Healthcare Address [address] [place] [address] Care Team Providers Care Transfer Driver Name Role Phone Leonard Botello MD Primary Care Provider [phone] Encounter Details Date Type Department Care Team [...] place to sleep or slept in a penitentiary (including now)? No 04/17/2023 CAGE ASSESSMENT Answer [...] drink first t hossein in the morning (EYE-SECURITY COMPLIANCE SPECIALIST) to steady your nerves or to get rid of a hangover? 0 06/25/2023 CAGE Questionnaire Score 0 024 Utilities Answer Date Recorded In the past 12 months has th e [employer], gas, oil, or water company threatened to [...] documented as of this encounter Care Teams Transfer Driver Relationship Specialty Start Date End Date Leonard Botello MD [address] [facility] [address] [place] [address] PCP - General Family Medicine 06/08/22 documented as of this encounter
--- OUTSIDE RECORDS SUMMARY | 2024-11-20 22:29 | XMS_ITS ---
Author Organization [facility] Address [address] [place] [address] Care Team Providers Care Jewelry Technician Name Role Phone Leonard Botello MD Primary Care Provider LINK Program Status:Closed (Closed) Start date:10/01/2024 Enrollment date:10/01/2024 End date:10/01/2024 Close reason:Not Eligible Overview Patient identified for LINK program. Following chart review, patient determined to be ineligible based on program criteria. Continued Care and Services Coordination
--- OUTSIDE RECORDS SUMMARY | 2024-11-20 22:29 | XMS_ITS | Encounter Summary ---
Author Organization Healthcare Address [address] [place] [address] Care Team Providers Care Foundation Stage Teacher Name Role Phone Leonard Botello MD Primary Care Provider [phone] Minnie Penn RN Unavailable Unavailab le Reason for Visit * Reason Comments Link Encounter Details Date Type Department Care Team (Late st Contact Info) Description 10/01/2024 Patient Outreach [facility] [address] [facility] [address] [place] [address] Minnie Penn, RN CH-VASCULAR & [...] time in the past 12 m [facility], were you homeless or living in a correction (including now)? 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-STAFF ANESTHESIOLOGIST) to steady your nerves or to get [...] Author No Risk Indicated 10/01/2024 8:00 AM EDT Filiberto Ramesh RN * Question Answer Date of Assessment Author 1. Wish to be (Past 1 Month) No 10/01/2024 8:00 AM Filiberto Schwab RN 2. Non-Specific Active Suici taylor Thoughts (Past 1 Month) No 10/01/2024 8:00 AM GISSELT Dangelo Ramesh RN 6. Suicidal Behavior (Lifetime) No 8:00 AM GISSELT Filiberto Ramesh RN documented as of this encounter Mental Status * Because of a physical, mental, or emotional condition, do you have serious difficulty concentrating, remembering, or making decisions? (5 years old or older) Answer Entry Date Author Yes 09/29/2021 3:17 PM EDT Mario Kim documented in this encounter Miscellaneous Notes * Progress Notes - Minnie Penn RN - 10/01/2024 8:36 AM EDT Patient [...] documented as of this encounter Care Teams Foundation Stage Teacher Relationship Specialty Start Date End Date Leonard Botello MD [address] [address] PCP - General Family Medicine 06/08/22 Minnie Penn RN CH-VASCULAR & INTERVENTIONAL RADIOLOGY Registered Nurse 10/01/24 10/01/24 documented as of this encounter
--- OUTSIDE RECORDS SUMMARY | 2024-11-20 22:29 | XMS_ITS | Encounter Summary ---
Author Organization Healthcare Address [address] [place] [address] Care Team Providers Care Pediatrics Hospitalist Name Role Phone Leonard Botello MD Primary Care Provider [phone] Encounter Details Date Type Department Care Team [...] any time in the past 12 m [facility], were you homeless or living in [...] drink first t hossein in the morning (EYE-TUBE BLOWER) to steady your nerves or to get rid of a hangover? 0 06/25/2023 CAGE Questionnaire Score 0 024 Utilities Answer Date Recorded In the past 12 months has th e [employer], gas, oil, or water company threatened to [...] Risk 10/21/2024 8:29 AM Jose J Santillan RN * Question Answer Date of Assessment Author 1. Wish to be (Past 1 Month) Yes 025 8:29 AM Jane Santillan RN 2. Non-Specific Active Suici taylor Thoughts (Past 1 Month) No 10/21/2024 8:29 AM Jane Santillan RN 3. Active Suicidal Ideation with any Methods (Not Plan) Without Intent to Act (Past 1 Month) No 10/21/2024 8:29 AM Kayli Santillan RN 4. Active Suicidal Ideation with Some Intent to Act, Without Specific Plan (Past 1 Month) No 10/21/2024 8:29 AM Kayli Santillan RN 5. Active Suicidal Ideation with Specific Plan and Intent (Past 1 Month) No 10/21/2024 8:29 AM Jane Santillan RN 6. Suicidal Behavior (Lifetime) No 8:29 [...] documented as of this encounter Care Teams Pediatrics Hospitalist Relationship Specialty Start Date End Date Leonard Botello MD [address] [place] [address] [address] PCP - General Family Medicine 06/08/22 documented as of this encounter
--- OUTSIDE RECORDS SUMMARY | 2024-11-20 22:29 | XMS_ITS | Encounter Summary ---
Author Organization Healthcare Address [address] [place] [address] Care Team Providers Care Louver Door Assembler Name Role Phone Leonard Botello MD Primary Care Provider [phone] Encounter Details Date Type Department Care Team [...] any time in the past 12 m [facility], were you homeless or living in a [...] drink first t hossein in the morning (EYE-WAGE AND SALARY ADMINISTRATOR) to steady your nerves or to get rid of a hangover? 0 06/25/2023 CAGE Questionnaire Score 0 024 Utilities Answer Date Recorded In the past 12 months has th e [employer], gas, oil, or water company threatened to [...] 1 Month) No 10/07/2024 8:00 PM GISSELT Alvino Chau RN 3. Active Suicidal Ideation with any Methods (Not Plan) Without Intent to Act (Past 1 Month) No 10/07/2024 8:00 PM GISSELT Nano Chau RN 4. Active Suicidal Ideation with Some Intent to Act, Without Specific Plan (Past 1 Month) No 10/07/2024 8:00 PM GISSELT Nano Chau RN 5. Active Suicidal Ideation with Specific Plan and Intent (Past 1 Month) No 10/07/2024 8:00 PM GISSELT Nano Chau RN 6. Suicidal Behavior (Lifetime) No 8:00 PM GISSELT Nano Chau RN documented as of this [...] documented as of this encounter Care Teams Louver Door Assembler Relationship Specialty Start Date End Date Leonard Botello MD [address] [address] PCP - General Family Medicine 06/08/22 documented as of this encounter
--- OUTSIDE RECORDS SUMMARY | 2024-11-20 22:29 | XMS_ITS | Encounter Summary ---
Author Organization Healthcare Address [address] [place] [address] Care Team Providers Care Rn Oncology Name Role Phone Pcp, No Primary Care Provider UnavailRanjana Castellanos INSTRUCTOR BRIDGE Unavailable UnavailYola Bains Unavailable Unavailable Leonard Botello MD Primary Care Provider [phone] Yesenia Morrell INSTRUCTOR BRIDGE Unavailable Unavailable Goldie Alan INSTRUCTOR BRIDGE Unavailable UnavailGoldie Kong INSTRUCTOR BRIDGE Unavailable UnavailRanjana Castellanos INSTRUCTOR BRIDGE Unavailable UnavailMinnie Martinez RN Unavailable Unavailab le Encounter Details Date Type Department Care Team (Late st Contact Info) Description 04/06/2022 Lab Requisition [facility] [address] [place] [address] Ariel Lucas MD [address] [place] [address] End stage renal disease (CMS/HCC) [...] LAB HEMATOLOGY METHOD 04/06/2022 2:16 PM EST [facility] RBC Count 2.80(L) 4.60 - 6.10 10*6/uL LAB HEMATOLOGY METHOD 04/06/2022 2:16 PM EST [facility] HGB 8.1(L) 13.7 - 17.5 g/dL LAB HEMATOLOGY METHOD 04/06/2022 2:16 PM EST [facility] HCT 25.4(L) 40.0 - 51.0 % LAB HEMATOLOGY METHOD 04/06/2022 2:16 PM EST [facility] Platelet Count 154(L) 155 - 369 10*3/uL LAB HEMATOLOGY METHOD 04/06/2022 2:16 PM EST [facility] MCV 91 79 - 98 fL LAB HEMATOLOGY METHOD 04/06/2022 2:16 PM EST [facility] MCH 28.9 26.0 - 32.0 pg LAB HEMATOLOGY METHOD 04/06/2022 2:16 PM EST [facility] MCHC 31.9 30.7 - 35.5 g/dL LAB HEMATOLOGY METHOD 04/06/2022 2:16 PM EST [facility] RDW 14.1 11.5 - 14.5 % LAB HEMATOLOGY METHOD 04/06/2022 2:16 PM EST [facility] MPV 11.1 8.8 - 12.5 fL LAB HEMATOLOGY METHOD 04/06/2022 2:16 PM [facility] nRBC 0.0 <=0.0 per 100 WBCs LAB HEMATOLOGY METHOD 04/06/2022 2:16 PM [facility] Differential Type Automated LAB HEMATOLOGY METHOD 04/06/2022 2:16 PM [facility] Neutrophils % 66.0 % LAB HEMATOLOGY METHOD 04/06/2022 2:16 PM EST [facility] Lymphocytes % 23.0 % LAB HEMATOLOGY METHOD 04/06/2022 2:16 PM EST [facility] Monocytes % 5.0 % LAB HEMATOLOGY METHOD 04/06/2022 2:16 PM EST [facility] Eosinophils % 4.0 % LAB HEMATOLOGY METHOD 04/06/2022 2:16 PM EST [facility] Basophils % 1.0 % LAB HEMATOLOGY METHOD 04/06/2022 2:16 PM EST [facility] Immature Granulocytes % 1.0 % LAB HEMATOLOGY METHOD 04/06/2022 2:16 PM EST [facility] Neutrophils Absolute 4.31 1.60 - 6.10 10*3/uL LAB HEMATOLOGY METHOD 04/06/2022 2:16 PM EST [facility] Lymphocytes Absolute 1.49 1.20 - 3.90 10*3/uL LAB HEMATOLOGY METHOD 04/06/2022 2:16 PM EST [facility] Monocytes Absolute 0.33 0.30 - 0.90 10*3/uL LAB HEMATOLOGY METHOD 04/06/2022 2:16 PM EST [facility] Eosinophils Absolute 0.26 0.00 - 0.50 10*3/uL LAB HEMATOLOGY METHOD 04/06/2022 2:16 PM EST [facility] Basophils Absolute 0.03 0.00 - 0.10 10*3/uL LAB HEMATOLOGY METHOD 04/06/2022 2:16 PM EST [facility] Immature Granulocytes Absolute 0.03 0.00 - 0.06 10*3/uL LAB HEMATOLOGY METHOD 04/06/2022 2:16 PM EST [facility] Blood Venous blood specimen / Unknown 04/06/2022 1:35 PM EST 04/06/2022 2:05 PM EST Narrative [facility] - 04/06/2022 2:16 PM EST Therapeutic decision making should be based on absolute values, rather than percentages. 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 COVID-19 Rule-Out 04/14/2023 04/14/2023 04/14/2023 8:45 PM EST documented as of this encounter Care Teams Rn Oncology Relationship Specialty Start Date End Date Pcp, No [address] [place] [address] PCP - General Family Medicine 09/16/21 06/07/22 Leonard Botello MD [address] [place] [address] PCP - General Family Medicine 06/08/22 Ranjana Elias LPN VALUE-[employer]ED [place] [address] TCM Nurse 03/25/22 04/18/22 Yola Ruff [facility] [place] [address] Brim Ironer Hand Underground Production Foreperson 04/12/22 05/05/22 Yesenia Morrell LPN VALUE-BASED [place] [address] TCM Nurse 07/29/22 08/04/22 Goldie Alan LPN VALUE-BASED TRANSFORMATION PROGRAM TCM Nurse Internal Medicine 08/10/22 08/11/22 Goldie Alan LPN VALUE-BASED TRANSFORMATION PROGRAM [facility] Nurse Internal Medicine 08/17/22 09/16/22 Ranjana Elias LPN VALUE-[employer]ED [place] [address] TCM Nurse 01/13/23 02/08/23 Minnie Penn, RN CH-VASCULAR & INTERVENTIONAL RADIOLOGY Registered Nurse 10/01/24 10/01/24 documented as of this encounter
--- OUTSIDE RECORDS SUMMARY | 2024-11-20 22:29 | XMS_ITS | Encounter Summary ---
Author Organization Healthcare Address [address] [place] [address] Care Team Providers Care Compressor Mechanic Name Role Phone Leonard Botello MD Primary Care Provider [phone] Encounter Details Date Type Department Care Team [...] drink first t hossein in the morning (EYE-COACH OPERATOR) to steady your nerves or to get rid of a hangover? 0 06/25/2023 CAGE Questionnaire Score 0 024 Utilities Answer Date Recorded In the past 12 months has th e [employer], gas, oil, or water company threatened to [...] documented as of this encounter Care Teams Compressor Mechanic Relationship Specialty Start Date End Date Leonard Botello MD [address] [facility] [address] [place] [address] PCP - General Family Medicine 06/08/22 documented as of this encounter
--- OUTSIDE RECORDS SUMMARY | 2024-11-20 22:29 | XMS_ITS | Encounter Summary ---
Author Organization Healthcare Address [address] [place] [address] Care Team Providers Care News Commentator Name Role Phone Leonard Botello MD Primary Care Provider [phone] Encounter Details Date Type Department Care Team (Latest Contact Info) Description 11/07/2024 Travel Social History Tobacco Use Types Packs/Day [...] time in the past 12 m [facility], were you homeless or living in a mcfp (including now)? 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-MAGNETIC LOCATER) to steady your nerves or to get rid of a hangover? 0 06/25/2023 CAGE Questionnaire Score 0 024 Utilities Answer Date Recorded In the past 12 months has th e [employer], gas, oil, or water company threatened to [...] documented as of this encounter Care Teams News Commentator Relationship Specialty Start Date End Date Leonard Botello MD [address] [facility] [address] [place] [address] PCP - General Family Medicine 06/08/22 documented as of this encounter
--- OUTSIDE RECORDS SUMMARY | 2024-11-20 22:29 | XMS_ITS | Encounter Summary ---
Author Organization Healthcare Address [address] [place] [address] Care Team Providers Care Seismic Observer Name Role Phone Pcp, No Primary Care Provider UnavailUrvashi Morocho WEAVING TEACHER Unavailable Unavailable Ranjana Elias WEAVING TEACHER Unavailable UnavailYola Bains Unavailable Unavailable Leonard Botello MD Primary Care Provider [phone] Yeseina Morrell WEAVING TEACHER Unavailable Unavailable Goldie Alan WEAVING TEACHER Unavailable Unavailabl Goldie Mccauley WEAVING TEACHER Unavailable Unavailabl Ranjana Billy S WEAVING TEACHER Unavailable UnavailMinnie Martinez RN Unavailable Unavailab le Encounter Details Date Type Department Care Team (Late st Contact Info) Description 07/29/2020 [facility] OTTR Encounter Historical OTTR [address] [place] [address] Rose Vázquez, EMPLOYEE BENEFITS DIRECTOR [address] [facility] [address] [place] [phone] Social History Tobacco Use Types Packs/Day Years Used Date Smoking Tobacco: Never Assessed Sex and Gender Information Value Date Recorded Sex Assigned at Male 03/02/2022 1:43 PM EST Legal Sex Male 8:21 PM EDT Gender Identity Male 03/02/2022 1:43 PM EST Sexual Orientation Straight 03/02/2022 1: 43 PM EST documented as of this encounter Miscellaneous Notes * Progress Notes - Rose Vázquez, SHOE SALESPERSON - 07/29/2020 3:29 PM EDT ICE: 59 yo CM w/ ESRD 2/2 DM/ HTN, began HD maybe in 2015 PMH: End-stage renal disease Diabetes mellitus Hypertension Cognitive developmental delay Congestive heart failure Hepatitis-C History of COVID pneumonia Neuropathy PSH: Left AV fistula Bilateral TMA Ear surgery Family history: unknown Social history: He is single, lives in a family skilled nursing with a paid caregiver. He denies tobacco, [...] delay, does not have a power of civil litigation attorney. When I asked him what he [...] understanding of all. Updated APM, SCM, OTTR, [place], and [address] calendar. Mailed updated 07/22/20 ICE ppw to pt and cc'd referring MD and dialysis center. * Progress Notes - Shasta Stout - 06/10/2020 9:53 AM EDT Received VM from Sharon Cherelle stating she wrote down incorrect appt info and just realized pt has appt today. She asked for call back at [phone] to r/s pt's appt. Called her back/ No answer, LVMasking for return call to discuss r/s'ing pt's appt. Notified [facility] via Teams message. * Progress Notes - Shasta Stout - 05/20/2020 2:14 PM EST Received kidney txp referral. Called pt and spoke w/ his it software developer (Sharon Villarreal). Verified pt's address and dialysis. [...] documented as of this encounter Care Teams Seismic Observer Relationship Specialty Start Date End Date Pcp, No [address] [place] [address] PCP - General Family Medicine 09/16/21 06/07/22 Leonard Botello MD [address] [facility] [address] [place] [address] PCP - General Family Medicine 06/08/22 Urvashi Del Cid LPN VALUE-BASED [place] [address] TCM Nurse 09/30/21 10/29/21 Ranjana Elias LPN VALUE-BASED [place] [address] TCM Nurse 03/25/22 04/18/22 [place] [address] Press Tender Incendiary Grenade Line Up Worker 04/12/22 05/05/22 Yesenia Morrell LPN VALUE-BASED [place] [address] TCM Nurse 07/29/22 08/04/22 Goldie Alan LPN VALUE-BASED TRANSFORMATION PROGRAM TCM Nurse Internal Medicine 08/10/22 08/11/22 Goldie Alan LPN VALUE-BASED TRANSFORMATION PROGRAM TCM Nurse Internal Medicine 08/17/22 09/16/22 Ranjana Elias LPN VALUE-BASED [place] [address] TCM Nurse 01/13/23 02/08/23 Minnie Penn, RN CH-VASCULAR & INTERVENTIONAL RADIOLOGY Registered Nurse 10/01/24 10/01/24 documented as of this encounter
--- OUTSIDE RECORDS SUMMARY | 2024-11-20 22:29 | XMS_ITS | Encounter Summary ---
Author Organization Healthcare Address [address] [place] [address] Care Team Providers Care College Intern Name Role Phone Leonard Botello MD Primary Care Provider [phone] Encounter Details Date Type Department Care Team [...] any time in the past 12 m [facility], were you homeless or living in a snf (including now)? 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-CONTACT CENTRE SUPERVISOR) to steady your nerves or to get rid of a hangover? 0 06/25/2023 CAGE Questionnaire Score 0 024 Utilities Answer Date Recorded In the past 12 months has th e [employer], gas, oil, or water company threatened to [...] 10/09/2024 8:00 PM Tristian Cherry Jr., RN 3. Active Suicidal Ideation with [...] 1 Month) No 10/09/2024 8:00 PM GISSELT Scott Jama Jr., RN 6. Suicidal Behavior (Lifetime) No 10/09/2024 8:00 PM GISSELT Tristian Jama Jr., RN documented as of [...] documented as of this encounter Care Teams College Intern Relationship Specialty Start Date End Date Leonard Botello MD [address] [address] PCP - General Family Medicine 06/08/22 documented as of this encounter
--- OUTSIDE RECORDS SUMMARY | 2024-11-20 22:29 | XMS_ITS | Encounter Summary ---
Author Organization Healthcare Address [address] [place] [address] Care Team Providers Care Ad Terminal Makeup Operator Name Role Phone Leonard Botello MD Primary Care Provider [phone] Encounter Details Date Type Department Care Team [...] any time in the past 12 m [facility], were you homeless or living in a prison (including now)? 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-PASTING MACHINE OFFBEARER) to steady your nerves or to get rid of a hangover? 0 06/25/2023 CAGE Questionnaire Score 0 024 Utilities Answer Date Recorded In the past 12 months has th e [employer], gas, oil, or water company threatened to [...] 1 Month) No 025 8:00 PM EDT Shakira Olsen RN 2. Non-Specific Active Suici taylor Thoughts (Past 1 Month) No 10/02/2024 8:00 PM GISSELT Shakira Olsen RN 3. Active Suicidal Ideation with any Methods (Not Plan) Without Intent to Act (Past 1 Month) No 10/02/2024 8:00 PM Shakira Quach RN 4. Active Suicidal Ideation with Some Intent to Act, Without Specific Plan (Past 1 Month) No 10/02/2024 8:00 PM EDT Shakira Olsen RN 5. Active Suicidal Ideation with Specific Plan and Intent (Past 1 Month) No 10/02/2024 8:00 PM GISSELT Shakira Olsen RN 6. Suicidal Behavior (Lifetime) No 8:00 PM Shakira Quach RN documented as of this encounter Mental Status * Because of a physical, mental, or emotional condition, do you have serious difficulty concentrating, remembering, or making decisions? (5 years old or older) Answer Entry Date Author Yes 09/29/2021 3:17 PM EDMario Vasquez documented in this encounter Plan of Treatment [...] documented as of this encounter Care Teams Ad Terminal Makeup Operator Relationship Specialty Start Date End Date Leonard Botello MD [address] [address] PCP - General Family Medicine 06/08/22 documented as of this encounter
--- OUTSIDE RECORDS SUMMARY | 2024-11-20 22:29 | XMS_ITS | Clinical Summary ---
Author Organization Healthcare Address [address] [place] [address] Care Team Providers Care Medical Staff Physician Name Role Phone Leonard Botello MD Primary Care Provider [phone] Allergies No known active allergies Medications * This document contains information received from the source organization and may not represent a complete record from that organization. traZODone (Desyrel) 100 MG tabletIndicatio ns:Primary insomnia Take 1 tablet (100 mg) by mouth every night. 30 tablet 2 01/19/2023 Active atorvastatin (Lipitor) 40 MG tablet Take [...] Do not crush, chew, or split. 10/21/2024 Active senna (Senokot) 8.6 MG tablet Take 2 tablets by mouth nightly. 10/21/2024 Active Active Problems Problem Noted Date Diagnosed Date [...] Anemia in chronic kidney disease (CODE) 04/30/19 Assessment & Plan (10/01/2024 6:37 AM EDT): - Hgb stable, transfuse to keep >7 - ferritin, iron studies Declining functional status 04/15/2023 Assessment & Plan (10/01/2024 6:37 AM EDT): - Transferred to [facility] a week ago and since arrival refusing HD, to eat, participate, or take medications - sent to ED for medical evaluation and need for higher level of assist/unable to care for self/non-compliance - afebrile, VSS, no acute complaints PLAN - PT/OT consult re: placement - legal guardian is his brother, Chris Dooley, #[phone] Chronic osteomyelitis 12/20/2022 BPH (benign prostatic hyperplasia) [...] [facility] 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 Sensorineural hearing [...] 10/01/2024 Primary hypertension 08/27/2023 024 Chronic kidney disease-raise miner al and bone disorder 06/07/2023 08/31/2023 Anemia [...] renal disease 07/27/202209/17 Central line-associated bloodstream infection 06/30/1909/30/2024 Bacteremia associated with intravascular line 06/29/1909/30/2024 Declining [...] evaluation and treatment for inpatient services at [facility] -patient will be contacted pertaining on when to arrive to [facility] for evaluation -Caregiver spoke with celso Ruff (child protective services social worker) and was instructed to contact child protective services social worker for any further questions -Education [...] (02/28/2022): Added automatically from request for surgery [id number] Non-compliance 12/24/2021 10/01/2024 Aches 12/22/2021 09/30/2024 Assessment [...] Encounters Date Type Department Care Team Description 11/07/2024 12:20 PM EDT - 11/07/2024 11:59 PM EDT Hospital Encounter [facility] Interventional Radiology [address] [place] [address] Arturo Ramos, RN ESRD (end stage renal disease) ([facility]); Unspecified complication of cardiac and vascular prosthetic device, implant and graft, subsequent encounter Discharge Disposition: Home or Self Care 11/07/2024 Travel 10/21/2024 Travel 10/18/2024 Travel 10/17/2024 Travel 10/16/2024 Travel 10/15/2024 Travel 10/14/2024 Travel 10/11/2024 Travel 10/09/2024 Travel 10/07/2024 Travel 10/04/2024 Travel 10/02/2024 Patient Outreach [facility] [address] [place] [id number] Enoc Bustillo Chandana 10/02/2024 Travel 10/01/2024 Patient Outreach [facility] [address], [address] [place] [address] Minnie Penn, RN Link 09/30/2024 3:29 PM EDT - 10/21/2024 3:10 PM EDT Hospital Encounter [facility] S Inpatient [address] [place] [address] Lesvia Hudson MD Khalid, MD Warren Pedersen Elizabeth, MD Kidwai, MD Tori Mendieta Padmaja, MD ESRD (end stage renal disease) (CMS/HCC) (Primary Dx); Noncompliance by refusing service; ESRD (end stage renal disease) on dialysis ([facility]); Declining functional status Discharge Disposition: Long-Term Facility 09/30/2024 Travel from Last 3 Months [...] any time in the past 12 m [facility], were you homeless or living in a [place] health care facility (including now)? 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 OPERATOR) to steady your nerves or to [...] Mass Index 24.23 11/07/2024 1:31 PM EDT Plan of Treatment Health Maintenance Due [...] 08/22/2014 03/24/2014, 02/10/2014 [facility]-Depression Screening 09/14/2023 09/13/2022 [id number] Vaccine (5 - season) 2024 01/03/2022, 04/07/2021, 07/23/2020, Additional history exists [facility]-Influenza [...] this topic Medical Devices Implanted Type Area Fence Rider Device Identifier Shelf Expiration Date Model / Serial / Lot Graft Flixene Grd Wall Gds [id number] - [id number] - [id number] Implanted:Qty: 1 on 07/27/2022 by Aravind Gomez MD at [facility] Graft Right: Arm [id number] 02/02/2025 [id number] / [id number] / Stent Endoprosthesis Viabahn 8fr [id number] - [id number] Implanted:Qty: 1 on 10/07/2021 by Deven Roldan MD at [facility] [employer]-[id number] 06/05/2024 [id number] / [id number] / [id number] Procedures Procedure Name Priority Date/Time Associated Diagnosis Comments IR ANGIOGRAM ARTERIOVENOUS SHUNT Routine 11/07/2024 3:02 PM EDT ESRD (end stage renal disease) ([facility]) Unspecified complication of cardiac and vascular prosthetic device, implant and graft, subsequent encounter HEMODIALYSIS INPATIENT Routine 10/21/2024 11:17 AM EDT ESRD (end stage renal disease) on dialysis (CMS/HCC) POCT GLUCOSE METER UNSOLICITED RESULTS Routine 10/21/2024 [...] ESRD (end stage renal disease) on dialysis ([facility]) POCT GLUCOSE METER UNSOLICITED RESULTS Routine 10/17/2024 [...] ESRD (end stage renal disease) on dialysis ([facility]) HEMODIALYSIS INPATIENT Routine 10/16/2024 8:41 AM EDT ESRD (end stage renal disease) on dialysis ([facility]) POCT GLUCOSE METER UNSOLICITED RESULTS Routine 10/16/2024 [...] ESRD (end stage renal disease) on dialysis ([facility]) POCT GLUCOSE METER UNSOLICITED RESULTS Routine 10/11/2024 [...] ESRD (end stage renal disease) on dialysis ([facility]) POCT GLUCOSE METER UNSOLICITED RESULTS Routine 10/09/2024 [...] ESRD (end stage renal disease) on dialysis ([facility]) POCT GLUCOSE METER UNSOLICITED RESULTS Routine 10/07/2024 [...] ESRD (end stage renal disease) on dialysis ([facility]) POCT GLUCOSE METER UNSOLICITED RESULTS Routine 10/04/2024 [...] EDT from Last 3 Months Results * IR Angiogram ArterioVenous Shunt (11/07/2024 [...] Ax-Ax Loop AVG, C/O Prolonged Bleeding. TECHNIQUE: Analytical Data Scientist: Fernanda Singleton M.D Fluoroscopy time: 3.4 min, Air Kerma 8 mGy. Medications: 1% Local lidocaine was administered subcutaneously. Conscious sedation with IV Midazolam 1mg and IV Fentanyl 50 mcg were provided. Continuous physiologic monitoring provided by a qualified healthcare professional. Duration of Conscious Sedation: Time out: 14:31 close out: 14:50. Procedure: Right Ax-Ax Loop AVG Graftogram POBA and DCB TRANSPORTATION CONSULTANT of Severe Right Subclavian Vein Stenosis POBA [...] over a guide wire for a 4 Russian micropuncture sheath. An angiogram was performed from the site of puncture to the superior vena cava. Digital subtraction angiography was performed of the graft from peripheral to central. This revealed Severe Right Subclavian Stenosis Moderate Venous Anastomosis Stenosis Moderate Cannulation Zone Stenosis The micropuncture sheath was exchanged for a 7 Russian vascular sheath. Via the sheath, A stiff glide 0.035 180 cm wire was placed centrally through a 5 Russian glide catheter. Angioplasty of the right subclavian [...] angioplastied with 8 mm x 80 mm [place] angioplasty balloon with good response. Digital subtraction [...] RUE Ax-Ax Loop AVG, C/O ProlongedBleeding. TECHNIQUE: Analytical Data Scientist: Fernanda Singleton M.D Fluoroscopy time: 3.4 min, Air Kerma 8 mGy. Medications: 1% Local lidocaine was administered subcutaneously.Conscious sedation with IV Midazolam 1mg and IV Fentanyl 50 mcg wereprovided. Continuous physiologic monitoring provided by a qualifiedhealthcare professional. Duration of Conscious Sedation: Time out: 14:31 close out: 14:50. Procedure: Right Ax-Ax Loop AVG Graftogram POBA and DCB TRANSPORTATION CONSULTANT of Severe Right Subclavian Vein Stenosis POBA [...] micropuncture sheath was exchanged for a 7 Russian vascular sheath. Viathe sheath, A stiff glide 0.035 180 cm wire was placed centrally through a5 Russian glide catheter. Angioplasty of the right subclavian [...] Singleton MD IMG IR PROCEDURES Final Result * Hemodialysis inpatient 3 hr (180 min); [...] of86 resultswithin the time period is included. POCT Glucose 116(H) 74 - 99 mg/dL 10/21/2024 9:17 AM EDT [facility] Comment:Accuracy of a glucos e result [...] Comment 10/21/2024 9:17 AM EDT [facility]ALTH[facility]ARE [facility] Automatic Equipment Technician ID Jane Dill 10/21/2024 9:17 AM EDT HEALTHCARE LAB Device ID [id number] 10/21/2024 9:17 AM EDT [facility]ALTH[facility]ARE LAB Specimen Type POC Capillary 10/21/2024 9:17 AM EDT [facility] Blood Capillary blood specimen / Unknown 10/21/2024 9:15 AM EDT 10/21/2024 9:17 AM EDT Jeannie Valle MD LAB POINT OF CARE TE ST DOCKED DEVICE UNSOLICITED RESULTS Final Result Performing Organization Address [facility] Co de Phone Number [facility] [address] [place] [address] * Hepatitis B Core Total Antibody IgG,IgM (10/17/2024 2:31 PM EDT) Hepatitis B Core Total Antibody IgG,IgM Negative Negative 10/17/2024 5:01 PM EDT [facility] Blood Venous blood specimen / Unknown Venipuncture / Unknown 10/17/2024 2:31 PM EDT 10/17/2024 2:35 PM EDT Jeannie Valle MD LAB BLOOD ORDERABLES Final Res ult Performing Organization Address City/[facility]/ZIP Co de Phone Number [facility] [address] [place] [address] * XR Chest 1 View (10/17/2024 2:11 [...] Ashley Strong MD on 10/15/2024 9:58 PM Lala Valdes DB2 DEVELOPER IMG XR PROCEDURES Final Resul t * (ABNORMAL) Hemoglobin and Hematocrit, Blood (10/09/2024 3:45 PM EDT) Pathologist [facility] HGB 8.2(L) 13.7 - 17.5 g/dL LAB HEMATOLOGY METHOD 10/09/2024 3:54 PM EDT [facility] HCT 23.7(L) 40.0 - 51.0 % LAB HEMATOLOGY METHOD 10/09/2024 3:54 PM EDT [facility] Blood Arterial blood specimen / Unknown Arterial Puncture / Unknown 10/09/2024 3:45 PM EDT 10/09/2024 3:52 PM EDT Daphne Landry DB2 DEVELOPER, DNP LAB BLOOD ORDERABLES Selene jacinto Result [facility] [address] [place] [address] * (ABNORMAL) Magnesium, Plasma (10/07/2024 2:48 AM EDT) Only the most recent of6 resultswithin the time period is included. Magnesium, Plasma 1.6(L) 1.9 - 2.4 mg/dL 10/07/2024 3:28 AM EDT [facility] Blood Venous blood specimen / Unknown Venipuncture / Unknown 10/07/2024 2:48 AM EDT 10/07/2024 2:58 AM EDT us Leda Zeng MD LAB BLOOD ORDERA BLES Final Result [facility] [address] [place] [address] * (ABNORMAL) Renal Function Panel, Plasma (10/07/2024 2:48 AM EDT) Only the most recent of5 resultswithin the time period is included. Glucose, Plasma 96 74 - 99 mg/dL 10/07/2024 3:28 AM EDT [facility] BUN, Plasma 41(H) 8 - 23 mg/dL 10/07/2024 3:28 AM EDT [facility] Creatinine, Plasma 6.91(H) 0.70 - 1.20 mg/dL 10/07/2024 3:28 AM EDT [facility] BUN/Creatinine Ratio 6 10/07/2024 3:28 AM EDT [facility] Sodium, Plasma 125(L) 136 - 145 mmol/L 10/07/2024 3:28 AM EDT [facility] Potassium, Plasma 4.1 3.6 - 4.9 mmol/L 10/07/2024 3:28 AM EDT [facility] Chloride, Plasma 92(L) 97 - 107 mmol/L 10/07/2024 3:28 AM EDT [facility] CO2, Plasma 23 22 - 29 mmol/L 10/07/2024 3:28 AM EDT [facility] Anion Gap 10 6 - 16 mmol/L 10/07/2024 3:28 AM EDT [facility] Total Calcium, Plasma 7.2(L) 8.9 - 10.2 mg/dL 10/07/2024 3:28 AM EDT [facility] Phosphorus, Plasma 4.2 2.5 - 4.5 mg/dL 10/07/2024 3:28 AM EDT [facility] Albumin, Plasma 3.1(L) 3.5 - 5.2 g/dL 10/07/2024 3:28 AM EDT [facility] eGFRcr 8.2 mL/min/1.7 3m*2 10/07/2024 3:28 AM EDT [facility] Comment:Reported eGFRcr in m L/min/1.73m2 is based the CKD-EPI 2020 equation that does not use a race coefficient. Blood Venous blood specimen / Unknown Venipuncture / Unknown 10/07/2024 2:48 AM EDT 10/07/2024 2:58 AM EDT Leda Zeng MD LAB BLOOD ORDERA BLES Final Result Performing Organization Address City/[facility] Co de Phone Number [facility] [address] [place] [address] * PTH, intact (10/02/2024 9:58 AM EDT) Pathologist [facility] PTH Intact Total 9 9 - 77 pg/mL 10/02/2024 2:[address] [facility] Blood Venous blood specimen / Unknown Venipuncture / Unknown 10/02/2024 9:58 AM EDT 10/02/2024 11:19 AM EDT Narrative [facility] - 10/02/2024 2:50 PM EDT Assay performed by immunoassay at the [facility]. Performed on [employer] Client Professional chemiluminescent immunoassay, tractable to the World Health Organization's first international standard for PTH from the NIBS, Code 79/500. Results obtained from different test methods or kits cannot be used interchangeably. Leda Zeng MD LAB BLOOD ORDERA BLES Final Result Performing Organization Address City/[facility] Co de Phone Number [facility] [address] [place] [address] * Hepatitis C Virus (HCV) Quantitative PCR (10/02/2024 7:51 AM EDT) Pathologist [facility] Hepatitis C Virus (HCV) Quantitative Interpretation Not Detected Not Detected. 10/04/2024 2:37 PM EDT [facility] Blood Venous blood specimen / Unknown Venipuncture / Unknown 10/02/2024 7:51 AM EDT 10/02/2024 8:36 AM EDT Narrative [facility] - 10/04/2024 2:37 PM EDT [...] approved for clinical use. Daphne Landry APRN, ADA LAB BLOOD ORDERABLES Selene l Result Performing Organization Address [facility] [place] [address] * (ABNORMAL) Hepatitis B Surface Antibody, Quantitative (10/02/2024 7:51 AM EDT) [facility] Hepatitis B Surface Antibody, Quantitative 62.12(H) NonReacti ve: <8, Grayzone: 8 - <12, Reactive: >= 12 mIU/mL 10/02/2024 12:[address] [facility] Comment: Reactive. Individual is considered immune to HBV infection. Blood Venous blood specimen / Unknown Venipuncture / Unknown 10/02/2024 7:51 AM EDT 10/02/2024 8:35 AM EDT Daphne Landry APRN, ADA LAB BLOOD ORDERABLES Selene l Result Performing Organization Address [facility] Co de Phone Number [facility] [address] [place] [address] * (ABNORMAL) Hepatitis panel, acute (10/02/2024 7:51 AM EDT) [facility] Hepatitis B Surf Antigen Negative Negative 10/02/2024 3:10 PM EDT [facility] Hepatitis C Antibody Positive(A) Negative 10/02/2024 3:10 PM EDT [facility] Comment:This specimen is jamey ng sent for confirmation by RT-PCR. Hepatitis A Antibody IgM Negative Negative 10/02/2024 3:10 PM EDT [facility] Hepatitis B Core Antibody IgM Negative Negative 10/02/2024 3:10 PM EDT [facility] Blood Venous blood specimen / Unknown Venipuncture / Unknown 10/02/2024 7:51 AM EDT 10/02/2024 8:36 AM EDT us Daphne Landry DB2 DEVELOPER, DNP LAB BLOOD ORDERABLES Selene l Result Performing Organization Address City/[facility]/ZIP Co de Phone Number [facility] [address] [place] [address] * Vitamin D 25 Hydroxy (10/02/2024 5:36 AM EDT) Vitamin D 25 Hydroxy 33.5 20.0 - 80.0 ng/mL 10/02/2024 9:56 AM EDT [facility] Blood Venous blood specimen / Unknown Venipuncture / Unknown 10/02/2024 5:36 AM EDT 10/02/2024 5:42 AM EDT Narrative [facility] - 10/02/2024 9:56 AM EDT Testing performed on [employer] Client Professional, standardized against NIST SRM 2972. When testing [...] Possible toxicity: >100 ng/mL us Lala Valdes APRN LAB BLOOD ORDERABLES Final Re sult Performing Organization Address [facility]/ZIP Co de Phone Number [facility] [address] [place] [address] * (ABNORMAL) CBC and Differential (10/02/2024 5:36 AM EDT) Only the most recent of2 resultswithin the time period is included. WBC Count 7.44 3.70 - 10.30 10*3/uL LAB HEMATOLOGY METHOD 10/02/2024 5:44 AM EDT [facility] RBC Count 3.30(L) 4.60 - 6.10 10*6/uL LAB HEMATOLOGY METHOD 10/02/2024 5:44 AM EDT [facility] HGB 10.4(L) 13.7 - 17.5 g/dL LAB HEMATOLOGY METHOD 10/02/2024 5:44 AM EDT [facility] HCT 29.8(L) 40.0 - 51.0 % LAB HEMATOLOGY METHOD 10/02/2024 5:44 AM EDT [facility] Platelet Count 119(L) 155 - 369 10*3/uL LAB HEMATOLOGY METHOD 10/02/2024 5:44 AM EDT [facility] MCV 90 79 - 98 fL LAB HEMATOLOGY METHOD 10/02/2024 5:44 AM EDT [facility] MCH 31.5 26.0 - 32.0 pg LAB HEMATOLOGY METHOD 10/02/2024 5:44 AM EDT [facility] MCHC 34.9 30.7 - 35.5 g/dL LAB HEMATOLOGY METHOD 10/02/2024 5:44 AM EDT [facility] RDW 12.5 11.5 - 14.5 % LAB HEMATOLOGY METHOD 10/02/2024 5:44 AM EDT [facility] MPV 9.5 8.8 - 12.5 fL LAB HEMATOLOGY METHOD 10/02/2024 5:44 AM EDT [facility] nRBC 0.0 <=0.0 per 100 WBCs LAB HEMATOLOGY METHOD 10/02/2024 5:44 AM EDT [facility] Differential Type Automated LAB HEMATOLOGY METHOD 10/02/2024 5:44 AM EDT [facility] Neutrophils % 59 % LAB HEMATOLOGY METHOD 10/02/2024 5:44 AM EDT [facility] Lymphocytes % 28 % LAB HEMATOLOGY METHOD 10/02/2024 5:44 AM EDT [facility] Monocytes % 7 % LAB HEMATOLOGY METHOD 10/02/2024 5:44 AM EDT [facility]ALTH[facility]ARE LAB Eosinophils % 4 % LAB HEMATOLOGY METHOD 10/02/2024 5:44 AM EDT [facility] Basophils % 1 % LAB HEMATOLOGY METHOD 10/02/2024 5:44 AM EDT [facility] Immature Granulocytes % 1 % LAB HEMATOLOGY METHOD 10/02/2024 5:44 AM EDT [facility] Neutrophils Absolute 4.44 1.60 - 6.10 10*3/uL LAB HEMATOLOGY METHOD 10/02/2024 5:44 AM EDT [facility]ALTH[facility]ARE [facility] Lymphocytes Absolute 2.10 1.20 - 3.90 10*3/uL LAB HEMATOLOGY METHOD 10/02/2024 5:44 AM EDT [facility] Monocytes Absolute 0.53 0.30 - 0.90 10*3/uL LAB HEMATOLOGY METHOD 10/02/2024 5:44 AM EDT [facility] Eosinophils Absolute 0.26 0.00 - 0.50 10*3/uL LAB HEMATOLOGY METHOD 10/02/2024 5:44 AM EDT [facility] Basophils Absolute 0.06 0.00 - 0.10 10*3/uL LAB HEMATOLOGY METHOD 10/02/2024 5:44 AM EDT [facility] Immature Granulocytes Absolute 0.05 0.00 - 0.06 10*3/uL LAB HEMATOLOGY METHOD 10/02/2024 5:44 AM EDT [facility] Blood Venous blood specimen / Unknown Venipuncture / Unknown 10/02/2024 5:36 AM EDT 10/02/2024 5:42 AM EDT Narrative [facility] - 10/02/2024 5:44 AM EDT Therapeutic decision making should be based on absolute values, rather than percentages. Lala Valdes DB2 DEVELOPER LAB BLOOD ORDERABLES Final Re sult Performing Organization Address [facility] Co de Phone Number [facility] [address] [place] [address] * (ABNORMAL) Ferritin, Serum (10/02/2024 5:36 AM EDT) Pathologist [facility] Ferritin, Serum 1,701(H) 20 - 400 ng/mL 10/02/2024 8:36 AM EDT [facility] Blood Venous blood specimen / Unknown Venipuncture / Unknown 10/02/2024 5:36 AM EDT 10/02/2024 5:42 AM EDT Lala Valdes DB2 DEVELOPER LAB BLOOD ORDERABLES Final Re sult Performing Organization Address City/[facility]/ZIP Co de Phone Number [facility] [address] [place] [address] * Multi Drug Resistance Test (10/01/2024 9:04 PM EDT) [facility] Culture No growth at day 1 10/03/2024 5:[address] [facility] Swab (Nares and Sydni Rectal) Non-blood Collection / Unknown 10/01/2024 9:04 PM EDT 10/01/2024 9:46 PM EDT Narrative [facility] - 10/03/2024 5:35 AM EDT This test was developed and its performance characteristics determined by the [facility]. Although the media is FDA-approved, it is not FDA-approved for all specimen types submitted. The FDA has determined that such clearance or approval is not necessary. This test is used for surveillance purposes. It should not be regarded as investigational or for research. The [facility] is certified under the Clinical Laboratory Improvement Amendments of 1988 (CLIA-88) as qualified to perform high complexity clinical laboratory testing. Lala Valdes APRN LAB MICROBIOLOGY - GENERAL OR DERABLES Final Result Performing Organization Address City/[facility]/ZIP Co de Phone Number [facility] [address] [place] [address] * TSH Reflex FT4 (09/30/2024 4:50 PM EDT) [facility] Thyroid Stimulating Hormone, Plasma 0.91 0.40 - 4.20 uIU/mL 09/30/2024 9:27 PM EDT [facility] Blood Venous blood specimen / Unknown Venipuncture / Unknown 09/30/2024 4:50 PM EDT 09/30/2024 4:53 PM EDT [employer] DB2 DEVELOPER LAB BLOOD ORDERABLES Final Re sult Performing Organization Address City/[facility]/ZIP Co de Phone Number [facility] [address] [place] [address] * (ABNORMAL) Iron & Total Iron Binding Capacity, Plasma (Includes Transferrin) (09/30/2024 4:50 PM EDT) [facility] Iron, Plasma 66 50 - 170 ug/dL 09/30/2024 11:58 PM EDT [facility] Transferrin, Plasma 117(L) 200 - 360 mg/dL 09/30/2024 11:58 PM EDT [facility] Total Iron Binding Capacity, Plasma 146(L) 240 - 450 ug/mL 09/30/2024 11:58 PM EDT [facility] Transferrin Saturation 45 14 - 50 % 09/30/2024 11:58 PM EDT [facility] Blood Venous blood specimen / Unknown Venipuncture / Unknown 09/30/2024 4:50 PM EDT 09/30/2024 4:53 PM EDT us Lala Valdes APRN LAB BLOOD ORDERABLES Final Re sult Performing Organization Address City/[facility]/ZIP Co de Phone Number [facility] [address] [place] [address] * (ABNORMAL) C-Reactive protein (09/30/2024 4:50 PM EDT) [facility] CRP, Plasma 16.1(H) <=8.0 mg/L 09/30/2024 5:14 PM EDT [facility] Blood Venous blood specimen / Unknown Venipuncture / Unknown 09/30/2024 4:50 PM EDT 09/30/2024 4:53 PM EDT Narrative [facility] - 09/30/2024 5:14 PM EDT This CRP test is appropriate for assessment of infection, systemic inflammation and/or tissue injury. To assess cardiovascular disease risk order high sensitivity CRP (CRPH). us Lesvia Hudson MD LAB BLOOD ORDERABLES Final Re sult [facility] [facility] [address] [place] [address] * Phosphorus (09/30/2024 4:50 PM EDT) [facility] Phosphorus, Plasma 3.3 2.5 - 4.5 mg/dL 09/30/2024 5:14 PM EDT [facility] Blood Venous blood specimen / Unknown Venipuncture / Unknown 09/30/2024 4:50 PM EDT 09/30/2024 4:53 PM EDT us Lesvia Hudson MD LAB BLOOD ORDERABLES Final Re sult Performing Organization Address City/[facility]/ZIP Co de Phone Number [facility] [address] [place] [address] * (ABNORMAL) Hemoglobin A1c (09/30/2024 4:50 PM EDT) Hemoglobin A1c 6.3(H) <5.7 % 10/01/2024 12:06 PM EDT [facility] Blood Venous blood specimen / Unknown Venipuncture / Unknown 09/30/2024 4:50 PM EDT 09/30/2024 4:54 PM EDT Narrative [facility] - 10/01/2024 12:06 PM EDT HA1C Interpretive Data: Diagnosis of Diabetes: Diabetic > or = 6.5% Pre-diabetic 5.7 to 6.4% Non-diabetic < or = 5.6% Glycemic Targets for Type I and Type II Diabetics: Non- Adults <7.0% Adults <6.0% Children and Adolescents <7.5% Source: [place] [employer]. Standards of medical care in diabetes,2017. Diabetes Care.2017:40 (suppl 1):S1-S135. us Lala Valdes APRN LAB BLOOD ORDERABLES Final Re sult Performing Organization Address City/[facility] Co de Phone Number [facility] [address] [place] [address] * (ABNORMAL) CMP (09/30/2024 4:50 PM EDT) Glucose, Plasma 185(H) 74 - 99 mg/dL 09/30/2024 5:14 PM EDT [facility] BUN, Plasma 29(H) 8 - 23 mg/dL 09/30/2024 5:14 PM EDT [facility] Creatinine, Plasma 7.58(H) 0.70 - 1.20 mg/dL 09/30/2024 5:14 PM EDT [facility] BUN/Creatinine Ratio 4 09/30/2024 5:14 PM EDT [facility] Sodium, Plasma 131(L) 136 - 145 mmol/L 09/30/2024 5:14 PM EDT [facility] Potassium, Plasma 3.0(L) 3.6 - 4.9 mmol/L 09/30/2024 5:14 PM EDT [facility] Chloride, Plasma 90(L) 97 - 107 mmol/L 09/30/2024 5:14 PM EDT [facility] CO2, Plasma 28 22 - 29 mmol/L 09/30/2024 5:14 PM EDT [facility] Anion Gap 13 6 - 16 mmol/L 09/30/2024 5:14 PM EDT [facility] Total Calcium, Plasma 7.6(L) 8.9 - 10.2 mg/dL 09/30/2024 5:14 PM EDT [facility] Total Protein 7.2 6.3 - 7.9 g/dL 09/30/2024 5:14 PM EDT [facility] Albumin, Plasma 3.7 3.5 - 5.2 g/dL 09/30/2024 5:14 PM EDT [facility] AST, Plasma 13 10 - 50 U/L 09/30/2024 5:14 PM EDT [facility] ALT, Plasma 6(L) 10 - 50 U/L 09/30/2024 5:14 PM EDT [facility] Alkaline Phosphatase, Plasma 42 40 - 115 U/L 09/30/2024 5:14 PM EDT [facility] Total Bilirubin, Plasma 0.6 0.2 - 1.1 mg/dL 09/30/2024 5:14 PM EDT [facility] eGFRcr 7.3 mL/min/1.7 3m*2 09/30/2024 5:14 PM EDT [facility] Comment:Reported eGFRcr in m L/min/1.73m2 is based the CKD-EPI 2020 equation that does not use a race coefficient. Blood Venous blood specimen / Unknown Venipuncture / Unknown 09/30/2024 4:50 PM EDT 09/30/2024 4:53 PM EDT us Lesvia Hudson MD LAB BLOOD ORDERABLES Final Re sult [facility] [address] [place] [address] * EKG now - STAT (adult) (09/30/2024 4:09 PM EDT) EKG DIAGNOSIS CLASS Abnormal MUSE ECG Ventricular Rate 70 BPM MUSE ECG Atrial Rate 70 BPM MUSE ECG OK Interval 154 ms MUSE ECG QRSD Interval 106 ms MUSE ECG QT Interval 430 ms MUSE ECG QTC Interval 464 ms MUSE ECG P [place] 69 degrees MUSE ECG R [place] -23 degrees MUSE ECG T Wave [place] 5 degrees MUSE ECG Diagnosis Normal sinus rhythm MUSE ECG Diagnosis Nonspecific T wave abnormality MUSE ECG Diagnosis Abnormal ECG MUSE ECG Diagnosis MUSE ECG Diagnosis Confirmed by Sb Cole ([id number]) on 09/30/2024 5:32:21 PM MUSE ECG 09/30/2024 4:09 PM EDT 09/30/2024 5:32 PM EDT us Lesvia Hudson MD ECG ORDERABLES Final Result MUSE ECG from Last 3 Months Additional Health Concerns Infection Onset Date Last Indicated 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 Yes Care Teams Medical Staff Physician Relationship Specialty [place] [address] [place] [address] [address] [place] [phone] PCP - General Family Medicine 06/08/22
--- OUTSIDE RECORDS SUMMARY | 2024-11-20 22:29 | XMS_ITS | Encounter Summary ---
Author Organization Healthcare Address [address] [place] [address] Care Team Providers Care Popcorn Candy Maker Name Role Phone Pcp, No Primary Care Provider UnavailUrvashi Morocho METAL OR WOOD BLOCKER Unavailable Unavailable Ranjana Elias METAL OR WOOD BLOCKER Unavailable UnavailYola Bains Unavailable Unavailable Leonard Botello MD Primary Care Provider [phone] Yesenia Morrell METAL OR WOOD BLOCKER Unavailable Unavailable Goldie Alan METAL OR WOOD BLOCKER Unavailable Unavailabl Goldie Mccauley METAL OR WOOD BLOCKER Unavailable Unavailabl Ranjana Billy S METAL OR WOOD BLOCKER Unavailable UnavailMinnie Martinez RN Unavailable Unavailab le Encounter Details Date Type Department Care Team (Late st Contact Info) Description 07/29/2020 [facility] [address] [place] [address] Rose Vázquez, SIZING MACHINE TENDER [address] [facility] [address] [place] [address] Social History Tobacco Use Types Packs/Day Years Used Date Smoking Tobacco: Never Assessed Sex and Gender Information Value Date Recorded Sex Assigned at Male 03/02/2022 1:43 PM EST Legal Sex Male 8:21 PM EDT Gender Identity Male 03/02/2022 1:43 PM EST Sexual Orientation Straight 03/02/2022 1: 43 PM EST documented as of this encounter Miscellaneous Notes * Progress Notes - Rose Vázquez PERSONAL BANKING OFFICER - 07/29/2020 3:29 PM EDT ICE: 59 yo CM w/ ESRD 2/2 DM/ HTN, began HD maybe in 2015 PMH: End-stage renal disease Diabetes mellitus Hypertension Cognitive developmental delay Congestive heart failure Hepatitis-C History of COVID pneumonia Neuropathy PSH: Left AV fistula Bilateral TMA Ear surgery Family history: unknown Social history: He is single, lives in a family group home with a paid caregiver. He denies tobacco, [...] delay, does not have a power of environmental attorney. When I asked him what he [...] documented as of this encounter Care Teams Popcorn Candy Maker Relationship Specialty Start Date End Date Pcp, No [address] [place] [address] PCP - General Family Medicine 09/16/21 06/07/22 [place] [address] [place] [address] [address] [place] [phone] PCP - General Family Medicine 06/08/22 Urvashi Del Cid LPN [employer] [place] [address] TCM Nurse 09/30/21 10/29/21 Ranjana Elias LPN [employer] [place] [address] TCM Nurse 03/25/22 04/18/22 [place] [address] Well Service Derrick Worker Leather Products Supervisor 04/12/22 05/05/22 Yesenia Morrell LPN VAL[employer] [place] [address] TCM Nurse 07/29/22 08/04/22 Goldie Alan LPN VALUE-BASED TRANSFORMATION PROGRAM TCM Nurse Internal Medicine 08/10/22 08/11/22 Planck, Goldie N, METAL OR WOOD BLOCKER VALUE-BASED TRANSFORMATION PROGRAM TCM Nurse Internal Medicine 08/17/22 09/16/22 Ranjana Elias, CHRISTY VAL[employer] [place] [address] TCM Nurse 01/13/23 02/08/23 Minnie Penn, RN CH-VASCULAR & INTERVENTIONAL RADIOLOGY Registered Nurse 10/01/24 10/01/24 documented as of this encounter
--- OUTSIDE RECORDS SUMMARY | 2024-11-20 22:29 | XMS_ITS | Encounter Summary ---
Author Organization Healthcare Address [address] [place] [address] Care Team Providers Care Operating Systems Specialist Name Role Phone Pcp, No Primary Care Provider UnavailLeonard New MD Primary Care Provider [phone] Yesenia Morrell BINDERY MACHINE SETTER/SET UP OPERATOR Unavailable Unavailable Goldie Alan LPN Unavailable UnavailGoldie Kong LPN Unavailable Unavailabl Ranjana Billy BINDERY MACHINE SETTER/SET UP OPERATOR Unavailable UnavailMinnie Martinez RN Unavailable Unavailab le Encounter Details Date Type Department Care Team (Latest Contact Info) Description 06/01/2022 Lab Requisition [facility] [address] [place] [address] Ariel Lucas MD [address] [place] [address] Osteomyelitis of vertebra, thoracic region [...] Assessment Author No 09/29/2021 3:17 PM EDT Itmann, R uth A * Are you blind or do you have serious difficulty seeing, even when wearing glasses? Answer Date of Assessment Author Yes 09/29/2021 3:17 PM EDT Itmann, R uth A * Do you have serious difficulty walking or climbing stairs? Answer Date of Assessment Author Yes 09/29/2021 3:17 PM EDT Itmann, R uth A * Do you have serious difficulty dressing or bathing? Answer Date of Assessment Author Yes 09/29/2021 3:17 PM EDT Itmann, R uth A * Because of a [...] LAB HEMATOLOGY METHOD 06/01/2022 3:27 PM EDT [facility] RBC Count 3.55(L) 4.60 - 6.10 10*6/uL LAB HEMATOLOGY METHOD 06/01/2022 3:27 PM EDT [facility] HGB 10.0(L) 13.7 - 17.5 g/dL LAB HEMATOLOGY METHOD 06/01/2022 3:27 PM EDT [facility] HCT 30.5(L) 40.0 - 51.0 % LAB HEMATOLOGY METHOD 06/01/2022 3:27 PM EDT [facility] Platelet Count 162 155 - 369 10*3/uL LAB HEMATOLOGY METHOD 06/01/2022 3:27 PM EDT [facility] MCV 86 79 - 98 fL LAB HEMATOLOGY METHOD 06/01/2022 3:27 PM EDT [facility] MCH 28.2 26.0 - 32.0 pg LAB HEMATOLOGY METHOD 06/01/2022 3:27 PM EDT [facility] MCHC 32.8 30.7 - 35.5 g/dL LAB HEMATOLOGY METHOD 06/01/2022 3:27 PM EDT [facility] RDW 14.1 11.5 - 14.5 % LAB HEMATOLOGY METHOD 06/01/2022 3:27 PM EDT [facility] MPV 11.7 8.8 - 12.5 fL LAB HEMATOLOGY METHOD 06/01/2022 3:27 PM EDT [facility] nRBC 0.0 <=0.0 per 100 WBCs LAB HEMATOLOGY METHOD 06/01/2022 3:27 PM EDT [facility] Differential Type Automated LAB HEMATOLOGY METHOD 06/01/2022 3:27 PM EDT [facility] Neutrophils % 75.0 % LAB HEMATOLOGY METHOD 06/01/2022 3:27 PM EDT [facility] Lymphocytes % 16.0 % LAB HEMATOLOGY METHOD 06/01/2022 3:27 PM EDT [facility] Monocytes % 5.0 % LAB HEMATOLOGY METHOD 06/01/2022 3:27 PM EDT [facility] Eosinophils % 2.0 % LAB HEMATOLOGY METHOD 06/01/2022 3:27 PM EDT [facility] Basophils % 1.0 % LAB HEMATOLOGY METHOD 06/01/2022 3:27 PM EDT [facility] Immature Granulocytes % 1.0 % LAB HEMATOLOGY METHOD 06/01/2022 3:27 PM EDT [facility] Neutrophils Absolute 6.28(H) 1.60 - 6.10 10*3/uL LAB HEMATOLOGY METHOD 06/01/2022 3:27 PM EDT [facility] Lymphocytes Absolute 1.33 1.20 - 3.90 10*3/uL LAB HEMATOLOGY METHOD 06/01/2022 3:27 PM EDT [facility] Monocytes Absolute 0.41 0.30 - 0.90 10*3/uL LAB HEMATOLOGY METHOD 06/01/2022 3:27 PM EDT [facility] Eosinophils Absolute 0.16 0.00 - 0.50 10*3/uL LAB HEMATOLOGY METHOD 06/01/2022 3:27 PM EDT [facility] Basophils Absolute 0.04 0.00 - 0.10 10*3/uL LAB HEMATOLOGY METHOD 06/01/2022 3:27 PM EDT [facility] Immature Granulocytes Absolute 0.05 0.00 - [...] BLOOD ORDERABLES Final Resul t [facility] [address] [place] [address] * (ABNORMAL) C-reactive protein (06/01/2022 2:20 PM EDT) CRP, Plasma 92.1(H) <=8.0 mg/L 06/01/2022 3:42 PM EDT [facility] Blood Venous blood specimen / Unknown 06/01/2022 2:20 PM EDT 06/01/2022 3:19 PM EDT Narrative [facility] - 06/01/2022 3:42 PM EDT This CRP test is appropriate for assessment of infection, systemic inflammation and/or tissue injury. To assess cardiovascular disease risk order high sensitivity CRP (CRPH). us Ariel Lucas MD LAB BLOOD ORDERABLES Final Resul t [facility] [address] [place] [address] * (ABNORMAL) Comprehensive metabolic panel (06/01/2022 2:20 PM EDT) Glucose, Plasma 382(H) 74 - 99 mg/dL 06/01/2022 3:42 PM EDT [facility] BUN, Plasma 23 8 - 23 mg/dL 06/01/2022 3:42 PM EDT [facility] Creatinine, Plasma 3.41(H) 0.80 - 1.30 mg/dL 06/01/2022 3:42 PM EDT [facility] BUN/Creatinine Ratio 7 06/01/2022 3:42 PM EDT [facility] Sodium, Plasma 128(L) 136 - 145 mmol/L 06/01/2022 3:42 PM EDT [facility] Potassium, Plasma 3.9 3.7 - 4.8 mmol/L 06/01/2022 3:42 PM EDT [facility] Chloride, Plasma 93(L) 97 - 107 mmol/L 06/01/2022 3:42 PM EDT [facility] CO2, Plasma 26 22 - 29 mmol/L 06/01/2022 3:42 PM EDT [facility] Anion Gap 9 6 - 16 mmol/L 06/01/2022 3:42 PM EDT [facility] Total Calcium, Plasma 8.7(L) 8.9 - 10.2 mg/dL 06/01/2022 3:42 PM EDT [facility] Total Protein 7.6 6.3 - 7.9 g/dL 06/01/2022 3:42 PM EDT [facility] Albumin, Plasma 3.4(L) 3.5 - 5.2 g/dL 06/01/2022 3:42 PM EDT [facility] AST, Plasma 13(L) 19 - 48 U/L 06/01/2022 3:42 PM EDT [facility] ALT, Plasma 8(L) 11 - 41 U/L 06/01/2022 3:42 PM EDT [facility] Alkaline Phosphatase, Plasma 53 40 - 115 U/L 06/01/2022 3:42 PM EDT [facility] Total Bilirubin, Plasma 0.4 0.2 - 1.1 mg/dL 06/01/2022 3:42 PM EDT [facility] eGFRcr 19.4 mL/min/1.7 3m*2 06/01/2022 3:42 PM EDT [facility] Comment: Reported eGFRcr in mL/min/1.73m2 is based the CKD-EPI 2020 equation that does not use a race coefficient. Effective 10/13/21 our laboratory changed the eGFR calculation to the CKD-EPI 202 equation from the previously reported eGFR, based on the MDRD equation. For comparisons between the two equations, please see laboratory website: [email or web address] Blood Venous blood specimen / Unknown 06/01/2022 2:20 PM EDT 06/01/2022 3:19 PM EDT us Ariel Lucas MD LAB BLOOD ORDERABLES Final Resul t [facility] [address] [place] [address] documented in this encounter Visit Diagnoses Diagnosis [...] documented as of this encounter Care Teams Operating Systems Specialist Relationship Specialty Start Date End Date Pcp, No [address] [place] [address] PCP - General Family Medicine 09/16/21 06/07/22 Leonard Botello MD [address] [facility] [address] [place] [phone] PCP - General Family Medicine 06/08/22 Yeesnia Morrell LPN VAL[employer] [place] [address] TCM Nurse 07/29/22 08/04/22 Goldie Alan LPN VALUE-BASED TRANSFORMATION PROGRAM TCM Nurse Internal Medicine 08/10/22 08/11/22 Goldie Alan LPN VALUE-BASED TRANSFORMATION PROGRAM TCM Nurse Internal Medicine 08/17/22 09/16/22 Ranjana Elias LPN [employer] [address] TCM Nurse 01/13/23 02/08/23 Minnie Penn, RN CH-VASCULAR & INTERVENTIONAL RADIOLOGY Registered Nurse 10/01/24 10/01/24 documented as of this encounter
--- OUTSIDE RECORDS SUMMARY | 2024-11-20 22:29 | XMS_ITS | Encounter Summary ---
Author Organization Healthcare Address [address] [place] [address] Care Team Providers Care Industrial Diamond Polisher Name Role Phone Pcp, No Primary Care Provider UnavailRanjana Castellanos DUNGEON MASTER Unavailable UnavailYola Bains Unavailable Unavailable Leonard Botello MD Primary Care Provider [phone] Yesenia Morrell DUNGEON MASTER Unavailable Unavailable Goldie Alan DUNGEON MASTER Unavailable UnavailGoldie Kong DUNGEON MASTER Unavailable UnavailRanjana Castellanos DUNGEON MASTER Unavailable UnavailMinnie Martinez RN Unavailable Unavailab le Encounter Details Date Type Department Care Team (Late st Contact Info) Description 04/04/2022 Lab Requisition [facility] [address] [place] [address] Ariel Lucas MD [address] [place] [address] End stage renal disease (CMS/HCC) [...] Differential Lab Routine End stage renal disease (CMS/HCC) Ordered: 04/04/2022 documented as of this encounter Procedures Procedure Name Priority Date/Time Associated Diagnosis Comments COMPREHENSIVE METABOLIC PANEL, PLASMA Routine 04/04/2022 1:30 PM EST End stage renal disease (CMS/HCC) documented in this encounter Results * (ABNORMAL) Comprehensive metabolic panel (04/04/2022 1:30 PM EST) Glucose, Plasma 167(H) 74 - 99 mg/dL 04/04/2022 2:29 PM EST [facility] BUN, Plasma 24(H) 8 - 23 mg/dL 04/04/2022 2:29 PM EST [facility] Creatinine, Plasma 5.86(H) 0.80 - 1.30 mg/dL 04/04/2022 2:29 PM [facility] BUN/Creatinine Ratio 4 04/04/2022 2:29 PM [facility] Sodium, Plasma 137 136 - 145 mmol/L 04/04/2022 2:29 PM [facility] Potassium, Plasma 3.8 3.7 - 4.8 mmol/L 04/04/2022 2:29 PM [facility] Comment:Reference range for Serum potassium is 0.2 to 0.5 mmol/L higher than Plasma range. Chloride, Plasma 100 97 - 107 mmol/L 04/04/2022 2:29 PM [facility] CO2, Plasma 25 22 - 29 mmol/L 04/04/2022 2:29 PM [facility] Anion Gap 12 6 - 16 mmol/L 04/04/2022 2:29 PM [facility] Total Calcium, Plasma 8.8(L) 8.9 - 10.2 mg/dL 04/04/2022 2:29 PM [facility] Total Protein 7.9 6.3 - 7.9 g/dL 04/04/2022 2:29 PM [facility] Albumin, Plasma 3.4(L) 3.5 - 5.2 g/dL 04/04/2022 2:29 PM [facility] AST, Plasma 20 19 - 48 U/L 04/04/2022 2:29 PM [facility] ALT, Plasma <5(L) 11 - 41 U/L 04/04/2022 2:29 PM [facility] Alkaline Phosphatase, Plasma 72 40 - 115 U/L 04/04/2022 2:29 PM [facility] Total Bilirubin, Plasma 0.4 0.2 - 1.1 mg/dL 04/04/2022 2:29 PM [facility] eGFRcr 10.1 mL/min/1.7 3m*2 04/04/2022 2:29 PM [facility] Comment: Reported eGFRcr in mL/min/1.73m2 is based the CKD-EPI 2021 equation that does not use a race coefficient. Effective 10/13/21 our laboratory changed the eGFR calculation to the CKD-EPI 2021 equation from the previously reported eGFR, based on the MDRD equation. 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 12/07/2022 COVID-19 Rule-Out 04/14/2023 04/14/2023 04/14/2023 8:45 PM EST documented as of this encounter Care Teams Industrial Diamond Polisher Relationship Specialty Start Date End Date Pcp, No [address] [place] [address] PCP - General Family Medicine 09/16/21 06/07/22 Leonard Botello MD [address] [facility] [address] [place] [address] PCP - General Family Medicine 06/08/22 Ranjana Elias LPN VALUE-[employer]ED [place] [address] TCM Nurse 03/25/22 04/18/22 [place] [address] Room Inspector Mechanical Energy Engineer 04/12/22 05/05/22 Yesenia Morrell LPN VALUE-[employer]ED [place] [address] TCM Nurse 07/29/22 08/04/22 Goldie Alan LPN VALUE-BASED TRANSFORMATION PROGRAM TCM Nurse Internal Medicine 08/10/22 08/11/22 Goldie Alan LPN VALUE-BASED TRANSFORMATION PROGRAM TCM Nurse Internal Medicine 08/17/22 09/16/22 Ranjana Elias LPN VALUE[employer] [place] [address] TCM Nurse 01/13/23 02/08/23 Minnie Penn, RN CH-VASCULAR & INTERVENTIONAL RADIOLOGY Registered Nurse 10/01/24 10/01/24 documented as of this encounter
--- OUTSIDE RECORDS SUMMARY | 2024-11-20 22:30 | XMS_ITS | Encounter Summary ---
Author Organization Healthcare Address [address] [place] [address] Care Team Providers Care Dressage Judge Name Role Phone Leonard Botello MD Primary Care Provider [phone] Encounter Details Date Type Department Care Team [...] time in the past 12 m [facility], were you homeless or living in a [...] drink first t hossein in the morning (EYE-DIRECTOR OF SALES MARKETING) to steady your nerves or to get rid of a hangover? 0 06/25/2023 CAGE Questionnaire Score 0 024 Utilities Answer Date Recorded In the past 12 months has th e CME, gas, oil, or water company threatened to [...] (Past 1 Month) No 8:00 PM Nelli Redmond RN 2. Non-Specific Active Suici taylor Thoughts (Past 1 Month) No 10/17/2024 8:00 PM Nelli Redmond, TRISTIN 3. Active Suicidal Ideation with any Methods (Not Plan) Without Intent to Act (Past 1 Month) No 10/17/2024 8:00 PM Karime Redmond, TRISTIN 4. Active Suicidal Ideation with Some Intent to Act, Without Specific Plan (Past 1 Month) No 10/17/2024 8:00 PM Karime Redmond RN 5. Active Suicidal Ideation with Specific Plan and Intent (Past 1 Month) No 10/17/2024 8:00 PM Nelli Redmond, TRISTIN 6. Suicidal Behavior (Lifetime) No 8:00 PM Nelli Redmond RN documented as of this encounter Mental [...] documented as of this encounter Care Teams Dressage Judge Relationship Specialty Start Date End Date Leonard Botello MD [address] [phone] PCP - General Family Medicine 06/08/22 documented as of this encounter
--- OUTSIDE RECORDS SUMMARY | 2024-11-20 22:30 | XMS_ITS | Encounter Summary ---
Author Organization Healthcare Address [address] [place] [address] Care Team Providers Care Material Handling Warehouse Supervisor Name Role Phone Leonard Botello MD Primary Care Provider [phone] Encounter Details Date Type Department Care Team [...] any time in the past 12 m [facility], were you homeless or [...] drink first t hossein in the morning (EYE-OBEDIENCE TRAINER) to steady your nerves or to get rid of a hangover? 0 06/25/2023 CAGE Questionnaire Score 0 024 Utilities Answer Date Recorded In the past 12 [address] has [address] e [address], gas, oil, or water company threatened to [...] documented as of this encounter Care Teams Material Handling Warehouse Supervisor Relationship Specialty Start Date End Date Leonard Botello MD [address] [facility] [address] [place] [address] PCP - General Family Medicine 06/08/22 documented as of this encounter
--- OUTSIDE RECORDS SUMMARY | 2024-11-20 22:30 | XMS_ITS | Encounter Summary ---
Author Organization Healthcare Address [address] [place] [address] Care Team Providers Care Cocoa Milling Machine Operator Name Role Phone Leonard Botello MD Primary Care Provider [phone] Encounter Details Date Type Department Care Team [...] in the past 12 m [facility], were you homeless or living in [...] drink first t hossein in the morning (EYE-KEY ATTENDANT) to steady your nerves or to get rid of a hangover? 0 06/25/2023 CAGE Questionnaire Score 0 024 Utilities Answer Date Recorded In the past 12 months has th e [employer], gas, oil, or water company threatened to [...] 1 Month) No 025 8:00 PM Nelli Redmond RN 2. Non-Specific Active Suici taylor Thoughts (Past 1 Month) No 10/18/2024 8:00 PM Nelli Redmond, TRISTIN 3. Active Suicidal Ideation with any Methods (Not Plan) Without Intent to Act (Past 1 Month) No 10/18/2024 8:00 PM Karime Redmond, TRISTIN 4. Active Suicidal Ideation with Some Intent to Act, Without Specific Plan (Past 1 Month) No 10/18/2024 8:00 PM Karime Redmond RN 5. Active Suicidal Ideation with Specific Plan and Intent (Past 1 Month) No 10/18/2024 8:00 PM Nelli Redmond, TRISTIN 6. Suicidal [...] documented as of this encounter Care Teams Cocoa Milling Machine Operator Relationship Specialty Start Date End Date Leonard Botello MD [address] [id number] PCP - General Family Medicine 06/08/22 documented as of this encounter
--- OUTSIDE RECORDS SUMMARY | 2024-11-20 22:30 | XMS_ITS | Encounter Summary ---
Author Organization Healthcare Address [address] [place] [address] Care Team Providers Care Talent Solutions Manager Name Role Phone Leonard Botello MD Primary Care Provider [phone] Encounter Details Date Type Department Care Team [...] time in the past 12 m [facility], were you homeless or living in [...] drink first t hossein in the morning (EYE-HOSPICE MASSAGE THERAPIST) to steady your nerves or to get rid of a hangover? 0 06/25/2023 CAGE Questionnaire Score 0 024 Utilities Answer Date Recorded In the past 12 months has th e [employer], gas, oil, or water company threatened to [...] Author Yes 09/29/2021 3:17 PM EDT Mario iKm A * Calculated C-SSRS Risk Score (Lifetime/Recent) Answer Date of Assessment Author No Risk Indicated 10/11/2024 8:00 PM EDT Jagruti Carri * Question Answer Date of Assessment Author 1. Wish to be (Past 1 Month) No 025 8:00 PM EDT Jagruti Carri 2. Non-Specific Active Suici taylor Thoughts (Past 1 Month) No 10/11/2024 8:00 PM EDT Jagruti, Carri 3. Active Suicidal Ideation with any Methods (Not Plan) Without Intent to Act (Past 1 Month) No 10/11/2024 8:00 PM EDT Jagruti Carri 4. Active Suicidal Ideation with Some Intent to Act, Without Specific Plan (Past 1 Month) No 10/11/2024 8:00 PM EDT Jagruti Carri 5. Active Suicidal Ideation with Specific Plan and Intent (Past 1 Month) No 10/11/2024 8:00 PM EDT Jagruti, Carri 6. Suicidal Behavior (Lifetime) No 8:00 [...] documented as of this encounter Care Teams Talent Solutions Manager Relationship Specialty Start Date End Date Leonard Botello MD [address] [address] PCP - General Family Medicine 06/08/22 documented as of this encounter
--- OUTSIDE RECORDS SUMMARY | 2024-11-20 22:30 | XMS_ITS | Encounter Summary ---
Author Organization Healthcare Address [address] [place] [address] Care Team Providers Care Respiratory Care Faculty Name Role Phone Leonard Botello MD Primary Care Provider [phone] Encounter Details Date Type Department Care Team [...] time in the past 12 m [facility], were you homeless or living [...] drink first t hossein in the morning (EYE-CONTENT DEVELOPMENT MANAGER) to steady your nerves or to get rid of a hangover? 0 06/25/2023 CAGE Questionnaire Score 0 024 Utilities Answer Date Recorded In the past 12 months has th e [employer], gas, oil, or water company threatened to [...] documented as of this encounter Care Teams Respiratory Care Faculty Relationship Specialty Start Date End Date Leonard Botello MD 2[address] [facility] [address] [place] [address] PCP - General Family Medicine 06/08/22 documented as of this encounter
--- OUTSIDE RECORDS SUMMARY | 2024-11-20 22:30 | XMS_ITS | Encounter Summary ---
Author Organization Healthcare Address [address] [place] [address] Care Team Providers Care Classified Advertising Clerk Name Role Phone Leonard Botello MD Primary Care Provider [phone] Encounter Details Date Type Department Care Team [...] time in the past 12 m [facility], were you homeless or living in [...] drink first t hossein in the morning (EYE-MULTI SHARE PROGRAM COORDINATOR) to steady your nerves or to get rid of a hangover? 0 06/25/2023 CAGE Questionnaire Score 0 024 Utilities Answer Date Recorded In the past 12 months has th e [employer], gas, oil, or water company threatened to [...] documented as of this encounter Care Teams Classified Advertising Clerk Relationship Specialty Start Date End Date Leonard Botello MD 2[address] [facility] [address] [place] [address] PCP - General Family Medicine 06/08/22 documented as of this encounter
[2024-11-20 22:43] LABS: Hematocrit 23.3 % (42.0-52.0); Hemoglobin 7.8 g/dL (14.1-18.0); Immature Granulocytes % 1.6 %; Mean Corpuscular HGB Conc 33.5 g/dL (31.8-35.4); Mean Corpuscular Hemoglobin 31.8 pg (27.0-31.2); Mean Corpuscular Volume 95.1 fl (80-94); Nucleated Red Blood Cells % 0 %; Platelet Count 176 K/mm3 (142-424); Red Blood Count 2.45 M/mm3 (4.60-6.20); Red Cell Distribution Width-SD 50.6 fL; White Blood Count 9.0 K/mm3 (4.8-10.8)
== END 2024-11-20 23:59 | disposition home or self-care (01) ==
LOC: LAB.DROPOF 22:27
PROVIDERS: PCP Nurse Practitioner Family; Visit Provider Nurse Practitioner Family
DX: D64.9 Anemia, unspecified (principal)
CPT/HCPCS: 85025

== ENCOUNTER 2024-12-19 15:05 | Outpatient (CLI) | payer MEDICARE, MEDICAID, SELFPAY ==
--- OUTSIDE RECORDS SUMMARY | 2024-09-30 15:29 | XMS_ITS | Encounter Summary ---
Author Organization Healthcare Address [address] [place] [address] Care Team Providers Care Sky Line Yarder Name Role Phone Leonard Botello MD Primary Care Provider [phone] Minnie Penn RN Unavailable Unavailab le Reason for Visit * Reason Comments Medical Evaluation * Auth/Cert (Routine) Specialty Diagnoses / Procedures Referred By Contpatria t Referred To Contact Diagnoses ESRD (end stage renal disease) Noncompliance by refusing service Tana Wooten MD [address] [place] [address] Phone: tel: fax: [facility] [address] [place] [address] Phone: tel: Referral ID Status Reason Start Date Expiration Date Visits Re quested Visits Authorized [id number] 1 1 Encounter Details Date Type Department Care Team (Latest Contact Info) Description 09/30/2024 3:29 PM EDT - 10/21/2024 3:10 PM EDT Hospital Encounter [facility] [address] [place] [address] Lesvia Adrian MD [address] [place] [address] Tana Wooten MD [address] [place] [address] Leda Gaitan MD [address] [place] [address] Lamont Brumfield MD [address] [place] [address] Jeannie Valle MD [address] [place] [address] ESRD (end stage renal disease) ([facility]) (Primary Dx); Noncompliance by refusing service; ESRD (end stage renal disease) on dialysis ([facility]); Declining functional status Discharge Disposition: Longterm Facility Social History Tobacco Use Types Packs/Day [...] [facility] you [facility] or living in a detention (including now)? 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-LOFT RIGGER) to steady your nerves or to get [...] Author No 09/29/2021 3:17 PM EDT Mario iKmh A * Are you blind or do you have serious difficulty seeing, even when wearing glasses? Answer Date of Assessment Author Yes 09/29/2021 3:17 PM EDT Julio R uth A * Do you have serious difficulty walking or climbing stairs? Answer Date of Assessment Author Yes 09/29/2021 3:17 PM EDT Mario Kim uth A * Do you have serious [...] 10/21/2024 8:29 AM GISSELT Jane Dill RN 3. Active Suicidal Ideation [...] Behavior (Lifetime) No 8:29 AM Jane Santillan RN documented as of this encounter Mental [...] Infection Flowsheets (Taken 10/20/2024 1226 by April Merida RN) Infection Prevention: hand hygiene promoted rest/sleep [...] needs identified Patient/Family Anticipated Services at Transition: halfway Patient/Family Anticipates Transition to: long-term care facility Taken 10/21/2024 0914 by Birdie Damico RN Current Discharge Risk: chronically ill cognitively impaired Patient's Choice of Community Agency(s): [facility] Problem: Skin Injury Risk Increased Goal: Skin [...] Support Wellbeing and Self-Management Success Flowsheets (Taken 10/20/20241225 by April Merida, RN) Supportive Measures: active [...] Safety Flowsheets Taken 10/21/2024 1312 by Jane Dlil Behavior Management: behavioral plan developed Taken 10/20/20241999 [...] PCP name and Address: Leonard Botello MD [address] [place] [id number] Referring provider name and address: No referring provider defined for this encounter. Chief Concern, Brief History of Present Illness, and Hospital Course Per H and P; 64 y.o. male with past history of ESRD on HD MWF, T2DM, HTN, chronic HFrEF, PAD, HLD, IDD/dementia, depression/anxiety, insomnia, chronic HCV, DM foot ulcer c/b OM s/p bilateral transmetarsal amputation, and debility sent from his [facility] to ED for medical evaluation after refusing care. Patient is extremely [place] and not wearing hearing aids limiting exam, therefore history obtained from chart review and Mariel (#[phone]) at his [facility]. Unable to reach his legal guardian and brother, Chris Fernandez, at #[phone]. She reports that patient transferred a week ago to [facility] after residing in a custodial for the past year with an increased level of assist. Since arriving patient has been refusing dialysis, to eat, participate, or take his medications. Earlier todayhe missed HD, last session 3 days ago on 09/27/2024. The [facility] believes he needs a higher level of [...] ESRD (end stage renal disease) on dialysis ([facility]) Essential (primary) hypertension Type 2 diabetes mellitus with chronic kidney disease on chronic dialysis ([facility]) Wears hearing aid in both ears At high risk for falls Insomnia, unspecified Chronic combined systolic (congestive) and diastolic (congestive) heart failure (CMS/HCC) Dementia ([facility]/H[facility]) Chronic hepatitis C without hepatic coma ([facility]) Arterial insufficiency ([facility]) Gastroesophageal reflux disease without esophagitis Mixed hyperlipidemia Anxiety and depression Mild intellectual disabilities Sensorineural hearing loss, bilateral * (Principal) Declining functional status History of transmetatarsal amputation of foot ([facility]) Electrolyte and fluid disorder Anemia in chronic kidney disease (CODE) 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 male with past history of ESRD on HD MWF, T2DM, HTN, chronic HFrEF, PAD, HLD, IDD/dementia, depression/anxiety, insomnia, chronic HCV, DM foot ulcer c/b OM s/p bilateral transmetarsal amputation, and debility sent from his [facility] to ED for medical evaluationafter refusing care. Declining functional status - Transferred to [facility] a week ago and since arrival refusing HD, to eat, participate, or take medications - sent to ED for medical evaluation and need for higher level of assist/unable to care for self/non-compliance - afebrile, VSS, no acute complaints PLAN - PT/OT consult re: placement - legal guardian is his brother, Chris Fernandez, #[phone] (not answering calls since patient admission) Essential (primary) hypertension - increased carvedilol to 25 mg twice daily, nifedipine XL 60 mg daily (hold for BP <120/80 on dialysis days) At high risk for falls - wheelchair dependent, fall precautions ESRD (end stage renal disease) on dialysis ([facility]) - HD (MWF) - renally dose meds based on EGFR - strict I/O, daily weight Electrolyte and fluid disorder Hyponatremia Chronic kidney disease-mineral and bone disorder (CKD-MBD) - continue Renvela 800 mg TID with meals Anemia in chronic kidney disease (CODE) - Hgb stable, transfuse to keep >7 Type 2 diabetes mellitus with chronic kidney disease on chronic dialysis ([facility]) - last A1c 6.3 PLAN - will dc SSI given minimal Insulin need Dementia ([facility]) - Psych recommended; Asenapine 3.8 mg daily [...] bilateral transmetarsal amputation Dispo : Discharge to [facility] today and transportation to/from DC to outpatient HD arranged per CM. Getting [...] Note Mundo Fernandez 64 y.o. male CSN: [id number] Admission: 09/30/2024 3:29 PM Primary Problem: Declining functional status Primary Director Of Retail Merchandising: Primary Caregiver: Private caregiver Assistance Available at Discharge: Current Outpatient/Agency/Support Group: clinic(s), DME Availability of Care Givers (#Hours): 24 hours Family/Director Of Retail Merchandising(s) Willingness Assessed to care for patient at home: Yes Family/Director Of Retail Merchandising(s) Readiness Assessed to care for patient at home: Yes Housing Circumstances-Z Codes: Housing Circumstances (select all that apply): Low Income (101-300% Federal Poverty Guidlines) - Z596 Patient Referred to Financial or Community Resources: Discharge Facility/Level of Care Needs: Discharge Facility/Level of Care Needs: 3-Longterm Facility Patient's Choice of Community Agency(s): Patient's Choice of Community Agency(s): [facility] Patient/Family Anticipated Services at Transition: Patient/Family Anticipated Services at Transition: halfway DME/Equipment Needed after Discharge: Equipment Currently Used [...] with brother and guardian, Chris Fernandez. Follow-up: [facility] [phone] [address] [address] Go on 10/21/2024 [facility] ([address] D-TI) [phone] Online [address] [place] [address] Go on 10/23/2024 First HD session at [...] to discharge today. Accepted for LTC by [facility]. Patient brother, legal guardian, Chris Fernandez aware and agrees with discharge and facility. Patient to receive HD (3.5 hr session) today at 0900 before discharge. Beginning Monday10/23/24 patient is scheduled to receive HD at 10:20 every Monday, Monday, and Monday. Facility staff working on setting up transportation to and from HD sessions. Krystyna barrera bedside worm picker today at 1400. Call report [phone] CM will fax DCS [phone] Escribe controlled meds only to [facility]. CM will continue to follow for dc planning needs. Birdie Damico, RN * Consults - Gabriele Vanegas - 10/20/2024 5:30 PM EDT Pastoral Care Note Music Executive visited with Aakash at bedside after consulting with nurse. Aakash's nurse shared he has been down and discouraged with being in the hospital so long. Aakash shared with Music Executive that he wants to go to another hospital. Aakash has difficulty hearing, Music Executive was speaking loudly but Aakash respondedwell at first then appeared confused, he pushed call button for nurse. He was able to hear nurse oncall button and the tv but appeared confused or possible scared by Music Executive. Music Executive then excused himself, Aakash expressed appreciation. Awa will follow up and consult with other [...] Ongoing, Progressing Intervention: Promote Activity and Functional Door Flowsheets (Taken 10/20/2024 1226) Activity Assistance Provided: [...] from the original note were not included. [facility] Inpatient Progress Note Patient: Mundo [...] Assessment and Plan: Aakash Fernandez is [place] 64 y.o. male with past history of ESRD on HD MWF, T2DM, HTN, chronic HFrEF, PAD, HLD, IDD/dementia, depression/anxiety, insomnia, chronic HCV, DM foot ulcer c/b OM s/p bilateral transmetarsal amputation, and debility sent from his [facility] to ED for medical evaluationafter refusing care. Declining functional status - Transferred to [facility] a week ago and since arrival refusing HD, to eat, participate, or take medications - sent to ED for medical evaluation and need for higher level of assist/unable to care for self/non-compliance - afebrile, VSS, no acute complaints PLAN - PT/OT consult re: placement - legal guardian is his brother, Chris Fernandez, #[phone] (not answering calls since patient admission) Essential (primary) hypertension - increased carvedilol to 25 mg twice daily, nifedipine XL 60 mg daily (hold for BP <120/80 on dialysis days) At high risk for falls - wheelchair dependent, fall precautions ESRD (end stage renal disease) on dialysis ([facility]) - HD (MWF) - renally dose meds based on EGFR - strict I/O, daily weight Electrolyte and fluid disorder Hyponatremia Chronic kidney disease-mineral and bone disorder (CKD-MBD) - continue Renvela 800 mg TID with meals Anemia in chronic kidney disease (CODE) - Hgb stable, transfuse to keep >7 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) - last A1c 6.3 PLAN - will [...] Dispo : pending placement. Per CM- at [facility] indicates patient has been approved for LTC pending [facility] chair. Primary CM/RN will need to arrange transportation to [facility] on Mondayand transportation to/from DC to outpatient HD will have to be arranged as well. Pt [facility] need [facility] getHD [facility] on Monday and then start outpatient HD on 10/23. [1] Current Facility-Administered Medications: acetaminophen (Tylenol) tablet 650 mg, 650 mg, Oral, q6h PRN, Lala Valdes B, MAGISTRATE ASSISTANT, 650 mg at 10/18/24 2100 aspirin chewable tablet 81 mg, 81 mg, Oral, Daily, Lala Valdes MAGISTRATE ASSISTANT, 81 mg at 10/20/24919 atorvastatin (Lipitor) tablet 40 mg, 40 mg, Oral, Nightly, Lala Valdes MAGISTRATE ASSISTANT, 40 mg at 10/19/242013 bisacodyl (Dulcolax) EC tablet 10 mg, 10 mg, Oral, Daily PRN, Lala Valdes, MAGISTRATE ASSISTANT, 10 mg at 10/17/24 0843 cadexomer iodine (Iodosorb) 0.9 % gel, , Topical, Daily, Tana Wooten MD, Given at 10/19/24 0822 carvedilol (Coreg) tablet 25 mg, 25 mg, Oral, BID, Leda Gaitan MD, 25 mg at 10/20/24919 clopidogrel (Plavix) tablet 75 mg, 75 mg, Oral, Daily, Lala Valdes, MAGISTRATE ASSISTANT, 75 mg at 10/20/24919 glucose (Glutose) 40 % oral gel 15-30 grams of glucose, 15-30 grams of glucose, Sublingual, q15 minPRN OR dextrose 10 % (D10W) bolus 125 mL, 125 mL, Intravenous, q15 min PRN OR dextrose 10 %(D10W) bolus 250 mL, 250 mL, Intravenous, q15 min PRN OR glucagon (human recombinant) injection1 mg, 1 mg, Intramuscular, q15 min PRN, Lala Valdes, MAGISTRATE ASSISTANT divalproex sprinkle (Depakote Sprinkle) DR capsule 250 mg, 250 mg, Oral, BID, Lala Valdes MAGISTRATE ASSISTANT,250 mg at 10/20/24919 heparin (porcine) injection 5,000 Units, 5,000 Units, Subcutaneous, q8h RAFAT, Lala Valdes MAGISTRATE ASSISTANT, 5,000 Units at 10/19/242014 melatonin tablet 3 mg, 3 mg, Oral, Nightly, Lala Valdes, MAGISTRATE ASSISTANT, 3 mg at 10/19/242013 NIFEdipine XL (Procardia XL) 24 hr tablet 60 mg, 60 mg, Oral, Daily, Leda Gaitan MD, 60 mg at 10/20/24919 polyethylene glycol (Miralax) packet 17 g, 17 g, Oral, BID, Lucio, Gitana B, MAGISTRATE ASSISTANT, 17 g at 10/20/24919 senna (Senokot) tablet 17.2 mg, 17.2 mg, Oral, Nightly, Lucio, Gitana B, MAGISTRATE ASSISTANT, 17.2 mg at 10/19/242055 sertraline (Zoloft) tablet 75 mg, 75 mg, Oral, Daily, Lucio, Gitana B, MAGISTRATE ASSISTANT, 75 mg at 10/20/24 0920 Insert peripheral IV, , , Once AND Saline lock IV, , , Once AND sodium chloride 0.9 % flush10 mL, 10 mL, Intravenous, q12h, 10 mL at 10/13/24 175 AND sodium chloride 0.9 % flush 10 mL, 10 mL, Intravenous, PRN, Lucio, Gitana B, MAGISTRATE ASSISTANT traZODone (Desyrel) tablet 100 mg, 100 mg, Oral, Nightly, Lucio, Gitana B, MAGISTRATE ASSISTANT, 100 mg at 10/19/242013 Facility-Administered Medications Ordered in Other Encounters: lidocaine-EPINEPHrine (PF) (Xylocaine W/EPI) 1 %-1:659248 injection - Pyxis Override Pull, , , , lidocaine-EPINEPHrine (PF) (Xylocaine W/EPI) 1 %-1:505560 injection - Pyxis Override Pull, , , [...] Ongoing, Progressing Intervention: Promote Activity and Functional Door Flowsheets (Taken 10/19/20242139) Activity Assistance Provided: assistance, 2 people Self-Care Promotion: BADL personal objects within reach BAD personal routines maintained Problem: Infection Goal: Absence [...] Progressing Intervention: Optimize Mobility Flowsheets (Taken 10/19/2024 2140) Activity Management: activity adjusted per tolerance * Progress Notes - Jeannie Valle MD - 10/19/2024 2:56 PM EDT Images from the original note were not included. [facility] Medicine Inpatient Progress Note Patient: Mundo [...] Assessment and Plan: Aakash Fernandez is [place] 64 y.o. male with past history of ESRD on HD MWF, T2DM, HTN, chronic HFrEF, PAD, HLD, IDD/dementia, depression/anxiety, insomnia, chronic HCV, DM foot ulcer c/b OM s/p bilateral transmetarsal amputation, and debility sent from his [facility] to ED for medical evaluationafter refusing care. Declining functional status - Transferred to [facility] a week ago and since arrival refusing HD, to eat, participate, or take medications - sent to ED for medical evaluation and need for higher level of assist/unable to care for self/non-compliance - afebrile, VSS, no acute complaints PLAN - PT/OT consult re: placement - legal guardian is his brother, Chris Fernandez, #[phone] (not answering calls since patient admission) Essential (primary) hypertension - increased carvedilol to 25 mg twice daily, nifedipine XL 60 mg daily (hold for BP <120/80 on dialysis days) At high risk for falls - wheelchair dependent, fall precautions ESRD (end stage renal disease) on dialysis ([facility]) - HD (MWF) - renally dose meds based on EGFR - strict I/O, daily weight Electrolyte and fluid disorder Hyponatremia Chronic kidney disease-mineral and bone disorder (CKD-MBD) - continue Renvela 800 mg TID with meals Anemia in chronic kidney disease (CODE) - Hgb stable, transfuse to keep >7 Type 2 diabetes mellitus with chronic kidney disease on chronic dialysis ([facility]) - last A1c 6.3 PLAN - will dc SSI given minimal Insulin need Dementia ([facility]) - Psych recommended; Asenapine 3.8 mg daily [...] melatonin 3 mg at bedtime Arterial insufficiency ([facility]) - continue aspirin 81 mg daily, clopidogrel [...] systolic (congestive) and diastolic (congestive) heart failure ([facility]) - ECHO 06/27/2022: EF 45%, abnormal diastolic dysfunction - strict I/O, 2 L fluid restriction, cardiac/renal/CCHO2 diet Chronic hepatitis C without hepatic coma ([facility]) - HCV RNA PCR not detected 07/13/2023 History of transmetatarsal amputation of foot ([facility]) - chronic OM 2/2 DM foot ulcers s/p bilateral transmetarsal amputation Dispo : pending placement. Per CM- at [facility] indicates patient has been approved for LTC pending [facility] chair. Primary CM/RN will need to arrange transportation to [facility] on Mondayand transportation to/from DC to outpatient HD will have to be arranged as well. Pt may need to getHD at [facility] on Monday and then start outpatient HD on 10/23. [1] Current Facility-Administered Medications: acetaminophen (Tylenol) tablet 650 mg, 650 mg, Oral, q6h PRN, Lala Valdes, MAGISTRATE ASSISTANT, 650 mg at 10/18/24 2100 aspirin chewable tablet 81 mg, 81 mg, Oral, Daily, Lala Valdes MAGISTRATE ASSISTANT, 81 mg at 10/19/24 0820 atorvastatin (Lipitor) tablet 40 mg, 40 mg, Oral, Nightly, Lala Valdes, MAGISTRATE ASSISTANT, 40 mg at 10/18/24 2100 bisacodyl (Dulcolax) EC tablet 10 mg, 10 mg, Oral, Daily PRN, Lala Valdes, MAGISTRATE ASSISTANT, 10 mg at 10/17/24 0843 cadexomer iodine (Iodosorb) 0.9 % gel, , Topical, Daily, Tana Wooten MD, Given at 10/19/24 0822 carvedilol (Coreg) tablet 25 mg, 25 mg, Oral, BID, Leda Gaitan MD, 25 mg at 10/19/24 0820 clopidogrel (Plavix) tablet 75 mg, 75 mg, Oral, Daily, Lala Valdes, MAGISTRATE ASSISTANT, 75 mg at 10/19/24 0820 glucose (Glutose) 40 % oral gel 15-30 grams of glucose, 15-30 grams of glucose, Sublingual, q15 minPRN OR dextrose 10 % (D10W) bolus 125 mL, 125 mL, Intravenous, q15 min PRN OR dextrose 10 %(D10W) bolus 250 mL, 250 mL, Intravenous, q15 min PRN OR glucagon (human recombinant) injection1 mg, 1 mg, Intramuscular, q15 min PRN, Lala Valdes, MAGISTRATE ASSISTANT divalproex sprinkle (Depakote Sprinkle) DR capsule 250 mg, 250 mg, Oral, BID, Lala Valdes, MAGISTRATE ASSISTANT,250 mg at 10/19/24 0820 heparin (porcine) injection 5,000 Units, 5,000 Units, Subcutaneous, q8h RAFAT, Laith Valdesana B, MAGISTRATE ASSISTANT, 5,000 Units at 10/19/24 1323 melatonin tablet 3 mg, 3 mg, Oral, Nightly, Lala Valdes, MAGISTRATE ASSISTANT, 3 mg at 10/18/24 2100 NIFEdipine XL (Procardia XL) 24 hr tablet 60 mg, 60 mg, Oral, Daily, Leda Gaitan MD, 60 mg at 10/19/24 0820 polyethylene glycol (Miralax) packet 17 g, 17 g, Oral, BID, Lala Valdes, MAGISTRATE ASSISTANT, 17 g at 10/19/24 0820 senna (Senokot) tablet 17.2 mg, 17.2 mg, Oral, Nightly PRN, Lala Valdes, MAGISTRATE ASSISTANT, 17.2 mg at 10/16/24 2030 sertraline (Zoloft) tablet 75 mg, 75 mg, Oral, Daily, Lala Valdes, MAGISTRATE ASSISTANT, 75 mg at 10/19/24 0821 Insert peripheral IV, , , Once AND Saline lock IV, , , Once AND sodium chloride 0.9 % flush10 mL, 10 mL, Intravenous, q12h, 10 mL at 10/13/24 1759 AND sodium chloride 0.9 % flush 10 mL, 10 mL, Intravenous, PRN, Lala Valdes B, MAGISTRATE ASSISTANT traZODone (Desyrel) tablet 100 mg, 100 mg, Oral, Nightly, Lala Valdes B, MAGISTRATE ASSISTANT, 100 mg at 10/18/24 2101 Facility-Administered Medications Ordered in Other Encounters: lidocaine-EPINEPHrine (PF) (Xylocaine W/EPI) 1 %-1:184881 injection - Pyxis Override Pull, , , , lidocaine-EPINEPHrine (PF) (Xylocaine W/EPI) 1 %-1:287937 injection - Pyxis Override Pull, , , [...] Ongoing, Progressing Intervention: Promote Activity and Functional Door Flowsheets (Taken 10/19/2024 1154) Activity Assistance Provided: [...] Note Mundo Fernandez 64 y.o. male CSN: [id number] Admission: 09/30/2024 3:29 PM Primary Problem: Declining functional status Renal SW finalized pt's outpatient HD arrangements. Pt can start with [facility] on Oct [facility] and will need to arrive there at 10:20 AM for admission paperwork. See details below. HD letter emailed to primary CM to give to pt upon discharge. UPDATE: Primary CM/RN will need to arrange transportation to [facility] on Monday and transportation to/from DC to outpatient HD will have to be arranged as well. Pt may need to get HD at [facility] on Monday and then start outpatient HD on 10/23. SAMUEL Augustin Client Server Programmer * Progress Notes - Jeannie Valle MD - 10/18/2024 2:20 PM EDT Images from the original note were not included. [facility] Medicine Inpatient Progress Note Patient: Mundo [...] Assessment and Plan: Aakash Fernandez is [place] 64 y.o. male with past history of ESRD on HD MWF, T2DM, HTN, chronic HFrEF, PAD, HLD, IDD/dementia, depression/anxiety, insomnia, chronic HCV, DM foot ulcer c/b OM s/p bilateral transmetarsal amputation, and debility sent from his [facility] to ED for medical evaluationafter refusing care. Declining functional status - Transferred to [facility] a week ago and since arrival refusing HD, to eat, participate, or take medications - sent to ED for medical evaluation and need for higher level of assist/unable to care for self/non-compliance - afebrile, VSS, no acute complaints PLAN - PT/OT consult re: placement - legal guardian is his brother, Chris Fernandez, #[phone] (not answering calls since patient admission) Essential (primary) hypertension - increased carvedilol to 25 mg twice daily, nifedipine XL 60 mg daily (hold for BP <120/80 on dialysis days) At high risk for falls - wheelchair dependent, fall precautions ESRD (end stage renal disease) on dialysis ([facility]) - HD (MWF) - renally dose meds based on EGFR - strict I/O, daily weight Electrolyte and fluid disorder Hyponatremia Chronic kidney disease-mineral and bone disorder (CKD-MBD) - continue Renvela 800 mg TID with meals Anemia in chronic kidney disease (CODE) - Hgb stable, transfuse to keep >7 Type 2 diabetes mellitus with chronic kidney disease on chronic dialysis ([facility]) - last A1c 6.3 PLAN - will dc SSI given minimal Insulin need Dementia ([facility]) - Psych recommended; Asenapine 3.8 mg daily [...] melatonin 3 mg at bedtime Arterial insufficiency ([facility]) - continue aspirin 81 mg daily, clopidogrel [...] Dispo : pending placement. Per CM- at [facility] indicates patient has been approved for LTC pending [facility] chair. [facility] [phone] is requesting a CXR, TB clearence, Hepatitis B Total Core Antibody (HbcAb) [1] Current Facility-Administered Medications: acetaminophen (Tylenol) tablet 650 mg, 650 mg, Oral, q6h PRN, Lala Valdes B, MAGISTRATE ASSISTANT, 650 mg at 10/17/242012 aspirin chewable tablet 81 mg, 81 mg, Oral, Daily, Lala Valdes B, MAGISTRATE ASSISTANT, 81 mg at 10/18/24 1318 atorvastatin (Lipitor) tablet 40 mg, 40 mg, Oral, Nightly, Lala Valdes B, MAGISTRATE ASSISTANT, 40 mg at 10/17/242013 bisacodyl (Dulcolax) EC tablet 10 mg, 10 mg, Oral, Daily PRN, Lala Valdes B, MAGISTRATE ASSISTANT, 10 mg at 10/17/24 0843 cadexomer iodine (Iodosorb) 0.9 % gel, , Topical, Daily, Tana Wooten MD, Given at 10/18/24 1330 carvedilol (Coreg) tablet 25 mg, 25 mg, Oral, BID, Leda Gaitan MD, 25 mg at 10/18/24 1318 clopidogrel (Plavix) tablet 75 mg, 75 mg, Oral, Daily, Lala Valdes B, MAGISTRATE ASSISTANT, 75 mg at 10/18/24 1320 glucose (Glutose) [...] Intramuscular, q15 min PRN, Lala Valdes B, MAGISTRATE ASSISTANT divalproex sprinkle (Depakote Sprinkle) DR capsule 250 mg, 250 mg, Oral, BID, Lala Valdes, MAGISTRATE ASSISTANT,250 mg at 10/18/24 1318 heparin (porcine) injection 5,000 Units, 5,000 Units, Subcutaneous, q8h RAFAT, Lala Valdes MAGISTRATE ASSISTANT, 5,000 Units at 10/18/24 1333 melatonin tablet 3 mg, 3 mg, Oral, Nightly, Lala Valdes, MAGISTRATE ASSISTANT, 3 mg at 10/17/242013 NIFEdipine XL (Procardia XL) 24 hr tablet 60 mg, 60 mg, Oral, Daily, Leda Gaitan MD, 60 mg at 10/18/24 1318 polyethylene glycol (Miralax) packet 17 g, 17 g, Oral, BID, Lala Valdes, MAGISTRATE ASSISTANT, 17 g at 10/18/24 1317 senna (Senokot) tablet 17.2 mg, 17.2 mg, Oral, Nightly PRN, Lala Valdes, MAGISTRATE ASSISTANT, 17.2 mg at 10/16/24 2030 sertraline (Zoloft) tablet 75 mg, 75 mg, Oral, Daily, Lala Valdes, MAGISTRATE ASSISTANT, 75 mg at 10/18/24 1317 Insert peripheral IV, , , Once AND Saline lock IV, , , Once AND sodium chloride 0.9 % flush10 mL, 10 mL, Intravenous, q12h, 10 mL at 10/13/24 1759 AND sodium chloride 0.9 % flush 10 mL, 10 mL, Intravenous, PRN, Lala Valdes B, MAGISTRATE ASSISTANT traZODone (Desyrel) tablet 100 mg, 100 mg, Oral, Nightly, Lala Valdes, MAGISTRATE ASSISTANT, 100 mg at 10/17/242012 Facility-Administered Medications Ordered in Other Encounters: lidocaine-EPINEPHrine (PF) (Xylocaine W/EPI) 1 %-1:707081 injection - Pyxis Override Pull, , , [...] Ongoing, Progressing Intervention: Promote Activity and Functional Door Flowsheets (Taken 10/18/2024 1230) Activity Assistance Provided: [...] cerebral artery ESRD (end stage renal disease) ([facility]) Medications: Current Medications: Current Scheduled Medications[1] Current [...] bilateral transmetarsal amputation, and debility presented to [facility] on 09/30 after refusing care at his [facility]. Nephrology consulted for dialysis. Assessment: #ESRD on [...] from the original note were not included. [facility] Inpatient Progress Note Patient: Mundo Fernandez [...] Assessment and Plan: Aakash Fernandez [place] 64 y.o. male with past history of ESRD on HD MWF, T2DM, HTN, chronic HFrEF, PAD, HLD, IDD/dementia, depression/anxiety, insomnia, chronic HCV, DM foot ulcer c/b OM s/p bilateral transmetarsal amputation, and debility [facility] his [facility] ED for medical evaluationafter refusing care. Declining functional status - [facility] to [facility] a week ago and since arrival refusing HD, to eat, participate, or take medications - sent to ED for medical evaluation and need for higher level of assist/unable to care for self/non-compliance - afebrile, VSS, no acute complaints PLAN - PT/OT consult re: placement - legal guardian is his brother, Chris Fernandez, #[phone] (not answering calls since patient admission) Essential (primary) hypertension - increased carvedilol to 25 mg twice daily, nifedipine XL 60 mg daily (hold for BP <120/80 on dialysis days) At high risk for falls - wheelchair dependent, fall precautions ESRD (end stage renal disease) on dialysis ([facility]) - HD (MWF) - renally dose meds based on EGFR - strict I/O, daily weight Electrolyte and fluid disorder Hyponatremia Chronic kidney disease-mineral and bone disorder (CKD-MBD) - continue Renvela 800 mg TID with meals Anemia in chronic kidney disease (CODE) - Hgb stable, transfuse to keep >7 Type 2 diabetes mellitus with chronic kidney disease on chronic dialysis ([facility]/HCC) - last A1c 6.3 PLAN - will dc SSI given minimal Insulin need Dementia ([facility]) - Psych recommended; Asenapine 3.8 mg daily [...] melatonin 3 mg at bedtime Arterial insufficiency ([facility]/HCC) - continue aspirin 81 mg daily, clopidogrel [...] systolic (congestive) and diastolic (congestive) heart failure ([facility]/HCC) - ECHO 06/27/2022: EF 45%, abnormal diastolic dysfunction - strict I/O, 2 L fluid restriction, cardiac/renal/CCHO2 diet Chronic hepatitis C without hepatic coma ([facility]/HCC) - HCV RNA PCR not detected 07/13/2023 History of transmetatarsal amputation of foot ([facility]) - chronic OM 2/2 DM foot ulcers s/p bilateral transmetarsal amputation Dispo : pending placement. Per - at [facility] indicates patient has been approved for LTC pending [phone], TB clearence, Hepatitis B Total Core Antibody (HbcAb) [1] Current Facility-Administered Medications: acetaminophen (Tylenol) tablet 650 mg, 650 mg, Oral, q6h PRN, Lucio, Gitana B, MAGISTRATE ASSISTANT aspirin chewable tablet 81 mg, 81 mg, Oral, Daily, Lucio, Gitana B, MAGISTRATE ASSISTANT, 81 mg at 10/17/24 0843 atorvastatin (Lipitor) tablet 40 mg, 40 mg, Oral, Nightly, Lala Valdes, MAGISTRATE ASSISTANT, 40 mg at 10/16/24 2030 bisacodyl (Dulcolax) EC tablet 10 mg, 10 mg, Oral, Daily PRN, Lala Valdes, MAGISTRATE ASSISTANT, 10 mg at 10/17/24 0843 cadexomer iodine (Iodosorb) 0.9 % gel, , Topical, Daily, Tana Wooten MD, Given at 10/16/24 1313 carvedilol (Coreg) tablet 25 mg, 25 mg, Oral, BID, eLda Gaitan MD, 25 mg at 10/17/24 0843 clopidogrel (Plavix) tablet 75 mg, 75 mg, Oral, Daily, Lala Valdes, MAGISTRATE ASSISTANT, 75 mg at 10/17/24 0842 glucose (Glutose) 40 % oral gel 15-30 grams of glucose, 15-30 grams of glucose, Sublingual, q15 minPRN OR dextrose 10 % (D10W) bolus 125 mL, 125 mL, Intravenous, q15 min PRN OR dextrose 10 %(D10W) bolus 250 mL, 250 mL, Intravenous, q15 min PRN OR glucagon (human recombinant) injection1 mg, 1 mg, Intramuscular, q15 min PRN, Lala Valdes, MAGISTRATE ASSISTANT divalproex sprinkle (Depakote Sprinkle) DR capsule 250 mg, 250 mg, Oral, BID, Lala Valdes MAGISTRATE ASSISTANT,250 mg at 10/17/24 0843 heparin (porcine) injection 5,000 Units, 5,000 Units, Subcutaneous, q8h RAFAT, Lala Valdes, MAGISTRATE ASSISTANT, 5,000 Units at 10/17/24 1426 melatonin tablet 3 mg, 3 mg, Oral, Nightly, Lala Valdes MAGISTRATE ASSISTANT, 3 mg at 10/16/24 2030 NIFEdipine XL (Procardia XL) 24 hr tablet 60 mg, 60 mg, Oral, Daily, Leda Gaitan MD, 60 mg at 10/17/24 0843 polyethylene glycol (Miralax) packet 17 g, 17 g, Oral, BID, Lucio, Gitana B, MAGISTRATE ASSISTANT, 17 g at 10/17/24 0843 senna (Senokot) tablet 17.2 mg, 17.2 mg, Oral, Nightly PRN, Lucio, Gitana B, MAGISTRATE ASSISTANT, 17.2 mg at 10/16/24 2030 sertraline (Zoloft) tablet 75 mg, 75 mg, Oral, Daily, Lucio, Gitana B, MAGISTRATE ASSISTANT, 75 mg at 10/17/24 0842 Insert peripheral IV, , , Once AND Saline lock IV, , , Once AND sodium chloride 0.9 % flush10 mL, 10 mL, Intravenous, q12h, 10 mL at 10/13/24 1759 AND sodium chloride 0.9 % flush 10 mL, 10 mL, Intravenous, PRN, Lucio, Gitana B, MAGISTRATE ASSISTANT traZODone (Desyrel) tablet 100 mg, 100 mg, Oral, Nightly, Lucio, Gitana B, MAGISTRATE ASSISTANT, 100 mg at 10/16/24 2030 Facility-Administered Medications Ordered in Other Encounters: lidocaine-EPINEPHrine (PF) (Xylocaine W/EPI) 1 %-1:871865 injection - Pyxis Override Pull, , , , lidocaine-EPINEPHrine (PF) (Xylocaine W/EPI) 1 %-1:064351 injection - Pyxis Override Pull, , , , [2] No Known Allergies * Progress Notes - Birdie Damico RN - 10/17/2024 1:17 PM EDT Brooke, admissions liaison at [facility] indicates patient has been approved for LTC pending [facility] chair. [facility] [phone] is requesting a CXR, TB clearence,Hepatitis B [...] Identify and Manage Fall Risk Flowsheets (Taken 10/17/2024799) Safety Promotion/Fall Prevention: activity [...] Flowsheets (Taken 10/17/2024 1142) Current Outpatient/Agency/Support Group: [facility] Readmission Within the Last 30 Days: unable [...] Progressing Intervention: Promote Wound Healing Flowsheets (Taken 10/17/2024799) Sleep/Rest Enhancement: awakenings minimized consistent schedule promoted [...] ESRD (end stage renal disease) on dialysis ([facility]) Essential (primary) hypertension Type 2 diabetes mellitus with chronic kidney disease on chronic dialysis ([facility]) Wears hearing aid in both ears At high risk for falls Insomnia, unspecified Chronic combined systolic (congestive) and diastolic (congestive) heart failure ([facility]/H[facility]) Dementia ([facility]) Chronic hepatitis C without hepatic coma ([facility]) Arterial insufficiency ([facility]) Gastroesophageal reflux disease without esophagitis Mixed hyperlipidemia Anxiety and depression Mild intellectual disabilities Sensorineural hearing loss, bilateral History of transmetatarsal amputation of foot ([facility]) Electrolyte and fluid disorder Anemia in chronic kidney disease (CODE) Chronic kidney disease-mineral and bone disorder (CKD-MBD) 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 ESRD (end stage renal disease) ([facility]) Medications: Current Medications: Current Scheduled Medications[1] Current [...] bilateral transmetarsal amputation, and debility presented to [facility] on 09/30 after refusing care at his [facility]. Nephrology consulted for dialysis. Assessment: #ESRD on iHD - MWF at [facility] [address] Lucas - AccesS: ISAURO [...] Ongoing, Progressing Intervention: Promote Activity and Functional Door Flowsheets Taken 10/16/20242319 Self-Care Promotion: independence encouraged [...] Support Wellbeing and Self-Management Success Flowsheets (Taken 10/16/20240) Supportive Measures: active listening utilized self-care encouraged [...] Intervention: Minimize and Manage Hypoglycemia Flowsheets (Taken 10/16/20240) Hypoglycemia Management: blood glucose monitored Problem: Mobility [...] Device Care and Function Flowsheets (Taken 10/16/2024 1535) Medication Review/Management: medications reviewed Goal: Effective Tissue [...] Ongoing, Progressing Intervention: Promote Activity and Functional Door Flowsheets (Taken 10/16/2024 1535) Activity Assistance Provided: [...] Note Mundo Fernandez 64 y.o. male CSN: [id number] Admission: 09/30/2024 3:29 PM Primary Problem: Declining functional status CM received message from [facility] admissions liaison stating patient has been approved for admission pending getting an established HD chair. HD social welfare administrator made aware. HD referral sent to [facility] with tracking number [id number]. CM will continue to follow and will arrange discharge transportation when needed. Birdie Damico RN * Progress Notes - Jeannie Valle MD - 10/16/2024 1:22 PM EDT Images from the original note were not included. [facility] Inpatient Progress Note Patient: Mundo [...] Assessment and Plan: Aakash Fernandez is [place] 64 y.o. male with past history of ESRD on HD MWF, T2DM, HTN, chronic HFrEF, PAD, HLD, IDD/dementia, depression/anxiety, insomnia, chronic HCV, DM foot ulcer c/b OM s/p bilateral transmetarsal amputation, and debility [facility] to ED for medical evaluationafter refusing care. Declining functional status - [facility] to [facility] ago and since arrival refusing HD, to eat, participate, or take medications - sent to ED for medical evaluation and need for higher level of assist/unable to care for self/non-compliance - afebrile, VSS, no acute complaints PLAN - PT/OT consult re: placement - legal guardian is his brother, Chris Fernandez, #[phone] (not answering calls since patient admission) Essential (primary) hypertension - increased carvedilol to 25 mg twice daily, nifedipine XL 60 mg daily (hold for BP <120/80 on dialysis days) At high risk for falls - wheelchair dependent, fall precautions ESRD (end stage renal disease) on dialysis ([facility]) - HD (MWF) - renally dose meds based on EGFR - strict I/O, daily weight Electrolyte and fluid disorder Hyponatremia Chronic kidney disease-mineral and bone disorder (CKD-MBD) - continue Renvela 800 mg TID with meals Anemia in chronic kidney disease (CODE) - Hgb stable, transfuse to keep >7 Type 2 diabetes mellitus with chronic kidney disease on chronic dialysis ([facility]) - last A1c 6.3 PLAN - will dc SSI given minimal Insulin need Dementia ([facility]) - Psych recommended; Asenapine 3.8 mg daily [...] melatonin 3 mg at bedtime Arterial insufficiency ([facility]) - continue aspirin 81 mg daily, clopidogrel [...] systolic (congestive) and diastolic (congestive) heart failure ([facility]) - ECHO 06/27/2022: EF 45%, abnormal diastolic dysfunction - strict I/O, 2 L fluid restriction, cardiac/renal/CCHO2 diet Chronic hepatitis C without hepatic coma ([facility]) - HCV RNA PCR not detected 07/13/2023 History of transmetatarsal amputation of foot ([facility]) - chronic OM 2/2 DM foot ulcers s/p bilateral transmetarsal amputation Dispo : pending placement. [1] Current Facility-Administered Medications: acetaminophen (Tylenol) tablet 650 mg, 650 mg, Oral, q6h PRN, Lala Valdes B, MAGISTRATE ASSISTANT alteplase (Cathflo Activase) injection 4 mg, 4 mg, Intracatheter, PRN, aDphne Landry APRN, ADA alteplase (Cathflo Activase) injection 4 mg, 4 mg, Intracatheter, PRN, Daphne Landry APRN, ADA alteplase (Cathflo Activase) injection 4 mg, 4 mg, Intracatheter, PRN, Daphne Landry APRN, ADA aspirin chewable tablet 81 mg, 81 mg, Oral, Daily, Lala Valdes MAGISTRATE ASSISTANT, 81 mg at 10/16/241312 atorvastatin (Lipitor) tablet 40 mg, 40 mg, Oral, Nightly, Lala Valdes, MAGISTRATE ASSISTANT, 40 mg at 10/15/242036 bisacodyl (Dulcolax) EC tablet 10 mg, 10 mg, Oral, Daily PRN, Lala Valdes, MAGISTRATE ASSISTANT, 10 mg at 10/15/24 0607 cadexomer iodine (Iodosorb) 0.9 % gel, , Topical, Daily, Tana Wooten MD, Given at 10/16/241312 carvedilol (Coreg) tablet 25 mg, 25 mg, Oral, BID, Leda Gaitan MD, 25 mg at 10/16/241312 clopidogrel (Plavix) tablet 75 mg, 75 mg, Oral, Daily, Lala Valdes, MAGISTRATE ASSISTANT, 75 mg at 10/16/241312 glucose (Glutose) 40 % oral gel 15-30 grams of glucose, 15-30 grams of glucose, Sublingual, q15 minPRN OR dextrose 10 % (D10W) bolus 125 mL, 125 mL, Intravenous, q15 min PRN OR dextrose 10 %(D10W) bolus 250 mL, 250 mL, Intravenous, q15 min PRN OR glucagon (human recombinant) injection1 mg, 1 mg, Intramuscular, q15 min PRN, Lala Valdes, MAGISTRATE ASSISTANT divalproex sprinkle (Depakote Sprinkle) DR capsule 250 mg, 250 mg, Oral, BID, Lala Valdes, MAGISTRATE ASSISTANT,250 mg at 10/16/241312 heparin (porcine) injection 5,000 Units, 5,000 Units, Subcutaneous, q8h RAFAT, Lala Valdes, MAGISTRATE ASSISTANT, 5,000 Units at 10/16/241316 melatonin tablet 3 mg, 3 mg, Oral, Nightly, Lala Valdes, MAGISTRATE ASSISTANT, 3 mg at 10/15/242036 NIFEdipine XL (Procardia XL) 24 hr tablet 60 mg, 60 mg, Oral, Daily, Leda Gaitan MD, 60 mg at 10/16/241312 polyethylene glycol (Miralax) packet 17 g, 17 g, Oral, BID, Lucio, Gitana B, MAGISTRATE ASSISTANT, 17 g at 10/16/24 1313 senna (Senokot) tablet 17.2 mg, 17.2 mg, Oral, Nightly PRN, Lucio, Gitana B, MAGISTRATE ASSISTANT, 17.2 mg at 10/15/247 sertraline (Zoloft) tablet 75 mg, 75 mg, Oral, Daily, Lucio, Gitana B, MAGISTRATE ASSISTANT, 75 mg at 10/16/24 1313 Insert peripheral IV, , , Once AND Saline lock IV, , , Once AND sodium chloride 0.9 % flush10 mL, 10 mL, Intravenous, q12h, 10 mL at 10/13/24 1759 AND sodium chloride 0.9 % flush 10 mL, 10 mL, Intravenous, PRN, Lucio, Gitana B, MAGISTRATE ASSISTANT sodium citrate anticoagulant 4 % flush 6 mL, 6 mL, Intracatheter, PRN, Rust, Daphne L, MAGISTRATE ASSISTANT, DNP sodium citrate anticoagulant 4 % flush 6 mL, 6 mL, Intracatheter, PRN, Rust, Daphne L, MAGISTRATE ASSISTANT, DNP sodium citrate anticoagulant 4 % flush 6 mL, 6 mL, Intracatheter, PRN, Rust, Daphne L, MAGISTRATE ASSISTANT, DNP traZODone (Desyrel) tablet 100 mg, 100 mg, Oral, Nightly, Lucio, Gitana B, MAGISTRATE ASSISTANT, 100 mg at 10/15/242036 Facility-Administered Medications Ordered in Other Encounters: lidocaine-EPINEPHrine (PF) (Xylocaine W/EPI) 1 %-1:427577 injection - Pyxis Override Pull, , , , lidocaine-EPINEPHrine (PF) (Xylocaine W/EPI) 1 %-1:363175 injection - Pyxis Override Pull, , , [...] with chronic kidney disease on chronic dialysis ([facility]) Wears hearing aid in both ears At high risk for falls Insomnia, unspecified Chronic combined systolic (congestive) and diastolic (congestive) heart failure (CMS/HCC) Dementia (CMS/HCC) Chronic hepatitis C without hepatic coma ([facility]/HCC) Arterial insufficiency ([facility]/HCC) Gastroesophageal reflux disease without esophagitis Mixed hyperlipidemia Anxiety and depression Mild intellectual disabilities Sensorineural hearing loss, bilateral History of transmetatarsal amputation of foot (CMS/HCC) Electrolyte and fluid disorder Anemia in chronic kidney disease (CODE) Chronic kidney disease-mineral and bone disorder (CKD-MBD) 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 ESRD (end stage renal disease) ([facility]) Medications: Current Medications: Current Scheduled Medications[1] Current [...] bilateral transmetarsal amputation, and debility presented to [facility] on 09/30 after refusing care at [facility]. Nephrology consulted for dialysis. Assessment: #ESRD on [...] Ongoing, Progressing Intervention: Promote Activity and Functional Door Flowsheets (Taken 10/16/2024 0230) Activity Assistance Provided: [...] Wellbeing and Self-Management Success Flowsheets (Taken 10/16/2024 0230) Supportive Measures: active listening utilized self-care encouraged Family/Support System Care: support provided Goal: Optimal Functional Ability Outcome: Ongoing, Progressing Intervention: Optimize Functional Ability Flowsheets Taken 10/16/2024 0230 Activity Assistance Provided: assistance, 2 people Self-Care [...] 2:21 PM EDT CM followed up with [facility] admissions liaison, Brooke and found they are [...] week. CM sent referral to HD social welfare administrator to arrange HD chair near [facility]. CM will discuss transportation to and from HD clinic with facility admissions. CM will arrange transportation to facility when needed. Birdie Damico RN * Care Plan - April Merida RN - 10/15/2024 2:18 PM EDT Problem: Adult Inpatient Plan of Care Goal: Plan of Care Review 10/15/2024 141 by April Merida RN Outcome: Ongoing, Not Progressing Flowsheets (Taken 10/15/2024 1412) Progress: improving Outcome Evaluation: Patient will have a BM this shift Plan of Care Reviewed With: patient 10/15/2024 1233 by April Merida RN Outcome: Ongoing, Progressing Goal: Patient-Specific Goal (Individualized) 10/15/2024 1412 by April Merida RN Outcome: Ongoing, Not Progressing Flowsheets (Taken 10/15/2024 0800) Patient/Family-Specific Goals (Include Timeframe): patient will remain ree from harm throughout theshift Individualized Care Needs: safety Anxieties, Fears or Concerns: none stated 10/15/2024 1233 by April Merida, RN Outcome: Ongoing, Progressing Goal: Absence of [...] Comfort and Wellbeing 10/15/2024 141 by April Merida, TRISTIN Outcome: [...] and Fall-Related Injury 10/15/2024 1412 by April Merida RN [...] April Merida, RN Outcome: Ongoing, Progressing Intervention: Optimize Skin [...] Effective Therapy Delivery 10/15/2024 1412 by April Merida, TRISTIN Outcome: Ongoing, Not Progressing 10/15/2024 1233 by April Merida, TRISTIN Outcome: Ongoing, Progressing Intervention: Optimize Device Care and Function Flowsheets (Taken 10/15/2024 1412) Medication Review/Management: medications reviewed Goal: Effective Tissue Perfusion 10/15/2024 1412 by April Merida, TRISTIN Outcome: [...] Ongoing, Progressing Intervention: Promote Activity and Functional Door Flowsheets (Taken 10/15/2024 1412) Activity Assistance Provided: [...] Hypoglycemia Risk 10/15/2024 1412 by April Merida, RN Outcome: Ongoing, Not Progressing 10/15/2024 1233 by April Merida RN Outcome: Ongoing, Progressing Intervention: Minimize and Manage Hypoglycemia Flowsheets (Taken 10/15/2024 1412) Hypoglycemia Management: blood glucose monitored Problem: Mobility Impairment Goal: Optimal Mobility 10/15/2024 1412 by April Merida, RN Outcome: [...] Glucose 98 74 - 99 mg/dL Comment Facialist ID Moisés Lopez Device ID [id number] Specimen Type POC Capillary POCT glucose meter Collection Time: 10/14/24 8:01 PM Result Value Ref Range POCT Glucose 186 (H) 74 - 99 mg/dL Comment Facialist ID Matty Jeffries Device ID [id number] Specimen Type POC Capillary POCT glucose meter Collection Time: 10/15/24 8:04 AM Result Value Ref Range POCT Glucose 101 (H) 74 - 99 mg/dL Comment Facialist ID Lio Gomez Device ID [id number] Specimen Type POC Capillary POCT glucose meter Collection Time: 10/15/24 12:06 PM Result Value Ref Range POCT Glucose 115 (H) 74 - 99 mg/dL Comment Facialist ID Lio Gomez Device ID [id number] Specimen Type POC Capillary Encounter Date: 09/30/24 EKG now - STAT (adult) Result Value EKG DIAGNOSIS CLASS Abnormal Ventricular Rate 70 Atrial Rate 70 [place] Interval 154 QRSD Interval 106 QT Interval 430 QTC Interval 464 P [place] 69 R [place] -23 T Wave [place] 5 Diagnosis Normal sinus rhythm Diagnosis Nonspecific [...] indicated. Patient IS NOT holdable under KRS as he DOES NOT meet ALL hold [...] IDD/dementia, anxiety, and depression who presented [facility] from facility ([facility]) with concerns of non-adherence to medication regimen [...] to first call physician/provider: Dr. Valle via [employer] chat Patient staffed with attending, Dr. Jon [...] ESRD (end stage renal disease) on dialysis ([facility]) Essential (primary) hypertension Type 2 diabetes mellitus with chronic kidney disease on chronic dialysis ([facility]CC) Wears hearing aid in both ears At high risk for falls Insomnia, unspecified Chronic combined systolic (congestive) and diastolic (congestive) heart failure (CMS/HCC) Dementia ([facility]/HCC) Chronic hepatitis C without hepatic coma ([facility]/HCC) Arterial insufficiency ([facility]/HCC) BPH (benign prostatic hyperplasia) Diabetic peripheral neuropathy ([facility]/HCC) DM type 2 without retinopathy ([facility]/HCC) Gastroesophageal reflux disease without esophagitis Mixed hyperlipidemia Hypoparathyroidism Anxiety and depression Mild intellectual disabilities Sensorineural hearing loss, bilateral Non-ischemic cardiomyopathy (CMS/HCC) Chronic osteomyelitis ([facility]/HCC) Declining functional status History of transmetatarsal amputation of foot ([facility]) Electrolyte and fluid disorder Anemia in chronic kidney disease (CODE) Chronic kidney disease-mineral and bone disorder (CKD-MBD) 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 Non-pressure 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 limited to breakdown of skin ([facility]/HCC) Non-pressure chronic ulcer of right heel and midfoot limited to breakdown of skin ([facility]/HCC) ESRD (end stage renal disease) ([facility]) Cosigned by Yeny Webb DO at 10/16/2024 [...] 10/15/2024 9:25 AM Wound Image Wound Assessment [place];Granulation Margins Well-defined edges;Open Edges Syd[place]-Wound Assessment Clean;Dry;Calloused [...] from the original note were not included. [facility] Inpatient Progress Note Patient: Mundo Fernandez [...] Minimally verbal HENT: Head: Normocephalic. Comments: Very [place] some times sin actions help to communicate [...] Assessment and Plan: Aakash Fernandez is [place] 64 y.o. male with past history of ESRD on HD MWF, T2DM, HTN, chronic HFrEF, PAD, HLD, IDD/dementia, depression/anxiety, insomnia, chronic HCV, DM foot ulcer c/b OM s/p bilateral transmetarsal amputation, and debility [facility] ED for medical evaluationafter refusing care. Declining functional status - Transferred to [facility] a [facility] ago and since arrival refusing HD, to eat, participate, or take medications - sent to ED for medical evaluation and need for higher level of assist/unable to care for self/non-compliance - afebrile, VSS, no acute complaints PLAN - PT/OT consult re: placement - legal guardian is his brother, Chris Fernandez, #[phone] (not answering calls since patient admission) Essential (primary) hypertension - increased carvedilol to 25 mg twice daily, nifedipine XL 60 mg daily (hold for BP <120/80 on dialysis days) At high risk for falls - wheelchair dependent, fall precautions ESRD (end stage renal disease) on dialysis ([facility]) - HD (MWF) - renally dose meds based on EGFR - strict I/O, daily weight Electrolyte and fluid disorder Hyponatremia Chronic kidney disease-mineral and bone disorder (CKD-MBD) - continue Renvela 800 mg TID with meals Anemia in chronic kidney disease (CODE) - Hgb stable, transfuse to keep >7 Type 2 diabetes mellitus with chronic kidney disease on chronic dialysis ([facility]) - last A1c 6.3 PLAN - will dc SSI given minimal Insulin need Dementia ([facility]) - Psych recommended; Asenapine 3.8 mg daily [...] mg, 81 mg, Oral, Daily, Lala Valdes, MAGISTRATE ASSISTANT, 81 mg at 10/15/24 0911 atorvastatin (Lipitor) tablet 40 mg, 40 mg, Oral, Nightly, Lala Valdes, MAGISTRATE ASSISTANT, 40 mg at 10/14/24 204 bisacodyl (Dulcolax) EC tablet 10 mg, 10 mg, Oral, Daily PRN, Lala Valdes, MAGISTRATE ASSISTANT, 10 mg at 10/15/24 0607 cadexomer iodine (Iodosorb) 0.9 % gel, , Topical, Daily, Tana Wooten MD, Given at 10/15/24 0911 carvedilol (Coreg) tablet 25 mg, 25 mg, Oral, BID, Leda Gaitan MD, 25 mg at 10/15/24 0910 clopidogrel (Plavix) tablet 75 mg, 75 mg, [...] BID, Lala Valdes APRN,250 mg at 10/15/24 0911 heparin (porcine) injection 5,000 Units, 5,000 Units, [...] g, 17 g, Oral, Daily, Lala Valdes MAGISTRATE ASSISTANT, 17 g at 10/15/24 1118 sertraline (Zoloft) tablet 75 mg, 75 mg, Oral, Daily, Lala Valdes MAGISTRATE ASSISTANT, 75 mg at 10/15/24 0911 Insert peripheral IV, , , Once AND Saline lock IV, , , Once AND sodium chloride 0.9 % flush10 mL, 10 mL, Intravenous, q12h, 10 mL at 10/13/24 1759 AND sodium chloride 0.9 % flush 10 mL, 10 mL, Intravenous, PRN, Lala Valdes MAGISTRATE ASSISTANT sodium citrate anticoagulant 4 % flush 6 mL, 6 mL, Intracatheter, PRN, Daphne Landry APRN, DNP traZODone (Desyrel) tablet 100 mg, 100 mg, Oral, Nightly, Lala Valdes, MAGISTRATE ASSISTANT, 100 mg at 10/14/242046 Facility-Administered Medications Ordered in Other Encounters: lidocaine-EPINEPHrine (PF) (Xylocaine W/EPI) 1 %-1:210276 injection - Pyxis Override Pull, , , , lidocaine-EPINEPHrine (PF) (Xylocaine W/EPI) 1 %-1:826644 injection - Pyxis Override Pull, , , [...] ESRD (end stage renal disease) on dialysis ([facility]) Essential (primary) hypertension Type 2 diabetes mellitus with chronic kidney disease on chronic dialysis ([facility]) Wears hearing aid in both ears At high risk for falls Insomnia, unspecified Chronic combined systolic (congestive) and diastolic (congestive) heart failure (CMS/HCC) Dementia ([facility]/HCC) Chronic hepatitis C without hepatic coma ([facility]/HCC) Arterial insufficiency ([facility]/HCC) Gastroesophageal reflux disease without esophagitis Mixed hyperlipidemia Anxiety and depression Mild intellectual disabilities Sensorineural hearing loss, bilateral History of transmetatarsal amputation of foot ([facility]/HCC) Electrolyte and fluid disorder Anemia in chronic kidney disease (CODE) Chronic kidney disease-mineral and bone disorder (CKD-MBD) 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 ESRD (end stage renal disease) ([facility]) Medications: Current Medications: Current Scheduled Medications[1] Current [...] bilateral transmetarsal amputation, and debility presented to [facility] on 09/30 after refusing care at his [facility]. Nephrology consulted for dialysis. Assessment: #ESRD on iHD - MWF at [facility] [address] Lucas - AccesS: RUE AVG [...] plan as documented. * Care Plan - JagrutiCarri - 10/15/2024 2:25 AM EDT Problem: Adult [...] Ongoing, Progressing Intervention: Promote Activity and Functional Door Flowsheets Taken 10/15/2024218 Adaptive Equipment Use: use [...] Intervention: Optimize Glycemic Control Flowsheets (Taken 10/15/2024 0219) Hyperglycemia Management: blood glucose monitored Goal: Minimize Hypoglycemia Risk Outcome: Ongoing, Progressing Intervention: Minimize and Manage Hypoglycemia Flowsheets (Taken 10/15/2024 0219) Hypoglycemia Management: blood glucose monitored * Progress Notes - Lamont Brumfield MD - 10/14/2024 4:55 PM EDT Images from the original note were not included. [facility] Inpatient Progress Note Patient: Mundo [...] Minimally verbal HENT: Head: Normocephalic. Comments: Very [place] some times sin actions help to communicate [...] Assessment and Plan: Aakash Fernandez is [place] 64 y.o. male with past history of ESRD on HD MWF, T2DM, HTN, chronic HFrEF, PAD, HLD, IDD/dementia, depression/anxiety, insomnia, chronic HCV, DM foot ulcer c/b OM s/p bilateral transmetarsal amputation, and debility sent from his [facility] to ED for medical evaluationafter refusing care. Declining functional status - Transferred to [facility] a week ago and since arrival refusing HD, to eat, participate, or take medications - sent to ED for medical evaluation and need for higher level of assist/unable to care for self/non-compliance - afebrile, VSS, no acute complaints PLAN - PT/OT consult re: placement - legal guardian is his brother, Chris Fernandez, #[phone] (not answering calls since patient admission) Essential (primary) hypertension - increased carvedilol to 25 mg twice daily, nifedipine XL 60 mg daily (hold for BP <120/80 on dialysis days) At high risk for falls - wheelchair dependent, fall precautions ESRD (end stage renal disease) on dialysis ([facility]) - HD (MWF) - renally dose meds based on EGFR - strict I/O, daily weight Electrolyte and fluid disorder Hyponatremia Chronic kidney disease-mineral and bone disorder (CKD-MBD) - continue Renvela 800 mg TID with meals Anemia in chronic kidney disease (CODE) - Hgb stable, transfuse to keep >7 Type 2 diabetes mellitus with chronic kidney disease on chronic dialysis ([facility]) - last A1c 6.3 PLAN - will dc SSI given minimal Insulin need Dementia ([facility]) - Psych recommended; Asenapine 3.8 mg daily [...] melatonin 3 mg at bedtime Arterial insufficiency ([facility]) - continue aspirin 81 mg daily, clopidogrel [...] systolic (congestive) and diastolic (congestive) heart failure ([facility]) - ECHO 06/27/2022: EF 45%, abnormal diastolic dysfunction - strict I/O, 2 L fluid restriction, cardiac/renal/CCHO2 diet Chronic hepatitis C without hepatic coma ([facility]) - HCV RNA PCR not detected 07/13/2023 [...] Fernandez Mobile Relation: Legal Guardian Preferred language: Turk[place] Tilt Tray Driver needed? No Secondary Emergency Contact: KathyMariel Address: [address] [place] [address] Mobile Relation: Director Of Retail Merchandising Tilt Tray Driver needed? No Lamont Brumfield MD Division of Hospital Medicine [phone] or secure message [1] Current Facility-Administered Medications: acetaminophen (Tylenol) tablet 650 mg, 650 mg, Oral, q6h PRN, Lala Valdes B, MAGISTRATE ASSISTANT alteplase (Cathflo Activase) injection 4 mg, 4 mg, Intracatheter, PRN, Daphne Landry APRN, DNP Asenapine 3.8mg/24 hr patch, 1 patch, Transdermal, q24h, Leda Gaitan MD, 1 patchat 10/14/24 1649 aspirin chewable tablet 81 mg, 81 mg, Oral, Daily, Lala Valdes B, MAGISTRATE ASSISTANT, 81 mg at 10/14/24 0856 atorvastatin (Lipitor) tablet 40 mg, 40 mg, Oral, Nightly, Lala Valdes B, MAGISTRATE ASSISTANT, 40 mg at 10/13/24 2044 bisacodyl (Dulcolax) EC tablet 10 mg, 10 mg, Oral, Daily PRN, Lala Valdes, MAGISTRATE ASSISTANT, 10 mg at 10/13/24 0559 cadexomer iodine [...] Oral, BID, Lala Valdes APRN,250 mg at 10/14/24 0856 heparin (porcine) injection 5,000 Units, 5,000 Units, Subcutaneous, q8h RAFAT, Lala Valdes APRN, 5,000 Units at 10/14/24626 melatonin tablet 3 mg, 3 mg, Oral, [...] mg, 75 mg, Oral, Daily, Lala Valdes MAGISTRATE ASSISTANT, 75 mg at 10/14/24 0856 Insert peripheral IV, , , Once AND Saline lock IV, , , Once AND sodium chloride 0.9 % flush10 mL, 10 mL, Intravenous, q12h, 10 mL at 10/13/24 1759 AND sodium chloride 0.9 % flush 10 mL, 10 mL, Intravenous, PRN, Lala Valdes APRN sodium citrate anticoagulant 4 % flush 6 mL, 6 mL, Intracatheter, PRN, Gris, Daphne Galeana APRN, DNP traZODone (Desyrel) tablet 100 mg, 100 mg, Oral, Nightly, Lala Valdes MAGISTRATE ASSISTANT, 100 mg at 10/13/242043 Facility-Administered Medications Ordered [...] Ongoing, Progressing Intervention: Promote Activity and Functional Door Flowsheets (Taken 10/14/2024 1430) Activity Assistance Provided: [...] Note Mundo Fernandez 64 y.o. male CSN: [id number] Admission: 09/30/2024 3:29 PM Primary Problem: Declining [...] management of chronic conditions. Anticipate discharge to [facility] facility. Message left for call back from [facility] ([phone]). Will secure transport after placement confirmed. BrotherChris, is guardian; will update after confirmation from facility received. Karma Brambila RN, BSN Case Management * Consults - Lexi Hernandez, RD - 10/14/2024 12:00 PM EDT Adult Nutrition Evaluation Note Mundo Fernandez 64 y.o. male CSN: [id number] Room/Bed 710/710A Nutrition evaluation type: assessment Reason for evaluation: [facility] Hospital course: Pt is a 64 y.o. male who presented to the ED on 09/30 from his [facility] for medical evaluation after refusing care. Past [...] (Room air) O2 Delivery Method: Nasal cannula [place] Coma Scale Score: 14 Sav Scale Score: [...] (Calculated): 23.63 Weight Evaluation: Overweight (BMI 25-29.9) [place] Body Weight (kg): 75.5 Percent [place] Body Weight: 112 Wt Readings from Last [...] lb) Estimated Needs: Kcal/ K-30 Kcal Provided: 6579-2893 Kcal Needs Based On: Current weight (84.4 kg) Gm Protein/ Kg : 1.2-1.5 Protein Provided: 101-127 Protein Needs Based On: Current weight (84.4 kg) Fluid Provided: 1 ml/kcal or per MD team Metabolic Cart Study Results: Current Nutrition Intake: Diet Supplements: None Diet Order: Adult Diet Diet Texture: Regular Adult Carbohydrate Restriction: Consistent CHO 3 (2699-8265 Preet, 95 g/meal) Adult Sodium Restriction: 2,000 mg Na Fat Restriction: Cardiac Electrolyte Restriction: Renal Adult Fluid Restriction / 24 hr: 2000 ml fluid Percent Meals Eaten (%): 71% avg x 15 meals (10/07-10/14) Diet Experience and Nutrition History: Diet Education Provided: Will monitor Pertinent home medications: Medications Ordered Prior to Encounter[5] [facility] needs: Nutrition Focused Physical Exam: Unable to [...] 02/18/2022 Added automatically from request for surgery [id number] Insomnia, unspecified 12/22/2021 Methicillin resistant Staphylococcus aureus infection, unspecified site Mild intellectual disabilities 08/30/2019 MSSA bacteremia 03/04/2022 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 06/07/2024 Sensorineural hearing loss, bilateral 01/11/2018 Type 2 diabetes mellitus [2] Past Surgical History: Procedure Laterality Date CATARACT EXTRACTION W/ INTRAOCULAR LENS IMPLANT N/A Cataract Phacoemulsification With Intraocular Lens Implantation from [employer] EXPLORATORY LAPAROTOMY stab incision abdomen EYE SURGERY N/A Eye Surgery from [facility] FOOT SURGERY N/A Surgery Foot Amputation Metatarsal And Toe from [employer] OTHER SURGICAL HISTORY Right Tympanic Membrane Repair - Right Ear from [employer] OTHER SURGICAL HISTORY Right Surgery Right Foot Amputation MTP from [employer] [3] Asenapine, 1 patch, Transdermal, q24h aspirin, [...] Last Admin lidocaine-EPINEPHrine (PF) (Xylocaine W/EPI) 1 %-1:703611 injection - Pyxis Override Pull lidocaine-EPINEPHrine (PF) (Xylocaine W/EPI) 1 %-1:834084 injection - Pyxis Override Pull Current Outpatient [...] bilateral transmetarsal amputation, and debility presented to [facility] on 09/30 after refusing care at his [facility]. Nephrology consulted for dialysis. Assessment: #ESRD on iHD - MWF at [facility] [address] Lucas - AccesS: ISAURO HADLEYG - EDW 67.5 Kg #HTN #Renal Osteodystrophy; [...] Care Review Outcome: Ongoing, Progressing Flowsheets (Taken 10/14/2024122) Progress: improving Outcome Evaluation: Patient will remain [...] Ongoing, Progressing Intervention: Promote Activity and Functional Door Flowsheets Taken 10/14/2024122 Self-Care Promotion: independence encouraged [...] Prevent or Manage Infection Flowsheets (Taken 10/14/2024 0123) Fever Reduction/Comfort Measures: lightweight bedding Isolation Precautions: [...] Ongoing, Progressing Intervention: Promote Activity and Functional Door Flowsheets (Taken 10/13/2024 0054 by Carri Chand) [...] from the original note were not included. [facility] Inpatient Progress Note Patient: Mundo [...] Comments: Minimally verbal HENT: Head: Normocephalic. Comments: [place] Right Ear: External ear normal. Left Ear: [...] Assessment and Plan: Aakash Fernandez is [place] 64 y.o. male with past history of ESRD on HD MWF, T2DM, HTN, chronic HFrEF, PAD, HLD, IDD/dementia, depression/anxiety, insomnia, chronic HCV, DM foot ulcer c/b OM s/p bilateral transmetarsal amputation, and debility sent from his [facility] to ED for medical evaluationafter refusing care. Declining functional status - Transferred to [facility] a week ago and since arrival refusing HD, to eat, participate, or take medications - sent to ED for medical evaluation and need for higher level of assist/unable to care for self/non-compliance - afebrile, VSS, no acute complaints PLAN - PT/OT consult re: placement - legal guardian is his brother, Chris Fernandez, #[phone] (not answering calls since patient admission) Essential (primary) hypertension - increased carvedilol to 25 mg twice daily, nifedipine XL 60 mg daily (hold for BP <120/80 on dialysis days) At high risk for falls - wheelchair dependent, fall precautions ESRD (end stage renal disease) on dialysis ([facility]) - HD (MWF) - renally dose meds based on EGFR - strict I/O, daily weight Electrolyte and fluid disorder Hyponatremia Chronic kidney disease-mineral and bone disorder (CKD-MBD) - continue Renvela 800 mg TID with meals Anemia in chronic kidney disease (CODE) - Hgb stable, transfuse to keep >7 Type 2 diabetes mellitus with chronic kidney disease on chronic dialysis ([facility]) - last A1c 6.3 PLAN - ACHS regular SSI Dementia ([facility]) - Psych recommended; Asenapine 3.8 mg daily [...] melatonin 3 mg at bedtime Arterial insufficiency ([facility]) - continue aspirin 81 mg daily, clopidogrel [...] systolic (congestive) and diastolic (congestive) heart failure ([facility]) - ECHO 06/27/2022: EF 45%, abnormal diastolic dysfunction - strict I/O, 2 L fluid restriction, cardiac/renal/CCHO2 diet Chronic hepatitis C without hepatic coma ([facility]) - HCV RNA PCR not detected 07/13/2023 History of transmetatarsal amputation of foot ([facility]) - chronic OM 2/2 DM foot ulcers s/p bilateral transmetarsal amputation Inpatient Checklist: Inpatient checklist: - Bowel regimen: ducolax - Code status: Full Code - Diet: PO - DVT prophylaxis: heparin - Disposition: placement (possible APS report filled today) CODE STATUS: Full Code EMERGENCY CONTACT: Extended Emergency Contact Information Primary Emergency Contact: Chris Fernandez Mobile Relation: Legal Guardian Preferred language: [place] Tilt Tray Driver needed? No Secondary Emergency Contact: Mariel Chavez Address: [address] [place] [address] Mobile Relation: Director Of Retail Merchandising Tilt Tray Driver needed? No Lamont Brumfield MD Division of Hospital Medicine [phone] or secure message [1] Current Facility-Administered Medications: acetaminophen (Tylenol) tablet 650 mg, 650 mg, Oral, q6h PRN, Lala Valdes B, MAGISTRATE ASSISTANT Asenapine 3.8mg/24 hr patch, 1 patch, Transdermal, q24h, Leda Gaitan MD, 1 patchat 10/12/24 1427 aspirin chewable tablet 81 mg, 81 mg, Oral, Daily, Lala Valdes, MAGISTRATE ASSISTANT, 81 mg at 10/13/24 0946 atorvastatin (Lipitor) tablet 40 mg, 40 mg, Oral, Nightly, Lala Valdes, MAGISTRATE ASSISTANT, 40 mg at 10/12/24 2044 bisacodyl (Dulcolax) EC tablet 10 mg, 10 mg, Oral, Daily PRN, Lala Valdes, MAGISTRATE ASSISTANT, 10 mg at 10/13/24 0559 cadexomer iodine (Iodosorb) 0.9 % gel, , Topical, Daily, Tana Wooten MD, Given at 10/13/24 0947 carvedilol (Coreg) tablet 25 mg, 25 mg, Oral, BID, Leda Gaitan MD, 25 mg at 10/13/24 0946 clopidogrel (Plavix) tablet 75 mg, 75 mg, Oral, Daily, Lala Valdes, MAGISTRATE ASSISTANT, 75 mg at 10/13/24 0946 glucose (Glutose) [...] Intramuscular, q15 min PRN, Lala Valdes B, MAGISTRATE ASSISTANT divalproex sprinkle (Depakote Sprinkle) DR capsule 250 mg, 250 mg, Oral, BID, Lala Valdes, MAGISTRATE ASSISTANT,250 mg at 10/13/24 0946 heparin (porcine) injection 5,000 Units, 5,000 Units, Subcutaneous, q8h RAFAT, Lala Valdes MAGISTRATE ASSISTANT, 5,000 Units at 10/13/24 0559 insulin lispro (Admelog) 100 units/mL injection - Correction - Standard Dose, 0- 5 Units, Subcutaneous, TID with meals, Lala Valdes APRN, 1 Units at 10/12/24 1220 insulin lispro (Admelog) injection - Correction - Nighttime Dose, 0-3 Units, Subcutaneous, Twice atnight, Lala Valdes APRN melatonin tablet 3 mg, 3 mg, Oral, Nightly, Lala Valdes MAGISTRATE ASSISTANT, 3 mg at 10/12/242043 NIFEdipine XL (Procardia XL) 24 hr tablet 60 mg, 60 mg, Oral, Daily, Leda Gaitan MD, 60 mg at 10/13/24945 polyethylene glycol (Miralax) packet 17 g, 17 g, Oral, Daily, Lala Valdes APRN, 17 g at 10/13/24945 sertraline (Zoloft) tablet 75 mg, 75 mg, Oral, Daily, Lala Valdes, MAGISTRATE ASSISTANT, 75 mg at 10/13/24945 Insert peripheral IV, , , Once AND Saline lock IV, , , Once AND sodium chloride 0.9 % flush10 mL, 10 mL, Intravenous, q12h, 10 mL at 10/13/2447 AND sodium chloride 0.9 % flush 10 mL, 10 mL, Intravenous, PRN, Lala Valdes MAGISTRATE ASSISTANT traZODone (Desyrel) tablet 100 mg, 100 mg, Oral, Nightly, Lala Valdes, MAGISTRATE ASSISTANT, 100 mg at 10/12/242043 Facility-Administered Medications Ordered in Other Encounters: lidocaine-EPINEPHrine (PF) (Xylocaine W/EPI) 1 %-1:043566 injection - Pyxis Override Pull, , , , lidocaine-EPINEPHrine (PF) (Xylocaine W/EPI) 1 %-1:063183 injection - Pyxis Override Pull, , , [...] Ongoing, Progressing Intervention: Promote Activity and Functional Door Flowsheets (Taken 10/13/202453) Activity Assistance Provided: assistance, [...] Ongoing, Progressing Intervention: Promote Activity and Functional Door Flowsheets (Taken 10/12/2024 1204) Activity Assistance Provided: [...] from the original note were not included. [facility] Inpatient Progress Note Patient: Mundo [...] Assessment and Plan: Aakash Fernandez is [place] 64 y.o. male with past history of ESRD on HD MWF, T2DM, HTN, chronic HFrEF, PAD, HLD, IDD/dementia, depression/anxiety, insomnia, chronic HCV, DM foot ulcer c/b OM s/p bilateral transmetarsal amputation, and debility sent [facility] his [facility] ED for medical evaluationafter refusing care. Declining functional status - Transferred to [facility] ago and since arrival refusing HD, to eat, participate, or take medications - sent to ED for medical evaluation and need for higher level of assist/unable to care for self/non-compliance - afebrile, VSS, no acute complaints PLAN - PT/OT consult re: placement - legal guardian is his brother, Chris Fernandez, #[phone] (not answering calls since patient admission) Essential (primary) hypertension - increased carvedilol to 25 mg twice daily, nifedipine XL 60 mg daily (hold for BP <120/80 on dialysis days) At high risk for falls - wheelchair dependent, fall precautions ESRD (end stage renal disease) on dialysis ([facility]) - HD (MWF) - renally dose meds based on EGFR - strict I/O, daily weight Electrolyte and fluid disorder Hyponatremia Chronic kidney disease-mineral and bone disorder (CKD-MBD) - continue Renvela 800 mg TID with meals Anemia in chronic kidney disease (CODE) - Hgb stable, transfuse to keep >7 Type 2 diabetes mellitus with chronic kidney disease on chronic dialysis ([facility]) - last A1c 6.3 PLAN - ACHS regular SSI Dementia ([facility]) - Psych recommended; Asenapine 3.8 mg daily [...] melatonin 3 mg at bedtime Arterial insufficiency ([facility]) - continue aspirin 81 mg daily, clopidogrel [...] systolic (congestive) and diastolic (congestive) heart failure ([facility]) - ECHO 06/27/2022: EF 45%, abnormal diastolic dysfunction - strict I/O, 2 L fluid restriction, cardiac/renal/CCHO2 diet Chronic hepatitis C without hepatic coma ([facility]) - HCV RNA PCR not detected 07/13/2023 History of transmetatarsal amputation of foot ([facility]) - chronic OM 2/2 DM foot ulcers s/p bilateral transmetarsal amputation Inpatient Checklist: Inpatient checklist: - Bowel regimen: ducolax - Code status: Full Code - Diet: PO - DVT prophylaxis: heparin - Disposition: placement (possible APS report filled today) CODE STATUS: Full Code EMERGENCY CONTACT: Extended Emergency Contact Information Primary Emergency Contact: Chris Fernandez Mobile Relation: Legal Guardian Preferred language: Turkmen Tilt Tray Driver needed? No Secondary Emergency Contact: Mariel Chavez Address: [address] [place] [address] Mobile Relation: Director Of Retail Merchandising Tilt Tray Driver needed? No Lamont Brumfield MD Division of Hospital Medicine [phone] or secure message [1] Current Facility-Administered Medications: acetaminophen (Tylenol) tablet 650 mg, 650 mg, Oral, q6h PRN, Lala Valdes, MAGISTRATE ASSISTANT Asenapine 3.8mg/24 hr patch, 1 patch, Transdermal, q24h, Leda Gaitan MD, 1 patchat 10/11/24 1427 aspirin chewable tablet 81 mg, 81 mg, Oral, Daily, Lala Valdes APRN, 81 mg at 10/11/24 1419 atorvastatin (Lipitor) tablet 40 mg, 40 mg, Oral, Nightly, Lala Valdes MAGISTRATE ASSISTANT, 40 mg at 10/11/242005 bisacodyl (Dulcolax) EC tablet 10 mg, 10 mg, Oral, Daily PRN, Lala Valdes MAGISTRATE ASSISTANT cadexomer iodine (Iodosorb) 0.9 % gel, , Topical, Daily, Tana Wooten MD, Given at 10/11/24 1428 carvedilol (Coreg) tablet 25 mg, 25 mg, Oral, BID, Leda Gaitan MD, 25 mg at 10/11/242005 clopidogrel (Plavix) tablet 75 mg, 75 mg, Oral, Daily, Lala Valdes MAGISTRATE ASSISTANT, 75 mg at 10/11/24 1419 glucose (Glutose) [...] mg, 250 mg, Oral, BID, Lala Valdes MAGISTRATE ASSISTANT,250 mg at 10/11/242005 heparin (porcine) injection 5,000 Units, 5,000 Units, Subcutaneous, q8h RFAAT, Lala Valdes MAGISTRATE ASSISTANT, 5,000 Units at 10/12/24 0624 insulin lispro (Admelog) 100 units/mL injection - Correction - Standard Dose, 0- 5 Units, Subcutaneous, TID with meals, Lala Valdes APRN, 3 Units at 10/08/24 1218 insulin lispro (Admelog) injection - Correction - Nighttime Dose, 0-3 Units, Subcutaneous, Twice atnight, Lala Valdes APRN melatonin tablet 3 mg, 3 mg, Oral, Nightly, Lala Valdes APRN, 3 mg at 10/11/242005 NIFEdipine XL (Procardia XL) 24 hr tablet 60 mg, 60 mg, Oral, Daily, Leda Gaitan MD, 60 mg at 10/10/2401 polyethylene glycol (Miralax) packet 17 g, 17 g, Oral, Daily, Lala Valdes APRN, 17 g at 10/10/24900 sertraline (Zoloft) tablet 75 mg, 75 mg, Oral, Daily, Lala Valdes APRN, 75 mg at 10/11/24 1419 Insert peripheral IV, , , Once AND Saline lock IV, , , Once AND sodium chloride 0.9 % flush10 mL, 10 mL, Intravenous, q12h, 10 mL at 10/10/24 0902 AND sodium chloride 0.9 % flush 10 mL, 10 mL, Intravenous, PRN, Lala Valdes MAGISTRATE ASSISTANT traZODone (Desyrel) tablet 100 mg, 100 mg, Oral, Nightly, Lala Valdes MAGISTRATE ASSISTANT, 100 mg at 10/11/242005 Facility-Administered Medications Ordered in Other Encounters: lidocaine-EPINEPHrine (PF) (Xylocaine W/EPI) 1 %-1:578796 injection - Pyxis Override Pull, , , , lidocaine-EPINEPHrine (PF) (Xylocaine W/EPI) 1 %-1:758938 injection - Pyxis Override Pull, , , [...] Ongoing, Progressing Intervention: Promote Activity and Functional Door Flowsheets (Taken 10/12/202428) Activity Assistance Provided: assistance, [...] supervised Intervention: Prevent Skin Injury Flowsheets (Taken 10/11/20241447) Skin Protection: incontinence pads utilized Intervention: Prevent Infection Flowsheets (Taken 10/11/20241447) Infection Prevention: hand hygiene promoted Problem: Skin Injury Risk Increased Goal: Skin Health and Integrity Outcome: Ongoing, Progressing Intervention: Optimize Skin Protection Flowsheets (Taken 10/11/20241447) Activity Management: activity encouraged Skin Protection: incontinence [...] Ongoing, Progressing Intervention: Promote Activity and Functional Door Flowsheets (Taken 10/11/20241447) Self-Care Promotion: BADL personal routines maintained Intervention: Optimize Functional Ability Flowsheets (Taken 10/11/20241447) Activity Management: activity encouraged Self-Care Promotion: BADL personal routines maintained Goal: Blood Glucose Level Within Target Range Outcome: Ongoing, Progressing Intervention: Optimize Glycemic Control Flowsheets (Taken 10/11/2024 3788) Hyperglycemia Management: blood glucose monitored * Progress Notes - Hafsa Schmidt - 10/11/2024 1:00 PM EDT Case Management Adult Progress Note Mundo Fernandez 64 y.o. male CSN: [id number] Admission: 09/30/2024 3:29 PM Primary Problem: Declining functional status Comments SW CM attempted to follow up with admissions at [facility] at phone number however, SW [...] 28 days, Once Release to patient in [facility]: Immediate Hepatitis panel, acute Every 28 days, Once Release to patient in [facility]: Immediate Zechariah Tovar MD Nephrology [1] Asenapine, [...] Assessment and Plan: Aakash Fernandez [place] 64 y.o. male with past history of ESRD on HD MWF, T2DM, HTN, chronic HFrEF, PAD, HLD, IDD/dementia, depression/anxiety, insomnia, chronic HCV, DM foot ulcer c/b OM s/p bilateral transmetarsal amputation, and debility [facility] for medical evaluationafter refusing care. Declining functional status - [facility] a [facility] ago and since arrival refusing HD, to eat, participate, or take medications - sent to ED for medical evaluation and need for higher level of assist/unable to care for self/non-compliance - afebrile, VSS, no acute complaints PLAN - PT/OT consult re: placement - legal guardian is his brother, Chris Fernandez, #[phone] (not answering calls since patient admission) Essential (primary) hypertension - increased carvedilol to 25 mg twice daily, nifedipine XL 60 mg daily (hold for BP <120/80 on dialysis days) At high risk for falls - wheelchair dependent, fall precautions ESRD (end stage renal disease) on dialysis ([facility]) - HD (MWF) - renally dose meds based on EGFR - strict I/O, daily weight Electrolyte and fluid disorder Hyponatremia Chronic kidney disease-mineral and bone disorder (CKD-MBD) - continue Renvela 800 mg TID with meals Anemia in chronic kidney disease (CODE) - Hgb stable, transfuse to keep >7 Type 2 diabetes mellitus with chronic kidney disease on chronic dialysis ([facility]) - last A1c 6.3 PLAN - ACHS regular SSI Dementia ([facility]) - Psych recommended; Asenapine 3.8 mg daily [...] melatonin 3 mg at bedtime Arterial insufficiency ([facility]) - continue aspirin 81 mg daily, clopidogrel [...] systolic (congestive) and diastolic (congestive) heart failure ([facility]) - ECHO 06/27/2022: EF 45%, abnormal diastolic dysfunction - strict I/O, 2 L fluid restriction, cardiac/renal/CCHO2 diet Chronic hepatitis C without hepatic coma ([facility]) - HCV RNA PCR not detected 07/13/2023 History of transmetatarsal amputation of foot ([facility]) - chronic OM 2/2 DM foot ulcers s/p bilateral transmetarsal amputation Inpatient Checklist: Inpatient checklist: - Bowel regimen: ducolax - Code status: Full Code - Diet: PO - DVT prophylaxis: heparin - Disposition: placement (possible APS report filled today) CODE STATUS: Full Code EMERGENCY CONTACT: Extended Emergency Contact Information Primary Emergency Contact: Chris Fernandez Mobile Relation: Legal Guardian Preferred language: Turkmen Tilt Tray Driver needed? No Secondary Emergency Contact: Mariel Chavez Address: [address] [place] [address] of [employer] Relation: Director Of Retail Merchandising Tilt Tray Driver needed? No Lamont Brumfield MD Division of Hospital Medicine [phone] or secure message [1] Current Facility-Administered Medications: acetaminophen (Tylenol) tablet 650 mg, 650 mg, Oral, q6h PRN, Lala Valdes APRN Asenapine 3.8mg/24 hr patch, 1 patch, Transdermal, q24h, Leda Gaitan MD, 1 Application at 10/10/24 1322 aspirin chewable tablet 81 mg, 81 mg, Oral, Daily, Lala Valdes MAGISTRATE ASSISTANT, 81 mg at 10/10/24 0901 atorvastatin (Lipitor) tablet 40 mg, 40 mg, Oral, Nightly, Lala Valdes, MAGISTRATE ASSISTANT, 40 mg at 10/10/242105 bisacodyl (Dulcolax) EC tablet 10 mg, 10 mg, Oral, Daily PRN, Lala Valdes MAGISTRATE ASSISTANT cadexomer iodine (Iodosorb) 0.9 % gel, , Topical, Daily, Tana Wooten MD, Given at 10/04/24 1311 carvedilol (Coreg) tablet 25 mg, 25 mg, Oral, BID, Leda Gaitan MD, 25 mg at 10/10/24 210 clopidogrel (Plavix) tablet 75 mg, 75 mg, Oral, Daily, Lala Valdes APRN, 75 mg at 10/10/24 0901 glucose (Glutose) 40 % oral gel 15-30 grams of glucose, 15-30 grams of glucose, Sublingual, q15 minPRN OR dextrose 10 % (D10W) bolus 125 mL, 125 mL, Intravenous, q15 min PRN OR dextrose 10 %(D10W) bolus 250 mL, 250 mL, Intravenous, q15 min PRN OR glucagon (human recombinant) injection1 mg, 1 mg, Intramuscular, q15 min PRN, Lala Valdes MAGISTRATE ASSISTANT divalproex sprinkle (Depakote Sprinkle) DR capsule 250 mg, 250 mg, Oral, BID, Lala Valdes, MAGISTRATE ASSISTANT,250 mg at 10/10/242105 heparin (porcine) injection 5,000 Units, 5,000 Units, Subcutaneous, q8h RAFAT, Lala Valdes MAGISTRATE ASSISTANT, 5,000 Units at 10/11/24 0623 insulin lispro (Admelog) 100 units/mL injection - Correction - Standard Dose, 0- 5 Units, Subcutaneous, TID with meals, Lala Valdes MAGISTRATE ASSISTANT, 3 Units at 10/08/24 1218 insulin lispro (Admelog) injection - Correction - Nighttime Dose, 0-3 Units, Subcutaneous, Twice atnight, Lala Valdes MAGISTRATE ASSISTANT melatonin tablet 3 mg, 3 mg, Oral, Nightly, Lala Valdes, MAGISTRATE ASSISTANT, 3 mg at 10/10/242106 NIFEdipine XL (Procardia XL) 24 hr tablet 60 mg, 60 mg, Oral, Daily, Leda Gaitan MD, 60 mg at 10/10/24900 polyethylene glycol (Miralax) packet 17 g, 17 g, Oral, Daily, Lala Valdes, MAGISTRATE ASSISTANT, 17 g at 10/10/24900 sertraline (Zoloft) tablet 75 mg, 75 mg, Oral, Daily, Lala Valdes, MAGISTRATE ASSISTANT, 75 mg at 10/10/24900 Insert peripheral IV, , , Once AND Saline lock IV, , , Once AND sodium chloride 0.9 % flush10 mL, 10 mL, Intravenous, q12h, 10 mL at 10/10/24 09 AND sodium chloride 0.9 % flush 10 mL, 10 mL, Intravenous, PRN, Lala Valdes B, MAGISTRATE ASSISTANT traZODone (Desyrel) tablet 100 mg, 100 mg, Oral, Nightly, Lala Valdes, MAGISTRATE ASSISTANT, 100 mg at 10/10/242106 Facility-Administered Medications Ordered in Other Encounters: lidocaine-EPINEPHrine (PF) (Xylocaine W/EPI) 1 %-1:225409 injection - Pyxis Override Pull, , , , lidocaine-EPINEPHrine (PF) (Xylocaine W/EPI) 1 %-1:432546 injection - Pyxis Override Pull, , , [...] Ongoing, Progressing Intervention: Promote Activity and Functional Door Flowsheets (Taken 10/11/2024216) Activity Assistance Provided: assistance, [...] from the original note were not included. [facility] Inpatient Progress Note Patient: Mundo [...] Assessment and Plan: Aakash Fernandez is [place] 64 y.o. male with past history of ESRD on HD MWF, T2DM, HTN, chronic HFrEF, PAD, HLD, IDD/dementia, depression/anxiety, insomnia, chronic HCV, DM foot ulcer c/b OM s/p bilateral transmetarsal amputation, and debility sent [facility] his [facility] ED for medical evaluationafter refusing care. Declining functional status - Transferred to [facility] ago and since arrival refusing HD, to eat, participate, or take medications - sent to ED for medical evaluation and need for higher level of assist/unable to care for self/non-compliance - afebrile, VSS, no acute complaints PLAN - PT/OT consult re: placement - legal guardian is his brother, Chris Fernandez, #[phone] (not answering calls since patient admission) Essential (primary) hypertension - increased carvedilol to 25 mg twice daily, nifedipine XL 60 mg daily (hold for BP <120/80 on dialysis days) At high risk for falls - wheelchair dependent, fall precautions ESRD (end stage renal disease) on dialysis ([facility]) - HD (MWF) - renally dose meds based on EGFR - strict I/O, daily weight Electrolyte and fluid disorder Hyponatremia Chronic kidney disease-mineral and bone disorder (CKD-MBD) - continue Renvela 800 mg TID with meals Anemia in chronic kidney disease (CODE) - Hgb stable, transfuse to keep >7 Type 2 diabetes mellitus with chronic kidney disease on chronic dialysis ([facility]) - last A1c 6.3 PLAN - ACHS regular SSI Dementia ([facility]) - Psych recommended; Asenapine 3.8 mg daily [...] melatonin 3 mg at bedtime Arterial insufficiency ([facility]) - continue aspirin 81 mg daily, clopidogrel [...] systolic (congestive) and diastolic (congestive) heart failure ([facility]) - ECHO 06/27/2022: EF 45%, abnormal diastolic dysfunction - strict I/O, 2 L fluid restriction, cardiac/renal/CCHO2 diet Chronic hepatitis C without hepatic coma ([facility]) - HCV RNA PCR not detected 07/13/2023 History of transmetatarsal amputation of foot ([facility]) - chronic OM 2/2 DM foot ulcers s/p bilateral transmetarsal amputation Inpatient Checklist: Inpatient checklist: - Bowel regimen: ducolax - Code status: Full Code - Diet: PO - DVT prophylaxis: heparin - Disposition: placement (possible APS report filled today) CODE STATUS: Full Code EMERGENCY CONTACT: Extended Emergency Contact Information Primary Emergency Contact: Chris Fernandez Mobile Relation: Legal Guardian Preferred language: Turkmen Tilt Tray Driver needed? No Secondary Emergency Contact: Mariel Chavez Address: [address] [place] [address] [address] [facility] Mobile Relation: Director Of Retail Merchandising Tilt Tray Driver needed? No Lamont Brumfield MD Division of Hospital Medicine [phone] or secure message [1] Current Facility-Administered Medications: acetaminophen (Tylenol) tablet 650 mg, 650 mg, Oral, q6h PRN, Lala Valdes, MAGISTRATE ASSISTANT Asenapine 3.8mg/24 hr patch, 1 patch, Transdermal, q24h, Leda Gaitan MD, 1 patchat 10/09/24 1337 aspirin chewable tablet 81 mg, 81 mg, Oral, Daily, Lala Valdes, MAGISTRATE ASSISTANT, 81 mg at 10/10/24 0901 atorvastatin (Lipitor) tablet 40 mg, 40 mg, Oral, Nightly, Lala Valdes MAGISTRATE ASSISTANT, 40 mg at 10/09/24 2110 bisacodyl (Dulcolax) EC tablet 10 mg, 10 mg, Oral, Daily PRN, Lala Valdes MAGISTRATE ASSISTANT cadexomer iodine (Iodosorb) 0.9 % gel, , Topical, Daily, Tana Wooten MD, Given at 10/04/24 1311 carvedilol (Coreg) tablet 25 mg, 25 mg, Oral, BID, Leda Gaitan MD, 25 mg at 10/10/24 0901 clopidogrel (Plavix) tablet 75 mg, 75 mg, Oral, Daily, Lala Valdes APRN, 75 mg at 10/10/24 0901 glucose (Glutose) 40 % oral gel 15-30 grams of glucose, 15-30 grams of glucose, Sublingual, q15 minPRN OR dextrose 10 % (D10W) bolus 125 mL, 125 mL, Intravenous, q15 min PRN OR dextrose 10 %(D10W) bolus 250 mL, 250 mL, Intravenous, q15 min PRN OR glucagon (human recombinant) injection1 mg, 1 mg, Intramuscular, q15 min PRN, Lala Valdes, EVERT divalproex sprinkle (Depakote Sprinkle) DR capsule 250 mg, 250 mg, Oral, BID, Lala Valdes APRN,250 mg at 10/10/24 0901 heparin (porcine) injection 5,000 Units, 5,000 Units, Subcutaneous, q8h RAFAT, Lala Valdes APRN, 5,000 Units at 10/10/24 0643 insulin lispro (Admelog) 100 units/mL injection - Correction - Standard Dose, 0- 5 Units, Subcutaneous, TID with meals, Lala Valdes, MAGISTRATE ASSISTANT, 3 Units at 10/08/24 1218 insulin lispro (Admelog) injection - Correction - Nighttime Dose, 0-3 Units, Subcutaneous, Twice atnight, Lala Valdes B, MAGISTRATE ASSISTANT melatonin tablet 3 mg, 3 mg, Oral, Nightly, Lala Valdes B, MAGISTRATE ASSISTANT, 3 mg at 10/09/242109 NIFEdipine XL (Procardia XL) 24 hr tablet 60 mg, 60 mg, Oral, Daily, Leda Gaitan MD, 60 mg at 10/10/24900 polyethylene glycol (Miralax) packet 17 g, 17 g, Oral, Daily, Lala Valdes B, MAGISTRATE ASSISTANT, 17 g at 10/10/24900 sertraline (Zoloft) tablet 75 mg, 75 mg, Oral, Daily, Laith Valdesana B, MAGISTRATE ASSISTANT, 75 mg at 10/10/24 09 Insert peripheral IV, , , Once AND Saline lock IV, , , Once AND sodium chloride 0.9 % flush10 mL, 10 mL, Intravenous, q12h, 10 mL at 10/10/24 09 AND sodium chloride 0.9 % flush 10 mL, 10 mL, Intravenous, PRN, Lala Valdes B, MAGISTRATE ASSISTANT traZODone (Desyrel) tablet 100 mg, 100 mg, Oral, Nightly, Lala Valdes B, MAGISTRATE ASSISTANT, 100 mg at 10/09/242109 Facility-Administered Medications Ordered in Other Encounters: lidocaine-EPINEPHrine (PF) (Xylocaine W/EPI) 1 %-1:683426 injection - Pyxis Override Pull, , , , lidocaine-EPINEPHrine (PF) (Xylocaine W/EPI) 1 %-1:938574 injection - Pyxis Override Pull, , , [...] Ongoing, Progressing Intervention: Promote Activity and Functional Door Flowsheets (Taken 10/10/2024 0750) Activity Assistance Provided: [...] Ongoing, Progressing Intervention: Promote Activity and Functional Door Flowsheets (Taken 10/10/2024 0400) Activity Assistance Provided: [...] Assessment and Plan: Aakash Fernandez is [place] 64 y.o. male with past history of ESRD on HD MWF, T2DM, HTN, chronic HFrEF, PAD, HLD, IDD/dementia, depression/anxiety, insomnia, chronic HCV, DM foot ulcer c/b OM s/p bilateral transmetarsal amputation, and debility sent [facility] his [facility] ED for medical evaluationafter refusing care. Declining functional status - Transferred to [facility] a [facility] ago and since arrival refusing HD, to eat, participate, or take medications - sent to ED for medical evaluation and need for higher level of assist/unable to care for self/non-compliance - afebrile, VSS, no acute complaints PLAN - PT/OT consult re: placement - legal guardian is his brother, Chris Fernandez, #[phone] (not answering calls since patient admission) Essential (primary) hypertension - increased carvedilol to 25 mg twice daily, nifedipine XL 60 mg daily (hold for BP <120/80 on dialysis days) At high risk for falls - wheelchair dependent, fall precautions ESRD (end stage renal disease) on dialysis ([facility]) - HD (MWF) - renally dose meds [...] with chronic kidney disease on chronic dialysis ([facility]) - last A1c 6.3 PLAN - ACHS regular SSI - hold home glargine 5U at bedtime while trend glucose/PO intake Dementia ([facility]) - Delirium precautions - Psych recommended to [...] melatonin 3 mg at bedtime Arterial insufficiency ([facility]) - continue aspirin 81 mg daily, clopidogrel [...] systolic (congestive) and diastolic (congestive) heart failure ([facility]) - ECHO 06/27/2022: EF 45%, abnormal diastolic dysfunction - strict I/O, 2 L fluid restriction, cardiac/renal/CCHO2 diet Chronic hepatitis C without hepatic coma ([facility]) - HCV RNA PCR not detected 07/13/2023 History of transmetatarsal amputation of foot ([facility]) - chronic OM 2/2 DM foot ulcers s/p bilateral transmetarsal amputation Inpatient Checklist: Inpatient checklist: - Bowel regimen: ducolax - Code status: Full Code - Diet: PO - DVT prophylaxis: heparin - Disposition: placement (possible APS report filled today) CODE STATUS: Full Code EMERGENCY CONTACT: Extended Emergency Contact Information Primary Emergency Contact: Chris Fernandez Mobile Relation: Legal Guardian Preferred language: Turkmen Tilt Tray Driver needed? No Secondary Emergency Contact: Mariel Chavez Address: [address] [place] [address] Mobile Relation: Director Of Retail Merchandising Tilt Tray Driver needed? No Lamont Brumfield MD Division of Hospital Medicine [phone] or secure message [1] Current Facility-Administered Medications: acetaminophen (Tylenol) tablet 650 mg, 650 mg, Oral, q6h PRN, Lala Valdes, MAGISTRATE ASSISTANT alteplase (Cathflo Activase) injection 4 mg, 4 mg, Intracatheter, PRN, AntionetDaphne APRN, DNP Asenapine 3.8mg/24 hr patch, 1 patch, Transdermal, q24h, Leda Gaitan MD, 1 patchat 10/09/24 1337 aspirin chewable tablet 81 mg, 81 mg, Oral, Daily, Lala Valdes MAGISTRATE ASSISTANT, 81 mg at 10/09/24 1337 atorvastatin (Lipitor) tablet 40 mg, 40 mg, Oral, Nightly, Lala Valdes, MAGISTRATE ASSISTANT, 40 mg at 10/08/24 2044 bisacodyl (Dulcolax) EC tablet 10 mg, 10 mg, Oral, Daily PRN, Lala Valdes MAGISTRATE ASSISTANT cadexomer iodine (Iodosorb) 0.9 % gel, , Topical, Daily, Tana Wooten MD, Given at 10/04/24 1311 carvedilol (Coreg) tablet 25 mg, 25 mg, Oral, BID, Leda Gaitan MD, 25 mg at 10/09/24 1337 clopidogrel (Plavix) tablet 75 mg, 75 mg, Oral, Daily, Lala Valdes MAGISTRATE ASSISTANT, 75 mg at 10/09/24 1336 glucose (Glutose) 40 % oral gel 15-30 grams of glucose, 15-30 grams of glucose, Sublingual, q15 minPRN OR dextrose 10 % (D10W) bolus 125 mL, 125 mL, Intravenous, q15 min PRN OR dextrose 10 %(D10W) bolus 250 mL, 250 mL, Intravenous, q15 min PRN OR glucagon (human recombinant) injection1 mg, 1 mg, Intramuscular, q15 min PRN, Lala Valdes MAGISTRATE ASSISTANT divalproex sprinkle (Depakote Sprinkle) DR capsule 250 mg, 250 mg, Oral, BID, Lala Valdes, MAGISTRATE ASSISTANT,250 mg at 10/09/24 1336 heparin (porcine) injection 5,000 Units, 5,000 Units, Subcutaneous, q8h RAFAT, Lala Valdes MAGISTRATE ASSISTANT, 5,000 Units at 10/09/24 1337 insulin lispro (Admelog) 100 units/mL injection - Correction - Standard Dose, 0- 5 Units, Subcutaneous, TID with meals, Lala Valdes MAGISTRATE ASSISTANT, 3 Units at 10/08/24 1218 insulin lispro (Admelog) injection - Correction - Nighttime Dose, 0-3 Units, Subcutaneous, Twice atnight, Lala Valdes MAGISTRATE ASSISTANT melatonin tablet 3 mg, 3 mg, Oral, Nightly, Lala Valdes MAGISTRATE ASSISTANT, 3 mg at 10/08/242043 NIFEdipine XL (Procardia XL) 24 hr tablet 60 mg, 60 mg, Oral, Daily, Leda Gaitan MD, 60 mg at 10/09/24 133 polyethylene glycol (Miralax) packet 17 g, 17 g, Oral, Daily, Lala Valdes, MAGISTRATE ASSISTANT, 17 g at 10/06/24 0828 sertraline (Zoloft) tablet 75 mg, 75 mg, Oral, Daily, Lala Valdes, MAGISTRATE ASSISTANT, 75 mg at 10/09/24 1337 Insert peripheral [...] mL, Intracatheter, PRN, Rust, Daphne Galeana APRN, ADA traZODone (Desyrel) tablet 100 mg, 100 mg, Oral, Nightly, Lala Valdes MAGISTRATE ASSISTANT, 100 mg at 10/08/242043 Facility-Administered Medications Ordered in Other Encounters: lidocaine-EPINEPHrine (PF) (Xylocaine W/EPI) 1 %-1:910771 injection - Pyxis Override Pull, , , [...] Ongoing, Progressing Intervention: Promote Activity and Functional Door Flowsheets (Taken 10/09/2024 08) Activity Assistance Provided: [...] Minimize and Manage Hypoglycemia Flowsheets (Taken 10/09/2024 0800) Hypoglycemia Management: blood glucose monitored Problem: Mobility [...] Once Release to patient in MyChart: Immediate Hepatitis panel, acute Every 28 days, Once Release to patient in MyChart: Immediate Zechariah Tovar MD Nephrology [1] Asenapine, [...] at Home: walker, rolling Current Outpatient/Agency/Support Group: [facility] Anticipated Changes Related to Illness: inability to [...] Progressing Intervention: Optimize Mobility Flowsheets (Taken 10/09/2024 0331) Activity Management: activity adjusted per tolerance activity encouraged patient refuses activity Positioning/Transfer Devices: pillows * Progress Notes - Lamont Brumfield MD - 10/08/2024 6:03 PM EDT Images from the original note were not included. [facility] Inpatient Progress Note Patient: Mundo [...] Assessment and Plan: Aakash Fernandez is [place] 64 y.o. male with past history of ESRD on HD MWF, T2DM, HTN, chronic HFrEF, PAD, HLD, IDD/dementia, depression/anxiety, insomnia, chronic HCV, DM foot ulcer c/b OM s/p bilateral transmetarsal amputation, and debility sent [facility] his [facility] to ED for medical evaluationafter refusing care. Declining functional status - Transferred to [facility] a [facility] ago and since arrival refusing HD, to eat, participate, or take medications - sent to ED for medical evaluation and need for higher level of assist/unable to care for self/non-compliance - afebrile, VSS, no acute complaints PLAN - PT/OT consult re: placement - legal guardian is his brother, Chris Fernandez, #[phone] (not answering calls since patient admission) Essential (primary) hypertension - increased carvedilol to 25 mg twice daily, nifedipine XL 60 mg daily (hold for BP <120/80 on dialysis days) At high risk for falls - wheelchair dependent, fall precautions ESRD (end stage renal disease) on dialysis ([facility]) - HD (MWF) - renally dose meds [...] with chronic kidney disease on chronic dialysis ([facility]) - last A1c 6.3 PLAN - ACHS regular SSI - hold home glargine 5U at bedtime while trend glucose/PO intake Dementia ([facility]) - Delirium precautions - Psych recommended to [...] melatonin 3 mg at bedtime Arterial insufficiency ([facility]) - continue aspirin 81 mg daily, clopidogrel [...] systolic (congestive) and diastolic (congestive) heart failure ([facility]/H[facility]) - ECHO 06/27/2022: EF 45%, abnormal diastolic [...] Fernandez Mobile Relation: Legal Guardian Preferred language: Turkmen Tilt Tray Driver needed? No Secondary Emergency Contact: Mariel Chavez Address: [address] [place] [address] Mobile Relation: Director Of Retail Merchandising Tilt Tray Driver needed? No Lamont Brumfield MD Division of Hospital Medicine [phone] or secure message [1] Current Facility-Administered Medications: acetaminophen (Tylenol) tablet 650 mg, 650 mg, Oral, q6h PRN, Lala Valdes, MAGISTRATE ASSISTANT Asenapine 3.8mg/24 hr patch, 1 patch, Transdermal, q24h, Leda Gaitan MD, 1 patchat 10/08/24 1300 aspirin chewable tablet 81 mg, 81 mg, Oral, Daily, Lala Valdes, MAGISTRATE ASSISTANT, 81 mg at 10/07/24 1307 atorvastatin (Lipitor) tablet 40 mg, 40 mg, Oral, Nightly, Lala Valdes, MAGISTRATE ASSISTANT, 40 mg at 10/07/242027 bisacodyl (Dulcolax) EC tablet 10 mg, 10 mg, Oral, Daily PRN, Lala Valdes MAGISTRATE ASSISTANT cadexomer iodine (Iodosorb) 0.9 % gel, , [...] mg, 75 mg, Oral, Daily, Lala Valdes MAGISTRATE ASSISTANT, 75 mg at 10/07/24 1305 Insert peripheral IV, , , Once AND Saline lock IV, , , Once AND sodium chloride 0.9 % flush10 mL, 10 mL, Intravenous, q12h, 10 mL at 10/04/242031 AND sodium chloride 0.9 % flush 10 mL, 10 mL, Intravenous, PRN, Lucio, Gitana B, MAGISTRATE ASSISTANT traZODone (Desyrel) tablet 100 mg, 100 mg, Oral, Nightly, Lucio, Gitana B, MAGISTRATE ASSISTANT, 100 mg at 10/07/242027 Facility-Administered Medications Ordered in Other Encounters: lidocaine-EPINEPHrine (PF) (Xylocaine W/EPI) 1 %-1:683273 injection - Pyxis Override Pull, , , , lidocaine-EPINEPHrine (PF) (Xylocaine W/EPI) 1 %-1:045789 injection - Pyxis Override Pull, , , [...] Positioning: HOB lowered Taken 10/08/202451 by Nano hCau RN Pressure Reduction Devices: heel offloading device [...] 10/08/2024 2:06 PM Wound Image Wound Assessment [place];Granulation Margins Well-defined edges;Open Edges [place]-Wound Assessment Clean;Dry;Calloused [...] on LTC pending Medicaid referral and found [facility] interested in accepting patient. [...] at Home: walker, rolling Current Outpatient/Agency/Support Group: [facility] Current Discharge Risk: cognitively impaired lack of [...] Ongoing, Progressing Intervention: Promote Activity and Functional Door Flowsheets (Taken 10/08/202451) Activity Assistance Provided: assistance, [...] patients legal guardian and brother Chris Fernandez [phone]. Per Chris, he in not able to care for patient in his home and wants patient in a LTC facility. LTC pending Medicaid referral sent to [facility] as patient was discharged from there [...] Goal: Safe, Effective Therapy Delivery Outcome: Ongoing, Intervention: Optimize Device Care and Function Flowsheets [...] Ongoing, Progressing Intervention: Promote Activity and Functional Door Flowsheets (Taken 10/07/2024 1501) Activity Assistance Provided: [...] 28 days, Once Release to patient in [facility]: Immediate Hepatitis panel, acute Every 28 days, Once Release to patient in [facility]: Immediate Zechariah Tovar MD Nephrology [1] Asenapine, [...] Note Mundo Fernandez 64 y.o. male CSN: [id number] Room/Bed 710/710A Nutrition evaluation type: assessment Reason for evaluation: LOS Hospital course: Pt is a 64 y.o. male who presented to the ED on 09/30 from his [facility] for medical evaluation after refusing care. Past medical/ surgical history: Past Medical History[1] Surgical History[2] Social history: reviewed Additional comments: 10/07: Pt unavailable at time of visit, bedside care in progress. Tolerating PO with excellent intakes per nursing documentation. Vitals and Basic Assessment: BP: (!) 186/78 Temp: 36.4 ??C (97.6 ??F) Oxygen Therapy: None (Room air) [place] Coma Scale Score: 14 Sav Scale Score: [...] (Calculated): 26.7 Weight Evaluation: Overweight (BMI 25-29.9) [place] Body Weight (kg): 75.5 Percent [place] Body Weight: 112 Wt Readings from Last [...] lb) Estimated Needs: Kcal/ K-30 Kcal Provided: 4935-9456 Kcal Needs Based On: Current weight (84.4 kg) Gm Protein/ Kg : 1.2-1.5 Protein Provided: 101-127 Protein Needs Based On: Current weight (84.4 kg) Fluid Provided: 1 ml/kcal or per MD team Metabolic Cart Study Results: Current Nutrition Intake: Diet Supplements: None Diet Order: Adult Diet Diet Texture: Regular Adult Carbohydrate Restriction: Consistent CHO 2 (3402-3119 Preet, 80 g/meal) Adult Sodium Restriction: 2,000 mg Na Fat Restriction: Cardiac Electrolyte Restriction: Renal Adult Fluid Restriction / 24 hr: 2000 ml fluid Percent Meals Eaten (%): 86% avg x 15 meals (10/02-10/07) Diet Experience and Nutrition History: Diet Education Provided: Will monitor Pertinent home medications: Medications Ordered Prior to Encounter[5] [facility] needs: Nutrition Focused Physical Exam: Unable to [...] per acuity. Acuity Level: 1 Lexi Hernandez, RD, MS, LD [1] Past Medical History: Diagnosis Date Alcohol use disorder in remission Anemia in chronic kidney disease (CODE) 04/30/2023 Anxiety Arterial insufficiency (CMS/HCC) 05/18/2021 Benign prostatic hyperplasia Central line-associated bloodstream infection 06/29/2022 Chronic combined systolic (congestive) and diastolic (congestive) heart failure (CMS/HCC) 02/18/2022 Chronic hepatitis C without hepatic coma (CMS/HCC) 06/03/2014 Dementia ([facility] 02/18/2022 Depression Diabetic peripheral neuropathy ([facility]) ESRD (end stage renal disease) on dialysis ([facility]) 09/16/2021 Essential hypertension 11/23/2011 GERD (gastroesophageal reflux disease) Hemorrhoids Hyperlipidemia Hypoparathyroidism 11/23/2011 Infection of AV graft for dialysis ([facility]) 02/18/2022 Added automatically from request for surgery [id number] Insomnia, unspecified 12/22/2021 Methicillin resistant Staphylococcus aureus infection, unspecified site Mild intellectual disabilities 08/30/2019 MSSA bacteremia 03/04/2022 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 06/07/2024 Sensorineural hearing loss, bilateral 01/11/2018 Type 2 diabetes mellitus [2] Past Surgical History: Procedure Laterality Date CATARACT EXTRACTION W/ INTRAOCULAR LENS IMPLANT N/A Cataract Phacoemulsification With Intraocular Lens Implantation from [employer] EXPLORATORY LAPAROTOMY stab incision abdomen EYE SURGERY N/A Eye Surgery from [facility] FOOT SURGERY N/A Surgery Foot Amputation Metatarsal And Toe from [employer] OTHER SURGICAL HISTORY Right Tympanic Membrane Repair - Right Ear from [employer] OTHER SURGICAL HISTORY Right Surgery Right Foot Amputation MTP from [employer] [3] Asenapine, 1 patch, Transdermal, q24h aspirin, [...] Last Admin lidocaine-EPINEPHrine (PF) (Xylocaine W/EPI) 1 %-1:033290 injection - Pyxis Override Pull lidocaine-EPINEPHrine (PF) (Xylocaine W/EPI) 1 %-1:772590 injection - Pyxis Override Pull Current Outpatient [...] 30 capsule 3 [DISCONTINUED] Epoetin Rj-epbx (Retacrit) 06632 UNIT/ML injection Inject 13,400 Units/kg under the [...] from the original note were not included. [facility] Inpatient Progress Note Patient: Mundo Fernandez [...] Assessment and Plan: Aakash Fernandez is [place] 64 y.o. male with past history of ESRD on HD MWF, T2DM, HTN, chronic HFrEF, PAD, HLD, IDD/dementia, depression/anxiety, insomnia, chronic HCV, DM foot ulcer c/b OM s/p bilateral transmetarsal amputation, and debility sent from his [facility] to ED for medical evaluationafter refusing care. Declining functional status - Transferred to [facility] a week ago and since arrival refusing HD, to eat, participate, or take medications - sent to ED for medical evaluation and need for higher level of assist/unable to care for self/non-compliance - afebrile, VSS, no acute complaints PLAN - PT/OT consult re: placement - legal guardian is his brother, Chris Fernandez, #[phone] (not answering calls since patient admission) Essential (primary) hypertension - increased carvedilol to 25 mg twice daily, nifedipine XL 60 mg daily (hold for BP <120/80 on dialysis days) At high risk for falls - wheelchair dependent, fall precautions ESRD (end stage renal disease) on dialysis ([facility]) - HD (MWF) - renally dose meds [...] with chronic kidney disease on chronic dialysis ([facility]) - last A1c 6.3 PLAN - ACHS regular SSI - hold home glargine 5U at bedtime while trend glucose/PO intake Dementia ([facility]) - Delirium precautions - Psych recommended to [...] melatonin 3 mg at bedtime Arterial insufficiency ([facility]) - continue aspirin 81 mg daily, clopidogrel [...] systolic (congestive) and diastolic (congestive) heart failure ([facility]) - ECHO 06/27/2022: EF 45%, abnormal diastolic dysfunction - strict I/O, 2 L fluid restriction, cardiac/renal/CCHO2 diet Chronic hepatitis C without hepatic coma ([facility]) - HCV RNA PCR not detected 07/13/2023 History of transmetatarsal amputation of foot ([facility]) - chronic OM 2/2 DM foot ulcers s/p bilateral transmetarsal amputation Inpatient Checklist: Inpatient checklist: - Bowel regimen: ducolax - Code status: Full Code - Diet: PO - DVT prophylaxis: heparin - Disposition: placement (possible APS report filled today) CODE STATUS: Full Code EMERGENCY CONTACT: Extended Emergency Contact Information Primary Emergency Contact: Chris Fernandez Mobile Relation: Legal Guardian Preferred language: Turkmen Tilt Tray Driver needed? No Secondary Emergency Contact: Mariel Chavez Address: [address] [place] [address] Mobile Relation: Director Of Retail Merchandising Tilt Tray Driver needed? No Leda Kelley MD [facility] Certified Presiding Judge Pager [phone] [1] Current Facility-Administered Medications: acetaminophen (Tylenol) tablet 650 mg, 650 mg, Oral, q6h PRN, Laith Valdesana B, MAGISTRATE ASSISTANT Asenapine 3.8mg/24 hr patch, 1 patch, Transdermal, q24h, Leda Gaitan MD, 1 patchat 10/06/24 1324 aspirin chewable tablet 81 mg, 81 mg, Oral, Daily, Lucio, Gitana B, MAGISTRATE ASSISTANT, 81 mg at 10/06/24 0828 atorvastatin (Lipitor) tablet 40 mg, 40 mg, Oral, Nightly, Lucio, Gitana B, MAGISTRATE ASSISTANT, 40 mg at 10/06/242029 bisacodyl (Dulcolax) EC tablet 10 mg, 10 mg, Oral, Daily PRN, Lucio, Gitana B, MAGISTRATE ASSISTANT cadexomer iodine (Iodosorb) 0.9 % gel, , Topical, Daily, Tana Wooten MD, Given at 10/04/24 1311 carvedilol (Coreg) tablet 12.5 mg, 12.5 mg, Oral, BID, Lucio, Gitana B, MAGISTRATE ASSISTANT, 12.5 mg at 10/06/242029 clopidogrel (Plavix) tablet 75 mg, 75 mg, Oral, Daily, Lucio, Gitana B, MAGISTRATE ASSISTANT, 75 mg at 10/06/24 0828 glucose (Glutose) 40 % oral gel 15-30 grams of glucose, 15-30 grams of glucose, Sublingual, q15 minPRN OR dextrose 10 % (D10W) bolus 125 mL, 125 mL, Intravenous, q15 min PRN OR dextrose 10 %(D10W) bolus 250 mL, 250 mL, Intravenous, q15 min PRN OR glucagon (human recombinant) injection1 mg, 1 mg, Intramuscular, q15 min PRN, Lala Valdes MAGISTRATE ASSISTANT divalproex sprinkle (Depakote Sprinkle) DR capsule 250 mg, 250 mg, Oral, BID, Lala Valdes, MAGISTRATE ASSISTANT,250 mg at 10/06/242029 heparin (porcine) injection 5,000 Units, 5,000 Units, Subcutaneous, q8h RAFAT, Lala Valdes MAGISTRATE ASSISTANT, 5,000 Units at 10/07/24 0512 insulin lispro (Admelog) 100 units/mL injection - Correction - Standard Dose, 0- 5 Units, Subcutaneous, TID with meals, Lala Valdes MAGISTRATE ASSISTANT, 1 Units at 10/02/24 1706 insulin lispro (Admelog) injection - Correction - Nighttime Dose, 0-3 Units, Subcutaneous, Twice atnight, Lala Valdes APRN melatonin tablet 3 mg, 3 mg, Oral, Nightly, Lala Valdes, MAGISTRATE ASSISTANT, 3 mg at 10/06/242029 NIFEdipine XL (Procardia XL) 24 hr tablet 60 mg, 60 mg, Oral, Daily, Leda Gaitan MD polyethylene glycol (Miralax) packet 17 g, 17 g, Oral, Daily, Lala Valdes, MAGISTRATE ASSISTANT, 17 g at 10/06/24 0828 sertraline (Zoloft) tablet 75 mg, 75 mg, Oral, Daily, Lala Valdes, MAGISTRATE ASSISTANT, 75 mg at 10/06/24 0828 Insert peripheral IV, , , Once AND Saline lock IV, , , Once AND sodium chloride 0.9 % flush10 mL, 10 mL, Intravenous, q12h, 10 mL at 10/04/242031 AND sodium chloride 0.9 % flush 10 mL, 10 mL, Intravenous, PRN, Lala Valdes B, MAGISTRATE ASSISTANT traZODone (Desyrel) tablet 100 mg, 100 mg, Oral, Nightly, Lala Valdes, MAGISTRATE ASSISTANT, 100 mg at 10/06/242029 Facility-Administered Medications Ordered in Other Encounters: lidocaine-EPINEPHrine (PF) (Xylocaine W/EPI) 1 %-1:434678 injection - Pyxis Override Pull, , , , lidocaine-EPINEPHrine (PF) (Xylocaine W/EPI) 1 %-1:439697 injection - Pyxis Override Pull, , , [...] Ongoing, Progressing Intervention: Promote Activity and Functional Door Flowsheets Taken 10/06/2024 1600 by Arturo Salazar [...] from the original note were not included. [facility] Inpatient Progress Note Patient: Mundo [...] Assessment and Plan: Aakash Fernandez is [place] 64 y.o. male with past history of ESRD on HD MWF, T2DM, HTN, chronic HFrEF, PAD, HLD, IDD/dementia, depression/anxiety, insomnia, chronic HCV, DM foot ulcer c/b OM s/p bilateral transmetarsal amputation, and debility sent from his [facility] to ED for medical evaluationafter refusing care. Declining functional status - Transferred to [facility] a week ago and since arrival refusing HD, to eat, participate, or take medications - sent to ED for medical evaluation and need for higher level of assist/unable to care for self/non-compliance - afebrile, VSS, no acute complaints PLAN - PT/OT consult re: placement - legal guardian is his brother, Chris Fernandez, #[phone] (not answering calls since patient admission) At high risk for falls - wheelchair dependent, fall precautions ESRD (end stage renal disease) on dialysis ([facility]) - HD (MWF) - renally dose meds [...] with chronic kidney disease on chronic dialysis ([facility]) - last A1c 6.3 PLAN - ACHS regular SSI - hold home glargine 5U at bedtime while trend glucose/PO intake Dementia ([facility]) - Delirium precautions - Psych recommended to [...] BP <120/80 on dialysis days) Arterial insufficiency ([facility]) - continue aspirin 81 mg daily, clopidogrel [...] systolic (congestive) and diastolic (congestive) heart failure ([facility]) - ECHO 06/27/2022: EF 45%, abnormal diastolic [...] Fernandez Mobile Relation: Legal Guardian Preferred language: Turkmen Tilt Tray Driver needed? No Secondary Emergency Contact: Mariel Chavez Address: [address] [place] [address] Mobile Relation: Director Of Retail Merchandising Tilt Tray Driver needed? No Leda Kelley MD [facility] Certified Presiding Judge Pager [phone] [1] Current Facility-Administered Medications: acetaminophen (Tylenol) tablet 650 mg, 650 mg, Oral, q6h PRN, Lucio, Gitana B, MAGISTRATE ASSISTANT Asenapine 3.8mg/24 hr patch, 1 patch, Transdermal, q24h, Leda Gaitan MD, 1 patchat 10/05/24 1427 aspirin chewable tablet 81 mg, 81 mg, Oral, Daily, Lucio, Gitana B, MAGISTRATE ASSISTANT, 81 mg at 10/06/24 0828 atorvastatin (Lipitor) tablet 40 mg, 40 mg, Oral, Nightly, Lucio Gitana B, MAGISTRATE ASSISTANT, 40 mg at 10/05/24 2105 bisacodyl (Dulcolax) EC tablet 10 mg, 10 mg, Oral, Daily PRN, Lucio, Gitana B, MAGISTRATE ASSISTANT cadexomer iodine (Iodosorb) 0.9 % gel, , Topical, Daily, Tana Wooten MD, Given at 10/04/24 1311 carvedilol (Coreg) tablet 12.5 mg, 12.5 mg, Oral, BID, Lucio, Gitana B, MAGISTRATE ASSISTANT, 12.5 mg at 10/06/24 0828 clopidogrel (Plavix) tablet 75 mg, 75 mg, Oral, Daily, Lucio, Gitana B, MAGISTRATE ASSISTANT, 75 mg at 10/06/24 0828 glucose (Glutose) [...] Intramuscular, q15 min PRN, Lala Valdes B, MAGISTRATE ASSISTANT divalproex sprinkle (Depakote Sprinkle) DR capsule 250 mg, 250 mg, Oral, BID, Lala Valdes B, MAGISTRATE ASSISTANT,250 mg at 10/06/24 0828 heparin (porcine) injection 5,000 Units, 5,000 Units, Subcutaneous, q8h RAFAT, Lala Valdes, MAGISTRATE ASSISTANT, 5,000 Units at 10/06/24 0556 insulin lispro (Admelog) 100 units/mL injection - Correction - Standard Dose, 0- 5 Units, Subcutaneous, TID with meals, Lala Valdes B, MAGISTRATE ASSISTANT, 1 Units at 10/02/24 1706 insulin lispro (Admelog) injection - Correction - Nighttime Dose, 0-3 Units, Subcutaneous, Twice atnight, Lala Valdes B, MAGISTRATE ASSISTANT melatonin tablet 3 mg, 3 mg, Oral, Nightly, Lala Valdes, MAGISTRATE ASSISTANT, 3 mg at 10/05/242104 NIFEdipine XL (Procardia XL) 24 hr tablet 30 mg, 30 mg, Oral, Daily, Laith Valdesana B, MAGISTRATE ASSISTANT, 30 mg at10/06/24 0828 polyethylene glycol (Miralax) packet 17 g, 17 g, Oral, Daily, Lala Valdes B, MAGISTRATE ASSISTANT, 17 g at 10/06/24 0828 sertraline (Zoloft) tablet 75 mg, 75 mg, Oral, Daily, Lucio Gitana B, MAGISTRATE ASSISTANT, 75 mg at 10/06/24 0828 Insert peripheral IV, , , Once AND Saline lock IV, , , Once AND sodium chloride 0.9 % flush10 mL, 10 mL, Intravenous, q12h, 10 mL at 07/18/25 2032 AND sodium chloride 0.9 % flush 10 mL, 10 mL, Intravenous, PRN, Lucio, Gitana B, MAGISTRATE ASSISTANT traZODone (Desyrel) tablet 100 mg, 100 mg, Oral, Nightly, Lucio Gitana B, MAGISTRATE ASSISTANT, 100 mg at 10/05/242104 Facility-Administered Medications Ordered [...] Ongoing, Progressing Intervention: Promote Activity and Functional Door Flowsheets (Taken 10/05/2024 0800) Activity Assistance Provided: [...] Manage Infection Flowsheets Taken 10/05/2024 1024 by Arutro Salazar RN Infection Prevention: hand hygiene promoted [...] utilized Taken 10/05/2024 1029 by Arturo Salazar, agriculture laboratory technician/Support System Care: self-care encouraged Goal: Optimal Functional Ability Outcome: Ongoing, Progressing Intervention: Optimize Functional Ability Flowsheets (Taken 10/05/2024 0800 by Arturo Salazar, TRISTIN) Activity Management: activity adjusted per tolerance Activity Assistance Provided: assistance, 2 people Goal: Blood Glucose Level Within Target Range Outcome: Ongoing, Progressing Intervention: Optimize Glycemic Control Flowsheets (Taken 10/05/2024 1029 by Arturo Salazar, TRISTIN) Hyperglycemia Management: blood glucose monitored Goal: Minimize Hypoglycemia Risk Outcome: Ongoing, Progressing Intervention: Minimize and Manage Hypoglycemia Flowsheets (Taken 10/05/2024 1029 by Arturo Salazar RN) Hypoglycemia Management: blood glucose monitored * Progress Notes - Leda Gaitan MD - 10/05/2024 11:40 AM EDT Images from the original note were not included. [facility] Inpatient Progress Note Patient: Mundo [...] Assessment and Plan: Aakash Fernandez is [place] 64 y.o. male with past history of ESRD on HD MWF, T2DM, HTN, chronic HFrEF, PAD, HLD, IDD/dementia, depression/anxiety, insomnia, chronic HCV, DM foot ulcer c/b OM s/p bilateral transmetarsal amputation, and debility sent from his [facility] to ED for medical evaluationafter refusing care. Declining functional status - Transferred to [facility] a week ago and since arrival refusing HD, to eat, participate, or take medications - sent to ED for medical evaluation and need for higher level of assist/unable to care for self/non-compliance - afebrile, VSS, no acute complaints PLAN - PT/OT consult re: placement - legal guardian is his brother, Chris Fernandez, #[phone] (not answering calls since patient admission) At high risk for falls - wheelchair dependent, fall precautions ESRD (end stage renal disease) on dialysis ([facility]) - HD (MWF) - renally dose meds [...] with chronic kidney disease on chronic dialysis ([facility]) - last A1c 6.3 PLAN - ACHS regular SSI - hold home glargine 5U at bedtime while trend glucose/PO intake Dementia ([facility]) - Delirium precautions - Psych recommended to [...] Fernandez Mobile Relation: Legal Guardian Preferred language: Turkmen Tilt Tray Driver needed? No Secondary Emergency Contact: Mariel Chavez Address: [address] [place] [address] [facility] Mobile Relation: Director Of Retail Merchandising Tilt Tray Driver needed? No Leda Kelley MD [facility] Certified Presiding Judge Pager [phone] [1] Current Facility-Administered Medications: acetaminophen (Tylenol) tablet 650 mg, 650 mg, Oral, q6h PRN, Lala Valdes, MAGISTRATE ASSISTANT Asenapine 3.8mg/24 hr patch, 1 patch, Transdermal, q24h, Leda Gaitan MD, 1 patchat 10/04/24 1342 aspirin chewable tablet 81 mg, 81 mg, Oral, Daily, Lala Valdes, MAGISTRATE ASSISTANT, 81 mg at 10/05/24 0855 atorvastatin (Lipitor) tablet 40 mg, 40 mg, Oral, Nightly, Lala Valdes, MAGISTRATE ASSISTANT, 40 mg at 10/04/242031 bisacodyl (Dulcolax) EC tablet 10 mg, 10 mg, Oral, Daily PRN, Lala Valdes, MAGISTRATE ASSISTANT cadexomer iodine (Iodosorb) 0.9 % gel, , Topical, Daily, Tana Wooten MD, Given at 10/04/24 1311 carvedilol (Coreg) tablet 12.5 mg, 12.5 mg, Oral, BID, Lala Valdes, MAGISTRATE ASSISTANT, 12.5 mg at 10/05/24 0855 clopidogrel (Plavix) tablet 75 mg, 75 mg, Oral, Daily, Lala Valdes, MAGISTRATE ASSISTANT, 75 mg at 10/05/24 0855 glucose (Glutose) 40 % oral gel 15-30 grams of glucose, 15-30 grams of glucose, Sublingual, q15 minPRN OR dextrose 10 % (D10W) bolus 125 mL, 125 mL, Intravenous, q15 min PRN OR dextrose 10 %(D10W) bolus 250 mL, 250 mL, Intravenous, q15 min PRN OR glucagon (human recombinant) injection1 mg, 1 mg, Intramuscular, q15 min PRN, Lala Valdes, MAGISTRATE ASSISTANT divalproex sprinkle (Depakote Sprinkle) DR capsule 250 mg, 250 mg, Oral, BID, Lala Valdes, MAGISTRATE ASSISTANT,250 mg at 10/05/24 0855 heparin (porcine) injection 5,000 Units, 5,000 Units, Subcutaneous, q8h RAFAT, Lala Valdes MAGISTRATE ASSISTANT, 5,000 Units at 10/05/24 0517 insulin lispro (Admelog) 100 units/mL injection - Correction - Standard Dose, 0- 5 Units, Subcutaneous, TID with meals, Lala Valdes MAGISTRATE ASSISTANT, 1 Units at 10/02/24 1706 insulin lispro (Admelog) injection - Correction - Nighttime Dose, 0-3 Units, Subcutaneous, Twice atnight, Lucio, Gitana B, MAGISTRATE ASSISTANT melatonin tablet 3 mg, 3 mg, Oral, Nightly, Lucio, Gitana B, MAGISTRATE ASSISTANT, 3 mg at 10/04/242031 mupirocin (Bactroban) 2 % ointment 1 Application, 1 Application, Each Nostril, BID, Tana Wooten MD, 1 Application at 10/05/24 0858 NIFEdipine XL (Procardia XL) 24 hr tablet 30 mg, 30 mg, Oral, Daily, Lucio, Gitana B, MAGISTRATE ASSISTANT, 30 mg at10/05/24855 polyethylene glycol (Miralax) packet 17 g, 17 g, Oral, Daily, Lucio, Gitana B, MAGISTRATE ASSISTANT, 17 g at 10/05/24855 sertraline (Zoloft) tablet 75 mg, 75 mg, Oral, Daily, Lucio, Gitana B, MAGISTRATE ASSISTANT, 75 mg at 10/05/24855 Insert peripheral IV, , , Once AND Saline lock IV, , , Once AND sodium chloride 0.9 % flush10 mL, 10 mL, Intravenous, q12h, 10 mL at 10/04/242031 AND sodium chloride 0.9 % flush 10 mL, 10 mL, Intravenous, PRN, Lucio, Gitana B, MAGISTRATE ASSISTANT traZODone (Desyrel) tablet 100 mg, 100 mg, Oral, Nightly, Lucio, Gitana B, MAGISTRATE ASSISTANT, 100 mg at 10/04/242031 Facility-Administered Medications Ordered in Other Encounters: lidocaine-EPINEPHrine (PF) (Xylocaine W/EPI) 1 %-1:458164 injection - Pyxis Override Pull, , , , lidocaine-EPINEPHrine (PF) (Xylocaine W/EPI) 1 %-1:687585 injection - Pyxis Override Pull, , , [...] Individualized Care Needs: Fall risk Taken 10/05/2024 08 Anxieties, Fears or Concerns: none Goal: Absence [...] Ongoing, Progressing Intervention: Promote Activity and Functional Door Flowsheets (Taken 10/05/2024 0800) Activity Assistance Provided: [...] Ongoing, Progressing Intervention: Promote Activity and Functional Door Flowsheets Taken 10/05/2024 035 by Serene Boothe [...] compassionate listening presence, encouragement and spiritual support. [employer] remains available as needed. Patient Profile: Spiritual [...] from the original note were not included. [facility] Inpatient Progress Note Patient: Mundo [...] Assessment and Plan: Aakash Fernandez is [place] 64 y.o. male with past history of ESRD on HD MWF, T2DM, HTN, chronic HFrEF, PAD, HLD, IDD/dementia, depression/anxiety, insomnia, chronic HCV, DM foot ulcer c/b OM s/p bilateral transmetarsal amputation, and debility sent from his [facility] to ED for medical evaluationafter refusing care. Declining functional status - Transferred to [facility] a week ago and since arrival refusing HD, to eat, participate, or take medications - sent to ED for medical evaluation and need for higher level of assist/unable to care for self/non-compliance - afebrile, VSS, no acute complaints PLAN - PT/OT consult re: placement - legal guardian is his brother, Chris Fernandez, #[phone] At high risk for falls - wheelchair dependent, fall precautions ESRD (end stage renal disease) on dialysis ([facility]) - HD (MWF) - renally dose meds [...] with chronic kidney disease on chronic dialysis ([facility]) - last A1c 6.3 PLAN - ACHS regular SSI - hold home glargine 5U at bedtime while trend glucose/PO intake Dementia ([facility]) - Delirium precautions - Psych recommended to [...] Fernandez Mobile Relation: Legal Guardian Preferred language: Turkmen Tilt Tray Driver needed? No Secondary Emergency Contact: Mariel Chavez Address: [address] [place] [address] [facility] Mobile Relation: Director Of Retail Merchandising Tilt Tray Driver needed? No Leda Kelley MD [facility] Certified Presiding Judge Pager [phone] [1] Current Facility-Administered Medications: acetaminophen (Tylenol) tablet 650 mg, 650 mg, Oral, q6h PRN, Lala Valdes, MAGISTRATE ASSISTANT alteplase (Cathflo Activase) injection 4 mg, 4 mg, Intracatheter, PRN, Daphne Landry, MAGISTRATE ASSISTANT, DNP aspirin chewable tablet 81 mg, 81 mg, Oral, Daily, Lala Valdes, MAGISTRATE ASSISTANT, 81 mg at 10/03/24 0819 atorvastatin (Lipitor) tablet 40 mg, 40 mg, Oral, Nightly, Lala Valdes, MAGISTRATE ASSISTANT, 40 mg at 10/03/242028 bisacodyl (Dulcolax) EC tablet 10 mg, 10 mg, Oral, Daily PRN, Lala Valdes B, MAGISTRATE ASSISTANT cadexomer iodine (Iodosorb) 0.9 % gel, , Topical, Daily, Tana Wooten MD, Given at 10/03/24820 carvedilol (Coreg) tablet 12.5 mg, 12.5 mg, Oral, BID, Lala Valdes, MAGISTRATE ASSISTANT, 12.5 mg at 10/03/242029 clopidogrel (Plavix) tablet 75 mg, 75 mg, Oral, Daily, Lala Valdes, MAGISTRATE ASSISTANT, 75 mg at 10/03/24818 glucose (Glutose) 40 % oral gel 15-30 grams of glucose, 15-30 grams of glucose, Sublingual, q15 minPRN OR dextrose 10 % (D10W) bolus 125 mL, 125 mL, Intravenous, q15 min PRN OR dextrose 10 %(D10W) bolus 250 mL, 250 mL, Intravenous, q15 min PRN OR glucagon (human recombinant) injection1 mg, 1 mg, Intramuscular, q15 min PRN, Lala Valdes, MAGISTRATE ASSISTANT divalproex sprinkle (Depakote Sprinkle) DR capsule 250 mg, 250 mg, Oral, BID, Lala Valdes, MAGISTRATE ASSISTANT,250 mg at 10/03/242029 heparin (porcine) injection 5,000 Units, 5,000 Units, Subcutaneous, q8h RAFAT, Lala Valdes, MAGISTRATE ASSISTANT, 5,000 Units at 10/04/24 0532 insulin lispro (Admelog) 100 units/mL injection - Correction - Standard Dose, 0- 5 Units, Subcutaneous, TID with meals, Lala Valdes MAGISTRATE ASSISTANT, 1 Units at 10/02/24 1706 insulin lispro (Admelog) injection - Correction - Nighttime Dose, 0-3 Units, Subcutaneous, Twice atnight, Lala Valdes APRN melatonin tablet 3 mg, 3 mg, Oral, Nightly, Lala Valdes, MAGISTRATE ASSISTANT, 3 mg at 10/03/242029 mupirocin (Bactroban) 2 % ointment 1 Application, 1 Application, Each Nostril, BID, Tana Wooten MD, 1 Application at 10/03/242029 NIFEdipine XL (Procardia XL) 24 hr tablet 30 mg, 30 mg, Oral, Daily, Lucio, Gitana B, MAGISTRATE ASSISTANT, 30 mg at10/03/24818 polyethylene glycol (Miralax) packet 17 g, 17 g, Oral, Daily, Lucio, Gitana B, MAGISTRATE ASSISTANT, 17 g at 10/03/24818 sertraline (Zoloft) tablet 75 mg, 75 mg, Oral, Daily, Lucio, Gitana B, MAGISTRATE ASSISTANT, 75 mg at 10/03/24818 Insert peripheral IV, , , Once AND Saline lock IV, , , Once AND sodium chloride 0.9 % flush10 mL, 10 mL, Intravenous, q12h, 10 mL at 10/03/242030 AND sodium chloride 0.9 % flush 10 mL, 10 mL, Intravenous, PRN, Lucio, Gitana B, MAGISTRATE ASSISTANT sodium citrate anticoagulant 4 % flush 6 mL, 6 mL, Intracatheter, PRN, Antionet, Daphne Galeana APRN, DNP traZODone (Desyrel) tablet 100 mg, 100 mg, Oral, Nightly, Lucio, Gitana B, MAGISTRATE ASSISTANT, 100 mg at 10/03/242029 Facility-Administered Medications Ordered in Other Encounters: lidocaine-EPINEPHrine (PF) (Xylocaine W/EPI) 1 %-1:406898 injection - Pyxis Override Pull, , , , lidocaine-EPINEPHrine (PF) (Xylocaine W/EPI) 1 %-1:700758 injection - Pyxis Override Pull, , , [...] 28 days, Once Release to patient in [facility]: Immediate Hepatitis panel, acute Every 28 days, Once Release to patient in [facility]: Immediate Zechariah Tovar MD Nephrology [1] aspirin, [...] Ongoing, Progressing Intervention: Promote Activity and Functional Door Flowsheets (Taken 10/04/2024 012) Activity Assistance Provided: [...] Note Mundo Fernandez 64 y.o. male CSN: [id number] Admission: 09/30/2024 3:29 PM Primary Problem: Declining [...] appropriate for SNF. Patient was previously at [facility] for over a year for LTC. CM [...] at 10/03/2024 0838 Last data filed at 10/02/20241999 Gross per 24 hour Intake 540 ml [...] Assessment and Plan: Aakash Fernandez is [place] 64 y.o. male with past history of ESRD on HD MWF, T2DM, HTN, chronic HFrEF, PAD, HLD, IDD/dementia, depression/anxiety, insomnia, chronic HCV, DM foot ulcer c/b OM s/p bilateral transmetarsal amputation, and debility sent from his [facility] to ED for medical evaluationafter refusing care. Declining functional status - Transferred to [facility] a week ago and since arrival refusing HD, to eat, participate, or take medications - sent to ED for medical evaluation and need for higher level of assist/unable to care for self/non-compliance - afebrile, VSS, no acute complaints PLAN - PT/OT consult re: placement - legal guardian is his brother, Chris Fernandez, #[phone] At high risk for falls - wheelchair dependent, fall precautions ESRD (end stage renal disease) on dialysis ([facility]) - Missed HD (MWF) , last session [...] with chronic kidney disease on chronic dialysis ([facility]) - last A1c 4.8% over a year ago - presenting glucose 185, repeat A1c pending PLAN - ACHS regular SSI - hold home glargine 5U at bedtime while trend glucose/PO intake Dementia ([facility]) - Delirium precautions - Psych recommended to [...] BP <120/80 on dialysis days) Arterial insufficiency ([facility]) - continue aspirin 81 mg daily, clopidogrel [...] systolic (congestive) and diastolic (congestive) heart failure ([facility]) - ECHO 06/27/2022: EF 45%, abnormal diastolic [...] Fernandez Mobile Relation: Legal Guardian Preferred language: Turkmen Tilt Tray Driver needed? No Secondary Emergency Contact: Mariel Chavez Address: [address] [place] [address] Mobile Relation: Director Of Retail Merchandising Tilt Tray Driver needed? No Leda Kelley MD [facility] Certified Presiding Judge Pager [phone] [1] Current Facility-Administered Medications: acetaminophen (Tylenol) tablet 650 mg, 650 mg, Oral, q6h PRN, Lucio, Gitana B, MAGISTRATE ASSISTANT aspirin chewable tablet 81 mg, 81 mg, Oral, Daily, Lcuio, Gitana B, MAGISTRATE ASSISTANT, 81 mg at 10/03/24818 atorvastatin (Lipitor) tablet 40 mg, 40 mg, Oral, Nightly, Lucio, Gitana B, MAGISTRATE ASSISTANT, 40 mg at 10/02/242056 bisacodyl (Dulcolax) EC tablet 10 mg, 10 mg, Oral, Daily PRN, Lucio, Gitana B, MAGISTRATE ASSISTANT cadexomer iodine (Iodosorb) 0.9 % gel, , Topical, Daily, Tana Wooten MD, Given at 10/03/24820 carvedilol (Coreg) tablet 12.5 mg, 12.5 mg, Oral, BID, Lucio, Gitana B, MAGISTRATE ASSISTANT, 12.5 mg at 10/03/24 08 clopidogrel (Plavix) tablet 75 mg, 75 mg, Oral, Daily, Lucio, Gitana B, MAGISTRATE ASSISTANT, 75 mg at 10/03/24 0819 glucose (Glutose) 40 % oral gel 15-30 grams of glucose, 15-30 grams of glucose, Sublingual, q15 minPRN OR dextrose 10 % (D10W) bolus 125 mL, 125 mL, Intravenous, q15 min PRN OR dextrose 10 %(D10W) bolus 250 mL, 250 mL, Intravenous, q15 min PRN OR glucagon (human recombinant) injection1 mg, 1 mg, Intramuscular, q15 min PRN, Lala Valdes, MAGISTRATE ASSISTANT divalproex sprinkle (Depakote Sprinkle) DR capsule 250 mg, 250 mg, Oral, BID, Lala Valdes, MAGISTRATE ASSISTANT,250 mg at 10/03/24 08 heparin (porcine) injection 5,000 Units, 5,000 Units, Subcutaneous, q8h RAFAT, Lala Valdes MAGISTRATE ASSISTANT, 5,000 Units at 10/03/24 0543 insulin lispro (Admelog) 100 units/mL injection - Correction - Standard Dose, 0- 5 Units, Subcutaneous, TID with meals, Lala Valdes APRN, 1 Units at 10/02/24 1706 insulin lispro (Admelog) injection - Correction - Nighttime Dose, 0-3 Units, Subcutaneous, Twice atnight, Lala Valdes MAGISTRATE ASSISTANT melatonin tablet 3 mg, 3 mg, Oral, Nightly, Lala Valdes, MAGISTRATE ASSISTANT, 3 mg at 10/02/242056 mupirocin (Bactroban) 2 % ointment 1 Application, 1 Application, Each Nostril, BID, Tana Wooetn MD, 1 Application at 10/03/24818 NIFEdipine XL (Procardia XL) 24 hr tablet 30 mg, 30 mg, Oral, Daily, Lala Valdes, MAGISTRATE ASSISTANT, 30 mg at10/03/24 08 polyethylene glycol (Miralax) packet 17 g, 17 g, Oral, Daily, Lala Valdes, MAGISTRATE ASSISTANT, 17 g at 10/03/24 08 sertraline (Zoloft) tablet 75 mg, 75 mg, Oral, Daily, Lala Valdes, MAGISTRATE ASSISTANT, 75 mg at 10/03/24 08 Insert peripheral IV, , , Once AND Saline lock IV, , , Once AND sodium chloride 0.9 % flush10 mL, 10 mL, Intravenous, q12h, 10 mL at 10/03/24 0819 AND sodium chloride 0.9 % flush 10 mL, 10 mL, Intravenous, PRN, Lucio, Gitana B, MAGISTRATE ASSISTANT traZODone (Desyrel) tablet 100 mg, 100 mg, Oral, Nightly, Lcuio Gitana B, MAGISTRATE ASSISTANT, 100 mg at 10/02/242056 Facility-Administered Medications Ordered in Other Encounters: lidocaine-EPINEPHrine (PF) (Xylocaine W/EPI) 1 %-1:825229 injection - Pyxis Override Pull, , , , lidocaine-EPINEPHrine (PF) (Xylocaine W/EPI) 1 %-1:066309 injection - Pyxis Override Pull, , , [...] anxiety, and depression who initially presented to [facility] from [facility] with worsening foot wounds, lack of medication [...] ED as follows: (from Mariel, caregiver at [facility], ) She states that the patient has been in a custodial for the last year with a high level of assist. One week ago he was transferred from the custodial to her m[facility] under her groups care. She says since [...] that patient had been living at a custodial until about 2 weeks ago. While he was at the custodial, they had concerns about the care he was receiving. They moved him to a mcc with the hope that this would be happier environment for him. Since he moved to the mcc, he has not been taking his medications. [...] recently prescribed by Debbie Newberry NP at [facility] in [place] and Jt Fowler MD in [place]. Inpatient: unable to assess due Previous suicide attempts: unable to assess Past trauma history: unable to assess Past Medical History[1] Allergies[2] Family History: Psychiatric Diagnoses: unable to assess Suicides: unable to assess Social History: Education: Unknown Current living situation: Most recently was living in [facility] Family: Relatives listed upon chart review include sister, brother, and nephew. Brother is legal guardian Romantic relationship: unable to assess Employment: unable to assess Legal history: unable to assess Support system: Caregiver, brother (POA) and [id number] Substance use History: Tobacco Use: unable to [...] 108 (H) 74 - 99 mg/dL Comment Facialist ID Viridiana Pichardo Device ID [id number] Specimen Type POC Capillary POCT glucose meter Collection Time: 10/02/24 4:43 PM Result Value Ref Range POCT Glucose 172 (H) 74 - 99 mg/dL Comment Facialist ID Viridiana Pichardo Device ID [id number] Specimen Type POC Capillary POCT glucose meter Collection Time: 10/02/24 9:06 PM Result Value Ref Range POCT Glucose 143 (H) 74 - 99 mg/dL Comment Facialist ID Ashia Daniels Device ID [id number] Specimen Type POC Capillary Renal Function Panel, [...] 110 (H) 74 - 99 mg/dL Comment Facialist ID Precious Thomason Device ID [id number] Specimen Type POC Capillary ANTIPSYCHOTIC MONITORING TOOL [...] IDD/dementia, anxiety, and depression who [facility] from facility ([facility]) with concerns of non-adherence to medication regimen [...] to first call physician/provider: Dr. Kelley via [employer] chat Berto Mendez, MS3 I saw and [...] 11/23/2011 Infection of AV graft for dialysis ([facility]) 02/18/2022 Added automatically from request for surgery [id number] Insomnia, unspecified 12/22/2021 Methicillin resistant Staphylococcus aureus [...] as documented. * Progress Notes - Daphne Landry, EVERT, DNP - 10/03/2024 8:26 AM EDT [facility] [...] ESRD (end stage renal disease) on dialysis ([facility]) Essential (primary) hypertension Type 2 diabetes mellitus with chronic kidney disease on chronic dialysis ([facility]) Wears hearing aid in both ears At high risk for falls Insomnia, unspecified Chronic combined systolic (congestive) and diastolic (congestive) heart failure ([facility]) Dementia ([facility]) Chronic hepatitis C without hepatic coma ([facility]) Arterial insufficiency ([facility]) Gastroesophageal reflux disease without esophagitis Mixed hyperlipidemia Anxiety and depression Mild intellectual disabilities Sensorineural hearing loss, bilateral History of transmetatarsal amputation of foot ([facility]) Electrolyte and fluid disorder Anemia in chronic kidney disease (CODE) Chronic kidney disease-mineral and bone disorder (CKD-MBD) 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 ESRD (end stage renal disease) ([facility]) Medications: Current Medications: Current Scheduled Medications[1] Current [...] bilateral transmetarsal amputation, and debility presented to [facility] on 09/30 after refusing care at his m[facility]. Nephrology consulted for dialysis. Assessment: #ESRD on iHD - MWF at [facility] [address] Lucas - AccesS: ISAURO [...] Ongoing, Progressing Intervention: Promote Activity and Functional Door Flowsheets (Taken 10/03/202418) Activity Assistance Provided: assistance, [...] Review Outcome: Ongoing, Progressing Flowsheets (Taken 10/02/2024 8187) Progress: improving Plan of Care Reviewed With: [...] Note Mundo Fernandez 64 y.o. male CSN: [id number] Admission: 09/30/2024 3:29 PM Primary Problem: Declining functional status Pharmacy Buyer reviewed chart and spoke with patient caregiverMariel [phone] to complete this Initial Case Management Assessment. PCP: Leonard Botello MD, not confirmed Emergency Contact: Extended Emergency Contact Information Primary Emergency Contact: Chris Fernandez Mobile Relation: Legal Guardian Preferred language: Turkmen Tilt Tray Driver needed? No Secondary Emergency Contact: Mariel Chavez Address: [address] [place] [address] Mobile Relation: Director Of Retail Merchandising Tilt Tray Driver needed? No Insurance: Primary Visit Coverage Payer Plan Sponsor Code Group Number Group Name MEDICARE MEDICARE A & B Primary Visit Coverage Subscriber Subscriber ID Subscriber Name Subscriber SSN Subscriber Address [id number] MUNDO FERNANDEZ [id number] [place] [phone] Secondary Visit Coverage Payer Plan Sponsor Code Group Number Group Name MEDICAID-[facility] MEDICAID [facility] Secondary Visit Coverage Subscriber Subscriber ID Subscriber Name Subscriber SSN Subscriber Address [id number] MUNDO FERNANDEZ [id number] [place] [phone] Patient information: Primary Caregiver: Private caregiver Accompanied by/Relationship: no family friends at the bedside Support System: Immediate family Daily Living Activities: Functional Status: Minimum assistance Living Arrangements: Friends Type of Residence: Private residence [address] [place] [phone] Smoker in the Home?: No Current DME: [...] Wheels Transportation . Living Will/Advance Directive/Power of Group Counselor /Guardian: Have you reviewed your Advance Directive and is it valid for this stay?: Yes Advance Directive: Patient does not have advance directive Information Provided on Healthcare Directives: No Pre-existing DNR/DNI Order: No Patient Requests Assistance: No Additional Comments: Patient lacks capacity, CM unable to reach legal guardian and brother, Chris Fernandez via telephone. Message left for brother to return CM call to discuss discharge planning. CM called Mariel Chavez who is listed as second person on emergency contacts. Per Mariel report, patient was at [facility] one year ago, discharged to [facility]. [facility] discharged patient approximately 1 week ago to live with Mariel who is a paid caregiver through an agency, however, Mariel was not being compensated for the care due to SCL waiver while patient was at custodial. CM will continue to reach patients legal guardian to discuss dc planning. Birdie Damico RN * Progress Notes - Leda Gaitan MD - 10/02/2024 12:20 PM EDT Images from the original note were not included. [facility] Inpatient Progress Note Patient: Mundo [...] COMMUNICATION: Per this written report. Drafted by Mudno Martins MD on 08/25/2023 12:16 PM Final report signed by Mundo Martins MD on 08/25/2023 12:18 PM REVIEW OF PROCEDURES Assessment and Plan: Aakash Fernandez is [place] 64 y.o. male with past history of ESRD on HD MWF, T2DM, HTN, chronic HFrEF, PAD, HLD, IDD/dementia, depression/anxiety, insomnia, chronic HCV, DM foot ulcer c/b OM s/p bilateral transmetarsal amputation, and debility sent from his [facility] to ED for medical evaluationafter refusing care. Declining functional status - Transferred to [facility]cc a week ago and since arrival refusing HD, to eat, participate, or take medications - sent to ED for medical evaluation and need for higher level of assist/unable to care for self/non-compliance - afebrile, VSS, no acute complaints PLAN - PT/OT consult re: placement - legal guardian is his brother, Chris Fernandez, #[phone] At high risk for falls - wheelchair dependent, fall precautions ESRD (end stage renal disease) on dialysis ([facility]) - Missed HD (MWF) , last session [...] with chronic kidney disease on chronic dialysis ([facility]) - last A1c 4.8% over a year ago - presenting glucose 185, repeat A1c pending PLAN - ACHS regular SSI - hold home glargine 5U at bedtime while trend glucose/PO intake Dementia ([facility]) - Delirium precautions - Pharm med rec [...] BP <120/80 on dialysis days) Arterial insufficiency ([facility]) - continue aspirin 81 mg daily, clopidogrel [...] systolic (congestive) and diastolic (congestive) heart failure ([facility]) - ECHO 06/27/2022: EF 45%, abnormal diastolic dysfunction - strict I/O, 2 L fluid restriction, cardiac/renal/CCHO2 diet Chronic hepatitis C without hepatic coma ([facility]) - HCV RNA PCR not detected 07/13/2023 History of transmetatarsal amputation of foot ([facility]) - chronic OM 2/2 DM foot ulcers s/p bilateral transmetarsal amputation Inpatient Checklist: Inpatient checklist: - Bowel regimen: ducolax - Code status: Full Code - Diet: PO - DVT prophylaxis: heparin - Disposition: placement CODE STATUS: Full Code EMERGENCY CONTACT: Extended Emergency Contact Information Primary Emergency Contact: Chris Fernandez Mobile Relation: Legal Guardian Preferred language: Turkmen Tilt Tray Driver needed? No Secondary Emergency Contact: Mariel Chavez Address: [address] [place] [address] of [employer] Mobile Relation: Director Of Retail Merchandising Tilt Tray Driver needed? No Leda Kelley MD [facility] Certified Presiding Judge Pager [phone] [1] Current Facility-Administered Medications: acetaminophen (Tylenol) tablet 650 mg, 650 mg, Oral, q6h PRN, Lala Valdes B, MAGISTRATE ASSISTANT aspirin chewable tablet 81 mg, 81 mg, Oral, Daily, Lala Valdes, MAGISTRATE ASSISTANT, 81 mg at 10/02/24 1137 atorvastatin (Lipitor) tablet 40 mg, 40 mg, Oral, Nightly, Lala Valdes B, MAGISTRATE ASSISTANT, 40 mg at 10/01/242051 bisacodyl (Dulcolax) EC tablet 10 mg, 10 mg, Oral, Daily PRN, Lala Valdes B, MAGISTRATE ASSISTANT cadexomer iodine (Iodosorb) 0.9 % gel, , Topical, Daily, Tana Wooten MD, Given at 10/02/24 1140 carvedilol (Coreg) tablet 12.5 mg, 12.5 mg, Oral, BID, Lala Valdes B, MAGISTRATE ASSISTANT, 12.5 mg at 10/02/24 1137 clopidogrel (Plavix) tablet 75 mg, 75 mg, Oral, Daily, Lala Valdes, MAGISTRATE ASSISTANT, 75 mg at 10/02/24 1137 glucose (Glutose) 40 % oral gel 15-30 grams of glucose, 15-30 grams of glucose, Sublingual, q15 minPRN OR dextrose 10 % (D10W) bolus 125 mL, 125 mL, Intravenous, q15 min PRN OR dextrose 10 %(D10W) bolus 250 mL, 250 mL, Intravenous, q15 min PRN OR glucagon (human recombinant) injection1 mg, 1 mg, Intramuscular, q15 min PRN, Lala Valdes, MAGISTRATE ASSISTANT divalproex sprinkle (Depakote Sprinkle) DR capsule 250 mg, 250 mg, Oral, BID, Lala Valdes B, MAGISTRATE ASSISTANT,250 mg at 10/02/24 1137 heparin (porcine) injection 5,000 Units, 5,000 Units, Subcutaneous, q8h RAFAT, Lala Valdes, MAGISTRATE ASSISTANT, 5,000 Units at 10/02/24 0528 insulin lispro (Admelog) 100 units/mL injection - Correction - Standard Dose, 0- 5 Units, Subcutaneous, TID with meals, Lala Valdes, MAGISTRATE ASSISTANT insulin lispro (Admelog) injection - Correction - Nighttime Dose, 0-3 Units, Subcutaneous, Twice atnight, Lucio, Gitana B, MAGISTRATE ASSISTANT melatonin tablet 3 mg, 3 mg, Oral, Nightly, Lucio, Gitana B, MAGISTRATE ASSISTANT, 3 mg at 10/01/242050 mupirocin (Bactroban) 2 % ointment 1 Application, 1 Application, Each Nostril, BID, Tana Wooten MD, 1 Application at 10/02/241136 NIFEdipine XL (Procardia XL) 24 hr tablet 30 mg, 30 mg, Oral, Daily, Lucio, Gitana B, MAGISTRATE ASSISTANT, 30 mg at10/02/241136 polyethylene glycol (Miralax) packet 17 g, 17 g, Oral, Daily, Lucio, Gitana B, MAGISTRATE ASSISTANT, 17 g at 10/02/241136 sertraline (Zoloft) tablet 75 mg, 75 mg, Oral, Daily, Lucio, Gitana B, MAGISTRATE ASSISTANT, 75 mg at 10/02/241136 Insert peripheral IV, , , Once AND Saline lock IV, , , Once AND sodium chloride 0.9 % flush10 mL, 10 mL, Intravenous, q12h, 10 mL at 10/02/241136 AND sodium chloride 0.9 % flush 10 mL, 10 mL, Intravenous, PRN, Lucio, Gitana B, MAGISTRATE ASSISTANT traZODone (Desyrel) tablet 100 mg, 100 mg, Oral, Nightly, Lucio, Gitana B, MAGISTRATE ASSISTANT, 100 mg at 10/01/242051 Facility-Administered Medications Ordered in Other Encounters: lidocaine-EPINEPHrine (PF) (Xylocaine W/EPI) 1 %-1:774715 injection - Pyxis Override Pull, , , , lidocaine-EPINEPHrine (PF) (Xylocaine W/EPI) 1 %-1:007891 injection - Pyxis Override Pull, , , [...] 28 days, Once Release to patient in [facility] 1: Immediate Hepatitis panel, acute Every 28 days, Once Release to patient in [facility]: Immediate Zechariah Tovar MD Nephrology [1] aspirin, [...] Ongoing, Progressing Intervention: Promote Activity and Functional Door Flowsheets (Taken 10/02/202436) Activity Assistance Provided: assistance, [...] 142) Sleep/Rest Enhancement: natural light exposure provided * [...] 10/01/2024 10:23 AM Wound Image Wound Assessment [place];Pale;Granulation Margins Well-defined edges;Open Edges Sydni-Wound Assessment Dry;Calloused;Other [...] Ongoing, Progressing Intervention: Promote Activity and Functional Door Flowsheets (Taken 10/01/2024 1333) Activity Assistance Provided: [...] Fernandez Today's Date: 10/01/2024 PT Discharge Recommendations: retirement facility (LTC) Equipment Recommended: Defer to facility [...] 04/30/2023 History of transmetatarsal amputation of foot ([facility]) 04/30/2023 Declining functional status 04/15/2023 Anxiety and depression 04/15/2022 Gastroesophageal reflux disease without esophagitis 04/15/2022 Dementia ([facility]) 02/18/2022 Chronic combined systolic (congestive) and diastolic (congestive) heart failure ([facility]) 02/18/2022 Insomnia, unspecified 12/22/2021 At high risk for falls 10/12/2021 ESRD (end stage renal disease) on dialysis ([facility]) 09/16/2021 Arterial insufficiency ([facility]) 05/18/2021 Mild intellectual disabilities 08/30/2019 Sensorineural hearing loss, bilateral 01/11/2018 Wears hearing aid in both ears 12/08/2017 Chronic hepatitis C without hepatic coma ([facility]) 06/03/2014 Type 2 diabetes mellitus with chronic kidney disease on chronic dialysis ([facility]) 11/15/2013 Essential (primary) hypertension 11/23/2011 Mixed hyperlipidemia 11/23/2011 Procedures Past Medical History Patient has a past medical history of Alcohol use disorder in remission, Anemia in chronic kidney disease (CODE) (04/30/2023), Anxiety, Arterial insufficiency ([facility]) (05/18/2021), Benign prostatichyperplasia, Central line-associated bloodstream infection (06/29/2022), Chronic combined systolic (congestive) and diastolic (congestive) heart failure ([facility]) (02/18/2022), Chronic hepatitis C without hepatic coma ([facility]) (06/03/2014), Dementia ([facility]) (02/18/2022), Depression, Diabetic peripheral neuropathy ([facility]), ESRD (end stage renal disease) on dialysis ([facility]) (09/16/2021), Essential hypertension (11/23/2011), GERD (gastroesophageal reflux disease), Hemorrhoids, Hyperlipidemia, Hypoparathyroidism (11/23/2011), Infection of AV graft for dialysis ([facility]) (02/18/2022), Insomnia, unspecified (12/22/2021), Methicillin resistant Staphylococcus [...] Medical Precautions: Fall precautions Subjective Pt severely [place] with no hearing aides donned or present in room. Pt stated I can't walk when asked how he was mobilizing prior to admission. Participants in Care Family/Caregiver Present: No Tilt Tray Driver: Not Applicable Presentation Oxygen Therapy: None (Room [...] end of session. Home Living/Set-up Home Type: long term Home Adaptive Equipment: Wheelchair-manual Home Living Comments: Pt unable to provide home living information and PLOF d/t impaired cognition and being hard of hearing (no hearing aides present in room). Per chart review, pt lives at a [facility] and utilizes to mobilize. When asked how he transfers to/from pt stated I can't walk , it is presumed that he stands to pivot in order to transfer. Prior Level of Function Receives Help From: Caregiver Level of Mobility: Wheelchair/Scooter Mobility Door: Assist with wheelchair propulsion Patient/Family Goals Objective [...] simple, repeated questioning as pt is severely [place] with no hearing aides present in room. [...] Mobility Bed Mobility Exam: Scooting/Bridging Level of Door: Stand-by assist Physical/Nonphysical Assist: Supervision Bed Mobility Exam: Supine to Sit Level of Door: Stand-by assist Physical/Nonphysical Assist: Supervision, HOB elevated Transfers Transfer Exam: Sit to stand Level of Door: Contact guard Physical/Nonphysical Assist: Supervision, Nonverbal cues (demo/gestures) Assistive Device: Walker, rolling Transfer Exam: Stand to Sit Level of Door: Contact guard Physical/Nonphysical Assist: Supervision, Nonverbal cues [...] understanding. Standardized Assessments Standardized Assessments Standardized Assessments: [facility] 6-Clicks Mobility Assessment [facility] 6-Clicks Mobility Assessment Difficulty patient has [...] 3-5 steps with a railing?: A lot [facility] 6-Clicks Mobility Assessment Total : 20 No data recorded Assessment Pt demonstrated the ability to perform all mobility with SBA-CGA for safety and use of RW when amb short distance in order to transfer to chair. Pt severely [place] with no hearing aides present in room,as [...] Making: Low complexity PT Recommendations Discharge Destination: retirement facility (LTC) Discharge Equipment: Defer to facility Plan Patient no longer demonstrates need for inpatient physical therapy services. Patient to be discharged from physical therapy. Written by Jt Wesley on 10/01/24 at 1:13 PM. * Progress Notes - Whitney Hinojosa - 10/01/2024 9:59 AM EDT Occupational Therapy Evaluation/Discharge Patient Name: Aakash Fernandez Today's Date: 10/01/2024 OT Discharge Recommendations: retirement facility Equipment Recommended: Defer to facility History Mundo Fernandez is 64 y.o. male admitted 09/30/2024 for work-up of Declining functional status. Problem List Active Hospital Problems Diagnosis Date Noted ESRD (end stage renal disease) ([facility]) 09/30/2024 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 06/07/2024 Chronic kidney disease-mineral and bone disorder (CKD-MBD) 08/27/2023 Electrolyte and fluid disorder 06/07/2023 Anemia in chronic kidney disease (CODE) 04/30/2023 History of transmetatarsal amputation of foot ([facility]) 04/30/2023 Declining functional status 04/15/2023 Anxiety and depression 04/15/2022 Gastroesophageal reflux disease without esophagitis 04/15/2022 Dementia ([facility]) 02/18/2022 Chronic combined systolic (congestive) and diastolic (congestive) heart failure ([facility]) 02/18/2022 Insomnia, unspecified 12/22/2021 At high risk for falls 10/12/2021 ESRD (end stage renal disease) on dialysis ([facility]) 09/16/2021 Arterial insufficiency ([facility]) 05/18/2021 Mild intellectual disabilities 08/30/2019 Sensorineural hearing loss, bilateral 01/11/2018 Wears hearing aid in both ears 12/08/2017 Chronic hepatitis C without hepatic coma ([facility]) 06/03/2014 Type 2 diabetes mellitus with chronic kidney disease on chronic dialysis ([facility]) 11/15/2013 Essential (primary) hypertension 11/23/2011 Mixed hyperlipidemia 11/23/2011 Past Medical History Patient has a past medical history of Alcohol use disorder in remission, Anemia in chronic kidney disease (CODE) (04/30/2023), Anxiety, Arterial insufficiency ([facility]) (05/18/2021), Benign prostatichyperplasia, Central line-associated bloodstream infection (06/29/2022), Chronic combined systolic (congestive) and diastolic (congestive) heart failure ([facility]) (02/18/2022), Chronic hepatitis C without hepatic coma ([facility]) (06/03/2014), Dementia ([facility]) (02/18/2022), Depression, Diabetic peripheral neuropathy ([facility]), ESRD (end stage renal disease) on dialysis ([facility]) (09/16/2021), Essential hypertension (11/23/2011), GERD (gastroesophageal reflux disease), Hemorrhoids, Hyperlipidemia, Hypoparathyroidism (11/23/2011), Infection of AV graft for dialysis ([facility]) (02/18/2022), Insomnia, unspecified (12/22/2021), Methicillin resistant Staphylococcus [...] hear Participants in Care Family/Caregiver Present: No Tilt Tray Driver: Not Applicable Presentation Oxygen Therapy: None (Room [...] Lives With: (pt was living in a [facility], previously in a SNF until about a week ago.) Home Type: long term Home Adaptive Equipment: Wheelchair-manual Home Layout: One level Bathroom: Tub/Shower: Tub/Shower combo Home Living Comments: Pt unable to provide home living information and PLOF d/t impaired cognition and being hard of hearing (no hearing aides present in room). Per chart review, pt lives at a [facility] and utilizes to mobilize. When asked how he transfers to/from WC pt stated I can't walk , it is presumed that he stands to pivot in order to transfer. Prior Level of Function Receives Help From: Caregiver Level of Mobility: Wheelchair/Scooter Mobility Door: Assist with wheelchair propulsion History of Falls: [...] simple, repeated questioning as pt is severely [place] with no hearing aides present in room. [...] Mobility Bed Mobility Exam: Scooting/Bridging Level of Door: Stand-by assist Physical/Nonphysical Assist: Supervision Bed Mobility Exam: Supine to Sit Level of Door: Stand-by assist Physical/Nonphysical Assist: Supervision, HOB elevated Assistive Device: Bed rails Transfers Transfer Exam: Sit to stand Level of Door: Contact guard Physical/Nonphysical Assist: Supervision, Nonverbal cues (demo/gestures) Assistive Device: Walker, rolling Transfer Exam: Stand to Sit Level of Door: Contact guard Physical/Nonphysical Assist: Supervision, Nonverbal cues (demo/gestures) Assistive Device: Walker, rolling Transfer Exam: Bed to Chair/Chair to Bed Level of Door: Contact guard Physical/Nonphysical Assist: Nonverbal cues (demo/gestures), [...] Level of Assistance: Setup, SBA Standardized Assessments [facility] 6-Click Daily Activities Help from Other: Don/Doff Regular Lower Body Clothings: Little Help From Other: Bathing: Little Help From Other: Toileting: Little Help From Other: Don/Doff Upper Body Clothings: None Help From Other: Grooming: None Help From Other: Eating Meals: None [facility] 6 Click - Daily Activities Score: 21 [...] Eval complexity: Low OT Recommendations Discharge Destination: retirement facility Discharge Equipment: Defer to facility Plan [...] bilateral transmetarsal amputation, and debility presented to [facility] on 09/30 after refusing care at his [facility]. He brought to the ED for medical [...] bilateral transmetarsal amputation, and debility presented to [facility] on 09/30 after refusing care at his [facility]. Nephrology consulted for dialysis. Assessment: #ESRD on [...] kidney disease (CODE) 04/30/2023 Anxiety Arterial insufficiency ([facility]) 05/18/2021 Benign prostatic hyperplasia Central line-associated bloodstream infection 06/29/2022 Chronic combined systolic (congestive) and diastolic (congestive) heart failure ([facility]) 02/18/2022 Chronic hepatitis C without hepatic coma ([facility]) 06/03/2014 Dementia ([facility]) 02/18/2022 Depression Diabetic peripheral neuropathy ([facility]) ESRD (end stage renal disease) on dialysis ([facility]) 09/16/2021 Essential hypertension 11/23/2011 GERD (gastroesophageal reflux disease) Hemorrhoids Hyperlipidemia Hypoparathyroidism 11/23/2011 Infection of AV graft for dialysis ([facility]) 02/18/2022 Added automatically from request for surgery [id number] Insomnia, unspecified 12/22/2021 Methicillin resistant Staphylococcus aureus infection, unspecified site Mild intellectual disabilities 08/30/2019 MSSA bacteremia 03/04/2022 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 06/07/2024 Sensorineural hearing loss, bilateral 01/11/2018 Type 2 diabetes mellitus [2] Patient Active Problem List Diagnosis ESRD (end stage renal disease) on dialysis ([facility]) Essential (primary) hypertension Type 2 diabetes mellitus with chronic kidney disease on chronic dialysis ([facility]) Wears hearing aid in both ears At [...] mg, Oral, q6h PRN, Lucio, Gitana B, MAGISTRATE ASSISTANT aspirin chewable tablet 81 mg, 81 mg, Oral, Daily, Lucio, Gitana B, MAGISTRATE ASSISTANT atorvastatin (Lipitor) tablet 40 mg, 40 mg, Oral, Nightly, Lucio, Gitana B, MAGISTRATE ASSISTANT, 40 mg at 09/30/242155 bisacodyl (Dulcolax) EC tablet 10 mg, 10 mg, Oral, Daily PRN, Lucio, Gitana B, MAGISTRATE ASSISTANT carvedilol (Coreg) tablet 12.5 mg, 12.5 mg, Oral, BID, Lucio, Gitana B, MAGISTRATE ASSISTANT, 12.5 mg at 09/30/242155 clopidogrel (Plavix) tablet 75 mg, 75 mg, Oral, Daily, Lucio, Gitana B, MAGISTRATE ASSISTANT glucose (Glutose) 40 % oral gel 15-30 [...] mg, 250 mg, Oral, BID, Lala Valdes MAGISTRATE ASSISTANT,250 mg at 09/30/242155 heparin (porcine) injection 5,000 [...] mg, 100 mg, Oral, Nightly, Lala Valdes, MAGISTRATE ASSISTANT, 100 mg at 09/30/246 Facility-Administered Medications Ordered in Other Encounters: lidocaine-EPINEPHrine (PF) (Xylocaine W/EPI) 1 %-1:680916 injection - Pyxis Override Pull, , , , lidocaine-EPINEPHrine (PF) (Xylocaine W/EPI) 1 %-1:661269 injection - Pyxis Override Pull, , , [...] to inability to care for patient at mcc. No immediate indications for HD, will resume tomorrow per home schedule. * Progress Notes - Leda Gaitan MD - 10/01/2024 8:45 AM EDT Images from the original note were not included. [facility] Medicine Inpatient Progress Note Patient: Mundo [...] Per this written report. Drafted by Mundo Martisn MD on 08/25/2023 12:16 PM Final report signed by Mundo Martins MD on 08/25/2023 12:18 PM REVIEW OF PROCEDURES Assessment and Plan: Aakash Fernandez is [place] 64 y.o. male with past history of ESRD on HD MWF, T2DM, HTN, chronic HFrEF, PAD, HLD, IDD/dementia, depression/anxiety, insomnia, chronic HCV, DM foot ulcer c/b OM s/p bilateral transmetarsal amputation, and debility sent from his [facility] to ED for medical evaluationafter refusing care. Declining functional status - Transferred to [facility] a week ago and since arrival refusing HD, to eat, participate, or take medications - sent to ED for medical evaluation and need for higher level of assist/unable to care for self/non-compliance - afebrile, VSS, no acute complaints PLAN - PT/OT consult re: placement - legal guardian is his brother, Chris Fernandez, #[phone] At high risk for falls - wheelchair dependent, fall precautions ESRD (end stage renal disease) on dialysis ([facility]) - Missed HD (MWF) , last session [...] with chronic kidney disease on chronic dialysis ([facility]) - last A1c 4.8% over a year ago - presenting glucose 185, repeat A1c pending PLAN - ACHS regular SSI - hold home glargine 5U at bedtime while trend glucose/PO intake Dementia ([facility]) - Delirium precautions - Pharm med rec [...] BP <120/80 on dialysis days) Arterial insufficiency ([facility]) - continue aspirin 81 mg daily, clopidogrel [...] systolic (congestive) and diastolic (congestive) heart failure ([facility]) - ECHO 06/27/2022: EF 45%, abnormal diastolic [...] Fernandez Mobile Relation: Legal Guardian Preferred language: Turkmen Tilt Tray Driver needed? No Secondary Emergency Contact: Mariel Chavez Address: [address] [place] [address] Mobile Relation: Director Of Retail Merchandising Tilt Tray Driver needed? No Leda Kelley MD [facility] Certified Presiding Judge Pager [phone] [1] Current Facility-Administered Medications: acetaminophen (Tylenol) tablet 650 mg, 650 mg, Oral, q6h PRN, Lucio, Gitana B, MAGISTRATE ASSISTANT aspirin chewable tablet 81 mg, 81 mg, Oral, Daily, Lucio, Gitana B, MAGISTRATE ASSISTANT atorvastatin (Lipitor) tablet 40 mg, 40 mg, Oral, Nightly, Lucio, Gitana B, MAGISTRATE ASSISTANT, 40 mg at 09/30/242155 bisacodyl (Dulcolax) EC tablet 10 mg, 10 mg, Oral, Daily PRN, Lucio, Gitana B, MAGISTRATE ASSISTANT carvedilol (Coreg) tablet 12.5 mg, 12.5 mg, Oral, BID, Lucio, Gitana B, MAGISTRATE ASSISTANT, 12.5 mg at 09/30/242155 clopidogrel (Plavix) tablet 75 mg, 75 mg, Oral, Daily, Lucio, Gitana B, MAGISTRATE ASSISTANT glucose (Glutose) 40 % oral gel 15-30 [...] mg, 250 mg, Oral, BID, Lala Valdes, MAGISTRATE ASSISTANT,250 mg at 09/30/242155 heparin (porcine) injection 5,000 [...] mL, 10 mL, Intravenous, PRN, Lala Valdes MAGISTRATE ASSISTANT [START ON 10/02/2024] sodium zirconium cyclosilicate (Lokelma) packet 10 g, 10 g, Oral, Daily beforebreakfast, Lala Valdes APRN traZODone (Desyrel) tablet 100 mg, 100 mg, Oral, Nightly, Lala Valdes APRN, 100 mg at 09/30/24 5016 Facility-Administered Medications Ordered in Other Encounters: lidocaine-EPINEPHrine (PF) (Xylocaine W/EPI) 1 %-1:829109 injection - Pyxis Override Pull, , , , lidocaine-EPINEPHrine (PF) (Xylocaine W/EPI) 1 %-1:602937 injection - Pyxis Override Pull, , , , [2] No Known Allergies * Assessment & Plan Note - Lala Valdes APRN - 10/01/2024 6:37 AM EDT Associated Problem(s): Declining functional status - Transferred to [facility] a week ago and since arrival refusing HD, to eat, participate, or take medications - sent to ED for medical evaluation and need for higher level of assist/unable to care for self/non-compliance - afebrile, VSS, no acute complaints PLAN - PT/OT consult re: placement - legal guardian is his brother, Chris Fernandez, #[phone] * Assessment & Plan Note - Lala Valdes APRN - 10/01/2024 6:37 AM EDT Associated Problem(s): At high risk for falls - wheelchair dependent, fall precautions * Assessment & Plan Note - Lala Valdes APRN - 10/01/2024 6:37 AM EDT Associated Problem(s): ESRD (end stage renal disease) on dialysis ([facility]) - Missed HD (MWF) earlier today, last [...] with chronic kidney disease on chronic dialysis - last A1c 4.8% over a year [...] 6:37 AM EDT Associated Problem(s): Arterial insufficiency - continue aspirin 81 mg daily, clopidogrel [...] PPI * Assessment & Plan Note - aLla Valdes APRN - 10/01/2024 6:37 AM EDT [...] systolic (congestive) and diastolic (congestive) heart failure - ECHO 06/27/2022: EF 45%, abnormal diastolic dysfunction - strict I/O, 2 L fluid restriction, cardiac/renal/CCHO2 diet * Assessment & Plan Note - Lala Valdes APRN - 10/01/2024 6:37 AM EDT Associated Problem(s): Chronic hepatitis C without hepatic coma - HCV RNA PCR not detected 07/13/2023 [...] Ongoing, Progressing Intervention: Promote Activity and Functional Door Flowsheets (Taken 10/01/202445) Activity Assistance Provided: assistance, 1 person Self-Care Promotion: independence encouraged * H&P - Lala Valdes APRN - 09/30/2024 7:35 PM EDTAssociated Order(s): Consult to [facility] Images from the original note were not included. Consult to [facility] Consult performed by: Lala Valdes APRN Consult ordered by: Lesvia Adrian MD Reason for consult: Functional decline Subjective Chief complaint Refusing care History Of Present Illness Aakash Fernandez is [place] 64 y.o. male with past history of ESRD on HD MWF, T2DM, HTN, chronic HFrEF, PAD, HLD, IDD/dementia, depression/anxiety, insomnia, chronic HCV, DM foot ulcer c/b OM s/p bilateral transmetarsal amputation, and debility sent from his [facility] to ED for medical evaluationafter refusing care. Patient is extremely [place] and not wearing hearing aids limiting exam, therefore history obtained from chart review and Mariel (#[phone]) at his [facility]. Unable to reach his legal guardian and brother, Chris Fernandez, at #[phone]. She reports that patient transferred a week ago to mcc after residing in a custodial for the past year with an increased level of assist. Since arriving patient has been refusing dialysis, to eat, participate, or take his medications. Earlier todayhe missed HD, last session 3 days ago on 09/27/2024. The mcc believes he needs a higher level of [...] of Systems Unable to perform ROS: Other ([place] IDD/Dementia) Constitutional: Positive for activity change and [...] 92%. Results Review {Vanishing Link Review Results :[id number] I have reviewed the latest lab and imaging results. Assessment & Plan Declining functional status - Transferred to [facility] a week ago and since arrival refusing HD, to eat, participate, or take medications - sent to ED for medical evaluation and need for higher level of assist/unable to care for self/non-compliance - afebrile, VSS, no acute complaints PLAN - PT/OT consult re: placement - legal guardian is his brother, Chris Fernandez, #[phone] At high risk for falls - wheelchair dependent, fall precautions ESRD (end stage renal disease) on dialysis ([facility]) - Missed HD (MWF) earlier today, last [...] with chronic kidney disease on chronic dialysis ([facility]) - last A1c 4.8% over a year ago - presenting glucose 185, repeat A1c pending PLAN - ACHS regular SSI - hold home glargine 5U at bedtime while trend glucose/PO intake Dementia ([facility]) - Delirium precautions - Pharm med rec [...] BP <120/80 on dialysis days) Arterial insufficiency ([facility]) - continue aspirin 81 mg daily, clopidogrel [...] systolic (congestive) and diastolic (congestive) heart failure ([facility]) - ECHO 06/27/2022: EF 45%, abnormal diastolic dysfunction - strict I/O, 2 L fluid restriction, cardiac/renal/CCHO2 diet Chronic hepatitis C without hepatic coma ([facility]) - HCV RNA PCR not detected 07/13/2023 History of transmetatarsal amputation of foot ([facility]) - chronic OM 2/2 DM foot ulcers [...] day. 30 capsule 3 Epoetin Rj-epbx (Retacrit) 18883 UNIT/ML injection Inject 13,400 Units/kg under the [...] presents to the ED today from his [facility] for refusing to participate in care. On my evaluation, patient has no complaints and is just requesting food and a blanket. He is very hard of hearing so history is difficult to obtain. Further history is obtained from patient's caregiver, Mariel at his [facility] (# [phone]). Shestates that the patient has been in a custodial for the last year with a high level of assist. One week ago he was transferred from the custodial to her [facility] under her groups care. She says since [...] floor bed request Once Acknowledged LESVIA ADRIAN 09/30/241908 Consult to [facility] Once Specialty: Internal Medicine Provider: (Not yet assigned) Acknowledged LESVIA ADRIAN 09/30/24 175 Off-Cycle Tray Request for Patient Once Comments: [...] 09/30/24 193 ESRD (end stage renal disease) ([facility]) Noncompliance by refusing service Social Determinates of Health Risks (including Economic Stability, Education and level of understanding, Healthcare access and quality and concerning social factors): Poor health literacy and Poor social support Ultimately, this patient was Was admitted (Admission) The primary encounter diagnosis was ESRD (end stage renal disease) ([facility]). A diagnosis of Noncompliance by refusing service was also pertinent to this visit.. Patient believed to require admission for the listed diagnoses. The Internal medicine service was consulted for admission andwas agreeable to admit to Acute Floor (Med/Surg). Disposition Admit Requested Location: [facility] [[id number]] - [1] Past Medical History: Diagnosis Date Bacteremia associated with intravascular line 06/28/2022 Central line-associated bloodstream infection 06/29/2022 Chronic combined systolic (congestive) and diastolic (congestive) heart failure ([facility]) 02/18/2022 Chronic hepatitis C without hepatic coma ([facility] 06/03/2014 Conversions - Other Depression Conversions - Other Diabetic Peripheral Neuropathy Conversions - Other Hearing Loss Conversions - Other Hemorrhoids Conversions - Other Mitral Valve Disorder Conversions - Other Obesity Conversions - Other Skin: A Rash Dementia ([facility]) 02/18/2022 ESRD (end stage renal disease) on dialysis ([facility]) 09/16/2021 Essential hypertension 11/23/2011 Methicillin resistant Staphylococcus [...] Cataract Phacoemulsification With Intraocular Lens Implantation from [employer] [facility] LAPAROTOM[facility] stab incision abdomen EYE SURGERY N/A Eye Surgery from [employer] FOOT SURGERY N/A Surgery Foot Amputation Metatarsal And Toe from [employer] OTHER SURGICAL HISTORY Right Tympanic Membrane Repair - Right Ear from [employer] OTHER SURGICAL HISTORY Right Surgery Right Foot Amputation MTP from [employer] [3] Family History Problem Relation Name Age [...] PM EDT Pt arrives via [facility] Per EMS home said pt would not take his meds today so they called an ambulance, pt has no complaints and the [facility] said he was not acting out of his normal. Pt is hard of hearing and does not answer questions in triage. documented in this encounter Plan of Treatment Not on file documented as of this encounter Procedures Procedure Name Priority Date/Time Associated Diagnosis Comments HEMODIALYSIS INPATIENT Routine 10/21/2024 11:17 AM EDT ESRD (end stage renal disease) on dialysis ([facility]) POCT GLUCOSE METER UNSOLICITED RESULTS Routine 10/21/2024 [...] ESRD (end stage renal disease) on dialysis ([facility]) POCT GLUCOSE METER UNSOLICITED RESULTS Routine 10/17/2024 [...] ESRD (end stage renal disease) on dialysis ([facility]) HEMODIALYSIS INPATIENT Routine 10/16/2024 8:41 AM EDT ESRD (end stage renal disease) on dialysis ([facility]) POCT GLUCOSE METER UNSOLICITED RESULTS Routine 10/16/2024 [...] ESRD (end stage renal disease) on dialysis ([facility]) POCT GLUCOSE METER UNSOLICITED RESULTS Routine 10/11/2024 [...] ESRD (end stage renal disease) on dialysis ([facility]) POCT GLUCOSE METER UNSOLICITED RESULTS Routine 10/09/2024 [...] ESRD (end stage renal disease) on dialysis ([facility]) POCT GLUCOSE METER UNSOLICITED RESULTS Routine 10/07/2024 [...] ESRD (end stage renal disease) on dialysis ([facility]) POCT GLUCOSE METER UNSOLICITED RESULTS Routine 10/04/2024 [...] ESRD (end stage renal disease) on dialysis ([facility]) VITAMIN D 25 HYDROXY Routine 10/02/2024 5:36 [...] 15 ga Once (10/21/2024 11:17 AM EDT) Jerrell Borja MD - 10/21/2024 11:17 AM EDT Jerrell [...] - 99 mg/dL 10/21/2024 9:17 AM EDT [facility] Comment:Accuracy of a glucos e result [...] for testing. Comment 10/21/2024 9:17 AM EDT [facility] Facialist ID Jane Dill 10/21/2024 9:17 AM EDT [facility] Device ID [id number] 10/21/2024 9:17 AM EDT [facility] Specimen Type POC Capillary 10/21/2024 9:17 AM EDT [facility] Blood Capillary blood specimen / Unknown 10/21/2024 9:15 AM EDT 10/21/2024 9:17 AM EDT Jeannie Valle MD LAB POINT OF CARE TE ST DOCKED DEVICE UNSOLICITED RESULTS Final Result Performing Organization Address City/State/[facility] Co de Phone Number [facility] [address] [place] [address] * POCT glucose meter (10/21/2024 8:27 AM EDT) POCT Glucose 95 74 - 99 mg/dL 10/21/2024 8:29 AM EDT [facility] Comment:Accuracy of a glucos e result [...] Comment 10/21/2024 8:29 AM EDT [facility] Facialist ID Jane Dill 10/21/2024 8:29 AM EDT [facility] Device ID [id number] 10/21/2024 8:29 AM EDT [facility] Specimen Type POC Capillary 10/21/2024 8:29 AM EDT [facility] Blood Capillary blood specimen / Unknown 10/21/2024 8:27 AM EDT 10/21/2024 8:29 AM EDT us Jeannie Valle MD LAB POINT OF CARE TE ST DOCKED DEVICE UNSOLICITED RESULTS Final Result Performing Organization Address City/[facility]/ZIP Co de Phone Number [facility] [address] [place] [address] * (ABNORMAL) POCT glucose meter (10/20/2024 8:31 PM EDT) POCT Glucose 131(H) 74 - 99 mg/dL [...] Comment 10/20/2024 8:34 PM EDT [facility] Facialist ID Grazyna Bhakta 025 8:34 PM EDT [facility] Device ID [id number] 10/20/2024 8:34 PM EDT [facility] Specimen Type POC Capillary 10/20/2024 8:34 PM EDT [facility] Blood Capillary blood specimen / Unknown 10/20/2024 8:31 PM EDT 10/20/2024 8:34 PM EDT us Jeannie Valle MD LAB POINT OF CARE TE ST DOCKED DEVICE UNSOLICITED RESULTS Final Result Performing Organization Address City/[facility]/ZIP Co de Phone Number [facility] [address] [place] [address] * (ABNORMAL) POCT glucose meter (10/19/2024 6:13 PM EDT) Pathologist [facility] POCT Glucose 125(H) 74 - 99 mg/dL [...] Comment 10/19/2024 6:16 PM EDT [facility] Facialist ID Denton Mccoy 025 6:16 PM EDT [facility] Device ID [id number] 10/19/2024 6:16 PM EDT [facility] Specimen Type POC Capillary 10/19/2024 6:16 PM EDT [facility] Blood Capillary blood specimen / Unknown 10/19/2024 6:13 PM EDT 10/19/2024 6:16 PM EDT us Jeannie Valle MD LAB POINT OF CARE TE ST DOCKED DEVICE UNSOLICITED RESULTS Final Result Performing Organization Address City/State/[facility] Co de Phone Number [facility] [address] [place] [address] * (ABNORMAL) POCT glucose meter (10/19/2024 11:56 AM EDT) [facility] POCT Glucose 110(H) 74 - 99 mg/dL [...] 10/19/2024 11:58 AM EDT [facility] Facialist ID Denton Mccoy 025 11:58 AM EDT [facility] Device ID [id number] 10/19/2024 11:58 AM EDT [facility] Specimen Type POC Capillary 10/19/2024 11:58 AM EDT [facility] Blood Capillary blood specimen / Unknown 10/19/2024 11:56 AM EDT 10/19/2024 11:58 AM EDT Jeannie Valle MD LAB POINT OF CARE TE ST DOCKED DEVICE UNSOLICITED RESULTS Final Result [facility] [address] [place] [address] * (ABNORMAL) POCT glucose meter (10/18/2024 6:01 [...] Comment 10/18/2024 6:03 PM EDT [facility] Facialist ID David Noyola 10/18/2024 6:03 PM EDT [facility] Device ID [id number] 10/18/2024 6:03 PM EDT [facility] Specimen Type POC Capillary 10/18/2024 6:03 PM EDT [facility] Blood Capillary blood specimen / Unknown 10/18/2024 6:01 PM EDT 10/18/2024 6:03 PM EDT us Jeannie Valle MD LAB POINT OF CARE TE ST DOCKED DEVICE UNSOLICITED RESULTS Final Result [facility] [address] [place] [address] * POCT glucose meter (10/18/2024 1:09 PM [...] Comment 10/18/2024 1:11 PM EDT [facility] Facialist ID David Noyola 10/18/2024 1:11 PM EDT [facility] Device ID [id number] 10/18/2024 1:11 PM EDT [facility] Specimen Type POC Capillary 10/18/2024 1:11 PM EDT [facility] Blood Capillary blood specimen / Unknown 10/18/2024 1:09 PM EDT 10/18/2024 1:11 PM EDT Jeannie Valle MD LAB POINT OF CARE TE ST DOCKED DEVICE UNSOLICITED RESULTS Final Result Performing Organization Address City/State/[facility] Co de Phone Number [facility] [address] [place] [address] * (ABNORMAL) POCT glucose meter (10/17/2024 8:28 PM EDT) [facility] POCT Glucose 101(H) 74 - 99 mg/dL 10/17/2024 8:29 PM EDT [facility] Comment:Accuracy of a [...] for testing. Comment 10/17/2024 8:29 PM EDT [facility] Facialist ID Ping Wen 8:29 PM EDT [facility] Device ID [id number] 10/17/2024 8:29 PM EDT [facility] Specimen Type POC Capillary 10/17/2024 8:29 PM EDT [facility] Blood Capillary blood specimen / Unknown 10/17/2024 8:28 PM EDT 10/17/2024 8:29 PM EDT Jeannie Valle MD LAB POINT OF CARE TE ST DOCKED DEVICE UNSOLICITED RESULTS Final Result Performing Organization Address City/[facility]/ZIP Co de Phone Number [facility] [address] [place] [address] * Hepatitis B Core Total Antibody IgG,IgM (10/17/2024 2:31 PM EDT) Hepatitis B Core Total Antibody IgG,IgM Negative Negative 10/17/2024 5:01 PM EDT [facility] Blood Venous blood specimen / Unknown Venipuncture / Unknown 10/17/2024 2:31 PM EDT 10/17/2024 2:35 PM EDT Jeannie Valle MD LAB BLOOD ORDERABLES Final Res ult Performing Organization Address [facility] Co de Phone Number [facility] [address] [place] [address] * XR Chest 1 View (10/17/2024 2:11 [...] - 99 mg/dL 10/17/2024 11:15 AM EDT [facility] Comment:Accuracy of a glucos e result [...] for testing. Comment 10/17/2024 11:15 AM EDT [facility] Facialist ID Toi Azevedo 11:15 AM EDT [facility] Device ID [id number] 10/17/2024 11:15 AM EDT [facility] Specimen Type POC Capillary 10/17/2024 11:15 AM EDT [facility] Blood Capillary blood specimen / Unknown 10/17/2024 8:29 AM EDT 10/17/2024 11:15 AM EDT Jeannie Valle MD LAB POINT OF CARE TE ST DOCKED DEVICE UNSOLICITED RESULTS Final Result [facility] [address] [place] [id number] * (ABNORMAL) POCT glucose meter (10/16/2024 8:34 PM EDT) Pathologist [facility] POCT Glucose 146(H) 74 - 99 mg/dL [...] Comment 10/16/2024 8:36 PM EDT [facility] Facialist ID Ping Wen 8:36 PM EDT [facility] Device ID [id number] 10/16/2024 8:36 PM EDT [facility] Specimen Type POC Capillary 10/16/2024 8:36 PM EDT [facility] Blood Capillary blood specimen / Unknown 10/16/2024 8:34 PM EDT 10/16/2024 8:36 PM EDT Jeannie Valle MD LAB POINT OF CARE TE ST DOCKED DEVICE UNSOLICITED RESULTS Final Result Performing Organization Address City/State/[facility] Co de Phone Number [facility] [address] [place], [place] [id number] * (ABNORMAL) POCT glucose meter (10/16/2024 4:46 PM EDT) [facility] POCT Glucose 168(H) 74 - 99 mg/dL [...] 10/16/2024 4:47 PM EDT [facility] Facialist ID Lio Gomez 10/16/2024 4:47 PM EDT [facility] Device ID [id number] 10/16/2024 4:47 PM EDT [facility] Specimen Type POC Capillary 10/16/2024 4:47 PM EDT [facility] Blood Capillary blood specimen / Unknown 10/16/2024 4:46 PM EDT 10/16/2024 4:47 PM EDT Jeannie Valle MD LAB POINT OF CARE TE ST DOCKED DEVICE UNSOLICITED RESULTS Final Result Performing Organization Address City/[facility]/ZIP Co de Phone Number [facility] [address] [place] [address] * POCT glucose meter (10/16/2024 12:55 PM [...] 10/16/2024 12:57 PM EDT [facility] Facialist ID Lio Gomez 10/16/2024 12:57 PM EDT [facility] Device ID [id number] 10/16/2024 12:57 PM EDT [facility] Specimen Type POC Capillary 10/16/2024 12:57 PM EDT [facility] Blood Capillary blood specimen / Unknown 10/16/2024 12:55 PM EDT 10/16/2024 12:57 PM EDT Jeannie Valle MD LAB POINT OF CARE TE ST DOCKED DEVICE UNSOLICITED RESULTS Final Result [facility] [address] [place] [address] * POCT glucose meter (10/16/2024 8:19 AM [...] Comment 10/16/2024 9:05 AM EDT [facility] Facialist ID Lio Gomez 10/16/2024 9:05 AM EDT [facility] Device ID [id number] 10/16/2024 9:05 AM EDT [facility] Specimen Type POC Capillary 10/16/2024 9:05 AM EDT [facility] Blood Capillary blood specimen / Unknown 10/16/2024 8:19 AM EDT 10/16/2024 9:05 AM EDT us Jeannie Valle MD LAB POINT OF CARE TE ST DOCKED DEVICE UNSOLICITED RESULTS Final Result [facility] [address] [place] [address] * POCT glucose meter (10/16/2024 8:09 AM EDT) [facility] POCT Glucose 85 74 - 99 mg/dL [...] Comment 10/16/2024 8:10 AM EDT [facility] Facialist ID Lio Gomez 10/16/2024 8:10 AM EDT [facility] Device ID [id number] 10/16/2024 8:10 AM EDT [facility] Specimen Type POC Capillary 10/16/2024 8:10 AM EDT [facility] Blood Capillary blood specimen / Unknown 10/16/2024 8:09 AM EDT 10/16/2024 8:10 AM EDT us Jeannie Valle MD LAB POINT OF CARE TE ST DOCKED DEVICE UNSOLICITED RESULTS Final Result [facility] [address] [place] [address] * XR Abdomen 1 View (10/15/2024 9:40 [...] on 10/15/2024 9:58 PM us Lala Valdes MAGISTRATE ASSISTANT IMG XR PROCEDURES Final Resul t * (ABNORMAL) POCT glucose meter (10/15/2024 8:04 PM EDT) POCT Glucose 160(H) 74 - 99 mg/dL 10/15/2024 8:06 PM EDT [facility] Comment:Accuracy of a glucos e result [...] Comment 10/15/2024 8:06 PM EDT [facility] Facialist ID Matty Jeffries 10/15/2024 8:06 PM EDT [facility] Device ID [id number] 10/15/2024 8:06 PM EDT [facility] Specimen Type POC Capillary 10/15/2024 8:06 PM EDT [facility] Blood Capillary blood specimen / Unknown 10/15/2024 8:04 PM EDT 10/15/2024 8:06 PM EDT us Jeannie Valle MD LAB POINT OF CARE TE ST DOCKED DEVICE UNSOLICITED RESULTS Final Result Performing Organization Address City/[facility]/ZIP Co de Phone Number [facility] [address] [place] [address] * (ABNORMAL) POCT glucose meter (10/15/2024 4:41 PM EDT) [facility] POCT Glucose 114(H) 74 - 99 mg/dL [...] Comment 10/15/2024 4:43 PM EDT [facility] Facialist ID Lio Gomez 10/15/2024 4:43 PM EDT [facility] Device ID [id number] 10/15/2024 4:43 PM EDT [facility] Specimen Type POC Capillary 10/15/2024 4:43 PM EDT [facility] Blood Capillary blood specimen / Unknown 10/15/2024 4:41 PM EDT 10/15/2024 4:43 PM EDT us Jeannie Valle MD LAB POINT OF CARE TE ST DOCKED DEVICE UNSOLICITED RESULTS Final Result [facility] [address] [place] [address] * (ABNORMAL) POCT glucose meter (10/15/2024 12:06 PM EDT) [facility] POCT Glucose 115(H) 74 - 99 mg/dL [...] for testing. Comment 10/15/2024 12:07 PM EDT [facility] Facialist ID Lio Gomez 10/15/2024 12:07 PM EDT [facility] Device ID [id number] 10/15/2024 12:07 PM EDT [facility] Specimen Type POC Capillary 10/15/2024 12:07 PM EDT [facility] Blood Capillary blood specimen / Unknown 10/15/2024 12:06 PM EDT 10/15/2024 12:07 PM EDT Jeannie Valle MD LAB POINT OF CARE TE ST DOCKED DEVICE UNSOLICITED RESULTS Final Result [facility] [address] [place] [address] * (ABNORMAL) POCT glucose meter (10/15/2024 8:04 AM EDT) [facility] POCT Glucose 101(H) 74 - 99 mg/dL [...] 10/15/2024 11:46 AM EDT [facility] Facialist ID Lio Gomez 10/15/2024 11:46 AM EDT [facility] Device ID [id number] 10/15/2024 11:46 AM EDT [facility] Specimen Type POC Capillary 10/15/2024 11:46 AM EDT [facility] Blood Capillary blood specimen / Unknown 10/15/2024 8:04 AM EDT 10/15/2024 11:46 AM EDT us Jeannie Valle MD LAB POINT OF CARE TE ST DOCKED DEVICE UNSOLICITED RESULTS Final Result Performing Organization Address City/[facility]/ZIP Co de Phone Number [facility] [address] [place] [address] * (ABNORMAL) POCT glucose meter (10/14/2024 8:01 PM EDT) POCT Glucose 186(H) 74 - 99 mg/dL 10/14/2024 8:02 PM EDT [facility] Comment:Accuracy of [...] Comment 10/14/2024 8:02 PM EDT [facility] Facialist ID Matty Jeffries 10/14/2024 8:02 PM EDT [facility] Device ID [id number] 10/14/2024 8:02 PM EDT [facility] Specimen Type POC Capillary 10/14/2024 8:02 PM EDT [facility] Blood Capillary blood specimen / Unknown 10/14/2024 8:01 PM EDT 10/14/2024 8:02 PM EDT us Lamont Brumfield MD LAB POINT OF CARE TE ST DOCKED DEVICE UNSOLICITED RESULTS Final Result [facility] [address] [place] [address] * POCT glucose meter (10/14/2024 4:34 PM EDT) POCT Glucose 98 74 - 99 mg/dL 10/14/2024 4:36 PM EDT [facility] Comment:Accuracy of [...] for testing. Comment 10/14/2024 4:36 PM EDT [facility] Facialist ID Moisés Lopez 10/14/2024 4:36 PM EDT [facility] Device ID [id number] 10/14/2024 4:36 PM EDT [facility] Specimen Type POC Capillary 10/14/2024 4:36 PM EDT [facility] Blood Capillary blood specimen / Unknown 10/14/2024 4:34 PM EDT 10/14/2024 4:36 PM EDT us Lamont Brumfield MD LAB POINT OF CARE TE ST DOCKED DEVICE UNSOLICITED RESULTS Final Result Performing Organization Address City/State/[facility] Co de Phone Number [facility] [address] [place] [address] * (ABNORMAL) POCT glucose meter (10/14/2024 12:00 PM EDT) [facility] POCT Glucose 139(H) 74 - 99 mg/dL [...] 10/14/2024 12:02 PM EDT [facility] Facialist ID Moisés Lopez 10/14/2024 12:02 PM EDT [facility] Device ID [id number] 10/14/2024 12:02 PM EDT [facility] Specimen Type POC Capillary 10/14/2024 12:02 PM EDT [facility] Blood Capillary blood specimen / Unknown 10/14/2024 12:00 PM EDT 10/14/2024 12:02 PM EDT Lamont Brumfield MD LAB POINT OF CARE TE ST DOCKED DEVICE UNSOLICITED RESULTS Final Result Performing Organization Address City/[facility] Co de Phone Number [facility] [address] [place] [address] * (ABNORMAL) POCT glucose meter (10/14/2024 8:48 AM EDT) POCT Glucose 111(H) 74 - [...] Comment 10/14/2024 8:50 AM EDT [facility] Facialist ID Moisés Lopez 10/14/2024 8:50 AM EDT [facility] Device ID [id number] 10/14/2024 8:50 AM EDT [facility] Specimen Type POC Capillary 10/14/2024 8:50 AM EDT [facility] Blood Capillary blood specimen / Unknown 10/14/2024 8:48 AM EDT 10/14/2024 8:50 AM EDT us Lamont Brumfield MD LAB POINT OF CARE TE ST DOCKED DEVICE UNSOLICITED RESULTS Final Result [facility] [address] [place] [address] * POCT glucose meter (10/14/2024 8:32 AM EDT) POCT Glucose 89 74 - 99 mg/dL [...] Comment 10/14/2024 8:34 AM EDT [facility] Facialist ID Moisés Lopez 10/14/2024 8:34 AM EDT [facility] Device ID [id number] 10/14/2024 8:34 AM EDT [facility] Specimen Type POC Capillary 10/14/2024 8:34 AM EDT [facility] Blood Capillary blood specimen / Unknown 10/14/2024 8:32 AM EDT 10/14/2024 8:34 AM EDT Lamont Brumfield MD LAB POINT OF CARE TE ST DOCKED DEVICE UNSOLICITED RESULTS Final Result Performing Organization Address [facility] de Phone Number [facility] [address] [place] [address] * POCT glucose meter (10/14/2024 3:19 AM EDT) [facility] POCT Glucose 94 74 - 99 mg/dL [...] Comment 10/14/2024 3:21 AM EDT [facility] Facialist ID Carri Chand 10/14/2024 3:21 AM EDT [facility] Device ID [id number] 10/14/2024 3:21 AM EDT [facility] Specimen Type POC Capillary 10/14/2024 3:21 AM EDT [facility] Blood Capillary blood specimen / Unknown 10/14/2024 3:19 AM EDT 10/14/2024 3:21 AM EDT us Lamont Brumfield MD LAB POINT OF CARE TE ST DOCKED DEVICE UNSOLICITED RESULTS Final Result Performing Organization Address City/[facility] Co de Phone Number [facility] [address] [place] [address] * (ABNORMAL) POCT glucose meter (10/13/2024 7:12 PM EDT) Pathologist [facility] POCT Glucose 116(H) 74 - 99 mg/dL [...] Comment 10/13/2024 7:13 PM EDT [facility] Facialist ID Grazyna Bhakta 025 7:13 PM EDT [facility] Device ID [id number] 10/13/2024 7:13 PM EDT [facility] Specimen Type POC Capillary 10/13/2024 7:13 PM EDT [facility] Blood Capillary blood specimen / Unknown 10/13/2024 7:12 PM EDT 10/13/2024 7:13 PM EDT Lamont Brumfield MD LAB POINT OF CARE TE ST DOCKED DEVICE UNSOLICITED RESULTS Final Result Performing Organization Address City/State/[facility] Co de Phone Number [facility] [address] [place] [address] * (ABNORMAL) POCT glucose meter (10/13/2024 5:49 PM EDT) Pathologist [facility] POCT Glucose 103(H) 74 - 99 mg/dL [...] 10/13/2024 5:51 PM EDT [facility] Facialist ID Moisés Lopez 10/13/2024 5:51 PM EDT [facility] Device ID [id number] 10/13/2024 5:51 PM EDT [facility] Specimen Type POC Capillary 10/13/2024 5:51 PM EDT [facility] Blood Capillary blood specimen / Unknown 10/13/2024 5:49 PM EDT 10/13/2024 5:51 PM EDT us Lamont Brumfield MD LAB POINT OF CARE TE ST DOCKED DEVICE UNSOLICITED RESULTS Final Result Performing Organization Address City/[facility] Co de Phone Number [facility] [address] [place] [address] * POCT glucose meter (10/13/2024 4:44 PM EDT) POCT Glucose 90 74 - 99 mg/dL [...] for testing. Comment 10/13/2024 4:45 PM EDT [facility] Facialist ID Moisés Lopez 10/13/2024 4:45 PM EDT [facility] Device ID [id number] 10/13/2024 4:45 PM EDT [facility] Specimen Type POC Capillary 10/13/2024 4:45 PM EDT [facility] Blood Capillary blood specimen / Unknown 10/13/2024 4:44 PM EDT 10/13/2024 4:45 PM EDT us Lamont Brumfield MD LAB POINT OF CARE TE ST DOCKED DEVICE UNSOLICITED RESULTS Final Result Performing Organization Address City/[facility]/ZIP Co de Phone Number [facility] [address] [place] [address] * (ABNORMAL) POCT glucose meter (10/13/2024 11:59 [...] Comment 10/13/2024 12:00 PM EDT [facility] Facialist ID Moisés Lopez 10/13/2024 12:00 PM EDT [facility] Device ID [id number] 10/13/2024 12:00 PM EDT [facility] Specimen Type POC Capillary 10/13/2024 12:00 PM EDT [facility] Blood Capillary blood specimen / Unknown 10/13/2024 11:59 AM EDT 10/13/2024 12:00 PM EDT Lamont Brumfield MD LAB POINT OF CARE TE ST DOCKED DEVICE UNSOLICITED RESULTS Final Result Performing Organization Address City/State/[facility] Co de Phone Number [facility] [address] [place] [address] * (ABNORMAL) POCT glucose meter (10/13/2024 10:43 AM EDT) POCT Glucose 151(H) 74 - 99 mg/dL 10/13/2024 10:45 AM EDT [facility] Comment:Accuracy of a [...] for testing. Comment 10/13/2024 10:45 AM EDT [facility] Facialist ID Moisés Lopez 10/13/2024 10:45 AM EDT [facility] Device ID [id number] 10/13/2024 10:45 AM EDT [facility] Specimen Type POC Capillary 10/13/2024 10:45 AM EDT [facility] Blood Capillary blood specimen / Unknown 10/13/2024 10:43 AM EDT 10/13/2024 10:45 AM EDT us Lamont Brumfield MD LAB POINT OF CARE TE ST DOCKED DEVICE UNSOLICITED RESULTS Final Result Performing Organization Address City/[facility] Co de Phone Number [facility] [address] [place] [address] * POCT glucose meter (10/13/2024 9:20 AM EDT) POCT Glucose 82 74 - 99 mg/dL 10/13/2024 9:21 AM EDT [facility] Comment:Accuracy of a [...] for testing. Comment 10/13/2024 9:21 AM EDT [facility] Facialist ID Moisés Lopez 10/13/2024 9:21 AM EDT [facility] Device ID [id number] 10/13/2024 9:21 AM EDT [facility] Specimen Type POC Capillary 10/13/2024 9:21 AM EDT [facility] Blood Capillary blood specimen / Unknown 10/13/2024 9:20 AM EDT 10/13/2024 9:21 AM EDT us Lamont Brumfield MD LAB POINT OF CARE TE ST DOCKED DEVICE UNSOLICITED RESULTS Final Result Performing Organization Address City/[facility] Co de Phone Number [facility] [address] [place] [address] * POCT glucose meter (10/13/2024 8:44 AM [...] 10/13/2024 8:47 AM EDT [facility] Facialist ID Moisés Lopez 10/13/2024 8:47 AM EDT [facility] Device ID [id number] 10/13/2024 8:47 AM EDT [facility] Specimen Type POC Capillary 10/13/2024 8:47 AM EDT [facility] Blood Capillary blood specimen / Unknown 10/13/2024 8:44 AM EDT 10/13/2024 8:47 AM EDT us Lamont Brumfield MD LAB POINT OF CARE TE ST DOCKED DEVICE UNSOLICITED RESULTS Final Result Performing Organization Address City/[facility]/ZIP Co de Phone Number [facility] [address] [place] [address] * (ABNORMAL) POCT glucose meter (10/12/2024 8:07 PM EDT) [facility] Signature POCT Glucose 123(H) 74 - 99 mg/dL [...] Comment 10/12/2024 8:09 PM EDT [facility] Facialist ID Day Nicole 10/12/2024 8:09 PM EDT [facility] Device ID [id number] 10/12/2024 8:09 PM EDT [facility] Specimen Type POC Capillary 10/12/2024 8:09 PM EDT [facility] Blood Capillary blood specimen / Unknown 10/12/2024 8:07 PM EDT 10/12/2024 8:09 PM EDT us Lamont Brumfield MD LAB POINT OF CARE TE ST DOCKED DEVICE UNSOLICITED RESULTS Final Result [facility] [address] [place] [address] * (ABNORMAL) POCT glucose meter (10/12/2024 5:32 PM EDT) [facility] POCT Glucose 104(H) 74 - 99 mg/dL [...] 10/12/2024 5:33 PM EDT [facility] Facialist Arlene Humphries 10/12/2024 5:33 PM EDT [facility] Device ID [id number] 10/12/2024 5:33 PM EDT [facility] Specimen Type POC Capillary 10/12/2024 5:33 PM EDT [facility] Blood Capillary blood specimen / Unknown 10/12/2024 5:32 PM EDT 10/12/2024 5:33 PM EDT Lamont Brumfield MD LAB POINT OF CARE TE ST DOCKED DEVICE UNSOLICITED RESULTS Final Result Performing Organization Address City/State/[facility] Co de Phone Number [facility] [address] [place] [address] * POCT glucose meter (10/12/2024 5:00 PM EDT) [facility] POCT Glucose 82 74 - 99 mg/dL [...] 10/12/2024 5:02 PM EDT [facility] Facialist Arlene Humphries 10/12/2024 5:02 PM EDT [facility] Device ID [id number] 10/12/2024 5:02 PM EDT [facility] Specimen Type POC Capillary 10/12/2024 5:02 PM EDT [facility] Blood Capillary blood specimen / Unknown 10/12/2024 5:00 PM EDT 10/12/2024 5:02 PM EDT Lamont Brumfield MD LAB POINT OF CARE TE ST DOCKED DEVICE UNSOLICITED RESULTS Final Result Performing Organization Address City/[facility] Co de Phone Number [facility] [address] [place] [address] * (ABNORMAL) POCT glucose meter (10/12/2024 12:02 [...] 10/12/2024 12:04 PM EDT [facility] Facialist ID Arlene Kerr 10/12/2024 12:04 PM EDT [facility] Device ID [id number] 10/12/2024 12:04 PM EDT [facility] Specimen Type POC Capillary 10/12/2024 12:04 PM EDT [facility] Blood Capillary blood specimen / Unknown 10/12/2024 12:02 PM EDT 10/12/2024 12:04 PM EDT us Lamont Brumfield MD LAB POINT OF CARE TE ST DOCKED DEVICE UNSOLICITED RESULTS Final Result Performing Organization Address City/[facility]/ZIP Co de Phone Number [facility] [address] [place] [address] * POCT glucose meter (10/12/2024 8:38 AM [...] 10/12/2024 8:39 AM EDT [facility] Facialist Arlene Humphries 10/12/2024 8:39 AM EDT [facility] Device ID [id number] 10/12/2024 8:39 AM EDT [facility] Specimen Type POC Capillary 10/12/2024 8:39 AM EDT [facility] Blood Capillary blood specimen / Unknown 10/12/2024 8:38 AM EDT 10/12/2024 8:39 AM EDT us Lamont Brumfield MD LAB POINT OF CARE TE ST DOCKED DEVICE UNSOLICITED RESULTS Final Result Performing Organization Address City/[facility] Phone Number [facility] [address] [place] [address] * POCT glucose meter (10/12/2024 8:00 AM EDT) [facility] POCT Glucose 88 74 - 99 mg/dL [...] Comment 10/12/2024 8:01 AM EDT [facility] Facialist Arlene Humphries 10/12/2024 8:01 AM EDT [facility] Device ID [id number] 10/12/2024 8:01 AM EDT [facility] Specimen Type POC Capillary 10/12/2024 8:01 AM EDT [facility] Blood Capillary blood specimen / Unknown 10/12/2024 8:00 AM EDT 10/12/2024 8:01 AM EDT us Lamont Brumfield MD LAB POINT OF CARE TE ST DOCKED DEVICE UNSOLICITED RESULTS Final Result Performing Organization Address City/State/[place] de Phone Number [facility] [address] [place] [address] * (ABNORMAL) POCT glucose meter (10/11/2024 7:34 PM EDT) [facility] POCT Glucose 145(H) 74 - 99 mg/dL [...] Comment 10/11/2024 7:35 PM EDT [facility] Facialist ID Day Nicole 10/11/2024 7:35 PM EDT [facility] Device ID [id number] 10/11/2024 7:35 PM EDT [facility] Specimen Type POC Capillary 10/11/2024 7:35 PM EDT [facility] Blood Capillary blood specimen / Unknown 10/11/2024 7:34 PM EDT 10/11/2024 7:35 PM EDT Lamont Brumfield MD LAB POINT OF CARE TE ST DOCKED DEVICE UNSOLICITED RESULTS Final Result Performing Organization Address [facility]/[place] de Phone Number [facility] [address] [place] [address] * (ABNORMAL) POCT glucose meter (10/11/2024 4:34 PM EDT) [facility] POCT Glucose 148(H) 74 - 99 mg/dL [...] 10/11/2024 4:37 PM EDT [facility] Facialist ID Amara Zhang 4:37 PM EDT [facility] Device ID [id number] 10/11/2024 4:37 PM EDT [facility] Specimen Type POC Capillary 10/11/2024 4:37 PM EDT [facility] Blood Capillary blood specimen / Unknown 10/11/2024 4:34 PM EDT 10/11/2024 4:37 PM EDT us Lamont Brumfield MD LAB POINT OF CARE TE ST DOCKED DEVICE UNSOLICITED RESULTS Final Result Performing Organization Address City/[facility]/ZIP Co de Phone Number [facility] [address] [place] [address] * (ABNORMAL) POCT glucose meter (10/11/2024 2:18 PM EDT) [facility] POCT Glucose 117(H) 74 - 99 mg/dL [...] Comment 10/11/2024 2:37 PM EDT [facility] Facialist ID Amara Zhang 2:37 PM EDT [facility] Device ID [id number] 10/11/2024 2:37 PM EDT [facility] Specimen Type POC Capillary 10/11/2024 2:37 PM EDT [facility] Blood Capillary blood specimen / Unknown 10/11/2024 2:18 PM EDT 10/11/2024 2:37 PM EDT us Lamont Brumfield MD LAB POINT OF CARE TE ST DOCKED DEVICE UNSOLICITED RESULTS Final Result Performing Organization Address City/[facility]/ZIP Co de Phone Number [facility] [address] [place] [address] * (ABNORMAL) POCT glucose meter (10/11/2024 8:37 [...] Comment 10/11/2024 8:38 AM EDT [facility] Facialist ID Moisés Lopez 10/11/2024 8:38 AM EDT [facility] Device ID [id number] 10/11/2024 8:38 AM EDT [facility] Specimen Type POC Capillary 10/11/2024 8:38 AM EDT [facility] Blood Capillary blood specimen / Unknown 10/11/2024 8:37 AM EDT 10/11/2024 8:38 AM EDT Lamont Brumfield MD LAB POINT OF CARE TE ST DOCKED DEVICE UNSOLICITED RESULTS Final Result [facility] [address] [place] [address] * (ABNORMAL) POCT glucose meter (10/10/2024 7:34 PM EDT) [facility] POCT Glucose 141(H) 74 - 99 mg/dL 10/10/2024 7:36 PM EDT [facility] Comment:Accuracy of a [...] for testing. Comment 10/10/2024 7:36 PM EDT [facility] Facialist ID Blair Murray Skyler 10/11/19 7:36 PM EDT [facility] Device ID [id number] 10/10/2024 7:36 PM EDT [facility] Specimen Type POC Capillary 10/10/2024 7:36 PM EDT [facility] Blood Capillary blood specimen / Unknown 10/10/2024 7:34 PM EDT 10/10/2024 7:36 PM EDT Lamont Brumfield MD LAB POINT OF CARE TE ST DOCKED DEVICE UNSOLICITED RESULTS Final Result Performing Organization Address [facility]/[place] de Phone Number [facility] [address] [place] [address] * (ABNORMAL) POCT glucose meter (10/10/2024 4:26 PM EDT) Pathologist [facility] POCT Glucose 126(H) 74 - 99 mg/dL [...] Comment 10/10/2024 4:28 PM EDT [facility] Facialist ID Lio Gomez 10/10/2024 4:28 PM EDT [facility] Device ID [id number] 10/10/2024 4:28 PM EDT [facility] Specimen Type POC Capillary 10/10/2024 4:28 PM EDT [facility] Blood Capillary blood specimen / Unknown 10/10/2024 4:26 PM EDT 10/10/2024 4:28 PM EDT us Lamont Brumfield MD LAB POINT OF CARE TE ST DOCKED DEVICE UNSOLICITED RESULTS Final Result Performing Organization Address City/[facility] Co de Phone Number [facility] [address] [place] [address] * (ABNORMAL) POCT glucose meter (10/10/2024 12:07 PM EDT) Pathologist [facility] POCT Glucose 145(H) 74 - 99 mg/dL [...] Comment 10/10/2024 12:09 PM EDT [facility] Facialist ID Lio Gomez 10/10/2024 12:09 PM EDT [facility] Device ID [id number] 10/10/2024 12:09 PM EDT [facility] Specimen Type POC Capillary 10/10/2024 12:09 PM EDT [facility] Blood Capillary blood specimen / Unknown 10/10/2024 12:07 PM EDT 10/10/2024 12:09 PM EDT us Lamont Brumfield MD LAB POINT OF CARE TE ST DOCKED DEVICE UNSOLICITED RESULTS Final Result Performing Organization Address City/State/[place] de Phone Number [facility] [address] [place] [address] * (ABNORMAL) POCT glucose meter (10/10/2024 9:40 AM EDT) [facility] POCT Glucose 162(H) 74 - 99 mg/dL [...] Comment 10/10/2024 9:41 AM EDT [facility] Facialist ID Lio Gomez 10/10/2024 9:41 AM EDT [facility] Device ID [id number] 10/10/2024 9:41 AM EDT [facility] Specimen Type POC Capillary 10/10/2024 9:41 AM EDT [facility] Blood Capillary blood specimen / Unknown 10/10/2024 9:40 AM EDT 10/10/2024 9:41 AM EDT us Lamont Brumfield MD LAB POINT OF CARE TE ST DOCKED DEVICE UNSOLICITED RESULTS Final Result [facility] [address] [place] [address] * (ABNORMAL) POCT glucose meter (10/10/2024 9:00 AM EDT) [facility] POCT Glucose 111(H) 74 - 99 mg/dL [...] Comment 10/10/2024 9:01 AM EDT [facility] Facialist ID Rose Guy 025 9:01 AM EDT [facility] Device ID [id number] 10/10/2024 9:01 AM EDT [facility] Specimen Type POC Capillary 10/10/2024 9:01 AM EDT [facility] Blood Capillary blood specimen / Unknown 10/10/2024 9:00 AM EDT 10/10/2024 9:01 AM EDT Lamont Brumfield MD LAB POINT OF CARE TE ST DOCKED DEVICE UNSOLICITED RESULTS Final Result Performing Organization Address [facility]/[place] de Phone Number [facility] [address] [place] [address] * (ABNORMAL) POCT glucose meter (10/09/2024 8:22 PM EDT) [facility] POCT Glucose 145(H) 74 - 99 mg/dL [...] 10/09/2024 8:24 PM EDT [facility] Facialist ID Marilee Sevilla 8:24 PM EDT [facility] Device ID [id number] 10/09/2024 8:24 PM EDT [facility] Specimen Type POC Capillary 10/09/2024 8:24 PM EDT [facility] Blood Capillary blood specimen / Unknown 10/09/2024 8:22 PM EDT 10/09/2024 8:24 PM EDT us Lamont Brumfield MD LAB POINT OF CARE TE ST DOCKED DEVICE UNSOLICITED RESULTS Final Result Performing Organization Address City/[facility] Co de Phone Number [facility] [address] [place] [address] * (ABNORMAL) POCT glucose meter (10/09/2024 4:43 PM EDT) [facility] POCT Glucose 176(H) 74 - 99 mg/dL [...] 10/09/2024 4:45 PM EDT [facility] Facialist ID Lio Gomez 10/09/2024 4:45 PM EDT [facility] Device ID [id number] 10/09/2024 4:45 PM EDT [facility] Specimen Type POC Capillary 10/09/2024 4:45 PM EDT [facility] Blood Capillary blood specimen / Unknown 10/09/2024 4:43 PM EDT 10/09/2024 4:45 PM EDT us Lamont Brumfield MD LAB POINT OF CARE TE ST DOCKED DEVICE UNSOLICITED RESULTS Final Result Performing Organization Address [facility] Co de Phone Number [facility] [address] [place] [address] * (ABNORMAL) Hemoglobin and Hematocrit, Blood (10/09/2024 3:45 PM EDT) [facility] HGB 8.2(L) 13.7 - 17.5 g/dL LAB HEMATOLOGY METHOD 10/09/2024 3:54 PM EDT [facility] HCT 23.7(L) 40.0 - 51.0 % LAB HEMATOLOGY METHOD 10/09/2024 3:54 PM EDT [facility] Blood Arterial blood specimen / Unknown Arterial Puncture / Unknown 10/09/2024 3:45 PM EDT 10/09/2024 3:52 PM EDT us Daphne Landry MAGISTRATE ASSISTANT, DNP LAB BLOOD ORDERABLES Selene l Result Performing Organization Address City/[facility] Co de Phone Number [facility] [address] [place] [address] * (ABNORMAL) POCT glucose meter (10/09/2024 8:01 AM EDT) [facility] POCT Glucose 100(H) 74 - 99 mg/dL 10/09/2024 11:23 AM EDT [facility] Comment:Accuracy of a [...] Comment 10/09/2024 11:23 AM EDT [facility] Facialist ID Lio Gomez 10/09/2024 11:23 AM EDT [facility] Device ID [id number] 10/09/2024 11:23 AM EDT [facility] Specimen Type POC Capillary 10/09/2024 11:23 AM EDT [facility] Blood Capillary blood specimen / Unknown 10/09/2024 8:01 AM EDT 10/09/2024 11:23 AM EDT us Lamont Brumfield MD LAB POINT OF CARE TE ST DOCKED DEVICE UNSOLICITED RESULTS Final Result Performing Organization Address City/[facility]/ZIP Co de Phone Number [facility] [address] [place] [address] * (ABNORMAL) POCT glucose meter (10/08/2024 7:37 PM EDT) [facility] POCT Glucose 138(H) 74 - 99 mg/dL [...] Comment 10/08/2024 7:39 PM EDT [facility] Facialist ID Grazyna Bhakta 025 7:39 PM EDT [facility] Device ID [id number] 10/08/2024 7:39 PM EDT [facility] Specimen Type POC Capillary 10/08/2024 7:39 PM EDT [facility] Blood Capillary blood specimen / Unknown 10/08/2024 7:37 PM EDT 10/08/2024 7:39 PM EDT Lamont Brumfield MD LAB POINT OF CARE TE ST DOCKED DEVICE UNSOLICITED RESULTS Final Result [facility] [address] [place] [address] * (ABNORMAL) POCT glucose meter (10/08/2024 4:42 PM EDT) [facility] POCT Glucose 109(H) 74 - 99 mg/dL [...] 10/08/2024 4:43 PM EDT [facility] Facialist ID Lio Gomez 10/08/2024 4:43 PM EDT [facility] Device ID [id number] 10/08/2024 4:43 PM EDT [facility] Specimen Type POC Capillary 10/08/2024 4:43 PM EDT [facility] Blood Capillary blood specimen / Unknown 10/08/2024 4:42 PM EDT 10/08/2024 4:43 PM EDT Lamont Brumfield MD LAB POINT OF CARE TE ST DOCKED DEVICE UNSOLICITED RESULTS Final Result Performing Organization Address City/[facility] Co de Phone Number [facility] [address] [place] [address] * (ABNORMAL) POCT glucose meter (10/08/2024 12:11 [...] Comment 10/08/2024 12:13 PM EDT [facility] Facialist ID Lio Gomez 10/08/2024 12:13 PM EDT [facility] Device ID [id number] 10/08/2024 12:13 PM EDT [facility] Specimen Type POC Capillary 10/08/2024 12:13 PM EDT [facility] Blood Capillary blood specimen / Unknown 10/08/2024 12:11 PM EDT 10/08/2024 12:13 PM EDT Lamont Brumfield MD LAB POINT OF CARE TE ST DOCKED DEVICE UNSOLICITED RESULTS Final Result Performing Organization Address City/[facility] Co de Phone Number [facility] [address] [place] [address] * (ABNORMAL) POCT glucose meter (10/08/2024 8:21 [...] Comment 10/08/2024 8:22 AM EDT [facility] Facialist ID Lio Gomez 10/08/2024 8:22 AM EDT [facility] Device ID [id number] 10/08/2024 8:22 AM EDT [facility] Specimen Type POC Capillary 10/08/2024 8:22 AM EDT [facility] Blood Capillary blood specimen / Unknown 10/08/2024 8:21 AM EDT 10/08/2024 8:22 AM EDT us Lamont Brumfield MD LAB POINT OF CARE TE ST DOCKED DEVICE UNSOLICITED RESULTS Final Result Performing Organization Address City/State/[facility] Co de Phone Number [facility] [address] [place] [address] * (ABNORMAL) POCT glucose meter (10/07/2024 9:10 PM EDT) [facility] POCT Glucose 134(H) 74 - 99 mg/dL [...] for testing. Comment 10/07/2024 9:12 PM EDT [facility] Facialist ID Marilee Sevilla 9:12 PM EDT [facility] Device ID [id number] 10/07/2024 9:12 PM EDT [facility] Specimen Type POC Capillary 10/07/2024 9:12 PM EDT [facility] Blood Capillary blood specimen / Unknown 10/07/2024 9:10 PM EDT 10/07/2024 9:12 PM EDT us Lamont Brumfield MD LAB POINT OF CARE TE ST DOCKED DEVICE UNSOLICITED RESULTS Final Result Performing Organization Address [facility] Co de Phone Number [facility] [address] [place] [address] * (ABNORMAL) POCT glucose meter (10/07/2024 4:28 PM EDT) [facility] POCT Glucose 145(H) 74 - 99 mg/dL 10/07/2024 4:30 PM EDT [facility] Comment:Accuracy of [...] Comment 10/07/2024 4:30 PM EDT [facility] Facialist ID Lopez, Alice 10/07/2024 4:30 PM EDT [facility] Device ID [id number] 10/07/2024 4:30 PM EDT [facility] Specimen Type POC Capillary 10/07/2024 4:30 PM EDT [facility] Blood Capillary blood specimen / Unknown 10/07/2024 4:28 PM EDT 10/07/2024 4:30 PM EDT Leda Zeng MD LAB POIN T OF CARE TEST DOCKED DEVICE UNSOLICITED RESULTS Final Result Performing Organization Address [facility]/[place] de Phone Number [facility] [address] [place] [address] * (ABNORMAL) POCT glucose meter (10/07/2024 1:04 PM EDT) [facility] POCT Glucose 165(H) 74 - 99 mg/dL [...] 10/07/2024 1:06 PM EDT [facility] Facialist ID Dorothea Rai 1:06 PM EDT [facility] Device ID [id number] 10/07/2024 1:06 PM EDT [facility] Specimen Type POC Capillary 10/07/2024 1:06 PM EDT [facility] Blood Capillary blood specimen / Unknown 10/07/2024 1:04 PM EDT 10/07/2024 1:06 PM EDT Leda Zeng MD LAB POIN T OF CARE TEST DOCKED DEVICE UNSOLICITED RESULTS Final Result Performing Organization Address City/[facility] Co de Phone Number [facility] [address] [place] [address] * (ABNORMAL) POCT glucose meter (10/07/2024 8:24 AM EDT) Pathologist [facility] POCT Glucose 116(H) 74 - 99 mg/dL [...] for testing. Comment 10/07/2024 8:26 AM EDT [facility] Facialist ID Moisés Lopez 10/07/2024 8:26 AM EDT [facility] Device ID [id number] 10/07/2024 8:26 AM EDT [facility] Specimen Type POC Capillary 10/07/2024 8:26 AM EDT [facility] Blood Capillary blood specimen / Unknown 10/07/2024 8:24 AM EDT 10/07/2024 8:26 AM EDT Leda Zeng MD LAB POIN T OF CARE TEST DOCKED DEVICE UNSOLICITED RESULTS Final Result Performing Organization Address City/[facility]/ZIP Co de Phone Number [facility] [address] [place] [address] * POCT glucose meter (10/07/2024 7:37 AM EDT) POCT Glucose 85 74 - 99 [...] Comment 10/07/2024 7:39 AM EDT [facility] Facialist ID Moisés Lopez 10/07/2024 7:39 AM EDT [facility] Device ID [id number] 10/07/2024 7:39 AM EDT [facility] Specimen Type POC Capillary 10/07/2024 7:39 AM EDT [facility] Blood Capillary blood specimen / Unknown 10/07/2024 7:37 AM EDT 10/07/2024 7:39 AM EDT Leda Zeng MD LAB POIN T OF CARE TEST DOCKED DEVICE UNSOLICITED RESULTS Final Result Performing Organization Address City/[facility] Co de Phone Number [facility] [address] [place] [address] * (ABNORMAL) Magnesium, Plasma (10/07/2024 2:48 AM EDT) [facility] Magnesium, Plasma 1.6(L) 1.9 - 2.4 mg/dL 10/07/2024 3:28 AM EDT [facility] Blood Venous blood specimen / Unknown Venipuncture / Unknown 10/07/2024 2:48 AM EDT 10/07/2024 2:58 AM EDT Leda Zeng MD LAB BLOOD ORDERA BLES Final Result [facility] [address] [place] [address] * (ABNORMAL) Renal Function Panel, Plasma (10/07/2024 2:48 AM EDT) [facility] Glucose, Plasma 96 74 - 99 mg/dL 10/07/2024 3:28 AM EDT [facility] BUN, Plasma 41(H) 8 - 23 mg/dL 10/07/2024 3:28 AM EDT [facility] Creatinine, Plasma 6.91(H) 0.70 - 1.20 mg/dL 10/07/2024 3:28 AM EDT [facility] BUN/Creatinine Ratio 6 10/07/2024 3:28 AM EDT [facility] Sodium, Plasma 125(L) 136 - 145 mmol/L 10/07/2024 3:28 AM EDT [facility] Potassium, Plasma 4.1 3.6 - 4.9 mmol/L 10/07/2024 3:28 AM EDT [facility] Chloride, Plasma 92(L) 97 - 107 mmol/L 10/07/2024 3:28 AM EDT [facility] CO2, Plasma 23 22 - 29 mmol/L 10/07/2024 3:28 AM EDT [facility] Anion Gap 10 6 - 16 mmol/L 10/07/2024 3:28 AM EDT [facility] Total Calcium, Plasma 7.2(L) 8.9 - 10.2 mg/dL 10/07/2024 3:28 AM EDT [facility] Phosphorus, Plasma 4.2 2.5 - 4.5 mg/dL 10/07/2024 3:28 AM EDT [facility] Albumin, Plasma 3.1(L) 3.5 - 5.2 g/dL 10/07/2024 3:28 AM EDT [facility] eGFRcr 8.2 mL/min/1.7 3m*2 10/07/2024 3:28 AM EDT [facility] Comment:Reported eGFRcr in m L/min/1.73m2 is based the CKD-EPI 2020 equation that does not use a race coefficient. Blood Venous blood specimen / Unknown Venipuncture / Unknown 10/07/2024 2:48 AM EDT 10/07/2024 2:58 AM EDT us Leda Zeng MD LAB BLOOD ORDERA BLES Final Result [facility] [address] [place] [id number] * (ABNORMAL) POCT glucose meter (10/06/2024 7:42 PM EDT) Pathologist [facility] POCT Glucose 129(H) 74 - 99 mg/dL [...] Comment 10/06/2024 7:44 PM EDT [facility] Facialist ID Grazyna Bhakta 025 7:44 PM EDT [facility] Device ID [id number] 10/06/2024 7:44 PM EDT [facility] Specimen Type POC Capillary 10/06/2024 7:44 PM EDT [facility] Blood Capillary blood specimen / Unknown 10/06/2024 7:42 PM EDT 10/06/2024 7:44 PM EDT Leda Zeng MD LAB POIN T OF CARE TEST DOCKED DEVICE UNSOLICITED RESULTS Final Result Performing Organization Address City/State/[facility] Co de Phone Number [facility] [address] [place] [address] * (ABNORMAL) POCT glucose meter (10/06/2024 5:00 PM EDT) [facility] POCT Glucose 137(H) 74 - 99 mg/dL [...] 10/06/2024 5:01 PM EDT [facility] Facialist ID Moisés Lopez 10/06/2024 5:01 PM EDT [facility] Device ID [id number] 10/06/2024 5:01 PM EDT [facility] Specimen Type POC Capillary 10/06/2024 5:01 PM EDT [facility] Blood Capillary blood specimen / Unknown 10/06/2024 5:00 PM EDT 10/06/2024 5:01 PM EDT Leda Zeng MD LAB POIN T OF CARE TEST DOCKED DEVICE UNSOLICITED RESULTS Final Result Performing Organization Address City/[facility] Co de Phone Number [facility] [address] [place] [address] * (ABNORMAL) POCT glucose meter (10/06/2024 12:03 PM EDT) POCT Glucose 122(H) 74 - 99 mg/dL [...] 10/06/2024 12:05 PM EDT [facility] Facialist ID Moisés Lopez 10/06/2024 12:05 PM EDT [facility] Device ID [id number] 10/06/2024 12:05 PM EDT [facility] Specimen Type POC Capillary 10/06/2024 12:05 PM EDT [facility] Blood Capillary blood specimen / Unknown 10/06/2024 12:03 PM EDT 10/06/2024 12:05 PM EDT Leda Zeng MD LAB POIN T OF CARE TEST DOCKED DEVICE UNSOLICITED RESULTS Final Result Performing Organization Address City/[facility]/ZIP Co de Phone Number [facility] [address] [place] [address] * POCT glucose meter (10/06/2024 11:10 AM EDT) POCT Glucose 96 74 - 99 mg/dL 10/06/2024 11:12 AM EDT [facility] Comment:Accuracy of [...] Comment 10/06/2024 11:12 AM EDT [facility] Facialist ID Moisés Lopez 10/06/2024 11:12 AM EDT [facility] Device ID [id number] 10/06/2024 11:12 AM EDT [facility] Specimen Type POC Capillary 10/06/2024 11:12 AM EDT [facility] LAB Blood Capillary blood specimen / Unknown 10/06/2024 11:10 AM EDT 10/06/2024 11:12 AM EDT Leda Zeng MD LAB POIN T OF CARE TEST DOCKED DEVICE UNSOLICITED RESULTS Final Result Performing Organization Address City/[facility] Co de Phone Number [facility] [address] [place] [address] * (ABNORMAL) Magnesium, Plasma (10/06/2024 3:05 AM EDT) Pathologist [facility] Magnesium, Plasma 1.8(L) 1.9 - 2.4 mg/dL 10/06/2024 3:55 AM EDT [facility] Blood Venous blood specimen / Unknown Venipuncture / Unknown 10/06/2024 3:05 AM EDT 10/06/2024 3:27 AM EDT Leda Zeng MD LAB BLOOD ORDERA BLES Final Result [facility] [address] [place] [address] * (ABNORMAL) Renal Function Panel, Plasma (10/06/2024 3:05 AM EDT) Glucose, Plasma 103(H) 74 - 99 mg/dL 10/06/2024 3:55 AM EDT [facility] BUN, Plasma 30(H) 8 - 23 mg/dL 10/06/2024 3:55 AM EDT [facility] Creatinine, Plasma 5.95(H) 0.70 - 1.20 mg/dL 10/06/2024 3:55 AM EDT [facility] BUN/Creatinine Ratio 5 10/06/2024 3:55 AM EDT [facility] Sodium, Plasma 125(L) 136 - 145 mmol/L 10/06/2024 3:55 AM EDT [facility] Potassium, Plasma 3.8 3.6 - 4.9 mmol/L 10/06/2024 3:55 AM EDT [facility] Chloride, Plasma 92(L) 97 - 107 mmol/L 10/06/2024 3:55 AM EDT [facility] CO2, Plasma 23 22 - 29 mmol/L 10/06/2024 3:55 AM EDT [facility] Anion Gap 10 6 - 16 mmol/L 10/06/2024 3:55 AM EDT [facility] Total Calcium, Plasma 7.5(L) 8.9 - 10.2 mg/dL 10/06/2024 3:55 AM EDT [facility] Phosphorus, Plasma 3.5 2.5 - 4.5 mg/dL 10/06/2024 3:55 AM EDT [facility] Albumin, Plasma 3.2(L) 3.5 - 5.2 g/dL 10/06/2024 3:55 AM EDT [facility] eGFRcr 9.8 mL/min/1.7 3m*2 10/06/2024 3:55 AM EDT [facility] Comment:Reported eGFRcr in m L/min/1.73m2 is based the CKD-EPI 2020 equation that does not use a race coefficient. Blood Venous blood specimen / Unknown Venipuncture / Unknown 10/06/2024 3:05 AM EDT 10/06/2024 3:27 AM EDT Leda Zeng MD LAB BLOOD ORDERA BLES Final Result [facility] [address] [place] [address] * (ABNORMAL) POCT glucose meter (10/05/2024 8:10 PM EDT) POCT Glucose 136(H) 74 - 99 mg/dL 10/05/2024 8:12 PM EDT [facility] Comment:Accuracy of [...] for testing. Comment 10/05/2024 8:12 PM EDT [facility] Facialist ID Wilbur Samayoa 10/05/2024 8:12 PM EDT [facility] Device ID [id number] 10/05/2024 8:12 PM EDT [facility] Specimen Type POC Capillary 10/05/2024 8:12 PM EDT [facility] Blood Capillary blood specimen / Unknown 10/05/2024 8:10 PM EDT 10/05/2024 8:12 PM EDT Leda Zeng MD LAB POIN T OF CARE TEST DOCKED DEVICE UNSOLICITED RESULTS Final Result [facility] [address] [place] [address] * (ABNORMAL) POCT glucose meter (10/05/2024 4:21 PM EDT) [facility] POCT Glucose 114(H) 74 - 99 mg/dL [...] for testing. Comment 10/05/2024 4:23 PM EDT [facility] Facialist ID Ricco Piper 10/05/2024 4:23 PM EDT [facility] Device ID [id number] 10/05/2024 4:23 PM EDT [facility] Specimen Type POC Capillary 10/05/2024 4:23 PM EDT [facility] Blood Capillary blood specimen / Unknown 10/05/2024 4:21 PM EDT 10/05/2024 4:23 PM EDT Leda Zeng MD LAB POIN T OF CARE TEST DOCKED DEVICE UNSOLICITED RESULTS Final Result Performing Organization Address [facility] de Phone Number [facility] [address] [place] [address] * (ABNORMAL) POCT glucose meter (10/05/2024 11:52 AM EDT) [facility] POCT Glucose 142(H) 74 - 99 mg/dL [...] Comment 10/05/2024 12:00 PM EDT [facility] Facialist ID Ricco Piper 10/05/2024 12:00 PM EDT [facility] Device ID [id number] 10/05/2024 12:00 PM EDT [facility] Specimen Type POC Capillary 10/05/2024 12:00 PM EDT [facility] Blood Capillary blood specimen / Unknown 10/05/2024 11:52 AM EDT 10/05/2024 12:00 PM EDT Leda Zeng MD LAB POIN T OF CARE TEST DOCKED DEVICE UNSOLICITED RESULTS Final Result Performing Organization Address City/[facility] Co de Phone Number [facility] [address] [place] [address] * (ABNORMAL) POCT glucose meter (10/05/2024 9:09 AM EDT) [facility] POCT Glucose 130(H) 74 - 99 mg/dL [...] for testing. Comment 10/05/2024 9:12 AM EDT [facility] Facialist ID Ricco Piper 10/05/2024 9:12 AM EDT [facility] Device ID [id number] 10/05/2024 9:12 AM EDT [facility] Specimen Type POC Capillary 10/05/2024 9:12 AM EDT [facility] Blood Capillary blood specimen / Unknown 10/05/2024 9:09 AM EDT 10/05/2024 9:12 AM EDT us Leda Zeng MD LAB POIN T OF CARE TEST DOCKED DEVICE UNSOLICITED RESULTS Final Result Performing Organization Address City/[facility] Co de Phone Number [facility] [address] [place] [address] * POCT glucose meter (10/05/2024 7:47 AM EDT) [facility] POCT Glucose 89 74 - 99 mg/dL [...] Comment 10/05/2024 7:52 AM EDT [facility] Facialist ID Ricco Piper 10/05/2024 7:52 AM EDT [facility] LAB Device ID [id number] 10/05/2024 7:52 AM EDT [facility] Specimen Type POC Capillary 10/05/2024 7:52 AM EDT [facility] Blood Capillary blood specimen / Unknown 10/05/2024 7:47 AM EDT 10/05/2024 7:52 AM EDT us Leda Zeng MD LAB POIN T OF CARE TEST DOCKED DEVICE UNSOLICITED RESULTS Final Result [facility] [address] [place] [address] * (ABNORMAL) POCT glucose meter (10/04/2024 7:49 PM EDT) [facility] POCT Glucose 152(H) 74 - 99 mg/dL [...] for testing. Comment 10/04/2024 7:54 PM EDT [facility] Facialist ID Grazyna Bhakta 025 7:54 PM EDT [facility] Device ID [id number] 10/04/2024 7:54 PM EDT [facility] Specimen Type POC Capillary 10/04/2024 7:54 PM EDT [facility] Blood Capillary blood specimen / Unknown 10/04/2024 7:49 PM EDT 10/04/2024 7:54 PM EDT Leda Zeng MD LAB POIN T OF CARE TEST DOCKED DEVICE UNSOLICITED RESULTS Final Result [facility] [address] [place] [address] * (ABNORMAL) POCT glucose meter (10/04/2024 4:56 PM EDT) [facility] POCT Glucose 127(H) 74 - 99 mg/dL [...] 10/04/2024 4:58 PM EDT [facility] Facialist ID Precious Thomason 4:58 PM EDT [facility] Device ID [id number] 10/04/2024 4:58 PM EDT [facility] Specimen Type POC Capillary 10/04/2024 4:58 PM EDT [facility] Blood Capillary blood specimen / Unknown 10/04/2024 4:56 PM EDT 10/04/2024 4:58 PM EDT Leda Zeng MD LAB POIN T OF CARE TEST DOCKED DEVICE UNSOLICITED RESULTS Final Result Performing Organization Address City/[facility] Co de Phone Number [facility] [address] [place] [address] * (ABNORMAL) POCT glucose meter (10/04/2024 1:06 PM EDT) Pathologist [facility] POCT Glucose 118(H) 74 - 99 mg/dL [...] Comment 10/04/2024 1:07 PM EDT [facility] Facialist ID Precious Thomason 1:07 PM EDT [facility] Device ID [id number] 10/04/2024 1:07 PM EDT [facility] Specimen Type POC Capillary 10/04/2024 1:07 PM EDT [facility] Blood Capillary blood specimen / Unknown 10/04/2024 1:06 PM EDT 10/04/2024 1:07 PM EDT Leda Zeng MD LAB POIN T OF CARE TEST DOCKED DEVICE UNSOLICITED RESULTS Final Result Performing Organization Address City/[facility] Co de Phone Number [facility] [address] [place] [address] * (ABNORMAL) POCT glucose meter (10/04/2024 12:33 [...] 10/04/2024 12:35 PM EDT [facility] Facialist ID Nora Barillas 10/05/19 12:35 PM EDT [facility] Device ID [id number] 10/04/2024 12:35 PM EDT [facility] Specimen Type POC Venous 10/04/2024 12:35 PM EDT [facility] Blood Venous blood specimen / Unknown 10/04/2024 12:33 PM EDT 10/04/2024 12:35 PM EDT Leda Zeng MD LAB POIN T OF CARE TEST DOCKED DEVICE UNSOLICITED RESULTS Final Result [facility] [address] [place] [address] * POCT glucose meter (10/04/2024 7:36 AM EDT) [facility] POCT Glucose 98 74 - 99 mg/dL [...] 10/04/2024 7:37 AM EDT [facility] Facialist ID Precious Thomason 7:37 AM EDT [facility] Device ID [id number] 10/04/2024 7:37 AM EDT [facility] Specimen Type POC Capillary 10/04/2024 7:37 AM EDT [facility] Blood Capillary blood specimen / Unknown 10/04/2024 7:36 AM EDT 10/04/2024 7:37 AM EDT Leda Zeng MD LAB POIN T OF CARE TEST DOCKED DEVICE UNSOLICITED RESULTS Final Result Performing Organization Address [facility] de Phone Number [facility] [address] [place] [address] * POCT glucose meter (10/04/2024 7:31 AM EDT) Pathologist [facility] POCT Glucose 98 74 - 99 mg/dL [...] Comment 10/04/2024 7:33 AM EDT [facility] Facialist ID Precious Thomason 7:33 AM EDT [facility] Device ID [id number] 10/04/2024 7:33 AM EDT [facility] Specimen Type POC Capillary 10/04/2024 7:33 AM EDT [facility] Blood Capillary blood specimen / Unknown 10/04/2024 7:31 AM EDT 10/04/2024 7:33 AM EDT Leda Zeng MD LAB POIN T OF CARE TEST DOCKED DEVICE UNSOLICITED RESULTS Final Result Performing Organization Address City/[facility] Co de Phone Number [facility] [address] [place] [address] * (ABNORMAL) POCT glucose meter (10/04/2024 6:42 AM EDT) Pathologist [facility] POCT Glucose 100(H) 74 - 99 mg/dL [...] Comment 10/04/2024 6:46 AM EDT [facility] Facialist ID Princess Elsa 025 6:46 AM EDT [facility] Device ID [id number] 10/04/2024 6:46 AM EDT [facility] Specimen Type POC Capillary 10/04/2024 6:46 AM EDT [facility] Blood Capillary blood specimen / Unknown 10/04/2024 6:42 AM EDT 10/04/2024 6:46 AM EDT us Leda Zeng MD LAB POIN T OF CARE TEST DOCKED DEVICE UNSOLICITED RESULTS Final Result Performing Organization Address City/[facility] Co de Phone Number [facility] [address] [place] [address] * (ABNORMAL) Magnesium, Plasma (10/04/2024 4:20 AM EDT) Magnesium, Plasma 1.7(L) 1.9 - 2.4 mg/dL 10/04/2024 5:08 AM EDT [facility] Blood Venous blood specimen / Unknown Venipuncture / Unknown 10/04/2024 4:20 AM EDT 10/04/2024 4:25 AM EDT us Leda Zeng MD LAB BLOOD ORDERA BLES Final Result Performing Organization Address City/[facility]/ZIP Co de Phone Number [facility] [address] [place] [address] * (ABNORMAL) Renal Function Panel, Plasma (10/04/2024 4:20 AM EDT) Glucose, Plasma 84 74 - 99 mg/dL 10/04/2024 5:08 AM EDT [facility] BUN, Plasma 31(H) 8 - 23 mg/dL 10/04/2024 5:08 AM EDT [facility] Creatinine, Plasma 6.91(H) 0.70 - 1.20 mg/dL 10/04/2024 5:08 AM EDT [facility] BUN/Creatinine Ratio 4 10/04/2024 5:08 AM EDT [facility] Sodium, Plasma 128(L) 136 - 145 mmol/L 10/04/2024 5:08 AM EDT [facility] Potassium, Plasma 3.8 3.6 - 4.9 mmol/L 10/04/2024 5:08 AM EDT [facility] Chloride, Plasma 94(L) 97 - 107 mmol/L 10/04/2024 5:08 AM EDT [facility] CO2, Plasma 24 22 - 29 mmol/L 10/04/2024 5:08 AM EDT [facility] Anion Gap 10 6 - 16 mmol/L 10/04/2024 5:08 AM EDT [facility] Total Calcium, Plasma 7.3(L) 8.9 - 10.2 mg/dL 10/04/2024 5:08 AM EDT [facility] Phosphorus, Plasma 3.5 2.5 - 4.5 mg/dL 10/04/2024 5:08 AM EDT [facility] Albumin, Plasma 3.2(L) 3.5 - 5.2 g/dL 10/04/2024 5:08 AM EDT [facility] eGFRcr 8.2 mL/min/1.7 3m*2 10/04/2024 5:08 AM EDT [facility] Comment:Reported eGFRcr in m L/min/1.73m2 is based the CKD-EPI 2020 equation that does not use a race coefficient. Blood Venous blood specimen / Unknown Venipuncture / Unknown 10/04/2024 4:20 AM EDT 10/04/2024 4:25 AM EDT Leda Zeng MD LAB BLOOD ORDERA BLES Final Result [facility] [address] [place] [address] * (ABNORMAL) POCT glucose meter (10/03/2024 7:54 PM EDT) [facility] POCT Glucose 135(H) 74 - 99 mg/dL 10/03/2024 8:00 PM EDT [facility] Comment:Accuracy of a [...] for testing. Comment 10/03/2024 8:00 PM EDT [facility] Facialist ID Princess Elsa 025 8:00 PM EDT [facility] Device ID [id number] 10/03/2024 8:00 PM EDT [facility] Specimen Type POC Capillary 10/03/2024 8:00 PM EDT [facility] Blood Capillary blood specimen / Unknown 10/03/2024 7:54 PM EDT 10/03/2024 8:00 PM EDT us Leda Zeng MD LAB POIN T OF CARE TEST DOCKED DEVICE UNSOLICITED RESULTS Final Result Performing Organization Address City/State/[facility] Co de Phone Number [facility] [address] [place] [address] * (ABNORMAL) POCT glucose meter (10/03/2024 4:07 PM EDT) [facility] POCT Glucose 116(H) 74 - 99 mg/dL 10/03/2024 4:09 PM EDT [facility] Comment:Accuracy of a [...] for testing. Comment 10/03/2024 4:09 PM EDT [facility] Facialist ID Precious Thomason 4:09 PM EDT [facility] Device ID [id number] 10/03/2024 4:09 PM EDT [facility] Specimen Type POC Capillary 10/03/2024 4:09 PM EDT [facility] Blood Capillary blood specimen / Unknown 10/03/2024 4:07 PM EDT 10/03/2024 4:09 PM EDT us Leda Zeng MD LAB POIN T OF CARE TEST DOCKED DEVICE UNSOLICITED RESULTS Final Result Performing Organization Address City/[facility]/ZIP Co de Phone Number [facility] [address] [place] [address] * (ABNORMAL) POCT glucose meter (10/03/2024 12:29 PM EDT) POCT Glucose 124(H) 74 - 99 mg/dL 10/03/2024 12:30 PM EDT [facility] Comment:Accuracy of a [...] for testing. Comment 10/03/2024 12:30 PM EDT [facility] Facialist ID Precious Thomason 12:30 PM EDT [facility] Device ID [id number] 10/03/2024 12:30 PM EDT [facility] Specimen Type POC Capillary 10/03/2024 12:30 PM EDT [facility] Blood Capillary blood specimen / Unknown 10/03/2024 12:29 PM EDT 10/03/2024 12:30 PM EDT us Leda Zeng MD LAB POIN T OF CARE TEST DOCKED DEVICE UNSOLICITED RESULTS Final Result Performing Organization Address City/[facility] Co de Phone Number [facility] [address] [place] [address] * (ABNORMAL) POCT glucose meter (10/03/2024 8:12 [...] for testing. Comment 10/03/2024 8:14 AM EDT [facility] Facialist ID Precious Thomason 8:14 AM EDT [facility] Device ID [id number] 10/03/2024 8:14 AM EDT [facility] Specimen Type POC Capillary 10/03/2024 8:14 AM EDT [facility] Blood Capillary blood specimen / Unknown 10/03/2024 8:12 AM EDT 10/03/2024 8:14 AM EDT Leda Zeng MD LAB POIN T OF CARE TEST DOCKED DEVICE UNSOLICITED RESULTS Final Result Performing Organization Address City/[facility]/ZIP Co de Phone Number [facility] [address] [place] [address] * (ABNORMAL) Magnesium, Plasma (10/03/2024 3:21 AM EDT) Magnesium, Plasma 1.8(L) 1.9 - 2.4 mg/dL 10/03/2024 4:29 AM EDT [facility] Blood Venous blood specimen / Unknown Venipuncture / Unknown 10/03/2024 3:21 AM EDT 10/03/2024 4:00 AM EDT Leda Zeng MD LAB BLOOD ORDERA BLES Final Result Performing Organization Address City/[facility]/ZIP Co de Phone Number [facility] [address] [place] [address] * (ABNORMAL) Renal Function Panel, Plasma (10/03/2024 3:21 AM EDT) Glucose, Plasma 119(H) 74 - 99 mg/dL 10/03/2024 4:29 AM EDT [facility] BUN, Plasma 24(H) 8 - 23 mg/dL 10/03/2024 4:29 AM EDT [facility] Creatinine, Plasma 5.69(H) 0.70 - 1.20 mg/dL 10/03/2024 4:29 AM EDT [facility] BUN/Creatinine Ratio 4 10/03/2024 4:29 AM EDT [facility] Sodium, Plasma 131(L) 136 - 145 mmol/L 10/03/2024 4:29 AM EDT [facility] Potassium, Plasma 3.9 3.6 - 4.9 mmol/L 10/03/2024 4:29 AM EDT [facility] Chloride, Plasma 96(L) 97 - 107 mmol/L 10/03/2024 4:29 AM EDT [facility] CO2, Plasma 26 22 - 29 mmol/L 10/03/2024 4:29 AM EDT [facility] Anion Gap 9 6 - 16 mmol/L 10/03/2024 4:29 AM EDT [facility] Total Calcium, Plasma 7.2(L) 8.9 - 10.2 mg/dL 10/03/2024 4:29 AM EDT [facility] Phosphorus, Plasma 3.0 2.5 - 4.5 mg/dL 10/03/2024 4:29 AM EDT [facility] Albumin, Plasma 3.2(L) 3.5 - 5.2 g/dL 10/03/2024 4:29 AM EDT [facility] eGFRcr 10.3 mL/min/1.7 3m*2 10/03/2024 4:29 AM EDT [facility] Comment:Reported eGFRcr in m L/min/1.73m2 is based the CKD-EPI 2020 equation that does not use a race coefficient. Blood Venous blood specimen / Unknown Venipuncture / Unknown 10/03/2024 3:21 AM EDT 10/03/2024 4:00 AM EDT Leda Zeng MD LAB BLOOD ORDERA BLES Final Result [facility] [address] [place] [id number] * (ABNORMAL) POCT glucose meter (10/02/2024 9:06 PM EDT) [facility] POCT Glucose 143(H) 74 - 99 mg/dL 10/02/2024 9:08 PM EDT [facility] Comment:Accuracy of a glucos e result [...] Comment 10/02/2024 9:08 PM EDT [facility] Facialist ID Ashia Daniels 10/03/19 9:08 PM EDT [facility] Device ID [id number] 10/02/2024 9:08 PM EDT [facility] Specimen Type POC Capillary 10/02/2024 9:08 PM EDT [facility] Blood Capillary blood specimen / Unknown 10/02/2024 9:06 PM EDT 10/02/2024 9:08 PM EDT us Leda Zeng MD LAB POIN T OF CARE TEST DOCKED DEVICE UNSOLICITED RESULTS Final Result Performing Organization Address City/[facility] Co de Phone Number [facility] [address] [place] [address] * (ABNORMAL) POCT glucose meter (10/02/2024 4:43 PM EDT) POCT Glucose 172(H) 74 - 99 mg/dL [...] Comment 10/02/2024 4:45 PM EDT [facility] Facialist ID Viridiana Pichardo 4:45 PM EDT [facility] Device ID [id number] 10/02/2024 4:45 PM EDT [facility] Specimen Type POC Capillary 10/02/2024 4:45 PM EDT [facility] Blood Capillary blood specimen / Unknown 10/02/2024 4:43 PM EDT 10/02/2024 4:45 PM EDT us Leda Zeng MD LAB POIN T OF CARE TEST DOCKED DEVICE UNSOLICITED RESULTS Final Result [facility] [address] [place] [address] * (ABNORMAL) POCT glucose meter (10/02/2024 11:55 [...] for testing. Comment 10/02/2024 11:56 AM EDT [facility] Facialist ID Viridiana Pichardo 11:56 AM EDT [facility] Device ID [id number] 10/02/2024 11:56 AM EDT [facility] Specimen Type POC Capillary 10/02/2024 11:56 AM EDT [facility] Blood Capillary blood specimen / Unknown 10/02/2024 11:55 AM EDT 10/02/2024 11:56 AM EDT Leda Zeng MD LAB POIN T OF CARE TEST DOCKED DEVICE UNSOLICITED RESULTS Final Result [facility] [address] [place] [address] * PTH, intact (10/02/2024 9:58 AM EDT) Pathologist [facility] PTH Intact Total 9 9 - 77 pg/mL 10/02/2024 2:50 PM EDT [facility] Blood Venous blood specimen / Unknown Venipuncture / Unknown 10/02/2024 9:58 AM EDT 10/02/2024 11:19 AM EDT Narrative [facility] - 10/02/2024 2:50 PM EDT Assay performed by immunoassay at the [facility]. Performed on [employer] chemiluminescent immunoassay, tractable to the World Health Organization's first international standard for PTH from the NIBSC, Code 79/500. Results obtained from different test methods or kits cannot be used interchangeably. Leda Zeng MD LAB BLOOD ORDERA BLES Final Result Performing Organization Address [facility] Co de Phone Number [facility] [address] [place] [address] * Hepatitis C Virus (HCV) Quantitative PCR (10/02/2024 7:51 AM EDT) Pathologist [facility] Hepatitis C Virus (HCV) Quantitative Interpretation Not Detected Not Detected. 10/04/2024 2:37 PM EDT [facility] Blood Venous blood specimen / Unknown Venipuncture / Unknown 10/02/2024 7:51 AM EDT 10/02/2024 8:36 AM EDT Narrative [facility] - 10/04/2024 2:37 PM EDT The Sift M2000 HCV test is a Real Time [...] FDA approved for clinical use. Daphne Landry MAGISTRATE ASSISTANT, DNP LAB BLOOD ORDERABLES Selene l Result Performing Organization Address [facility]/ZIP Co de Phone Number [facility] [address] [place] [address] * (ABNORMAL) Hepatitis panel, acute (10/02/2024 7:51 AM EDT) Pathologist [facility] Hepatitis B Surf Antigen Negative Negative 10/02/2024 3:10 PM EDT [facility] Hepatitis C Antibody Positive(A) Negative 10/02/2024 3:10 PM EDT [facility] Comment:This specimen is jamey ng sent for confirmation by RT-PCR. Hepatitis A Antibody IgM Negative Negative 10/02/2024 3:10 PM EDT [facility] Hepatitis B Core Antibody IgM Negative Negative 10/02/2024 3:10 PM EDT [facility] Blood Venous blood specimen / Unknown Venipuncture / Unknown 10/02/2024 7:51 AM EDT 10/02/2024 8:36 AM EDT Daphne Landry MAGISTRATE ASSISTANT, DNP LAB BLOOD ORDERABLES Selene l Result Performing Organization Address [facility] Phone Number [facility] [address] [place] [address] * (ABNORMAL) Hepatitis B Surface Antibody, Quantitative (10/02/2024 7:51 AM EDT) [facility] Hepatitis B Surface Antibody, Quantitative 62.12(H) NonReacti ve: <8, Grayzone: 8 - <12, Reactive: >= 12 mIU/mL 10/02/2024 12:27 PM EDT [facility] Comment: Reactive. Individual is considered immune to HBV infection. Blood Venous blood specimen / Unknown Venipuncture / Unknown 10/02/2024 7:51 AM EDT 10/02/2024 8:35 AM EDT Daphne Landry APRN, DNP LAB BLOOD ORDERABLES Selene l Result Performing Organization Address [facility] [place] [address] * Vitamin D 25 Hydroxy (10/02/2024 5:36 AM EDT) [facility] Vitamin D 25 Hydroxy 33.5 20.0 - 80.0 ng/mL 10/02/2024 9:56 AM EDT [facility] Blood Venous blood specimen / Unknown Venipuncture / Unknown 10/02/2024 5:36 AM EDT 10/02/2024 5:42 AM EDT Narrative [facility] - 10/02/2024 9:56 AM EDT Testing performed on [employer], standardized against NIST SRM 2972. When testing [...] to 80 ng/mL Possible toxicity: >100 ng/mL Laithnikolay Juan Manuel [facility] LAB BLOOD ORDERABLES Final Re sult Performing Organization Address [facility] Co de Phone Number [facility] [address] [place] [address] * Magnesium, Plasma (10/02/2024 5:36 AM EDT) Magnesium, Plasma 2.0 1.9 - 2.4 mg/dL 10/02/2024 6:06 AM EDT [facility] Blood Venous blood specimen / Unknown Venipuncture / Unknown 10/02/2024 5:36 AM EDT 10/02/2024 5:42 AM EDT [facility] LAB BLOOD ORDERABLES Final Re sult Performing Organization Address [facility]/[place] de Phone Number [facility] [address] [place] [address] * (ABNORMAL) Ferritin, Serum (10/02/2024 5:36 AM EDT) Ferritin, Serum 1,701(H) 20 - 400 ng/mL 10/02/2024 8:36 AM EDT [facility] Blood Venous blood specimen / Unknown Venipuncture / Unknown 10/02/2024 5:36 AM EDT 10/02/2024 5:42 AM EDT [facility] BLOOD ORDERABLES Final Re sult Performing Organization Address [facility] de Phone Number [facility] [address] [place], [place] [id number] * (ABNORMAL) Renal Function Panel, Plasma (10/02/2024 5:36 AM EDT) Glucose, Plasma 95 74 - 99 mg/dL 10/02/2024 6:06 AM EDT [facility] BUN, Plasma 37(H) 8 - 23 mg/dL 10/02/2024 6:06 AM EDT [facility] Creatinine, Plasma 8.81(H) 0.70 - 1.20 mg/dL 10/02/2024 6:06 AM EDT [facility] BUN/Creatinine Ratio 4 10/02/2024 6:06 AM EDT [facility] Sodium, Plasma 132(L) 136 - 145 mmol/L 10/02/2024 6:06 AM EDT [facility] Potassium, Plasma 3.8 3.6 - 4.9 mmol/L 10/02/2024 6:06 AM EDT [facility] Chloride, Plasma 94(L) 97 - 107 mmol/L 10/02/2024 6:06 AM EDT [facility] CO2, Plasma 26 22 - 29 mmol/L 10/02/2024 6:06 AM EDT [facility] Anion Gap 12 6 - 16 mmol/L 10/02/2024 6:06 AM EDT [facility] Total Calcium, Plasma 7.4(L) 8.9 - 10.2 mg/dL 10/02/2024 6:06 AM EDT [facility] Phosphorus, Plasma 3.9 2.5 - 4.5 mg/dL 10/02/2024 6:06 AM EDT [facility] Albumin, Plasma 3.3(L) 3.5 - 5.2 g/dL 10/02/2024 6:06 AM EDT [facility] eGFRcr 6.1 mL/min/1.7 3m*2 10/02/2024 6:06 AM EDT [facility] Comment:Reported eGFRcr in m L/min/1.73m2 is based the CKD-EPI 2020 equation that does not use a race coefficient. Blood Venous blood specimen / Unknown Venipuncture / Unknown 10/02/2024 5:36 AM EDT 10/02/2024 5:42 AM EDT us Lala Valdes APRN LAB BLOOD ORDERABLES Final Re sult [facility] [address] [place] [address] * (ABNORMAL) CBC and Differential (10/02/2024 5:36 AM EDT) [facility] Signature WBC Count 7.44 3.70 - 10.30 10*3/uL LAB HEMATOLOGY METHOD 10/02/2024 5:44 AM EDT [facility] RBC Count 3.30(L) 4.60 - 6.10 10*6/uL LAB HEMATOLOGY METHOD 10/02/2024 5:44 AM EDT [facility] HGB 10.4(L) 13.7 - 17.5 g/dL LAB HEMATOLOGY METHOD 10/02/2024 5:44 AM EDT [facility] HCT 29.8(L) 40.0 - 51.0 % LAB HEMATOLOGY METHOD 10/02/2024 5:44 AM EDT [facility] Platelet Count 119(L) 155 - 369 10*3/uL LAB HEMATOLOGY METHOD 10/02/2024 5:44 AM EDT [facility] MCV 90 79 - 98 fL LAB HEMATOLOGY METHOD 10/02/2024 5:44 AM EDT [facility] MCH 31.5 26.0 - 32.0 pg LAB HEMATOLOGY METHOD 10/02/2024 5:44 AM EDT [facility] MCHC 34.9 30.7 - 35.5 g/dL LAB HEMATOLOGY METHOD 10/02/2024 5:44 AM EDT [facility] RDW 12.5 11.5 - 14.5 % LAB HEMATOLOGY METHOD 10/02/2024 5:44 AM EDT [facility] MPV 9.5 8.8 - 12.5 fL LAB HEMATOLOGY METHOD 10/02/2024 5:44 AM EDT [facility] nRBC 0.0 <=0.0 per 100 WBCs LAB HEMATOLOGY METHOD 10/02/2024 5:44 AM EDT [facility] Differential Type Automated LAB HEMATOLOGY METHOD 10/02/2024 5:44 AM EDT [facility] Neutrophils % 59 % LAB HEMATOLOGY METHOD 10/02/2024 5:44 AM EDT [facility] Lymphocytes % 28 % LAB HEMATOLOGY METHOD 10/02/2024 5:44 AM EDT [facility] Monocytes % 7 % LAB HEMATOLOGY METHOD 10/02/2024 5:44 AM EDT [facility] Eosinophils % 4 % LAB HEMATOLOGY METHOD 10/02/2024 5:44 AM EDT [facility] Basophils % 1 % LAB HEMATOLOGY METHOD 10/02/2024 5:44 AM EDT [facility] Immature Granulocytes % 1 % LAB HEMATOLOGY METHOD 10/02/2024 5:44 AM EDT [facility] Neutrophils Absolute 4.44 1.60 - 6.10 10*3/uL LAB HEMATOLOGY METHOD 10/02/2024 5:44 AM EDT [facility] Lymphocytes Absolute 2.10 1.20 - 3.90 10*3/uL LAB HEMATOLOGY METHOD 10/02/2024 5:44 AM EDT [facility] Monocytes Absolute 0.53 0.30 - 0.90 10*3/uL LAB HEMATOLOGY METHOD 10/02/2024 5:44 AM EDT [facility] Eosinophils Absolute 0.26 0.00 - 0.50 10*3/uL LAB HEMATOLOGY METHOD 10/02/2024 5:44 AM EDT [facility] Basophils Absolute 0.06 0.00 - 0.10 10*3/uL LAB HEMATOLOGY METHOD 10/02/2024 5:44 AM EDT [facility] Immature Granulocytes Absolute 0.05 0.00 - 0.06 10*3/uL LAB HEMATOLOGY METHOD 10/02/2024 5:44 AM EDT [facility] Blood Venous blood specimen / Unknown Venipuncture / Unknown 10/02/2024 5:36 AM EDT 10/02/2024 5:42 AM EDT [facility] - 10/02/2024 5:44 AM EDT Therapeutic decision making should be based on absolute values, rather than percentages. us Lala Valdes APRN LAB BLOOD ORDERABLES Final Re sult [facility] [address] [place] [id number] * Multi Drug Resistance Test (10/01/2024 9:04 PM EDT) Culture No growth at day 1 10/03/2024 5:35 AM EDT [facility] Swab (Nares and Sydni Rectal) Non-blood Collection / Unknown 10/01/2024 9:04 PM EDT 10/01/2024 9:46 PM EDT [facility] - 10/03/2024 5:35 AM EDT This test was developed and its performance characteristics determined by the [facility]. Although the media is FDA-approved, it is not FDA-approved for all specimen types submitted. The FDA has determined that such clearance or approval is not necessary. This test is used for surveillance purposes. It should not be regarded as investigational or for research. The [facility] is certified under the Clinical Laboratory Improvement Amendments of 1988 (CLIA-88) as qualified to perform high complexity clinical laboratory testing. Lala Valdes APRN LAB MICROBIOLOGY - GENERAL OR DERABLES Final Result Performing Organization Address City/[facility]/ZIP Co de Phone Number [facility] [address] [place] [address] * (ABNORMAL) POCT glucose meter (10/01/2024 8:38 PM EDT) [facility] POCT Glucose 151(H) 74 - 99 mg/dL [...] for testing. Comment 10/01/2024 8:39 PM EDT [facility] Facialist ID Ashia Daniels 10/02/19 8:39 PM EDT [facility] Device ID [id number] 10/01/2024 8:39 PM EDT [facility] Specimen Type POC Capillary 10/01/2024 8:39 PM EDT [facility] Blood Capillary blood specimen / Unknown 10/01/2024 8:38 PM EDT 10/01/2024 8:39 PM EDT Leda Zeng MD LAB POIN T OF CARE TEST DOCKED DEVICE UNSOLICITED RESULTS Final Result Performing Organization Address City/[facility]/ZIP Co de Phone Number [facility] [address] [place] [address] * (ABNORMAL) POCT glucose meter (10/01/2024 4:02 PM EDT) [facility] POCT Glucose 127(H) 74 - 99 mg/dL [...] Comment 10/01/2024 4:04 PM EDT [facility] Facialist ID Precious Thomason 4:04 PM EDT [facility] Device ID [id number] 10/01/2024 4:04 PM EDT [facility] Specimen Type POC Capillary 10/01/2024 4:04 PM EDT [facility] Blood Capillary blood specimen / Unknown 10/01/2024 4:02 PM EDT 10/01/2024 4:04 PM EDT Fajardorogelio Wooten MD LAB POINT OF CA RE TEST DOCKED DEVICE UNSOLICITED RESULTS Final Result Performing Organization Address City/State/[facility] Co de Phone Number [facility] [address] [place] [address] * (ABNORMAL) POCT glucose meter (10/01/2024 12:21 PM EDT) [facility] POCT Glucose 142(H) 74 - 99 mg/dL [...] 10/01/2024 12:22 PM EDT [facility] Facialist ID Precious Thomason 12:22 PM EDT [facility] Device ID [id number] 10/01/2024 12:22 PM EDT [facility] Specimen Type POC Capillary 10/01/2024 12:22 PM EDT [facility] Blood Capillary blood specimen / Unknown 10/01/2024 12:21 PM EDT 10/01/2024 12:22 PM EDT Tana Wooten MD LAB POINT OF CA RE TEST DOCKED DEVICE UNSOLICITED RESULTS Final Result Performing Organization Address [facility] Co de Phone Number [facility] [address] [place] [address] * (ABNORMAL) POCT glucose meter (10/01/2024 8:29 [...] Comment 10/01/2024 8:30 AM EDT [facility] Facialist ID Precious Thomason 8:30 AM EDT [facility] Device ID [id number] 10/01/2024 8:30 AM EDT [facility] Specimen Type POC Capillary 10/01/2024 8:30 AM EDT [facility] Blood Capillary blood specimen / Unknown 10/01/2024 8:29 AM EDT 10/01/2024 8:30 AM EDT Tana Wooten MD LAB POINT OF CA RE TEST DOCKED DEVICE UNSOLICITED RESULTS Final Result Performing Organization Address City/[facility]/ZIP Co de Phone Number [facility] [address] [place] [address] * (ABNORMAL) POCT glucose meter (09/30/2024 8:49 PM EDT) POCT Glucose 138(H) 74 - 99 mg/dL 09/30/2024 8:50 PM EDT [facility] Comment:Accuracy of [...] Comment 09/30/2024 8:50 PM EDT [facility] Facialist ID Ashia Daniels 10/01/19 8:50 PM EDT [facility] Device ID [id number] 09/30/2024 8:50 PM EDT [facility] Specimen Type POC Capillary 09/30/2024 8:50 PM EDT [facility] Blood Capillary blood specimen / Unknown 09/30/2024 8:49 PM EDT 09/30/2024 8:50 PM EDT us Tana Wooten MD LAB POINT OF CA RE TEST DOCKED DEVICE UNSOLICITED RESULTS Final Result Performing Organization Address City/[facility]/[place] de Phone Number [facility] [address] [place] [address] * (ABNORMAL) Hemoglobin A1c (09/30/2024 4:50 PM EDT) Hemoglobin A1c 6.3(H) <5.7 % 10/01/2024 12:06 PM EDT [facility] Blood Venous blood specimen / Unknown Venipuncture / Unknown 09/30/2024 4:50 PM EDT 09/30/2024 4:54 PM EDT Narrative [facility] - 10/01/2024 12:06 PM EDT HA1C Interpretive Data: Diagnosis of Diabetes: Diabetic > or = 6.5% Pre-diabetic 5.7 to 6.4% Non-diabetic < or = 5.6% Glycemic Targets for Type I and Type II Diabetics: Non- Adults <7.0% Adults <6.0% Children and Adolescents <7.5% Source: [place] [employer]. Standards of medical care in diabetes,2017. Diabetes Care.2017:40 (suppl 1):S1-S135. us Lala Valdes APRN LAB BLOOD ORDERABLES Final Re sult Performing Organization Address City/[facility] Co de Phone Number [facility] [address] [place] [address] * (ABNORMAL) Iron & Total Iron Binding Capacity, Plasma (Includes Transferrin) (09/30/2024 4:50 PM EDT) [facility] Iron, Plasma 66 50 - 170 ug/dL 09/30/2024 11:58 PM EDT [facility] Transferrin, Plasma 117(L) 200 - 360 mg/dL 09/30/2024 11:58 PM EDT [facility] Total Iron Binding Capacity, Plasma 146(L) 240 - 450 ug/mL 09/30/2024 11:58 PM EDT [facility] Transferrin Saturation 45 14 - 50 % 09/30/2024 11:58 PM EDT [facility] Blood Venous blood specimen / Unknown Venipuncture / Unknown 09/30/2024 4:50 PM EDT 09/30/2024 4:53 PM EDT us Lala Valdes APRN LAB BLOOD ORDERABLES Final Re sult Performing Organization Address [facility] Co de Phone Number [facility] [address] [place] [address] * TSH Reflex FT4 (09/30/2024 4:50 PM EDT) [facility] Thyroid Stimulating Hormone, Plasma 0.91 0.40 - 4.20 uIU/mL 09/30/2024 9:27 PM EDT [facility] Blood Venous blood specimen / Unknown Venipuncture / Unknown 09/30/2024 4:50 PM EDT 09/30/2024 4:53 PM EDT Lala Valdes APRN LAB BLOOD ORDERABLES Final Re sult Performing Organization Address [facility] Co de Phone Number [facility] [address] [place] [address] * (ABNORMAL) C-Reactive protein (09/30/2024 4:50 PM EDT) [facility] CRP, Plasma 16.1(H) <=8.0 mg/L 09/30/2024 5:14 [...] Re sult Performing Organization Address City/[facility]/ZIP Co de Phone Number [facility] [address] [place] [address] * Phosphorus (09/30/2024 4:50 PM EDT) Phosphorus, Plasma 3.3 2.5 - 4.5 mg/dL 09/30/2024 5:14 PM EDT [facility] Blood Venous blood specimen / Unknown Venipuncture / Unknown 09/30/2024 4:50 PM EDT 09/30/2024 4:53 PM EDT us Lesvia Adrian MD LAB BLOOD ORDERABLES Final Re sult Performing Organization Address [facility] Co de Phone Number [facility] [address] [place] [address] * (ABNORMAL) Magnesium (09/30/2024 4:50 PM EDT) Magnesium, Plasma 1.7(L) 1.9 - 2.4 mg/dL 09/30/2024 5:14 PM EDT [facility] Blood Venous blood specimen / Unknown Venipuncture / Unknown 09/30/2024 4:50 PM EDT 09/30/2024 4:53 PM EDT us Lesvia Adrian MD LAB BLOOD ORDERABLES Final Re sult Performing Organization Address City/[facility]/ZIP Co de Phone Number [facility] [address] [place] [address] * (ABNORMAL) CMP (09/30/2024 4:50 PM EDT) [facility] Glucose, Plasma 185(H) 74 - 99 mg/dL 09/30/2024 5:14 PM EDT [facility] BUN, Plasma 29(H) 8 - 23 mg/dL 09/30/2024 5:14 PM EDT [facility] Creatinine, Plasma 7.58(H) 0.70 - 1.20 mg/dL 09/30/2024 5:14 PM EDT [facility] BUN/Creatinine Ratio 4 09/30/2024 5:14 PM EDT [facility] Sodium, Plasma 131(L) 136 - 145 mmol/L 09/30/2024 5:14 PM EDT [facility] Potassium, Plasma 3.0(L) 3.6 - 4.9 mmol/L 09/30/2024 5:14 PM EDT [facility] Chloride, Plasma 90(L) 97 - 107 mmol/L 09/30/2024 5:14 PM EDT [facility] CO2, Plasma 28 22 - 29 mmol/L 09/30/2024 5:14 PM EDT [facility] Anion Gap 13 6 - 16 mmol/L 09/30/2024 5:14 PM EDT [facility] Total Calcium, Plasma 7.6(L) 8.9 - 10.2 mg/dL 09/30/2024 5:14 PM EDT [facility] Total Protein 7.2 6.3 - 7.9 g/dL 09/30/2024 5:14 PM EDT [facility] Albumin, Plasma 3.7 3.5 - 5.2 g/dL 09/30/2024 5:14 PM EDT [facility] AST, Plasma 13 10 - 50 U/L 09/30/2024 5:14 PM EDT [facility] ALT, Plasma 6(L) 10 - 50 U/L 09/30/2024 5:14 PM EDT [facility] Alkaline Phosphatase, Plasma 42 40 - 115 U/L 09/30/2024 5:14 PM EDT [facility] Total Bilirubin, Plasma 0.6 0.2 - 1.1 mg/dL 09/30/2024 5:14 PM EDT [facility] eGFRcr 7.3 mL/min/1.7 3m*2 09/30/2024 5:14 PM EDT [facility] Comment:Reported eGFRcr in m L/min/1.73m2 is based the CKD-EPI 2020 equation that does not use a race coefficient. Blood Venous blood specimen / Unknown Venipuncture / Unknown 09/30/2024 4:50 PM EDT 09/30/2024 4:53 PM EDT us Lesvia Adrian MD LAB BLOOD ORDERABLES Final Re sult [facility] [address] [place] [address] * (ABNORMAL) CBC w/diff (09/30/2024 4:50 PM EDT) WBC Count 8.92 3.70 - 10.30 10*3/uL LAB HEMATOLOGY METHOD 09/30/2024 4:56 PM EDT [facility] RBC Count 3.29(L) 4.60 - 6.10 10*6/uL LAB HEMATOLOGY METHOD 09/30/2024 4:56 PM EDT [facility] HGB 10.4(L) 13.7 - 17.5 g/dL LAB HEMATOLOGY METHOD 09/30/2024 4:56 PM EDT [facility] HCT 29.8(L) 40.0 - 51.0 % LAB HEMATOLOGY METHOD 09/30/2024 4:56 PM EDT [facility] Platelet Count 121(L) 155 - 369 10*3/uL LAB HEMATOLOGY METHOD 09/30/2024 4:56 PM EDT [facility] MCV 91 79 - 98 fL LAB HEMATOLOGY METHOD 09/30/2024 4:56 PM EDT [facility] MCH 31.6 26.0 - 32.0 pg LAB HEMATOLOGY METHOD 09/30/2024 4:56 PM EDT [facility] MCHC 34.9 30.7 - 35.5 g/dL LAB HEMATOLOGY METHOD 09/30/2024 4:56 PM EDT [facility] RDW 12.5 11.5 - 14.5 % LAB HEMATOLOGY METHOD 09/30/2024 4:56 PM EDT [facility] MPV 9.6 8.8 - 12.5 fL LAB HEMATOLOGY METHOD 09/30/2024 4:56 PM EDT [facility] nRBC 0.0 <=0.0 per 100 WBCs LAB HEMATOLOGY METHOD 09/30/2024 4:56 PM EDT [facility] Differential Type Automated LAB HEMATOLOGY METHOD 09/30/2024 4:56 PM EDT [facility] Neutrophils % 61 % LAB HEMATOLOGY METHOD 09/30/2024 4:56 PM EDT [facility] Lymphocytes % 27 % LAB HEMATOLOGY METHOD 09/30/2024 4:56 PM EDT [facility] Monocytes % 8 % LAB HEMATOLOGY METHOD 09/30/2024 4:56 PM EDT [facility] Eosinophils % 3 % LAB HEMATOLOGY METHOD 09/30/2024 4:56 PM EDT [facility] Basophils % 1 % LAB HEMATOLOGY METHOD 09/30/2024 4:56 PM EDT [facility] Immature Granulocytes % 0 % LAB HEMATOLOGY METHOD 09/30/2024 4:56 PM EDT [facility] Neutrophils Absolute 5.48 1.60 - 6.10 10*3/uL LAB HEMATOLOGY METHOD 09/30/2024 4:56 PM EDT [facility] Lymphocytes Absolute 2.36 1.20 - 3.90 10*3/uL LAB HEMATOLOGY METHOD 09/30/2024 4:56 PM EDT [facility] Monocytes Absolute 0.69 0.30 - 0.90 10*3/uL LAB HEMATOLOGY METHOD 09/30/2024 4:56 PM EDT [facility] Eosinophils Absolute 0.28 0.00 - 0.50 10*3/uL LAB HEMATOLOGY METHOD 09/30/2024 4:56 PM EDT [facility] Basophils Absolute 0.07 0.00 - 0.10 10*3/uL LAB HEMATOLOGY METHOD 09/30/2024 4:56 PM EDT [facility] Immature Granulocytes Absolute 0.04 0.00 - 0.06 10*3/uL LAB HEMATOLOGY METHOD 09/30/2024 4:56 PM EDT [facility] Blood Venous blood specimen / Unknown Venipuncture / Unknown 09/30/2024 4:50 PM EDT 09/30/2024 4:[address] [facility] - 09/30/2024 4:56 PM EDT Therapeutic decision making should be based on absolute values, rather than percentages. us Lesvia Adrian MD LAB BLOOD ORDERABLES Final Re sult [facility] [address] [place] [address] * EKG now - STAT (adult) (09/30/2024 4:09 PM EDT) EKG DIAGNOSIS CLASS Abnormal MUSE ECG Ventricular Rate 70 BPM MUSE ECG Atrial Rate 70 BPM MUSE ECG [place] Interval 154 ms MUSE ECG QRSD Interval 106 ms MUSE ECG QT Interval 430 ms MUSE ECG QTC Interval 464 ms MUSE ECG P [place] 69 degrees MUSE ECG R [place] -23 degrees MUSE ECG T Wave [place] 5 degrees MUSE ECG Diagnosis Normal sinus rhythm MUSE ECG Diagnosis Nonspecific T wave abnormality MUSE ECG Diagnosis Abnormal ECG MUSE ECG Diagnosis MUSE ECG Diagnosis Confirmed by Sb Cole ([id number]) on 09/30/2024 5:32:21 PM MUSE ECG 09/30/2024 4:09 PM EDT 09/30/2024 5:32 PM EDT us Lesvia Adrian MD ECG ORDERABLES Final Result MUSE ECG documented in this encounter Visit Diagnoses Diagnosis Declining functional status- Primary ESRD (end stage renal disease) End stage renal disease Noncompliance by refusing service ESRD (end stage renal disease) on dialysis ([facility]) End stage renal disease Declining functional status At high risk for falls ESRD (end stage renal disease) on dialysis (CMS/HCC) End stage renal disease Electrolyte and fluid disorder Electrolyte and fluid disorders not elsewhere classified Chronic kidney disease-mineral and bone disorder (CKD-MBD) Anemia in chronic kidney disease (CODE) Type 2 diabetes mellitus with chronic kidney disease on chronic dialysis Dementia ([facility]) Other persistent mental disorders due to conditions classified elsewhere Mild intellectual disabilities Anxiety and depression Insomnia, unspecified Essential (primary) hypertension Unspecified essential hypertension Arterial insufficiency Stricture of artery Mixed hyperlipidemia 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 Gastroesophageal reflux disease without esophagitis Esophageal reflux Sensorineural hearing loss, bilateral Wears hearing aid in both ears Chronic combined systolic (congestive) and diastolic (congestive) heart failure Chronic hepatitis C without hepatic coma History of transmetatarsal amputation of foot (CMS/HCC) ESRD (end stage renal disease) End stage renal disease documented in this encounter Admitting Diagnoses Diagnosis ESRD (end stage renal disease) End stage renal disease documented in this [...] 08 (Given - Provider: Marilee Zamora RN) 09 (Given - Provider: April Merida, TRISTIN) 140 (Given - Provider: Jane Dill) atorvastatin (Lipitor) [...] Zamora RN) 1259 (Given - Provider: April Merida, TRISTIN [...] Garnett, TRISTIN) 09 (Given - Provider: April Merida, TRISTIN)2052 (Given - Provider: Deena Lott) 0900 (Canceled Entry - Provider: Automatic Discharge Provider - Comment: Automatically canceled at discontinue of medication order) clopidogrel (Plavix) tablet 75 mg 75 mg, Oral, Daily, First dose on Mon10/01/24 at 0900, Until Discontinued, Routine 0820 (Given - Provider: Marilee Zamora RN) 09 (Given - Provider: April Merida, RN) 1409 (Given - Provider: Jane Dill) divalproex sprinkle (Depakote Sprinkle) DR capsule 250 mg 250 mg, Oral, 2 times daily, First dose on Mon09/30/24 at 2230, Until Discontinued, Routine 0820 (Given - Provider: Marilee Zamora, TRISTIN)2013 (Given - Provider: Sara Garnett, TRISTIN) 919 (Given - Provider: April Merida, TRISTIN)2052 (Given [...] TRISTIN) 2052 (Given - Provider: Deena Lott) NIFEdipine XL (Procardia XL) 24 hr tablet 60 mg 60 mg, Oral, Daily, First dose (after last modification) on Mon10/07/24 at 0900, Until Discontinued, Routine 0820 (Given - Provider: Marilee Zamora, TRISTIN) 09 (Given - Provider: April Merida, TRISTIN) 0900 [...] Marilee Zamora, TRISTIN)2013 (Given - Provider: Sara Garnett, TRISTIN) 0920 (Given - Provider: April Merida, TRISTIN)2052 [...] IV access)1919 (Not Given - Provider: Sara Garnett RN - Reason: Order parameters not met) 0725 (Not Given - Provider: April Merida, TRISTIN - Reason: Loss of IV access)1845 (Not Given - Provider: April Merida, TRISTIN - Reason: Loss of IV access) 0742 (Canceled Entry - Provider: Jane Dill) traZODone (Desyrel) tablet 100 mg 100 mg, Oral, Nightly, First dose on Mon09/30/24 at 2230, Until Discontinued, Routine 2013 (Given - Provider: Sara Garnett RN) 2052 (Given - Provider: Denea Lott) PRN Medication Order 10/19/2024 10/20/2024 10/21/2024 [...] Until Mon10/21/24 at 1711, Routine, line care Linked Groups Order Group [...] Until Mon10/21/24 at 1711, Routine, line care Group 2: glucose (Glutose) [...] documented as of this encounter Care Teams Sky [employer] Yard[employer] Relationship Specialty Start Date End Date Leonard Botello MD [id number] [id number] PCP - General Family Medicine 06/08/22 Minnie Penn, RN [facility] Registered Nurse 10/01/24 10/01/24 documented as of this encounter
--- OUTSIDE RECORDS SUMMARY | 2024-11-07 12:20 | XMS_ITS | Encounter Summary ---
Author Organization Healthcare Address [address] [place] [address] Care Team Providers Care Anesthesiology Resident Name Role Phone Leonard Botello MD Primary Care Provider [phone] Reason for Referral * Imaging (Routine) - Closed Specialty Diagnoses / Procedures Referred By Kathleen herrera Referred To Contact Radiology Diagnoses ESRD (end stage renal disease) Unspecified complication of cardiac and vascular prosthetic device, implant and graft, subsequent encounter Procedures IR Angiogram ArterioVenous Shunt Fernanda Singleton MD [address] [address] Phone: tel: fax: Referral ID Status Reason Start Date Expiration Date Visits Re quested Visits Authorized [id number] Closed 11/04/2024 05/06/2026 1 1 Reason for Visit * Imaging (Routine) - Closed Specialty Diagnoses / Procedures Referred By Kathleen herrera Referred To Contact Radiology Diagnoses ESRD (end stage renal disease) Unspecified complication of cardiac and vascular prosthetic device, implant and graft, subsequent encounter Procedures IR Angiogram ArterioVenous Shunt eFrnanda Singleton MD [address] [facility] [address] [place] [address] Phone: tel: fax: Referral ID Status Reason Start Date Expiration Date Visits Re quested Visits Authorized [id number] Closed 11/04/2024 05/06/2026 1 1 Encounter Details Date Type Department Care Team (Latest Contact Info) Description 11/07/2024 12:20 PM EDT - 11/07/2024 11:59 PM EDT Hospital Encounter [facility] Interventional Radiology [address] [place] [address] Arturo Ramos, RN MICU 9-T1 AND T2 ESRD (end stage renal disease) (CMS/HCC); Unspecified complication of cardiac and vascular prosthetic [...] drink first t hossein in the morning (EYE-ANESTHESIOLOGIST ASSISTANT CERTIFIED) to steady your nerves or to get [...] 09/29/2021 3:17 PM EDT Mario Kim documented as of this encounter Mental Status [...] reached for any questions or concerns. * [facility] - Arturo Ramos RN - 11/07/2024 3:37 [...] fistulogram? ? A nurse and an interventional radiologist/mission systems engineer (a doctor specially trained to perform this [...] Right Subclavian Stenosis s/p POBA and DCB HEAD START DIRECTOR, Moderate Venous Anastomosis Stenosis s/p POBA, Moderate [...] Diagnoses of ESRD (end stage renal disease) (CMS/HCC) and Unspecified complication of cardiac and vascular [...] been discussed with the patient and/or their premium service representative. All questions answered and they agree [...] 0.9 % infusion 10 mL/hr Intravenous Continuous Oo, Fernanda P, MD Facility-Administered Medications Ordered in Other Encounters Medication Dose Route Frequency Provider Last Rate Last Admin lidocaine-EPINEPHrine (PF) (Xylocaine W/EPI) 1 %-1:895645 injection - Pyxis Override Pull lidocaine-EPINEPHrine (PF) (Xylocaine W/EPI) 1 %-1:251816 injection - Pyxis Override Pull * H&P - eFrnanda Singleton MD - 11/07/2024 1:15 PM EDT [...] & Plan ESRD (end stage renal disease) ([facility]) Unspecified complication of cardiac and vascular prosthetic [...] Last Admin lidocaine-EPINEPHrine (PF) (Xylocaine W/EPI) 1 %-1:500117 injection - Pyxis Override Pull lidocaine-EPINEPHrine (PF) (Xylocaine W/EPI) 1 %-1:219238 injection - Pyxis Override Pull documented in this encounter Plan of Treatment Not on file documented as of this encounter Procedures Procedure Name Priority Date/Time Associated Diagnosis Comments IR ANGIOGRAM ARTERIOVENOUS SHUNT Routine 11/07/2024 3:02 PM EDT ESRD (end stage renal disease) ([facility]) Unspecified complication of cardiac and vascular prosthetic [...] Ax-Ax Loop AVG, C/O Prolonged Bleeding. TECHNIQUE: Controls Project Engineer: Fernanda Singleton M.D Fluoroscopy time: 3.4 min, Air Kerma 8 mGy. Medications: 1% Local lidocaine was administered subcutaneously. Conscious sedation with IV Midazolam 1mg and IV Fentanyl 50 mcg were provided. Continuous physiologic monitoring provided by a qualified healthcare professional. Duration of Conscious Sedation: Time out: 14:31 close out: 14:50. Procedure: Right Ax-Ax Loop AVG Graftogram POBA and DCB HEAD START DIRECTOR of Severe Right Subclavian Vein Stenosis POBA [...] over a guide wire for a 4 Venezuelan micropuncture sheath. An angiogram was performed from the site of puncture to the superior vena cava. Digital subtraction angiography was performed of the graft from peripheral to central. This revealed Severe Right Subclavian Stenosis Moderate Venous Anastomosis Stenosis Moderate Cannulation Zone Stenosis The micropuncture sheath was exchanged for a 7 Venezuelan vascular sheath. Via the sheath, A stiff glide 0.035 180 cm wire was placed centrally through a 5 Venezuelan glide catheter. Angioplasty of the right subclavian [...] angioplastied with 8 mm x 80 mm Mobile angioplasty balloon with good response. Digital subtraction [...] RUE Ax-Ax Loop AVG, C/O ProlongedBleeding. TECHNIQUE: Controls Project Engineer: Fernanda Singleton M.D Fluoroscopy time: 3.4 min, Air Kerma 8 mGy. Medications: 1% Local lidocaine was administered subcutaneously.Conscious sedation with IV Midazolam 1mg and IV Fentanyl 50 mcg wereprovided. Continuous physiologic monitoring provided by a qualifiedhealthcare professional. Duration of Conscious Sedation: Time out: 14:31 close out: 14:50. Procedure: Right Ax-Ax Loop AVG Graftogram POBA and DCB HEAD START DIRECTOR of Severe Right Subclavian Vein Stenosis POBA [...] micropuncture sheath was exchanged for a 7 Venezuelan vascular sheath. Viathe sheath, A stiff glide 0.035 180 cm wire was placed centrally through a5 Venezuelan glide catheter. Angioplasty of the right subclavian [...] stage renal disease) End stage renal disease Unspecified complication of [...] documented as of this encounter Care Teams Anesthesiology Resident Relationship Specialty Start Date End Date Leonard Botello MD [address] [address] PCP - General Family Medicine 06/08/22 documented as of this encounter
--- NOTE | 2024-12-19 14:30 | CA_ITS ---
APPROVED REPORT EXAM: Comprehensive 2D, Doppler, and color-flow Echocardiogram Farmworker Grain: Inna Eden RVT Ht: 5 ft 5 in Wt: 180lbs BSA: 1.89 BP: 102/80 mmHg Indications: ABNORMAL EKG,PRE-OP 2D Dimensions LA Volume 52.70 mL LA Volume Index 27.88 mL/m2 (M/F) 16-34 M-Mode Dimensions RVDd 2.50 cm (0.9-2.6) LA Diam 2.80 cm (1.9-4.0) LVDd 5.94 cm (3.5-5.7) LVDs 4.15 cm (3.5-5.7) IVSd 0.61 cm (0.6-1.1) PWd 0.97 cm (0.6-1.1) EF (Teich) 56.60% FS 30.10% EDV (Teich) 175.90 mL TAPSE 2.29 (<1.7) ESV (Teich) 76.40 mL LV Diastology E Decel Time 237 (160-240 msec) E/A Ratio 1.1 Aortic Valve IRAIDA Index 1.40 cm2/m2 AoV Peak Freddie. 112.0 (50-130 cm/s) AO Peak GR. 5.00 mmHg AO Mean GR. 2.90 (<5 mmHg) AO VTI 25.2 (18-25 cm) IRAIDA (VTI) 2.72 (2.5-4.5 cm2) Mitral Valve MV E Max Freddie. 79.0 (40-130 cm/s) MV A Velocity 70.0 (40-130 cm/s) E/A Ratio 1.13 MV PHT 69.0 ms Pulmonary Valve PV Peak Velocity 54.0 (50-150 cm/s) Left Ventricle The left ventricle is normal size. Left ventricular systolic function is normal. The left ventricular ejection fraction is within the normal range. There is increased left ventricular wall thickness. There is normal LV segmental wall motion. Transmitral Doppler flow pattern suggests impaired LV relaxation. LVEF is 50-55% Right Ventricle The right ventricle is mildly dilated. The right ventricular systolic function is normal. Atria The left atrium is mildly dilated. The right atrium is mildly dilated. There is no color Doppler evidence of interatrial shunt. Aortic Valve The aortic valve is mildly thickened. There is no hemodynamically significant aortic valvular stenosis. Trace aortic regurgitation is present. Mitral Valve The mitral valve is normal in structure. No evidence of mitral valve stenosis. Trace mitral regurgitation is present. Tricuspid Valve The tricuspid valve leaflets are thin and pliable. Trace tricuspid regurgitation. There is insufficient TR jet to estimate RVSP. Pulmonic Valve The pulmonary valve is grossly normal in structure. Trace pulmonic valve regurgitation is present. Great Vessels The aortic root is normal in size. IVC is normal in size and collapses >50% with inspiration. Pericardium There is no pericardial effusion. Other Information Study Quality: Fair Conclusion Normal biventricular systolic function. Mild RV dilation. Mild biatrial dilation. No significant valvular stenosis or regurgitation. Electronically signed by : Le Dang MD 12/21/2024 23:39:45
--- OUTSIDE RECORDS SUMMARY | 2024-12-19 15:08 | XMS_ITS | Encounter Summary ---
Author Organization Healthcare Address [address] [place] [address] Care Team Providers Care Recoil Spring Winder Name Role Phone Pcp, No Primary Care Provider UnavailRanjana Castellanos FUNERAL PLANNER Unavailable UnavailYola Bains Unavailable Unavailable Leonard Botello MD Primary Care Provider [phone] Yesenia Morrell FUNERAL PLANNER Unavailable Unavailable Goldie Alan FUNERAL PLANNER Unavailable UnavailGoldie Kong FUNERAL PLANNER Unavailable UnavailRanjana Castellanos FUNERAL PLANNER Unavailable UnavailMinnie Martinez RN Unavailable Unavailab le Encounter Details Date Type Department Care Team (Late st Contact Info) Description 04/04/2022 Lab Requisition [facility] [address] [place] [address] Ariel Lucas MD [address] [place] [address] End stage renal disease (CMS/HCC) [...] - 99 mg/dL 04/04/2022 2:29 PM EST [facility] BUN, Plasma 24(H) 8 - 23 mg/dL 04/04/2022 2:29 PM EST [facility] Creatinine, Plasma 5.86(H) 0.80 - 1.30 mg/dL 04/04/2022 2:29 PM [facility] BUN/Creatinine Ratio 4 04/04/2022 2:29 PM [facility] Sodium, Plasma 137 136 - 145 mmol/L 04/04/2022 2:29 PM [facility] Potassium, Plasma 3.8 3.7 - 4.8 mmol/L 04/04/2022 2:29 PM [facility] Comment:Reference range for Serum potassium is 0.2 to 0.5 mmol/L higher than Plasma range. Chloride, Plasma 100 97 - 107 mmol/L 04/04/2022 2:29 PM [facility] CO2, Plasma 25 22 - 29 mmol/L 04/04/2022 2:29 PM [facility] Anion Gap 12 6 - 16 mmol/L 04/04/2022 2:29 PM [facility] Total Calcium, Plasma 8.8(L) 8.9 - 10.2 mg/dL 04/04/2022 2:29 PM [facility] Total Protein 7.9 6.3 - 7.9 g/dL 04/04/2022 2:29 PM [facility] Albumin, Plasma 3.4(L) 3.5 - 5.2 g/dL 04/04/2022 2:29 PM [facility] AST, Plasma 20 19 - 48 U/L 04/04/2022 2:29 PM [facility] ALT, Plasma <5(L) 11 - 41 U/L 04/04/2022 2:29 PM [facility] Alkaline Phosphatase, Plasma 72 40 - 115 U/L 04/04/2022 2:29 PM [facility] Total Bilirubin, Plasma 0.4 0.2 - 1.1 mg/dL 04/04/2022 2:29 PM [facility] eGFRcr 10.1 mL/min/1.7 3m*2 04/04/2022 2:29 PM [facility] Comment: Reported eGFRcr in mL/min/1.73m2 is based the CKD-EPI 2021 equation that does not use a race coefficient. Effective 10/13/21 our laboratory changed the eGFR calculation to the CKD-EPI 2021 equation from the previously reported eGFR, based on the MDRD equation. 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 COVID-19 Rule-Out 04/14/2023 04/14/2023 04/14/2023 8:45 PM EST documented as of this encounter Care Teams Recoil Spring Winder Relationship Specialty Start Date End Date Pcp, No [address] [place] [address] PCP - General Family Medicine 09/16/21 06/07/22 Leonard Botello MD 2[address] [facility] [address] [place] [address] PCP - General Family Medicine 06/08/22 Ranjana Elias LPN VALUE-[place] [address] TCM Nurse 03/25/22 04/18/22 [place] [address] Delivery Director Geoscience Specialist 04/12/22 05/05/22 Yesenia Morrell LPN VALUE[employer] [address] TCM Nurse 07/29/22 08/04/22 Goldie Alan LPN VALUE-BASED TRANSFORMATION PROGRAM TCM Nurse Internal Medicine 08/10/22 08/11/22 Goldie Alan LPN VALUE-BASED TRANSFORMATION PROGRAM TCM Nurse Internal Medicine 08/17/22 09/16/22 Ranjana Elias LPN VALUE[employer] [address] TCM Nurse 01/13/23 02/08/23 Minnie Penn, RN CH-VASCULAR & INTERVENTIONAL RADIOLOGY Registered Nurse 10/01/24 10/01/24 documented as of this encounter
--- OUTSIDE RECORDS SUMMARY | 2024-12-19 15:08 | XMS_ITS | Encounter Summary ---
Author Organization Healthcare Address [address] [place] [address] Care Team Providers Care Precision Assembler Bench Name Role Phone Pcp, No Primary Care Provider UnavailUrvashi Morocho RN CARDIOVASCULAR ICU Unavailable Unavailable Ranjana Elias RN CARDIOVASCULAR ICU Unavailable UnavailYola Bains Unavailable Unavailable Leonard Botello MD Primary Care Provider [phone] Yesenia Morrell RN CARDIOVASCULAR ICU Unavailable Unavailable Goldie Alan RN CARDIOVASCULAR ICU Unavailable Unavailabl Goldie Mccauley RN CARDIOVASCULAR ICU Unavailable Unavailabl Ranjana Billy S RN CARDIOVASCULAR ICU Unavailable UnavailMinnie Martinez RN Unavailable Unavailab le Encounter Details Date Type Department Care Team (Late st Contact Info) Description 07/29/2020 [facility] Encounter Historical OTTR [address] [place] [address] Rose Vázquez, SHEETMETAL WORKER [address] [facility] [address] [place] [phone] Social History Tobacco Use Types Packs/Day Years Used Date Smoking Tobacco: Never Assessed Sex and Gender Information Value Date Recorded Sex Assigned at Male 03/02/2022 1:43 PM EST Legal Sex Male 8:21 PM EDT Gender Identity Male 03/02/2022 1:43 PM EST Sexual Orientation Straight 03/02/2022 1: 43 PM EST documented as of this encounter Miscellaneous Notes * Progress Notes - Rose Vázquez, EVICTION SPECIALIST - 07/29/2020 3:29 PM EDT ICE: 59 yo CM w/ ESRD 2/2 DM/ HTN, began HD maybe in 2015 PMH: End-stage renal disease Diabetes mellitus Hypertension Cognitive developmental delay Congestive heart failure Hepatitis-C History of COVID pneumonia Neuropathy PSH: Left AV fistula Bilateral TMA Ear surgery Family history: unknown Social history: He is single, lives in a family shelter with a paid caregiver. 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 When I asked him what he understands [...] understanding of all. Updated APM, SCM, OTTR, [place], and [address] calendar. Mailed updated 07/22/20 ICE ppw to pt and cc'd referring MD and dialysis center. * Progress Notes - Shasta Stout - 06/10/2020 9:53 AM EDT Received VM from Sharon Cherelle stating she wrote down incorrect appt info and just realized pt has appt today. She asked for call back at [phone] to r/s pt's appt. Called her back/ No answer, LVMasking for return call to discuss r/s'ing pt's appt. Notified [facility] via Teams message. * Progress Notes - Shasta Stout - 05/20/2020 2:14 PM EST Received kidney txp referral. Called pt and spoke w/ his repossessor (Sharon Villarreal). Verified pt's address and dialysis. [...] documented as of this encounter Care Teams Precision Assembler Bench Relationship Specialty Start Date End Date Pcp, No [address] [place] [address] PCP - General Family Medicine 09/16/21 06/07/22 Leonard Botello MD 2[address] [facility] [address] [place] [address] PCP - General Family Medicine 06/08/22 Urvashi Del Cid LPN VALUE-[place] [place] [address] TCM Nurse 09/30/21 10/29/21 Ranjana Elias LPN VALUE-[place] [address] TCM Nurse 03/25/22 04/18/22 [place] [address] Settlement Technician Supervisor Braiding 04/12/22 05/05/22 Yesenia Morrell LPN VALUE-[place] [address] TCM Nurse 07/29/22 08/04/22 Goldie Alan LPN VALUE-BASED TRANSFORMATION PROGRAM TCM Nurse Internal Medicine 08/10/22 08/11/22 Goldie Alan LPN VALUE-BASED TRANSFORMATION PROGRAM TCM Nurse Internal Medicine 08/17/22 09/16/22 Ranjana Elias LPN VALUE[employer] [address] TCM Nurse 01/13/23 02/08/23 Minnie Penn, RN CH-VASCULAR & INTERVENTIONAL RADIOLOGY Registered Nurse 10/01/24 10/01/24 documented as of this encounter
--- OUTSIDE RECORDS SUMMARY | 2024-12-19 15:08 | XMS_ITS | Encounter Summary ---
Author Organization Healthcare Address [address] [place] [address] Care Team Providers Care Manager Of Regulatory Affairs Name Role Phone Leonard Botello MD Primary Care Provider [phone] Encounter Details Date Type Department Care Team [...] any time in the past 12 m [facility], were you homeless or living in [...] drink first t hossein in the morning (EYE-EXPELLER WORKER) to steady your nerves or to get rid of a hangover? 0 06/25/2023 CAGE Questionnaire Score 0 024 Utilities Answer Date Recorded In the past 12 months has th e [employer] gas, oil, or water company threatened to [...] as of this encounter Care Teams Manager Of Regulatory Affairs Relationship Specialty Start Date End Date Leonard Botello MD [address] [place] [address] [address] PCP - General Family Medicine 06/08/22 documented as of this encounter
--- OUTSIDE RECORDS SUMMARY | 2024-12-19 15:08 | XMS_ITS | Encounter Summary ---
Author Organization Healthcare Address [address] [place] [address] Care Team Providers Care Sprinkling System Installer Name Role Phone Leonard Botello MD Primary Care Provider [phone] Encounter Details Date Type Department Care Team [...] were you homeless or living in a custodial (including now)? 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-SPORTS PHYSICAL THERAPIST) to steady your nerves or to get rid of a hangover? 0 06/25/2023 CAGE Questionnaire Score 0 024 Utilities Answer Date Recorded In the past 12 months has th e [employer], gas, oil, or water company threatened to [...] documented as of this encounter Care Teams Sprinkling System Installer Relationship Specialty Start Date End Date Leonard Botello MD [address] [facility] 125 [place] [address] PCP - General Family Medicine 06/08/22 documented as of this encounter
--- OUTSIDE RECORDS SUMMARY | 2024-12-19 15:08 | XMS_ITS | Clinical Summary ---
Author Organization Healthcare Address [address] [place] [address] Care Team Providers Care Expanded Function Dental Assistant Name Role Phone Leonard Botello MD Primary Care Provider [phone] Allergies No known active allergies Medications * [...] (10/01/2024 6:37 AM EDT): - Transferred to [facility] a week ago and since arrival refusing HD, to eat, participate, or take medications - sent to ED for medical evaluation and need for higher level of assist/unable to care for self/non-compliance - afebrile, VSS, no acute complaints PLAN - PT/OT consult re: placement - legal guardian is his brother, Chris Dooley, #[phone] Chronic osteomyelitis 12/20/2022 BPH (benign prostatic hyperplasia) [...] to caregiver to go with patient to [facility] asset card clerk for notary obtaining pass. Sensorineural hearing [...] 10/01/2024 Primary hypertension 08/27/2023 024 Chronic kidney disease-kalsominer al and bone disorder 06/07/2023 08/31/2023 Anemia [...] evaluation and treatment for inpatient services at [facility] -patient will be contacted pertaining on when to arrive to [facility] for evaluation -Caregiver spoke with celso Ruff ([facility] social [facility]) and was instructed to contact [facility] social services for any further questions -Education provided that [...] (02/28/2022): Added automatically from request for surgery [id number] Non-compliance 12/24/2021 10/01/2024 Aches 12/22/2021 09/30/2024 Assessment [...] Encounter [facility] Interventional Radiology [address] [place] [address] Arturo Ramos, RN ESRD (end stage renal disease) ([facility]); Unspecified complication of cardiac and vascular prosthetic device, implant and graft, subsequent encounter Discharge Disposition: Home or Self Care 11/07/2024 Travel 10/21/2024 Travel 10/18/2024 Travel 10/17/2024 Travel 10/16/2024 Travel 10/15/2024 Travel 10/14/2024 Travel 10/11/2024 Travel 10/09/2024 Travel 10/07/2024 Travel 10/04/2024 Travel 10/02/2024 Patient Outreach [facility] Medicine Specialties [address] [place] [id number] Enoc Bustillo Chandana 10/02/2024 Travel 10/01/2024 Patient Outreach [facility] [address], [address] [place] [address] Minnie Penn, RN Link 09/30/2024 3:29 PM EDT - 10/21/2024 3:10 PM EDT Hospital Encounter [facility] Inpatient [address] [place] [address] Lesvia Hudson MD Khalid, MD Warren Pedersen Elizabeth, MD Kidwai, MD Tori Mendieta Padmaja, MD ESRD (end stage renal disease) (CMS/HCC) (Primary Dx); Noncompliance by refusing service; ESRD (end stage renal disease) on dialysis (CMS/[facility]); Declining functional status Discharge Disposition: Care Home Facility 09/30/2024 Travel from Last 3 Months [...] drink first t hossein in the morning (EYE-PRODUCTION CLOTH CUTTER) to steady your nerves or to get [...] 08/22/2014 03/24/2014, 02/10/2014 [facility]-Depression Screening 09/14/2023 09/13/2022 [id number] Vaccine (5 - season) 2024 01/03/2022, 04/07/2021, [...] this topic Medical Devices Implanted Type Area Aircraft Mechanic Device Identifier Shelf Expiration Date Model / Serial / Lot Graft Flixene Grd Wall Gds [id number] - [id number] - [id number] Implanted:Qty: 1 on 07/27/2022 by Aravind Gomez MD at [facility] Graft Right: Arm Getinge [id number] 02/02/2025 [id number] / [id number] / Stent Endoprosthesis Viabahn 8fr [id number] - [id number] Implanted:Qty: 1 on 10/07/2021 by Deven Roldan MD at [facility] [employer]-[id number] 4 06/05/2024 [id number] / [id number] / [id number] Procedures Procedure Name Priority Date/Time Associated Diagnosis Comments IR ANGIOGRAM ARTERIOVENOUS SHUNT Routine 11/07/2024 3:02 PM EDT ESRD (end stage renal disease) (CMS/[facility]) Unspecified complication of cardiac and vascular prosthetic [...] ESRD (end stage renal disease) on dialysis ([facility]) POCT GLUCOSE METER UNSOLICITED RESULTS Routine 10/17/2024 [...] ESRD (end stage renal disease) on dialysis ([facility]) HEMODIALYSIS INPATIENT Routine 10/16/2024 8:41 AM EDT ESRD (end stage renal disease) on dialysis ([facility]) POCT GLUCOSE METER UNSOLICITED RESULTS Routine 10/16/2024 [...] ESRD (end stage renal disease) on dialysis ([facility]) POCT GLUCOSE METER UNSOLICITED RESULTS Routine 10/11/2024 [...] ESRD (end stage renal disease) on dialysis ([facility]) POCT GLUCOSE METER UNSOLICITED RESULTS Routine 10/09/2024 [...] ESRD (end stage renal disease) on dialysis ([facility]) POCT GLUCOSE METER UNSOLICITED RESULTS Routine 10/07/2024 [...] ESRD (end stage renal disease) on dialysis ([facility]) POCT GLUCOSE METER UNSOLICITED RESULTS Routine 10/04/2024 [...] Ax-Ax Loop AVG, C/O Prolonged Bleeding. TECHNIQUE: Blood Tester Fowl: Fernanda Singleton M.D Fluoroscopy time: 3.4 min, Air Kerma 8 mGy. Medications: 1% Local lidocaine was administered subcutaneously. Conscious sedation with IV Midazolam 1mg and IV Fentanyl 50 mcg were provided. Continuous physiologic monitoring provided by a qualified healthcare professional. Duration of Conscious Sedation: Time out: 14:31 close out: 14:50. Procedure: Right Ax-Ax Loop AVG Graftogram POBA and DCB VP ANALYSIS of Severe Right Subclavian Vein Stenosis POBA [...] over a guide wire for a 4 Filipino micropuncture sheath. An angiogram was performed from the site of puncture to the superior vena cava. Digital subtraction angiography was performed of the graft from peripheral to central. This revealed Severe Right Subclavian Stenosis Moderate Venous Anastomosis Stenosis Moderate Cannulation Zone Stenosis The micropuncture sheath was exchanged for a 7 Filipino vascular sheath. Via the sheath, A stiff glide 0.035 180 cm wire was placed centrally through a 5 Filipino glide catheter. Angioplasty of the right subclavian [...] angioplastied with 8 mm x 80 mm Marblemount angioplasty balloon with good response. Digital subtraction [...] RUE Ax-Ax Loop AVG, C/O ProlongedBleeding. TECHNIQUE: Blood Tester Fowl: Fernanda Singleton M.D Fluoroscopy time: 3.4 min, Air Kerma 8 mGy. Medications: 1% Local lidocaine was administered subcutaneously.Conscious sedation with IV Midazolam 1mg and IV Fentanyl 50 mcg wereprovided. Continuous physiologic monitoring provided by a qualifiedhealthcare professional. Duration of Conscious Sedation: Time out: 14:31 close out: 14:50. Procedure: Right Ax-Ax Loop AVG Graftogram POBA and DCB VP ANALYSIS of Severe Right Subclavian Vein Stenosis POBA [...] micropuncture sheath was exchanged for a 7 Filipino vascular sheath. Viathe sheath, A stiff glide 0.035 180 cm wire was placed centrally through a5 Filipino glide catheter. Angioplasty of the right subclavian [...] - 99 mg/dL 10/21/2024 9:17 AM EDT [facility] Comment:Accuracy of a glucos e result [...] Comment 10/21/2024 9:17 AM EDT [facility] Floor Covering Printer ID Jane Dill 10/21/2024 9:17 AM EDT HEALTHCARE LAB Device ID [id number] 10/21/2024 9:17 AM EDT [facility]ALTH[facility]ARE LAB Specimen Type POC Capillary 10/21/2024 9:17 AM EDT [facility] Blood Capillary blood specimen / Unknown 10/21/2024 9:15 AM EDT 10/21/2024 9:17 AM EDT Jeannie Valle MD LAB POINT OF CARE TE ST DOCKED DEVICE UNSOLICITED RESULTS Final Result Performing Organization Address [facility] Co de Phone Number [facility] [address] [place] [address] * Hepatitis B Core Total Antibody IgG,IgM (10/17/2024 2:31 PM EDT) Hepatitis B Core Total Antibody IgG,IgM Negative Negative 10/17/2024 5:01 PM EDT [facility] Blood Venous blood specimen / Unknown Venipuncture / Unknown 10/17/2024 2:31 PM EDT 10/17/2024 2:35 PM EDT Jeannie Valle MD LAB BLOOD ORDERABLES Final Res ult Performing Organization Address City/[facility]/ZIP Co de Phone Number [facility] [address] [place] [address] * XR Chest 1 View (10/17/2024 2:11 PM EDT) Anatomical Region Laterality Modality Chest Digital Radiogra phy Impressions 10/17/2024 2:49 PM EDT No visualized airspace disease. CRITICAL RESULT: No. COMMUNICATION: Per this written report. Preliminary report signed by Seng Mratinez MD on 10/17/2024 2:39 PM By electronically [...] Left femoral fixation hardware. Procedure Note Ashley Srtong MD - 10/15/2024 CLINICAL INDICATION: Constipation TECHNIQUE: [...] MD on 10/15/2024 9:58 PM Lala Valdes JEWELRY CONSULTANT IMG XR PROCEDURES Final Resul t * (ABNORMAL) Hemoglobin and Hematocrit, Blood (10/09/2024 3:45 PM EDT) Pathologist [facility] HGB 8.2(L) 13.7 - 17.5 g/dL LAB HEMATOLOGY METHOD 10/09/2024 3:54 PM EDT [facility] HCT 23.7(L) 40.0 - 51.0 % LAB HEMATOLOGY METHOD 10/09/2024 3:54 PM EDT [facility] Blood Arterial blood specimen / Unknown Arterial Puncture / Unknown 10/09/2024 3:45 PM EDT 10/09/2024 3:52 PM EDT Daphne Landry JEWELRY CONSULTANT, DNP LAB BLOOD ORDERABLES Selene jacinto Result [facility] [address] [place] [address] * (ABNORMAL) Magnesium, Plasma (10/07/2024 2:48 AM EDT) Only the most recent of6 resultswithin the time period is included. Magnesium, Plasma 1.6(L) 1.9 - 2.4 mg/dL 10/07/2024 3:28 AM EDT [facility] Blood Venous blood specimen / Unknown Venipuncture / Unknown 10/07/2024 2:48 AM EDT 10/07/2024 2:58 AM EDT us Leda Zeng MD LAB BLOOD ORDERA BLES Final Result [facility] [address] [place] [address] * (ABNORMAL) Renal Function Panel, Plasma (10/07/2024 2:48 AM EDT) Only the most recent of5 resultswithin the time period is included. Glucose, Plasma 96 74 - 99 mg/dL 10/07/2024 3:28 AM EDT [facility] BUN, Plasma 41(H) 8 - 23 mg/dL 10/07/2024 3:28 AM EDT [facility] Creatinine, Plasma 6.91(H) 0.70 - 1.20 mg/dL 10/07/2024 3:28 AM EDT [facility] BUN/Creatinine Ratio 6 10/07/2024 3:28 AM EDT [facility] Sodium, Plasma 125(L) 136 - 145 mmol/L 10/07/2024 3:28 AM EDT [facility] Potassium, Plasma 4.1 3.6 - 4.9 mmol/L 10/07/2024 3:28 AM EDT [facility] Chloride, Plasma 92(L) 97 - 107 mmol/L 10/07/2024 3:28 AM EDT [facility] CO2, Plasma 23 22 - 29 mmol/L 10/07/2024 3:28 AM EDT [facility] Anion Gap 10 6 - 16 mmol/L 10/07/2024 3:28 AM EDT [facility] Total Calcium, Plasma 7.2(L) 8.9 - 10.2 mg/dL 10/07/2024 3:28 AM EDT [facility] Phosphorus, Plasma 4.2 2.5 - 4.5 mg/dL 10/07/2024 3:28 AM EDT [facility] Albumin, Plasma 3.1(L) 3.5 - 5.2 g/dL 10/07/2024 3:28 AM EDT [facility] eGFRcr 8.2 mL/min/1.7 3m*2 10/07/2024 3:28 AM EDT [facility] Comment:Reported eGFRcr in m L/min/1.73m2 is based the CKD-EPI 2020 equation that does not use a race coefficient. Blood Venous blood specimen / Unknown Venipuncture / Unknown 10/07/2024 2:48 AM EDT 10/07/2024 2:58 AM EDT Leda Zeng MD LAB BLOOD ORDERA BLES Final Result Performing Organization Address City/[facility] Co de Phone Number [facility] [address] [place] [address] * PTH, intact (10/02/2024 9:58 AM EDT) Pathologist [facility] PTH Intact Total 9 9 - 77 pg/mL 10/02/2024 2:50 PM EDT [facility] Blood Venous blood specimen / Unknown Venipuncture / Unknown 10/02/2024 9:58 AM EDT 10/02/2024 11:19 AM EDT Narrative [facility] - 10/02/2024 2:50 PM EDT Assay performed by immunoassay at the [facility]. Performed on [employer] Body Art Technician chemiluminescent immunoassay, tractable to the World Health Organization's first international standard for PTH from the NIBS, Code 79/500. Results obtained from different test methods or kits cannot be used interchangeably. Leda Zeng MD LAB BLOOD ORDERA BLES Final Result Performing Organization Address City/[facility] Co de Phone Number [facility] [address] [place] [address] * Hepatitis C Virus (HCV) Quantitative PCR (10/02/2024 7:51 AM EDT) Pathologist [facility] Hepatitis C Virus (HCV) Quantitative Interpretation Not Detected Not Detected. 10/04/2024 2:37 PM EDT [facility] Blood Venous blood specimen / Unknown Venipuncture / Unknown 10/02/2024 7:51 AM EDT 10/02/2024 8:36 AM EDT Narrative [facility] - 10/04/2024 2:37 PM [...] ORDERABLES Selene l Result Performing Organization Address [facility] [place] [address] * (ABNORMAL) Hepatitis B Surface Antibody, Quantitative (10/02/2024 7:51 AM EDT) [facility] Hepatitis B Surface Antibody, Quantitative 62.12(H) NonReacti ve: <8, Grayzone: 8 - <12, Reactive: >= 12 mIU/mL 10/02/2024 12:27 PM EDT [facility] Comment: Reactive. Individual is considered immune to HBV infection. Blood Venous blood specimen / Unknown Venipuncture / Unknown 10/02/2024 7:51 AM EDT 10/02/2024 8:35 AM EDT Daphne Landry APRN, ADA LAB BLOOD ORDERABLES Selene l Result Performing Organization Address [facility] Co de Phone Number [facility] [address] [place] [address] * (ABNORMAL) Hepatitis panel, acute (10/02/2024 7:51 AM EDT) [facility] Hepatitis B Surf Antigen Negative Negative 10/02/2024 3:10 PM EDT [facility] Hepatitis C Antibody Positive(A) Negative 10/02/2024 3:10 PM EDT [facility] Comment:This specimen is jamey ng sent for confirmation by RT-PCR. Hepatitis A Antibody IgM Negative Negative 10/02/2024 3:10 PM EDT [facility] Hepatitis B Core Antibody IgM Negative Negative 10/02/2024 3:10 PM EDT [facility] Blood Venous blood specimen / Unknown Venipuncture / Unknown 10/02/2024 7:51 AM EDT 10/02/2024 8:36 AM EDT us Daphne Landry JEWELRY CONSULTANT, DNP LAB BLOOD ORDERABLES Selene l Result Performing Organization Address City/[facility]/ZIP Co de Phone Number [facility] [address] [place] [address] * Vitamin D 25 Hydroxy (10/02/2024 5:36 AM EDT) Vitamin D 25 Hydroxy 33.5 20.0 - 80.0 ng/mL 10/02/2024 9:56 AM EDT [facility] Blood Venous blood specimen / Unknown Venipuncture / Unknown 10/02/2024 5:36 AM EDT 10/02/2024 5:42 AM EDT Narrative [facility] - 10/02/2024 9:56 AM EDT Testing performed on [employer] Body Art Technician, standardized against NIST SRM 2972. When [...] ORDERABLES Final Re sult Performing Organization Address [facility]/ZIP Co de Phone Number [facility] [address] [place] [address] * (ABNORMAL) CBC and Differential (10/02/2024 5:36 AM EDT) Only the most recent of2 resultswithin the time period is included. WBC Count 7.44 3.70 - 10.30 10*3/uL LAB HEMATOLOGY METHOD 10/02/2024 5:44 AM EDT [facility] RBC Count 3.30(L) 4.60 - 6.10 10*6/uL LAB HEMATOLOGY METHOD 10/02/2024 5:44 AM EDT [facility] HGB 10.4(L) 13.7 - 17.5 g/dL LAB HEMATOLOGY METHOD 10/02/2024 5:44 AM EDT [facility] HCT 29.8(L) 40.0 - 51.0 % LAB HEMATOLOGY METHOD 10/02/2024 5:44 AM EDT [facility] Platelet Count 119(L) 155 - 369 10*3/uL LAB HEMATOLOGY METHOD 10/02/2024 5:44 AM EDT [facility] MCV 90 79 - 98 fL LAB HEMATOLOGY METHOD 10/02/2024 5:44 AM EDT [facility] MCH 31.5 26.0 - 32.0 pg LAB HEMATOLOGY METHOD 10/02/2024 5:44 AM EDT [facility] MCHC 34.9 30.7 - 35.5 g/dL LAB HEMATOLOGY METHOD 10/02/2024 5:44 AM EDT [facility] RDW 12.5 11.5 - 14.5 % LAB HEMATOLOGY METHOD 10/02/2024 5:44 AM EDT [facility] MPV 9.5 8.8 - 12.5 fL LAB HEMATOLOGY METHOD 10/02/2024 5:44 AM EDT [facility] nRBC 0.0 <=0.0 per 100 WBCs LAB HEMATOLOGY METHOD 10/02/2024 5:44 AM EDT [facility] Differential Type Automated LAB HEMATOLOGY METHOD 10/02/2024 5:44 AM EDT [facility] Neutrophils % 59 % LAB HEMATOLOGY METHOD 10/02/2024 5:44 AM EDT [facility] Lymphocytes % 28 % LAB HEMATOLOGY METHOD 10/02/2024 5:44 AM EDT [facility] Monocytes % 7 % LAB HEMATOLOGY METHOD 10/02/2024 5:44 AM EDT [facility]ALTH[facility]ARE LAB Eosinophils % 4 % LAB HEMATOLOGY METHOD 10/02/2024 5:44 AM EDT [facility] Basophils % 1 % LAB HEMATOLOGY METHOD 10/02/2024 5:44 AM EDT [facility] Immature Granulocytes % 1 % LAB HEMATOLOGY METHOD 10/02/2024 5:44 AM EDT [facility] Neutrophils Absolute 4.44 1.60 - 6.10 10*3/uL LAB HEMATOLOGY METHOD 10/02/2024 5:44 AM EDT [facility]ALTH[facility] Lymphocytes Absolute 2.10 1.20 - 3.90 10*3/uL LAB HEMATOLOGY METHOD 10/02/2024 5:44 AM EDT [facility] Monocytes Absolute 0.53 0.30 - 0.90 10*3/uL LAB HEMATOLOGY METHOD 10/02/2024 5:44 AM EDT [facility] Eosinophils Absolute 0.26 0.00 - 0.50 10*3/uL LAB HEMATOLOGY METHOD 10/02/2024 5:44 AM EDT [facility] Basophils Absolute 0.06 0.00 - 0.10 10*3/uL LAB HEMATOLOGY METHOD 10/02/2024 5:44 AM EDT [facility] Immature Granulocytes Absolute 0.05 0.00 - 0.06 10*3/uL LAB HEMATOLOGY METHOD 10/02/2024 5:44 AM EDT [facility] Blood Venous blood specimen / Unknown Venipuncture / Unknown 10/02/2024 5:36 AM EDT 10/02/2024 5:42 AM EDT Narrative [facility] - 10/02/2024 5:44 AM EDT Therapeutic decision making should be based on absolute values, rather than percentages. Lala Valdes JEWELRY CONSULTANT LAB BLOOD ORDERABLES Final Re sult Performing Organization Address [facility] Co de Phone Number [facility] [address] [place] [address] * (ABNORMAL) Ferritin, Serum (10/02/2024 5:36 AM EDT) Pathologist [facility] Ferritin, Serum 1,701(H) 20 - 400 ng/mL 10/02/2024 8:36 AM EDT [facility] Blood Venous blood specimen / Unknown Venipuncture / Unknown 10/02/2024 5:36 AM EDT 10/02/2024 5:42 AM EDT Lala Valdes JEWELRY CONSULTANT LAB BLOOD ORDERABLES Final Re sult Performing Organization Address City/[facility]/ZIP Co de Phone Number [facility] [address] [place] [address] * Multi Drug Resistance Test (10/01/2024 9:04 PM EDT) [facility] Culture No growth at day 1 10/03/2024 5:35 AM EDT [facility] Swab (Nares and Sydni Rectal) Non-blood Collection / Unknown 10/01/2024 9:04 PM EDT 10/01/2024 9:46 PM EDT Narrative [facility] - 10/03/2024 5:35 AM EDT This test was developed and its performance characteristics determined by the [facility]. Although the media is FDA-approved, it is not FDA-approved for all specimen types submitted. The FDA has determined that such clearance or approval is not necessary. This test is used for surveillance purposes. It should not be regarded as investigational or for research. The [facility] is certified under the Clinical Laboratory Improvement Amendments of 1988 (CLIA-88) as qualified to perform high complexity clinical laboratory testing. Lala Valdes APRN LAB MICROBIOLOGY - GENERAL OR DERABLES Final Result Performing Organization Address City/[facility]/ZIP Co de Phone Number [facility] [address] [place] [address] * TSH Reflex FT4 (09/30/2024 4:50 PM EDT) [facility] Thyroid Stimulating Hormone, Plasma 0.91 0.40 - 4.20 uIU/mL 09/30/2024 9:27 PM EDT [facility] Blood Venous blood specimen / Unknown Venipuncture / Unknown 09/30/2024 4:50 PM EDT 09/30/2024 4:53 PM EDT [email or web address] JEWELRY CONSULTANT LAB BLOOD ORDERABLES Final Re sult Performing Organization Address City/[facility]/ZIP Co de Phone Number [facility] [address] [place] [address] * (ABNORMAL) Iron & Total Iron Binding Capacity, Plasma (Includes Transferrin) (09/30/2024 4:50 PM EDT) [facility] Iron, Plasma 66 50 - 170 ug/dL 09/30/2024 11:58 PM EDT [facility] Transferrin, Plasma 117(L) 200 - 360 mg/dL 09/30/2024 11:58 PM EDT [facility] Total Iron Binding Capacity, Plasma 146(L) 240 - 450 ug/mL 09/30/2024 11:58 PM EDT [facility] Transferrin Saturation 45 14 - 50 % 09/30/2024 11:58 PM EDT [facility] Blood Venous blood specimen / Unknown Venipuncture / Unknown 09/30/2024 4:50 PM EDT 09/30/2024 4:53 PM EDT us Lala Valdes APRN LAB BLOOD ORDERABLES Final Re sult Performing Organization Address City/[facility]/ZIP Co de Phone Number [facility] [address] [place] [address] * (ABNORMAL) C-Reactive protein (09/30/2024 4:50 PM EDT) [facility] CRP, Plasma 16.1(H) <=8.0 mg/L 09/30/2024 5:14 [...] MD LAB BLOOD ORDERABLES Final Re sult [facility] [address] [place] [address] * Phosphorus (09/30/2024 4:50 PM EDT) [facility] Phosphorus, Plasma 3.3 2.5 - 4.5 mg/dL 09/30/2024 5:14 PM EDT [facility]ALTH[facility] Blood Venous blood specimen / Unknown Venipuncture / Unknown 09/30/2024 4:50 PM EDT 09/30/2024 4:53 PM EDT us Lesvia Hudson MD LAB BLOOD ORDERABLES Final Re sult Performing Organization Address City/[facility]/ZIP Co de Phone Number [facility] [address] [place] [address] * (ABNORMAL) Hemoglobin A1c (09/30/2024 4:50 PM EDT) Hemoglobin A1c 6.3(H) <5.7 % 10/01/2024 12:06 PM EDT [facility] Blood Venous blood specimen / Unknown Venipuncture / Unknown 09/30/2024 4:50 PM EDT 09/30/2024 4:54 PM EDT Narrative [facility] - 10/01/2024 12:06 PM EDT HA1C Interpretive Data: Diagnosis of Diabetes: Diabetic > or = 6.5% Pre-diabetic 5.7 to 6.4% Non-diabetic < or = 5.6% Glycemic Targets for Type I and Type II Diabetics: Non- Adults <7.0% Adults <6.0% Children and Adolescents <7.5% Source: [employer] [employer]. Standards of medical care in diabetes,2017. Diabetes Care.2017:40 (suppl 1):S1-S135. us Lala Valdes APRN LAB BLOOD ORDERABLES Final Re sult Performing Organization Address City/[facility] Co de Phone Number [facility] [address] [place] [address] * (ABNORMAL) CMP (09/30/2024 4:50 PM EDT) Glucose, Plasma 185(H) 74 - 99 mg/dL 09/30/2024 5:14 PM EDT [facility] BUN, Plasma 29(H) 8 - 23 mg/dL 09/30/2024 5:14 PM EDT [facility] Creatinine, Plasma 7.58(H) 0.70 - 1.20 mg/dL 09/30/2024 5:14 PM EDT [facility] BUN/Creatinine Ratio 4 09/30/2024 5:14 PM EDT [facility] Sodium, Plasma 131(L) 136 - 145 mmol/L 09/30/2024 5:14 PM EDT [facility] Potassium, Plasma 3.0(L) 3.6 - 4.9 mmol/L 09/30/2024 5:14 PM EDT [facility] Chloride, Plasma 90(L) 97 - 107 mmol/L 09/30/2024 5:14 PM EDT [facility] CO2, Plasma 28 22 - 29 mmol/L 09/30/2024 5:14 PM EDT [facility] Anion Gap 13 6 - 16 mmol/L 09/30/2024 5:14 PM EDT [facility] Total Calcium, Plasma 7.6(L) 8.9 - 10.2 mg/dL 09/30/2024 5:14 PM EDT [facility] Total Protein 7.2 6.3 - 7.9 g/dL 09/30/2024 5:14 PM EDT [facility] Albumin, Plasma 3.7 3.5 - 5.2 g/dL 09/30/2024 5:14 PM EDT [facility] AST, Plasma 13 10 - 50 U/L 09/30/2024 5:14 PM EDT [facility] ALT, Plasma 6(L) 10 - 50 U/L 09/30/2024 5:14 PM EDT [facility] Alkaline Phosphatase, Plasma 42 40 - 115 U/L 09/30/2024 5:14 PM EDT [facility] Total Bilirubin, Plasma 0.6 0.2 - 1.1 mg/dL 09/30/2024 5:14 PM EDT [facility] eGFRcr 7.3 mL/min/1.7 3m*2 09/30/2024 5:14 PM EDT [facility] Comment:Reported eGFRcr in m L/min/1.73m2 is based the CKD-EPI 2020 equation that does not use a race coefficient. Blood Venous blood specimen / Unknown Venipuncture / Unknown 09/30/2024 4:50 PM EDT 09/30/2024 4:53 PM EDT us Lesvia Hudson MD LAB BLOOD ORDERABLES Final Re sult [facility] [address] [place] [address] * EKG now - STAT (adult) (09/30/2024 4:09 PM EDT) EKG DIAGNOSIS CLASS Abnormal MUSE ECG Ventricular Rate 70 BPM MUSE ECG Atrial Rate 70 BPM MUSE ECG DE Interval 154 ms MUSE ECG QRSD Interval 106 ms MUSE ECG QT Interval 430 ms MUSE ECG QTC Interval 464 ms MUSE ECG P Coello 69 degrees MUSE ECG R Coello -23 degrees MUSE ECG T Wave Coello 5 degrees MUSE ECG Diagnosis Normal sinus [...] 12/07/2022 VRE 12/07/2022 12/07/2022 [place] [address] Advance Directives * Full Code (Latest Code [...] Patient has decision-making capacity? Yes Care Teams Expanded Function Dental Assistant Relationship Specialty [place] [address] [place] [address] [address] [place] [phone] PCP - General Family Medicine 06/08/22
--- OUTSIDE RECORDS SUMMARY | 2024-12-19 15:08 | XMS_ITS | Encounter Summary ---
Author Organization Healthcare Address [address] [place] [address] Care Team Providers Care Glove Pairer Name Role Phone Pcp, No Primary Care Provider UnavailLeonard New MD Primary Care Provider [phone] Yesenia Morrell RISK CONTROL FIELD REPRESENTATIVE Unavailable Unavailable Goldie Alan LPN Unavailable UnavailGoldie Kong LPN Unavailable Unavailabl Ranjana Billy RISK CONTROL FIELD REPRESENTATIVE Unavailable UnavailMinnie Martinez RN Unavailable Unavailab le Encounter Details Date Type Department Care Team (Latest Contact Info) Description 06/01/2022 Lab Requisition [facility] S Laboratory Services [address] [place] [address] Ariel Lucas MD [address] [place] [address] Osteomyelitis of vertebra, thoracic region [...] Assessment Author No 09/29/2021 3:17 PM EDT [place], R uth A * Are you blind [...] Assessment Author Yes 09/29/2021 3:17 PM EDT [place], R uth A * Because of a physical, mental, or emotional condition, do you have serious difficulty doing errandsalone such as visiting the doctor? Answer Date of Assessment Author Yes 09/29/2021 3:17 PM EDT [place], R uth A documented as of this [...] LAB HEMATOLOGY METHOD 06/01/2022 3:27 PM EDT [facility] RBC Count 3.55(L) 4.60 - 6.10 10*6/uL LAB HEMATOLOGY METHOD 06/01/2022 3:27 PM EDT [facility] HGB 10.0(L) 13.7 - 17.5 g/dL LAB HEMATOLOGY METHOD 06/01/2022 3:27 PM EDT [facility] HCT 30.5(L) 40.0 - 51.0 % LAB HEMATOLOGY METHOD 06/01/2022 3:27 PM EDT [facility] Platelet Count 162 155 - 369 10*3/uL LAB HEMATOLOGY METHOD 06/01/2022 3:27 PM EDT [facility] MCV 86 79 - 98 fL LAB HEMATOLOGY METHOD 06/01/2022 3:27 PM EDT [facility] MCH 28.2 26.0 - 32.0 pg LAB HEMATOLOGY METHOD 06/01/2022 3:27 PM EDT [facility] MCHC 32.8 30.7 - 35.5 g/dL LAB HEMATOLOGY METHOD 06/01/2022 3:27 PM EDT [facility] RDW 14.1 11.5 - 14.5 % LAB HEMATOLOGY METHOD 06/01/2022 3:27 PM EDT [facility] MPV 11.7 8.8 - 12.5 fL LAB HEMATOLOGY METHOD 06/01/2022 3:27 PM EDT [facility] nRBC 0.0 <=0.0 per 100 WBCs LAB HEMATOLOGY METHOD 06/01/2022 3:27 PM EDT [facility] Differential Type Automated LAB HEMATOLOGY METHOD 06/01/2022 3:27 PM EDT [facility] Neutrophils % 75.0 % LAB HEMATOLOGY METHOD 06/01/2022 3:27 PM EDT [facility] Lymphocytes % 16.0 % LAB HEMATOLOGY METHOD 06/01/2022 3:27 PM EDT [facility] Monocytes % 5.0 % LAB HEMATOLOGY METHOD 06/01/2022 3:27 PM EDT [facility] Eosinophils % 2.0 % LAB HEMATOLOGY METHOD 06/01/2022 3:27 PM EDT [facility] Basophils % 1.0 % [...] LAB HEMATOLOGY METHOD 06/01/2022 3:27 PM EDT [facility] Immature Granulocytes Absolute 0.05 [...] BLOOD ORDERABLES Final Resul t [facility] [address] [place] [id number] * (ABNORMAL) C-reactive protein (06/01/2022 2:20 PM [...] MD LAB BLOOD ORDERABLES Final Resul t [facility] [address] [place] [address] * (ABNORMAL) Comprehensive metabolic panel (06/01/2022 2:20 PM EDT) Glucose, Plasma 382(H) 74 - 99 mg/dL 06/01/2022 3:42 PM EDT [facility] BUN, Plasma 23 8 - 23 mg/dL 06/01/2022 3:42 PM EDT [facility] Creatinine, Plasma 3.41(H) 0.80 - 1.30 mg/dL 06/01/2022 3:42 PM EDT [facility] BUN/Creatinine Ratio 7 06/01/2022 3:42 PM EDT [facility] Sodium, Plasma 128(L) 136 - 145 mmol/L 06/01/2022 3:42 PM EDT [facility] Potassium, Plasma 3.9 3.7 - 4.8 mmol/L 06/01/2022 3:42 PM EDT [facility] Chloride, Plasma 93(L) 97 - 107 mmol/L 06/01/2022 3:42 PM EDT [facility] CO2, Plasma 26 22 - 29 mmol/L 06/01/2022 3:42 PM EDT [facility] Anion Gap 9 6 - 16 mmol/L 06/01/2022 3:42 PM EDT [facility] Total Calcium, Plasma 8.7(L) 8.9 - 10.2 mg/dL 06/01/2022 3:42 PM EDT [facility] Total Protein 7.6 6.3 - 7.9 g/dL 06/01/2022 3:42 PM EDT [facility] Albumin, Plasma 3.4(L) 3.5 - 5.2 g/dL 06/01/2022 3:42 PM EDT [facility] AST, Plasma 13(L) 19 - 48 U/L 06/01/2022 3:42 PM EDT [facility] ALT, Plasma 8(L) 11 - 41 U/L 06/01/2022 3:42 PM EDT [facility] Alkaline Phosphatase, Plasma 53 40 - 115 U/L 06/01/2022 3:42 PM EDT [facility] Total Bilirubin, Plasma 0.4 0.2 - 1.1 mg/dL 06/01/2022 3:42 PM EDT [facility] eGFRcr 19.4 mL/min/1.7 3m*2 06/01/2022 3:42 PM EDT [facility] Comment: Reported eGFRcr in mL/min/1.73m2 is based the CKD-EPI 2020 equation that does not use a race coefficient. Effective 10/13/21 our laboratory changed the eGFR calculation to the CKD-EPI 202 equation from the previously reported eGFR, based on the MDRD equation. For comparisons between the two equations, please see laboratory website: [email or web address] Blood Venous blood specimen / Unknown 06/01/2022 2:20 PM EDT 06/01/2022 3:19 PM EDT us Ariel Lucas MD LAB BLOOD ORDERABLES Final Resul t [facility] [address] [place] [address] documented in this encounter Visit Diagnoses Diagnosis [...] documented as of this encounter Care Teams Glove Pairer Relationship Specialty Start Date End Date Pcp, No [address] [place] [address] PCP - General Family Medicine 09/16/21 06/07/22 Leonard Botello MD [address] [facility] [address] [place] [phone] PCP - General Family Medicine 06/08/22 Yesenia Morrell LPN [employer] [place] [address] TCM Nurse 07/29/22 08/04/22 Goldie Alan LPN VALUE-BASED TRANSFORMATION PROGRAM TCM Nurse Internal Medicine 08/10/22 08/11/22 Goldie Alan LPN VALUE-BASED TRANSFORMATION PROGRAM TCM Nurse Internal Medicine 08/17/22 09/16/22 Ranjana Elias LPN [employer] [place] [address] TCM Nurse 01/13/23 02/08/23 Minnie Penn, RN [facility]-VASCULAR & INTERVENTIONAL RADIOLOGY Registered Nurse 10/01/24 10/01/24 documented as of this encounter
--- OUTSIDE RECORDS SUMMARY | 2024-12-19 15:08 | XMS_ITS | Encounter Summary ---
Author Organization Healthcare Address [address] [place] [address] Care Team Providers Care Route Salesman Name Role Phone Pcp, No Primary Care Provider UnavailRanjana Castellanos ALL AROUND GEAR MACHINE OPERATOR Unavailable UnavailYola Bains Unavailable Unavailable Leonard Botello MD Primary Care Provider [phone] Yesenia Morrell ALL AROUND GEAR MACHINE OPERATOR Unavailable Unavailable Goldie Alan ALL AROUND GEAR MACHINE OPERATOR Unavailable UnavailGoldie Kong ALL AROUND GEAR MACHINE OPERATOR Unavailable UnavailRanjana Castellanos ALL AROUND GEAR MACHINE OPERATOR Unavailable UnavailMinnie Martinez RN Unavailable Unavailab le Encounter Details Date Type Department Care Team (Late st Contact Info) Description 04/06/2022 Lab Requisition P[facility] S Laboratory Services [address] [place] [address] Ariel Lucas MD [address] [place] [address] End stage renal disease (CMS/HCC) [...] LAB HEMATOLOGY METHOD 04/06/2022 2:16 PM EST [facility] RBC Count 2.80(L) 4.60 - 6.10 10*6/uL LAB HEMATOLOGY METHOD 04/06/2022 2:16 PM EST [facility] HGB 8.1(L) 13.7 - 17.5 g/dL LAB HEMATOLOGY METHOD 04/06/2022 2:16 PM EST [facility] HCT 25.4(L) 40.0 - 51.0 % LAB HEMATOLOGY METHOD 04/06/2022 2:16 PM EST [facility] Platelet Count 154(L) 155 - 369 10*3/uL LAB HEMATOLOGY METHOD 04/06/2022 2:16 PM EST [facility] MCV 91 79 - 98 fL LAB HEMATOLOGY METHOD 04/06/2022 2:16 PM EST [facility] MCH 28.9 26.0 - 32.0 pg LAB HEMATOLOGY METHOD 04/06/2022 2:16 PM EST [facility] MCHC 31.9 30.7 - 35.5 g/dL LAB HEMATOLOGY METHOD 04/06/2022 2:16 PM EST [facility] RDW 14.1 11.5 - 14.5 % LAB HEMATOLOGY METHOD 04/06/2022 2:16 PM EST [facility] MPV 11.1 8.8 - 12.5 fL LAB HEMATOLOGY METHOD 04/06/2022 2:[address] [facility] nRBC 0.0 <=0.0 per 100 WBCs LAB HEMATOLOGY METHOD 04/06/2022 2:[address] [facility] Differential Type Automated LAB HEMATOLOGY METHOD 04/06/2022 2:[address] [facility] Neutrophils % 66.0 % LAB HEMATOLOGY METHOD 04/06/2022 2:16 PM EST [facility] Lymphocytes % 23.0 % LAB HEMATOLOGY METHOD 04/06/2022 2:16 PM EST [facility] Monocytes % 5.0 % LAB HEMATOLOGY METHOD 04/06/2022 2:16 PM EST [facility] Eosinophils % 4.0 % LAB HEMATOLOGY METHOD 04/06/2022 2:16 PM EST [facility] Basophils % 1.0 % LAB HEMATOLOGY METHOD 04/06/2022 2:16 PM EST [facility] Immature Granulocytes % 1.0 % LAB HEMATOLOGY METHOD 04/06/2022 2:16 PM EST [facility] Neutrophils Absolute 4.31 1.60 - 6.10 10*3/uL LAB HEMATOLOGY METHOD 04/06/2022 2:16 PM EST [facility] Lymphocytes Absolute 1.49 1.20 - 3.90 10*3/uL LAB HEMATOLOGY METHOD 04/06/2022 2:16 PM EST [facility] Monocytes Absolute 0.33 0.30 - 0.90 10*3/uL LAB HEMATOLOGY METHOD 04/06/2022 2:16 PM EST [facility] Eosinophils Absolute 0.26 0.00 - 0.50 10*3/uL LAB HEMATOLOGY METHOD 04/06/2022 2:16 PM EST [facility] Basophils Absolute 0.03 0.00 - 0.10 10*3/uL LAB HEMATOLOGY METHOD 04/06/2022 2:16 PM [address] [facility] Immature Granulocytes Absolute 0.03 0.00 - 0.06 10*3/uL LAB HEMATOLOGY METHOD 04/06/2022 2:16 PM EST [facility] Blood Venous blood specimen / Unknown 04/06/2022 1:35 PM EST 04/06/2022 2:05 PM EST Narrative [facility] - 04/06/2022 2:16 PM EST Therapeutic decision making should be based on absolute values, rather than percentages. us Ariel Lucas MD LAB BLOOD ORDERABLES Final Resul t 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/2022 COVID-19 Rule-Out 04/14/2023 04/14/2023 04/14/2023 8:45 PM EST documented as of this encounter Care Teams Route Salesman Relationship Specialty Start Date End Date Pcp, No [address] [place] [address] PCP - General Family Medicine 09/16/21 06/07/22 Leonard Botello MD [address] [facility] [address] [place] [address] PCP - General Family Medicine 06/08/22 Ranjana Elias LPN VAL[employer] [place] [address] TCM Nurse 03/25/22 04/18/22 Yola Ruff [facility] [place] [address] Secret Code Expert Back Joiner 04/12/22 05/05/22 Yesenia Morrell LPN [employer] [place] [address] TCM Nurse 07/29/22 08/04/22 Goldie Alan LPN VALUE-BASED TRANSFORMATION PROGRAM TCM Nurse Internal Medicine 08/10/22 08/11/22 Goldie Alan LPN VALUE-BASED TRANSFORMATION PROGRAM TCM Nurse Internal Medicine 08/17/22 09/16/22 Ranjana Elias LPN [employer] [place] [address] TCM Nurse 01/13/23 02/08/23 Minnie Penn, RN CH-VASCULAR & INTERVENTIONAL RADIOLOGY Registered Nurse 10/01/24 10/01/24 documented as of this encounter
--- OUTSIDE RECORDS SUMMARY | 2024-12-19 15:08 | XMS_ITS | Clinical Summary ---
Author Organization [facility] Address [address] [place] [address] Phone Care Team Providers Care Tea Bag Machine Tender Name Role Phone Efren Black MD Unavailable [ ] Conditions or Problems Problem Name Problem Code Onset Date Status Entry Date Provider Comment Standard Description Annotate Acute renal failure 98662150 (SNOMED CT) 10/11 Active 10/11 Meghanfabi Lopez Acute kidney injury Acquired absence of right toe(s) Z89.421 (ICD-10-CM) 10/11 Active 10/11 Meghan Lopez Acquired absence of other right toe(s) Acute hepatitis C B17.10 (ICD-10-CM) 10/11 Active 10/11 Meghan Lopez Acute hepatitis C without hepatic coma MRSA infection 003260154 (SNOMED CT) 10/11 Active 10/11 Meghan Lopez Methicillin resistant Staphylococcus aureus infection ENTEROCOCCUS INFECTION 157194144 (SNOMED CT) 10/11 Active 10/11 Meghan Lopez Infection caused by Enterococcus Providencia infection B96.89 (ICD-10-CM) 10/11 Active 10/11 Meghan Lopez Other specified bacterial agents as the cause of diseases classified elsewhere Cellulitis, foot, right 992162069 (SNOMED CT) 10/11 Active 10/11 Meghanfabi Floreswell [...] ulcer Other obesity due to excess calories 180365621 (SNOMED CT) 10/11 Active 10/11 Anastacio Schaffer Simple obesity Medications Medication Instructions Start Date Stop Date Generic Name ND Provider NORCO 5-325 MG ORAL TABLET 2 tabs by mouth every 4 hours as needed HYDROCODONE-ACETA MINOPHEN 73995190137 Anastacio Schaffer MIRALAX ORAL PACKET 17 grams by mouth twice daily as needed POLYETHYLENE GLYCOL 3350 [id number] Anastacio Schaffer LEVEMIR 100 UNIT/ML SUBCUTANEOUS SOLUTION 20 units subcutaneous twice daily INSULIN DETEMIR 62187082594 Anastacio Schaffer NOVOLOG 100 UNIT/ML SUBCUTANEOUS SOLUTION INSULIN ASPART 92835258244 Anastacio Schaffer GABAPENTIN 600 MG TABS by mouth twice daily GABAPENTIN 39092809293 Anastacio Schaffer ANTONIETTA-Q 2 ORAL CAPSULE by mouth daily PROBIOTIC PRODUCT 68046864104 Anastacio Schaffer FLOMAX 0.4 MG ORAL CAPSULE by mouth daily TAMSULOSIN HCL 12333074102 Anastacio Schaffer ACID CONTROL MAXIMUM STRENGTH 20 MG TABS by mouth daily FAMOTIDINE 53504615662 Anastacio Schaffer ERGOCALCIFEROL 1.25 MG (24375 UT) CAPS by mouth weekly ERGOCALCIFEROL 70369970753 Anastacio Schaffer DULCOLAX 10 MG SUPP twice daily BISACODYL 44532922586 Anastacio Schaffer CATAPRES 0.1 MG ORAL TABLET CLONIDINE HCL 57123770366 Anastacio Schaffer COREG 12.5 MG TABS by mouth twice daily CARVEDILOL 86725990390 Anastacio Schaffer ASPIR-LOW 81 MG ORAL TABLET DELAYED RELEASE by mouth daily ASPIRIN 57011121933 Anastacio Schaffer AMITRIPTYLINE HCL 50 MG TABS by mouth at bedtime AMITRIPTYLINE HCL 63228219388 Anastacio Schaffer Medications Administered No information available. [...]
--- OUTSIDE RECORDS SUMMARY | 2024-12-19 15:08 | XMS_ITS | Encounter Summary ---
Author Organization Healthcare Address [address] [place] [address] Care Team Providers Care Garment Parts Cutter Machine Name Role Phone Pcp, No Primary Care Provider UnavailUrvashi Morocho LIVE TRUCK TECHNICIAN Unavailable Unavailable Ranjana Elias LIVE TRUCK TECHNICIAN Unavailable UnavailYola Bains Unavailable Unavailable Leonard Botello MD Primary Care Provider [phone] Yesenia Morrell LIVE TRUCK TECHNICIAN Unavailable Unavailable Goldie Alan LIVE TRUCK TECHNICIAN Unavailable Unavailabl Goldie Mccauley LIVE TRUCK TECHNICIAN Unavailable Unavailabl Ranjana Billy S LIVE TRUCK TECHNICIAN Unavailable UnavailMinnie Martinez RN Unavailable Unavailab le Encounter Details Date Type Department Care Team (Late st Contact Info) Description 07/29/2020 [facility] [address] [place] [address] Rose Vázquez, CANE STRIPPER [address] [facility] [address] [place] [address] Social History Tobacco Use Types Packs/Day Years Used Date Smoking Tobacco: Never Assessed Sex and Gender Information Value Date Recorded Sex Assigned at Male 03/02/2022 1:43 PM EST Legal Sex Male 8:21 PM EDT Gender Identity Male 03/02/2022 1:43 PM EST Sexual Orientation Straight 03/02/2022 1: 43 PM EST documented as of this encounter Miscellaneous Notes * Progress Notes - Rose Vázquez PRODUCTION MANUFACTURING WORKER - 07/29/2020 3:29 PM EDT ICE: 59 yo CM w/ ESRD 2/2 DM/ HTN, began HD maybe in 2015 PMH: End-stage renal disease Diabetes mellitus Hypertension Cognitive developmental delay Congestive heart failure Hepatitis-C History of COVID pneumonia Neuropathy PSH: Left AV fistula Bilateral TMA Ear surgery Family history: unknown Social history: He is single, lives in a family residential with a paid caregiver. He denies tobacco, [...] delay, does not have a power of coating machine operator helper. When I asked him what he understands [...] documented as of this encounter Care Teams Garment Parts Cutter Machine Relationship Specialty Start Date End Date Pcp, No [address] [place] [address] PCP - General Family Medicine 09/16/21 06/07/22 [place] [address] [place] [address] [address] [place] [phone] PCP - General Family Medicine 06/08/22 Urvashi Del Cid LPN VALUE[employer]ED [place] [address] TCM Nurse 09/30/21 10/29/21 Ranjana Elias LPN VAL[employer] [place] [address] TCM Nurse 03/25/22 04/18/22 [place] [address] Art Historian Professional Engineer 04/12/22 05/05/22 Yesenia Morrell LPN VAL[employer]ED [place] [address] TCM Nurse 07/29/22 08/04/22 Goldie Alan LPN VALUE-BASED TRANSFORMATION PROGRAM TCM Nurse Internal Medicine 08/10/22 08/11/22 Planck, Goldie N, LIVE TRUCK TECHNICIAN VALUE-BASED TRANSFORMATION PROGRAM TCM Nurse Internal Medicine 08/17/22 09/16/22 Ranjana Elias, CHRISTY VALUE-[employer] [place] [address] TCM Nurse 01/13/23 02/08/23 Minnie Penn, RN CH-VASCULAR & INTERVENTIONAL RADIOLOGY Registered Nurse 10/01/24 10/01/24 documented as of this encounter
== END 2024-12-19 23:59 | disposition home or self-care (01) ==
LOC: RT 15:06
PROVIDERS: PCP Internal Medicine Adolescent Medicine; Visit Provider Internal Medicine
DX: Z01.810 Encounter for preprocedural cardiovascular examination (principal); I11.9 Hypertensive heart disease without heart failure; E78.5 Hyperlipidemia, unspecified; I25.10 Atherosclerotic heart disease of native coronary artery without angina pectoris; R94.31 Abnormal electrocardiogram [ECG] [EKG]
CPT/HCPCS: 93306

== ENCOUNTER 2025-01-16 11:49 | Outpatient (CLI) | payer MEDICARE, MEDICAID, SELFPAY ==
--- OUTSIDE RECORDS SUMMARY | 2025-01-16 11:55 | XMS_ITS | Clinical Summary ---
Author Organization [facility] Address [address] [place] [address] Phone Care Team Providers Care City Collector Name Role Phone Efren Black MD Unavailable [ ] Conditions or Problems Problem Name Problem Code Onset Date Status Entry Date Provider Comment Standard Description Annotate Acute renal failure 15604626 (SNOMED CT) 10/11 Active 10/11 Meghanfabi Lopez Acute kidney injury Acquired absence of right toe(s) Z89.421 (ICD-10-CM) 10/11 Active 10/11 Meghan Lopez Acquired absence of other right toe(s) Acute hepatitis C B17.10 (ICD-10-CM) 10/11 Active 10/11 Meghan Lopez Acute hepatitis C without hepatic coma MRSA infection 403552662 (SNOMED CT) 10/11 Active 10/11 Meghan Lopez Methicillin resistant Staphylococcus aureus infection ENTEROCOCCUS INFECTION 436639562 (SNOMED CT) 10/11 Active 10/11 Meghan Lopez Infection caused by Enterococcus Providencia infection B96.89 (ICD-10-CM) 10/11 Active 10/11 Meghan Lopez Other specified bacterial agents as the cause of diseases classified elsewhere Cellulitis, foot, right 033624273 (SNOMED CT) 10/11 Active 10/11 Meghanfabi Floreswell [...] ulcer Other obesity due to excess calories 978094098 (SNOMED CT) 10/11 Active 10/11 Anastacio Schaffer Simple obesity Medications Medication Instructions Start Date Stop Date Generic Name ND Provider NORCO 5-325 MG ORAL TABLET 2 tabs by mouth every 4 hours as needed HYDROCODONE-ACETA MINOPHEN 21252837650 Anastacio Schaffer MIRALAX ORAL PACKET 17 grams by mouth twice daily as needed POLYETHYLENE GLYCOL 3350 03188500021 Anastacio Schaffer LEVEMIR 100 UNIT/ML SUBCUTANEOUS SOLUTION 20 units subcutaneous twice daily INSULIN DETEMIR 75404417801 Anastacio Schaffer NOVOLOG 100 UNIT/ML SUBCUTANEOUS SOLUTION INSULIN ASPART 18822365469 Anastacio Schaffer GABAPENTIN 600 MG TABS by mouth twice daily GABAPENTIN 05261367149 Anastacio Schaffer ANTONIETTA-Q 2 ORAL CAPSULE by mouth daily PROBIOTIC PRODUCT 65581035277 Anastacio Schaffer FLOMAX 0.4 MG ORAL CAPSULE by mouth daily TAMSULOSIN HCL 07954890456 Anastacio Schaffer ACID CONTROL MAXIMUM STRENGTH 20 MG TABS by mouth daily FAMOTIDINE 74052438845 Anastacio Schaffer ERGOCALCIFEROL 1.25 MG (87553 UT) CAPS by mouth weekly ERGOCALCIFEROL 49928611768 Anastacio Schaffer DULCOLAX 10 MG SUPP twice daily BISACODYL 14116476445 Anastacio Schaffer CATAPRES 0.1 MG ORAL TABLET CLONIDINE HCL 02626307336 Anastacio Schaffer COREG 12.5 MG TABS by mouth twice daily CARVEDILOL 12928158388 Anastacio Schaffer ASPIR-LOW 81 MG ORAL TABLET DELAYED RELEASE by mouth daily ASPIRIN 49328245896 Anastacio Schaffer AMITRIPTYLINE HCL 50 MG TABS by mouth at bedtime AMITRIPTYLINE HCL 86638810281 Anastacio Schaffer Medications Administered No information available. [...]
--- OUTSIDE RECORDS SUMMARY | 2025-01-16 11:56 | XMS_ITS | Clinical Summary ---
Author Organization Healthcare Address [address] [place] [address] Care Team Providers Care Cane Pusher Name Role Phone Leonard Botello MD Primary Care Provider [phone] Allergies No known active allergies Medications * [...] (10/01/2024 6:37 AM EDT): - Transferred to senior care a week ago and since arrival refusing HD, to eat, participate, or take medications - sent to ED for medical evaluation and need for higher level of assist/unable to care for self/non-compliance - afebrile, VSS, no acute complaints PLAN - PT/OT consult re: placement - legal guardian is his brother, Chris Dooley, #[phone] Chronic osteomyelitis 12/20/2022 BPH (benign prostatic hyperplasia) [...] to caregiver to go with patient to [facility] want ad clerk for notary obtaining pass. 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 06/07/2023 08/31/2023 [...] evaluation and treatment for inpatient services at [facility] -patient will be contacted pertaining on when to arrive to [facility] for evaluation -Caregiver spoke with celso Ruff (mental health social worker) and was instructed to contact mental health social worker for any further questions -Education [...] (02/28/2022): Added automatically from request for surgery [id number] Non-compliance 12/24/2021 10/01/2024 Aches 12/22/2021 09/30/2024 Assessment [...] Encounter [facility] Interventional Radiology [address] [place] [address] Arturo Ramos, RN ESRD (end stage renal disease) ([facility]); Unspecified complication of cardiac and vascular prosthetic device, implant and graft, subsequent encounter Discharge Disposition: Home or Self Care 11/07/2024 Travel 10/21/2024 Travel 10/18/2024 Travel 10/17/2024 Travel 10/16/2024 Travel 09/30/2024 3:29 PM EDT - 10/21/2024 3:10 PM EDT Hospital Encounter P[facility] S Inpatient [address] [place] [address] Lesvia Hudson MD Khalid, MD Warren Pedersen Elizabeth, MD Kidwai, MD Tori Mendieta Padmaja, MD ESRD (end stage renal disease) ([facility]) (Primary Dx); Noncompliance by refusing service; ESRD (end stage renal disease) on dialysis ([facility]); Declining functional status Discharge Disposition: Half-Way Facility from Last 3 Months Immunizations Immunization Administration Dates Next Due Hep A / Hep B 03/24/2014,02/10/2014 Hep B, adult 07/22/2014 Influenza, Injectable, MDCK, trivalent, PF 12/25/2013 Influenza, high-dose, quadrivalent 12/29/2023 Influenza, injectable, quadr ivalent, preservative free 01/09/2023,12/17/2021,01/07/2021,12/28,10/25/2016,12/21/2014 Influenza, seasonal, injectable 12/19/19 18,10/04/2016,01/19/2016,01/09,02/15/2007 Influenza, seasonal, injecta ble, preservative free 01/14/2016,01/15/2013,12/29/2011,12/25,12/03/2008 PPD Skin Test (TB Skin Test) 06/07/2024,09/07/19 24,08/31/2023 Pfizer-[employer]rent [employer] COVID-19 Biv alent ([facility]) 12+ years [...] any time in the past 12 m onths, were you homeless or living in a long term (including now)? 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-HOTSHOT SUPERINTENDENT) to steady your nerves or to get [...] 08/22/2014 03/24/2014, 02/10/2014 [facility]-Depression Screening 09/14/2023 09/13/2022 [id number] Vaccine ( season) 2024 01/03/2022, 04/07/2021, 07/23/2020, Additional history exists [facility]-Diabetes: Hemoglobin A1C 03/30/2025, 08/05/2023, 04/14/2023, Additional history exists [facility]- SDOH Screenings 04/04/2025 [facility]-Adult SDOH Screenings 04/04/2025 10/02/2024 [facility]-DTaP,Tdap,and Td Vaccines (2 - Td or Tdap) 12/05/2026 12/05/2016, 12/18/2007 [facility]-RSV Vaccine: 60+ Years or Completed 01/16/2024 [facility]-Pneumococcal Vaccine: 50+ Years Completed 11/15/2024, 02/04/2022, 02/04/2021, Additional history exists [facility]-Influenza Vaccine Completed 12/30/2024 , 12/29/2023, 01/09/2023, Additional history exists HPV Vaccines Aged Out No longer eligi [...] this topic Medical Devices Implanted Type Area Sales Financial Analyst Device Identifier Shelf Expiration Date Model / Serial / Lot Graft Flixene Grd Wall Gds [id number] - [id number] - [id number] Implanted:Qty: 1 on 07/27/2022 by Aravind Gomez MD at [facility] [place] Graft Right: Arm [id number] 02/02/2025 [id number] / [id number] / Stent Endoprosthesis Viabahn 8fr [id number] - [id number] Implanted:Qty: 1 on 10/07/2021 by Deven Roldan MD at [facility] [id number] 06/05/2024 [id number] / [id number] / [id number] Procedures Procedure Name Priority Date/Time Associated Diagnosis Comments IR ANGIOGRAM ARTERIOVENOUS SHUNT Routine 11/07/2024 3:02 PM EDT ESRD (end stage renal disease) ([facility]) Unspecified complication of cardiac and vascular prosthetic device, implant and graft, subsequent encounter HEMODIALYSIS INPATIENT Routine 10/21/2024 11:17 AM EDT ESRD (end stage renal disease) on dialysis ([facility]) POCT GLUCOSE METER UNSOLICITED RESULTS Routine 10/21/2024 [...] ESRD (end stage renal disease) on dialysis ([facility]) POCT GLUCOSE METER UNSOLICITED RESULTS Routine 10/17/2024 [...] ESRD (end stage renal disease) on dialysis ([facility]) HEMODIALYSIS INPATIENT Routine 10/16/2024 8:41 AM EDT ESRD (end stage renal disease) on dialysis ([facility]) POCT GLUCOSE METER UNSOLICITED RESULTS Routine 10/16/2024 8:19 AM EDT POCT GLUCOSE METER UNSOLICITED RESULTS Routine 10/16/2024 8:09 AM EDT HEMOGLOBIN A1C Add-On 09/30/2024 4:50 PM EDT from Last 3 Months or Most Recently Relevant to Health Maintenance Results * IR Angiogram ArterioVenous Shunt (11/07/2024 [...] Ax-Ax Loop AVG, C/O Prolonged Bleeding. TECHNIQUE: Sign Fabricator: Fernanda Singleton M.D Fluoroscopy time: 3.4 min, Air Kerma 8 mGy. Medications: 1% Local lidocaine was administered subcutaneously. Conscious sedation with IV Midazolam 1mg and IV Fentanyl 50 mcg were provided. Continuous physiologic monitoring provided by a qualified healthcare professional. Duration of Conscious Sedation: Time out: 14:31 close out: 14:50. Procedure: Right Ax-Ax Loop AVG Graftogram POBA and DCB OUTBOARD MOTOR MECHANIC of Severe Right Subclavian Vein Stenosis POBA [...] over a guide wire for a 4 Ugandan micropuncture sheath. An angiogram was performed from the site of puncture to the superior vena cava. Digital subtraction angiography was performed of the graft from peripheral to central. This revealed Severe Right Subclavian Stenosis Moderate Venous Anastomosis Stenosis Moderate Cannulation Zone Stenosis The micropuncture sheath was exchanged for a 7 Ugandan vascular sheath. Via the sheath, A stiff glide 0.035 180 cm wire was placed centrally through a 5 Ugandan glide catheter. Angioplasty of the right subclavian [...] angioplastied with 8 mm x 80 mm Watkins angioplasty balloon with good response. Digital subtraction [...] RUE Ax-Ax Loop AVG, C/O ProlongedBleeding. TECHNIQUE: Sign Fabricator: Fernanda Singleton M.D Fluoroscopy time: 3.4 min, Air Kerma 8 mGy. Medications: 1% Local lidocaine was administered subcutaneously.Conscious sedation with IV Midazolam 1mg and IV Fentanyl 50 mcg wereprovided. Continuous physiologic monitoring provided by a qualifiedhealthcare professional. Duration of Conscious Sedation: Time out: 14:31 close out: 14:50. Procedure: Right Ax-Ax Loop AVG Graftogram POBA and DCB OUTBOARD MOTOR MECHANIC of Severe Right Subclavian Vein Stenosis POBA [...] micropuncture sheath was exchanged for a 7 Ugandan vascular sheath. Viathe sheath, A stiff glide 0.035 180 cm wire was placed centrally through a5 Ugandan glide catheter. Angioplasty of the right subclavian [...] Fernanda Singleton MD on 11/07/2024 4:26 PM us Fernanda Singleton MD IMG IR PROCEDURES Final [...] 9:15 AM EDT) Only the most recent of14 resultswithin the time period is included. POCT Glucose 116(H) 74 - 99 mg/dL 10/21/2024 9:17 AM EDT [facility] Comment:Accuracy of a glucos e result [...] for testing. Comment 10/21/2024 9:17 AM EDT [facility] Editing Computer Publisher ID Jane Dill 10/21/2024 9:17 AM EDT [facility] Device ID [id number] 10/21/2024 9:17 AM EDT [facility] Specimen Type POC Capillary 10/21/2024 9:17 AM EDT [facility] Blood Capillary blood specimen / Unknown 10/21/2024 9:15 AM EDT 10/21/2024 9:17 AM EDT Jeannie Valle MD LAB POINT OF CARE TE ST DOCKED DEVICE UNSOLICITED RESULTS Final Result Performing Organization Address City/[facility] Co de Phone Number [facility] [address] [place] [address] * Hepatitis B Core Total Antibody IgG,IgM (10/17/2024 2:31 PM EDT) Hepatitis B Core Total Antibody IgG,IgM Negative Negative 10/17/2024 5:01 PM EDT [facility] Blood Venous blood specimen / Unknown Venipuncture / Unknown 10/17/2024 2:31 PM EDT 10/17/2024 2:35 PM EDT Jeannie Valle MD LAB BLOOD ORDERABLES Final Res ult Performing Organization Address City/[facility] Co de Phone Number [facility] [address] [place] [address] * XR Chest 1 View (10/17/2024 2:11 [...] signing this report, I, the attending physician, radhathat I have personally reviewed the images/data for the aboveexamination(s) and agree with the final edited report. Drafted by Seng Martinez MD on 10/17/2024 2:37 PM Final report signed by Fortunato Willett MD on 10/17/2024 2:49 PM us Jeannie Valle MD IMG XR PROCEDURES Final Result * (ABNORMAL) Hemoglobin A1c (09/30/2024 4:50 PM EDT) Hemoglobin A1c 6.3(H) <5.7 % 10/01/2024 12:06 PM EDT [facility] Blood Venous blood specimen / Unknown Venipuncture / Unknown 09/30/2024 4:50 PM EDT 09/30/2024 4:54 PM EDT Narrative [facility] - 10/01/2024 12:06 PM EDT HA1C Interpretive Data: Diagnosis of Diabetes: Diabetic > or = 6.5% Pre-diabetic 5.7 to 6.4% Non-diabetic < or = 5.6% Glycemic Targets for Type I and Type II Diabetics: Non- Adults <7.0% Adults <6.0% Children and Adolescents <7.5% Source: [place] [employer]. Standards of medical care in diabetes,2017. Diabetes Care.2017:40 (suppl 1):S1-S135. 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 Yes Care Teams Cane Pusher Relationship Specialty Start Date End Date Leonard Botello MD [address] [address] PCP - General Family Medicine 06/08/22
--- OUTSIDE RECORDS SUMMARY | 2025-01-16 11:56 | XMS_ITS | Encounter Summary ---
Author Organization Healthcare Address [address] [place] [address] Care Team Providers Care Mattress And Boxsprings Supervisor Name Role Phone Pcp, No Primary Care Provider UnavailUrvashi Morocho REGIONAL OWNER OPERATOR TRUCK DRIVER Unavailable Unavailable Ranjana Elias REGIONAL OWNER OPERATOR TRUCK DRIVER Unavailable UnavailYola Bains Unavailable Unavailable Leonard Botello MD Primary Care Provider [phone] Yesenia Morrell REGIONAL OWNER OPERATOR TRUCK DRIVER Unavailable Unavailable Goldie Alan REGIONAL OWNER OPERATOR TRUCK DRIVER Unavailable Unavailabl Goldie Mccauley REGIONAL OWNER OPERATOR TRUCK DRIVER Unavailable Unavailabl Ranjana Billy S REGIONAL OWNER OPERATOR TRUCK DRIVER Unavailable UnavailMinnie Martinez RN Unavailable Unavailab le Encounter Details Date Type Department Care Team (Late st Contact Info) Description 07/29/2020 [facility] Historical OTTR [address] [place] [address] Rose Vázquez, ENTRY LEVEL ADMINISTRATIVE ASSISTANT [address] [facility] [address] [place] [address] Social History Tobacco Use Types Packs/Day Years Used Date Smoking Tobacco: Never Assessed Sex and Gender Information Value Date Recorded Sex Assigned at Male 03/02/2022 1:43 PM EST Legal Sex Male 8:21 PM EDT Gender Identity Male 03/02/2022 1:43 PM EST Sexual Orientation Straight 03/02/2022 1: 43 PM EST documented as of this encounter Miscellaneous Notes * Progress Notes - Rose Vázquez SALES AND MARKETING PROFESSIONAL - 07/29/2020 3:29 PM EDT ICE: 59 [...] delay, does not have a power of erisa attorney. When I asked him what he [...] documented as of this encounter Care Teams Mattress And Boxsprings Supervisor Relationship Specialty Start Date End Date Pcp, No [address] [place] [address] PCP - General Family Medicine 09/16/21 06/07/22 [place] [address] [place] [address] [address] [place] [phone] PCP - General Family Medicine 06/08/22 Urvashi Del Cid LPN VALUE-BASED [place] [address] TCM Nurse 09/30/21 10/29/21 Ranjana Elias LPN VALUE-BASED [place] [address] TCM Nurse 03/25/22 04/18/22 [place] [address] Fancy Wire Drawer Cable Tool Operator 04/12/22 05/05/22 Yesenia Morrell LPN VALUE-BASED [place] [address] TCM Nurse 07/29/22 08/04/22 Goldie Alan LPN VALUE-BASED TRANSFORMATION PROGRAM TCM Nurse Internal Medicine 08/10/22 08/11/22 Planck, Goldie N, REGIONAL OWNER OPERATOR TRUCK DRIVER VALUE-BASED TRANSFORMATION PROGRAM TCM Nurse Internal Medicine 08/17/22 09/16/22 Ranjana Elias, CHRISTY VALUE-BASED [place] [address] TCM Nurse 01/13/23 02/08/23 Minnie Penn, RN [facility]-VASCULAR & INTERVENTIONAL RADIOLOGY Registered Nurse 10/01/24 10/01/24 documented as of this encounter
--- OUTSIDE RECORDS SUMMARY | 2025-01-16 11:56 | XMS_ITS | Encounter Summary ---
Author Organization Healthcare Address [address] [place] [address] Care Team Providers Care Travel Freight And Passenger Agent Name Role Phone Pcp, No Primary Care Provider UnavailLeonard New MD Primary Care Provider Yesenia Morrell DEPUTY CHIEF MAGISTRATE Unavailable Unavailable Goldie Alan LPN Unavailable UnavailGoldie Kong LPN Unavailable Unavailabl Ranjana Billy DEPUTY CHIEF MAGISTRATE Unavailable UnavailMinnie Martinez RN Unavailable Unavailab le Encounter Details Date Type Department Care Team (Latest Contact Info) Description 06/01/2022 Lab Requisition [facility] Laboratory Services [address] [place] [address] Ariel Lucas MD [address] [place] [address] Osteomyelitis of vertebra, thoracic region [...] Assessment Author Yes 09/29/2021 3:17 PM EDT [place], R uth A * Do you have serious difficulty walking or climbing stairs? Answer Date of Assessment Author Yes 09/29/2021 3:17 PM EDT [place], R uth A * Do you have serious difficulty dressing or bathing? Answer Date of Assessment Author Yes 09/29/2021 3:17 PM EDT Julio, R uth A * Because of a [...] Date Author Yes 09/29/2021 3:17 PM EDT [place], R uth A documented in this encounter [...] LAB HEMATOLOGY METHOD 06/01/2022 3:27 PM EDT [facility] RBC Count 3.55(L) 4.60 - 6.10 10*6/uL LAB HEMATOLOGY METHOD 06/01/2022 3:27 PM EDT [facility] HGB 10.0(L) 13.7 - 17.5 g/dL LAB HEMATOLOGY METHOD 06/01/2022 3:27 PM EDT [facility] HCT 30.5(L) 40.0 - 51.0 % LAB HEMATOLOGY METHOD 06/01/2022 3:27 PM EDT [facility] Platelet Count 162 155 - 369 10*3/uL LAB HEMATOLOGY METHOD 06/01/2022 3:27 PM EDT [facility] MCV 86 79 - 98 fL LAB HEMATOLOGY METHOD 06/01/2022 3:27 PM EDT [facility] MCH 28.2 26.0 - 32.0 pg LAB HEMATOLOGY METHOD 06/01/2022 3:27 PM EDT [facility] MCHC 32.8 30.7 - 35.5 g/dL LAB HEMATOLOGY METHOD 06/01/2022 3:27 PM EDT [facility] RDW 14.1 11.5 - 14.5 % LAB HEMATOLOGY METHOD 06/01/2022 3:27 PM EDT [facility] MPV 11.7 8.8 - 12.5 fL LAB HEMATOLOGY METHOD 06/01/2022 3:27 PM EDT [facility] nRBC 0.0 <=0.0 per 100 WBCs LAB HEMATOLOGY METHOD 06/01/2022 3:27 PM EDT [facility] Differential Type Automated LAB HEMATOLOGY METHOD 06/01/2022 3:27 PM EDT [facility] Neutrophils % 75.0 % LAB HEMATOLOGY METHOD 06/01/2022 3:27 PM EDT [facility] Lymphocytes % 16.0 % LAB HEMATOLOGY METHOD 06/01/2022 3:27 PM EDT [facility] Monocytes % 5.0 % LAB HEMATOLOGY METHOD 06/01/2022 3:27 PM EDT [facility] Eosinophils % 2.0 % LAB HEMATOLOGY METHOD 06/01/2022 3:27 PM EDT [facility] Basophils % 1.0 % LAB [...] LAB HEMATOLOGY METHOD 06/01/2022 3:27 PM EDT [facility] Immature Granulocytes Absolute 0.05 0.00 [...] BLOOD ORDERABLES Final Resul t [facility] [address] [place] [address] * (ABNORMAL) C-reactive protein (06/01/2022 2:20 PM [...] MD LAB BLOOD ORDERABLES Final Resul t [facility] [address] [place] [address] * (ABNORMAL) Comprehensive metabolic panel (06/01/2022 2:20 PM EDT) Glucose, Plasma 382(H) 74 - 99 mg/dL 06/01/2022 3:42 PM EDT [facility] BUN, Plasma 23 8 - 23 mg/dL 06/01/2022 3:42 PM EDT [facility] Creatinine, Plasma 3.41(H) 0.80 - 1.30 mg/dL 06/01/2022 3:42 PM EDT [facility] BUN/Creatinine Ratio 7 06/01/2022 3:42 PM EDT [facility] Sodium, Plasma 128(L) 136 - 145 mmol/L 06/01/2022 3:42 PM EDT [facility] Potassium, Plasma 3.9 3.7 - 4.8 mmol/L 06/01/2022 3:42 PM EDT [facility] Chloride, Plasma 93(L) 97 - 107 mmol/L 06/01/2022 3:42 PM EDT [facility] CO2, Plasma 26 22 - 29 mmol/L 06/01/2022 3:42 PM EDT [facility] Anion Gap 9 6 - 16 mmol/L 06/01/2022 3:42 PM EDT [facility] Total Calcium, Plasma 8.7(L) 8.9 - 10.2 mg/dL 06/01/2022 3:42 PM EDT [facility] Total Protein 7.6 6.3 - 7.9 g/dL 06/01/2022 3:42 PM EDT [facility] Albumin, Plasma 3.4(L) 3.5 - 5.2 g/dL 06/01/2022 3:42 PM EDT [facility] AST, Plasma 13(L) 19 - 48 U/L 06/01/2022 3:42 PM EDT [facility] ALT, Plasma 8(L) 11 - 41 U/L 06/01/2022 3:42 PM EDT [facility] Alkaline Phosphatase, Plasma 53 40 - 115 U/L 06/01/2022 3:42 PM EDT [facility] Total Bilirubin, Plasma 0.4 0.2 - 1.1 mg/dL 06/01/2022 3:42 PM EDT [facility] eGFRcr 19.4 mL/min/1.7 3m*2 06/01/2022 3:42 PM EDT [facility] Comment: Reported eGFRcr in mL/min/1.73m2 is based the CKD-EPI 2020 equation that does not use a race coefficient. Effective 10/13/21 our laboratory changed the eGFR calculation to the CKD-EPI 202 equation from the previously reported eGFR, based on the MDRD equation. For comparisons between the two equations, please see laboratory website: [email or web address] Blood Venous blood specimen / Unknown 06/01/2022 2:20 PM EDT 06/01/2022 3:19 PM EDT us Ariel Lucas MD LAB BLOOD ORDERABLES Final Resul t [facility] [address] [place] [address] documented in this encounter Visit Diagnoses Diagnosis [...] as of this encounter Care Teams Travel Freight And Passenger Agent Relationship Specialty Start Date End Date Pcp, No [address] [place] [address] PCP - General Family Medicine 09/16/21 06/07/22 Leonard Botello MD [address] [facility] [address] [place] [phone] PCP - General Family Medicine 06/08/22 Yesenia Morrell LPN VALUE-BASED [place] [address] TCM Nurse 07/29/22 08/04/22 Goldie Alan LPN VALUE-BASED TRANSFORMATION PROGRAM TCM Nurse Internal Medicine 08/10/22 08/11/22 Goldie Alan LPN VALUE-BASED TRANSFORMATION PROGRAM TCM Nurse Internal Medicine 08/17/22 09/16/22 Ranjana Elias LPN VALUE-BASED [place] [address] TCM Nurse 01/13/23 02/08/23 Minnie Penn, RN CH-VASCULAR & INTERVENTIONAL RADIOLOGY Registered Nurse 10/01/24 10/01/24 documented as of this encounter
--- OUTSIDE RECORDS SUMMARY | 2025-01-16 11:56 | XMS_ITS | Encounter Summary ---
Author Organization Healthcare Address [address] [place] [address] Care Team Providers Care Deli Bakery Clerk Name Role Phone Pcp, No Primary Care Provider UnavailRanjana Castellanos LEGAL ARCHIVIST Unavailable UnavailYola Bains Unavailable Unavailable Leonard Botello MD Primary Care Provider [phone] Yesenia Morrell LEGAL ARCHIVIST Unavailable Unavailable Goldie Alan LEGAL ARCHIVIST Unavailable UnavailGoldie Kong LEGAL ARCHIVIST Unavailable UnavailRanjana Castellanos LEGAL ARCHIVIST Unavailable UnavailMinnie Martinez RN Unavailable Unavailab le Encounter Details Date Type Department Care Team (Late st Contact Info) Description 04/04/2022 Lab Requisition [facility] [address] [place] [address] Ariel Lucas MD [address] [place] [address] End stage renal disease (CMS/HCC) [...] - 99 mg/dL 04/04/2022 2:29 PM EST [facility] BUN, Plasma 24(H) 8 - 23 mg/dL 04/04/2022 2:[address] [facility] Creatinine, Plasma 5.86(H) 0.80 - 1.30 mg/dL 04/04/2022 2:29 PM [facility] BUN/Creatinine Ratio 4 04/04/2022 2:29 PM [facility] Sodium, Plasma 137 136 - 145 mmol/L 04/04/2022 2:29 PM [facility] Potassium, Plasma 3.8 3.7 - 4.8 mmol/L 04/04/2022 2:29 PM [facility] Comment:Reference range for Serum potassium is 0.2 to 0.5 mmol/L higher than Plasma range. Chloride, Plasma 100 97 - 107 mmol/L 04/04/2022 2:29 PM [facility] CO2, Plasma 25 22 - 29 mmol/L 04/04/2022 2:29 PM [facility] Anion Gap 12 6 - 16 mmol/L 04/04/2022 2:29 PM [facility] Total Calcium, Plasma 8.8(L) 8.9 - 10.2 mg/dL 04/04/2022 2:29 PM [facility] Total Protein 7.9 6.3 - 7.9 g/dL 04/04/2022 2:29 PM [facility] Albumin, Plasma 3.4(L) 3.5 - 5.2 g/dL 04/04/2022 2:29 PM [facility] AST, Plasma 20 19 - 48 U/L 04/04/2022 2:29 PM [facility] ALT, Plasma <5(L) 11 - 41 U/L 04/04/2022 2:29 PM [facility] Alkaline Phosphatase, Plasma 72 40 - 115 U/L 04/04/2022 2:29 PM [facility] Total Bilirubin, Plasma 0.4 0.2 - 1.1 mg/dL 04/04/2022 2:29 PM [facility] eGFRcr 10.1 mL/min/1.7 3m*2 04/04/2022 2:29 PM [facility] Comment: Reported eGFRcr in mL/min/1.73m2 is based the CKD-EPI 2021 equation that does not use a race coefficient. Effective 10/13/21 our laboratory changed the eGFR calculation to the CKD-EPI 2021 equation from the previously reported eGFR, based on the MDRD equation. 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 COVID-19 Rule-Out 04/14/2023 04/14/2023 04/14/2023 8:45 PM EST documented as of this encounter Care Teams Deli Bakery Clerk Relationship Specialty Start Date End Date Pcp, No [address] [place] [address] PCP - General Family Medicine 09/16/21 06/07/22 Leonard Botello MD [address] [facility] [address] [place] [address] PCP - General Family Medicine 06/08/22 Ranjana Elias LPN [employer] [place] [address] TCM Nurse 03/25/22 04/18/22 [place] [address] Civil Draftsman Shift Coordinator 04/12/22 05/05/22 Yesenia Morrell LPN [employer] [place] [address] TCM Nurse 07/29/22 08/04/22 Goldie Alan LPN VALUE-BASED TRANSFORMATION PROGRAM TCM Nurse Internal Medicine 08/10/22 08/11/22 Goldie Alan LPN VALUE-BASED TRANSFORMATION PROGRAM TCM Nurse Internal Medicine 08/17/22 09/16/22 Ranjana Elias LPN [employer] [address] TCM Nurse 01/13/23 02/08/23 Minnie Penn, RN CH-VASCULAR & INTERVENTIONAL RADIOLOGY Registered Nurse 10/01/24 10/01/24 documented as of this encounter
--- OUTSIDE RECORDS SUMMARY | 2025-01-16 11:56 | XMS_ITS | Encounter Summary ---
Author Organization Healthcare Address [address] [place] [address] Care Team Providers Care Swimming Pool Attendant Name Role Phone Pcp, No Primary Care Provider UnavailRanjana Castellanos STEWARD/STEWARDESS Unavailable UnavailYola Bains Unavailable Unavailable Leonard Botello MD Primary Care Provider [phone] Yesenia Morrell STEWARD/STEWARDESS Unavailable Unavailable Goldie Alan STEWARD/STEWARDESS Unavailable UnavailGoldie Kong STEWARD/STEWARDESS Unavailable UnavailRanjana Castellanos STEWARD/STEWARDESS Unavailable UnavailMinnie Martinez RN Unavailable Unavailab le Encounter Details Date Type Department Care Team (Late st Contact Info) Description 04/06/2022 Lab Requisition [facility] Laboratory Services [address] [place] [address] Ariel Lucas MD [address] [place] [address] End stage renal disease (CMS/HCC) [...] LAB HEMATOLOGY METHOD 04/06/2022 2:16 PM EST [facility] RBC Count 2.80(L) 4.60 - 6.10 10*6/uL LAB HEMATOLOGY METHOD 04/06/2022 2:16 PM EST [facility] HGB 8.1(L) 13.7 - 17.5 g/dL LAB HEMATOLOGY METHOD 04/06/2022 2:16 PM EST [facility] HCT 25.4(L) 40.0 - 51.0 % LAB HEMATOLOGY METHOD 04/06/2022 2:16 PM EST [facility] Platelet Count 154(L) 155 - 369 10*3/uL LAB HEMATOLOGY METHOD 04/06/2022 2:16 PM EST [facility] MCV 91 79 - 98 fL LAB HEMATOLOGY METHOD 04/06/2022 2:16 PM EST [facility] MCH 28.9 26.0 - 32.0 pg LAB HEMATOLOGY METHOD 04/06/2022 2:16 PM EST [facility] MCHC 31.9 30.7 - 35.5 g/dL LAB HEMATOLOGY METHOD 04/06/2022 2:16 PM EST [facility] RDW 14.1 11.5 - 14.5 % LAB HEMATOLOGY METHOD 04/06/2022 2:16 PM EST [facility] MPV 11.1 8.8 - 12.5 fL LAB HEMATOLOGY METHOD 04/06/2022 2:16 PM [facility] nRBC 0.0 <=0.0 per 100 WBCs LAB HEMATOLOGY METHOD 04/06/2022 2:16 PM [facility] Differential Type Automated LAB HEMATOLOGY METHOD 04/06/2022 2:16 PM [facility] Neutrophils % 66.0 % LAB HEMATOLOGY METHOD 04/06/2022 2:16 PM EST [facility] Lymphocytes % 23.0 % LAB HEMATOLOGY METHOD 04/06/2022 2:16 PM EST [facility] Monocytes % 5.0 % LAB HEMATOLOGY METHOD 04/06/2022 2:16 PM EST [facility] Eosinophils % 4.0 % LAB HEMATOLOGY METHOD 04/06/2022 2:16 PM EST [facility] Basophils % 1.0 % LAB HEMATOLOGY METHOD 04/06/2022 2:16 PM EST [facility] Immature Granulocytes % 1.0 % LAB HEMATOLOGY METHOD 04/06/2022 2:16 PM EST [facility] Neutrophils Absolute 4.31 1.60 - 6.10 10*3/uL LAB HEMATOLOGY METHOD 04/06/2022 2:16 PM EST [facility] Lymphocytes Absolute 1.49 1.20 - 3.90 10*3/uL LAB HEMATOLOGY METHOD 04/06/2022 2:16 PM EST [facility] Monocytes Absolute 0.33 0.30 - 0.90 10*3/uL LAB HEMATOLOGY METHOD 04/06/2022 2:16 PM EST [facility] Eosinophils Absolute 0.26 0.00 - 0.50 10*3/uL LAB HEMATOLOGY METHOD 04/06/2022 2:16 PM EST [facility] Basophils Absolute 0.03 0.00 - 0.10 10*3/uL LAB HEMATOLOGY METHOD 04/06/2022 2:16 PM EST [facility] Immature Granulocytes Absolute 0.03 0.00 - 0.06 10*3/uL LAB HEMATOLOGY METHOD 04/06/2022 2:16 PM EST [facility] Blood Venous blood specimen / Unknown 04/06/2022 1:35 PM EST 04/06/2022 2:05 PM EST Narrative [facility] - 04/06/2022 2:16 PM EST Therapeutic decision making should be based on absolute values, rather than percentages. us Ariel Lucas MD LAB BLOOD ORDERABLES Final Resul t [facility] [address] [place] [address] documented in this encounter Visit Diagnoses Diagnosis End stage renal disease documented in this encounter Additional Health Concerns Infection Onset Date Last Indicated Resolved Time MRSA 04/15/2022 12/07/2022 VRE 12/07/2022 12/07/2022 COVID-19 Rule-Out 04/14/2023 04/14/2023 04/14/2023 8:45 PM EST documented as of this encounter Care Teams Swimming Pool Attendant Relationship Specialty Start Date End Date Pcp, No [address] [place] [address] PCP - General Family Medicine 09/16/21 06/07/22 Leonard Botello MD [address] [facility] [address] [place] [address] PCP - General Family Medicine 06/08/22 Ranjana Elias LPN [employer]ED [place] [address] TCM Nurse 03/25/22 04/18/22 Yola Ruff [facility] [place] [address] Personal Trainer Oil Pipe Inspector 04/12/22 05/05/22 Yesenia Morrell LPN [employer] [place] [address] TCM Nurse 07/29/22 08/04/22 Goldie Alan LPN VALUE-BASED TRANSFORMATION PROGRAM TCM Nurse Internal Medicine 08/10/22 08/11/22 Goldie Alan LPN VALUE-BASED TRANSFORMATION PROGRAM TCM Nurse Internal Medicine 08/17/22 09/16/22 Ranjana Elias LPN [employer] [place] [address] TCM Nurse 01/13/23 02/08/23 Minnie Penn, RN CH-VASCULAR & INTERVENTIONAL RADIOLOGY Registered Nurse 10/01/24 10/01/24 documented as of this encounter
--- OUTSIDE RECORDS SUMMARY | 2025-01-16 11:56 | XMS_ITS | Encounter Summary ---
Author Organization Healthcare Address [address] [place] [address] Care Team Providers Care Electric Distribution Checker Name Role Phone Pcp, No Primary Care Provider UnavailUrvashi Morocho VEHICLE BODY SANDER Unavailable Unavailable Ranjana Elias VEHICLE BODY SANDER Unavailable UnavailYola Bains Unavailable Unavailable Leonard Botello MD Primary Care Provider [phone] Yesenia Morrell VEHICLE BODY SANDER Unavailable Unavailable Goldie Alan VEHICLE BODY SANDER Unavailable Unavailabl Goldie Mccauley VEHICLE BODY SANDER Unavailable Unavailabl Ranjana Billy VEHICLE BODY SANDER Unavailable UnavailMinnie Martinez RN Unavailable Unavailab le Encounter Details Date Type Department Care Team (Late st Contact Info) Description 07/29/2020 [facility] OTTR Encounter Historical OTTR [address] [place] [address] Rose Vázquez, FOOD TECHNICIAN [address] [facility] [address] [place] [phone] Social History Tobacco Use Types Packs/Day Years Used Date Smoking Tobacco: Never Assessed Sex and Gender Information Value Date Recorded Sex Assigned at Male 03/02/2022 1:43 PM EST Legal Sex Male 8:21 PM EDT Gender Identity Male 03/02/2022 1:43 PM EST Sexual Orientation Straight 03/02/2022 1: 43 PM EST documented as of this encounter Miscellaneous Notes * Progress Notes - Rose Vázquez, VEHICLE MAINTENANCE SUPERVISOR - 07/29/2020 3:29 PM EDT ICE: 59 yo CM w/ ESRD 2/2 DM/ HTN, began HD maybe in 2015 PMH: End-stage renal disease Diabetes mellitus Hypertension Cognitive developmental delay Congestive heart failure Hepatitis-C History of COVID pneumonia Neuropathy PSH: Left AV fistula Bilateral TMA Ear surgery Family history: unknown Social history: He is single, lives in a family penitentiary with a paid caregiver. He denies tobacco, [...] delay, does not have a power of criminal defense attorney. When I asked him what he [...] understanding of all. Updated APM, SCM, OTTR, [place], and [address] calendar. Mailed updated 07/22/20 ICE ppw to pt and cc'd referring MD and dialysis center. * Progress Notes - Shasta Stout - 06/10/2020 9:53 AM EDT Received VM from Sharon Cherelle stating she wrote down incorrect appt info and just realized pt has appt today. She asked for call back at [phone] to r/s pt's appt. Called her back/ No answer, LVMasking for return call to discuss r/s'ing pt's appt. Notified [facility] via Teams message. * Progress Notes - Shasta Stout - 05/20/2020 2:14 PM EST Received kidney txp referral. Called pt and spoke w/ his lamp developer (Sharon Villarreal). Verified pt's address and [...] documented as of this encounter Care Teams Electric Distribution Checker Relationship Specialty Start Date End Date Pcp, No [address] [place] [address] PCP - General Family Medicine 09/16/21 06/07/22 Leonard Botello MD [address] [facility] [address] [place] [address] PCP - General Family Medicine 06/08/22 Urvashi Del Cid LPN VALUE[employer]ED [place] [address] TCM Nurse 09/30/21 10/29/21 Ranjana Elias LPN VAL[employer]ED [place] [address] TCM Nurse 03/25/22 04/18/22 [place] [address] Pain Management Physician Family Worker 04/12/22 05/05/22 Yesenia Morrell LPN VALUE[employer]ED [place] [address] TCM Nurse 07/29/22 08/04/22 Goldie Alan LPN VALUE-BASED TRANSFORMATION PROGRAM TCM Nurse Internal Medicine 08/10/22 08/11/22 Goldie Alan LPN VALUE-BASED TRANSFORMATION PROGRAM TCM Nurse Internal Medicine 08/17/22 09/16/22 Ranjana Elias LPN VALUE[employer]ED [place] [address] TCM Nurse 01/13/23 02/08/23 Minnie Penn, RN CH-VASCULAR & INTERVENTIONAL RADIOLOGY Registered Nurse 10/01/24 10/01/24 documented as of this encounter
--- NOTE | 2025-01-16 14:25 | PC.NURSE ---
Pt refused to be stuck to have IV placed for stress test. Pt did not have stress test today.
== END 2025-01-16 23:59 | disposition home or self-care (01) ==
LOC: RAD 11:50
PROVIDERS: PCP Internal Medicine Adolescent Medicine; Visit Provider Internal Medicine
DX: E78.5 Hyperlipidemia, unspecified (principal); I10 Essential (primary) hypertension; R94.31 Abnormal electrocardiogram [ECG] [EKG]; I25.10 Atherosclerotic heart disease of native coronary artery without angina pectoris; I73.9 Peripheral vascular disease, unspecified

== ENCOUNTER 2025-02-05 14:22 | Outpatient (CLI) | payer MEDICARE, MEDICAID, SELFPAY ==
--- OUTSIDE RECORDS SUMMARY | 2025-02-05 15:50 | XMS_ITS | Clinical Summary ---
Author Organization [facility] Address [address] [place] [address] Phone Care Team Providers Care Dental Amalgam Processor Name Role Phone Efren Black MD Unavailable [ ] Conditions or Problems Problem Name Problem Code Onset Date Status Entry Date Provider Comment Standard Description Annotate Acute renal failure 66133316 (SNOMED CT) 10/11 Active 10/11 Meghanfabi Lopez Acute kidney injury Acquired absence of right toe(s) Z89.421 (ICD-10-CM) 10/11 Active 10/11 Meghan Lopez Acquired absence of other right toe(s) Acute hepatitis C B17.10 (ICD-10-CM) 10/11 Active 10/11 Meghan Lopez Acute hepatitis C without hepatic coma MRSA infection 891996699 (SNOMED CT) 10/11 Active 10/11 Meghan Lopez Methicillin resistant Staphylococcus aureus infection ENTEROCOCCUS INFECTION 156780157 (SNOMED CT) 10/11 Active 10/11 Meghan Lopez Infection caused by Enterococcus Providencia infection B96.89 (ICD-10-CM) 10/11 Active 10/11 Meghan Lopez Other specified bacterial agents as the cause of diseases classified elsewhere Cellulitis, foot, right 642863154 (SNOMED CT) 10/11 Active 10/11 Meghanfabi Floreswell [...] ulcer Other obesity due to excess calories 397614187 (SNOMED CT) 10/11 Active 10/11 Anastacio Schaffer Simple obesity Medications Medication Instructions Start Date Stop Date Generic Name ND Provider NORCO 5-325 MG ORAL TABLET 2 tabs by mouth every 4 hours as needed HYDROCODONE-ACETA MINOPHEN 42646259408 Anastacio Schaffer MIRALAX ORAL PACKET 17 grams by mouth twice daily as needed POLYETHYLENE GLYCOL 3350 [id number] Anastacio Schaffer LEVEMIR 100 UNIT/ML SUBCUTANEOUS SOLUTION 20 units subcutaneous twice daily INSULIN DETEMIR 27132716264 Anastacio Schaffer NOVOLOG 100 UNIT/ML SUBCUTANEOUS SOLUTION INSULIN ASPART 35580359365 Anastacio Schaffer GABAPENTIN 600 MG TABS by mouth twice daily GABAPENTIN 16600700811 Anastacio Schaffer ANTONIETTA-Q 2 ORAL CAPSULE by mouth daily PROBIOTIC PRODUCT 35630505117 Anastacio Schaffer FLOMAX 0.4 MG ORAL CAPSULE by mouth daily TAMSULOSIN HCL 99467607008 Anastacio Schaffer ACID CONTROL MAXIMUM STRENGTH 20 MG TABS by mouth daily FAMOTIDINE 12433819938 Anastacio Schaffer ERGOCALCIFEROL 1.25 MG (37934 UT) CAPS by mouth weekly ERGOCALCIFEROL 94850424114 Anastacio Schaffer DULCOLAX 10 MG SUPP twice daily BISACODYL 49600938738 Anastacio Schaffer CATAPRES 0.1 MG ORAL TABLET CLONIDINE HCL 23778518242 Anastacio Schaffer COREG 12.5 MG TABS by mouth twice daily CARVEDILOL 92250311019 Anastacio Schaffer ASPIR-LOW 81 MG ORAL TABLET DELAYED RELEASE by mouth daily ASPIRIN 57785099314 Anastacio Schaffer AMITRIPTYLINE HCL 50 MG TABS by mouth at bedtime AMITRIPTYLINE HCL 61488184770 Anastacio Schaffer Medications Administered No information available. [...]
--- OUTSIDE RECORDS SUMMARY | 2025-02-05 15:50 | XMS_ITS | Encounter Summary ---
Author Organization Healthcare Address [address] [place] [address] Care Team Providers Care Mimeographer Name Role Phone Pcp, No Primary Care Provider UnavailLeonard New MD Primary Care Provider Yesenia Morrell PRODUCTION MECHANIC TIN CANS Unavailable Unavailable Goldie Alan LPN Unavailable UnavailGoldie Kong LPN Unavailable Unavailabl Ranjana Billy PRODUCTION MECHANIC TIN CANS Unavailable UnavailMinnie Martinez RN Unavailable Unavailab le Encounter Details Date Type Department Care Team (Latest Contact Info) Description 06/01/2022 Lab Requisition [facility] S Laboratory Services [address] [place] [address] Ariel Lucas MD [address] [place] [address] Osteomyelitis of vertebra, thoracic region [...] Assessment Author No 09/29/2021 3:17 PM EDT [place], R uth A * Are you blind or do you have serious difficulty seeing, even when wearing glasses? Answer Date of Assessment Author Yes 09/29/2021 3:17 PM EDT [place], R uth A * Do you have serious difficulty walking or climbing stairs? Answer Date of Assessment Author Yes 09/29/2021 3:17 PM EDT [place], R uth A * Do you have serious difficulty dressing or bathing? Answer Date of Assessment Author Yes 09/29/2021 3:17 PM EDT [place], R uth A * Because of a [...] LAB HEMATOLOGY METHOD 06/01/2022 3:27 PM EDT [facility] RBC Count 3.55(L) 4.60 - 6.10 10*6/uL LAB HEMATOLOGY METHOD 06/01/2022 3:27 PM EDT [facility] HGB 10.0(L) 13.7 - 17.5 g/dL LAB HEMATOLOGY METHOD 06/01/2022 3:27 PM EDT [facility] HCT 30.5(L) 40.0 - 51.0 % LAB HEMATOLOGY METHOD 06/01/2022 3:27 PM EDT [facility] Platelet Count 162 155 - 369 10*3/uL LAB HEMATOLOGY METHOD 06/01/2022 3:27 PM EDT [facility] MCV 86 79 - 98 fL LAB HEMATOLOGY METHOD 06/01/2022 3:27 PM EDT [facility] MCH 28.2 26.0 - 32.0 pg LAB HEMATOLOGY METHOD 06/01/2022 3:27 PM EDT [facility] MCHC 32.8 30.7 - 35.5 g/dL LAB HEMATOLOGY METHOD 06/01/2022 3:27 PM EDT [facility] RDW 14.1 11.5 - 14.5 % LAB HEMATOLOGY METHOD 06/01/2022 3:27 PM EDT [facility] MPV 11.7 8.8 - 12.5 fL LAB HEMATOLOGY METHOD 06/01/2022 3:27 PM EDT [facility] nRBC 0.0 <=0.0 per 100 WBCs LAB HEMATOLOGY METHOD 06/01/2022 3:27 PM EDT [facility] Differential Type Automated LAB HEMATOLOGY METHOD 06/01/2022 3:27 PM EDT [facility] Neutrophils % 75.0 % LAB HEMATOLOGY METHOD 06/01/2022 3:27 PM EDT [facility] Lymphocytes % 16.0 % LAB HEMATOLOGY METHOD 06/01/2022 3:27 PM EDT [facility] Monocytes % 5.0 % LAB HEMATOLOGY METHOD 06/01/2022 3:27 PM EDT [facility] Eosinophils % 2.0 % LAB HEMATOLOGY METHOD 06/01/2022 3:27 PM EDT [facility] Basophils % 1.0 % [...] LAB HEMATOLOGY METHOD 06/01/2022 3:27 PM EDT [facility] Immature Granulocytes Absolute 0.05 0.00 [...] BLOOD ORDERABLES Final Resul t [facility] [address] [place] [address] * (ABNORMAL) C-reactive protein (06/01/2022 2:20 PM [...] MD LAB BLOOD ORDERABLES Final Resul t [facility] [address] [place] [address] * (ABNORMAL) Comprehensive metabolic panel (06/01/2022 2:20 PM EDT) Glucose, Plasma 382(H) 74 - 99 mg/dL 06/01/2022 3:42 PM EDT [facility] BUN, Plasma 23 8 - 23 mg/dL 06/01/2022 3:42 PM EDT [facility] Creatinine, Plasma 3.41(H) 0.80 - 1.30 mg/dL 06/01/2022 3:42 PM EDT [facility] BUN/Creatinine Ratio 7 06/01/2022 3:42 PM EDT [facility] Sodium, Plasma 128(L) 136 - 145 mmol/L 06/01/2022 3:42 PM EDT [facility] Potassium, Plasma 3.9 3.7 - 4.8 mmol/L 06/01/2022 3:42 PM EDT [facility] Chloride, Plasma 93(L) 97 - 107 mmol/L 06/01/2022 3:42 PM EDT [facility] CO2, Plasma 26 22 - 29 mmol/L 06/01/2022 3:42 PM EDT [facility] Anion Gap 9 6 - 16 mmol/L 06/01/2022 3:42 PM EDT [facility] Total Calcium, Plasma 8.7(L) 8.9 - 10.2 mg/dL 06/01/2022 3:42 PM EDT [facility] Total Protein 7.6 6.3 - 7.9 g/dL 06/01/2022 3:42 PM EDT [facility] Albumin, Plasma 3.4(L) 3.5 - 5.2 g/dL 06/01/2022 3:42 PM EDT [facility] AST, Plasma 13(L) 19 - 48 U/L 06/01/2022 3:42 PM EDT [facility] ALT, Plasma 8(L) 11 - 41 U/L 06/01/2022 3:42 PM EDT [facility] Alkaline Phosphatase, Plasma 53 40 - 115 U/L 06/01/2022 3:42 PM EDT [facility] Total Bilirubin, Plasma 0.4 0.2 - 1.1 mg/dL 06/01/2022 3:42 PM EDT [facility] eGFRcr 19.4 mL/min/1.7 3m*2 06/01/2022 3:42 PM EDT [facility] Comment: Reported eGFRcr in mL/min/1.73m2 is based the CKD-EPI 2020 equation that does not use a race coefficient. Effective 10/13/21 our laboratory changed the eGFR calculation to the CKD-EPI 202 equation from the previously reported eGFR, based on the MDRD equation. For comparisons between the two equations, please see laboratory website: [email or web address] Blood Venous blood specimen / Unknown 06/01/2022 2:20 PM EDT 06/01/2022 3:19 PM EDT us Ariel Lucas MD LAB BLOOD ORDERABLES Final Resul t [facility] [address] [place] [address] documented in this encounter Visit Diagnoses Diagnosis [...] documented as of this encounter Care Teams Mimeographer Relationship Specialty Start Date End Date Pcp, No [address] [place] [address] PCP - General Family Medicine 09/16/21 06/07/22 Leonard Botello MD [address] [place] [phone] PCP - General Family Medicine 06/08/22 Yesenia Morrell LPN VALUE-BASED [place] [address] None TCM Nurse 07/29/22 08/04/22 Goldie Alan LPN VALUE-BASED TRANSFORMATION PROGRAM None TCM Nurse Internal Medicine 08/10/22 08/11/22 Goldie Alan LPN VALUE-BASED TRANSFORMATION PROGRAM None TCM Nurse Internal Medicine 08/17/22 09/16/22 Ranjana Elias LPN VALUE-[employer]ED [place] [address] None TCM Nurse 01/13/23 02/08/23 Minnie Penn, RN CH-VASCULAR & INTERVENTIONAL RADIOLOGY None Registered Nurse 10/01/24 10/01/24 documented as of this encounter
--- OUTSIDE RECORDS SUMMARY | 2025-02-05 15:51 | XMS_ITS | Encounter Summary ---
Author Organization Healthcare Address [address] [place] [address] Care Team Providers Care Downstream Biomanufacturing Technician Name Role Phone Pcp, No Primary Care Provider UnavailUrvashi Morocho STOGIE PACKER Unavailable Unavailable Ranjana Elias STOGIE PACKER Unavailable UnavailYola Bains Unavailable Unavailable Leonard Botello MD Primary Care Provider [phone] Yesenia Morrell STOGIE PACKER Unavailable Unavailable Goldie Alan STOGIE PACKER Unavailable Unavailabl Goldie Mccauley STOGIE PACKER Unavailable Unavailabl Ranjana Billy STOGIE PACKER Unavailable UnavailMinnie Martinez RN Unavailable Unavailab le Encounter Details Date Type Department Care Team (Late st Contact Info) Description 07/29/2020 [facility] Committee Historical OTTR [address] [place] [address] Rose Vázquez, SALES AND SERVICE ASSOCIATE [address] [facility] [address] [place] [address] Social History Tobacco Use Types Packs/Day Years Used Date Smoking Tobacco: Never Assessed Sex and Gender Information Value Date Recorded Sex Assigned at Male 03/02/2022 1:43 PM EST Legal Sex Male 8:21 PM EDT Gender Identity Male 03/02/2022 1:43 PM EST Sexual Orientation Straight 03/02/2022 1: 43 PM EST documented as of this encounter Miscellaneous Notes * Progress Notes - Rose Vázquez EYEWEAR CONSULTANT - 07/29/2020 3:29 PM EDT ICE: 59 yo CM w/ ESRD 2/2 DM/ HTN, began HD maybe in 2015 PMH: End-stage renal disease Diabetes mellitus Hypertension Cognitive developmental delay Congestive heart failure Hepatitis-C History of COVID pneumonia Neuropathy PSH: Left AV fistula Bilateral TMA Ear surgery Family history: unknown Social history: He is single, lives in a family fpc with a paid caregiver. He denies tobacco, [...] delay, does not have a power of service correspondent. When I asked him what he understands [...] MRSA Protocol 12/11/2018 08/11/2020 02/21/2022 8:45 AM EST COVID-19 Rule-Out 02/18/2022 02/18/2022 02/18/2022 2:36 PM EST C. difficile Rule-Out 02/18/2022 02/18/20222021 8:45 AM EST Gastrointestinal Rule-Out 02/18/2022 02/18/2022 1:11 PM EST Respiratory Rule-Out 02/21/2022 02/21/2022 022 1:28 PM EST MRSA 04/15/2022 12/07/2022 VRE 12/07/2022 12/07/2022 COVID-19 Rule-Out 04/14/2023 04/14/2023 04/14/2023 8:45 PM EST documented as of this encounter Care Teams Downstream Biomanufacturing Technician Relationship Specialty Start Date End Date Pcp, No [address] [place] [address] PCP - General Family Medicine 09/16/21 06/07/22 [place] [address] [place] [address] [address] [place] [address] PCP - General Family Medicine 06/08/22 Urvashi Del Cid LPN VALUE-[employer]ED [place] [address] None TCM Nurse 09/30/21 10/29/21 Ranjana Elias LPN VALUE-[employer]ED [place] [address] None TCM Nurse 03/25/22 04/18/22 [place] [address] Water Sander Supervisor Building Maintenance 04/12/22 05/05/22 Yesenia Morrell LPN VALUE-BASED [place] [address] None TCM Nurse 07/29/22 08/04/22 Goldie Alan LPN VALUE-BASED TRANSFORMATION PROGRAM None TCM Nurse Internal Medicine 08/10/22 08/11/22 Goldie Alan LPN VALUE-BASED TRANSFORMATION PROGRAM None TCM Nurse Internal Medicine 08/17/22 09/16/22 Ranjana Elias, CHRISTY VALUE-BASED [place] [address] None TCM Nurse 01/13/23 02/08/23 iMnnie Penn, RN CH-VASCULAR & INTERVENTIONAL RADIOLOGY None Registered Nurse 10/01/24 10/01/24 documented as of this encounter
--- OUTSIDE RECORDS SUMMARY | 2025-02-05 15:51 | XMS_ITS | Encounter Summary ---
Author Organization Healthcare Address [address] [place] [address] Care Team Providers Care Forensic Science Technician Name Role Phone Pcp, No Primary Care Provider UnavailRanjana Castellanos EXPRESSIVE THERAPIST Unavailable UnavailYola Bains Unavailable Unavailable Leonard Botello MD Primary Care Provider Yesenia Morrell EXPRESSIVE THERAPIST Unavailable Unavailable Goldie Alan EXPRESSIVE THERAPIST Unavailable Unavailabl Goldie Mccauley EXPRESSIVE THERAPIST Unavailable Unavailabl Ranjana Billy EXPRESSIVE THERAPIST Unavailable UnavailMinnie Martinez RN Unavailable Unavailab le Encounter Details Date Type Department Care Team (Late st Contact Info) Description 04/04/2022 Lab Requisition PAV S Laboratory Services [address] [place] [address] Ariel Lucas MD [address] [place] [address] End stage renal disease (CMS/HCC) [...] - 99 mg/dL 04/04/2022 2:29 PM EST [facility] BUN, Plasma 24(H) 8 - 23 mg/dL 04/04/2022 2:29 PM EST [facility] Creatinine, Plasma 5.86(H) 0.80 - 1.30 mg/dL 04/04/2022 2:29 PM EST [facility] BUN/Creatinine Ratio 4 04/04/2022 2:29 PM [facility] Sodium, Plasma 137 136 - 145 mmol/L 04/04/2022 2:29 PM [facility] Potassium, Plasma 3.8 3.7 - 4.8 mmol/L 04/04/2022 2:29 PM [facility] Comment:Reference range for Serum potassium is 0.2 to 0.5 mmol/L higher than Plasma range. Chloride, Plasma 100 97 - 107 mmol/L 04/04/2022 2:29 PM EST [facility] CO2, Plasma 25 22 - 29 mmol/L 04/04/2022 2:29 PM [facility] Anion Gap 12 6 - 16 mmol/L 04/04/2022 2:29 PM [facility] Total Calcium, Plasma 8.8(L) 8.9 - 10.2 mg/dL 04/04/2022 2:29 PM [facility] Total Protein 7.9 6.3 - 7.9 g/dL 04/04/2022 2:29 PM [facility] Albumin, Plasma 3.4(L) 3.5 - 5.2 g/dL 04/04/2022 2:29 PM [facility] AST, Plasma 20 19 - 48 U/L 04/04/2022 2:29 PM [facility] ALT, Plasma <5(L) 11 - 41 U/L 04/04/2022 2:29 PM [facility] Alkaline Phosphatase, Plasma 72 40 - 115 U/L 04/04/2022 2:29 PM [facility] Total Bilirubin, Plasma 0.4 0.2 - 1.1 mg/dL 04/04/2022 2:29 PM [facility] eGFRcr 10.1 mL/min/1.7 3m*2 04/04/2022 2:29 PM [facility] Comment: Reported eGFRcr in mL/min/1.73m2 is based the CKD-EPI 2021 equation that does not use a race coefficient. Effective 10/13/21 our laboratory changed the eGFR calculation to the CKD-EPI 2021 equation from the previously reported eGFR, based on the MDRD equation. For comparisons between the two equations, please see laboratory website: [email or web address].testmenu.com/[facility] Blood Venous blood specimen / Unknown 04/04/2022 1:30 PM EST 04/04/2022 2:13 PM EST us Ariel Lucas MD LAB BLOOD ORDERABLES Final Resul t [facility] [address] [place] [address] documented in this encounter Visit Diagnoses Diagnosis End stage renal disease documented in this encounter Additional Health Concerns Infection Onset Date Last Indicated Resolved Time MRSA 04/15/2022 12/07/2022 VRE 12/07/2022 12/07/2022 COVID-19 Rule-Out 04/14/2023 04/14/2023 04/14/2023 8:45 PM EST documented as of this encounter Care Teams Forensic Science Technician Relationship Specialty Start Date End Date Pcp, No [address] [place] [address] PCP - General Family Medicine 09/16/21 06/07/22 Leonard Botello MD [address] [facility] [address] [place] [address] PCP - General Family Medicine 06/08/22 Ranjana Elias LPN VALUE-BASED [place] [address] None TCM Nurse 03/25/22 04/18/22 [place] [address] Central Service Tech Portfolio Accountant 04/12/22 05/05/22 Yesenia Morrell LPN VALUE-BASED [place] [address] None TCM Nurse 07/29/22 08/04/22 Goldie Alan LPN VALUE-BASED TRANSFORMATION PROGRAM None TCM Nurse Internal Medicine 08/10/22 08/11/22 Goldie Alan LPN VALUE-BASED TRANSFORMATION PROGRAM None TCM Nurse Internal Medicine 08/17/22 09/16/22 Ranjana Elias LPN VALUE-[employer]ED [place] [address] None TCM Nurse 01/13/23 02/08/23 Minnie Penn, RN CH-VASCULAR & INTERVENTIONAL RADIOLOGY None Registered Nurse 10/01/24 10/01/24 documented as of this encounter
--- OUTSIDE RECORDS SUMMARY | 2025-02-05 15:51 | XMS_ITS | Encounter Summary ---
Author Organization Healthcare Address [address] [place] [address] Care Team Providers Care Chief Engineer Name Role Phone Pcp, No Primary Care Provider UnavailUrvashi Morocho LENS ASSORTER Unavailable Unavailable Ranjana Elias LENS ASSORTER Unavailable UnavailYola Bains Unavailable Unavailable Leonard Botello MD Primary Care Provider [phone] Yesenia Morrell LENS ASSORTER Unavailable Unavailable Goldie Alan LENS ASSORTER Unavailable Unavailabl Goldie Mccauley LENS ASSORTER Unavailable Unavailabl Ranjana Billy LENS ASSORTER Unavailable UnavailMinnie Martinez RN Unavailable Unavailab le Encounter Details Date Type Department Care Team (Late st Contact Info) Description 07/29/2020 [facility] OT[facility] Encounter Historical OTTR [address] [place] [address] Rose Vázquez, FURNITURE MECHANIC [address] [facility] [address] [place] [address] Social History Tobacco Use Types Packs/Day Years Used Date Smoking Tobacco: Never Assessed Sex and Gender Information Value Date Recorded Sex Assigned at Male 03/02/2022 1:43 PM EST Legal Sex Male 8:21 PM EDT Gender Identity Male 03/02/2022 1:43 PM EST Sexual Orientation Straight 03/02/2022 1: 43 PM EST documented as of this encounter Miscellaneous Notes * Progress Notes - Rose Vázquez FIBER DRIER OPERATOR - 07/29/2020 3:29 PM EDT ICE: 59 yo CM w/ ESRD 2/2 DM/ HTN, began HD maybe in 2015 PMH: End-stage renal disease Diabetes mellitus Hypertension Cognitive developmental delay Congestive heart failure Hepatitis-C History of COVID pneumonia Neuropathy PSH: Left AV fistula Bilateral TMA Ear surgery Family history: unknown Social history: He is single, lives in a family retirement with a paid caregiver. He denies tobacco, [...] delay, does not have a power of estate attorney. When I asked him what [...] understanding of all. Updated APM, SCM, OTTR, [place], and [address] calendar. Mailed updated 07/22/20 ICE ppw to pt and cc'd referring MD and dialysis center. * Progress Notes - Shasta Stout - 06/10/2020 9:53 AM EDT Received VM from Sharon Cherelle stating she wrote down incorrect appt info and just realized pt has appt today. She asked for call back at [phone] to r/s pt's appt. Called her back/ No answer, LVMasking for return call to discuss r/s'ing pt's appt. Notified [facility] via Teams message. * Progress Notes - Shasta Stout - 05/20/2020 2:14 PM EST Received kidney txp referral. Called pt and spoke w/ his calciner operator helper (Sharon Villarreal). Verified pt's address and dialysis. [...] RESPIRATORY FLORANOTE: Patient needs MRSA Protocol 12/11/2018 08/11/202002/2102/21/2022 8:[address] COVID-19 Rule-Out 02/18/2022 02/18/2022 02/18/2022 2:36 PM EST C. difficile Rule-Out 02/18/2022 02/18/20222021 8:45 AM EST Gastrointestinal Rule-Out 02/18/2022 02/18/2022 1:11 PM EST Respiratory Rule-Out 02/21/2022 02/21/2022 022 1:28 PM EST MRSA 04/15/2022 12/07/2022 VRE 12/07/2022 12/07/2022 COVID-19 Rule-Out 04/14/2023 04/14/2023 04/14/2023 8:45 PM EST documented as of this encounter Care Teams Chief Engineer Relationship Specialty Start Date End Date Pcp, No [address] [place] [address] PCP - General Family Medicine 09/16/21 06/07/22 Leonard Botello MD [address] [facility] [address] [place] [address] PCP - General Family Medicine 06/08/22 Urvashi Del Cid LPN VALUE-[place] [place] [address] None TCM Nurse 09/30/21 10/29/21 Ranjana Elias LPN VALUE-[employer] [place] [address] None TCM Nurse 03/25/22 04/18/22 [place] [address] Bogger Operator Ladle Car Operator 04/12/22 05/05/22 Yesenia Morrell LPN VALUE-[employer]ED [place] [address] None TCM Nurse 07/29/22 08/04/22 Godlie Alan LPN VALUE-BASED TRANSFORMATION PROGRAM None TCM Nurse Internal Medicine 08/10/22 08/11/22 Goldie Alan LPN VALUE-BASED TRANSFORMATION PROGRAM None TCM Nurse Internal Medicine 08/17/22 09/16/22 Ranjana Elias LPN VALUE-[place] [address] None TCM Nurse 01/13/23 02/08/23 Minnie Penn, RN CH-VASCULAR & INTERVENTIONAL RADIOLOGY None Registered Nurse 10/01/24 10/01/24 documented as of this encounter
--- OUTSIDE RECORDS SUMMARY | 2025-02-05 15:51 | XMS_ITS | Encounter Summary ---
Author Organization Healthcare Address [address] [place] [address] Care Team Providers Care Tie Binder Name Role Phone Pcp, No Primary Care Provider UnavailRanjana Castellanos IMMIGRATION ASSOCIATE Unavailable UnavailYola Bains Unavailable Unavailable Leonard Botello MD Primary Care Provider Yesenia Morrell IMMIGRATION ASSOCIATE Unavailable Unavailable Goldie Alan IMMIGRATION ASSOCIATE Unavailable Unavailabl Goldie Mccauley IMMIGRATION ASSOCIATE Unavailable Unavailabl Ranjana Billy IMMIGRATION ASSOCIATE Unavailable UnavailMinnie Martinez RN Unavailable Unavailab le Encounter Details Date Type Department Care Team (Late st Contact Info) Description 04/06/2022 Lab Requisition PAV S Laboratory Services [address] [place] [address] Ariel Lucas MD [address] [place] [address] End stage renal disease (CMS/HCC) [...] LAB HEMATOLOGY METHOD 04/06/2022 2:16 PM EST [facility] RBC Count 2.80(L) 4.60 - 6.10 10*6/uL LAB HEMATOLOGY METHOD 04/06/2022 2:16 PM EST [facility] HGB 8.1(L) 13.7 - 17.5 g/dL LAB HEMATOLOGY METHOD 04/06/2022 2:16 PM EST [facility] HCT 25.4(L) 40.0 - 51.0 % LAB HEMATOLOGY METHOD 04/06/2022 2:16 PM EST [facility] Platelet Count 154(L) 155 - 369 10*3/uL LAB HEMATOLOGY METHOD 04/06/2022 2:16 PM EST [facility] MCV 91 79 - 98 fL LAB HEMATOLOGY METHOD 04/06/2022 2:16 PM EST [facility] MCH 28.9 26.0 - 32.0 pg LAB HEMATOLOGY METHOD 04/06/2022 2:16 PM EST [facility] MCHC 31.9 30.7 - 35.5 g/dL LAB HEMATOLOGY METHOD 04/06/2022 2:16 PM EST [facility] RDW 14.1 11.5 - 14.5 % LAB HEMATOLOGY METHOD 04/06/2022 2:16 PM EST [facility] MPV 11.1 8.8 - 12.5 fL LAB HEMATOLOGY METHOD 04/06/2022 2:16 PM [facility] nRBC 0.0 <=0.0 per 100 WBCs LAB HEMATOLOGY METHOD 04/06/2022 2:16 PM [facility] Differential Type Automated LAB HEMATOLOGY METHOD 04/06/2022 2:16 PM [facility] Neutrophils % 66.0 % LAB HEMATOLOGY METHOD 04/06/2022 2:16 PM EST [facility] Lymphocytes % 23.0 % LAB HEMATOLOGY METHOD 04/06/2022 2:16 PM [facility] Monocytes % 5.0 % LAB HEMATOLOGY METHOD 04/06/2022 2:16 PM EST [facility] Eosinophils % 4.0 % LAB HEMATOLOGY METHOD 04/06/2022 2:16 PM EST [facility] Basophils % 1.0 % LAB HEMATOLOGY METHOD 04/06/2022 2:16 PM [facility] Immature Granulocytes % 1.0 % LAB HEMATOLOGY METHOD 04/06/2022 2:16 PM EST [facility] Neutrophils Absolute 4.31 1.60 - 6.10 10*3/uL LAB HEMATOLOGY METHOD 04/06/2022 2:16 PM EST [facility] Lymphocytes Absolute 1.49 1.20 - 3.90 10*3/uL LAB HEMATOLOGY METHOD 04/06/2022 2:16 PM EST [facility] Monocytes Absolute 0.33 0.30 - 0.90 10*3/uL LAB HEMATOLOGY METHOD 04/06/2022 2:16 PM [facility] Eosinophils Absolute 0.26 0.00 - 0.50 10*3/uL LAB HEMATOLOGY METHOD 04/06/2022 2:16 PM EST [facility] Basophils Absolute 0.03 0.00 - 0.10 10*3/uL LAB HEMATOLOGY METHOD 04/06/2022 2:16 PM EST [facility] Immature Granulocytes Absolute 0.03 0.00 [...] Final Resul t [facility] [address] [place] [address] documented in this encounter Visit Diagnoses Diagnosis End stage renal disease documented in this encounter Additional Health Concerns Infection Onset Date Last Indicated Resolved Time MRSA 04/15/2022 12/07/2022 VRE 12/07/2022 12/07/2022 COVID-19 Rule-Out 04/14/2023 04/14/2023 04/14/2023 8:45 PM EST documented as of this encounter Care Teams Tie Binder Relationship Specialty Start Date End Date Pcp, No [address] [place] [address] PCP - General Family Medicine 09/16/21 06/07/22 Leonard Botello MD [address] [facility] [address] [place] [address] PCP - General Family Medicine 06/08/22 Ranjana Elias LPN VALUE-BASED [place] [address] None TCM Nurse 03/25/22 04/18/22 [place] [address] Route Rider Supervisor Admissions Evaluator 04/12/22 05/05/22 Yesenia Morrell LPN VALUE-BASED [place] [address] None TCM Nurse 07/29/22 08/04/22 Goldie Alan LPN VALUE-BASED TRANSFORMATION PROGRAM None TCM Nurse Internal Medicine 08/10/22 08/11/22 Goldie Alan LPN VALUE-BASED TRANSFORMATION PROGRAM None TCM Nurse Internal Medicine 08/17/22 09/16/22 Ranjana Elias LPN VALUE-BASED [place] [address] None TCM Nurse 01/13/23 02/08/23 Minnie Penn, RN CH-VASCULAR & INTERVENTIONAL RADIOLOGY None Registered Nurse 10/01/24 10/01/24 documented as of this encounter
--- OUTSIDE RECORDS SUMMARY | 2025-02-05 15:51 | XMS_ITS | Clinical Summary ---
Author Organization Healthcare Address [address] [place] [address] Care Team Providers Care Hospice Volunteer Name Role Phone Leonard Botello MD Primary Care Provider [phone] Allergies No known active allergies Medications * [...] (10/01/2024 6:37 AM EDT): - Transferred [facility] a [facility] and since arrival refusing HD, to eat, participate, or take medications - sent to ED for medical evaluation and need for higher level of assist/unable to care for self/non-compliance - afebrile, VSS, no acute complaints PLAN - PT/OT consult re: placement - legal guardian is his brother, Chris Dooley, #[phone] Chronic osteomyelitis 12/20/2022 BPH (benign prostatic hyperplasia) [...] to caregiver to go with patient to [facility] junior accounting clerk for notary obtaining pass. Sensorineural hearing [...] 10/01/2024 Primary hypertension 08/27/2023 024 Chronic kidney disease-naturalization examiner al and bone disorder 06/07/2023 08/31/2023 [...] evaluation and treatment for inpatient services at [facility] -patient will be contacted pertaining on when to arrive to [facility] for evaluation -Caregiver spoke with celso Ruff (manager social services) and was instructed to contact manager social services for any further questions -Education [...] (02/28/2022): Added automatically from request for surgery [id number] Non-compliance 12/24/2021 10/01/2024 Aches 12/22/2021 09/30/2024 Assessment [...] Encounter PAV A Interventional Radiology [address] [place] [address] Arturo Ramos, RN ESRD (end stage renal disease) ([facility]); Unspecified complication of cardiac and vascular prosthetic device, implant and graft, subsequent encounter Discharge Disposition: Home or Self Care 11/07/2024 Travel from Last 3 Months Immunizations Immunization Administration Dates Next Due Hep A / Hep B 03/24/2014,02/10/2014 Hep B, adult 07/22/2014 Influenza, Injectable, MDCK, trivalent, PF 12/25/2013 Influenza, high-dose, quadrivalent 12/29/2023 Influenza, injectable, quadr ivalent, preservative free 01/09/2023,12/17/2021,01/07/2021,12/28,10/25/2016,12/21/2014 Influenza, seasonal, injectable 12/19/19 18,10/04/2016,01/19/2016,01/09,02/15/2007 Influenza, seasonal, injecta ble, preservative free 01/14/2016,01/15/2013,12/29/2011,12/25,12/03/2008 PPD Skin Test (TB Skin Test) 06/07/2024,09/07/19 24,08/31/2023 [place] COVID-19 Biv alent (Mcleod Cap) 12+ years (don-sucrose) 01/03/2022 Pfizer-Emerging TigersNTech COVID-19 Vac cine (Purple Cap) 12+ 04/07/2021,07/23/2020,07/02/2020 [...] in the past 12 m [facility], were you homeless or living in a half-way (including now)? 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-CAMERA MAKER) to steady your nerves or to get [...] 08/22/2014 03/24/2014, 02/10/2014 [facility]-Depression Screening 09/14/2023 09/13/2022 [id number] Vaccine ( - season) 2024 01/03/2022, 04/07/2021, 07/23/2020, Additional [...] this topic Medical Devices Implanted Type Area Hand Quilter Device Identifier Shelf Expiration Date Model / Serial / Lot Graft Flixene Grd Wall Gds [id number] - [id number] - [id number] Implanted:Qty: 1 on 07/27/2022 by Aravind Gomez MD at [facility] Graft Right: Arm Getinge [employer]sprey Spill [id number] 02/02/2025 [id number] / [id number] / Stent Endoprosthesis Viabahn 8fr [id number] - [id number] Implanted:Qty: 1 on 10/07/2021 by Deven Roldan MD at [facility] [employer]-[id number] 06/05/2024 [id number] / [id number] / [id number] Procedures Procedure Name Priority Date/Time Associated Diagnosis Comments IR ANGIOGRAM ARTERIOVENOUS SHUNT Routine 11/07/2024 3:02 PM EDT ESRD (end stage renal disease) (CMS/HCC) Unspecified complication of cardiac and vascular prosthetic device, implant and graft, subsequent encounter HEMOGLOBIN A1C Add-On 09/30/2024 4:50 PM EDT [...] Ax-Ax Loop AVG, C/O Prolonged Bleeding. TECHNIQUE: Authorizer: Fernanda Singleton M.D Fluoroscopy time: 3.4 min, Air Kerma 8 mGy. Medications: 1% Local lidocaine was administered subcutaneously. Conscious sedation with IV Midazolam 1mg and IV Fentanyl 50 mcg were provided. Continuous physiologic monitoring provided by a qualified healthcare professional. Duration of Conscious Sedation: Time out: 14:31 close out: 14:50. Procedure: Right Ax-Ax Loop AVG Graftogram POBA and DCB GOLF CLUB WEIGHTER of Severe Right Subclavian Vein Stenosis POBA [...] over a guide wire for a 4 Gambian micropuncture sheath. An angiogram was performed from the site of puncture to the superior vena cava. Digital subtraction angiography was performed of the graft from peripheral to central. This revealed Severe Right Subclavian Stenosis Moderate Venous Anastomosis Stenosis Moderate Cannulation Zone Stenosis The micropuncture sheath was exchanged for a 7 Gambian vascular sheath. Via the sheath, A stiff glide 0.035 180 cm wire was placed centrally through a 5 Gambian glide catheter. Angioplasty of the right subclavian [...] angioplastied with 8 mm x 80 mm [place] angioplasty balloon with good response. Digital subtraction [...] RUE Ax-Ax Loop AVG, C/O ProlongedBleeding. TECHNIQUE: Authorizer: Fernanda Singleton M.D Fluoroscopy time: 3.4 min, Air Kerma 8 mGy. Medications: 1% Local lidocaine was administered subcutaneously.Conscious sedation with IV Midazolam 1mg and IV Fentanyl 50 mcg wereprovided. Continuous physiologic monitoring provided by a qualifiedhealthcare professional. Duration of Conscious Sedation: Time out: 14:31 close out: 14:50. Procedure: Right Ax-Ax Loop AVG Graftogram POBA and DCB GOLF CLUB WEIGHTER of Severe Right Subclavian Vein Stenosis POBA [...] micropuncture sheath was exchanged for a 7 Gambian vascular sheath. Viathe sheath, A stiff glide 0.035 180 cm wire was placed centrally through a5 Gambian glide catheter. Angioplasty of the right subclavian [...] MD IMG IR PROCEDURES Final Result * (ABNORMAL) Hemoglobin A1c (09/30/2024 4:50 PM EDT) Hemoglobin A1c 6.3(H) <5.7 % 10/01/2024 12:[address] [facility] Blood Venous blood specimen / Unknown Venipuncture / Unknown 09/30/2024 4:50 PM EDT 09/30/2024 4:[address] [facility] - 10/01/2024 12:06 PM EDT HA1C Interpretive Data: Diagnosis of Diabetes: Diabetic > or = 6.5% Pre-diabetic 5.7 to 6.4% Non-diabetic < or = 5.6% Glycemic Targets for Type I and Type II Diabetics: Non- Adults <7.0% Adults <6.0% Children and Adolescents <7.5% Source: [place] [employer]. Standards of medical care in diabetes,2017. Diabetes Care.2017:40 (suppl 1):S1-S135. us Lala Valdes APRN LAB BLOOD ORDERABLES Final Re sult [facility] [address] [place] [address] from Last 3 Months or Most Recently [...] Patient has decision-making capacity? Yes Care Teams Hospice Volunteer Relationship Specialty Start Date End Date Leonard Botello MD [address] [facility] [address] [place] [id number] PCP - General Family Medicine 06/08/22
[2025-02-05 16:15] LABS: Microscopic, Urine URINE MICROSCOPIC (MICROSCOPIC)
[2025-02-05 18:28] LABS: Bilirubin,Urine Negative (Negative); Color,Urine YELLOW (Yellow); Glucose,Urine (UA) 2+ (Negative); Ketones,Urine Negative (Negative); Leukocyte Esterase,Urine Negative (Negative); PH,Urine 5.5 (5.0-8.5); Protein,Urine Negative (Negative); Specific Gravity, Urine 1.015 (1.005-1.030); Urobilinogen,Urine 0.2 EU/dl (0.2)
== END 2025-02-05 23:59 | disposition home or self-care (01) ==
LOC: LAB.DROPOF 14:27
PROVIDERS: PCP Internal Medicine Adolescent Medicine; Visit Provider Nurse Practitioner Family
DX: R36.9 Urethral discharge, unspecified (principal)
CPT/HCPCS: 81001